=== PATIENT | female | born 1950 | race Caucasian/White ===

== ENCOUNTER → 2016-12-16 | Outpatient (REF) | payer MEDICARE ==
[~2016-12-16] MED LIST: /ESCI20TA PO; /PANT40TA PO; /ROPI1TA PO; AMIT50TA4 PO; AMLO5TAB2 PO; ASPI1TAB PO; ATRO1OPD PO; BACL10TA2 PO; CALC0.5C PO; CALC1CAP31 PO; CALCTAB43 PO; CIPR500T89 PO; CLON-412 PO; CLON0.2T PO; COLA50CA3 PO; DEMA20TA6 PO; DRIS50002 PO; DULO30CA PO; ENAL20TA PO; FERR325T PO; GABA300C3 PO; HUMA100I5 SQ; HYDR-4266 PO; HYDR25T PO; INSUDET SC; INSUHUMDS SC; INSULADS INJ; INSULADS SC; INSULANT SC; LASI40TA PO; LEVO88TA3 PO; LIDO5DIS36 TD; LOPR1TAB6 PO; METF-414 PO; METO-209 PO; METO50TA2 PO; MICR10CA PO; MORP1SOL PO; NITR2PA TD; NYST-6 TOP; NYST10CR TOP; PANT40TA2 PO; ROPI3TAB PO; SPIR25TA2 PO; SYNT88TA2 PO; TOPR25TA PO; TORS20TA2 PO; TRAM50TA2 PO; TYLE325T5 PO; VICO7.5T11 PO; VITA2000 PO; VYTO10TA PO; VYTO10TA41 PO
[2016-12-16 18:49] LABS: TOTAL PROTEIN 5.8 GM/DL (6.4-8.2)
[2016-12-16 18:55] LABS: VITAMIN B12 LEVEL 436 PG/ML (247-911)
[2016-12-16 18:56] LABS: FOLATE 14.9 NG/ML (>5.4)
[2016-12-20 12:57] LABS: ALBUMIN 3.14 GM/DL (3.29-5.55); ALBUMIN % 54.1 % (55.8-66.1); GAMMA GLOBULIN % 13.2 % (11.1-18.8)
[2016-12-21 00:06] LABS: VITAMIN E LEVEL 11.3 mg/L (6.5-21.5)
== END ==
LOC: M LABNEURO 17:06
PROVIDERS: ATTEND Psychiatry & Neurology Neurology
DX: G62.9 Polyneuropathy, unspecified (principal)

== ENCOUNTER → 2016-12-17 | Outpatient (REF) | payer MEDICARE | LOC: M LAB REF 16:58 | PROVIDERS: ATTEND Internal Medicine Nephrology | DX: R19.7 Diarrhea, unspecified (principal) ==

== ENCOUNTER 2017-02-07 19:43 | Emergency (ER) | payer MEDICARE ==
[~2017-02-07] VITALS: Ht 157.5 cm; Wt 84.4 kg
[2017-02-07] MEDS ORDERED: HYDR-3716 PO (20:50)
[2017-02-07] MEDS ORDERED: TOUJ1.2I SC (20:50)
[2017-02-07] MEDS ORDERED: plavix (20:50)
[2017-02-07] MEDS ORDERED: SYNT100T PO (20:50)
[2017-02-07] MEDS ORDERED: ZOFR8TAB PO (20:50)
[2017-02-07] MEDS ORDERED: PLAV75TA38 PO (20:50)
[2017-02-07] MEDS ORDERED: NITR0.4S14 SL (20:50)
--- NOTE | 2017-02-07 21:20 | REPUSA ---
CLINICAL HISTORY: Trauma. TECHNIQUE: Multiple axial CT images were obtained through the brain without IV contrast material. COMMENTS: There is normal configuration of sella turcica. There are no intra or extra-axial collections. There is no mass effect or midline shift. There is no evidence of hematoma formation. No hydrocephalus is p resent. The ventricles are symmetrical. No abnormal calcifications are present. There is diffuse age-appropriate cerebellar and cerebral atrophy with proportionally dilated ventricl es and cortical sulci. There are bilateral periventricular and subcortical white matter hypolucencies compatible with mild c hronic microvascular disease. Otherwise, no significant focal abnormalities are seen either in the posterior fossa or supratentoria l compartment. IMPRESSION: 1. Age-appropriate cerebellar and cerebral atrophy. 2. Mild chronic microvascular disease. 3. No evidence of acute intracranial pathology. Thank you for your kind referral of this patient.
[2017-02-07] MEDS ORDERED: PERCOCET 5MG/325MG TAB PO ONE (22:00)
--- NOTE | 2017-02-07 23:20 | REPUSA ---
CLINICAL HISTORY: Neck pain. Trauma. TECHNIQUE: Multiple axial images were obtained through the cervical spine. Images were also reconstru cted in coronal and sagittal planes. The study was performed without IV contrast. COMMENTS: There is no fracture or spondylolisthesis visualized. The paraspinal soft tissues are unremarkable. T here are no lytic or blastic lesions. Straightening of cervical lordosis is seen, suggesting muscular spasm. There is evidence of minimal m ultilevel disk disease, demonstrated by severe osteophytosis and endplate sclerosis. IMPRESSION: 1. No fracture or spondylolisthesis. 2. Straightening of cervical lordosis is seen, suggesting muscular spasm. 3. Multilevel spondylosis. Thank you for your kind referral of this patient.
--- NOTE | 2017-02-08 00:50 | REPUSA ---
CLINICAL HISTORY: Pain. TECHNIQUE: Multiple axial CT images were obtained without IV contrast material. MPR coronal and sagit benigno sequences are obtained. COMMENTS: There are mild changes of degenerative joint disease. There are changes of calcific tendinosis at the trochanteric insertion of the gluteal tendons. There is subcutaneous soft tissue edema overlying the greater trochanter with associated subcutaneous fat stranding. There is no evidence of fracture or dislocation. There are no lytic or blastic lesions. No soft tissu e masses are present. IMPRESSION: Degenerative joint disease. No fracture. Chronic trochanteric bursitis. Subcutaneous edema and fat stranding with free fluid overlying the greater trochanter. This can secon danis to contusion versus cellulitis. Please evaluate clinically. No drainable/loculated fluid collect ion or soft tissue hematoma. Mild large bowel fecal stasis. Uncomplicated diverticulosis. Distended bladder. Fat containing left inguinal hernia without incarceration. Thank you for your kind referral of this patient.
[2017-02-08] MEDS ORDERED: PERC5TAB6 PO (01:56)
[2017-02-08] MEDS ORDERED: OXYCODONE/APAP 5MG/325MG(BULK FOR ED) 1 TABLET PO ONE (02:00)
[2017-02-08 02:01] VITALS: BP 140/73
--- NOTE | 2017-02-08 08:37 | REP ---
Left shoulder series: Three views. History: Anterior shoulder pain after a fall. Findings: Three views of the left shoulder demonstrate normal alignment of the glenohumeral and acromioclavicular joints. There is mild narrowing of the AC joint. A subcortical cyst is seen in the humeral head. No fracture or subluxation is seen. Impression: No traumatic abnormality noted. Signed by Vel Martinez MD 02/08/2017 01:07 P
--- NOTE | 2017-02-08 08:37 | REP ---
Left elbow series: Four views. History: Elbow pain after a fall. No comparison radiographs. Findings: There is moderate osteoarthritic spurring of the coronoid process, proximal radial head, and trochlea. There is epicondylar spurring medially. There is fragmented spurring at the lateral epicondyle with well corticated ossicles seen. No evidence of joint effusion or acute fracture noted. Impression: Degenerative changes with spurring as above. No fracture seen. Signed by Vel Martinez MD 02/08/2017 01:07 P
--- NOTE | 2017-02-08 08:38 | REP ---
Left hip series: Two views. History: Left hip pain after a fall. Findings: AP and frog-leg views of the left hip show smooth rounded femoral head and intact hip joint space. Some vascular calcification is seen. No fracture is evident. Impression: No fracture noted. Signed by Vel Martinez MD 02/08/2017 01:07 P
== END 2017-02-08 02:18 | disposition home or self-care (01) ==
LOC: M ED 20:48
DX: S70.02XA Contusion of left hip, initial encounter (principal); S40.012A Contusion of left shoulder, initial encounter; W01.0XXA Fall on same level from slipping, tripping and stumbling without subsequent striking against object, initial encounter; Y92.098 Other place in other non-institutional residence as the place of occurrence of the external cause; Y93.89 Activity, other specified; Y99.8 Other external cause status; I12.0 Hypertensive chronic kidney disease with stage 5 chronic kidney disease or end stage renal disease; I25.2 Old myocardial infarction; E11.22 Type 2 diabetes mellitus with diabetic chronic kidney disease; N18.5 Chronic kidney disease, stage 5; G62.9 Polyneuropathy, unspecified; Z79.899 Other long term (current) drug therapy; Z95.5 Presence of coronary angioplasty implant and graft; Z88.8 Allergy status to other drugs, medicaments and biological substances

== ENCOUNTER 2017-03-16 20:33 | Inpatient (IN) | payer MEDICARE ==
[~2017-03-16] VITALS: Ht 157.5 cm; Wt 89.5 kg
[~2017-03-16 20:33] MED LIST changes: -CALC0.5C PO; +CALC0.5C6 PO; +GABA-282 PO; -GABA300C3 PO; +HYDR-3716 PO; +NITR0.4S14 SL; +PERC5TAB6 PO; +PLAV75TA38 PO; +SYNT100T PO; +TOUJ1.2I SC; +ZOFR8TAB PO; +plavix
[2017-03-16] MEDS: traZODone 50 MG TAB PO SCH (21:00)
[2017-03-16 22:22] LABS: DIFF SLIDE NUMBER 350; MEAN CORPUSCULAR HEMOGLOBIN 31.1 pg (27.0-33.0); MEAN CORPUSCULAR VOLUME 100.5 fl (80.0-96.0); PLATELET COUNT, AUTOMATED 146 k/mm3 (150-450); RED CELL DISTRIBUTION WIDTH 16.6 % (11.5-14.5); WHITE BLOOD COUNT 4.9 K/mm3 (4.0-10.0)
[2017-03-16 22:27] LABS: ALBUMIN 2.4 GM/DL (3.2-5.2); CALCIUM LEVEL 7.2 MG/DL (8.8-10.2); CREATININE FOR GFR 2.55 MG/DL (0.55-1.02); GLOMERULAR FILTRATION RATE 19.9 (>45); POTASSIUM SERUM 3.7 MEQ/L (3.5-5.1)
[2017-03-16 22:41] LABS: EOSINOPHILS 3 % (0-5); HYPOCHROMASIA 1+; NUCLEATED RED BLOOD CELL 3 % (0-0); POLYCHROMASIA 1+; SCHISTOCYTES 1+; TEAR DROP CELLS 1+
[2017-03-16 22:42] LABS: ANISOCYTOSIS 1+
[2017-03-17] MEDS ORDERED: ONDANSETRON 4MG/2ML VIAL (J2405) IV PRN (00:15)
[2017-03-17] MEDS ORDERED: VITA100066 PO (00:43)
[2017-03-17] MEDS ORDERED: CALC1TAB17 PO (00:43)
[2017-03-17] MEDS ORDERED: SIMV20TA2 PO (00:43)
[2017-03-17] MEDS ORDERED: ROCA0.5C PO (00:43)
[2017-03-17] MEDS ORDERED: TRAZ50TA4 PO (00:43)
[2017-03-17] MEDS ORDERED: ZETI10TA2 PO (00:43)
[2017-03-17] MEDS ORDERED: TORS100T PO (00:43)
[2017-03-17 01:13] LABS: REASON FOR REVIEW COMPREHENSIVE REVIEW
[2017-03-17] MEDS ORDERED: GLUCOSE 4 GM CHEW TABLET PO PRN (01:15)
[2017-03-17] MEDS ORDERED: NYSTATIN OINTMENT 15 GM TOP PRN ×2 (01:15→01:25)
[2017-03-17] MEDS ORDERED: NITROGLYCERIN 0.4 MG SUBL TABLET SL PRN (01:15)
[2017-03-17] MEDS ORDERED: DEXTROSE 50% 50 ML SYRINGE IV PRN (01:15)
[2017-03-17] MEDS ORDERED: GLUCAGON FOR INJ 1 MG VIAL (J1610) SC PRN (01:15)
[2017-03-17] MEDS ORDERED: ONDANSETRON 4 MG TAB (S0181) PO PRN (01:15)
--- NOTE | 2017-03-17 01:42 | HPEPDOC ---
General Date of Admission Mar 17, 2017 at 00:15 Other Providers lIana Nam Attending Physician: MEETA ROONEY MD Chief Complaint The patient is a 66-year-old female admitted with a reason for visit of Anemia In Esrd. History of Present Illness 66-year-old female with past medical history of end-stage renal disease on hemodialysis Wednesdays and Fridays, CAD, congestive heart failure, hypertension, diabetes mellitus, hypothyroidism, dyslipidemia, anemia of chronic disease, and GERD presented to the ER after she went to dialysis earlier today and was found to have a low hemoglobin level. The patient states that she was told to go to the ER for further evaluation of her anemia and blood transfusion. Upon arrival here in the ER, the patient's hemoglobin level was noted to be 6.7. At baseline, the patient's hemoglobin level appears to be around 10. The patient denies noting any zaira bleeding, however she does state that she has noticed darker color stools over the last few weeks. She states that she has never had an EGD before, but does note having a colonoscopy done 15 + years ago which she states was unremarkable. Also of note, the patient states that she has been feeling increasingly weak over the last 1 month and has had several falls during this time, which required evaluation here in the ED on February 07. The patient states that her generalized weakness, lethargy, and the aforementioned falls caused her to miss one week of dialysis last week. She notes that she has subsequently gained about 15 pounds because of the missed dialysis sessions. However, she does note that she did go to dialysis this week , but her sessions were limited due to cramping. At this time, the patient denies any acute complaints of fevers, chills, shortness of breath, chest pain, palpitations, abdominal pain, or any nausea/vomiting/diarrhea. Home Medications Scheduled ([facility]) 300 Unit/Ml Inj 85 UNIT SC BID (Reported) (Calcium/Vitamin D 500-200 mg-Unit) 1 Tab Tab 1 TAB PO DAILY (Reported) Calcitriol (Rocaltrol) 0.5 Mcg Cap 0.5 MCG PO 5XW (Reported) Cholecalciferol (Vitamin D) 1,000 Unit Tab 2,000 UNIT PO DAILY (Reported) Clopidogrel Bisulfate (Plavix) 75 Mg Tab 75 MG PO DAILY (Reported) Duloxetine Hcl (Cymbalta) 30 Mg Cap 30 MG PO DAILY (Reported) Ezetimibe (Zetia) 10 Mg Tab 10 MG PO QHS (Reported) Ferrous Sulfate (Ferrous Sulfate) 325 Mg Tab 325 MG PO 3XW (Reported) TUESDAY, TUESDAY, TUESDAY Gabapentin (Gabapentin) 300 Mg Cap 300 MG PO BID (Reported) Insulin Human Lispro (Humalog) 1 Units/0.01 Ml Inj 1 DOSE SC ACHS (Reported) PER SLIDING SCALE Levothyroxine Sodium (Synthroid) 100 Mcg Tab 100 MCG PO DAILY (Reported) Metoprolol Tartrate (Metoprolol Tartrate) 50 Mg Tab 50 MG PO BID (Reported) Pantoprazole Sodium (Pantoprazole Sodium) 40 Mg Tab 40 MG PO DAILY (Reported) Ropinirole Hydrochloride (Ropinirole HCl) 3 Mg Tab 6 MG PO TID (Reported) Simvastatin (Simvastatin) 20 Mg Tab 20 MG PO QHS (Reported) Torsemide (Torsemide) 100 Mg Tab 100 MG PO BID (Reported) Trazodone HCl (Trazodone HCl) 50 Mg Tab 50 MG PO QHS (Reported) Scheduled PRN Nitroglycerin (Nitroglycerin) 0.4 Mg Sub 0.4 MG SL NITRO PRN PRN CHEST PAIN ( Reported) Nystatin (Nystatin Oint) 1 Dose/15 Gm Oint 1 DOSE TOP DAILY PRN PRN RASH/ ITCHING (Reported) GROIN AREA Ondansetron HCl (Zofran) 8 Mg Tab 8 MG PO Q6HP PRN PRN NAUSEA (Reported) Tramadol HCl (Tramadol HCl) 50 Mg Tab 100 MG PO BID PRN PRN PAIN (Reported) Allergies Coded Allergies: Pregabalin (Verified Adverse Reaction, Intermediate, CONFUSION, 03/16/17) Past Medical History Medical History As noted in HPI. Surgical History Dialysis graft placement Family History Significant Family History: No pertinent family hx Social History * Smoker: Denies Alcohol: Denies Drugs: denies Review of Symptoms Other systems 10 point review of systems negative unless otherwise specified in HPI. Physical Examination General Exam: Positive: Alert, Cooperative, No Acute Distress ENT Exam: Positive: Atraumatic, Mucous membr. moist/pink Neck Exam: Negative: JVD Chest Exam: Positive: Diminished, Rales (faint bibasilar rales appreciated) Heart Exam: Positive: Normal S1, Normal S2, Rate Normal Abdomen Exam: Positive: Soft, Negative: Tenderness Extremity Exam: Positive: Swelling (2+ pitting edema noted in the lower extremities bilaterally.), Negative: Tenderness Psych Exam: Positive: Oriented x 3 Vital Signs Vital Signs Date Time Temp Pulse Resp B/P Pulse Ox O2 Delivery O2 Flow Rate FiO2 03/17/17 00:57 98.3 66 18 138/63 96 Nasal Cannula 4 Laboratory Data Labs 24H Laboratory Tests 2 03/16/17 21:58: Albumin 2.4L, Blood Urea Nitrogen 28H, Creatinine 2.55H, Sodium Level 142, Potassium Level 3.7, Chloride Level 99, Carbon Dioxide Level 36H, Anion Gap 7L, Anisocytosis 1+, Atypical Lymphocytes 4, Basophilic Stippling 2+, Calcium Level 7.2L, Eosinophils (Manual) 3, Glomerular Filtration Rate 19.9L, Hypochromasia 1+ , Lymphocytes (Manual) 21, Macrocytosis 1+, Monocytes (Manual) 5, Neutrophils 67 , Nucleated Red Blood Cells 3H, Phosphorus Level 3.0, Platelet Estimate DECREASED, Polychromasia 1+, Schistocytes 1+, Tear Drop Cells 1+ 03/17/17 01:02: Differential Pathologist's Review COMPREHENSIVE REVIEW, Differential Slide Review Report, Peripheral Blood Smear Path Consult PERIPHERAL SMEAR CBC/BMP Laboratory Tests 03/16/17 21:58 Anion Gap 7 L, Red Blood Count 2.14 L, Mean Corpuscular Volume 100.5 H, Mean Corpuscular Hemoglobin 31.1, Mean Corpuscular Hemoglobin Concent 31.0 L, Red Cell Distribution Width 16.6 H Plan / VTE VTE Prophylaxis Ordered?: Yes (TEDs) Plan Plan Symptomatic anemia possibly secondary to underlying chronic kidney disease versus possible GI Bleed Admit to med/surg unit Initial hemoglobin noted to be 6.7 Baseline hemoglobin around 10 from 5 months ago No zaira source of bleeding according to the patient, however the patient states that she has been having darker colored stools The patient's Plavix has been held PT, PTT levels ordered Iron studies, stool occult for blood ordered 2 units of packed red blood cells have been ordered to be transfused Consider surgical consultation for possible EGD/colonoscopy if the patient's hemoglobin continues to downward trend End-stage renal disease on hemodialysis Mondays, Wednesdays, and Fridays The patient does appear to have quite a bit of edema as she has missed one week of dialysis sessions last week, and her sessions this week have been limited secondary to cramping Nephrology consult in the a.m. for further evaluation History of falls Physical therapy consulted Hx of CAD, CHF Plavix on Hold / Above Cont Statin, Torsemide, metoprolol Hypertension Continue current regimen Insulin-dependent diabetes mellitus Patient takes 85 units SC of Toujeo BID Given the patient's decreased appetite and weakness, I will start her on Levemir 40 units twice a day for now, consider titration as tolerated Insulin sliding scale for additional coverage Restless leg syndrome Continue ropinirole Diabetic neuropathy Continue duloxetine Hypothyroidism Continue levothyroxine DVT prophylaxis-TEDs The patient will be admitted under the service of Dr. Rooney, who will begin to follow the patient on 03/17/17. JENISE JAIME MD Mar 17, 2017 01:42
[2017-03-17] MEDS ORDERED: BENZONATATE 100 MG CAP PO ONE (02:00)
[2017-03-17] MEDS ORDERED: diphenhydrAMINE 25 MG CAP PO PRN (02:30)
[2017-03-17 02:49] LABS: PERCENT SATURATION 21.1 % (13.2-37.4)
[2017-03-17 03:00] VITALS: BP 133/64
[2017-03-17] MEDS: SIMVASTATIN 20 MG TAB PO SCH ×2 (03:44→20:58)
[2017-03-17] MEDS: EZETIMIBE 10 MG TAB (ZETIA) PO SCH ×2 (03:44→20:58)
[2017-03-17 05:30] LABS: MEAN CORPUSCULAR HEMOGLOBIN 31.9 pg (27.0-33.0); WHITE BLOOD COUNT 6.5 K/mm3 (4.0-10.0)
[2017-03-17 05:37] LABS: INR 1.06
[2017-03-17 05:56] LABS: ALBUMIN 2.5 GM/DL (3.2-5.2); CALCIUM LEVEL 6.9 MG/DL (8.8-10.2); CREATININE FOR GFR 3.21 MG/DL (0.55-1.02); GLOMERULAR FILTRATION RATE 15.3 (>45); PHOSPHORUS LEVEL 3.6 MG/DL (2.5-4.9); POTASSIUM SERUM 4.3 MEQ/L (3.5-5.1)
[2017-03-17 06:00] VITALS: BP 166/74
[2017-03-17] MEDS: LEVOTHYROXINE 0.1 MG TAB (100 MCG) PO SCH (06:30)
[2017-03-17] MEDS: traMADol 50 MG TAB PO PRN (06:30)
[2017-03-17] MEDS: HumaLOG INSULIN (NovoLOG) PER UNIT SC SCH ×4 (08:15→20:56)
[2017-03-17] MEDS: VITAMIN D 1,000 INTERNATIONAL UNITS TABLET PO SCH (08:16)
[2017-03-17] MEDS: rOPINIRole 1MG TAB PO SCH ×3 (08:16→20:57)
[2017-03-17] MEDS: TORSEMIDE 100 MG TAB PO SCH ×2 (08:16→20:57)
[2017-03-17] MEDS: PANTOPRAZOLE 40MG TAB (PROTONIX) PO SCH (08:16)
[2017-03-17] MEDS: GABAPENTIN 300 MG CAP PO SCH ×2 (08:16→20:58)
[2017-03-17] MEDS: DULoxetine 30 MG CAP (CYMBALTA) PO SCH (08:16)
[2017-03-17] MEDS: METOPROLOL TART 50 MG TAB PO SCH ×2 (08:16→20:58)
[2017-03-17] MEDS: CALCITRIOL 0.25 MCG CAP (S0169) PO SCH (08:16)
[2017-03-17] MEDS: LEVEMIR (INSULIN DETEMIR) 1 UNITS/0.01ML SC SCH ×2 (08:17→20:57)
--- NOTE | 2017-03-17 08:20 | REP ---
PA and lateral chest: Comparison is 02/25/2016. There is chronic cardiomegaly. However, the current study there is interstitial coarsening, particularly in the upper lobes, as an interval change compatible with pulmonary vascular engorgement. There is no zaira pulmonary edema. No pleural effusions. There are no focal infiltrates. Impression: Chronic cardiomegaly. Acute pulmonary vascular engorgement. Signed by Aureliano Banks MD 03/17/2017 08:12 A
--- NOTE | 2017-03-17 08:44 | ECGEPIP ---
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
[2017-03-17] MEDS ORDERED: FERROUS SULFATE 325MG TAB PO SCH (09:00)
[2017-03-17] MEDS: ACETAMINOPHEN TAB 650MG DOSE (2X325MG) PO PRN (10:53)
[2017-03-17 11:30] LABS: FOLATE 12.1 NG/ML (>5.4)
[2017-03-17] MEDS ORDERED: DARBEPOETIN 300 MCG/0.6 ML *DIALYSIS* SYRINGE (J0882) IV SCH (11:45)
--- NOTE | 2017-03-17 12:29 | IPN ---
DATE OF VISIT: 03/17/2017 Mrs. Hernandez is seen during hemodialysis this morning. She is lying in the bed without any acute distress. However, she is somewhat restless. We are trying to ultrafiltrate her for 3 liters of fluid removal today due to decompensated volume status. She has generalized edema and dyspnea on exertion. On physical exam, temperature 98 degrees Fahrenheit, heart rate 68 per minute and respiratory rate 18 per minute. Blood pressure 166/74 mmHg and oxygen saturation 94%. Patient has generalized edema and probably mild ascites. She also has pulmonary rales and diminished breath sounds bilaterally. Her neck veins are distended and heart sounds are regular. PROBLEMS: 1. Decompensated volume status with congestive heart failure and end-stage renal disease. Patient is currently being dialyzed and we are ultrafiltrating her for 3 liters of fluid removal today. She is tolerating it well so far. 2. End-stage renal disease. Patient is regularly dialyzed on Tuesday, Tuesday and Tuesday schedule. She did miss dialysis last week. However, she was dialyzed this week on Tuesday and Tuesday. We will schedule her regular dialysis for tomorrow. 3. Anemia. She has symptomatic anemia and received 1 unit of packed red blood cells (RBCs) last evening. She is receiving second unit of packed RBCs today during dialysis. We will recheck her complete blood count (CBC) tomorrow. We will start her on Aranesp 300 mcg once a week and will give her first dose tomorrow. 4. Hypertension. Blood pressure is likely to improve with volume status correction and we will continue with current antihypertensives without any changes. All other issues are being addressed by hospitalist service.
--- NOTE | 2017-03-17 12:53 | CR ---
DATE OF CONSULTATION: 03/17/2017 REFERRING PHYSICIAN: Bonnie Rooney MD Reason for consult is severe anemia, volume overload and generalized weakness in this lady with multiple chronic medical problems. HISTORY OF PRESENT ILLNESS: Mrs. Hernandez is a 66-year-old female with multiple chronic medical problems including insulin-requiring diabetes, hypothyroidism, dyslipidemia, coronary artery disease, congestive heart failure, hypertension, gastroesophageal reflux disease, diabetic retinopathy, legally blind and end-stage renal disease. Patient has history of advanced renal failure and congestive heart failure which was decompensated and not controlled medically so hemodialysis was initiated a few months ago. Patient has been quite irregular with her dialysis treatments and at times she does not show up even for a whole week. She reports frequent falls at home and has developed generalized edema and decompensated volume status. Yesterday, she was found to have a calcium level of 6.0 and hemoglobin 6.7 due to which she was sent to emergency room. She has been admitted with a plan for frequent hemodialysis treatments to correct her volume status, transfuse her and also fix her electrolytes. PAST MEDICAL AND SURGICAL HISTORY: 1. Insulin-requiring diabetes. 2. Hypertension. 3. Dyslipidemia. 4. Hypothyroidism. 5. End-stage renal disease. 6. Coronary artery disease with prior myocardial infarction (CT), coronary artery bypass graft (CABG). 7. History of congestive heart failure. 8. History of anemia of chronic kidney disease. 9. History of severe peripheral neuropathy. 10. Diabetic retinopathy, legally blind. 11. History of depression. MEDICATIONS: Her outpatient medications include: - Toujeo 85 units twice a day - calcium 500 mg twice a day - calcitriol 0.5 mcg with each hemodialysis - vitamin D 1000 units daily - Plavix 75 mg daily - Cymbalta 30 mg daily - Zetia 10 mg daily - ferrous sulfate 325 mg daily - gabapentin 300 mg twice a day - Humalog insulin per sliding scale - levothyroxine 100 mcg daily - Protonix 40 mg daily - Requip 3 mg three times a day - simvastatin 20 mg daily - torsemide 100 mg twice a day - trazodone 50 mg at bedtime - She also uses nitroglycerin as needed and Zofran for nausea as needed. ALLERGIES: There is allergy to PREGABALIN. Past surgical history is significant for AV fistula creation and a Perma-Cath placement prior to that. Family history is negative for end-stage renal disease. PERSONAL AND SOCIAL HISTORY: Patient is and lives with her family. She does not smoke or drink. She denies any drug use. REVIEW OF SYSTEMS: Patient denies any fever or chills. She has been feeling quite weak and has fallen multiple times. She denies any headache. Ears, nose and throat are unremarkable. Cardiovascular system is significant for generalized edema and shortness of breath on exertion. Respiratory system negative for cough or hemoptysis. Gastrointestinal (GI) system is significant for poor appetite. She denies any nausea, vomiting or diarrhea. There is no history of rectal bleeding or black colored stools. Genitourinary () system is negative for dysuria or hematuria. There is no known history of kidney stones. Musculoskeletal system is significant for generalized edema and multiple falls. She reports severe pain in her left shoulder and back. She also has history of peripheral neuropathy. Neurological system is negative for seizures or stroke. Hematological system significant for severe anemia. Psychosocial system significant for depression and anxiety. Endocrine system is significant for diabetes, hypothyroidism and secondary hyperparathyroidism. PHYSICAL EXAMINATION: Patient is awake and alert at the time of my visit. Temperature 98 degrees Fahrenheit, heart rate 68 per minute and respiratory rate 18 per minute. Blood pressure 166/74 mmHg and oxygen saturation 94% on room air. Head is atraumatic. There is mild erythema on her cheeks. She is legally blind. Sclera is anicteric and pupils are reactive to light. Ears, nose and throat are unremarkable. Neck veins are quite prominent. Her neck is supple and mild to moderate thyroid enlargement is also noted. Heart sounds are regular and without pericardial friction rub. Lungs have diminished breath sounds bilaterally with basilar rales. Abdomen soft, distended and nontender. She most likely has ascites. Extremities have no cyanosis or clubbing. She has a left forearm AV fistula. She has generalized edema on lower extremities all the way up to waist. Neurologically, she is awake, alert and oriented times three. She is legally blind. LABORATORY DATA: Last evening her WBC count was 4.9, hemoglobin 6.7 and hematocrit 21.5. Platelets 146. She received 1 unit of packed RBCs and this morning, hemoglobin is 7.5 and hematocrit 24.1. INR was 1.06. Sodium 141 and potassium 4.3. CO2 37, BUN 36 and creatinine 3.21. Calcium level 6.9 and phosphorus 3.6. Albumin 2.5. Chest x-ray showed cardiomegaly and bilateral vascular congestion. PROBLEMS: 1. Decompensated volume status. She does have history of congestive heart failure and also noncompliance with dialysis treatment. She has developed massive volume overload. Our plan is to dialyze her daily for at least 3-4 liters of fluid removal as tolerated. She does get cramps with aggressive fluid removal and we are unable to remove more than 4 liters per day. Patient should remain on 2 grams sodium diet and fluid restriction of 1500 mL per day. 2. Anemia. Most likely this is related to end-stage renal disease, missed dialysis treatments and medications. Her iron level was appropriate last evening. Patient is going to be transfused one more unit of packed RBCs today during dialysis and we will start with Aranesp 300 mcg once a week with first dose to be given on 03/18/2017. 3. End-stage renal disease. Patient is dialysis dependent and has been noncompliant. She was dialyzed yesterday prior to admission. We will plan to dialyze her frequently to correct her volume status over next few days. 4. Hypertension. Blood pressure is likely to improve as her volume status improves. I suggest to not increase her medications until her volume status is corrected. She does get severe cramps and hypotension during dialysis. 5. Secondary hyperparathyroidism. Patient has been placed on calcitriol and vitamin D. We will check her intact PTH level. Thank you for involving me in the care of Mrs. Hernandez. I will follow her along with you.
[2017-03-17 14:00] VITALS: BP 172/72
[2017-03-17] MEDS ORDERED: CYCLOBENZAPRINE 5MG TABLET PO ONE (14:00)
[2017-03-17] MEDS ORDERED: FLEET ENEMA PR PRN (14:00)
[2017-03-17] MEDS ORDERED: CYCLOBENZAPRINE 5MG TABLET PO PRN (14:00)
[2017-03-17] MEDS ORDERED: ANALGESIC BALM CRM 120 GM TOP SCH (18:15)
[2017-03-17] MEDS ORDERED: ANALGESIC BALM CRM 120 GM TOP PRN (18:15)
[2017-03-17] MEDS ORDERED: NYSTATIN OINTMENT 15 GM TOP SCH (18:15)
[2017-03-17 20:10] VITALS: BP 159/70
[2017-03-17] MEDS: traZODone 50 MG TAB PO SCH (20:59)
[2017-03-18] MEDS: PANTOPRAZOLE 40MG TAB (PROTONIX) PO SCH (06:03)
[2017-03-18] MEDS: LEVOTHYROXINE 0.1 MG TAB (100 MCG) PO SCH (06:03)
[2017-03-18] MEDS: GABAPENTIN 300 MG CAP PO SCH ×2 (06:04→20:32)
[2017-03-18] MEDS: DULoxetine 30 MG CAP (CYMBALTA) PO SCH (06:04)
[2017-03-18] MEDS: VITAMIN D 1,000 INTERNATIONAL UNITS TABLET PO SCH (06:04)
[2017-03-18] MEDS: TORSEMIDE 100 MG TAB PO SCH ×2 (06:05→20:30)
[2017-03-18] MEDS: rOPINIRole 1MG TAB PO SCH ×3 (06:05→20:31)
[2017-03-18 06:10] VITALS: BP 140/76
[2017-03-18] MEDS: CALCITRIOL 0.25 MCG CAP (S0169) PO SCH (06:10)
[2017-03-18] MEDS: METOPROLOL TART 50 MG TAB PO SCH ×2 (06:13→20:32)
[2017-03-18] MEDS: FERROUS SULFATE 325MG TAB PO SCH (06:15)
[2017-03-18 06:28] LABS: MEAN CORPUSCULAR HEMOGLOBIN 31.6 pg (27.0-33.0); MEAN CORPUSCULAR HGB CONC 31.9 g/dl (32.0-36.5); RED CELL DISTRIBUTION WIDTH 18.9 % (11.5-14.5); WHITE BLOOD COUNT 6.4 K/mm3 (4.0-10.0)
[2017-03-18 06:55] LABS: ALBUMIN 2.4 GM/DL (3.2-5.2); CALCIUM LEVEL 7.2 MG/DL (8.8-10.2); CREATININE FOR GFR 4.19 MG/DL (0.55-1.02); GLOMERULAR FILTRATION RATE 11.2 (>45); PHOSPHORUS LEVEL 4.4 MG/DL (2.5-4.9); POTASSIUM SERUM 4.1 MEQ/L (3.5-5.1)
[2017-03-18] MEDS: HumaLOG INSULIN (NovoLOG) PER UNIT SC SCH ×4 (07:43→20:33)
[2017-03-18] MEDS: LEVEMIR (INSULIN DETEMIR) 1 UNITS/0.01ML SC SCH ×2 (07:44→20:38)
--- NOTE | 2017-03-18 10:40 | IPNPDOC ---
Subjective Date Seen The patient was seen on 03/18/17. Subjective Chief Complaint/HPI The patient is a 66-year-old female admitted with a reason for visit of Anemia In Esrd. Events since last encounter patient had UF yesterday going for HD today , received 3 units of prbc , no overt bleeding any where. complains of low back pain radiating down both legs through the back down to the foot. also complains of severe left shoulder pain and inability to elevate it at all. No fever or chills, no chest pain , has mild SOB , no cough or phlegm , no nausea or vomiting or diarrhea. Objective Physical Examination General Exam: Positive: Alert, Cooperative, No Acute Distress Eye Exam: Positive: Conjunctiva & lids normal, EOMI, PERRLA, Negative: Sclera icteric ENT Exam: Positive: Atraumatic, Mucous membr. moist/pink Neck Exam: Negative: JVD Chest Exam: Positive: Diminished, Rales (faint bibasilar rales appreciated) Heart Exam: Positive: Normal S1, Normal S2, Rate Normal Abdomen Exam: Positive: Normal bowel sounds, Soft, Negative: Tenderness Extremity Exam: Positive: Edema, Swelling (2+ pitting edema noted in the lower extremities bilaterally.), Negative: Tenderness Skin Exam: Positive: Nl turgor and temperature, Negative: Breakdown, Rash Psych Exam: Positive: Oriented x 3 Assessment /Plan Problems (1) Anemia in ESRD (end-stage renal disease) Status: Acute Problem Text: acute on chronic anemia due to compliance with HD no has not been getting epogen or iron at the HD unit. got 3 units of prbc will receive 1 more today during HD. (2) Fluid overload Status: Acute Problem Text: due to non compliance with HD , Has gained about 10 kgs mrom her estimated dry weight. getting alternating HD and UF . (3) Fall on same level Status: Acute Problem Text: 2-3 falls over the last one month , Has severe peripheral neuropathy , also legally blind , Has poor balance and with non compliance with HD has gained 10 kgs causing severe difficulty in ambulation. Las fall about 1 week ago. complaining of low back pain radiating down the legs. will get CT L-S spine and ct pelvis. (4) Diabetes Status: Chronic (5) Hypertension Status: Chronic (6) Diabetic neuropathy Status: Chronic (7) JUAN on CPAP Status: Chronic (8) Depression Status: Chronic (9) Hyperlipidemia Status: Chronic (10) Hypothyroidism Status: Chronic (11) GERD (gastroesophageal reflux disease) Status: Chronic (12) CAD (coronary artery disease) Status: Chronic (13) Hx of CABG Status: Chronic (14) Diabetic retinopathy Status: Chronic Problem Text: patient is legally blind. (15) Pulmonary hypertension Status: Chronic Problem Text: has chronic right sided heart failure now worse due to fluid overload. (16) Diastolic CHF Status: Acute Problem Text: acute on chronic diastolic chf and right heart failure due to non compliance with HD and fluid overload. COntinue HD and UF as per nephrology . Plan/VTE VTE Prophylaxis Ordered?: Yes (TEDs) VS, I&O, 24H, Fishbone Vital Signs/I&O Vital Signs Date Time Temp Pulse Resp B/P Pulse Ox O2 Delivery O2 Flow Rate FiO2 03/18/17 06:13 58 140/76 03/18/17 06:10 97.7 19 95 Room Air 03/17/17 02:49 4 I&O- Last 24 Hours up to 6 AM 03/18/17 06:00 Intake Total 960 ml Output Total 3800 ml Balance -2840 ml Laboratory Data 24H LABS Laboratory Tests 2 03/17/17 12:48: Bedside Glucose (Misc Panel) 203H 03/17/17 16:18: Bedside Glucose (Misc Panel) 265H 03/17/17 20:11: Bedside Glucose (Misc Panel) 273H 03/18/17 06:05: Albumin 2.4L, Blood Urea Nitrogen 55#H, Creatinine 4.19H, Sodium Level 141, Potassium Level 4.1, Chloride Level 101, Carbon Dioxide Level 34H, Anion Gap 6L , Calcium Level 7.2L, Glomerular Filtration Rate 11.2L, Phosphorus Level 4.4# CBC/BMP Laboratory Tests 03/18/17 06:05 Anion Gap 6 L, Red Blood Count 2.52 L, Mean Corpuscular Volume 99.0 H, Mean Corpuscular Hemoglobin 31.6, Mean Corpuscular Hemoglobin Concent 31.9 L, Red Cell Distribution Width 18.9 H MEETA BARGER MD Mar 18, 2017 10:40
--- NOTE | 2017-03-18 12:50 | IPN ---
DATE: 03/18/2017 Mrs Hernandez is seen this morning on her bedside in hemodialysis. She underwent ultrafiltration yesterday and 3 liters of fluid was removed. After the procedure, she had some muscle cramps and cyclobenzaprine 5 mg was given without much benefit. She is feeling better today and denies any muscle cramps now. She has no chest pain or dyspnea; however, she still has generalized edema. She denies any nausea, vomiting, diarrhea, rectal bleeding or black colored stools. On physical examination, temperature 97.7 degrees Fahrenheit, heart rate 58 per minute and respiratory rate 20 per minute. Blood pressure 140/76 mmHg and oxygen saturation 95% on room air. Face is edematous. Pupils are equal and reactive to light and sclera is anicteric. Neck veins are markedly distended. Neck is supple and without any thyroid enlargement. Heart sounds are regular and lungs with slightly diminished breath sounds bilaterally. Abdomen soft and nontender. Bowel sounds are normal. There is no palpable organomegaly. Extremities have no cyanosis or clubbing. She has at least 2+ peripheral edema. Today's labs show WBC count 6.4, hemoglobin 7.9 and hematocrit 24.9. Platelets 135. Sodium is 141 and potassium 4.1. BUN 55 and creatinine 4.19. Calcium level 7.2 and phosphorus 4.4. Albumin 2.4. PROBLEMS: 1. End-stage renal disease. The patient is being dialyzed today. This is her regular dialysis day and she will complete her 3-1/2 hours dialysis session. She is tolerating dialysis very well so far. 2. Generalized edema and volume overload. She does not tolerate fluid removal very well and gets severe muscle cramps. We will continue with cyclobenzaprine 5 mg as needed for muscle cramps. We are removing only 2 liters of fluid today again. She will have another session of ultrafiltration tomorrow and will try to remove about 2 liters again tomorrow. 3. Anemia. Her iron studies were appropriate, however, anemia is significant. She is receiving two more units of packed red blood cells (RBCs) today. We will check her stool for occult blood to make sure that she is not losing any blood. 4. Hypertension. Blood pressure is reasonably well-controlled and will continue to monitor closely while we are trying to remove fluid. 5. Diabetes. Her diabetes is also reasonably well-controlled while here in the hospital. At home, her diabetes has not been well controlled and her most recent A1c was about 10. 6. Disposition. I would like to keep her here for at least over the weekend and try to dialyze her or ultrafiltrate her every day until her volume status improves.
[2017-03-18 14:00] VITALS: BP 149/59
[2017-03-18] MEDS: traMADol 50 MG TAB PO PRN (14:22)
--- NOTE | 2017-03-18 14:51 | REP ---
CT LUMBAR SPINE WITHOUT CONTRAST: HISTORY: None. There is no disc bulge or herniation at the L1-2 level. The L1 nerves exit the neural foramina without compression. A diffuse disc bulge is present at the L2-3 level. There is calcification of the outer annular fibers. There is hypertrophy of the ligamenta flava and posterior articulating facets. These findings produce minimal central canal stenosis. The L2 nerves exit the neural foramina without compression. A diffuse disc bulge is present at the L3-4 level. There is calcification of the outer annular fibers. There is hypertrophy of the posterior articulating facets. These findings produce mild central canal stenosis. The L3 nerves exit the neural foramina without compression. A diffuse disc bulge is present at the L4-5 level. There is hypertrophy of the ligamenta flava and posterior articulating facets. These findings produce mild central canal stenosis. The L4 nerves exit the neural foramina without compression. A diffuse disc bulge is present at the L5-S1 level. There is minimal compression of the thecal sac. There is hypertrophy of the posterior articulating facets. There is compression of the right L5 nerve in the neural foramen. The left L5 nerve exits the neural foramen without compression. The L2-3 through L5-S1 intervertebral discs are decreased in height. Vacuum phenomenon is present at the L5-S1 level. These findings are consistent with disc degeneration. IMPRESSION: 1. Minimal central canal stenosis at the L2-3 level secondary to disc bulge, ligamentous and facet hypertrophy. 2. Mild central canal stenosis at the L3-4 and L4-5 levels secondary to disc bulge, ligamentous and facet hypertrophy. 3. Diffuse disc bulge at the L5-S1 level with minimal thecal sac compression. There is compression of the right L5 nerve in the neural foramen. Signed by Carmelo Dean MD 03/18/2017 02:56 P
--- NOTE | 2017-03-18 15:39 | REP ---
CT study of the pelvis without contrast: History: "Please include sacrum." Comparison CT study left hip which was done for trauma is from February 07, 2017. Technique: Helical scanning of the pelvis is acquired and 4 mm contiguous axial slices are reformatted. Coronal and sagittal multiplanar reformation images are generated. CT findings: There is no evidence of sacral or coccygeal fracture. No pelvic fracture or hip fracture is appreciated on either side. There is minimal irregularity at the symphysis pubis and there is mild bilateral hip joint osteoarthritis. Minimal spurring of the SI joints is seen. There is a fairly prominent vascular calcification. There is osteoarthritic facet disease in the lower lumbar spine. Impression: Degenerative and osteoarthritic changes. No fracture or other acute bony abnormality. Signed by Vel Martinez MD 03/18/2017 05:02 P
[2017-03-18 16:28] VITALS: BP 158/82
[2017-03-18 20:30] VITALS: BP 170/70
[2017-03-18] MEDS: SIMVASTATIN 20 MG TAB PO SCH (20:31)
[2017-03-18] MEDS: traZODone 50 MG TAB PO SCH (20:32)
[2017-03-18] MEDS: EZETIMIBE 10 MG TAB (ZETIA) PO SCH (20:32)
[2017-03-18] MEDS: ACETAMINOPHEN TAB 650MG DOSE (2X325MG) PO PRN (20:38)
[2017-03-18 23:00] VITALS: BP 155/74
[2017-03-19 05:30] VITALS: BP 180/68
[2017-03-19] MEDS: rOPINIRole 1MG TAB PO SCH ×3 (05:55→20:29)
[2017-03-19] MEDS: VITAMIN D 1,000 INTERNATIONAL UNITS TABLET PO SCH (05:55)
[2017-03-19] MEDS: LEVOTHYROXINE 0.1 MG TAB (100 MCG) PO SCH (05:55)
[2017-03-19] MEDS: PANTOPRAZOLE 40MG TAB (PROTONIX) PO SCH (05:55)
[2017-03-19] MEDS: TORSEMIDE 100 MG TAB PO SCH ×2 (05:56→20:30)
[2017-03-19] MEDS: METOPROLOL TART 50 MG TAB PO SCH ×2 (05:56→20:30)
[2017-03-19] MEDS: GABAPENTIN 300 MG CAP PO SCH ×2 (05:56→20:30)
[2017-03-19] MEDS: DULoxetine 30 MG CAP (CYMBALTA) PO SCH (05:57)
[2017-03-19 06:05] LABS: MEAN CORPUSCULAR HGB CONC 31.8 g/dl (32.0-36.5); MEAN CORPUSCULAR VOLUME 97.5 fl (80.0-96.0); RED CELL DISTRIBUTION WIDTH 17.6 % (11.5-14.5); WHITE BLOOD COUNT 6.7 K/mm3 (4.0-10.0)
[2017-03-19 06:30] LABS: ALBUMIN 2.5 GM/DL (3.2-5.2); CALCIUM LEVEL 7.6 MG/DL (8.8-10.2); CREATININE FOR GFR 3.11 MG/DL (0.55-1.02); GLOMERULAR FILTRATION RATE 15.8 (>45); PHOSPHORUS LEVEL 3.7 MG/DL (2.5-4.9)
[2017-03-19] MEDS: HumaLOG INSULIN (NovoLOG) PER UNIT SC SCH ×4 (08:22→20:31)
[2017-03-19] MEDS: LEVEMIR (INSULIN DETEMIR) 1 UNITS/0.01ML SC SCH ×2 (08:22→20:31)
[2017-03-19] MEDS ORDERED: HEPARIN 1,000 UNITS/ML 10ML VIAL (FOR RADIOLOGY& DIALYSIS ONLY) XX ONE (10:30)
[2017-03-19] MEDS ORDERED: LIDOCAINE 1% SDV 5 ML VIAL SQ ONE (10:30)
--- NOTE | 2017-03-19 10:39 | IPNPDOC ---
Subjective Date Seen The patient was seen on 03/19/17. Subjective Chief Complaint/HPI The patient is a 66-year-old female admitted with a reason for visit of Anemia In Esrd. Events since last encounter cramps better, back pain not too bad when lying in bed worse when bears weight and walks. Sob better, fluid status better. Objective Physical Examination General Exam: Positive: Alert, Cooperative, No Acute Distress Eye Exam: Positive: Conjunctiva & lids normal, EOMI, PERRLA, Negative: Sclera icteric ENT Exam: Positive: Atraumatic, Mucous membr. moist/pink Neck Exam: Negative: JVD Chest Exam: Positive: Diminished, Rales (faint bibasilar rales appreciated) Heart Exam: Positive: Normal S1, Normal S2, Rate Normal Abdomen Exam: Positive: Normal bowel sounds, Soft, Negative: Tenderness Extremity Exam: Positive: Edema, Swelling (2+ pitting edema noted in the lower extremities bilaterally.), Negative: Tenderness Skin Exam: Positive: Nl turgor and temperature, Negative: Breakdown, Rash Psych Exam: Positive: Oriented x 3 Assessment /Plan Problems (1) Anemia in ESRD (end-stage renal disease) Status: Acute Problem Text: acute on chronic anemia due to compliance with HD no has not been getting epogen or iron at the HD unit. got 3 units of prbc will receive 1 more today during HD. (2) Fluid overload Status: Acute Response to Treatment: Improving Problem Text: due to non compliance with HD , Has gained about 10 kgs mrom her estimated dry weight. getting alternating HD and UF . (3) Fall on same level Status: Acute Problem Text: 2-3 falls over the last one month , Has severe peripheral neuropathy , also legally blind , Has poor balance and with non compliance with HD has gained 10 kgs causing severe difficulty in ambulation. Las fall about 1 week ago. complaining of low back pain radiating down the legs. CT scans reviewed no acute fracture or dislocation. Has spinal canal stenosis and right L5 nerve compression in the foraminal canal. (4) Diabetes Status: Chronic (5) Hypertension Status: Chronic (6) Diabetic neuropathy Status: Chronic (7) JUAN on CPAP Status: Chronic (8) Depression Status: Chronic (9) Hyperlipidemia Status: Chronic (10) Hypothyroidism Status: Chronic (11) GERD (gastroesophageal reflux disease) Status: Chronic (12) CAD (coronary artery disease) Status: Chronic (13) Hx of CABG Status: Chronic (14) Diabetic retinopathy Status: Chronic Problem Text: patient is legally blind. (15) Pulmonary hypertension Status: Chronic Problem Text: has chronic right sided heart failure now worse due to fluid overload. (16) Diastolic CHF Status: Acute Problem Text: acute on chronic diastolic chf and right heart failure due to non compliance with HD and fluid overload. COntinue HD and UF as per nephrology . Plan/VTE VTE Prophylaxis Ordered?: Yes (TEDs) VS, I&O, 24H, Fishbone Vital Signs/I&O Vital Signs Date Time Temp Pulse Resp B/P Pulse Ox O2 Delivery O2 Flow Rate FiO2 03/19/17 08:20 Room Air 03/19/17 05:56 57 180/78 03/19/17 05:30 97.4 16 97 03/17/17 02:49 4 I&O- Last 24 Hours up to 6 AM 03/19/17 05:59 Intake Total 1500 ml Output Total 3975 ml Balance -2475 ml Laboratory Data 24H LABS Laboratory Tests 2 03/18/17 14:46: Bedside Glucose (Misc Panel) 109 03/18/17 16:41: Bedside Glucose (Misc Panel) 269H 03/18/17 20:32: Bedside Glucose (Misc Panel) 211H 03/19/17 05:28: Albumin 2.5L, Blood Urea Nitrogen 34H, Creatinine 3.11H, Sodium Level 141, Potassium Level 4.0, Chloride Level 102, Carbon Dioxide Level 32, Anion Gap 7L, Calcium Level 7.6L, Glomerular Filtration Rate 15.8L, Phosphorus Level 3.7 CBC/BMP Laboratory Tests 03/19/17 05:28 Anion Gap 7 L, Red Blood Count 3.45 L, Mean Corpuscular Volume 97.5 H, Mean Corpuscular Hemoglobin 31.0, Mean Corpuscular Hemoglobin Concent 31.8 L, Red Cell Distribution Width 17.6 H Microbiology Microbiology 03/18/17 Stool Occult Blood ([facility]AN[facility]) - Final, Complete MEETA BARGER MD Mar 19, 2017 10:39
--- NOTE | 2017-03-19 12:14 | IPN ---
DATE: 03/19/2017 Mrs. Hernandez is seen this morning on her bedside during hemodialysis. She is currently undergoing ultrafiltration for 3 hours to remove 2.5 liters of fluid. She underwent her regular hemodialysis treatment yesterday. She has received a total of 4 units of packed red blood cells (RBCs) so far due to her severe symptomatic anemia. She also had generalized edema and volume overload due to which she has required frequent hemodialysis or ultrafiltration. PHYSICAL EXAMINATION: She feels well today and denies any acute complaints. Temperature is 97.4 degrees Fahrenheit, heart rate 60 per minute and respiratory rate 16 per minute. Blood pressure 155/70 mmHg and oxygen saturation 97% on room air. Head is atraumatic. Neck veins are still at least moderately distended. She has no oral thrush or ulcers. Pupils are equal and reactive to light and sclera is anicteric. Heart sounds are regular and lungs sound clear to auscultation. Abdomen: Soft and nontender. Bowel sounds are normal. Extremities have 1+ chronic leg edema. She has no cyanosis or clubbing. Skin has no rash or ulcers. Neurologically, she is awake, alert and oriented times three. Today's labs show WBC count 6.7, hemoglobin 10.7 and hematocrit 33.6. Platelets 120. Sodium 141 and potassium 4.0. BUN 34 and creatinine 3.11. Calcium level 7.6 and phosphorus 3.7. Albumin is 2.5. PROBLEMS: 1. End-stage renal disease. The patient is regularly dialyzed on Tuesday, Tuesday and Tuesday schedule. She had her last regular dialysis treatment yesterday. Electrolytes are within normal range. 2. Congestive heart failure/hypervolemia. Volume status is improving with daily hemodialysis or ultrafiltration. Today we are removing 2.5 liters of fluid. She does get severe muscle cramps with aggressive fluid removal so only 2-3 liters can be removed in 1 day. The patient understands to follow fluid restriction of 1500 mL per day and low-sodium diet. 3. Hypertension. Her blood pressure is somewhat high today. We hope that it will improve once we remove more fluid. If her blood pressure remains elevated, then her antihypertensives will be adjusted. 4. Severe symptomatic anemia. Her anemia has improved following transfusion. We have ordered Aranesp and will continue to monitor her closely. No other intervention is indicated at this time. 5. Diabetes. Blood sugars are reasonably well controlled. She will continue with current management.
[2017-03-19 14:00] VITALS: BP 165/60
[2017-03-19 14:15] VITALS: BP 160/72
[2017-03-19] MEDS: ACETAMINOPHEN TAB 650MG DOSE (2X325MG) PO PRN (17:07)
[2017-03-19 20:15] VITALS: BP 190/80
[2017-03-19] MEDS: LOPERAMIDE 2 MG CAP PO PRN ×2 (20:30→21:56)
[2017-03-19] MEDS: EZETIMIBE 10 MG TAB (ZETIA) PO SCH (20:31)
[2017-03-19] MEDS: traZODone 50 MG TAB PO SCH (20:34)
[2017-03-19] MEDS: SIMVASTATIN 20 MG TAB PO SCH (20:34)
[2017-03-19 22:00] VITALS: BP 190/89
[2017-03-20] MEDS: ACETAMINOPHEN TAB 650MG DOSE (2X325MG) PO PRN (04:08)
[2017-03-20 04:15] VITALS: BP 192/68
[2017-03-20] MEDS: LEVOTHYROXINE 0.1 MG TAB (100 MCG) PO SCH (05:36)
[2017-03-20 05:40] VITALS: BP 182/60
[2017-03-20 06:18] LABS: MEAN CORPUSCULAR HEMOGLOBIN 31.6 pg (27.0-33.0); MEAN CORPUSCULAR HGB CONC 32.2 g/dl (32.0-36.5); MEAN CORPUSCULAR VOLUME 98.2 fl (80.0-96.0); RED CELL DISTRIBUTION WIDTH 17.6 % (11.5-14.5); WHITE BLOOD COUNT 8.2 K/mm3 (4.0-10.0)
[2017-03-20 06:38] LABS: ALBUMIN 2.6 GM/DL (3.2-5.2); CALCIUM LEVEL 7.8 MG/DL (8.8-10.2); CREATININE FOR GFR 3.95 MG/DL (0.55-1.02); POTASSIUM SERUM 3.9 MEQ/L (3.5-5.1)
[2017-03-20] MEDS: rOPINIRole 1MG TAB PO SCH ×3 (08:12→21:13)
[2017-03-20] MEDS: PANTOPRAZOLE 40MG TAB (PROTONIX) PO SCH (08:12)
[2017-03-20] MEDS: GABAPENTIN 300 MG CAP PO SCH ×2 (08:13→20:30)
[2017-03-20] MEDS: HumaLOG INSULIN (NovoLOG) PER UNIT SC SCH ×4 (08:13→21:13)
[2017-03-20] MEDS: LEVEMIR (INSULIN DETEMIR) 1 UNITS/0.01ML SC SCH ×2 (08:13→21:14)
[2017-03-20] MEDS: VITAMIN D 1,000 INTERNATIONAL UNITS TABLET PO SCH (08:13)
[2017-03-20] MEDS: DULoxetine 30 MG CAP (CYMBALTA) PO SCH (08:13)
[2017-03-20] MEDS: METOPROLOL TART 50 MG TAB PO SCH ×2 (08:14→20:30)
[2017-03-20] MEDS: TORSEMIDE 100 MG TAB PO SCH ×2 (08:20→20:31)
[2017-03-20] MEDS: amLODIPine 10 MG TAB PO SCH (08:58)
--- NOTE | 2017-03-20 11:17 | IPNPDOC ---
Subjective Date Seen The patient was seen on 03/20/17. Subjective Chief Complaint/HPI The patient is a 66-year-old female admitted with a reason for visit of Anemia In Esrd. Events since last encounter no new complaints. Objective Physical Examination General Exam: Positive: Alert, Cooperative, No Acute Distress Eye Exam: Positive: Conjunctiva & lids normal, EOMI, PERRLA, Negative: Sclera icteric ENT Exam: Positive: Atraumatic, Mucous membr. moist/pink Neck Exam: Negative: JVD Chest Exam: Positive: Diminished, Rales (faint bibasilar rales appreciated) Heart Exam: Positive: Normal S1, Normal S2, Rate Normal Abdomen Exam: Positive: Normal bowel sounds, Soft, Negative: Tenderness Extremity Exam: Positive: Edema, Swelling (2+ pitting edema noted in the lower extremities bilaterally.), Negative: Tenderness Skin Exam: Positive: Nl turgor and temperature, Negative: Breakdown, Rash Psych Exam: Positive: Oriented x 3 Assessment /Plan Problems (1) Anemia in ESRD (end-stage renal disease) Status: Acute Problem Text: acute on chronic anemia due to compliance with HD no has not been getting epogen or iron at the HD unit. got 3 units of prbc will receive 1 more today during HD. (2) Fluid overload Status: Acute Response to Treatment: Improving Problem Text: due to non compliance with HD , Has gained about 10 kgs mrom her estimated dry weight. getting alternating HD and UF . (3) Fall on same level Status: Acute Problem Text: 2-3 falls over the last one month , Has severe peripheral neuropathy , also legally blind , Has poor balance and with non compliance with HD has gained 10 kgs causing severe difficulty in ambulation. Las fall about 1 week ago. complaining of low back pain radiating down the legs. CT scans reviewed no acute fracture or dislocation. Has spinal canal stenosis and right L5 nerve compression in the foraminal canal. (4) Diabetes Status: Chronic (5) Hypertension Status: Chronic (6) Diabetic neuropathy Status: Chronic (7) JUAN on CPAP Status: Chronic (8) Depression Status: Chronic (9) Hyperlipidemia Status: Chronic (10) Hypothyroidism Status: Chronic (11) GERD (gastroesophageal reflux disease) Status: Chronic (12) CAD (coronary artery disease) Status: Chronic (13) Hx of CABG Status: Chronic (14) Diabetic retinopathy Status: Chronic Problem Text: patient is legally blind. (15) Pulmonary hypertension Status: Chronic Problem Text: has chronic right sided heart failure now worse due to fluid overload. (16) Diastolic CHF Status: Acute Problem Text: acute on chronic diastolic chf and right heart failure due to non compliance with HD and fluid overload. COntinue HD and UF as per nephrology . Plan/VTE VTE Prophylaxis Ordered?: Yes (TEDs) VS, I&O, 24H, Fishbone Vital Signs/I&O Vital Signs Date Time Temp Pulse Resp B/P Pulse Ox O2 Delivery O2 Flow Rate FiO2 03/20/17 08:15 Room Air 03/20/17 08:14 67 189/94 03/20/17 05:40 96.9 18 97 03/17/17 02:49 4 I&O- Last 24 Hours up to 6 AM 03/20/17 06:00 Intake Total 1500 ml Output Total 3850 ml Balance -2350 ml Laboratory Data 24H LABS Laboratory Tests 2 03/19/17 12:53: Bedside Glucose (Misc Panel) 223H 03/19/17 16:52: Bedside Glucose (Misc Panel) 330H 03/19/17 20:20: Bedside Glucose (Misc Panel) 352H 03/20/17 05:35: Albumin 2.6L, Blood Urea Nitrogen 49H, Creatinine 3.95H, Sodium Level 139, Potassium Level 3.9, Chloride Level 101, Carbon Dioxide Level 31, Anion Gap 7L, Calcium Level 7.8L, Glomerular Filtration Rate 12.0L, Phosphorus Level 4.0 CBC/BMP Laboratory Tests 03/20/17 05:35 Anion Gap 7 L, Red Blood Count 3.41 L, Mean Corpuscular Volume 98.2 H, Mean Corpuscular Hemoglobin 31.6, Mean Corpuscular Hemoglobin Concent 32.2, Red Cell Distribution Width 17.6 H Microbiology Microbiology 03/18/17 Stool Occult Blood ([facility]AN[facility]) - Final, Complete MEETA BARGER MD Mar 20, 2017 11:17
[2017-03-20] MEDS ORDERED: LOSARTAN 50 MG TAB PO ONE (13:00)
[2017-03-20 14:00] VITALS: BP 200/80
[2017-03-20] MEDS: LOPERAMIDE 2 MG CAP PO PRN ×2 (14:15→21:13)
[2017-03-20] MEDS: cloNIDine 0.1 MG TAB PO SCH ×2 (15:25→20:31)
[2017-03-20 17:36] VITALS: BP 162/78
[2017-03-20] MEDS: EZETIMIBE 10 MG TAB (ZETIA) PO SCH (20:30)
[2017-03-20] MEDS: LOSARTAN 50 MG TAB PO SCH (20:30)
[2017-03-20] MEDS: traZODone 50 MG TAB PO SCH (20:30)
[2017-03-20] MEDS: SIMVASTATIN 20 MG TAB PO SCH (20:31)
--- NOTE | 2017-03-20 21:35 | IPN ---
DATE: 03/20/2017 SUBJECTIVE: Ms. Hernandez is seen this afternoon on her bedside. She is sitting at the edge of her bed at the time of my visit. She reports feeling better and her muscle cramps have improved. She denies any nausea or vomiting. She still has some leg edema and mild dyspnea on exertion. There is no chest pain. She denies any fever or chills. PHYSICAL EXAMINATION VITAL SIGNS: Temperature 97.4 degrees Fahrenheit, heart rate 68 per minute and respiratory rate 20 per minute. Blood pressure 200/80 mmHg and oxygen saturation 98% on room air. HEENT: Head is atraumatic. Ears, nose and throat are unremarkable. Pupils are equal and reactive to light and sclerae are anicteric. NECK: Neck veins are still at least moderately distended. HEART: Sounds are regular. RESPIRATORY: Lungs with minimal basilar rales bilaterally. ABDOMEN: Soft and nontender. Bowel sounds are normal and there is no palpable organomegaly. EXTREMITIES: Have no cyanosis or clubbing. She has at least 2+ peripheral edema. NEUROLOGIC: She is awake, alert and oriented times three. LABORATORY DATA: Today's labs show WBC count 8.2, hemoglobin 10.8 and hematocrit 33.5. Platelets 104. Sodium 139 and potassium 3.9. BUN 49 and creatinine 3.95. Calcium level 7.8 and phosphorus 4.0. Albumin is 2.6. PROBLEMS: 1. Decompensated volume status/congestive heart failure (CHF). Volume status is improved; however, still suboptimal. She is still has significant neck vein distension and peripheral edema. Will try to remove slightly more fluid with next hemodialysis tomorrow compared with previous ones as she did not have any muscle cramps yesterday or Tuesday. 2. Uncontrolled hypertension. Her blood pressure has not improved despite fluid removal. We will add losartan 50 mg at bedtime and also give her one dose of 50 mg now. Blood pressure will be monitored closely. She will continue with other antihypertensive medications. We hope that with further fluid removal, her blood pressure will improve. 4. End-stage renal disease. The patient is scheduled for next regular hemodialysis tomorrow. 5. Anemia. Her anemia has improved following transfusion of four units of packed red blood cells (RBCs). Her stool for occult blood is positive and it remains to be seen whether she will need a repeat endoscopy during this admission or most likely later as an outpatient. 6. Diabetes. Her diabetes is reasonably well controlled. Current management is appropriate.
[2017-03-20 22:00] VITALS: BP 160/78
[2017-03-21 05:38] LABS: MEAN CORPUSCULAR HEMOGLOBIN 31.9 pg (27.0-33.0); MEAN CORPUSCULAR HGB CONC 32.2 g/dl (32.0-36.5); MEAN CORPUSCULAR VOLUME 99.1 fl (80.0-96.0); RED CELL DISTRIBUTION WIDTH 17.9 % (11.5-14.5); WHITE BLOOD COUNT 8.1 K/mm3 (4.0-10.0)
[2017-03-21] MEDS: PANTOPRAZOLE 40MG TAB (PROTONIX) PO SCH (05:41)
[2017-03-21] MEDS: rOPINIRole 1MG TAB PO SCH ×3 (05:41→22:16)
[2017-03-21] MEDS: CALCITRIOL 0.25 MCG CAP (S0169) PO SCH (05:41)
[2017-03-21] MEDS: VITAMIN D 1,000 INTERNATIONAL UNITS TABLET PO SCH (05:41)
[2017-03-21] MEDS: LEVOTHYROXINE 0.1 MG TAB (100 MCG) PO SCH (05:42)
[2017-03-21] MEDS: METOPROLOL TART 50 MG TAB PO SCH ×2 (05:42→22:16)
[2017-03-21] MEDS: amLODIPine 10 MG TAB PO SCH (05:42)
[2017-03-21] MEDS: DULoxetine 30 MG CAP (CYMBALTA) PO SCH (05:42)
[2017-03-21] MEDS: GABAPENTIN 300 MG CAP PO SCH ×2 (05:43→22:18)
[2017-03-21] MEDS: FERROUS SULFATE 325MG TAB PO SCH (05:43)
[2017-03-21] MEDS: cloNIDine 0.1 MG TAB PO SCH ×3 (05:44→21:00)
[2017-03-21 05:47] LABS: ALBUMIN 2.4 GM/DL (3.2-5.2); CALCIUM LEVEL 7.1 MG/DL (8.8-10.2); CREATININE FOR GFR 4.74 MG/DL (0.55-1.02); GLOMERULAR FILTRATION RATE 9.7 (>45); PHOSPHORUS LEVEL 4.7 MG/DL (2.5-4.9)
[2017-03-21] MEDS: TORSEMIDE 100 MG TAB PO SCH ×2 (05:47→22:17)
[2017-03-21 06:00] VITALS: BP 134/72
[2017-03-21] MEDS: HumaLOG INSULIN (NovoLOG) PER UNIT SC SCH ×4 (07:49→22:19)
[2017-03-21] MEDS: LEVEMIR (INSULIN DETEMIR) 1 UNITS/0.01ML SC SCH ×2 (07:49→22:18)
--- NOTE | 2017-03-21 07:49 | IPNPDOC ---
Subjective Date Seen The patient was seen on 03/21/17. Subjective Chief Complaint/HPI The patient is a 66-year-old female admitted with a reason for visit of Anemia In Esrd. Events since last encounter new complaints. Objective Physical Examination General Exam: Positive: Alert, Cooperative, No Acute Distress Eye Exam: Positive: Conjunctiva & lids normal, EOMI, PERRLA, Negative: Sclera icteric ENT Exam: Positive: Atraumatic, Mucous membr. moist/pink Neck Exam: Negative: JVD Chest Exam: Positive: Diminished, Rales (faint bibasilar rales appreciated) Heart Exam: Positive: Normal S1, Normal S2, Rate Normal Abdomen Exam: Positive: Normal bowel sounds, Soft, Negative: Tenderness Extremity Exam: Positive: Edema, Swelling (2+ pitting edema noted in the lower extremities bilaterally.), Negative: Tenderness Skin Exam: Positive: Nl turgor and temperature, Negative: Breakdown, Rash Psych Exam: Positive: Oriented x 3 Assessment /Plan Problems (1) Anemia in ESRD (end-stage renal disease) Status: Acute Problem Text: acute on chronic anemia due to compliance with HD no has not been getting epogen or iron at the HD unit. got 3 units of prbc will receive 1 more today during HD. (2) Fluid overload Status: Acute Response to Treatment: Improving Problem Text: due to non compliance with HD , Has gained about 10 kgs mrom her estimated dry weight. getting alternating HD and UF . (3) Fall on same level Status: Acute Problem Text: 2-3 falls over the last one month , Has severe peripheral neuropathy , also legally blind , Has poor balance and with non compliance with HD has gained 10 kgs causing severe difficulty in ambulation. Las fall about 1 week ago. complaining of low back pain radiating down the legs. CT scans reviewed no acute fracture or dislocation. Has spinal canal stenosis and right L5 nerve compression in the foraminal canal. (4) Diabetes Status: Chronic (5) Hypertension Status: Chronic (6) Diabetic neuropathy Status: Chronic (7) JUAN on CPAP Status: Chronic (8) Depression Status: Chronic (9) Hyperlipidemia Status: Chronic (10) Hypothyroidism Status: Chronic (11) GERD (gastroesophageal reflux disease) Status: Chronic (12) CAD (coronary artery disease) Status: Chronic (13) Hx of CABG Status: Chronic (14) Diabetic retinopathy Status: Chronic Problem Text: patient is legally blind. (15) Pulmonary hypertension Status: Chronic Problem Text: has chronic right sided heart failure now worse due to fluid overload. (16) Diastolic CHF Status: Acute Problem Text: acute on chronic diastolic chf and right heart failure due to non compliance with HD and fluid overload. COntinue HD and UF as per nephrology . Plan/VTE VTE Prophylaxis Ordered?: Yes (TEDs) VS, I&O, 24H, Fishbone Vital Signs/I&O Vital Signs Date Time Temp Pulse Resp B/P Pulse Ox O2 Delivery O2 Flow Rate FiO2 03/21/17 06:00 100.3 60 20 134/72 95 Room Air 03/17/17 02:49 4 I&O- Last 24 Hours up to 6 AM 03/21/17 05:59 Intake Total 600 ml Output Total 2250 ml Balance -1650 ml Laboratory Data 24H LABS Laboratory Tests 2 03/20/17 11:48: Bedside Glucose (Misc Panel) 284H 03/20/17 16:37: Bedside Glucose (Misc Panel) 351H 03/20/17 20:45: Bedside Glucose (Misc Panel) 370H 03/21/17 05:21: Albumin 2.4L, Blood Urea Nitrogen 56H, Creatinine 4.74H, Sodium Level 138, Potassium Level 4.0, Chloride Level 101, Carbon Dioxide Level 27, Anion Gap 10, Calcium Level 7.1L, Glomerular Filtration Rate 9.7L, Phosphorus Level 4.7 CBC/BMP Laboratory Tests 03/21/17 05:21 Anion Gap 10, Red Blood Count 3.34 L, Mean Corpuscular Volume 99.1 H, Mean Corpuscular Hemoglobin 31.9, Mean Corpuscular Hemoglobin Concent 32.2, Red Cell Distribution Width 17.9 H Microbiology Microbiology 03/18/17 Stool Occult Blood (TANMAY) - Final, Complete MEETA BARGER MD Mar 21, 2017 07:49
[2017-03-21] MEDS: LIDOCAINE 5% (LIDODERM) PATCH TD SCH (07:54)
[2017-03-21] MEDS ORDERED: HEPARIN 1,000 UNITS/ML 10ML VIAL (FOR RADIOLOGY& DIALYSIS ONLY) IV ONE (10:00)
[2017-03-21] MEDS ORDERED: LIDOCAINE 1% SDV 5 ML VIAL SQ ONE (10:00)
[2017-03-21] MEDS: ACETAMINOPHEN TAB 650MG DOSE (2X325MG) PO PRN ×2 (10:56→23:10)
--- NOTE | 2017-03-21 12:12 | IPN ---
DATE: 03/21/2017 Mrs. Hernandez is seen this morning on her bedside in hemodialysis. She is currently being dialyzed. She denies any nausea or vomiting. She reports that her dyspnea and leg edema has improved significantly. Her appetite is good. Last week she had four consecutive dialysis or ultrafiltration sessions and tolerated fluid removal reasonably well. This morning, she is complaining of feeling cold and shivering. Her temperature is 100.3 degrees Fahrenheit, heart rate 60 per minute and respiratory rate 20 per minute. Blood pressure 134/72 mmHg and oxygen saturation 95% on room air. She is nontoxic looking. Head is atraumatic. Ears, nose and throat are unremarkable. Neck veins are at least 6-7 cm above sternal angle. Pupils are equal and reactive to light, and sclera is anicteric. Heart sounds are regular and lungs clear to auscultation. Abdomen is soft and nontender. Bowel sounds are normal and there is no palpable organomegaly. Extremities have chronic 2+ leg edema. She has no cyanosis or clubbing. Skin has no rash or ulcers. Neurologically, she is awake, alert and oriented times three. Today's labs show WBC count 8.1, hemoglobin 10.7 and hematocrit 33.1. Platelets 95,000. Sodium 138 and potassium 4.0. BUN 56 and creatinine 4.74. Calcium level is 7.1 and phosphorus 4.7. Albumin 2.4. PROBLEMS: 1. End-stage renal disease. The patient is being dialyzed today. This her regular dialysis day. We will complete 3-1/2-hour dialysis session. 2. Congestive heart failure/hypervolemia. We are trying to remove about 3 liters of fluid today. I have discussed with the patient at length once again about need for compliance with dialysis treatment and fluid restriction. She has history of noncompliance both with fluid restriction and with dialysis treatments. She seems to be understanding and is likely to improve her compliance. 3. Anemia. Her anemia has been stable. She has not had a colonoscopy or upper endoscopy at least for the last 5 years. Her stool was positive for occult blood. We will try to schedule her for upper and lower endoscopy as an outpatient. 4. Hypertension. Her blood pressure was running high yesterday. Her medications were adjusted and today her blood pressure seems reasonably well-controlled. We will continue with current antihypertensives and monitor her in outpatient dialysis clinic. DISPOSITION: From renal standpoint, the patient is likely to be ready for discharge tomorrow. We are trying to remove 3 liters of fluid today. This will help with improvement of her peripheral edema and dyspnea.
[2017-03-21 14:00] VITALS: BP 158/50
[2017-03-21] MEDS ORDERED: **NOTE PATIENT COMMENT** MISC XX SCH (21:00)
[2017-03-21] MEDS: traZODone 50 MG TAB PO SCH (21:00)
[2017-03-21 22:00] VITALS: BP 144/66
[2017-03-21] MEDS: EZETIMIBE 10 MG TAB (ZETIA) PO SCH (22:16)
[2017-03-21] MEDS: SIMVASTATIN 20 MG TAB PO SCH (22:17)
[2017-03-21] MEDS: LOSARTAN 50 MG TAB PO SCH (22:18)
[2017-03-22] MEDS: traMADol 50 MG TAB PO PRN (00:10)
[2017-03-22] MEDS: LEVOTHYROXINE 0.1 MG TAB (100 MCG) PO SCH (05:41)
[2017-03-22 06:00] VITALS: BP 152/64
[2017-03-22 06:31] LABS: MEAN CORPUSCULAR HEMOGLOBIN 32.1 pg (27.0-33.0); MEAN CORPUSCULAR HGB CONC 32.9 g/dl (32.0-36.5); MEAN CORPUSCULAR VOLUME 97.6 fl (80.0-96.0); RED CELL DISTRIBUTION WIDTH 17.9 % (11.5-14.5)
[2017-03-22 06:48] LABS: ALBUMIN 2.5 GM/DL (3.2-5.2); CALCIUM LEVEL 7.9 MG/DL (8.8-10.2); CREATININE FOR GFR 3.91 MG/DL (0.55-1.02); GLOMERULAR FILTRATION RATE 12.2 (>45); PHOSPHORUS LEVEL 4.1 MG/DL (2.5-4.9); POTASSIUM SERUM 3.9 MEQ/L (3.5-5.1)
[2017-03-22] MEDS: HumaLOG INSULIN (NovoLOG) PER UNIT SC SCH ×2 (07:43→12:16)
[2017-03-22] MEDS: LEVEMIR (INSULIN DETEMIR) 1 UNITS/0.01ML SC SCH (07:44)
[2017-03-22] MEDS: PANTOPRAZOLE 40MG TAB (PROTONIX) PO SCH (07:45)
[2017-03-22] MEDS: CALCITRIOL 0.25 MCG CAP (S0169) PO SCH (07:45)
[2017-03-22] MEDS: rOPINIRole 1MG TAB PO SCH (07:45)
[2017-03-22] MEDS: cloNIDine 0.1 MG TAB PO SCH (07:45)
[2017-03-22 07:46] VITALS: BP 144/66
[2017-03-22] MEDS: GABAPENTIN 300 MG CAP PO SCH (07:46)
[2017-03-22] MEDS: DULoxetine 30 MG CAP (CYMBALTA) PO SCH (07:46)
[2017-03-22] MEDS: VITAMIN D 1,000 INTERNATIONAL UNITS TABLET PO SCH (07:46)
[2017-03-22] MEDS: METOPROLOL TART 50 MG TAB PO SCH (07:46)
[2017-03-22] MEDS: amLODIPine 10 MG TAB PO SCH (07:46)
[2017-03-22] MEDS: TORSEMIDE 100 MG TAB PO SCH (07:46)
[2017-03-22] MEDS: LIDOCAINE 5% (LIDODERM) PATCH TD SCH (07:47)
[2017-03-22] MEDS ORDERED: LOSA50TA20 PO (10:15)
--- NOTE | 2017-04-10 22:04 | DSES ---
DATE OF ADMISSION: 03/17/2017 DATE OF DISCHARGE: 03/22/2017 REASON FOR ADMISSION: Anemia and end-stage renal disease. FINAL DIAGNOSES: 1. Anemia status post 3 units of packed red blood cells (RBCs). 2. Fluid overload. 3. Fall. 4. Diabetes 5. Hypertension. 6. Diabetic neuropathy. 7. Obstructive sleep apnea on C-PAP. 8. Depression. 9. Hyperlipidemia. 10. Hypothyroidism. 11. Gastroesophageal reflux disease. 12. Coronary artery disease. 13. History of coronary artery bypass graft (CABG). 14. Pulmonary hypertension. 15. Diastolic congestive heart failure. HISTORY OF PRESENT ILLNESS: The patient is a 66-year-old female with multiple comorbidities who presented to the emergency room after she went to dialysis and was found to have low hemoglobin level. The patient was told to go to the emergency room for further evaluation of her anemia and a possible blood transfusion. In the emergency room the patient was found to have hemoglobin level of 6.7. She states her hemoglobin is usually around 10. She denies any zaira bleeding, any dark colored stool in the last week. She had never had an EGD but she had had a colonoscopy more than 15 years ago. Last month she stated she had been having several falls, feeling increasingly weak, presented to the emergency room on 02/07/2017, for increased generalized weakness, lethargy. She had missed dialysis last week also due to weakness. The patient subsequently had gained 15 pounds because of her missed dialysis session. She was admitted under hospitalist service. HOSPITAL COURSE: The patient was transfused a total of 4 units of packed RBCs during her hospital course mostly during dialysis. She also presented with acute heart failure due to fluid overload. Her occult blood was done here and it was found to be positive. Once the patient's acute symptoms had resolved she was discharged home. The patient was instructed to followup with Dr. Pineda, appointment was made for the patient. She will need a surgical referral outpatient for colonoscopy and an EGD. She is also to followup with Dr. Grullon at dialysis. DISCHARGE CONDITION: Stable. DISCHARGE MEDICATIONS: Include: - losartan 50 mg oral at bedtime - Rocaltrol 0.5 mcg five times a week - vitamin D 2000 units by mouth daily - Plavix 75 mg daily - Cymbalta 30 mg by mouth daily - Zetia 10 mg at bedtime - iron sulfate 325 mg by mouth three times a week - gabapentin 300 mg by mouth twice a day - insulin sliding scale before food and at bedtime - metoprolol 50 mg by mouth twice a day - Synthroid 100 mcg by mouth daily - nitroglycerin 0.4 mg as needed for chest pain - pantoprazole 40 mg daily - ropinirole 6 mg by mouth three times a day - simvastatin 20 mg at bedtime - torsemide 100 mg by mouth twice a day - Toujeo 85 units subcutaneously twice a day - tramadol 100 mg by mouth twice a day as needed for pain - trazodone 50 mg by mouth at bedtime
== END 2017-03-22 12:55 | disposition home or self-care (01) | DRG 682 ==
LOC: M ED 21:34 → M ED INP 03-17 00:15 → M MSPAV 03-17 03:01
PROVIDERS: ADMIT Internal Medicine; ATTEND Internal Medicine
PROC: 30233N1 Transfusion of Nonautologous Red Blood Cells into Peripheral Vein, Percutaneous Approach (ICD-10-PCS; principal; 2017-03-17)
DX: I12.0 Hypertensive chronic kidney disease with stage 5 chronic kidney disease or end stage renal disease (principal); I50.33 Acute on chronic diastolic (congestive) heart failure; N18.6 End stage renal disease; N25.81 Secondary hyperparathyroidism of renal origin; D63.1 Anemia in chronic kidney disease; E11.40 Type 2 diabetes mellitus with diabetic neuropathy, unspecified; G47.33 Obstructive sleep apnea (adult) (pediatric); I25.10 Atherosclerotic heart disease of native coronary artery without angina pectoris; K21.9 Gastro-esophageal reflux disease without esophagitis; E03.9 Hypothyroidism, unspecified; E78.5 Hyperlipidemia, unspecified; F32.9 Major depressive disorder, single episode, unspecified; Z79.899 Other long term (current) drug therapy; Z79.4 Long term (current) use of insulin; Z88.8 Allergy status to other drugs, medicaments and biological substances; Z91.81 History of falling; I25.2 Old myocardial infarction; E11.319 Type 2 diabetes mellitus with unspecified diabetic retinopathy without macular edema; H54.8 Legal blindness, as defined in USA; I27.2 Other secondary pulmonary hypertension

== ENCOUNTER 2017-06-05 21:49 | Inpatient (IN) | payer MEDICARE ==
[~2017-06-05] VITALS: Ht 157.5 cm; Wt 83.2 kg
[~2017-06-05 21:49] MED LIST changes: +CALC1TAB17 PO; -CALCTAB43 PO; +CALCTAB74 PO; +CIPR-249 PO; -CIPR500T89 PO; +FERR1TAB8 PO; -FERR325T PO; +HYDR-3363 PO; +HYDR-3910 PO; -HYDR-4266 PO; -HYDR25T PO; -LIDO5DIS36 TD; +LIDO5DIS41 TD; +LOSA50TA20 PO; -METO-209 PO; +METO1TAB33 PO; -METO50TA2 PO; +METO50TA7 PO; +PERC5TAB12 PO; -PERC5TAB6 PO; +PLAV1TAB2 PO; -PLAV75TA38 PO; +ROCA0.5C PO; +SIMV20TA2 PO; +TORS100T PO; +TRAZ50TA11 PO; +VITA100066 PO; -VYTO10TA PO; +VYTO10TA22 PO; +ZETI10TA30 PO
[2017-06-05] MEDS ORDERED: TORS100T PO (22:21)
[2017-06-05 22:42] LABS: BASO % 0.5 % (0.0-1.0); EOS # 0.2 K/mm3 (0.0-0.50); EOS % 2.7 % (0.0-3.0); LARGE UNSTAINED CELL # 0.1 K/mm3 (0.0-0.4); LARGE UNSTAINED CELL % 1.6 % (0.0-4.0); LYMPH % 13.7 % (24.0-44.0); MEAN CORPUSCULAR HEMOGLOBIN 32.2 pg (27.0-33.0); MEAN CORPUSCULAR HGB CONC 30.9 g/dl (32.0-36.5); MEAN CORPUSCULAR VOLUME 104.3 fl (80.0-96.0); MONO # 0.4 K/mm3 (0.0-0.8); MONO % 6.6 % (0.0-5.0); NEUTROPHILS % 74.8 % (36.0-66.0); PLATELET COUNT, AUTOMATED 135 k/mm3 (150-450); RED CELL DISTRIBUTION WIDTH 14.6 % (11.5-14.5); WHITE BLOOD COUNT 6.6 K/mm3 (4.0-10.0)
[2017-06-05 23:40] LABS: CREATININE FOR GFR 4.56 MG/DL (0.55-1.02); GLOMERULAR FILTRATION RATE 10.2 (>45)
[2017-06-05 23:41] LABS: CALCIUM LEVEL 6.9 MG/DL (8.8-10.2); POTASSIUM SERUM 5.7 MEQ/L (3.5-5.1)
[2017-06-05] MEDS ORDERED: HumuLIN R (REGULAR) INSULIN (NovoLIN R) **100U/ML** PER UNIT IV ONE (23:45)
[2017-06-06] MEDS ORDERED: ACETAMINOPHEN 325 MG TAB As Ordered ONE (00:22)
[2017-06-06] MEDS ORDERED: ACETAMINOPHEN TAB 650MG DOSE (2X325MG) PO ONE (00:30)
[2017-06-06] MEDS ORDERED: ASPIRIN 325 MG TAB PO ONE (01:15)
[2017-06-06] MEDS ORDERED: MORPHINE 4 MG/ML 1ML SYRINGE IV ONE (01:15)
[2017-06-06] MEDS ORDERED: NITROGLYCERIN 2% OINT 1 GM *U/D* PKT TOP ONE (01:15)
--- NOTE | 2017-06-06 01:22 | REP ---
Clinical: Chest pain. Comparison: 03/17/2017. Findings: Cardiac silhouette is upper limits of normal and lung multani demonstrate chronic interstitial changes with suspected superimposed pulmonary venous congestion and interstitial edema. No focal consolidation. No obvious effusion. No pneumothorax. Skeletal structures intact. Impression: Cardiomegaly and chronic changes with pulmonary vascular congestion/interstitial edema suggested. Signed by Israel Guevara MD 06/06/2017 01:13 A
[2017-06-06] MEDS ORDERED: FUROSEMIDE 100 MG/10 ML VIAL (J1940) IV ONE (02:30)
[2017-06-06] MEDS ORDERED: MORPHINE 2 MG/ML 1ML SYRINGE IV ONE (05:00)
[2017-06-06] MEDS ORDERED: ACETAMINOPHEN TAB 650MG DOSE (2X325MG) PO PRN (05:15)
--- NOTE | 2017-06-06 06:00 | ECGEPIP ---
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
[2017-06-06] MEDS ORDERED: TRAZ-136 PO (06:01)
[2017-06-06] MEDS ORDERED: ONDA4TAB5 PO (06:01)
[2017-06-06] MEDS ORDERED: TOPR50TA PO (06:01)
[2017-06-06] MEDS ORDERED: GABA-279 PO (06:01)
--- NOTE | 2017-06-06 06:01 | ECGEPIP ---
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
[2017-06-06] MEDS ORDERED: TOUJ1.2I SC (06:03)
[2017-06-06 06:43] LABS: BASO % 0.6 % (0.0-1.0); EOS # 0.3 K/mm3 (0.0-0.50); EOS % 3.7 % (0.0-3.0); LARGE UNSTAINED CELL # 0.1 K/mm3 (0.0-0.4); LARGE UNSTAINED CELL % 1.6 % (0.0-4.0); LYMPH # 1.2 K/mm3 (1.5-4.5); LYMPH % 15.5 % (24.0-44.0); MEAN CORPUSCULAR HEMOGLOBIN 32.4 pg (27.0-33.0); MEAN CORPUSCULAR HGB CONC 32.2 g/dl (32.0-36.5); MEAN CORPUSCULAR VOLUME 100.7 fl (80.0-96.0); MONO # 0.5 K/mm3 (0.0-0.8); MONO % 6.5 % (0.0-5.0); NEUTROPHILS # 5.2 K/mm3 (1.8-7.7); NEUTROPHILS % 72.1 % (36.0-66.0); PLATELET COUNT, AUTOMATED 155 k/mm3 (150-450); RED CELL DISTRIBUTION WIDTH 14.8 % (11.5-14.5); WHITE BLOOD COUNT 7.2 K/mm3 (4.0-10.0)
[2017-06-06 06:45] VITALS: BP 204/90
[2017-06-06 06:48] LABS: CALCIUM LEVEL 7.8 MG/DL (8.8-10.2); CREATININE FOR GFR 4.5 MG/DL (0.55-1.02); GLOMERULAR FILTRATION RATE 10.3 (>45); POTASSIUM SERUM 5.1 MEQ/L (3.5-5.1)
[2017-06-06 07:40] VITALS: BP 202/74
[2017-06-06] MEDS: HEPARIN SOD (PORCINE) 5000 UNITS/ML VIAL SC SCH ×3 (07:59→21:22)
[2017-06-06] MEDS ORDERED: traMADol 50 MG TAB PO PRN (08:00)
[2017-06-06] MEDS ORDERED: ONDANSETRON 4MG/2ML VIAL (J2405) IV PRN (08:00)
[2017-06-06] MEDS ORDERED: NITROGLYCERIN 0.4 MG SUBL TABLET SL PRN (08:00)
--- NOTE | 2017-06-06 08:42 | HPEPDOC ---
General Date of Admission Jun 06, 2017 at 05:15 Chief Complaint The patient is a 66-year-old female admitted with a reason for visit of Atypical Chest Pain. History of Present Illness This is a 66-year-old female with PMH of ESRD/HD (M/W/F), CAD, CHF, HTN, DM2, hypothyroidism, hyperlipidemia, anemia of chronic disease, chronic diastolic HFpEF (70%-11/10) and GERD admitted for atypical CP. Pt reported substernal non- radiating cp that began at rest about 7pm day prior to admit. Pain was non- exertional and was not associated with N/V, diaphoresis, dyspnea, dizziness, palpitations was not significantly relieved with NTG, although she did report improvement after receiving iv morphine. Pt did receive, nitropaste and 100mg iv lasix since she is oliguric but not anuric. Home Medications Scheduled ([facility]) 300 Unit/Ml Inj, Unknown Dose SC DAILY, (Reported) *AM MED HISTORIAN WILL CALL TO VERIFY DOSE WITH PHARMACY Clopidogrel Bisulfate (Plavix) 75 Mg Tab, 75 MG PO DAILY, (Reported) Duloxetine Hcl (Cymbalta) 30 Mg Cap, 30 MG PO DAILY, (Reported) Ezetimibe (Zetia) 10 Mg Tab, 10 MG PO QHS, (Reported) Gabapentin (Gabapentin) 100 Mg Cap, 300 MG PO QHS, (Reported) Insulin Human Lispro (Humalog) 1 Units/0.01 Ml Inj, 1 DOSE SC ASDIRECTED, ( Reported) PER SLIDING SCALE Levothyroxine Sodium (Synthroid) 100 Mcg Tab, 100 MCG PO DAILY, (Reported) Metoprolol Succinate (Toprol Xl) 50 Mg Tab, 50 MG PO BID, (Reported) Pantoprazole Sodium (Pantoprazole Sodium) 40 Mg Tab, 40 MG PO DAILY, (Reported) Ropinirole Hydrochloride (Ropinirole HCl) 3 Mg Tab, 6 MG PO BID, (Reported) Simvastatin (Simvastatin) 20 Mg Tab, 20 MG PO QHS, (Reported) Torsemide (Torsemide) 100 Mg Tab, 100 MG PO BID, (Reported) Trazodone HCl (Trazodone HCl) 100 Mg Tab, 100 MG PO QHS, (Reported) Scheduled PRN Nitroglycerin (Nitroglycerin) 0.4 Mg Sub, 0.4 MG SL NITRO PRN for CHEST PAIN, ( Reported) Ondansetron HCl (Ondansetron HCl) 4 Mg Tab, 4 MG PO Q6H PRN for NAUSEA, ( Reported) Tramadol HCl (Tramadol HCl) 50 Mg Tab, 100 MG PO BID PRN for PAIN, (Reported) Allergies Coded Allergies: Pregabalin (Verified Adverse Reaction, Intermediate, CONFUSION, 03/16/17) Past Medical History Medical History 1. DM2. 2. Hypertension. 3. Dyslipidemia. 4. Hypothyroidism. 5. ESRD/HD (M/W/F) 6. CAD s/p [place]. 7. Chronic diastolic HFpEF 8. Anemia chronic disease 9. DM neuropathy 10. Diabetic retinopathy, legally blind. 11. RLS 12. JUAN on CPAP 13. Depression. Surgical History 1. CABG. 2. PCI with stents x4. 3. AV fistula L arm. 4. Appendectomy. 5. Hysterectomy. 6. B/L cataract surgery. Review of Symptoms Constitutional: Reports: Malaise, Weakness, Denies: Chills, Fever, Night Sweats Eyes: Denies: Vision change ENT: Denies: Head Aches, Dysphagia Skin: Denies: Rash, Lesions Pulmonary: Denies: Dyspnea, Cough Cardiovascular: Reports: Chest Pain, Edema, Denies: Palpitations, Orthopnea, Paroxysmal Noc. Dyspnea Gastrointestinal: Denies: Nausea, Vomiting, Abdominal Pain Genitourinary: Denies: Dysuria, Frequency Hematologic: Denies: Bruising, Bleeding Excessively Endocrine: Denies: Polydipsia, Polyphagia, Polyuria Musculoskeletal: Reports: Neck Pain, Back Pain Neurological: Denies: Weakness, Numbness, Change in speech Psych: Reports: Mood Normal, Memory Issues, Denies: Anxiety, Depression Physical Examination General Exam: Positive: Alert, Cooperative, No Acute Distress Eye Exam: Positive: Conjunctiva & lids normal, Negative: Sclera icteric ENT Exam: Positive: Atraumatic, Mucous membr. moist/pink Neck Exam: Positive: Supple, Negative: JVD, Lymphadenopathy Chest Exam: Positive: Clear to auscultation, Normal air movement, Negative: Rales, Rhonchi, Wheezing Heart Exam: Positive: Rate Normal, Regular Rhythm, Normal S1, Normal S2, Gallops, Murmurs, Negative: Tachycardic, Bradycardic, Irregular Rhythm Telemetry: Positive: No significant arrhythmia Abdomen Exam: Positive: Normal bowel sounds, Soft, Negative: BS Hyperactive, BS Hypoactive, Tenderness, Hepatospenomegaly Extremity Exam: Negative: Clubbing, Cyanosis, Edema Skin Exam: Positive: Nl turgor and temperature, Negative: Rash, Breakdown Neuro Exam: Positive: Normal Speech, Strength at 5/5 X4 ext, Cranial Nerves 3- 12 NL Psych Exam: Positive: Mental status NL, Mood NL, Oriented x 3 Vital Signs Vital Signs Date Time Temp Pulse Resp B/P (MAP) Pulse Ox O2 Delivery O2 Flow Rate FiO2 06/06/17 07:40 96.7 63 18 202/74 (116) 100 Nasal Cannula 2.0 Laboratory Data Labs 24H Laboratory Tests 2 06/05/17 22:36: White Blood Count 6.6, Red Blood Count 2.23L, Hemoglobin 7.2L, Hematocrit 23.3L , Mean Corpuscular Volume 104.3H, Mean Corpuscular Hemoglobin 32.2, Mean Corpuscular Hemoglobin Concent 30.9L, Red Cell Distribution Width 14.6H, Platelet Count 135L, Neutrophils (%) (Auto) 74.8H, Lymphocytes (%) (Auto) 13.7L , Monocytes (%) (Auto) 6.6H, Eosinophils (%) (Auto) 2.7, Basophils (%) (Auto) 0.5, Neutrophils # (Auto) 5.0, Lymphocytes # (Auto) 1.0L, Monocytes # (Auto) 0.4 , Eosinophils # (Auto) 0.2, Basophils # (Auto) 0.0, Large Unclassified Cells % 1.6, Large Unclassified Cells # 0.1, Anion Gap 9, Glomerular Filtration Rate 10.2L, Blood Urea Nitrogen 49H, Creatinine 4.56H, Sodium Level 132L, Potassium Level 5.7H, Chloride Level 99, Carbon Dioxide Level 24, Calcium Level 6.9L, Total Creatine Kinase 103, Creatine Kinase MB 3.9H, Creatine Kinase MB Relative Index 3.78, Troponin I 0.03 06/06/17 01:36: Bedside Glucose (Misc Panel) 255H 06/06/17 03:58: Total Creatine Kinase 82, Creatine Kinase MB 3.4, Creatine Kinase MB Relative Index 4.14H, Troponin I 0.07# 06/06/17 06:25: White Blood Count 7.2, Red Blood Count 2.38L, Hemoglobin 7.7L, Hematocrit 24.0L , Mean Corpuscular Volume 100.7H, Mean Corpuscular Hemoglobin 32.4, Mean Corpuscular Hemoglobin Concent 32.2, Red Cell Distribution Width 14.8H, Platelet Count 155, Neutrophils (%) (Auto) 72.1H, Lymphocytes (%) (Auto) 15.5L, Monocytes (%) (Auto) 6.5H, Eosinophils (%) (Auto) 3.7H, Basophils (%) (Auto) 0.6 , Neutrophils # (Auto) 5.2, Lymphocytes # (Auto) 1.2L, Monocytes # (Auto) 0.5, Eosinophils # (Auto) 0.3, Basophils # (Auto) 0.0, Large Unclassified Cells % 1.6 , Large Unclassified Cells # 0.1, Anion Gap 5L, Glomerular Filtration Rate 10.3L , Blood Urea Nitrogen 52H, Creatinine 4.50H, Sodium Level 138, Potassium Level 5.1, Chloride Level 105, Carbon Dioxide Level 28, Calcium Level 7.8L CBC/BMP Laboratory Tests 06/05/17 22:36 Red Blood Count 2.23 L, Mean Corpuscular Volume 104.3 H, Mean Corpuscular Hemoglobin 32.2, Mean Corpuscular Hemoglobin Concent 30.9 L, Red Cell Distribution Width 14.6 H, Neutrophils (%) (Auto) 74.8 H, Lymphocytes (%) (Auto ) 13.7 L, Monocytes (%) (Auto) 6.6 H, Eosinophils (%) (Auto) 2.7, Basophils (%) (Auto) 0.5, Neutrophils # (Auto) 5.0, Lymphocytes # (Auto) 1.0 L, Monocytes # ( Auto) 0.4, Eosinophils # (Auto) 0.2, Basophils # (Auto) 0.0, Calcium Level 6.9 L , Total Creatine Kinase 103 06/06/17 06:25 Red Blood Count 2.38 L, Mean Corpuscular Volume 100.7 H, Mean Corpuscular Hemoglobin 32.4, Mean Corpuscular Hemoglobin Concent 32.2, Red Cell Distribution Width 14.8 H, Neutrophils (%) (Auto) 72.1 H, Lymphocytes (%) (Auto ) 15.5 L, Monocytes (%) (Auto) 6.5 H, Eosinophils (%) (Auto) 3.7 H, Basophils (% ) (Auto) 0.6, Neutrophils # (Auto) 5.2, Lymphocytes # (Auto) 1.2 L, Monocytes # (Auto) 0.5, Eosinophils # (Auto) 0.3, Basophils # (Auto) 0.0, Calcium Level 7.8 L Assessment/Plan This is a 66-year-old female with PMH of ESRD/HD (M/W/F), CAD, CHF, HTN, IDDM, hypothyroidism, hyperlipidemia, anemia of chronic disease, chronic diastolic HFpEF (70%-11/10) and GERD admitted for atypical CP 1. Atypical CP-Musculoskeletal v cardiac Pt has hx of cp and 2013 had LE dopplers, v/q scan that was neg. Also saw jaziel (zev although usually saw adeola) and nuclear stress was neg with EF 66%. Pt has had serial trops neg (pain began at 7pm) with trops of 0.02 and 0.07, but will order additional trops to be certain they remain neg Serial ecg Telemonitoring Continue plavix Continue statin Continue zetia Continue beta jeffrey Consider cards consult 2. HTN Continue beta jeffrey Continue torsemide 3. Dyslipidemia Continue statin 4. CAD s/p CABG and PCI with stents Continue plavix Continue statin Continue anti-hypertensives 5. Chronic diastolic HFpEF Continue torsemide 6. IDDM with cardiac, neuro, opthalmic, renal complications-uncontrolled Continue levemir bid FS with coverage Continue duloxetine for neuropathy [id number] (12/14) 7. Hypothyroidism Continue synthroid Recheck TSH-3.75 (12/14) 8. RLS Continue ropinirole 9. Anemia chronic dz Pt Hgb 7.7 which is essentially unhanged from prior admit in february Pt was started on aranesp at that time for anemia chronic dz in setting of ESRD/ HD by dr romero monitor h/h, but would not transfuse at this time 10. DVT prophylaxis Heparin sq Plan / VTE VTE Prophylaxis Ordered?: Yes Cleveland Hanley MD Jun 06, 2017 08:42
[2017-06-06] MEDS ORDERED: GLUCAGON FOR INJ 1 MG VIAL (J1610) SC PRN (08:45)
[2017-06-06] MEDS ORDERED: GLUCOSE 4 GM CHEW TABLET PO PRN (08:45)
[2017-06-06] MEDS ORDERED: DEXTROSE 50% 50 ML SYRINGE IV PRN (08:45)
[2017-06-06] MEDS: LEVOTHYROXINE 100MCG TABLET (0.1MG) PO SCH (09:01)
[2017-06-06] MEDS: DULoxetine 30 MG CAP (CYMBALTA) PO SCH (09:01)
[2017-06-06] MEDS: METOPROLOL SUCC (TopROL XL) 50MG **XL** TAB PO SCH ×2 (09:01→21:22)
[2017-06-06] MEDS: PANTOPRAZOLE 40MG TAB (PROTONIX) PO SCH (09:01)
[2017-06-06] MEDS: CLOPIDOGREL 75 MG TAB PO SCH (09:02)
[2017-06-06] MEDS: rOPINIRole 1MG TAB PO SCH ×2 (10:39→21:23)
[2017-06-06] MEDS: LEVEMIR (INSULIN DETEMIR) 1 UNITS/0.01ML SC SCH ×2 (10:39→21:00)
[2017-06-06] MEDS: TORSEMIDE 100 MG TAB PO SCH ×2 (10:40→19:04)
[2017-06-06 12:00] VITALS: BP 202/70
[2017-06-06] MEDS: HumaLOG INSULIN (NovoLOG) PER UNIT SC SCH ×3 (13:09→21:00)
--- NOTE | 2017-06-06 14:58 | ECGEPIP ---
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 No significant change compared with 06/06/2017 at 1:43 AM. Electronically Signed On 06-06-2017 14:58:03 EDT by Enrrique Saini
[2017-06-06] MEDS ORDERED: HEPARIN 1,000 UNITS/ML 10ML VIAL (FOR RADIOLOGY& DIALYSIS ONLY) IV ONE (16:45)
[2017-06-06 20:00] VITALS: BP 190/85
[2017-06-06] MEDS: traZODone 100 MG TAB PO SCH (21:22)
[2017-06-06] MEDS: SIMVASTATIN 20 MG TAB PO SCH (21:22)
[2017-06-06] MEDS: GABAPENTIN 300 MG CAP PO SCH (21:22)
[2017-06-06] MEDS: EZETIMIBE 10 MG TAB (ZETIA) PO SCH (21:22)
--- NOTE | 2017-06-06 21:52 | CR ---
DATE OF CONSULTATION: 06/06/2017 REQUESTING PHYSICIAN: Tatianna Mc MD CONSULTING PHYSICIAN: Navi Moore MD REASON FOR CONSULTATION: Help in the management of end-stage renal disease, hemodialysis, fluid overload and hypertension. HPI: Dalila Hernandez is a 66-year-old female with past medical history of end-stage renal disease on hemodialysis every Tuesday, Tuesday, Tuesday. Today is her day of dialysis. She has history of hypertension, congestive heart failure (CHF) and diabetes mellitus type 2 along with multiple other comorbidities mentioned below. She presented to the emergency room for chest pain that suddenly started at night when she woke up. The patient also had some shortness of breath. She denies any associated nausea, vomiting or diaphoresis. The patient was found to have systolic blood pressures in 200s on presentation to the emergency room. Chest x-ray done in the emergency room last night showed cardiomegaly and pulmonary vascular congestion along with interstitial edema. The patient was also found to be anemic with a hemoglobin of 7.2. Nephrology service was called for further help in the management of this patient with hypertensive urgency, fluid overload and end-stage renal disease. PAST MEDICAL HISTORY: End-stage renal disease, on hemodialysis every Tuesday, Tuesday, Tuesday. Diabetes mellitus type 2. Hypertension. Hyperlipidemia. Coronary artery disease. History of myocardial infarction ([place]) in the past. Chronic diastolic heart failure with a left ventricle ejection fraction of around 70%. Anemia and chronic kidney disease. Diabetic retinopathy. Legally blind. Obstructive sleep apnea. Depression. PAST SURGICAL HISTORY: History of coronary artery bypass grafting. History of coronary artery stents time four. Status post arteriovenous (AV) fistula placement in the left arm. Status post hysterectomy. Status appendectomy. History of bilateral cataract surgeries in the past. ALLERGIES: The patient is allergic to PREGABALIN. CURRENT INPATIENT MEDICATIONS: The patient's medications include: - Tylenol as needed - aspirin 325 mg by mouth times one dose - Plavix 75 mg daily - Cymbalta 30 mg daily - Zetia 10 mg at bedtime - Lasix 100 mg IV times one dose was given last night - gabapentin 300 mg at bedtime - Levemir 70 units subcutaneous twice a day - lispro sliding scale - levothyroxine 100 mcg by mouth daily - metoprolol 50 mg by mouth twice a day - morphine IV as needed - Zofran IV as needed - Protonix 40 mg by mouth daily - Eliquis 6 mg by mouth twice a day - Zocor 20 mg at bedtime - torsemide 100 mg by mouth twice a day - tramadol 100 mg by mouth twice a day as needed - trazodone 100 mg at bedtime FAMILY HISTORY: No significant family history of end-stage renal disease requiring hemodialysis. SOCIAL HISTORY: The patient denies any drug abuse, alcohol abuse or smoking. REVIEW OF SYSTEMS: CONSTITUTIONAL: The patient denies any fever, chills or weakness at this time. She denies any blurry vision or double vision. ENT: She denies any dysphagia, odynophagia, or ear discharge. CARDIOVASCULAR: The patient reports chest pain and history of coronary artery disease in the past. PULMONARY: The patient reports shortness of breath and orthopnea. GASTROINTESTINAL (GI): She denies any nausea, vomiting or constipation. GENITOURINARY (): She denies any dysuria or hematuria. HEMATOLOGICAL: The patient reports history of anemia secondary to end-stage renal disease. ENDOCRINE: The patient reports diabetes and secondary hyperparathyroidism. MUSCULOSKELETAL: The patient reports back pain and neck pain. CENTRAL NERVOUS SYSTEM: The patient denies any weakness, numbness or seizure disorder. PSYCHIATRIC: The patient reports history of depression. All other review of system is negative. PHYSICAL EXAMINATION: GENERAL: The patient is awake, alert, oriented times three. Sitting in the bed. In mild respiratory distress. VITAL SIGNS: Temperature is 96.7 degrees Fahrenheit. Blood pressure is 202/74, pulse is 63, respiratory rate of 18, saturating 100% on nasal cannula, 2 liters. Intake and output: Urine output recorded as 1 liter overnight. Weight on the bed scale is 84.2 kg. HEAD AND NECK: Extraocular muscles intact. Pupils equal, round and reactive to light. The patient is otherwise legally blind. Mucous membranes are moist. Neck is supple. There is slightly elevated jugular venous distention (JVD). CARDIOVASCULAR: S1, S2, regular rate. No murmur, rub or gallop. RESPIRATORY: Decreased breath sounds at the bases. Mild crepitations at the bases with deep inspiration. ABDOMEN: Soft, positive bowel sounds, nontender. No ascites. No organomegaly. MUSCULOSKELETAL: No clubbing of the extremities. Pulses are 2+. Trace edema of the bilateral lower extremities. PSYCHIATRIC: Normal mood and affect. CENTRAL NERVOUS SYSTEM: No focal neurological deficits, except legal blindness. SKIN: No rashes or ulcers. PSYCHIATRIC: Normal mood affect. LABORATORY REVIEW: CBC showed a WBC 7.2, hemoglobin 7.7, platelets of 155, BMP showed sodium 138, potassium 5.1, chloride 105, bicarbonate 28, BUN 52, creatinine is 4.5. Calcium 7.8. IMAGING: Chest x-ray done today showed cardiomegaly, pulmonary vascular congestion and pulmonary edema. ASSESSMENT: 66-year-old female with past medical history of end-stage renal disease on hemodialysis every Tuesday, Tuesday, Tuesday, congestive heart failure with preserved ejection fraction, hypertension, anemia of chronic kidney disease , admitted this time because of accelerated hypertension, shortness of breath fluid overload. PLAN: 1. Shortness of breath and fluid overload. The patient will be continually dialyzed today. She gets dialyzed according to Tuesday, Tuesday, Tuesday schedule. Today is her day of dialysis anyway. We shall try to remove at least 2.5 to 3 liters of fluid as tolerated by her blood pressure. 2. End-stage renal disease, on hemodialysis. Her regular day of dialysis are Tuesday, Tuesday, Tuesday. We shall dialyze her today for 3-1/2 hours against a 2K bath. 3. Hyperkalemia. Potassium level improved overnight to 5.1. Hemodialysis with 2K bath will help improve potassium further. 4. Hypertensive urgency. Continue home dose of beta jeffrey, metoprolol 50 mg by mouth twice a day. The patient will be dialyzed, hemodialysis and ultrafiltration will also help improve blood pressure. If the patient remains hypertensive despite hemodialysis and ultrafiltration, then she can get hydralazine 10 mg IV every 6 hour as needed. 5. Anemia and end-stage renal disease. The patient's hemoglobin is less than 8. She will get one unit of PRBC transfusion with hemodialysis today. 6. Insulin dependent diabetes mellitus with complications. Continue current dose of Levemir and insulin sliding scale. The rest of the management is as per primary team. Thank you for involving us in the care of this patient. We shall be happy to follow the patient along with you tomorrow morning. Plan of care was discussed with the hospitalist, Dr. Tatianna Mc. SHAAN
[2017-06-07] VITALS: BP 170/76
[2017-06-07 04:00] VITALS: BP 184/84
[2017-06-07] MEDS: LEVOTHYROXINE 100MCG TABLET (0.1MG) PO SCH (05:39)
[2017-06-07] MEDS: HEPARIN SOD (PORCINE) 5000 UNITS/ML VIAL SC SCH ×4 (05:39→21:58)
[2017-06-07] MEDS: HumaLOG INSULIN (NovoLOG) PER UNIT SC SCH ×4 (07:25→20:03)
[2017-06-07 08:00] VITALS: BP 175/70
[2017-06-07 08:23] LABS: MEAN CORPUSCULAR HGB CONC 32.6 g/dl (32.0-36.5); MEAN CORPUSCULAR VOLUME 98.4 fl (80.0-96.0); RED CELL DISTRIBUTION WIDTH 15.5 % (11.5-14.5); WHITE BLOOD COUNT 7.8 K/mm3 (4.0-10.0)
[2017-06-07] MEDS: rOPINIRole 1MG TAB PO SCH ×2 (08:27→21:44)
[2017-06-07] MEDS: TORSEMIDE 100 MG TAB PO SCH ×2 (08:27→17:17)
[2017-06-07] MEDS: LEVEMIR (INSULIN DETEMIR) 1 UNITS/0.01ML SC SCH ×2 (08:27→21:00)
[2017-06-07] MEDS: CLOPIDOGREL 75 MG TAB PO SCH (08:28)
[2017-06-07] MEDS: DULoxetine 30 MG CAP (CYMBALTA) PO SCH (08:28)
[2017-06-07] MEDS: METOPROLOL SUCC (TopROL XL) 50MG **XL** TAB PO SCH ×2 (08:28→21:45)
[2017-06-07] MEDS: PANTOPRAZOLE 40MG TAB (PROTONIX) PO SCH (08:28)
[2017-06-07 09:43] LABS: CALCIUM LEVEL 7.7 MG/DL (8.8-10.2); CREATININE FOR GFR 3.1 MG/DL (0.55-1.02); GLOMERULAR FILTRATION RATE 15.9 (>45); POTASSIUM SERUM 4.5 MEQ/L (3.5-5.1)
[2017-06-07] MEDS: amLODIPine 5 MG TAB PO SCH (10:38)
[2017-06-07] MEDS: ONDANSETRON 4MG/2ML VIAL (J2405) IV PRN (11:31)
[2017-06-07] MEDS ORDERED: DOCUSATE SODIUM 100 MG CAP PO PRN (11:45)
[2017-06-07 12:00] VITALS: BP 178/78
[2017-06-07] MEDS ORDERED: hydrALAZINE INJ 20 MG/ML VIAL IV SCH (14:00)
--- NOTE | 2017-06-07 14:03 | IPNPDOC ---
Subjective Date Seen The patient was seen on 06/07/17. Subjective Chief Complaint/HPI The patient is a 66-year-old female admitted with a reason for visit of Atypical Chest Pain. General: Denies: Chills, Night Sweats Constitutional: Denies: Chills, Fever Eyes: Denies: Pain, Vision change ENT: Denies: Head Aches, Ear Pain Skin: Denies: Rash, Lesions Pulmonary: Denies: Dyspnea, Cough Cardiovascular: Denies: Chest Pain, Palpitations Gastrointestinal: Denies: Nausea, Vomiting, Abdominal Pain Genitourinary: Denies: Dysuria, Frequency Hematologic: Denies: Bruising, Bleeding Excessively Objective Physical Examination General Exam: Positive: Alert, Cooperative, No Acute Distress Eye Exam: Negative: Sclera icteric ENT Exam: Positive: Atraumatic, Mucous membr. moist/pink Neck Exam: Positive: Supple, Negative: JVD, Lymphadenopathy Chest Exam: Positive: Clear to auscultation, Normal air movement, Negative: Rales, Rhonchi, Wheezing Heart Exam: Positive: Rate Normal, Regular Rhythm, Normal S1, Normal S2, Negative: Tachycardic, Bradycardic, Irregular Rhythm Telemetry: Positive: No significant arrhythmia Abdomen Exam: Positive: Normal bowel sounds, Soft, Negative: BS Hyperactive, BS Hypoactive, Tenderness, Hepatospenomegaly Extremity Exam: Negative: Clubbing, Cyanosis, Edema Skin Exam: Negative: Rash, Breakdown Neuro Exam: Positive: Normal Speech, Strength at 5/5 X4 ext Psych Exam: Positive: Mental status NL, Mood NL, Oriented x 3 Assessment /Plan Plan/VTE VTE Prophylaxis Ordered?: Yes Plan Symptomatic anemia The patient's hgb has been downtrending since her last admission in February 2017 for symptomatic anemia when she was found to be positive for stool occult blood and was transfused PRBC's during that admission. At that time, the patient was advised to follow-up as an outpatient for a colonoscopy. However, the patient did not get a chance to do so, and now she returns with a low hgb once again (7.2 on admission) requiring blood transfusion yet again I have reached out to GI, and we will plan an EGD and Colonoscopy for tomorrow with Dr. Beckman Nothing by mouth after midnight Atypical Chest Pain No acute ST Changes noted on EKG Troponins within normal limits here No acute events on Telemetry noted Patient denies any acute c/o chest pain since she had her session of dialysis ESRD on HD Appreciate Nephrology input HTN Continue beta jeffrey, torsemide, Hydralazine Norvasc added this morning Dyslipidemia Continue statin CAD s/p CABG and PCI with stents Continue plavix, BB, statin Chronic diastolic HFpEF Euvolemic at this time Continue torsemide IDDM Continue levemir bid ISS Hypothyroidism Continue synthroid RLS Continue ropinirole DVT prophylaxis Heparin sc VS, I&O, 24H, Fishbone Vital Signs/I&O Vital Signs Date Time Temp Pulse Resp B/P (MAP) Pulse Ox O2 Delivery O2 Flow Rate FiO2 06/07/17 12:00 98.4 64 18 178/78 (111) 97 Room Air 06/06/17 12:27 2.0 I&O- Last 24 Hours up to 6 AM 06/07/17 06:00 Intake Total 1295 ml Output Total 2990 ml Balance -1695 ml Laboratory Data 24H LABS Laboratory Tests 2 06/06/17 17:36: Total Creatine Kinase 80, Creatine Kinase MB 4.7H, Creatine Kinase MB Relative Index 5.87H, Troponin I 0.06# 06/06/17 18:59: Bedside Glucose (Misc Panel) 122H 06/06/17 21:12: Bedside Glucose (Misc Panel) 193H 06/07/17 00:50: Total Creatine Kinase 63, Creatine Kinase MB 3.4, Creatine Kinase MB Relative Index 5.39H, Troponin I 0.06 06/07/17 06:48: Bedside Glucose (Misc Panel) 101 06/07/17 08:06: Anion Gap 9, Glomerular Filtration Rate 15.9L, Blood Urea Nitrogen 28H, Creatinine 3.10H, Sodium Level 137, Potassium Level 4.5, Chloride Level 100, Carbon Dioxide Level 28, Calcium Level 7.7L 06/07/17 11:23: Bedside Glucose (Misc Panel) 289H CBC/BMP Laboratory Tests 06/07/17 08:06 Red Blood Count 2.85 L, Mean Corpuscular Volume 98.4 H, Mean Corpuscular Hemoglobin 32.0, Mean Corpuscular Hemoglobin Concent 32.6, Red Cell Distribution Width 15.5 H, Calcium Level 7.7 L JENISE JAIME MD Jun 07, 2017 14:03
[2017-06-07] MEDS: **hydrALAZINE HCL** 25 MG TAB PO SCH ×3 (14:11→23:58)
[2017-06-07 14:30] VITALS: BP 158/70
[2017-06-07] MEDS ORDERED: GOLYTELY SOLN 4000 ML BTL PO ONE (15:00)
--- NOTE | 2017-06-07 17:19 | IPN ---
DATE: 06/07/2017 SUBJECTIVE: Patient was seen and examined at the bedside today morning. Patient reports that she feels better. Her shortness of breath is improving. Patient was dialyzed yesterday, she tolerated the hemodialysis procedure well. Patient is hypertensive today. REVIEW OF SYSTEMS: Patient denies any fevers, chills, rigors, headache, nausea, vomiting, chest pain. She reports her shortness of breath is better. She denies any pain in abdomen, constipation, or diarrhea. Rest of review of systems is negative. OBJECTIVE: VITAL SIGNS: Temperature is 98.4 degrees Fahrenheit, blood pressure is 178/78, pulse is 64, respiratory rate of 18, saturating at 97% on room air. INTAKE and OUTPUT: Urine output recorded is 600 mL overnight. Hemodialysis was done yesterday, 2.3 liters of fluid was removed. Weight in the bed scale is 81.9 kg. PHYSICAL EXAMINATION: GENERAL: Patient is awake, alert, oriented times three, laying in bed, in no apparent distress. HEAD and NECK EXAM: Extraocular muscles intact. Pupils equally round and reactive to light. Mucous membranes are moist. Neck is supple, there is no jugular venous distention (JVD). CARDIOVASCULAR: S1, S2, irregular rate. No murmur, rub, or gallop. RESPIRATORY: Chest is clear to auscultation bilaterally. Bilateral equal air entry. No rales or rhonchi. ABDOMEN: Soft. Positive bowel sounds. Nontender. No ascites. No organomegaly. MUSCULOSKELETAL: No clubbing or cyanosis. No edema. Pulses are 2+. CENTRAL NERVOUS SYSTEM: No focal neurological deficit. Power is 5/5 in all extremities. LABORATORY REVIEW: CBC showed WBC 7.8, hemoglobin 9.1, platelets of 153. BMP showed sodium 137, potassium 4.5, chloride 100, bicarbonate 28, BUN 28, creatinine 3.1. CURRENT INPATIENT MEDICATIONS: Patient's medications were all reviewed by me. There is no change in the medications today as compared with yesterday. Patient has been started on amlodipine 10 mg by mouth daily and patient is getting GoLYTELY for bowel preparation. ASSESSMENT: 66-year-old female with past medical history of end-stage renal disease on hemodialysis every Tuesday, Tuesday, Tuesday, congestive heart failure with ejection fraction, hypertension, and anemia of chronic kidney disease, admitted at this time because of accelerated hypertension, shortness of breath and fluid overload, along with symptomatic anemia. PLAN: 1. Shortness of breath and fluid overload. Shortness of breath is better. Patient was dialyzed yesterday. Ultrafiltration was done. She reports that her shortness of breath is improved now. 2. End-stage renal disease on hemodialysis. Patient's regular days are Tuesday, Tuesday, Tuesday. No urgent need of hemodialysis today. Next hemodialysis session will be tomorrow. 3. Hypertension. Blood pressure is still uncontrolled at this time. Continue current dose of metoprolol 50 mg by mouth twice a day. I have added amlodipine 5 mg by mouth daily and patient can get hydralazine 10 mg IV every 6 hours as needed for blood pressure more than 160. 4. Anemia in end-stage renal disease and positive fecal occult blood test. Patient was given one unit of packed red blood cell (PRBC) transfusion yesterday with hemodialysis. Patient is getting bowel preparation for possible endoscopy per gastroenterology (GI). The plan of care was discussed with the hospitalist, Dr. Randell Rivera.
--- NOTE | 2017-06-07 18:16 | ECGEPIP ---
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
[2017-06-07] MEDS: traZODone 100 MG TAB PO SCH (21:44)
[2017-06-07] MEDS: GABAPENTIN 300 MG CAP PO SCH (21:44)
[2017-06-07] MEDS: SIMVASTATIN 20 MG TAB PO SCH (21:44)
[2017-06-07] MEDS: EZETIMIBE 10 MG TAB (ZETIA) PO SCH (21:45)
[2017-06-07 22:00] VITALS: BP 144/65
[2017-06-08 06:00] VITALS: BP 120/72
[2017-06-08] MEDS ORDERED: GOLYTELY SOLN 4000 ML BTL PO ONE (06:00)
[2017-06-08] MEDS: **hydrALAZINE HCL** 25 MG TAB PO SCH ×4 (06:11→23:46)
[2017-06-08] MEDS: LEVOTHYROXINE 100MCG TABLET (0.1MG) PO SCH (06:26)
[2017-06-08] MEDS: PANTOPRAZOLE 40MG TAB (PROTONIX) PO SCH (06:29)
[2017-06-08] MEDS: CLOPIDOGREL 75 MG TAB PO SCH (06:29)
[2017-06-08] MEDS: DULoxetine 30 MG CAP (CYMBALTA) PO SCH (06:29)
[2017-06-08] MEDS: METOPROLOL SUCC (TopROL XL) 50MG **XL** TAB PO SCH ×2 (06:30→21:23)
[2017-06-08] MEDS: rOPINIRole 1MG TAB PO SCH ×2 (06:30→21:22)
[2017-06-08] MEDS: amLODIPine 5 MG TAB PO SCH (06:30)
[2017-06-08] MEDS: TORSEMIDE 100 MG TAB PO SCH ×2 (06:31→17:00)
[2017-06-08] MEDS ORDERED: DEXTROSE 50% 50 ML SYRINGE IV STA (07:15)
[2017-06-08] MEDS: HumaLOG INSULIN (NovoLOG) PER UNIT SC SCH ×4 (07:30→21:20)
[2017-06-08 07:46] LABS: MEAN CORPUSCULAR HEMOGLOBIN 32.3 pg (27.0-33.0); MEAN CORPUSCULAR HGB CONC 32.9 g/dl (32.0-36.5); MEAN CORPUSCULAR VOLUME 98.3 fl (80.0-96.0); RED CELL DISTRIBUTION WIDTH 15.2 % (11.5-14.5); WHITE BLOOD COUNT 7.5 K/mm3 (4.0-10.0)
[2017-06-08 08:12] LABS: CALCIUM LEVEL 7.6 MG/DL (8.8-10.2); CREATININE FOR GFR 3.96 MG/DL (0.55-1.02); POTASSIUM SERUM 4.3 MEQ/L (3.5-5.1)
[2017-06-08] MEDS: LEVEMIR (INSULIN DETEMIR) 1 UNITS/0.01ML SC SCH ×2 (09:00→21:21)
[2017-06-08] MEDS: ONDANSETRON 4MG/2ML VIAL (J2405) IV PRN (09:42)
--- NOTE | 2017-06-08 09:53 | IPNPDOC ---
Subjective Date Seen The patient was seen on 06/08/17. Subjective Chief Complaint/HPI The patient is a 66-year-old female admitted with a reason for visit of Atypical Chest Pain. General: Denies: Chills, Night Sweats Constitutional: Denies: Chills, Fever Eyes: Denies: Pain, Vision change ENT: Denies: Head Aches, Ear Pain Skin: Denies: Rash, Lesions Pulmonary: Denies: Dyspnea, Cough Cardiovascular: Denies: Chest Pain, Palpitations Gastrointestinal: Denies: Nausea, Vomiting Objective Physical Examination General Exam: Positive: Alert, Cooperative, No Acute Distress Eye Exam: Negative: Sclera icteric ENT Exam: Positive: Atraumatic, Mucous membr. moist/pink Neck Exam: Positive: Supple, Negative: JVD, Lymphadenopathy Chest Exam: Positive: Clear to auscultation, Normal air movement, Negative: Rales, Rhonchi, Wheezing Heart Exam: Positive: Rate Normal, Regular Rhythm, Normal S1, Normal S2, Negative: Tachycardic, Bradycardic, Irregular Rhythm Telemetry: Positive: No significant arrhythmia Abdomen Exam: Positive: Normal bowel sounds, Soft, Negative: BS Hyperactive, BS Hypoactive, Tenderness, Hepatospenomegaly Extremity Exam: Negative: Clubbing, Cyanosis, Edema Skin Exam: Negative: Rash, Breakdown Neuro Exam: Positive: Normal Speech, Strength at 5/5 X4 ext Psych Exam: Positive: Mental status NL, Mood NL, Oriented x 3 Assessment /Plan Plan/VTE VTE Prophylaxis Ordered?: Yes Plan Symptomatic anemia Patient's hgb stable following transfusion of 1 Unit of PRBC on 06/06/17 Patient scheduled for an EGD and Colonoscopy today with Dr. Beckman We will follow up with the results Atypical Chest Pain No acute ST Changes noted on EKG Troponins within normal limits here No acute events on Telemetry noted Patient denies any acute c/o chest pain since she had her session of dialysis ESRD on HD Appreciate Nephrology input HTN Continue beta jeffrey, torsemide, Hydralazine Norvasc added this morning B/P better controlled this morning Dyslipidemia Continue statin CAD s/p CABG and PCI with stents Continue plavix, BB, statin Chronic diastolic HFpEF Euvolemic at this time Continue torsemide IDDM Continue levemir bid ISS Hypothyroidism Continue synthroid RLS Continue ropinirole DVT prophylaxis Heparin sc Dispo--Anticipate D/C in the next 24-48hrs pending clinical improvement VS, I&O, 24H, Fishbone Vital Signs/I&O Vital Signs Date Time Temp Pulse Resp B/P (MAP) Pulse Ox O2 Delivery O2 Flow Rate FiO2 06/08/17 06:30 67 120/72 06/08/17 06:00 97.1 17 97 Room Air 06/06/17 12:27 2.0 I&O- Last 24 Hours up to 6 AM 06/08/17 06:00 Intake Total 3080 ml Output Total 1000 ml Balance 2080 ml Laboratory Data 24H LABS Laboratory Tests 2 06/07/17 11:23: Bedside Glucose (Misc Panel) 289H 06/07/17 16:25: Bedside Glucose (Misc Panel) 313H 06/07/17 20:00: Bedside Glucose (Misc Panel) 115 06/08/17 07:02: Bedside Glucose (Misc Panel) 53L 06/08/17 07:37: Anion Gap 8, Glomerular Filtration Rate 12.0L, Blood Urea Nitrogen 37H, Creatinine 3.96H, Sodium Level 138, Potassium Level 4.3, Chloride Level 100, Carbon Dioxide Level 30, Calcium Level 7.6L 06/08/17 07:44: Bedside Glucose (Misc Panel) 101 CBC/BMP Laboratory Tests 06/08/17 07:37 Red Blood Count 3.18 L, Mean Corpuscular Volume 98.3 H, Mean Corpuscular Hemoglobin 32.3, Mean Corpuscular Hemoglobin Concent 32.9, Red Cell Distribution Width 15.2 H, Calcium Level 7.6 L JENISE JAIME MD Jun 08, 2017 09:53
[2017-06-08] MEDS ORDERED: HEPARIN 1,000 UNITS/ML 10ML VIAL (FOR RADIOLOGY& DIALYSIS ONLY) IV ONE (10:45)
[2017-06-08] MEDS ORDERED: LIDOCAINE 1% SDV 5 ML VIAL SQ ONE (10:45)
[2017-06-08] MEDS: HEPARIN SOD (PORCINE) 5000 UNITS/ML VIAL SC SCH ×2 (14:00→21:23)
[2017-06-08 14:25] VITALS: BP 150/78
--- NOTE | 2017-06-08 15:54 | CR ---
DATE OF CONSULTATION: 06/07/2017 HISTORY OF PRESENT ILLNESS: This is a 66-year-old white female who was admitted to [facility] ([facility]) on 06/06/2017. The patient is being seen by gastroenterology (GI) for evaluation of anemia. The patient presents with multiple medical problems including end-stage renal disease, coronary artery disease, congestive heart failure, hypertension, diabetes mellitus type 2, hypothyroidism, hyperlipidemia, and apparent anemia of chronic disease. The patient has a known history of reflux. She was admitted for substernal, nonradiating chest pain which began approximately a day prior to admission. No complaints of nausea, vomiting, fevers, night sweats, shaking chills, dyspnea on exertion, or palpitations. She was admitted for observation for the chest pain and the anemia. MEDICATIONS: - Plavix 75 mg a day - Cymbalta - Zetia - gabapentin - Humalog - Synthroid - Toprol - pantoprazole - allopurinol - simvastatin - furosemide - trazodone ALLERGIES: Known allergies include PREGABALIN which causes some confusion. PAST MEDICAL HISTORY: Positive for: 1. Diabetes mellitus. 2. Hypertension. 3. Dyslipidemia. 4. Hypothyroidism. 5. End-stage renal disease. 6. Coronary artery disease status post previous myocardial infarctions. 7. Chronic diastolic disease. 8. Anemia of chronic disease with a new onset of worsening of her anemia. 9. Diabetic neuropathy. 10. Depression. PAST SURGICAL HISTORY: Positive for: 1. Coronary artery bypass graft. 2. The patient has four stents. 3. Arteriovenous fistula in the left arm. 4. Appendectomy. 5. Hysterectomy. 6. Bilateral cataract surgery. REVIEW OF SYSTEMS: Noncontributory to the above problem. PHYSICAL EXAMINATION: GENERAL: Well-developed, well-nourished white female in no obvious acute distress. Appears stated age. CHEST: Clear to auscultation. CARDIOVASCULAR: Examination showed a regular rate and rhythm. No murmurs or gallops. Normal physiological split. S1, S2. ABDOMEN: Soft, nontender. No masses. No guarding or rebound. No hepatosplenomegaly. Bowel sounds positive. EXTREMITIES: No cyanosis, clubbing, or edema. Jessica's negative. ANALYSIS: Anemia of unclear etiology on top of a patient with known anemia of chronic disease. The patient's laboratory studies on admission showed a hemoglobin of 7.2, hematocrit 23.3, MCV 104.3, platelets were 135,000. The patient's white count on 06/07/2017 711 was 9 and 28. The patient was given one unit of packed cells. The patient has no history of hematemesis, melena, hematochezia, or bright red blood per rectum. The patient apparently has had a previous colonoscopy over 10 years ago. She denies any change in bowel habits, abdominal pain or involuntary weight loss. We are going to set the patient up for upper and lower endoscopy the same day for further evaluation of the anemia.
--- NOTE | 2017-06-08 16:20 | IPN ---
DATE: 06/06/2017 Mrs. Hernandez was seen this morning during hemodialysis. She was initially admitted with chest pain, shortness of breath and generalized weakness. She has multiple chronic medical problems including diabetes, hypertension, congestive heart failure, recurrent anemia, end-stage renal disease, severe peripheral neuropathy and coronary artery disease. She is being prepared for upper and lower endoscopy today due to recurrent anemia and heme-positive stools. She has received 1 unit of packed RBCs. She denies any fever or chills. She has no dyspnea or chest pain at present. She does have chronic lower extremity edema. She remains generally weak and reports dizziness and peripheral neuropathy. PHYSICAL EXAMINATION: Temperature 97.1 degrees Fahrenheit, heart rate 68 per minute and respiratory rate 18 per minute. Blood pressure 120/72 mmHg and oxygen saturation 97% on room air. Head: Is atraumatic. Neck is supple and without JVD or thyroid enlargement. Oral mucosa is moist and healthy. Pupils equal and reactive to light and sclera is anicteric. Heart: Sounds are regular and lungs with slightly diminished breath sounds at bases. Abdomen: Soft and nontender and without a palpable organomegaly. Bowel sounds are normal. Extremities have no cyanosis or clubbing. She has lower extremity edema which is at least 2+ bilaterally. Left arm AV fistula is functioning well. Neurologically she is awake, alert and oriented times three. Today's labs show WBC count 7.5, hemoglobin 10.3 and hematocrit 31.3. Sodium 138 and potassium 4.3. BUN 37 and creatinine 3.96. Calcium level is 7.6. PROBLEMS: 1. End-stage renal disease. The patient is currently being dialyzed. She is tolerating her dialysis treatment very well. We are trying to remove about 3 liters of fluid as tolerated. 2. Recurrent anemia with heme-positive stools. The patient did receive her bowel preparation and is scheduled for endoscopy later this afternoon. She is medically stable for the procedure. 3. Hypertension. Her blood pressure is variable and depends on her volume status in addition to her end-stage renal disease. She is volume overloaded at present and we are trying to remove about 3 liters of fluid which will help with her blood pressure control. 4. Diabetes with associated complications. The patient has history of poorly controlled diabetes for a number of years. She also has severe peripheral neuropathy, diabetic retinopathy and nephropathy leading to end-stage renal disease. Her diabetes control is much better in the hospital, however, it has been very poor out of hospital. Suggest to continue with current management. 5. Chest pain. The patient has been chest pain free now. Her troponin was negative times three. Her CPKs were also within normal range. She will continue with her chronic medications.
[2017-06-08] MEDS ORDERED: PROPOFOL 500 MG/50 ML VIAL As Ordered ONE (16:59)
[2017-06-08] MEDS ORDERED: PROPOFOL 200 MG/20 ML VIAL As Ordered ONE (16:59)
[2017-06-08] MEDS ORDERED: LIDOCAINE 2% INJ 100 MG/5 ML SDV (FOR ANES.) As Ordered ONE (16:59)
[2017-06-08] MEDS ORDERED: ePHEDrine SULFATE 25 MG/5 ML(5MG/ML) SYRINGE As Ordered ONE (17:07)
--- NOTE | 2017-06-08 17:47 | ROOR ---
Patient Name: Dalila Hernandez Procedure Date: 06/08/2017 3:21 PM Date of : 1950 Age: 66 Room: [facility] Gender: Female Note Status: Finalized Procedure: Upper GI endoscopy Indications: Iron deficiency anemia Providers: Marco Beckman MD Referring MD: Maia Grullon MD Requesting Provider: Medicines: Monitored Anesthesia Care Complications: No immediate complications. Procedure: Pre-Anesthesia Assessment: - The heart rate, respiratory rate, oxygen saturations, blood pressure, adequacy of pulmonary ventilation, and response to care were monitored throughout the procedure. The Endoscope was introduced through the mouth, and advanced to the second part of duodenum. The upper GI endoscopy was accomplished without difficulty. The patient tolerated the procedure well. Findings: The Z-line was regular and was found 35 cm from the incisors. The exam was otherwise without abnormality. Mild gastric antral vascular ectasia without bleeding was present in the gastric antrum. The exam of the duodenum was otherwise normal. Impression: - Z-line regular, 35 cm from the incisors. - The examination was otherwise normal. - Gastric antral vascular ectasia without bleeding. - No specimens collected. - The examination was otherwise normal. Recommendation: - [facility]. - Continue present medications. - The findings and recommendations were discussed with the patient's family. Marco Beckman MD Marco Beckman MD 06/08/2017 5:47:07 PM This report has been signed electronically. Number of Addenda: 0 Note Initiated On: 06/08/2017 3:21 PM Estimated Blood Loss: Estimated blood loss: none.
--- NOTE | 2017-06-08 17:52 | ROOR ---
Patient Name: Dalila Hernandez Procedure Date: 06/08/2017 3:21 PM Date of : 1950 Age: 66 Room: Main OR Gender: Female Note Status: Finalized Procedure: Total Colonoscopy to Cecum + Cold Snare Polypectomy + Hemoclips Indications: Iron deficiency anemia Providers: Marco Beckman MD Referring MD: Maia Grullon MD Requesting Provider: Medicines: Monitored Anesthesia Care Complications: No immediate complications. Procedure: Pre-Anesthesia Assessment: - The heart rate, respiratory rate, oxygen saturations, blood pressure, adequacy of pulmonary ventilation, and response to care were monitored throughout the procedure. The Colonoscope was introduced through the anus and advanced to the cecum, identified by appendiceal orifice and ileocecal valve. The colonoscopy was performed without difficulty. The patient tolerated the procedure well. The quality of the bowel preparation was good. Findings: The perianal and digital rectal examinations were normal. Non-bleeding internal hemorrhoids were found during retroflexion. The hemorrhoids were small and Grade I (internal hemorrhoids that do not prolapse). A medium polyp was found in the rectum. The polyp was carpet-like. The polyp was removed with a cold snare. Polyp resection was incomplete. The resected tissue was retrieved. To prevent bleeding after the polypectomy, one hemostatic clip was successfully placed (MR conditional). There was no bleeding at the end of the procedure. Multiple small and large-mouthed diverticula were found in the recto-sigmoid colon, sigmoid colon and descending colon. A medium polyp was found in the mid ascending colon. The polyp was sessile. The polyp was removed with a cold snare. Resection and retrieval were complete. To prevent bleeding after the polypectomy, two hemostatic clips were successfully placed (MR conditional). There was no bleeding at the end of the procedure. Multiple semi-pedunculated polyps were found in the entire colon. The polyps were medium in size. These polyps were removed with a cold snare. Resection and retrieval were complete. To prevent bleeding after the polypectomy, five hemostatic clips were successfully placed (MR conditional). There was no bleeding at the end of the procedure. The exam was otherwise without abnormality on direct and retroflexion views. Impression: - Non-bleeding internal hemorrhoids. - One medium polyp in the rectum, removed with a cold snare. Incomplete resection. Resected tissue retrieved. Clip (MR conditional) was placed. - Diverticulosis in the recto-sigmoid colon, in the sigmoid colon and in the descending colon. - One medium polyp in the mid ascending colon, removed with a cold snare. Resected and retrieved. Clips (MR conditional) were placed. - Multiple medium polyps in the entire colon, removed with a cold snare. Resected and retrieved. Clips (MR conditional) were placed. - The examination was otherwise normal on direct and retroflexion views. - The exam was otherwise normal to the cecum. Recommendation: - Patient has a contact number available for emergencies. The signs and symptoms of potential delayed complications were discussed with the patient. Return to normal activities tomorrow. Written discharge instructions were provided to the patient. - Resume previous diet. - [facility]. - Continue present medications. - Await pathology results. - Repeat colonoscopy for surveillance based on pathology results. - Return to referring physician. - The findings and recommendations were discussed with the patient's family. Marco Beckman MD Marco Beckman MD 06/08/2017 5:52:03 PM This report has been signed electronically. Number of Addenda: 0 Note Initiated On: 06/08/2017 3:21 PM Estimated Blood Loss: Estimated blood loss: none.
[2017-06-08] MEDS ORDERED: ONDANSETRON 4MG/2ML VIAL (J2405) IV PRN (18:00)
[2017-06-08] MEDS ORDERED: LR 1,000 ML IV SCH (18:00)
[2017-06-08] MEDS ORDERED: fentaNYL 100 MCG/2 ML INJECTION (J3010) IV PRN (18:00)
[2017-06-08 18:25] VITALS: BP 154/91
[2017-06-08 18:40] VITALS: BP 162/70
[2017-06-08 19:10] VITALS: BP 160/70
[2017-06-08 20:35] VITALS: BP 135/63
[2017-06-08] MEDS: traZODone 100 MG TAB PO SCH (21:21)
[2017-06-08] MEDS: EZETIMIBE 10 MG TAB (ZETIA) PO SCH (21:21)
[2017-06-08] MEDS: GABAPENTIN 300 MG CAP PO SCH (21:21)
[2017-06-08] MEDS: SIMVASTATIN 20 MG TAB PO SCH (21:22)
[2017-06-09 05:40] VITALS: BP 152/60
[2017-06-09] MEDS: HEPARIN SOD (PORCINE) 5000 UNITS/ML VIAL SC SCH (05:42)
[2017-06-09] MEDS: **hydrALAZINE HCL** 25 MG TAB PO SCH ×2 (05:42→12:55)
[2017-06-09] MEDS: LEVOTHYROXINE 100MCG TABLET (0.1MG) PO SCH (05:42)
[2017-06-09 07:22] LABS: MEAN CORPUSCULAR HEMOGLOBIN 31.6 pg (27.0-33.0); MEAN CORPUSCULAR HGB CONC 32.3 g/dl (32.0-36.5); MEAN CORPUSCULAR VOLUME 97.6 fl (80.0-96.0); RED CELL DISTRIBUTION WIDTH 14.9 % (11.5-14.5); WHITE BLOOD COUNT 5.9 K/mm3 (4.0-10.0)
[2017-06-09 07:28] LABS: CALCIUM LEVEL 8.2 MG/DL (8.8-10.2); CREATININE FOR GFR 3.43 MG/DL (0.55-1.02); GLOMERULAR FILTRATION RATE 14.2 (>45); POTASSIUM SERUM 4.5 MEQ/L (3.5-5.1)
[2017-06-09] MEDS: rOPINIRole 1MG TAB PO SCH (09:10)
[2017-06-09] MEDS: PANTOPRAZOLE 40MG TAB (PROTONIX) PO SCH (09:10)
[2017-06-09] MEDS: amLODIPine 5 MG TAB PO SCH (09:11)
[2017-06-09] MEDS: CLOPIDOGREL 75 MG TAB PO SCH (09:11)
[2017-06-09] MEDS: TORSEMIDE 100 MG TAB PO SCH (09:11)
[2017-06-09] MEDS: METOPROLOL SUCC (TopROL XL) 50MG **XL** TAB PO SCH (09:11)
[2017-06-09] MEDS: DULoxetine 30 MG CAP (CYMBALTA) PO SCH (09:11)
[2017-06-09] MEDS: HumaLOG INSULIN (NovoLOG) PER UNIT SC SCH ×2 (09:12→12:55)
[2017-06-09] MEDS: LEVEMIR (INSULIN DETEMIR) 1 UNITS/0.01ML SC SCH (09:12)
[2017-06-09 12:55] VITALS: BP 154/60
--- NOTE | 2017-06-09 15:31 | DS.PDOC ---
Discharge Summary General Date of Admission Jun 06, 2017 at 05:15 Date of Discharge 06/09/17 Specialist/Consultants Involve: Marco Beckman Discharge Summary PROCEDURES PERFORMED DURING STAY: EGD, Colonoscopy ADMITTING DIAGNOSES: 1. . Atypical chest pain 2. . Symptomatic anemia 3. . End-stage renal disease on hemodialysis DISCHARGE DIAGNOSES: 1. . Atypical chest pain 2. . Symptomatic anemia 3. . End-stage renal disease on hemodialysis COMPLICATIONS/CHIEF COMPLAINT: Atypical Chest Pain. HISTORY OF PRESENT ILLNESS: . 66-year-old female with PMH of ESRD/HD (M/W/F), CAD, CHF, HTN, DM2, hypothyroidism, hyperlipidemia, anemia of chronic disease, chronic diastolic HFpEF (70%-11/10) and GERD presented to the ER with a chief complaint of atypical chest pain. The patient stated that she had substernal nonradiating chest pain that began at rest. She stated the pain was nonexertional and not associated with any nausea/vomiting, diaphoresis, dyspnea, dizziness, or palpitations. She reported no significant relief with nitroglycerin. She denied any complaints of fevers, chills, lightheaded, dizziness, abdominal pain, or any other acute complaints. In the ER, an EKG revealed no acute ST changes. Troponin markers were noted to be within normal limits. The patient was admitted to the hospitalist service for further evaluation and management. During hospitalization, the patient's troponins were noted to be within normal limits on serial studies. The patient did not have any significant events on quality assurance monitor final. However, the patient was noted to have a low hemoglobin requiring a blood transfusion. Of note, the patient was recently admitted in February 2017 with symptomatic anemia with positive stool occult blood requiring blood transfusions. She was advised to follow-up as an outpatient with GI for a possible EGD and/or colonoscopy. However, the patient states that she did not get a chance to do so. GI was consulted here and she did undergo an EGD and colonoscopy on 06/08/17. There was no active bleeding noted on the studies, and the full report is listed below. The patient remained hemodynamically stable and had no episodes of overt bleeding. At this time, the patient states that she is feeling well and denies any complaints of chest pain or palpitations since admission. The patient will be discharged with instructions to follow-up with her primary care physician within one, and with GI in 2-3 weeks for follow- up of pathology. DISCHARGE MEDICATIONS: Please see below. ALLERGIES: Please see below. PHYSICAL EXAMINATION ON DISCHARGE: VITAL SIGNS: Please see below. General Exam: Positive: Alert, Cooperative, No Acute Distress Eye Exam: Negative: Sclera icteric ENT Exam: Positive: Atraumatic, Mucous membr. moist/pink Neck Exam: Positive: Supple, Negative: JVD, Lymphadenopathy Chest Exam: Positive: Clear to auscultation, Normal air movement, Negative: Rales, Rhonchi, Wheezing Heart Exam: Positive: Rate Normal, Regular Rhythm, Normal S1, Normal S2, Negative: Tachycardic, Bradycardic, Irregular Rhythm Telemetry: Positive: No significant arrhythmia Abdomen Exam: Positive: Normal bowel sounds, Soft, Negative: BS Hyperactive, BS Hypoactive, Tenderness, Hepatospenomegaly Extremity Exam: Negative: Clubbing, Cyanosis, Edema Skin Exam: Negative: Rash, Breakdown Neuro Exam: Positive: Normal Speech, Strength at 5/5 X4 ext Psych Exam: Positive: Mental status NL, Mood NL, Oriented x 3 LABORATORY DATA: Please see below. IMAGING: Procedure: Total Colonoscopy to Cecum + Cold Snare Polypectomy + Hemoclips Indications: Iron deficiency anemia Providers: Marco Beckman MD Referring MD: Maia Grullon MD Requesting Provider: Medicines: Monitored Anesthesia Care Complications: No immediate complications. Procedure: Pre-Anesthesia Assessment: - The heart rate, respiratory rate, oxygen saturations, blood pressure, adequacy of pulmonary ventilation, and response to care were monitored throughout the procedure. The Colonoscope was introduced through the anus and advanced to the cecum, identified by appendiceal orifice and ileocecal valve. The colonoscopy was performed without difficulty. The patient tolerated the procedure well. The quality of the bowel preparation was good. Findings: The perianal and digital rectal examinations were normal. Non-bleeding internal hemorrhoids were found during retroflexion. The hemorrhoids were small and Grade I (internal hemorrhoids that do not prolapse). A medium polyp was found in the rectum. The polyp was carpet-like. The polyp was removed with a cold snare. Polyp resection was incomplete. The resected tissue was retrieved. To prevent bleeding after the polypectomy, one hemostatic clip was successfully placed (MR conditional). There was no bleeding at the end of the procedure. Multiple small and large-mouthed diverticula were found in the recto-sigmoid colon, sigmoid colon and descending colon. A medium polyp was found in the mid ascending colon. The polyp was sessile. The polyp was removed with a cold snare. Resection and retrieval were complete. To prevent bleeding after the polypectomy, two hemostatic clips were successfully placed (MR conditional). There was no bleeding at the end of the procedure. Multiple semi-pedunculated polyps were found in the entire colon. The polyps were medium in size. These polyps were removed with a cold snare. Resection and retrieval were complete. To prevent bleeding after the polypectomy, five hemostatic clips were successfully placed (MR conditional). There was no bleeding at the end of the procedure. The exam was otherwise without abnormality on direct and retroflexion views. Impression: - Non-bleeding internal hemorrhoids. - One medium polyp in the rectum, removed with a cold snare. Incomplete resection. Resected tissue retrieved. Clip (MR conditional) was placed. - Diverticulosis in the recto-sigmoid colon, in the sigmoid colon and in the descending colon. - One medium polyp in the mid ascending colon, removed with a cold snare. Resected and retrieved. Clips (MR conditional) were placed. - Multiple medium polyps in the entire colon, removed with a cold snare. Resected and retrieved. Clips (MR conditional) were placed. - The examination was otherwise normal on direct and retroflexion views. - The exam was otherwise normal to the cecum. Recommendation: - Patient has a contact number available for emergencies. The signs and symptoms of potential delayed complications were discussed with the patient. Return to normal activities tomorrow. Written discharge instructions were provided to the patient. - Resume previous diet. - [facility]. - Continue present medications. - Await pathology results. - Repeat colonoscopy for surveillance based on pathology results. - Return to referring physician. - The findings and recommendations were discussed with the patient's family. Marco Beckman MD Procedure: Upper GI endoscopy Indications: Iron deficiency anemia Providers: Marco Beckman MD Referring MD: Maia Grullon MD Requesting Provider: Medicines: Monitored Anesthesia Care Complications: No immediate complications. Procedure: Pre-Anesthesia Assessment: - The heart rate, respiratory rate, oxygen saturations, blood pressure, adequacy of pulmonary ventilation, and response to care were monitored throughout the procedure. The Endoscope was introduced through the mouth, and advanced to the second part of duodenum. The upper GI endoscopy was accomplished without difficulty. The patient tolerated the procedure well. Findings: The Z-line was regular and was found 35 cm from the incisors. The exam was otherwise without abnormality. Mild gastric antral vascular ectasia without bleeding was present in the gastric antrum. The exam of the duodenum was otherwise normal. Impression: - Z-line regular, 35 cm from the incisors. - The examination was otherwise normal. - Gastric antral vascular ectasia without bleeding. - No specimens collected. - The examination was otherwise normal. Recommendation: - [facility]. - Continue present medications. - The findings and recommendations were discussed with the patient's family. Marco Beckman MD PROGNOSIS: Medically stable ACTIVITY: As tolerated. DIET: . carb consistent diet, renal diet DISCHARGE PLAN: Home DISPOSITION: 01 Home, Self-Care. DISCHARGE INSTRUCTIONS: 1. . Follow-up with primary care physician within one week 2. . Follow-up with GI in 2-3 weeks for pathology results from colonoscopy DISCHARGE CONDITION: Stable. TIME SPENT ON DISCHARGE: Greater than 30 minutes. Vital Signs/I&Os Vital Signs Date Time Temp Pulse Resp B/P (MAP) Pulse Ox O2 Delivery O2 Flow Rate FiO2 06/09/17 12:55 154/60 06/09/17 09:11 68 06/09/17 05:40 97.6 18 95 Room Air 06/08/17 17:45 3 I&O- Last 24 Hours up to 6 AM 06/09/17 05:59 Intake Total 940 ml Output Total 2500 ml Balance -1560 ml Laboratory Data Labs 24H Laboratory Tests 2 06/08/17 17:49: Bedside Glucose (Misc Panel) 123H 06/08/17 20:35: Bedside Glucose (Misc Panel) 356H 06/09/17 06:59: Anion Gap 7L, Glomerular Filtration Rate 14.2L, Blood Urea Nitrogen 29H, Creatinine 3.43H, Sodium Level 135L, Potassium Level 4.5, Chloride Level 99, Carbon Dioxide Level 29, Calcium Level 8.2L 06/09/17 12:18: Bedside Glucose (Misc Panel) 390H CBC/BMP Laboratory Tests 06/09/17 06:59 Red Blood Count 2.99 L, Mean Corpuscular Volume 97.6 H, Mean Corpuscular Hemoglobin 31.6, Mean Corpuscular Hemoglobin Concent 32.3, Red Cell Distribution Width 14.9 H, Calcium Level 8.2 L FSBS Laboratory Tests Test 06/08/17 17:49 06/08/17 20:35 06/09/17 12:18 Range/Units Bedside Glucose (Misc Panel) 123 356 390 80-115 MG/DL Discharge Medications Scheduled ([facility]) 300 Unit/Ml Inj, 85 UNITS SC BID, (Reported) Clopidogrel Bisulfate (Plavix) 75 Mg Tab, 75 MG PO DAILY, (Reported) Duloxetine Hcl (Cymbalta) 30 Mg Cap, 30 MG PO DAILY, (Reported) Ezetimibe (Zetia) 10 Mg Tab, 10 MG PO QHS, (Reported) Gabapentin (Gabapentin) 100 Mg Cap, 300 MG PO QHS, (Reported) Insulin Human Lispro (Humalog) 1 Units/0.01 Ml Inj, 1 DOSE SC ASDIRECTED, ( Reported) PER SLIDING SCALE Levothyroxine Sodium (Synthroid) 100 Mcg Tab, 100 MCG PO DAILY, (Reported) Metoprolol Succinate (Toprol Xl) 50 Mg Tab, 50 MG PO BID, (Reported) Pantoprazole Sodium (Pantoprazole Sodium) 40 Mg Tab, 40 MG PO DAILY, (Reported) Ropinirole Hydrochloride (Ropinirole HCl) 3 Mg Tab, 6 MG PO BID, (Reported) Simvastatin (Simvastatin) 20 Mg Tab, 20 MG PO QHS, (Reported) Torsemide (Torsemide) 100 Mg Tab, 100 MG PO BID, (Reported) Trazodone HCl (Trazodone HCl) 100 Mg Tab, 100 MG PO QHS, (Reported) Scheduled PRN Nitroglycerin (Nitroglycerin) 0.4 Mg Sub, 0.4 MG SL NITRO PRN for CHEST PAIN, ( Reported) Ondansetron HCl (Ondansetron HCl) 4 Mg Tab, 4 MG PO Q6H PRN for NAUSEA, ( Reported) Tramadol HCl (Tramadol HCl) 50 Mg Tab, 100 MG PO BID PRN for PAIN, (Reported) Allergies Coded Allergies: Pregabalin (Verified Adverse Reaction, Intermediate, CONFUSION, 03/16/17) JENISE JAIEM MD Jun 09, 2017 15:31
--- NOTE | 2017-06-09 20:17 | IPN ---
DATE: 06/09/2017 Ms. Hernandez is seen this morning on her bedside. She is sitting at the edge of bed, coloring her pictures. She underwent hemodialysis yesterday which she tolerated well. She also had upper and lower endoscopy done which did not show any evidence of acute bleeding. She had multiple polyps removed from her colon. She also noticed to have diverticulosis. Her upper endoscopy was mostly unremarkable. Today she is feeling well and denies any nausea, vomiting, abdominal pain, fever or chills. PHYSICAL EXAMINATION: Temperature 97.6 degrees Fahrenheit, heart rate 68 per minute and respiratory rate 18 per minute. Blood pressure 154/60 mmHg and oxygen saturation 95% on room air. Head is atraumatic. Neck veins are mildly distended sitting upright. She has no oral thrush or ulcers. Ears, nose and throat are unremarkable. Heart sounds are regular and lungs with slightly diminished breath sounds at bases. There is no wheezing or rales. Abdomen soft and nontender and bowel sounds are normal. Extremities have no cyanosis or clubbing. Skin has no rash or ulcers. Neurologically she is awake, alert and oriented times three. Today's labs show WBC count 5.9, hemoglobin 9.4 and hematocrit 29.1. Platelets 163. Sodium 135 and potassium 4.5. BUN 29 and creatinine 3.43. Her glucose is 308. PROBLEMS: 1. End-stage renal disease. The patient underwent hemodialysis yesterday. Her next dialysis will be scheduled for Tuesday which is a regular dialysis day for her. 2. Hypertension. Blood pressure is reasonably well-controlled. She is still somewhat hypervolemic and we will try to correct her volume with hemodialysis over the next week. Will continue with current antihypertensive medications and not be too aggressive as she does get frequent hypotension during dialysis. 3. Congestive heart failure / hypervolemia. She has known history of diastolic congestive heart failure with slightly decompensated volume status. We will try to remove 3-4 liters of fluid with each dialysis. I have discussed with the patient about need for fluid restriction as she has been mostly noncompliant with her dietary and fluid restrictions. 4. Uncontrolled diabetes. This has been a chronic issue. I have again explained to the patient about need for optimal control of her diabetes. When she gets hyperglycemic then she has excessive thirst and increased fluid intake which causes a vicious cycle of hypervolemia. 5. Anemia. Her anemia has been mostly stable since she was initially transfused. Upper and lower endoscopy did not show any evidence of acute bleed. We will continue to manage with hemodialysis and monitor her complete blood count (CBC) as an outpatient. She did have heme-positive stools, so there is possibility of arteriovenous (AV) malformation in small intestines. DISPOSITION: From a renal standpoint, the patient seems to be doing well and can be discharged to home today and followup as an outpatient. She is scheduled for her next hemodialysis on Tuesday.
== END 2017-06-09 14:00 | disposition home or self-care (01) | DRG 291 ==
LOC: M ED 21:49 → M ED INP 06-06 05:15 → M PCU 06-06 06:48 → M MSPAV 06-07 14:30
PROVIDERS: ATTEND Internal Medicine
PROC: 30233N1 Transfusion of Nonautologous Red Blood Cells into Peripheral Vein, Percutaneous Approach (ICD-10-PCS; 2017-06-06)
PROC: 5A1D60Z (ICD-10-PCS; 2017-06-06)
PROC: 0DBK8ZX Excision of Ascending Colon, Via Natural or Artificial Opening Endoscopic, Diagnostic (ICD-10-PCS; 2017-06-08)
PROC: 0DBP8ZX Excision of Rectum, Via Natural or Artificial Opening Endoscopic, Diagnostic (ICD-10-PCS; 2017-06-08)
PROC: 0DJ08ZZ Inspection of Upper Intestinal Tract, Via Natural or Artificial Opening Endoscopic (ICD-10-PCS; principal; 2017-06-08 15:15)
DX: I13.2 Hypertensive heart and chronic kidney disease with heart failure and with stage 5 chronic kidney disease, or end stage renal disease (principal); N18.6 End stage renal disease; I50.32 Chronic diastolic (congestive) heart failure; D63.1 Anemia in chronic kidney disease; R07.2 Precordial pain; I25.10 Atherosclerotic heart disease of native coronary artery without angina pectoris; E11.40 Type 2 diabetes mellitus with diabetic neuropathy, unspecified; E03.9 Hypothyroidism, unspecified; E78.5 Hyperlipidemia, unspecified; K57.30 Diverticulosis of large intestine without perforation or abscess without bleeding; K64.0 First degree hemorrhoids; K62.1 Rectal polyp; D12.2 Benign neoplasm of ascending colon; K31.819 Angiodysplasia of stomach and duodenum without bleeding; Z79.899 Other long term (current) drug therapy; Z79.4 Long term (current) use of insulin; Z88.8 Allergy status to other drugs, medicaments and biological substances; K21.9 Gastro-esophageal reflux disease without esophagitis; I25.2 Old myocardial infarction; E11.319 Type 2 diabetes mellitus with unspecified diabetic retinopathy without macular edema; H54.8 Legal blindness, as defined in USA; G47.33 Obstructive sleep apnea (adult) (pediatric); G25.81 Restless legs syndrome; E11.21 Type 2 diabetes mellitus with diabetic nephropathy; E87.5 Hyperkalemia; E87.70 Fluid overload, unspecified

== ENCOUNTER 2017-06-18 01:11 | Inpatient (IN) | payer MEDICARE ==
[~2017-06-18] VITALS: Ht 157.5 cm; Wt 86.3 kg
[~2017-06-18 01:11] MED LIST changes: +GABA-279 PO; +ONDA4TAB5 PO; +TOPR50TA PO; +TRAZ-136 PO
[2017-06-18] MEDS ORDERED: CLIN150C14 PO (01:34)
[2017-06-18 03:26] LABS: BASO % 0.5 % (0.0-1.0); EOS # 0.1 K/mm3 (0.0-0.50); EOS % 2.7 % (0.0-3.0); LARGE UNSTAINED CELL # 0.1 K/mm3 (0.0-0.4); LARGE UNSTAINED CELL % 1.8 % (0.0-4.0); LYMPH # 1.2 K/mm3 (1.5-4.5); LYMPH % 21.3 % (24.0-44.0); MEAN CORPUSCULAR HEMOGLOBIN 31.8 pg (27.0-33.0); MEAN CORPUSCULAR HGB CONC 32.4 g/dl (32.0-36.5); MEAN CORPUSCULAR VOLUME 98.1 fl (80.0-96.0); MONO # 0.3 K/mm3 (0.0-0.8); MONO % 6.2 % (0.0-5.0); NEUTROPHILS # 3.6 K/mm3 (1.8-7.7); NEUTROPHILS % 67.5 % (36.0-66.0); PLATELET COUNT, AUTOMATED 154 k/mm3 (150-450); RED CELL DISTRIBUTION WIDTH 16.1 % (11.5-14.5); WHITE BLOOD COUNT 5.3 K/mm3 (4.0-10.0)
[2017-06-18] MEDS ORDERED: GABAPENTIN 300 MG CAP PO ONE (03:30)
[2017-06-18 03:40] LABS: CALCIUM LEVEL 8.2 MG/DL (8.8-10.2); CREATININE FOR GFR 3.04 MG/DL (0.55-1.02); GLOMERULAR FILTRATION RATE 16.3 (>45); POTASSIUM SERUM 4.8 MEQ/L (3.5-5.1)
[2017-06-18] MEDS: MORPHINE 4 MG/ML 1ML SYRINGE IV PRN ×2 (03:43→04:21)
[2017-06-18] MEDS ORDERED: ONDANSETRON 4MG/2ML VIAL (J2405) IV ONE (04:00)
[2017-06-18] MEDS ORDERED: PIPERACILLIN/TAZOBACTAM SOD 2.25 GM in D5W MINI-BAG PLUS 50 ML IV ONE (05:15)
[2017-06-18] MEDS ORDERED: MORPHINE 2 MG/ML 1ML SYRINGE IV PRN (05:45)
[2017-06-18] MEDS ORDERED: ACETAMINOPHEN TAB 650MG DOSE (2X325MG) PO PRN (05:45)
[2017-06-18] MEDS ORDERED: ONDANSETRON 4MG/2ML VIAL (J2405) IV PRN (05:45)
[2017-06-18] MEDS ORDERED: GLUCOSE 4 GM CHEW TABLET PO PRN (06:00)
[2017-06-18] MEDS ORDERED: DEXTROSE 50% 50 ML SYRINGE IV PRN (06:00)
[2017-06-18] MEDS ORDERED: HumuLIN R (REGULAR) INSULIN (NovoLIN R) **100U/ML** PER UNIT SC ONE (06:00)
[2017-06-18] MEDS: **hydrALAZINE** 50 MG TAB PO SCH ×3 (06:00→17:52)
[2017-06-18] MEDS ORDERED: GLUCAGON FOR INJ 1 MG VIAL (J1610) SC PRN (06:00)
--- NOTE | 2017-06-18 06:40 | REPUSA ---
CLINICAL HISTORY: Edema. COMMENTS: Real time sonography with duplex doppler of the left lower extremity was performed with attention to the major deep venous structures. Evaluation reveals the left common femoral, superficial femoral and popliteal veins to be completely compressible without intraluminal thrombus. There is normal spontaneous phasic flow and augmentation. The greater saphenous/common femoral vein junction is patent. IMPRESSION: No evidence of DVT in left lower extremity.. Thank you for your kind referral of this patient.
[2017-06-18 06:54] LABS: ERYTHROCYTE SEDIMENTATION RATE 67 mm/hr (0-30)
--- NOTE | 2017-06-18 06:54 | HPE ---
DATE OF ADMISSION: 06/18/2017 PRIMARY CARE PROVIDER: Dr. Catracho Pineda STRIP PRESSER: Dr. Maia Grullon SEAMER PANTY HOSE: Dr. Gutierres ROLLER STAKER: Dr. Shane Jose CHIEF COMPLAINT: Left foot ulcer wound and cellulitis. HISTORY OF PRESENT ILLNESS: This is a 66-year-old female patient with underlying medical history of end stage renal disease on dialysis Tuesday, Tuesday, and Tuesday, coronary arterial disease with stents, congestive heart failure (CHF) with diastolic dysfunction, hypertension, obstructive sleep apnea (JUAN) not using CPAP, hypothyroidism, dyslipidemia, anemia of chronic disease, recently had colonoscopy, gastroesophageal reflux disease (GERD), patient also had a rotator cuff injury in the past, also diabetic retinopathy, and restless leg syndrome. Patient presented to the hospital had a left foot second toe ulcer that has been present since April 26, has been following with Dr. Gutierres. Earlier, patient was admitted on June 06 and was subsequently discharged and followed with Dr. Gutierres on Tuesday for some debridement and placed on clindamycin. Over the course of the last couple of days, the wound seems to be spreading involving her calf with reddening and worsening pain. Subsequently, the patient presented to the emergency room, reported poorly controlled glucose with fingersticks 300 to 400. Previously, the patient's right lower extremity had a similar wound that took an extremely long time to heal. The patient is quite concerned. Patient denies any chest pain, pressure or discomfort, fevers or chills, palpitations, diarrhea or constipation. ALLERGIES: 1. LYRICA. PAST MEDICAL HISTORY: Type 2 diabetes. Hypertension. Dyslipidemia. Hypothyroidism. End stage renal disease on dialysis Tuesday, Tuesday, and Tuesday. Coronary arterial disease with myocardial infarction (CA) and stent. Chronic diastolic CHF with preserved ejection fraction (EF). Anemia of chronic disease. Diabetic neuropathy. Diabetic retinopathy. Restless leg syndrome. Obstructive sleep apnea (JUAN) not compliant with CPAP. Depression. PAST SURGICAL HISTORY: Stents. AV fistulas. Appendectomy. Hysterectomy. Bilateral cataract surgery. SOCIAL HISTORY: Patient lives at home. Denies smoking or alcohol use or illicit drug use. FAMILY HISTORY: Denies family history of premature cardiac vascular disease. REVIEW OF SYSTEMS: Reported left lower leg pain and burning sensation with ulcers, draining of yellow exudate. All other review of systems were negative. HOME MEDICATIONS: - clindamycin 300 mg by mouth three times a day - Plavix 75 mg by mouth daily - Cymbalta 30 mg by mouth daily - Zetia 10 mg by mouth at bedtime - Neurontin 300 mg by mouth at bedtime - Humalog insulin premeal - levothyroxine 100 mcg by mouth daily - metoprolol 50 mg by mouth twice a day - sublingual nitroglycerin 0.4 mg as needed - Zofran 4 mg by mouth every 6 hours as needed - Protonix 40 mg by mouth daily - Requip 6 mg by mouth twice a day - Zocor 20 mg by mouth at bedtime - torsemide 100 mg by mouth twice a day - tramadol 100 mg by mouth twice a day - trazodone 100 mg by mouth at bedtime - Toujeo 85 units subcu twice a day PHYSICAL EXAMINATION: VITAL SIGNS: Temperature 98.8, pulse 87, respirations 20, blood pressure 170/90, pulse oximetry 96% on room air. GENERAL: Patient alert and oriented times three in no acute distress. HEENT: Normocephalic, atraumatic. PULMONARY: Bilaterally clear to auscultation. CARDIAC: Regular S1 and S2. ABDOMEN: Soft, nontender. Positive bowel sounds. Obese. LOWER EXTREMITIES: Right lower extremity skin is intact. Dorsalis pedis (DP) and posterior tibial (PT) pulses intact, 1+. Left lower extremity DP and PT pulses 1+. Left lower extremity mildly swollen with erythema up to the baig area. Also left source seems to be originating from the second digit of the left toe with erythema and ulcer that seems to be well debrided. EKG is pending. LABORATORIES: WBC 5.3, hemoglobin and hematocrit 9.1/27.9, platelets 154. Chemistries: Sodium 135, potassium 4.8, chloride 100, bicarb 28, anion gap 7, BUN 32, creatinine 3.04, glucose 411, C-reactive protein 1.55. ASSESSMENT/PLAN: This is a 66-year-old female patient with underlying medical history of type 2 diabetes, hypertension, dyslipidemia, hypothyroidism, end stage renal disease Tuesday, Tuesday, and Tuesday, dialysis, coronary arterial disease, congestive heart failure (CHF) with diastolic dysfunction, preserved EF, anemia of chronic disease, diabetic neuropathy, diabetic retinopathy, restless leg syndrome, obstructive sleep apnea (JUAN) not compliant with CPAP, depression, and poor compliance admitted for cellulitis of the left lower extremity with left lower extremity ulcers refractive to outpatient treatment. PROBLEMS: 1. Cellulitis of the left lower extremity with left second toe ulcer refractory to outpatient treatment. Will place the patient on vancomycin and cefepime. Will consult podiatry as well as nephrology. MRI, ultrasound Doppler to rule out deep vein thrombosis (DVT). Followup C-reactive protein, ESR, A1c glycemic control, Methicillin-resistant Staphylococcus aureus (MRSA), blood cultures and wound cultures. Continue current treatment. 2. Poorly controlled diabetes. Insulin as ordered. Followup A1c and adjust as needed. Follow fingersticks. 3. Hypertensive urgency, possibly associated with pain. Hydralazine has been added 50 mg by mouth every 6 hours with holding parameters. Will continue outpatient medication of metoprolol as well as torsemide. 4. Coronary arterial disease and dyslipidemia. Continue Plavix, metoprolol and statin. Monitor blood pressures. Followup EKGs. 5. Hypothyroidism. Continue Synthroid. 6. End stage renal disease. Followup electrolytes. Continue dialysis. Nephrology consulted. 7. History of congestive heart failure (CHF) with diastolic dysfunction, preserved ejection fraction (EF). Compensated. Continue home medications. 8. Chronic anemia. Baseline EGD and colonoscopy. Followup hemoglobin and hematocrit, transfuse as needed. 9. Diabetic neuropathy. Continue Neurontin. 10. Diabetic retinopathy. Glycemic control. Outpatient followup. 11. Restless leg syndrome. Continue current medication. 12. Depression. Continue current medication. 13. Obstructive sleep apnea (JUAN) not compliant with CPAP. JUAN protocol. 14. Deep vein thrombosis (DVT) prophylaxis. Heparin subcu. DISPOSITION/PLANNING: Pending podiatry consultation, wound care, clinical improvement, MRI, ultrasound Doppler to rule out DVT.
[2017-06-18] MEDS ORDERED: VANCOMYCIN INTERMITTENT/PULSE DOSING BY CLINICAL PHARMACIST PER DOSING PROTOCOL XX SCH (07:00)
--- NOTE | 2017-06-18 07:09 | PHACANCOPD ---
PHARMACY VANCOMYCIN DOSING Pt Demographics Demographics Patient Age:66 , Weight:82.730 , Gender: female Adjusted Body Weight Date: 06/18/17, Adjusted Body Weight: [63.15] Kg Events Past 24 Hours Events Past 24 Hours: NO: Dialysis, Diuretic Therapy, Change in CrCl, Fever, Elevation in WBC, Pending Diagnostics, Pending Procedures, Other Vancomycin Vancomycin indication: CELLULITIS Vancomycin Target Ranges: 15-20 mcg/ml Vancomycin Load Y/N: Yes Load Dose Date Time Vancomycin Load Dose: 1.75G Date: 06/18/17 Time: 07:00 Vancomycin Dose Date: 06/18/17. Current Vancomycin Dose: [INTERMITTENT] Intermittent Dosing?: Yes Labs Labs Item Value Date Time White Blood Count 5.3 K/mm3 06/18/17 0239 Creatinine 3.04 MG/DL H 06/18/17 0239 C-Reactive Protein, Quantitative 1.55 MG/DL H 06/18/17 0239 Micro Microbiology 06/18/17 Blood Culture, Received Pending Creatinine Clearance Date:06/18/17. Creatinine Clearance: [15.13ML/MIN.]. Pending Labs Blood culture Assessment and Plan Maintaining Current Dose?: Yes Reason for dose change: No Dose Change Pharmacist Note Pharmacist Note Date: 06/18/17. Pharmacist note: Pt is a 66 year old female being treated for cellulitis goal trough 15-20mcg/ml. Pt has had vancomycin therapy at [facility] in 2013 and renal function has declined since that visit. To achieve goal a 1.75g iv loading dose was started 06/18 @08:00. Intermittent dosing will be followed with vancomycin level scheduled for 06/19 am. We will continue to monitor and adjust dose as needed. MOHSEN PORTER PHARMACY Jun 18, 2017 07:09
[2017-06-18] MEDS: HumaLOG INSULIN (NovoLOG) PER UNIT SC SCH ×4 (07:30→21:00)
[2017-06-18 08:00] VITALS: BP 166/86
[2017-06-18] MEDS ORDERED: VANCOMYCIN HCL 1,000 MG, VIAL MATE ADAPTER 1 EACH in D5W 250 ML IV ONE (08:00)
[2017-06-18] MEDS ORDERED: VANCOMYCIN HCL 750 MG, VIAL MATE ADAPTER 1 EACH in D5W 250 ML IV ONE (09:00)
[2017-06-18] MEDS ORDERED: LEVEMIR (INSULIN DETEMIR) 1 UNITS/0.01ML SC SCH (09:00)
[2017-06-18] MEDS: DULoxetine 30 MG CAP (CYMBALTA) PO SCH (09:18)
[2017-06-18] MEDS: HEPARIN SOD (PORCINE) 5000 UNITS/ML VIAL SC SCH ×2 (09:18→22:25)
[2017-06-18] MEDS: TORSEMIDE 100 MG TAB PO SCH ×2 (09:18→22:26)
[2017-06-18] MEDS: METOPROLOL SUCC (TopROL XL) 50MG **XL** TAB PO SCH ×2 (09:19→21:00)
[2017-06-18] MEDS: PANTOPRAZOLE 40MG TAB (PROTONIX) PO SCH (09:19)
[2017-06-18] MEDS: LACTOBACILLUS ACIDOPHILUS CAP (BACID) PO SCH ×3 (09:19→17:52)
[2017-06-18] MEDS: SENOKOT S TAB PO SCH ×2 (09:20→22:27)
[2017-06-18] MEDS: CLOPIDOGREL 75 MG TAB PO SCH (09:20)
[2017-06-18] MEDS: rOPINIRole 1MG TAB PO SCH ×2 (09:20→22:27)
[2017-06-18] MEDS ORDERED: GABA-279 PO (09:20)
[2017-06-18] MEDS ORDERED: CEFEPIME HCL 1 GM in D5W MINI-BAG PLUS 50 ML IV SCH (10:00)
[2017-06-18] MEDS: LEVOTHYROXINE 100MCG TABLET (0.1MG) PO SCH (11:30)
[2017-06-18] MEDS: CEFEPIME HCL 1 GM in D5W MINI-BAG PLUS 50 ML IV SCH (11:31)
[2017-06-18] MEDS ORDERED: DARBEPOETIN 100 MCG/0.5 ML *DIALYSIS* SYRINGE (J0882) IV SCH (12:45)
[2017-06-18 12:52] VITALS: BP_SYST 114; BP_DIAS 7; BP_DIAS 70
--- NOTE | 2017-06-18 13:11 | IPNPDOC ---
Text Note Date of Service The patient was seen on 06/18/17. NOTE The patient was admitted early this morning by my colleague Dr. Muir. She was seen and examined by me today. 66-year-old female with end-stage renal disease on hemodialysis, CAD status post PCI, chronic diastolic CHF, hypertension, JUAN not on CPAP, hypothyroidism, hyperlipidemia, anemia of chronic disease, GERD, diabetic retinopathy, restless leg syndrome, depression, diabetes mellitus type 2 who presented to the emergency department with worsening erythema and pain of the left lower extremity associated with a left second toe ulcer. She is admitted with cellulitis and uncontrolled diabetes mellitus. 1. Cellulitis of the left lower extremity: The patient had previously been following with Dr. Gutierres and has failed outpatient therapy with clindamycin. We have consulted him for further management. He states that he will review the MRI which has been ordered and possibly consider amputation. Left lower extremity Doppler shows no evidence of DVT. We'll continue the patient on vancomycin and cefepime, and follow-up blood cultures. She is currently afebrile with a normal white count. 2. End-stage renal disease on hemodialysis: We have consulted nephrology and appreciate their help with managing dialysis. 3. CAD status post PCI, hyperlipidemia: The patient is currently without any chest pain. We will continue her on her home Zetia, beta jeffrey, statin, Plavix. 4. Chronic diastolic CHF: The patient currently appears euvolemic. She states that she still makes urine and takes torsemide at home, which we will continue. 5. Hypertension: Continue home beta jeffrey, hydralazine, torsemide. 6. Hypothyroidism: Continue home Synthroid. 7. GERD: Continue home PPI. 8. Restless leg syndrome: Continue home Requip, gabapentin. 9. Depression: Continue home trazodone, Cymbalta. 10. Diabetes mellitus type 2: Glucoses were uncontrolled (hyperglycemic) on admission. The patient received 10 units of regular insulin, and we will continue her home Levemir at 80 units twice a day, as well as use sliding scale insulin while in-house. DVT prophylaxis: Heparin Dispo: pending improvement in her cellulitis. VS,Fishbone, I+O VS, Fishbone, I+O Laboratory Tests 06/18/17 02:39 Red Blood Count 2.85 L, Mean Corpuscular Volume 98.1 H, Mean Corpuscular Hemoglobin 31.8, Mean Corpuscular Hemoglobin Concent 32.4, Red Cell Distribution Width 16.1 H, Neutrophils (%) (Auto) 67.5 H, Lymphocytes (%) (Auto ) 21.3 L, Monocytes (%) (Auto) 6.2 H, Eosinophils (%) (Auto) 2.7, Basophils (%) (Auto) 0.5, Neutrophils # (Auto) 3.6, Lymphocytes # (Auto) 1.2 L, Monocytes # ( Auto) 0.3, Eosinophils # (Auto) 0.1, Basophils # (Auto) 0.0, Calcium Level 8.2 L Vital Signs Date Time Temp Pulse Resp B/P (MAP) Pulse Ox O2 Delivery O2 Flow Rate FiO2 06/18/17 12:52 70 114/70 (85) 06/18/17 08:00 97.7 17 94 Room Air SANDRA GILBERT Jun 18, 2017 13:11
--- NOTE | 2017-06-18 13:31 | CR ---
DATE OF CONSULTATION: 06/18/2017 REQUESTING PHYSICIAN: Jessica Grover MD CONSULTING PHYSICIAN: Navi Moore MD REASON FOR CONSULTATION: Management of end stage renal disease and hemodialysis. CHIEF COMPLAINT: Patient presented to the emergency room last night with a left foot ulcer and cellulitis. HISTORY OF PRESENT ILLNESS: Dalila Hernandez is a 66-year-old female with past medical history of end stage renal disease on hemodialysis every Tuesday, Tuesday, and Tuesday, well known to nephrology service from outpatient hemodialysis center. History of diabetes, hypertension, and diabetic retinopathy as well, along with multiple other comorbidities as mentioned below. The patient reports that since the end of March 2017 she has been following up with Dr. Gutierres because of a foot wound, but the wound recently got worse and the swelling spread to the rest of the foot. She was found to have cellulitis of the left foot in the emergency room. The patient was admitted overnight. She was started on IV antibiotics and she also got an MRI of the left foot done as well. Official report is pending. Nephrology service was called for management of end stage renal disease and hemodialysis. When I saw the patient today morning, she was not in any apparent distress. She was actually sleepy because of the pain medications. She was hemodynamically stable. PAST MEDICAL HISTORY: The patient has a history of end stage renal disease, on hemodialysis every Tuesday, Tuesday, and Tuesday. Hypertension. Diabetes mellitus type 2. Hypothyroidism History of diastolic congestive heart failure (CHF). Anemia. End stage renal disease. Restless leg syndrome. Obstructive sleep apnea (JUAN). Depression. PAST SURGICAL HISTORY: Status post left forearm atrioventricular (AV) fistula placement. Status post appendectomy and hysterectomy in the past. History of cardiac stents. History of bilateral cataract surgery. coronary artery bypass grafting. ALLERGIES: The patient is allergic to LYRICA. FAMILY HISTORY: No significant family history of end stage renal disease requiring hemodialysis. SOCIAL HISTORY: Patient lives at home. She denies any illicit drug abuse, alcohol abuse. REVIEW OF SYSTEMS: CONSTITUTIONAL: Patient denies any fever, chills or rigors. ENT: Patient reports diabetic retinopathy, but she denies any recent change in vision or double vision. ENT: She denies any dysphagia, odynophagia, or ear discharge. CARDIOVASCULAR: She denies any chest pain or palpitations. RESPIRATORY: Denies any shortness of breath, cough or wheezing. GASTROINTESTINAL (GI): Denies nausea, vomiting, pain in abdomen or constipation. MUSCULOSKELETAL: Reports left foot pain and left foot wound. Otherwise, denies any muscle aches and pains. CENTRAL NERVOUS SYSTEM: Denies any strokes, seizures or weakness. PSYCHIATRIC: She reports a history of depression. HEMATOLOGICAL/ONCOLOGIC: Denies any easy bruising or bleeding. ENDOCRINE: Reports history of diabetes and hypothyroidism. All other review of systems is negative. PHYSICAL EXAMINATION: GENERAL: The patient is awake, alert, oriented times three. Slightly drowsy because of he pain medications. VITAL SIGNS: Temperature is 97.7 degrees Fahrenheit. Blood pressure is 166.86. Pulse is 62. Respiratory rate of 17. Saturating 94% on room air. HEAD AND NECK: Extraocular muscles intact. Pupils equally round and reactive to light. Patient has moist mucous membranes. Neck is supple. There is no jugular venous distention (JVD). CARDIOVASCULAR: S1, S2, regular rate. No murmur, rub or gallop. RESPIRATORY: Chest is clear to auscultation bilaterally. Bilateral equal air entry. No rales or rhonchi. MUSCULOSKELETAL: Normal range of movement. No clubbing or cyanosis. Patient has erythema of the dorsum of he left foot and she has an ulceration and infection of the left second toe. CENTRAL NERVOUS SYSTEM: No focal neurological deficit. Power is 5/5 in bilateral lower extremities. PSYCHIATRIC: Normal mood and affect. SKIN: No rashes or ulcers aside from cellulitis and erythema of the left foot. LYMPH NODES: No significant cervical, axillary or inguinal lymphadenopathy. LABORATORY REVIEW: CBC showed a WBC 5.3, hemoglobin 9.1, platelets of 154. BMP showed sodium 135, potassium 4.8, chloride 100, bicarbonate 28, BUN 32, creatinine is 3.04, glucose 411, calcium 8.2, C-reactive protein 1.5. Microbiology: Wound culture is pending. IMAGING: A Doppler of the left lower extremity was done which was negative for deep vein thrombosis (DVT). MRI of the foot was done, which the report is pending. CURRENT INPATIENT MEDICATIONS: Patient is on cefepime 1 gram IV every 24 hours. One dose was given. The patient was given vancomycin 1 gram IV one dose thus far. She is on Tylenol, Plavix, Colace, Cymbalta, Zetia, gabapentin, heparin, hydralazine 50 mg every 6 hours, insulin Levemir 80 units subcu twice a day, insulin sliding scale, Bacid, levothyroxine 100 mcg daily, metoprolol 50 mg twice a day, morphine as needed, Zofran as needed, Protonix 40 mg daily, ropinirole 6 mg by mouth twice a day, Zocor 20 mg at bedtime, torsemide 100 mg twice a day and trazodone 100 mg at bedtime. ASSESSMENT: 66-year-old female with past medical history of end stage renal disease on hemodialysis every Tuesday, Tuesday, and Tuesday, diabetes mellitus type 2, hypertension, hypothyroidism, congestive heart failure with diastolic dysfunction, admitted this time because of a left foot diabetic wound and cellulitis, rule out osteomyelitis. PLAN: 1. End stage renal disease on hemodialysis. The patient's regular days of dialysis are Tuesday, Tuesday, and Tuesday. We dialyzed yesterday according to her regular schedule. No urgent need of dialysis today. The patient will be dialyzed according to her regular schedule on Tuesday, June 20, 2017. 2. Left second toe infection and left foot cellulitis. The patient is already on IV vancomycin and cefepime. Dose vancomycin after dialysis days on Tuesday, Tuesday, and Tuesday and try to achieve a level of around 15. Vancomycin dosing is as per pharmacology and Dr. Gutierres is already on board for further management. 3. Insulin dependent diabetes. Patient is hyperglycemic. Continue insulin sliding scale. Continue insulin Levemir at this time. Rest of the management is as per primary team. 4. Hypertension. The patient's blood pressure was high on admission. She was in hypertensive urgency. Blood pressure is acceptable at this time with the current dose of hydralazine 50 mg every 6 hours, metoprolol 50 mg by mouth twice a day. 5. History of diastolic congestive heart failure (CHF). The patient's volume status is optimized. No urgent need of hemodialysis today. Continue current dose of torsemide at this time to keep the patient euvolemic in between hemodialysis sessions. 6. Anemia and end stage renal disease. The patient's hemoglobin is 9.1. She will get a dose of Aranesp 200 mcg IV with hemodialysis on Tuesday. There is no urgent need of blood transfusion today. Thank you for involving us in the care of this patient. We shall be happy to follow the patient along with you tomorrow morning.
[2017-06-18] MEDS: GABAPENTIN 100 MG CAP PO SCH ×2 (13:55→22:25)
--- NOTE | 2017-06-18 13:57 | REP ---
MRI LEFT FOOT WITHOUT CONTRAST: Multiple sequences obtained in the axial, coronal and sagittal planes. No contrast was administered limiting evaluation for osteomyelitis. There does appear to be abnormal signal in the second, middle and distal phalanges with diffuse increased signal on STIR images and somewhat hypointense signal on T1-weighted images. Findings are compatible with osteomyelitis of the second, middle and distal phalanges. Mild ill-defined marrow edema is seen in the anterolateral calcaneus, in the lateral navicular and in the middle and lateral cuneiform bones most likely secondary to arthritic changes. There is diffuse edema in the soft tissues. I do not see a definite focal abscess. IMPRESSION: Findings compatible with osteomyelitis involving the second middle and distal phalanges. Signed by Aureliano Rivas MD 06/18/2017 03:21 P
[2017-06-18 14:00] VITALS: BP 168/74
[2017-06-18 17:56] VITALS: BP 182/75
[2017-06-18 22:00] VITALS: BP 114/55
[2017-06-18] MEDS: traZODone 100 MG TAB PO SCH (22:25)
[2017-06-18] MEDS: SIMVASTATIN 20 MG TAB PO SCH (22:26)
[2017-06-18] MEDS: EZETIMIBE 10 MG TAB (ZETIA) PO SCH (22:27)
[2017-06-19] VITALS (9 sets, daily range): BP systolic 150–191; BP diastolic 70–83
[2017-06-19] MEDS: **hydrALAZINE** 50 MG TAB PO SCH ×5 (01:00→23:53)
[2017-06-19] MEDS: LEVOTHYROXINE 100MCG TABLET (0.1MG) PO SCH (05:44)
[2017-06-19] MEDS: GABAPENTIN 100 MG CAP PO SCH ×3 (06:00→22:08)
[2017-06-19 06:48] LABS: MEAN CORPUSCULAR HEMOGLOBIN 32.4 pg (27.0-33.0); MEAN CORPUSCULAR HGB CONC 32.4 g/dl (32.0-36.5); MEAN CORPUSCULAR VOLUME 99.9 fl (80.0-96.0); WHITE BLOOD COUNT 6.2 K/mm3 (4.0-10.0)
[2017-06-19 07:15] LABS: ALBUMIN 2.6 GM/DL (3.2-5.2); CALCIUM LEVEL 7.9 MG/DL (8.8-10.2); CREATININE FOR GFR 4.18 MG/DL (0.55-1.02); GLOMERULAR FILTRATION RATE 11.3 (>45); MAGNESIUM LEVEL 2.2 MG/DL (1.8-2.4); PHOSPHORUS LEVEL 5.2 MG/DL (2.5-4.9); POTASSIUM SERUM 4.5 MEQ/L (3.5-5.1); VANCOMYCIN RANDOM 18.1 UG/ML
[2017-06-19] MEDS: HumaLOG INSULIN (NovoLOG) PER UNIT SC SCH ×4 (07:30→22:10)
[2017-06-19] MEDS ORDERED: LIDOCAINE 1% SDV INJ 30 ML VIAL As Ordered ONE (07:43)
[2017-06-19] MEDS ORDERED: BUPIVACAINE HCL 0.5% 30 ML VIAL As Ordered ONE (07:43)
[2017-06-19] MEDS: LACTOBACILLUS ACIDOPHILUS CAP (BACID) PO SCH ×3 (08:00→17:41)
[2017-06-19] MEDS ORDERED: MIDAZOLAM INJ 2 MG/2 ML VIAL (J2250) As Ordered ONE (08:44)
[2017-06-19] MEDS ORDERED: fentaNYL 100 MCG/2 ML INJECTION (J3010) As Ordered ONE (08:44)
[2017-06-19] MEDS ORDERED: PROPOFOL 200 MG/20 ML VIAL As Ordered ONE (08:44)
--- NOTE | 2017-06-19 09:33 | CR ---
DATE OF CONSULTATION: 06/18/2017 REASON FOR CONSULTATION: Left foot ulcer and cellulitis. Dalila Hernandez is a patient known to me who had presented to the hospital yesterday with worsening cellulitis from a toe wound. She was seen by me earlier this week on Tuesday with an ulceration that had developed on her left 2nd toe. Prior to this, she states the wound had been there a couple weeks. She had been in the hospital previous to this with congestive heart failure (CHF) exacerbation. Did note that she had been picking at the wound while in the hospital. The wound was debrided and she was started on clindamycin by me in the office on Tuesday. She states over the last few days the wound has been getting worse and redness has been spreading with some increased pain in the wound and in the leg. She notes that she has had a low grade fever. Denies other changes. PAST MEDICAL HISTORY: Significant for diabetes with elevated glucose, hypertension, high cholesterol, hypothyroidism, end-stage renal disease on dialysis, which she receives Tuesday/Tuesday/Tuesday, coronary artery disease with history of myocardial infarction, stent, CHF, anemia, neuropathy and retinopathy, restless leg syndrome, and obstructive sleep apnea. PAST SURGICAL HISTORY: Includes stents, AV fistulas, appendectomy, hysterectomy, cataract surgery, and cardiac stenting. ALLERGIES: To LYRICA. SOCIAL HISTORY: Denies smoking and alcohol use. FAMILY HISTORY: Noncontributory. HOME MEDICINES: Include: - Plavix - Cymbalta - Zetia - Neurontin - Humulin - levothyroxine - metoprolol - Zofran - Protonix - Requip - Zocor - torsemide - tramadol - trazodone - Toujeo VITAL SIGNS ON ADMISSION: Maximum temperature (Tmax) 97.7, pulse 62, respiratory rate 17, and blood pressure is 166/86 (max was 210/88). Pulse oximetry was 94% on room air. LABORATORIES: White blood cell count is 5.3. ESR 67. Hemoglobin 9.1. CRP 1.55. VASCULAR ULTRASOUND: Revealed no deep venous thrombosis (DVT) to left leg. LOWER EXTREMITY EXAMINATION: Pulses are palpable. There is mild edema to the left foot and lower extremity. There is an ulcer to the left 2nd toe with erythema extending approximately 3 inches proximal to the toe. Wound at the distal aspect of the toe with some fibrotic and necrotic tissue. There is palpable bone using probe to the distal toe. ASSESSMENT: 66-year-old female with diabetes, neuropathy, end-stage renal disease, and left 2nd toe diabetic ulceration with cellulitis, possible osteomyelitis. PLAN: Patient is scheduled for MRI today. Will consider amputation of distal aspect of toe based on result of this MRI. Presently, she is on cefepime and did receive vancomycin. Continue current antibiotics until cultures are available to be taken. Presently, the toe wound would not yield of accurate culture from bedside. Will consider surgery possibly tomorrow if MRI shows definitive signs of osteomyelitis.
[2017-06-19] MEDS ORDERED: fentaNYL 100 MCG/2 ML INJECTION (J3010) IV PRN (10:30)
[2017-06-19] MEDS ORDERED: NS 1,000 ML IV SCH (10:30)
[2017-06-19] MEDS ORDERED: ONDANSETRON 4MG/2ML VIAL (J2405) IV PRN (10:30)
--- NOTE | 2017-06-19 10:52 | IPNPDOC ---
Date Seen The patient was seen on 06/19/17. Progress Note Hospitalist Progress Note Subjective: Patient is seen on her way down to the operating room. She has no complaints, and is feeling well. Objective: Physical Exam: Vitals: Vital Sign - Last 24 Hours 06/18/17 06/18/17 06/18/17 06/18/17 12:00 12:52 14:00 17:52 Temp 97.2 Pulse 70 65 Resp 18 B/P (MAP) 114/70 114/70 (85) 168/74 (105) 182/75 Pulse Ox 94 O2 Delivery Room Air 06/18/17 06/18/17 06/18/17 06/18/17 17:56 21:00 22:00 23:08 Temp 97.6 Pulse 66 66 Resp 20 B/P (MAP) 182/75 (110) 114/55 114/55 (74) Pulse Ox 97 O2 Delivery Room Air Nasal Cannula O2 Flow Rate 2.0 06/18/17 06/19/17 06/19/17 06/19/17 23:24 01:00 06:00 06:00 Temp 96.6 Pulse 62 Resp 18 B/P (MAP) 151/60 158/76 (103) 158/76 Pulse Ox 98 94 O2 Delivery Nasal Cannula Nasal Cannula O2 Flow Rate 2.0 2.0 06/19/17 06/19/17 06/19/17 06/19/17 07:30 09:09 09:22 09:36 Temp 97.5 97.6 Pulse 67 62 64 Resp 16 18 18 B/P (MAP) 192/87 (122) 163/75 (104) 151/71 (97) Pulse Ox 99 93 99 O2 Delivery Room Air Room Air Room Air Nasal Cannula O2 Flow Rate 2 06/19/17 09:52 Temp 97.6 Pulse 65 Resp 18 B/P (MAP) 147/73 (97) Pulse Ox 99 O2 Delivery Nasal Cannula O2 Flow Rate 2 General: Awake, alert, no acute distress HEENT: Normocephalic, atraumatic, moist mucous membranes CV: Regular rate and rhythm Lungs: Clear to auscultation bilaterally Abd: Soft, nontender, nondistended Extremities: Erythema of the left second toe extending into the foot, with ulcer on the tip of the toe. Pedal pulses intact bilaterally. Neuro: Alert and oriented 3, normal speech Psych: Normal mood and affect Labs and Imaging: Laboratory Tests 06/19/17 06:32 Red Blood Count 3.12 L, Mean Corpuscular Volume 99.9 H, Mean Corpuscular Hemoglobin 32.4, Mean Corpuscular Hemoglobin Concent 32.4, Red Cell Distribution Width 16.0 H, Anion Gap 7 L Assessment and Plan: 66-year-old female with end-stage renal disease on hemodialysis, CAD status post PCI, chronic diastolic CHF, hypertension, JUAN not on CPAP, hypothyroidism, hyperlipidemia, anemia of chronic disease, GERD, diabetic retinopathy, restless leg syndrome, depression, diabetes mellitus type 2 who presented to the emergency department with worsening erythema and pain of the left lower extremity associated with a left second toe ulcer. She is admitted with cellulitis and uncontrolled diabetes mellitus and has been found to have osteomyelitis. She is undergoing amputation of the affected digit today. 1. Cellulitis and osteomyelitis of the left lower extremity: The patient had previously been following with Dr. Gutierres and has failed outpatient therapy with clindamycin. We have consulted him for further management. MRI shows osteo, and he is taking her for amputation today. Left lower extremity Doppler shows no evidence of DVT. We'll continue the patient on vancomycin and cefepime, and follow-up blood cultures and path report. She is currently afebrile with a normal white count. 2. End-stage renal disease on hemodialysis: We have consulted nephrology and appreciate their help with managing dialysis. 3. CAD status post PCI, hyperlipidemia: The patient is currently without any chest pain. We will continue her on her home Zetia, beta jeffrey, statin, Plavix. 4. Chronic diastolic CHF: The patient currently appears euvolemic. She states that she still makes urine and takes torsemide at home, which we will continue. 5. Hypertension: Continue home beta jeffrey, hydralazine, torsemide. 6. Hypothyroidism: Continue home Synthroid. 7. GERD: Continue home PPI. 8. Restless leg syndrome: Continue home Requip, gabapentin. 9. Depression: Continue home trazodone, Cymbalta. 10. Diabetes mellitus type 2: Glucoses were uncontrolled (hyperglycemic) on admission. The patient received 10 units of regular insulin, and we will continue her home Levemir at 80 units twice a day, as well as use sliding scale insulin while in-house. Fingersticks now much improved. DVT prophylaxis: Heparin Dispo: pending culture results VS, I&O, 24H, Fishbone Vital Signs/I&O Vital Signs Date Time Temp Pulse Resp B/P (MAP) Pulse Ox O2 Delivery O2 Flow Rate FiO2 06/19/17 09:52 97.6 65 18 147/73 (97) 99 Nasal Cannula 2 I&O- Last 24 Hours up to 6 AM 06/19/17 06:00 Intake Total 1160 ml Output Total 1000 ml Balance 160 ml Laboratory Data 24H LABS Laboratory Tests 2 06/18/17 11:36: Bedside Glucose (Misc Panel) 358H 06/18/17 14:09: Estimated Mean Plasma Glucose 223H, Hemoglobin A1c 9.4H 06/18/17 17:08: Bedside Glucose (Misc Panel) 246H 06/18/17 20:16: Bedside Glucose (Misc Panel) 142H 06/19/17 06:32: Blood Urea Nitrogen 53#H, Creatinine 4.18H, Sodium Level 136, Potassium Level 4.5, Chloride Level 100, Carbon Dioxide Level 29, Anion Gap 7L, Glomerular Filtration Rate 11.3L, Calcium Level 7.9L, Phosphorus Level 5.2H, Magnesium Level 2.2, C-Reactive Protein, Quantitative 1.22H, Albumin 2.6L, Random Vancomycin Level 18.1 06/19/17 09:11: Bedside Glucose (Misc Panel) 139H CBC/BMP Laboratory Tests 06/19/17 06:32 Red Blood Count 3.12 L, Mean Corpuscular Volume 99.9 H, Mean Corpuscular Hemoglobin 32.4, Mean Corpuscular Hemoglobin Concent 32.4, Red Cell Distribution Width 16.0 H, Anion Gap 7 L Microbiology Microbiology 06/18/17 Blood Culture, Received Pending 06/18/17 Blood Culture - Preliminary, Resulted No growth after 24 hours . All specim... SANDRA GILBERT Jun 19, 2017 10:52
[2017-06-19] MEDS ORDERED: VANCOMYCIN HCL 1,000 MG, VIAL MATE ADAPTER 1 EACH in D5W 250 ML IV ONE (11:00)
[2017-06-19] MEDS: PANTOPRAZOLE 40MG TAB (PROTONIX) PO SCH (11:05)
[2017-06-19] MEDS: rOPINIRole 1MG TAB PO SCH ×2 (11:05→22:06)
[2017-06-19] MEDS: TORSEMIDE 100 MG TAB PO SCH ×2 (11:05→22:07)
[2017-06-19] MEDS: DULoxetine 30 MG CAP (CYMBALTA) PO SCH (11:06)
[2017-06-19] MEDS: METOPROLOL SUCC (TopROL XL) 50MG **XL** TAB PO SCH ×2 (11:06→22:07)
[2017-06-19] MEDS: SENOKOT S TAB PO SCH ×2 (11:06→22:08)
[2017-06-19] MEDS: CEFEPIME HCL 1 GM in D5W MINI-BAG PLUS 50 ML IV SCH (11:06)
[2017-06-19] MEDS: amLODIPine 5 MG TAB PO SCH (13:19)
[2017-06-19] MEDS: PERCOCET 5MG/325MG TAB PO PRN ×2 (13:20→20:39)
[2017-06-19] MEDS: LEVEMIR (INSULIN DETEMIR) 1 UNITS/0.01ML SC SCH (21:00)
[2017-06-19] MEDS: SIMVASTATIN 20 MG TAB PO SCH (22:08)
[2017-06-19] MEDS: EZETIMIBE 10 MG TAB (ZETIA) PO SCH (22:08)
[2017-06-19] MEDS: traZODone 100 MG TAB PO SCH (22:08)
[2017-06-20 06:00] VITALS: BP 184/82
[2017-06-20] MEDS: GABAPENTIN 100 MG CAP PO SCH ×3 (06:17→22:10)
[2017-06-20] MEDS: LACTOBACILLUS ACIDOPHILUS CAP (BACID) PO SCH ×3 (06:17→15:38)
[2017-06-20] MEDS: LEVOTHYROXINE 100MCG TABLET (0.1MG) PO SCH (06:18)
[2017-06-20] MEDS: SENOKOT S TAB PO SCH ×2 (06:18→22:11)
[2017-06-20] MEDS: TORSEMIDE 100 MG TAB PO SCH ×2 (06:18→22:10)
[2017-06-20] MEDS: PANTOPRAZOLE 40MG TAB (PROTONIX) PO SCH (06:18)
[2017-06-20] MEDS: DULoxetine 30 MG CAP (CYMBALTA) PO SCH (06:18)
[2017-06-20] MEDS: **hydrALAZINE** 50 MG TAB PO SCH ×3 (06:19→17:05)
[2017-06-20 06:41] LABS: MEAN CORPUSCULAR HEMOGLOBIN 32.2 pg (27.0-33.0); MEAN CORPUSCULAR HGB CONC 32.3 g/dl (32.0-36.5); MEAN CORPUSCULAR VOLUME 99.8 fl (80.0-96.0); WHITE BLOOD COUNT 6.8 K/mm3 (4.0-10.0)
[2017-06-20 06:58] LABS: ALBUMIN 2.5 GM/DL (3.2-5.2); CALCIUM LEVEL 7.7 MG/DL (8.8-10.2); CREATININE FOR GFR 5.25 MG/DL (0.55-1.02); GLOMERULAR FILTRATION RATE 8.7 (>45); MAGNESIUM LEVEL 2.2 MG/DL (1.8-2.4); PHOSPHORUS LEVEL 5.5 MG/DL (2.5-4.9); POTASSIUM SERUM 4.9 MEQ/L (3.5-5.1)
[2017-06-20] MEDS: HumaLOG INSULIN (NovoLOG) PER UNIT SC SCH ×4 (07:30→22:12)
[2017-06-20] MEDS: METOPROLOL SUCC (TopROL XL) 50MG **XL** TAB PO SCH ×2 (08:40→22:09)
[2017-06-20] MEDS: HEPARIN SOD (PORCINE) 5000 UNITS/ML VIAL SC SCH ×2 (08:43→22:09)
[2017-06-20] MEDS: PERCOCET 5MG/325MG TAB PO PRN ×3 (08:56→22:20)
[2017-06-20] MEDS: rOPINIRole 1MG TAB PO SCH ×2 (08:57→22:10)
[2017-06-20] MEDS: LEVEMIR (INSULIN DETEMIR) 1 UNITS/0.01ML SC SCH ×2 (08:59→22:11)
[2017-06-20] MEDS: amLODIPine 5 MG TAB PO SCH (09:00)
[2017-06-20] MEDS ORDERED: PREVNAR 13 VACCINE SYRINGE (CPT CODE:90670) IM ONE (09:00)
[2017-06-20 09:15] VITALS: BP 149/68
[2017-06-20] MEDS ORDERED: VANCOMYCIN HCL 1,000 MG, VIAL MATE ADAPTER 1 EACH in D5W 250 ML IV SCH (09:30)
--- NOTE | 2017-06-20 10:39 | IPN ---
DATE: 06/19/2017 SUBJECTIVE: Patient was seen and examined at the bedside today morning. Patient just came back from the operating room. She got the surgery for left second toe, which was amputated because of osteomyelitis. REVIEW OF SYSTEMS: Patient is awake and alert. She is hemodynamically stable at this time. The patient denies any fevers, chills, rigors, headache, nausea, vomiting, chest pain, pain in the abdomen, constipation or diarrhea. She reports moderate amount of pain in the left second toe amputation site. OBJECTIVE: VITAL SIGNS: Temperature is 97.6 degrees Fahrenheit, blood pressure is 147/73, pulse is 65, respiratory rate of 18, saturating at 99% on nasal cannula. INTAKE and OUTPUT: Urine output recorded as 400 mL yesterday and 600 mL so far today since overnight. Weight in the bed scale is 86.6 kg. PHYSICAL EXAMINATION: GENERAL: Patient is awake, alert, oriented times three, laying in bed, in no apparent distress. HEAD and NECK EXAM: Extraocular muscles intact. Pupils equally round and reactive to light. Mucous membranes are moist. Neck is supple, there is no jugular venous distention (JVD). CARDIOVASCULAR: S1, S2, regular rate. No murmur, rub, or gallop. RESPIRATORY: Chest is clear to auscultation bilaterally. Bilateral equal air entry. No rales or rhonchi. MUSCULOSKELETAL: Normal range of motion. No clubbing or cyanosis. The patient has a dressing on the left second toe amputation site. CENTRAL NERVOUS SYSTEM: No focal neurological deficit. Power is 5/5 in bilateral upper extremities. PSYCHIATRIC: Normal mood and affect. LABORATORY REVIEW: CBC showed WBC 6.2, hemoglobin 10.1, platelets of 151. BMP showed sodium 136, potassium 4.5, chloride 100, bicarbonate 29, BUN 53, creatinine is 4.1, albumin 2.6. CURRENT INPATIENT MEDICATIONS: Patient's medications were all reviewed by me. There is no change in the medications today as compared with yesterday; however, the patient was on IV fluids that I stopped because the patient is going to start her diet right now. ASSESSMENT: 66-year-old female with past medical history of end-stage renal disease on hemodialysis every Tuesday, Tuesday, Tuesday, diabetes mellitus type 2, hypertension, hypothyroidism, history of congestive heart failure (CHF) with diastolic dysfunction, admitted this time because of left second toe osteomyelitis. PLAN: 1. End-stage renal disease on hemodialysis. Patient's regular days of dialysis are Tuesday, Tuesday, Tuesday. No urgent need of hemodialysis today. Next hemodialysis session will be tomorrow as per her regular schedule. 2. Left second toe osteomyelitis, status post amputation. The patient just came back from the operating room and surgical notes are not available. The patient most likely got the amputation of the left second toe, middle and distal phalanx. Continue IV antibiotics. The rest of the management is as per podiatry, Dr. Gutierres. 3. Insulin dependent diabetes. The patient's diabetes is better controlled now. Continue Levemir and insulin sliding scale as per primary team. 4. Hypertension. Blood pressure was elevated. Continue home dose of metoprolol 50 mg by mouth twice a day. She has been started on hydralazine 50 mg every 6 hours. I am going to start the patient on amlodipine 10 mg by mouth daily. 5. Anemia and end stage renal disease. Hemoglobin is 10.1, which is acceptable. The patient will get a dose of Aranesp 200 mcg IV with hemodialysis tomorrow.
[2017-06-20] MEDS ORDERED: HEPARIN 1,000 UNITS/ML 10ML VIAL (FOR RADIOLOGY& DIALYSIS ONLY) IV ONE (11:00)
--- NOTE | 2017-06-20 13:36 | RO ---
DATE OF PROCEDURE: 06/19/2017 PREPROCEDURE DIAGNOSIS: Left second toe ulceration and osteomyelitis. POSTPROCEDURE DIAGNOSIS: Left second toe ulceration and osteomyelitis. PROCEDURE: Left second toe amputation. SURGEON: DR. Hubert Gutierres. SPEECH THERAPY ASSISTANT: None. ANESTHESIA: Monitored anesthesia care. Preoperative injection of 10 mL of 1:1 mixture of 1% lidocaine plain and 0.5% Marcaine plain. ESTIMATED BLOOD LOSS: Minimal. MATERIALS USED: #3-0 nylon. INJECTABLES: None. COMPLICATIONS: None. CONDITION: Stable. SPECIMENS: Left second toe. Dalila Hernandez is a 66-year-old female who presented to [facility] with worsening infection to her left second toe. She had been seen in my office on Tuesday with a wound that had apparently been there several weeks. Debridement was performed and she was discharged on oral clindamycin. She noted worsening redness and pain to the wound and presented to the hospital. At that time, she was seen by me and the ulceration had worsened with positive probe to bone. An MRI was obtained which also showed findings suggestive of osteomyelitis to the second toe bones. The decision was made to bring her to the operating room for amputation of the second toe. The patient's side and site were identified and marked preop holding area. Consent was reviewed and obtained. The risks, complications and alternatives to the procedure explained to the patient in detail. Questions were answered. DESCRIPTION OF PROCEDURE: The patient was brought to the operating room and placed on the operating room table in supine position. Monitored anesthesia care was given by the anesthesia team. Preoperative injection of 10 mL of 1:1 mixture of 1% lidocaine plain and 0.5% Marcaine plain were injected of the left foot. The left foot was prepped and draped in the normal sterile fashion. No tourniquet was used during the procedure. A bracket type incision was made surrounding the left distal aspect of the left second toe. This was carried full thickness with #15 blade. The toe was dissected down to the proximal interphalangeal joint. The toe was disarticulated at this joint. The head of the proximal phalanx was healthy in appearance without signs of obvious bone infection. A Bovie was used to obtain hemostasis. The site was irrigated with normal saline and skin closure was performed with #3-0 nylon. Culture swabs were taken of the amputated bone for aerobic and anaerobic cultures and the remaining portion of the bone was sent for pathology. Sterile dressing was applied. The patient was brought to the postanesthesia care unit (PACU) with vital signs stable, neurovascular status intact. She will be re-admitted onto the floor for continued antibiotics. Continue current one until operating room (OR) cultures are available.
[2017-06-20 14:00] VITALS: BP 152/74
[2017-06-20] MEDS ORDERED: CYCLOBENZAPRINE 5MG TABLET PO PRN (14:45)
--- NOTE | 2017-06-20 14:45 | IPNPDOC ---
Date Seen The patient was seen on 06/20/17. Progress Note Hospitalist Progress Note Subjective: Patient reports some pain in her left shoulder, where she has a known rotater cuff tear Objective: Physical Exam: Vitals: Vital Sign - Last 24 Hours 06/19/17 06/19/17 06/19/17 06/19/17 17:41 18:32 20:00 20:39 Resp 18 B/P (MAP) 174/76 Pulse Ox 97 O2 Delivery Room Air Room Air Room Air 06/19/17 06/19/17 06/19/17 06/19/17 21:00 21:09 22:07 23:53 Temp 101.5 Pulse 78 78 Resp 20 B/P (MAP) 155/70 (98) 155/70 136/62 Pulse Ox 97 96 O2 Delivery Room Air Room Air 06/19/17 06/20/17 06/20/17 06/20/17 23:55 06:00 06:19 08:40 Temp 98.1 96.9 Pulse 70 18 Resp 18 B/P (MAP) 184/82 (116) 182/84 149/68 Pulse Ox 95 O2 Delivery Room Air 06/20/17 06/20/17 06/20/17 06/20/17 08:56 09:00 09:15 09:26 Pulse 18 98 Resp 18 18 B/P (MAP) 149/68 149/68 (95) Pulse Ox 99 06/20/17 12:00 B/P (MAP) 149/68 General: Awake, alert, no acute distress HEENT: Normocephalic, atraumatic, moist mucous membranes CV: Regular rate and rhythm Lungs: Clear to auscultation bilaterally Abd: Soft, nontender, nondistended Extremities: left foot is wrapped in kerlex; mild swelling of lower left leg Neuro: Alert and oriented 3, normal speech Psych: Normal mood and affect Labs and Imaging: Laboratory Tests 06/20/17 06:24 Red Blood Count 3.00 L, Mean Corpuscular Volume 99.8 H, Mean Corpuscular Hemoglobin 32.2, Mean Corpuscular Hemoglobin Concent 32.3, Red Cell Distribution Width 16.0 H, Anion Gap 7 L Assessment and Plan: 66-year-old female with end-stage renal disease on hemodialysis, CAD status post PCI, chronic diastolic CHF, hypertension, JUAN not on CPAP, hypothyroidism, hyperlipidemia, anemia of chronic disease, GERD, diabetic retinopathy, restless leg syndrome, depression, diabetes mellitus type 2 who presented to the emergency department with worsening erythema and pain of the left lower extremity associated with a left second toe ulcer. She is admitted with cellulitis and uncontrolled diabetes mellitus and has been found to have osteomyelitis. She is s/p amputation of the distal portion of the affected digit. 1. Cellulitis and osteomyelitis of the left lower extremity: The patient had previously been following with Dr. Gutierres and has failed outpatient therapy with clindamycin. We have consulted him for further management. MRI shows osteo, and is now s/p amputation of the distal portion of her left 2nd toe. Left lower extremity Doppler shows no evidence of DVT. We'll continue the patient on vancomycin and cefepime, and follow-up blood cultures and path report. She currently has a normal white count, although she did have a fever last night. 2. End-stage renal disease on hemodialysis: We have consulted nephrology and appreciate their help with managing dialysis. 3. CAD status post PCI, hyperlipidemia: The patient is currently without any chest pain. We will continue her on her home Zetia, beta jeffrey, statin, Plavix. 4. Chronic diastolic CHF: The patient currently appears euvolemic. She states that she still makes urine and takes torsemide at home, which we will continue. 5. Hypertension: Continue home beta jeffrey, hydralazine, torsemide. 6. Hypothyroidism: Continue home Synthroid. 7. GERD: Continue home PPI. 8. Restless leg syndrome: Continue home Requip, gabapentin. 9. Depression: Continue home trazodone, Cymbalta. 10. Diabetes mellitus type 2: Glucoses were uncontrolled (hyperglycemic) on admission. The patient received 10 units of regular insulin, and we will continue her home Levemir at 80 units twice a day, as well as use sliding scale insulin while in-house. Fingersticks now much improved. DVT prophylaxis: Heparin Dispo: pending culture results VS, I&O, 24H, Fishbone Vital Signs/I&O Vital Signs Date Time Temp Pulse Resp B/P (MAP) Pulse Ox O2 Delivery O2 Flow Rate FiO2 06/20/17 12:00 149/68 06/20/17 09:26 18 06/20/17 09:15 98 06/20/17 08:56 99 06/20/17 06:00 96.9 Room Air 06/19/17 10:15 2.0 I&O- Last 24 Hours up to 6 AM 06/20/17 06:00 Intake Total 940 ml Output Total 1960 ml Balance -1020 ml Laboratory Data 24H LABS Laboratory Tests 2 06/19/17 17:21: Bedside Glucose (Misc Panel) 297H 06/19/17 21:21: Bedside Glucose (Misc Panel) 260H 06/20/17 06:24: Blood Urea Nitrogen 66H, Creatinine 5.25H, Sodium Level 137, Potassium Level 4.9 , Chloride Level 101, Carbon Dioxide Level 29, Anion Gap 7L, Glomerular Filtration Rate 8.7L, Calcium Level 7.7L, Phosphorus Level 5.5H, Magnesium Level 2.2, C-Reactive Protein, Quantitative 1.34H, Albumin 2.5L CBC/BMP Laboratory Tests 06/20/17 06:24 Red Blood Count 3.00 L, Mean Corpuscular Volume 99.8 H, Mean Corpuscular Hemoglobin 32.2, Mean Corpuscular Hemoglobin Concent 32.3, Red Cell Distribution Width 16.0 H, Anion Gap 7 L Microbiology Microbiology 06/18/17 Blood Culture - Preliminary, Resulted No Growth after 48 hours. All Specime... 06/18/17 Blood Culture - Preliminary, Resulted No Growth after 48 hours. All Specime... 06/19/17 Gram Stain - Final, Resulted 06/19/17 Wound Culture, Resulted Pending 06/19/17 Anaerobic Culture, Resulted Pending SANDRA GILBERT Jun 20, 2017 14:45
[2017-06-20] MEDS: CLOPIDOGREL 75 MG TAB PO SCH (15:38)
[2017-06-20] MEDS ORDERED: CHECK TO SEE IF PATIENT IS RECEIVING DIALYSIS TODAY AND REFER TO THE VANCOMYCIN ORDER XX SCH (16:00)
[2017-06-20] MEDS ORDERED: diphenhydrAMINE 25 MG CAP PO PRN (16:30)
--- NOTE | 2017-06-20 16:51 | IPN ---
DATE: 06/20/2017 SUBJECTIVE: The patient was seen and examined at the bedside today, morning, during hemodialysis procedure. She is tolerating the hemodialysis procedure well. She denies any active complaints at this time. REVIEW OF SYSTEMS: The patient denies any fever, chills, rigors, headache, nausea, vomiting, chest pain, shortness of breath, pain in abdomen, constipation or diarrhea. The patient reports that she does have left 2nd toe amputation site pain, which is optimized with pain medication at this time. The rest of the review of systems is negative. OBJECTIVE: VITAL SIGNS: Temperature is 98.1 degrees Fahrenheit, blood pressure is 149/68, pulse is 98, respiratory rate of 18, saturating 99% on room air. INTAKE/OUTPUT: Urine output recorded as 2.1 liters yesterday, 400 mL so far today. Weight on the bed scale is not available today. PHYSICAL EXAMINATION: GENERAL: The patient is awake, alert, oriented times three, laying in bed, getting hemodialysis done, no apparent distress. HEAD AND NECK EXAM: Extraocular muscles intact. Pupils equally round and reactive to light. Mucous membranes are moist. Neck is supple. There is no jugular venous distention (JVD). CARDIOVASCULAR: S1, S2, regular rate. No murmur, rub or gallop. RESPIRATORY: Chest is clear to auscultation bilaterally. Bilateral equal air entry. No rales or rhonchi. ABDOMEN: Abdomen is soft. Positive bowel sounds, nontender. No ascites. No organomegaly. MUSCULOSKELETAL: Normal range of movement. The patient has a dressing at the left 2nd toe amputation site. CENTRAL NERVOUS SYSTEM: No focal neurological deficit. Power is 5/5 in all extremities. PSYCHIATRIC: Normal mood and affect. LAB REVIEW: CBC showed a WBC of 6.8, hemoglobin 9.7, platelets are 151. BMP showed sodium 137, potassium 4.9, chloride 101, bicarbonate 29, BUN 66, creatinine is 5.2. CURRENT INPATIENT MEDICATIONS: The patient's medications were all reviewed by me. She continues to be on intravenous (IV) vancomycin with hemodialysis and IV cefepime. There is no other change in the medications today as compared with yesterday. ASSESSMENT: A 66-year-old female with past medical history of end-stage renal disease, on hemodialysis every Tuesday, Tuesday, Tuesday, diabetes mellitus - type 2, hypertension, hypothyroidism, history of congestive heart failure with diastolic dysfunction, admitted at this time because of left 2nd toe osteomyelitis. PLAN: 1. End-stage renal disease. The patient is being dialyzed at this time according to her Tuesday, Tuesday, Tuesday schedule. We shall try to do an ultrafiltration of about 2.5 to 3 kg as tolerated by her blood pressure. 2. Left 2nd toe osteomyelitis, status post amputation of the left 2nd toe. The patient is currently on IV vancomycin and cefepime. Dose and duration of the antibiotics as per podiatry and primary care team. 3. Hypertension. The patient's blood pressure has been elevated for the last 2 days. She was started on amlodipine 5 mg by mouth daily in addition to hydralazine 50 mg by mouth every 6 hours that was started during this hospitalization as well. Hemodialysis and ultrafiltration would also help lower the blood pressure. 4. Anemia in end-stage renal disease. Hemoglobin is 9.7, which is slightly suboptimal. The patient will be given a dose of Aranesp 200 mcg IV with hemodialysis today. 5. Insulin-dependent diabetes. The patient is currently on Levemir and insulin sliding scale. Glucose is not very well controlled at this time. If needed, Levemir dose can be increased.
--- NOTE | 2017-06-20 17:01 | IPN ---
DATE: 06/20/2017 The patient was seen and examined at dialysis. Denies overnight complaints. Denies nausea, vomiting, fever, states not much pain in her foot. VITAL SIGNS: Maximum temperature (T max) was 101.5 at 2100 hours last night, presently is 96.9. LABORATORY: White blood cell count 6.8, creatinine is 1.34. OR gram stain showed no organisms. Growth is pending. Pathology for toe is pending. LOWER EXTREMITY EXAMINATION: Dressing is clean, dry, intact. No signs of sanguineous drainage, thin dressing. ASSESSMENT: This patient is a 66-year-old female with diabetes, osteomyelitis, status post left 2nd toe amputation. PLAN: Continue antibiotics, await speciation from operation room. Will plan to change dressing tomorrow.
[2017-06-20] MEDS: CEFEPIME HCL 1 GM in D5W MINI-BAG PLUS 50 ML IV SCH (17:54)
[2017-06-20 22:00] VITALS: BP 142/67
[2017-06-20] MEDS: EZETIMIBE 10 MG TAB (ZETIA) PO SCH (22:09)
[2017-06-20] MEDS: SIMVASTATIN 20 MG TAB PO SCH (22:10)
[2017-06-20] MEDS: traZODone 100 MG TAB PO SCH (22:10)
[2017-06-21] MEDS: **hydrALAZINE** 50 MG TAB PO SCH ×4 (00:40→18:19)
[2017-06-21 06:00] VITALS: BP 150/68
[2017-06-21] MEDS: LEVOTHYROXINE 100MCG TABLET (0.1MG) PO SCH (06:08)
[2017-06-21] MEDS: GABAPENTIN 100 MG CAP PO SCH ×3 (06:08→21:49)
[2017-06-21 07:00] LABS: MEAN CORPUSCULAR HEMOGLOBIN 31.8 pg (27.0-33.0); MEAN CORPUSCULAR HGB CONC 32.1 g/dl (32.0-36.5); MEAN CORPUSCULAR VOLUME 99.3 fl (80.0-96.0); RED CELL DISTRIBUTION WIDTH 15.8 % (11.5-14.5); WHITE BLOOD COUNT 6.5 K/mm3 (4.0-10.0)
[2017-06-21 07:32] LABS: ALBUMIN 2.3 GM/DL (3.2-5.2); CALCIUM LEVEL 7.7 MG/DL (8.8-10.2); CREATININE FOR GFR 3.82 MG/DL (0.55-1.02); GLOMERULAR FILTRATION RATE 12.5 (>45); MAGNESIUM LEVEL 2.3 MG/DL (1.8-2.4); PHOSPHORUS LEVEL 4.9 MG/DL (2.5-4.9); POTASSIUM SERUM 3.8 MEQ/L (3.5-5.1)
[2017-06-21] MEDS: LACTOBACILLUS ACIDOPHILUS CAP (BACID) PO SCH ×3 (07:55→17:27)
[2017-06-21] MEDS: TORSEMIDE 100 MG TAB PO SCH ×2 (07:56→21:48)
[2017-06-21] MEDS: HumaLOG INSULIN (NovoLOG) PER UNIT SC SCH ×4 (07:57→21:00)
[2017-06-21] MEDS: CLOPIDOGREL 75 MG TAB PO SCH (07:58)
[2017-06-21] MEDS: rOPINIRole 1MG TAB PO SCH ×2 (07:58→21:49)
[2017-06-21] MEDS: HEPARIN SOD (PORCINE) 5000 UNITS/ML VIAL SC SCH ×2 (07:58→21:51)
[2017-06-21] MEDS: SENOKOT S TAB PO SCH ×2 (07:59→21:49)
[2017-06-21] MEDS: METOPROLOL SUCC (TopROL XL) 50MG **XL** TAB PO SCH ×2 (07:59→21:50)
[2017-06-21] MEDS: PANTOPRAZOLE 40MG TAB (PROTONIX) PO SCH (07:59)
[2017-06-21] MEDS: LEVEMIR (INSULIN DETEMIR) 1 UNITS/0.01ML SC SCH ×2 (08:01→21:51)
[2017-06-21] MEDS: amLODIPine 5 MG TAB PO SCH (08:01)
[2017-06-21] MEDS: DULoxetine 30 MG CAP (CYMBALTA) PO SCH (09:55)
[2017-06-21] MEDS: CEFEPIME HCL 1 GM in D5W MINI-BAG PLUS 50 ML IV SCH (09:55)
[2017-06-21] MEDS: PERCOCET 5MG/325MG TAB PO PRN (12:33)
--- NOTE | 2017-06-21 16:52 | IPN ---
DATE: 06/21/2017 SUBJECTIVE: The patient was seen and examined at the bedside today, morning. The patient is drowsy and sleepy. She reports that she is having diarrhea at this time, and she is nauseated. The patient tolerated the hemodialysis procedure well yesterday. REVIEW OF SYSTEMS: The patient denies any fever, chills, rigors, chest pain, shortness of breath. She reports nausea, and she reports diarrhea. She denies any pain in abdomen, constipation. The rest of the review of systems is negative. OBJECTIVE: VITAL SIGNS: Temperature is 98.7 degrees Fahrenheit. Blood pressure is 127/60, pulse is 72, respiratory rate of 16, saturating 96% on room air. INTAKE/OUTPUT: Urine output recorded as 1.5 liters yesterday, 200 mL so far today since overnight. Ultrafiltration with hemodialysis was 2 liters. Weight on the bed scale is stable at 86.3 kg. PHYSICAL EXAMINATION: GENERAL: The patient is awake, alert, oriented times three, laying in bed, in no apparent distress. HEAD AND NECK EXAM: Extraocular muscles intact. Pupils equally round and reactive to light. Mucous membranes are moist. Neck is supple. There is no jugular venous distention (JVD). CARDIOVASCULAR: S1, S2, regular rate. No murmur, rub or gallop. RESPIRATORY: Chest is clear to auscultation bilaterally. Bilateral equal air entry. No rales or rhonchi. ABDOMEN: Abdomen is soft. Positive bowel sounds, nontender. No ascites, no organomegaly. MUSCULOSKELETAL: Normal range of movement. The patient has a dressing on the left 2nd toe amputation site. CENTRAL NERVOUS SYSTEM: No focal neurological deficit. Power is 5/5 in all extremities. PSYCHIATRIC: Normal mood and affect. LAB REVIEW: CBC showed a WBC of 6.5, hemoglobin 9.2, platelets of 114. BMP showed sodium 134, potassium 3.8, chloride 97, bicarbonate 29, BUN 37, creatinine is 3.8, calcium 7.7, phosphorus 4.9, magnesium is 2.3, albumin 2.3. Microbiology: Clostridium difficile (C diff) PCR is negative. Wound culture is growing Staphylococcus caprae. CURRENT INPATIENT MEDICATIONS: The patient's medications were all reviewed by me. She continues to be on intravenous (IV) cefepime and IV vancomycin with hemodialysis. There is no other change in the medications today as compared with yesterday. ASSESSMENT: A 66-year-old female with a past medical history of end-stage renal disease, on hemodialysis every Tuesday, Tuesday, Tuesday, diabetes mellitus type 2, hypertension, hypothyroidism, history of congestive heart failure with diastolic dysfunction, admitted at this time because of left 2nd toe osteomyelitis. PLAN: 1. End-stage renal disease. The patient's regular dialysis days are Tuesday, Tuesday, Tuesday. She was dialyzed yesterday. Next hemodialysis session will be tomorrow. 2. Left 2nd toe osteomyelitis, status post amputation. The patient is currently on IV vancomycin and cefepime. Wound culture is growing Staphylococcus caprae. Antibiotic dose will be tapered down once these sensitivities are back. 3. Hypertension. Blood pressure is acceptable at this time. Continue current dose of amlodipine and hydralazine. 4. Anemia in end-stage renal disease. Hemoglobin is staying at 9.2, which is slightly suboptimal. However, there is no need of blood transfusion. The patient was started on Aranesp 200 mcg IV with hemodialysis. 5. Diarrhea. The patient's Clostridium difficile is negative. Consider tapering down the antibiotic once the sensitivity results are back.
--- NOTE | 2017-06-21 17:12 | IPN ---
DATE: 06/21/2017 The patient was seen and examined at the bedside, states a little nausea, a little diarrhea overnight. Denies pain in the foot. Vitals are examined. She has been afebrile over the last 24 hours. LABS: White cell count 6.5, CRP is 1.55. OR cultures have grown Staphylococcus (staph) caprae. She did hae a Clostridium difficile culture taken today. LOWER EXTREMITY EXAMINATION: Amputation site with sutures intact. No signs of dehiscence. Good capillary refill to incision margins Erythema is improved to the foot. ASSESSMENT: A 66-year-old diabetic female, left 2nd toe wound status post amputation. PLAN: Dressing reapplied. Will get ambulated as tolerated and postoperative shoe. She is okay from a podiatry standpoint for discharge once assured that she does not have Clostridium difficile. Recommend oral coverage for the staph for 2 weeks. She will followup with me 2 days after discharge.
[2017-06-21] MEDS ORDERED: LACTOBACILLUS ACIDOPHILUS CAP (BACID) PO SCH (18:00)
--- NOTE | 2017-06-21 18:07 | IPN ---
DATE: 06/21/2017 SUBJECTIVE: The patient complains of several episodes of diarrhea this morning. She tells me that she feels nauseous, but she does not have any pain in her belly or tenderness. She denies any chest pain, shortness of breath, fevers, chills. OBJECTIVE: VITAL SIGNS: Temperature 98.7 with a maximum temperature (t-max) on the of 101.5. No recent fevers. Pulse 72, respiratory rate 18, blood pressure 121/69, oxygen saturation 96% on room air. GENERAL: She is an elderly, morbidly obese, female lying flat in bed. She does not appear to be in any acute distress. She does appear tired and mildly uncomfortable, however. HEENT: Cranial nerves II through XII are grossly intact. She has moist mucous membranes. No elevation in central venous pressure. CARDIOVASCULAR EXAM: S1, S2. Regular. RESPIRATORY EXAM: Clear. Diminished breath sounds at the bases. ABDOMINAL EXAM: Grossly obese. Appears to be mildly distended. There is no tenderness to palpation. LABORATORY DATA: WBC 6.5, hemoglobin 9.2, hematocrit 28.8, platelet count 114. Chemistry panel: Sodium 134, potassium 3.8, chloride 97, bicarbonate 29, BUN 37, creatinine 3.8. Microbiology: Toe culture revealed Staphylococcus caprae. Blood cultures are negative after 72 hours. IMAGING: No new imaging. ASSESSMENT AND PLAN: This is a 66-year-old female with osteomyelitis of the left lower extremity. 1. Osteomyelitis. Dr. Gutierres's help has been greatly appreciated. She is status post amputation of her left second toe. There is no evidence of deep vein thrombosis (DVT) on ultrasound. She has currently been on vancomycin and cefepime. Given that we have cultures, I will narrow spectrum to doxycycline 100 mg by mouth twice a day. She is currently afebrile. She does not have any leukocytosis. She does appear to be improving well. We will have her work with physical therapy (PT) today and have her weight bearing status delineated by Dr. Gutierres. 2. End stage renal disease. On hemodialysis. Nephrology's help has been greatly appreciated. They are managing her dialysis schedule. 3. Diarrhea, likely related to antibiotics. We will check Clostridium (C) difficile. She is on Bacid. We are narrowing the spectrum of antibiotics. I suspect she may improve if her diarrhea is resolved. I suspect she could be discharged as early as tomorrow morning. 4. Diastolic congestive heart failure (CHF). The patient is euvolemic and well compensated. She takes torsemide. Her blood pressure is well controlled. 5. Coronary artery disease. The patient is on beta jeffrey, statin, Plavix. 6. Hypertension. She is on beta jeffrey, hydralazine, torsemide. 7. Hypothyroidism. She is on Synthroid. 8. Gastroesophageal reflux disease (GERD). She is on proton pump inhibitor. 9. Restless legs. She is on Requip and gabapentin. 10. Depression. The patient is on trazodone and Cymbalta. 11. Type 2 diabetes. She is on sliding scale, as well as her home coverage. 12. Deep vein thrombosis (DVT) prophylaxis. The patient is on heparin. DISPOSITION: I suspect that the patient may be able to be discharged within the next 24 hours provided her diarrhea resolves and her clinical status is improved.
[2017-06-21] MEDS: EZETIMIBE 10 MG TAB (ZETIA) PO SCH (21:49)
[2017-06-21] MEDS: DOXYCYCLINE HYCLATE 100 MG TAB PO SCH (21:49)
[2017-06-21] MEDS: traZODone 100 MG TAB PO SCH (21:49)
[2017-06-21] MEDS: SIMVASTATIN 20 MG TAB PO SCH (21:50)
[2017-06-21 22:00] VITALS: BP 126/67
[2017-06-22] MEDS: **hydrALAZINE** 50 MG TAB PO SCH ×2 (00:45→06:45)
[2017-06-22] MEDS: PERCOCET 5MG/325MG TAB PO PRN ×2 (00:45→10:38)
[2017-06-22 06:00] VITALS: BP 162/72
[2017-06-22] MEDS: DULoxetine 30 MG CAP (CYMBALTA) PO SCH (06:45)
[2017-06-22] MEDS: rOPINIRole 1MG TAB PO SCH (06:45)
[2017-06-22] MEDS: LACTOBACILLUS ACIDOPHILUS CAP (BACID) PO SCH (06:45)
[2017-06-22] MEDS: CLOPIDOGREL 75 MG TAB PO SCH (06:46)
[2017-06-22] MEDS: TORSEMIDE 100 MG TAB PO SCH (06:46)
[2017-06-22] MEDS: PANTOPRAZOLE 40MG TAB (PROTONIX) PO SCH (06:46)
[2017-06-22] MEDS: LEVOTHYROXINE 100MCG TABLET (0.1MG) PO SCH (06:46)
[2017-06-22] MEDS: DOXYCYCLINE HYCLATE 100 MG TAB PO SCH (06:46)
[2017-06-22] MEDS: SENOKOT S TAB PO SCH (06:46)
[2017-06-22] MEDS: GABAPENTIN 100 MG CAP PO SCH (06:46)
[2017-06-22 07:03] LABS: MEAN CORPUSCULAR HEMOGLOBIN 31.5 pg (27.0-33.0); MEAN CORPUSCULAR HGB CONC 31.6 g/dl (32.0-36.5); MEAN CORPUSCULAR VOLUME 99.6 fl (80.0-96.0); RED CELL DISTRIBUTION WIDTH 15.8 % (11.5-14.5); WHITE BLOOD COUNT 6.8 K/mm3 (4.0-10.0)
[2017-06-22 07:30] LABS: ALBUMIN 2.5 GM/DL (3.2-5.2); CALCIUM LEVEL 7.7 MG/DL (8.8-10.2); CREATININE FOR GFR 4.88 MG/DL (0.55-1.02); GLOMERULAR FILTRATION RATE 9.4 (>45); MAGNESIUM LEVEL 2.3 MG/DL (1.8-2.4); PHOSPHORUS LEVEL 5.8 MG/DL (2.5-4.9); POTASSIUM SERUM 3.9 MEQ/L (3.5-5.1)
[2017-06-22] MEDS: HumaLOG INSULIN (NovoLOG) PER UNIT SC SCH (07:30)
[2017-06-22] MEDS ORDERED: AMLO5TAB2 PO (08:04)
[2017-06-22] MEDS ORDERED: HYDR-3911 PO (08:04)
[2017-06-22] MEDS ORDERED: DOXY100T2 PO (08:04)
[2017-06-22] MEDS: amLODIPine 5 MG TAB PO SCH (08:57)
[2017-06-22 08:58] VITALS: BP 118/56
[2017-06-22] MEDS: METOPROLOL SUCC (TopROL XL) 50MG **XL** TAB PO SCH (08:58)
[2017-06-22] MEDS: HEPARIN SOD (PORCINE) 5000 UNITS/ML VIAL SC SCH (08:58)
[2017-06-22] MEDS: LEVEMIR (INSULIN DETEMIR) 1 UNITS/0.01ML SC SCH (08:59)
[2017-06-22] MEDS ORDERED: OXYC1TAB23 PO (11:24)
--- NOTE | 2017-06-23 17:26 | DSES ---
DATE OF ADMISSION: 06/18/2017 DATE OF DISCHARGE: 06/22/2017 CONSULTANTS: Dr. Gutierres, podiatry. Dr. Moore, nephrology. DISCHARGE DIAGNOSIS: Osteomyelitis. SECONDARY DIAGNOSES: 1. End stage renal disease on hemodialysis. 2. Diarrhea. 3. Diastolic congestive heart failure (CHF). 4. Coronary artery disease. 5. Hypertension. 6. Hypothyroidism. 7. Gastroesophageal reflux disease (GERD). 8. Restless leg syndrome. 9. Depression. 10. Type 2 diabetes. HOSPITALIZATION COURSE: The patient is a 66-year-old female who presented on the with a left foot ulcer wound with cellulitis that has been present since March. She normally follows with Dr. Gutierres in the outpatient setting. She then had debridement and been on clindamycin but it seemed to be spreading and worsening and as such she was admitted to the medical service. She did have a MRI completed, which revealed findings compatible with osteomyelitis involving the second, middle and distal phalanges. She was taken to the operating room on 01/20/2017 where she had amputation of the infected area. She tolerated the procedure well. She had empirically been on broad-spectrum antibiotics; however, her toe culture did return as Staphylococcus caprae. Postoperatively, she did have some diarrhea, likely antibiotic related. Clostridium (C) difficile was negative. She did improve with Bacid and narrowing of her antibiotic spectrum. This morning, the patient reports that she is feeling well and has no complaints and would like to go home. The pain is manageable. OBJECTIVE: VITAL SIGNS: Temperature 98, pulse 67, respiratory rate 19, blood pressure 118/56, oxygen saturation 99% on room air. GENERAL: She is a very pleasant, elderly, female sitting up on the edge of her bed. She does not appear to be in any acute distress. HEENT: Cranial nerves II through XII are grossly intact. She has moist mucous membranes. No elevation in central venous pressure. CARDIOVASCULAR EXAM: S1, S2 regular. RESPIRATORY EXAM: Clear. ABDOMINAL EXAM: Obese. EXTREMITIES: Left lower extremity has POLLO wrap. The dressing is clean, dry and intact. There is no clubbing, cyanosis, or edema. LABORATORY STUDIES: WBC 6.8, hemoglobin 9.7, platelet count 140. Chemistry panel: Sodium 131, potassium 3.9, chloride 94, bicarbonate 31, BUN 54, creatinine 4.8. Microbiology: As outlined above, her blood cultures were negative. IMAGING: The patient did have a vascular ultrasound that did not reveal any evidence of deep vein thrombosis (DVT) in the left lower extremity. ASSESSMENT AND PLAN: This is a 66-year-old female with osteomyelitis of the left lower extremity. 1. Osteomyelitis of the left lower extremity, status post amputation. The patient is doing well. Given her microbiology positive for Staphylococcus caprae, Dr. Gutierres has suggested treatment course of 14 days for Staphylococcus cellulitis infection at this point now that her osteomyelitis has been surgically removed. She will be discharged home with doxycycline 100 mg by mouth twice a day for a 2-week course. She is to followup with Dr. Gutierres for dressing changes. She is afebrile and no leukocytosis. She is doing well. Physical therapy (PT) has cleared her. 2. End stage renal disease on hemodialysis. Nephrology's help is greatly appreciated. She was managed inpatient on her regular dialysis schedule. She will have outpatient hemodialysis today. I have spoken with Dr. Moore and he is aware of this. 3. Diarrhea related to antibiotics. It did resolve with narrowing of her antibiotic spectrum. Her C difficile was negative. 4. Diastolic congestive heart failure (CHF). Euvolemic and well compensated. She takes torsemide at home and her blood pressure is well controlled. 5. Coronary artery disease. She is on Plavix, statin and a beta jeffrey. 6. Hypertension. She is on beta jeffrey, hydralazine and torsemide. 7. Hypothyroidism. She is on Synthroid. 8. Gastroesophageal reflux disease (GERD). She is on proton pump inhibitor. 9. Restless leg syndrome. She is on Requip and gabapentin. 10. Depression. She is on trazodone and Cymbalta. 11. Type 2 diabetes. She is on sliding scale insulin, as well as her regular home coverage. 12. Deep vein thrombosis (DVT) prophylaxis. She is on heparin. DISPOSITION: The patient is being discharged home to the care of her . She is at her functional baseline and has been cleared by physical therapy (PT). She will followup with her primary care provider in [address] Gutierres within 2 weeks. Followup with outpatient hemodialysis this afternoon. Her activity is as tolerated. Diet is as prior to admission. Wound care is per Dr. Gutierres. She is to return to the emergency room if her symptoms worsen. DISCHARGE MEDICATIONS: Medications at the time of discharge: - Norvasc 5 mg daily - doxycycline 100 mg by mouth twice a day for 14 days - hydralazine 50 mg twice a day - Percocet one tablet every 8 hours as needed for pain, #9 tablets with a maximum dose of three tablets per day - Plavix 75 mg daily - Cymbalta 30 mg daily - Zetia 10 mg at night - gabapentin 300 mg at bedtime - Lispro sliding scale - Synthroid 100 mcg daily - metoprolol XL 50 mg twice a day - nitroglycerin 0.4 mg sublingually every 5 minutes times three doses as needed for chest pain - Zofran 4 mg every 6 hours as needed for nausea - Protonix 40 mg daily - Ropinirole 6 mg twice a day - simvastatin 20 mg at night - torsemide 100 mg twice a day - Toujeo SoloStar 85 units twice a day - tramadol 100 mg by mouth twice a day as needed for pain - trazodone 100 mg at night Greater than 30 minutes was spent organizing disposition.
== END 2017-06-22 11:25 | disposition home or self-care (01) | DRG 503 ==
LOC: M ED 01:11 → M ED INP 05:43 → M MS5PR 07:42
PROVIDERS: ADMIT Hospitalist; ATTEND Internal Medicine
PROC: 0Y6S0Z2 Detachment at Left 2nd Toe, Mid, Open Approach (ICD-10-PCS; principal; 2017-06-19 08:00)
DX: M86.172 Other acute osteomyelitis, left ankle and foot (principal); N18.6 End stage renal disease; L03.116 Cellulitis of left lower limb; I50.32 Chronic diastolic (congestive) heart failure; K52.1 Toxic gastroenteritis and colitis; E11.69 Type 2 diabetes mellitus with other specified complication; E11.621 Type 2 diabetes mellitus with foot ulcer; E11.319 Type 2 diabetes mellitus with unspecified diabetic retinopathy without macular edema; E11.40 Type 2 diabetes mellitus with diabetic neuropathy, unspecified; E78.5 Hyperlipidemia, unspecified; I25.10 Atherosclerotic heart disease of native coronary artery without angina pectoris; I13.2 Hypertensive heart and chronic kidney disease with heart failure and with stage 5 chronic kidney disease, or end stage renal disease; E03.9 Hypothyroidism, unspecified; K21.9 Gastro-esophageal reflux disease without esophagitis; F32.9 Major depressive disorder, single episode, unspecified; G25.81 Restless legs syndrome; B95.7 Other staphylococcus as the cause of diseases classified elsewhere; Z79.02 Long term (current) use of antithrombotics/antiplatelets; Z95.9 Presence of cardiac and vascular implant and graft, unspecified; Z88.8 Allergy status to other drugs, medicaments and biological substances; Z99.2 Dependence on renal dialysis; G47.33 Obstructive sleep apnea (adult) (pediatric); Z91.19 Patient's noncompliance with other medical treatment and regimen; Z90.710 Acquired absence of both cervix and uterus; Z79.4 Long term (current) use of insulin; Z79.899 Other long term (current) drug therapy; I16.0 Hypertensive urgency; D63.1 Anemia in chronic kidney disease

== ENCOUNTER 2017-08-04 13:13 | Inpatient (IN) | payer MEDICARE ==
[~2017-08-04] VITALS: Ht 157.5 cm; Wt 90.3 kg
[~2017-08-04 13:13] MED LIST changes: +CLIN150C14 PO; +DOXY100T2 PO; +HYDR-3911 PO; +OXYC1TAB23 PO
[2017-08-04 14:27] LABS: CALCIUM LEVEL 6.7 MG/DL (8.8-10.2); CREATININE FOR GFR 5.05 MG/DL (0.55-1.02); GLOMERULAR FILTRATION RATE 9.1 (>45)
[2017-08-04 15:07] LABS: BASO % 0.4 % (0.0-1.0); EOS # 0.1 K/mm3 (0.0-0.50); LARGE UNSTAINED CELL # 0.1 K/mm3 (0.0-0.4); LARGE UNSTAINED CELL % 0.8 % (0.0-4.0); LYMPH # 0.9 K/mm3 (1.5-4.5); LYMPH % 12.3 % (24.0-44.0); MEAN CORPUSCULAR HEMOGLOBIN 30.3 pg (27.0-33.0); MEAN CORPUSCULAR VOLUME 101.2 fl (80.0-96.0); MONO # 0.3 K/mm3 (0.0-0.8); MONO % 4.5 % (0.0-5.0); NEUTROPHILS # 5.4 K/mm3 (1.8-7.7); RED CELL DISTRIBUTION WIDTH 16.9 % (11.5-14.5); WHITE BLOOD COUNT 6.8 K/mm3 (4.0-10.0)
--- NOTE | 2017-08-04 15:07 | REP ---
Clinical: Shortness of breath. Technique: PA and lateral. Comparison: 06/05/2017. Findings: Mediastinum and cardiac silhouette are normal. The lung multani demonstrate diffuse subtle patchy alveolar infiltrates and suspected hilar adenopathy as well as small right pleural effusion. Impression: Subtle bilateral alveolar infiltrates with adenopathy and small effusion suggesting multifocal pneumonia and bronchitis. Signed by Israel Guevara MD 08/04/2017 02:59 P
[2017-08-04 15:14] LABS: PLATELET COUNT, AUTOMATED 92 k/mm3 (150-450)
[2017-08-04] MEDS ORDERED: LevoFLOXacin IV 500 MG in APPROPRIATE DILUENT 1 EA IV ONE (16:00)
[2017-08-04] MEDS ORDERED: REQU2TAB3 PO (16:30)
[2017-08-04] MEDS ORDERED: ACETAMINOPHEN TAB 650MG DOSE (2X325MG) PO PRN (16:30)
[2017-08-04] MEDS ORDERED: VITA200015 PO (16:30)
[2017-08-04] MEDS ORDERED: TUMS500C PO (16:30)
[2017-08-04] MEDS ORDERED: HYDR-3911 PO (16:30)
[2017-08-04] MEDS ORDERED: ONDANSETRON 4MG/2ML VIAL (J2405) IV PRN (16:30)
[2017-08-04] MEDS ORDERED: traMADol 50 MG TAB PO PRN (17:00)
[2017-08-04] MEDS ORDERED: NITROGLYCERIN 0.4 MG SUBL TABLET SL PRN (17:00)
[2017-08-04] MEDS ORDERED: GLUCAGON FOR INJ 1 MG VIAL (J1610) SC PRN (17:00)
[2017-08-04] MEDS ORDERED: GLUCOSE 4 GM CHEW TABLET PO PRN (17:00)
[2017-08-04] MEDS ORDERED: DEXTROSE 50% 50 ML SYRINGE IV PRN (17:00)
[2017-08-04] MEDS ORDERED: ONDANSETRON 4 MG TAB (S0181) PO PRN (17:00)
[2017-08-04] MEDS: CALCIUM CARBONATE 500 MG CHEW U/D PO SCH (17:30)
[2017-08-04] MEDS: HumaLOG INSULIN (NovoLOG) PER UNIT SC SCH ×2 (17:30→21:00)
--- NOTE | 2017-08-04 18:32 | ECGEPIP ---
Stationary ECG Study [facility] - ED Test Date: 2017-08-04 Pat Name: GUI JEAN Department: Room: [place] [address] Gender: F [employer]: radha : [id number] Requested By: MARQUIS QURESHI Order Number: [id number] Reading MD: Teddy Fay Measurements Intervals [place] Rate: 71 P: 28 VA: 158 QRS: -28 QRSD: 85 T: 73 QT: 447 QTc: 489 Interpretive Statements SINUS RHYTHM MODERATE VOLTAGE CRITERIA FOR LVH, CONSIDER NORMAL VARIANT POSSIBLE SEPTAL MYOCARDIAL INFARCTION, OF INDETERMINATE AGE MODERATE T-WAVE ABNORMALITY, CONSIDER LATERAL ISCHEMIA SIMILAR TO 06/06/17 Electronically Signed On 08-04-2017 18:31:37 EDT by Teddy Fay
--- NOTE | 2017-08-04 18:41 | HPEPDOC ---
General Date of Admission Aug 04, 2017 at 16:19 Attending Physician: CHARLEY PAEZ MD Chief Complaint The patient is a 66-year-old female admitted with a reason for visit of Diastolic Chf. History of Present Illness 66-year-old female with PMH of ESRD/HD (M/W/F), CAD, CHF, HTN, DM2, hypothyroidism, hyperlipidemia, anemia of chronic disease, chronic diastolic HFpEF (70%-11/10) and GERD presented to the ER with a chief complaint of shortness of breath, and fluid overload. The patient gets regularly scheduled dialysis every Tuesday, Tuesday, and Tuesday. However, the patient was unable to get dialyzed on her scheduled day yesterday as her hemodialysis fistula was unable to be accessed. The patient states that she has been feeling increasingly short of breath due to the excessive amount of fluid in her lungs, abdomen, and lower extremity. In addition, the patient does state that she has been having a nonproductive cough. She denies any complaints of fevers, chills, chest pain, palpitations, abdominal pain, or any nausea/vomiting/diarrhea. In the ER, the patient was noted to be significantly fluid overloaded. The hospitalist service has been called for admission. Nephrology has also been consulted for dialysis today. Home Medications Scheduled ([facility]) 300 Unit/Ml Inj, 85 UNITS SC BID, (Reported) Calcium Carbonate (Tums) 500 Mg Chw, 500 MG PO AC, (Reported) Cholecalciferol (Vitamin D) 2,000 Unit Tab, 2,000 UNIT PO DAILY, (Reported) Clopidogrel Bisulfate (Plavix) 75 Mg Tab, 75 MG PO DAILY, (Reported) Duloxetine Hcl (Cymbalta) 30 Mg Cap, 30 MG PO DAILY, (Reported) Ezetimibe (Zetia) 10 Mg Tab, 10 MG PO QHS, (Reported) Gabapentin (Gabapentin) 100 Mg Cap, 200 MG PO TID, (Reported) Hydralazine HCl (Hydralazine HCl) 50 Mg Tab, 50 MG PO BID, (Reported) Insulin Human Lispro (Humalog) 1 Units/0.01 Ml Inj, 0 SC ACHS, (Reported) PER SLIDING SCALE Levothyroxine Sodium (Synthroid) 100 Mcg Tab, 100 MCG PO DAILY, (Reported) Metoprolol Succinate (Toprol Xl) 50 Mg Tab, 50 MG PO BID, (Reported) Pantoprazole Sodium (Pantoprazole Sodium) 40 Mg Tab, 40 MG PO DAILY, (Reported) Ropinirole Hydrochloride (Requip) 2 Mg Tab, 4 MG PO TID, (Reported) Simvastatin (Simvastatin) 20 Mg Tab, 20 MG PO QHS, (Reported) Torsemide (Torsemide) 100 Mg Tab, 100 MG PO BID, (Reported) Trazodone HCl (Trazodone HCl) 100 Mg Tab, 100 MG PO QHS, (Reported) Scheduled PRN Nitroglycerin (Nitroglycerin) 0.4 Mg Sub, 0.4 MG SL NITRO PRN for CHEST PAIN, ( Reported) Ondansetron HCl (Ondansetron HCl) 4 Mg Tab, 4 MG PO Q6H PRN for NAUSEA, ( Reported) Tramadol HCl (Tramadol HCl) 50 Mg Tab, 100 MG PO BID PRN for PAIN, (Reported) Allergies Coded Allergies: Pregabalin (Verified Adverse Reaction, Intermediate, CONFUSION, 03/16/17) Vancomycin (Verified Adverse Reaction, Mild, 06/20/17) pt iv ? infitrate, co of puritis and benadryl ordered for localized topical itching and redness, cool compress no other adverse reactions noted Past Medical History Medical History As noted above. Surgical History Cardiac Stents. AV fistulas. Appendectomy. Hysterectomy. Bilateral cataract surgery. Family History Significant Family History: No pertinent family hx Social History * Smoker: Denies Alcohol: Denies Drugs: denies Review of Symptoms Other systems 10 point review of systems negative unless otherwise specified in the HPI. Physical Examination General Exam: Positive: Alert, Cooperative, Mild Distress (2/2 fluid overload) ENT Exam: Positive: Atraumatic, Mucous membr. moist/pink Neck Exam: Positive: JVD Chest Exam: Positive: Rales (bibasilar crackles noted on examination), Diminished Heart Exam: Positive: Rate Normal, Normal S1, Normal S2 Abdomen Exam: Positive: Soft, Negative: Tenderness Extremity Exam: Positive: Swelling (3+ pitting edema noted in the lower extremity bilaterally) Psych Exam: Positive: Oriented x 3 Vital Signs Vital Signs Date Time Temp Pulse Resp B/P (MAP) Pulse Ox O2 Delivery O2 Flow Rate FiO2 08/04/17 16:57 97.8 69 19 187/80 (115) 96 Nasal Cannula Laboratory Data Labs 24H Laboratory Tests 2 08/04/17 13:40: White Blood Count 6.8, Red Blood Count 2.67L, Hemoglobin 8.1L, Hematocrit 27.1L , Mean Corpuscular Volume 101.2H, Mean Corpuscular Hemoglobin 30.3, Mean Corpuscular Hemoglobin Concent 30.0L, Red Cell Distribution Width 16.9H, Platelet Count 92L, Neutrophils (%) (Auto) 80.0H, Lymphocytes (%) (Auto) 12.3L, Monocytes (%) (Auto) 4.5, Eosinophils (%) (Auto) 2.0, Basophils (%) (Auto) 0.4, Neutrophils # (Auto) 5.4, Lymphocytes # (Auto) 0.9L, Monocytes # (Auto) 0.3, Eosinophils # (Auto) 0.1, Basophils # (Auto) 0.0, Large Unclassified Cells % 0.8 , Large Unclassified Cells # 0.1, Anion Gap 12, Glomerular Filtration Rate 9.1L , Blood Urea Nitrogen 63H, Creatinine 5.05H, Sodium Level 137, Potassium Level 5.0, Chloride Level 99, Carbon Dioxide Level 26, Calcium Level 6.7L, Total Creatine Kinase 278H, Creatine Kinase MB 7.3H, Creatine Kinase MB Relative Index 2.62, Troponin I 0.02, B-Type Natriuretic Peptide 540H CBC/BMP Laboratory Tests 08/04/17 13:40 Red Blood Count 2.67 L, Mean Corpuscular Volume 101.2 H, Mean Corpuscular Hemoglobin 30.3, Mean Corpuscular Hemoglobin Concent 30.0 L, Red Cell Distribution Width 16.9 H, Neutrophils (%) (Auto) 80.0 H, Lymphocytes (%) (Auto ) 12.3 L, Monocytes (%) (Auto) 4.5, Eosinophils (%) (Auto) 2.0, Basophils (%) ( Auto) 0.4, Neutrophils # (Auto) 5.4, Lymphocytes # (Auto) 0.9 L, Monocytes # ( Auto) 0.3, Eosinophils # (Auto) 0.1, Basophils # (Auto) 0.0, Calcium Level 6.7 L , Total Creatine Kinase 278 H Microbiology Microbiology 08/04/17 Blood Culture, Received Pending 08/04/17 Blood Culture, Received Pending Plan / VTE VTE Prophylaxis Ordered?: Yes Plan Plan SOB, Fluid Overload 2/2 Missed Dialysis Session Nephrology consulted in the ER--the patient will have a scheduled dialysis session this evening Pneumonia CXR suggestive of possible multifocal PNA Patient is afebrile with a normal WBC here, and I do suspect that her SOB is more attributable to her anasarca However, we will start the patient on Levaquin for now If the patient's respiratory status does not improve following dialysis, or she develops a fever, elevated WBC--can consider broadening abx coverage HTN Continue beta jeffrey, torsemide, Hydralazine Dyslipidemia Continue statin CAD s/p CABG and PCI with stents Continue plavix, BB, statin Chronic diastolic HFpEF Fluid balance managed by dialysis IDDM ISS Hypothyroidism Continue synthroid RLS Continue ropinirole DVT prophylaxis SCDs/TEDs (Platelet count <100K) The patient will be followed by Dr. Paez, who will begin to follow the patient on 08/05/17 at 7 AM. JENISE JAIME MD Aug 04, 2017 18:41
[2017-08-04 20:40] VITALS: BP 165/79
[2017-08-04] MEDS: SIMVASTATIN 20 MG TAB PO SCH (20:59)
[2017-08-04] MEDS: EZETIMIBE 10 MG TAB (ZETIA) PO SCH (21:00)
[2017-08-04] MEDS: METOPROLOL SUCC (TopROL XL) 50MG **XL** TAB PO SCH (21:00)
[2017-08-04] MEDS: rOPINIRole 1MG TAB PO SCH (21:00)
[2017-08-04] MEDS: traZODone 100 MG TAB PO SCH (21:00)
[2017-08-04] MEDS: GABAPENTIN 100 MG CAP PO SCH (21:00)
[2017-08-04] MEDS: TORSEMIDE 100 MG TAB PO SCH (22:03)
[2017-08-04] MEDS: **hydrALAZINE** 50 MG TAB PO SCH (22:03)
[2017-08-05 06:00] VITALS: BP 149/70
[2017-08-05] MEDS: METOPROLOL SUCC (TopROL XL) 50MG **XL** TAB PO SCH ×2 (06:38→20:42)
[2017-08-05] MEDS: LEVOTHYROXINE 100MCG TABLET (0.1MG) PO SCH (06:38)
[2017-08-05 06:39] LABS: BASO % 0.4 % (0.0-1.0); EOS # 0.2 K/mm3 (0.0-0.50); EOS % 3.9 % (0.0-3.0); LARGE UNSTAINED CELL # 0.1 K/mm3 (0.0-0.4); LARGE UNSTAINED CELL % 1.9 % (0.0-4.0); LYMPH # 0.6 K/mm3 (1.5-4.5); LYMPH % 16.5 % (24.0-44.0); MEAN CORPUSCULAR HEMOGLOBIN 30.9 pg (27.0-33.0); MEAN CORPUSCULAR HGB CONC 31.1 g/dl (32.0-36.5); MEAN CORPUSCULAR VOLUME 99.5 fl (80.0-96.0); MONO # 0.3 K/mm3 (0.0-0.8); MONO % 6.5 % (0.0-5.0); NEUTROPHILS # 2.7 K/mm3 (1.8-7.7); NEUTROPHILS % 70.9 % (36.0-66.0); RED CELL DISTRIBUTION WIDTH 16.6 % (11.5-14.5); WHITE BLOOD COUNT 3.8 K/mm3 (4.0-10.0)
[2017-08-05] MEDS: **hydrALAZINE** 50 MG TAB PO SCH ×2 (06:39→20:43)
[2017-08-05] MEDS: CALCIUM CARBONATE 500 MG CHEW U/D PO SCH ×3 (06:39→17:48)
[2017-08-05] MEDS: rOPINIRole 1MG TAB PO SCH ×3 (06:39→20:41)
[2017-08-05 06:40] LABS: PLATELET COUNT, AUTOMATED 89 k/mm3 (150-450)
[2017-08-05] MEDS: TORSEMIDE 100 MG TAB PO SCH ×2 (06:40→20:41)
[2017-08-05] MEDS: GABAPENTIN 100 MG CAP PO SCH ×3 (06:40→20:42)
[2017-08-05 07:00] LABS: ALBUMIN 2.5 GM/DL (3.2-5.2); ALBUMIN/GLOBULIN RATIO 0.69 (1.00-1.93); BILIRUBIN,TOTAL 0.4 MG/DL (0.2-1.0); CALCIUM LEVEL 7.1 MG/DL (8.8-10.2); CREATININE FOR GFR 3.78 MG/DL (0.55-1.02); GLOMERULAR FILTRATION RATE 12.7 (>45); MAGNESIUM LEVEL 2.2 MG/DL (1.8-2.4); POTASSIUM SERUM 4.5 MEQ/L (3.5-5.1); TOTAL PROTEIN 6.1 GM/DL (6.4-8.2)
[2017-08-05] MEDS: VITAMIN D 1,000 INTERNATIONAL UNITS TABLET PO SCH (08:04)
[2017-08-05] MEDS: HumaLOG INSULIN (NovoLOG) PER UNIT SC SCH ×4 (08:04→20:41)
[2017-08-05] MEDS: PANTOPRAZOLE 40MG TAB (PROTONIX) PO SCH (08:05)
[2017-08-05] MEDS: DULoxetine 30 MG CAP (CYMBALTA) PO SCH (08:05)
[2017-08-05] MEDS: CLOPIDOGREL 75 MG TAB PO SCH (08:05)
--- NOTE | 2017-08-05 11:11 | REP ---
Clinical: Shortness of breath . Comparison: 08/04/2017 . Findings: The mediastinum and cardiac silhouette are stable and within normal limits for portable technique. The lung multani are clear without acute consolidation, effusion, or pneumothorax. Skeletal structures are intact. Impression: No acute cardiopulmonary process appreciated. Signed by Israel Guevara MD 08/05/2017 07:22 A
[2017-08-05] MEDS ORDERED: HEPARIN 1,000 UNITS/ML 10ML VIAL (FOR RADIOLOGY& DIALYSIS ONLY) IV ONE (11:15)
[2017-08-05] MEDS ORDERED: LIDOCAINE 1% SDV 5 ML VIAL SQ ONE (11:15)
[2017-08-05] MEDS ORDERED: DARBEPOETIN 100 MCG/0.5 ML *DIALYSIS* SYRINGE (J0882) IV SCH (13:00)
--- NOTE | 2017-08-05 13:46 | CR ---
DATE OF CONSULTATION: 08/04/2017 REQUESTING PHYSICIAN: Dr. Randell Rivera. REASON FOR CONSULT: Management of end stage renal disease on hemodialysis, diastolic heart failure with volume overload. HISTORY OF PRESENT ILLNESS: Patient is a 66-year-old female with past medical history of end stage renal disease on hemodialysis via a left upper extremity fistula Tuesday, Tuesday, Tuesday maintenance schedule, history of coronary artery disease, chronic diastolic heart failure with preserved ejection fraction , hypertension, type 2 diabetes, hypothyroidism, dyslipidemia, anemia of renal disease. The patient was seen today by her block layer and primary care doctor. She was sent to the emergency room by her primary care doctor for concern of volume overload. The patient states that her last dialysis treatment was on Tuesday. She left dialysis significantly above her dry weight. She states that at least for the past month, she has been significantly above her dry weight. She is unable to tolerate more than three kg ultra filtration on hemodialysis due to hypotension. On Tuesday, she went to hemodialysis, however, she was not dialyzed as her fistula infiltrated. She states that she has had some issue with the fistula infiltrating on and off over the past year. She has not followed up with vascular surgery as of yet. The patient complains of chronic and progressive lower extremity edema and increasing abdominal distention and shortness of breath. She notes a dry cough. She denies any fevers or chills at home. She does have residual renal function and takes torsemide 100 mg twice daily on non-dialysis days. She does not fluid restrict unfortunately. The patient is seen today on hemodialysis. PAST MEDICAL HISTORY: End stage renal disease on hemodialysis via left upper extremity AV fistula Tuesday, Tuesday, Tuesday maintenance schedule. Coronary artery disease status post multiple stents. Diastolic heart failure. Hypertension. Type 2 diabetes. Hypothyroidism. Dyslipidemia, Anemia of renal disease. Volume overload. Noncompliance with fluid restriction. PAST SURGICAL HISTORY: Cardiac stents. Left AV fistula. Appendectomy. Hysterectomy. Cataract surgery. 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 ALLERGIES: PREGABALIN, VANCOMYCIN. SOCIAL HISTORY: Denies smoking, alcohol and drugs. FAMILY HISTORY: Noncontributory. REVIEW OF SYSTEMS: Ten point review of systems negative unless otherwise specified in history of present illness. VITALS: Afebrile. Pulse 74, blood pressure 175/74, saturation 92% on room air. Intake and output: Hemodialysis today removed 3 kg ultra filtration (UF). PHYSICAL EXAMINATION: General: Awake, alert, oriented times four seen on hemodialysis in no acute distress. Head and neck: Atraumatic, moist mucous membranes. Extraocular muscles intact. Neck: Prominent neck veins. Chest: Anterior auscultation reveals symmetric air entry at bases. Cardiovascular: S1, S2, regular rate. 2+ radial pulse. 3+ pitting edema present all the way up to the hip. Extremities: Left upper extremity fistula. Abdomen: Soft, obese, nontender. Neurologic: Appropriately interactive, oriented times three, no focal deficit. Psychiatric: Appropriate mood and affect. LABS: White count 7.8, hemoglobin 8.1, platelets 92. Sodium 137, potassium 5.0 , bicarbonate 26. BNP 540. Glucose 142. Microbiology: Blood cultures pending. IMAGING: Chest x-ray with subtle bilateral alveolar infiltrates and adenopathy and small effusions suggesting multifocal pneumonia and bronchitis. INPATIENT MEDICATIONS: - Levaquin IV 250 mg every 48 after one time dose of 500 mg IV times one - calcium carbonate 500 mg with meals - Plavix 75 mg by mouth daily - Cymbalta 30 mg by mouth daily - Zetia 10 mg by mouth daily at bedtime - gabapentin 200 mg by mouth three times daily - hydralazine 50 mg by mouth twice daily - insulin - levothyroxine 100 mcg by mouth daily - metoprolol 50 mg by mouth twice daily - Protonix 40 mg by mouth daily - Requip 4 mg by mouth three times daily - simvastatin 20 mg by mouth daily at bedtime - torsemide 100 mg by mouth twice daily - tramadol 100 mg by mouth twice daily - trazodone 100 mg by mouth daily at bedtime - vitamin D 2000 units by mouth daily ASSESSMENT AND PLAN: 1. End stage renal disease on hemodialysis. Patient is reportedly not compliant with fluid restriction. She has large interdialytic weight gain. She has consistently been above her dry weight for the past month. She has been leaving hemodialysis above her dry weight as well. She does not tolerate greater than 3 kg ultra filtration with hemodialysis due to subsequent hypotension. She is clinically quite volume overloaded at this time. She was dialyzed today and 3 kg of fluid was ultra filtrated. We will dialyze her again tomorrow for more volume removal. She continues on torsemide on nondialysis days. She was counseled regarding fluid restriction. She missed her hemodialysis on Tuesday because her fistula infiltrated. She reports other similar episodes of fistula infiltration and with dialysis over the past few months. Patient will need to followup with Dr. Estrella as an outpatient to address these issues with her fistula so that we can minimize the number of missed sessions in this already volume overloaded patient. 2. Chest x-ray suggestive of pneumonia. More likely this is volume overload, however, the patient has been started on renally dosed Levaquin per the primary team and blood cultures were drawn and pending. Will follow the results. 3. Chronic diastolic heart failure with exacerbation and volume overload. Fluid restriction advised as noted above. Continue her oral diuretics. She will require additional hemodialysis treatments for serial ultra filtration to address her hypervolemia. 4. Anemia of end stage renal disease. Patient's hemoglobin is below target. Will start her on Aranesp. She will receive a dose when her blood pressure is well controlled. 5. Hypertension. Blood pressure is uncontrolled at this time. It should improve with serial hemodialysis and aggressive ultra filtration. Would continue her oral diuretics, torsemide 100 mg by mouth twice daily. She is also on Toprol XL 50 mg by mouth twice daily, hydralazine 50 mg by mouth twice daily. 6. Secondary hyperparathyroidism of renal origin. Patient is on calcium carbonate. We will check a phosphorus level in the morning. She is also on vitamin D. [facility] [place] [facility]
[2017-08-05 14:00] VITALS: BP 160/72
--- NOTE | 2017-08-05 14:07 | IPN ---
DATE: 08/05/2017 SUBJECTIVE: The patient is seen this morning on hemodialysis. She is receiving an extra treatment for ultra filtration as she remains very volume overloaded and above her dry weight. She is comfortable on room air at this time and denies shortness of breath. She is drowsy on hemodialysis. REVIEW OF SYSTEMS: Negative for headache, chest pain, palpitations, nausea, vomiting, diarrhea, dysuria. Positive for volume overload, lower extremity edema, shortness of breath with exertion. Temperature 98.2, pulse 63, respiratory rate 18, blood pressure 149/70, saturating 96% on room air. Intake and output: Hemodialysis yesterday removed 30o0 mL. Hemodialysis today, we will try and remove another 2000 mL. PHYSICAL EXAMINATION: General: Drowsy but easily arousable, in no acute distress. Oriented times three. Seen on hemodialysis, receiving treatment without issue. Head and neck: Atraumatic. Moist mucous membranes. Extraocular muscles intact. Neck: Prominent neck veins. Chest: Bilateral symmetric air entry, comfortable on room air. Cardiovascular: S1, S2, regular rate. 3+ pitting edema in the lower extremity to the hip. Extremities: Left upper extremity with fistula. Lower extremities with pitting edema to the hip. Abdomen: Soft, obese, nontender. Neurologic: Drowsy but easily arousable. No focal deficits. Appropriately interactive and conversational. Psychiatric: Appropriate mood and affect. LABS: White count 3.8, hemoglobin 9.2, platelets 89. Sodium 141, potassium 4.5 , bicarbonate 28, corrected calcium 8.3, magnesium 2.2, glucose 192. Blood culture 08/04 pending. IMAGING: Chest x-ray done today with no acute cardiopulmonary process. Inpatient medications reviewed by myself. Patient remains on: - Levaquin every 48 hours 250 mg IV Remainder of her medications are unchanged from prior. PLAN: 1. End stage renal disease on hemodialysis. Patient is receiving an extra dialysis session today for further ultra filtration. She remains with marked volume overload but is respiring comfortably on room air without overt edema on chest x-ray. She continues on torsemide for further management of volume control. She is counseled regarding fluid restriction. Her fistula was cannulated easily on dialysis yesterday as well as today without any further episodes of infiltration. She will need to followup with Dr. Estrella as an outpatient for her fistula. 2. Chronic diastolic heart failure with exacerbation and volume overload. Continue with fluid restriction and oral diuretics as per home regimen. She is receiving an additional hemodialysis treatment today for serial ultra filtration. Correcting her volume status would take compliance with fluid restriction on the part of the patient and also aggressive ultra filtration as tolerated by blood pressure during hemodialysis with challenges to her dry weight. 3. Anemia of end stage renal disease. Continue with Aranesp. 4. Hypertension. Blood pressure has improved over night with 3 kg ultra filtration on hemodialysis. She will have another further 2 kg ultra filtration today as tolerated by blood pressure. She also remains on Toprol XL, hydralazine and torsemide 100 mg twice daily. MTDD
--- NOTE | 2017-08-05 14:17 | IPN ---
DATE: 08/05/2017 The patient is seen and examined at the bedside. Chart has been reviewed. This morning, the patient states that her shortness of breath is improved. No chest pain, pressure, tightness, lightheadedness, or dizziness. She is afebrile. Still complains of cough, which is dry. Apparently has been treated for possible pneumonia with Levaquin. The patient only complains of feeling fuzzy in the head this morning. Blood pressure was 149/70. No other complaints. She was dialyzed yesterday with output of 3 liters through dialysis and was net negative 2780. VITAL SIGNS: Currently, 98.2, pulse 63, respiratory rate 18, blood pressure 149/70, 96% on room air. GENERAL: Awake, alert, oriented. Answering questions appropriately. No significant respiratory distress or use of accessory muscles. Able to speak in full sentences. LUNGS: Diminished crackles at the bases. HEART: S1, S2. Sinus rhythm. ABDOMEN: Obese. Soft, nontender, nondistended. Positive bowel sounds. EXTREMITIES: 2+ pitting edema to the sacrum. LABORATORY DATA: White count 3.8, hemoglobin 9.2, hematocrit 29, platelet count of 89. Sodium 141, potassium 4.5, chloride 102, bicarbonate 28, BUN 48, creatinine 3.78, glucose of 192. Troponin 0.03, BNP of 351. Methicillin resistant Staphylococcus aureus (MRSA) screen pending. Blood cultures pending. Chest x-ray on 08/05/2017 shows no acute cardiopulmonary process appreciated. ASSESSMENT AND PLAN: This is a 66-year-old female with a history of end stage renal disease on maintenance hemodialysis on Tuesday, Tuesday and Tuesday, diastolic heart failure, ejection fraction of 70% on 11/10, reflux disease, anemia of chronic disease, hypertension, diabetes, coronary artery disease, hypothyroidism, hyperlipidemia, was unable to be dialyzed on her scheduled day yesterday as her dialysis fistula could not be accessed. The patient has been increasingly short of breath and presented to the emergency room with a nonproductive cough. Denies fever and chills. Chest x-ray showed multiple infiltrates. Nephrology was consulted. The patient received immediate hemodialysis. At this time, the patient was given two doses of Levaquin for presumed pneumonia. Repeat x-ray shows no acute infiltrate, status post dialysis. The patient was scheduled for additional dialysis today and currently has the following issues: 1. Fluid overload secondary to missed hemodialysis, unable to assess her AV fistula yesterday, status post two hemodialysis sessions yesterday and this morning. The patient is under the management of sole layer hand, Dr. Grullon. I will defer other changes to her strict input and output, daily, weights, monitor for worsening respiratory distress. She appears to have improved over the past 24 hours. 2. History of congestive heart failure (CHF), diastolic dysfunction, coronary artery disease, coronary artery bypass graft (CABG), PCI with stents. The patient's respiratory distress is felt to be secondary to fluid overload from missed hemodialysis. With hemodialysis the patient improved significantly. We will continue on Plavix, beta blockade and statin. 3. Hypertension. On beta jeffrey, torsemide, hydralazine. 4. Dyslipidemia. On statin. 5. Insulin-dependent diabetes mellitus. On sliding scale. 6. Hypothyroidism. On Synthroid. 7. Restless leg syndrome. Continue on ropinirole. MTDD
[2017-08-05] MEDS: traZODone 100 MG TAB PO SCH (20:42)
[2017-08-05] MEDS: SIMVASTATIN 20 MG TAB PO SCH (20:42)
[2017-08-05] MEDS: EZETIMIBE 10 MG TAB (ZETIA) PO SCH (20:42)
[2017-08-05 22:00] VITALS: BP 161/78
[2017-08-06] MEDS: LEVOTHYROXINE 100MCG TABLET (0.1MG) PO SCH (05:48)
[2017-08-06 06:00] VITALS: BP 160/79
[2017-08-06 07:01] LABS: ALBUMIN 2.6 GM/DL (3.2-5.2); ALBUMIN/GLOBULIN RATIO 0.76 (1.00-1.93); BILIRUBIN,TOTAL 0.3 MG/DL (0.2-1.0); CREATININE FOR GFR 3.34 MG/DL (0.55-1.02); GLOMERULAR FILTRATION RATE 14.6 (>45); POTASSIUM SERUM 4.5 MEQ/L (3.5-5.1)
[2017-08-06] MEDS: HumaLOG INSULIN (NovoLOG) PER UNIT SC SCH (08:11)
[2017-08-06 08:12] VITALS: BP 160/79
[2017-08-06] MEDS: TORSEMIDE 100 MG TAB PO SCH (08:12)
[2017-08-06] MEDS: **hydrALAZINE** 50 MG TAB PO SCH (08:12)
[2017-08-06] MEDS: CALCIUM CARBONATE 500 MG CHEW U/D PO SCH (08:12)
[2017-08-06] MEDS: METOPROLOL SUCC (TopROL XL) 50MG **XL** TAB PO SCH (08:12)
[2017-08-06] MEDS: VITAMIN D 1,000 INTERNATIONAL UNITS TABLET PO SCH (08:12)
[2017-08-06] MEDS: CLOPIDOGREL 75 MG TAB PO SCH (08:13)
[2017-08-06] MEDS: GABAPENTIN 100 MG CAP PO SCH (08:13)
[2017-08-06] MEDS: PANTOPRAZOLE 40MG TAB (PROTONIX) PO SCH (08:13)
[2017-08-06] MEDS: DULoxetine 30 MG CAP (CYMBALTA) PO SCH (08:13)
[2017-08-06] MEDS: rOPINIRole 1MG TAB PO SCH (08:13)
--- NOTE | 2017-08-06 16:21 | IPN ---
DATE: 08/06/2017 SUBJECTIVE: The patient is seen this morning at the bedside. She complains of feeling fatigued; otherwise, states that her shortness of breath is significantly improved. She has no other complaints this morning. She remains afebrile off antibiotics, and is saturating comfortably on room air. REVIEW OF SYSTEMS: Positive for fatigue. Negative for headache, dizziness, chest pain, palpitations, shortness of breath at rest, nausea, vomiting, diarrhea. Positive for significant lower extremity edema and abdominal fullness. OBJECTIVE: VITAL SIGNS: Temperature 97.2, pulse 62, respiratory rate 18, blood pressure 160/79, saturating 97% on room air. INTAKE AND OUTPUT: Hemodialysis on removed 3 kg, and hemodialysis on Tuesday removed another 2 kg. Weight in the bed scale 90.3 kg. PHYSICAL EXAMINATION: GENERAL: The patient is sitting up in bed doing a coloring book. She is oriented times four, comfortable on room air, in no acute distress. HEENT: Moist mucous membranes. NECK: Supple. CARDIAC: S1, S2. 3+ pitting edema to the hip and the lower extremities. CHEST: Lungs are clear to auscultation with symmetric air entry bilaterally. She is comfortable on room air. EXTREMITIES: Left upper extremity fistula with thrill and bruit. Bilateral lower extremities with significant pitting edema to the hip. NEUROLOGIC: No focal deficit. PSYCHIATRIC: Appropriate mood and affect. LABORATORY DATA: Sodium 139, potassium 4.5, bicarbonate 29. BNP decreased to 350 from 540. MICROBIOLOGY: Blood cultures with no growth for 48 hours. IMAGING: Chest x-ray done yesterday with no acute cardiopulmonary process and clear lung multani. INPATIENT MEDICATIONS: Reviewed by myself. The patient remains off antibiotics. Levaquin was discontinued. The remainder of her medications are unchanged from prior. PLAN: This is a 66-year-old female with past medical history of end-stage renal disease on maintenance hemodialysis Tuesday, Tuesday, Tuesday, who missed a session of hemodialysis due to infiltration of her fistula. Past medical history also significant for diastolic heart failure, coronary artery disease, hypertension, diabetes, hypothyroidism, dyslipidemia. She was sent to the emergency room (ED) by her primary medical doctor (PMD) one day after missing hemodialysis for shortness of breath and volume overload. She received two serial hemodialysis sessions with 5 kg ultrafiltration in total. 1. Volume overload with shortness of breath: The patient has received two serial hemodialysis sessions. From a respiratory point of view, she has improved. She is comfortable on room air, and chest x-ray yesterday showed clear lungs. The patient, however, does remain significantly above her dry weight with prominent peripheral edema. She is counseled regarding fluid restriction. Her estimated dry weight (EDW) needs to be challenged as an outpatient on her maintenance hemodialysis. She continues on oral torsemide for further management of volume control 2. Diastolic heart failure with volume overload: Plan as per above. Continue with fluid restriction and oral diuretics as per home regimen. She received two serial hemodialysis sessions as an inpatient for her shortness of breath. She remains above her dry weight with peripheral edema. Her dry weight will need to be challenged as an outpatient for further ultrafiltration on hemodialysis as tolerated by her blood pressure. 3. Hypertension: Continue with hydralazine 50 mg by mouth twice a day, metoprolol 50 mg by mouth twice a day, torsemide 100 mg by mouth twice a day, and further ultrafiltration as tolerated. Plan of care discussed with Dr. Paez. The patient is stable for discharge from a renal point of view to continue with her maintenance outpatient hemodialysis on a Tuesday, Tuesday, Tuesday basis.
--- NOTE | 2017-08-06 17:25 | DSES ---
DATE OF ADMISSION: 08/05/2017 DATE OF DISCHARGE: 08/06/2017 PRIMARY CARE PROVIDER: Dr. Catracho Pineda COMPRESSED GAS EQUIPMENT MECHANIC: During this admission, Dr. Mic Grullon PRIMARY DISCHARGE DIAGNOSES: 1. Fluid overload due to missed hemodialysis due to AV fistula issues. 2. Congestive heart failure (CHF), diastolic dysfunction exacerbation, ejection fraction of 75%. 3. Hypertension. 4. Dyslipidemia. 5. Insulin-dependent diabetes. 6. Hypothyroidism. 7. Restless leg syndrome. 8. Pancytopenia. DISCHARGE MEDICATIONS: No changes on her home medications were made. May resume: - calcium carbonate 500 mg before meals - vitamin D 2000 units daily - Plavix 75 mg daily - Cymbalta 30 mg daily - Zetia 10 mg at night - gabapentin 200 mg three times a day - hydralazine 50 mg twice a day - Lispro before food and nightly - levothyroxine 100 mcg daily - metoprolol 50 mg twice a day - nitroglycerin as needed 0.4 mg - Zofran 4 mg every 6 hours as needed - Protonix 40 mg daily - Requip 4 mg id - simvastatin 200 mg at night - torsemide 100 mg twice a day - Toujeo 85 mg subcutaneous twice a day - Tramadol 100 mg twice a day - trazodone 100 mg at night HOSPITAL COURSE: This is a 66-year-old female with a history of end stage renal disease on maintenance hemodialysis Tuesday, Tuesday, Tuesday, diastolic heart failure with ejection fraction of 75% on 11/10, reflux disease, anemia of chronic disease, hypertension, diabetes, coronary artery disease, hypothyroidism, hyperlipidemia, who was unable to be dialyzed on her scheduled day on Tuesday as her dialysis fistula could not be accessed. The patient has been increasingly short of breath since being sent back home. Presented to the emergency room with a nonproductive cough without fever or chills. X-ray showed multiple infiltrates and nephrology was consulted for emergent hemodialysis. The patient was initially given Levaquin, which has been discontinued since repeat chest x-ray showed no acute infiltrate after dialysis. The patient received hemodialysis times three sessions during the admission. She passed her home safety evaluation with resolution of her shortness of breath. Cardiac markers were negative with troponin at 0.02 and 0.03. Microbiology was unremarkable. Methicillin resistant Staphylococcus aureus (MRSA) screen was negative. Two sets of blood cultures negative. Repeat chest x-ray a day after admission showed no acute cardiopulmonary process after hemodialysis. The patient is stable for medical discharge to followup as an outpatient with her java core developer and primary care physician. LABORATORY DATA: On discharge: White count 3.8, hemoglobin 9.2, hematocrit 29.7, platelet count 89. Sodium 139, potassium 4.5, chloride 102, bicarbonate 29, BUN 40, creatinine 3.3, glucose 211, total bilirubin 0.3, AST 20, ALT 33, alkaline phosphatase 174, troponin 0.03, BNP is 351, total protein 6. Microbiology: Methicillin resistant Staphylococcus aureus (MRSA) screen negative. Two sets of blood cultures from 08/04/2017 negative. Chest x-ray on 08/04 on admission shows subtle bilateral alveolar infiltrates with adenopathy, small effusions suggesting multifocal pneumonia and bronchitis. Chest x-ray shows no acute cardiopulmonary process one day after hemodialysis on 08/05/2017. Time spent on discharge: 40 minutes.
[2017-08-06] MEDS ORDERED: LevoFLOXacin IV 250 MG in APPROPRIATE DILUENT 1 EA IV SCH (18:00)
== END 2017-08-06 12:10 | disposition home or self-care (01) | DRG 291 ==
LOC: M ED 13:13 → M ED INP 16:19 → EDBEDREQ 17:12 → M MS5PR 20:40 → OBSVTOIN 08-05 12:14
PROVIDERS: ADMIT Internal Medicine; ATTEND General Practice
DX: I13.2 Hypertensive heart and chronic kidney disease with heart failure and with stage 5 chronic kidney disease, or end stage renal disease (principal); I50.33 Acute on chronic diastolic (congestive) heart failure; N18.6 End stage renal disease; K21.9 Gastro-esophageal reflux disease without esophagitis; E78.5 Hyperlipidemia, unspecified; D63.1 Anemia in chronic kidney disease; E11.22 Type 2 diabetes mellitus with diabetic chronic kidney disease; E03.9 Hypothyroidism, unspecified; G25.81 Restless legs syndrome; Z99.2 Dependence on renal dialysis; Z95.828 Presence of other vascular implants and grafts; Z79.02 Long term (current) use of antithrombotics/antiplatelets; Z79.899 Other long term (current) drug therapy; Z79.4 Long term (current) use of insulin; Z88.8 Allergy status to other drugs, medicaments and biological substances; Z90.710 Acquired absence of both cervix and uterus; Z98.41 Cataract extraction status, right eye; Z98.42 Cataract extraction status, left eye; Z91.19 Patient's noncompliance with other medical treatment and regimen

== ENCOUNTER 2017-08-15 14:24 | Inpatient (IN) | payer MEDICARE ==
[~2017-08-15] VITALS: Ht 157.5 cm; Wt 86.5 kg
[~2017-08-15 14:24] MED LIST changes: +REQU2TAB3 PO; +TUMS500C PO; +VITA200015 PO
[2017-08-15 15:15] VITALS: BP 162/71
[2017-08-15 16:09] LABS: BASO % 0.7 % (0.0-1.0); EOS # 0.2 K/mm3 (0.0-0.50); EOS % 2.7 % (0.0-3.0); LARGE UNSTAINED CELL # 0.1 K/mm3 (0.0-0.4); LARGE UNSTAINED CELL % 1.2 % (0.0-4.0); LYMPH # 1.1 K/mm3 (1.5-4.5); LYMPH % 13.9 % (24.0-44.0); MEAN CORPUSCULAR HGB CONC 30.5 g/dl (32.0-36.5); MEAN CORPUSCULAR VOLUME 98.5 fl (80.0-96.0); MONO # 0.3 K/mm3 (0.0-0.8); MONO % 4.8 % (0.0-5.0); NEUTROPHILS # 5.3 K/mm3 (1.8-7.7); NEUTROPHILS % 76.6 % (36.0-66.0); PLATELET COUNT, AUTOMATED 151 k/mm3 (150-450); RED CELL DISTRIBUTION WIDTH 17.3 % (11.5-14.5)
[2017-08-15] MEDS ORDERED: CEPH500C PO (16:10)
--- NOTE | 2017-08-15 16:24 | HPE ---
DATE OF ADMISSION: 08/15/2017 MEDICAL LIAISON: [facility] -- Dr. Grullon PRIMARY CARE PROVIDER: Dr. Catracho Pineda LAMP SHADE ASSEMBLER: Dr. Hubert Gutierres CREDIT ADMINISTRATION OFFICER: Dr. Shane Jose ATTENDING PHYSICIAN: Dr. Enrrique King HISTORY: Dalila Hernandez was directly admitted from Dr. Gutierres's office with an infected left toe, for which he is planning amputation today. She has end stage renal disease and has Tuesday, Tuesday and Tuesday dialysis. She missed her dialysis today. She is short of breath when supine, coughing. Looks to be in heart failure by examination. She was recently admitted on 08/04 to 08/06/2017 for heart failure with a preserved ejection fraction of 70%, for which she was in heart failure from having missed a dialysis session. She was dialyzed. The infiltrates resolved and she was discharged. She has a past history of coronary artery disease. She has had some cardiac stenting done. Has a history of hypertension, type 2 diabetes, hypothyroidism, hyperlipidemia, anemia from chronic renal disease, noncompliance with fluid restriction. SURGERIES: 1. Coronary stents, locations not specified. 2. Left AV fistula. 3. Appendectomy. 4. Hysterectomy. 5. Cardiac surgery with partial amputation of the digit of the left foot. ALLERGIES: LYRICA and VANCOMYCIN. SOCIAL HISTORY: Nonsmoker. No alcohol. FAMILY HISTORY: Noncontributory. REVIEW OF SYSTEMS: No fever, chills, night sweats. She has pain in her left foot, it is chronically numb. She denies any palpitations, syncope. She has been short of breath while supine and coughing. She says "it feels like it does when I am full of fluid." PHYSICAL EXAMINATION: 171/73, pulse 71, respirations 16, 94% oxygen saturation, 99 degrees. GENERAL APPEARANCE: Chronically ill-appearing, pale, resting in bed. Pupils are equal, round and reactive to light. Tympanic membranes and oropharynx benign. Neck with no masses. LUNGS: Decreased breath sounds. Poor air movement at the bases. HEART: Regular rate and rhythm. 1/6 systolic ejection murmur. ABDOMEN: Soft, nontender, no masses. EXTREMITIES: She has 1+ peripheral edema to mid thighs. No palpable pulses in the feet from the edema. Her left third toe is dressed. There is erythema proximally. She moves arms and legs with equal strength. LABORATORY DATA: Pending. IMPRESSION: The patient has an infected toe and is supposed to be having an amputation today. I have ordered stat complete blood count (CBC), basic metabolic panel (BMP), EKG, chest x-ray and PT/PTT. She looks to be in congestive heart failure, probably from her missed dialysis session. I have discussed the case with Dr. Moore, who will see the patient preoperatively to decide whether she can proceed with surgery or whether she needs to be dialyzed first. Chest x-ray is pending. Discussed the case with Dr. Gutierres. He is aware of the pending nephrology evaluation. He feels that the amputation can wait if dialysis is required in order to reduce her risk. 2. Coronary artery disease. EKG ordered. She is on Plavix. The surgeon is aware of this and says we can continue the Plavix 75 mg daily. Continue metoprolol 50 mg twice a day. 3. History of heart failure with preserved ejection fraction of 70%. Her volume is regulated by dialysis. She looks to be in volume overload today. Nephrology consultation is pending prior to surgery. 4. Diabetes. She is on Toujeo and sliding scale at home. We will hold this. She will be on sliding scale of Humalog based upon fingerstick blood sugars postoperatively. 5. History of depression. Continue her Cymbalta 30 mg daily, trazodone 100 mg at night. 6. Hypothyroidism. Continue current dose of levothyroxine 100 mcg daily. 7. Hyperlipidemia. Continue simvastatin 20 mg at bedtime and Zetia 10 mg daily. 8. Hypertension. Continue metoprolol 50 mg twice a day, hydralazine 50 mg twice a day, 9. Restless leg syndrome. She takes Requip, which we will continue. EKG is unchanged from previous EKG from 08/04/2017, left ventricular hypertrophy, previous septal myocardial infarction. Dr. King will assume her medical care in the morning. Warm hand off was given to Dr. King. ADDENDUM: 08/15/[address] Hubert Gutierres. He again was informed by the operating room that surgery would need to be pushed back due to delay of other cases in the operating room. He is therefore planning to do the surgery tomorrow, which will allow Ms. Reff to have her dialysis prior to the procedure. I will discuss this with nephrology upon their arrival.
[2017-08-15] MEDS ORDERED: NITROGLYCERIN 0.4 MG SUBL TABLET SL PRN (16:30)
[2017-08-15] MEDS ORDERED: DEXTROSE 50% 50 ML SYRINGE IV PRN (16:30)
[2017-08-15] MEDS ORDERED: traMADol 50 MG TAB PO PRN (16:30)
[2017-08-15] MEDS ORDERED: GLUCAGON FOR INJ 1 MG VIAL (J1610) SC PRN (16:30)
[2017-08-15] MEDS ORDERED: GLUCOSE 4 GM CHEW TABLET PO PRN (16:30)
[2017-08-15] MEDS ORDERED: ONDANSETRON 4 MG TAB (S0181) PO PRN (16:30)
[2017-08-15] MEDS ORDERED: ACETAMINOPHEN 500 MG TAB PO PRN (16:30)
[2017-08-15 16:45] LABS: CALCIUM LEVEL 6.5 MG/DL (8.8-10.2); CREATININE FOR GFR 5.83 MG/DL (0.55-1.02); GLOMERULAR FILTRATION RATE 7.7 (>45); POTASSIUM SERUM 4.7 MEQ/L (3.5-5.1)
--- NOTE | 2017-08-15 16:48 | REP ---
Chest x-ray: Two views. History: Preop. Comparison chest x-ray August 05, 2017. Findings: Moderate to marked cardiomegaly is again observed, unchanged. The lungs are well inflated and clear. Pleural angles are sharp. Pulmonary vasculature is cephalized. No evidence of pleural effusion or pulmonary edema seen. No focal infiltrate. Impression: Moderate to marked cardiomegaly with pulmonary vascular cephalization. Otherwise, no acute disease. Signed by Vel Martinez MD 08/15/2017 06:54 P
[2017-08-15 16:49] LABS: INR 1.09
[2017-08-15] MEDS ORDERED: ceFAZolin SOD 1 GM in D5W MINI-BAG PLUS 50 ML IV SCH (17:00)
[2017-08-15] MEDS: CALCIUM CARBONATE 500 MG CHEW U/D PO SCH (17:12)
[2017-08-15] MEDS: HumaLOG INSULIN (NovoLOG) PER UNIT SC SCH ×2 (17:13→21:00)
[2017-08-15 17:27] LABS: MAGNESIUM LEVEL 2.1 MG/DL (1.8-2.4); PHOSPHORUS LEVEL 4.1 MG/DL (2.5-4.9)
[2017-08-15] MEDS ORDERED: DARBEPOETIN 100 MCG/0.5 ML *DIALYSIS* SYRINGE (J0882) IV SCH (17:30)
--- NOTE | 2017-08-15 17:45 | CR ---
DATE OF CONSULTATION: 08/15/2017 CONSULTATION REPORT FOR: Dr. Kody Nash CONSULTING PHYSICIAN: Dr. Moore REASON FOR CONSULTATION: Management of end-stage renal disease and hemodialysis. CHIEF COMPLAINT: The patient was sent from podiatry office because of infection in the left third toe and there is a possible plan for amputation. HISTORY OF PRESENT ILLNESS: Dalila Hernandez is a 66-year-old female with past medical history of end-stage renal disease on hemodialysis every Tuesday, Tuesday and Tuesday, known to nephrology service from outpatient hemodialysis center. The patient was following up with podiatry as outpatient as she told me that she recently got her left third toe nails clipped and later on, she got infection of the left third toe, and podiatry thought that there might be osteomyelitis in the toe and there is a tentative plan to do amputation tomorrow. Today is the patient's regular day of dialysis and she missed her dialysis today, so nephrology service was called for arrangement of hemodialysis. When I saw the patient today, she denies any fever, chills, rigors. She is otherwise hemodynamically stable, but the patient does report that she is having severe pain in the bilateral lower extremities because of edema. PAST MEDICAL HISTORY: The patient has a past medical history of: 1. End-stage renal disease on hemodialysis every Tuesday, Tuesday and Tuesday. 2. Coronary artery disease. 3. Diabetes mellitus, type 2. 4. Hypothyroidism. 5. Hyperlipidemia. 6. Anemia secondary to end-stage renal disease. PAST SURGICAL HISTORY: The patient has past surgical history of: 1. Hysterectomy. 2. Appendectomy. 3. Status post left forearm arteriovenous (AV) fistula placement. 4. History of coronary artery stents in the past. 5. Status post partial amputation of the left second toe. ALLERGIES: The patient is allergic to PREGABALIN and VANCOMYCIN. FAMILY HISTORY: No significant family history of end-stage renal disease requiring hemodialysis. SOCIAL HISTORY: The patient lives at home with her . She denies any illicit drug abuse, smoking, or alcohol abuse. REVIEW OF SYSTEMS: CONSTITUTIONAL: The patient denies any fever, chills, or rigors. EYES: She denies any blurry vision or double vision. EARS, NOSE AND THROAT (ENT): She denies any dysphagia, odynophagia, or ear discharge. CARDIOVASCULAR: She denies any palpitations. She does report lower extremity edema. RESPIRATORY: She denies any cough, wheezing, or shortness of breath. GASTROINTESTINAL (GI): She denies any pain abdomen, constipation, or diarrhea. GENITOURINARY: She denies any dysuria or hematuria. MUSCULOSKELETAL: She reports pain in bilateral lower extremities and edema. She reports infection of the left third toe. CENTRAL NERVOUS SYSTEM (MEDICAL OFFICE SPECIALIST): She denies any stroke, seizure, or weakness. PSYCHIATRIC: She denies any depression or anxiety. SKIN: She denies any rashes or ulcers. ENDOCRINE: She reports history of diabetes and hypothyroidism. All other review of systems is negative. PHYSICAL EXAMINATION: GENERAL: The patient is awake, alert, and oriented times three, sitting in bed, in no apparent distress. VITAL SIGNS: Temperature is 97.5 degrees Fahrenheit, blood pressure is 162/71, pulse is 61, respiratory rate of 16, saturating 96% on room air. INTAKE AND OUTPUT: There is no intake or output recorded. Weight on the bed scale is 98.6 kg. HEAD AND NECK EXAMINATION: Extraocular muscles intact. Pupils are equally round and reactive to light. Mucous membranes are moist. Neck is supple. There is no jugular venous distention (JVD). CARDIOVASCULAR: S1, S2, regular rate. No murmur, rub, or gallop. RESPIRATORY: Chest is clear to auscultation bilaterally. Bilateral equal air entry. No rales or rhonchi. ABDOMEN: Soft, obese. Positive bowel sounds. Nontender. No ascites. No organomegaly. MUSCULOSKELETAL: The patient has 2+ edema of the bilateral lower extremities with tenderness to deep palpation and the patient has a left third toe covered with a dressing at this time. CENTRAL NERVOUS SYSTEM (MEDICAL OFFICE SPECIALIST): No focal neurological deficit. Power is 5/5 in bilateral upper extremities. SKIN: No rashes or ulcers. PSYCHIATRIC: Normal mood and affect. LABORATORY REVIEW: CBC showed a WBC of 7, hemoglobin is 8.1, platelets are 151. INR is 1.09. BMP showed a sodium of 137, potassium 4.7, chloride 101, bicarbonate 29, BUN 68, creatinine is 5.8, calcium is 6.5. Chest x-ray shows moderate to marked cardiomegaly with pulmonary vascular congestion, otherwise no acute disease. CURRENT INPATIENT MEDICATIONS: The patient is currently on: - cephazolin 1 gram IV every 12 hours - TUMS 500 mg by mouth with meals - Plavix 75 mg by mouth daily - Cymbalta 30 mg by mouth daily - Zetia 10 mg by mouth at bedtime - Neurontin 200 mg by mouth three times a day - insulin sliding scale - levothyroxine 100 mcg by mouth daily - metoprolol XL 50 mg by mouth twice a day - Zofran 4 mg by mouth every six hours as needed for nausea - Protonix 40 mg daily - Requip 4 mg by mouth three times a day - simvastatin 20 mg at bedtime - tramadol 50 mg every six hours as needed for moderate pain - trazodone 100 mg at bedtime - vitamin D 2000 units by mouth daily ASSESSMENT: A 66-year-old female with a past medical history of end-stage renal disease on hemodialysis, coronary artery disease, history of diastolic congestive heart failure, admitted this time because of infection of left third toe. PLAN: 1. End-stage renal disease, on hemodialysis. The patient's regular dialysis days are Tuesday, Tuesday and Tuesday. The patient does have significant lower extremity edema and she does have congestion on the chest x-ray as well. I have arranged the urgent hemodialysis session to be done today. Her regular duration of dialysis is four hours. However, she will be dialyzed for three hours for removal of fluid and she will be evaluated again tomorrow for any need of further hemodialysis or ultrafiltration. 2. Left third toe infection. The patient has already been started on Ancef. Podiatry is on board. There is a plan for possible partial amputation of the left third toe tomorrow morning. 3. Heart failure with a preserved ejection fraction. The patient does have volume overload. She is noncompliant with fluid restriction. The patient was getting extra ultrafiltration sessions as outpatient as well. Volume status will be optimized with hemodialysis. If needed, the patient will get further ultrafiltration during this admission as well. 4. Coronary artery disease. Continue current dose of Plavix 75 mg by mouth daily. Continue simvastatin 20 mg by mouth at bedtime. Okay to continue Zetia 10 mg by mouth at bedtime. 5. Hypertension. Blood pressure is acceptable at this time. Continue current dose of metoprolol XL 50 mg by mouth twice a day. Blood pressure is also expected to improve with hemodialysis and ultrafiltration today. 6. Chronic kidney disease, mineral bone disease. Phosphorus level is not available at this time. Continue TUMS 500 mg by mouth three times a day with meals. Check the phosphorus level. 7. Pain in bilateral lower extremities. Pain is secondary to peripheral neuropathy and lower extremity edema. The patient is already on gabapentin and tramadol. I would give the lidocaine patch to the patient to help improve the pain in the lower extremities. 8. Diabetes mellitus, type 2. The patient is insulin dependent. She is on Toujeo and insulin sliding scale as outpatient. Management is as per primary team. She can be given half the dose of Toujeo while she is nothing by mouth and pending surgery. 9. Hypothyroidism. Continue current dose of levothyroxine 100 mcg by mouth daily. Thank you for involving us in the care of this patient. We shall be happy to follow the patient along with you tomorrow morning. Plan of care was discussed with Dr. Nash.
[2017-08-15] MEDS: traMADol 50 MG TAB PO PRN (17:50)
[2017-08-15] MEDS ORDERED: LIDOCAINE 1% SDV 5 ML VIAL SQ ONE (19:45)
[2017-08-15] MEDS ORDERED: HEPARIN 1,000 UNITS/ML 10ML VIAL (FOR RADIOLOGY& DIALYSIS ONLY) IV ONE (19:45)
[2017-08-15] MEDS: METOPROLOL SUCC (TopROL XL) 50MG **XL** TAB PO SCH (21:16)
[2017-08-15] MEDS: rOPINIRole 1MG TAB PO SCH (21:16)
[2017-08-15] MEDS: traZODone 100 MG TAB PO SCH (21:16)
[2017-08-15] MEDS: GABAPENTIN 100 MG CAP PO SCH (21:16)
[2017-08-15] MEDS: EZETIMIBE 10 MG TAB (ZETIA) PO SCH (21:16)
[2017-08-15] MEDS: SIMVASTATIN 20 MG TAB PO SCH (21:17)
--- NOTE | 2017-08-15 21:51 | ECGEPIP ---
Stationary ECG Study [facility] Test Date: 2017-08-15 Pat Name: GUI JEAN Department: Room: [place] [address] Gender: F Open Tenter Operator: REGINA : 1950 Requested By: Kody Nash Order Number: [id number] Reading MD: Jasiel Maldonado Measurements Intervals [place] Rate: 68 P: 27 [place]: 164 QRS: -28 QRSD: 88 T: 62 QT: 444 QTc: 473 Interpretive Statements Normal sinus rhythm Left axis deviation Probable left ventricular hypertrophy Anterior [place], age indeterminate Nonspecific ST-T wave abnormalities No significant change when compared to prior tracing of 08/04/2017 Electronically Signed On 08-15-2017 21:51:27 EDT by Jasiel Maldonado
[2017-08-15 22:00] VITALS: BP 182/77
[2017-08-15] MEDS ORDERED: LIDOCAINE TOP PRN (22:30)
[2017-08-15] MEDS ORDERED: ASPERCREME 4% TOP PRN (22:30)
[2017-08-16] VITALS (7 sets, daily range): BP systolic 145–164; BP diastolic 67–77
[2017-08-16] MEDS: traMADol 50 MG TAB PO PRN ×2 (01:32→23:21)
[2017-08-16] MEDS: LEVOTHYROXINE 100MCG TABLET (0.1MG) PO SCH (06:35)
[2017-08-16 06:47] LABS: MEAN CORPUSCULAR HGB CONC 31.3 g/dl (32.0-36.5); MEAN CORPUSCULAR VOLUME 99.2 fl (80.0-96.0); RED CELL DISTRIBUTION WIDTH 17.3 % (11.5-14.5); WHITE BLOOD COUNT 6.1 K/mm3 (4.0-10.0)
[2017-08-16 07:07] LABS: CALCIUM LEVEL 7.2 MG/DL (8.8-10.2); CREATININE FOR GFR 4.23 MG/DL (0.55-1.02); GLOMERULAR FILTRATION RATE 11.1 (>45); POTASSIUM SERUM 4.1 MEQ/L (3.5-5.1)
[2017-08-16] MEDS: CLOPIDOGREL 75 MG TAB PO SCH (07:34)
[2017-08-16] MEDS: HumaLOG INSULIN (NovoLOG) PER UNIT SC SCH ×4 (08:42→21:01)
[2017-08-16] MEDS: VITAMIN D 1,000 INTERNATIONAL UNITS TABLET PO SCH (08:42)
[2017-08-16] MEDS: PANTOPRAZOLE 40MG TAB (PROTONIX) PO SCH (08:42)
[2017-08-16] MEDS: rOPINIRole 1MG TAB PO SCH ×3 (08:42→21:16)
[2017-08-16] MEDS: CALCIUM CARBONATE 500 MG CHEW U/D PO SCH ×3 (08:42→17:30)
[2017-08-16] MEDS: GABAPENTIN 100 MG CAP PO SCH ×3 (08:42→21:15)
[2017-08-16] MEDS: DULoxetine 30 MG CAP (CYMBALTA) PO SCH (08:42)
[2017-08-16] MEDS: METOPROLOL SUCC (TopROL XL) 50MG **XL** TAB PO SCH ×2 (08:43→21:15)
[2017-08-16] MEDS: LIDOCAINE 5% (LIDODERM) PATCH TD SCH (10:22)
[2017-08-16] MEDS: ceFAZolin SOD 1 GM in D5W MINI-BAG PLUS 50 ML IV SCH ×2 (10:22→21:16)
[2017-08-16] MEDS: TORSEMIDE 100 MG TAB PO SCH ×2 (11:25→16:14)
--- NOTE | 2017-08-16 12:25 | IPN ---
DATE OF SERVICE: 08/16/2017 SUBJECTIVE: The patient was seen and examined at the bedside today morning. The patient was dialyzed yesterday. The patient is pending left third toe surgery. She ate her breakfast and she said she is going to be nothing by mouth (n.p.o.) from now on. She was dialyzed yesterday. She tolerated the hemodialysis procedure well. Her main complaint at this time is severe pain in the bilateral lower extremities. REVIEW OF SYSTEMS: The patient denies any fever, chills, rigors, headache, nausea, vomiting, chest pain, shortness of breath, pain in abdomen, constipation or diarrhea. She does report bilateral lower extremity edema and tenderness. The rest of the review of systems is negative. OBJECTIVE: VITAL SIGNS: Temperature 97.1 degrees Fahrenheit. Blood pressure 153/76. Pulse 60. Respiratory rate 20. Saturating 95% on room air. INTAKE AND OUTPUT: Urine output is not recorded. Ultrafiltration with hemodialysis was 3 liters yesterday. Weight on the bed scale is 87.5 kg. PHYSICAL EXAMINATION: GENERAL: The patient is awake, alert and oriented times three, sitting in the bed in no apparent distress. HEAD AND NECK EXAM: Extraocular muscles intact. Pupils equally round and reactive to light. Mucous membranes are moist. Neck is supple. There is no jugular venous distention (JVD). CARDIOVASCULAR: S1, S2. Regular rate. No murmur, rub or gallop. RESPIRATORY: Chest is clear to auscultation bilaterally. Bilateral equal air entry. No rales or rhonchi. ABDOMEN: Soft. Obese. Positive bowel sounds. Nontender. No ascites. No organomegaly. MUSCULOSKELETAL: The patient has 2+ pitting edema of the bilateral lower extremities up to the thighs. Bilateral lower extremities are tender to palpation and left third toe is covered with a dressing at this time. CENTRAL NERVOUS SYSTEM: No focal neurological deficit. Power is 5/5 in bilateral upper extremities. PSYCHIATRIC: Normal mood and affect. LAB REVIEW: CBC showed WBC of 6.1, hemoglobin 8.5 and platelets of 154. BMP showed sodium 137, potassium 4.1, chloride 98, bicarbonate 32, BUN 39, creatinine 4.2. CURRENT INPATIENT MEDICATIONS: The patient's medications are all reviewed by me. The patient was given a dose of Aranesp 200 mcg IV with hemodialysis. The patient has been started on lidocaine topical patches for pain in the lower extremities. There is no other change in the medications today as compared with yesterday. ASSESSMENT: 66-year-old female with past medical history of end stage renal disease on hemodialysis given Tuesday, Tuesday and Tuesday, history of coronary artery disease, diastolic congestive heart failure, admitted at this time because of infection of the left third toe. PLAN: 1. End stage renal disease on hemodialysis. The patient's regular dialysis days are Tuesday, Tuesday, Tuesday. She was dialyzed according to her regular regimen yesterday. No urgent need of hemodialysis today. Next hemodialysis session will be done tomorrow. 2. Left third toe infection. The patient is getting IV Ancef. Podiatry is on board. There is a tentative plan to do left third toe partial amputation today. 3. Heart failure with preserved ejection fraction. The patient was dialyzed yesterday, 3 liters of fluid was removed yesterday. I offered ultrafiltration to the patient today, but she does not want to get hemodialysis today on the day of her procedure. She takes torsemide at home. I am going to restart her home torsemide dose of 100 mg by mouth twice a day on non-dialysis days and 100 mg by mouth at bedtime on dialysis days. 4. Anemia secondary to end stage renal disease. Hemoglobin is suboptimal. The patient was given a dose of Aranesp with hemodialysis yesterday. Continue to monitor for improvement. No need of blood transfusion at this time. 5. Bilateral lower extremity pain and tenderness. It is secondary to edema and peripheral neuropathy. Continue current dose of gabapentin 200 mg by mouth twice a day. I have also started the patient on Lidoderm patches. 6. Hypertension. Blood pressure is acceptable at this time. Continue current dose of metoprolol XL 50 mg by mouth twice a day.
--- NOTE | 2017-08-16 13:23 | IPN ---
DATE OF SERVICE: 08/16/2017 Ms. Hernandez is feeling well today. She has no complaints of chest pain. No shortness of breath. She has had shortness of breath previously, but it is usually related to fluid status. She did have dialysis last night. She had breakfast and tolerated that. She has some anxiety about the procedure today. Temperature 97.1, pulse 60, respiratory rate 20, blood pressure 153/76, 95% on room air, body mass index was 35.3. She is awake, appropriately interactive, pleasantly conversant. Breathing is symmetrical, rested. I-to-E ratio is 1:3. No wheezes, rales, or rhonchi. Speaking in complete sentences. No accessory muscle use. Heart is distant sounding. Normal S1, S2. Radial pulse 2+. Capillary refill is less than 2 seconds. Abdomen: Soft, doughy, nontender. Foot is cleanly dressed. White cell count is 6.1, hemoglobin 8.5, platelets of 164. BUN 39, creatinine 4.23. My assessment is as follows: This is a 66-year-old end-stage renal disease on hemodialysis with diabetes, diabetic foot requiring amputation of toe on her left foot. The plan is as follows: 1. Podiatric. The patient is planned to go to surgery today with Dr. Gutierres. Was dialyzed yesterday in preparation for that surgery. 2. The patient has history of coronary artery disease. Is on Plavix, which is continued perioperatively. Continuing beta blockade in the perioperative period. 3. The patient has a history of congestive heart failure with preserved left ventricular ejection fraction. Fluid status seems to be euvolemic today after dialysis last night. Greatly appreciate Dr. Moore's assistance. 4. The patient has diabetes. Was on a sliding scale of insulin in the hospital. 5. The patient has hypothyroidism. 6. The patient has hyperlipidemia. 7. The patient has hypertension. 8. The patient has restless legs syndrome.
[2017-08-16] MEDS ORDERED: BUPIVACAINE HCL 0.5% 10 ML VIAL As Ordered ONE (17:04)
[2017-08-16] MEDS ORDERED: LIDOCAINE 1% MDV 20ML VIAL As Ordered ONE (17:04)
--- NOTE | 2017-08-16 17:28 | CR ---
DATE OF CONSULTATION: 08/16/2017 REASON FOR CONSULTATION: Left third toe infection. HISTORY OF PRESENT ILLNESS: Dalila Hernandez is a patient well known to me who was seen in my office yesterday with worsening ulceration and infection to her left third toe. She had been treating it with outpatient antibiotics without success. The wound was noted to be more painful and worse in appearance. She was sent to the hospital for admission. She was tentatively scheduled for the operating room last night, but due to operating room (OR) schedule and due to her volume status, it was decided that it would better to have her have a dialysis session last night and reschedule the OR procedure for today. PAST MEDICAL HISTORY: Significant for: 1. Coronary artery disease with cardiac stenting. 2. Hypertension. 3. Type 2 diabetes. 4. Hypothyroidism. 5. Hyperlipidemia. 6. Chronic kidney failure, on dialysis. PAST SURGICAL HISTORY: 1. Coronary artery stents. 2. Left arteriovenous (AV) fistula. 3. Appendectomy. 4. Hysterectomy. 5. Left second toe partial amputation. ALLERGIES: LYRICA and VANCOMYCIN. SOCIAL HISTORY: Nonsmoker. Denies alcohol use. FAMILY HISTORY: Noncontributory. REVIEW OF SYSTEMS: Denies nausea, vomiting, fever, or chills. LOWER EXTREMITY EXAMINATION: Pulses are palpable. There is ulceration to the left third toe distally with erythema surrounding. There is necrotic tissue at the distal aspect of the wound. ASSESSMENT: A 66-year-old diabetic female with left third toe ulceration, cellulitis, suspected osteomyelitis. PLAN: For operating room tonight for third toe amputation. We will continue antibiotics presently.
[2017-08-16] MEDS ORDERED: fentaNYL 100 MCG/2 ML INJECTION (J3010) As Ordered ONE (17:35)
[2017-08-16] MEDS ORDERED: ONDANSETRON 4MG/2ML VIAL (J2405) As Ordered ONE (17:47)
[2017-08-16] MEDS ORDERED: PROPOFOL 200 MG/20 ML VIAL As Ordered ONE (17:47)
--- NOTE | 2017-08-16 18:17 | RO ---
DATE OF PROCEDURE: 08/16/2017 PREPROCEDURE DIAGNOSIS: Left 3rd toe diabetic ulceration, cellulitis, suspected osteomyelitis. POSTPROCEDURE DIAGNOSIS: Left 3rd toe diabetic ulceration, cellulitis, suspected osteomyelitis. PROCEDURE: Left 3rd toe amputation. SURGEON: Hubert Gutierres DPM WOOD MECHANIST: None. ANESTHESIA: Monitored anesthesia care with perioperative injection of 14 mL of 1:1 mixture of 1% lidocaine plain and 0.5% Marcaine plain. ESTIMATED BLOOD LOSS: Minimal. MATERIALS: #3-0 nylon. INJECTABLES: None. COMPLICATIONS: None. SPECIMEN: Left 3rd toe. Dalila Hernandez is a 66-year-old female who was admitted to [facility] ([facility]) with worsening ulceration and infection of her left 3rd toe. The decision was made to bring her to the operating room for left 3rd toe amputation. The patient's side and site were identified and marked in the preoperative holding area. Consent was reviewed and obtained. All risks, complications, and alternatives to the procedure were explained to the patient in detail. All questions were answered. DESCRIPTION OF PROCEDURE: The patient was brought to the operating room, placed on the operating room table in supine position, monitored anesthesia care was delivered by the anesthesia team. Perioperative injection of 14 mL of a 1:1 mixture of 1% lidocaine plain and 0.5% Marcaine plain were injected into the left foot. The left foot was prepped and draped in the normal sterile fashion. No tourniquet was used during the procedure. A fishmouth incision was drawn around the left 3rd toe. There was noted to be skin sloughing distal to the proximal interphalangeal joint level. This was carried through with a #15 blade, full thickness. The toe was disarticulated at the proximal interphalangeal joint. The toe was sent for pathology. The head of the proximal phalanx was resected with bone cutter and smoothed with a rongeur. Cutter was used to maintain hemostasis. The toe was debrided of nonviable tissue. The incision was closed with #3-0 nylon. Sterile dressing were applied. The patient was brought to the post-anesthesia care unit (PACU), vital signs stable, neurovascular status intact. She will be readmitted for antibiotics and monitoring. She will be followed while in house.
[2017-08-16] MEDS ORDERED: HYDROmorphone HCL 1 MG/ML SYRINGE (J1170) IV PRN (18:30)
[2017-08-16] MEDS ORDERED: fentaNYL 100 MCG/2 ML INJECTION (J3010) IV PRN (18:30)
[2017-08-16] MEDS ORDERED: PERCOCET 5MG/325MG TAB PO PRN (18:30)
[2017-08-16] MEDS ORDERED: LR 1,000 ML IV SCH (18:30)
[2017-08-16] MEDS ORDERED: ONDANSETRON 4MG/2ML VIAL (J2405) IV PRN (18:30)
[2017-08-16] MEDS: SIMVASTATIN 20 MG TAB PO SCH (21:15)
[2017-08-16] MEDS: traZODone 100 MG TAB PO SCH (21:15)
[2017-08-16] MEDS: EZETIMIBE 10 MG TAB (ZETIA) PO SCH (21:16)
[2017-08-16] MEDS: **NOTE PATIENT COMMENT** MISC XX SCH (21:17)
[2017-08-17] MEDS: CLOPIDOGREL 75 MG TAB PO SCH (05:48)
[2017-08-17] MEDS: LEVOTHYROXINE 100MCG TABLET (0.1MG) PO SCH (05:48)
[2017-08-17] MEDS: CALCIUM CARBONATE 500 MG CHEW U/D PO SCH ×3 (05:48→18:11)
[2017-08-17] MEDS: DULoxetine 30 MG CAP (CYMBALTA) PO SCH (05:48)
[2017-08-17] MEDS: PANTOPRAZOLE 40MG TAB (PROTONIX) PO SCH (05:48)
[2017-08-17] MEDS: rOPINIRole 1MG TAB PO SCH ×3 (05:49→21:29)
[2017-08-17] MEDS: GABAPENTIN 100 MG CAP PO SCH ×3 (05:49→21:29)
[2017-08-17] MEDS: LIDOCAINE 5% (LIDODERM) PATCH TD SCH (05:49)
[2017-08-17] MEDS: VITAMIN D 1,000 INTERNATIONAL UNITS TABLET PO SCH (05:49)
[2017-08-17 06:00] VITALS: BP 148/80
[2017-08-17 06:29] LABS: MEAN CORPUSCULAR HEMOGLOBIN 31.1 pg (27.0-33.0); MEAN CORPUSCULAR HGB CONC 31.6 g/dl (32.0-36.5); MEAN CORPUSCULAR VOLUME 98.4 fl (80.0-96.0); RED CELL DISTRIBUTION WIDTH 17.2 % (11.5-14.5)
[2017-08-17 06:49] LABS: CALCIUM LEVEL 7.1 MG/DL (8.8-10.2); CREATININE FOR GFR 5.11 MG/DL (0.55-1.02); GLOMERULAR FILTRATION RATE 8.9 (>45)
[2017-08-17] MEDS: HumaLOG INSULIN (NovoLOG) PER UNIT SC SCH ×4 (08:24→20:20)
[2017-08-17] MEDS: METOPROLOL SUCC (TopROL XL) 50MG **XL** TAB PO SCH ×2 (08:26→21:29)
[2017-08-17] MEDS: ceFAZolin SOD 1 GM in D5W MINI-BAG PLUS 50 ML IV SCH ×2 (09:51→21:32)
[2017-08-17] MEDS ORDERED: HEPARIN 1,000 UNITS/ML 10ML VIAL (FOR RADIOLOGY& DIALYSIS ONLY) IV ONE (10:30)
[2017-08-17] MEDS ORDERED: LIDOCAINE 1% SDV 5 ML VIAL SQ ONE (10:30)
--- NOTE | 2017-08-17 12:20 | IPN ---
DATE OF SERVICE: 08/17/2017 SUBJECTIVE: Patient was seen and examined at the bedside today morning during work rounds and again at during hemodialysis procedure. Last 24 hour events noted, patient got the amputation of the left 3rd toe done by podiatry yesterday. REVIEW OF SYSTEMS: Patient denies any fever, chills, rigors, headache, nausea, vomiting, chest pain, shortness of breath, pain in abdomen, constipation or diarrhea. She reports that bilateral lower extremity pain is significantly better with the Lidoderm patches. Rest of review of system is negative. OBJECTIVE: VITAL SIGNS: Temperature is 97.4 degrees Fahrenheit. Blood pressure is 148/80. Pulse is 59. Respiratory rate of 20. Saturating 99% on room air. INTAKE AND OUTPUT: Urine output recorded as 450 mL overnight. Weight on the bed scale is 87.9 kg. PHYSICAL EXAMINATION: GENERAL: Patient is awake, alert, oriented times three, laying in bed, getting hemodialysis done. No apparent distress. HEAD AND NECK EXAM: Extraocular muscles intact. Pupils equally round and reactive to light. Mucous membranes are moist. Neck is supple. There is no jugular venous distention (JVD). CARDIOVASCULAR: S1, S2. Regular rate. No murmur, rub or gallop. RESPIRATORY: Chest is clear to auscultation bilaterally. Bilateral equal air entry. No rales or rhonchi. ABDOMEN: Soft. Obese. Positive bowel sounds. Nontender. No ascites. No organomegaly. MUSCULOSKELETAL: Patient has 2+ pitting edema of the bilateral lower extremities. He has a dressing on the left 3rd toe amputation site. Patient is wearing Lidoderm patches on the inner thighs bilaterally. CENTRAL NERVOUS SYSTEM: No focal neurological deficit. Power is 5/5 in bilateral upper extremities. PSYCHIATRIC: Normal mood and affect. LAB REVIEW: CBC showed WBC of 6, hemoglobin 9.1, platelets of 158. BMP showed sodium 139, potassium is 5, chloride 99, bicarbonate is 30, BUN 51, creatinine is 5.1. CURRENT INPATIENT MEDICATIONS: Patient's medications were all reviewed by me. She continues to be on intravenous (IV) cefazolin. Fentanyl was given yesterday for pain after the procedure. There is no other change in the medications today as compared with yesterday. ASSESSMENT: 66-year-old female with past medical history of end-stage renal disease on hemodialysis every Tuesday/Tuesday/Tuesday, diabetes mellitus type 2, history of coronary artery disease and diastolic congestive heart failure, admitted this time because of infection of the left 3rd toe. PLAN: 1. End-stage renal disease on hemodialysis. Patient's regular dialysis days are Tuesday/Tuesday/Tuesday. She is being dialyzed according to her regular schedule today. We shall try to do an ultrafiltration of around 3 kg as tolerated by her blood pressure. 2. Left 3rd toe infection. Patient is status post amputation of the left 3rd toe. It was done yesterday. Continues to be on IV Ancef at this time. Rest of the management is as per podiatry service. 3. Heart failure with preserved ejection fraction. Patient has been restarted on home dose of her diuretics. She is making around 400-500 mL of urine on non dialysis days. Continue the current diuretics. Hemodialysis, then ultrafiltration would further help improve lower extremity edema. 4. Anemia secondary to end-stage renal disease. Patient will get a dose of Aranesp 200 mcg IV with hemodialysis once a week while she is here. 5. Bilateral lower extremity pain and tenderness. It is secondary to peripheral neuropathy and lower extremity edema. She is already on gabapentin. Lidoderm patches help improve her pain significantly since yesterday. 6. Hypertension. Blood pressure is acceptable at this time. Continue current dose of diuretics. Continue metoprolol XL 50 mg by mouth twice a day. MTDD
--- NOTE | 2017-08-17 12:27 | IPN ---
DATE: 08/17/2017 Patient seen and examined at bedside. She is alert and comfortable. Denies pain in her foot. Denies overnight complaints significant for nausea, vomiting, fever, chills. Vital signs are reviewed. Patient has been afebrile. Labs are reviewed. White blood cell count 6, hemoglobin is 9.1. Lower extremity exam: Dressing is clean, dry and intact. ASSESSMENT: 66-year-old female with status post left 3rd toe amputation. PLAN: Patient will be okay for discharge tomorrow. Continue IVs until tomorrow. At which time, she can be transitioned to oral medication. Okay to discharge her on cefazolin times 10 days.
[2017-08-17] MEDS: traMADol 50 MG TAB PO PRN ×2 (12:48→21:30)
--- NOTE | 2017-08-17 15:15 | IPN ---
DATE: 08/17/2017 Ms. Hernandez is feeling well today. She has no complaints of pain, chest pain. No shortness of breath. Tolerating diet. She is a little bit upset because she was hoping the rest of her toe would be amputated. Temperature 97.4, pulse 69, respiratory rate 20, blood pressure 148/80, 99% on room air. Input and output notable for positive fluid balance of 1000. Weight is recorded as 87.9 kg, Body Mass Index (BMI) is 35.4. She is awake, appropriately interactive, sitting at bedside, pleasantly conversant. Mucous membranes. Neck is supple, thick. Breathing is symmetrical. I-to-E ratio is 1:3. Heart is distant sounding. Normal S1, S2. Abdomen: Soft, doughy, nontender. Foot is cleanly dressed. White cell count is 6.1, platelets of 158. BUN 51, creatinine 5.1. My assessment is as follows: This is a 66-year-old end-stage renal disease on hemodialysis with diabetes, diabetic foot requiring amputation of toe on her left foot, postoperative day number 1 from amputation. The plan is as follows: 1. Podiatric. Discussed this case in person with Dr. Gutierres. Plan will be to continue 10 days of Keflex tomorrow, assuming tonight goes well. 2. The patient has end stage renal disease, on hemodialysis. Planned for dialysis today. Being followed by Dr. Moore. 3. The patient has hypertension. Blood pressure is reasonably controlled for the current setting. Continue current care. 3. The patient has a history of congestive heart failure with preserved left ventricular ejection fraction. Seems to be reasonably compensated, but would benefit from dialysis. 4. The patient has diabetes. Fingersticks have been reasonably controlled except now higher this morning. We will monitor this clinically. 5. The patient has hypothyroidism. 6. The patient has hyperlipidemia. 7. The patient has restless legs syndrome. MTDD
[2017-08-17] MEDS ORDERED: TORSEMIDE 100 MG TAB PO SCH (21:00)
[2017-08-17] MEDS: **NOTE PATIENT COMMENT** MISC XX SCH (21:00)
[2017-08-17] MEDS: EZETIMIBE 10 MG TAB (ZETIA) PO SCH (21:29)
[2017-08-17] MEDS: SIMVASTATIN 20 MG TAB PO SCH (21:29)
[2017-08-17] MEDS: traZODone 100 MG TAB PO SCH (21:30)
[2017-08-17 22:00] VITALS: BP 152/75
[2017-08-18] MEDS: LEVOTHYROXINE 100MCG TABLET (0.1MG) PO SCH (05:48)
[2017-08-18] MEDS: traMADol 50 MG TAB PO PRN (05:54)
[2017-08-18 06:00] VITALS: BP 157/77
[2017-08-18 07:06] LABS: MEAN CORPUSCULAR HEMOGLOBIN 31.4 pg (27.0-33.0); MEAN CORPUSCULAR HGB CONC 31.8 g/dl (32.0-36.5); MEAN CORPUSCULAR VOLUME 98.7 fl (80.0-96.0); RED CELL DISTRIBUTION WIDTH 17.4 % (11.5-14.5); WHITE BLOOD COUNT 5.3 K/mm3 (4.0-10.0)
[2017-08-18 07:24] LABS: CALCIUM LEVEL 7.9 MG/DL (8.8-10.2); CREATININE FOR GFR 3.74 MG/DL (0.55-1.02); GLOMERULAR FILTRATION RATE 12.8 (>45)
[2017-08-18] MEDS: CLOPIDOGREL 75 MG TAB PO SCH (07:56)
[2017-08-18 07:58] VITALS: BP 157/77
[2017-08-18] MEDS: GABAPENTIN 100 MG CAP PO SCH (07:58)
[2017-08-18] MEDS: rOPINIRole 1MG TAB PO SCH (07:58)
[2017-08-18] MEDS: METOPROLOL SUCC (TopROL XL) 50MG **XL** TAB PO SCH (07:58)
[2017-08-18] MEDS: VITAMIN D 1,000 INTERNATIONAL UNITS TABLET PO SCH (07:58)
[2017-08-18] MEDS: CALCIUM CARBONATE 500 MG CHEW U/D PO SCH ×2 (07:58→11:59)
[2017-08-18] MEDS: DULoxetine 30 MG CAP (CYMBALTA) PO SCH (07:58)
[2017-08-18] MEDS: HumaLOG INSULIN (NovoLOG) PER UNIT SC SCH ×2 (07:59→12:00)
[2017-08-18] MEDS: LIDOCAINE 5% (LIDODERM) PATCH TD SCH (07:59)
[2017-08-18] MEDS: TORSEMIDE 100 MG TAB PO SCH (07:59)
[2017-08-18] MEDS: PANTOPRAZOLE 40MG TAB (PROTONIX) PO SCH (08:00)
[2017-08-18] MEDS ORDERED: DOCUSATE SODIUM 100 MG CAP PO PRN (08:00)
[2017-08-18] MEDS ORDERED: SENNA 8.6 MG TAB (SENOKOT) PO PRN (08:00)
[2017-08-18] MEDS: ceFAZolin SOD 1 GM in D5W MINI-BAG PLUS 50 ML IV SCH (09:07)
[2017-08-18] MEDS ORDERED: CEPH500C PO (10:27)
[2017-08-18] MEDS ORDERED: MOM 30ML SUSPENSION UDC PO ONE (10:30)
--- NOTE | 2017-08-18 10:41 | DS.PDOC ---
Discharge Summary General Date of Admission Aug 15, 2017 at 16:18 Date of Discharge 08/18/17 Specialist/Consultants Involve: RIAZ LE DPM Specialist/Consultants Involve Dr. Reed Discharge Summary PROCEDURES PERFORMED DURING STAY: Left 3rd toe debridement DISCHARGE DIAGNOSES: 1. Diabetic foot ulcer s/p debridement 2. ESRD/HD 3. acute/chronic diastolic CHF due to ESRD and non-compliance with fluid restriction 4. HTN 5. Diabetes 6. Hypothyroidism 7. Hyperlipidemia 8. RLS 9. CAD s/p stents COMPLICATIONS/CHIEF COMPLAINT: Pain Left 3RD Toe Cellulitis And Ulceration. HOSPITAL COURSE: 66 yo female direct admission from home care attendant office for for worsening left 3rd toe cellulitis and ulceration. Also found to be fluid overloaded. Evaluated by Podiatry for planned surgical intervention, procedure was delayed for dialysis for fluid overload. Patient underwent amputation and received IV antibiotics. Patient evaluated by PT and follow up by Podiatry. Discharged home with outpatient follow up. DISCHARGE MEDICATIONS: Please see below. ALLERGIES: Please see below. PHYSICAL EXAMINATION ON DISCHARGE: VITAL SIGNS: Please see below. GENERAL: NAD HEENT: NC/AT, EOMI, PERRL NECK: supple CARDIOVASCULAR EXAMINATION: +S1S2, RRR RESPIRATORY EXAMINATION: CTA B/L ABDOMINAL EXAMINATION: soft, NT, +BS EXTREMITIES: no edema PSYCHIATRIC EXAMINATION: AAOx3 LABORATORY DATA: Please see below. ACTIVITY: [As tolerated]. DIET: 2 gram sodium, carb consistent, renal, fluid restrictions as prescribed DISPOSITION: Discharge home. DISCHARGE INSTRUCTIONS: 1. Medications as directed. 2. Follow up PCP and Podiatry as scheduled 3. Fluid restriction as directed 4. Dialysis as scheduled 5. Activity as directed and as tolerated DISCHARGE CONDITION: [Stable]. TIME SPENT ON DISCHARGE: Greater than 30 minutes. Vital Signs/I&Os Vital Signs Date Time Temp Pulse Resp B/P (MAP) Pulse Ox O2 Delivery O2 Flow Rate FiO2 08/18/17 09:00 Room Air 08/18/17 07:58 55 157/77 08/18/17 06:24 18 08/18/17 06:00 98.1 96 08/16/17 21:45 I&O- Last 24 Hours up to 6 AM 08/19/17 05:59 Intake Total 800 ml Output Total 200 ml Balance 600 ml Laboratory Data Labs 24H Laboratory Tests 2 08/17/17 12:15: Bedside Glucose (Misc Panel) 357H 9/20/17 17:49: Bedside Glucose (Misc Panel) 126H 08/17/17 20:17: Bedside Glucose (Misc Panel) 205H 08/18/17 06:34: Anion Gap 9, Glomerular Filtration Rate 12.8L, Blood Urea Nitrogen 35H, Creatinine 3.74H, Sodium Level 140, Potassium Level 4.0, Chloride Level 101, Carbon Dioxide Level 30, Calcium Level 7.9L CBC/BMP Laboratory Tests 08/18/17 06:34 Red Blood Count 2.84 L, Mean Corpuscular Volume 98.7 H, Mean Corpuscular Hemoglobin 31.4, Mean Corpuscular Hemoglobin Concent 31.8 L, Red Cell Distribution Width 17.4 H, Calcium Level 7.9 L FSBS Laboratory Tests Test 08/17/17 12:15 08/17/17 17:49 08/17/17 20:17 Range/Units Bedside Glucose (Misc Panel) 357 126 205 80-115 MG/DL Discharge Medications Scheduled ([facility]) 300 Unit/Ml Inj, 85 UNITS SC BID, (Reported) Calcium Carbonate (Tums) 500 Mg Chw, 500 MG PO AC, (Reported) Cephalexin Monohydrate (Cephalexin) 500 Mg Cap, 500 MG PO TID FILLED 08/11/17 FOR 7 DAYS Cholecalciferol (Vitamin D) 2,000 Unit Tab, 2,000 UNIT PO DAILY, (Reported) Clopidogrel Bisulfate (Plavix) 75 Mg Tab, 75 MG PO DAILY, (Reported) Duloxetine Hcl (Cymbalta) 30 Mg Cap, 30 MG PO DAILY, (Reported) Ezetimibe (Zetia) 10 Mg Tab, 10 MG PO QHS, (Reported) Gabapentin (Gabapentin) 100 Mg Cap, 200 MG PO TID, (Reported) Insulin Human Lispro (Humalog) 1 Units/0.01 Ml Inj, 0 SC ACHS, (Reported) PER SLIDING SCALE Levothyroxine Sodium (Synthroid) 100 Mcg Tab, 100 MCG PO DAILY, (Reported) Metoprolol Succinate (Toprol Xl) 50 Mg Tab, 50 MG PO BID, (Reported) Pantoprazole Sodium (Pantoprazole Sodium) 40 Mg Tab, 40 MG PO DAILY, (Reported) Ropinirole Hydrochloride (Requip) 2 Mg Tab, 4 MG PO TID, (Reported) Simvastatin (Simvastatin) 20 Mg Tab, 20 MG PO QHS, (Reported) Torsemide (Torsemide) 100 Mg Tab, 100 MG PO BID, (Reported) TAKES DAILY ON DIALYSIS DAYS TUE, TUE, TUE Trazodone HCl (Trazodone HCl) 100 Mg Tab, 100 MG PO QHS, (Reported) Scheduled PRN Nitroglycerin (Nitroglycerin) 0.4 Mg Sub, 0.4 MG SL NITRO PRN for CHEST PAIN, ( Reported) Ondansetron HCl (Ondansetron HCl) 4 Mg Tab, 4 MG PO Q6H PRN for NAUSEA, ( Reported) Tramadol HCl (Tramadol HCl) 50 Mg Tab, 100 MG PO BID PRN for PAIN, (Reported) Allergies Coded Allergies: Pregabalin (Verified Adverse Reaction, Intermediate, CONFUSION, 03/16/17) Vancomycin (Verified Adverse Reaction, Mild, 06/20/17) pt iv ? infitrate, co of puritis and benadryl ordered for localized topical itching and redness, cool compress no other adverse reactions noted DERRICK ROBLES MD Aug 18, 2017 10:41
--- NOTE | 2017-08-18 11:19 | IPN ---
DATE OF SERVICE: 08/18/2017 SUBJECTIVE: The patient was seen and examined at the bedside today morning. The patient reports that she got dialyzed yesterday. There was no problem with hemodialysis yesterday. Her pain in the lower extremities is optimized at this time. The patient is complaining of constipation. REVIEW OF SYSTEMS: The patient denies any fever, chills, rigors, headache, nausea, vomiting, chest pain, shortness of breath. She does report constipation, and she reports lower extremity pain is well optimized at this time. Rest of review of system is negative. OBJECTIVE: VITAL SIGNS: Temperature is 98.1 degrees Fahrenheit. Blood pressure is 157/77. Pulse is 55. Respiratory rate of 16. Saturating 96% on room air. INTAKE AND OUTPUT: Urine output recorded overnight is 350 mL. Ultrafiltration with hemodialysis was 3 liters yesterday. Weight in the bed scale is 86.5 kg. PHYSICAL EXAMINATION: GENERAL: The patient is awake, alert, oriented times three, sitting in the bed. No apparent distress. HEAD AND NECK EXAMINATION: Extraocular muscles intact. Pupils equally round and reactive to light. Mucous membranes are moist. Neck is supple. There is no jugular venous distention (JVD). CARDIOVASCULAR: S1, S2. Regular rate. No murmur, rub, and gallop. RESPIRATORY: Chest is clear to auscultation bilaterally. Bilateral equal air entry. No rales or rhonchi. ABDOMEN: Soft. Obese. Positive bowel sounds. Nontender. No ascites. No organomegaly. MUSCULOSKELETAL: The patient has 1+ edema of the bilateral lower extremities. Otherwise, no clubbing or cyanosis. She has a dressing on the left 3rd toe. CENTRAL NERVOUS SYSTEM: No focal neurological deficit. Power is 5/5 in bilateral upper extremities. PSYCHIATRIC: Normal mood and affect. LABORATORY REVIEW: CBC showed a WBC of 5.3, hemoglobin 8.9, platelets of 149. BMP showed sodium 140, potassium is 4, chloride 101, bicarbonate 30, BUN 35, creatinine is 3.7. CURRENT INPATIENT MEDICATIONS: The patient's medications were all reviewed by me. She has been started on Senokot. The patient was also given a dose of milk of magnesia 30 mL by mouth one dose for constipation. ASSESSMENT: A 66-year-old female with past medical history of end-stage renal disease on hemodialysis every Tuesday, Tuesday, Tuesday, diabetes mellitus type 2, history of coronary artery disease and diastolic congestive heart failure, admitted this time because of infected left 3rd toe, status post left 3rd toe amputation. PLAN: 1. End-stage renal disease, on hemodialysis. The patient's regular dialysis days are Tuesday, Tuesday, Tuesday. She was dialyzed yesterday. She has tolerated her hemodialysis procedure well. Next hemodialysis session will be tomorrow. 2. Constipation. The patient was given a dose of milk of magnesia. That will hopefully improve her constipation. Continue the Senokot at this time. 3. Status post left 3rd toe amputation. The patient is currently on intravenous (IV) antibiotic. The rest of the management is as per podiatry. 4. Heart failure with preserved ejection fraction. Continue hemodialysis and ultrafiltration with hemodialysis sessions. However, she does make significant amount of urine, and she is on high dose of diuretics to keep her euvolemic between hemodialysis sessions. DISPOSITION: It is okay to discharge the patient from nephrology standpoint. If the patient is discharged today, she will be dialyzed as outpatient tomorrow morning.
--- NOTE | 2017-08-18 12:13 | IPN ---
DATE: 08/18/2017 Patient seen and examined at bedside. States she is feeling well. Denies any overnight complaints significant for nausea, vomiting, fever, or chills. Vital signs are reviewed. Patient has been afebrile. Labs are reviewed. White blood cell count is 5.3, hemoglobin is 8.9. Lower Extremity Examination: Dressings are removed. The amputation site is well coapted. Sutures intact. No signs of extending erythema. There is improvement to the edema. Good capillary refill to the incision margins. ASSESSMENT: 66-year-old female with cellulitis, diabetic ulceration to the left 3rd toe status post amputation. PLAN: Dressings are reapplied. She will leave these dressings intact until seen in my office. Will schedule for appointment next Tuesday or Tuesday. She is okay to weight bear as tolerated in the postoperative shoe. Discharge on oral antibiotics.
[2017-08-18] MEDS ORDERED: INFLUENZA VIRUS VACCINE HIGH DOSE 0.5 ML SYRINGE (90662) IM ONE (13:00)
== END 2017-08-18 14:45 | disposition home or self-care (01) | DRG 616 ==
LOC: EDSTATUS 14:36 → M MSPAV 14:55 → M SDC 14:55 → M MSPAV 15:18 → M SDC 16:17 → M MSPAV 16:18
PROVIDERS: ADMIT Family Medicine; ATTEND Internal Medicine
PROC: 5A1D00Z (ICD-10-PCS; 2017-08-16)
PROC: 0Y6U0Z2 Detachment at Left 3rd Toe, Mid, Open Approach (ICD-10-PCS; principal; 2017-08-16 16:30)
DX: E11.621 Type 2 diabetes mellitus with foot ulcer (principal); I50.33 Acute on chronic diastolic (congestive) heart failure; I13.2 Hypertensive heart and chronic kidney disease with heart failure and with stage 5 chronic kidney disease, or end stage renal disease; N18.6 End stage renal disease; E87.70 Fluid overload, unspecified; E03.9 Hypothyroidism, unspecified; E78.5 Hyperlipidemia, unspecified; G25.81 Restless legs syndrome; Z91.19 Patient's noncompliance with other medical treatment and regimen; Z79.4 Long term (current) use of insulin; Z79.899 Other long term (current) drug therapy; Z88.1 Allergy status to other antibiotic agents; Z88.8 Allergy status to other drugs, medicaments and biological substances; I25.10 Atherosclerotic heart disease of native coronary artery without angina pectoris; D63.1 Anemia in chronic kidney disease; Z95.2 Presence of prosthetic heart valve; F32.9 Major depressive disorder, single episode, unspecified; E11.21 Type 2 diabetes mellitus with diabetic nephropathy; K59.00 Constipation, unspecified; M90.872 Osteopathy in diseases classified elsewhere, left ankle and foot; L97.529 Non-pressure chronic ulcer of other part of left foot with unspecified severity

== ENCOUNTER 2017-09-08 17:12 | Emergency (ER) | payer MEDICARE ==
[~2017-09-08] VITALS: Ht 157.5 cm; Wt 91.1 kg
[~2017-09-08 17:12] MED LIST changes: +CEPH500C PO
[2017-09-08] MEDS ORDERED: OXYCOD/APAP (17:24)
[2017-09-08] MEDS ORDERED: HYDR-3713 (17:24)
[2017-09-08 17:39] LABS: BASO % 0.3 % (0.0-1.0); EOS # 0.2 10^3/uL (0.0-0.50); EOS % 3.2 % (0.0-3.0); IMMATURE GRANULOCYTE % 2.9 % (0-0); LYMPH # 0.8 10^3/uL (1.5-4.5); LYMPH % 12.4 % (24.0-44.0); MEAN CORPUSCULAR HEMOGLOBIN 29.3 pg (27.0-33.0); MEAN CORPUSCULAR HGB CONC 28.5 g/dl (32.0-36.5); MEAN CORPUSCULAR VOLUME 102.8 fl (80.0-96.0); MONO # 0.7 10^3/uL (0.0-0.8); MONO % 11.1 % (0.0-5.0); NEUTROPHILS # 4.6 10^3/uL (1.8-7.7); NEUTROPHILS % 70.1 % (36.0-66.0); PLATELET COUNT, AUTOMATED 134 10^3/uL (150-450); RED CELL DISTRIBUTION WIDTH 18.3 % (11.5-14.5); WHITE BLOOD COUNT 6.6 10^3/uL (4.0-10.0)
[2017-09-08] MEDS ORDERED: ONDANSETRON 4MG/2ML VIAL (J2405) IV ONE (17:45)
[2017-09-08] MEDS ORDERED: MORPHINE 4 MG/ML 1ML SYRINGE IV ONE (17:45)
[2017-09-08 17:53] LABS: INR 1.07
--- NOTE | 2017-09-08 18:01 | REP ---
REASON: Chest pain. COMPARISON: There is a comparison 08/15/2017 The technique utilized in obtaining the radiograph has magnified the cardiac silhouette and accentuated the interstitial markings. Once again, there is global cardiomegaly. Once again, there is a diffuse increase in the interstitial markings throughout the lung multani without evidence of a patchy parenchymal opacity or pleural effusion. The osseous structures stable and intact. IMPRESSION: Cardiomegaly and chronic lung field changes reflecting at least a subtle degree of fibrotic change. This needs to be correlated clinically to rule out the possibility of mild interstitial edema, superimposed on chronic change. Signed by Gómez Saleh DO 09/08/2017 07:53 P
[2017-09-08 18:13] LABS: ALBUMIN 2.8 GM/DL (3.2-5.2); ALBUMIN/GLOBULIN RATIO 0.72 (1.00-1.93); ALKALINE PHOSPHATASE 251 U/L (45-117); ALT/SGPT 33 U/L (12-78); ANION GAP 6 MEQ/L (8-16); AST/SGOT 32 U/L (15-37); BILIRUBIN,DIRECT 0.2 MG/DL (0.0-0.2); BILIRUBIN,TOTAL 0.4 MG/DL (0.2-1.0); BLOOD UREA NITROGEN 40 MG/DL (7-18); CALCIUM LEVEL 7.7 MG/DL (8.8-10.2); CARBON DIOXIDE LEVEL 31 MEQ/L (21-32); CHLORIDE LEVEL 101 MEQ/L (98-107); GLOMERULAR FILTRATION RATE 13.4 (>45); GLUCOSE, FASTING 236 MG/DL (80-110); POTASSIUM SERUM 4.3 MEQ/L (3.5-5.1); SODIUM LEVEL 138 MEQ/L (136-145); TOTAL PROTEIN 6.7 GM/DL (6.4-8.2)
[2017-09-09] VITALS: BP 152/66
--- NOTE | 2017-09-09 07:42 | ECGEPIP ---
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
--- NOTE | 2017-09-09 07:46 | ECGEPIP ---
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
== END 2017-09-09 00:13 | disposition home or self-care (01) ==
LOC: M ED 17:12 → EDBD 17:12 → M ED 09-09 00:13
DX: R07.9 Chest pain, unspecified (principal); N18.6 End stage renal disease; Z99.2 Dependence on renal dialysis; I50.9 Heart failure, unspecified; I25.2 Old myocardial infarction; E11.9 Type 2 diabetes mellitus without complications; I10 Essential (primary) hypertension; E78.5 Hyperlipidemia, unspecified; E07.9 Disorder of thyroid, unspecified; I77.0 Arteriovenous fistula, acquired; Z95.5 Presence of coronary angioplasty implant and graft; Z89.429 Acquired absence of other toe(s), unspecified side; I51.7 Cardiomegaly; J84.10 Pulmonary fibrosis, unspecified; Z79.4 Long term (current) use of insulin; Z79.899 Other long term (current) drug therapy; Z88.8 Allergy status to other drugs, medicaments and biological substances; Z88.1 Allergy status to other antibiotic agents
CPT/HCPCS: 36415; 71010; 80048; 80076; 82550; 82553; 83690; 84443; 84484; 85025; 85610; 93005; 93041; 94760; 96374; 96375; 99285; J2405

== ENCOUNTER 2017-10-14 21:31 | Inpatient (IN) | payer MEDICARE ==
[~2017-10-14] VITALS: Ht 157.5 cm; Wt 83.7 kg
[2017-10-14] MEDS: traZODone 100 MG TAB PO SCH (02:56)
[~2017-10-14 21:31] MED LIST changes: +HYDR-3713; +OXYCOD/APAP
[2017-10-14] MEDS ORDERED: NORT10CA2 PO (22:00)
[2017-10-14] MEDS ORDERED: DULO1CAP2 PO (22:00)
[2017-10-14] MEDS ORDERED: CYCL10TA PO (23:17)
[2017-10-14] MEDS ORDERED: GABA-282 PO (23:17)
[2017-10-14] MEDS ORDERED: LIDO5TD TD (23:17)
[2017-10-14 23:35] LABS: MEAN CORPUSCULAR HEMOGLOBIN 29.2 pg (27.0-33.0); MEAN CORPUSCULAR HGB CONC 30.1 g/dl (32.0-36.5); PLATELET COUNT, AUTOMATED 120 10^3/uL (150-450); WHITE BLOOD COUNT 4.7 10^3/uL (4.0-10.0)
[2017-10-14 23:51] LABS: CALCIUM LEVEL 7.4 MG/DL (8.8-10.2); CREATININE FOR GFR 3.13 MG/DL (0.55-1.02); GLOMERULAR FILTRATION RATE 15.7 (>45); POTASSIUM SERUM 3.9 MEQ/L (3.5-5.1)
[2017-10-15 00:22] LABS: ALBUMIN 2.8 GM/DL (3.2-5.2)
[2017-10-15] MEDS ORDERED: traMADol 50 MG TAB PO PRN (01:00)
[2017-10-15] MEDS ORDERED: NITROGLYCERIN 0.4 MG SUBL TABLET SL PRN (01:00)
[2017-10-15] MEDS ORDERED: METOPROLOL SUCC (TopROL XL) 50MG **XL** TAB PO ONE (01:45)
[2017-10-15] MEDS ORDERED: ACETAMINOPHEN TAB 650MG DOSE (2X325MG) PO PRN (01:45)
[2017-10-15 02:45] VITALS: BP 168/78
--- NOTE | 2017-10-15 03:47 | HPEPDOC ---
General Date of Admission Oct 15, 2017 at 01:32 Primary Care Physician: Catracho Pineda MD Other Providers Online User Experience Strategist--Dr. Jose Mat Worker--Dr. Baeza Neurologist--Dr. Ybarra Folder Hand--Dr. Grullon Agronomy Specialist--Dr. Reynoso Attending Physician: MEETA ROONEY MD Chief Complaint The patient is a 66-year-old female admitted with a reason for visit of Fluid Overload. PMH is noticeable for diastolic CHF with preserved EF 75%, IDDM2, HI in 2016 S/PE for stents and on Plavix, HTN, HLD, diabetic retinopathy and neuropathy. 66-year-old female presented to the ED per recommendation of her sales service supervisor Dr. Grullon after her outpatient dialysis appointment today for complaint of bilateral lower extremity edema, 25 pound unintentional weight gain in the past few months, shortness of breath on exertion. Patient normally gets dialysis Tuesday, Tuesday, Tuesday for her ESRD, but was recommended by Dr. Grullon to start daily hemodialysis in the hospital. Patient states this is the third time this year that she has experienced these symptoms, most recently a few months ago. Patient states she is swollen up to her belly, and has been trying to restrict home fluid and salt intake. Associated with multiple skin lesions/ ulcers on lower extremities/shins since the onset of LE swelling. Patient states she also at times forgets to take her medications. In the ED, vitals were WNL aside from elevated BP of 182/73. EKG revealed NSR, LVH, old anteroseptal HI. CXR is pending. Home Medications Scheduled ([facility]) 300 Unit/Ml Inj, 85 UNITS SC BID, (Reported) Calcium Carbonate (Tums) 500 Mg Chw, 500 MG PO AC, (Reported) Cholecalciferol (Vitamin D) 2,000 Unit Tab, 2,000 UNIT PO DAILY, (Reported) Clopidogrel Bisulfate (Plavix) 75 Mg Tab, 75 MG PO DAILY, (Reported) Cyclobenzaprine HCl (Cyclobenzaprine HCl) 10 Mg Tab, 10 MG PO BID, (Reported) Duloxetine Hcl (Cymbalta) 30 Mg Cap, 30 MG PO DAILY, (Reported) Ezetimibe (Zetia) 10 Mg Tab, 10 MG PO QHS, (Reported) Gabapentin (Gabapentin) 300 Mg Cap, 300 MG PO TID, (Reported) Insulin Human Lispro (Humalog) 1 Units/0.01 Ml Inj, 0 SC ACHS, (Reported) PER SLIDING SCALE Levothyroxine Sodium (Synthroid) 100 Mcg Tab, 100 MCG PO DAILY, (Reported) Metoprolol Succinate (Toprol Xl) 50 Mg Tab, 50 MG PO BID, (Reported) Nortriptyline HCl (Nortriptyline HCl) 10 Mg Cap, 10 MG PO DAILY, (Reported) Pantoprazole Sodium (Pantoprazole Sodium) 40 Mg Tab, 40 MG PO DAILY, (Reported) Ropinirole Hydrochloride (Requip) 2 Mg Tab, 6 MG PO TID, (Reported) Simvastatin (Simvastatin) 20 Mg Tab, 20 MG PO QHS, (Reported) Torsemide (Torsemide) 100 Mg Tab, 100 MG PO BID, (Reported) TAKES DAILY ON DIALYSIS DAYS TUE, TUE, TUE Trazodone HCl (Trazodone HCl) 100 Mg Tab, 100 MG PO QHS, (Reported) Scheduled PRN Lidocaine (Lidocaine) 5 % Pad, 1 PATCH TD Q12H PRN for BACK PAIN, (Reported) Nitroglycerin (Nitroglycerin) 0.4 Mg Sub, 0.4 MG SL NITRO PRN for CHEST PAIN, ( Reported) Ondansetron HCl (Ondansetron HCl) 4 Mg Tab, 4 MG PO Q6H PRN for NAUSEA, ( Reported) Tramadol HCl (Tramadol HCl) 50 Mg Tab, 100 MG PO BID PRN for PAIN, (Reported) Allergies Coded Allergies: Pregabalin (Verified Adverse Reaction, Intermediate, CONFUSION, 03/16/17) Vancomycin (Verified Adverse Reaction, Intermediate, itching, 09/08/17) pt iv ? infitrate, co of puritis and benadryl ordered for localized topical itching and redness, cool compress no other adverse reactions noted Past Medical History Medical History CAD HTN DM 2insulin-dependent Hypothyroidism HLD Anemia from chronic renal disease Diastolic CHF, EF 75% JUAN CPAP noncompliant Restless leg syndrome Diabetic retinopathy Diabetic neuropathy ESRD, on hemodialysis Tuesday GERD Depression HI 2016 S/P 4 stents Surgical History Coronary stents 4 Left arm AV fistula Appendectomy Hysterectomy Bilateral cataracts Left foot amputation due to osteomyelitis (second and fourth digits) Social History Lives at home with and dog and cat. Ambulates with rolling walker. Tobacco: Never Alcohol: None Illicit substances: Denies Review of Symptoms Constitutional: Denies: Chills, Fever, Malaise, Night Sweats, Weakness Eyes: Denies: Pain, Vision change ENT: Denies: Ear Pain, Dysphagia Pulmonary: Reports: Dyspnea (on exertion), Denies: Cough Cardiovascular: Reports: Edema (b/l LE & abdomen), Denies: Chest Pain, Palpitations, Lt Headedness Gastrointestinal: Denies: Nausea, Vomiting, Abdominal Pain, Diarrhea, Constipation, Melena, Hematochezia Genitourinary: Reports: Other Symptoms (hesitancy), Denies: Dysuria, Hematuria Musculoskeletal: Reports: Leg Pain (b/l LE pain and pressure) Neurological: Reports: Numbness (b/l LE/feet from diabetic neuropathy), Denies: Weakness Psych: Reports: Anxiety (on meds), Depression (on meds) Physical Examination General Exam: Positive: Alert, Cooperative, No Acute Distress Eye Exam: Positive: PERRLA, Conjunctiva & lids normal, EOMI, Negative: Sclera icteric, Ptosis ENT Exam: Positive: Atraumatic, Mucous membr. moist/pink, Tongue Midline, Nares Patent, Pinna Normal Neck Exam: Positive: Supple, +2 carotid pulse wo bruit, Negative: Lymphadenopathy Chest Exam: Positive: Clear to auscultation, Normal air movement, Negative: Rales, Rhonchi, Wheezing Heart Exam: Positive: Rate Normal, Regular Rhythm, Normal S1, Normal S2 Abdomen Exam: Positive: Normal bowel sounds, Soft, Other (prtuberant), Negative: Tenderness Extremity Exam: Positive: Edema (3+ pitting edema in b/l LE & abdomen), Normal pulses, Tenderness (b/l feet & LE from peripheral neuropathy & fluid status), Negative: Clubbing, Cyanosis Skin Exam: Positive: Nl turgor and temperature, Lesion (multiple small lesions on b/l shins, a few seemed crusted and possibly oozed fluid previously) Neuro Exam: Positive: Normal Speech, Sensation Intact, Negative: Strength at 5/5 X4 ext (5/5 in UE b/l, 2/5 in LE b/l-limited due to pain) Psych Exam: Positive: Mental status NL, Mood NL, Memory Intact, Oriented x 3 Vital Signs Vital Signs Date Time Temp Pulse Resp B/P (MAP) Pulse Ox O2 Delivery O2 Flow Rate FiO2 10/14/17 23:26 16 98 Room Air 10/14/17 21:32 97.3 73 Laboratory Data Labs 24H Laboratory Tests 2 10/14/17 23:11: Nucleated Red Blood Cells % (auto) 0.4H, Anion Gap 6L, Glomerular Filtration Rate 15.7L, Blood Urea Nitrogen 21H, Creatinine 3.13H, Sodium Level 138, Potassium Level 3.9, Chloride Level 99, Carbon Dioxide Level 33H, Calcium Level 7.4L, Albumin 2.8L CBC/BMP Laboratory Tests 10/14/17 23:11 Red Blood Count 3.05 L, Mean Corpuscular Volume 97.0 H, Mean Corpuscular Hemoglobin 29.2, Mean Corpuscular Hemoglobin Concent 30.1 L, Red Cell Distribution Width 17.0 H, Calcium Level 7.4 L Assessment/Plan Volume overload 2/2 ESRD Regularly a patient of Dr. Grullon, with dialysis on M, W, F. Presented to ED due to lower extremity and abdomen edema, dyspnea on exertion, and over 25 pounds unintentional weight gain in the last few months. During dialysis session today, patient was recommended by nephrology to get admitted to hospital for daily sessions of dialysis Will continue home po torsemide Nephrology has been consulted. Appreciate their assistance Low-salt diet, 1800mL fluid restriction, strict I's and O's, daily weights ESRD, on Hemodialysis Cr on admission is ~3, after receiving HD earlier today ABG pending for metabolic disturbances Patient is hemodialyzed normally M, W, F, but may require daily dialysis per Dr. Grullon. Nephrology consulted. Hx of heart failure with preserved ejection fraction of 70% Volume is normally regulated by dialysis. She seems to be in volume overload on admission per LE edema & dyspnea on exertion. Nephrology has been consulted. Appreciate their assistance. Continue home po torsemide CAD HI in 2016, s/p stents x4 EKG on admission revealed NSR, LVH, and old anteroseptal infarct Controlled on Plavix, beta jeffrey, statin Anemia 2/2 chronic renal disease Admission H&H are 8.9 and 29.6. Patient regularly gets iron shots. Patient is clinically stable. Monitor Hypertension Continue home metoprolol Patient's initial blood pressure was 182/73 on admission, likely 2/2 pain and patient having missed doses of various medications. Home metoprolol given once in ED, which lowered blood pressure effectively IDDM2 Hold home Humalog insulin sliding scale and Toujeo. Start inpatient insulin sliding scale, fingersticks, continue home Zetia, and start with Levemir 65U sc bid in place of her home Toujeo 85U sc bid per Pharmacy's recommendation. See how patient does on this regimen, and may increase Levemir to 85U if 65 does not suffice. Hypocalcemia Corrected Ca is 8.36. Pt is regularly on Calcium Carbonate at home. Will continue Diabetic neuropathy Continue home nortriptyline, gabapentin, tramadol Restless leg syndrome Continue home ropinirole GERD Continue home Protonix Depression Stable. Continue home Cymbalta HLD Continue home simvastatin Hypothyroidism Continue home Synthroid JUAN Patient noncompliant with CPAP at home. On JUAN protocol Insomnia Continue home trazodone DVT prophylaxis KEN/SCDs, continue home Plavix Disposition: Patient will be admitted to general medical floor to Dr. Rooney's service, who will resume care for patient in the morning. Plan / VTE VTE Prophylaxis Ordered?: Yes Plan Diagnostics: Nuclear Med Study GME ATTESTATION GME ATTESTATION My faculty preceptor for this patient encounter was physically present during the encounter and was fully available. All aspects of the patient interview, examination, medical decision making process, and medical care plan development were reviewed and approved by the faculty preceptor. The faculty preceptor is aware and concurs with the plan as stated in the body of this note and will attest to such by his/her cosignature. ATTENDING NOTE have seen and examined the patient as did the the resident I have reviewed the case and discussed the plan with her I concur with her findings on HX and PE and agree with A&P with the following additions exceptions Patient admitted for daiy HD over the next few days so a 2 MN stay is expected for the patients fluid overload. I first saw the patient 10/15/2017 SHAILA LICEA DO Oct 15, 2017 02:16 PIPPA TORRES MD Oct 15, 2017 19:31
[2017-10-15] MEDS ORDERED: DEXTROSE 50% 50 ML SYRINGE IV PRN (04:45)
[2017-10-15] MEDS ORDERED: GLUCOSE 4 GM CHEW TABLET PO PRN (04:45)
[2017-10-15] MEDS ORDERED: GLUCAGON FOR INJ 1 MG VIAL (J1610) SC PRN (04:45)
[2017-10-15] MEDS: GABAPENTIN 300 MG CAP PO SCH ×3 (04:51→22:41)
[2017-10-15 05:10] VITALS: BP 138/62
[2017-10-15] MEDS: LEVOTHYROXINE 100MCG TABLET (0.1MG) PO SCH (05:42)
[2017-10-15 05:53] LABS: MEAN CORPUSCULAR HEMOGLOBIN 28.1 pg (27.0-33.0); PLATELET COUNT, AUTOMATED 117 10^3/uL (150-450); WHITE BLOOD COUNT 5.4 10^3/uL (4.0-10.0)
[2017-10-15 06:05] LABS: ABG BASE EXCESS 4.1 (-2.0-2.0); ABG HCO3 27.9 MEQ/L (22.0-26.0); ABG PARTIAL PRESSURE O2 59.5 mmHg (75.0-100.0); ABG TOTAL CO2 29.1 MEQ/L (23.0-31.0); ABG pH (ARTERIAL) 7.473 UNITS (7.350-7.450)
[2017-10-15 06:07] LABS: CALCIUM LEVEL 7.4 MG/DL (8.8-10.2); CREATININE FOR GFR 3.42 MG/DL (0.55-1.02); GLOMERULAR FILTRATION RATE 14.2 (>45); PHOSPHORUS LEVEL 3.6 MG/DL (2.5-4.9); POTASSIUM SERUM 4.2 MEQ/L (3.5-5.1)
--- NOTE | 2017-10-15 08:48 | ECGEPIP ---
Stationary ECG Study [facility] - ED Test Date: 2017-10-14 Pat Name: GUI JEAN Department: Room: - Gender: F It Systems Administrator: bree : 1950 Requested By: Teddy Patton Order Number: [id number] Reading MD: Debbie Roberts Measurements Intervals [place] Rate: 63 P: 27 WA: 171 QRS: -31 QRSD: 85 T: 62 QT: 473 QTc: 488 Interpretive Statements SINUS RHYTHM WITH OCCASIONAL VENTRICULAR PREMATURE COMPLEXES MARKED LEFT AXIS DEVIATION VOLTAGE CRITERIA FOR LVH POSSIBLE ANTEROSEPTAL MYOCARDIAL INFARCTION, OF INDETERMINATE AGE SIMILAR 09/08/17 Electronically Signed On 10-15-2017 8:46:20 EST by Debbie Roberts
[2017-10-15] MEDS: SENOKOT S TAB PO SCH ×2 (08:55→21:00)
[2017-10-15] MEDS: CLOPIDOGREL 75 MG TAB PO SCH (08:56)
[2017-10-15] MEDS: CALCIUM CARBONATE 500 MG CHEW U/D PO SCH ×3 (08:58→18:20)
[2017-10-15] MEDS: PANTOPRAZOLE 40MG TAB (PROTONIX) PO SCH (08:58)
[2017-10-15] MEDS: rOPINIRole 1MG TAB PO SCH ×3 (08:59→22:41)
[2017-10-15] MEDS: VITAMIN D 1,000 INTERNATIONAL UNITS TABLET PO SCH (09:00)
[2017-10-15] MEDS: DULoxetine 30 MG CAP (CYMBALTA) PO SCH (09:00)
[2017-10-15] MEDS: LEVEMIR (INSULIN DETEMIR) 1 UNITS/0.01ML SC SCH ×2 (09:00→21:00)
[2017-10-15] MEDS ORDERED: GABAPENTIN 300 MG CAP PO SCH (09:00)
[2017-10-15] MEDS: METOPROLOL SUCC (TopROL XL) 50MG **XL** TAB PO SCH ×2 (09:03→22:41)
[2017-10-15] MEDS: HumaLOG INSULIN (NovoLOG) PER UNIT SC SCH ×4 (09:03→21:00)
--- NOTE | 2017-10-15 09:38 | IPNPDOC ---
Subjective Date Seen The patient was seen on 10/15/17. Subjective Chief Complaint/HPI The patient is a 66-year-old female admitted with a reason for visit of Fluid Overload. Events since last encounter complains of severe bilateral lower extremity pain . Also complains of tender lesions in the legs with discharge from some of them , no sob , no chest pain , no nausea or vomiting or diarrhea, Makes very little urine now. Says has dropped significantly over the summer. Objective Physical Examination General Exam: Positive: Alert, Cooperative, No Acute Distress Eye Exam: Positive: PERRLA, Conjunctiva & lids normal, EOMI, Negative: Sclera icteric, Ptosis ENT Exam: Positive: Atraumatic, Mucous membr. moist/pink, Tongue Midline, Nares Patent, Pinna Normal Neck Exam: Positive: Supple, +2 carotid pulse wo bruit, Negative: Lymphadenopathy Chest Exam: Positive: Clear to auscultation, Normal air movement, Negative: Rales, Rhonchi, Wheezing Heart Exam: Positive: Rate Normal, Regular Rhythm, Normal S1, Normal S2 Abdomen Exam: Positive: Normal bowel sounds, Soft, Other (prtuberant), Negative: Tenderness Extremity Exam: Positive: Edema (3+ pitting edema in b/l LE & abdomen), Normal pulses, Tenderness (b/l feet & LE from peripheral neuropathy & fluid status), Negative: Clubbing, Cyanosis Skin Exam: Positive: Nl turgor and temperature, Lesion (multiple small lesions on b/l shins, a few seemed crusted and possibly oozed fluid previously) Neuro Exam: Positive: Normal Speech, Sensation Intact, Negative: Strength at 5/5 X4 ext (5/5 in UE b/l, 2/5 in LE b/l-limited due to pain) Psych Exam: Positive: Mental status NL, Mood NL, Memory Intact, Oriented x 3 Assessment /Plan Problems (1) ESRD (end stage renal disease) on dialysis Status: Chronic Problem Text: due to diabetic nephropathy has been on HD for 1 year. On MWF schedule as outpatient Has severe cramps after about 2.8 l removal (2) Fluid overload Status: Chronic Problem Text: , patient not complaint with fluid restrictions. now with decreased urine output she has been having recurrent issues with fluid overload Also has distolic chf exacerbation patient will be scheduled for daily HD while in the hospital Also on torsemide however as pateint is not making much urine at this point will have reassess if this is helpful or not. (3) Diabetes Status: Chronic Problem Text: continue levemir and lispro (4) Hypertension Status: Chronic Problem Text: continue metoprolol (5) Diabetic retinopathy Status: Chronic (6) CAD (coronary artery disease) Status: Chronic Problem Text: continue plavix (7) Pulmonary hypertension Status: Chronic (8) Diastolic CHF Status: Chronic Problem Text: with acute exacerbation increase fluid removal with HD. continue fluid restriction. (9) JUAN on CPAP Status: Chronic (10) Diabetic neuropathy Status: Chronic Problem Text: continue gabapentin , cymbalta, amitryptiline. will start percocet. will stop tramadol. (11) Hyperlipidemia Status: Chronic (12) Hx of CABG Status: Chronic (13) Hypothyroidism Status: Chronic (14) GERD (gastroesophageal reflux disease) Status: Chronic (15) Restless leg syndrome Status: Chronic Problem Text: continue requip Plan/VTE VTE Prophylaxis Ordered?: Yes Plan Diagnostics: Nuclear Med Study VS, I&O, 24H, Fishbone Vital Signs/I&O Vital Signs Date Time Temp Pulse Resp B/P (MAP) Pulse Ox O2 Delivery O2 Flow Rate FiO2 10/15/17 09:03 74 146/70 10/15/17 05:10 97.3 20 98 Room Air Laboratory Data 24H LABS Laboratory Tests 2 10/14/17 23:11: Nucleated Red Blood Cells % (auto) 0.4H, Anion Gap 6L, Glomerular Filtration Rate 15.7L, Blood Urea Nitrogen 21H, Creatinine 3.13H, Sodium Level 138, Potassium Level 3.9, Chloride Level 99, Carbon Dioxide Level 33H, Calcium Level 7.4L, Albumin 2.8L 10/15/17 05:24: Nucleated Red Blood Cells % (auto) 0.0, Anion Gap 7L, Glomerular Filtration Rate 14.2L, Blood Urea Nitrogen 28H, Creatinine 3.42H, Sodium Level 137, Potassium Level 4.2, Chloride Level 100, Carbon Dioxide Level 30, Calcium Level 7.4L, Phosphorus Level 3.6, Magnesium Level 2.0 10/15/17 05:49: Blood Gas Bicarbonate Standard 28.0H, Arterial Blood pH 7.473H, Arterial Blood Partial Pressure CO2 39.0, Arterial Blood Partial Pressure O2 59.5L, Arterial Blood Total CO2 29.1, Arterial Blood HCO3 27.9H, Arterial Blood Base Excess 4.1H , Arterial Blood Oxygen Saturation 90.9L CBC/BMP Laboratory Tests 10/14/17 23:11 Red Blood Count 3.05 L, Mean Corpuscular Volume 97.0 H, Mean Corpuscular Hemoglobin 29.2, Mean Corpuscular Hemoglobin Concent 30.1 L, Red Cell Distribution Width 17.0 H, Calcium Level 7.4 L 10/15/17 05:24 Red Blood Count 3.02 L, Mean Corpuscular Volume 97.0 H, Mean Corpuscular Hemoglobin 28.1, Mean Corpuscular Hemoglobin Concent 29.0 L, Red Cell Distribution Width 17.0 H, Calcium Level 7.4 L MEETA BARGER MD Oct 15, 2017 09:38
[2017-10-15] MEDS ORDERED: HEPARIN 1,000 UNITS/ML 10ML VIAL (FOR RADIOLOGY& DIALYSIS ONLY) IV ONE (10:30)
[2017-10-15] MEDS ORDERED: LIDOCAINE 1% SDV 5 ML VIAL SQ ONE (10:30)
[2017-10-15] MEDS ORDERED: IRON SUCROSE 100MG 5ML VIAL (J1756 PER 1MG) IV SCH (11:15)
[2017-10-15] MEDS ORDERED: DARBEPOETIN 100 MCG/0.5 ML *DIALYSIS* SYRINGE (J0882) IV SCH (11:15)
[2017-10-15 11:33] LABS: PERCENT SATURATION 30.8 % (13.2-45.0)
[2017-10-15] MEDS: TORSEMIDE 100 MG TAB PO SCH ×2 (11:51→18:24)
[2017-10-15] MEDS: NORTRIPTYLINE 10 MG CAP PO SCH (11:51)
[2017-10-15] MEDS: PERCOCET 5MG/325MG TAB PO PRN ×2 (11:52→22:43)
--- NOTE | 2017-10-15 14:57 | CR ---
DATE OF CONSULTATION: 10/15/2017 REQUESTING PHYSICIAN: Dr. Bonnie Rooney CONSULTING PHYSICIAN: Dr. Moore REASON FOR CONSULTATION: Management of end stage renal disease, hemodialysis, and fluid overload. CHIEF COMPLAINT: The patient presented to the hospital yesterday with persistently worsening lower extremity edema, abdominal wall edema, and fluid overload. HISTORY OF PRESENT ILLNESS: Dalila Hernandez is a 66-year-old female with a past medical history of end renal disease on hemodialysis every Tuesday, Tuesday and Tuesday, history of diastolic congestive heart failure (CHF), insulin-dependent diabetic, well known to nephrology service from outpatient hemodialysis and from multiple previous hospitalizations. She was dialyzed according to her regular schedule yesterday, but despite hemodialysis and ultrafiltration, the patient reported worsening lower extremity edema with severe unbearable pain, along with thigh edema and abdominal bloating as well. The patient was admitted to the hospital yesterday with fluid overload and nephrology service was called for further help in the management of fluid overload and ultrafiltration and extra hemodialysis sessions. I saw the patient this morning. She was in moderate amount of pain. The patient is chronically noncompliant with fluid restriction. The patient reports that with all the medications that she takes that she always feels thirsty and she keeps on drinking fluid and she has a lot of intra-dialytic weight gain and it is difficult to optimize her volume status. PAST MEDICAL HISTORY: The patient has a past medical history of: 1. End stage renal disease on hemodialysis every Tuesday, Tuesday and Tuesday. 2. Coronary artery disease. 3. Diastolic congestive heart failure (CHF). 4. Hypertension. 5. Diabetes mellitus type 2. 6. Hypothyroidism. 7. Anemia and end stage renal disease. 8. Restless leg syndrome. 9. Depression. PAST SURGICAL HISTORY: 1. Status post left forearm AV fistula placement. 2. Coronary artery stenting. 3. Status post appendectomy. 4. Hysterectomy. 5. Bilateral cataracts. 6. Left second and fourth toe amputations in the past. ALLERGIES: The patient is allergic to: - PREGABALIN - VANCOMYCIN FAMILY HISTORY: No significant family history of end stage renal disease requiring hemodialysis. SOCIAL HISTORY: The patient lives at home with her . She denies any smoking, illicit drug abuse or alcohol abuse. She ambulates with the help of a walker. REVIEW OF SYSTEMS: CONSTITUTIONAL: The patient denies any fever, chills, rigors. EYES: She denies any change in vision, but she does have a history of diabetic retinopathy. ENT: She denies any dysphagia, odynophagia, or ear discharge. CARDIOVASCULAR: The patient reports lower extremity edema and history of congestive heart failure (CHF). Otherwise, she denies any shortness of breath or palpitations. RESPIRATORY: The patient reports dyspnea on exertion. She denies any cough or sputum production. GASTROINTESTINAL: She denies any nausea, vomiting, abdominal pain, or diarrhea. GENITOURINARY: She denies any dysuria, hematuria. She does report hesitancy. MUSCULOSKELETAL: The patient reports bilateral lower extremity pain and swelling. CENTRAL NERVOUS SYSTEM (TRIPOLER): The patient reports peripheral neuropathy. Otherwise, she denies any strokes or seizures. PSYCHIATRIC: The patient reports history of anxiety and depression. ENDOCRINE: She is a known diabetic. HEMATOLOGIC/ONCOLOGIC: The patient has a history of anemia secondary to end stage renal disease. All other review of systems negative. PHYSICAL EXAMINATION: GENERAL: The patient is awake, alert, oriented times three. In mild painful distress. VITAL SIGNS: Temperature is 97.3 degrees Fahrenheit. Blood pressure is 138/62. Pulse is 68. Respiratory rate of 18, saturating 98% on room air. HEAD/NECK EXAM: Extraocular muscles intact. Pupils are equal, round and reactive to light. Mucous membranes are moist. Neck is supple. There is no jugular venous distention (JVD). CARDIOVASCULAR: S1, S2. Regular rate. No murmur, rub or gallop. The patient has 2+ pitting edema of the bilateral lower extremities up to the thighs. RESPIRATORY: Chest is clear to auscultation bilaterally. Bilateral equal air entry. No rales. No rhonchi. ABDOMEN: Soft, obese, positive bowel sounds with positive abdominal wall edema. MUSCULOSKELETAL: Normal range of motion. The patient has blisters on the bilateral lower extremities and 2+ edema of the bilateral lower extremities. PSYCHIATRIC: Normal mood and affect. CENTRAL NERVOUS SYSTEM (TRIPOLER): No focal neurological deficits. Power is 5/5 in all extremities. LYMPHS: No significant cervical, axillary, or inguinal lymphadenopathy. SKIN: No rashes, but she does have blisters and some ulcerations of the lower extremities because of edema. LABORATORY REVIEW: CBC showed a WBC of 5.4, hemoglobin 8.5, platelets of 117. ABG showed a pH of 7.47, PCO2 of 39, PO2 of 59, oxygen saturation is 90%. BMP showed a sodium of 137, potassium 4.2, chloride 100, bicarbonate 30, BUN 28, creatinine 3.4, calcium is 7.4, iron is 104, transferring saturation is 30.8, ferritin is 245. IMAGING: Chest x-ray done last night, official report is pending, but as read by me the patient has cardiomegaly and some pulmonary vascular congestion. CURRENT INPATIENT MEDICATIONS: The patient's medications were all reviewed by me. She is on: - Tums one tablet with meals - Plavix 75 mg daily - Aranesp 200 mcg with hemodialysis was started today - Cymbalta 30 mg daily - Zetia 10 mg at night - gabapentin 300 mg three times daily - insulin Levemir 65 units twice a day - insulin sliding scale - I started her on Venofer 100 mg IV with hemodialysis. - levothyroxine 100 mcg by mouth daily - metoprolol 50 mg by mouth twice a day - oxycodone as needed - Protonix 40 mg daily - Requip 6 mg by mouth three times a day - Zocor 20 mg at night - torsemide 100 mg by mouth on Tuesday, , Tuesday, Tuesday twice a day and on Tuesday, Tuesday, Tuesday only in the evening - Tramadol was discontinued - trazodone 100 mg at night - vitamin D 2000 units by mouth daily ASSESSMENT: 66-year-old female with a past medical history of end stage renal disease on hemodialysis every Tuesday, Tuesday and Tuesday, type 2 diabetes, hypertension, chronic diastolic congestive heart failure (CHF), admitted this time with fluid overload. PLAN: 1. Fluid overload and anasarca. The patient is chronically noncompliant with fluid restriction. She reports that she feels thirsty all the time . I am going to dialyze her with sodium of 138. Ultrafiltration goal will be around 2.5 liters as tolerated by her blood pressure and fluid restriction will be 1800 mL by mouth daily. 2. End stage renal disease on hemodialysis. The patient's regular dialysis days are Tuesday, Tuesday, Tuesday. She got dialyzed according to her regular schedule yesterday. Today, ultrafiltration will be done. Because of the long weekend and holiday schedule next week Tuesday, Tuesday and Tuesday, the patient will be dialyzed on Tuesday so she will get her dialysis session tomorrow as well. 3. Decompensated diastolic congestive heart failure (CHF). The patient has anasarca. Fluid is all the way up to her thighs and abdomen. Continue fluid restriction. Continue torsemide 100 mg by mouth twice a day on non dialysis days and 100 mg by mouth daily on dialysis days. Continue fluid restriction and further fluid management will be done with extra ultrafiltration sessions. 4. Hypertension. Blood pressure is acceptable at this time. Continue home dose of metoprolol. 5. Anemia secondary to end stage renal disease. The patient has been started on Aranesp 200 mcg with hemodialysis, and I am also going to give her Venofer 100 mg IV times five doses. Hemoglobin level is suboptimal at this time. 6. Insulin-dependent diabetes mellitus. Continue insulin sliding scale and Toujeo. The rest of the management is as per primary team. 7. Depression. Continue home dose of Cymbalta. 8. Restless leg syndrome. Continue current dose of Requip. 9. Hypocalcemia. Continue current dose of Tums with meals. Part of hypocalcemia is secondary to hypoalbuminemia. 10. Peripheral neuropathy. Gabapentin dose has been decreased to 300 mg by mouth twice a day because of renal failure. Thank you for involving us in the care of this patient, we shall be happy to follow the patient along with you tomorrow morning. The patient was seen and examined during work rounds this morning and she was seen again during hemodialysis session.
--- NOTE | 2017-10-15 14:58 | REP ---
CHEST, SINGLE VIEW: Single portable view of the chest is performed and compared to a prior study of 09/08/2017. There is cardiomegaly. Increased interstitial markings are unchanged. No new infiltrates are seen. There is mild calcification of the thoracic aorta. The mediastinal silhouette is unchanged. IMPRESSION: Stable exam. Signed by Aureliano Rivas MD 10/15/2017 04:18 P
[2017-10-15 22:00] VITALS: BP 138/58
[2017-10-15] MEDS: traZODone 100 MG TAB PO SCH (22:40)
[2017-10-15] MEDS: SIMVASTATIN 20 MG TAB PO SCH (22:41)
[2017-10-15] MEDS: EZETIMIBE 10 MG TAB (ZETIA) PO SCH (22:43)
[2017-10-16 06:00] VITALS: BP 140/64
[2017-10-16] MEDS: CLOPIDOGREL 75 MG TAB PO SCH (06:37)
[2017-10-16] MEDS: NORTRIPTYLINE 10 MG CAP PO SCH (06:37)
[2017-10-16] MEDS: DULoxetine 30 MG CAP (CYMBALTA) PO SCH (06:37)
[2017-10-16] MEDS: VITAMIN D 1,000 INTERNATIONAL UNITS TABLET PO SCH (06:38)
[2017-10-16] MEDS: LEVOTHYROXINE 100MCG TABLET (0.1MG) PO SCH (06:38)
[2017-10-16] MEDS: GABAPENTIN 300 MG CAP PO SCH ×2 (06:38→20:33)
[2017-10-16] MEDS: CALCIUM CARBONATE 500 MG CHEW U/D PO SCH ×3 (06:38→17:15)
[2017-10-16] MEDS: METOPROLOL SUCC (TopROL XL) 50MG **XL** TAB PO SCH ×2 (06:38→20:33)
[2017-10-16] MEDS: SENOKOT S TAB PO SCH ×2 (06:39→20:33)
[2017-10-16] MEDS: TORSEMIDE 100 MG TAB PO SCH ×2 (06:39→17:16)
[2017-10-16] MEDS: PANTOPRAZOLE 40MG TAB (PROTONIX) PO SCH (06:39)
[2017-10-16] MEDS: rOPINIRole 1MG TAB PO SCH ×3 (06:41→20:31)
[2017-10-16 06:55] LABS: MEAN CORPUSCULAR HEMOGLOBIN 28.5 pg (27.0-33.0); MEAN CORPUSCULAR HGB CONC 28.6 g/dl (32.0-36.5); MEAN CORPUSCULAR VOLUME 99.7 fl (80.0-96.0); PLATELET COUNT, AUTOMATED 138 10^3/uL (150-450); RED CELL DISTRIBUTION WIDTH 17.2 % (11.5-14.5); WHITE BLOOD COUNT 5.8 10^3/uL (4.0-10.0)
[2017-10-16 07:15] LABS: CALCIUM LEVEL 7.7 MG/DL (8.8-10.2); CREATININE FOR GFR 5.02 MG/DL (0.55-1.02); GLOMERULAR FILTRATION RATE 9.1 (>45); MAGNESIUM LEVEL 2.2 MG/DL (1.8-2.4); POTASSIUM SERUM 4.3 MEQ/L (3.5-5.1)
[2017-10-16 07:35] LABS: PHOSPHORUS LEVEL 5.6 MG/DL (2.5-4.9)
[2017-10-16] MEDS: LEVEMIR (INSULIN DETEMIR) 1 UNITS/0.01ML SC SCH ×2 (08:45→20:33)
[2017-10-16] MEDS: HumaLOG INSULIN (NovoLOG) PER UNIT SC SCH ×4 (08:45→20:25)
--- NOTE | 2017-10-16 11:02 | IPNPDOC ---
Subjective Date Seen The patient was seen on 10/16/17. Subjective Chief Complaint/HPI The patient is a 66-year-old female admitted with a reason for visit of Fluid Overload. Events since last encounter Leg pain an little bettr, no leg cramps, no sob , no chest pain , no abdominal pain . will be going for HD again today. Objective Physical Examination General Exam: Positive: Alert, Cooperative, No Acute Distress Eye Exam: Positive: PERRLA, Conjunctiva & lids normal, EOMI, Negative: Sclera icteric, Ptosis ENT Exam: Positive: Atraumatic, Mucous membr. moist/pink, Tongue Midline, Nares Patent, Pinna Normal Neck Exam: Positive: Supple, +2 carotid pulse wo bruit, Negative: Lymphadenopathy Chest Exam: Positive: Clear to auscultation, Normal air movement, Negative: Rales, Rhonchi, Wheezing Heart Exam: Positive: Rate Normal, Regular Rhythm, Normal S1, Normal S2 Abdomen Exam: Positive: Normal bowel sounds, Soft, Other (prtuberant), Negative: Tenderness Extremity Exam: Positive: Edema (3+ pitting edema in b/l LE & abdomen), Normal pulses, Tenderness (b/l feet & LE from peripheral neuropathy & fluid status), Negative: Clubbing, Cyanosis Skin Exam: Positive: Nl turgor and temperature, Lesion (multiple small lesions on b/l shins, a few seemed crusted and possibly oozed fluid previously) Neuro Exam: Positive: Normal Speech, Sensation Intact, Negative: Strength at 5/5 X4 ext (5/5 in UE b/l, 2/5 in LE b/l-limited due to pain) Psych Exam: Positive: Mental status NL, Mood NL, Memory Intact, Oriented x 3 Assessment /Plan Problems (1) ESRD (end stage renal disease) on dialysis Status: Chronic Problem Text: due to diabetic nephropathy has been on HD for 1 year. On MWF schedule as outpatient Has severe cramps after about 2.8 l removal (2) Fluid overload Status: Chronic Problem Text: , patient not complaint with fluid restrictions. now with decreased urine output she has been having recurrent issues with fluid overload Also has distolic chf exacerbation patient will be scheduled for daily HD while in the hospital Also on torsemide however as pateint is not making much urine at this point will have reassess if this is helpful or not. (3) Diabetes Status: Chronic Problem Text: continue levemir and lispro (4) Hypertension Status: Chronic Problem Text: continue metoprolol (5) Diabetic retinopathy Status: Chronic (6) CAD (coronary artery disease) Status: Chronic Problem Text: continue plavix (7) Pulmonary hypertension Status: Chronic (8) Diastolic CHF Status: Chronic Problem Text: with acute exacerbation increase fluid removal with HD. continue fluid restriction. (9) JUAN on CPAP Status: Chronic (10) Diabetic neuropathy Status: Chronic Problem Text: continue gabapentin , cymbalta will start percocet. (11) Hyperlipidemia Status: Chronic (12) Hx of CABG Status: Chronic (13) Hypothyroidism Status: Chronic (14) GERD (gastroesophageal reflux disease) Status: Chronic (15) Restless leg syndrome Status: Chronic Problem Text: continue requip Plan/VTE VTE Prophylaxis Ordered?: Yes Plan Diagnostics: Nuclear Med Study VS, I&O, 24H, Fishbone Vital Signs/I&O Vital Signs Date Time Temp Pulse Resp B/P (MAP) Pulse Ox O2 Delivery O2 Flow Rate FiO2 10/16/17 06:38 69 138/56 10/16/17 06:00 97.6 21 98 Nasal Cannula 2.0 I&O- Last 24 Hours up to 6 AM 10/17/17 06:00 Intake Total 0 ml Balance 0 ml Laboratory Data 24H LABS Laboratory Tests 2 10/15/17 11:50: Bedside Glucose (Misc Panel) 203H 10/15/17 18:11: Bedside Glucose (Misc Panel) 218H 10/16/17 05:42: Nucleated Red Blood Cells % (auto) 0.0, Anion Gap 9, Glomerular Filtration Rate 9.1L, Blood Urea Nitrogen 47#H, Creatinine 5.02H, Sodium Level 139, Potassium Level 4.3, Chloride Level 100, Carbon Dioxide Level 30, Calcium Level 7.7L, Phosphorus Level 5.6#H, Magnesium Level 2.2 CBC/BMP Laboratory Tests 10/16/17 05:42 Red Blood Count 3.30 L, Mean Corpuscular Volume 99.7 H, Mean Corpuscular Hemoglobin 28.5, Mean Corpuscular Hemoglobin Concent 28.6 L, Red Cell Distribution Width 17.2 H, Calcium Level 7.7 L MEETA BARGER MD Oct 16, 2017 11:02
[2017-10-16] MEDS: PERCOCET 5MG/325MG TAB PO PRN ×2 (12:12→20:32)
[2017-10-16] MEDS: EZETIMIBE 10 MG TAB (ZETIA) PO SCH (20:33)
[2017-10-16] MEDS: SIMVASTATIN 20 MG TAB PO SCH (20:33)
[2017-10-16] MEDS: traZODone 100 MG TAB PO SCH (20:34)
--- NOTE | 2017-10-16 20:58 | IPN ---
DATE: 10/16/2017 SUBJECTIVE: Patient was seen and examined at the bedside today morning. Patient tolerated the ultrafiltration well yesterday. Patient still reports bilateral lower extremity edema. She is otherwise hemodynamically stable. REVIEW OF SYSTEMS: Patient denies any fever, chills, rigors, headache, nausea, vomiting, chest pain, shortness of breath. She does report lower extremity edema up to thighs. Rest of review of systems is negative. OBJECTIVE: VITAL SIGNS: Temperature is 97.6 degrees Fahrenheit, blood pressure is 140/64, pulse is 65, respiratory rate of 17, saturating 98% on nasal cannula at 2 liters. Intake and output: Urine output recorded is 400 mL overnight, ultrafiltration with hemodialysis was 2.5 liters yesterday. Weight in the bed scale is 91.2 kg. PHYSICAL EXAMINATION: GENERAL: Patient is awake, alert, oriented times three, sitting in bed, no apparent distress. HEAD and NECK EXAM: Extraocular muscles intact. Pupils equally round and reactive to light. Mucous membranes are moist. Neck is supple, there is no jugular venous distention (JVD). CARDIOVASCULAR: S1, S2, regular rate. No murmur, rub, or gallop. Patient has 2+ edema of the bilateral lower extremities up to thighs and she has some blisters in the lower extremities as well. RESPIRATORY: Chest is clear to auscultation bilaterally. Bilateral equal air entry. No rales or rhonchi. ABDOMEN: Soft, obese. Positive bowel sounds. Mild amount of abdominal wall edema. MUSCULOSKELETAL: Normal range of movement. Edema of the lower extremities. Otherwise no clubbing or cyanosis. CENTRAL NERVOUS SYSTEM: No focal neurological deficit. Power is 5/5 in all extremities. PSYCHIATRIC: Normal mood and affect. LABORATORY REVIEW: CBC showed WBC 5.8, hemoglobin 9.4, platelets of 138. BMP showed sodium 139, potassium 4.3, chloride 100, bicarbonate 30, BUN 47, creatinine 5, calcium 7.7, phosphorous 5.6. CURRENT INPATIENT MEDICATIONS: Patient's medications were all reviewed by me. There is no change in the medications today as compared with yesterday. ASSESSMENT: 66-year-old female with past medical history of end-stage renal disease on hemodialysis every Tuesday, Tuesday, Tuesday, diabetes mellitus type 2, hypertension, chronic diastolic congestive heart failure, admitted at this time with fluid overload. PLAN: 1. Fluid overload and anasarca. Patient got ultrafiltration done yesterday. I will do another session of ultrafiltration for 2 hours and remove 2 liters of fluid as tolerated by blood pressure. Continue fluid restriction 1.8 liters. 2. End-stage renal disease on hemodialysis. Patient's regular dialysis days are Tuesday, Tuesday, Tuesday. She will get ultrafiltration today and she will get another dialysis session tomorrow. 3. Decompensated diastolic congestive heart failure. Continue fluid restriction. Continue [id number] ultrafiltration and continue current dose of torsemide 100 mg twice a day on non-dialysis days and 100 mg in the evening on dialysis days. 4. Hypertension. Blood pressure is acceptable at this time. 5. Anemia secondary to end-stage renal disease. Hemoglobin is 9.4, which is optimal at this time and responding well to Venofer and Aranesp. 6. Hypocalcemia. Continue current dose of Tums with meals.
[2017-10-16 22:00] VITALS: BP 140/60
[2017-10-17] MEDS: rOPINIRole 1MG TAB PO SCH ×3 (05:56→20:50)
[2017-10-17] MEDS: VITAMIN D 1,000 INTERNATIONAL UNITS TABLET PO SCH (05:57)
[2017-10-17] MEDS: LEVOTHYROXINE 100MCG TABLET (0.1MG) PO SCH (05:57)
[2017-10-17] MEDS: PANTOPRAZOLE 40MG TAB (PROTONIX) PO SCH (05:57)
[2017-10-17] MEDS: SENOKOT S TAB PO SCH ×2 (05:57→20:51)
[2017-10-17] MEDS: GABAPENTIN 300 MG CAP PO SCH ×2 (05:57→20:51)
[2017-10-17] MEDS: METOPROLOL SUCC (TopROL XL) 50MG **XL** TAB PO SCH ×2 (05:57→20:51)
[2017-10-17] MEDS: DULoxetine 30 MG CAP (CYMBALTA) PO SCH (05:58)
[2017-10-17] MEDS: CLOPIDOGREL 75 MG TAB PO SCH (05:58)
[2017-10-17 06:00] VITALS: BP 159/74
--- NOTE | 2017-10-17 07:52 | ECHO ---
DATE OF PROCEDURE: 10/15/2017 REFERRING PHYSICIAN: Dr. Bonnie Rooney. INDICATION: End-stage renal disease, coronary artery disease, diastolic congestive heart failure. The patient measures 62 inches and weighs 200 pounds. DIMENSIONS: IVS - 1.4 LV - 4.3 LVPW - 1.5 LA - 4.6 Aorta - 3.4 RV - 3.2 IVC - 1.9 Mitral E velocity -139 cm/s, A velocity -153 cm/s E prime septal 4.9 cm/s A prime lateral 5.8 cm/s FINDINGS: The study is of acceptable technical quality. Left ventricle is of normal size and hyperdynamic contractility, estimated LVEF approximately 65-70%. Moderate left ventricular hypertrophy is noted. Right ventricle does not appear dilated. Left atrium is at least moderately enlarged. Right atrium was poorly visualized but grossly appears normal. Aortic valve is sclerotic but it has three cusps and relatively preserved mobility. There are prominent mitral annular calcifications at the bases of both mitral leaflets but mobility seems preserved. Tricuspid valve is normal. Pulmonic valve was not well seen. Small non-compressive pericardial effusion is noted. Inferior vena cava is normal size and appropriately collapses with respiration indicative of likely normal central venous pressure. Aortic root appears normal. Aortic arch also appears normal. Abdominal aorta was not well visualized. Doppler interrogation reveals no aortic stenosis or insufficiency. There is mild mitral insufficiency and mild tricuspid insufficiency. Calculated pulmonary artery pressure is in low 30s corresponding to mild pulmonary hypertension. Mitral inflow pattern and tissue Doppler imaging of mitral annulus reveal grade 1 diastolic dysfunction. CONCLUSION: 1. Study is of acceptable technical quality. 2. Normal LV size with moderate LVH and preserved LV systolic function. Grade 1 diastolic dysfunction. 3. No hemodynamically significant valvular disease. 4. Likely normal central venous pressure and mild pulmonary hypertension. 5. Small non-compressive pericardial effusion. COMMENT: SBE prophylaxis is not recommended. MTDD
[2017-10-17] MEDS: HumaLOG INSULIN (NovoLOG) PER UNIT SC SCH ×4 (07:54→20:49)
[2017-10-17] MEDS: CALCIUM CARBONATE 500 MG CHEW U/D PO SCH ×3 (07:55→16:52)
[2017-10-17] MEDS: LEVEMIR (INSULIN DETEMIR) 1 UNITS/0.01ML SC SCH ×2 (07:55→20:50)
[2017-10-17] MEDS ORDERED: HEPARIN 1,000 UNITS/ML 10ML VIAL (FOR RADIOLOGY& DIALYSIS ONLY) IV ONE (10:00)
[2017-10-17] MEDS ORDERED: LIDOCAINE 1% SDV 5 ML VIAL SQ ONE (10:00)
--- NOTE | 2017-10-17 11:01 | IPNPDOC ---
Subjective Date Seen The patient was seen on 10/17/17. Subjective Chief Complaint/HPI The patient is a 66-year-old female admitted with a reason for visit of Fluid Overload. Events since last encounter says feeling much better, leg pain well controlled with percocet. no fever or chills, no chest pain or sob , supposed to use CPAP at home not complaint with it. Her oxygen saturations drop when she is asleep so put on 2 liter oxygen during sleep and naps. Objective Physical Examination General Exam: Positive: Alert, Cooperative, No Acute Distress Eye Exam: Positive: PERRLA, Conjunctiva & lids normal, EOMI, Negative: Sclera icteric, Ptosis ENT Exam: Positive: Atraumatic, Mucous membr. moist/pink, Tongue Midline, Nares Patent, Pinna Normal Neck Exam: Positive: Supple, +2 carotid pulse wo bruit, Negative: Lymphadenopathy Chest Exam: Positive: Clear to auscultation, Normal air movement, Negative: Rales, Rhonchi, Wheezing Heart Exam: Positive: Rate Normal, Regular Rhythm, Normal S1, Normal S2 Abdomen Exam: Positive: Normal bowel sounds, Soft, Other (prtuberant), Negative: Tenderness Extremity Exam: Positive: Edema (3+ pitting edema in b/l LE & abdomen), Normal pulses, Tenderness (b/l feet & LE from peripheral neuropathy & fluid status), Negative: Clubbing, Cyanosis Skin Exam: Positive: Nl turgor and temperature, Lesion (multiple small lesions on b/l shins, a few seemed crusted and possibly oozed fluid previously) Neuro Exam: Positive: Normal Speech, Sensation Intact, Negative: Strength at 5/5 X4 ext (5/5 in UE b/l, 2/5 in LE b/l-limited due to pain) Psych Exam: Positive: Mental status NL, Mood NL, Memory Intact, Oriented x 3 Assessment /Plan Problems (1) ESRD (end stage renal disease) on dialysis Status: Chronic Problem Text: due to diabetic nephropathy has been on HD for 1 year. On MWF schedule as outpatient Has severe cramps after about 2.8 l removal (2) Fluid overload Status: Chronic Problem Text: , patient not complaint with fluid restrictions. now with decreased urine output she has been having recurrent issues with fluid overload Also has distolic chf exacerbation patient will be scheduled for daily HD while in the hospital Also on torsemide however as pateint is not making much urine at this point will have reassess if this is helpful or not. (3) Diabetes Status: Chronic Problem Text: continue levemir and lispro (4) Hypertension Status: Chronic Problem Text: continue metoprolol (5) Diabetic retinopathy Status: Chronic (6) CAD (coronary artery disease) Status: Chronic Problem Text: continue plavix (7) Pulmonary hypertension Status: Chronic (8) Diastolic CHF Status: Chronic Problem Text: with acute exacerbation increase fluid removal with HD. continue fluid restriction. (9) JUAN on CPAP Status: Chronic Problem Text: Not complaint with CPAP. did not bring machine here. so put on oxygen supplementation at night and during naps. will continue with JUAN monitoring. (10) Diabetic neuropathy Status: Chronic Problem Text: continue gabapentin , cymbalta and percocet. pain better controlled. (11) Hyperlipidemia Status: Chronic (12) Hx of CABG Status: Chronic (13) Hypothyroidism Status: Chronic (14) GERD (gastroesophageal reflux disease) Status: Chronic (15) Restless leg syndrome Status: Chronic Problem Text: continue requip Plan/VTE VTE Prophylaxis Ordered?: Yes Plan Diagnostics: Nuclear Med Study VS, I&O, 24H, Fishbone Vital Signs/I&O Vital Signs Date Time Temp Pulse Resp B/P (MAP) Pulse Ox O2 Delivery O2 Flow Rate FiO2 10/17/17 06:00 97.3 60 19 159/74 (102) 99 Nasal Cannula 2.0 Laboratory Data 24H LABS Laboratory Tests 2 10/16/17 11:32: Bedside Glucose (Misc Panel) 186H 10/16/17 16:28: Bedside Glucose (Misc Panel) 240H 10/16/17 20:21: Bedside Glucose (Misc Panel) 206H 10/17/17 07:37: Bedside Glucose (Misc Panel) 235H MEETA BARGER MD Oct 17, 2017 11:01
[2017-10-17] MEDS: PERCOCET 5MG/325MG TAB PO PRN ×2 (11:15→19:23)
--- NOTE | 2017-10-17 11:15 | IPN ---
DATE: 10/17/2017 SUBJECTIVE: The patient was seen and examined at the bedside this morning during hemodialysis. She is tolerating the hemodialysis procedure well. She got the ultrafiltration done yesterday as well and she tolerated the procedure. REVIEW OF SYSTEMS: The patient denies any fevers, chills, rigors, chest pain, shortness of breath, pain in the abdomen, constipation or diarrhea. She reports lower extremity edema is slowly improving now. The rest of the review of systems is negative. OBJECTIVE: VITAL SIGNS: Temperature 97.3 degrees Fahrenheit, blood pressure 159/74,m pulse 60 with a respiratory rate of 19, saturating 99% on nasal cannula at 2 liters. Intake and urine output recorded as 750 mL yesterday. No urine output recorded so far today. Ultrafiltration done yesterday was 2200 mL. Weight on the bed scale is 87.2 kg. GENERAL: The patient is awake, alert oriented times three laying in bed getting hemodialysis done. HEAD/NECK: Extraocular muscles intact. Pupils equal, round, and reactive to light. Mucous membranes are moist. Neck is supple. There is no jugular venous distention. CARDIOVASCULAR: S1, S2, regular rate. No murmur, rub or gallop. The patient has 2+ edema of the bilateral lower extremities and her thighs also have edema. RESPIRATORY: Chest is clear to auscultation bilaterally. Bilaterally clear entry. No rales or rhonchi. ABDOMEN: Soft, obese, positive bowel sounds. Nontender at this time. MUSCULOSKELETAL: Normal range of movement. Edema of the extremities. Otherwise, no clubbing or cyanosis. HAZMAT TECHNICIAN: No focal neurological deficit. Power is 5/5 in all extremities. PSYCH: Normal mood and affect. SKIN: The patient has blisters on the right leg and she has a dressing in the left leg because of an ulcer. LABORATORY DATA: CBC showed a WBC of 5.8, hemoglobin 9.4, and this is from yesterday. There is no BMP available today. CURRENT INPATIENT MEDICATIONS: The patient's medications are all reviewed by me. Nortriptyline has been stopped. There is no other change in medications today as compared with yesterday. ASSESSMENT: 66-year-old female with the past medical history of endstage renal disease and hemodialysis, , diabetes mellitus type 2, hypertension, chronic diastolic heart failure admitted this time with fluid overload. PLAN: 1. Fluid overload and anasarca: The patient got [id number] ultrafiltration over the last 2 days. She is getting hemodialysis done. We shall do a fluid removal for about 3 liters as tolerated by her blood pressure. 2. Endstage renal disease on hemodialysis: The patient is regularly Tuesday, Tuesday and Tuesday. The patient is being dialyzed according to her scheduled. Ultrafiltration goal is 3 liters a tolerated. 3. Decompensated diastolic congestive heart failure: Continue fluid restriction. The patient eats a lot of ice. She was asked to stop eating ice. Continue [id number] ultrafiltration and hemodialysis sessions with ultrafiltration. Continue current dose of torsemide. 4. Hypertension: Blood pressure is acceptable at this time with diuretics and ultrafiltration. Continue current dose of metoprolol 50 mg by mouth twice a day. 5. Anemia secondary to endstage renal disease: Continue current dose of iron injections with hemodialysis and continue Aranesp 200 mcg IV with hemodialysis.
[2017-10-17 13:51] LABS: MEAN CORPUSCULAR HEMOGLOBIN 29.1 pg (27.0-33.0); MEAN CORPUSCULAR VOLUME 97.1 fl (80.0-96.0); PLATELET COUNT, AUTOMATED 145 10^3/uL (150-450); RED CELL DISTRIBUTION WIDTH 17.5 % (11.5-14.5); WHITE BLOOD COUNT 7.5 10^3/uL (4.0-10.0)
[2017-10-17 14:00] VITALS: BP 124/56
[2017-10-17 14:03] LABS: CALCIUM LEVEL 8.6 MG/DL (8.8-10.2); CREATININE FOR GFR 3.1 MG/DL (0.55-1.02); GLOMERULAR FILTRATION RATE 15.9 (>45); MAGNESIUM LEVEL 2.2 MG/DL (1.8-2.4); PHOSPHORUS LEVEL 3.1 MG/DL (2.5-4.9); POTASSIUM SERUM 4.6 MEQ/L (3.5-5.1)
[2017-10-17] MEDS: traZODone 100 MG TAB PO SCH (20:50)
[2017-10-17] MEDS: SIMVASTATIN 20 MG TAB PO SCH (20:50)
[2017-10-17] MEDS: EZETIMIBE 10 MG TAB (ZETIA) PO SCH (20:51)
[2017-10-17] MEDS ORDERED: TORSEMIDE 100 MG TAB PO SCH (21:00)
[2017-10-17 22:00] VITALS: BP 155/70
[2017-10-18] MEDS: LEVOTHYROXINE 100MCG TABLET (0.1MG) PO SCH (05:47)
[2017-10-18 06:00] VITALS: BP 159/72
[2017-10-18 06:38] LABS: MEAN CORPUSCULAR HEMOGLOBIN 28.7 pg (27.0-33.0); MEAN CORPUSCULAR HGB CONC 28.5 g/dl (32.0-36.5); MEAN CORPUSCULAR VOLUME 100.6 fl (80.0-96.0); PLATELET COUNT, AUTOMATED 131 10^3/uL (150-450); WHITE BLOOD COUNT 6.3 10^3/uL (4.0-10.0)
[2017-10-18 06:48] LABS: CALCIUM LEVEL 7.8 MG/DL (8.8-10.2); CREATININE FOR GFR 4.64 MG/DL (0.55-1.02); MAGNESIUM LEVEL 2.1 MG/DL (1.8-2.4); PHOSPHORUS LEVEL 4.5 MG/DL (2.5-4.9); POTASSIUM SERUM 4.2 MEQ/L (3.5-5.1)
[2017-10-18] MEDS: CALCIUM CARBONATE 500 MG CHEW U/D PO SCH ×3 (08:07→17:26)
[2017-10-18] MEDS: HumaLOG INSULIN (NovoLOG) PER UNIT SC SCH ×4 (08:07→21:00)
[2017-10-18] MEDS: LEVEMIR (INSULIN DETEMIR) 1 UNITS/0.01ML SC SCH ×2 (08:08→21:00)
--- NOTE | 2017-10-18 08:23 | IPNPDOC ---
Subjective Date Seen The patient was seen on 10/18/17. Subjective Chief Complaint/HPI The patient is a 66-year-old female admitted with a reason for visit of Fluid Overload. Events since last encounter no complaints this morning, her leg pain and swelling are improving , also her abdominal wall edema is improving. Patient was prescribed CPAP for JUAN however she sleeps only 3 to 4 hours at night and then also she would remove the mask in her sleep without knowing. She was not meeting the required number of hours for CPAP so she lost it. Does not have any home oxygen. Objective Physical Examination General Exam: Positive: Alert, Cooperative, No Acute Distress Eye Exam: Positive: PERRLA, Conjunctiva & lids normal, EOMI, Negative: Sclera icteric, Ptosis ENT Exam: Positive: Atraumatic, Mucous membr. moist/pink, Tongue Midline, Nares Patent, Pinna Normal Neck Exam: Positive: Supple, +2 carotid pulse wo bruit, Negative: Lymphadenopathy Chest Exam: Positive: Clear to auscultation, Normal air movement, Negative: Rales, Rhonchi, Wheezing Heart Exam: Positive: Rate Normal, Regular Rhythm, Normal S1, Normal S2 Abdomen Exam: Positive: Normal bowel sounds, Soft, Other (prtuberant), Negative: Tenderness Extremity Exam: Positive: Edema (3+ pitting edema in b/l LE & abdomen), Normal pulses, Tenderness (b/l feet & LE from peripheral neuropathy & fluid status), Negative: Clubbing, Cyanosis Skin Exam: Positive: Nl turgor and temperature, Lesion (multiple small lesions on b/l shins, a few seemed crusted and possibly oozed fluid previously) Neuro Exam: Positive: Normal Speech, Sensation Intact, Negative: Strength at 5/5 X4 ext (5/5 in UE b/l, 2/5 in LE b/l-limited due to pain) Psych Exam: Positive: Mental status NL, Mood NL, Memory Intact, Oriented x 3 Assessment /Plan Problems (1) ESRD (end stage renal disease) on dialysis Status: Chronic Problem Text: due to diabetic nephropathy has been on HD for 1 year. On MWF schedule as outpatient Has severe cramps after about 2.8 l removal (2) Fluid overload Status: Chronic Problem Text: , patient not complaint with fluid restrictions. now with decreased urine output she has been having recurrent issues with fluid overload Also has distolic chf exacerbation patient will be scheduled for daily HD while in the hospital Also on torsemide however as pateint is not making much urine at this point will have reassess if this is helpful or not. (3) Diabetes Status: Chronic Problem Text: continue levemir and lispro (4) Hypertension Status: Chronic Problem Text: continue metoprolol (5) Diabetic retinopathy Status: Chronic (6) CAD (coronary artery disease) Status: Chronic Problem Text: continue plavix (7) Pulmonary hypertension Status: Chronic Problem Text: mild (8) Diastolic CHF Status: Chronic Problem Text: with acute exacerbation increase fluid removal with HD. continue fluid restriction. (9) JUAN on CPAP Status: Chronic Problem Text: was Not complaint with CPAP so was taken away from her. here desaturating during sleep so put on oxygen supplementation at night and during naps. will continue with JUAN monitoring. (10) Diabetic neuropathy Status: Chronic Problem Text: continue gabapentin , cymbalta and percocet. pain better controlled. (11) Hyperlipidemia Status: Chronic (12) Hx of CABG Status: Chronic (13) Hypothyroidism Status: Chronic (14) GERD (gastroesophageal reflux disease) Status: Chronic (15) Restless leg syndrome Status: Chronic Problem Text: continue requip Plan/VTE VTE Prophylaxis Ordered?: Yes Plan Diagnostics: Nuclear Med Study VS, I&O, [facility] Vital Signs/I&O Vital Signs Date Time Temp Pulse Resp B/P (MAP) Pulse Ox O2 Delivery O2 Flow Rate FiO2 10/18/17 06:00 97.4 60 18 159/72 (101) 99 Nasal Cannula 2.0 Laboratory Data 24H LABS Laboratory Tests 2 10/17/17 12:51: Bedside Glucose (Misc Panel) 111 10/17/17 13:19: Nucleated Red Blood Cells % (auto) 1.7H, Anion Gap 5L, Glomerular Filtration Rate 15.9L, Blood Urea Nitrogen 25H, Creatinine 3.10H, Sodium Level 139, Potassium Level 4.6, Chloride Level 101, Carbon Dioxide Level 33H, Calcium Level 8.6L, Phosphorus Level 3.1#, Magnesium Level 2.2 10/17/17 16:19: Bedside Glucose (Misc Panel) 251H 10/17/17 19:54: Bedside Glucose (Misc Panel) 276H 10/18/17 06:02: Nucleated Red Blood Cells % (auto) 1.6H, Anion Gap 7L, Glomerular Filtration Rate 10.0L, Blood Urea Nitrogen 41#H, Creatinine 4.64H, Sodium Level 138, Potassium Level 4.2, Chloride Level 101, Carbon Dioxide Level 30, Calcium Level 7.8L, Phosphorus Level 4.5#, Magnesium Level 2.1 CBC/BMP Laboratory Tests 10/17/17 13:19 Red Blood Count 3.50 L, Mean Corpuscular Volume 97.1 H, Mean Corpuscular Hemoglobin 29.1, Mean Corpuscular Hemoglobin Concent 30.0 L, Red Cell Distribution Width 17.5 H, Calcium Level 8.6 L 10/18/17 06:02 Red Blood Count 3.17 L, Mean Corpuscular Volume 100.6 H, Mean Corpuscular Hemoglobin 28.7, Mean Corpuscular Hemoglobin Concent 28.5 L, Red Cell Distribution Width 18.0 H, Calcium Level 7.8 L MEETA BARGER MD Oct 18, 2017 08:23
[2017-10-18 09:26] VITALS: BP 126/54
[2017-10-18 09:30] VITALS: BP 126/54
[2017-10-18] MEDS: DULoxetine 30 MG CAP (CYMBALTA) PO SCH (10:36)
[2017-10-18] MEDS: GABAPENTIN 300 MG CAP PO SCH ×2 (10:37→21:27)
[2017-10-18] MEDS: CLOPIDOGREL 75 MG TAB PO SCH (10:37)
[2017-10-18] MEDS: TORSEMIDE 100 MG TAB PO SCH ×2 (10:37→17:27)
[2017-10-18] MEDS: PANTOPRAZOLE 40MG TAB (PROTONIX) PO SCH (10:38)
[2017-10-18] MEDS: rOPINIRole 1MG TAB PO SCH ×3 (10:38→21:27)
[2017-10-18] MEDS: SENOKOT S TAB PO SCH ×2 (10:38→21:27)
[2017-10-18] MEDS: METOPROLOL SUCC (TopROL XL) 50MG **XL** TAB PO SCH ×2 (10:39→21:26)
[2017-10-18] MEDS: VITAMIN D 1,000 INTERNATIONAL UNITS TABLET PO SCH (10:40)
[2017-10-18] MEDS: PERCOCET 5MG/325MG TAB PO PRN ×2 (11:50→20:20)
[2017-10-18] MEDS ORDERED: HEPARIN 1,000 UNITS/ML 10ML VIAL (FOR RADIOLOGY& DIALYSIS ONLY) IV ONE (12:45)
[2017-10-18] MEDS ORDERED: LIDOCAINE 1% SDV 5 ML VIAL SQ ONE (12:45)
--- NOTE | 2017-10-18 13:31 | IPN ---
DATE: 10/18/2017 SUBJECTIVE: The patient was seen and examined at the bedside this morning. The patient reports that her leg edema is improving. She is currently getting back to back ultrafiltration sessions. The patient is otherwise hemodynamically stable. REVIEW OF SYSTEMS: The patient denies any fevers, chills, rigors, headache, nausea, vomiting, chest pain, shortness of breath. She does report lower extremity edema is gradually improving with back to back ultrafiltration sessions. He rest of the review of systems is negative. OBJECTIVE: VITAL SIGNS: Temperature 96.8 degrees Fahrenheit, blood pressure 126/54, pulse 65 with a respiratory rate of 18, saturating 95% on room air. Intake and output: Ultrafiltration session was done yesterday and 3 liters of fluid was removed. Weight on the bed scale is 90.5 kg. GENERAL: The patient is awake, alert, oriented times three, sitting in bed and no apparent distress. HEAD/NECK EXAM: Extraocular muscles intact. Pupils equal, round, and reactive to light. Mucous membranes are moist. Neck is supple. There is no jugular venous distention. CARDIOVASCULAR: S1, S2, regular rate. No murmur, rub or gallop. The patient has 1+ edema of the bilateral lower extremities, edema in the thighs getting better. RESPIRATORY: Chest is clear to auscultation bilaterally. Bilateral equal air entry. No rales or rhonchi. ABDOMEN: Soft, obese, positive bowel sounds. Nontender. Minimal abdominal wall edema. MUSCULOSKELETAL: Normal range of movement. Edema of the extremities as mentioned above. Otherwise, no clubbing or cyanosis. CENTRAL NERVOUS SYSTEM (VENEER JOINTER HELPER): No focal neurological deficit. Power is 5/5 in all extremities. PSYCHIATRIC: Normal mood and affect. SKIN: The patient has blisters on the right leg, which are improving, and she has a dressing on the left leg because of an ulcer. LABORATORY DATA: CBC showed a WBC of 6.3, hemoglobin 9.1, and platelets of 131. BMP showed a sodium of 138, potassium 4.2, chloride 101, bicarbonate 30, BUN is 41, creatinine is 4.6. CURRENT INPATIENT MEDICATIONS: The patient's medications are all reviewed by me. There is no other change in medications today as compared with yesterday. ASSESSMENT: 66-year-old female with a past medical history of endstage renal disease and hemodialysis, diabetes mellitus type 2, hypertension, chronic diastolic heart failure, chronic noncompliance with fluid restriction, admitted this time because of lower extremity edema and fluid overload. PLAN: 1. Fluid overload and anasarca. The patient is getting [id number]-[id number] hemodialysis and ultrafiltration. She will get another session of hemodialysis today in the afternoon and we will try to remove another 3 liters of fluid. Continue fluid restriction of 1800 mL. The patient should not get any ice cups, the patient keeps on eating ice all day. 2. Endstage renal disease on hemodialysis. The patient's regular dialysis days are Tuesday, Tuesday and Tuesday. Because of the holiday schedule, she will get dialysis done today. 3. Anemia secondary to endstage renal disease. Continue Aranesp 100 mcg IV with hemodialysis. Continue IV iron with hemodialysis. DISPOSITION: The patient will be dialyzed today in the afternoon and hopefully she will be discharged in the next 24 hours.
[2017-10-18 17:00] VITALS: BP 152/60
[2017-10-18] MEDS: EZETIMIBE 10 MG TAB (ZETIA) PO SCH (21:27)
[2017-10-18] MEDS: SIMVASTATIN 20 MG TAB PO SCH (21:27)
[2017-10-18] MEDS: traZODone 100 MG TAB PO SCH (21:28)
[2017-10-18 22:00] VITALS: BP 164/78
[2017-10-19] MEDS: LEVOTHYROXINE 100MCG TABLET (0.1MG) PO SCH (05:37)
[2017-10-19] MEDS: PERCOCET 5MG/325MG TAB PO PRN (05:38)
[2017-10-19 06:00] VITALS: BP 167/85
[2017-10-19 06:22] LABS: MEAN CORPUSCULAR HEMOGLOBIN 29.5 pg (27.0-33.0); MEAN CORPUSCULAR HGB CONC 29.7 g/dl (32.0-36.5); MEAN CORPUSCULAR VOLUME 99.1 fl (80.0-96.0); PLATELET COUNT, AUTOMATED 142 10^3/uL (150-450); RED CELL DISTRIBUTION WIDTH 18.4 % (11.5-14.5); WHITE BLOOD COUNT 7.1 10^3/uL (4.0-10.0)
[2017-10-19 06:34] LABS: CALCIUM LEVEL 8.4 MG/DL (8.8-10.2); CREATININE FOR GFR 4.05 MG/DL (0.55-1.02); GLOMERULAR FILTRATION RATE 11.7 (>45); MAGNESIUM LEVEL 2.1 MG/DL (1.8-2.4); PHOSPHORUS LEVEL 3.5 MG/DL (2.5-4.9); POTASSIUM SERUM 4.1 MEQ/L (3.5-5.1)
[2017-10-19] MEDS ORDERED: PERCOCET PO (07:30)
[2017-10-19] MEDS ORDERED: GABA-282 PO (07:30)
[2017-10-19] MEDS: HumaLOG INSULIN (NovoLOG) PER UNIT SC SCH (08:14)
[2017-10-19] MEDS: CALCIUM CARBONATE 500 MG CHEW U/D PO SCH (08:14)
[2017-10-19 08:15] VITALS: BP 167/85
[2017-10-19] MEDS: rOPINIRole 1MG TAB PO SCH (08:15)
[2017-10-19] MEDS: CLOPIDOGREL 75 MG TAB PO SCH (08:15)
[2017-10-19] MEDS: PANTOPRAZOLE 40MG TAB (PROTONIX) PO SCH (08:15)
[2017-10-19] MEDS: DULoxetine 30 MG CAP (CYMBALTA) PO SCH (08:15)
[2017-10-19] MEDS: VITAMIN D 1,000 INTERNATIONAL UNITS TABLET PO SCH (08:15)
[2017-10-19] MEDS: GABAPENTIN 300 MG CAP PO SCH (08:15)
[2017-10-19] MEDS: SENOKOT S TAB PO SCH (08:15)
[2017-10-19] MEDS: METOPROLOL SUCC (TopROL XL) 50MG **XL** TAB PO SCH (08:15)
[2017-10-19] MEDS: LEVEMIR (INSULIN DETEMIR) 1 UNITS/0.01ML SC SCH (08:16)
--- NOTE | 2017-10-20 07:03 | DSES ---
DATE OF ADMISSION: 10/15/2017 DATE OF DISCHARGE: 10/19/2017 PRIMARY CARE PROVIDER: Dr. Catracho Pineda. DOPE AND FABRIC WORKER: Dr. Grullon. FINANCIAL ADMINISTRATIVE ASSISTANT: Dr. Jose. DISCHARGE DIAGNOSES: 1. End-stage renal disease (ESRD) with fluid overload. 2. Acute on chronic diastolic congestive heart failure. 3. Diabetes. 4. Hypertension. 5. Diabetic retinopathy. 6. Coronary artery disease. 7. Pulmonary hypertension. 8. Obstructive sleep apnea (JUAN). 9. Diabetic neuropathy. 10. Hyperlipidemia. 11. Gastroesophageal reflux disease (GERD). 12. Hypothyroidism. 13. Restless leg syndrome. 14. Chronic bilateral venous stasis with lymphedema and stasis changes. 15. Chronic leg pains. 16. History of coronary artery bypass graft (CABG). 17. Anemia of chronic disease. DISCHARGE MEDICATIONS: - gabapentin 300 mg by mouth twice a day - oxycodone acetaminophen 1-2 tablets by mouth every two hours as needed for pain - calcium carbonate 500 mg by mouth before meals - cholecalciferol 2000 units by mouth daily - clopidogrel 75 mg by mouth daily - cyclobenzaprine 10 mg by mouth twice a day - Cymbalta 30 mg by mouth daily - Zetia 10 mg at bedtime - Synthroid 100 mcg by mouth daily - Lispro insulin before meals and at bedtime as per sliding scale - lidocaine patch one patch as needed back pain - metoprolol succinate 50 mg by mouth twice a day - nitroglycerin 0.4 mg sublingual as needed for chest pain - Zofran 4 mg by mouth every six hours as needed for nausea - pantoprazole 40 mg by mouth daily - ropinirole 6 mg by mouth three times a day - simvastatin 20 mg by mouth at bedtime - torsemide 100 mg by mouth twice a day - Toujeo insulin 85 units twice a day - trazodone 100 mg at bedtime HOSPITAL COURSE: This is a 66-year-old female with end-stage renal disease on hemodialysis, chronic diastolic congestive heart failure, noncompliant with her fluid restriction, who presented to the hospital with fluid overload. The patient was sent in by her business professor from the dialysis center because of massive bilateral lower extremity edema reaching up to the lower abdomen with lymphedematous changes. The patient had been trying to remove excess fluids during dialysis sessions; however, has been unable to remove as much as required because the patient would have severe leg cramps. The patient was having severe bilateral leg pains because of swelling and edema. She was admitted to the hospital for fluid overload and optimization of fluid status. The patient was started on hemodialysis in the hospital. The patient got daily hemodialysis for five sessions with cumulative negative balance over 10,000 mL. The patient did lose about 5 kg of body weight. The patient's abdominal parietal edema has improved. Also the edema on the thighs has improved. The leg edema is improving, though still has quite a bit a fluid at present. The patient's pain was controlled with Percocet. At present, the patient does not have any complaints. Vitals are stable. Functionally the patient is at baseline, so is going to be discharged home. PHYSICAL EXAMINATION: VITAL SIGNS: Temperature 97.1, pulse 74, respiratory rate 16, blood pressure 167/85, pulse oximetry 94% on room air. GENERAL: Patient awake, alert, and oriented times three, sitting up in bed in no acute distress. HEENT: Normocephalic, atraumatic. Moist mucous membranes. Anicteric eyes. CHEST: Clear to auscultation. CARDIOVASCULAR: S1, S2 regular. No rub, murmur or gallop. ABDOMEN: Obese, soft, nontender. Bowel sounds present. Parietal edema still present. EXTREMITIES: There is bipedal edema extending up to the knees with lymphedematous changes and chronic stasis dermatitis. LABORATORY DATA: WBC 7.1, hemoglobin 9.9, platelets 142. Sodium 138, potassium 4.1, chloride 103, bicarbonate 28, BUN 34, creatinine four. Calcium 8.4, phosphorus 3.5, magnesium 2.1. DISPOSITION: Patient is discharged home in stable condition. DISCHARGE INSTRUCTIONS: Patient to followup with primary care provider in two weeks. Patient to followup with her routine hemodialysis schedule. Two-gram sodium diet, fluid restriction 1500 to 1800 mL per day. Patient should not be eating ice chips. Activities as tolerated.
== END 2017-10-19 11:00 | disposition home or self-care (01) | DRG 291 ==
LOC: M ED 21:31 → M ED INP 10-15 01:32 → M MSPAV 10-15 02:41
PROVIDERS: ADMIT Internal Medicine; ATTEND Internal Medicine Nephrology
PROC: 5A1D70Z Performance of Urinary Filtration, Intermittent, Less than 6 Hours Per Day (ICD-10-PCS; principal; 2017-10-15)
DX: I13.2 Hypertensive heart and chronic kidney disease with heart failure and with stage 5 chronic kidney disease, or end stage renal disease (principal); I50.33 Acute on chronic diastolic (congestive) heart failure; N18.6 End stage renal disease; E78.5 Hyperlipidemia, unspecified; E03.9 Hypothyroidism, unspecified; E11.40 Type 2 diabetes mellitus with diabetic neuropathy, unspecified; E11.22 Type 2 diabetes mellitus with diabetic chronic kidney disease; F32.9 Major depressive disorder, single episode, unspecified; I25.10 Atherosclerotic heart disease of native coronary artery without angina pectoris; G47.33 Obstructive sleep apnea (adult) (pediatric); E83.51 Hypocalcemia; K21.9 Gastro-esophageal reflux disease without esophagitis; D63.1 Anemia in chronic kidney disease; E11.319 Type 2 diabetes mellitus with unspecified diabetic retinopathy without macular edema; Z99.2 Dependence on renal dialysis; I25.2 Old myocardial infarction; Z79.4 Long term (current) use of insulin; Z79.02 Long term (current) use of antithrombotics/antiplatelets; Z79.899 Other long term (current) drug therapy; Z88.8 Allergy status to other drugs, medicaments and biological substances; Z88.1 Allergy status to other antibiotic agents; Z99.89 Dependence on other enabling machines and devices; Z91.19 Patient's noncompliance with other medical treatment and regimen; Z95.5 Presence of coronary angioplasty implant and graft; Z90.710 Acquired absence of both cervix and uterus; Z98.41 Cataract extraction status, right eye; Z98.42 Cataract extraction status, left eye; Z95.828 Presence of other vascular implants and grafts; Z89.422 Acquired absence of other left toe(s)

== ENCOUNTER 2017-11-11 14:55 | Emergency (ER) | payer MEDICARE ==
[~2017-11-11] VITALS: Ht 157.5 cm; Wt 91.4 kg
[~2017-11-11 14:55] MED LIST changes: +CYCL10TA PO; +DULO1CAP2 PO; +LIDO5TD TD; +NORT10CA2 PO; +PERCOCET PO
[2017-11-11 16:21] VITALS: BP 153/75
--- NOTE | 2017-11-11 18:15 | ECGEPIP ---
Stationary ECG Study [facility] - ED Test Date: 2017-11-11 Pat Name: GUI JEAN Department: Room: - Gender: F Shop Helper: : [id number] Requested By: Teddy Patton Order Number: [id number] Reading MD: Debbie Roberts Measurements Intervals [place] Rate: 60 P: 25 TX: 188 QRS: -29 QRSD: 87 T: 41 QT: 497 QTc: 498 Interpretive Statements SINUS RHYTHM ANTEROSEPTAL MYOCARDIAL INFARCTION, OF INDETERMINATE AGE PRLONGED QTC NSTTW ABNORMALITY Electronically Signed On 11-11-2017 18:15:00 EST by Debbie Roberts
== END 2017-11-11 16:48 | disposition home or self-care (01) ==
LOC: M ED 14:55
DX: N18.6 End stage renal disease (principal); E87.79 Other fluid overload; Z91.19 Patient's noncompliance with other medical treatment and regimen; R94.31 Abnormal electrocardiogram [ECG] [EKG]; I50.9 Heart failure, unspecified; I25.10 Atherosclerotic heart disease of native coronary artery without angina pectoris; E11.9 Type 2 diabetes mellitus without complications; I10 Essential (primary) hypertension; Z99.2 Dependence on renal dialysis; Z79.4 Long term (current) use of insulin; Z79.899 Other long term (current) drug therapy; Z88.8 Allergy status to other drugs, medicaments and biological substances

== ENCOUNTER 2017-11-26 11:49 | Outpatient (CLI) | payer MEDICARE ==
[2017-11-26] MEDS: ACETAMINOPHEN 500 MG TAB PO (14:06)
[2017-11-26] MEDS: diphenhydrAMINE 25 MG CAP PO (14:06)
[2017-11-26] MEDS: PERCOCET 5MG/325MG TAB PO ×2 (14:41→20:52)
[2017-11-26 14:52] LABS: IMMEDIATE SPIN CROSSMATCH 1 2
== END 2017-11-26 23:03 | disposition home or self-care (01) ==
LOC: M INFU 11:49 → M MSPAV 11:51
DX: D64.9 Anemia, unspecified (principal); N18.6 End stage renal disease
CPT/HCPCS: 36430

== ENCOUNTER 2017-12-16 12:22 | Inpatient (IN) | payer MEDICARE ==
[2017-12-16] MEDS: traZODone 100 MG TAB PO (01:25)
[2017-12-16 13:16] LABS: BASO % 0.4 % (0.0-1.0); EOS # 0.2 10^3/uL (0.0-0.50); EOS % 3.8 % (0.0-3.0); HEMATOCRIT 34.1 % (36.0-47.0); HEMOGLOBIN 10.1 g/dl (12.0-16.0); IMMATURE GRANULOCYTE # 0.1 10^3/uL (0-0); IMMATURE GRANULOCYTE % 1.9 % (0-0); LYMPH # 0.7 10^3/uL (1.5-4.5); LYMPH % 13.7 % (24.0-44.0); MEAN CORPUSCULAR HEMOGLOBIN 27.9 pg (27.0-33.0); MEAN CORPUSCULAR HGB CONC 29.6 g/dl (32.0-36.5); MEAN CORPUSCULAR VOLUME 94.2 fl (80.0-96.0); MONO # 0.6 10^3/uL (0.0-0.8); MONO % 11.8 % (0.0-5.0); NEUTROPHILS # 3.6 10^3/uL (1.8-7.7); NEUTROPHILS % 68.4 % (36.0-66.0); PLATELET COUNT, AUTOMATED 131 10^3/uL (150-450); RED BLOOD COUNT 3.62 10^6/uL (4.00-5.40); RED CELL DISTRIBUTION WIDTH 18.9 % (11.5-14.5); WHITE BLOOD COUNT 5.3 10^3/uL (4.0-10.0)
[2017-12-16 13:27] LABS: INR 1.22; PROTHROMBIN TIME 15.6 SECONDS (12.4-14.5)
[2017-12-16 13:36] LABS: PHOSPHORUS LEVEL 6.8 MG/DL (2.5-4.9)
[2017-12-16 13:40] LABS: ALBUMIN 2.8 GM/DL (3.2-5.2); ALBUMIN/GLOBULIN RATIO 0.88 (1.00-1.93); ALKALINE PHOSPHATASE 265 U/L (45-117); ALT/SGPT 52 U/L (12-78); ANION GAP 12 MEQ/L (8-16); AST/SGOT 36 U/L (7-37); BILIRUBIN,DIRECT 0.2 MG/DL (0.0-0.2); BILIRUBIN,TOTAL 0.5 MG/DL (0.2-1.0); BLOOD UREA NITROGEN 132 MG/DL (7-18); CARBON DIOXIDE LEVEL 23 MEQ/L (21-32); CHLORIDE LEVEL 107 MEQ/L (98-107); CREATININE FOR GFR 7.16 MG/DL (0.55-1.02); GLUCOSE, FASTING 200 MG/DL (80-110); LIPASE 322 U/L (73-393); SODIUM LEVEL 142 MEQ/L (136-145)
[2017-12-16 13:42] LABS: POTASSIUM SERUM 5.3 MEQ/L (3.5-5.1)
[2017-12-16 15:07] LABS: IONIZED CALCIUM 3.5 MG/DL (4.5-5.3)
[2017-12-16] MEDS ORDERED: ONDANSETRON 4 MG TAB (S0181) PO (16:15)
[2017-12-16] MEDS ORDERED: GLUCOSE 4 GM CHEW TABLET PO (16:15)
[2017-12-16] MEDS ORDERED: ALPRAZolam 0.25 MG TAB PO (16:15)
[2017-12-16] MEDS ORDERED: GLUCAGON FOR INJ 1 MG VIAL (J1610) SC (16:15)
[2017-12-16] MEDS ORDERED: ONDANSETRON 4MG/2ML VIAL (J2405) IV (16:15)
[2017-12-16] MEDS ORDERED: DEXTROSE 50% 50 ML SYRINGE IV (16:15)
[2017-12-16 16:19] LABS: C REACTIVE PROTEIN QUANTITATIV 2.34 MG/DL (0.00-0.30)
[2017-12-16 16:47] LABS: ESTIMATED AVERAGE GLUCOSE 177 MG/DL (60-110); HEMOGLOBIN A1c 7.8 %
[2017-12-16 17:28] LABS: CPK CREATINE PHOSPHOKINASE 690 U/L (26-192); THYROXINE (T4) 5.8 UG/DL (4.5-12.0); TROPONIN I 0.02 NG/ML (< 0.10)
[2017-12-16] MEDS: HumaLOG INSULIN (NovoLOG) PER UNIT SC ×2 (17:30→20:27)
[2017-12-16 17:33] LABS: CK-MB VALUE MASS 21.4 NG/ML (0.0-3.6)
[2017-12-16] MEDS: PERCOCET 5MG/325MG TAB PO (18:20)
[2017-12-16 18:32] LABS: T UPTAKE 34 % (30-39)
[2017-12-16 18:51] LABS: BEDSIDE GLUCOSE 79 MG/DL (80-115)
[2017-12-16 18:51] LABS: BEDSIDE GLUCOSE 87 MG/DL (80-115)
[2017-12-16 20:32] LABS: BEDSIDE GLUCOSE 98 MG/DL (80-115)
[2017-12-16] MEDS: CALCIUM CARBONATE 500 MG CHEW U/D PO (20:32)
[2017-12-16] MEDS: SENOKOT S TAB PO ×2 (21:00→21:19)
[2017-12-16] MEDS: SIMVASTATIN 20 MG TAB PO (21:19)
[2017-12-16] MEDS: LEVEMIR (INSULIN DETEMIR) 1 UNITS/0.01ML SC (21:19)
[2017-12-16] MEDS: METOPROLOL SUCC (TopROL XL) 50MG **XL** TAB PO (21:19)
[2017-12-16 21:20] LABS: CK-MB VALUE MASS 17.3 NG/ML (0.0-3.6); CPK CREATINE PHOSPHOKINASE 455 U/L (26-192); TROPONIN I 0.03 NG/ML (< 0.10)
[2017-12-16] MEDS: CYCLOBENZAPRINE 10 MG TAB PO (21:20)
[2017-12-16] MEDS: EZETIMIBE 10 MG TAB (ZETIA) PO (21:20)
[2017-12-16] MEDS: GABAPENTIN 100 MG CAP PO (21:20)
[2017-12-16] MEDS: LACTOBACILLUS ACIDOPHILUS CAP (BACID) PO (21:20)
[2017-12-16] MEDS: HEPARIN SOD (PORCINE) 5000 UNITS/ML VIAL SC (21:21)
[2017-12-16] MEDS: rOPINIRole 1MG TAB PO (21:21)
[2017-12-17] MEDS: LEVOTHYROXINE 100MCG TABLET (0.1MG) PO (05:44)
[2017-12-17] MEDS: HEPARIN SOD (PORCINE) 5000 UNITS/ML VIAL SC ×3 (05:45→21:51)
[2017-12-17 06:03] LABS: HEMOGLOBIN 10.6 g/dl (12.0-16.0); MEAN CORPUSCULAR HEMOGLOBIN 27.4 pg (27.0-33.0); MEAN CORPUSCULAR HGB CONC 29.4 g/dl (32.0-36.5); PLATELET COUNT, AUTOMATED 136 10^3/uL (150-450); RED BLOOD COUNT 3.87 10^6/uL (4.00-5.40); RED CELL DISTRIBUTION WIDTH 18.6 % (11.5-14.5); WHITE BLOOD COUNT 6.5 10^3/uL (4.0-10.0)
[2017-12-17 06:28] LABS: ALBUMIN 2.5 GM/DL (3.2-5.2); ANION GAP 10 MEQ/L (8-16); BLOOD UREA NITROGEN 79 MG/DL (7-18); C REACTIVE PROTEIN QUANTITATIV 2.72 MG/DL (0.00-0.30); CALCIUM LEVEL 6.5 MG/DL (8.8-10.2); CARBON DIOXIDE LEVEL 25 MEQ/L (21-32); CHLORIDE LEVEL 107 MEQ/L (98-107); CPK CREATINE PHOSPHOKINASE 323 U/L (26-192); CREATININE FOR GFR 5.06 MG/DL (0.55-1.02); GLUCOSE, FASTING 51 MG/DL (80-110); MAGNESIUM LEVEL 1.8 MG/DL (1.8-2.4); PHOSPHORUS LEVEL 5.3 MG/DL (2.5-4.9); POTASSIUM SERUM 4.4 MEQ/L (3.5-5.1); SODIUM LEVEL 142 MEQ/L (136-145); TROPONIN I 0.03 NG/ML (< 0.10)
[2017-12-17 06:34] LABS: CK-MB VALUE MASS 13.3 NG/ML (0.0-3.6); MB/CK RELATIVE INDEX 4.11 (< OR =4)
[2017-12-17] MEDS: HumaLOG INSULIN (NovoLOG) PER UNIT SC ×4 (07:30→21:00)
[2017-12-17 08:12] LABS: BEDSIDE GLUCOSE 85 MG/DL (80-115)
[2017-12-17] MEDS: LEVEMIR (INSULIN DETEMIR) 1 UNITS/0.01ML SC ×2 (08:34→21:00)
[2017-12-17] MEDS: MIRALAX *UNIT DOSE* 17GM PACKET PO (09:00)
[2017-12-17] MEDS: rOPINIRole 1MG TAB PO ×2 (09:56→21:52)
[2017-12-17] MEDS: DULoxetine 30 MG CAP (CYMBALTA) PO (09:56)
[2017-12-17] MEDS: CYCLOBENZAPRINE 10 MG TAB PO ×2 (09:56→21:54)
[2017-12-17] MEDS: PANTOPRAZOLE 40MG TAB (PROTONIX) PO (09:56)
[2017-12-17] MEDS: GABAPENTIN 100 MG CAP PO ×2 (09:56→21:52)
[2017-12-17] MEDS: LACTOBACILLUS ACIDOPHILUS CAP (BACID) PO ×2 (09:56→21:52)
[2017-12-17] MEDS: SENOKOT S TAB PO ×2 (09:56→21:00)
[2017-12-17] MEDS: CALCIUM CARBONATE 500 MG CHEW U/D PO ×3 (09:56→18:32)
[2017-12-17] MEDS: CLOPIDOGREL 75 MG TAB PO (09:56)
[2017-12-17] MEDS: VITAMIN D 1,000 INTERNATIONAL UNITS TABLET PO (09:56)
[2017-12-17] MEDS: METOPROLOL SUCC (TopROL XL) 50MG **XL** TAB PO ×2 (09:58→21:54)
[2017-12-17 12:28] LABS: BEDSIDE GLUCOSE 160 MG/DL (80-115)
[2017-12-17] MEDS: HEPARIN 1,000 UNITS/ML 10ML VIAL (FOR RADIOLOGY& DIALYSIS ONLY) IV (15:45)
[2017-12-17] MEDS: LIDOCAINE 1% SDV 5 ML VIAL SQ (15:45)
[2017-12-17 20:32] LABS: BEDSIDE GLUCOSE 124 MG/DL (80-115)
[2017-12-17] MEDS: **NOTE PATIENT COMMENT** MISC XX (21:00)
[2017-12-17] MEDS: EZETIMIBE 10 MG TAB (ZETIA) PO (21:52)
[2017-12-17] MEDS: traZODone 100 MG TAB PO (21:54)
[2017-12-17] MEDS: SIMVASTATIN 20 MG TAB PO (21:54)
[2017-12-18] MEDS: LEVOTHYROXINE 100MCG TABLET (0.1MG) PO (05:52)
[2017-12-18] MEDS: HEPARIN SOD (PORCINE) 5000 UNITS/ML VIAL SC ×3 (05:52→21:22)
[2017-12-18 06:10] LABS: HEMATOCRIT 35.2 % (36.0-47.0); HEMOGLOBIN 10.3 g/dl (12.0-16.0); MEAN CORPUSCULAR HEMOGLOBIN 27.5 pg (27.0-33.0); MEAN CORPUSCULAR HGB CONC 29.3 g/dl (32.0-36.5); MEAN CORPUSCULAR VOLUME 93.9 fl (80.0-96.0); PLATELET COUNT, AUTOMATED 102 10^3/uL (150-450); RED BLOOD COUNT 3.75 10^6/uL (4.00-5.40); RED CELL DISTRIBUTION WIDTH 18.1 % (11.5-14.5)
[2017-12-18 06:23] LABS: ALBUMIN 2.6 GM/DL (3.2-5.2); ANION GAP 9 MEQ/L (8-16); BLOOD UREA NITROGEN 53 MG/DL (7-18); CALCIUM LEVEL 6.9 MG/DL (8.8-10.2); CARBON DIOXIDE LEVEL 25 MEQ/L (21-32); CHLORIDE LEVEL 106 MEQ/L (98-107); GLOMERULAR FILTRATION RATE 11.8 (>45); GLUCOSE, FASTING 183 MG/DL (80-110); MAGNESIUM LEVEL 2.1 MG/DL (1.8-2.4); PHOSPHORUS LEVEL 4.6 MG/DL (2.5-4.9); POTASSIUM SERUM 4.5 MEQ/L (3.5-5.1); SODIUM LEVEL 140 MEQ/L (136-145)
[2017-12-18] MEDS: SENOKOT S TAB PO ×3 (08:44→21:33)
[2017-12-18] MEDS: MIRALAX *UNIT DOSE* 17GM PACKET PO (08:44)
[2017-12-18] MEDS: CLOPIDOGREL 75 MG TAB PO (08:54)
[2017-12-18] MEDS: VITAMIN D 1,000 INTERNATIONAL UNITS TABLET PO (08:54)
[2017-12-18] MEDS: CYCLOBENZAPRINE 10 MG TAB PO ×2 (08:54→21:20)
[2017-12-18] MEDS: PANTOPRAZOLE 40MG TAB (PROTONIX) PO (08:55)
[2017-12-18] MEDS: rOPINIRole 1MG TAB PO ×2 (08:55→21:21)
[2017-12-18] MEDS: GABAPENTIN 100 MG CAP PO ×2 (08:55→21:20)
[2017-12-18] MEDS: METOPROLOL SUCC (TopROL XL) 50MG **XL** TAB PO ×2 (08:55→21:20)
[2017-12-18] MEDS: DULoxetine 30 MG CAP (CYMBALTA) PO (08:55)
[2017-12-18] MEDS: LACTOBACILLUS ACIDOPHILUS CAP (BACID) PO ×2 (08:55→21:20)
[2017-12-18] MEDS: CALCIUM CARBONATE 500 MG CHEW U/D PO ×3 (08:55→17:36)
[2017-12-18] MEDS: HumaLOG INSULIN (NovoLOG) PER UNIT SC ×4 (08:56→21:08)
[2017-12-18] MEDS: LEVEMIR (INSULIN DETEMIR) 1 UNITS/0.01ML SC ×2 (08:56→21:22)
[2017-12-18 12:14] LABS: BEDSIDE GLUCOSE 126 MG/DL (80-115)
[2017-12-18] MEDS ORDERED: DARBEPOETIN 100 MCG/0.5 ML *DIALYSIS* SYRINGE (J0882) IV (12:30)
[2017-12-18 17:02] LABS: BEDSIDE GLUCOSE 205 MG/DL (80-115)
[2017-12-18 21:04] LABS: BEDSIDE GLUCOSE 182 MG/DL (80-115)
[2017-12-18] MEDS: EZETIMIBE 10 MG TAB (ZETIA) PO (21:20)
[2017-12-18] MEDS: traZODone 100 MG TAB PO (21:20)
[2017-12-18] MEDS: **NOTE PATIENT COMMENT** MISC XX (21:21)
[2017-12-18] MEDS: SIMVASTATIN 20 MG TAB PO (21:21)
[2017-12-19] MEDS: PERCOCET 5MG/325MG TAB PO ×2 (00:11→22:38)
[2017-12-19 06:08] LABS: HEMATOCRIT 32.7 % (36.0-47.0); HEMOGLOBIN 9.4 g/dl (12.0-16.0); MEAN CORPUSCULAR HEMOGLOBIN 27.2 pg (27.0-33.0); MEAN CORPUSCULAR HGB CONC 28.7 g/dl (32.0-36.5); MEAN CORPUSCULAR VOLUME 94.8 fl (80.0-96.0); RED BLOOD COUNT 3.45 10^6/uL (4.00-5.40); RED CELL DISTRIBUTION WIDTH 18.1 % (11.5-14.5); WHITE BLOOD COUNT 3.5 10^3/uL (4.0-10.0)
[2017-12-19 06:23] LABS: PLATELET COUNT, AUTOMATED 88 10^3/uL (150-450)
[2017-12-19] MEDS: MIRALAX *UNIT DOSE* 17GM PACKET PO (06:23)
[2017-12-19 06:24] LABS: ALBUMIN 2.5 GM/DL (3.2-5.2); ANION GAP 9 MEQ/L (8-16); BLOOD UREA NITROGEN 73 MG/DL (7-18); CALCIUM LEVEL 6.6 MG/DL (8.8-10.2); CARBON DIOXIDE LEVEL 24 MEQ/L (21-32); CHLORIDE LEVEL 109 MEQ/L (98-107); CREATININE FOR GFR 5.06 MG/DL (0.55-1.02); GLUCOSE, FASTING 275 MG/DL (80-110); MAGNESIUM LEVEL 2.3 MG/DL (1.8-2.4); PHOSPHORUS LEVEL 6.1 MG/DL (2.5-4.9); POTASSIUM SERUM 4.7 MEQ/L (3.5-5.1); SODIUM LEVEL 142 MEQ/L (136-145)
[2017-12-19 06:25] LABS: IMMATURE PLATELET FRACTION % 3.3 % (0.0-9.6)
[2017-12-19] MEDS: PANTOPRAZOLE 40MG TAB (PROTONIX) PO (06:33)
[2017-12-19] MEDS: LEVOTHYROXINE 100MCG TABLET (0.1MG) PO (06:33)
[2017-12-19] MEDS: LACTOBACILLUS ACIDOPHILUS CAP (BACID) PO ×2 (06:34→21:55)
[2017-12-19] MEDS: CLOPIDOGREL 75 MG TAB PO (06:34)
[2017-12-19] MEDS: VITAMIN D 1,000 INTERNATIONAL UNITS TABLET PO (06:34)
[2017-12-19] MEDS: CYCLOBENZAPRINE 10 MG TAB PO ×2 (06:35→21:54)
[2017-12-19] MEDS: CALCIUM CARBONATE 500 MG CHEW U/D PO ×3 (06:35→18:18)
[2017-12-19] MEDS: DULoxetine 30 MG CAP (CYMBALTA) PO (06:35)
[2017-12-19] MEDS: GABAPENTIN 100 MG CAP PO ×2 (06:35→21:55)
[2017-12-19] MEDS: rOPINIRole 1MG TAB PO ×2 (06:36→21:55)
[2017-12-19] MEDS: METOPROLOL SUCC (TopROL XL) 50MG **XL** TAB PO ×2 (06:36→21:54)
[2017-12-19] MEDS: SENOKOT S TAB PO ×2 (06:37→21:55)
[2017-12-19] MEDS: EUCERIN 120GM CREAM TOP (06:37)
[2017-12-19] MEDS: LIDOCAINE 5% (LIDODERM) PATCH TD (06:38)
[2017-12-19] MEDS: HEPARIN SOD (PORCINE) 5000 UNITS/ML VIAL SC ×2 (06:50→12:26)
[2017-12-19] MEDS: LEVEMIR (INSULIN DETEMIR) 1 UNITS/0.01ML SC ×2 (06:51→21:55)
[2017-12-19] MEDS: HumaLOG INSULIN (NovoLOG) PER UNIT SC ×4 (06:51→21:38)
[2017-12-19 11:51] LABS: BEDSIDE GLUCOSE 299 MG/DL (80-115)
[2017-12-19] MEDS: LIDOCAINE 1% SDV 5 ML VIAL SQ (12:00)
[2017-12-19] MEDS: ALPRAZolam 0.25 MG TAB PO (13:16)
[2017-12-19 17:52] LABS: BEDSIDE GLUCOSE 99 MG/DL (80-115)
[2017-12-19] MEDS: traZODone 100 MG TAB PO (21:54)
[2017-12-19] MEDS: SIMVASTATIN 20 MG TAB PO (21:55)
[2017-12-19] MEDS: EZETIMIBE 10 MG TAB (ZETIA) PO (21:55)
[2017-12-19] MEDS: diphenhydrAMINE CREAM 30GM TOP (21:56)
[2017-12-19] MEDS: **NOTE PATIENT COMMENT** MISC XX (21:56)
[2017-12-19 22:09] LABS: BEDSIDE GLUCOSE 216 MG/DL (80-115)
[2017-12-20] MEDS: LEVOTHYROXINE 100MCG TABLET (0.1MG) PO (05:45)
[2017-12-20 06:36] LABS: HEMATOCRIT 31.6 % (36.0-47.0); HEMOGLOBIN 9.2 g/dl (12.0-16.0); MEAN CORPUSCULAR HEMOGLOBIN 27.3 pg (27.0-33.0); MEAN CORPUSCULAR HGB CONC 29.1 g/dl (32.0-36.5); MEAN CORPUSCULAR VOLUME 93.8 fl (80.0-96.0); RED BLOOD COUNT 3.37 10^6/uL (4.00-5.40); RED CELL DISTRIBUTION WIDTH 17.7 % (11.5-14.5)
[2017-12-20 06:37] LABS: PLATELET COUNT, AUTOMATED 93 10^3/uL (150-450)
[2017-12-20 07:03] LABS: ALBUMIN 2.3 GM/DL (3.2-5.2); ANION GAP 10 MEQ/L (8-16); BLOOD UREA NITROGEN 44 MG/DL (7-18); CARBON DIOXIDE LEVEL 27 MEQ/L (21-32); CHLORIDE LEVEL 102 MEQ/L (98-107); CREATININE FOR GFR 3.46 MG/DL (0.55-1.02); GLUCOSE, FASTING 253 MG/DL (70-100); MAGNESIUM LEVEL 2.3 MG/DL (1.8-2.4); PHOSPHORUS LEVEL 4.5 MG/DL (2.5-4.9); POTASSIUM SERUM 4.2 MEQ/L (3.5-5.1); SODIUM LEVEL 139 MEQ/L (136-145)
[2017-12-20] MEDS: CALCIUM CARBONATE 500 MG CHEW U/D PO ×3 (07:53→18:27)
[2017-12-20] MEDS: PANTOPRAZOLE 40MG TAB (PROTONIX) PO (07:54)
[2017-12-20] MEDS: GABAPENTIN 100 MG CAP PO ×2 (07:54→21:54)
[2017-12-20] MEDS: LACTOBACILLUS ACIDOPHILUS CAP (BACID) PO ×2 (07:54→21:54)
[2017-12-20] MEDS: HumaLOG INSULIN (NovoLOG) PER UNIT SC ×4 (07:54→21:57)
[2017-12-20] MEDS: VITAMIN D 1,000 INTERNATIONAL UNITS TABLET PO (07:54)
[2017-12-20] MEDS: CYCLOBENZAPRINE 10 MG TAB PO ×2 (07:55→21:55)
[2017-12-20] MEDS: SENOKOT S TAB PO ×2 (07:55→21:54)
[2017-12-20] MEDS: DULoxetine 30 MG CAP (CYMBALTA) PO (07:55)
[2017-12-20] MEDS: METOPROLOL SUCC (TopROL XL) 50MG **XL** TAB PO ×2 (07:55→21:56)
[2017-12-20] MEDS: MIRALAX *UNIT DOSE* 17GM PACKET PO (07:55)
[2017-12-20] MEDS: CLOPIDOGREL 75 MG TAB PO (07:55)
[2017-12-20] MEDS: LEVEMIR (INSULIN DETEMIR) 1 UNITS/0.01ML SC ×2 (07:56→21:58)
[2017-12-20] MEDS: rOPINIRole 1MG TAB PO ×2 (08:04→21:54)
[2017-12-20] MEDS: diphenhydrAMINE CREAM 30GM TOP (10:22)
[2017-12-20] MEDS: predniSONE 10 MG TAB PO (12:44)
[2017-12-20] MEDS: diphenhydrAMINE 25 MG CAP PO ×2 (13:01→21:54)
[2017-12-20] MEDS: ALPRAZolam 0.25 MG TAB PO (13:52)
[2017-12-20] MEDS: HEPARIN 1,000 UNITS/ML 10ML VIAL (FOR RADIOLOGY& DIALYSIS ONLY) IV (14:30)
[2017-12-20 14:52] LABS: BEDSIDE GLUCOSE 299 MG/DL (80-115)
[2017-12-20 14:58] LABS: BEDSIDE GLUCOSE 192 MG/DL (80-115)
[2017-12-20] MEDS: GABAPENTIN 300 MG CAP PO (16:06)
[2017-12-20 18:19] LABS: BEDSIDE GLUCOSE 240 MG/DL (80-115)
[2017-12-20] MEDS: **NOTE PATIENT COMMENT** MISC XX (21:00)
[2017-12-20] MEDS: SIMVASTATIN 20 MG TAB PO (21:54)
[2017-12-20] MEDS: EZETIMIBE 10 MG TAB (ZETIA) PO (21:54)
[2017-12-20] MEDS: traZODone 100 MG TAB PO (21:55)
[2017-12-20 22:03] LABS: BEDSIDE GLUCOSE 352 MG/DL (80-115)
[2017-12-21] MEDS: CYCLOBENZAPRINE 10 MG TAB PO ×2 (05:58→22:01)
[2017-12-21] MEDS: VITAMIN D 1,000 INTERNATIONAL UNITS TABLET PO (05:58)
[2017-12-21] MEDS: CLOPIDOGREL 75 MG TAB PO (05:58)
[2017-12-21] MEDS: diphenhydrAMINE 25 MG CAP PO ×3 (05:58→22:01)
[2017-12-21] MEDS: PANTOPRAZOLE 40MG TAB (PROTONIX) PO (05:59)
[2017-12-21] MEDS: GABAPENTIN 100 MG CAP PO ×2 (05:59→22:03)
[2017-12-21] MEDS: DULoxetine 30 MG CAP (CYMBALTA) PO (05:59)
[2017-12-21] MEDS: LACTOBACILLUS ACIDOPHILUS CAP (BACID) PO ×2 (05:59→22:04)
[2017-12-21] MEDS: LEVOTHYROXINE 100MCG TABLET (0.1MG) PO (05:59)
[2017-12-21] MEDS: CALCIUM CARBONATE 500 MG CHEW U/D PO ×3 (06:00→18:11)
[2017-12-21] MEDS: rOPINIRole 1MG TAB PO ×2 (06:00→22:02)
[2017-12-21] MEDS: METOPROLOL SUCC (TopROL XL) 50MG **XL** TAB PO ×2 (06:02→22:02)
[2017-12-21 06:27] LABS: HEMATOCRIT 33.2 % (36.0-47.0); HEMOGLOBIN 9.8 g/dl (12.0-16.0); MEAN CORPUSCULAR HEMOGLOBIN 27.4 pg (27.0-33.0); MEAN CORPUSCULAR HGB CONC 29.5 g/dl (32.0-36.5); MEAN CORPUSCULAR VOLUME 92.7 fl (80.0-96.0); PLATELET COUNT, AUTOMATED 81 10^3/uL (150-450); RED BLOOD COUNT 3.58 10^6/uL (4.00-5.40); RED CELL DISTRIBUTION WIDTH 17.3 % (11.5-14.5); WHITE BLOOD COUNT 6.5 10^3/uL (4.0-10.0)
[2017-12-21 06:28] LABS: IMMATURE PLATELET FRACTION % 6.6 % (0.0-9.6)
[2017-12-21 06:41] LABS: ALBUMIN 2.7 GM/DL (3.2-5.2); ANION GAP 9 MEQ/L (8-16); BLOOD UREA NITROGEN 66 MG/DL (7-18); CALCIUM LEVEL 6.7 MG/DL (8.8-10.2); CARBON DIOXIDE LEVEL 26 MEQ/L (21-32); CHLORIDE LEVEL 102 MEQ/L (98-107); CREATININE FOR GFR 4.35 MG/DL (0.55-1.02); GLOMERULAR FILTRATION RATE 10.7 (>45); GLUCOSE, FASTING 345 MG/DL (70-100); MAGNESIUM LEVEL 2.2 MG/DL (1.8-2.4); PHOSPHORUS LEVEL 4.3 MG/DL (2.5-4.9); POTASSIUM SERUM 4.5 MEQ/L (3.5-5.1); SODIUM LEVEL 137 MEQ/L (136-145)
[2017-12-21] MEDS: predniSONE 10 MG TAB PO (08:12)
[2017-12-21] MEDS: HumaLOG INSULIN (NovoLOG) PER UNIT SC ×4 (08:13→22:03)
[2017-12-21] MEDS: LEVEMIR (INSULIN DETEMIR) 1 UNITS/0.01ML SC ×2 (08:14→22:07)
[2017-12-21] MEDS: MAGNESIUM CITRATE 300 ML BTL PO (11:21)
[2017-12-21 12:02] LABS: BEDSIDE GLUCOSE 318 MG/DL (80-115)
[2017-12-21] MEDS: ALPRAZolam 0.25 MG TAB PO (12:45)
[2017-12-21] MEDS: NYSTATIN OINTMENT 15 GM TOP (12:46)
[2017-12-21 14:13] LABS: HEPARIN INDUCED PLATELET ABY 0.312 OD (0.000-0.400)
[2017-12-21 15:24] LABS: REASON FOR REVIEW PLATELET MORPHOLOGY; SLIDE REVIEW Report; SOURCE PERIPHERAL SMEAR
[2017-12-21] MEDS: KETOCONAZOLE 2% CREAM TOP ×2 (16:03→22:05)
[2017-12-21] MEDS: PERCOCET 5MG/325MG TAB PO (16:10)
[2017-12-21] MEDS: MIRALAX *UNIT DOSE* 17GM PACKET PO (16:11)
[2017-12-21] MEDS: SENOKOT S TAB PO ×2 (16:11→21:00)
[2017-12-21] MEDS: **NOTE PATIENT COMMENT** MISC XX (21:00)
[2017-12-21] MEDS: SIMVASTATIN 20 MG TAB PO (22:01)
[2017-12-21] MEDS: EZETIMIBE 10 MG TAB (ZETIA) PO (22:02)
[2017-12-21] MEDS: traZODone 100 MG TAB PO (22:04)
[2017-12-22] MEDS: diphenhydrAMINE CREAM 30GM TOP (05:45)
[2017-12-22] MEDS: LEVOTHYROXINE 100MCG TABLET (0.1MG) PO (05:45)
[2017-12-22] MEDS: diphenhydrAMINE 25 MG CAP PO (05:45)
[2017-12-22 06:21] LABS: HEMATOCRIT 33.7 % (36.0-47.0); HEMOGLOBIN 9.8 g/dl (12.0-16.0); MEAN CORPUSCULAR HEMOGLOBIN 27.1 pg (27.0-33.0); MEAN CORPUSCULAR HGB CONC 29.1 g/dl (32.0-36.5); MEAN CORPUSCULAR VOLUME 93.4 fl (80.0-96.0); RED BLOOD COUNT 3.61 10^6/uL (4.00-5.40); RED CELL DISTRIBUTION WIDTH 17.3 % (11.5-14.5)
[2017-12-22 06:25] LABS: PLATELET COUNT, AUTOMATED 87 10^3/uL (150-450)
[2017-12-22 06:46] LABS: ALBUMIN 2.7 GM/DL (3.2-5.2); ANION GAP 8 MEQ/L (8-16); BLOOD UREA NITROGEN 50 MG/DL (7-18); CALCIUM LEVEL 7.4 MG/DL (8.8-10.2); CARBON DIOXIDE LEVEL 27 MEQ/L (21-32); CHLORIDE LEVEL 102 MEQ/L (98-107); GLOMERULAR FILTRATION RATE 12.9 (>45); MAGNESIUM LEVEL 2.2 MG/DL (1.8-2.4); PHOSPHORUS LEVEL 3.9 MG/DL (2.5-4.9); POTASSIUM SERUM 4.3 MEQ/L (3.5-5.1); SODIUM LEVEL 137 MEQ/L (136-145)
[2017-12-22 06:49] LABS: GLUCOSE, FASTING 436 MG/DL (70-100)
[2017-12-22] MEDS: VITAMIN D 1,000 INTERNATIONAL UNITS TABLET PO (06:56)
[2017-12-22] MEDS: METOPROLOL SUCC (TopROL XL) 50MG **XL** TAB PO (06:56)
[2017-12-22] MEDS: DULoxetine 30 MG CAP (CYMBALTA) PO (06:57)
[2017-12-22] MEDS: LACTOBACILLUS ACIDOPHILUS CAP (BACID) PO (06:57)
[2017-12-22] MEDS: rOPINIRole 1MG TAB PO (06:57)
[2017-12-22] MEDS: GABAPENTIN 100 MG CAP PO (06:57)
[2017-12-22] MEDS: predniSONE 10 MG TAB PO (06:57)
[2017-12-22] MEDS: CLOPIDOGREL 75 MG TAB PO (06:57)
[2017-12-22] MEDS: PANTOPRAZOLE 40MG TAB (PROTONIX) PO (06:57)
[2017-12-22] MEDS: CYCLOBENZAPRINE 10 MG TAB PO (06:57)
[2017-12-22] MEDS: KETOCONAZOLE 2% CREAM TOP (06:58)
[2017-12-22] MEDS: CALCIUM CARBONATE 500 MG CHEW U/D PO (07:04)
[2017-12-22] MEDS: HumaLOG INSULIN (NovoLOG) PER UNIT SC (07:06)
[2017-12-22] MEDS: LEVEMIR (INSULIN DETEMIR) 1 UNITS/0.01ML SC (07:44)
[2017-12-22] MEDS: SENOKOT S TAB PO (08:01)
[2017-12-22] MEDS: MIRALAX *UNIT DOSE* 17GM PACKET PO (08:01)
[2017-12-22 10:57] LABS: BEDSIDE GLUCOSE 324 MG/DL (80-115)
[2017-12-22 11:22] LABS: BEDSIDE GLUCOSE 194 MG/DL (80-115)
[2017-12-22 12:15] LABS: BEDSIDE GLUCOSE 387 MG/DL (80-115)
[2017-12-22] MEDS ORDERED: LEVEMIR (INSULIN DETEMIR) 1 UNITS/0.01ML SC (21:00)
[2017-12-26 08:06] LABS: UNFRACTIONATED HEPARIN HI DOSE 4 % (0-20); UNFRACTIONATED HEPARIN LOW DOS 5 % (0-20)
== END 2017-12-22 12:32 | disposition home health service (06) | DRG 291 ==
LOC: M ED 12:22 → M ED INP 16:09 → M MSPAV 22:17
PROC: 5A1D70Z Performance of Urinary Filtration, Intermittent, Less than 6 Hours Per Day (ICD-10-PCS; principal; 2017-12-16)
DX: I13.2 Hypertensive heart and chronic kidney disease with heart failure and with stage 5 chronic kidney disease, or end stage renal disease (principal); I50.33 Acute on chronic diastolic (congestive) heart failure; N18.6 End stage renal disease; L97.929 Non-pressure chronic ulcer of unspecified part of left lower leg with unspecified severity; L97.919 Non-pressure chronic ulcer of unspecified part of right lower leg with unspecified severity; E83.51 Hypocalcemia; E11.43 Type 2 diabetes mellitus with diabetic autonomic (poly)neuropathy; E03.9 Hypothyroidism, unspecified; E11.21 Type 2 diabetes mellitus with diabetic nephropathy; G25.81 Restless legs syndrome; B95.62 Methicillin resistant Staphylococcus aureus infection as the cause of diseases classified elsewhere; E11.319 Type 2 diabetes mellitus with unspecified diabetic retinopathy without macular edema; R26.81 Unsteadiness on feet; D63.1 Anemia in chronic kidney disease; E87.70 Fluid overload, unspecified; E78.5 Hyperlipidemia, unspecified; Z88.8 Allergy status to other drugs, medicaments and biological substances; Z88.1 Allergy status to other antibiotic agents; Z90.710 Acquired absence of both cervix and uterus; Z98.41 Cataract extraction status, right eye; Z98.42 Cataract extraction status, left eye; Z91.15 Patient's noncompliance with renal dialysis; Z95.828 Presence of other vascular implants and grafts; Z89.432 Acquired absence of left foot; Z79.02 Long term (current) use of antithrombotics/antiplatelets; Z79.4 Long term (current) use of insulin; Z79.899 Other long term (current) drug therapy; I25.2 Old myocardial infarction

== ENCOUNTER → 2018-01-13 | Outpatient (REF) | payer MEDICARE | LOC: M LAB REF 17:29 | DX: L97.822 Non-pressure chronic ulcer of other part of left lower leg with fat layer exposed (principal); E11.621 Type 2 diabetes mellitus with foot ulcer | CPT/HCPCS: 87186 ==

== ENCOUNTER → 2018-01-18 | Outpatient (CLI) | payer MEDICARE | LOC: M RAD 09:31 | DX: I87.313 Chronic venous hypertension (idiopathic) with ulcer of bilateral lower extremity (principal); I25.10 Atherosclerotic heart disease of native coronary artery without angina pectoris; E11.59 Type 2 diabetes mellitus with other circulatory complications; L97.822 Non-pressure chronic ulcer of other part of left lower leg with fat layer exposed; L97.512 Non-pressure chronic ulcer of other part of right foot with fat layer exposed; L97.812 Non-pressure chronic ulcer of other part of right lower leg with fat layer exposed; Z95.828 Presence of other vascular implants and grafts | CPT/HCPCS: 93923 ==

== ENCOUNTER 2018-01-27 13:45 | Inpatient (IN) | payer MEDICARE ==
[2018-01-27] MEDS ORDERED: NS 1,000 ML IV (15:42)
[2018-01-27 17:24] LABS: BASO % 0.6 % (0.0-1.0); EOS # 0.4 10^3/uL (0.0-0.50); EOS % 6.8 % (0.0-3.0); HEMATOCRIT 32.7 % (36.0-47.0); HEMOGLOBIN 9.4 g/dl (12.0-16.0); IMMATURE GRANULOCYTE % 0.6 % (0-3.0); LYMPH # 0.8 10^3/uL (1.5-4.5); LYMPH % 16.2 % (24.0-44.0); MEAN CORPUSCULAR HEMOGLOBIN 26.3 pg (27.0-33.0); MEAN CORPUSCULAR HGB CONC 28.7 g/dl (32.0-36.5); MEAN CORPUSCULAR VOLUME 91.3 fl (80.0-96.0); MONO # 0.7 10^3/uL (0.0-0.8); MONO % 13.1 % (0.0-5.0); NEUTROPHILS # 3.2 10^3/uL (1.8-7.7); NEUTROPHILS % 62.7 % (36.0-66.0); PLATELET COUNT, AUTOMATED 140 10^3/uL (150-450); RED BLOOD COUNT 3.58 10^6/uL (4.00-5.40); RED CELL DISTRIBUTION WIDTH 17.6 % (11.5-14.5); WHITE BLOOD COUNT 5.1 10^3/uL (4.0-10.0)
[2018-01-27 17:25] LABS: VENOUS BASE EXCESS -1.7 (-2.0-2.0); VENOUS HCO3 24.4 MEQ/L (23.0-27.0); VENOUS O2 SATURATION 98.7 % (60.0-80.0); VENOUS PARTIAL PRESSURE CO2 47.6 mmHg (38.0-50.0); VENOUS PARTIAL PRESSURE O2 124.6 mmHg (30.0-50.0); VENOUS PH 7.328 UNITS (7.330-7.430); VENOUS TOTAL CO2 25.9 MEQ/L (24.0-28.0)
[2018-01-27 17:41] LABS: PROTHROMBIN TIME 15.4 SECONDS (12.4-14.5)
[2018-01-27 17:52] LABS: LACTIC ACID SEPSIS PROTOCOL 1.3 MMOL/L (0.4-2.0)
[2018-01-27 17:56] LABS: ALBUMIN 2.5 GM/DL (3.2-5.2); ALBUMIN/GLOBULIN RATIO 0.83 (1.00-1.93); ALKALINE PHOSPHATASE 402 U/L (45-117); ALT/SGPT 41 U/L (12-78); AMYLASE 21 U/L (25-115); ANION GAP 13 MEQ/L (8-16); AST/SGOT 30 U/L (7-37); BILIRUBIN,DIRECT 0.2 MG/DL (0.0-0.2); BILIRUBIN,TOTAL 0.4 MG/DL (0.2-1.0); BLOOD UREA NITROGEN 67 MG/DL (7-18); C REACTIVE PROTEIN QUANTITATIV 3.53 MG/DL (0.00-0.30); CALCIUM LEVEL 6.5 MG/DL (8.8-10.2); CARBON DIOXIDE LEVEL 23 MEQ/L (21-32); CHLORIDE LEVEL 102 MEQ/L (98-107); CPK CREATINE PHOSPHOKINASE 221 U/L (26-192); CREATININE FOR GFR 5.07 MG/DL (0.55-1.30); GLUCOSE, FASTING 169 MG/DL (70-100); SODIUM LEVEL 138 MEQ/L (136-145); TOTAL PROTEIN 5.5 GM/DL (6.4-8.2); TROPONIN I 0.02 NG/ML (< 0.10)
[2018-01-27 18:00] LABS: CK-MB VALUE MASS 9.8 NG/ML (0.0-3.6); MB/CK RELATIVE INDEX 4.43 (< OR =4)
[2018-01-27 18:01] LABS: AMMONIA 47 uMOL/L (<32)
[2018-01-27 18:08] LABS: ERYTHROCYTE SEDIMENTATION RATE 22 mm/hr (0-30)
[2018-01-27 18:15] LABS: APPEARANCE, URINE CLOUDY (CLEAR); BACTERIA, URINE AUTO 3+ (NEGATIVE); BILIRUBIN, URINE AUTO NEGATIVE (NEGATIVE); BLOOD, URINE BLOOD 1+ (NEGATIVE); COLOR, URINE YELLOW (YELLOW); GLUCOSE, URINE (UA) AUTO NEGATIVE (NEGATIVE); KETONE, URINE AUTO NEGATIVE (NEGATIVE); LEUKOCYTE ESTERASE, URINE AUTO 3+ (NEGATIVE); MUCUS, URINE SMALL (NEGATIVE); NITRITE, URINE AUTO NEGATIVE (NEGATIVE); PROTEIN, URINE AUTO 2+ mg/dL (NEGATIVE); RBC, URINE AUTO 11 /HPF (0-3); SPECIFIC GRAVITY URINE AUTO 1.011 (1.002-1.035); SQUAMOUS EPITHELIAL CELL UR AU 1 /HPF (0-6); UROBILINOGEN, URINE AUTO 0.2 mg/dL (0.0-2.0); WBC, URINE AUTO TNTC /HPF (0-3)
[2018-01-27 18:18] LABS: POTASSIUM SERUM 5.3 MEQ/L (3.5-5.1)
[2018-01-27] MEDS ORDERED: GLUCAGON FOR INJ 1 MG VIAL (J1610) SC (18:45)
[2018-01-27] MEDS ORDERED: DEXTROSE 50% 50 ML SYRINGE IV (18:45)
[2018-01-27] MEDS ORDERED: ACETAMINOPHEN TAB 650MG DOSE (2X325MG) PO (18:45)
[2018-01-27] MEDS ORDERED: ONDANSETRON 4MG/2ML VIAL (J2405) IV (18:45)
[2018-01-27] MEDS ORDERED: GLUCOSE 4 GM CHEW TABLET PO (18:45)
[2018-01-27 18:49] LABS: NT-PRO BNP 4664 PG/ML (<125)
[2018-01-27] MEDS: SOD POLYSTYRENE SULFONATE SUSP 15 GM/60 ML UD PO (19:26)
[2018-01-27] MEDS ORDERED: NITROGLYCERIN 0.4 MG SUBL TABLET SL (19:30)
[2018-01-27 19:46] LABS: BEDSIDE GLUCOSE 84 MG/DL (80-115)
[2018-01-27] MEDS: SIMVASTATIN 20 MG TAB PO (22:25)
[2018-01-27] MEDS: traZODone 100 MG TAB PO (22:25)
[2018-01-27] MEDS: METOPROLOL SUCC (TopROL XL) 50MG **XL** TAB PO (22:25)
[2018-01-27] MEDS: rOPINIRole 1MG TAB PO (22:26)
[2018-01-27] MEDS: CALCIUM/VITAMIN D 500 MG TAB PO (22:26)
[2018-01-27] MEDS: GABAPENTIN 300 MG CAP PO (22:26)
[2018-01-27] MEDS: HEPARIN SOD (PORCINE) 5000 UNITS/ML VIAL SC (22:27)
[2018-01-27] MEDS: PERCOCET 5MG/325MG TAB PO (22:29)
[2018-01-27] MEDS: NORTRIPTYLINE 10 MG CAP PO (22:30)
[2018-01-27] MEDS: HumaLOG INSULIN (NovoLOG) PER UNIT SC (22:30)
[2018-01-27] MEDS: DOCUSATE SODIUM 100 MG CAP PO (22:31)
[2018-01-28 02:40] LABS: BEDSIDE GLUCOSE 173 MG/DL (80-115)
[2018-01-28] MEDS: HEPARIN SOD (PORCINE) 5000 UNITS/ML VIAL SC ×3 (05:51→21:13)
[2018-01-28] MEDS: rOPINIRole 1MG TAB PO ×2 (05:51→21:14)
[2018-01-28] MEDS: METOPROLOL SUCC (TopROL XL) 50MG **XL** TAB PO ×2 (05:53→21:16)
[2018-01-28] MEDS: CALCIUM CARBONATE 500 MG CHEW U/D PO ×3 (05:53→17:58)
[2018-01-28] MEDS: CALCIUM/VITAMIN D 500 MG TAB PO (05:54)
[2018-01-28] MEDS: DOCUSATE SODIUM 100 MG CAP PO ×2 (05:54→21:14)
[2018-01-28] MEDS: GABAPENTIN 300 MG CAP PO ×2 (05:54→21:14)
[2018-01-28] MEDS: LEVOTHYROXINE 100MCG TABLET (0.1MG) PO (05:54)
[2018-01-28] MEDS: PANTOPRAZOLE 40MG TAB (PROTONIX) PO (06:16)
[2018-01-28] MEDS: EZETIMIBE 10 MG TAB (ZETIA) PO (06:16)
[2018-01-28] MEDS: TORSEMIDE 100 MG TAB PO ×2 (06:16→16:29)
[2018-01-28] MEDS: CLOPIDOGREL 75 MG TAB PO (06:16)
[2018-01-28] MEDS: DULoxetine 30 MG CAP (CYMBALTA) PO (06:16)
[2018-01-28 07:05] LABS: HEMATOCRIT 35.7 % (36.0-47.0); HEMOGLOBIN 10.2 g/dl (12.0-16.0); MEAN CORPUSCULAR HEMOGLOBIN 26.4 pg (27.0-33.0); MEAN CORPUSCULAR HGB CONC 28.6 g/dl (32.0-36.5); MEAN CORPUSCULAR VOLUME 92.5 fl (80.0-96.0); PLATELET COUNT, AUTOMATED 161 10^3/uL (150-450); RED BLOOD COUNT 3.86 10^6/uL (4.00-5.40); RED CELL DISTRIBUTION WIDTH 17.9 % (11.5-14.5); WHITE BLOOD COUNT 5.8 10^3/uL (4.0-10.0)
[2018-01-28 07:28] LABS: ALBUMIN 2.7 GM/DL (3.2-5.2); ANION GAP 10 MEQ/L (8-16); BLOOD UREA NITROGEN 74 MG/DL (7-18); C REACTIVE PROTEIN QUANTITATIV 3.81 MG/DL (0.00-0.30); CALCIUM LEVEL 6.8 MG/DL (8.8-10.2); CARBON DIOXIDE LEVEL 26 MEQ/L (21-32); CHLORIDE LEVEL 101 MEQ/L (98-107); CREATININE FOR GFR 5.34 MG/DL (0.55-1.30); GLOMERULAR FILTRATION RATE 8.5 (>45); GLUCOSE, FASTING 108 MG/DL (70-100); PHOSPHORUS LEVEL 6.3 MG/DL (2.5-4.9); SODIUM LEVEL 137 MEQ/L (136-145)
[2018-01-28] MEDS: HumaLOG INSULIN (NovoLOG) PER UNIT SC ×4 (07:30→21:15)
[2018-01-28 07:40] LABS: POTASSIUM SERUM 5.2 MEQ/L (3.5-5.1)
[2018-01-28] MEDS: NORTRIPTYLINE 10 MG CAP PO ×2 (08:35→21:21)
[2018-01-28] MEDS: CHOLESTYRAMINE 4 GM PWD PKT PO ×2 (14:14→17:57)
[2018-01-28] MEDS: HEPARIN 1,000 UNITS/ML 10ML VIAL (FOR RADIOLOGY& DIALYSIS ONLY) IV (14:45)
[2018-01-28] MEDS: LIDOCAINE 1% SDV 5 ML VIAL SQ (14:45)
[2018-01-28] MEDS: PERCOCET 5MG/325MG TAB PO (16:29)
[2018-01-28] MEDS: **NOTE PATIENT COMMENT** MISC XX (21:00)
[2018-01-28] MEDS: SIMVASTATIN 20 MG TAB PO (21:14)
[2018-01-28] MEDS: traZODone 100 MG TAB PO (21:14)
[2018-01-28 21:28] LABS: BEDSIDE GLUCOSE 252 MG/DL (80-115)
[2018-01-28] MEDS: DARBEPOETIN 100 MCG/0.5 ML *NON-DIALYSIS* SYRINGE (J0881) SQ (23:07)
[2018-01-29] MEDS: ALPRAZolam 0.25 MG TAB PO ×2 (01:19→22:34)
[2018-01-29] MEDS: diphenhydrAMINE CREAM 30GM TOP ×2 (01:30→22:35)
[2018-01-29] MEDS: HEPARIN SOD (PORCINE) 5000 UNITS/ML VIAL SC ×3 (05:40→22:34)
[2018-01-29] MEDS: LEVOTHYROXINE 100MCG TABLET (0.1MG) PO (05:40)
[2018-01-29 06:56] LABS: BEDSIDE GLUCOSE 298 MG/DL (80-115)
[2018-01-29 07:48] LABS: HEMOGLOBIN 9.9 g/dl (12.0-16.0); MEAN CORPUSCULAR HGB CONC 28.3 g/dl (32.0-36.5); MEAN CORPUSCULAR VOLUME 91.9 fl (80.0-96.0); PLATELET COUNT, AUTOMATED 131 10^3/uL (150-450); RED BLOOD COUNT 3.81 10^6/uL (4.00-5.40); RED CELL DISTRIBUTION WIDTH 17.4 % (11.5-14.5); WHITE BLOOD COUNT 4.9 10^3/uL (4.0-10.0)
[2018-01-29 08:10] LABS: ALBUMIN 2.6 GM/DL (3.2-5.2); ANION GAP 8 MEQ/L (8-16); BLOOD UREA NITROGEN 51 MG/DL (7-18); C REACTIVE PROTEIN QUANTITATIV 2.65 MG/DL (0.00-0.30); CALCIUM LEVEL 6.8 MG/DL (8.8-10.2); CARBON DIOXIDE LEVEL 26 MEQ/L (21-32); CHLORIDE LEVEL 102 MEQ/L (98-107); CREATININE FOR GFR 4.13 MG/DL (0.55-1.30); GLOMERULAR FILTRATION RATE 11.4 (>45); GLUCOSE, FASTING 315 MG/DL (70-100); PHOSPHORUS LEVEL 4.8 MG/DL (2.5-4.9); SODIUM LEVEL 136 MEQ/L (136-145)
[2018-01-29] MEDS: rOPINIRole 1MG TAB PO ×2 (08:50→20:00)
[2018-01-29] MEDS: CALCIUM CARBONATE 500 MG CHEW U/D PO ×3 (08:51→17:51)
[2018-01-29] MEDS: PANTOPRAZOLE 40MG TAB (PROTONIX) PO (08:51)
[2018-01-29] MEDS: DOCUSATE SODIUM 100 MG CAP PO ×2 (08:51→20:01)
[2018-01-29] MEDS: DULoxetine 30 MG CAP (CYMBALTA) PO (08:51)
[2018-01-29] MEDS: NORTRIPTYLINE 10 MG CAP PO ×2 (08:51→20:00)
[2018-01-29] MEDS: CLOPIDOGREL 75 MG TAB PO (08:51)
[2018-01-29] MEDS: GABAPENTIN 300 MG CAP PO ×2 (08:51→20:01)
[2018-01-29] MEDS: EZETIMIBE 10 MG TAB (ZETIA) PO (08:51)
[2018-01-29] MEDS: METOPROLOL SUCC (TopROL XL) 50MG **XL** TAB PO ×2 (08:51→20:01)
[2018-01-29] MEDS: TORSEMIDE 100 MG TAB PO ×2 (08:51→17:51)
[2018-01-29] MEDS: HumaLOG INSULIN (NovoLOG) PER UNIT SC ×4 (08:52→20:16)
[2018-01-29] MEDS ORDERED: BISACODYL 10 MG SUPP PR (11:15)
[2018-01-29 12:03] LABS: BEDSIDE GLUCOSE 76 MG/DL (80-115)
[2018-01-29 12:03] LABS: BEDSIDE GLUCOSE 198 MG/DL (80-115)
[2018-01-29 12:04] LABS: BEDSIDE GLUCOSE 274 MG/DL (80-115)
[2018-01-29] MEDS: CHOLESTYRAMINE 4 GM PWD PKT PO ×2 (12:58→17:51)
[2018-01-29] MEDS: CEFTRIAXONE SOD 1 GM in APPROPRIATE DILUENT 1 EA IV (12:58)
[2018-01-29] MEDS: LEVEMIR (INSULIN DETEMIR) 1 UNITS/0.01ML SC ×2 (12:59→20:16)
[2018-01-29] MEDS: traZODone 100 MG TAB PO (20:01)
[2018-01-29] MEDS: SIMVASTATIN 20 MG TAB PO (20:01)
[2018-01-29] MEDS: PERCOCET 5MG/325MG TAB PO (20:03)
[2018-01-29 20:11] LABS: BEDSIDE GLUCOSE 258 MG/DL (80-115)
[2018-01-29] MEDS: **NOTE PATIENT COMMENT** MISC XX (20:17)
[2018-01-30 05:52] LABS: HEMATOCRIT 33.6 % (36.0-47.0); HEMOGLOBIN 9.6 g/dl (12.0-16.0); MEAN CORPUSCULAR HEMOGLOBIN 26.2 pg (27.0-33.0); MEAN CORPUSCULAR HGB CONC 28.6 g/dl (32.0-36.5); MEAN CORPUSCULAR VOLUME 91.8 fl (80.0-96.0); PLATELET COUNT, AUTOMATED 119 10^3/uL (150-450); RED BLOOD COUNT 3.66 10^6/uL (4.00-5.40); RED CELL DISTRIBUTION WIDTH 17.1 % (11.5-14.5); WHITE BLOOD COUNT 4.4 10^3/uL (4.0-10.0)
[2018-01-30] MEDS: rOPINIRole 1MG TAB PO ×2 (05:57→21:58)
[2018-01-30] MEDS: GABAPENTIN 300 MG CAP PO ×2 (05:58→21:59)
[2018-01-30] MEDS: DULoxetine 30 MG CAP (CYMBALTA) PO (05:58)
[2018-01-30] MEDS: CALCIUM CARBONATE 500 MG CHEW U/D PO ×3 (05:58→19:03)
[2018-01-30] MEDS: HEPARIN SOD (PORCINE) 5000 UNITS/ML VIAL SC ×3 (05:58→21:59)
[2018-01-30] MEDS: EZETIMIBE 10 MG TAB (ZETIA) PO (05:59)
[2018-01-30] MEDS: PANTOPRAZOLE 40MG TAB (PROTONIX) PO (05:59)
[2018-01-30] MEDS: LEVOTHYROXINE 100MCG TABLET (0.1MG) PO (05:59)
[2018-01-30] MEDS: CLOPIDOGREL 75 MG TAB PO (05:59)
[2018-01-30] MEDS: DOCUSATE SODIUM 100 MG CAP PO ×2 (06:00→21:59)
[2018-01-30] MEDS: METOPROLOL SUCC (TopROL XL) 50MG **XL** TAB PO ×2 (06:00→21:58)
[2018-01-30 06:09] LABS: ALBUMIN 2.5 GM/DL (3.2-5.2); ANION GAP 10 MEQ/L (8-16); BLOOD UREA NITROGEN 65 MG/DL (7-18); CALCIUM LEVEL 6.8 MG/DL (8.8-10.2); CARBON DIOXIDE LEVEL 26 MEQ/L (21-32); CHLORIDE LEVEL 102 MEQ/L (98-107); CREATININE FOR GFR 4.98 MG/DL (0.55-1.30); GLOMERULAR FILTRATION RATE 9.2 (>45); GLUCOSE, FASTING 184 MG/DL (70-100); PHOSPHORUS LEVEL 5.4 MG/DL (2.5-4.9); POTASSIUM SERUM 4.8 MEQ/L (3.5-5.1); SODIUM LEVEL 138 MEQ/L (136-145)
[2018-01-30] MEDS: TORSEMIDE 100 MG TAB PO ×2 (06:13→19:03)
[2018-01-30] MEDS: PERCOCET 5MG/325MG TAB PO (06:14)
[2018-01-30] MEDS: NORTRIPTYLINE 10 MG CAP PO ×2 (08:17→21:58)
[2018-01-30] MEDS: HumaLOG INSULIN (NovoLOG) PER UNIT SC ×4 (08:20→21:00)
[2018-01-30] MEDS: LEVEMIR (INSULIN DETEMIR) 1 UNITS/0.01ML SC ×2 (08:20→22:00)
[2018-01-30] MEDS: MUPIROCIN 2% OINT 22 GM TUBE TOP ×3 (09:00→22:01)
[2018-01-30] MEDS: HEPARIN 1,000 UNITS/ML 10ML VIAL (FOR RADIOLOGY& DIALYSIS ONLY) IV (10:30)
[2018-01-30] MEDS: LIDOCAINE 1% SDV 5 ML VIAL SQ (10:30)
[2018-01-30] MEDS: CHOLESTYRAMINE 4 GM PWD PKT PO ×2 (12:00→19:03)
[2018-01-30 12:10] LABS: BEDSIDE GLUCOSE 216 MG/DL (80-115)
[2018-01-30] MEDS: CEFTRIAXONE SOD 1 GM in APPROPRIATE DILUENT 1 EA IV (13:14)
[2018-01-30] MEDS: ALPRAZolam 0.25 MG TAB PO (13:22)
[2018-01-30 17:34] LABS: BEDSIDE GLUCOSE 313 MG/DL (80-115)
[2018-01-30] MEDS: **NOTE PATIENT COMMENT** MISC XX (21:00)
[2018-01-30] MEDS: traZODone 100 MG TAB PO (21:59)
[2018-01-30] MEDS: SIMVASTATIN 20 MG TAB PO (21:59)
[2018-01-31] MEDS: PERCOCET 5MG/325MG TAB PO ×2 (03:22→21:06)
[2018-01-31 06:26] LABS: HEMATOCRIT 33.8 % (36.0-47.0); HEMOGLOBIN 9.7 g/dl (12.0-16.0); MEAN CORPUSCULAR HEMOGLOBIN 25.8 pg (27.0-33.0); MEAN CORPUSCULAR HGB CONC 28.7 g/dl (32.0-36.5); MEAN CORPUSCULAR VOLUME 89.9 fl (80.0-96.0); PLATELET COUNT, AUTOMATED 116 10^3/uL (150-450); RED BLOOD COUNT 3.76 10^6/uL (4.00-5.40); RED CELL DISTRIBUTION WIDTH 16.9 % (11.5-14.5); WHITE BLOOD COUNT 5.4 10^3/uL (4.0-10.0)
[2018-01-31 06:39] LABS: ALBUMIN 2.5 GM/DL (3.2-5.2); ANION GAP 6 MEQ/L (8-16); BLOOD UREA NITROGEN 46 MG/DL (7-18); CARBON DIOXIDE LEVEL 30 MEQ/L (21-32); CHLORIDE LEVEL 101 MEQ/L (98-107); CREATININE FOR GFR 3.75 MG/DL (0.55-1.30); GLOMERULAR FILTRATION RATE 12.7 (>45); GLUCOSE, FASTING 192 MG/DL (70-100); PHOSPHORUS LEVEL 3.9 MG/DL (2.5-4.9); POTASSIUM SERUM 4.6 MEQ/L (3.5-5.1); SODIUM LEVEL 137 MEQ/L (136-145)
[2018-01-31] MEDS: DULoxetine 30 MG CAP (CYMBALTA) PO (06:45)
[2018-01-31] MEDS: LEVOTHYROXINE 100MCG TABLET (0.1MG) PO (06:45)
[2018-01-31] MEDS: CALCIUM CARBONATE 500 MG CHEW U/D PO ×3 (06:45→18:10)
[2018-01-31] MEDS: rOPINIRole 1MG TAB PO ×2 (06:45→21:04)
[2018-01-31] MEDS: EZETIMIBE 10 MG TAB (ZETIA) PO (06:46)
[2018-01-31] MEDS: GABAPENTIN 300 MG CAP PO ×2 (06:46→21:04)
[2018-01-31] MEDS: METOPROLOL SUCC (TopROL XL) 50MG **XL** TAB PO ×2 (06:46→21:04)
[2018-01-31] MEDS: CLOPIDOGREL 75 MG TAB PO (06:46)
[2018-01-31] MEDS: PANTOPRAZOLE 40MG TAB (PROTONIX) PO (06:46)
[2018-01-31] MEDS: DOCUSATE SODIUM 100 MG CAP PO ×2 (06:46→21:03)
[2018-01-31] MEDS: LIDOCAINE 5% (LIDODERM) PATCH TD (06:47)
[2018-01-31] MEDS: diphenhydrAMINE CREAM 30GM TOP (06:47)
[2018-01-31] MEDS: LEVEMIR (INSULIN DETEMIR) 1 UNITS/0.01ML SC ×2 (06:47→21:07)
[2018-01-31] MEDS: MUPIROCIN 2% OINT 22 GM TUBE TOP ×3 (06:48→21:07)
[2018-01-31] MEDS: HEPARIN SOD (PORCINE) 5000 UNITS/ML VIAL SC ×3 (06:49→21:05)
[2018-01-31] MEDS: HumaLOG INSULIN (NovoLOG) PER UNIT SC ×4 (06:51→21:00)
[2018-01-31] MEDS: ALPRAZolam 0.25 MG TAB PO ×2 (09:26→21:03)
[2018-01-31] MEDS: HEPARIN 1,000 UNITS/ML 10ML VIAL (FOR RADIOLOGY& DIALYSIS ONLY) IV (10:30)
[2018-01-31] MEDS: LIDOCAINE 1% SDV 5 ML VIAL SQ (10:30)
[2018-01-31] MEDS: TORSEMIDE 100 MG TAB PO ×2 (11:40→18:10)
[2018-01-31] MEDS: NORTRIPTYLINE 10 MG CAP PO ×2 (11:40→21:11)
[2018-01-31] MEDS: CHOLESTYRAMINE 4 GM PWD PKT PO ×2 (14:45→18:10)
[2018-01-31] MEDS: CEFTRIAXONE SOD 1 GM in APPROPRIATE DILUENT 1 EA IV (14:45)
[2018-01-31 16:49] LABS: BEDSIDE GLUCOSE 202 MG/DL (80-115)
[2018-01-31 16:49] LABS: BEDSIDE GLUCOSE 77 MG/DL (80-115)
[2018-01-31 16:49] LABS: BEDSIDE GLUCOSE 133 MG/DL (80-115)
[2018-01-31 16:49] LABS: BEDSIDE GLUCOSE 226 MG/DL (80-115)
[2018-01-31 17:16] LABS: BEDSIDE GLUCOSE 140 MG/DL (80-115)
[2018-01-31 20:57] LABS: BEDSIDE GLUCOSE 209 MG/DL (80-115)
[2018-01-31] MEDS: **NOTE PATIENT COMMENT** MISC XX (21:00)
[2018-01-31] MEDS: SIMVASTATIN 20 MG TAB PO (21:05)
[2018-01-31] MEDS: traZODone 100 MG TAB PO (21:06)
[2018-01-31] MEDS: guaiFENesin 200 MG TAB PO (21:28)
[2018-02-01] MEDS: guaiFENesin 200 MG TAB PO (02:00)
[2018-02-01] MEDS: DULoxetine 30 MG CAP (CYMBALTA) PO (05:53)
[2018-02-01] MEDS: CALCIUM CARBONATE 500 MG CHEW U/D PO ×3 (05:53→21:05)
[2018-02-01] MEDS: SIMVASTATIN 20 MG TAB PO (05:54)
[2018-02-01] MEDS: NORTRIPTYLINE 10 MG CAP PO ×2 (05:54→21:06)
[2018-02-01] MEDS: CLOPIDOGREL 75 MG TAB PO (05:54)
[2018-02-01] MEDS: GABAPENTIN 300 MG CAP PO ×2 (05:54→21:04)
[2018-02-01] MEDS: rOPINIRole 1MG TAB PO ×2 (05:54→21:04)
[2018-02-01] MEDS: DOCUSATE SODIUM 100 MG CAP PO ×2 (05:54→21:06)
[2018-02-01 05:55] LABS: HEMATOCRIT 37.7 % (36.0-47.0); HEMOGLOBIN 10.9 g/dl (12.0-16.0); MEAN CORPUSCULAR HEMOGLOBIN 26.1 pg (27.0-33.0); MEAN CORPUSCULAR HGB CONC 28.9 g/dl (32.0-36.5); MEAN CORPUSCULAR VOLUME 90.4 fl (80.0-96.0); PLATELET COUNT, AUTOMATED 121 10^3/uL (150-450); RED BLOOD COUNT 4.17 10^6/uL (4.00-5.40); RED CELL DISTRIBUTION WIDTH 16.8 % (11.5-14.5); WHITE BLOOD COUNT 5.8 10^3/uL (4.0-10.0)
[2018-02-01] MEDS: METOPROLOL SUCC (TopROL XL) 50MG **XL** TAB PO ×2 (05:55→21:08)
[2018-02-01] MEDS: LEVOTHYROXINE 100MCG TABLET (0.1MG) PO (05:56)
[2018-02-01] MEDS: PANTOPRAZOLE 40MG TAB (PROTONIX) PO (05:56)
[2018-02-01] MEDS: TORSEMIDE 100 MG TAB PO ×2 (05:57→21:04)
[2018-02-01] MEDS: MUPIROCIN 2% OINT 22 GM TUBE TOP ×3 (05:57→21:07)
[2018-02-01] MEDS: EZETIMIBE 10 MG TAB (ZETIA) PO (05:57)
[2018-02-01] MEDS: HEPARIN SOD (PORCINE) 5000 UNITS/ML VIAL SC ×3 (05:57→21:07)
[2018-02-01 06:14] LABS: ALBUMIN 2.8 GM/DL (3.2-5.2); ANION GAP 9 MEQ/L (8-16); BLOOD UREA NITROGEN 69 MG/DL (7-18); CALCIUM LEVEL 7.3 MG/DL (8.8-10.2); CARBON DIOXIDE LEVEL 28 MEQ/L (21-32); CHLORIDE LEVEL 100 MEQ/L (98-107); CREATININE FOR GFR 5.19 MG/DL (0.55-1.30); GLOMERULAR FILTRATION RATE 8.8 (>45); GLUCOSE, FASTING 193 MG/DL (70-100); PHOSPHORUS LEVEL 5.5 MG/DL (2.5-4.9); POTASSIUM SERUM 4.8 MEQ/L (3.5-5.1); SODIUM LEVEL 137 MEQ/L (136-145)
[2018-02-01] MEDS: guaiFENesin SYRUP 200 MG/10 ML UDC PO ×2 (06:26→21:04)
[2018-02-01] MEDS: LEVEMIR (INSULIN DETEMIR) 1 UNITS/0.01ML SC ×2 (06:26→21:00)
[2018-02-01] MEDS: HumaLOG INSULIN (NovoLOG) PER UNIT SC ×4 (06:51→21:00)
[2018-02-01] MEDS ORDERED: CEPACOL LOZENGE PO (09:15)
[2018-02-01] MEDS: BENZONATATE 100 MG CAP PO ×3 (10:29→21:05)
[2018-02-01] MEDS: CHOLESTYRAMINE 4 GM PWD PKT PO ×2 (12:00→18:00)
[2018-02-01] MEDS: IPRATROPIUM 0.5MG/ALBUTEROL 2.5MG INH SOL UD 3ML (DUONEB)(J7620) NEB ×3 (12:00→20:00)
[2018-02-01] MEDS: OSELTAMIVIR PHOSPHATE 30MG CAPSULE PO (13:18)
[2018-02-01] MEDS: ALPRAZolam 0.25 MG TAB PO (15:28)
[2018-02-01 19:59] LABS: BEDSIDE GLUCOSE 233 MG/DL (80-115)
[2018-02-01] MEDS: **NOTE PATIENT COMMENT** MISC XX (21:00)
[2018-02-01] MEDS: traZODone 100 MG TAB PO (21:06)
[2018-02-01 21:44] LABS: BEDSIDE GLUCOSE 114 MG/DL (80-115)
[2018-02-02] MEDS: ALPRAZolam 0.25 MG TAB PO (00:34)
[2018-02-02] MEDS: PERCOCET 5MG/325MG TAB PO (00:39)
[2018-02-02] MEDS: BENZONATATE 100 MG CAP PO (01:00)
[2018-02-02] MEDS: ALBUTEROL SULFATE 2.5 MG/0.5 ML INH NEB SOLN NEB (01:15)
[2018-02-02] MEDS: DEXTROMETHORPHAN 5 ML SYRUP (ROBITUSSIN PEDIATRIC COUGH) PO (02:36)
[2018-02-02] MEDS: guaiFENesin SYRUP 200 MG/10 ML UDC PO (05:48)
[2018-02-02] MEDS: LEVOTHYROXINE 100MCG TABLET (0.1MG) PO (05:48)
[2018-02-02] MEDS: HEPARIN SOD (PORCINE) 5000 UNITS/ML VIAL SC (05:48)
[2018-02-02 05:59] LABS: HEMATOCRIT 32.8 % (36.0-47.0); HEMOGLOBIN 9.3 g/dl (12.0-16.0); MEAN CORPUSCULAR HEMOGLOBIN 25.8 pg (27.0-33.0); MEAN CORPUSCULAR HGB CONC 28.4 g/dl (32.0-36.5); MEAN CORPUSCULAR VOLUME 90.9 fl (80.0-96.0); PLATELET COUNT, AUTOMATED 106 10^3/uL (150-450); RED BLOOD COUNT 3.61 10^6/uL (4.00-5.40); RED CELL DISTRIBUTION WIDTH 16.8 % (11.5-14.5); WHITE BLOOD COUNT 4.5 10^3/uL (4.0-10.0)
[2018-02-02 06:17] LABS: ALBUMIN 2.3 GM/DL (3.2-5.2); ANION GAP 8 MEQ/L (8-16); BLOOD UREA NITROGEN 47 MG/DL (7-18); CALCIUM LEVEL 7.3 MG/DL (8.8-10.2); CARBON DIOXIDE LEVEL 28 MEQ/L (21-32); CHLORIDE LEVEL 101 MEQ/L (98-107); GLOMERULAR FILTRATION RATE 11.8 (>45); GLUCOSE, FASTING 313 MG/DL (70-100); PHOSPHORUS LEVEL 5.2 MG/DL (2.5-4.9); SODIUM LEVEL 137 MEQ/L (136-145)
[2018-02-02] MEDS: IPRATROPIUM 0.5MG/ALBUTEROL 2.5MG INH SOL UD 3ML (DUONEB)(J7620) NEB ×2 (07:54→11:31)
[2018-02-02] MEDS: HumaLOG INSULIN (NovoLOG) PER UNIT SC ×4 (08:49→21:05)
[2018-02-02] MEDS: rOPINIRole 1MG TAB PO ×2 (08:50→21:03)
[2018-02-02] MEDS: LEVEMIR (INSULIN DETEMIR) 1 UNITS/0.01ML SC ×2 (08:50→21:04)
[2018-02-02] MEDS: MUPIROCIN 2% OINT 22 GM TUBE TOP ×3 (08:50→21:06)
[2018-02-02] MEDS: CALCIUM CARBONATE 500 MG CHEW U/D PO ×3 (08:51→17:39)
[2018-02-02] MEDS: TORSEMIDE 100 MG TAB PO ×2 (08:51→17:38)
[2018-02-02] MEDS: NORTRIPTYLINE 10 MG CAP PO ×2 (08:51→21:06)
[2018-02-02] MEDS: PANTOPRAZOLE 40MG TAB (PROTONIX) PO (08:52)
[2018-02-02] MEDS: EZETIMIBE 10 MG TAB (ZETIA) PO (08:52)
[2018-02-02] MEDS: DULoxetine 30 MG CAP (CYMBALTA) PO (08:52)
[2018-02-02] MEDS: METOPROLOL SUCC (TopROL XL) 50MG **XL** TAB PO ×2 (08:52→21:02)
[2018-02-02] MEDS: CLOPIDOGREL 75 MG TAB PO (08:52)
[2018-02-02] MEDS: GABAPENTIN 300 MG CAP PO ×2 (08:52→21:03)
[2018-02-02] MEDS: SENOKOT S TAB PO ×2 (09:00→21:00)
[2018-02-02] MEDS: MIRALAX *UNIT DOSE* 17GM PACKET PO (09:00)
[2018-02-02 09:07] LABS: ABG BASE EXCESS -0.9 (-2.0-2.0); ABG DEVICE NASAL CANN; ABG HCO3 25.9 MEQ/L (22.0-26.0); ABG O2 SATURATION 96.3 % (95.0-99.0); ABG PARTIAL PRESSURE CO2 53.4 mmHg (35.0-45.0); ABG PARTIAL PRESSURE O2 91.2 mmHg (75.0-100.0); ABG STANDARD HCO3 23.7 MEQ/L (22.0-26.0); ABG TOTAL CO2 27.5 MEQ/L (23.0-31.0); ABG pH (ARTERIAL) 7.303 UNITS (7.350-7.450)
[2018-02-02 12:04] LABS: BEDSIDE GLUCOSE 290 MG/DL (80-115)
[2018-02-02] MEDS: CHOLESTYRAMINE 4 GM PWD PKT PO ×2 (12:34→17:34)
[2018-02-02 17:08] LABS: BEDSIDE GLUCOSE 107 MG/DL (80-115)
[2018-02-02] MEDS: methylPREDNISolone INJ 125 MG/2 ML VIAL (J2930) IV (17:38)
[2018-02-02 20:18] LABS: BEDSIDE GLUCOSE 294 MG/DL (80-115)
[2018-02-02] MEDS: **NOTE PATIENT COMMENT** MISC XX (21:00)
[2018-02-02] MEDS: SIMVASTATIN 20 MG TAB PO (21:03)
[2018-02-02] MEDS: traZODone 100 MG TAB PO (21:03)
[2018-02-03] MEDS: methylPREDNISolone INJ 125 MG/2 ML VIAL (J2930) IV (00:18)
[2018-02-03] MEDS: CALCIUM CARBONATE 500 MG CHEW U/D PO ×3 (05:54→19:01)
[2018-02-03] MEDS: LEVOTHYROXINE 100MCG TABLET (0.1MG) PO (05:54)
[2018-02-03] MEDS: PERCOCET 5MG/325MG TAB PO (05:55)
[2018-02-03 06:24] LABS: HEMATOCRIT 35.6 % (36.0-47.0); HEMOGLOBIN 10.2 g/dl (12.0-16.0); MEAN CORPUSCULAR HGB CONC 28.7 g/dl (32.0-36.5); MEAN CORPUSCULAR VOLUME 90.6 fl (80.0-96.0); PLATELET COUNT, AUTOMATED 113 10^3/uL (150-450); RED BLOOD COUNT 3.93 10^6/uL (4.00-5.40); RED CELL DISTRIBUTION WIDTH 16.4 % (11.5-14.5); WHITE BLOOD COUNT 3.5 10^3/uL (4.0-10.0)
[2018-02-03 06:47] LABS: ALBUMIN 2.5 GM/DL (3.2-5.2); ANION GAP 11 MEQ/L (8-16); BLOOD UREA NITROGEN 47 MG/DL (7-18); CALCIUM LEVEL 8.1 MG/DL (8.8-10.2); CARBON DIOXIDE LEVEL 25 MEQ/L (21-32); CHLORIDE LEVEL 97 MEQ/L (98-107); CREATININE FOR GFR 3.98 MG/DL (0.55-1.30); GLOMERULAR FILTRATION RATE 11.9 (>45); PHOSPHORUS LEVEL 4.1 MG/DL (2.5-4.9); POTASSIUM SERUM 5.1 MEQ/L (3.5-5.1); SODIUM LEVEL 133 MEQ/L (136-145)
[2018-02-03] MEDS: rOPINIRole 1MG TAB PO ×2 (06:48→21:26)
[2018-02-03] MEDS: TORSEMIDE 100 MG TAB PO ×2 (06:48→19:02)
[2018-02-03] MEDS: GABAPENTIN 300 MG CAP PO ×2 (06:48→21:27)
[2018-02-03] MEDS: DULoxetine 30 MG CAP (CYMBALTA) PO (06:48)
[2018-02-03] MEDS: CLOPIDOGREL 75 MG TAB PO (06:48)
[2018-02-03] MEDS: NORTRIPTYLINE 10 MG CAP PO ×2 (06:48→21:27)
[2018-02-03] MEDS: SENOKOT S TAB PO ×2 (06:49→21:27)
[2018-02-03] MEDS: PANTOPRAZOLE 40MG TAB (PROTONIX) PO (06:49)
[2018-02-03] MEDS: MIRALAX *UNIT DOSE* 17GM PACKET PO (06:49)
[2018-02-03] MEDS: EZETIMIBE 10 MG TAB (ZETIA) PO (06:53)
[2018-02-03] MEDS: METOPROLOL SUCC (TopROL XL) 50MG **XL** TAB PO ×2 (06:53→21:28)
[2018-02-03 06:55] LABS: GLUCOSE, FASTING 605 MG/DL (70-100)
[2018-02-03] MEDS: HumaLOG INSULIN (NovoLOG) PER UNIT SC ×5 (07:12→21:26)
[2018-02-03] MEDS: LEVEMIR (INSULIN DETEMIR) 1 UNITS/0.01ML SC ×2 (07:24→21:25)
[2018-02-03] MEDS: MUPIROCIN 2% OINT 22 GM TUBE TOP ×3 (09:00→21:27)
[2018-02-03 09:25] LABS: BEDSIDE GLUCOSE 442 MG/DL (80-115)
[2018-02-03] MEDS: CHOLESTYRAMINE 4 GM PWD PKT PO ×2 (12:00→17:16)
[2018-02-03 12:43] LABS: BEDSIDE GLUCOSE 421 MG/DL (80-115)
[2018-02-03] MEDS ORDERED: OSELTAMIVIR PHOSPHATE 30MG CAPSULE PO (16:00)
[2018-02-03 18:58] LABS: BEDSIDE GLUCOSE 368 MG/DL (80-115)
[2018-02-03] MEDS: **NOTE PATIENT COMMENT** MISC XX (21:00)
[2018-02-03 21:01] LABS: BEDSIDE GLUCOSE 462 MG/DL (80-115)
[2018-02-03] MEDS: SIMVASTATIN 20 MG TAB PO (21:27)
[2018-02-03] MEDS: traZODone 100 MG TAB PO (21:27)
[2018-02-03] MEDS: ALBUTEROL SULFATE 2.5 MG/0.5 ML INH NEB SOLN NEB (23:16)
[2018-02-04] MEDS: ALPRAZolam 0.25 MG TAB PO ×2 (00:21→13:16)
[2018-02-04] MEDS: LEVOTHYROXINE 100MCG TABLET (0.1MG) PO (06:04)
[2018-02-04 06:16] LABS: BEDSIDE GLUCOSE 400 MG/DL (80-115)
[2018-02-04 08:29] LABS: HEMOGLOBIN 10.4 g/dl (12.0-16.0); MEAN CORPUSCULAR HEMOGLOBIN 26.1 pg (27.0-33.0); MEAN CORPUSCULAR HGB CONC 28.9 g/dl (32.0-36.5); MEAN CORPUSCULAR VOLUME 90.5 fl (80.0-96.0); PLATELET COUNT, AUTOMATED 141 10^3/uL (150-450); RED BLOOD COUNT 3.98 10^6/uL (4.00-5.40); RED CELL DISTRIBUTION WIDTH 16.3 % (11.5-14.5); WHITE BLOOD COUNT 6.3 10^3/uL (4.0-10.0)
[2018-02-04 08:31] LABS: ANION GAP 9 MEQ/L (8-16); BLOOD UREA NITROGEN 78 MG/DL (7-18); CALCIUM LEVEL 7.8 MG/DL (8.8-10.2); CARBON DIOXIDE LEVEL 26 MEQ/L (21-32); CHLORIDE LEVEL 100 MEQ/L (98-107); CREATININE FOR GFR 4.79 MG/DL (0.55-1.30); GLOMERULAR FILTRATION RATE 9.6 (>45); GLUCOSE, FASTING 397 MG/DL (70-100); POTASSIUM SERUM 4.6 MEQ/L (3.5-5.1); SODIUM LEVEL 135 MEQ/L (136-145)
[2018-02-04] MEDS: rOPINIRole 1MG TAB PO (08:38)
[2018-02-04] MEDS: HumaLOG INSULIN (NovoLOG) PER UNIT SC ×2 (08:40→12:53)
[2018-02-04] MEDS: LEVEMIR (INSULIN DETEMIR) 1 UNITS/0.01ML SC (08:40)
[2018-02-04] MEDS: DULoxetine 30 MG CAP (CYMBALTA) PO (08:41)
[2018-02-04] MEDS: TORSEMIDE 100 MG TAB PO (08:41)
[2018-02-04] MEDS: NORTRIPTYLINE 10 MG CAP PO (08:41)
[2018-02-04] MEDS: CALCIUM CARBONATE 500 MG CHEW U/D PO ×2 (08:41→11:13)
[2018-02-04] MEDS: GABAPENTIN 300 MG CAP PO (08:42)
[2018-02-04] MEDS: METOPROLOL SUCC (TopROL XL) 50MG **XL** TAB PO (08:42)
[2018-02-04] MEDS: PANTOPRAZOLE 40MG TAB (PROTONIX) PO (08:42)
[2018-02-04] MEDS: CLOPIDOGREL 75 MG TAB PO (08:43)
[2018-02-04] MEDS: EZETIMIBE 10 MG TAB (ZETIA) PO (08:43)
[2018-02-04] MEDS: SENOKOT S TAB PO (08:44)
[2018-02-04] MEDS: MUPIROCIN 2% OINT 22 GM TUBE TOP (08:45)
[2018-02-04] MEDS: MIRALAX *UNIT DOSE* 17GM PACKET PO (08:45)
[2018-02-04] MEDS ORDERED: predniSONE 20 MG TAB PO (09:00)
[2018-02-04] MEDS: DARBEPOETIN 100 MCG/0.5 ML *NON-DIALYSIS* SYRINGE (J0881) SQ (11:06)
[2018-02-04] MEDS: CHOLESTYRAMINE 4 GM PWD PKT PO (12:53)
[2018-02-04 15:12] LABS: BEDSIDE GLUCOSE 451 MG/DL (80-115)
[2018-02-06] MEDS ORDERED: OSELTAMIVIR PHOSPHATE 30MG CAPSULE PO (13:00)
== END 2018-02-04 13:27 | disposition home health service (06) | DRG 291 ==
LOC: M ED 13:45 → M ED INP 18:42 → M MSPAV 20:55
PROC: 5A1D70Z Performance of Urinary Filtration, Intermittent, Less than 6 Hours Per Day (ICD-10-PCS; principal; 2018-01-28)
DX: I13.2 Hypertensive heart and chronic kidney disease with heart failure and with stage 5 chronic kidney disease, or end stage renal disease (principal); N18.6 End stage renal disease; I50.31 Acute diastolic (congestive) heart failure; N39.0 Urinary tract infection, site not specified; Z68.43 Body mass index [BMI] 50.0-59.9, adult; E87.2 Acidosis; E66.01 Morbid (severe) obesity due to excess calories; J10.1 Influenza due to other identified influenza virus with other respiratory manifestations; Z91.19 Patient's noncompliance with other medical treatment and regimen; D63.8 Anemia in other chronic diseases classified elsewhere; E87.5 Hyperkalemia; E83.51 Hypocalcemia; N25.0 Renal osteodystrophy; G47.33 Obstructive sleep apnea (adult) (pediatric); E11.40 Type 2 diabetes mellitus with diabetic neuropathy, unspecified; G25.81 Restless legs syndrome; I25.10 Atherosclerotic heart disease of native coronary artery without angina pectoris; E03.9 Hypothyroidism, unspecified; F32.9 Major depressive disorder, single episode, unspecified; E78.5 Hyperlipidemia, unspecified; B96.29 Other Escherichia coli [E. coli] as the cause of diseases classified elsewhere; Z79.899 Other long term (current) drug therapy; Z79.4 Long term (current) use of insulin; Z88.1 Allergy status to other antibiotic agents; Z88.8 Allergy status to other drugs, medicaments and biological substances; E11.319 Type 2 diabetes mellitus with unspecified diabetic retinopathy without macular edema; I87.2 Venous insufficiency (chronic) (peripheral); K21.9 Gastro-esophageal reflux disease without esophagitis; I25.2 Old myocardial infarction; Z95.2 Presence of prosthetic heart valve; R29.6 Repeated falls; F41.9 Anxiety disorder, unspecified; B95.62 Methicillin resistant Staphylococcus aureus infection as the cause of diseases classified elsewhere; E83.39 Other disorders of phosphorus metabolism

== ENCOUNTER 2018-02-13 21:14 | Inpatient (IN) | payer MEDICARE ==
[2018-02-13] MEDS: HumaLOG INSULIN (NovoLOG) PER UNIT SC (21:00)
[2018-02-13] MEDS: **NOTE PATIENT COMMENT** MISC XX (21:00)
[2018-02-13 22:28] LABS: BASO % 0.5 % (0.0-1.0); EOS # 0.4 10^3/uL (0.0-0.50); EOS % 4.2 % (0.0-3.0); HEMATOCRIT 35.4 % (36.0-47.0); HEMOGLOBIN 10.4 g/dl (12.0-16.0); LYMPH # 1.1 10^3/uL (1.5-4.5); LYMPH % 13.2 % (24.0-44.0); MEAN CORPUSCULAR HEMOGLOBIN 27.2 pg (27.0-33.0); MEAN CORPUSCULAR HGB CONC 29.4 g/dl (32.0-36.5); MEAN CORPUSCULAR VOLUME 92.7 fl (80.0-96.0); MONO # 0.9 10^3/uL (0.0-0.8); MONO % 10.2 % (0.0-5.0); NEUTROPHILS # 5.8 10^3/uL (1.8-7.7); NEUTROPHILS % 69.9 % (36.0-66.0); PLATELET COUNT, AUTOMATED 129 10^3/uL (150-450); RED BLOOD COUNT 3.82 10^6/uL (4.00-5.40); WHITE BLOOD COUNT 8.3 10^3/uL (4.0-10.0)
[2018-02-13 22:46] LABS: ANION GAP 6 MEQ/L (8-16); BLOOD UREA NITROGEN 27 MG/DL (7-18); CARBON DIOXIDE LEVEL 32 MEQ/L (21-32); CHLORIDE LEVEL 98 MEQ/L (98-107); GLOMERULAR FILTRATION RATE 12.9 (>45); GLUCOSE, FASTING 152 MG/DL (70-100); POTASSIUM SERUM 4.2 MEQ/L (3.5-5.1); SODIUM LEVEL 136 MEQ/L (136-145)
[2018-02-13] MEDS: CEFTAROLINE FOSAMIL 200 MG in D5W 50 ML IV (23:00)
[2018-02-13] MEDS ORDERED: ONDANSETRON 4MG/2ML VIAL (J2405) IV (23:30)
[2018-02-13] MEDS ORDERED: GLUCOSE 4 GM CHEW TABLET PO (23:30)
[2018-02-13] MEDS ORDERED: BISACODYL 5 MG TAB PO (23:30)
[2018-02-13] MEDS ORDERED: GLUCAGON FOR INJ 1 MG VIAL (J1610) SC (23:30)
[2018-02-13] MEDS ORDERED: DEXTROSE 50% 50 ML SYRINGE IV (23:30)
[2018-02-13 23:48] LABS: C REACTIVE PROTEIN QUANTITATIV 5.32 MG/DL (0.00-0.30)
[2018-02-14] MEDS ORDERED: LIDOCAINE 5% (LIDODERM) PATCH TD (00:30)
[2018-02-14] MEDS ORDERED: EUCERIN 120GM CREAM TOP (00:30)
[2018-02-14] MEDS ORDERED: ALPRAZolam 0.25 MG TAB PO (00:30)
[2018-02-14] MEDS ORDERED: NITROGLYCERIN 0.4 MG SUBL TABLET SL (00:30)
[2018-02-14] MEDS: traZODone 100 MG TAB PO ×2 (02:34→21:14)
[2018-02-14] MEDS: SIMVASTATIN 20 MG TAB PO ×2 (02:34→21:15)
[2018-02-14] MEDS: HEPARIN SOD (PORCINE) 5000 UNITS/ML VIAL SC ×3 (05:39→21:16)
[2018-02-14] MEDS: LEVOTHYROXINE 100MCG TABLET (0.1MG) PO (05:39)
[2018-02-14 06:21] LABS: HEMOGLOBIN 9.6 g/dl (12.0-16.0); MEAN CORPUSCULAR HEMOGLOBIN 26.3 pg (27.0-33.0); MEAN CORPUSCULAR HGB CONC 28.2 g/dl (32.0-36.5); MEAN CORPUSCULAR VOLUME 93.2 fl (80.0-96.0); PLATELET COUNT, AUTOMATED 123 10^3/uL (150-450); RED BLOOD COUNT 3.65 10^6/uL (4.00-5.40); RED CELL DISTRIBUTION WIDTH 19.9 % (11.5-14.5); WHITE BLOOD COUNT 7.6 10^3/uL (4.0-10.0)
[2018-02-14 06:37] LABS: ANION GAP 7 MEQ/L (8-16); BLOOD UREA NITROGEN 32 MG/DL (7-18); CALCIUM LEVEL 7.5 MG/DL (8.8-10.2); CARBON DIOXIDE LEVEL 29 MEQ/L (21-32); CHLORIDE LEVEL 101 MEQ/L (98-107); CREATININE FOR GFR 4.21 MG/DL (0.55-1.30); GLOMERULAR FILTRATION RATE 11.1 (>45); GLUCOSE, FASTING 125 MG/DL (70-100); POTASSIUM SERUM 4.3 MEQ/L (3.5-5.1); SODIUM LEVEL 137 MEQ/L (136-145)
[2018-02-14] MEDS: GABAPENTIN 300 MG CAP PO ×2 (08:13→21:16)
[2018-02-14] MEDS: CALCIUM CARBONATE 500 MG CHEW U/D PO ×3 (08:13→18:37)
[2018-02-14] MEDS: TORSEMIDE 100 MG TAB PO ×2 (08:14→21:16)
[2018-02-14] MEDS: HumaLOG INSULIN (NovoLOG) PER UNIT SC ×4 (08:15→20:53)
[2018-02-14] MEDS: DULoxetine 30 MG CAP (CYMBALTA) PO (08:15)
[2018-02-14] MEDS: METOPROLOL SUCC (TopROL XL) 50MG **XL** TAB PO ×2 (08:16→21:15)
[2018-02-14] MEDS: rOPINIRole 1MG TAB PO ×2 (08:16→21:16)
[2018-02-14] MEDS: LEVEMIR (INSULIN DETEMIR) 1 UNITS/0.01ML SC ×2 (08:17→21:17)
[2018-02-14] MEDS: PANTOPRAZOLE 40MG TAB (PROTONIX) PO (08:17)
[2018-02-14] MEDS: CLOPIDOGREL 75 MG TAB PO (08:17)
[2018-02-14] MEDS: ACETAMINOPHEN TAB 650MG DOSE (2X325MG) PO (09:17)
[2018-02-14 11:41] LABS: BEDSIDE GLUCOSE 198 MG/DL (80-115)
[2018-02-14] MEDS: CEFTAROLINE FOSAMIL 200 MG in D5W 50 ML IV ×2 (11:51→23:17)
[2018-02-14] MEDS: NORCO, ANEXSIA 5/325MG TABLET (HYDROcodone/ACETAMINOPHEN) PO ×2 (12:10→19:19)
[2018-02-14 16:59] LABS: BEDSIDE GLUCOSE 190 MG/DL (80-115)
[2018-02-14] MEDS: **NOTE PATIENT COMMENT** MISC XX (21:00)
[2018-02-14] MEDS: EZETIMIBE 10 MG TAB (ZETIA) PO (21:16)
[2018-02-15] MEDS: NORCO, ANEXSIA 5/325MG TABLET (HYDROcodone/ACETAMINOPHEN) PO ×2 (00:28→12:30)
[2018-02-15 03:01] LABS: BEDSIDE GLUCOSE 249 MG/DL (80-115)
[2018-02-15] MEDS: rOPINIRole 1MG TAB PO (05:47)
[2018-02-15] MEDS: HEPARIN SOD (PORCINE) 5000 UNITS/ML VIAL SC ×2 (05:48→14:01)
[2018-02-15] MEDS: PANTOPRAZOLE 40MG TAB (PROTONIX) PO (05:48)
[2018-02-15] MEDS: DULoxetine 30 MG CAP (CYMBALTA) PO (05:48)
[2018-02-15] MEDS: TORSEMIDE 100 MG TAB PO (05:48)
[2018-02-15] MEDS: METOPROLOL SUCC (TopROL XL) 50MG **XL** TAB PO (05:49)
[2018-02-15] MEDS: GABAPENTIN 300 MG CAP PO (05:49)
[2018-02-15] MEDS: CLOPIDOGREL 75 MG TAB PO (05:49)
[2018-02-15] MEDS: LEVOTHYROXINE 100MCG TABLET (0.1MG) PO (05:50)
[2018-02-15] MEDS: CALCIUM CARBONATE 500 MG CHEW U/D PO ×3 (05:51→16:56)
[2018-02-15 06:40] LABS: HEMATOCRIT 34.3 % (36.0-47.0); HEMOGLOBIN 9.9 g/dl (12.0-16.0); MEAN CORPUSCULAR HGB CONC 28.9 g/dl (32.0-36.5); MEAN CORPUSCULAR VOLUME 93.5 fl (80.0-96.0); PLATELET COUNT, AUTOMATED 118 10^3/uL (150-450); RED BLOOD COUNT 3.67 10^6/uL (4.00-5.40); RED CELL DISTRIBUTION WIDTH 20.3 % (11.5-14.5); WHITE BLOOD COUNT 7.2 10^3/uL (4.0-10.0)
[2018-02-15 06:55] LABS: ANION GAP 7 MEQ/L (8-16); BLOOD UREA NITROGEN 54 MG/DL (7-18); CALCIUM LEVEL 7.4 MG/DL (8.8-10.2); CARBON DIOXIDE LEVEL 28 MEQ/L (21-32); CHLORIDE LEVEL 101 MEQ/L (98-107); CREATININE FOR GFR 5.62 MG/DL (0.55-1.30); GLUCOSE, FASTING 101 MG/DL (70-100); POTASSIUM SERUM 4.8 MEQ/L (3.5-5.1); SODIUM LEVEL 136 MEQ/L (136-145)
[2018-02-15] MEDS: HumaLOG INSULIN (NovoLOG) PER UNIT SC ×3 (07:36→16:57)
[2018-02-15] MEDS: LEVEMIR (INSULIN DETEMIR) 1 UNITS/0.01ML SC (07:43)
[2018-02-15] MEDS: HEPARIN 1,000 UNITS/ML 10ML VIAL (FOR RADIOLOGY& DIALYSIS ONLY) IV (11:15)
[2018-02-15] MEDS: LIDOCAINE 1% SDV 5 ML VIAL SQ (11:15)
[2018-02-15 12:30] LABS: BEDSIDE GLUCOSE 111 MG/DL (80-115)
[2018-02-15] MEDS: CEFTAROLINE FOSAMIL 200 MG in D5W 50 ML IV (12:43)
[2018-02-15 17:06] LABS: BEDSIDE GLUCOSE 210 MG/DL (80-115)
== END 2018-02-15 17:11 | DRG 602 ==
LOC: M ED INP 21:15 → M MSPAV 02-14 02:02 → M ED 21:14
PROC: 5A1D70Z Performance of Urinary Filtration, Intermittent, Less than 6 Hours Per Day (ICD-10-PCS; principal; 2018-02-15)
DX: L03.116 Cellulitis of left lower limb (principal); N18.6 End stage renal disease; I50.32 Chronic diastolic (congestive) heart failure; I13.11 Hypertensive heart and chronic kidney disease without heart failure, with stage 5 chronic kidney disease, or end stage renal disease; I25.10 Atherosclerotic heart disease of native coronary artery without angina pectoris; E11.319 Type 2 diabetes mellitus with unspecified diabetic retinopathy without macular edema; Z79.4 Long term (current) use of insulin; E03.9 Hypothyroidism, unspecified; E78.5 Hyperlipidemia, unspecified; G47.33 Obstructive sleep apnea (adult) (pediatric); Z79.899 Other long term (current) drug therapy; Z88.1 Allergy status to other antibiotic agents; Z88.8 Allergy status to other drugs, medicaments and biological substances; E11.40 Type 2 diabetes mellitus with diabetic neuropathy, unspecified; Z91.19 Patient's noncompliance with other medical treatment and regimen; G25.81 Restless legs syndrome; D63.1 Anemia in chronic kidney disease; F32.9 Major depressive disorder, single episode, unspecified; Z89.432 Acquired absence of left foot; E66.01 Morbid (severe) obesity due to excess calories; B95.62 Methicillin resistant Staphylococcus aureus infection as the cause of diseases classified elsewhere; Z68.36 Body mass index [BMI] 36.0-36.9, adult

== ENCOUNTER 2018-02-15 17:17 | Inpatient (IN) | payer MEDICARE ==
[2018-02-15] MEDS: ACETAMINOPHEN 500 MG TAB PO ×2 (16:00→21:42)
[2018-02-15] MEDS: TORSEMIDE 100 MG TAB PO (17:00)
[~2018-02-15 17:17] MED LIST changes: -/ESCI20TA PO; -/PANT40TA PO; -/ROPI1TA PO; -AMIT50TA4 PO; -AMLO5TAB2 PO; -ASPI1TAB PO; -ATRO1OPD PO; -BACL10TA2 PO; +BISACODYL 10 MG SUPP PR; -CALC0.5C6 PO; -CALC1CAP31 PO; -CALC1TAB17 PO; -CALCTAB74 PO; -CEPH500C PO; -CIPR-249 PO; -CLIN150C14 PO; -CLON-412 PO; -CLON0.2T PO; -COLA50CA3 PO; -CYCL10TA PO; -DEMA20TA6 PO; +DEXTROSE 50% 50 ML SYRINGE IV; -DOXY100T2 PO; -DRIS50002 PO; -DULO1CAP2 PO; -DULO30CA PO; -ENAL20TA PO; +EUCERIN 120GM CREAM TOP; -FERR1TAB8 PO; +FLEET ENEMA PR; -GABA-279 PO; -GABA-282 PO; +GLUCAGON FOR INJ 1 MG VIAL (J1610) SC; +GLUCOSE 4 GM CHEW TABLET PO; -HUMA100I5 SQ; -HYDR-3363 PO; -HYDR-3713; -HYDR-3716 PO; -HYDR-3910 PO; -HYDR-3911 PO; -INSUDET SC; -INSUHUMDS SC; -INSULADS INJ; -INSULADS SC; -INSULANT SC; -LASI40TA PO; -LEVO88TA3 PO; -LIDO5DIS41 TD; -LIDO5TD TD; +LIDOCAINE 5% (LIDODERM) PATCH TD; -LOPR1TAB6 PO; -LOSA50TA20 PO; -METF-414 PO; -METO1TAB33 PO; -METO50TA7 PO; -MICR10CA PO; +MIRALAX *UNIT DOSE* 17GM PACKET PO; +MOM 30ML SUSPENSION UDC PO; -MORP1SOL PO; -NITR0.4S14 SL; -NITR2PA TD; +NITROGLYCERIN 0.4 MG SUBL TABLET SL; -NORT10CA2 PO; -NYST-6 TOP; -NYST10CR TOP; -ONDA4TAB5 PO; +ONDANSETRON 4MG/2ML VIAL (J2405) IM; -OXYC1TAB23 PO; -OXYCOD/APAP; -PANT40TA2 PO; -PERC5TAB12 PO; -PERCOCET PO; -PLAV1TAB2 PO; -REQU2TAB3 PO; -ROCA0.5C PO; -ROPI3TAB PO; -SIMV20TA2 PO; -SPIR25TA2 PO; -SYNT100T PO; -SYNT88TA2 PO; -TOPR25TA PO; -TOPR50TA PO; -TORS100T PO; -TORS20TA2 PO; -TOUJ1.2I SC; -TRAM50TA2 PO; -TRAZ-136 PO; -TRAZ50TA11 PO; -TUMS500C PO; -TYLE325T5 PO; -VICO7.5T11 PO; -VITA100066 PO; -VITA2000 PO; -VITA200015 PO; -VYTO10TA22 PO; -VYTO10TA41 PO; -ZETI10TA30 PO; -ZOFR8TAB PO; -plavix
[2018-02-15] MEDS: CALCIUM CARBONATE 500 MG CHEW U/D PO (17:30)
[2018-02-15] MEDS: HumaLOG INSULIN (NovoLOG) PER UNIT SC ×2 (17:30→21:00)
[2018-02-15] MEDS: **NOTE PATIENT COMMENT** MISC XX (21:00)
[2018-02-15] MEDS: LEVEMIR (INSULIN DETEMIR) 1 UNITS/0.01ML SC (21:41)
[2018-02-15] MEDS: HEPARIN SOD (PORCINE) 5000 UNITS/ML VIAL SC (21:41)
[2018-02-15] MEDS: traZODone 100 MG TAB PO (21:42)
[2018-02-15] MEDS: EZETIMIBE 10 MG TAB (ZETIA) PO (21:42)
[2018-02-15] MEDS: SIMVASTATIN 20 MG TAB PO (21:42)
[2018-02-15] MEDS: CALCIUM/VITAMIN D 500 MG TAB PO (21:42)
[2018-02-15] MEDS: rOPINIRole 1MG TAB PO (21:42)
[2018-02-15] MEDS: GABAPENTIN 100 MG CAP PO (21:43)
[2018-02-15] MEDS: METOPROLOL SUCC (TopROL XL) 50MG **XL** TAB PO (21:45)
[2018-02-15] MEDS: CEFTAROLINE FOSAMIL 200 MG in D5W 50 ML IV (21:46)
[2018-02-15 22:54] LABS: BEDSIDE GLUCOSE 225 MG/DL (80-115)
[2018-02-16] MEDS: HEPARIN SOD (PORCINE) 5000 UNITS/ML VIAL SC ×3 (05:46→20:59)
[2018-02-16] MEDS: LEVOTHYROXINE 100MCG TABLET (0.1MG) PO (05:46)
[2018-02-16 06:04] LABS: BEDSIDE GLUCOSE 106 MG/DL (80-115)
[2018-02-16 07:09] LABS: BASO % 0.4 % (0.0-1.0); EOS # 0.5 10^3/uL (0.0-0.50); EOS % 6.8 % (0.0-3.0); HEMATOCRIT 34.3 % (36.0-47.0); HEMOGLOBIN 9.8 g/dl (12.0-16.0); IMMATURE GRANULOCYTE % 1.6 % (0-3.0); LYMPH # 1.1 10^3/uL (1.5-4.5); LYMPH % 16.6 % (24.0-44.0); MEAN CORPUSCULAR HEMOGLOBIN 26.6 pg (27.0-33.0); MEAN CORPUSCULAR HGB CONC 28.6 g/dl (32.0-36.5); MONO # 0.8 10^3/uL (0.0-0.8); MONO % 11.6 % (0.0-5.0); NEUTROPHILS # 4.2 10^3/uL (1.8-7.7); PLATELET COUNT, AUTOMATED 110 10^3/uL (150-450); RED BLOOD COUNT 3.69 10^6/uL (4.00-5.40); RED CELL DISTRIBUTION WIDTH 20.3 % (11.5-14.5); WHITE BLOOD COUNT 6.7 10^3/uL (4.0-10.0)
[2018-02-16 07:27] LABS: ALBUMIN 2.5 GM/DL (3.2-5.2); ALBUMIN/GLOBULIN RATIO 0.89 (1.00-1.93); ALKALINE PHOSPHATASE 370 U/L (45-117); ALT/SGPT 72 U/L (12-78); ANION GAP 8 MEQ/L (8-16); AST/SGOT 76 U/L (7-37); BILIRUBIN,TOTAL 0.4 MG/DL (0.2-1.0); BLOOD UREA NITROGEN 52 MG/DL (7-18); CALCIUM LEVEL 7.3 MG/DL (8.8-10.2); CARBON DIOXIDE LEVEL 28 MEQ/L (21-32); CHLORIDE LEVEL 104 MEQ/L (98-107); GLOMERULAR FILTRATION RATE 8.9 (>45); GLUCOSE, FASTING 92 MG/DL (70-100); POTASSIUM SERUM 4.5 MEQ/L (3.5-5.1); SODIUM LEVEL 140 MEQ/L (136-145); TOTAL PROTEIN 5.3 GM/DL (6.4-8.2)
[2018-02-16] MEDS: HumaLOG INSULIN (NovoLOG) PER UNIT SC ×4 (07:30→21:00)
[2018-02-16] MEDS: CALCIUM CARBONATE 500 MG CHEW U/D PO ×3 (08:00→17:28)
[2018-02-16] MEDS: CEFTAROLINE FOSAMIL 200 MG in D5W 50 ML IV ×2 (09:00→20:57)
[2018-02-16] MEDS: LEVEMIR (INSULIN DETEMIR) 1 UNITS/0.01ML SC ×2 (09:11→20:57)
[2018-02-16] MEDS: DULoxetine 30 MG CAP (CYMBALTA) PO (09:12)
[2018-02-16] MEDS: GABAPENTIN 100 MG CAP PO ×2 (09:12→20:57)
[2018-02-16] MEDS: PANTOPRAZOLE 40MG TAB (PROTONIX) PO (09:12)
[2018-02-16] MEDS: rOPINIRole 1MG TAB PO ×2 (09:12→20:59)
[2018-02-16] MEDS: METOPROLOL SUCC (TopROL XL) 50MG **XL** TAB PO ×2 (09:12→20:58)
[2018-02-16] MEDS: TORSEMIDE 100 MG TAB PO ×2 (09:13→16:58)
[2018-02-16] MEDS: ACETAMINOPHEN 500 MG TAB PO ×3 (09:14→20:58)
[2018-02-16] MEDS: CALCIUM/VITAMIN D 500 MG TAB PO ×2 (09:14→20:59)
[2018-02-16] MEDS: CLOPIDOGREL 75 MG TAB PO (09:15)
[2018-02-16 12:14] LABS: BEDSIDE GLUCOSE 174 MG/DL (80-115)
[2018-02-16] MEDS: EUCERIN 120GM CREAM TOP ×2 (12:42→21:00)
[2018-02-16] MEDS: ONDANSETRON 4 MG TAB (S0181) PO (12:44)
[2018-02-16 16:49] LABS: BEDSIDE GLUCOSE 180 MG/DL (80-115)
[2018-02-16 20:40] LABS: BEDSIDE GLUCOSE 221 MG/DL (80-115)
[2018-02-16] MEDS: traZODone 100 MG TAB PO (20:59)
[2018-02-16] MEDS: EZETIMIBE 10 MG TAB (ZETIA) PO (20:59)
[2018-02-16] MEDS: **NOTE PATIENT COMMENT** MISC XX (20:59)
[2018-02-16] MEDS: SIMVASTATIN 20 MG TAB PO (20:59)
[2018-02-16] MEDS: NORCO, ANEXSIA 5/325MG TABLET (HYDROcodone/ACETAMINOPHEN) PO (23:36)
[2018-02-17] MEDS: HEPARIN SOD (PORCINE) 5000 UNITS/ML VIAL SC ×3 (06:14→21:36)
[2018-02-17] MEDS: LEVOTHYROXINE 100MCG TABLET (0.1MG) PO (06:14)
[2018-02-17 06:26] LABS: BEDSIDE GLUCOSE 115 MG/DL (80-115)
[2018-02-17] MEDS: LEVEMIR (INSULIN DETEMIR) 1 UNITS/0.01ML SC ×2 (09:00→21:35)
[2018-02-17] MEDS: HumaLOG INSULIN (NovoLOG) PER UNIT SC ×4 (09:21→20:50)
[2018-02-17] MEDS: CLOPIDOGREL 75 MG TAB PO (09:22)
[2018-02-17] MEDS: TORSEMIDE 100 MG TAB PO ×2 (09:22→17:00)
[2018-02-17] MEDS: CALCIUM CARBONATE 500 MG CHEW U/D PO ×3 (09:22→17:30)
[2018-02-17] MEDS: CALCIUM/VITAMIN D 500 MG TAB PO ×2 (09:22→21:30)
[2018-02-17] MEDS: DULoxetine 30 MG CAP (CYMBALTA) PO (09:22)
[2018-02-17] MEDS: PANTOPRAZOLE 40MG TAB (PROTONIX) PO (09:22)
[2018-02-17] MEDS: GABAPENTIN 100 MG CAP PO ×2 (09:23→21:31)
[2018-02-17] MEDS: rOPINIRole 1MG TAB PO ×2 (09:23→21:30)
[2018-02-17] MEDS: METOPROLOL SUCC (TopROL XL) 50MG **XL** TAB PO ×2 (09:24→21:30)
[2018-02-17] MEDS: EUCERIN 120GM CREAM TOP ×2 (09:25→21:36)
[2018-02-17] MEDS: ACETAMINOPHEN 500 MG TAB PO ×3 (09:25→21:33)
[2018-02-17] MEDS: CEFTAROLINE FOSAMIL 200 MG in D5W 50 ML IV ×2 (09:54→21:29)
[2018-02-17 12:02] LABS: BEDSIDE GLUCOSE 181 MG/DL (80-115)
[2018-02-17] MEDS: LIDOCAINE 1% SDV 5 ML VIAL SQ (14:00)
[2018-02-17] MEDS: HEPARIN 1,000 UNITS/ML 10ML VIAL (FOR RADIOLOGY& DIALYSIS ONLY) IV (14:00)
[2018-02-17] MEDS: ALPRAZolam 0.25 MG TAB PO (15:42)
[2018-02-17 19:39] LABS: BEDSIDE GLUCOSE 108 MG/DL (80-115)
[2018-02-17] MEDS: **NOTE PATIENT COMMENT** MISC XX (21:00)
[2018-02-17] MEDS: EZETIMIBE 10 MG TAB (ZETIA) PO (21:30)
[2018-02-17] MEDS: traZODone 100 MG TAB PO (21:32)
[2018-02-17] MEDS: SIMVASTATIN 20 MG TAB PO (21:32)
[2018-02-17] MEDS: NORCO, ANEXSIA 5/325MG TABLET (HYDROcodone/ACETAMINOPHEN) PO (23:08)
[2018-02-18] MEDS: CYCLOBENZAPRINE 10 MG TAB PO (00:12)
[2018-02-18] MEDS: MORPHINE 4 MG/ML 1ML VIAL (J2270) IV (01:59)
[2018-02-18] MEDS: LEVOTHYROXINE 100MCG TABLET (0.1MG) PO (06:35)
[2018-02-18] MEDS: HEPARIN SOD (PORCINE) 5000 UNITS/ML VIAL SC ×3 (06:35→21:14)
[2018-02-18 06:52] LABS: ALBUMIN 2.4 GM/DL (3.2-5.2); ALBUMIN/GLOBULIN RATIO 0.83 (1.00-1.93); ALKALINE PHOSPHATASE 335 U/L (45-117); ALT/SGPT 57 U/L (12-78); ANION GAP 7 MEQ/L (8-16); AST/SGOT 39 U/L (7-37); BILIRUBIN,TOTAL 0.3 MG/DL (0.2-1.0); BLOOD UREA NITROGEN 50 MG/DL (7-18); CALCIUM LEVEL 7.8 MG/DL (8.8-10.2); CARBON DIOXIDE LEVEL 30 MEQ/L (21-32); CHLORIDE LEVEL 102 MEQ/L (98-107); CREATININE FOR GFR 4.33 MG/DL (0.55-1.30); GLOMERULAR FILTRATION RATE 10.8 (>45); GLUCOSE, FASTING 149 MG/DL (70-100); MAGNESIUM LEVEL 2.1 MG/DL (1.8-2.4); PHOSPHORUS LEVEL 4.1 MG/DL (2.5-4.9); POTASSIUM SERUM 4.1 MEQ/L (3.5-5.1); SODIUM LEVEL 139 MEQ/L (136-145); TOTAL PROTEIN 5.3 GM/DL (6.4-8.2)
[2018-02-18] MEDS: TORSEMIDE 100 MG TAB PO ×2 (08:18→17:14)
[2018-02-18] MEDS: CEFTAROLINE FOSAMIL 200 MG in D5W 50 ML IV ×2 (08:18→21:15)
[2018-02-18] MEDS: METOPROLOL SUCC (TopROL XL) 50MG **XL** TAB PO ×2 (08:18→21:14)
[2018-02-18] MEDS: CALCIUM/VITAMIN D 500 MG TAB PO ×2 (08:18→21:13)
[2018-02-18] MEDS: PANTOPRAZOLE 40MG TAB (PROTONIX) PO (08:19)
[2018-02-18] MEDS: GABAPENTIN 100 MG CAP PO ×2 (08:19→21:13)
[2018-02-18] MEDS: rOPINIRole 1MG TAB PO ×2 (08:19→21:13)
[2018-02-18] MEDS: DULoxetine 30 MG CAP (CYMBALTA) PO (08:19)
[2018-02-18] MEDS: CALCIUM CARBONATE 500 MG CHEW U/D PO ×3 (08:19→17:14)
[2018-02-18] MEDS: CLOPIDOGREL 75 MG TAB PO (08:19)
[2018-02-18] MEDS: HumaLOG INSULIN (NovoLOG) PER UNIT SC ×4 (08:20→21:16)
[2018-02-18] MEDS: NORCO, ANEXSIA 5/325MG TABLET (HYDROcodone/ACETAMINOPHEN) PO ×2 (08:20→12:43)
[2018-02-18] MEDS: LEVEMIR (INSULIN DETEMIR) 1 UNITS/0.01ML SC ×2 (08:21→21:16)
[2018-02-18] MEDS: EUCERIN 120GM CREAM TOP ×2 (08:21→21:17)
[2018-02-18] MEDS: ACETAMINOPHEN 500 MG TAB PO ×4 (09:00→21:14)
[2018-02-18 11:24] LABS: BEDSIDE GLUCOSE 239 MG/DL (80-115)
[2018-02-18 17:07] LABS: BEDSIDE GLUCOSE 242 MG/DL (80-115)
[2018-02-18 20:28] LABS: BEDSIDE GLUCOSE 348 MG/DL (80-115)
[2018-02-18] MEDS: **NOTE PATIENT COMMENT** MISC XX (21:00)
[2018-02-18] MEDS: traZODone 100 MG TAB PO (21:13)
[2018-02-18] MEDS: EZETIMIBE 10 MG TAB (ZETIA) PO (21:13)
[2018-02-18] MEDS: SIMVASTATIN 20 MG TAB PO (21:13)
[2018-02-19] MEDS: NORCO, ANEXSIA 5/325MG TABLET (HYDROcodone/ACETAMINOPHEN) PO ×2 (00:03→14:17)
[2018-02-19] MEDS: TORSEMIDE 100 MG TAB PO ×2 (05:28→15:56)
[2018-02-19] MEDS: HEPARIN SOD (PORCINE) 5000 UNITS/ML VIAL SC ×3 (05:28→21:53)
[2018-02-19] MEDS: LEVOTHYROXINE 100MCG TABLET (0.1MG) PO (05:29)
[2018-02-19 08:09] LABS: BEDSIDE GLUCOSE 180 MG/DL (80-115)
[2018-02-19] MEDS: GABAPENTIN 100 MG CAP PO ×2 (08:12→21:53)
[2018-02-19] MEDS: CEFTAROLINE FOSAMIL 200 MG in D5W 50 ML IV ×2 (08:12→21:54)
[2018-02-19] MEDS: rOPINIRole 1MG TAB PO ×2 (08:12→21:53)
[2018-02-19] MEDS: CALCIUM CARBONATE 500 MG CHEW U/D PO ×3 (08:12→15:56)
[2018-02-19] MEDS: METOPROLOL SUCC (TopROL XL) 50MG **XL** TAB PO ×2 (08:13→21:54)
[2018-02-19] MEDS: CLOPIDOGREL 75 MG TAB PO (08:13)
[2018-02-19] MEDS: CALCIUM/VITAMIN D 500 MG TAB PO ×2 (08:14→21:52)
[2018-02-19] MEDS: PANTOPRAZOLE 40MG TAB (PROTONIX) PO (08:14)
[2018-02-19] MEDS: DULoxetine 30 MG CAP (CYMBALTA) PO (08:14)
[2018-02-19] MEDS: HumaLOG INSULIN (NovoLOG) PER UNIT SC ×4 (08:14→21:56)
[2018-02-19] MEDS: ACETAMINOPHEN 500 MG TAB PO ×3 (08:14→21:52)
[2018-02-19] MEDS: EUCERIN 120GM CREAM TOP ×2 (08:15→21:54)
[2018-02-19] MEDS: LEVEMIR (INSULIN DETEMIR) 1 UNITS/0.01ML SC ×2 (08:15→21:56)
[2018-02-19] MEDS: ONDANSETRON 4 MG TAB (S0181) PO (08:59)
[2018-02-19 12:26] LABS: BEDSIDE GLUCOSE 166 MG/DL (80-115)
[2018-02-19] MEDS: ALPRAZolam 0.25 MG TAB PO (15:56)
[2018-02-19] MEDS: CYCLOBENZAPRINE 10 MG TAB PO (15:56)
[2018-02-19 17:06] LABS: BEDSIDE GLUCOSE 233 MG/DL (80-115)
[2018-02-19] MEDS: **NOTE PATIENT COMMENT** MISC XX (21:00)
[2018-02-19 21:34] LABS: BEDSIDE GLUCOSE 273 MG/DL (80-115)
[2018-02-19] MEDS: EZETIMIBE 10 MG TAB (ZETIA) PO (21:52)
[2018-02-19] MEDS: traZODone 100 MG TAB PO (21:53)
[2018-02-19] MEDS: SIMVASTATIN 20 MG TAB PO (21:53)
[2018-02-20] MEDS: CALCIUM CARBONATE 500 MG CHEW U/D PO ×3 (06:30→21:41)
[2018-02-20] MEDS: LEVOTHYROXINE 100MCG TABLET (0.1MG) PO (06:31)
[2018-02-20] MEDS: HEPARIN SOD (PORCINE) 5000 UNITS/ML VIAL SC ×3 (06:31→21:31)
[2018-02-20 06:44] LABS: BEDSIDE GLUCOSE 216 MG/DL (80-115)
[2018-02-20] MEDS: HumaLOG INSULIN (NovoLOG) PER UNIT SC ×4 (06:54→21:00)
[2018-02-20] MEDS: CEFTAROLINE FOSAMIL 200 MG in D5W 50 ML IV (08:26)
[2018-02-20] MEDS: rOPINIRole 1MG TAB PO ×2 (08:26→21:30)
[2018-02-20] MEDS: GABAPENTIN 100 MG CAP PO ×2 (08:26→21:31)
[2018-02-20] MEDS: CLOPIDOGREL 75 MG TAB PO (08:26)
[2018-02-20] MEDS: CALCIUM/VITAMIN D 500 MG TAB PO ×2 (08:26→21:31)
[2018-02-20] MEDS: TORSEMIDE 100 MG TAB PO ×2 (08:27→21:40)
[2018-02-20] MEDS: DULoxetine 30 MG CAP (CYMBALTA) PO (08:27)
[2018-02-20] MEDS: ACETAMINOPHEN 500 MG TAB PO ×3 (08:27→21:31)
[2018-02-20] MEDS: PANTOPRAZOLE 40MG TAB (PROTONIX) PO (08:27)
[2018-02-20] MEDS: METOPROLOL SUCC (TopROL XL) 50MG **XL** TAB PO ×2 (08:27→21:33)
[2018-02-20] MEDS: EUCERIN 120GM CREAM TOP ×2 (08:28→21:00)
[2018-02-20] MEDS: LEVEMIR (INSULIN DETEMIR) 1 UNITS/0.01ML SC ×2 (08:29→21:33)
[2018-02-20] MEDS: HEPARIN 1,000 UNITS/ML 10ML VIAL (FOR RADIOLOGY& DIALYSIS ONLY) IV (11:00)
[2018-02-20] MEDS: LIDOCAINE 1% SDV 5 ML VIAL SQ (11:00)
[2018-02-20 11:24] LABS: BEDSIDE GLUCOSE 242 MG/DL (80-115)
[2018-02-20 11:26] LABS: PTH INTACT 192.6 PG/ML (18.5-88.0)
[2018-02-20] MEDS: LACTOBACILLUS ACIDOPHILUS CAP (BACID) PO ×2 (13:37→21:31)
[2018-02-20] MEDS: NORCO, ANEXSIA 5/325MG TABLET (HYDROcodone/ACETAMINOPHEN) PO ×2 (13:38→23:29)
[2018-02-20] MEDS: LINEZOLID 600MG TABLET (ZYVOX) PO ×2 (13:46→21:32)
[2018-02-20] MEDS: ALPRAZolam 0.25 MG TAB PO (15:39)
[2018-02-20 16:25] LABS: BASO % 0.5 % (0.0-1.0); EOS # 0.3 10^3/uL (0.0-0.50); EOS % 4.1 % (0.0-3.0); HEMATOCRIT 30.7 % (36.0-47.0); HEMOGLOBIN 9.1 g/dl (12.0-16.0); IMMATURE GRANULOCYTE % 0.9 % (0-3.0); LYMPH # 0.9 10^3/uL (1.5-4.5); LYMPH % 14.5 % (24.0-44.0); MEAN CORPUSCULAR HEMOGLOBIN 26.8 pg (27.0-33.0); MEAN CORPUSCULAR HGB CONC 29.6 g/dl (32.0-36.5); MEAN CORPUSCULAR VOLUME 90.3 fl (80.0-96.0); MONO # 0.6 10^3/uL (0.0-0.8); MONO % 9.4 % (0.0-5.0); NEUTROPHILS # 4.5 10^3/uL (1.8-7.7); NEUTROPHILS % 70.6 % (36.0-66.0); PLATELET COUNT, AUTOMATED 113 10^3/uL (150-450); RED CELL DISTRIBUTION WIDTH 19.5 % (11.5-14.5); WHITE BLOOD COUNT 6.4 10^3/uL (4.0-10.0)
[2018-02-20 16:45] LABS: ALBUMIN 2.7 GM/DL (3.2-5.2); ANION GAP 10 MEQ/L (8-16); BLOOD UREA NITROGEN 101 MG/DL (7-18); CALCIUM LEVEL 8.1 MG/DL (8.8-10.2); CARBON DIOXIDE LEVEL 24 MEQ/L (21-32); CHLORIDE LEVEL 102 MEQ/L (98-107); CREATININE FOR GFR 6.35 MG/DL (0.55-1.30); GLOMERULAR FILTRATION RATE 6.9 (>45); GLUCOSE, FASTING 212 MG/DL (70-100); PHOSPHORUS LEVEL 5.5 MG/DL (2.5-4.9); SODIUM LEVEL 136 MEQ/L (136-145)
[2018-02-20 17:08] LABS: POTASSIUM SERUM 5.2 MEQ/L (3.5-5.1)
[2018-02-20] MEDS: **NOTE PATIENT COMMENT** MISC XX (21:00)
[2018-02-20 21:06] LABS: BEDSIDE GLUCOSE 75 MG/DL (80-115)
[2018-02-20] MEDS: traZODone 100 MG TAB PO (21:30)
[2018-02-20] MEDS: SIMVASTATIN 20 MG TAB PO (21:31)
[2018-02-20] MEDS: EZETIMIBE 10 MG TAB (ZETIA) PO (21:31)
[2018-02-21] MEDS: CYCLOBENZAPRINE 10 MG TAB PO (00:58)
[2018-02-21] MEDS: HEPARIN SOD (PORCINE) 5000 UNITS/ML VIAL SC (06:20)
[2018-02-21] MEDS: LEVOTHYROXINE 100MCG TABLET (0.1MG) PO (06:20)
[2018-02-21 06:38] LABS: BEDSIDE GLUCOSE 230 MG/DL (80-115)
[2018-02-21] MEDS: HumaLOG INSULIN (NovoLOG) PER UNIT SC (08:56)
[2018-02-21] MEDS: LEVEMIR (INSULIN DETEMIR) 1 UNITS/0.01ML SC (08:57)
[2018-02-21] MEDS: LACTOBACILLUS ACIDOPHILUS CAP (BACID) PO (08:57)
[2018-02-21] MEDS: rOPINIRole 1MG TAB PO (08:57)
[2018-02-21] MEDS: ACETAMINOPHEN 500 MG TAB PO (08:58)
[2018-02-21] MEDS: CALCIUM/VITAMIN D 500 MG TAB PO (08:58)
[2018-02-21] MEDS: CALCIUM CARBONATE 500 MG CHEW U/D PO (08:58)
[2018-02-21] MEDS: LINEZOLID 600MG TABLET (ZYVOX) PO (08:58)
[2018-02-21] MEDS: METOPROLOL SUCC (TopROL XL) 50MG **XL** TAB PO (08:58)
[2018-02-21] MEDS: GABAPENTIN 100 MG CAP PO (08:58)
[2018-02-21] MEDS: CLOPIDOGREL 75 MG TAB PO (08:59)
[2018-02-21] MEDS: EUCERIN 120GM CREAM TOP (08:59)
[2018-02-21] MEDS: TORSEMIDE 100 MG TAB PO (08:59)
[2018-02-21] MEDS: DULoxetine 30 MG CAP (CYMBALTA) PO (08:59)
[2018-02-21] MEDS: PANTOPRAZOLE 40MG TAB (PROTONIX) PO (08:59)
[2018-02-21] MEDS: NORCO, ANEXSIA 5/325MG TABLET (HYDROcodone/ACETAMINOPHEN) PO (10:38)
[2018-02-22] MEDS ORDERED: ACETAMINOPHEN TAB 650MG DOSE (2X325MG) PO (12:00)
== END 2018-02-21 11:56 | disposition home health service (06) | DRG 602 ==
LOC: M PM&R 17:17
PROVIDERS: Physical Medicine & Rehabilitation
DX: L03.116 Cellulitis of left lower limb (principal); N18.6 End stage renal disease; I50.32 Chronic diastolic (congestive) heart failure; I13.2 Hypertensive heart and chronic kidney disease with heart failure and with stage 5 chronic kidney disease, or end stage renal disease; I25.10 Atherosclerotic heart disease of native coronary artery without angina pectoris; E03.9 Hypothyroidism, unspecified; G47.33 Obstructive sleep apnea (adult) (pediatric); K21.9 Gastro-esophageal reflux disease without esophagitis; F32.9 Major depressive disorder, single episode, unspecified; I25.2 Old myocardial infarction; E11.319 Type 2 diabetes mellitus with unspecified diabetic retinopathy without macular edema; E11.40 Type 2 diabetes mellitus with diabetic neuropathy, unspecified; Z79.899 Other long term (current) drug therapy; Z79.4 Long term (current) use of insulin; E78.5 Hyperlipidemia, unspecified; D63.1 Anemia in chronic kidney disease; Z91.19 Patient's noncompliance with other medical treatment and regimen; E66.9 Obesity, unspecified; Z88.8 Allergy status to other drugs, medicaments and biological substances; Z88.1 Allergy status to other antibiotic agents; G25.81 Restless legs syndrome; Z68.36 Body mass index [BMI] 36.0-36.9, adult

== ENCOUNTER 2018-02-23 15:02 | Inpatient (IN) | payer MEDICARE ==
[2018-02-23 18:31] LABS: BEDSIDE GLUCOSE 132 MG/DL (80-115)
[2018-02-23] MEDS: ONDANSETRON 4MG/2ML VIAL (J2405) IV (18:45)
[2018-02-23] MEDS: MORPHINE 4 MG/ML 1ML VIAL/SYRINGE (J2270) IV (18:46)
[2018-02-23 18:48] LABS: BASO % 0.3 % (0.0-1.0); EOS # 0.4 10^3/uL (0.0-0.50); EOS % 5.5 % (0.0-3.0); HEMATOCRIT 32.1 % (36.0-47.0); HEMOGLOBIN 9.2 g/dl (12.0-15.5); IMMATURE GRANULOCYTE % 0.6 % (0-3.0); LYMPH % 14.9 % (24.0-44.0); MEAN CORPUSCULAR HEMOGLOBIN 26.4 pg (27.0-33.0); MEAN CORPUSCULAR HGB CONC 28.7 g/dl (32.0-36.5); MEAN CORPUSCULAR VOLUME 92.2 fl (80.0-96.0); MONO # 0.7 10^3/uL (0.0-0.8); NEUTROPHILS # 4.6 10^3/uL (1.8-7.7); NEUTROPHILS % 68.7 % (36.0-66.0); PLATELET COUNT, AUTOMATED 153 10^3/uL (150-450); RED BLOOD COUNT 3.48 10^6/uL (4.00-5.40); RED CELL DISTRIBUTION WIDTH 19.4 % (11.5-14.5); WHITE BLOOD COUNT 6.7 10^3/uL (4.0-10.0)
[2018-02-23 19:18] LABS: LACTIC ACID SEPSIS PROTOCOL 1.3 MMOL/L (0.4-2.0)
[2018-02-23 19:19] LABS: ALBUMIN 3.2 GM/DL (3.2-5.2); ALBUMIN/GLOBULIN RATIO 0.97 (1.00-1.93); ALKALINE PHOSPHATASE 363 U/L (45-117); ALT/SGPT 53 U/L (12-78); ANION GAP 8 MEQ/L (8-16); AST/SGOT 28 U/L (7-37); BILIRUBIN,TOTAL 0.4 MG/DL (0.2-1.0); BLOOD UREA NITROGEN 92 MG/DL (7-18); C REACTIVE PROTEIN QUANTITATIV 4.22 MG/DL (0.00-0.30); CALCIUM LEVEL 7.9 MG/DL (8.8-10.2); CARBON DIOXIDE LEVEL 25 MEQ/L (21-32); CHLORIDE LEVEL 105 MEQ/L (98-107); CREATININE FOR GFR 6.47 MG/DL (0.55-1.30); GLOMERULAR FILTRATION RATE 6.8 (>45); GLUCOSE, FASTING 117 MG/DL (70-100); SODIUM LEVEL 138 MEQ/L (136-145); TOTAL PROTEIN 6.5 GM/DL (6.4-8.2)
[2018-02-23 19:39] LABS: POTASSIUM SERUM 5.6 MEQ/L (3.5-5.1)
[2018-02-23 19:42] LABS: ERYTHROCYTE SEDIMENTATION RATE 59 mm/hr (0-30)
[2018-02-23] MEDS ORDERED: GLUCAGON FOR INJ 1 MG VIAL (J1610) SC (22:15)
[2018-02-23] MEDS ORDERED: GLUCOSE 4 GM CHEW TABLET PO (22:15)
[2018-02-23] MEDS: DEXTROSE 50% 50 ML SYRINGE IV (23:00)
[2018-02-23] MEDS: HumaLOG INSULIN (NovoLOG) PER UNIT SC (23:37)
[2018-02-23] MEDS: hydrALAZINE INJ 20 MG/ML VIAL IV (23:57)
[2018-02-23] MEDS: SOD POLYSTYRENE SULFONATE SUSP 15 GM/60 ML UD PO (23:57)
[2018-02-23] MEDS: LACTOBACILLUS ACIDOPHILUS CAP (BACID) PO (23:58)
[2018-02-23] MEDS: CEFTAROLINE FOSAMIL 200 MG in D5W 50 ML IV (23:58)
[2018-02-24] MEDS ORDERED: EUCERIN 120GM CREAM TOP
[2018-02-24] MEDS: traZODone 100 MG TAB PO ×2 (01:01→21:27)
[2018-02-24] MEDS: GABAPENTIN 100 MG CAP PO ×4 (01:02→21:27)
[2018-02-24] MEDS: LEVEMIR (INSULIN DETEMIR) 1 UNITS/0.01ML SC ×3 (01:02→21:28)
[2018-02-24] MEDS: METOPROLOL SUCC (TopROL XL) 50MG **XL** TAB PO ×3 (01:06→21:27)
[2018-02-24] MEDS: PERCOCET 5MG/325MG TAB PO ×3 (01:11→19:49)
[2018-02-24] MEDS: rOPINIRole 1MG TAB PO ×4 (01:18→21:26)
[2018-02-24] MEDS: TORSEMIDE 100 MG TAB PO ×3 (01:18→21:26)
[2018-02-24] MEDS: SIMVASTATIN 20 MG TAB PO ×2 (01:19→21:28)
[2018-02-24] MEDS: NORTRIPTYLINE 10 MG CAP PO ×3 (01:19→21:26)
[2018-02-24] MEDS: HEPARIN SOD (PORCINE) 5000 UNITS/ML VIAL SC ×3 (05:56→21:28)
[2018-02-24 07:36] LABS: HEMATOCRIT 28.3 % (36.0-47.0); MEAN CORPUSCULAR HEMOGLOBIN 25.7 pg (27.0-33.0); MEAN CORPUSCULAR HGB CONC 28.3 g/dl (32.0-36.5); PLATELET COUNT, AUTOMATED 145 10^3/uL (150-450); RED BLOOD COUNT 3.11 10^6/uL (4.00-5.40); RED CELL DISTRIBUTION WIDTH 19.8 % (11.5-14.5); WHITE BLOOD COUNT 5.6 10^3/uL (4.0-10.0)
[2018-02-24 07:39] LABS: BEDSIDE GLUCOSE 148 MG/DL (80-115)
[2018-02-24 07:39] LABS: BEDSIDE GLUCOSE 47 MG/DL (80-115)
[2018-02-24 08:00] LABS: AMMONIA 40 uMOL/L (<32)
[2018-02-24 08:00] LABS: ALBUMIN 2.7 GM/DL (3.2-5.2); ANION GAP 8 MEQ/L (8-16); BLOOD UREA NITROGEN 98 MG/DL (7-18); C REACTIVE PROTEIN QUANTITATIV 4.51 MG/DL (0.00-0.30); CALCIUM LEVEL 7.4 MG/DL (8.8-10.2); CARBON DIOXIDE LEVEL 25 MEQ/L (21-32); CHLORIDE LEVEL 106 MEQ/L (98-107); CREATININE FOR GFR 6.81 MG/DL (0.55-1.30); GLOMERULAR FILTRATION RATE 6.4 (>45); GLUCOSE, FASTING 170 MG/DL (70-100); MAGNESIUM LEVEL 2.5 MG/DL (1.8-2.4); PHOSPHORUS LEVEL 8.3 MG/DL (2.5-4.9); SODIUM LEVEL 139 MEQ/L (136-145)
[2018-02-24 08:01] LABS: POTASSIUM SERUM 5.6 MEQ/L (3.5-5.1)
[2018-02-24] MEDS ORDERED: DARBEPOETIN 100 MCG/0.5 ML *DIALYSIS* SYRINGE (J0882) IV (09:00)
[2018-02-24] MEDS: LIDOCAINE 5% (LIDODERM) PATCH TD (09:00)
[2018-02-24] MEDS ORDERED: IRON SUCROSE 100MG 5ML VIAL (J1756 PER 1MG) IV (09:00)
[2018-02-24 09:06] LABS: TOTAL IRON BINDING CAPACITY 352 UG/DL (250-450)
[2018-02-24 09:26] LABS: FERRITIN 150 NG/ML (8-252)
[2018-02-24] MEDS: HumaLOG INSULIN (NovoLOG) PER UNIT SC ×4 (09:35→21:00)
[2018-02-24] MEDS: DULoxetine 30 MG CAP (CYMBALTA) PO (09:37)
[2018-02-24] MEDS: LEVOTHYROXINE 100MCG TABLET (0.1MG) PO (09:37)
[2018-02-24] MEDS: CLOPIDOGREL 75 MG TAB PO (09:37)
[2018-02-24] MEDS: CALCIUM CARBONATE 500 MG CHEW U/D PO ×3 (09:37→17:52)
[2018-02-24] MEDS: CEFTAROLINE FOSAMIL 200 MG in D5W 50 ML IV ×2 (09:37→21:29)
[2018-02-24] MEDS: LACTOBACILLUS ACIDOPHILUS CAP (BACID) PO ×3 (09:37→21:26)
[2018-02-24] MEDS: PANTOPRAZOLE 40MG TAB (PROTONIX) PO (09:38)
[2018-02-24] MEDS: SOD POLYSTYRENE SULFONATE SUSP 15 GM/60 ML UD PO (09:48)
[2018-02-24] MEDS: ALPRAZolam 0.25 MG TAB PO (10:40)
[2018-02-24 10:44] LABS: IRON (FE) 24 UG/DL (50-170); PERCENT SATURATION 6.8 % (13.2-45.0)
[2018-02-24] MEDS: LIDOCAINE 1% SDV 5 ML VIAL SQ (11:30)
[2018-02-24] MEDS: HEPARIN 1,000 UNITS/ML 10ML VIAL (FOR RADIOLOGY& DIALYSIS ONLY) IV (11:30)
[2018-02-24 14:43] LABS: URIC ACID 9.4 MG/DL (2.6-6.0)
[2018-02-24] MEDS: **NOTE PATIENT COMMENT** MISC XX (21:00)
[2018-02-25] MEDS: PERCOCET 5MG/325MG TAB PO ×4 (02:15→18:04)
[2018-02-25 06:15] LABS: HEMATOCRIT 30.9 % (36.0-47.0); HEMOGLOBIN 8.8 g/dl (12.0-15.5); MEAN CORPUSCULAR HEMOGLOBIN 25.8 pg (27.0-33.0); MEAN CORPUSCULAR HGB CONC 28.5 g/dl (32.0-36.5); MEAN CORPUSCULAR VOLUME 90.6 fl (80.0-96.0); PLATELET COUNT, AUTOMATED 164 10^3/uL (150-450); RED BLOOD COUNT 3.41 10^6/uL (4.00-5.40); RED CELL DISTRIBUTION WIDTH 19.9 % (11.5-14.5); WHITE BLOOD COUNT 5.1 10^3/uL (4.0-10.0)
[2018-02-25 06:28] LABS: ALBUMIN 2.9 GM/DL (3.2-5.2); ANION GAP 8 MEQ/L (8-16); BLOOD UREA NITROGEN 80 MG/DL (7-18); C REACTIVE PROTEIN QUANTITATIV 4.84 MG/DL (0.00-0.30); CALCIUM LEVEL 7.6 MG/DL (8.8-10.2); CARBON DIOXIDE LEVEL 26 MEQ/L (21-32); CHLORIDE LEVEL 106 MEQ/L (98-107); CREATININE FOR GFR 5.91 MG/DL (0.55-1.30); GLOMERULAR FILTRATION RATE 7.5 (>45); GLUCOSE, FASTING 83 MG/DL (70-100); MAGNESIUM LEVEL 2.4 MG/DL (1.8-2.4); PHOSPHORUS LEVEL 7.1 MG/DL (2.5-4.9); POTASSIUM SERUM 4.8 MEQ/L (3.5-5.1); SODIUM LEVEL 140 MEQ/L (136-145)
[2018-02-25] MEDS: CALCIUM CARBONATE 500 MG CHEW U/D PO ×3 (06:42→16:42)
[2018-02-25] MEDS: HEPARIN SOD (PORCINE) 5000 UNITS/ML VIAL SC ×3 (06:42→21:30)
[2018-02-25] MEDS: rOPINIRole 1MG TAB PO ×3 (06:43→21:31)
[2018-02-25] MEDS: LEVOTHYROXINE 100MCG TABLET (0.1MG) PO (06:43)
[2018-02-25] MEDS: CLOPIDOGREL 75 MG TAB PO (06:44)
[2018-02-25] MEDS: PANTOPRAZOLE 40MG TAB (PROTONIX) PO (06:44)
[2018-02-25] MEDS: METOPROLOL SUCC (TopROL XL) 50MG **XL** TAB PO ×2 (06:44→21:32)
[2018-02-25] MEDS: TORSEMIDE 100 MG TAB PO ×2 (06:45→21:31)
[2018-02-25] MEDS: GABAPENTIN 100 MG CAP PO ×3 (06:45→21:31)
[2018-02-25] MEDS: LACTOBACILLUS ACIDOPHILUS CAP (BACID) PO ×3 (06:45→21:31)
[2018-02-25] MEDS: NORTRIPTYLINE 10 MG CAP PO ×2 (06:45→21:31)
[2018-02-25] MEDS: CEFTAROLINE FOSAMIL 200 MG in D5W 50 ML IV (06:46)
[2018-02-25] MEDS: DULoxetine 30 MG CAP (CYMBALTA) PO (06:46)
[2018-02-25] MEDS: HumaLOG INSULIN (NovoLOG) PER UNIT SC ×4 (08:33→21:30)
[2018-02-25 08:45] LABS: BEDSIDE GLUCOSE 216 MG/DL (80-115)
[2018-02-25 08:45] LABS: BEDSIDE GLUCOSE 144 MG/DL (80-115)
[2018-02-25 08:46] LABS: BEDSIDE GLUCOSE 117 MG/DL (80-115)
[2018-02-25] MEDS: LIDOCAINE 5% (LIDODERM) PATCH TD (09:00)
[2018-02-25] MEDS: LEVEMIR (INSULIN DETEMIR) 1 UNITS/0.01ML SC ×2 (10:15→21:30)
[2018-02-25 11:36] LABS: BEDSIDE GLUCOSE 178 MG/DL (80-115)
[2018-02-25] MEDS: methylPREDNISolone INJ 125 MG/2 ML VIAL (J2930) IV (13:02)
[2018-02-25] MEDS: LINEZOLID 600 MG in APPROPRIATE DILUENT 1 EA IV (16:48)
[2018-02-25] MEDS: **NOTE PATIENT COMMENT** MISC XX (21:00)
[2018-02-25] MEDS: SIMVASTATIN 20 MG TAB PO (21:31)
[2018-02-25] MEDS: traZODone 100 MG TAB PO (21:31)
[2018-02-26] MEDS: PERCOCET 5MG/325MG TAB PO ×3 (01:28→17:59)
[2018-02-26] MEDS: LINEZOLID 600 MG in APPROPRIATE DILUENT 1 EA IV ×2 (03:54→17:50)
[2018-02-26] MEDS: HEPARIN SOD (PORCINE) 5000 UNITS/ML VIAL SC ×3 (05:10→21:07)
[2018-02-26 06:20] LABS: HEMATOCRIT 28.6 % (36.0-47.0); HEMOGLOBIN 8.5 g/dl (12.0-15.5); MEAN CORPUSCULAR HEMOGLOBIN 26.6 pg (27.0-33.0); MEAN CORPUSCULAR HGB CONC 29.7 g/dl (32.0-36.5); MEAN CORPUSCULAR VOLUME 89.7 fl (80.0-96.0); PLATELET COUNT, AUTOMATED 148 10^3/uL (150-450); RED BLOOD COUNT 3.19 10^6/uL (4.00-5.40)
[2018-02-26 06:41] LABS: ALBUMIN 2.9 GM/DL (3.2-5.2); ANION GAP 10 MEQ/L (8-16); BLOOD UREA NITROGEN 96 MG/DL (7-18); C REACTIVE PROTEIN QUANTITATIV 4.08 MG/DL (0.00-0.30); CALCIUM LEVEL 7.5 MG/DL (8.8-10.2); CARBON DIOXIDE LEVEL 23 MEQ/L (21-32); CHLORIDE LEVEL 102 MEQ/L (98-107); CREATININE FOR GFR 6.58 MG/DL (0.55-1.30); GLOMERULAR FILTRATION RATE 6.7 (>45); GLUCOSE, FASTING 291 MG/DL (70-100); MAGNESIUM LEVEL 2.1 MG/DL (1.8-2.4); SODIUM LEVEL 135 MEQ/L (136-145)
[2018-02-26 06:43] LABS: POTASSIUM SERUM 5.2 MEQ/L (3.5-5.1)
[2018-02-26] MEDS: NORTRIPTYLINE 10 MG CAP PO ×2 (08:08→21:08)
[2018-02-26] MEDS: PANTOPRAZOLE 40MG TAB (PROTONIX) PO (08:08)
[2018-02-26] MEDS: rOPINIRole 1MG TAB PO ×3 (08:08→21:09)
[2018-02-26] MEDS: LEVOTHYROXINE 100MCG TABLET (0.1MG) PO (08:08)
[2018-02-26] MEDS: GABAPENTIN 100 MG CAP PO ×3 (08:08→21:09)
[2018-02-26] MEDS: DULoxetine 30 MG CAP (CYMBALTA) PO (08:08)
[2018-02-26] MEDS: TORSEMIDE 100 MG TAB PO ×2 (08:08→21:08)
[2018-02-26] MEDS: CALCIUM CARBONATE 500 MG CHEW U/D PO ×3 (08:09→17:49)
[2018-02-26] MEDS: LACTOBACILLUS ACIDOPHILUS CAP (BACID) PO ×3 (08:09→21:09)
[2018-02-26] MEDS: CLOPIDOGREL 75 MG TAB PO (08:09)
[2018-02-26] MEDS: METOPROLOL SUCC (TopROL XL) 50MG **XL** TAB PO ×2 (08:10→21:09)
[2018-02-26] MEDS: LEVEMIR (INSULIN DETEMIR) 1 UNITS/0.01ML SC ×2 (08:10→21:08)
[2018-02-26] MEDS: LIDOCAINE 5% (LIDODERM) PATCH TD (08:11)
[2018-02-26] MEDS: HumaLOG INSULIN (NovoLOG) PER UNIT SC ×4 (08:11→21:08)
[2018-02-26 11:50] LABS: BEDSIDE GLUCOSE 425 MG/DL (80-115)
[2018-02-26 11:50] LABS: BEDSIDE GLUCOSE 264 MG/DL (80-115)
[2018-02-26 12:35] LABS: BEDSIDE GLUCOSE 252 MG/DL (80-115)
[2018-02-26 17:24] LABS: BEDSIDE GLUCOSE 254 MG/DL (80-115)
[2018-02-26] MEDS: **NOTE PATIENT COMMENT** MISC XX (21:00)
[2018-02-26] MEDS: traZODone 100 MG TAB PO (21:10)
[2018-02-26] MEDS: SIMVASTATIN 20 MG TAB PO (21:10)
[2018-02-27] MEDS: LINEZOLID 600 MG in APPROPRIATE DILUENT 1 EA IV (03:46)
[2018-02-27 06:03] LABS: HEMATOCRIT 28.4 % (36.0-47.0); HEMOGLOBIN 8.3 g/dl (12.0-15.5); MEAN CORPUSCULAR HEMOGLOBIN 26.8 pg (27.0-33.0); MEAN CORPUSCULAR HGB CONC 29.2 g/dl (32.0-36.5); MEAN CORPUSCULAR VOLUME 91.6 fl (80.0-96.0); PLATELET COUNT, AUTOMATED 152 10^3/uL (150-450); RED CELL DISTRIBUTION WIDTH 19.4 % (11.5-14.5); WHITE BLOOD COUNT 6.8 10^3/uL (4.0-10.0)
[2018-02-27] MEDS: HEPARIN SOD (PORCINE) 5000 UNITS/ML VIAL SC ×3 (06:05→21:29)
[2018-02-27] MEDS: LACTOBACILLUS ACIDOPHILUS CAP (BACID) PO ×3 (06:05→21:32)
[2018-02-27] MEDS: GABAPENTIN 100 MG CAP PO ×3 (06:05→21:31)
[2018-02-27] MEDS: CALCIUM CARBONATE 500 MG CHEW U/D PO ×3 (06:05→17:51)
[2018-02-27] MEDS: TORSEMIDE 100 MG TAB PO ×2 (06:06→21:32)
[2018-02-27] MEDS: PANTOPRAZOLE 40MG TAB (PROTONIX) PO (06:06)
[2018-02-27] MEDS: LEVOTHYROXINE 100MCG TABLET (0.1MG) PO (06:06)
[2018-02-27] MEDS: NORTRIPTYLINE 10 MG CAP PO ×2 (06:06→21:32)
[2018-02-27] MEDS: CLOPIDOGREL 75 MG TAB PO (06:06)
[2018-02-27] MEDS: rOPINIRole 1MG TAB PO ×3 (06:08→21:32)
[2018-02-27] MEDS: METOPROLOL SUCC (TopROL XL) 50MG **XL** TAB PO ×2 (06:08→21:31)
[2018-02-27] MEDS: DULoxetine 30 MG CAP (CYMBALTA) PO (06:09)
[2018-02-27 06:22] LABS: ALBUMIN 2.9 GM/DL (3.2-5.2); ANION GAP 11 MEQ/L (8-16); BLOOD UREA NITROGEN 113 MG/DL (7-18); C REACTIVE PROTEIN QUANTITATIV 2.64 MG/DL (0.00-0.30); CALCIUM LEVEL 7.4 MG/DL (8.8-10.2); CARBON DIOXIDE LEVEL 22 MEQ/L (21-32); CHLORIDE LEVEL 100 MEQ/L (98-107); CREATININE FOR GFR 7.09 MG/DL (0.55-1.30); GLOMERULAR FILTRATION RATE 6.1 (>45); GLUCOSE, FASTING 161 MG/DL (70-100); MAGNESIUM LEVEL 2.3 MG/DL (1.8-2.4); PHOSPHORUS LEVEL 8.1 MG/DL (2.5-4.9); POTASSIUM SERUM 4.8 MEQ/L (3.5-5.1); SODIUM LEVEL 133 MEQ/L (136-145)
[2018-02-27] MEDS: PERCOCET 5MG/325MG TAB PO ×3 (06:23→22:28)
[2018-02-27] MEDS: ALPRAZolam 0.25 MG TAB PO (07:44)
[2018-02-27] MEDS: HumaLOG INSULIN (NovoLOG) PER UNIT SC ×4 (07:44→21:00)
[2018-02-27] MEDS: LEVEMIR (INSULIN DETEMIR) 1 UNITS/0.01ML SC ×2 (07:47→21:00)
[2018-02-27] MEDS: LIDOCAINE 5% (LIDODERM) PATCH TD (07:48)
[2018-02-27 13:10] LABS: BEDSIDE GLUCOSE 279 MG/DL (80-115)
[2018-02-27] MEDS: LIDOCAINE 1% SDV 5 ML VIAL SQ (13:24)
[2018-02-27] MEDS: HEPARIN 1,000 UNITS/ML 10ML VIAL (FOR RADIOLOGY& DIALYSIS ONLY) IV (13:25)
[2018-02-27 19:52] LABS: BEDSIDE GLUCOSE 171 MG/DL (80-115)
[2018-02-27 19:52] LABS: BEDSIDE GLUCOSE 81 MG/DL (80-115)
[2018-02-27] MEDS: **NOTE PATIENT COMMENT** MISC XX (21:00)
[2018-02-27] MEDS: traZODone 100 MG TAB PO (21:31)
[2018-02-27] MEDS: SIMVASTATIN 20 MG TAB PO (21:32)
[2018-02-27] MEDS: CYCLOBENZAPRINE 10 MG TAB PO (22:30)
[2018-02-28] MEDS: HEPARIN SOD (PORCINE) 5000 UNITS/ML VIAL SC ×3 (05:21→21:57)
[2018-02-28 07:08] LABS: BEDSIDE GLUCOSE 154 MG/DL (80-115)
[2018-02-28 07:16] LABS: HEMATOCRIT 28.5 % (36.0-47.0); HEMOGLOBIN 7.9 g/dl (12.0-15.5); MEAN CORPUSCULAR HEMOGLOBIN 26.2 pg (27.0-33.0); MEAN CORPUSCULAR HGB CONC 27.7 g/dl (32.0-36.5); MEAN CORPUSCULAR VOLUME 94.4 fl (80.0-96.0); PLATELET COUNT, AUTOMATED 130 10^3/uL (150-450); RED BLOOD COUNT 3.02 10^6/uL (4.00-5.40); RED CELL DISTRIBUTION WIDTH 19.5 % (11.5-14.5)
[2018-02-28 07:26] LABS: ALBUMIN 2.4 GM/DL (3.2-5.2); ANION GAP 7 MEQ/L (8-16); BLOOD UREA NITROGEN 69 MG/DL (7-18); C REACTIVE PROTEIN QUANTITATIV 2.01 MG/DL (0.00-0.30); CALCIUM LEVEL 7.1 MG/DL (8.8-10.2); CARBON DIOXIDE LEVEL 26 MEQ/L (21-32); CHLORIDE LEVEL 104 MEQ/L (98-107); CREATININE FOR GFR 5.13 MG/DL (0.55-1.30); GLOMERULAR FILTRATION RATE 8.9 (>45); GLUCOSE, FASTING 180 MG/DL (70-100); PHOSPHORUS LEVEL 6.6 MG/DL (2.5-4.9); POTASSIUM SERUM 4.3 MEQ/L (3.5-5.1); SODIUM LEVEL 137 MEQ/L (136-145)
[2018-02-28] MEDS: HumaLOG INSULIN (NovoLOG) PER UNIT SC ×4 (08:04→21:00)
[2018-02-28] MEDS: TORSEMIDE 100 MG TAB PO ×2 (08:05→21:53)
[2018-02-28] MEDS: CALCIUM CARBONATE 500 MG CHEW U/D PO ×3 (08:05→17:09)
[2018-02-28] MEDS: LEVOTHYROXINE 100MCG TABLET (0.1MG) PO (08:06)
[2018-02-28] MEDS: DULoxetine 30 MG CAP (CYMBALTA) PO (08:06)
[2018-02-28] MEDS: rOPINIRole 1MG TAB PO ×3 (08:06→21:52)
[2018-02-28] MEDS: LACTOBACILLUS ACIDOPHILUS CAP (BACID) PO ×3 (08:06→21:52)
[2018-02-28] MEDS: NORTRIPTYLINE 10 MG CAP PO ×2 (08:07→21:53)
[2018-02-28] MEDS: PANTOPRAZOLE 40MG TAB (PROTONIX) PO (08:07)
[2018-02-28] MEDS: METOPROLOL SUCC (TopROL XL) 50MG **XL** TAB PO ×2 (08:07→21:54)
[2018-02-28] MEDS: CLOPIDOGREL 75 MG TAB PO (08:07)
[2018-02-28] MEDS: GABAPENTIN 100 MG CAP PO ×3 (08:07→21:53)
[2018-02-28] MEDS: LIDOCAINE 5% (LIDODERM) PATCH TD (08:08)
[2018-02-28] MEDS: LEVEMIR (INSULIN DETEMIR) 1 UNITS/0.01ML SC ×2 (08:08→21:56)
[2018-02-28] MEDS: PERCOCET 5MG/325MG TAB PO ×3 (10:36→22:38)
[2018-02-28 11:58] LABS: BEDSIDE GLUCOSE 197 MG/DL (80-115)
[2018-02-28 18:26] LABS: ERYTHROCYTE SEDIMENTATION RATE 52 mm/hr (0-30)
[2018-02-28 20:42] LABS: BEDSIDE GLUCOSE 250 MG/DL (80-115)
[2018-02-28] MEDS: **NOTE PATIENT COMMENT** MISC XX (21:00)
[2018-02-28] MEDS: SIMVASTATIN 20 MG TAB PO (21:53)
[2018-02-28] MEDS: traZODone 100 MG TAB PO (21:53)
[2018-02-28] MEDS: LINEZOLID 600MG TABLET (ZYVOX) PO (21:54)
[2018-03-01] MEDS: TORSEMIDE 100 MG TAB PO ×2 (06:02→21:21)
[2018-03-01] MEDS: HEPARIN SOD (PORCINE) 5000 UNITS/ML VIAL SC ×3 (06:02→21:21)
[2018-03-01] MEDS: GABAPENTIN 100 MG CAP PO ×3 (06:02→21:19)
[2018-03-01] MEDS: LEVOTHYROXINE 100MCG TABLET (0.1MG) PO (06:02)
[2018-03-01] MEDS: NORTRIPTYLINE 10 MG CAP PO ×2 (06:03→21:21)
[2018-03-01] MEDS: rOPINIRole 1MG TAB PO ×3 (06:03→21:19)
[2018-03-01] MEDS: LACTOBACILLUS ACIDOPHILUS CAP (BACID) PO ×3 (06:03→21:18)
[2018-03-01] MEDS: METOPROLOL SUCC (TopROL XL) 50MG **XL** TAB PO ×2 (06:03→21:20)
[2018-03-01] MEDS: CLOPIDOGREL 75 MG TAB PO (06:04)
[2018-03-01] MEDS: CALCIUM CARBONATE 500 MG CHEW U/D PO ×3 (06:04→18:22)
[2018-03-01] MEDS: ALPRAZolam 0.25 MG TAB PO (06:04)
[2018-03-01] MEDS: LINEZOLID 600MG TABLET (ZYVOX) PO ×2 (06:04→21:19)
[2018-03-01] MEDS: PANTOPRAZOLE 40MG TAB (PROTONIX) PO (06:04)
[2018-03-01] MEDS: PERCOCET 5MG/325MG TAB PO ×2 (06:05→18:23)
[2018-03-01] MEDS: DULoxetine 30 MG CAP (CYMBALTA) PO (06:07)
[2018-03-01] MEDS: CALCIUM ACETATE 667 MG GELCAP PO ×3 (06:07→18:22)
[2018-03-01] MEDS: LIDOCAINE 5% (LIDODERM) PATCH TD (06:08)
[2018-03-01 07:24] LABS: HEMATOCRIT 29.7 % (36.0-47.0); HEMOGLOBIN 8.6 g/dl (12.0-15.5); MEAN CORPUSCULAR HEMOGLOBIN 26.4 pg (27.0-33.0); MEAN CORPUSCULAR VOLUME 91.1 fl (80.0-96.0); PLATELET COUNT, AUTOMATED 138 10^3/uL (150-450); RED BLOOD COUNT 3.26 10^6/uL (4.00-5.40); RED CELL DISTRIBUTION WIDTH 19.4 % (11.5-14.5); WHITE BLOOD COUNT 5.6 10^3/uL (4.0-10.0)
[2018-03-01 07:40] LABS: ALBUMIN 2.9 GM/DL (3.2-5.2); ANION GAP 12 MEQ/L (8-16); BLOOD UREA NITROGEN 88 MG/DL (7-18); C REACTIVE PROTEIN QUANTITATIV 2.16 MG/DL (0.00-0.30); CALCIUM LEVEL 7.1 MG/DL (8.8-10.2); CARBON DIOXIDE LEVEL 23 MEQ/L (21-32); CHLORIDE LEVEL 104 MEQ/L (98-107); CREATININE FOR GFR 6.04 MG/DL (0.55-1.30); GLOMERULAR FILTRATION RATE 7.3 (>45); GLUCOSE, FASTING 193 MG/DL (70-100); MAGNESIUM LEVEL 1.9 MG/DL (1.8-2.4); PHOSPHORUS LEVEL 6.8 MG/DL (2.5-4.9); POTASSIUM SERUM 4.6 MEQ/L (3.5-5.1); SODIUM LEVEL 139 MEQ/L (136-145)
[2018-03-01] MEDS: LEVEMIR (INSULIN DETEMIR) 1 UNITS/0.01ML SC ×2 (09:34→21:22)
[2018-03-01] MEDS: HumaLOG INSULIN (NovoLOG) PER UNIT SC ×4 (09:34→23:08)
[2018-03-01] MEDS: HEPARIN 1,000 UNITS/ML 10ML VIAL (FOR RADIOLOGY& DIALYSIS ONLY) IV (10:45)
[2018-03-01] MEDS: LIDOCAINE 1% SDV 5 ML VIAL SQ (10:45)
[2018-03-01] MEDS: CYCLOBENZAPRINE 10 MG TAB PO (13:30)
[2018-03-01] MEDS: **NOTE PATIENT COMMENT** MISC XX (21:00)
[2018-03-01] MEDS: traZODone 100 MG TAB PO (21:19)
[2018-03-01] MEDS: SIMVASTATIN 20 MG TAB PO (21:22)
[2018-03-02] MEDS: PERCOCET 5MG/325MG TAB PO (00:11)
[2018-03-02] MEDS: HEPARIN SOD (PORCINE) 5000 UNITS/ML VIAL SC ×3 (06:19→21:37)
[2018-03-02 06:24] LABS: HEMATOCRIT 26.2 % (36.0-47.0); HEMOGLOBIN 7.5 g/dl (12.0-15.5); MEAN CORPUSCULAR HGB CONC 28.6 g/dl (32.0-36.5); PLATELET COUNT, AUTOMATED 124 10^3/uL (150-450); RED BLOOD COUNT 2.88 10^6/uL (4.00-5.40); RED CELL DISTRIBUTION WIDTH 18.9 % (11.5-14.5); WHITE BLOOD COUNT 5.5 10^3/uL (4.0-10.0)
[2018-03-02 06:44] LABS: ALBUMIN 2.4 GM/DL (3.2-5.2); ANION GAP 7 MEQ/L (8-16); BLOOD UREA NITROGEN 52 MG/DL (7-18); CALCIUM LEVEL 7.5 MG/DL (8.8-10.2); CARBON DIOXIDE LEVEL 29 MEQ/L (21-32); CHLORIDE LEVEL 104 MEQ/L (98-107); GLOMERULAR FILTRATION RATE 11.2 (>45); GLUCOSE, FASTING 149 MG/DL (70-100); MAGNESIUM LEVEL 1.9 MG/DL (1.8-2.4); PHOSPHORUS LEVEL 4.4 MG/DL (2.5-4.9); SODIUM LEVEL 140 MEQ/L (136-145)
[2018-03-02] MEDS: LEVEMIR (INSULIN DETEMIR) 1 UNITS/0.01ML SC ×2 (07:31→21:40)
[2018-03-02] MEDS: HumaLOG INSULIN (NovoLOG) PER UNIT SC ×4 (07:31→21:40)
[2018-03-02] MEDS: CALCIUM CARBONATE 500 MG CHEW U/D PO ×3 (07:32→16:53)
[2018-03-02] MEDS: LACTOBACILLUS ACIDOPHILUS CAP (BACID) PO ×3 (07:32→21:38)
[2018-03-02] MEDS: TORSEMIDE 100 MG TAB PO ×2 (07:32→21:39)
[2018-03-02] MEDS: CALCIUM ACETATE 667 MG GELCAP PO ×3 (07:32→16:52)
[2018-03-02] MEDS: rOPINIRole 1MG TAB PO ×3 (07:33→21:39)
[2018-03-02] MEDS: GABAPENTIN 100 MG CAP PO ×3 (07:33→21:38)
[2018-03-02] MEDS: DULoxetine 30 MG CAP (CYMBALTA) PO (07:33)
[2018-03-02] MEDS: PANTOPRAZOLE 40MG TAB (PROTONIX) PO (07:33)
[2018-03-02] MEDS: NORTRIPTYLINE 10 MG CAP PO ×2 (07:33→21:38)
[2018-03-02] MEDS: LINEZOLID 600MG TABLET (ZYVOX) PO ×2 (07:34→21:38)
[2018-03-02] MEDS: CLOPIDOGREL 75 MG TAB PO (07:34)
[2018-03-02] MEDS: LIDOCAINE 5% (LIDODERM) PATCH TD (07:34)
[2018-03-02] MEDS: LEVOTHYROXINE 100MCG TABLET (0.1MG) PO (07:34)
[2018-03-02] MEDS: METOPROLOL SUCC (TopROL XL) 50MG **XL** TAB PO ×2 (07:34→21:49)
[2018-03-02] MEDS: ACETAMINOPHEN TAB 650MG DOSE (2X325MG) PO (11:02)
[2018-03-02 13:16] LABS: BEDSIDE GLUCOSE 236 MG/DL (80-115)
[2018-03-02 13:16] LABS: BEDSIDE GLUCOSE 226 MG/DL (80-115)
[2018-03-02 13:17] LABS: BEDSIDE GLUCOSE 148 MG/DL (80-115)
[2018-03-02 13:17] LABS: BEDSIDE GLUCOSE 296 MG/DL (80-115)
[2018-03-02 13:17] LABS: BEDSIDE GLUCOSE 277 MG/DL (80-115)
[2018-03-02] MEDS: oxyCODONE 5MG TAB PO (16:53)
[2018-03-02 17:22] LABS: BEDSIDE GLUCOSE 280 MG/DL (80-115)
[2018-03-02] MEDS: **NOTE PATIENT COMMENT** MISC XX (21:00)
[2018-03-02] MEDS: SIMVASTATIN 20 MG TAB PO (21:38)
[2018-03-02] MEDS: traZODone 100 MG TAB PO (21:39)
[2018-03-02 21:47] LABS: BEDSIDE GLUCOSE 364 MG/DL (80-115)
[2018-03-03] MEDS: CALCIUM CARBONATE 500 MG CHEW U/D PO ×3 (06:13→17:48)
[2018-03-03] MEDS: PERCOCET 5MG/325MG TAB PO ×2 (06:14→15:44)
[2018-03-03] MEDS: LIDOCAINE 5% (LIDODERM) PATCH TD (06:15)
[2018-03-03] MEDS: rOPINIRole 1MG TAB PO ×3 (06:16→20:30)
[2018-03-03] MEDS: LACTOBACILLUS ACIDOPHILUS CAP (BACID) PO ×3 (06:16→20:32)
[2018-03-03] MEDS: LEVOTHYROXINE 100MCG TABLET (0.1MG) PO (06:17)
[2018-03-03] MEDS: METOPROLOL SUCC (TopROL XL) 50MG **XL** TAB PO ×2 (06:17→20:32)
[2018-03-03] MEDS: CLOPIDOGREL 75 MG TAB PO (06:18)
[2018-03-03] MEDS: CALCIUM ACETATE 667 MG GELCAP PO ×3 (06:18→17:48)
[2018-03-03] MEDS: NORTRIPTYLINE 10 MG CAP PO ×2 (06:18→20:30)
[2018-03-03] MEDS: GABAPENTIN 100 MG CAP PO ×3 (06:18→20:30)
[2018-03-03] MEDS: LINEZOLID 600MG TABLET (ZYVOX) PO ×2 (06:19→20:30)
[2018-03-03] MEDS: CYCLOBENZAPRINE 10 MG TAB PO (06:19)
[2018-03-03] MEDS: PANTOPRAZOLE 40MG TAB (PROTONIX) PO (06:19)
[2018-03-03] MEDS: DULoxetine 30 MG CAP (CYMBALTA) PO (06:19)
[2018-03-03] MEDS: TORSEMIDE 100 MG TAB PO ×2 (06:20→20:45)
[2018-03-03] MEDS: HEPARIN SOD (PORCINE) 5000 UNITS/ML VIAL SC ×3 (06:25→20:35)
[2018-03-03 07:44] LABS: BEDSIDE GLUCOSE 288 MG/DL (80-115)
[2018-03-03] MEDS: LEVEMIR (INSULIN DETEMIR) 1 UNITS/0.01ML SC ×2 (07:53→20:35)
[2018-03-03] MEDS: HumaLOG INSULIN (NovoLOG) PER UNIT SC ×4 (07:53→20:35)
[2018-03-03] MEDS: ALPRAZolam 0.25 MG TAB PO (09:38)
[2018-03-03 10:07] LABS: IMMEDIATE SPIN CROSSMATCH 1 1
[2018-03-03] MEDS: HEPARIN 1,000 UNITS/ML 10ML VIAL (FOR RADIOLOGY& DIALYSIS ONLY) IV (11:45)
[2018-03-03] MEDS: LIDOCAINE 1% SDV 5 ML VIAL SQ (11:45)
[2018-03-03 14:21] LABS: BEDSIDE GLUCOSE 111 MG/DL (80-115)
[2018-03-03] MEDS: SIMVASTATIN 20 MG TAB PO (20:30)
[2018-03-03] MEDS: traZODone 100 MG TAB PO (20:32)
[2018-03-03] MEDS: oxyCODONE 5MG TAB PO (20:33)
[2018-03-03] MEDS: **NOTE PATIENT COMMENT** MISC XX (20:35)
[2018-03-03 21:06] LABS: BEDSIDE GLUCOSE 279 MG/DL (80-115)
[2018-03-04] MEDS: HEPARIN SOD (PORCINE) 5000 UNITS/ML VIAL SC ×3 (06:07→22:02)
[2018-03-04 06:55] LABS: ANION GAP 9 MEQ/L (8-16); BLOOD UREA NITROGEN 54 MG/DL (7-18); CALCIUM LEVEL 8.1 MG/DL (8.8-10.2); CARBON DIOXIDE LEVEL 26 MEQ/L (21-32); CHLORIDE LEVEL 104 MEQ/L (98-107); CREATININE FOR GFR 4.37 MG/DL (0.55-1.30); GLOMERULAR FILTRATION RATE 10.7 (>45); GLUCOSE, FASTING 280 MG/DL (70-100); POTASSIUM SERUM 4.2 MEQ/L (3.5-5.1); SODIUM LEVEL 139 MEQ/L (136-145)
[2018-03-04 07:02] LABS: HEMATOCRIT 29.9 % (36.0-47.0); HEMOGLOBIN 8.9 g/dl (12.0-15.5); MEAN CORPUSCULAR HEMOGLOBIN 27.4 pg (27.0-33.0); MEAN CORPUSCULAR HGB CONC 29.8 g/dl (32.0-36.5); PLATELET COUNT, AUTOMATED 121 10^3/uL (150-450); RED BLOOD COUNT 3.25 10^6/uL (4.00-5.40); RED CELL DISTRIBUTION WIDTH 18.8 % (11.5-14.5); WHITE BLOOD COUNT 6.1 10^3/uL (4.0-10.0)
[2018-03-04] MEDS: HumaLOG INSULIN (NovoLOG) PER UNIT SC ×4 (08:40→22:02)
[2018-03-04] MEDS: CALCIUM CARBONATE 500 MG CHEW U/D PO ×3 (08:40→18:08)
[2018-03-04] MEDS: LEVEMIR (INSULIN DETEMIR) 1 UNITS/0.01ML SC ×2 (08:41→22:01)
[2018-03-04] MEDS: CALCIUM ACETATE 667 MG GELCAP PO ×3 (08:41→18:09)
[2018-03-04] MEDS: LIDOCAINE 5% (LIDODERM) PATCH TD (08:41)
[2018-03-04] MEDS: rOPINIRole 1MG TAB PO ×3 (08:42→22:00)
[2018-03-04] MEDS: DULoxetine 30 MG CAP (CYMBALTA) PO (08:42)
[2018-03-04] MEDS: GABAPENTIN 100 MG CAP PO ×3 (08:42→21:57)
[2018-03-04] MEDS: NORTRIPTYLINE 10 MG CAP PO ×2 (08:42→21:59)
[2018-03-04] MEDS: LACTOBACILLUS ACIDOPHILUS CAP (BACID) PO ×3 (08:42→21:58)
[2018-03-04] MEDS: TORSEMIDE 100 MG TAB PO ×2 (08:43→21:58)
[2018-03-04] MEDS: CLOPIDOGREL 75 MG TAB PO (08:43)
[2018-03-04] MEDS: LEVOTHYROXINE 100MCG TABLET (0.1MG) PO (08:43)
[2018-03-04] MEDS: LINEZOLID 600MG TABLET (ZYVOX) PO ×2 (08:43→22:00)
[2018-03-04] MEDS: PANTOPRAZOLE 40MG TAB (PROTONIX) PO (08:43)
[2018-03-04] MEDS: METOPROLOL SUCC (TopROL XL) 50MG **XL** TAB PO ×2 (08:44→21:58)
[2018-03-04] MEDS: PERCOCET 5MG/325MG TAB PO ×2 (12:11→18:10)
[2018-03-04 12:22] LABS: BEDSIDE GLUCOSE 312 MG/DL (80-115)
[2018-03-04] MEDS: **NOTE PATIENT COMMENT** MISC XX (21:00)
[2018-03-04] MEDS: SIMVASTATIN 20 MG TAB PO (21:59)
[2018-03-04] MEDS: traZODone 100 MG TAB PO (21:59)
[2018-03-05] MEDS: HEPARIN SOD (PORCINE) 5000 UNITS/ML VIAL SC ×3 (05:26→21:44)
[2018-03-05 05:55] LABS: HEMATOCRIT 31.6 % (36.0-47.0); HEMOGLOBIN 9.5 g/dl (12.0-15.5); MEAN CORPUSCULAR HEMOGLOBIN 27.9 pg (27.0-33.0); MEAN CORPUSCULAR HGB CONC 30.1 g/dl (32.0-36.5); MEAN CORPUSCULAR VOLUME 92.7 fl (80.0-96.0); PLATELET COUNT, AUTOMATED 113 10^3/uL (150-450); RED BLOOD COUNT 3.41 10^6/uL (4.00-5.40); RED CELL DISTRIBUTION WIDTH 19.5 % (11.5-14.5); WHITE BLOOD COUNT 5.9 10^3/uL (4.0-10.0)
[2018-03-05 06:12] LABS: ANION GAP 8 MEQ/L (8-16); BLOOD UREA NITROGEN 70 MG/DL (7-18); CALCIUM LEVEL 8.5 MG/DL (8.8-10.2); CARBON DIOXIDE LEVEL 27 MEQ/L (21-32); CHLORIDE LEVEL 102 MEQ/L (98-107); CREATININE FOR GFR 5.41 MG/DL (0.55-1.30); GLOMERULAR FILTRATION RATE 8.3 (>45); GLUCOSE, FASTING 278 MG/DL (70-100); POTASSIUM SERUM 4.4 MEQ/L (3.5-5.1); SODIUM LEVEL 137 MEQ/L (136-145)
[2018-03-05] MEDS: CALCIUM CARBONATE 500 MG CHEW U/D PO ×3 (08:33→17:02)
[2018-03-05] MEDS: HumaLOG INSULIN (NovoLOG) PER UNIT SC ×4 (08:33→21:00)
[2018-03-05] MEDS: LACTOBACILLUS ACIDOPHILUS CAP (BACID) PO ×3 (08:34→21:42)
[2018-03-05] MEDS: LEVEMIR (INSULIN DETEMIR) 1 UNITS/0.01ML SC ×2 (08:34→21:43)
[2018-03-05] MEDS: rOPINIRole 1MG TAB PO ×3 (08:34→21:41)
[2018-03-05] MEDS: LIDOCAINE 5% (LIDODERM) PATCH TD (08:34)
[2018-03-05] MEDS: METOPROLOL SUCC (TopROL XL) 50MG **XL** TAB PO ×2 (08:35→21:43)
[2018-03-05] MEDS: CLOPIDOGREL 75 MG TAB PO (08:35)
[2018-03-05] MEDS: LEVOTHYROXINE 100MCG TABLET (0.1MG) PO (08:35)
[2018-03-05] MEDS: GABAPENTIN 100 MG CAP PO ×3 (08:35→21:42)
[2018-03-05] MEDS: CALCIUM ACETATE 667 MG GELCAP PO ×3 (08:35→17:02)
[2018-03-05] MEDS: TORSEMIDE 100 MG TAB PO ×2 (08:35→21:42)
[2018-03-05] MEDS: NORTRIPTYLINE 10 MG CAP PO ×2 (08:35→21:41)
[2018-03-05] MEDS: PANTOPRAZOLE 40MG TAB (PROTONIX) PO (08:36)
[2018-03-05] MEDS: DULoxetine 30 MG CAP (CYMBALTA) PO (08:36)
[2018-03-05] MEDS: LINEZOLID 600MG TABLET (ZYVOX) PO ×2 (08:36→21:42)
[2018-03-05] MEDS: PERCOCET 5MG/325MG TAB PO (12:18)
[2018-03-05] MEDS: **NOTE PATIENT COMMENT** MISC XX (21:00)
[2018-03-05] MEDS: SIMVASTATIN 20 MG TAB PO (21:42)
[2018-03-05] MEDS: traZODone 100 MG TAB PO (21:42)
[2018-03-06] MEDS: HEPARIN SOD (PORCINE) 5000 UNITS/ML VIAL SC ×3 (06:33→22:01)
[2018-03-06] MEDS: CALCIUM CARBONATE 500 MG CHEW U/D PO ×3 (06:33→18:13)
[2018-03-06] MEDS: GABAPENTIN 100 MG CAP PO ×3 (06:34→22:01)
[2018-03-06] MEDS: CLOPIDOGREL 75 MG TAB PO (06:34)
[2018-03-06] MEDS: TORSEMIDE 100 MG TAB PO ×2 (06:34→22:01)
[2018-03-06] MEDS: CALCIUM ACETATE 667 MG GELCAP PO ×3 (06:34→18:13)
[2018-03-06] MEDS: LACTOBACILLUS ACIDOPHILUS CAP (BACID) PO ×3 (06:34→22:01)
[2018-03-06] MEDS: NORTRIPTYLINE 10 MG CAP PO ×2 (06:34→22:01)
[2018-03-06] MEDS: PANTOPRAZOLE 40MG TAB (PROTONIX) PO (06:35)
[2018-03-06] MEDS: rOPINIRole 1MG TAB PO ×3 (06:35→22:00)
[2018-03-06] MEDS: DULoxetine 30 MG CAP (CYMBALTA) PO (06:35)
[2018-03-06] MEDS: LINEZOLID 600MG TABLET (ZYVOX) PO ×2 (06:35→22:02)
[2018-03-06] MEDS: METOPROLOL SUCC (TopROL XL) 50MG **XL** TAB PO ×2 (06:38→22:02)
[2018-03-06] MEDS: LEVOTHYROXINE 100MCG TABLET (0.1MG) PO (08:12)
[2018-03-06] MEDS: ALPRAZolam 0.25 MG TAB PO (08:12)
[2018-03-06] MEDS: LEVEMIR (INSULIN DETEMIR) 1 UNITS/0.01ML SC ×2 (08:13→22:03)
[2018-03-06] MEDS: LIDOCAINE 5% (LIDODERM) PATCH TD (08:14)
[2018-03-06] MEDS: HumaLOG INSULIN (NovoLOG) PER UNIT SC ×4 (08:14→22:03)
[2018-03-06 08:26] LABS: HEMATOCRIT 31.8 % (36.0-47.0); HEMOGLOBIN 9.5 g/dl (12.0-15.5); MEAN CORPUSCULAR HEMOGLOBIN 27.8 pg (27.0-33.0); MEAN CORPUSCULAR HGB CONC 29.9 g/dl (32.0-36.5); PLATELET COUNT, AUTOMATED 109 10^3/uL (150-450); RED BLOOD COUNT 3.42 10^6/uL (4.00-5.40); RED CELL DISTRIBUTION WIDTH 19.8 % (11.5-14.5); WHITE BLOOD COUNT 6.3 10^3/uL (4.0-10.0)
[2018-03-06 08:47] LABS: ANION GAP 9 MEQ/L (8-16); BLOOD UREA NITROGEN 98 MG/DL (7-18); CALCIUM LEVEL 8.1 MG/DL (8.8-10.2); CARBON DIOXIDE LEVEL 26 MEQ/L (21-32); CHLORIDE LEVEL 102 MEQ/L (98-107); CREATININE FOR GFR 6.25 MG/DL (0.55-1.30); GLOMERULAR FILTRATION RATE 7.1 (>45); GLUCOSE, FASTING 220 MG/DL (70-100); POTASSIUM SERUM 4.6 MEQ/L (3.5-5.1); SODIUM LEVEL 137 MEQ/L (136-145)
[2018-03-06 11:51] LABS: BEDSIDE GLUCOSE 273 MG/DL (80-115)
[2018-03-06 11:52] LABS: BEDSIDE GLUCOSE 234 MG/DL (80-115)
[2018-03-06 11:52] LABS: BEDSIDE GLUCOSE 269 MG/DL (80-115)
[2018-03-06 11:52] LABS: BEDSIDE GLUCOSE 300 MG/DL (80-115)
[2018-03-06 11:52] LABS: BEDSIDE GLUCOSE 299 MG/DL (80-115)
[2018-03-06] MEDS: LIDOCAINE 1% SDV 5 ML VIAL SQ (12:15)
[2018-03-06] MEDS: HEPARIN 1,000 UNITS/ML 10ML VIAL (FOR RADIOLOGY& DIALYSIS ONLY) IV (12:15)
[2018-03-06] MEDS: PERCOCET 5MG/325MG TAB PO ×3 (15:42→22:35)
[2018-03-06] MEDS: **NOTE PATIENT COMMENT** MISC XX (21:00)
[2018-03-06] MEDS: SIMVASTATIN 20 MG TAB PO (22:02)
[2018-03-06] MEDS: traZODone 100 MG TAB PO (22:02)
[2018-03-07 00:04] LABS: BEDSIDE GLUCOSE 135 MG/DL (80-115)
[2018-03-07 00:05] LABS: BEDSIDE GLUCOSE 228 MG/DL (80-115)
[2018-03-07 00:05] LABS: BEDSIDE GLUCOSE 345 MG/DL (80-115)
[2018-03-07] MEDS: HEPARIN SOD (PORCINE) 5000 UNITS/ML VIAL SC ×3 (05:44→21:01)
[2018-03-07 06:09] LABS: ANION GAP 7 MEQ/L (8-16); BLOOD UREA NITROGEN 57 MG/DL (7-18); C REACTIVE PROTEIN QUANTITATIV 1.54 MG/DL (0.00-0.30); CALCIUM LEVEL 8.2 MG/DL (8.8-10.2); CARBON DIOXIDE LEVEL 27 MEQ/L (21-32); CHLORIDE LEVEL 102 MEQ/L (98-107); CREATININE FOR GFR 4.54 MG/DL (0.55-1.30); GLOMERULAR FILTRATION RATE 10.2 (>45); GLUCOSE, FASTING 218 MG/DL (70-100); POTASSIUM SERUM 4.2 MEQ/L (3.5-5.1); SODIUM LEVEL 136 MEQ/L (136-145)
[2018-03-07 06:12] LABS: HEMATOCRIT 32.7 % (36.0-47.0); HEMOGLOBIN 9.7 g/dl (12.0-15.5); MEAN CORPUSCULAR HEMOGLOBIN 27.2 pg (27.0-33.0); MEAN CORPUSCULAR HGB CONC 29.7 g/dl (32.0-36.5); MEAN CORPUSCULAR VOLUME 91.9 fl (80.0-96.0); PLATELET COUNT, AUTOMATED 110 10^3/uL (150-450); RED BLOOD COUNT 3.56 10^6/uL (4.00-5.40); RED CELL DISTRIBUTION WIDTH 19.9 % (11.5-14.5); WHITE BLOOD COUNT 5.2 10^3/uL (4.0-10.0)
[2018-03-07 06:45] LABS: ERYTHROCYTE SEDIMENTATION RATE 35 mm/hr (0-30)
[2018-03-07] MEDS: HumaLOG INSULIN (NovoLOG) PER UNIT SC ×4 (08:13→21:02)
[2018-03-07] MEDS: rOPINIRole 1MG TAB PO ×3 (08:14→20:59)
[2018-03-07] MEDS: DULoxetine 30 MG CAP (CYMBALTA) PO (08:14)
[2018-03-07] MEDS: CALCIUM CARBONATE 500 MG CHEW U/D PO ×3 (08:14→18:07)
[2018-03-07] MEDS: LIDOCAINE 5% (LIDODERM) PATCH TD (08:14)
[2018-03-07] MEDS: LEVEMIR (INSULIN DETEMIR) 1 UNITS/0.01ML SC ×2 (08:14→21:01)
[2018-03-07] MEDS: LACTOBACILLUS ACIDOPHILUS CAP (BACID) PO ×3 (08:14→20:59)
[2018-03-07] MEDS: GABAPENTIN 100 MG CAP PO ×3 (08:14→20:59)
[2018-03-07] MEDS: CLOPIDOGREL 75 MG TAB PO (08:16)
[2018-03-07] MEDS: LEVOTHYROXINE 100MCG TABLET (0.1MG) PO (08:16)
[2018-03-07] MEDS: LINEZOLID 600MG TABLET (ZYVOX) PO (08:16)
[2018-03-07] MEDS: CALCIUM ACETATE 667 MG GELCAP PO ×3 (08:16→18:07)
[2018-03-07] MEDS: TORSEMIDE 100 MG TAB PO ×2 (08:16→20:58)
[2018-03-07] MEDS: NORTRIPTYLINE 10 MG CAP PO ×2 (08:16→20:58)
[2018-03-07] MEDS: PANTOPRAZOLE 40MG TAB (PROTONIX) PO (08:17)
[2018-03-07] MEDS: METOPROLOL SUCC (TopROL XL) 50MG **XL** TAB PO ×2 (08:20→21:03)
[2018-03-07] MEDS: NYSTATIN 100,000 UNITS/GM TOPICAL PWD 15 GM TOP ×2 (09:00→21:00)
[2018-03-07] MEDS: PERCOCET 5MG/325MG TAB PO ×3 (10:18→23:43)
[2018-03-07] MEDS ORDERED: HEPARIN 1,000 UNITS/ML 10ML VIAL (FOR RADIOLOGY& DIALYSIS ONLY) As Ordered (12:51)
[2018-03-07] MEDS ORDERED: fentaNYL 100 MCG/2 ML INJECTION (J3010) As Ordered (12:51)
[2018-03-07] MEDS ORDERED: MIDAZOLAM INJ 2 MG/2 ML VIAL (J2250) As Ordered (12:51)
[2018-03-07] MEDS ORDERED: ISOVUE-300 61% 50ML VIAL (Q9967) As Ordered (12:52)
[2018-03-07 13:21] LABS: BEDSIDE GLUCOSE 252 MG/DL (80-115)
[2018-03-07] MEDS: traZODone 100 MG TAB PO (20:58)
[2018-03-07] MEDS: SIMVASTATIN 20 MG TAB PO (20:59)
[2018-03-07] MEDS: **NOTE PATIENT COMMENT** MISC XX (21:00)
[2018-03-08] MEDS: CYCLOBENZAPRINE 10 MG TAB PO (01:24)
[2018-03-08] MEDS: HEPARIN SOD (PORCINE) 5000 UNITS/ML VIAL SC ×3 (06:00→23:32)
[2018-03-08 06:04] LABS: HEMATOCRIT 30.1 % (36.0-47.0); HEMOGLOBIN 8.8 g/dl (12.0-15.5); MEAN CORPUSCULAR HEMOGLOBIN 27.7 pg (27.0-33.0); MEAN CORPUSCULAR HGB CONC 29.2 g/dl (32.0-36.5); MEAN CORPUSCULAR VOLUME 94.7 fl (80.0-96.0); RED BLOOD COUNT 3.18 10^6/uL (4.00-5.40); RED CELL DISTRIBUTION WIDTH 20.2 % (11.5-14.5)
[2018-03-08 06:18] LABS: ANION GAP 7 MEQ/L (8-16); BLOOD UREA NITROGEN 73 MG/DL (7-18); C REACTIVE PROTEIN QUANTITATIV 1.94 MG/DL (0.00-0.30); CALCIUM LEVEL 8.3 MG/DL (8.8-10.2); CARBON DIOXIDE LEVEL 25 MEQ/L (21-32); CHLORIDE LEVEL 103 MEQ/L (98-107); CREATININE FOR GFR 5.61 MG/DL (0.55-1.30); GLUCOSE, FASTING 216 MG/DL (70-100); POTASSIUM SERUM 4.6 MEQ/L (3.5-5.1); SODIUM LEVEL 135 MEQ/L (136-145)
[2018-03-08 06:35] LABS: PLATELET COUNT, AUTOMATED 84 10^3/uL (150-450)
[2018-03-08] MEDS: NORTRIPTYLINE 10 MG CAP PO ×2 (06:41→21:17)
[2018-03-08] MEDS: GABAPENTIN 100 MG CAP PO ×3 (06:42→21:17)
[2018-03-08] MEDS: CALCIUM CARBONATE 500 MG CHEW U/D PO ×3 (06:42→17:30)
[2018-03-08] MEDS: METOPROLOL SUCC (TopROL XL) 50MG **XL** TAB PO ×2 (06:42→21:17)
[2018-03-08] MEDS: LEVEMIR (INSULIN DETEMIR) 1 UNITS/0.01ML SC ×2 (06:43→21:16)
[2018-03-08] MEDS: LACTOBACILLUS ACIDOPHILUS CAP (BACID) PO ×3 (06:44→21:17)
[2018-03-08] MEDS: DULoxetine 30 MG CAP (CYMBALTA) PO (06:44)
[2018-03-08] MEDS: TORSEMIDE 100 MG TAB PO ×2 (06:44→21:17)
[2018-03-08] MEDS: PANTOPRAZOLE 40MG TAB (PROTONIX) PO (06:44)
[2018-03-08] MEDS: CLOPIDOGREL 75 MG TAB PO (06:44)
[2018-03-08] MEDS: rOPINIRole 1MG TAB PO ×3 (06:44→21:17)
[2018-03-08] MEDS: LIDOCAINE 5% (LIDODERM) PATCH TD (06:45)
[2018-03-08] MEDS: LEVOTHYROXINE 100MCG TABLET (0.1MG) PO (06:55)
[2018-03-08] MEDS: HumaLOG INSULIN (NovoLOG) PER UNIT SC ×4 (07:46→20:22)
[2018-03-08] MEDS: ALPRAZolam 0.25 MG TAB PO (07:47)
[2018-03-08] MEDS: CALCIUM ACETATE 667 MG GELCAP PO ×3 (07:47→17:30)
[2018-03-08] MEDS: NYSTATIN 100,000 UNITS/GM TOPICAL PWD 15 GM TOP ×2 (07:48→21:18)
[2018-03-08 08:25] LABS: BEDSIDE GLUCOSE 127 MG/DL (80-115)
[2018-03-08 08:25] LABS: BEDSIDE GLUCOSE 407 MG/DL (80-115)
[2018-03-08] MEDS: PERCOCET 5MG/325MG TAB PO ×2 (11:06→19:01)
[2018-03-08] MEDS: LIDOCAINE 1% SDV 5 ML VIAL SQ (12:49)
[2018-03-08] MEDS: HEPARIN 1,000 UNITS/ML 10ML VIAL (FOR RADIOLOGY& DIALYSIS ONLY) IV (12:49)
[2018-03-08 17:20] LABS: BEDSIDE GLUCOSE 266 MG/DL (80-115)
[2018-03-08] MEDS: **NOTE PATIENT COMMENT** MISC XX (20:22)
[2018-03-08 20:46] LABS: BEDSIDE GLUCOSE 169 MG/DL (80-115)
[2018-03-08 20:47] LABS: BEDSIDE GLUCOSE 219 MG/DL (80-115)
[2018-03-08] MEDS: traZODone 100 MG TAB PO (21:17)
[2018-03-08] MEDS: SIMVASTATIN 20 MG TAB PO (21:17)
[2018-03-09] MEDS: HEPARIN SOD (PORCINE) 5000 UNITS/ML VIAL SC (05:26)
[2018-03-09] MEDS: PERCOCET 5MG/325MG TAB PO ×3 (05:27→17:08)
[2018-03-09 06:56] LABS: HEMATOCRIT 26.8 % (36.0-47.0); MEAN CORPUSCULAR HEMOGLOBIN 28.1 pg (27.0-33.0); MEAN CORPUSCULAR HGB CONC 29.9 g/dl (32.0-36.5); RED BLOOD COUNT 2.85 10^6/uL (4.00-5.40); RED CELL DISTRIBUTION WIDTH 20.8 % (11.5-14.5); WHITE BLOOD COUNT 5.6 10^3/uL (4.0-10.0)
[2018-03-09 07:02] LABS: IMMATURE PLATELET FRACTION % 5.3 % (0.0-9.6); PLATELET COUNT, AUTOMATED 76 10^3/uL (150-450); PLATELET F 3.9
[2018-03-09 07:21] LABS: ANION GAP 6 MEQ/L (8-16); BLOOD UREA NITROGEN 56 MG/DL (7-18); C REACTIVE PROTEIN QUANTITATIV 2.72 MG/DL (0.00-0.30); CALCIUM LEVEL 7.9 MG/DL (8.8-10.2); CARBON DIOXIDE LEVEL 28 MEQ/L (21-32); CHLORIDE LEVEL 103 MEQ/L (98-107); CREATININE FOR GFR 4.44 MG/DL (0.55-1.30); GLOMERULAR FILTRATION RATE 10.5 (>45); GLUCOSE, FASTING 261 MG/DL (70-100); POTASSIUM SERUM 4.2 MEQ/L (3.5-5.1); SODIUM LEVEL 137 MEQ/L (136-145)
[2018-03-09 08:23] LABS: RETICULOCYTE # 105.8 10^9/L (17-77); RETICULOCYTE % 3.7 % (0.5-1.5)
[2018-03-09] MEDS: GABAPENTIN 100 MG CAP PO ×3 (08:28→22:28)
[2018-03-09] MEDS: LACTOBACILLUS ACIDOPHILUS CAP (BACID) PO ×3 (08:28→22:28)
[2018-03-09] MEDS: CLOPIDOGREL 75 MG TAB PO (08:29)
[2018-03-09] MEDS: rOPINIRole 1MG TAB PO ×3 (08:29→22:27)
[2018-03-09] MEDS: LEVOTHYROXINE 100MCG TABLET (0.1MG) PO (08:29)
[2018-03-09] MEDS: DULoxetine 30 MG CAP (CYMBALTA) PO (08:29)
[2018-03-09] MEDS: PANTOPRAZOLE 40MG TAB (PROTONIX) PO (08:29)
[2018-03-09] MEDS: TORSEMIDE 100 MG TAB PO ×2 (08:29→22:28)
[2018-03-09] MEDS: CALCIUM CARBONATE 500 MG CHEW U/D PO ×3 (08:29→17:06)
[2018-03-09] MEDS: METOPROLOL SUCC (TopROL XL) 50MG **XL** TAB PO ×2 (08:29→22:29)
[2018-03-09] MEDS: NORTRIPTYLINE 10 MG CAP PO ×2 (08:29→22:27)
[2018-03-09] MEDS: CALCIUM ACETATE 667 MG GELCAP PO ×3 (08:30→17:07)
[2018-03-09] MEDS: LEVEMIR (INSULIN DETEMIR) 1 UNITS/0.01ML SC ×2 (08:30→22:26)
[2018-03-09] MEDS: NYSTATIN 100,000 UNITS/GM TOPICAL PWD 15 GM TOP ×2 (08:30→22:29)
[2018-03-09] MEDS: LIDOCAINE 5% (LIDODERM) PATCH TD (08:30)
[2018-03-09] MEDS: HumaLOG INSULIN (NovoLOG) PER UNIT SC ×4 (08:31→22:27)
[2018-03-09 08:32] LABS: SLIDE REVIEW Report; SOURCE PERIPHERAL SMEAR
[2018-03-09 08:33] LABS: REASON FOR REVIEW PLATELET MORPHOLOGY
[2018-03-09 11:01] LABS: BEDSIDE GLUCOSE 263 MG/DL (80-115)
[2018-03-09 12:13] LABS: VITAMIN B12 LEVEL 448 PG/ML (247-911)
[2018-03-09 12:13] LABS: FOLATE 6.9 NG/ML (>5.4)
[2018-03-09 12:29] LABS: BEDSIDE GLUCOSE 303 MG/DL (80-115)
[2018-03-09 16:55] LABS: BEDSIDE GLUCOSE 253 MG/DL (80-115)
[2018-03-09 20:53] LABS: BEDSIDE GLUCOSE 256 MG/DL (80-115)
[2018-03-09] MEDS: **NOTE PATIENT COMMENT** MISC XX (21:00)
[2018-03-09] MEDS: PANTOPRAZOLE 40MG INJ (PROTONIX) (C9113) IV (22:27)
[2018-03-09] MEDS: SIMVASTATIN 20 MG TAB PO (22:28)
[2018-03-09] MEDS: traZODone 100 MG TAB PO (22:28)
[2018-03-10] MEDS: PERCOCET 5MG/325MG TAB PO ×3 (00:37→20:39)
[2018-03-10] MEDS: rOPINIRole 1MG TAB PO ×3 (06:10→22:21)
[2018-03-10] MEDS: GABAPENTIN 100 MG CAP PO ×3 (06:10→22:20)
[2018-03-10] MEDS: CALCIUM ACETATE 667 MG GELCAP PO ×3 (06:11→17:14)
[2018-03-10] MEDS: DULoxetine 30 MG CAP (CYMBALTA) PO (06:11)
[2018-03-10] MEDS: LEVOTHYROXINE 100MCG TABLET (0.1MG) PO (06:11)
[2018-03-10] MEDS: LACTOBACILLUS ACIDOPHILUS CAP (BACID) PO ×3 (06:11→22:23)
[2018-03-10] MEDS: TORSEMIDE 100 MG TAB PO ×2 (06:11→22:22)
[2018-03-10] MEDS: NORTRIPTYLINE 10 MG CAP PO ×2 (06:12→22:21)
[2018-03-10] MEDS: NYSTATIN 100,000 UNITS/GM TOPICAL PWD 15 GM TOP ×2 (06:13→22:23)
[2018-03-10] MEDS: METOPROLOL SUCC (TopROL XL) 50MG **XL** TAB PO ×2 (06:15→22:22)
[2018-03-10] MEDS: PANTOPRAZOLE 40MG INJ (PROTONIX) (C9113) IV ×2 (06:15→22:20)
[2018-03-10] MEDS: HumaLOG INSULIN (NovoLOG) PER UNIT SC ×4 (06:58→22:23)
[2018-03-10] MEDS: ALPRAZolam 0.25 MG TAB PO (06:58)
[2018-03-10 07:00] LABS: HEMATOCRIT 25.6 % (36.0-47.0); HEMOGLOBIN 7.8 g/dl (12.0-15.5); MEAN CORPUSCULAR HEMOGLOBIN 28.5 pg (27.0-33.0); MEAN CORPUSCULAR HGB CONC 30.5 g/dl (32.0-36.5); MEAN CORPUSCULAR VOLUME 93.4 fl (80.0-96.0); RED BLOOD COUNT 2.74 10^6/uL (4.00-5.40); RED CELL DISTRIBUTION WIDTH 20.8 % (11.5-14.5)
[2018-03-10 07:08] LABS: IMMATURE PLATELET FRACTION % 5.8 % (0.0-9.6); PLATELET COUNT, AUTOMATED 82 10^3/uL (150-450); PLATELET F 4.5
[2018-03-10 07:16] LABS: BEDSIDE GLUCOSE 120 MG/DL (80-115)
[2018-03-10] MEDS: CALCIUM CARBONATE 500 MG CHEW U/D PO ×3 (07:30→17:14)
[2018-03-10 07:34] LABS: ANION GAP 9 MEQ/L (8-16); BLOOD UREA NITROGEN 73 MG/DL (7-18); C REACTIVE PROTEIN QUANTITATIV 3.48 MG/DL (0.00-0.30); CALCIUM LEVEL 8.3 MG/DL (8.8-10.2); CARBON DIOXIDE LEVEL 27 MEQ/L (21-32); CHLORIDE LEVEL 103 MEQ/L (98-107); CREATININE FOR GFR 5.27 MG/DL (0.55-1.30); GLOMERULAR FILTRATION RATE 8.6 (>45); GLUCOSE, FASTING 114 MG/DL (70-100); POTASSIUM SERUM 4.4 MEQ/L (3.5-5.1); SODIUM LEVEL 139 MEQ/L (136-145)
[2018-03-10] MEDS: LIDOCAINE 5% (LIDODERM) PATCH TD (07:41)
[2018-03-10 07:48] LABS: IMMEDIATE SPIN CROSSMATCH 1 1
[2018-03-10 09:18] LABS: IMMEDIATE SPIN CROSSMATCH 1 1
[2018-03-10] MEDS: LIDOCAINE 1% SDV 5 ML VIAL SQ (09:45)
[2018-03-10] MEDS: HEPARIN 1,000 UNITS/ML 10ML VIAL (FOR RADIOLOGY& DIALYSIS ONLY) IV (09:45)
[2018-03-10] MEDS: GOLYTELY SOLN 4000 ML BTL PO (12:04)
[2018-03-10] MEDS: LEVEMIR (INSULIN DETEMIR) 1 UNITS/0.01ML SC ×2 (12:04→22:21)
[2018-03-10 12:09] LABS: BEDSIDE GLUCOSE 107 MG/DL (80-115)
[2018-03-10 17:17] LABS: BEDSIDE GLUCOSE 61 MG/DL (80-115)
[2018-03-10 18:42] LABS: BEDSIDE GLUCOSE 139 MG/DL (80-115)
[2018-03-10 20:57] LABS: BEDSIDE GLUCOSE 112 MG/DL (80-115)
[2018-03-10] MEDS ORDERED: LEVEMIR (INSULIN DETEMIR) 1 UNITS/0.01ML SC (21:00)
[2018-03-10] MEDS: traZODone 100 MG TAB PO (22:22)
[2018-03-10] MEDS: SIMVASTATIN 20 MG TAB PO (22:22)
[2018-03-10] MEDS: **NOTE PATIENT COMMENT** MISC XX (22:23)
[2018-03-11] MEDS: ONDANSETRON 4MG/2ML VIAL (J2405) IV (00:19)
[2018-03-11 05:52] LABS: HEMATOCRIT 34.6 % (36.0-47.0); MEAN CORPUSCULAR HEMOGLOBIN 28.2 pg (27.0-33.0); MEAN CORPUSCULAR HGB CONC 31.2 g/dl (32.0-36.5); MEAN CORPUSCULAR VOLUME 90.3 fl (80.0-96.0); RED BLOOD COUNT 3.83 10^6/uL (4.00-5.40); WHITE BLOOD COUNT 7.1 10^3/uL (4.0-10.0)
[2018-03-11 05:53] LABS: PLATELET COUNT, AUTOMATED 84 10^3/uL (150-450)
[2018-03-11 05:54] LABS: HEMOGLOBIN 10.8 g/dl (12.0-15.5)
[2018-03-11 06:08] LABS: ANION GAP 6 MEQ/L (8-16); BLOOD UREA NITROGEN 36 MG/DL (7-18); C REACTIVE PROTEIN QUANTITATIV 3.74 MG/DL (0.00-0.30); CALCIUM LEVEL 8.9 MG/DL (8.8-10.2); CARBON DIOXIDE LEVEL 30 MEQ/L (21-32); CHLORIDE LEVEL 100 MEQ/L (98-107); CREATININE FOR GFR 3.96 MG/DL (0.55-1.30); GLUCOSE, FASTING 103 MG/DL (70-100); POTASSIUM SERUM 4.5 MEQ/L (3.5-5.1); SODIUM LEVEL 136 MEQ/L (136-145)
[2018-03-11] MEDS: HumaLOG INSULIN (NovoLOG) PER UNIT SC ×4 (07:27→21:38)
[2018-03-11] MEDS ORDERED: LIDOCAINE 2% INJ 100 MG/5 ML SDV (FOR ANES.) As Ordered (08:10)
[2018-03-11] MEDS ORDERED: PROPOFOL 200 MG/20 ML VIAL As Ordered (08:10)
[2018-03-11 08:53] LABS: PHOSPHORUS LEVEL 2.8 MG/DL (2.5-4.9)
[2018-03-11 09:18] LABS: BEDSIDE GLUCOSE 96 MG/DL (80-115)
[2018-03-11] MEDS: NORTRIPTYLINE 10 MG CAP PO ×2 (10:38→21:38)
[2018-03-11] MEDS: CALCIUM ACETATE 667 MG GELCAP PO ×3 (10:38→17:31)
[2018-03-11] MEDS: rOPINIRole 1MG TAB PO ×3 (10:38→21:38)
[2018-03-11] MEDS: TORSEMIDE 100 MG TAB PO ×2 (10:39→21:37)
[2018-03-11] MEDS: CALCIUM CARBONATE 500 MG CHEW U/D PO ×3 (10:39→17:30)
[2018-03-11] MEDS: LEVOTHYROXINE 100MCG TABLET (0.1MG) PO (10:39)
[2018-03-11] MEDS: DULoxetine 30 MG CAP (CYMBALTA) PO (10:39)
[2018-03-11] MEDS: LACTOBACILLUS ACIDOPHILUS CAP (BACID) PO ×3 (10:39→21:37)
[2018-03-11] MEDS: GABAPENTIN 100 MG CAP PO ×3 (10:40→21:37)
[2018-03-11] MEDS: METOPROLOL SUCC (TopROL XL) 50MG **XL** TAB PO ×2 (10:40→21:38)
[2018-03-11] MEDS: PERCOCET 5MG/325MG TAB PO ×2 (10:41→21:36)
[2018-03-11] MEDS: LIDOCAINE 5% (LIDODERM) PATCH TD (10:41)
[2018-03-11] MEDS: PANTOPRAZOLE 40MG INJ (PROTONIX) (C9113) IV (10:41)
[2018-03-11] MEDS: LEVEMIR (INSULIN DETEMIR) 1 UNITS/0.01ML SC ×2 (10:41→21:37)
[2018-03-11] MEDS: NYSTATIN 100,000 UNITS/GM TOPICAL PWD 15 GM TOP ×2 (10:41→21:39)
[2018-03-11 12:17] LABS: BEDSIDE GLUCOSE 164 MG/DL (80-115)
[2018-03-11 16:57] LABS: BEDSIDE GLUCOSE 248 MG/DL (80-115)
[2018-03-11] MEDS: **hydrALAZINE HCL** 25 MG TAB PO ×2 (17:31→23:38)
[2018-03-11 20:56] LABS: BEDSIDE GLUCOSE 247 MG/DL (80-115)
[2018-03-11] MEDS: traZODone 100 MG TAB PO (21:37)
[2018-03-11] MEDS: SIMVASTATIN 20 MG TAB PO (21:37)
[2018-03-11] MEDS: **NOTE PATIENT COMMENT** MISC XX (21:39)
[2018-03-12] MEDS: **hydrALAZINE HCL** 25 MG TAB PO ×4 (05:42→23:55)
[2018-03-12 06:19] LABS: HEMATOCRIT 33.9 % (36.0-47.0); HEMOGLOBIN 10.3 g/dl (12.0-15.5); MEAN CORPUSCULAR HEMOGLOBIN 27.6 pg (27.0-33.0); MEAN CORPUSCULAR HGB CONC 30.4 g/dl (32.0-36.5); MEAN CORPUSCULAR VOLUME 90.9 fl (80.0-96.0); RED BLOOD COUNT 3.73 10^6/uL (4.00-5.40); RED CELL DISTRIBUTION WIDTH 19.8 % (11.5-14.5); WHITE BLOOD COUNT 6.9 10^3/uL (4.0-10.0)
[2018-03-12 06:20] LABS: PLATELET COUNT, AUTOMATED 92 10^3/uL (150-450)
[2018-03-12 06:22] LABS: IMMATURE PLATELET FRACTION % 6.5 % (0.0-9.6)
[2018-03-12 06:39] LABS: ANION GAP 6 MEQ/L (8-16); BLOOD UREA NITROGEN 48 MG/DL (7-18); C REACTIVE PROTEIN QUANTITATIV 3.47 MG/DL (0.00-0.30); CALCIUM LEVEL 8.6 MG/DL (8.8-10.2); CARBON DIOXIDE LEVEL 29 MEQ/L (21-32); CHLORIDE LEVEL 101 MEQ/L (98-107); CREATININE FOR GFR 5.12 MG/DL (0.55-1.30); GLOMERULAR FILTRATION RATE 8.9 (>45); GLUCOSE, FASTING 228 MG/DL (70-100); POTASSIUM SERUM 4.7 MEQ/L (3.5-5.1); SODIUM LEVEL 136 MEQ/L (136-145)
[2018-03-12] MEDS: LACTOBACILLUS ACIDOPHILUS CAP (BACID) PO ×3 (08:24→20:35)
[2018-03-12] MEDS: NORTRIPTYLINE 10 MG CAP PO ×2 (08:24→20:35)
[2018-03-12] MEDS: TORSEMIDE 100 MG TAB PO ×2 (08:24→20:36)
[2018-03-12] MEDS: rOPINIRole 1MG TAB PO ×3 (08:24→20:36)
[2018-03-12] MEDS: GABAPENTIN 100 MG CAP PO ×3 (08:25→20:36)
[2018-03-12] MEDS: CALCIUM CARBONATE 500 MG CHEW U/D PO ×3 (08:25→18:05)
[2018-03-12] MEDS: DULoxetine 30 MG CAP (CYMBALTA) PO (08:25)
[2018-03-12] MEDS: CALCIUM ACETATE 667 MG GELCAP PO ×3 (08:25→18:04)
[2018-03-12] MEDS: LEVOTHYROXINE 100MCG TABLET (0.1MG) PO (08:25)
[2018-03-12] MEDS: PANTOPRAZOLE 40MG TAB (PROTONIX) PO (08:26)
[2018-03-12] MEDS: PERCOCET 5MG/325MG TAB PO (08:27)
[2018-03-12] MEDS: METOPROLOL SUCC (TopROL XL) 50MG **XL** TAB PO ×2 (08:28→20:37)
[2018-03-12] MEDS: HumaLOG INSULIN (NovoLOG) PER UNIT SC ×4 (08:29→20:37)
[2018-03-12] MEDS: LEVEMIR (INSULIN DETEMIR) 1 UNITS/0.01ML SC ×2 (08:30→20:38)
[2018-03-12] MEDS: NYSTATIN 100,000 UNITS/GM TOPICAL PWD 15 GM TOP ×2 (09:00→20:38)
[2018-03-12] MEDS: LIDOCAINE 5% (LIDODERM) PATCH TD (09:00)
[2018-03-12 12:05] LABS: BEDSIDE GLUCOSE 253 MG/DL (80-115)
[2018-03-12 17:13] LABS: BEDSIDE GLUCOSE 253 MG/DL (80-115)
[2018-03-12 20:32] LABS: BEDSIDE GLUCOSE 186 MG/DL (80-115)
[2018-03-12] MEDS: traZODone 100 MG TAB PO (20:36)
[2018-03-12] MEDS: SIMVASTATIN 20 MG TAB PO (20:36)
[2018-03-12] MEDS: **NOTE PATIENT COMMENT** MISC XX ×2 (20:51→21:00)
[2018-03-13] MEDS: PERCOCET 5MG/325MG TAB PO ×2 (02:29→12:33)
[2018-03-13] MEDS: oxyCODONE 5MG TAB PO ×2 (03:33→13:57)
[2018-03-13] MEDS: **hydrALAZINE HCL** 25 MG TAB PO ×4 (05:31→23:44)
[2018-03-13 06:36] LABS: HEMATOCRIT 32.2 % (36.0-47.0); HEMOGLOBIN 9.7 g/dl (12.0-15.5); MEAN CORPUSCULAR HEMOGLOBIN 27.4 pg (27.0-33.0); MEAN CORPUSCULAR HGB CONC 30.1 g/dl (32.0-36.5); PLATELET COUNT, AUTOMATED 107 10^3/uL (150-450); RED BLOOD COUNT 3.54 10^6/uL (4.00-5.40); RED CELL DISTRIBUTION WIDTH 20.1 % (11.5-14.5); WHITE BLOOD COUNT 9.7 10^3/uL (4.0-10.0)
[2018-03-13] MEDS: rOPINIRole 1MG TAB PO ×3 (06:46→21:31)
[2018-03-13] MEDS: LEVOTHYROXINE 100MCG TABLET (0.1MG) PO (06:47)
[2018-03-13] MEDS: CALCIUM ACETATE 667 MG GELCAP PO ×3 (06:47→17:21)
[2018-03-13] MEDS: METOPROLOL SUCC (TopROL XL) 50MG **XL** TAB PO ×2 (06:47→21:32)
[2018-03-13] MEDS: LACTOBACILLUS ACIDOPHILUS CAP (BACID) PO ×3 (06:47→21:31)
[2018-03-13] MEDS: DULoxetine 30 MG CAP (CYMBALTA) PO (06:48)
[2018-03-13] MEDS: TORSEMIDE 100 MG TAB PO ×2 (06:48→21:32)
[2018-03-13] MEDS: NORTRIPTYLINE 10 MG CAP PO ×2 (06:48→21:32)
[2018-03-13] MEDS: GABAPENTIN 100 MG CAP PO ×3 (06:48→21:31)
[2018-03-13] MEDS: CALCIUM CARBONATE 500 MG CHEW U/D PO ×3 (06:48→17:21)
[2018-03-13] MEDS: PANTOPRAZOLE 40MG TAB (PROTONIX) PO (06:48)
[2018-03-13] MEDS: NYSTATIN 100,000 UNITS/GM TOPICAL PWD 15 GM TOP ×2 (06:49→21:33)
[2018-03-13] MEDS: ALPRAZolam 0.25 MG TAB PO (06:49)
[2018-03-13] MEDS: LIDOCAINE 5% (LIDODERM) PATCH TD ×2 (06:49→21:19)
[2018-03-13] MEDS: HumaLOG INSULIN (NovoLOG) PER UNIT SC ×4 (06:58→21:30)
[2018-03-13] MEDS: LEVEMIR (INSULIN DETEMIR) 1 UNITS/0.01ML SC ×2 (06:59→21:30)
[2018-03-13 07:01] LABS: BEDSIDE GLUCOSE 213 MG/DL (80-115)
[2018-03-13 07:04] LABS: ANION GAP 9 MEQ/L (8-16); BLOOD UREA NITROGEN 59 MG/DL (7-18); C REACTIVE PROTEIN QUANTITATIV 2.73 MG/DL (0.00-0.30); CALCIUM LEVEL 8.4 MG/DL (8.8-10.2); CARBON DIOXIDE LEVEL 25 MEQ/L (21-32); CHLORIDE LEVEL 101 MEQ/L (98-107); GLOMERULAR FILTRATION RATE 7.5 (>45); GLUCOSE, FASTING 216 MG/DL (70-100); POTASSIUM SERUM 4.8 MEQ/L (3.5-5.1); SODIUM LEVEL 135 MEQ/L (136-145)
[2018-03-13] MEDS: HEPARIN 1,000 UNITS/ML 10ML VIAL (FOR RADIOLOGY& DIALYSIS ONLY) IV (11:37)
[2018-03-13] MEDS: LIDOCAINE 1% SDV 5 ML VIAL SQ (11:37)
[2018-03-13 13:16] LABS: BEDSIDE GLUCOSE 218 MG/DL (80-115)
[2018-03-13] MEDS: **NOTE PATIENT COMMENT** MISC XX (21:21)
[2018-03-13 21:30] LABS: BEDSIDE GLUCOSE 261 MG/DL (80-115)
[2018-03-13] MEDS: SIMVASTATIN 20 MG TAB PO (21:31)
[2018-03-13] MEDS: traZODone 100 MG TAB PO (21:32)
[2018-03-14] MEDS: **hydrALAZINE HCL** 25 MG TAB PO ×2 (05:11→12:50)
[2018-03-14 06:44] LABS: BEDSIDE GLUCOSE 216 MG/DL (80-115)
[2018-03-14 06:44] LABS: BEDSIDE GLUCOSE 256 MG/DL (80-115)
[2018-03-14] MEDS: CALCIUM CARBONATE 500 MG CHEW U/D PO ×2 (07:57→12:50)
[2018-03-14] MEDS: HumaLOG INSULIN (NovoLOG) PER UNIT SC ×2 (07:57→12:51)
[2018-03-14] MEDS: NORTRIPTYLINE 10 MG CAP PO (07:59)
[2018-03-14] MEDS: TORSEMIDE 100 MG TAB PO (08:00)
[2018-03-14] MEDS: DULoxetine 30 MG CAP (CYMBALTA) PO (08:01)
[2018-03-14] MEDS: rOPINIRole 1MG TAB PO (08:01)
[2018-03-14] MEDS: GABAPENTIN 100 MG CAP PO (08:01)
[2018-03-14] MEDS: METOPROLOL SUCC (TopROL XL) 50MG **XL** TAB PO (08:01)
[2018-03-14] MEDS: LACTOBACILLUS ACIDOPHILUS CAP (BACID) PO (08:01)
[2018-03-14] MEDS: PANTOPRAZOLE 40MG TAB (PROTONIX) PO (08:02)
[2018-03-14] MEDS: LEVOTHYROXINE 100MCG TABLET (0.1MG) PO (08:02)
[2018-03-14] MEDS: CALCIUM ACETATE 667 MG GELCAP PO ×2 (08:02→12:50)
[2018-03-14] MEDS: LEVEMIR (INSULIN DETEMIR) 1 UNITS/0.01ML SC (08:03)
[2018-03-14] MEDS: PERCOCET 5MG/325MG TAB PO (08:03)
[2018-03-14] MEDS: NYSTATIN 100,000 UNITS/GM TOPICAL PWD 15 GM TOP (09:09)
[2018-03-14 11:49] LABS: BEDSIDE GLUCOSE 255 MG/DL (80-115)
== END 2018-03-14 15:35 | DRG 981 ==
LOC: M ED 15:02 → M MSPAV 02-24 15:33 → M ED INP 22:11
PROVIDERS: Hospitalist
PROC: 0DB68ZX Excision of Stomach, Via Natural or Artificial Opening Endoscopic, Diagnostic (ICD-10-PCS; principal; 2018-03-11 08:24)
PROC: 0DBP8ZX Excision of Rectum, Via Natural or Artificial Opening Endoscopic, Diagnostic (ICD-10-PCS; 2018-03-11 08:24)
PROC: 0W3P8ZZ Control Bleeding in Gastrointestinal Tract, Via Natural or Artificial Opening Endoscopic (ICD-10-PCS; 2018-03-11 08:24)
PROC: 04CL3ZZ Extirpation of Matter from Left Femoral Artery, Percutaneous Approach (ICD-10-PCS; 2018-03-11 08:24)
PROC: 30233N1 Transfusion of Nonautologous Red Blood Cells into Peripheral Vein, Percutaneous Approach (ICD-10-PCS; 2018-03-11 08:24)
PROC: B41DYZZ Fluoroscopy of Aorta and Bilateral Lower Extremity Arteries using Other Contrast (ICD-10-PCS; 2018-03-11 08:24)
PROC: B41GYZZ Fluoroscopy of Left Lower Extremity Arteries using Other Contrast (ICD-10-PCS; 2018-03-11 08:24)
DX: E11.610 Type 2 diabetes mellitus with diabetic neuropathic arthropathy (principal); N18.6 End stage renal disease; I50.32 Chronic diastolic (congestive) heart failure; I13.2 Hypertensive heart and chronic kidney disease with heart failure and with stage 5 chronic kidney disease, or end stage renal disease; L03.116 Cellulitis of left lower limb; I87.312 Chronic venous hypertension (idiopathic) with ulcer of left lower extremity; E11.51 Type 2 diabetes mellitus with diabetic peripheral angiopathy without gangrene; K29.70 Gastritis, unspecified, without bleeding; E78.5 Hyperlipidemia, unspecified; I25.10 Atherosclerotic heart disease of native coronary artery without angina pectoris; E03.9 Hypothyroidism, unspecified; K21.9 Gastro-esophageal reflux disease without esophagitis; E87.5 Hyperkalemia; G47.33 Obstructive sleep apnea (adult) (pediatric); G25.81 Restless legs syndrome; M54.5 Low back pain; E11.40 Type 2 diabetes mellitus with diabetic neuropathy, unspecified; E11.319 Type 2 diabetes mellitus with unspecified diabetic retinopathy without macular edema; F32.9 Major depressive disorder, single episode, unspecified; F41.9 Anxiety disorder, unspecified; Z79.899 Other long term (current) drug therapy; Z88.8 Allergy status to other drugs, medicaments and biological substances; Z88.1 Allergy status to other antibiotic agents; Z79.4 Long term (current) use of insulin; D63.1 Anemia in chronic kidney disease; Z95.2 Presence of prosthetic heart valve; D69.6 Thrombocytopenia, unspecified; K44.9 Diaphragmatic hernia without obstruction or gangrene; K62.1 Rectal polyp; K64.8 Other hemorrhoids; K57.30 Diverticulosis of large intestine without perforation or abscess without bleeding

== ENCOUNTER 2018-03-14 15:20 | Inpatient (IN) | payer MEDICARE ==
[~2018-03-14 15:20] MED LIST changes: -BISACODYL 10 MG SUPP PR; +CYCLOBENZAPRINE 10 MG TAB PO; -FLEET ENEMA PR; -LIDOCAINE 5% (LIDODERM) PATCH TD; -MIRALAX *UNIT DOSE* 17GM PACKET PO; -ONDANSETRON 4MG/2ML VIAL (J2405) IM; +PERCOCET 5MG/325MG TAB PO; +oxyCODONE 5MG TAB PO
[2018-03-14] MEDS: rOPINIRole 1MG TAB PO ×2 (16:35→20:43)
[2018-03-14] MEDS: GABAPENTIN 100 MG CAP PO ×2 (16:35→20:43)
[2018-03-14 16:46] LABS: BEDSIDE GLUCOSE 270 MG/DL (80-115)
[2018-03-14] MEDS: TORSEMIDE 100 MG TAB PO (18:20)
[2018-03-14] MEDS: CALCIUM CARBONATE 500 MG CHEW U/D PO (18:20)
[2018-03-14] MEDS: CALCIUM ACETATE 667 MG GELCAP PO (18:20)
[2018-03-14] MEDS: HumaLOG INSULIN (NovoLOG) PER UNIT SC ×2 (18:21→20:12)
[2018-03-14] MEDS: **hydrALAZINE HCL** 25 MG TAB PO (18:21)
[2018-03-14 20:18] LABS: BEDSIDE GLUCOSE 240 MG/DL (80-115)
[2018-03-14] MEDS: NYSTATIN 100,000 UNITS/GM TOPICAL PWD 15 GM TOP (20:39)
[2018-03-14] MEDS: LEVEMIR (INSULIN DETEMIR) 1 UNITS/0.01ML SC (20:40)
[2018-03-14] MEDS: ONDANSETRON 4 MG TAB (S0181) PO (20:40)
[2018-03-14] MEDS: METOPROLOL SUCC (TopROL XL) 50MG **XL** TAB PO (20:42)
[2018-03-14] MEDS: SENNA 8.6 MG TAB (SENOKOT) PO (20:43)
[2018-03-14] MEDS: LACTOBACILLUS ACIDOPHILUS CAP (BACID) PO (20:43)
[2018-03-14] MEDS: SIMVASTATIN 20 MG TAB PO (20:43)
[2018-03-14] MEDS: traZODone 100 MG TAB PO (20:43)
[2018-03-14] MEDS: NORTRIPTYLINE 10 MG CAP PO (20:44)
[2018-03-14] MEDS: MORPHINE 15 MG SA TAB PO (20:44)
[2018-03-14] MEDS: **NOTE PATIENT COMMENT** MISC XX (20:46)
[2018-03-15] MEDS: **hydrALAZINE HCL** 25 MG TAB PO ×5 (00:55→23:18)
[2018-03-15 06:08] LABS: BEDSIDE GLUCOSE 143 MG/DL (80-115)
[2018-03-15] MEDS: LEVOTHYROXINE 100MCG TABLET (0.1MG) PO (06:19)
[2018-03-15] MEDS: NYSTATIN 100,000 UNITS/GM TOPICAL PWD 15 GM TOP ×2 (08:10→21:43)
[2018-03-15 08:11] LABS: BASO # 0.1 10^3/uL (0.0-0.2); BASO % 0.7 % (0.0-1.0); EOS # 0.3 10^3/uL (0.0-0.50); EOS % 3.7 % (0.0-3.0); HEMATOCRIT 36.5 % (36.0-47.0); HEMOGLOBIN 11.2 g/dl (12.0-15.5); IMMATURE GRANULOCYTE % 3.8 % (0-3.0); LYMPH # 1.3 10^3/uL (1.5-4.5); LYMPH % 14.2 % (24.0-44.0); MEAN CORPUSCULAR HEMOGLOBIN 28.3 pg (27.0-33.0); MEAN CORPUSCULAR HGB CONC 30.7 g/dl (32.0-36.5); MEAN CORPUSCULAR VOLUME 92.2 fl (80.0-96.0); MONO # 1.1 10^3/uL (0.0-0.8); MONO % 12.3 % (0.0-5.0); NEUTROPHILS % 65.3 % (36.0-66.0); PLATELET COUNT, AUTOMATED 141 10^3/uL (150-450); RED BLOOD COUNT 3.96 10^6/uL (4.00-5.40); RED CELL DISTRIBUTION WIDTH 21.3 % (11.5-14.5); WHITE BLOOD COUNT 9.2 10^3/uL (4.0-10.0)
[2018-03-15] MEDS: CALCIUM ACETATE 667 MG GELCAP PO ×3 (08:11→18:51)
[2018-03-15] MEDS: LEVEMIR (INSULIN DETEMIR) 1 UNITS/0.01ML SC ×2 (08:11→21:43)
[2018-03-15] MEDS: PANTOPRAZOLE 40MG TAB (PROTONIX) PO (08:11)
[2018-03-15] MEDS: METOPROLOL SUCC (TopROL XL) 50MG **XL** TAB PO ×2 (08:11→21:42)
[2018-03-15] MEDS: CALCIUM CARBONATE 500 MG CHEW U/D PO ×3 (08:11→18:51)
[2018-03-15] MEDS: DULoxetine 30 MG CAP (CYMBALTA) PO (08:11)
[2018-03-15] MEDS: HumaLOG INSULIN (NovoLOG) PER UNIT SC ×4 (08:11→21:00)
[2018-03-15] MEDS: MORPHINE 15 MG SA TAB PO ×2 (08:12→10:15)
[2018-03-15] MEDS: ACETAMINOPHEN TAB 650MG DOSE (2X325MG) PO ×2 (08:12→08:42)
[2018-03-15] MEDS: TORSEMIDE 100 MG TAB PO ×2 (08:12→18:51)
[2018-03-15] MEDS: GABAPENTIN 100 MG CAP PO ×3 (08:12→21:42)
[2018-03-15] MEDS: ALPRAZolam 0.25 MG TAB PO ×2 (08:12→13:58)
[2018-03-15] MEDS: LACTOBACILLUS ACIDOPHILUS CAP (BACID) PO ×2 (08:12→21:42)
[2018-03-15] MEDS: NORTRIPTYLINE 10 MG CAP PO ×2 (08:12→21:42)
[2018-03-15] MEDS: LIDOCAINE 5% (LIDODERM) PATCH TD (08:12)
[2018-03-15 08:35] LABS: ALBUMIN 3.2 GM/DL (3.2-5.2); ALKALINE PHOSPHATASE 404 U/L (45-117); ALT/SGPT 42 U/L (12-78); ANION GAP 10 MEQ/L (8-16); AST/SGOT 26 U/L (7-37); BILIRUBIN,TOTAL 0.6 MG/DL (0.2-1.0); BLOOD UREA NITROGEN 63 MG/DL (7-18); CALCIUM LEVEL 8.1 MG/DL (8.8-10.2); CARBON DIOXIDE LEVEL 25 MEQ/L (21-32); CHLORIDE LEVEL 101 MEQ/L (98-107); CREATININE FOR GFR 5.91 MG/DL (0.55-1.30); GLOMERULAR FILTRATION RATE 7.5 (>45); GLUCOSE, FASTING 132 MG/DL (70-100); POTASSIUM SERUM 4.4 MEQ/L (3.5-5.1); SODIUM LEVEL 136 MEQ/L (136-145); TOTAL PROTEIN 6.4 GM/DL (6.4-8.2)
[2018-03-15] MEDS ORDERED: IRON SUCROSE 100MG 5ML VIAL (J1756 PER 1MG) IV (09:00)
[2018-03-15] MEDS ORDERED: DARBEPOETIN 100 MCG/0.5 ML *DIALYSIS* SYRINGE (J0882) IV (09:00)
[2018-03-15] MEDS ORDERED: ALPRAZolam 0.25 MG TAB PO (10:00)
[2018-03-15] MEDS: HEPARIN 1,000 UNITS/ML 10ML VIAL (FOR RADIOLOGY& DIALYSIS ONLY) IV (10:15)
[2018-03-15] MEDS: LIDOCAINE 1% SDV 5 ML VIAL SQ (10:15)
[2018-03-15] MEDS: rOPINIRole 1MG TAB PO ×3 (10:15→21:42)
[2018-03-15 11:36] LABS: BEDSIDE GLUCOSE 189 MG/DL (80-115)
[2018-03-15 19:04] LABS: BEDSIDE GLUCOSE 167 MG/DL (80-115)
[2018-03-15] MEDS: **NOTE PATIENT COMMENT** MISC XX (21:00)
[2018-03-15 21:39] LABS: BEDSIDE GLUCOSE 224 MG/DL (80-115)
[2018-03-15] MEDS: SENNA 8.6 MG TAB (SENOKOT) PO (21:42)
[2018-03-15] MEDS: traZODone 100 MG TAB PO (21:42)
[2018-03-15] MEDS: SIMVASTATIN 20 MG TAB PO (21:42)
[2018-03-16 06:46] LABS: BEDSIDE GLUCOSE 177 MG/DL (80-115)
[2018-03-16] MEDS: LEVOTHYROXINE 100MCG TABLET (0.1MG) PO (06:46)
[2018-03-16] MEDS: **hydrALAZINE HCL** 25 MG TAB PO ×3 (06:46→17:26)
[2018-03-16] MEDS: MORPHINE 15 MG SA TAB PO (06:47)
[2018-03-16] MEDS: CALCIUM CARBONATE 500 MG CHEW U/D PO ×3 (08:11→17:27)
[2018-03-16] MEDS: DULoxetine 30 MG CAP (CYMBALTA) PO (08:12)
[2018-03-16] MEDS: LEVEMIR (INSULIN DETEMIR) 1 UNITS/0.01ML SC ×2 (08:12→21:45)
[2018-03-16] MEDS: LACTOBACILLUS ACIDOPHILUS CAP (BACID) PO ×2 (08:12→21:44)
[2018-03-16] MEDS: GABAPENTIN 100 MG CAP PO ×3 (08:12→21:44)
[2018-03-16] MEDS: HumaLOG INSULIN (NovoLOG) PER UNIT SC ×4 (08:12→21:00)
[2018-03-16] MEDS: PANTOPRAZOLE 40MG TAB (PROTONIX) PO (08:12)
[2018-03-16] MEDS: METOPROLOL SUCC (TopROL XL) 50MG **XL** TAB PO ×2 (08:13→21:45)
[2018-03-16] MEDS: TORSEMIDE 100 MG TAB PO ×2 (08:13→17:26)
[2018-03-16] MEDS: rOPINIRole 1MG TAB PO ×3 (08:13→21:44)
[2018-03-16] MEDS: NORTRIPTYLINE 10 MG CAP PO ×2 (08:13→21:44)
[2018-03-16] MEDS: CALCIUM ACETATE 667 MG GELCAP PO ×3 (08:13→17:26)
[2018-03-16] MEDS: LIDOCAINE 5% (LIDODERM) PATCH TD (08:14)
[2018-03-16] MEDS: NYSTATIN 100,000 UNITS/GM TOPICAL PWD 15 GM TOP ×2 (08:15→21:45)
[2018-03-16 11:50] LABS: BEDSIDE GLUCOSE 205 MG/DL (80-115)
[2018-03-16 16:34] LABS: BEDSIDE GLUCOSE 203 MG/DL (80-115)
[2018-03-16 20:54] LABS: BEDSIDE GLUCOSE 210 MG/DL (80-115)
[2018-03-16] MEDS: **NOTE PATIENT COMMENT** MISC XX (21:00)
[2018-03-16] MEDS: SIMVASTATIN 20 MG TAB PO (21:44)
[2018-03-16] MEDS: traZODone 100 MG TAB PO (21:44)
[2018-03-16] MEDS: SENNA 8.6 MG TAB (SENOKOT) PO (21:44)
[2018-03-16] MEDS: ONDANSETRON 4 MG TAB (S0181) PO (22:34)
[2018-03-17] MEDS: **hydrALAZINE HCL** 25 MG TAB PO ×4 (00:28→18:17)
[2018-03-17 06:48] LABS: BEDSIDE GLUCOSE 194 MG/DL (80-115)
[2018-03-17] MEDS: LEVOTHYROXINE 100MCG TABLET (0.1MG) PO (07:09)
[2018-03-17] MEDS: MORPHINE 15 MG SA TAB PO (07:10)
[2018-03-17 08:39] LABS: BASO % 0.5 % (0.0-1.0); EOS # 0.3 10^3/uL (0.0-0.50); EOS % 4.2 % (0.0-3.0); HEMATOCRIT 36.2 % (36.0-47.0); HEMOGLOBIN 10.6 g/dl (12.0-15.5); IMMATURE GRANULOCYTE % 1.9 % (0-3.0); LYMPH # 1.1 10^3/uL (1.5-4.5); LYMPH % 18.1 % (24.0-44.0); MEAN CORPUSCULAR HEMOGLOBIN 27.8 pg (27.0-33.0); MEAN CORPUSCULAR HGB CONC 29.3 g/dl (32.0-36.5); MONO # 0.9 10^3/uL (0.0-0.8); MONO % 15.4 % (0.0-5.0); NEUTROPHILS # 3.5 10^3/uL (1.8-7.7); NEUTROPHILS % 59.9 % (36.0-66.0); PLATELET COUNT, AUTOMATED 130 10^3/uL (150-450); RED BLOOD COUNT 3.81 10^6/uL (4.00-5.40); RED CELL DISTRIBUTION WIDTH 21.7 % (11.5-14.5); WHITE BLOOD COUNT 5.9 10^3/uL (4.0-10.0)
[2018-03-17] MEDS: rOPINIRole 1MG TAB PO ×3 (08:41→21:43)
[2018-03-17] MEDS: CALCIUM CARBONATE 500 MG CHEW U/D PO ×3 (08:41→17:30)
[2018-03-17] MEDS: NORTRIPTYLINE 10 MG CAP PO ×2 (08:41→21:43)
[2018-03-17] MEDS: LIDOCAINE 5% (LIDODERM) PATCH TD (08:41)
[2018-03-17] MEDS: DULoxetine 30 MG CAP (CYMBALTA) PO (08:41)
[2018-03-17] MEDS: LEVEMIR (INSULIN DETEMIR) 1 UNITS/0.01ML SC ×2 (08:42→21:44)
[2018-03-17] MEDS: NYSTATIN 100,000 UNITS/GM TOPICAL PWD 15 GM TOP ×2 (08:42→21:45)
[2018-03-17] MEDS: HumaLOG INSULIN (NovoLOG) PER UNIT SC ×4 (08:42→21:00)
[2018-03-17] MEDS: CALCIUM ACETATE 667 MG GELCAP PO ×3 (08:42→18:17)
[2018-03-17] MEDS: PANTOPRAZOLE 40MG TAB (PROTONIX) PO (08:43)
[2018-03-17] MEDS: LACTOBACILLUS ACIDOPHILUS CAP (BACID) PO ×2 (08:43→21:43)
[2018-03-17] MEDS: GABAPENTIN 100 MG CAP PO ×3 (08:43→21:41)
[2018-03-17] MEDS: METOPROLOL SUCC (TopROL XL) 50MG **XL** TAB PO ×2 (08:43→21:42)
[2018-03-17] MEDS: TORSEMIDE 100 MG TAB PO ×2 (08:44→18:16)
[2018-03-17 09:19] LABS: ANION GAP 9 MEQ/L (8-16); BLOOD UREA NITROGEN 57 MG/DL (7-18); CALCIUM LEVEL 8.1 MG/DL (8.8-10.2); CARBON DIOXIDE LEVEL 27 MEQ/L (21-32); CHLORIDE LEVEL 102 MEQ/L (98-107); CREATININE FOR GFR 5.87 MG/DL (0.55-1.30); GLOMERULAR FILTRATION RATE 7.6 (>45); GLUCOSE, FASTING 162 MG/DL (70-100); POTASSIUM SERUM 4.8 MEQ/L (3.5-5.1); SODIUM LEVEL 138 MEQ/L (136-145)
[2018-03-17] MEDS: LIDOCAINE 1% SDV 5 ML VIAL SQ (10:45)
[2018-03-17] MEDS: HEPARIN 1,000 UNITS/ML 10ML VIAL (FOR RADIOLOGY& DIALYSIS ONLY) IV (10:45)
[2018-03-17 11:40] LABS: BEDSIDE GLUCOSE 173 MG/DL (80-115)
[2018-03-17] MEDS: ALPRAZolam 0.25 MG TAB PO (11:47)
[2018-03-17 16:45] LABS: BEDSIDE GLUCOSE 178 MG/DL (80-115)
[2018-03-17 21:11] LABS: BEDSIDE GLUCOSE 171 MG/DL (80-115)
[2018-03-17] MEDS: SENNA 8.6 MG TAB (SENOKOT) PO (21:41)
[2018-03-17] MEDS: traZODone 100 MG TAB PO (21:41)
[2018-03-17] MEDS: SIMVASTATIN 20 MG TAB PO (21:41)
[2018-03-18] MEDS: **hydrALAZINE HCL** 25 MG TAB PO ×4 (01:08→17:41)
[2018-03-18] MEDS: LEVOTHYROXINE 100MCG TABLET (0.1MG) PO (06:17)
[2018-03-18] MEDS: MORPHINE 15 MG SA TAB PO (06:18)
[2018-03-18 06:50] LABS: BEDSIDE GLUCOSE 117 MG/DL (80-115)
[2018-03-18] MEDS: HumaLOG INSULIN (NovoLOG) PER UNIT SC ×4 (08:13→20:17)
[2018-03-18] MEDS: LEVEMIR (INSULIN DETEMIR) 1 UNITS/0.01ML SC ×2 (08:13→20:17)
[2018-03-18] MEDS: CALCIUM CARBONATE 500 MG CHEW U/D PO ×3 (08:13→17:40)
[2018-03-18] MEDS: DULoxetine 30 MG CAP (CYMBALTA) PO (08:14)
[2018-03-18] MEDS: PANTOPRAZOLE 40MG TAB (PROTONIX) PO (08:14)
[2018-03-18] MEDS: LACTOBACILLUS ACIDOPHILUS CAP (BACID) PO ×2 (08:14→20:19)
[2018-03-18] MEDS: TORSEMIDE 100 MG TAB PO ×2 (08:14→17:41)
[2018-03-18] MEDS: METOPROLOL SUCC (TopROL XL) 50MG **XL** TAB PO ×2 (08:14→20:18)
[2018-03-18] MEDS: CALCIUM ACETATE 667 MG GELCAP PO ×3 (08:14→17:41)
[2018-03-18] MEDS: GABAPENTIN 100 MG CAP PO ×3 (08:14→20:19)
[2018-03-18] MEDS: rOPINIRole 1MG TAB PO ×3 (08:14→20:19)
[2018-03-18] MEDS: NORTRIPTYLINE 10 MG CAP PO ×2 (08:14→20:18)
[2018-03-18] MEDS: NYSTATIN 100,000 UNITS/GM TOPICAL PWD 15 GM TOP ×2 (08:15→20:19)
[2018-03-18 11:53] LABS: BEDSIDE GLUCOSE 133 MG/DL (80-115)
[2018-03-18 16:56] LABS: BEDSIDE GLUCOSE 187 MG/DL (80-115)
[2018-03-18 20:02] LABS: BEDSIDE GLUCOSE 242 MG/DL (80-115)
[2018-03-18] MEDS: SENNA 8.6 MG TAB (SENOKOT) PO (20:18)
[2018-03-18] MEDS: SIMVASTATIN 20 MG TAB PO (20:18)
[2018-03-18] MEDS: traZODone 100 MG TAB PO (20:19)
[2018-03-19] MEDS: **hydrALAZINE HCL** 25 MG TAB PO ×4 (00:28→18:39)
[2018-03-19] MEDS: LEVOTHYROXINE 100MCG TABLET (0.1MG) PO (05:49)
[2018-03-19 06:58] LABS: BEDSIDE GLUCOSE 186 MG/DL (80-115)
[2018-03-19] MEDS: MORPHINE 15 MG SA TAB PO (07:00)
[2018-03-19] MEDS: METOPROLOL SUCC (TopROL XL) 50MG **XL** TAB PO ×2 (08:40→21:57)
[2018-03-19] MEDS: GABAPENTIN 100 MG CAP PO ×3 (08:40→21:56)
[2018-03-19] MEDS: rOPINIRole 1MG TAB PO ×3 (08:41→21:56)
[2018-03-19] MEDS: NORTRIPTYLINE 10 MG CAP PO ×2 (08:41→21:55)
[2018-03-19] MEDS: LACTOBACILLUS ACIDOPHILUS CAP (BACID) PO ×2 (08:41→21:55)
[2018-03-19] MEDS: CALCIUM CARBONATE 500 MG CHEW U/D PO ×3 (08:41→18:22)
[2018-03-19] MEDS: LEVEMIR (INSULIN DETEMIR) 1 UNITS/0.01ML SC ×2 (08:41→21:00)
[2018-03-19] MEDS: PANTOPRAZOLE 40MG TAB (PROTONIX) PO (08:41)
[2018-03-19] MEDS: DULoxetine 30 MG CAP (CYMBALTA) PO (08:41)
[2018-03-19] MEDS: TORSEMIDE 100 MG TAB PO ×2 (08:41→18:23)
[2018-03-19] MEDS: HumaLOG INSULIN (NovoLOG) PER UNIT SC ×4 (08:41→21:00)
[2018-03-19] MEDS: CALCIUM ACETATE 667 MG GELCAP PO ×3 (08:42→18:23)
[2018-03-19] MEDS: NYSTATIN 100,000 UNITS/GM TOPICAL PWD 15 GM TOP (08:42)
[2018-03-19 12:00] LABS: BEDSIDE GLUCOSE 173 MG/DL (80-115)
[2018-03-19 17:30] LABS: BEDSIDE GLUCOSE 132 MG/DL (80-115)
[2018-03-19] MEDS: SENNA 8.6 MG TAB (SENOKOT) PO (21:56)
[2018-03-19] MEDS: traZODone 100 MG TAB PO (21:56)
[2018-03-19] MEDS: SIMVASTATIN 20 MG TAB PO (21:57)
[2018-03-19 22:11] LABS: BEDSIDE GLUCOSE 176 MG/DL (80-115)
[2018-03-20] MEDS: **hydrALAZINE HCL** 25 MG TAB PO ×4 (01:04→18:00)
[2018-03-20] MEDS: LEVOTHYROXINE 100MCG TABLET (0.1MG) PO (05:01)
[2018-03-20] MEDS: MORPHINE 15 MG SA TAB PO (05:01)
[2018-03-20 07:02] LABS: HEMATOCRIT 36.7 % (36.0-47.0); HEMOGLOBIN 10.8 g/dl (12.0-15.5); MEAN CORPUSCULAR HEMOGLOBIN 28.3 pg (27.0-33.0); MEAN CORPUSCULAR HGB CONC 29.4 g/dl (32.0-36.5); MEAN CORPUSCULAR VOLUME 96.1 fl (80.0-96.0); PLATELET COUNT, AUTOMATED 135 10^3/uL (150-450); RED BLOOD COUNT 3.82 10^6/uL (4.00-5.40); RED CELL DISTRIBUTION WIDTH 21.3 % (11.5-14.5); WHITE BLOOD COUNT 7.4 10^3/uL (4.0-10.0)
[2018-03-20] MEDS: HumaLOG INSULIN (NovoLOG) PER UNIT SC ×4 (07:30→20:46)
[2018-03-20 07:35] LABS: ALBUMIN 3.4 GM/DL (3.2-5.2); ALBUMIN/GLOBULIN RATIO 1.13 (1.00-1.93); ALKALINE PHOSPHATASE 389 U/L (45-117); ALT/SGPT 34 U/L (12-78); ANION GAP 11 MEQ/L (8-16); AST/SGOT 23 U/L (7-37); BILIRUBIN,TOTAL 0.6 MG/DL (0.2-1.0); BLOOD UREA NITROGEN 74 MG/DL (7-18); CALCIUM LEVEL 7.8 MG/DL (8.8-10.2); CARBON DIOXIDE LEVEL 28 MEQ/L (21-32); CHLORIDE LEVEL 98 MEQ/L (98-107); CREATININE FOR GFR 7.16 MG/DL (0.55-1.30); GLUCOSE, FASTING 93 MG/DL (70-100); SODIUM LEVEL 137 MEQ/L (136-145); TOTAL PROTEIN 6.4 GM/DL (6.4-8.2)
[2018-03-20] MEDS: CALCIUM ACETATE 667 MG GELCAP PO ×3 (09:38→18:00)
[2018-03-20] MEDS: METOPROLOL SUCC (TopROL XL) 50MG **XL** TAB PO ×2 (09:38→21:01)
[2018-03-20] MEDS: PANTOPRAZOLE 40MG TAB (PROTONIX) PO (09:38)
[2018-03-20] MEDS: DULoxetine 30 MG CAP (CYMBALTA) PO (09:38)
[2018-03-20] MEDS: TORSEMIDE 100 MG TAB PO ×2 (09:38→16:12)
[2018-03-20] MEDS: NORTRIPTYLINE 10 MG CAP PO ×2 (09:39→20:55)
[2018-03-20] MEDS: rOPINIRole 1MG TAB PO ×3 (09:39→20:55)
[2018-03-20] MEDS: GABAPENTIN 100 MG CAP PO ×3 (09:39→20:55)
[2018-03-20] MEDS: LACTOBACILLUS ACIDOPHILUS CAP (BACID) PO ×2 (09:39→21:03)
[2018-03-20] MEDS: CALCIUM CARBONATE 500 MG CHEW U/D PO ×3 (09:39→16:12)
[2018-03-20] MEDS: LEVEMIR (INSULIN DETEMIR) 1 UNITS/0.01ML SC ×2 (09:40→21:00)
[2018-03-20] MEDS: CLOPIDOGREL 75 MG TAB PO (11:09)
[2018-03-20 11:36] LABS: BEDSIDE GLUCOSE 126 MG/DL (80-115)
[2018-03-20] MEDS: MIRALAX *UNIT DOSE* 17GM PACKET PO (12:48)
[2018-03-20] MEDS: SENOKOT S TAB PO ×2 (12:48→20:55)
[2018-03-20] MEDS: ALPRAZolam 0.25 MG TAB PO (16:12)
[2018-03-20] MEDS: HEPARIN 1,000 UNITS/ML 10ML VIAL (FOR RADIOLOGY& DIALYSIS ONLY) IV (16:28)
[2018-03-20] MEDS: LIDOCAINE 1% SDV 5 ML VIAL SQ (16:28)
[2018-03-20 17:53] LABS: BEDSIDE GLUCOSE 112 MG/DL (80-115)
[2018-03-20 20:50] LABS: BEDSIDE GLUCOSE 117 MG/DL (80-115)
[2018-03-20] MEDS: SIMVASTATIN 20 MG TAB PO (20:55)
[2018-03-20] MEDS: traZODone 100 MG TAB PO (21:01)
[2018-03-21] MEDS: **hydrALAZINE HCL** 25 MG TAB PO ×4 (00:18→17:26)
[2018-03-21] MEDS: LEVOTHYROXINE 100MCG TABLET (0.1MG) PO (05:48)
[2018-03-21 05:56] LABS: BEDSIDE GLUCOSE 84 MG/DL (80-115)
[2018-03-21] MEDS: HumaLOG INSULIN (NovoLOG) PER UNIT SC ×4 (07:25→21:00)
[2018-03-21] MEDS: CALCIUM CARBONATE 500 MG CHEW U/D PO ×3 (07:28→17:26)
[2018-03-21] MEDS: CALCIUM ACETATE 667 MG GELCAP PO ×3 (07:28→17:26)
[2018-03-21] MEDS: DULoxetine 30 MG CAP (CYMBALTA) PO (08:23)
[2018-03-21] MEDS: rOPINIRole 1MG TAB PO ×3 (08:24→21:36)
[2018-03-21] MEDS: CLOPIDOGREL 75 MG TAB PO (08:25)
[2018-03-21] MEDS: LACTOBACILLUS ACIDOPHILUS CAP (BACID) PO ×2 (08:25→21:38)
[2018-03-21] MEDS: NORTRIPTYLINE 10 MG CAP PO ×2 (08:25→21:40)
[2018-03-21] MEDS: SENOKOT S TAB PO ×2 (08:25→21:38)
[2018-03-21] MEDS: PANTOPRAZOLE 40MG TAB (PROTONIX) PO (08:25)
[2018-03-21] MEDS: TORSEMIDE 100 MG TAB PO ×2 (08:25→16:08)
[2018-03-21] MEDS: METOPROLOL SUCC (TopROL XL) 50MG **XL** TAB PO ×2 (08:25→21:38)
[2018-03-21] MEDS: LEVEMIR (INSULIN DETEMIR) 1 UNITS/0.01ML SC ×2 (08:26→21:35)
[2018-03-21] MEDS: MIRALAX *UNIT DOSE* 17GM PACKET PO (08:26)
[2018-03-21] MEDS: GABAPENTIN 100 MG CAP PO ×3 (08:26→21:38)
[2018-03-21 11:40] LABS: BEDSIDE GLUCOSE 133 MG/DL (80-115)
[2018-03-21] MEDS ORDERED: DARBEPOETIN 100 MCG/0.5 ML *DIALYSIS* SYRINGE (J0882) IV (11:45)
[2018-03-21 14:14] LABS: BASO % 0.5 % (0.0-1.0); EOS # 0.2 10^3/uL (0.0-0.50); EOS % 3.2 % (0.0-3.0); HEMATOCRIT 37.8 % (36.0-47.0); HEMOGLOBIN 11.3 g/dl (12.0-15.5); IMMATURE GRANULOCYTE % 0.5 % (0-3.0); LYMPH # 0.8 10^3/uL (1.5-4.5); LYMPH % 14.3 % (24.0-44.0); MEAN CORPUSCULAR HEMOGLOBIN 28.5 pg (27.0-33.0); MEAN CORPUSCULAR HGB CONC 29.9 g/dl (32.0-36.5); MEAN CORPUSCULAR VOLUME 95.5 fl (80.0-96.0); MONO # 0.8 10^3/uL (0.0-0.8); MONO % 13.8 % (0.0-5.0); NEUTROPHILS # 3.8 10^3/uL (1.8-7.7); NEUTROPHILS % 67.7 % (36.0-66.0); PLATELET COUNT, AUTOMATED 130 10^3/uL (150-450); RED BLOOD COUNT 3.96 10^6/uL (4.00-5.40); RED CELL DISTRIBUTION WIDTH 21.3 % (11.5-14.5); WHITE BLOOD COUNT 5.6 10^3/uL (4.0-10.0)
[2018-03-21 15:16] LABS: ANION GAP 6 MEQ/L (8-16); BLOOD UREA NITROGEN 43 MG/DL (7-18); CARBON DIOXIDE LEVEL 30 MEQ/L (21-32); CHLORIDE LEVEL 100 MEQ/L (98-107); CREATININE FOR GFR 5.28 MG/DL (0.55-1.30); GLOMERULAR FILTRATION RATE 8.6 (>45); GLUCOSE, FASTING 102 MG/DL (70-100); POTASSIUM SERUM 5.1 MEQ/L (3.5-5.1); SODIUM LEVEL 136 MEQ/L (136-145)
[2018-03-21] MEDS: BISACODYL 5 MG TAB PO (16:07)
[2018-03-21 16:58] LABS: BEDSIDE GLUCOSE 140 MG/DL (80-115)
[2018-03-21 20:41] LABS: BEDSIDE GLUCOSE 208 MG/DL (80-115)
[2018-03-21] MEDS: traZODone 100 MG TAB PO (21:38)
[2018-03-21] MEDS: SIMVASTATIN 20 MG TAB PO (21:38)
[2018-03-22] MEDS: **hydrALAZINE HCL** 25 MG TAB PO ×4 (00:47→17:07)
[2018-03-22] MEDS: LEVOTHYROXINE 100MCG TABLET (0.1MG) PO (05:22)
[2018-03-22 05:32] LABS: BEDSIDE GLUCOSE 109 MG/DL (80-115)
[2018-03-22] MEDS: HumaLOG INSULIN (NovoLOG) PER UNIT SC ×4 (06:56→20:58)
[2018-03-22] MEDS: PANTOPRAZOLE 40MG TAB (PROTONIX) PO (08:41)
[2018-03-22] MEDS: CALCIUM CARBONATE 500 MG CHEW U/D PO ×3 (08:41→17:07)
[2018-03-22] MEDS: CLOPIDOGREL 75 MG TAB PO (08:41)
[2018-03-22] MEDS: METOPROLOL SUCC (TopROL XL) 50MG **XL** TAB PO ×2 (08:41→20:57)
[2018-03-22] MEDS: GABAPENTIN 100 MG CAP PO ×3 (08:41→20:57)
[2018-03-22] MEDS: SENOKOT S TAB PO ×2 (08:41→20:57)
[2018-03-22] MEDS: NORTRIPTYLINE 10 MG CAP PO ×2 (08:42→20:57)
[2018-03-22] MEDS: LEVEMIR (INSULIN DETEMIR) 1 UNITS/0.01ML SC ×2 (08:42→20:58)
[2018-03-22] MEDS: DULoxetine 30 MG CAP (CYMBALTA) PO (08:42)
[2018-03-22] MEDS: MIRALAX *UNIT DOSE* 17GM PACKET PO (08:42)
[2018-03-22] MEDS: LACTOBACILLUS ACIDOPHILUS CAP (BACID) PO ×2 (08:42→20:57)
[2018-03-22] MEDS: rOPINIRole 1MG TAB PO ×3 (08:42→20:56)
[2018-03-22] MEDS: TORSEMIDE 100 MG TAB PO ×2 (08:42→17:07)
[2018-03-22] MEDS: CALCIUM ACETATE 667 MG GELCAP PO ×3 (08:42→17:06)
[2018-03-22 11:49] LABS: BEDSIDE GLUCOSE 179 MG/DL (80-115)
[2018-03-22] MEDS: ALPRAZolam 0.25 MG TAB PO (12:20)
[2018-03-22] MEDS: HEPARIN 1,000 UNITS/ML 10ML VIAL (FOR RADIOLOGY& DIALYSIS ONLY) IV (13:30)
[2018-03-22] MEDS: LIDOCAINE 1% SDV 5 ML VIAL SQ (13:30)
[2018-03-22 17:17] LABS: BEDSIDE GLUCOSE 83 MG/DL (80-115)
[2018-03-22] MEDS: SIMVASTATIN 20 MG TAB PO (20:56)
[2018-03-22] MEDS: traZODone 100 MG TAB PO (20:57)
[2018-03-22 20:59] LABS: BEDSIDE GLUCOSE 177 MG/DL (80-115)
[2018-03-23] MEDS: **hydrALAZINE HCL** 25 MG TAB PO ×2 (00:02→06:01)
[2018-03-23] MEDS: LEVOTHYROXINE 100MCG TABLET (0.1MG) PO (06:01)
[2018-03-23] MEDS: ACETAMINOPHEN TAB 650MG DOSE (2X325MG) PO (06:29)
[2018-03-23] MEDS: HumaLOG INSULIN (NovoLOG) PER UNIT SC (07:30)
[2018-03-23 08:02] LABS: BEDSIDE GLUCOSE 93 MG/DL (80-115)
[2018-03-23] MEDS: CALCIUM CARBONATE 500 MG CHEW U/D PO (08:30)
[2018-03-23] MEDS: NORTRIPTYLINE 10 MG CAP PO (08:30)
[2018-03-23] MEDS: METOPROLOL SUCC (TopROL XL) 50MG **XL** TAB PO (08:30)
[2018-03-23] MEDS: CLOPIDOGREL 75 MG TAB PO (08:31)
[2018-03-23] MEDS: rOPINIRole 1MG TAB PO (08:31)
[2018-03-23] MEDS: PANTOPRAZOLE 40MG TAB (PROTONIX) PO (08:31)
[2018-03-23] MEDS: TORSEMIDE 100 MG TAB PO (08:31)
[2018-03-23] MEDS: CALCIUM ACETATE 667 MG GELCAP PO (08:31)
[2018-03-23] MEDS: LACTOBACILLUS ACIDOPHILUS CAP (BACID) PO (08:31)
[2018-03-23] MEDS: MIRALAX *UNIT DOSE* 17GM PACKET PO (08:31)
[2018-03-23] MEDS: GABAPENTIN 100 MG CAP PO (08:31)
[2018-03-23] MEDS: SENOKOT S TAB PO (08:31)
[2018-03-23] MEDS: DULoxetine 30 MG CAP (CYMBALTA) PO (08:31)
[2018-03-23] MEDS: LEVEMIR (INSULIN DETEMIR) 1 UNITS/0.01ML SC (08:32)
== END 2018-03-23 12:30 | disposition home health service (06) | DRG 638 ==
LOC: M PM&R 15:20
PROVIDERS: Physical Medicine & Rehabilitation
PROC: 5A1D70Z Performance of Urinary Filtration, Intermittent, Less than 6 Hours Per Day (ICD-10-PCS; principal; 2018-03-15)
DX: E11.618 Type 2 diabetes mellitus with other diabetic arthropathy (principal); I50.32 Chronic diastolic (congestive) heart failure; D62 Acute posthemorrhagic anemia; L03.116 Cellulitis of left lower limb; N18.6 End stage renal disease; E03.9 Hypothyroidism, unspecified; K21.9 Gastro-esophageal reflux disease without esophagitis; F32.9 Major depressive disorder, single episode, unspecified; I25.2 Old myocardial infarction; E11.319 Type 2 diabetes mellitus with unspecified diabetic retinopathy without macular edema; E11.40 Type 2 diabetes mellitus with diabetic neuropathy, unspecified; E78.5 Hyperlipidemia, unspecified; D63.1 Anemia in chronic kidney disease; E66.9 Obesity, unspecified; Z68.36 Body mass index [BMI] 36.0-36.9, adult; G47.33 Obstructive sleep apnea (adult) (pediatric); Z99.2 Dependence on renal dialysis; Z79.899 Other long term (current) drug therapy; Z91.19 Patient's noncompliance with other medical treatment and regimen; M24.4 Recurrent dislocation of joint; I87.8 Other specified disorders of veins; Z79.4 Long term (current) use of insulin

== ENCOUNTER → 2018-04-27 | Outpatient (REF) | payer MEDICARE | LOC: M LAB REF 18:58 | DX: L97.512 Non-pressure chronic ulcer of other part of right foot with fat layer exposed (principal) | CPT/HCPCS: 87186 ==

== ENCOUNTER 2018-05-05 14:55 | Emergency (ER) | payer MEDICARE ==
[2018-05-05] MEDS: NS 1,000 ML IV (15:30)
[2018-05-05 15:43] LABS: BASO % 0.4 % (0.0-1.0); EOS # 0.2 10^3/uL (0.0-0.50); EOS % 2.1 % (0.0-3.0); HEMATOCRIT 30.7 % (36.0-47.0); HEMOGLOBIN 9.7 g/dl (12.0-15.5); IMMATURE GRANULOCYTE % 1.1 % (0-3.0); LYMPH # 0.7 10^3/uL (1.5-4.5); LYMPH % 9.9 % (24.0-44.0); MEAN CORPUSCULAR HEMOGLOBIN 30.2 pg (27.0-33.0); MEAN CORPUSCULAR HGB CONC 31.6 g/dl (32.0-36.5); MEAN CORPUSCULAR VOLUME 95.6 fl (80.0-96.0); MONO # 0.8 10^3/uL (0.0-0.8); MONO % 10.7 % (0.0-5.0); NEUTROPHILS # 5.5 10^3/uL (1.8-7.7); NEUTROPHILS % 75.8 % (36.0-66.0); RED BLOOD COUNT 3.21 10^6/uL (4.00-5.40); RED CELL DISTRIBUTION WIDTH 17.9 % (11.5-14.5); WHITE BLOOD COUNT 7.2 10^3/uL (4.0-10.0)
[2018-05-05 15:48] LABS: PLATELET COUNT, AUTOMATED 98 10^3/uL (150-450)
[2018-05-05 15:49] LABS: PLATELET F 99
[2018-05-05 15:53] LABS: INR 1.05; PROTHROMBIN TIME 13.8 SECONDS (12.4-14.5)
[2018-05-05 16:05] LABS: LACTIC ACID SEPSIS PROTOCOL 0.7 MMOL/L (0.4-2.0)
[2018-05-05 16:16] LABS: ALBUMIN 2.9 GM/DL (3.2-5.2); ALBUMIN/GLOBULIN RATIO 0.97 (1.00-1.93); ALKALINE PHOSPHATASE 526 U/L (45-117); ALT/SGPT 67 U/L (12-78); ANION GAP 10 MEQ/L (8-16); AST/SGOT 47 U/L (7-37); BILIRUBIN,DIRECT 0.3 MG/DL (0.0-0.2); BILIRUBIN,TOTAL 0.6 MG/DL (0.2-1.0); BLOOD UREA NITROGEN 65 MG/DL (7-18); CALCIUM LEVEL 6.8 MG/DL (8.8-10.2); CARBON DIOXIDE LEVEL 26 MEQ/L (21-32); CHLORIDE LEVEL 102 MEQ/L (98-107); CPK CREATINE PHOSPHOKINASE 141 U/L (26-192); CREATININE FOR GFR 4.93 MG/DL (0.55-1.30); GLOMERULAR FILTRATION RATE 9.3 (>45); GLUCOSE, FASTING 86 MG/DL (70-100); LIPASE 293 U/L (73-393); POTASSIUM SERUM 4.7 MEQ/L (3.5-5.1); SODIUM LEVEL 138 MEQ/L (136-145); TOTAL PROTEIN 5.9 GM/DL (6.4-8.2); TROPONIN I < 0.02 NG/ML (< 0.10)
[2018-05-05 16:22] LABS: CK-MB VALUE MASS 7.2 NG/ML (<3.6); NT-PRO BNP 10567 PG/ML (<125)
== END 2018-05-05 17:39 | disposition home or self-care (01) ==
LOC: M ED 14:55
DX: N18.6 End stage renal disease (principal); L03.115 Cellulitis of right lower limb; I50.9 Heart failure, unspecified; E11.9 Type 2 diabetes mellitus without complications; I10 Essential (primary) hypertension; Z79.4 Long term (current) use of insulin; Z79.899 Other long term (current) drug therapy; Z88.1 Allergy status to other antibiotic agents; Z88.8 Allergy status to other drugs, medicaments and biological substances
CPT/HCPCS: 71045

== ENCOUNTER → 2018-05-11 | Outpatient (CLI) | payer MEDICARE ==
[~2018-05-11] MED LIST changes: -CYCLOBENZAPRINE 10 MG TAB PO; -DEXTROSE 50% 50 ML SYRINGE IV; -EUCERIN 120GM CREAM TOP; -GLUCAGON FOR INJ 1 MG VIAL (J1610) SC; -GLUCOSE 4 GM CHEW TABLET PO; +ISOVUE-300 61% 50ML VIAL (Q9967) As Ordered; +LIDOCAINE 2% MDV 20 ML VIAL As Ordered; +MIDAZOLAM INJ 2 MG/2 ML VIAL (J2250) As Ordered; -MOM 30ML SUSPENSION UDC PO; -NITROGLYCERIN 0.4 MG SUBL TABLET SL; -PERCOCET 5MG/325MG TAB PO; +fentaNYL 100 MCG/2 ML INJECTION (J3010) As Ordered; -oxyCODONE 5MG TAB PO
== END | disposition home or self-care (01) ==
LOC: M IRPRO 07:37
DX: T82.858A Stenosis of other vascular prosthetic devices, implants and grafts, initial encounter (principal); N18.6 End stage renal disease
CPT/HCPCS: 36902

== ENCOUNTER → 2018-06-22 | Outpatient (REF) | payer MEDICARE | LOC: M LAB REF 10:17 | DX: L03.031 Cellulitis of right toe (principal) | CPT/HCPCS: 87186 ==

== ENCOUNTER → 2018-07-06 | Outpatient (REF) | payer MEDICARE | LOC: M LAB REF 16:14 | DX: M86.171 Other acute osteomyelitis, right ankle and foot (principal); E11.621 Type 2 diabetes mellitus with foot ulcer; L97.514 Non-pressure chronic ulcer of other part of right foot with necrosis of bone | CPT/HCPCS: 88304 ==

== ENCOUNTER → 2018-07-06 | Outpatient (CLI) | payer MEDICARE | LOC: M PAIN 11:15 | DX: G57.92 Unspecified mononeuropathy of left lower limb (principal); G57.91 Unspecified mononeuropathy of right lower limb; E11.9 Type 2 diabetes mellitus without complications; G47.30 Sleep apnea, unspecified; E78.5 Hyperlipidemia, unspecified; G25.81 Restless legs syndrome; I10 Essential (primary) hypertension; E03.9 Hypothyroidism, unspecified; I25.2 Old myocardial infarction; Z79.4 Long term (current) use of insulin; Z79.891 Long term (current) use of opiate analgesic; Z79.899 Other long term (current) drug therapy; Z88.8 Allergy status to other drugs, medicaments and biological substances; Z99.2 Dependence on renal dialysis; Z90.710 Acquired absence of both cervix and uterus; Z95.5 Presence of coronary angioplasty implant and graft | CPT/HCPCS: 88304; G0463 ==

== ENCOUNTER → 2018-07-11 | Outpatient (CLI) | payer MEDICARE | LOC: M RAD 07:09 | DX: E87.70 Fluid overload, unspecified (principal); R18.8 Other ascites | CPT/HCPCS: 76705 ==

== ENCOUNTER → 2018-07-14 | Outpatient (REF) | payer MEDICARE | LOC: M LAB REF 12:24 | DX: E11.621 Type 2 diabetes mellitus with foot ulcer (principal) | CPT/HCPCS: 88305 ==

== ENCOUNTER 2018-07-22 17:28 | Emergency (ER) | payer MEDICARE ==
[2018-07-22] MEDS: MORPHINE 4 MG/ML 1ML VIAL/SYRINGE (J2270) IV (18:44)
[2018-07-22 18:50] LABS: BASO % 0.6 % (0.0-1.0); EOS # 0.1 10^3/uL (0.0-0.50); HEMATOCRIT 32.3 % (36.0-47.0); HEMOGLOBIN 9.9 g/dl (12.0-15.5); IMMATURE GRANULOCYTE % 1.5 % (0-3.0); LYMPH # 0.7 10^3/uL (1.5-4.5); LYMPH % 9.9 % (24.0-44.0); MEAN CORPUSCULAR HEMOGLOBIN 31.9 pg (27.0-33.0); MEAN CORPUSCULAR HGB CONC 30.7 g/dl (32.0-36.5); MEAN CORPUSCULAR VOLUME 104.2 fl (80.0-96.0); MONO # 0.8 10^3/uL (0.0-0.8); MONO % 11.9 % (0.0-5.0); NEUTROPHILS # 5.1 10^3/uL (1.8-7.7); NEUTROPHILS % 74.1 % (36.0-66.0); PLATELET COUNT, AUTOMATED 141 10^3/uL (150-450); RED CELL DISTRIBUTION WIDTH 17.3 % (11.5-14.5); WHITE BLOOD COUNT 6.9 10^3/uL (4.0-10.0)
[2018-07-22 19:09] LABS: ERYTHROCYTE SEDIMENTATION RATE 49 mm/hr (0-30)
[2018-07-22 19:12] LABS: LACTIC ACID SEPSIS PROTOCOL 1.6 MMOL/L (0.4-2.0)
[2018-07-22 19:14] LABS: ANION GAP 8 MEQ/L (8-16); BLOOD UREA NITROGEN 42 MG/DL (7-18); CALCIUM LEVEL 7.5 MG/DL (8.8-10.2); CARBON DIOXIDE LEVEL 28 MEQ/L (21-32); CHLORIDE LEVEL 99 MEQ/L (98-107); CREATININE FOR GFR 4.16 MG/DL (0.55-1.30); GLOMERULAR FILTRATION RATE 11.3 (>45); POTASSIUM SERUM 4.3 MEQ/L (3.5-5.1); SODIUM LEVEL 135 MEQ/L (136-145)
[2018-07-22 19:19] LABS: GLUCOSE, FASTING 413 MG/DL (70-100)
[2018-07-22] MEDS ORDERED: NAFCILLIN SOD IV (20:00)
[2018-07-22] MEDS ORDERED: FLUID PLACE HOLDER IV (20:00)
[2018-07-22] MEDS: HumuLIN R (REGULAR) INSULIN (NovoLIN R) **100U/ML** PER UNIT IV (20:05)
[2018-07-22] MEDS: PIPERACILLIN/TAZOBACTAM SOD 2.25 GM in D5W MINI-BAG PLUS 50 ML IV (20:05)
[2018-07-22] MEDS: NAFCILLIN SOD 2 GM in D5W MINI-BAG PLUS 50 ML IV (20:57)
[2018-07-22] MEDS: NORCO 5/325MG TABLET (BULK FOR ED) PO (21:33)
== END 2018-07-22 21:34 | disposition home or self-care (01) ==
LOC: M ED 17:28
DX: S32.15XA Type 2 fracture of sacrum, initial encounter for closed fracture (principal); W01.198A Fall on same level from slipping, tripping and stumbling with subsequent striking against other object, initial encounter; Y92.091 Bathroom in other non-institutional residence as the place of occurrence of the external cause; T81.4XXA Infection following a procedure, initial encounter; Y83.5 Amputation of limb(s) as the cause of abnormal reaction of the patient, or of later complication, without mention of misadventure at the time of the procedure; Z89.421 Acquired absence of other right toe(s); E11.65 Type 2 diabetes mellitus with hyperglycemia; E11.40 Type 2 diabetes mellitus with diabetic neuropathy, unspecified; I50.9 Heart failure, unspecified; I11.0 Hypertensive heart disease with heart failure; E78.5 Hyperlipidemia, unspecified; M54.9 Dorsalgia, unspecified; I25.2 Old myocardial infarction; Z95.5 Presence of coronary angioplasty implant and graft; Z88.1 Allergy status to other antibiotic agents; Z79.899 Other long term (current) drug therapy; Z79.02 Long term (current) use of antithrombotics/antiplatelets; Z79.4 Long term (current) use of insulin
CPT/HCPCS: J2270

== ENCOUNTER → 2018-07-27 | Outpatient (CLI) | payer MEDICARE | LOC: M PAIN 08:45 | DX: M79.662 Pain in left lower leg (principal); S32.10XS Unspecified fracture of sacrum, sequela; G57.92 Unspecified mononeuropathy of left lower limb; E11.40 Type 2 diabetes mellitus with diabetic neuropathy, unspecified; G47.33 Obstructive sleep apnea (adult) (pediatric); E78.5 Hyperlipidemia, unspecified; G25.81 Restless legs syndrome; K21.9 Gastro-esophageal reflux disease without esophagitis; F32.9 Major depressive disorder, single episode, unspecified; E03.9 Hypothyroidism, unspecified; I12.0 Hypertensive chronic kidney disease with stage 5 chronic kidney disease or end stage renal disease; N18.6 End stage renal disease; Z79.2 Long term (current) use of antibiotics; Z79.891 Long term (current) use of opiate analgesic; Z79.899 Other long term (current) drug therapy; Z99.2 Dependence on renal dialysis; Z88.8 Allergy status to other drugs, medicaments and biological substances | CPT/HCPCS: G0463 ==

== ENCOUNTER 2018-07-28 16:25 | Emergency (ER) | payer MEDICARE ==
[2018-07-28] MEDS ORDERED: MORPHINE 4 MG/ML 1ML VIAL/SYRINGE (J2270) As Ordered (17:32)
[2018-07-28] MEDS: MORPHINE 10 MG/ML 1ML VIAL (J2270) IM (17:35)
[2018-07-28] MEDS: diphenhydrAMINE 50 MG CAP PO (18:16)
== END 2018-07-28 18:40 | disposition home or self-care (01) ==
LOC: M ED 16:25
DX: S32.2XXD Fracture of coccyx, subsequent encounter for fracture with routine healing (principal); W19.XXXD Unspecified fall, subsequent encounter; G89.29 Other chronic pain; I25.10 Atherosclerotic heart disease of native coronary artery without angina pectoris; I50.9 Heart failure, unspecified; N18.6 End stage renal disease; I13.2 Hypertensive heart and chronic kidney disease with heart failure and with stage 5 chronic kidney disease, or end stage renal disease; I25.2 Old myocardial infarction; Z95.5 Presence of coronary angioplasty implant and graft; Z99.2 Dependence on renal dialysis; Z88.8 Allergy status to other drugs, medicaments and biological substances; Z88.1 Allergy status to other antibiotic agents; Z79.890 Hormone replacement therapy; Z79.899 Other long term (current) drug therapy; Z79.01 Long term (current) use of anticoagulants; Z79.4 Long term (current) use of insulin
CPT/HCPCS: J2270

== ENCOUNTER → 2018-08-01 | Outpatient (CLI) | payer MEDICARE | LOC: M PAIN 08:30 | DX: M79.662 Pain in left lower leg (principal); S32.10XS Unspecified fracture of sacrum, sequela; G57.92 Unspecified mononeuropathy of left lower limb; L97.514 Non-pressure chronic ulcer of other part of right foot with necrosis of bone; T40.2X5A Adverse effect of other opioids, initial encounter; X58.XXXA Exposure to other specified factors, initial encounter; Y92.9 Unspecified place or not applicable; K59.03 Drug induced constipation; I12.9 Hypertensive chronic kidney disease with stage 1 through stage 4 chronic kidney disease, or unspecified chronic kidney disease; E11.40 Type 2 diabetes mellitus with diabetic neuropathy, unspecified; E11.22 Type 2 diabetes mellitus with diabetic chronic kidney disease; E11.621 Type 2 diabetes mellitus with foot ulcer; N18.3 Chronic kidney disease, stage 3 (moderate); G47.33 Obstructive sleep apnea (adult) (pediatric); E78.5 Hyperlipidemia, unspecified; G25.81 Restless legs syndrome; K21.9 Gastro-esophageal reflux disease without esophagitis; F32.9 Major depressive disorder, single episode, unspecified; E03.9 Hypothyroidism, unspecified; Z79.01 Long term (current) use of anticoagulants; Z79.4 Long term (current) use of insulin; Z79.891 Long term (current) use of opiate analgesic; Z79.899 Other long term (current) drug therapy; Z88.8 Allergy status to other drugs, medicaments and biological substances; Z99.2 Dependence on renal dialysis | CPT/HCPCS: G0463 ==

== ENCOUNTER → 2018-08-17 | Outpatient (REF) | payer MEDICARE | LOC: M LAB REF 19:10 | DX: S98.131D Complete traumatic amputation of one right lesser toe, subsequent encounter (principal); E11.621 Type 2 diabetes mellitus with foot ulcer (principal); L97.514 Non-pressure chronic ulcer of other part of right foot with necrosis of bone | CPT/HCPCS: 88304 ==

== ENCOUNTER → 2018-08-22 | Outpatient (CLI) | payer MEDICARE | LOC: M RAD 10:37 | DX: N18.6 End stage renal disease (principal); R39.11 Hesitancy of micturition ==

== ENCOUNTER 2018-08-24 09:48 | Inpatient (IN) | payer MEDICARE ==
[2018-08-24 10:45] LABS: BASO % 0.1 % (0.0-1.0); EOS % 0.1 % (0.0-3.0); HEMATOCRIT 33.2 % (36.0-47.0); HEMOGLOBIN 9.9 g/dl (12.0-15.5); IMMATURE GRANULOCYTE % 0.8 % (0-3.0); LYMPH # 0.6 10^3/uL (1.5-4.5); LYMPH % 3.1 % (24.0-44.0); MEAN CORPUSCULAR HEMOGLOBIN 29.6 pg (27.0-33.0); MEAN CORPUSCULAR HGB CONC 29.8 g/dl (32.0-36.5); MEAN CORPUSCULAR VOLUME 99.4 fl (80.0-96.0); MONO # 1.6 10^3/uL (0.0-0.8); MONO % 8.5 % (0.0-5.0); NEUTROPHILS % 87.4 % (36.0-66.0); PLATELET COUNT, AUTOMATED 144 10^3/uL (150-450); RED BLOOD COUNT 3.34 10^6/uL (4.00-5.40); WHITE BLOOD COUNT 18.3 10^3/uL (4.0-10.0)
[2018-08-24 11:07] LABS: AMMONIA 25 uMOL/L (<32)
[2018-08-24 11:21] LABS: ACETAMINOPHEN LEVEL 2.8 UG/ML (10.0-30.0); ALBUMIN 2.4 GM/DL (3.2-5.2); ALBUMIN/GLOBULIN RATIO 0.65 (1.00-1.93); ALKALINE PHOSPHATASE 551 U/L (45-117); ALT/SGPT 78 U/L (12-78); ANION GAP 9 MEQ/L (8-16); AST/SGOT 105 U/L (7-37); BILIRUBIN,DIRECT 0.5 MG/DL (0.0-0.2); BILIRUBIN,TOTAL 0.9 MG/DL (0.2-1.0); BLOOD UREA NITROGEN 26 MG/DL (7-18); CALCIUM LEVEL 7.3 MG/DL (8.8-10.2); CARBON DIOXIDE LEVEL 30 MEQ/L (21-32); CHLORIDE LEVEL 99 MEQ/L (98-107); CPK CREATINE PHOSPHOKINASE 47 U/L (26-192); CREATININE FOR GFR 3.63 MG/DL (0.55-1.30); ETHYL ALCOHOL (ETHANOL) 0.003 % (0.000-0.010); GLOMERULAR FILTRATION RATE 13.2 (>45); GLUCOSE, FASTING 276 MG/DL (70-100); MB/CK RELATIVE INDEX 4.04 (< OR =4); POTASSIUM SERUM 4.3 MEQ/L (3.5-5.1); SALICYLATE LEVEL < 1.7 MG/DL (5.0-30.0); SODIUM LEVEL 138 MEQ/L (136-145); TOTAL PROTEIN 6.1 GM/DL (6.4-8.2); TROPONIN I < 0.02 NG/ML (< 0.10)
[2018-08-24] MEDS ORDERED: PIPERACILLIN/TAZOBACTAM SOD 3.375 GM in D5W MINI-BAG PLUS 50 ML IV (13:15)
[2018-08-24] MEDS: PIPERACILLIN/TAZOBACTAM SOD 2.25 GM in D5W MINI-BAG PLUS 50 ML IV (13:30)
[2018-08-24 13:41] LABS: ABG BASE EXCESS 4.1 (-2.0-2.0); ABG O2 SATURATION 85.3 % (95.0-99.0); ABG PARTIAL PRESSURE CO2 52.3 mmHg (35.0-45.0); ABG PARTIAL PRESSURE O2 51.4 mmHg (75.0-100.0); ABG STANDARD HCO3 27.9 MEQ/L (22.0-26.0); ABG TOTAL CO2 31.6 MEQ/L (23.0-31.0); ABG pH (ARTERIAL) 7.377 UNITS (7.350-7.450)
[2018-08-24 14:03] LABS: LACTIC ACID SEPSIS PROTOCOL 1.6 MMOL/L (0.4-2.0)
[2018-08-24] MEDS ORDERED: GLUCAGON FOR INJ 1 MG VIAL (J1610) SC (15:30)
[2018-08-24] MEDS ORDERED: GLUCOSE 4 GM CHEW TABLET PO (15:30)
[2018-08-24] MEDS ORDERED: DEXTROSE 50% 50 ML SYRINGE IV (15:30)
[2018-08-24 16:15] LABS: ERYTHROCYTE SEDIMENTATION RATE 57 mm/hr (0-30)
[2018-08-24 16:28] LABS: CPK CREATINE PHOSPHOKINASE 36 U/L (26-192); MB/CK RELATIVE INDEX 3.61 (< OR =4); TROPONIN I 0.02 NG/ML (< 0.10)
[2018-08-24] MEDS ORDERED: SENNA 8.6 MG TAB (SENOKOT) PO (17:15)
[2018-08-24] MEDS: LACTOBACILLUS ACIDOPHILUS CAP (BACID) PO ×2 (17:18→21:39)
[2018-08-24] MEDS: LIDOCAINE 5% (LIDODERM) PATCH TD (17:18)
[2018-08-24] MEDS: **hydrALAZINE** 50 MG TAB PO ×2 (17:19→21:50)
[2018-08-24] MEDS: HumaLOG INSULIN (NovoLOG) PER UNIT SC ×2 (17:30→21:51)
[2018-08-24] MEDS: CALCIUM ACETATE 667 MG GELCAP PO (18:00)
[2018-08-24] MEDS: **NOTE PATIENT COMMENT** MISC XX (21:00)
[2018-08-24] MEDS ORDERED: **NOTE PATIENT COMMENT** MISC XX (21:00)
[2018-08-24] MEDS: HEPARIN SOD (PORCINE) 5000 UNITS/ML VIAL SC (21:37)
[2018-08-24] MEDS: SIMVASTATIN 20 MG TAB PO (21:38)
[2018-08-24] MEDS: PERCOCET 5MG/325MG TAB PO (21:38)
[2018-08-24] MEDS: METOPROLOL SUCC (TopROL XL) 50MG **XL** TAB PO (21:39)
[2018-08-24] MEDS: GABAPENTIN 300 MG CAP PO (21:39)
[2018-08-24] MEDS: SENOKOT S TAB PO (21:40)
[2018-08-24] MEDS: LEVEMIR (INSULIN DETEMIR) 1 UNITS/0.01ML SC (21:42)
[2018-08-24 21:49] LABS: BEDSIDE GLUCOSE 369 MG/DL (80-115)
[2018-08-24] MEDS: CALCIUM CARBONATE 500 MG CHEW U/D PO (21:50)
[2018-08-24] MEDS: TORSEMIDE 100 MG TAB PO (23:01)
[2018-08-24] MEDS: rOPINIRole 2MG TAB PO (23:01)
[2018-08-24 23:27] LABS: CPK CREATINE PHOSPHOKINASE 40 U/L (26-192); MB/CK RELATIVE INDEX 4.75 (< OR =4); TROPONIN I < 0.02 NG/ML (< 0.10)
[2018-08-25] MEDS: CEFTAROLINE FOSAMIL 200 MG in D5W 50 ML IV ×2 (00:21→12:00)
[2018-08-25 02:33] LABS: ABG HCO3 30.2 MEQ/L (22.0-26.0); ABG O2 SATURATION 99.5 % (95.0-99.0); ABG PARTIAL PRESSURE CO2 47.8 mmHg (35.0-45.0); ABG TOTAL CO2 31.7 MEQ/L (23.0-31.0); ABG pH (ARTERIAL) 7.419 UNITS (7.350-7.450)
[2018-08-25] MEDS: LEVOTHYROXINE 100MCG TABLET (0.1MG) PO (05:17)
[2018-08-25 05:47] LABS: BASO % 0.2 % (0.0-1.0); EOS # 0.1 10^3/uL (0.0-0.50); EOS % 0.8 % (0.0-3.0); HEMATOCRIT 31.4 % (36.0-47.0); HEMOGLOBIN 9.2 g/dl (12.0-15.5); IMMATURE GRANULOCYTE % 0.8 % (0-3.0); LYMPH % 6.9 % (24.0-44.0); MEAN CORPUSCULAR HEMOGLOBIN 29.4 pg (27.0-33.0); MEAN CORPUSCULAR HGB CONC 29.3 g/dl (32.0-36.5); MEAN CORPUSCULAR VOLUME 100.3 fl (80.0-96.0); MONO # 1.1 10^3/uL (0.0-0.8); MONO % 7.7 % (0.0-5.0); NEUTROPHILS # 11.8 10^3/uL (1.8-7.7); NEUTROPHILS % 83.6 % (36.0-66.0); PLATELET COUNT, AUTOMATED 140 10^3/uL (150-450); RED BLOOD COUNT 3.13 10^6/uL (4.00-5.40); RED CELL DISTRIBUTION WIDTH 17.2 % (11.5-14.5); WHITE BLOOD COUNT 14.1 10^3/uL (4.0-10.0)
[2018-08-25 06:37] LABS: ALBUMIN 2.1 GM/DL (3.2-5.2); ANION GAP 8 MEQ/L (8-16); BLOOD UREA NITROGEN 36 MG/DL (7-18); CALCIUM LEVEL 7.6 MG/DL (8.8-10.2); CARBON DIOXIDE LEVEL 27 MEQ/L (21-32); CHLORIDE LEVEL 101 MEQ/L (98-107); CPK CREATINE PHOSPHOKINASE 48 U/L (26-192); CREATININE FOR GFR 4.34 MG/DL (0.55-1.30); GLOMERULAR FILTRATION RATE 10.8 (>45); GLUCOSE, FASTING 195 MG/DL (70-100); MAGNESIUM LEVEL 2.2 MG/DL (1.8-2.4); MB/CK RELATIVE INDEX 3.96 (< OR =4); POTASSIUM SERUM 4.5 MEQ/L (3.5-5.1); SODIUM LEVEL 136 MEQ/L (136-145); TROPONIN I < 0.02 NG/ML (< 0.10)
[2018-08-25] MEDS: CALCIUM CARBONATE 500 MG CHEW U/D PO ×3 (08:00→17:08)
[2018-08-25] MEDS: CALCIUM ACETATE 667 MG GELCAP PO ×3 (08:00→17:07)
[2018-08-25] MEDS: METOPROLOL SUCC (TopROL XL) 50MG **XL** TAB PO ×2 (08:49→20:51)
[2018-08-25] MEDS: LIDOCAINE 5% (LIDODERM) PATCH TD (08:49)
[2018-08-25] MEDS: HumaLOG INSULIN (NovoLOG) PER UNIT SC ×4 (08:49→20:51)
[2018-08-25] MEDS: PANTOPRAZOLE 40MG TAB (PROTONIX) PO (08:50)
[2018-08-25] MEDS: **hydrALAZINE** 50 MG TAB PO ×3 (08:50→20:50)
[2018-08-25] MEDS: HEPARIN SOD (PORCINE) 5000 UNITS/ML VIAL SC ×2 (09:00→20:50)
[2018-08-25] MEDS: rOPINIRole 2MG TAB PO ×2 (09:00→20:50)
[2018-08-25] MEDS: LEVEMIR (INSULIN DETEMIR) 1 UNITS/0.01ML SC ×2 (09:00→21:04)
[2018-08-25] MEDS: LACTOBACILLUS ACIDOPHILUS CAP (BACID) PO ×3 (09:00→20:50)
[2018-08-25] MEDS: TORSEMIDE 100 MG TAB PO ×2 (09:00→17:07)
[2018-08-25] MEDS: SENOKOT S TAB PO ×2 (09:00→20:50)
[2018-08-25] MEDS: LIDOCAINE 1% SDV 5 ML VIAL SQ (10:00)
[2018-08-25] MEDS: HEPARIN 1,000 UNITS/ML 10ML VIAL (FOR RADIOLOGY& DIALYSIS ONLY) IV (10:00)
[2018-08-25] MEDS: ONDANSETRON 4MG/2ML VIAL (J2405) IV (10:42)
[2018-08-25] MEDS ORDERED: PROPOFOL 200 MG/20 ML VIAL As Ordered ×2 (13:20→14:37)
[2018-08-25 13:38] LABS: BEDSIDE GLUCOSE 114 MG/DL (80-115)
[2018-08-25] MEDS: VANCOMYCIN 1000 MG/20 ML VIAL (J3370) As Ordered (13:45)
[2018-08-25] MEDS ORDERED: MIDAZOLAM INJ 2 MG/2 ML VIAL (J2250) As Ordered (13:55)
[2018-08-25] MEDS ORDERED: fentaNYL 100 MCG/2 ML INJECTION (J3010) As Ordered (13:55)
[2018-08-25] MEDS: ROPIvacaine 0.5% 30 ML INJECTION (J2795 PER 1MG) As Ordered (14:00)
[2018-08-25] MEDS: TOBRAMYCIN SULF 1.2 GM VIAL As Ordered (14:33)
[2018-08-25 16:57] LABS: BEDSIDE GLUCOSE 100 MG/DL (80-115)
[2018-08-25] MEDS: DULoxetine 30 MG CAP (CYMBALTA) PO (17:12)
[2018-08-25] MEDS: CLOPIDOGREL 75 MG TAB PO (17:12)
[2018-08-25 20:31] LABS: BEDSIDE GLUCOSE 224 MG/DL (80-115)
[2018-08-25] MEDS: SIMVASTATIN 20 MG TAB PO (20:50)
[2018-08-25] MEDS: GABAPENTIN 300 MG CAP PO (20:50)
[2018-08-25] MEDS: **NOTE PATIENT COMMENT** MISC XX (20:51)
[2018-08-25] MEDS ORDERED: DARBEPOETIN 100 MCG/0.5 ML *DIALYSIS* SYRINGE (J0882) IV (22:30)
[2018-08-26] MEDS ORDERED: SLF 3 ML SYR IV (00:15)
[2018-08-26] MEDS: CEFTAROLINE FOSAMIL 200 MG in D5W 50 ML IV ×3 (00:18→23:47)
[2018-08-26] MEDS: PERCOCET 5MG/325MG TAB PO ×3 (00:18→17:07)
[2018-08-26 05:06] LABS: BASO % 0.2 % (0.0-1.0); EOS # 0.1 10^3/uL (0.0-0.50); HEMATOCRIT 32.3 % (36.0-47.0); HEMOGLOBIN 9.4 g/dl (12.0-15.5); IMMATURE GRANULOCYTE % 1.2 % (0-3.0); LYMPH # 0.9 10^3/uL (1.5-4.5); LYMPH % 6.9 % (24.0-44.0); MEAN CORPUSCULAR HEMOGLOBIN 28.9 pg (27.0-33.0); MEAN CORPUSCULAR HGB CONC 29.1 g/dl (32.0-36.5); MEAN CORPUSCULAR VOLUME 99.4 fl (80.0-96.0); MONO % 7.4 % (0.0-5.0); NEUTROPHILS # 11.1 10^3/uL (1.8-7.7); NEUTROPHILS % 83.3 % (36.0-66.0); PLATELET COUNT, AUTOMATED 167 10^3/uL (150-450); RED BLOOD COUNT 3.25 10^6/uL (4.00-5.40); RED CELL DISTRIBUTION WIDTH 17.4 % (11.5-14.5); WHITE BLOOD COUNT 13.3 10^3/uL (4.0-10.0)
[2018-08-26 05:41] LABS: ALBUMIN 2.1 GM/DL (3.2-5.2); ANION GAP 7 MEQ/L (8-16); BLOOD UREA NITROGEN 42 MG/DL (7-18); CALCIUM LEVEL 7.5 MG/DL (8.8-10.2); CARBON DIOXIDE LEVEL 28 MEQ/L (21-32); CHLORIDE LEVEL 98 MEQ/L (98-107); CREATININE FOR GFR 4.63 MG/DL (0.55-1.30); GLUCOSE, FASTING 258 MG/DL (70-100); MAGNESIUM LEVEL 2.2 MG/DL (1.8-2.4); PHOSPHORUS LEVEL 3.8 MG/DL (2.5-4.9); POTASSIUM SERUM 4.8 MEQ/L (3.5-5.1); SODIUM LEVEL 133 MEQ/L (136-145)
[2018-08-26] MEDS: SLF 3 ML SYR IV ×3 (05:41→23:48)
[2018-08-26] MEDS: LEVOTHYROXINE 100MCG TABLET (0.1MG) PO (06:05)
[2018-08-26] MEDS: HumaLOG INSULIN (NovoLOG) PER UNIT SC ×4 (07:30→21:38)
[2018-08-26] MEDS: CALCIUM CARBONATE 500 MG CHEW U/D PO ×3 (08:00→18:03)
[2018-08-26] MEDS: CALCIUM ACETATE 667 MG GELCAP PO ×3 (08:00→18:03)
[2018-08-26] MEDS: **hydrALAZINE** 50 MG TAB PO ×3 (09:00→21:27)
[2018-08-26] MEDS: HEPARIN SOD (PORCINE) 5000 UNITS/ML VIAL SC ×2 (09:00→21:25)
[2018-08-26] MEDS: SENOKOT S TAB PO ×3 (09:00→21:24)
[2018-08-26] MEDS: LACTOBACILLUS ACIDOPHILUS CAP (BACID) PO ×3 (09:00→21:00)
[2018-08-26] MEDS: rOPINIRole 2MG TAB PO ×2 (09:00→21:24)
[2018-08-26] MEDS: METOPROLOL SUCC (TopROL XL) 50MG **XL** TAB PO ×2 (09:00→21:27)
[2018-08-26] MEDS: TORSEMIDE 100 MG TAB PO ×2 (09:00→18:03)
[2018-08-26] MEDS: LIDOCAINE 5% (LIDODERM) PATCH TD (10:24)
[2018-08-26] MEDS: LEVEMIR (INSULIN DETEMIR) 1 UNITS/0.01ML SC ×2 (10:32→21:38)
[2018-08-26 10:34] LABS: BEDSIDE GLUCOSE 146 MG/DL (80-115)
[2018-08-26] MEDS: LIDOCAINE 1% SDV 5 ML VIAL SQ (10:45)
[2018-08-26] MEDS: HEPARIN 1,000 UNITS/ML 10ML VIAL (FOR RADIOLOGY& DIALYSIS ONLY) IV (10:45)
[2018-08-26] MEDS: LOSARTAN 50 MG TAB PO (11:30)
[2018-08-26 15:08] LABS: BEDSIDE GLUCOSE 230 MG/DL (80-115)
[2018-08-26] MEDS: CLOPIDOGREL 75 MG TAB PO (15:46)
[2018-08-26] MEDS: PANTOPRAZOLE 40MG TAB (PROTONIX) PO (15:46)
[2018-08-26] MEDS: DULoxetine 30 MG CAP (CYMBALTA) PO (15:46)
[2018-08-26 18:12] LABS: BEDSIDE GLUCOSE 324 MG/DL (80-115)
[2018-08-26] MEDS: **NOTE PATIENT COMMENT** MISC XX (21:00)
[2018-08-26] MEDS: SIMVASTATIN 20 MG TAB PO (21:25)
[2018-08-26] MEDS: GABAPENTIN 300 MG CAP PO (21:25)
[2018-08-26 21:34] LABS: BEDSIDE GLUCOSE 277 MG/DL (80-115)
[2018-08-27] MEDS: LEVOTHYROXINE 100MCG TABLET (0.1MG) PO (05:15)
[2018-08-27] MEDS: SLF 3 ML SYR IV ×3 (05:15→22:00)
[2018-08-27 05:27] LABS: BASO # 0.1 10^3/uL (0.0-0.2); BASO % 0.4 % (0.0-1.0); EOS # 0.2 10^3/uL (0.0-0.50); EOS % 1.3 % (0.0-3.0); HEMATOCRIT 36.1 % (36.0-47.0); HEMOGLOBIN 10.5 g/dl (12.0-15.5); IMMATURE GRANULOCYTE % 1.8 % (0-3.0); LYMPH # 0.9 10^3/uL (1.5-4.5); LYMPH % 7.2 % (24.0-44.0); MEAN CORPUSCULAR HEMOGLOBIN 28.8 pg (27.0-33.0); MEAN CORPUSCULAR HGB CONC 29.1 g/dl (32.0-36.5); MEAN CORPUSCULAR VOLUME 98.9 fl (80.0-96.0); MONO % 7.9 % (0.0-5.0); NEUTROPHILS # 10.5 10^3/uL (1.8-7.7); NEUTROPHILS % 81.4 % (36.0-66.0); PLATELET COUNT, AUTOMATED 178 10^3/uL (150-450); RED BLOOD COUNT 3.65 10^6/uL (4.00-5.40); RED CELL DISTRIBUTION WIDTH 17.3 % (11.5-14.5); WHITE BLOOD COUNT 12.9 10^3/uL (4.0-10.0)
[2018-08-27 05:55] LABS: ALBUMIN 2.3 GM/DL (3.2-5.2); ANION GAP 8 MEQ/L (8-16); BLOOD UREA NITROGEN 28 MG/DL (7-18); CALCIUM LEVEL 8.1 MG/DL (8.8-10.2); CARBON DIOXIDE LEVEL 29 MEQ/L (21-32); CHLORIDE LEVEL 100 MEQ/L (98-107); CREATININE FOR GFR 3.68 MG/DL (0.55-1.30); GLUCOSE, FASTING 103 MG/DL (70-100); MAGNESIUM LEVEL 2.2 MG/DL (1.8-2.4); PHOSPHORUS LEVEL 2.9 MG/DL (2.5-4.9); POTASSIUM SERUM 4.1 MEQ/L (3.5-5.1); SODIUM LEVEL 137 MEQ/L (136-145)
[2018-08-27] MEDS: HumaLOG INSULIN (NovoLOG) PER UNIT SC ×4 (07:30→21:00)
[2018-08-27 07:56] LABS: BEDSIDE GLUCOSE 97 MG/DL (80-115)
[2018-08-27] MEDS: HEPARIN SOD (PORCINE) 5000 UNITS/ML VIAL SC ×2 (08:58→21:13)
[2018-08-27] MEDS: LOSARTAN 50 MG TAB PO (09:00)
[2018-08-27] MEDS: METOPROLOL SUCC (TopROL XL) 50MG **XL** TAB PO ×2 (09:00→21:00)
[2018-08-27] MEDS: LEVEMIR (INSULIN DETEMIR) 1 UNITS/0.01ML SC ×2 (09:00→21:12)
[2018-08-27] MEDS: rOPINIRole 2MG TAB PO ×2 (09:05→21:13)
[2018-08-27] MEDS: PANTOPRAZOLE 40MG TAB (PROTONIX) PO (09:05)
[2018-08-27] MEDS: SENOKOT S TAB PO ×2 (09:06→21:14)
[2018-08-27] MEDS: CLOPIDOGREL 75 MG TAB PO (09:06)
[2018-08-27] MEDS: TORSEMIDE 100 MG TAB PO ×2 (09:06→16:15)
[2018-08-27] MEDS: CALCIUM CARBONATE 500 MG CHEW U/D PO ×3 (09:06→18:19)
[2018-08-27] MEDS: LACTOBACILLUS ACIDOPHILUS CAP (BACID) PO ×3 (09:06→21:13)
[2018-08-27] MEDS: DULoxetine 30 MG CAP (CYMBALTA) PO (09:06)
[2018-08-27] MEDS: CALCIUM ACETATE 667 MG GELCAP PO ×3 (09:07→18:19)
[2018-08-27] MEDS: **hydrALAZINE** 50 MG TAB PO ×3 (09:08→21:14)
[2018-08-27] MEDS: LIDOCAINE 5% (LIDODERM) PATCH TD (09:10)
[2018-08-27 11:57] LABS: BEDSIDE GLUCOSE 216 MG/DL (80-115)
[2018-08-27] MEDS: CEFTAROLINE FOSAMIL 200 MG in D5W 50 ML IV ×2 (12:26→23:59)
[2018-08-27] MEDS: ONDANSETRON 4MG/2ML VIAL (J2405) IV (12:27)
[2018-08-27 17:58] LABS: BEDSIDE GLUCOSE 160 MG/DL (80-115)
[2018-08-27] MEDS: PERCOCET 5MG/325MG TAB PO (19:21)
[2018-08-27] MEDS: **NOTE PATIENT COMMENT** MISC XX (21:00)
[2018-08-27] MEDS: GABAPENTIN 300 MG CAP PO (21:13)
[2018-08-27] MEDS: SIMVASTATIN 20 MG TAB PO (21:13)
[2018-08-27 21:25] LABS: BEDSIDE GLUCOSE 233 MG/DL (80-115)
[2018-08-28] MEDS: PERCOCET 5MG/325MG TAB PO ×3 (01:32→21:00)
[2018-08-28 05:35] LABS: BASO # 0.1 10^3/uL (0.0-0.2); BASO % 0.5 % (0.0-1.0); EOS # 0.2 10^3/uL (0.0-0.50); EOS % 1.7 % (0.0-3.0); HEMATOCRIT 32.7 % (36.0-47.0); HEMOGLOBIN 9.7 g/dl (12.0-15.5); LYMPH # 0.9 10^3/uL (1.5-4.5); LYMPH % 8.8 % (24.0-44.0); MEAN CORPUSCULAR HEMOGLOBIN 28.7 pg (27.0-33.0); MEAN CORPUSCULAR HGB CONC 29.7 g/dl (32.0-36.5); MEAN CORPUSCULAR VOLUME 96.7 fl (80.0-96.0); MONO # 0.9 10^3/uL (0.0-0.8); MONO % 9.3 % (0.0-5.0); NEUTROPHILS # 7.9 10^3/uL (1.8-7.7); NEUTROPHILS % 77.7 % (36.0-66.0); PLATELET COUNT, AUTOMATED 155 10^3/uL (150-450); RED BLOOD COUNT 3.38 10^6/uL (4.00-5.40); RED CELL DISTRIBUTION WIDTH 17.4 % (11.5-14.5); WHITE BLOOD COUNT 10.1 10^3/uL (4.0-10.0)
[2018-08-28] MEDS: SLF 3 ML SYR IV ×3 (06:00→21:52)
[2018-08-28 06:05] LABS: ALBUMIN 2.2 GM/DL (3.2-5.2); ANION GAP 8 MEQ/L (8-16); BLOOD UREA NITROGEN 39 MG/DL (7-18); CALCIUM LEVEL 8.2 MG/DL (8.8-10.2); CARBON DIOXIDE LEVEL 28 MEQ/L (21-32); CHLORIDE LEVEL 100 MEQ/L (98-107); CREATININE FOR GFR 4.53 MG/DL (0.55-1.30); GLOMERULAR FILTRATION RATE 10.2 (>45); GLUCOSE, FASTING 122 MG/DL (70-100); MAGNESIUM LEVEL 2.3 MG/DL (1.8-2.4); PHOSPHORUS LEVEL 3.5 MG/DL (2.5-4.9); POTASSIUM SERUM 4.4 MEQ/L (3.5-5.1); SODIUM LEVEL 136 MEQ/L (136-145)
[2018-08-28] MEDS: DULoxetine 30 MG CAP (CYMBALTA) PO (06:22)
[2018-08-28] MEDS: CLOPIDOGREL 75 MG TAB PO (06:22)
[2018-08-28] MEDS: LEVOTHYROXINE 100MCG TABLET (0.1MG) PO (06:22)
[2018-08-28] MEDS: CALCIUM ACETATE 667 MG GELCAP PO ×3 (06:22→18:00)
[2018-08-28] MEDS: CALCIUM CARBONATE 500 MG CHEW U/D PO ×3 (06:22→18:00)
[2018-08-28] MEDS: rOPINIRole 2MG TAB PO ×2 (06:22→21:51)
[2018-08-28] MEDS: PANTOPRAZOLE 40MG TAB (PROTONIX) PO (06:23)
[2018-08-28] MEDS: **hydrALAZINE** 50 MG TAB PO (06:23)
[2018-08-28] MEDS: LACTOBACILLUS ACIDOPHILUS CAP (BACID) PO ×3 (06:24→21:50)
[2018-08-28] MEDS: METOPROLOL SUCC (TopROL XL) 50MG **XL** TAB PO ×2 (06:25→21:51)
[2018-08-28] MEDS: SENOKOT S TAB PO ×2 (06:25→20:45)
[2018-08-28] MEDS: TORSEMIDE 100 MG TAB PO ×2 (06:31→17:00)
[2018-08-28] MEDS: HumaLOG INSULIN (NovoLOG) PER UNIT SC ×4 (07:30→21:00)
[2018-08-28] MEDS: ONDANSETRON 4MG/2ML VIAL (J2405) IV (07:33)
[2018-08-28] MEDS: LOSARTAN 50 MG TAB PO (09:00)
[2018-08-28] MEDS: LEVEMIR (INSULIN DETEMIR) 1 UNITS/0.01ML SC ×2 (09:10→21:52)
[2018-08-28] MEDS: LIDOCAINE 5% (LIDODERM) PATCH TD (09:11)
[2018-08-28 11:50] LABS: BEDSIDE GLUCOSE 121 MG/DL (80-115)
[2018-08-28 12:11] LABS: HEMATOCRIT 34.2 % (36.0-47.0)
[2018-08-28] MEDS: CEFTAROLINE FOSAMIL 200 MG in D5W 50 ML IV (12:50)
[2018-08-28] MEDS: **hydrALAZINE HCL** 25 MG TAB PO ×2 (14:00→21:51)
[2018-08-28] MEDS: HEPARIN 1,000 UNITS/ML 10ML VIAL (FOR RADIOLOGY& DIALYSIS ONLY) IV (16:00)
[2018-08-28 18:06] LABS: HEMATOCRIT 33.1 % (36.0-47.0); HEMOGLOBIN 9.8 g/dl (12.0-15.5)
[2018-08-28] MEDS: DAPTOmycin 500 MG in NS 50 ML IV (20:25)
[2018-08-28 20:53] LABS: BEDSIDE GLUCOSE 124 MG/DL (80-115)
[2018-08-28] MEDS: **NOTE PATIENT COMMENT** MISC XX (21:00)
[2018-08-28] MEDS: GABAPENTIN 300 MG CAP PO (21:50)
[2018-08-28] MEDS: SIMVASTATIN 20 MG TAB PO (21:51)
[2018-08-28 23:07] LABS: HEMATOCRIT 32.2 % (36.0-47.0); HEMOGLOBIN 9.5 g/dl (12.0-15.5)
[2018-08-29] MEDS: LEVOTHYROXINE 100MCG TABLET (0.1MG) PO (05:04)
[2018-08-29] MEDS: **hydrALAZINE HCL** 25 MG TAB PO ×3 (05:04→21:53)
[2018-08-29] MEDS: SLF 3 ML SYR IV ×3 (05:05→21:54)
[2018-08-29] MEDS: PERCOCET 5MG/325MG TAB PO ×2 (05:05→18:09)
[2018-08-29 05:36] LABS: BASO % 0.4 % (0.0-1.0); EOS # 0.1 10^3/uL (0.0-0.50); EOS % 1.5 % (0.0-3.0); HEMATOCRIT 32.8 % (36.0-47.0); HEMOGLOBIN 9.6 g/dl (12.0-15.5); IMMATURE GRANULOCYTE % 3.9 % (0-3.0); LYMPH # 0.8 10^3/uL (1.5-4.5); LYMPH % 8.4 % (24.0-44.0); MEAN CORPUSCULAR HEMOGLOBIN 28.5 pg (27.0-33.0); MEAN CORPUSCULAR HGB CONC 29.3 g/dl (32.0-36.5); MEAN CORPUSCULAR VOLUME 97.3 fl (80.0-96.0); MONO # 0.8 10^3/uL (0.0-0.8); MONO % 8.5 % (0.0-5.0); NEUTROPHILS % 77.3 % (36.0-66.0); PLATELET COUNT, AUTOMATED 147 10^3/uL (150-450); RED BLOOD COUNT 3.37 10^6/uL (4.00-5.40); RED CELL DISTRIBUTION WIDTH 17.4 % (11.5-14.5); WHITE BLOOD COUNT 9.1 10^3/uL (4.0-10.0)
[2018-08-29 06:03] LABS: ALBUMIN 2.1 GM/DL (3.2-5.2); ANION GAP 8 MEQ/L (8-16); BLOOD UREA NITROGEN 25 MG/DL (7-18); CALCIUM LEVEL 7.9 MG/DL (8.8-10.2); CARBON DIOXIDE LEVEL 28 MEQ/L (21-32); CHLORIDE LEVEL 102 MEQ/L (98-107); CREATININE FOR GFR 3.44 MG/DL (0.55-1.30); GLOMERULAR FILTRATION RATE 14.1 (>45); GLUCOSE, FASTING 163 MG/DL (70-100); MAGNESIUM LEVEL 2.1 MG/DL (1.8-2.4); PHOSPHORUS LEVEL 2.5 MG/DL (2.5-4.9); POTASSIUM SERUM 4.5 MEQ/L (3.5-5.1); SODIUM LEVEL 138 MEQ/L (136-145)
[2018-08-29] MEDS: CALCIUM ACETATE 667 MG GELCAP PO ×3 (08:41→18:09)
[2018-08-29] MEDS: CALCIUM CARBONATE 500 MG CHEW U/D PO ×3 (08:42→18:08)
[2018-08-29] MEDS: rOPINIRole 2MG TAB PO ×2 (08:42→21:53)
[2018-08-29] MEDS: DULoxetine 30 MG CAP (CYMBALTA) PO (08:42)
[2018-08-29] MEDS: TORSEMIDE 100 MG TAB PO (08:42)
[2018-08-29] MEDS: SENOKOT S TAB PO ×2 (08:43→21:00)
[2018-08-29] MEDS: PANTOPRAZOLE 40MG TAB (PROTONIX) PO (08:43)
[2018-08-29] MEDS: CLOPIDOGREL 75 MG TAB PO (08:43)
[2018-08-29] MEDS: METOPROLOL SUCC (TopROL XL) 50MG **XL** TAB PO ×3 (08:45→20:04)
[2018-08-29] MEDS: LIDOCAINE 5% (LIDODERM) PATCH TD (08:46)
[2018-08-29] MEDS: HumaLOG INSULIN (NovoLOG) PER UNIT SC ×4 (08:46→20:29)
[2018-08-29] MEDS: LEVEMIR (INSULIN DETEMIR) 1 UNITS/0.01ML SC ×2 (08:46→21:53)
[2018-08-29] MEDS: LACTOBACILLUS ACIDOPHILUS CAP (BACID) PO ×3 (08:51→21:53)
[2018-08-29] MEDS: LOSARTAN 50 MG TAB PO (08:52)
[2018-08-29] MEDS: MORPHINE 4 MG/ML 1ML VIAL/SYRINGE (J2270) IV (09:21)
[2018-08-29 11:43] LABS: BEDSIDE GLUCOSE 152 MG/DL (80-115)
[2018-08-29 11:55] LABS: HEMATOCRIT 32.3 % (36.0-47.0); HEMOGLOBIN 9.3 g/dl (12.0-15.5)
[2018-08-29] MEDS: HEPARIN 1,000 UNITS/ML 10ML VIAL (FOR RADIOLOGY& DIALYSIS ONLY) IV (13:00)
[2018-08-29 18:12] LABS: HEMATOCRIT 33.1 % (36.0-47.0); HEMOGLOBIN 9.6 g/dl (12.0-15.5)
[2018-08-29 18:16] LABS: BEDSIDE GLUCOSE 97 MG/DL (80-115)
[2018-08-29 20:30] LABS: BEDSIDE GLUCOSE 167 MG/DL (80-115)
[2018-08-29] MEDS: **NOTE PATIENT COMMENT** MISC XX (21:00)
[2018-08-29] MEDS: SIMVASTATIN 20 MG TAB PO (21:52)
[2018-08-29] MEDS: GABAPENTIN 300 MG CAP PO (21:53)
[2018-08-30] MEDS: PERCOCET 5MG/325MG TAB PO ×3 (01:43→18:21)
[2018-08-30] MEDS: CLOPIDOGREL 75 MG TAB PO ×2 (05:47→09:24)
[2018-08-30] MEDS: PANTOPRAZOLE 40MG TAB (PROTONIX) PO ×2 (05:47→09:24)
[2018-08-30] MEDS: DULoxetine 30 MG CAP (CYMBALTA) PO ×2 (05:47→09:24)
[2018-08-30] MEDS: LEVOTHYROXINE 100MCG TABLET (0.1MG) PO (05:48)
[2018-08-30] MEDS: **hydrALAZINE HCL** 25 MG TAB PO ×3 (05:48→22:47)
[2018-08-30] MEDS: LACTOBACILLUS ACIDOPHILUS CAP (BACID) PO ×3 (05:48→20:36)
[2018-08-30] MEDS: rOPINIRole 2MG TAB PO ×2 (05:48→20:34)
[2018-08-30] MEDS: SENOKOT S TAB PO ×2 (05:49→20:34)
[2018-08-30] MEDS: SLF 3 ML SYR IV ×3 (05:49→22:47)
[2018-08-30 06:01] LABS: BASO # 0.1 10^3/uL (0.0-0.2); BASO % 0.6 % (0.0-1.0); EOS # 0.2 10^3/uL (0.0-0.50); HEMATOCRIT 32.1 % (36.0-47.0); HEMOGLOBIN 9.3 g/dl (12.0-15.5); IMMATURE GRANULOCYTE % 2.7 % (0-3.0); LYMPH % 11.2 % (24.0-44.0); MEAN CORPUSCULAR HEMOGLOBIN 28.1 pg (27.0-33.0); MONO # 0.9 10^3/uL (0.0-0.8); MONO % 10.2 % (0.0-5.0); NEUTROPHILS # 6.6 10^3/uL (1.8-7.7); NEUTROPHILS % 73.3 % (36.0-66.0); PLATELET COUNT, AUTOMATED 139 10^3/uL (150-450); RED BLOOD COUNT 3.31 10^6/uL (4.00-5.40); RED CELL DISTRIBUTION WIDTH 17.4 % (11.5-14.5)
[2018-08-30 06:35] LABS: ALBUMIN 2.2 GM/DL (3.2-5.2); ANION GAP 5 MEQ/L (8-16); BLOOD UREA NITROGEN 35 MG/DL (7-18); CALCIUM LEVEL 7.9 MG/DL (8.8-10.2); CARBON DIOXIDE LEVEL 29 MEQ/L (21-32); CHLORIDE LEVEL 103 MEQ/L (98-107); CREATININE FOR GFR 4.61 MG/DL (0.55-1.30); GLUCOSE, FASTING 136 MG/DL (70-100); MAGNESIUM LEVEL 2.2 MG/DL (1.8-2.4); PHOSPHORUS LEVEL 3.1 MG/DL (2.5-4.9); POTASSIUM SERUM 4.5 MEQ/L (3.5-5.1); SODIUM LEVEL 137 MEQ/L (136-145)
[2018-08-30] MEDS: LIDOCAINE 5% (LIDODERM) PATCH TD (09:22)
[2018-08-30] MEDS: CALCIUM CARBONATE 500 MG CHEW U/D PO ×3 (09:22→16:50)
[2018-08-30] MEDS: HumaLOG INSULIN (NovoLOG) PER UNIT SC ×4 (09:22→20:41)
[2018-08-30] MEDS: LEVEMIR (INSULIN DETEMIR) 1 UNITS/0.01ML SC ×2 (09:22→20:41)
[2018-08-30] MEDS: CALCIUM ACETATE 667 MG GELCAP PO ×3 (09:23→16:51)
[2018-08-30] MEDS: METOPROLOL SUCC (TopROL XL) 50MG **XL** TAB PO ×2 (09:24→20:36)
[2018-08-30] MEDS: LOSARTAN 50 MG TAB PO (09:25)
[2018-08-30 11:21] LABS: BEDSIDE GLUCOSE 182 MG/DL (80-115)
[2018-08-30] MEDS: GABAPENTIN 100 MG CAP PO (11:24)
[2018-08-30] MEDS: HEPARIN 1,000 UNITS/ML 10ML VIAL (FOR RADIOLOGY& DIALYSIS ONLY) IV (16:07)
[2018-08-30 16:25] LABS: BEDSIDE GLUCOSE 134 MG/DL (80-115)
[2018-08-30] MEDS: DAPTOmycin 500 MG in NS 50 ML IV (16:51)
[2018-08-30] MEDS: SIMVASTATIN 20 MG TAB PO (20:34)
[2018-08-30] MEDS: GABAPENTIN 300 MG CAP PO (20:34)
[2018-08-30 20:40] LABS: BEDSIDE GLUCOSE 270 MG/DL (80-115)
[2018-08-30] MEDS: **NOTE PATIENT COMMENT** MISC XX (20:42)
[2018-08-30] MEDS: RAMELTEON 8 MG TAB (ROZEREM) PO (23:37)
[2018-08-31] MEDS: PERCOCET 5MG/325MG TAB PO ×3 (04:20→17:15)
[2018-08-31] MEDS: SLF 3 ML SYR IV ×3 (05:17→21:19)
[2018-08-31] MEDS: **hydrALAZINE HCL** 25 MG TAB PO ×2 (05:50→14:43)
[2018-08-31] MEDS: LEVOTHYROXINE 100MCG TABLET (0.1MG) PO (05:50)
[2018-08-31 06:01] LABS: BASO # 0.1 10^3/uL (0.0-0.2); EOS # 0.1 10^3/uL (0.0-0.50); EOS % 1.9 % (0.0-3.0); HEMATOCRIT 35.5 % (36.0-47.0); HEMOGLOBIN 9.8 g/dl (12.0-15.5); IMMATURE GRANULOCYTE % 3.8 % (0-3.0); LYMPH # 0.8 10^3/uL (1.5-4.5); LYMPH % 10.5 % (24.0-44.0); MEAN CORPUSCULAR HEMOGLOBIN 28.3 pg (27.0-33.0); MEAN CORPUSCULAR HGB CONC 27.6 g/dl (32.0-36.5); MEAN CORPUSCULAR VOLUME 102.6 fl (80.0-96.0); MONO # 0.7 10^3/uL (0.0-0.8); MONO % 9.4 % (0.0-5.0); NEUTROPHILS # 5.4 10^3/uL (1.8-7.7); NEUTROPHILS % 73.4 % (36.0-66.0); PLATELET COUNT, AUTOMATED 133 10^3/uL (150-450); RED BLOOD COUNT 3.46 10^6/uL (4.00-5.40); RED CELL DISTRIBUTION WIDTH 17.6 % (11.5-14.5); WHITE BLOOD COUNT 7.3 10^3/uL (4.0-10.0)
[2018-08-31 06:20] LABS: ALBUMIN 2.1 GM/DL (3.2-5.2); ANION GAP 9 MEQ/L (8-16); BLOOD UREA NITROGEN 27 MG/DL (7-18); CARBON DIOXIDE LEVEL 28 MEQ/L (21-32); CHLORIDE LEVEL 102 MEQ/L (98-107); CREATININE FOR GFR 3.81 MG/DL (0.55-1.30); GLOMERULAR FILTRATION RATE 12.5 (>45); GLUCOSE, FASTING 101 MG/DL (70-100); MAGNESIUM LEVEL 2.1 MG/DL (1.8-2.4); PHOSPHORUS LEVEL 2.5 MG/DL (2.5-4.9); POTASSIUM SERUM 4.1 MEQ/L (3.5-5.1); SODIUM LEVEL 139 MEQ/L (136-145)
[2018-08-31] MEDS: METOPROLOL SUCC (TopROL XL) 50MG **XL** TAB PO ×2 (08:24→21:18)
[2018-08-31] MEDS: LOSARTAN 50 MG TAB PO (08:24)
[2018-08-31] MEDS: HumaLOG INSULIN (NovoLOG) PER UNIT SC ×4 (08:38→21:00)
[2018-08-31] MEDS: LEVEMIR (INSULIN DETEMIR) 1 UNITS/0.01ML SC ×2 (08:39→21:19)
[2018-08-31] MEDS: rOPINIRole 2MG TAB PO ×2 (08:39→21:14)
[2018-08-31] MEDS: LACTOBACILLUS ACIDOPHILUS CAP (BACID) PO ×3 (08:39→21:14)
[2018-08-31] MEDS: CALCIUM CARBONATE 500 MG CHEW U/D PO ×3 (08:39→17:14)
[2018-08-31] MEDS: GABAPENTIN 100 MG CAP PO ×2 (08:40→13:42)
[2018-08-31] MEDS: CALCIUM ACETATE 667 MG GELCAP PO ×3 (08:40→17:15)
[2018-08-31] MEDS: LIDOCAINE 5% (LIDODERM) PATCH TD (08:41)
[2018-08-31] MEDS: SENOKOT S TAB PO ×2 (08:41→21:00)
[2018-08-31 12:23] LABS: BEDSIDE GLUCOSE 221 MG/DL (80-115)
[2018-08-31 17:00] LABS: BEDSIDE GLUCOSE 311 MG/DL (80-115)
[2018-08-31] MEDS: VANCOMYCIN HCL 1,000 MG, VIAL MATE ADAPTER 1 EACH in D5W 250 ML IV (17:15)
[2018-08-31] MEDS: ONDANSETRON 4MG/2ML VIAL (J2405) IV (17:55)
[2018-08-31] MEDS: MORPHINE 4 MG/ML 1ML VIAL/SYRINGE (J2270) IV (18:35)
[2018-08-31] MEDS: **hydrALAZINE** 10 MG TAB PO (21:00)
[2018-08-31] MEDS: **NOTE PATIENT COMMENT** MISC XX (21:00)
[2018-08-31 21:03] LABS: BEDSIDE GLUCOSE 209 MG/DL (80-115)
[2018-08-31] MEDS: VANCOMYCIN HCL 750 MG, VIAL MATE ADAPTER 1 EACH in D5W 250 ML IV (21:11)
[2018-08-31] MEDS: GABAPENTIN 300 MG CAP PO (21:14)
[2018-08-31] MEDS: RAMELTEON 8 MG TAB (ROZEREM) PO (21:15)
[2018-08-31] MEDS: SIMVASTATIN 20 MG TAB PO (21:18)
[2018-09-01] MEDS: rOPINIRole 2MG TAB PO ×2 (07:05→20:37)
[2018-09-01] MEDS: LACTOBACILLUS ACIDOPHILUS CAP (BACID) PO ×3 (07:05→20:38)
[2018-09-01] MEDS: CALCIUM CARBONATE 500 MG CHEW U/D PO ×3 (07:05→17:26)
[2018-09-01] MEDS: METOPROLOL SUCC (TopROL XL) 50MG **XL** TAB PO ×2 (07:07→20:40)
[2018-09-01] MEDS: LIDOCAINE 5% (LIDODERM) PATCH TD (07:08)
[2018-09-01] MEDS: DULoxetine 30 MG CAP (CYMBALTA) PO (07:09)
[2018-09-01] MEDS: **hydrALAZINE** 10 MG TAB PO (07:09)
[2018-09-01] MEDS: PANTOPRAZOLE 40MG TAB (PROTONIX) PO (07:09)
[2018-09-01] MEDS: GABAPENTIN 100 MG CAP PO ×2 (07:11→12:00)
[2018-09-01] MEDS: LOSARTAN 50 MG TAB PO (07:12)
[2018-09-01] MEDS: SENOKOT S TAB PO ×2 (07:14→20:42)
[2018-09-01] MEDS: CALCIUM ACETATE 667 MG GELCAP PO ×3 (07:14→17:26)
[2018-09-01] MEDS: SLF 3 ML SYR IV ×3 (07:15→20:42)
[2018-09-01 07:49] LABS: VANCOMYCIN RANDOM 21.6 UG/ML
[2018-09-01] MEDS: LEVOTHYROXINE 100MCG TABLET (0.1MG) PO (07:52)
[2018-09-01] MEDS: CLOPIDOGREL 75 MG TAB PO (07:52)
[2018-09-01 08:49] LABS: BEDSIDE GLUCOSE 224 MG/DL (80-115)
[2018-09-01] MEDS: LEVEMIR (INSULIN DETEMIR) 1 UNITS/0.01ML SC ×2 (09:00→20:41)
[2018-09-01] MEDS: HumaLOG INSULIN (NovoLOG) PER UNIT SC ×4 (09:00→20:41)
[2018-09-01 10:04] LABS: HEMATOCRIT 31.5 % (36.0-47.0); HEMOGLOBIN 9.1 g/dl (12.0-15.5); MEAN CORPUSCULAR HEMOGLOBIN 28.6 pg (27.0-33.0); MEAN CORPUSCULAR HGB CONC 28.9 g/dl (32.0-36.5); MEAN CORPUSCULAR VOLUME 99.1 fl (80.0-96.0); PLATELET COUNT, AUTOMATED 142 10^3/uL (150-450); RED BLOOD COUNT 3.18 10^6/uL (4.00-5.40); WHITE BLOOD COUNT 18.2 10^3/uL (4.0-10.0)
[2018-09-01 10:26] LABS: ALBUMIN 1.9 GM/DL (3.2-5.2); ALBUMIN/GLOBULIN RATIO 0.49 (1.00-1.93); ALKALINE PHOSPHATASE 465 U/L (45-117); ALT/SGPT 43 U/L (12-78); ANION GAP 10 MEQ/L (8-16); AST/SGOT 46 U/L (7-37); BILIRUBIN,TOTAL 0.4 MG/DL (0.2-1.0); BLOOD UREA NITROGEN 41 MG/DL (7-18); C REACTIVE PROTEIN QUANTITATIV 8.54 MG/DL (0.00-0.30); CALCIUM LEVEL 7.4 MG/DL (8.8-10.2); CARBON DIOXIDE LEVEL 28 MEQ/L (21-32); CHLORIDE LEVEL 101 MEQ/L (98-107); CREATININE FOR GFR 5.12 MG/DL (0.55-1.30); GLOMERULAR FILTRATION RATE 8.9 (>45); GLUCOSE, FASTING 201 MG/DL (70-100); POTASSIUM SERUM 4.4 MEQ/L (3.5-5.1); SODIUM LEVEL 139 MEQ/L (136-145); TOTAL PROTEIN 5.8 GM/DL (6.4-8.2)
[2018-09-01] MEDS: HEPARIN 1,000 UNITS/ML 10ML VIAL (FOR RADIOLOGY& DIALYSIS ONLY) IV (11:30)
[2018-09-01] MEDS: LIDOCAINE 1% SDV 5 ML VIAL SQ (11:30)
[2018-09-01 16:34] LABS: BEDSIDE GLUCOSE 243 MG/DL (80-115)
[2018-09-01] MEDS: PERCOCET 5MG/325MG TAB PO (17:27)
[2018-09-01] MEDS: VANCOMYCIN HCL 1,000 MG, VIAL MATE ADAPTER 1 EACH in D5W 250 ML IV (17:29)
[2018-09-01] MEDS ORDERED: VANCOMYCIN HCL 1,000 MG, VIAL MATE ADAPTER 1 EACH in D5W 250 ML IV (17:45)
[2018-09-01 17:54] LABS: URIC ACID 4.9 MG/DL (2.6-6.0)
[2018-09-01] MEDS: **VANCO AFTER HD** MISC XX (18:19)
[2018-09-01 20:11] LABS: BEDSIDE GLUCOSE 349 MG/DL (80-115)
[2018-09-01] MEDS: RAMELTEON 8 MG TAB (ROZEREM) PO (20:38)
[2018-09-01] MEDS: SIMVASTATIN 20 MG TAB PO (20:39)
[2018-09-01] MEDS: GABAPENTIN 300 MG CAP PO (20:40)
[2018-09-01] MEDS: **NOTE PATIENT COMMENT** MISC XX (20:41)
[2018-09-02] MEDS: SLF 3 ML SYR IV ×3 (05:29→21:57)
[2018-09-02] MEDS: LEVOTHYROXINE 100MCG TABLET (0.1MG) PO (05:30)
[2018-09-02 07:09] LABS: HEMATOCRIT 32.3 % (36.0-47.0); HEMOGLOBIN 9.3 g/dl (12.0-15.5); MEAN CORPUSCULAR HEMOGLOBIN 28.1 pg (27.0-33.0); MEAN CORPUSCULAR HGB CONC 28.8 g/dl (32.0-36.5); MEAN CORPUSCULAR VOLUME 97.6 fl (80.0-96.0); PLATELET COUNT, AUTOMATED 128 10^3/uL (150-450); RED BLOOD COUNT 3.31 10^6/uL (4.00-5.40); RED CELL DISTRIBUTION WIDTH 17.4 % (11.5-14.5); WHITE BLOOD COUNT 6.8 10^3/uL (4.0-10.0)
[2018-09-02 07:46] LABS: ALBUMIN 2.1 GM/DL (3.2-5.2); ALKALINE PHOSPHATASE 592 U/L (45-117); ALT/SGPT 64 U/L (12-78); ANION GAP 8 MEQ/L (8-16); AST/SGOT 86 U/L (7-37); BILIRUBIN,TOTAL 0.4 MG/DL (0.2-1.0); BLOOD UREA NITROGEN 27 MG/DL (7-18); C REACTIVE PROTEIN QUANTITATIV 7.85 MG/DL (0.00-0.30); CALCIUM LEVEL 7.5 MG/DL (8.8-10.2); CARBON DIOXIDE LEVEL 29 MEQ/L (21-32); CHLORIDE LEVEL 102 MEQ/L (98-107); GLOMERULAR FILTRATION RATE 12.9 (>45); GLUCOSE, FASTING 199 MG/DL (70-100); POTASSIUM SERUM 3.9 MEQ/L (3.5-5.1); SODIUM LEVEL 139 MEQ/L (136-145); TOTAL PROTEIN 6.3 GM/DL (6.4-8.2)
[2018-09-02 07:54] LABS: ERYTHROCYTE SEDIMENTATION RATE 54 mm/hr (0-30)
[2018-09-02] MEDS: HumaLOG INSULIN (NovoLOG) PER UNIT SC ×4 (08:06→20:17)
[2018-09-02] MEDS: rOPINIRole 2MG TAB PO ×2 (08:06→20:16)
[2018-09-02] MEDS: CALCIUM CARBONATE 500 MG CHEW U/D PO ×3 (08:07→17:26)
[2018-09-02] MEDS: LACTOBACILLUS ACIDOPHILUS CAP (BACID) PO ×3 (08:07→20:16)
[2018-09-02] MEDS: CLOPIDOGREL 75 MG TAB PO (08:08)
[2018-09-02] MEDS: SENOKOT S TAB PO ×2 (08:08→20:16)
[2018-09-02] MEDS: PANTOPRAZOLE 40MG TAB (PROTONIX) PO (08:08)
[2018-09-02] MEDS: GABAPENTIN 100 MG CAP PO ×2 (08:08→11:59)
[2018-09-02] MEDS: DULoxetine 30 MG CAP (CYMBALTA) PO (08:08)
[2018-09-02] MEDS: CALCIUM ACETATE 667 MG GELCAP PO ×3 (08:08→18:00)
[2018-09-02] MEDS: METOPROLOL SUCC (TopROL XL) 50MG **XL** TAB PO ×2 (08:11→20:17)
[2018-09-02] MEDS: LEVEMIR (INSULIN DETEMIR) 1 UNITS/0.01ML SC ×2 (08:12→20:17)
[2018-09-02] MEDS: LIDOCAINE 5% (LIDODERM) PATCH TD (08:12)
[2018-09-02] MEDS: LOSARTAN 50 MG TAB PO (08:12)
[2018-09-02] MEDS: HEPARIN 1,000 UNITS/ML 10ML VIAL (FOR RADIOLOGY& DIALYSIS ONLY) IV (10:00)
[2018-09-02] MEDS: LIDOCAINE 1% SDV 5 ML VIAL SQ (10:00)
[2018-09-02 11:43] LABS: BEDSIDE GLUCOSE 208 MG/DL (80-115)
[2018-09-02] MEDS: ONDANSETRON 4MG/2ML VIAL (J2405) IV (11:59)
[2018-09-02] MEDS ORDERED: VANCOMYCIN HCL 1,000 MG, VIAL MATE ADAPTER 1 EACH in D5W 250 ML IV (16:00)
[2018-09-02 17:17] LABS: BEDSIDE GLUCOSE 124 MG/DL (80-115)
[2018-09-02] MEDS: **VANCO AFTER HD** MISC XX (17:26)
[2018-09-02 20:04] LABS: BEDSIDE GLUCOSE 210 MG/DL (80-115)
[2018-09-02] MEDS: SIMVASTATIN 20 MG TAB PO (20:16)
[2018-09-02] MEDS: RAMELTEON 8 MG TAB (ROZEREM) PO (20:16)
[2018-09-02] MEDS: GABAPENTIN 300 MG CAP PO (20:16)
[2018-09-02] MEDS: **NOTE PATIENT COMMENT** MISC XX (21:00)
[2018-09-03] MEDS: SLF 3 ML SYR IV ×3 (05:20→20:47)
[2018-09-03] MEDS: LEVOTHYROXINE 100MCG TABLET (0.1MG) PO (05:20)
[2018-09-03 06:31] LABS: HEMATOCRIT 33.2 % (36.0-47.0); HEMOGLOBIN 9.7 g/dl (12.0-15.5); MEAN CORPUSCULAR HEMOGLOBIN 28.1 pg (27.0-33.0); MEAN CORPUSCULAR HGB CONC 29.2 g/dl (32.0-36.5); MEAN CORPUSCULAR VOLUME 96.2 fl (80.0-96.0); PLATELET COUNT, AUTOMATED 133 10^3/uL (150-450); RED BLOOD COUNT 3.45 10^6/uL (4.00-5.40); RED CELL DISTRIBUTION WIDTH 17.6 % (11.5-14.5); WHITE BLOOD COUNT 6.6 10^3/uL (4.0-10.0)
[2018-09-03 07:06] LABS: ALBUMIN 2.3 GM/DL (3.2-5.2); ALBUMIN/GLOBULIN RATIO 0.55 (1.00-1.93); ALKALINE PHOSPHATASE 568 U/L (45-117); ALT/SGPT 55 U/L (12-78); ANION GAP 9 MEQ/L (8-16); AST/SGOT 56 U/L (7-37); BILIRUBIN,TOTAL 0.4 MG/DL (0.2-1.0); BLOOD UREA NITROGEN 43 MG/DL (7-18); C REACTIVE PROTEIN QUANTITATIV 5.68 MG/DL (0.00-0.30); CARBON DIOXIDE LEVEL 28 MEQ/L (21-32); CHLORIDE LEVEL 102 MEQ/L (98-107); GLOMERULAR FILTRATION RATE 9.6 (>45); GLUCOSE, FASTING 192 MG/DL (70-100); POTASSIUM SERUM 4.1 MEQ/L (3.5-5.1); SODIUM LEVEL 139 MEQ/L (136-145); TOTAL PROTEIN 6.5 GM/DL (6.4-8.2)
[2018-09-03 07:22] LABS: ERYTHROCYTE SEDIMENTATION RATE 58 mm/hr (0-30)
[2018-09-03] MEDS: CALCIUM ACETATE 667 MG GELCAP PO ×3 (08:22→16:57)
[2018-09-03] MEDS: rOPINIRole 2MG TAB PO ×2 (08:22→20:45)
[2018-09-03] MEDS: LACTOBACILLUS ACIDOPHILUS CAP (BACID) PO ×3 (08:22→20:45)
[2018-09-03] MEDS: CALCIUM CARBONATE 500 MG CHEW U/D PO ×3 (08:22→16:57)
[2018-09-03] MEDS: GABAPENTIN 100 MG CAP PO ×2 (08:22→12:34)
[2018-09-03] MEDS: DULoxetine 30 MG CAP (CYMBALTA) PO (08:22)
[2018-09-03] MEDS: PANTOPRAZOLE 40MG TAB (PROTONIX) PO (08:22)
[2018-09-03] MEDS: SENOKOT S TAB PO ×2 (08:23→20:45)
[2018-09-03] MEDS: CLOPIDOGREL 75 MG TAB PO (08:23)
[2018-09-03] MEDS: LIDOCAINE 5% (LIDODERM) PATCH TD (08:23)
[2018-09-03] MEDS: LEVEMIR (INSULIN DETEMIR) 1 UNITS/0.01ML SC ×2 (08:26→20:44)
[2018-09-03] MEDS: HumaLOG INSULIN (NovoLOG) PER UNIT SC ×4 (08:26→20:46)
[2018-09-03] MEDS: LOSARTAN 50 MG TAB PO (08:27)
[2018-09-03] MEDS: METOPROLOL SUCC (TopROL XL) 50MG **XL** TAB PO ×2 (08:28→20:45)
[2018-09-03 12:07] LABS: BEDSIDE GLUCOSE 246 MG/DL (80-115)
[2018-09-03] MEDS: **VANCO AFTER HD** MISC XX (15:12)
[2018-09-03 16:39] LABS: BEDSIDE GLUCOSE 315 MG/DL (80-115)
[2018-09-03 20:07] LABS: BEDSIDE GLUCOSE 191 MG/DL (80-115)
[2018-09-03] MEDS: RAMELTEON 8 MG TAB (ROZEREM) PO (20:45)
[2018-09-03] MEDS: SIMVASTATIN 20 MG TAB PO (20:45)
[2018-09-03] MEDS: GABAPENTIN 300 MG CAP PO (20:46)
[2018-09-03] MEDS: **NOTE PATIENT COMMENT** MISC XX (20:47)
[2018-09-04] MEDS: SLF 3 ML SYR IV ×3 (05:04→21:46)
[2018-09-04] MEDS: LIDOCAINE 5% (LIDODERM) PATCH TD (05:04)
[2018-09-04] MEDS: LACTOBACILLUS ACIDOPHILUS CAP (BACID) PO ×3 (05:05→21:42)
[2018-09-04] MEDS: CALCIUM CARBONATE 500 MG CHEW U/D PO ×3 (05:05→18:11)
[2018-09-04] MEDS: LEVOTHYROXINE 100MCG TABLET (0.1MG) PO (05:05)
[2018-09-04] MEDS: DULoxetine 30 MG CAP (CYMBALTA) PO (05:05)
[2018-09-04] MEDS: rOPINIRole 2MG TAB PO ×2 (05:05→21:41)
[2018-09-04] MEDS: GABAPENTIN 100 MG CAP PO ×2 (05:05→12:00)
[2018-09-04] MEDS: CLOPIDOGREL 75 MG TAB PO (05:06)
[2018-09-04] MEDS: SENOKOT S TAB PO ×2 (05:06→21:41)
[2018-09-04] MEDS: CALCIUM ACETATE 667 MG GELCAP PO ×3 (05:06→18:11)
[2018-09-04] MEDS: PANTOPRAZOLE 40MG TAB (PROTONIX) PO (05:06)
[2018-09-04] MEDS: METOPROLOL SUCC (TopROL XL) 50MG **XL** TAB PO ×2 (05:14→21:42)
[2018-09-04] MEDS: LOSARTAN 50 MG TAB PO (05:15)
[2018-09-04] MEDS: ONDANSETRON 4MG/2ML VIAL (J2405) IV (06:56)
[2018-09-04 07:08] LABS: HEMATOCRIT 33.9 % (36.0-47.0); HEMOGLOBIN 9.9 g/dl (12.0-15.5); MEAN CORPUSCULAR HEMOGLOBIN 28.4 pg (27.0-33.0); MEAN CORPUSCULAR HGB CONC 29.2 g/dl (32.0-36.5); MEAN CORPUSCULAR VOLUME 97.1 fl (80.0-96.0); PLATELET COUNT, AUTOMATED 130 10^3/uL (150-450); RED BLOOD COUNT 3.49 10^6/uL (4.00-5.40); RED CELL DISTRIBUTION WIDTH 17.9 % (11.5-14.5); WHITE BLOOD COUNT 6.7 10^3/uL (4.0-10.0)
[2018-09-04 07:37] LABS: ALBUMIN 2.1 GM/DL (3.2-5.2); ALBUMIN/GLOBULIN RATIO 0.51 (1.00-1.93); ALKALINE PHOSPHATASE 523 U/L (45-117); ALT/SGPT 53 U/L (12-78); ANION GAP 9 MEQ/L (8-16); AST/SGOT 56 U/L (7-37); BILIRUBIN,TOTAL 0.4 MG/DL (0.2-1.0); BLOOD UREA NITROGEN 50 MG/DL (7-18); C REACTIVE PROTEIN QUANTITATIV 3.63 MG/DL (0.00-0.30); CALCIUM LEVEL 7.8 MG/DL (8.8-10.2); CARBON DIOXIDE LEVEL 27 MEQ/L (21-32); CHLORIDE LEVEL 101 MEQ/L (98-107); CREATININE FOR GFR 5.97 MG/DL (0.55-1.30); GLOMERULAR FILTRATION RATE 7.4 (>45); GLUCOSE, FASTING 157 MG/DL (70-100); POTASSIUM SERUM 4.5 MEQ/L (3.5-5.1); SODIUM LEVEL 137 MEQ/L (136-145); TOTAL PROTEIN 6.2 GM/DL (6.4-8.2); VANCOMYCIN RANDOM 27.8 UG/ML
[2018-09-04 07:58] LABS: ERYTHROCYTE SEDIMENTATION RATE 44 mm/hr (0-30)
[2018-09-04] MEDS: HumaLOG INSULIN (NovoLOG) PER UNIT SC ×4 (08:36→21:43)
[2018-09-04] MEDS: LEVEMIR (INSULIN DETEMIR) 1 UNITS/0.01ML SC ×2 (08:37→21:42)
[2018-09-04] MEDS: HEPARIN 1,000 UNITS/ML 10ML VIAL (FOR RADIOLOGY& DIALYSIS ONLY) IV (11:00)
[2018-09-04] MEDS: LIDOCAINE 1% SDV 5 ML VIAL SQ (11:00)
[2018-09-04 16:54] LABS: BEDSIDE GLUCOSE 207 MG/DL (80-115)
[2018-09-04 20:02] LABS: BEDSIDE GLUCOSE 264 MG/DL (80-115)
[2018-09-04] MEDS: **NOTE PATIENT COMMENT** MISC XX (21:00)
[2018-09-04] MEDS: GABAPENTIN 300 MG CAP PO (21:41)
[2018-09-04] MEDS: SIMVASTATIN 20 MG TAB PO (21:41)
[2018-09-04] MEDS: RAMELTEON 8 MG TAB (ROZEREM) PO (21:42)
[2018-09-04] MEDS: PERCOCET 5MG/325MG TAB PO (21:44)
[2018-09-05 05:49] LABS: HEMATOCRIT 32.5 % (36.0-47.0); HEMOGLOBIN 9.6 g/dl (12.0-15.5); MEAN CORPUSCULAR HEMOGLOBIN 28.6 pg (27.0-33.0); MEAN CORPUSCULAR HGB CONC 29.5 g/dl (32.0-36.5); MEAN CORPUSCULAR VOLUME 96.7 fl (80.0-96.0); PLATELET COUNT, AUTOMATED 137 10^3/uL (150-450); RED BLOOD COUNT 3.36 10^6/uL (4.00-5.40); RED CELL DISTRIBUTION WIDTH 18.1 % (11.5-14.5); WHITE BLOOD COUNT 6.1 10^3/uL (4.0-10.0)
[2018-09-05] MEDS: SLF 3 ML SYR IV ×3 (05:58→21:36)
[2018-09-05] MEDS: LEVOTHYROXINE 100MCG TABLET (0.1MG) PO (05:58)
[2018-09-05 06:19] LABS: ALBUMIN 2.2 GM/DL (3.2-5.2); ALBUMIN/GLOBULIN RATIO 0.56 (1.00-1.93); ALKALINE PHOSPHATASE 659 U/L (45-117); ALT/SGPT 80 U/L (12-78); ANION GAP 7 MEQ/L (8-16); AST/SGOT 101 U/L (7-37); BILIRUBIN,TOTAL 0.4 MG/DL (0.2-1.0); BLOOD UREA NITROGEN 35 MG/DL (7-18); C REACTIVE PROTEIN QUANTITATIV 3.59 MG/DL (0.00-0.30); CALCIUM LEVEL 7.8 MG/DL (8.8-10.2); CARBON DIOXIDE LEVEL 30 MEQ/L (21-32); CHLORIDE LEVEL 102 MEQ/L (98-107); GLOMERULAR FILTRATION RATE 10.6 (>45); GLUCOSE, FASTING 230 MG/DL (70-100); POTASSIUM SERUM 4.1 MEQ/L (3.5-5.1); SODIUM LEVEL 139 MEQ/L (136-145); TOTAL PROTEIN 6.1 GM/DL (6.4-8.2)
[2018-09-05] MEDS: PERCOCET 5MG/325MG TAB PO ×2 (06:20→21:45)
[2018-09-05 06:23] LABS: ERYTHROCYTE SEDIMENTATION RATE 48 mm/hr (0-30)
[2018-09-05] MEDS: HumaLOG INSULIN (NovoLOG) PER UNIT SC ×4 (07:30→21:00)
[2018-09-05] MEDS: CLOPIDOGREL 75 MG TAB PO (08:34)
[2018-09-05] MEDS: CALCIUM CARBONATE 500 MG CHEW U/D PO ×3 (08:34→17:05)
[2018-09-05] MEDS: LACTOBACILLUS ACIDOPHILUS CAP (BACID) PO ×3 (08:34→21:36)
[2018-09-05] MEDS: rOPINIRole 2MG TAB PO ×2 (08:34→21:36)
[2018-09-05] MEDS: GABAPENTIN 100 MG CAP PO ×2 (08:34→12:27)
[2018-09-05] MEDS: DULoxetine 30 MG CAP (CYMBALTA) PO (08:35)
[2018-09-05] MEDS: PANTOPRAZOLE 40MG TAB (PROTONIX) PO (08:35)
[2018-09-05] MEDS: LOSARTAN 50 MG TAB PO (08:35)
[2018-09-05] MEDS: SENOKOT S TAB PO ×2 (08:35→21:36)
[2018-09-05] MEDS: CALCIUM ACETATE 667 MG GELCAP PO ×3 (08:35→17:05)
[2018-09-05] MEDS: METOPROLOL SUCC (TopROL XL) 50MG **XL** TAB PO ×2 (08:35→21:37)
[2018-09-05] MEDS: LEVEMIR (INSULIN DETEMIR) 1 UNITS/0.01ML SC ×2 (08:35→21:36)
[2018-09-05] MEDS: LIDOCAINE 5% (LIDODERM) PATCH TD (08:35)
[2018-09-05 12:12] LABS: BEDSIDE GLUCOSE 296 MG/DL (80-115)
[2018-09-05 13:45] LABS: APPEARANCE, URINE CLOUDY (CLEAR); BACTERIA, URINE AUTO 1+ (NEGATIVE); BILIRUBIN, URINE AUTO 1+ (NEGATIVE); BLOOD, URINE BLOOD 1+ (NEGATIVE); COLOR, URINE AMBER (YELLOW); GLUCOSE, URINE (UA) AUTO 2+ mg/dL (NEGATIVE); KETONE, URINE AUTO NEGATIVE (NEGATIVE); LEUKOCYTE ESTERASE, URINE AUTO 1+ (NEGATIVE); NITRITE, URINE AUTO NEGATIVE (NEGATIVE); PROTEIN, URINE AUTO 3+ mg/dL (NEGATIVE); RBC, URINE AUTO 24 /HPF (0-3); SPECIFIC GRAVITY URINE AUTO 1.022 (1.002-1.035); SQUAMOUS EPITHELIAL CELL UR AU 56 /HPF (0-6); UROBILINOGEN, URINE AUTO 0.2 mg/dL (0.0-2.0); WBC, URINE AUTO 14 /HPF (0-3); YEAST LIKE CELL URINE AUTO SMALL
[2018-09-05] MEDS: **VANCO AFTER HD** MISC XX (15:04)
[2018-09-05 16:53] LABS: BEDSIDE GLUCOSE 309 MG/DL (80-115)
[2018-09-05 20:32] LABS: BEDSIDE GLUCOSE 223 MG/DL (80-115)
[2018-09-05] MEDS: **NOTE PATIENT COMMENT** MISC XX (21:00)
[2018-09-05] MEDS: SIMVASTATIN 20 MG TAB PO (21:36)
[2018-09-05] MEDS: RAMELTEON 8 MG TAB (ROZEREM) PO (21:36)
[2018-09-05] MEDS: GABAPENTIN 300 MG CAP PO (21:37)
[2018-09-06] MEDS: CALCIUM ACETATE 667 MG GELCAP PO ×3 (06:04→17:12)
[2018-09-06] MEDS: CALCIUM CARBONATE 500 MG CHEW U/D PO ×3 (06:04→17:12)
[2018-09-06] MEDS: PANTOPRAZOLE 40MG TAB (PROTONIX) PO (06:04)
[2018-09-06] MEDS: CLOPIDOGREL 75 MG TAB PO (06:04)
[2018-09-06] MEDS: LOSARTAN 50 MG TAB PO (06:05)
[2018-09-06] MEDS: METOPROLOL SUCC (TopROL XL) 50MG **XL** TAB PO ×2 (06:05→20:07)
[2018-09-06] MEDS: rOPINIRole 2MG TAB PO ×2 (06:05→20:07)
[2018-09-06] MEDS: LIDOCAINE 5% (LIDODERM) PATCH TD (06:06)
[2018-09-06] MEDS: SLF 3 ML SYR IV ×3 (06:06→21:43)
[2018-09-06] MEDS: LACTOBACILLUS ACIDOPHILUS CAP (BACID) PO ×3 (06:10→20:08)
[2018-09-06] MEDS: GABAPENTIN 100 MG CAP PO ×2 (06:10→11:31)
[2018-09-06] MEDS: SENOKOT S TAB PO ×2 (06:10→20:08)
[2018-09-06] MEDS: LEVOTHYROXINE 100MCG TABLET (0.1MG) PO (06:10)
[2018-09-06] MEDS: DULoxetine 30 MG CAP (CYMBALTA) PO (06:14)
[2018-09-06 07:09] LABS: HEMATOCRIT 35.6 % (36.0-47.0); HEMOGLOBIN 10.6 g/dl (12.0-15.5); MEAN CORPUSCULAR HEMOGLOBIN 28.3 pg (27.0-33.0); MEAN CORPUSCULAR HGB CONC 29.8 g/dl (32.0-36.5); MEAN CORPUSCULAR VOLUME 95.2 fl (80.0-96.0); PLATELET COUNT, AUTOMATED 151 10^3/uL (150-450); RED BLOOD COUNT 3.74 10^6/uL (4.00-5.40); RED CELL DISTRIBUTION WIDTH 18.3 % (11.5-14.5); WHITE BLOOD COUNT 7.1 10^3/uL (4.0-10.0)
[2018-09-06 07:13] LABS: ALBUMIN 2.3 GM/DL (3.2-5.2); ALBUMIN/GLOBULIN RATIO 0.53 (1.00-1.93); ALKALINE PHOSPHATASE 627 U/L (45-117); ALT/SGPT 83 U/L (12-78); ANION GAP 9 MEQ/L (8-16); AST/SGOT 81 U/L (7-37); BILIRUBIN,TOTAL 0.5 MG/DL (0.2-1.0); BLOOD UREA NITROGEN 49 MG/DL (7-18); CALCIUM LEVEL 8.6 MG/DL (8.8-10.2); CARBON DIOXIDE LEVEL 29 MEQ/L (21-32); CHLORIDE LEVEL 102 MEQ/L (98-107); CREATININE FOR GFR 5.54 MG/DL (0.55-1.30); GLOMERULAR FILTRATION RATE 8.1 (>45); GLUCOSE, FASTING 123 MG/DL (70-100); POTASSIUM SERUM 4.4 MEQ/L (3.5-5.1); SODIUM LEVEL 140 MEQ/L (136-145); TOTAL PROTEIN 6.6 GM/DL (6.4-8.2); VANCOMYCIN RANDOM 21.6 UG/ML
[2018-09-06 08:05] LABS: ERYTHROCYTE SEDIMENTATION RATE 45 mm/hr (0-30)
[2018-09-06] MEDS: ONDANSETRON 4 MG TAB (S0181) PO (08:26)
[2018-09-06] MEDS: LEVEMIR (INSULIN DETEMIR) 1 UNITS/0.01ML SC ×2 (08:27→20:08)
[2018-09-06] MEDS: HumaLOG INSULIN (NovoLOG) PER UNIT SC ×4 (08:28→20:09)
[2018-09-06 11:03] LABS: BEDSIDE GLUCOSE 247 MG/DL (80-115)
[2018-09-06] MEDS: HEPARIN 1,000 UNITS/ML 10ML VIAL (FOR RADIOLOGY& DIALYSIS ONLY) IV (11:15)
[2018-09-06] MEDS: **VANCO AFTER HD** MISC XX (16:00)
[2018-09-06 17:02] LABS: BEDSIDE GLUCOSE 199 MG/DL (80-115)
[2018-09-06] MEDS: VANCOMYCIN HCL 500 MG in D5W MINI-BAG PLUS 100 ML IV (17:13)
[2018-09-06 19:55] LABS: BEDSIDE GLUCOSE 274 MG/DL (80-115)
[2018-09-06] MEDS: GABAPENTIN 300 MG CAP PO (20:07)
[2018-09-06] MEDS: SIMVASTATIN 20 MG TAB PO (20:08)
[2018-09-06] MEDS: **NOTE PATIENT COMMENT** MISC XX (20:09)
[2018-09-06] MEDS: PERCOCET 5MG/325MG TAB PO (20:10)
[2018-09-07] MEDS: LEVOTHYROXINE 100MCG TABLET (0.1MG) PO (05:14)
[2018-09-07] MEDS: SLF 3 ML SYR IV ×3 (06:00→21:06)
[2018-09-07 06:27] LABS: HEMATOCRIT 33.1 % (36.0-47.0); HEMOGLOBIN 9.9 g/dl (12.0-15.5); MEAN CORPUSCULAR HEMOGLOBIN 28.8 pg (27.0-33.0); MEAN CORPUSCULAR HGB CONC 29.9 g/dl (32.0-36.5); MEAN CORPUSCULAR VOLUME 96.2 fl (80.0-96.0); PLATELET COUNT, AUTOMATED 156 10^3/uL (150-450); RED BLOOD COUNT 3.44 10^6/uL (4.00-5.40); RED CELL DISTRIBUTION WIDTH 18.4 % (11.5-14.5); WHITE BLOOD COUNT 6.5 10^3/uL (4.0-10.0)
[2018-09-07 06:33] LABS: ALBUMIN 2.2 GM/DL (3.2-5.2); ALBUMIN/GLOBULIN RATIO 0.52 (1.00-1.93); ALKALINE PHOSPHATASE 643 U/L (45-117); ALT/SGPT 71 U/L (12-78); ANION GAP 9 MEQ/L (8-16); AST/SGOT 67 U/L (7-37); BILIRUBIN,TOTAL 0.4 MG/DL (0.2-1.0); BLOOD UREA NITROGEN 28 MG/DL (7-18); C REACTIVE PROTEIN QUANTITATIV 2.72 MG/DL (0.00-0.30); CALCIUM LEVEL 7.8 MG/DL (8.8-10.2); CARBON DIOXIDE LEVEL 29 MEQ/L (21-32); CHLORIDE LEVEL 101 MEQ/L (98-107); CREATININE FOR GFR 4.13 MG/DL (0.55-1.30); GLOMERULAR FILTRATION RATE 11.4 (>45); GLUCOSE, FASTING 233 MG/DL (70-100); POTASSIUM SERUM 3.9 MEQ/L (3.5-5.1); SODIUM LEVEL 139 MEQ/L (136-145); TOTAL PROTEIN 6.4 GM/DL (6.4-8.2)
[2018-09-07 07:05] LABS: ERYTHROCYTE SEDIMENTATION RATE 54 mm/hr (0-30)
[2018-09-07] MEDS: rOPINIRole 2MG TAB PO ×2 (08:13→21:03)
[2018-09-07] MEDS: LACTOBACILLUS ACIDOPHILUS CAP (BACID) PO ×3 (08:14→21:03)
[2018-09-07] MEDS: CALCIUM CARBONATE 500 MG CHEW U/D PO ×3 (08:14→17:48)
[2018-09-07] MEDS: CALCIUM ACETATE 667 MG GELCAP PO ×3 (08:14→16:38)
[2018-09-07] MEDS: GABAPENTIN 100 MG CAP PO ×2 (08:14→12:37)
[2018-09-07] MEDS: SENOKOT S TAB PO ×2 (08:15→21:04)
[2018-09-07] MEDS: PANTOPRAZOLE 40MG TAB (PROTONIX) PO (08:15)
[2018-09-07] MEDS: LOSARTAN 50 MG TAB PO (08:16)
[2018-09-07] MEDS: METOPROLOL SUCC (TopROL XL) 50MG **XL** TAB PO ×3 (08:18→21:04)
[2018-09-07] MEDS: CLOPIDOGREL 75 MG TAB PO (08:21)
[2018-09-07] MEDS: DULoxetine 30 MG CAP (CYMBALTA) PO (08:22)
[2018-09-07] MEDS: HumaLOG INSULIN (NovoLOG) PER UNIT SC ×4 (08:24→21:05)
[2018-09-07] MEDS: LIDOCAINE 5% (LIDODERM) PATCH TD (08:25)
[2018-09-07] MEDS: LEVEMIR (INSULIN DETEMIR) 1 UNITS/0.01ML SC ×2 (08:25→21:05)
[2018-09-07 11:34] LABS: BEDSIDE GLUCOSE 248 MG/DL (80-115)
[2018-09-07] MEDS: **VANCO AFTER HD** MISC XX (16:00)
[2018-09-07 16:40] LABS: BEDSIDE GLUCOSE 364 MG/DL (80-115)
[2018-09-07] MEDS: PERCOCET 5MG/325MG TAB PO (19:08)
[2018-09-07 20:35] LABS: BEDSIDE GLUCOSE 368 MG/DL (80-115)
[2018-09-07] MEDS: **NOTE PATIENT COMMENT** MISC XX (21:00)
[2018-09-07] MEDS: GABAPENTIN 300 MG CAP PO (21:04)
[2018-09-07] MEDS: SIMVASTATIN 20 MG TAB PO (21:04)
[2018-09-08 05:56] LABS: HEMATOCRIT 33.5 % (36.0-47.0); HEMOGLOBIN 9.7 g/dl (12.0-15.5); MEAN CORPUSCULAR HEMOGLOBIN 28.2 pg (27.0-33.0); MEAN CORPUSCULAR VOLUME 97.4 fl (80.0-96.0); PLATELET COUNT, AUTOMATED 127 10^3/uL (150-450); RED BLOOD COUNT 3.44 10^6/uL (4.00-5.40); RED CELL DISTRIBUTION WIDTH 18.3 % (11.5-14.5); WHITE BLOOD COUNT 6.4 10^3/uL (4.0-10.0)
[2018-09-08] MEDS: SLF 3 ML SYR IV (06:00)
[2018-09-08] MEDS: LIDOCAINE 5% (LIDODERM) PATCH TD (06:05)
[2018-09-08] MEDS: CALCIUM ACETATE 667 MG GELCAP PO (06:06)
[2018-09-08] MEDS: DULoxetine 30 MG CAP (CYMBALTA) PO (06:06)
[2018-09-08] MEDS: LACTOBACILLUS ACIDOPHILUS CAP (BACID) PO (06:06)
[2018-09-08] MEDS: LEVOTHYROXINE 100MCG TABLET (0.1MG) PO (06:06)
[2018-09-08] MEDS: CALCIUM CARBONATE 500 MG CHEW U/D PO (06:06)
[2018-09-08] MEDS: PANTOPRAZOLE 40MG TAB (PROTONIX) PO (06:06)
[2018-09-08] MEDS: SENOKOT S TAB PO (06:06)
[2018-09-08] MEDS: GABAPENTIN 100 MG CAP PO (06:07)
[2018-09-08] MEDS: CLOPIDOGREL 75 MG TAB PO (06:07)
[2018-09-08] MEDS: METOPROLOL SUCC (TopROL XL) 50MG **XL** TAB PO (06:08)
[2018-09-08] MEDS: LOSARTAN 50 MG TAB PO (06:08)
[2018-09-08] MEDS: LEVEMIR (INSULIN DETEMIR) 1 UNITS/0.01ML SC (06:09)
[2018-09-08] MEDS: rOPINIRole 2MG TAB PO (06:13)
[2018-09-08 06:15] LABS: ALBUMIN 2.3 GM/DL (3.2-5.2); ALBUMIN/GLOBULIN RATIO 0.58 (1.00-1.93); ALKALINE PHOSPHATASE 578 U/L (45-117); ALT/SGPT 69 U/L (12-78); ANION GAP 9 MEQ/L (8-16); AST/SGOT 64 U/L (7-37); BILIRUBIN,TOTAL 0.5 MG/DL (0.2-1.0); BLOOD UREA NITROGEN 46 MG/DL (7-18); C REACTIVE PROTEIN QUANTITATIV 2.44 MG/DL (0.00-0.30); CALCIUM LEVEL 8.1 MG/DL (8.8-10.2); CARBON DIOXIDE LEVEL 29 MEQ/L (21-32); CHLORIDE LEVEL 101 MEQ/L (98-107); CREATININE FOR GFR 5.61 MG/DL (0.55-1.30); GLUCOSE, FASTING 169 MG/DL (70-100); POTASSIUM SERUM 4.2 MEQ/L (3.5-5.1); SODIUM LEVEL 139 MEQ/L (136-145); TOTAL PROTEIN 6.3 GM/DL (6.4-8.2)
[2018-09-08 06:24] LABS: ERYTHROCYTE SEDIMENTATION RATE 43 mm/hr (0-30)
[2018-09-08] MEDS: HumaLOG INSULIN (NovoLOG) PER UNIT SC (08:07)
[2018-09-08] MEDS: ONDANSETRON 4MG/2ML VIAL (J2405) IV (08:08)
[2018-09-08] MEDS ORDERED: HEPARIN 1,000 UNITS/ML 10ML VIAL (FOR RADIOLOGY& DIALYSIS ONLY) IV (10:45)
[2018-09-08] MEDS ORDERED: DARBEPOETIN 100 MCG/0.5 ML *DIALYSIS* SYRINGE (J0882) IV (11:00)
[2018-09-08 13:59] LABS: HEPATITIS C VIRUS ABY INDEX < 0.0 INDEX (<0.8)
[2018-09-08 13:59] LABS: HEPATITIS A ANTIBODY IGM NEGATIVE (NEGATIVE); HEPATITIS B CORE ANTIBODY IGM NEGATIVE (NEGATIVE); HEPATITIS B SURFACE ANTIGEN NEGATIVE (NEGATIVE)
== END 2018-09-08 11:12 | DRG 853 ==
LOC: M MS5PR 09-01 01:15 → M ED 09:48 → M ED INP 14:53 → M PCU 20:30
PROC: 0QBN0ZZ Excision of Right Metatarsal, Open Approach (ICD-10-PCS; principal; 2018-08-25 12:00)
PROC: 0Y9M0ZZ Drainage of Right Foot, Open Approach (ICD-10-PCS; 2018-08-25 12:00)
PROC: 5A1D70Z Performance of Urinary Filtration, Intermittent, Less than 6 Hours Per Day (ICD-10-PCS; 2018-08-25 13:50)
DX: A41.2 Sepsis due to unspecified staphylococcus (principal); N18.6 End stage renal disease; G93.41 Metabolic encephalopathy; I50.32 Chronic diastolic (congestive) heart failure; I13.2 Hypertensive heart and chronic kidney disease with heart failure and with stage 5 chronic kidney disease, or end stage renal disease; E46 Unspecified protein-calorie malnutrition; M86.171 Other acute osteomyelitis, right ankle and foot; E11.618 Type 2 diabetes mellitus with other diabetic arthropathy; K74.69 Other cirrhosis of liver; I25.10 Atherosclerotic heart disease of native coronary artery without angina pectoris; E03.9 Hypothyroidism, unspecified; E78.5 Hyperlipidemia, unspecified; G25.81 Restless legs syndrome; K21.9 Gastro-esophageal reflux disease without esophagitis; G47.33 Obstructive sleep apnea (adult) (pediatric); Z91.19 Patient's noncompliance with other medical treatment and regimen; F32.9 Major depressive disorder, single episode, unspecified; Z79.899 Other long term (current) drug therapy; Z95.2 Presence of prosthetic heart valve; D63.1 Anemia in chronic kidney disease; E11.319 Type 2 diabetes mellitus with unspecified diabetic retinopathy without macular edema; E11.40 Type 2 diabetes mellitus with diabetic neuropathy, unspecified; I25.2 Old myocardial infarction; Z88.8 Allergy status to other drugs, medicaments and biological substances; Z11.9 Encounter for screening for infectious and parasitic diseases, unspecified

== ENCOUNTER 2018-09-08 11:15 | Inpatient (IN) | payer MEDICARE ==
[2018-09-08] MEDS: **VANCO AFTER HD** MISC XX (16:00)
[2018-09-08] MEDS ORDERED: GLUCAGON FOR INJ 1 MG VIAL (J1610) SC (16:45)
[2018-09-08] MEDS ORDERED: DEXTROSE 50% 50 ML SYRINGE IV (16:45)
[2018-09-08] MEDS ORDERED: BISACODYL 5 MG TAB PO (16:45)
[2018-09-08] MEDS ORDERED: GLUCOSE 4 GM CHEW TABLET PO (16:45)
[2018-09-08] MEDS: EUCERIN 120GM CREAM EXT (17:32)
[2018-09-08 18:06] LABS: BEDSIDE GLUCOSE 199 MG/DL (80-115)
[2018-09-08] MEDS: GABAPENTIN 300 MG CAP PO ×2 (18:19→21:01)
[2018-09-08] MEDS: VANCOMYCIN HCL 500 MG in D5W MINI-BAG PLUS 100 ML IV (18:20)
[2018-09-08] MEDS: CALCIUM CARBONATE 500 MG CHEW U/D PO (18:20)
[2018-09-08] MEDS: HumaLOG INSULIN (NovoLOG) PER UNIT SC (18:20)
[2018-09-08] MEDS: ONDANSETRON 4 MG TAB (S0181) PO (18:33)
[2018-09-08 20:27] LABS: BEDSIDE GLUCOSE 297 MG/DL (80-115)
[2018-09-08] MEDS: METOPROLOL SUCC (TopROL XL) 50MG **XL** TAB PO (20:39)
[2018-09-08] MEDS: **NOTE PATIENT COMMENT** MISC XX (21:00)
[2018-09-08] MEDS: SENNA 8.6 MG TAB (SENOKOT) PO (21:00)
[2018-09-08] MEDS: CALCIUM ACETATE 667 MG GELCAP PO (21:00)
[2018-09-08] MEDS: SIMVASTATIN 20 MG TAB PO (21:01)
[2018-09-08] MEDS: rOPINIRole 2MG TAB PO (21:01)
[2018-09-08] MEDS: LEVEMIR (INSULIN DETEMIR) 1 UNITS/0.01ML SC (21:02)
[2018-09-08] MEDS: DOCUSATE SODIUM 100 MG CAP PO (21:02)
[2018-09-08] MEDS: HEPARIN SOD (PORCINE) 5000 UNITS/ML VIAL SC (21:03)
[2018-09-08] MEDS: oxyCODONE 5MG TAB PO (23:30)
[2018-09-09 05:38] LABS: BEDSIDE GLUCOSE 251 MG/DL (80-115)
[2018-09-09] MEDS: LEVOTHYROXINE 100MCG TABLET (0.1MG) PO (06:06)
[2018-09-09 07:27] LABS: BASO # 0.1 10^3/uL (0.0-0.2); BASO % 0.6 % (0.0-1.0); EOS # 0.2 10^3/uL (0.0-0.50); EOS % 1.9 % (0.0-3.0); HEMATOCRIT 35.3 % (36.0-47.0); HEMOGLOBIN 10.6 g/dl (12.0-15.5); IMMATURE GRANULOCYTE % 3.4 % (0-3.0); MEAN CORPUSCULAR VOLUME 96.7 fl (80.0-96.0); MONO # 0.7 10^3/uL (0.0-0.8); MONO % 8.1 % (0.0-5.0); NEUTROPHILS # 5.8 10^3/uL (1.8-7.7); PLATELET COUNT, AUTOMATED 144 10^3/uL (150-450); RED BLOOD COUNT 3.65 10^6/uL (4.00-5.40); RED CELL DISTRIBUTION WIDTH 18.4 % (11.5-14.5)
[2018-09-09 07:56] LABS: ALBUMIN 2.5 GM/DL (3.2-5.2); ALBUMIN/GLOBULIN RATIO 0.54 (1.00-1.93); ALKALINE PHOSPHATASE 647 U/L (45-117); ALT/SGPT 72 U/L (12-78); ANION GAP 8 MEQ/L (8-16); AST/SGOT 59 U/L (7-37); BILIRUBIN,TOTAL 0.5 MG/DL (0.2-1.0); BLOOD UREA NITROGEN 32 MG/DL (7-18); CALCIUM LEVEL 8.7 MG/DL (8.8-10.2); CARBON DIOXIDE LEVEL 27 MEQ/L (21-32); CHLORIDE LEVEL 102 MEQ/L (98-107); CREATININE FOR GFR 4.62 MG/DL (0.55-1.30); GLUCOSE, FASTING 214 MG/DL (70-100); POTASSIUM SERUM 4.5 MEQ/L (3.5-5.1); SODIUM LEVEL 137 MEQ/L (136-145); TOTAL PROTEIN 7.1 GM/DL (6.4-8.2)
[2018-09-09] MEDS: oxyCODONE 5MG TAB PO ×3 (08:00→16:25)
[2018-09-09] MEDS: LACTOBACILLUS ACIDOPHILUS CAP (BACID) PO (08:24)
[2018-09-09] MEDS: LIDOCAINE 5% (LIDODERM) PATCH TD (08:25)
[2018-09-09] MEDS: LOSARTAN 50 MG TAB PO (08:26)
[2018-09-09] MEDS: DOCUSATE SODIUM 100 MG CAP PO ×2 (08:26→21:24)
[2018-09-09] MEDS: GABAPENTIN 300 MG CAP PO (08:26)
[2018-09-09] MEDS: rOPINIRole 2MG TAB PO ×2 (08:26→21:26)
[2018-09-09] MEDS: CLOPIDOGREL 75 MG TAB PO (08:27)
[2018-09-09] MEDS: HEPARIN SOD (PORCINE) 5000 UNITS/ML VIAL SC ×2 (08:27→21:26)
[2018-09-09] MEDS: PANTOPRAZOLE 40MG TAB (PROTONIX) PO (08:27)
[2018-09-09] MEDS: METOPROLOL SUCC (TopROL XL) 50MG **XL** TAB PO ×2 (08:27→21:00)
[2018-09-09] MEDS: CALCIUM CARBONATE 500 MG CHEW U/D PO ×3 (08:27→17:23)
[2018-09-09] MEDS: CALCIUM ACETATE 667 MG GELCAP PO ×3 (08:27→17:23)
[2018-09-09] MEDS: DULoxetine 30 MG CAP (CYMBALTA) PO (08:27)
[2018-09-09] MEDS: LEVEMIR (INSULIN DETEMIR) 1 UNITS/0.01ML SC ×2 (08:28→21:26)
[2018-09-09] MEDS: HumaLOG INSULIN (NovoLOG) PER UNIT SC ×3 (08:28→17:23)
[2018-09-09] MEDS: EUCERIN 120GM CREAM EXT (08:28)
[2018-09-09 12:04] LABS: BEDSIDE GLUCOSE 239 MG/DL (80-115)
[2018-09-09] MEDS ORDERED: DARBEPOETIN 100 MCG/0.5 ML *DIALYSIS* SYRINGE (J0882) IV (15:45)
[2018-09-09] MEDS: **VANCO AFTER HD** MISC XX (16:00)
[2018-09-09] MEDS: GABAPENTIN 400 MG CAP PO ×2 (16:24→21:24)
[2018-09-09 16:50] LABS: BEDSIDE GLUCOSE 262 MG/DL (80-115)
[2018-09-09 19:47] LABS: BEDSIDE GLUCOSE 252 MG/DL (80-115)
[2018-09-09] MEDS: SIMVASTATIN 20 MG TAB PO (21:24)
[2018-09-09] MEDS: SENNA 8.6 MG TAB (SENOKOT) PO (21:24)
[2018-09-09] MEDS: **NOTE PATIENT COMMENT** MISC XX (21:29)
[2018-09-10 05:27] LABS: BEDSIDE GLUCOSE 326 MG/DL (80-115)
[2018-09-10] MEDS: LEVOTHYROXINE 100MCG TABLET (0.1MG) PO (05:38)
[2018-09-10] MEDS: oxyCODONE 5MG TAB PO ×2 (05:39→21:58)
[2018-09-10 05:57] LABS: AMORPHOUS SEDIMENT SMALL (NEGATIVE); APPEARANCE, URINE CLOUDY (CLEAR); BACTERIA, URINE AUTO 1+ (NEGATIVE); BILIRUBIN, URINE AUTO NEGATIVE (NEGATIVE); BLOOD, URINE BLOOD 2+ (NEGATIVE); COLOR, URINE AMBER (YELLOW); GLUCOSE, URINE (UA) AUTO 1+ mg/dL (NEGATIVE); KETONE, URINE AUTO NEGATIVE (NEGATIVE); LEUKOCYTE ESTERASE, URINE AUTO 3+ (NEGATIVE); NITRITE, URINE AUTO NEGATIVE (NEGATIVE); PROTEIN, URINE AUTO 3+ mg/dL (NEGATIVE); RBC, URINE AUTO 21 /HPF (0-3); SPECIFIC GRAVITY URINE AUTO 1.019 (1.002-1.035); SQUAMOUS EPITHELIAL CELL UR AU 41 /HPF (0-6); UROBILINOGEN, URINE AUTO 0.2 mg/dL (0.0-2.0); WBC, URINE AUTO 81 /HPF (0-3)
[2018-09-10] MEDS: HEPARIN SOD (PORCINE) 5000 UNITS/ML VIAL SC ×2 (08:19→21:54)
[2018-09-10] MEDS: LEVEMIR (INSULIN DETEMIR) 1 UNITS/0.01ML SC ×2 (08:19→21:55)
[2018-09-10] MEDS: HumaLOG INSULIN (NovoLOG) PER UNIT SC ×3 (08:19→17:13)
[2018-09-10] MEDS: EUCERIN 120GM CREAM EXT (08:19)
[2018-09-10] MEDS: CALCIUM ACETATE 667 MG GELCAP PO ×3 (08:20→17:13)
[2018-09-10] MEDS: DOCUSATE SODIUM 100 MG CAP PO ×2 (08:20→21:55)
[2018-09-10] MEDS: LIDOCAINE 5% (LIDODERM) PATCH TD (08:20)
[2018-09-10] MEDS: METOPROLOL SUCC (TopROL XL) 50MG **XL** TAB PO ×2 (08:20→21:54)
[2018-09-10] MEDS: CALCIUM CARBONATE 500 MG CHEW U/D PO ×3 (08:20→17:13)
[2018-09-10] MEDS: rOPINIRole 2MG TAB PO ×2 (08:20→21:53)
[2018-09-10] MEDS: LACTOBACILLUS ACIDOPHILUS CAP (BACID) PO (08:20)
[2018-09-10] MEDS: GABAPENTIN 400 MG CAP PO ×3 (08:20→21:53)
[2018-09-10] MEDS: LOSARTAN 50 MG TAB PO (08:21)
[2018-09-10] MEDS: PANTOPRAZOLE 40MG TAB (PROTONIX) PO (08:21)
[2018-09-10] MEDS: DULoxetine 30 MG CAP (CYMBALTA) PO (08:21)
[2018-09-10] MEDS: CLOPIDOGREL 75 MG TAB PO (08:21)
[2018-09-10 11:28] LABS: BEDSIDE GLUCOSE 197 MG/DL (80-115)
[2018-09-10] MEDS: TORSEMIDE 20 MG TAB PO (12:01)
[2018-09-10] MEDS: **VANCO AFTER HD** MISC XX (16:00)
[2018-09-10 16:38] LABS: BEDSIDE GLUCOSE 341 MG/DL (80-115)
[2018-09-10 20:12] LABS: BEDSIDE GLUCOSE 312 MG/DL (80-115)
[2018-09-10] MEDS: SIMVASTATIN 20 MG TAB PO (21:54)
[2018-09-10] MEDS: SENNA 8.6 MG TAB (SENOKOT) PO (21:55)
[2018-09-10] MEDS: **NOTE PATIENT COMMENT** MISC XX (21:55)
[2018-09-11 05:16] LABS: BEDSIDE GLUCOSE 200 MG/DL (80-115)
[2018-09-11] MEDS: LEVOTHYROXINE 100MCG TABLET (0.1MG) PO (06:16)
[2018-09-11 07:15] LABS: VANCOMYCIN RANDOM 14.6 UG/ML
[2018-09-11] MEDS: HumaLOG INSULIN (NovoLOG) PER UNIT SC ×3 (08:28→17:41)
[2018-09-11] MEDS: HEPARIN SOD (PORCINE) 5000 UNITS/ML VIAL SC ×2 (08:29→20:18)
[2018-09-11] MEDS: LEVEMIR (INSULIN DETEMIR) 1 UNITS/0.01ML SC ×2 (08:29→20:17)
[2018-09-11] MEDS: CLOPIDOGREL 75 MG TAB PO (08:30)
[2018-09-11] MEDS: CALCIUM ACETATE 667 MG GELCAP PO ×3 (08:30→17:42)
[2018-09-11] MEDS: DOCUSATE SODIUM 100 MG CAP PO ×2 (08:30→20:18)
[2018-09-11] MEDS: PANTOPRAZOLE 40MG TAB (PROTONIX) PO (08:31)
[2018-09-11] MEDS: DULoxetine 30 MG CAP (CYMBALTA) PO (08:31)
[2018-09-11] MEDS: LOSARTAN 50 MG TAB PO (08:31)
[2018-09-11] MEDS: CALCIUM CARBONATE 500 MG CHEW U/D PO ×3 (08:31→17:41)
[2018-09-11] MEDS: oxyCODONE 5MG TAB PO ×3 (08:31→20:19)
[2018-09-11] MEDS: LACTOBACILLUS ACIDOPHILUS CAP (BACID) PO (08:31)
[2018-09-11] MEDS: LIDOCAINE 5% (LIDODERM) PATCH TD (08:32)
[2018-09-11] MEDS: rOPINIRole 2MG TAB PO ×2 (08:32→20:18)
[2018-09-11] MEDS: GABAPENTIN 400 MG CAP PO ×3 (08:32→20:18)
[2018-09-11] MEDS: TORSEMIDE 20 MG TAB PO (08:32)
[2018-09-11] MEDS: EUCERIN 120GM CREAM EXT (08:33)
[2018-09-11] MEDS: METOPROLOL SUCC (TopROL XL) 50MG **XL** TAB PO ×2 (09:00→20:18)
[2018-09-11] MEDS: HEPARIN 1,000 UNITS/ML 10ML VIAL (FOR RADIOLOGY& DIALYSIS ONLY) IV (10:00)
[2018-09-11 11:46] LABS: BEDSIDE GLUCOSE 248 MG/DL (80-115)
[2018-09-11] MEDS: **VANCO AFTER HD** MISC XX (16:00)
[2018-09-11] MEDS: ANALGESIC BALM CRM 120 GM TOP ×2 (16:00→20:20)
[2018-09-11] MEDS: VANCOMYCIN HCL 750 MG, VIAL MATE ADAPTER 1 EACH in D5W 250 ML IV (17:43)
[2018-09-11 20:09] LABS: BEDSIDE GLUCOSE 275 MG/DL (80-115)
[2018-09-11] MEDS: SENNA 8.6 MG TAB (SENOKOT) PO (20:18)
[2018-09-11] MEDS: SIMVASTATIN 20 MG TAB PO (20:19)
[2018-09-11] MEDS: **NOTE PATIENT COMMENT** MISC XX (20:19)
[2018-09-12] MEDS: LEVOTHYROXINE 100MCG TABLET (0.1MG) PO (06:25)
[2018-09-12] MEDS: oxyCODONE 5MG TAB PO ×2 (06:25→13:30)
[2018-09-12 07:09] LABS: BEDSIDE GLUCOSE 218 MG/DL (80-115)
[2018-09-12] MEDS: HumaLOG INSULIN (NovoLOG) PER UNIT SC ×3 (08:44→17:41)
[2018-09-12] MEDS: LEVEMIR (INSULIN DETEMIR) 1 UNITS/0.01ML SC ×3 (08:45→21:12)
[2018-09-12] MEDS: DOCUSATE SODIUM 100 MG CAP PO ×2 (08:46→21:11)
[2018-09-12] MEDS: GABAPENTIN 400 MG CAP PO ×3 (08:46→21:11)
[2018-09-12] MEDS: rOPINIRole 2MG TAB PO ×2 (08:46→21:11)
[2018-09-12] MEDS: LACTOBACILLUS ACIDOPHILUS CAP (BACID) PO (08:46)
[2018-09-12] MEDS: CLOPIDOGREL 75 MG TAB PO (08:46)
[2018-09-12] MEDS: PANTOPRAZOLE 40MG TAB (PROTONIX) PO (08:46)
[2018-09-12] MEDS: DULoxetine 30 MG CAP (CYMBALTA) PO (08:46)
[2018-09-12] MEDS: CALCIUM ACETATE 667 MG GELCAP PO ×3 (08:47→17:40)
[2018-09-12] MEDS: CALCIUM CARBONATE 500 MG CHEW U/D PO ×3 (08:47→17:40)
[2018-09-12] MEDS: METOPROLOL SUCC (TopROL XL) 50MG **XL** TAB PO ×2 (08:47→21:00)
[2018-09-12] MEDS: LIDOCAINE 5% (LIDODERM) PATCH TD (08:49)
[2018-09-12] MEDS: ANALGESIC BALM CRM 120 GM TOP ×3 (08:50→21:13)
[2018-09-12] MEDS: **VANCO AFTER HD** MISC XX (08:50)
[2018-09-12] MEDS: LOSARTAN 50 MG TAB PO (08:51)
[2018-09-12] MEDS: HEPARIN SOD (PORCINE) 5000 UNITS/ML VIAL SC ×2 (08:53→21:12)
[2018-09-12] MEDS: EUCERIN 120GM CREAM EXT (09:00)
[2018-09-12] MEDS: diazePAM 5 MG TAB PO (10:27)
[2018-09-12 11:53] LABS: BEDSIDE GLUCOSE 255 MG/DL (80-115)
[2018-09-12 16:58] LABS: BEDSIDE GLUCOSE 260 MG/DL (80-115)
[2018-09-12] MEDS: BACLOFEN 5MG PER 1/2 TABLET GT ×2 (17:39→21:11)
[2018-09-12 20:20] LABS: BEDSIDE GLUCOSE 288 MG/DL (80-115)
[2018-09-12] MEDS: **NOTE PATIENT COMMENT** MISC XX (21:00)
[2018-09-12] MEDS: SIMVASTATIN 20 MG TAB PO (21:11)
[2018-09-12] MEDS: SENNA 8.6 MG TAB (SENOKOT) PO (21:11)
[2018-09-13] MEDS: LEVOTHYROXINE 100MCG TABLET (0.1MG) PO (06:26)
[2018-09-13 06:59] LABS: HEMATOCRIT 32.6 % (36.0-47.0); HEMOGLOBIN 9.6 g/dl (12.0-15.5); MEAN CORPUSCULAR HEMOGLOBIN 28.7 pg (27.0-33.0); MEAN CORPUSCULAR HGB CONC 29.4 g/dl (32.0-36.5); MEAN CORPUSCULAR VOLUME 97.3 fl (80.0-96.0); PLATELET COUNT, AUTOMATED 139 10^3/uL (150-450); RED BLOOD COUNT 3.35 10^6/uL (4.00-5.40); RED CELL DISTRIBUTION WIDTH 18.9 % (11.5-14.5); WHITE BLOOD COUNT 11.8 10^3/uL (4.0-10.0)
[2018-09-13 07:16] LABS: ERYTHROCYTE SEDIMENTATION RATE 71 mm/hr (0-30)
[2018-09-13 07:29] LABS: ALBUMIN/GLOBULIN RATIO 0.44 (1.00-1.93); ALKALINE PHOSPHATASE 480 U/L (45-117); ALT/SGPT 51 U/L (12-78); ANION GAP 11 MEQ/L (8-16); AST/SGOT 28 U/L (7-37); BILIRUBIN,TOTAL 0.7 MG/DL (0.2-1.0); BLOOD UREA NITROGEN 57 MG/DL (7-18); CALCIUM LEVEL 8.2 MG/DL (8.8-10.2); CARBON DIOXIDE LEVEL 25 MEQ/L (21-32); CHLORIDE LEVEL 98 MEQ/L (98-107); CREATININE FOR GFR 6.21 MG/DL (0.55-1.30); GLOMERULAR FILTRATION RATE 7.1 (>45); GLUCOSE, FASTING 225 MG/DL (70-100); PHOSPHORUS LEVEL 2.9 MG/DL (2.5-4.9); POTASSIUM SERUM 4.5 MEQ/L (3.5-5.1); SODIUM LEVEL 134 MEQ/L (136-145); TOTAL PROTEIN 6.5 GM/DL (6.4-8.2)
[2018-09-13 07:36] LABS: BEDSIDE GLUCOSE 226 MG/DL (80-115)
[2018-09-13] MEDS ORDERED: NALOXONE INJ 0.4 MG/1 ML VIAL (J2310) As Ordered (08:01)
[2018-09-13] MEDS ORDERED: FLUMAZENIL 0.5 MG/5 ML VIAL IV (08:05)
[2018-09-13 08:20] LABS: ABG BASE EXCESS 0.1 (-2.0-2.0); ABG HCO3 24.9 MEQ/L (22.0-26.0); ABG O2 SATURATION 98.1 % (95.0-99.0); ABG PARTIAL PRESSURE CO2 41.1 mmHg (35.0-45.0); ABG PARTIAL PRESSURE O2 104.5 mmHg (75.0-100.0); ABG STANDARD HCO3 24.6 MEQ/L (22.0-26.0); ABG TOTAL CO2 26.2 MEQ/L (23.0-31.0); ABG pH (ARTERIAL) 7.401 UNITS (7.350-7.450)
[2018-09-13] MEDS ORDERED: rOPINIRole 1MG TAB PO (09:00)
[2018-09-13] MEDS ORDERED: GABAPENTIN 400 MG CAP PO (09:00)
== END 2018-09-13 10:00 | disposition short-term general hospital (02) | DRG 559 ==
LOC: M PM&R 11:15
PROVIDERS: Physical Medicine & Rehabilitation
PROC: 5A1D70Z Performance of Urinary Filtration, Intermittent, Less than 6 Hours Per Day (ICD-10-PCS; principal; 2018-09-11)
DX: Z47.81 Encounter for orthopedic aftercare following surgical amputation (principal); N18.6 End stage renal disease; M86.271 Subacute osteomyelitis, right ankle and foot; I13.2 Hypertensive heart and chronic kidney disease with heart failure and with stage 5 chronic kidney disease, or end stage renal disease; I50.30 Unspecified diastolic (congestive) heart failure; R18.8 Other ascites; N25.81 Secondary hyperparathyroidism of renal origin; F11.20 Opioid dependence, uncomplicated; E11.40 Type 2 diabetes mellitus with diabetic neuropathy, unspecified; I25.10 Atherosclerotic heart disease of native coronary artery without angina pectoris; E03.9 Hypothyroidism, unspecified; D63.1 Anemia in chronic kidney disease; E11.618 Type 2 diabetes mellitus with other diabetic arthropathy; Z95.2 Presence of prosthetic heart valve; K74.60 Unspecified cirrhosis of liver; Z79.899 Other long term (current) drug therapy; Z79.4 Long term (current) use of insulin; Z88.8 Allergy status to other drugs, medicaments and biological substances; G47.33 Obstructive sleep apnea (adult) (pediatric); F32.9 Major depressive disorder, single episode, unspecified; G25.81 Restless legs syndrome; E87.70 Fluid overload, unspecified; E78.5 Hyperlipidemia, unspecified; K21.9 Gastro-esophageal reflux disease without esophagitis; Z99.2 Dependence on renal dialysis

== ENCOUNTER 2018-09-13 09:50 | Inpatient (IN) | payer MEDICARE ==
[2018-09-13 11:10] LABS: CK-MB VALUE MASS < 1.0 NG/ML (<3.6); CPK CREATINE PHOSPHOKINASE 17 U/L (26-192); MB/CK RELATIVE INDEX 5.88 (< OR =4); TROPONIN I < 0.02 NG/ML (< 0.10)
[2018-09-13] MEDS: HEPARIN SOD (PORCINE) 5000 UNITS/ML VIAL SC ×2 (14:46→20:35)
[2018-09-13] MEDS ORDERED: GLUCAGON FOR INJ 1 MG VIAL (J1610) SC (16:00)
[2018-09-13] MEDS ORDERED: GLUCOSE 4 GM CHEW TABLET PO (16:00)
[2018-09-13] MEDS ORDERED: DEXTROSE 50% 50 ML SYRINGE IV (16:00)
[2018-09-13] MEDS: LOSARTAN 50 MG TAB PO (16:39)
[2018-09-13] MEDS: CLOPIDOGREL 75 MG TAB PO (16:40)
[2018-09-13 17:21] LABS: BEDSIDE GLUCOSE 121 MG/DL (80-115)
[2018-09-13 17:31] LABS: CPK CREATINE PHOSPHOKINASE 13 U/L (26-192); MB/CK RELATIVE INDEX 7.69 (< OR =4); TROPONIN I < 0.02 NG/ML (< 0.10)
[2018-09-13] MEDS: HEPARIN 1,000 UNITS/ML 10ML VIAL (FOR RADIOLOGY& DIALYSIS ONLY) IV (17:41)
[2018-09-13] MEDS: HumaLOG INSULIN (NovoLOG) PER UNIT SC (17:42)
[2018-09-13] MEDS: NITROGLYCERIN 2% OINT 1 GM *U/D* PKT TOP (18:00)
[2018-09-13] MEDS: ACETAMINOPHEN TAB 650MG DOSE (2X325MG) PO (19:44)
[2018-09-13] MEDS: GABAPENTIN 300 MG CAP PO (20:36)
[2018-09-13] MEDS: **VANCO AFTER HD** MISC XX (21:17)
[2018-09-13 23:56] LABS: BEDSIDE GLUCOSE 210 MG/DL (80-115)
[2018-09-14 00:28] LABS: CK-MB VALUE MASS < 1.0 NG/ML (<3.6); CPK CREATINE PHOSPHOKINASE 18 U/L (26-192); MB/CK RELATIVE INDEX 5.56 (< OR =4); TROPONIN I < 0.02 NG/ML (< 0.10)
[2018-09-14] MEDS: HumaLOG INSULIN (NovoLOG) PER UNIT SC ×5 (00:33→21:00)
[2018-09-14] MEDS: NITROGLYCERIN 2% OINT 1 GM *U/D* PKT TOP ×4 (00:35→17:39)
[2018-09-14 04:40] LABS: BASO # 0.1 10^3/uL (0.0-0.2); BASO % 0.5 % (0.0-1.0); EOS # 0.3 10^3/uL (0.0-0.50); EOS % 3.3 % (0.0-3.0); HEMATOCRIT 33.8 % (36.0-47.0); HEMOGLOBIN 9.9 g/dl (12.0-15.5); IMMATURE GRANULOCYTE % 0.6 % (0-3.0); LYMPH # 1.1 10^3/uL (1.5-4.5); LYMPH % 10.9 % (24.0-44.0); MEAN CORPUSCULAR HEMOGLOBIN 28.5 pg (27.0-33.0); MEAN CORPUSCULAR HGB CONC 29.3 g/dl (32.0-36.5); MEAN CORPUSCULAR VOLUME 97.4 fl (80.0-96.0); MONO % 10.2 % (0.0-5.0); NEUTROPHILS # 7.6 10^3/uL (1.8-7.7); NEUTROPHILS % 74.5 % (36.0-66.0); PLATELET COUNT, AUTOMATED 147 10^3/uL (150-450); RED BLOOD COUNT 3.47 10^6/uL (4.00-5.40); WHITE BLOOD COUNT 10.2 10^3/uL (4.0-10.0)
[2018-09-14 05:01] LABS: ERYTHROCYTE SEDIMENTATION RATE 65 mm/hr (0-30)
[2018-09-14 05:19] LABS: ALBUMIN 1.9 GM/DL (3.2-5.2); ALBUMIN/GLOBULIN RATIO 0.42 (1.00-1.93); ALKALINE PHOSPHATASE 402 U/L (45-117); ALT/SGPT 36 U/L (12-78); ANION GAP 6 MEQ/L (8-16); AST/SGOT 17 U/L (7-37); BILIRUBIN,TOTAL 0.6 MG/DL (0.2-1.0); BLOOD UREA NITROGEN 31 MG/DL (7-18); CARBON DIOXIDE LEVEL 31 MEQ/L (21-32); CHLORIDE LEVEL 100 MEQ/L (98-107); CK-MB VALUE MASS < 1.0 NG/ML (<3.6); CPK CREATINE PHOSPHOKINASE 8 U/L (26-192); GLOMERULAR FILTRATION RATE 11.5 (>45); GLUCOSE, FASTING 134 MG/DL (70-100); MAGNESIUM LEVEL 1.9 MG/DL (1.8-2.4); POTASSIUM SERUM 4.7 MEQ/L (3.5-5.1); SODIUM LEVEL 137 MEQ/L (136-145); TOTAL PROTEIN 6.4 GM/DL (6.4-8.2); TROPONIN I < 0.02 NG/ML (< 0.10)
[2018-09-14 06:06] LABS: BEDSIDE GLUCOSE 130 MG/DL (80-115)
[2018-09-14] MEDS: ACETAMINOPHEN TAB 650MG DOSE (2X325MG) PO ×2 (06:13→12:25)
[2018-09-14] MEDS: LEVOTHYROXINE 100MCG TABLET (0.1MG) PO (06:13)
[2018-09-14] MEDS: HEPARIN SOD (PORCINE) 5000 UNITS/ML VIAL SC ×3 (06:13→20:59)
[2018-09-14 07:55] LABS: AMMONIA 24 uMOL/L (<32)
[2018-09-14 08:35] LABS: ABG BASE EXCESS 4.4 (-2.0-2.0); ABG HCO3 29.7 MEQ/L (22.0-26.0); ABG O2 SATURATION 95.3 % (95.0-99.0); ABG PARTIAL PRESSURE CO2 47.9 mmHg (35.0-45.0); ABG PARTIAL PRESSURE O2 75.2 mmHg (75.0-100.0); ABG STANDARD HCO3 28.4 MEQ/L (22.0-26.0); ABG TOTAL CO2 31.2 MEQ/L (23.0-31.0); ABG pH (ARTERIAL) 7.411 UNITS (7.350-7.450)
[2018-09-14] MEDS: LOSARTAN 50 MG TAB PO (08:44)
[2018-09-14] MEDS: CALCIUM ACETATE 667 MG GELCAP PO ×3 (08:44→17:36)
[2018-09-14] MEDS: CLOPIDOGREL 75 MG TAB PO (08:44)
[2018-09-14] MEDS: CALCIUM CARBONATE 500 MG CHEW U/D PO ×3 (08:44→17:36)
[2018-09-14 12:05] LABS: BEDSIDE GLUCOSE 306 MG/DL (80-115)
[2018-09-14 12:50] LABS: CK-MB VALUE MASS < 1.0 NG/ML (<3.6); CPK CREATINE PHOSPHOKINASE 19 U/L (26-192); MB/CK RELATIVE INDEX 5.26 (< OR =4); TROPONIN I < 0.02 NG/ML (< 0.10)
[2018-09-14] MEDS: **VANCO AFTER HD** MISC XX (16:00)
[2018-09-14 17:29] LABS: BEDSIDE GLUCOSE 389 MG/DL (80-115)
[2018-09-14 20:10] LABS: BEDSIDE GLUCOSE 325 MG/DL (80-115)
[2018-09-14] MEDS: GABAPENTIN 100 MG CAP PO (20:59)
[2018-09-14 21:07] LABS: URIC ACID 4.7 MG/DL (2.6-6.0)
[2018-09-15] MEDS: LEVOTHYROXINE 100MCG TABLET (0.1MG) PO (06:04)
[2018-09-15] MEDS: LOSARTAN 50 MG TAB PO (06:04)
[2018-09-15] MEDS: GABAPENTIN 100 MG CAP PO ×2 (06:04→20:53)
[2018-09-15] MEDS: CLOPIDOGREL 75 MG TAB PO (06:04)
[2018-09-15] MEDS: HEPARIN SOD (PORCINE) 5000 UNITS/ML VIAL SC ×3 (06:05→20:53)
[2018-09-15] MEDS: NITROGLYCERIN 2% OINT 1 GM *U/D* PKT TOP ×4 (06:05→17:27)
[2018-09-15 06:40] LABS: BASO % 0.4 % (0.0-1.0); EOS # 0.3 10^3/uL (0.0-0.50); EOS % 4.5 % (0.0-3.0); HEMATOCRIT 34.3 % (36.0-47.0); HEMOGLOBIN 10.1 g/dl (12.0-15.5); IMMATURE GRANULOCYTE % 0.8 % (0-3.0); LYMPH # 1.1 10^3/uL (1.5-4.5); LYMPH % 14.4 % (24.0-44.0); MEAN CORPUSCULAR HEMOGLOBIN 28.1 pg (27.0-33.0); MEAN CORPUSCULAR HGB CONC 29.4 g/dl (32.0-36.5); MEAN CORPUSCULAR VOLUME 95.3 fl (80.0-96.0); MONO # 0.8 10^3/uL (0.0-0.8); MONO % 10.4 % (0.0-5.0); NEUTROPHILS # 5.2 10^3/uL (1.8-7.7); NEUTROPHILS % 69.5 % (36.0-66.0); PLATELET COUNT, AUTOMATED 164 10^3/uL (150-450); RED CELL DISTRIBUTION WIDTH 18.4 % (11.5-14.5); WHITE BLOOD COUNT 7.4 10^3/uL (4.0-10.0)
[2018-09-15 07:07] LABS: ALBUMIN 1.9 GM/DL (3.2-5.2); ALKALINE PHOSPHATASE 460 U/L (45-117); ALT/SGPT 31 U/L (12-78); ANION GAP 8 MEQ/L (8-16); AST/SGOT 19 U/L (7-37); BILIRUBIN,TOTAL 0.6 MG/DL (0.2-1.0); BLOOD UREA NITROGEN 60 MG/DL (7-18); CALCIUM LEVEL 7.6 MG/DL (8.8-10.2); CARBON DIOXIDE LEVEL 28 MEQ/L (21-32); CHLORIDE LEVEL 99 MEQ/L (98-107); CREATININE FOR GFR 6.19 MG/DL (0.55-1.30); ERYTHROCYTE SEDIMENTATION RATE 91 mm/hr (0-30); GLOMERULAR FILTRATION RATE 7.1 (>45); GLUCOSE, FASTING 221 MG/DL (70-100); MAGNESIUM LEVEL 2.2 MG/DL (1.8-2.4); POTASSIUM SERUM 4.9 MEQ/L (3.5-5.1); SODIUM LEVEL 135 MEQ/L (136-145); TOTAL PROTEIN 6.6 GM/DL (6.4-8.2)
[2018-09-15] MEDS: CALCIUM CARBONATE 500 MG CHEW U/D PO ×3 (07:41→17:26)
[2018-09-15] MEDS: HumaLOG INSULIN (NovoLOG) PER UNIT SC ×4 (07:41→20:54)
[2018-09-15] MEDS: CALCIUM ACETATE 667 MG GELCAP PO ×3 (07:41→17:27)
[2018-09-15] MEDS: ACETAMINOPHEN TAB 650MG DOSE (2X325MG) PO ×2 (11:01→15:59)
[2018-09-15] MEDS: HEPARIN 1,000 UNITS/ML 10ML VIAL (FOR RADIOLOGY& DIALYSIS ONLY) IV (11:15)
[2018-09-15 11:16] LABS: VANCOMYCIN RANDOM 21.5 UG/ML
[2018-09-15] MEDS ORDERED: DARBEPOETIN 100 MCG/0.5 ML *DIALYSIS* SYRINGE (J0882) IV (12:00)
[2018-09-15 14:35] LABS: BEDSIDE GLUCOSE 194 MG/DL (80-115)
[2018-09-15] MEDS: predniSONE 20 MG TAB PO (14:38)
[2018-09-15] MEDS: **VANCO AFTER HD** MISC XX (14:38)
[2018-09-15 16:40] LABS: BEDSIDE GLUCOSE 336 MG/DL (80-115)
[2018-09-15] MEDS: VANCOMYCIN HCL 750 MG, VIAL MATE ADAPTER 1 EACH in D5W 250 ML IV (18:25)
[2018-09-15 20:44] LABS: BEDSIDE GLUCOSE 440 MG/DL (80-115)
[2018-09-16] MEDS: NITROGLYCERIN 2% OINT 1 GM *U/D* PKT TOP ×5 (00:45→23:21)
[2018-09-16] MEDS: HEPARIN SOD (PORCINE) 5000 UNITS/ML VIAL SC ×3 (05:57→21:31)
[2018-09-16] MEDS: LEVOTHYROXINE 100MCG TABLET (0.1MG) PO (05:57)
[2018-09-16 06:31] LABS: BASO % 0.2 % (0.0-1.0); EOS % 0.5 % (0.0-3.0); HEMOGLOBIN 10.5 g/dl (12.0-15.5); IMMATURE GRANULOCYTE % 0.8 % (0-3.0); LYMPH # 0.8 10^3/uL (1.5-4.5); LYMPH % 9.3 % (24.0-44.0); MEAN CORPUSCULAR HEMOGLOBIN 28.2 pg (27.0-33.0); MEAN CORPUSCULAR VOLUME 94.1 fl (80.0-96.0); MONO # 0.9 10^3/uL (0.0-0.8); MONO % 10.3 % (0.0-5.0); NEUTROPHILS # 6.7 10^3/uL (1.8-7.7); NEUTROPHILS % 78.9 % (36.0-66.0); PLATELET COUNT, AUTOMATED 167 10^3/uL (150-450); RED BLOOD COUNT 3.72 10^6/uL (4.00-5.40); RED CELL DISTRIBUTION WIDTH 18.1 % (11.5-14.5); WHITE BLOOD COUNT 8.5 10^3/uL (4.0-10.0)
[2018-09-16 07:10] LABS: ERYTHROCYTE SEDIMENTATION RATE 66 mm/hr (0-30)
[2018-09-16 07:11] LABS: ALBUMIN 2.2 GM/DL (3.2-5.2); ALBUMIN/GLOBULIN RATIO 0.45 (1.00-1.93); ALKALINE PHOSPHATASE 561 U/L (45-117); ALT/SGPT 33 U/L (12-78); ANION GAP 9 MEQ/L (8-16); AST/SGOT 27 U/L (7-37); BILIRUBIN,TOTAL 0.6 MG/DL (0.2-1.0); BLOOD UREA NITROGEN 45 MG/DL (7-18); CALCIUM LEVEL 8.1 MG/DL (8.8-10.2); CARBON DIOXIDE LEVEL 28 MEQ/L (21-32); CHLORIDE LEVEL 95 MEQ/L (98-107); GLOMERULAR FILTRATION RATE 10.9 (>45); GLUCOSE, FASTING 490 MG/DL (70-100); MAGNESIUM LEVEL 2.2 MG/DL (1.8-2.4); POTASSIUM SERUM 4.4 MEQ/L (3.5-5.1); SODIUM LEVEL 132 MEQ/L (136-145); TOTAL PROTEIN 7.1 GM/DL (6.4-8.2)
[2018-09-16] MEDS: HumaLOG INSULIN (NovoLOG) PER UNIT SC ×4 (08:01→21:31)
[2018-09-16] MEDS: CALCIUM CARBONATE 500 MG CHEW U/D PO ×3 (08:02→18:04)
[2018-09-16] MEDS: CLOPIDOGREL 75 MG TAB PO (08:07)
[2018-09-16] MEDS: GABAPENTIN 100 MG CAP PO ×2 (08:07→21:30)
[2018-09-16] MEDS: LOSARTAN 50 MG TAB PO (08:07)
[2018-09-16] MEDS: CALCIUM ACETATE 667 MG GELCAP PO ×3 (08:07→18:04)
[2018-09-16] MEDS: predniSONE 20 MG TAB PO ×2 (08:07→11:07)
[2018-09-16 10:40] LABS: BEDSIDE GLUCOSE 370 MG/DL (80-115)
[2018-09-16 11:40] LABS: BEDSIDE GLUCOSE 345 MG/DL (80-115)
[2018-09-16] MEDS: LEVEMIR (INSULIN DETEMIR) 1 UNITS/0.01ML SC ×2 (12:41→21:31)
[2018-09-16] MEDS: ACETAMINOPHEN TAB 650MG DOSE (2X325MG) PO (15:19)
[2018-09-16] MEDS: **VANCO AFTER HD** MISC XX (16:00)
[2018-09-16 16:46] LABS: BEDSIDE GLUCOSE 418 MG/DL (80-115)
[2018-09-16 20:21] LABS: BEDSIDE GLUCOSE 471 MG/DL (80-115)
[2018-09-17] MEDS: LOSARTAN 50 MG TAB PO (05:31)
[2018-09-17] MEDS: LEVOTHYROXINE 100MCG TABLET (0.1MG) PO (05:31)
[2018-09-17] MEDS: HEPARIN SOD (PORCINE) 5000 UNITS/ML VIAL SC ×3 (05:32→21:10)
[2018-09-17] MEDS: NITROGLYCERIN 2% OINT 1 GM *U/D* PKT TOP ×3 (05:32→17:40)
[2018-09-17 06:22] LABS: BASO % 0.2 % (0.0-1.0); EOS % 0.5 % (0.0-3.0); HEMATOCRIT 33.2 % (36.0-47.0); IMMATURE GRANULOCYTE % 1.5 % (0-3.0); LYMPH # 1.1 10^3/uL (1.5-4.5); LYMPH % 12.4 % (24.0-44.0); MEAN CORPUSCULAR HEMOGLOBIN 27.6 pg (27.0-33.0); MEAN CORPUSCULAR HGB CONC 30.1 g/dl (32.0-36.5); MEAN CORPUSCULAR VOLUME 91.7 fl (80.0-96.0); MONO # 0.8 10^3/uL (0.0-0.8); MONO % 9.2 % (0.0-5.0); NEUTROPHILS # 6.8 10^3/uL (1.8-7.7); NEUTROPHILS % 76.2 % (36.0-66.0); PLATELET COUNT, AUTOMATED 178 10^3/uL (150-450); RED BLOOD COUNT 3.62 10^6/uL (4.00-5.40); RED CELL DISTRIBUTION WIDTH 17.6 % (11.5-14.5); WHITE BLOOD COUNT 8.9 10^3/uL (4.0-10.0)
[2018-09-17 06:53] LABS: ALBUMIN 2.2 GM/DL (3.2-5.2); ALBUMIN/GLOBULIN RATIO 0.48 (1.00-1.93); ALKALINE PHOSPHATASE 492 U/L (45-117); ALT/SGPT 28 U/L (12-78); ANION GAP 10 MEQ/L (8-16); AST/SGOT 17 U/L (7-37); BILIRUBIN,TOTAL 0.5 MG/DL (0.2-1.0); BLOOD UREA NITROGEN 80 MG/DL (7-18); C REACTIVE PROTEIN QUANTITATIV 7.25 MG/DL (0.00-0.30); CALCIUM LEVEL 8.2 MG/DL (8.8-10.2); CARBON DIOXIDE LEVEL 26 MEQ/L (21-32); CHLORIDE LEVEL 95 MEQ/L (98-107); ERYTHROCYTE SEDIMENTATION RATE 65 mm/hr (0-30); GLUCOSE, FASTING 410 MG/DL (70-100); MAGNESIUM LEVEL 2.1 MG/DL (1.8-2.4); POTASSIUM SERUM 4.5 MEQ/L (3.5-5.1); SODIUM LEVEL 131 MEQ/L (136-145); TOTAL PROTEIN 6.8 GM/DL (6.4-8.2)
[2018-09-17] MEDS: CLOPIDOGREL 75 MG TAB PO (07:54)
[2018-09-17] MEDS: HumaLOG INSULIN (NovoLOG) PER UNIT SC ×4 (07:54→21:09)
[2018-09-17] MEDS: GABAPENTIN 100 MG CAP PO ×2 (07:54→21:06)
[2018-09-17] MEDS: CALCIUM CARBONATE 500 MG CHEW U/D PO ×3 (07:54→17:36)
[2018-09-17] MEDS: CALCIUM ACETATE 667 MG GELCAP PO ×3 (07:55→17:36)
[2018-09-17] MEDS: LEVEMIR (INSULIN DETEMIR) 1 UNITS/0.01ML SC ×2 (08:22→21:08)
[2018-09-17] MEDS: cloNIDine 0.1 MG TAB PO (08:22)
[2018-09-17] MEDS: METOPROLOL TART 50 MG TAB PO ×2 (10:46→21:06)
[2018-09-17] MEDS: predniSONE 20 MG TAB PO ×2 (10:46)
[2018-09-17 11:44] LABS: BEDSIDE GLUCOSE 299 MG/DL (80-115)
[2018-09-17] MEDS: **VANCO AFTER HD** MISC XX (15:41)
[2018-09-17 16:47] LABS: BEDSIDE GLUCOSE 314 MG/DL (80-115)
[2018-09-17 20:22] LABS: BEDSIDE GLUCOSE 372 MG/DL (80-115)
[2018-09-18] MEDS: NITROGLYCERIN 2% OINT 1 GM *U/D* PKT TOP ×5 (00:21→23:40)
[2018-09-18] MEDS: cloNIDine 0.1 MG TAB PO (00:21)
[2018-09-18] MEDS: HEPARIN SOD (PORCINE) 5000 UNITS/ML VIAL SC ×3 (06:07→21:23)
[2018-09-18] MEDS: LEVOTHYROXINE 100MCG TABLET (0.1MG) PO (06:07)
[2018-09-18] MEDS: CALCIUM ACETATE 667 MG GELCAP PO ×3 (06:08→18:10)
[2018-09-18] MEDS: CALCIUM CARBONATE 500 MG CHEW U/D PO ×3 (06:08→18:10)
[2018-09-18] MEDS: METOPROLOL TART 50 MG TAB PO ×2 (06:09→21:24)
[2018-09-18] MEDS: LOSARTAN 50 MG TAB PO (06:09)
[2018-09-18] MEDS: predniSONE 20 MG TAB PO (06:09)
[2018-09-18] MEDS: ACETAMINOPHEN TAB 650MG DOSE (2X325MG) PO (06:10)
[2018-09-18] MEDS: GABAPENTIN 100 MG CAP PO ×2 (06:10→21:22)
[2018-09-18] MEDS: CLOPIDOGREL 75 MG TAB PO (06:10)
[2018-09-18 06:27] LABS: BASO % 0.3 % (0.0-1.0); EOS % 0.5 % (0.0-3.0); HEMATOCRIT 33.9 % (36.0-47.0); IMMATURE GRANULOCYTE % 2.8 % (0-3.0); LYMPH # 1.2 10^3/uL (1.5-4.5); LYMPH % 14.4 % (24.0-44.0); MEAN CORPUSCULAR HEMOGLOBIN 27.7 pg (27.0-33.0); MEAN CORPUSCULAR HGB CONC 29.5 g/dl (32.0-36.5); MEAN CORPUSCULAR VOLUME 93.9 fl (80.0-96.0); MONO # 0.8 10^3/uL (0.0-0.8); MONO % 10.1 % (0.0-5.0); NEUTROPHILS # 5.8 10^3/uL (1.8-7.7); NEUTROPHILS % 71.9 % (36.0-66.0); PLATELET COUNT, AUTOMATED 190 10^3/uL (150-450); RED BLOOD COUNT 3.61 10^6/uL (4.00-5.40); RED CELL DISTRIBUTION WIDTH 18.1 % (11.5-14.5)
[2018-09-18 06:59] LABS: ALBUMIN 2.3 GM/DL (3.2-5.2); ALBUMIN/GLOBULIN RATIO 0.52 (1.00-1.93); ALKALINE PHOSPHATASE 468 U/L (45-117); ALT/SGPT 32 U/L (12-78); ANION GAP 13 MEQ/L (8-16); AST/SGOT 22 U/L (7-37); BILIRUBIN,TOTAL 0.5 MG/DL (0.2-1.0); BLOOD UREA NITROGEN 113 MG/DL (7-18); CALCIUM LEVEL 8.9 MG/DL (8.8-10.2); CARBON DIOXIDE LEVEL 24 MEQ/L (21-32); CHLORIDE LEVEL 96 MEQ/L (98-107); CREATININE FOR GFR 7.03 MG/DL (0.55-1.30); GLOMERULAR FILTRATION RATE 6.2 (>45); GLUCOSE, FASTING 430 MG/DL (70-100); MAGNESIUM LEVEL 2.6 MG/DL (1.8-2.4); POTASSIUM SERUM 4.9 MEQ/L (3.5-5.1); SODIUM LEVEL 133 MEQ/L (136-145); TOTAL PROTEIN 6.7 GM/DL (6.4-8.2); VANCOMYCIN RANDOM 19.3 UG/ML
[2018-09-18] MEDS: HumaLOG INSULIN (NovoLOG) PER UNIT SC ×4 (08:24→21:24)
[2018-09-18] MEDS: HEPARIN 1,000 UNITS/ML 10ML VIAL (FOR RADIOLOGY& DIALYSIS ONLY) IV (13:00)
[2018-09-18 14:11] LABS: ANTINUCLEAR ANTIBODIES DIRECT Negative (Negative)
[2018-09-18 14:31] LABS: BEDSIDE GLUCOSE 204 MG/DL (80-115)
[2018-09-18] MEDS: **VANCO AFTER HD** MISC XX (16:00)
[2018-09-18 16:21] LABS: C REACTIVE PROTEIN QUANTITATIV 4.72 MG/DL (0.00-0.30)
[2018-09-18 16:50] LABS: BEDSIDE GLUCOSE 353 MG/DL (80-115)
[2018-09-18] MEDS: VANCOMYCIN HCL 750 MG, VIAL MATE ADAPTER 1 EACH in D5W 250 ML IV (18:08)
[2018-09-18 20:39] LABS: BEDSIDE GLUCOSE 259 MG/DL (80-115)
[2018-09-18] MEDS: LEVEMIR (INSULIN DETEMIR) 1 UNITS/0.01ML SC (21:23)
[2018-09-18] MEDS: RAMELTEON 8 MG TAB (ROZEREM) PO (23:40)
[2018-09-19] MEDS: LEVOTHYROXINE 100MCG TABLET (0.1MG) PO (05:59)
[2018-09-19] MEDS: HEPARIN SOD (PORCINE) 5000 UNITS/ML VIAL SC ×3 (05:59→21:05)
[2018-09-19] MEDS: NITROGLYCERIN 2% OINT 1 GM *U/D* PKT TOP ×3 (06:00→18:10)
[2018-09-19 06:15] LABS: BASO # 0.1 10^3/uL (0.0-0.2); BASO % 0.7 % (0.0-1.0); EOS # 0.2 10^3/uL (0.0-0.50); HEMATOCRIT 35.6 % (36.0-47.0); HEMOGLOBIN 10.4 g/dl (12.0-15.5); IMMATURE GRANULOCYTE % 4.1 % (0-3.0); LYMPH # 1.4 10^3/uL (1.5-4.5); LYMPH % 18.8 % (24.0-44.0); MEAN CORPUSCULAR HEMOGLOBIN 27.7 pg (27.0-33.0); MEAN CORPUSCULAR HGB CONC 29.2 g/dl (32.0-36.5); MEAN CORPUSCULAR VOLUME 94.9 fl (80.0-96.0); MONO # 0.8 10^3/uL (0.0-0.8); MONO % 10.9 % (0.0-5.0); NEUTROPHILS # 4.7 10^3/uL (1.8-7.7); NEUTROPHILS % 62.5 % (36.0-66.0); PLATELET COUNT, AUTOMATED 189 10^3/uL (150-450); RED BLOOD COUNT 3.75 10^6/uL (4.00-5.40); RED CELL DISTRIBUTION WIDTH 18.6 % (11.5-14.5); WHITE BLOOD COUNT 7.6 10^3/uL (4.0-10.0)
[2018-09-19 06:37] LABS: ALBUMIN 2.3 GM/DL (3.2-5.2); ALBUMIN/GLOBULIN RATIO 0.56 (1.00-1.93); ALKALINE PHOSPHATASE 453 U/L (45-117); ALT/SGPT 37 U/L (12-78); ANION GAP 8 MEQ/L (8-16); AST/SGOT 34 U/L (7-37); BILIRUBIN,TOTAL 0.5 MG/DL (0.2-1.0); BLOOD UREA NITROGEN 66 MG/DL (7-18); CALCIUM LEVEL 8.3 MG/DL (8.8-10.2); CARBON DIOXIDE LEVEL 33 MEQ/L (21-32); CHLORIDE LEVEL 99 MEQ/L (98-107); GLOMERULAR FILTRATION RATE 10.1 (>45); GLUCOSE, FASTING 213 MG/DL (70-100); MAGNESIUM LEVEL 2.2 MG/DL (1.8-2.4); SODIUM LEVEL 140 MEQ/L (136-145); TOTAL PROTEIN 6.4 GM/DL (6.4-8.2)
[2018-09-19] MEDS: METOPROLOL TART 50 MG TAB PO ×2 (08:09→21:06)
[2018-09-19] MEDS: predniSONE 20 MG TAB PO (08:15)
[2018-09-19] MEDS: GABAPENTIN 100 MG CAP PO ×2 (08:15→21:06)
[2018-09-19] MEDS: CALCIUM ACETATE 667 MG GELCAP PO ×3 (08:15→18:06)
[2018-09-19] MEDS: CLOPIDOGREL 75 MG TAB PO (08:15)
[2018-09-19] MEDS: CALCIUM CARBONATE 500 MG CHEW U/D PO ×3 (08:15→18:06)
[2018-09-19] MEDS: HumaLOG INSULIN (NovoLOG) PER UNIT SC ×4 (08:16→21:08)
[2018-09-19] MEDS: LOSARTAN 50 MG TAB PO (08:17)
[2018-09-19 12:04] LABS: BEDSIDE GLUCOSE 203 MG/DL (80-115)
[2018-09-19] MEDS: ACETAMINOPHEN TAB 650MG DOSE (2X325MG) PO (14:20)
[2018-09-19] MEDS: **VANCO AFTER HD** MISC XX (16:00)
[2018-09-19 16:47] LABS: BEDSIDE GLUCOSE 379 MG/DL (80-115)
[2018-09-19 18:31] LABS: C REACTIVE PROTEIN QUANTITATIV 2.86 MG/DL (0.00-0.30)
[2018-09-19 20:26] LABS: BEDSIDE GLUCOSE 387 MG/DL (80-115)
[2018-09-19] MEDS: RAMELTEON 8 MG TAB (ROZEREM) PO (21:05)
[2018-09-19] MEDS: LEVEMIR (INSULIN DETEMIR) 1 UNITS/0.01ML SC (21:06)
[2018-09-20] MEDS: NITROGLYCERIN 2% OINT 1 GM *U/D* PKT TOP ×5 (00:21→23:47)
[2018-09-20] MEDS: LEVOTHYROXINE 100MCG TABLET (0.1MG) PO (05:34)
[2018-09-20] MEDS: HEPARIN SOD (PORCINE) 5000 UNITS/ML VIAL SC ×3 (05:34→23:47)
[2018-09-20 06:09] LABS: HEMATOCRIT 36.2 % (36.0-47.0); HEMOGLOBIN 10.7 g/dl (12.0-15.5); MEAN CORPUSCULAR HEMOGLOBIN 27.9 pg (27.0-33.0); MEAN CORPUSCULAR HGB CONC 29.6 g/dl (32.0-36.5); MEAN CORPUSCULAR VOLUME 94.5 fl (80.0-96.0); PLATELET COUNT, AUTOMATED 192 10^3/uL (150-450); RED BLOOD COUNT 3.83 10^6/uL (4.00-5.40); RED CELL DISTRIBUTION WIDTH 18.7 % (11.5-14.5); WHITE BLOOD COUNT 7.3 10^3/uL (4.0-10.0)
[2018-09-20 06:14] LABS: ADD MANUAL DIFFER YES; DIFF SLIDE NUMBER 3; POS COUNT POS FLAG; POSITIVE MORPH POS FLAG
[2018-09-20 06:29] LABS: ANISOCYTOSIS 2+; BANDS 1 % (< 11); EOSINOPHILS 5 % (0-5); HYPOCHROMASIA 1+; LYMPHOCYTES 15 % (16-52); MONOCYTES 7 % (0-8); NEUTROPHILS 72 % (35-75); PLATELET ESTIMATE NORMAL (NORMAL)
[2018-09-20] MEDS: CALCIUM CARBONATE 500 MG CHEW U/D PO ×3 (06:36→17:50)
[2018-09-20] MEDS: GABAPENTIN 100 MG CAP PO ×2 (06:36→20:46)
[2018-09-20] MEDS: CLOPIDOGREL 75 MG TAB PO (06:36)
[2018-09-20] MEDS: CALCIUM ACETATE 667 MG GELCAP PO ×3 (06:37→17:51)
[2018-09-20] MEDS: METOPROLOL TART 50 MG TAB PO ×2 (06:37→20:46)
[2018-09-20] MEDS: LOSARTAN 50 MG TAB PO (06:37)
[2018-09-20 06:41] LABS: ALBUMIN 2.2 GM/DL (3.2-5.2); ALBUMIN/GLOBULIN RATIO 0.54 (1.00-1.93); ALKALINE PHOSPHATASE 435 U/L (45-117); ALT/SGPT 38 U/L (12-78); ANION GAP 9 MEQ/L (8-16); AST/SGOT 27 U/L (7-37); BILIRUBIN,TOTAL 0.5 MG/DL (0.2-1.0); BLOOD UREA NITROGEN 87 MG/DL (7-18); CALCIUM LEVEL 8.2 MG/DL (8.8-10.2); CARBON DIOXIDE LEVEL 29 MEQ/L (21-32); CHLORIDE LEVEL 99 MEQ/L (98-107); GLOMERULAR FILTRATION RATE 7.7 (>45); GLUCOSE, FASTING 209 MG/DL (70-100); MAGNESIUM LEVEL 2.4 MG/DL (1.8-2.4); POTASSIUM SERUM 4.1 MEQ/L (3.5-5.1); SODIUM LEVEL 137 MEQ/L (136-145); TOTAL PROTEIN 6.3 GM/DL (6.4-8.2); VANCOMYCIN RANDOM 21.8 UG/ML
[2018-09-20] MEDS: HumaLOG INSULIN (NovoLOG) PER UNIT SC ×4 (08:06→20:48)
[2018-09-20] MEDS: HEPARIN 1,000 UNITS/ML 10ML VIAL (FOR RADIOLOGY& DIALYSIS ONLY) IV (11:15)
[2018-09-20] MEDS: ACETAMINOPHEN TAB 650MG DOSE (2X325MG) PO ×2 (14:41→18:45)
[2018-09-20] MEDS: **VANCO AFTER HD** MISC XX (16:00)
[2018-09-20] MEDS: VANCOMYCIN HCL 750 MG, VIAL MATE ADAPTER 1 EACH in D5W 250 ML IV (16:35)
[2018-09-20 16:39] LABS: BEDSIDE GLUCOSE 277 MG/DL (80-115)
[2018-09-20 20:43] LABS: BEDSIDE GLUCOSE 304 MG/DL (80-115)
[2018-09-20] MEDS: LEVEMIR (INSULIN DETEMIR) 1 UNITS/0.01ML SC (20:47)
[2018-09-21] MEDS: HEPARIN SOD (PORCINE) 5000 UNITS/ML VIAL SC (05:55)
[2018-09-21] MEDS: LEVOTHYROXINE 100MCG TABLET (0.1MG) PO (05:56)
[2018-09-21] MEDS: NITROGLYCERIN 2% OINT 1 GM *U/D* PKT TOP (05:56)
[2018-09-21 07:34] LABS: BEDSIDE GLUCOSE 170 MG/DL (80-115)
[2018-09-21] MEDS: CLOPIDOGREL 75 MG TAB PO (08:14)
[2018-09-21] MEDS: GABAPENTIN 100 MG CAP PO (08:14)
[2018-09-21] MEDS: ACETAMINOPHEN TAB 650MG DOSE (2X325MG) PO (08:14)
[2018-09-21] MEDS: CALCIUM ACETATE 667 MG GELCAP PO (08:14)
[2018-09-21] MEDS: CALCIUM CARBONATE 500 MG CHEW U/D PO (08:14)
[2018-09-21] MEDS: LOSARTAN 50 MG TAB PO (08:17)
[2018-09-21] MEDS: METOPROLOL TART 50 MG TAB PO (08:17)
[2018-09-21] MEDS: HumaLOG INSULIN (NovoLOG) PER UNIT SC (08:17)
[2018-09-21] MEDS ORDERED: VANCOMYCIN HCL 750 MG, VIAL MATE ADAPTER 1 EACH in D5W 250 ML IV (16:00)
== END 2018-09-21 11:41 | disposition home health service (06) | DRG 70 ==
LOC: M PCU 09:50 → M MSPAV 09-14 18:21 → M ICU 11:04 → M MSPAV 09-14 21:10
PROC: 5A1D70Z Performance of Urinary Filtration, Intermittent, Less than 6 Hours Per Day (ICD-10-PCS; principal; 2018-09-18)
DX: G93.41 Metabolic encephalopathy (principal); N18.6 End stage renal disease; I50.32 Chronic diastolic (congestive) heart failure; N25.81 Secondary hyperparathyroidism of renal origin; I13.2 Hypertensive heart and chronic kidney disease with heart failure and with stage 5 chronic kidney disease, or end stage renal disease; L03.115 Cellulitis of right lower limb; M10.9 Gout, unspecified; E11.40 Type 2 diabetes mellitus with diabetic neuropathy, unspecified; I25.10 Atherosclerotic heart disease of native coronary artery without angina pectoris; F32.9 Major depressive disorder, single episode, unspecified; K21.9 Gastro-esophageal reflux disease without esophagitis; G47.33 Obstructive sleep apnea (adult) (pediatric); G25.81 Restless legs syndrome; E03.9 Hypothyroidism, unspecified; D63.1 Anemia in chronic kidney disease; E11.618 Type 2 diabetes mellitus with other diabetic arthropathy; K74.60 Unspecified cirrhosis of liver; E78.5 Hyperlipidemia, unspecified; Z79.899 Other long term (current) drug therapy; Z79.4 Long term (current) use of insulin; Z88.8 Allergy status to other drugs, medicaments and biological substances; Z95.2 Presence of prosthetic heart valve; M13.0 Polyarthritis, unspecified; B95.62 Methicillin resistant Staphylococcus aureus infection as the cause of diseases classified elsewhere; I00 Rheumatic fever without heart involvement

== ENCOUNTER 2018-11-06 05:31 | Emergency (ER) | payer MEDICARE ==
[2018-11-06] MEDS: ADACEL/BOOSTRIX VACCINE (DIPHTH/PERTUSS/ACELL/TETANUS)0.5ML SYR (90715) IM (06:06)
== END 2018-11-06 06:41 | disposition home or self-care (01) ==
LOC: M ED 05:31
DX: S81.011A Laceration without foreign body, right knee, initial encounter (principal); S80.01XA Contusion of right knee, initial encounter; W22.09XA Striking against other stationary object, initial encounter; Y92.009 Unspecified place in unspecified non-institutional (private) residence as the place of occurrence of the external cause; I50.9 Heart failure, unspecified; I13.2 Hypertensive heart and chronic kidney disease with heart failure and with stage 5 chronic kidney disease, or end stage renal disease; E11.9 Type 2 diabetes mellitus without complications; N18.6 End stage renal disease; M14.672 Charcot's joint, left ankle and foot; G47.33 Obstructive sleep apnea (adult) (pediatric); Z88.8 Allergy status to other drugs, medicaments and biological substances; Z88.1 Allergy status to other antibiotic agents; Z79.01 Long term (current) use of anticoagulants
CPT/HCPCS: 90715

== ENCOUNTER 2019-01-05 20:02 | Emergency (ER) | payer MEDICARE ==
[~2019-01-05] VITALS: Ht 157.5 cm; Wt 90.9 kg
[~2019-01-05 20:02] MED LIST changes: +/ESCI20TA PO; +/PANT40TA PO; +/ROPI1TA PO; +ACET500T15 PO; +ALPR0.25 PO; +AMIT50TA4 PO; +AMLO5TAB6 PO; +ASPI1TAB PO; +ATRO1OPD PO; +Acetaminophen Tab PO; +BACL10TA2 PO; +CALC0.5C6 PO; +CALC1CAP PO; +CALC1CAP31 PO; +CALC1TAB97 PO; +CALC667T PO; +CALCTAB68 PO; +CALCTAB74 PO; +CEPH500C PO; +CHOL4PW PO; +CIPR-249 PO; +CLEO300C2 PO; +CLIN150C14 PO; +CLON-412 PO; +CLON0.2T PO; +CLOP75TA2 PO; +COLA50CA3 PO; +CYCL10TA PO; +CYMB1CAP5 PO; +DARB100SYR IV; +DEMA20TA6 PO; +DOXY100T2 PO; +DRIS50003 PO; +DULO1CAP2 PO; +DULO30CA PO; +ENAL20TA PO; +EUCE12CR TOP; +EUCECRE3 TOP; +FERR1TAB8 PO; +GABA-1171 PO; +GABA-843; +GABA-843 PO; +HUMA100I3 SC; +HUMA100I5 SQ; +HYDR-3363 PO; +HYDR-3713; +HYDR-3716 PO; +HYDR-3910 PO; +HYDR-3911 PO; +HYDR100T PO; +HYDR25TA PO; +INSUDET SC; +INSUHUMDS SC; +INSULADS INJ; +INSULADS SC; +INSULANT SC; -ISOVUE-300 61% 50ML VIAL (Q9967) As Ordered; +KETO2CR TOP; +LASI40TA9 PO; +LEVO100T5 PO; +LEVO100T54 PO; +LEVO88TA3 PO; +LIDO1PAD; +LIDO1PAD TD; +LIDO1PAD TOP; +LIDO5DIS41 TD; +LIDO5TD TD; -LIDOCAINE 2% MDV 20 ML VIAL As Ordered; +LINE60TAB PO; +LOPR1TAB6 PO; +LOSA50TA88 PO; +MAPA500T2 PO; +METF-414 PO; +METO1TAB33 PO; +METO1TAB7 PO; +METO50TA7 PO; +MICR10CA PO; -MIDAZOLAM INJ 2 MG/2 ML VIAL (J2250) As Ordered; +MORP1SOL PO; +NITR0.4D6 TD; +NITR0.4S14 SL; +NITR2PA TD; +NORC1TAB4 PO; +NORCOTAB PO; +NORT10CA2 PO; +NYST-6 TOP; +NYST10CR TOP; +ONDA4TAB5; +ONDA4TAB5 PO; +OXYC1TAB23 PO; +OXYCOD/APAP; +PANT40TA3 PO; +PEG1POW PO; +PERC5TAB12 PO; +PERCOCET PO; +PLAV1TAB2 PO; +REQU2TAB3 PO; +RISATAB3 PO; +ROCA0.5C PO; +ROPI2TAB PO; +ROPI3TAB3 PO; +SENN1TAB2 PO; +SENN8.6T7 PO; +SIMV20TA2 PO; +SPIR-10 PO; +SYNT100T PO; +SYNT88TA2 PO; +TAMI30CA PO; +TOPR25TA PO; +TOPR50TA23 PO; +TORS100T PO; +TORS20TA2 PO; +TOUJ1.2I SC; +TRAM50TA2 PO; +TRAZ-160 PO; +TRAZ-163 PO; +TRAZ10TA PO; +TUMS500C PO; +TYLE325T5 PO; +VICO7.5T11 PO; +VITA100066 PO; +VITA2000 PO; +VITA200015 PO; +VYTO10TA22 PO; +VYTO10TA41 PO; +XANA0.25 PO; +ZETI10TA30 PO; +ZOFR8TAB24 PO; -fentaNYL 100 MCG/2 ML INJECTION (J3010) As Ordered; +plavix
[2019-01-05] MEDS ORDERED: TRAZ-189 (20:22)
[2019-01-05] MEDS ORDERED: OXYCOD/APAP (20:22)
[2019-01-05] MEDS ORDERED: DULO30CA47 (20:22)
[2019-01-05] MEDS ORDERED: HYDR-3910 PO (20:22)
--- NOTE | 2019-01-05 22:04 | REPVR ---
EXAM: CT Head Without Contrast EXAM DATE/TIME: 01/05/2019 9:13 PM CLINICAL HISTORY: 68 years old, female; Injury or trauma; Fall; Initial encounter; Blunt trauma (contusions or hematomas); Consciousness not specified; Additional info: Tr TECHNIQUE: Axial computed tomography images of the head/brain without contrast. All CT scans at this facility use at least one of these dose optimization techniques: automated exposure control; mA and/or kV adjustment per patient size (includes targeted exams where dose is matched to clinical indication); or iterative reconstruction. COMPARISON: CT Head without contrast 09/14/2018 7:53 AM FINDINGS: Brain: There is mild parenchymal volume loss. Minimal white matter changes are demonstrated in the subcortical, centrum semiovale and periventricular white matter consistent with small vessel white matter angiopathic gliosis. Ventricles: Normal. No ventriculomegaly. Bones/joints: Unremarkable. No acute fracture. Sinuses: Visualized sinuses are unremarkable. No acute sinusitis. Mastoid air cells: Visualized mastoid air cells are unremarkable. No mastoid effusion. Soft tissues: Unremarkable. IMPRESSION: There is mild parenchymal volume loss. Minimal white matter changes are demonstrated in the subcortical, centrum semiovale and periventricular white matter consistent with small vessel white matter angiopathic gliosis. No acute intracranial findings. Electronically signed by: Miki Hines On 01/05/2019 22:04:47 PM
--- NOTE | 2019-01-05 22:10 | REPVR ---
EXAM: CT Chest Without Contrast EXAM DATE/TIME: 01/05/2019 9:13 PM CLINICAL HISTORY: 68 years old, female; Injury or trauma; Fall; Initial encounter; Blunt trauma (contusions or hematomas); Additional info: Eval for l rib FX TECHNIQUE: Axial computed tomography images of the chest without intravenous contrast. All CT scans at this facility use at least one of these dose optimization techniques: automated exposure control; mA and/or kV adjustment per patient size (includes targeted exams where dose is matched to clinical indication); or iterative reconstruction. Coronal and sagittal reformatted images were created and reviewed. MIP reconstructed images were created and reviewed. COMPARISON: CT Chest without contrast 11/19/2014 12:15 AM FINDINGS: Lungs: Normal. No consolidation. No masses. Pleural space: Normal. No pneumothorax. No pleural effusion. Heart: There is moderate atherosclerotic calcification of the coronary arteries. Status post coronary arterial stenting. Aorta: Normal. No aortic aneurysm. Lymph nodes: Unremarkable. No enlarged lymph nodes. Bones/joints: Acute rib fracture left seventh rib. Focal pleural thickening overlies the fracture. The spine demonstrates mild degenerative changes. Soft tissues: There is soft tissue edema demonstrated in the abdominal wall, flanks and buttock regions consistent with anasarca. Liver: Examination of the liver demonstrates a lobular surface contour, and enlargement of the left and caudate lobes, findings consistent with cirrhosis. Spleen: There is mild nonspecific splenomegaly. Intraperitoneal space: There is a moderate amount of free intraperitoneal fluid present.The aorta demonstrates mild atherosclerotic calcification. IMPRESSION: Anasarca. Acute fracture left seventh rib. Coronary artery disease. Cirrhosis/splenomegaly. Electronically signed by: Miki Hines On 01/05/2019 22:09:55 PM
[2019-01-05] MEDS ORDERED: BUPIVACAINE LIPOSOME/PF 1.3% 20ML VIAL (13.3MG/ML)(EXPAREL)(C9290 PER1MG) INFIL ONE (22:30)
[2019-01-05] MEDS ORDERED: MORPHINE 4 MG/ML 1ML VIAL/SYRINGE (J2270) IM ONE (23:15)
[2019-01-05] MEDS ORDERED: MORPHINE 4 MG/ML 1ML VIAL/SYRINGE (J2270) IV ONE (23:15)
[2019-01-06] MEDS ORDERED: MORPHINE 4 MG/ML 1ML VIAL/SYRINGE (J2270) IM ONE
[2019-01-06 00:47] VITALS: BP 213/88
--- NOTE | 2019-01-06 20:00 | ED PDOC ---
Post-Departure Follow-Up DR Vianca MORTON FAXED FORMAL REPORT OF CT CHEST FOR FU Debra Wakefield MD Jan 06, 2019 19:59
== END 2019-01-06 01:10 | disposition home or self-care (01) ==
LOC: M ED 20:02
DX: S22.32XA Fracture of one rib, left side, initial encounter for closed fracture (principal); X58.XXXA Exposure to other specified factors, initial encounter; Y92.9 Unspecified place or not applicable; Y93.9 Activity, unspecified; Y99.9 Unspecified external cause status; I25.10 Atherosclerotic heart disease of native coronary artery without angina pectoris; K74.60 Unspecified cirrhosis of liver; R16.1 Splenomegaly, not elsewhere classified; L97.909 Non-pressure chronic ulcer of unspecified part of unspecified lower leg with unspecified severity; E11.9 Type 2 diabetes mellitus without complications; I10 Essential (primary) hypertension; N18.6 End stage renal disease; Z99.2 Dependence on renal dialysis; E03.9 Hypothyroidism, unspecified; E78.5 Hyperlipidemia, unspecified; Z95.5 Presence of coronary angioplasty implant and graft; Z79.4 Long term (current) use of insulin; Z79.899 Other long term (current) drug therapy; Z88.5 Allergy status to narcotic agent; Z88.8 Allergy status to other drugs, medicaments and biological substances
CPT/HCPCS: 64420; 70450; 71250; 96372; 99283; C9290; J2270

== ENCOUNTER 2019-01-09 11:33 | Inpatient (IN) | payer MEDICARE ==
[~2019-01-09] VITALS: Ht 157.5 cm; Wt 77.9 kg
[~2019-01-09 11:33] MED LIST changes: +DULO30CA47; +TRAZ-189
[2019-01-09 12:58] LABS: BASO # 0.1 10^3/uL (0.0-0.2); BASO % 0.7 % (0.0-1.0); EOS # 0.3 10^3/uL (0.0-0.50); EOS % 3.6 % (0.0-3.0); HEMATOCRIT 37.6 % (36.0-47.0); HEMOGLOBIN 11.3 g/dl (12.0-15.5); LYMPH # 0.7 10^3/uL (1.5-4.5); LYMPH % 7.9 % (24.0-44.0); MEAN CORPUSCULAR HEMOGLOBIN 29.2 pg (27.0-33.0); MEAN CORPUSCULAR HGB CONC 30.1 g/dl (32.0-36.5); MEAN CORPUSCULAR VOLUME 97.2 fl (80.0-96.0); MONO # 0.9 10^3/uL (0.0-0.8); MONO % 10.2 % (0.0-5.0); NEUTROPHILS # 6.6 10^3/uL (1.8-7.7); NEUTROPHILS % 76.9 % (36.0-66.0); PLATELET COUNT, AUTOMATED 132 10^3/uL (150-450); RED BLOOD COUNT 3.87 10^6/uL (4.00-5.40); WHITE BLOOD COUNT 8.6 10^3/uL (4.0-10.0)
[2019-01-09 13:07] LABS: INR 1.09; PROTHROMBIN TIME 14.2 SECONDS (12.1-14.4)
[2019-01-09 13:08] LABS: PARTIAL THROMBOPLASTIN TIME 34.1 SECONDS (25.4-37.6)
[2019-01-09] MEDS: MORPHINE 2 MG/ML 1ML SYRINGE (J2270) IV PRN ×4 (13:08→17:58)
[2019-01-09 13:12] LABS: VENOUS BASE EXCESS 0.2 (-2.0-2.0); VENOUS HCO3 26.1 MEQ/L (23.0-27.0); VENOUS O2 SATURATION 67.3 % (60.0-80.0); VENOUS PARTIAL PRESSURE CO2 47.2 mmHg (38.0-50.0); VENOUS PARTIAL PRESSURE O2 36.9 mmHg (30.0-50.0); VENOUS STANDARD HCO3 24.1 MEQ/L; VENOUS TOTAL CO2 27.5 MEQ/L (24.0-28.0)
[2019-01-09 13:13] LABS: ALBUMIN 2.3 GM/DL (3.2-5.2); ALT/SGPT 29 U/L (12-78); BILIRUBIN,DIRECT 0.3 MG/DL (0.0-0.2); BILIRUBIN,TOTAL 0.6 MG/DL (0.2-1.0); BLOOD UREA NITROGEN 30 MG/DL (7-18); CALCIUM LEVEL 7.6 MG/DL (8.8-10.2); CARBON DIOXIDE LEVEL 28 MEQ/L (21-32); CHLORIDE LEVEL 99 MEQ/L (98-107); CPK CREATINE PHOSPHOKINASE 87 U/L (26-192); GLOMERULAR FILTRATION RATE 12.1 (>39); GLUCOSE, FASTING 206 MG/DL (70-100); LIPASE 71 U/L (73-393); MB/CK RELATIVE INDEX 6.78 (< OR =4); NT-PRO BNP 13406 PG/ML (<125); POTASSIUM SERUM 3.9 MEQ/L (3.5-5.1); SODIUM LEVEL 135 MEQ/L (136-145); TOTAL PROTEIN 6.9 GM/DL (6.4-8.2); TROPONIN I < 0.02 NG/ML (< 0.10)
[2019-01-09 13:43] LABS: ERYTHROCYTE SEDIMENTATION RATE 49 mm/hr (0-30)
--- NOTE | 2019-01-09 13:49 | REP ---
CT Head without contrast HISTORY: Fall COMPARISON: 01/05/2019 An area of decreased attenuation is present in the left basal ganglia. This represents an old lacunar infarction. Areas of decreased attenuation are present in periventricular and subcortical white matter. This represents small-vessel ischemic disease. There is no intraparenchymal hemorrhage, acute infarct, mass or midline shift. The ventricular system and cortical sulci are dilated consistent with minimal volume loss. There is no extra cerebral collection. There is no fracture. The visualized sinuses are clear. IMPRESSION: 1. Old left basal ganglia lacunar infarction. 2. Small vessel ischemic disease. 3. Minimal volume loss. Electronically Signed by Carmelo Dean MD 01/09/2019 01:41 P
--- NOTE | 2019-01-09 13:55 | REP ---
CHEST, PORTABLE: AP portable view of the chest was performed. Comparison 09/13/2018. Patient recently sustained a left 7th rib fracture as seen on CT 01/05/2019. The rib fracture is not visualized. There is somewhat poor ventilation with mild bibasilar fibro atelectatic change. Cardiac silhouette is mildly prominent and unchanged. There is a calcification of the thoracic aorta. The mediastinal silhouette is unchanged. IMPRESSION: Mild bibasilar fibro atelectatic change. No pneumothorax. Recent left 7th rib fracture is not visualized. Electronically Signed by Aureliano Rivas MD 01/09/2019 05:28 P
--- NOTE | 2019-01-09 13:55 | REP ---
CT of the abdomen and pelvis without IV and oral contrast for trauma: There is a large volume of free fluid throughout the abdomen and pelvis surrounding the liver and spleen, bowel loops and extending into the pelvis. There is extensive edema in the subcutaneous fat of the abdomen circumferentially compatible with anasarca. There are no lumbar spine vertebral compression deformities or listhesis. There is degenerative disc disease and L5 S1 and at T12-L1. No pelvic fractures are identified. The unenhanced hepatic parenchyma is unremarkable. The gallbladder is poorly identified, however, there are multiple gallbladder calculi along the dependent wall of the gallbladder as previously. The pancreas and spleen are unremarkable. The adrenals are unremarkable. The kidneys are unremarkable. No perinephric hematomas are identified. The abdominal aorta is unremarkable. There is no periaortic hematoma. There is occasional calcified atheroma. Pelvis: The bladder is unremarkable. There is a hysterectomy. Vaginal cuff and adnexa are unremarkable. There is no bowel distension or obstruction. There is no pneumoperitoneum. Impression: Large volume of free fluid throughout the abdomen and pelvis. Extensive circumferential edema in the subcutaneous fat compatible with anasarca. The solid organs are grossly unremarkable, however, this study is insensitive in the absence of IV contrast. No fractures are identified. No pneumoperitoneum. Cholelithiasis. Electronically Signed by Aureliano Banks MD 01/09/2019 01:48 P
--- NOTE | 2019-01-09 13:57 | REP ---
CT cervical spine without contrast HISTORY: Fall COMPARISON: 02/07/2017 There is no acute fracture or subluxation. Disc bulges are present at the C2-3 and C3-4 levels. Disc bulges with associated osteophyte formation are present at the C4-5 through C6-7 levels. There is minimal narrowing of the spinal canal. Uncinate process hypertrophy is present at the C4-5 through C6-7 levels. This produces minimal to moderate narrowing of the neural foramina. The C4-5 through C6-7 intervertebral discs are decreased in height consistent with disc degeneration. IMPRESSION: 1. There is no acute fracture or subluxation. 2. There is cervical spondylosis at the C2-3 through C6-7 levels. Electronically Signed by Carmelo Dean MD 01/09/2019 01:48 P
[2019-01-09] MEDS ORDERED: METO1TAB33 PO (14:31)
[2019-01-09] MEDS ORDERED: SILV50CR TOP (14:31)
[2019-01-09] MEDS ORDERED: TRAZ-163 PO (14:31)
[2019-01-09] MEDS ORDERED: NYSTOI TOP (14:31)
[2019-01-09] MEDS ORDERED: GABA-1171 PO (14:31)
[2019-01-09] MEDS ORDERED: MORPHINE 4 MG/ML 1ML VIAL/SYRINGE (J2270) IV PRN (16:15)
[2019-01-09] MEDS ORDERED: NYSTATIN OINTMENT 15 GM TOP PRN (16:15)
[2019-01-09] MEDS ORDERED: SENOKOT S TAB PO PRN (16:15)
[2019-01-09 18:03] LABS: TOTAL 25(OH) VITAMIN D 17.7 NG/ML (30.0-100.0)
--- NOTE | 2019-01-09 19:05 | HPE ---
DATE OF ADMISSION: 01/09/2019 This is a 68-year old female with a past medical history of end-stage renal disease on hemodialysis Tuesday, Tuesday and Tuesday. The last dialysis was yesterday. History of diabetes with neuropathy. History of Charcot foot on her left lower extremity, hypertension, hypothyroidism who presents to the emergency room after having multiple falls this past week. She says that this brace on her left foot due to her Charcot foot she still has problems ambulating and has been falling quite often during this past week so she came to the ER for evaluation. In the ER she was given Morphine 2 mg IV push for her pain and it did help quite a bit however she is deemed unsafe for discharge until she is evaluated by out brake adjuster and physical therapy team. She denies any chest pain, palpitations or any syncopal events during these falls. PAST MEDICAL HISTORY: End stage renal disease on hemodialysis. Tuesday, Tuesday, Tuesday. History of hypertension, diabetes, hypothyroidism, coronary artery disease, diabetic neuropathy, chronic diastolic heart failure, Charcot joint left lower extremity. Secondary hyperparathyroidism. Obstructive sleep apnea. Restless leg syndrome, depression, chronic renal failure. PAST SURGICAL HISTORY: Four coronary stents, left arm AV fistula, appendectomy, hysterectomy, bilateral cataracts, left toe amputation due to osteomyelitis both 2nd and 4th digits. Right 2nd toe amputation. ALLERGIES: She has drug allergies to vancomycin, pregabalin. FAMILY HISTORY: Noncontributory. SOCIAL HISTORY: Patient denies tobacco, alcohol or illicit drugs. MEDICATIONS AT HOME: Calcium acetate 667 mg by mouth Tuesday, Tuesday, calcium carbonate 500 mg orally Tuesday, Tuesday, Plavix 75 mg orally daily, Colace as needed, gabapentin 100 mg orally twice daily, hydralazine 25 mg orally three times a day, insulin detemir 45 units subcu twice a day, insulin lispro sliding scale, Synthroid 100 mcg orally daily, lidocaine patch to her back daily as needed, metoprolol 100 mg orally twice a day, pantoprazole 40 mg orally daily, ropinirole 6 mg orally twice daily, simvastatin 20 mg orally at bedtime, trazodone 100 mg orally at bedtime. REVIEW OF SYSTEMS: Negative for all 10 major systems except what was mentioned in the HPI. VITALS: Blood pressure 162/78, heart rate 73 and regular, respiratory rate 18, temperature 98.5, Oxygen saturation 94% on 2 liters nasal cannula. Head is atraumatic, normocephalic. Neck is supple with no JVD. Lungs were clear to auscultation. S1, S2, audible. No murmurs appreciated. Abdomen soft with positive bowel sounds with no pedal edema. Skin intact. Neurologic examination, patient awake and alert times three. LABS: WBC 8.6, hemoglobin 11.3, hematocrit 37.6, platelets 132,000, sodium 135, potassium 3., chloride 99, CO2 28, BUN 30, creatinine 3.9. Troponin is less than 0.02, TSH is 22.4. IMPRESSION: 1. Debility. 2. Falls. PLAN: The patient is to be admitted to med-surg floor. We will have PT and OT evaluate this patient and she may need a subacute rehabilitation placement. Our brake adjuster Dr. Baeza has been consulted and will see the patient and we will be looking forward to his recommendations. As far as her falls are concerned her head CT is negative and her cervical spine CT showed no fractures. Due to the highly elevated TSH, I am going to increase her Synthroid from 100 mcg daily to 125.
--- NOTE | 2019-01-09 19:08 | ECGEPIP ---
Stationary ECG Study 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
--- NOTE | 2019-01-09 19:11 | REP ---
CT of the chest without IV contrast for trauma: There is a nondisplaced fracture laterally in the left seventh rib. There is a small left pleural fluid collection. There is atelectasis at the inferior tip of the lingula. There is a small left pneumothorax anteriorly. The right lung is clear. There is no mediastinal or periaortic hematoma. The cardiac size is normal. Thoracic aorta is unremarkable. There is free fluid surrounding the liver and spleen. The visualized upper abdomen. No vertebral body compression deformities. No sternal fracture. No clavicle or scapular fracture. Electronically Signed by Aureliano Banks MD 01/09/2019 07:01 P
[2019-01-09] MEDS: PERCOCET 5MG/325MG TAB PO PRN (19:58)
[2019-01-09] MEDS: SIMVASTATIN 20 MG TAB PO SCH (20:38)
[2019-01-09] MEDS: GABAPENTIN 100 MG CAP PO SCH (20:38)
[2019-01-09] MEDS: traZODone 100 MG TAB PO SCH (20:38)
[2019-01-09] MEDS: **hydrALAZINE HCL** 25 MG TAB PO SCH (20:38)
[2019-01-09] MEDS: METOPROLOL SUCC (TopROL XL) 100MG *XL* TAB PO SCH (20:39)
[2019-01-09 20:55] VITALS: BP 158/72
[2019-01-09] MEDS ORDERED: rOPINIRole 2MG TAB PO SCH (21:00)
[2019-01-09] MEDS: HumaLOG INSULIN (NovoLOG) PER UNIT SC SCH (21:00)
[2019-01-09] MEDS: LEVEMIR (INSULIN DETEMIR) 1 UNITS/0.01ML SC SCH (22:19)
[2019-01-09] MEDS ORDERED: GLUCOSE 4 GM CHEW TABLET PO PRN (23:15)
[2019-01-09] MEDS ORDERED: GLUCAGON FOR INJ 1 MG VIAL (J1610) SC PRN (23:15)
[2019-01-09] MEDS ORDERED: DEXTROSE 50% 50 ML SYRINGE IV PRN (23:15)
[2019-01-10 06:00] VITALS: BP 161/77
[2019-01-10] MEDS ORDERED: LEVOTHYROXINE 100MCG TABLET (0.1MG) PO SCH (06:00)
[2019-01-10] MEDS: LEVOTHYROXINE 125MCG TABLET (0.125MG) PO SCH (06:00)
[2019-01-10 07:17] LABS: CALCIUM LEVEL 7.2 MG/DL (8.8-10.2); CREATININE FOR GFR 4.71 MG/DL (0.55-1.30); GLOMERULAR FILTRATION RATE 9.8 (>39); POTASSIUM SERUM 3.9 MEQ/L (3.5-5.1)
[2019-01-10] MEDS: HumaLOG INSULIN (NovoLOG) PER UNIT SC SCH ×4 (07:30→22:33)
[2019-01-10] MEDS: GABAPENTIN 100 MG CAP PO SCH ×2 (09:53→22:26)
[2019-01-10] MEDS: rOPINIRole 2MG TAB PO SCH ×2 (09:53→22:26)
[2019-01-10] MEDS: PANTOPRAZOLE 40MG TAB (PROTONIX) PO SCH (09:54)
[2019-01-10] MEDS: CLOPIDOGREL 75 MG TAB PO SCH (09:54)
[2019-01-10] MEDS: CALCIUM ACETATE 667 MG GELCAP PO SCH ×3 (09:54→21:08)
[2019-01-10] MEDS: CALCIUM CARBONATE 500 MG CHEW U/D PO SCH ×3 (09:54→18:46)
[2019-01-10] MEDS: METOPROLOL SUCC (TopROL XL) 100MG *XL* TAB PO SCH ×2 (09:56→22:28)
[2019-01-10] MEDS: **hydrALAZINE HCL** 25 MG TAB PO SCH ×3 (09:56→22:30)
[2019-01-10] MEDS: PERCOCET 5MG/325MG TAB PO PRN ×2 (11:13→19:11)
[2019-01-10] MEDS ORDERED: LIDOCAINE 1% SDV 5 ML VIAL SQ ONE (11:30)
[2019-01-10] MEDS ORDERED: HEPARIN 1,000 UNITS/ML 10ML VIAL (FOR RADIOLOGY& DIALYSIS ONLY) IV ONE (11:30)
[2019-01-10 14:00] VITALS: BP 137/55
[2019-01-10] MEDS: LEVEMIR (INSULIN DETEMIR) 1 UNITS/0.01ML SC SCH (21:00)
[2019-01-10 22:00] VITALS: BP 140/64
[2019-01-10] MEDS: SIMVASTATIN 20 MG TAB PO SCH (22:26)
[2019-01-10] MEDS: traZODone 100 MG TAB PO SCH (22:32)
--- NOTE | 2019-01-10 23:17 | IPNPDOC ---
Text Note Date of Service The patient was seen on 01/10/19. NOTE Subjective: complains of chest pain where she had broken her ribs, also compl ains of some difficulty in breathing. says her legs are very weak and difficult to lift and move. Has poor strength in the legs and often give way which has been very frequent in the past 2 weeks, She has gained a lot of weight in the past 1 month. Does admit to missing sevel HD treatments in the last 1 to 2 months. PHYSICAL EXAM: VITALS: As below HEENT: Head is atraumatic, normocephalic.moist mucus membranes, anicteric eyes. Facy in puffy , generalized anasarca. Neck is supple with no JVD. Lungs were clear to auscultation. S1, S2, audible. Systolic murmur present, no rub or gallop Abdomen soft with positive bowel sounds, massively distended, with ascitis. Extremities 1+ pedal edema. Skin : Chronic ulcer on the left heel , on the right heel dried and scabbed over old heeled ulcer. Neurologic examination, patient awake and alert times three. Labs and Radiology: reviewed ASSESSMENT and PLAN: Patient is a 68 year-old female with a past medical history of end-stage renal disease, on hemodialysis on a Tuesday, Tuesday, Tuesday maintenance scheduled via left upper extremity fistula, secondary hyperparathyroidism, diabetes, neuropathy, coronary artery disease, hypertension, hypothyroidism, diastolic congestive heart failure, Cirrhosis of liver possibly due to Amador, JUAN, obesity, anemia of chronic renal failure, charcot joint of left ankle, gout or pseudogout, multiple episodes of diabetic ulcers and osteomyelitis with toe amputations, left heel chronic ulcer, Left 7th Rib fracture on 01/05 after a fall with small pneumothorax, gall stones, cervical spondylosis presented to the emergency room after having multiple falls this past 1 to 2 week. She says that she has a brace on her left foot due to her Charcot joint but she still has problems ambulating and has been falling quite often during this past 1- 2 weeks so she came to the ER for evaluation. Pateint noted to have anasarca, large amount of ascitis and SOB. Pateint did say she has been been some HD treatments of the past 6 weeks. She is known to be non complaint with dietary salt and fluid restrictions. Gait immbalance and falls. due to left charcot joint with gait instability, has chronic left heel ulcer al so causing difficulty in walking. PT evaluation Anasarca with large ascitis causing some SOB . due to missing HD treatments and also underlying cirrhosis of liver with dietary indisretion For HD today . May have to do paracentesis for the ascitis Chronic left heel ulcer continue dressing change. Acute left 7th rib fracture with associated small pneumothorax continue pain meds and will monitor. Back pain, diabetic neuropathy continue gabapentin. End-stage renal disease with hyperphosphatemia and secondary hyperparathyroidism on hemodialysis as per nephrology. continue tums and phoslo. Hypertension. On hydralazine and metoprolol. Cirrhosis of liver with ascitis Hepatitis panel neg. no history of heavy alcohol abuse. ceruloplasmin level normal etiology undetermined May be due to AMADOR. Anemia. Secondary to the chronic kidney disease. Continue to monitor. History of coronary artery disease, on statin, Plavix, metoprolol. Type 2 diabetes, on sliding scale and consistent carbohydrate diet. Hypothyroidism, on Synthroid. Dyslipidemia, on statin. Restless leg syndrome, on Requip. History of esophageal reflux disease, on Protonix. Obstructive sleep apnea (JUAN). No issues at present. Gout or pseudogout has h/o high uric acid. No issues at present. Depression. Continue current medications. VS,Fishbone, I+O VS, Fishbone, I+O Laboratory Tests 01/10/19 06:24 Calcium Level 7.2 L Vital Signs Date Time Temp Pulse Resp B/P (MAP) Pulse Ox O2 Delivery O2 Flow Rate FiO2 01/10/19 22:28 66 135/54 01/10/19 22:00 97.4 20 92 2.0 01/09/19 20:35 Nasal Cannula I&O- Last 24 Hours up to 6 AM 01/10/19 06:00 Intake Total 0 ml Output Total 50 ml Balance -50 ml MEETA BARGER MD Jan 10, 2019 23:17
[2019-01-11] MEDS: PERCOCET 5MG/325MG TAB PO PRN ×2 (01:18→13:24)
--- NOTE | 2019-01-11 03:09 | CR ---
DATE OF CONSULTATION: 01/10/2019 REQUESTING PHYSICIAN: Dr. Bonnie Rooney REASON FOR CONSULTATION: Management of end-stage renal disease on hemodialysis. HISTORY OF PRESENT ILLNESS: Dalila Hernandez is a 68-year-old female with a past medical history of end-stage renal disease on hemodialysis on a Tuesday, Tuesday and Tuesday maintenance schedule via a left upper extremity fistula chronically noncompliant with dialysis and fluid restriction also a history of diabetes, neuropathy, coronary artery disease, hypertension, hypothyroidism, diastolic congestive heart failure, anemia of chronic renal failure and other comorbid conditions mentioned below. She presents to the emergency room this time around with complaint of recurrent falls at home related to her left Charcot foot and she also complains of abdominal distention and CT chest showed a small left pneumothorax anteriorly. She reports a few missed dialysis treatments over the past few weeks. PAST MEDICAL HISTORY: As mentioned above and also includin. Secondary hyperparathyroidism. 2. Obstructive sleep apnea. 3. Restless leg syndrome. 4. Use of multiple pain medications. 5. Depression. PAST SURGICAL HISTORY: 1. Coronary stents. 2. Left arm arteriovenous (AV) fistula. 3. Appendectomy. 4. Hysterectomy. 5. Bilateral cataracts. 6. Left toe amputation. 7. Right second toe amputation. ALLERGIES: Drug allergies to VANCOMYCIN and PREGABALIN. FAMILY HISTORY: No significant family history of end-stage renal disease requiring dialysis. SOCIAL HISTORY: She lives at home with her . There is no reported drug use, tobacco use or alcohol use. The patient is opioid dependent. REVIEW OF SYSTEMS: CONSTITUTIONAL: She reports feeling very fatigued and weak and recurrent falls. HEENT: Eyes: She denies visual changes or tearing. ENT: Denies dysphagia or odynophagia. CARDIOVASCULAR: She reports lower extremity edema. She reports history of diastolic congestive heart failure (CHF). She denies chest pain. RESPIRATORY: She has a small pneumothorax. She reports shortness of breath. GASTROINTESTINAL (GI): She denies nausea or vomiting. GENITOURINARY (): She denies dysuria or hematuria. MUSCULOSKELETAL: She reports severe pain in the lower extremities which has been chronic and she reports Charcot foot on the left. Recurrent falls. HEMATOLOGIC: She denies easy bleeding or bruising. ENDOCRINE: She reports history of diabetes and secondary hyperparathyroidism. NEUROLOGIC: She denies seizure or syncope. PHYSICAL EXAMINATION: VITAL SIGNS: Temperature 98.0, pulse 69, respiratory rate 19, blood pressure 137/55, saturating 91% on 2 liters nasal cannula. Intake and output is not recorded. PHYSICAL EXAMINATION: GENERAL: The patient is seen lying in bed, awake, alert, lying relatively flat in no respiratory distress. HEENT: Extraocular muscles are intact. Tongue is moist. Neck is supple. Jugular veins are elevated. CARDIAC: S1, S2. Regular rate and rhythm. LUNGS: Lungs showed diminished breath sounds at the bases. No crackles or rhonchus. ABDOMEN: The abdomen is very protuberant and there appears to be ascitic fluid present. There are bowel sounds. The lower extremities show dressings on the foot and 1 to 2+ pitting edema. The left upper extremity shows a fistula with thrill and bruits. NEUROLOGIC: She is awake, alert and oriented. LABORATORIES: White count 8.6, hemoglobin 11.3. Sodium 137, potassium 3.9, brain natriuretic peptide (BNP) 13,000. Blood culture: No growth for 24 hours times two sets. CT chest 01/09/2019 without contrast shows small left pneumothorax and nondisplaced fracture of the left seventh rib and CT abdomen and pelvis 01/09/2019 shows large volume of free fluid throughout the abdomen and pelvis and circumferential edema in the subcutaneous tissues compatible with anasarca. INPATIENT MEDICATIONS: - PhosLo 1 tablet by mouth with meals - Tums 500 mg by mouth with meal - Plavix 75 mg by mouth daily - gabapentin 100 mg by mouth twice a day - hydralazine 25 mg by mouth three times a day - insulin - Synthroid 125 mcg by mouth daily - metoprolol 100 mg by mouth twice a day - Requip 4 mg by mouth twice a day - Protonix 40 mg by mouth daily - Zocor 20 mg by mouth at bedtime - trazodone 100 mg by mouth at bedtime PROBLEMS: 1. End-stage renal disease on hemodialysis on a Tuesday, Tuesday and Tuesday schedule. The patient has a history of chronic noncompliance with dialysis and also noncompliance with fluid restriction. She is usually significantly volume overloaded. This time around as well she is in decompensated heart failure. She is going to be dialyzed today with the goal fluid removal of 3 to 4 liters as tolerated by hemodynamics. Her electrolytes are acceptable. 2. Diastolic congestive heart failure (CHF) decompensated with elevated brain natriuretic peptide (BNP), peripheral edema on examination and ascites present as well. Continue fluid restriction. The patient is presently requiring supplemental oxygen. She is going to be dialyzed today with the goal fluid removal of 3 to 4 liters as tolerated. I have also discussed with the hospitalist regarding setting her up for a large volume paracentesis and we will plan for additional dialysis treatments while she is in house for further control of her volume status. 3. Ascites likely related to diastolic congestive heart failure (CHF) and noncompliance with fluid restriction in this hemodialysis patient. The patient is usually volume overloaded. CAT scan showed significant free fluid throughout the abdomen and pelvis. I suggest setting her up for interventional radiology (IR) guided paracentesis tomorrow which will be a nondialysis day and she should also be given albumin with large volume paracentesis as well. In view of her pneumothorax and supplemental oxygen requirements, I think therapeutic paracentesis will give her some symptomatic relief. 4. Hypertension. Blood pressures are acceptable and no changes are being made to her current regimen. 5. Anemia related to chronic renal failure and inflammation. Hemoglobin is at goal and no intervention needed at present. Thank you for involving me in the care of Ms. Hernandez. I will be happy to follow her along with you.
[2019-01-11 06:00] VITALS: BP 148/66
[2019-01-11] MEDS: LEVOTHYROXINE 125MCG TABLET (0.125MG) PO SCH (06:31)
[2019-01-11] MEDS: CALCIUM ACETATE 667 MG GELCAP PO SCH ×4 (08:00→17:55)
[2019-01-11] MEDS: CALCIUM CARBONATE 500 MG CHEW U/D PO SCH ×4 (08:00→17:56)
[2019-01-11] MEDS: LEVEMIR (INSULIN DETEMIR) 1 UNITS/0.01ML SC SCH ×2 (08:18→21:23)
[2019-01-11] MEDS: rOPINIRole 2MG TAB PO SCH ×3 (08:18→21:21)
[2019-01-11] MEDS: HumaLOG INSULIN (NovoLOG) PER UNIT SC SCH ×4 (08:18→21:20)
[2019-01-11] MEDS: GABAPENTIN 100 MG CAP PO SCH ×3 (08:18→21:22)
[2019-01-11] MEDS: PANTOPRAZOLE 40MG TAB (PROTONIX) PO SCH ×2 (08:19→09:00)
[2019-01-11] MEDS: METOPROLOL SUCC (TopROL XL) 100MG *XL* TAB PO SCH ×3 (08:25→21:22)
[2019-01-11] MEDS: **hydrALAZINE HCL** 25 MG TAB PO SCH ×4 (08:25→21:22)
[2019-01-11 08:32] LABS: BASO % 0.5 % (0.0-1.0); EOS # 0.4 10^3/uL (0.0-0.50); EOS % 6.4 % (0.0-3.0); HEMATOCRIT 36.9 % (36.0-47.0); HEMOGLOBIN 10.7 g/dl (12.0-15.5); LYMPH # 0.7 10^3/uL (1.5-4.5); LYMPH % 12.3 % (24.0-44.0); MEAN CORPUSCULAR HEMOGLOBIN 29.2 pg (27.0-33.0); MEAN CORPUSCULAR VOLUME 100.5 fl (80.0-96.0); MONO # 0.7 10^3/uL (0.0-0.8); MONO % 13.2 % (0.0-5.0); NEUTROPHILS # 3.8 10^3/uL (1.8-7.7); NEUTROPHILS % 67.1 % (36.0-66.0); PLATELET COUNT, AUTOMATED 123 10^3/uL (150-450); RED BLOOD COUNT 3.67 10^6/uL (4.00-5.40); WHITE BLOOD COUNT 5.6 10^3/uL (4.0-10.0)
[2019-01-11 08:53] LABS: CALCIUM LEVEL 7.6 MG/DL (8.8-10.2); GLOMERULAR FILTRATION RATE 11.8 (>39); POTASSIUM SERUM 3.6 MEQ/L (3.5-5.1)
[2019-01-11 09:37] VITALS: BP 144/66
[2019-01-11] MEDS ORDERED: ONDANSETRON 4MG/2ML VIAL (J2405) IV PRN (11:45)
--- NOTE | 2019-01-11 13:19 | IPNPDOC ---
Text Note Date of Service The patient was seen on 01/11/19. NOTE Subjective: complains of chest pain where she had broken her ribs, also compl ains of some difficulty in breathing. says her legs are very weak and difficult to lift and move. Has poor strength in the legs and often give way which has been very frequent in the past 2 weeks, She has gained a lot of weight in the past 1 month. Does admit to missing sevel HD treatments in the last 1 to 2 months. PHYSICAL EXAM: VITALS: As below HEENT: Head is atraumatic, normocephalic.moist mucus membranes, anicteric eyes. Facy in puffy , generalized anasarca. Neck is supple with no JVD. Lungs were clear to auscultation. S1, S2, audible. Systolic murmur present, no rub or gallop Abdomen soft with positive bowel sounds, massively distended, with ascitis. Extremities 1+ pedal edema. Skin : Chronic ulcer on the left heel , on the right heel dried and scabbed over old heeled ulcer. Neurologic examination, patient awake and alert times three. Labs and Radiology: reviewed ASSESSMENT and PLAN: Patient is a 68 year-old female with a past medical history of end-stage renal disease, on hemodialysis on a Tuesday, Tuesday, Tuesday maintenance scheduled via left upper extremity fistula, secondary hyperparathyroidism, diabetes, neuropathy, coronary artery disease, hypertension, hypothyroidism, diastolic congestive heart failure, Cirrhosis of liver possibly due to [place], JUAN, obesity, anemia of chronic renal failure, charcot joint of left ankle, gout or pseudogout, multiple episodes of diabetic ulcers and osteomyelitis with toe amputations, left heel chronic ulcer, Left 7th Rib fracture on 01/05 after a fall with small pneumothorax, gall stones, cervical spondylosis presented to the emergency room after having multiple falls this past 1 to 2 week. She says that she has a brace on her left foot due to her Charcot joint but she still has problems ambulating and has been falling quite often during this past 1- 2 weeks so she came to the ER for evaluation. Pateint noted to have anasarca, large amount of ascitis and SOB. Pateint did say she has been been some HD treatments of the past 6 weeks. She is known to be non complaint with dietary salt and fluid restrictions. Gait imbalance and falls. due to left Charcot joint with gait instability, has chronic left heel ulcer als o causing difficulty in walking. PT evaluation Anasarca with large ascites causing some SOB . due to missing HD treatments and also underlying cirrhosis of liver with dietary indiscretion will schedule for paracentesis for the ascitis Chronic left heel ulcer continue dressing change. debridement done at bedside by slab inspector Dr Baeza right heel dry ulcer also debrided Acute left 7th rib fracture with associated small pneumothorax continue pain meds and will monitor. Back pain, diabetic neuropathy continue gabapentin. End-stage renal disease with hyperphosphatemia and secondary hyperparathyroidism on hemodialysis as per nephrology. continue tums and phoslo. Hypertension. On hydralazine and metoprolol. Cirrhosis of liver with ascitis Hepatitis panel neg. no history of heavy alcohol abuse. ceruloplasmin level normal etiology undetermined May be due to AMADOR. Anemia. Secondary to the chronic kidney disease. Continue to monitor. History of coronary artery disease, on statin, Plavix, metoprolol. Type 2 diabetes, on sliding scale and consistent carbohydrate diet. Hypothyroidism, on Synthroid. Dyslipidemia, on statin. Restless leg syndrome, on Requip. History of esophageal reflux disease, on Protonix. Obstructive sleep apnea (JUAN). No issues at present. Gout or pseudogout has h/o high uric acid. No issues at present. Depression. Continue current medications. VS,Fishbone, I+O VS, Fishbone, I+O Laboratory Tests 01/11/19 08:17 Red Blood Count 3.67 L, Mean Corpuscular Volume 100.5 H, Mean Corpuscular Hemo globin 29.2, Mean Corpuscular Hemoglobin Concent 29.0 L, Red Cell Distribution Width 18.6 H, Neutrophils (%) (Auto) 67.1 H, Lymphocytes (%) (Auto) 12.3 L, Monocytes (%) (Auto) 13.2 H, Eosinophils (%) (Auto) 6.4 H, Basophils (%) (Auto) 0.5, Neutrophils # (Auto) 3.8, Lymphocytes # (Auto) 0.7 L, Monocytes # (Auto) 0.7, Eosinophils # (Auto) 0.4, Basophils # (Auto) 0.0, Calcium Level 7.6 L Vital Signs Date Time Temp Pulse Resp B/P (MAP) Pulse Ox O2 Delivery O2 Flow Rate FiO2 2/14/19 09:37 97.4 58 16 144/66 (92) 98 2.0 01/09/19 20:35 Nasal Cannula I&O- Last 24 Hours up to 6 AM 01/11/19 06:00 Intake Total 500 ml Output Total 3000 ml Balance -2500 ml MEETA BARGER MD Jan 11, 2019 13:19
[2019-01-11 14:00] VITALS: BP 140/70
[2019-01-11] MEDS: ONDANSETRON 4 MG ORAL DISINTEGRATING TAB (Q0162 PER 1MG) PO PRN (16:50)
[2019-01-11] MEDS: SIMVASTATIN 20 MG TAB PO SCH (21:21)
[2019-01-11] MEDS: traZODone 100 MG TAB PO SCH (21:21)
[2019-01-11 22:00] VITALS: BP 133/68
[2019-01-12] MEDS: PERCOCET 5MG/325MG TAB PO PRN ×3 (04:22→22:04)
[2019-01-12] MEDS: LEVOTHYROXINE 125MCG TABLET (0.125MG) PO SCH (05:57)
[2019-01-12 06:00] VITALS: BP 148/85
[2019-01-12 06:05] LABS: BASO % 0.5 % (0.0-1.0); EOS # 0.3 10^3/uL (0.0-0.50); EOS % 5.4 % (0.0-3.0); HEMATOCRIT 33.9 % (36.0-47.0); LYMPH # 0.9 10^3/uL (1.5-4.5); LYMPH % 16.5 % (24.0-44.0); MEAN CORPUSCULAR HEMOGLOBIN 29.1 pg (27.0-33.0); MEAN CORPUSCULAR HGB CONC 29.5 g/dl (32.0-36.5); MEAN CORPUSCULAR VOLUME 98.5 fl (80.0-96.0); MONO # 0.8 10^3/uL (0.0-0.8); MONO % 13.6 % (0.0-5.0); NEUTROPHILS # 3.6 10^3/uL (1.8-7.7); NEUTROPHILS % 63.8 % (36.0-66.0); PLATELET COUNT, AUTOMATED 124 10^3/uL (150-450); RED BLOOD COUNT 3.44 10^6/uL (4.00-5.40); WHITE BLOOD COUNT 5.6 10^3/uL (4.0-10.0)
[2019-01-12 06:37] LABS: CALCIUM LEVEL 7.5 MG/DL (8.8-10.2); CREATININE FOR GFR 4.99 MG/DL (0.55-1.30); GLOMERULAR FILTRATION RATE 9.1 (>39)
[2019-01-12] MEDS: GABAPENTIN 100 MG CAP PO SCH ×2 (07:14→22:02)
[2019-01-12] MEDS: PANTOPRAZOLE 40MG TAB (PROTONIX) PO SCH (07:14)
[2019-01-12] MEDS: CALCIUM CARBONATE 500 MG CHEW U/D PO SCH ×3 (07:14→16:34)
[2019-01-12] MEDS: rOPINIRole 2MG TAB PO SCH ×2 (07:14→22:02)
[2019-01-12] MEDS: CALCIUM ACETATE 667 MG GELCAP PO SCH ×3 (07:14→16:33)
[2019-01-12] MEDS: LEVEMIR (INSULIN DETEMIR) 1 UNITS/0.01ML SC SCH ×2 (07:56→22:02)
[2019-01-12] MEDS: HumaLOG INSULIN (NovoLOG) PER UNIT SC SCH ×4 (07:56→21:00)
[2019-01-12] MEDS: METOPROLOL SUCC (TopROL XL) 100MG *XL* TAB PO SCH ×2 (08:53→22:03)
[2019-01-12] MEDS: **hydrALAZINE HCL** 25 MG TAB PO SCH ×3 (08:53→22:03)
[2019-01-12] MEDS ORDERED: LIDOCAINE 1% SDV 5 ML VIAL SQ ONE (10:15)
[2019-01-12] MEDS ORDERED: HEPARIN 1,000 UNITS/ML 10ML VIAL (FOR RADIOLOGY& DIALYSIS ONLY) IV ONE (10:15)
[2019-01-12 16:00] VITALS: BP 160/78
--- NOTE | 2019-01-12 16:32 | IPN ---
DATE: 01/11/2019 SUBJECTIVE: Dalila is seen and examined this morning at the bedside. She is very anxious. Her has been admitted to the intensive care unit in the past 24 hours. She inquires at length regarding his clinical condition. Otherwise in regard to herself, Dalila denies any acute new complaints. She tolerated dialysis yesterday with 3 liters of fluid removed. She complains of ongoing chest pain related to her rib fracture and she complains of fatigue and weakness. Vital signs: Temperature 97.4, pulse 58, respiratory rate 16, blood pressure 144/66, saturating 98% on 2 liters nasal cannula. Intake yesterday was 500, dialysis yesterday removed 3000, net negative 2500. Weight in the bed scale today is not recorded. General: Patient is seen lying fairly flat in bed, elderly female, no acute respiratory distress. Extraocular muscles are intact. Tongue is moist. Neck is supple. Jugular veins are elevated. Cardiac: S1, S2, regular rate and rhythm. Lungs show diminished breath sounds at the bases. Abdomen is protuberant. There appears to be ascitic fluid present. There are bowel sounds. The lower extremities have dressings on the feet and there is 1+ pitting edema bilaterally extending up to the dependent areas. The left upper extremity has a fistula with thrill and bruit. Neurologic: She is awake, alert, oriented times three and at baseline mentation. LABORATORY DATA: White count 5.6, hemoglobin 10.7, platelets 123, sodium 138, potassium 3.6, bicarbonate 32. INPATIENT MEDICATIONS: Reviewed by myself and no change from prior. PROBLEMS: 1. End-stage renal disease on hemodialysis on a Tuesday, Tuesday, Tuesday schedule. Patient has a history of chronic noncompliance with dialysis and also noncompliance with fluid restriction. She is volume overloaded on exam which is a chronic finding for her most of the time. She will be dialyzed again tomorrow with goal fluid removal of 3-4 liters as tolerated by hemodynamics. Her electrolytes are acceptable. Her fistula is in good use. 2. Decompensated diastolic congestive heart failure with elevated BNP, peripheral edema on exam, and anasarca and ascites present. Please continue fluid restriction. I have discussed with the hospitalist regarding setting her up for large volume paracentesis with 25% albumin, 6-8 grams per liter of ascitic fluid removed. We will also continue with fluid removal with hemodialysis and I will plan for an extra treatment on Tuesday if Dalila is willing. 3. Ascites likely related to diastolic congestive heart failure and noncompliance with fluid restriction in this hemodialysis patient. CT scan showed significant free fluid throughout the abdomen and pelvis. She is pending interventional radiology (IR) guided paracentesis after Plavix has been held for 5 days. She should be given albumin with the large volume paracentesis as well. In view of her pneumothorax and supplemental oxygen requirements, I think therapeutic paracentesis will give her some symptomatic relief. Liver cirrhosis workup as per the primary team. 4. Hypertension. Blood pressures are acceptable and no changes are being made to her regimen today. 5. Anemia related to chronic renal failure. Hemoglobin is at goal and we will resume Aranesp as indicated. 6. Recurrent falls and left foot Charcot joint and chronic heel ulcer. As per primary team and physical therapy.
--- NOTE | 2019-01-12 21:12 | IPNPDOC ---
Text Note Date of Service The patient was seen on 01/12/19. NOTE Subjective: Complains of chest pain where she had broken her ribs, also compl ains of some difficulty in breathing. says her legs are very weak and difficult to lift and move. Has poor strength in the legs and often give way which has been very frequent in the past 2 weeks, She has gained a lot of weight in the past 1 month. Does admit to missing severel HD treatments in the last 1 to 2 months. PHYSICAL EXAM: VITALS: As below HEENT: Head is atraumatic, normocephalic.moist mucus membranes, anicteric eyes. Facy in puffy , generalized anasarca. Neck is supple with no JVD. Lungs were clear to auscultation. S1, S2, audible. Systolic murmur present, no rub or gallop Abdomen soft with positive bowel sounds, massively distended, with ascitis. Extremities 1+ pedal edema. Skin : Chronic ulcer on the left heel , on the right heel dried and scabbed over old heeled ulcer. Neurologic examination, patient awake and alert times three. Labs and Radiology: reviewed ASSESSMENT and PLAN: Patient is a 68 year-old female with a past medical history of end-stage renal disease, on hemodialysis on a Tuesday, Tuesday, Tuesday maintenance scheduled via left upper extremity fistula, secondary hyperparathyroidism, diabetes, neuropathy, coronary artery disease, hypertension, hypothyroidism, diastolic congestive heart failure, Cirrhosis of liver possibly due to Amador, JUAN, obesity, anemia of chronic renal failure, charcot joint of left ankle, gout or pseudogout, multiple episodes of diabetic ulcers and osteomyelitis with toe amputations, left heel chronic ulcer, Left 7th Rib fracture on 01/05 after a fall with small pneumothorax, gall stones, cervical spondylosis presented to the emergency room after having multiple falls this past 1 to 2 week. She says that she has a brace on her left foot due to her Charcot joint but she still has problems ambulating and has been falling quite often during this past 1- 2 weeks so she came to the ER for evaluation. Pateint noted to have anasarca, large amount of ascitis and SOB. Pateint did say she has been been some HD treatments of the past 6 weeks. She is known to be non complaint with dietary salt and fluid restrictions. Gait imbalance and falls. due to left Charcot joint with gait instability, has chronic left heel ulcer a lso causing difficulty in walking. PT evaluation Anasarca with large ascites causing some SOB . due to missing HD treatments and also underlying cirrhosis of liver with dietary indiscretion will schedule for paracentesis for the ascitis Chronic left heel ulcer continue dressing change. debridement done at bedside by manager pet Dr Baeza right heel dry ulcer also debrided Acute left 7th rib fracture with associated small pneumothorax continue pain meds and will monitor. Back pain, diabetic neuropathy continue gabapentin. End-stage renal disease with hyperphosphatemia and secondary hyperparathyroidism on hemodialysis as per nephrology. continue tums and phoslo. Hypertension. On hydralazine and metoprolol. Cirrhosis of liver with ascitis Hepatitis panel neg. no history of heavy alcohol abuse. ceruloplasmin level normal etiology undetermined May be due to AMADOR. Anemia. Secondary to the chronic kidney disease. Continue to monitor. History of coronary artery disease, on statin, Plavix, metoprolol. Type 2 diabetes, on sliding scale and consistent carbohydrate diet. Hypothyroidism, on Synthroid. Dyslipidemia, on statin. Restless leg syndrome, on Requip. History of esophageal reflux disease, on Protonix. Obstructive sleep apnea (JUAN). No issues at present. Gout or pseudogout has h/o high uric acid. No issues at present. Depression. Continue current medications. VS,Fishbone, I+O VS, Fishbone, I+O Laboratory Tests 01/12/19 05:49 Red Blood Count 3.44 L, Mean Corpuscular Volume 98.5 H, Mean Corpuscular Hem oglobin 29.1, Mean Corpuscular Hemoglobin Concent 29.5 L, Red Cell Distribution Width 18.5 H, Neutrophils (%) (Auto) 63.8, Lymphocytes (%) (Auto) 16.5 L, Monocytes (%) (Auto) 13.6 H, Eosinophils (%) (Auto) 5.4 H, Basophils (%) (Auto) 0.5, Neutrophils # (Auto) 3.6, Lymphocytes # (Auto) 0.9 L, Monocytes # (Auto) 0.8, Eosinophils # (Auto) 0.3, Basophils # (Auto) 0.0, Calcium Level 7.5 L Vital Signs Date Time Temp Pulse Resp B/P (MAP) Pulse Ox O2 Delivery O2 Flow Rate FiO2 01/12/19 17:13 160/78 01/12/19 16:00 97.2 60 18 96 01/12/19 07:56 2.0 01/09/19 20:35 Nasal Cannula I&O- Last 24 Hours up to 6 AM 01/12/19 06:00 Intake Total 870 ml Output Total 50 ml Balance 820 ml MEETA BARGER MD Jan 12, 2019 21:11
[2019-01-12 22:00] VITALS: BP 156/78
[2019-01-12] MEDS: traZODone 100 MG TAB PO SCH (22:03)
[2019-01-12] MEDS: SIMVASTATIN 20 MG TAB PO SCH (22:03)
[2019-01-13] VITALS (10 sets, daily range): BP systolic 119–164; BP diastolic 57–76
[2019-01-13] MEDS: LEVOTHYROXINE 125MCG TABLET (0.125MG) PO SCH (06:03)
[2019-01-13] MEDS: PERCOCET 5MG/325MG TAB PO PRN ×2 (06:04→12:25)
[2019-01-13 06:07] LABS: BASO % 0.4 % (0.0-1.0); EOS # 0.3 10^3/uL (0.0-0.50); EOS % 4.5 % (0.0-3.0); HEMATOCRIT 34.7 % (36.0-47.0); HEMOGLOBIN 10.1 g/dl (12.0-15.5); MEAN CORPUSCULAR HEMOGLOBIN 29.3 pg (27.0-33.0); MEAN CORPUSCULAR HGB CONC 29.1 g/dl (32.0-36.5); MEAN CORPUSCULAR VOLUME 100.6 fl (80.0-96.0); MONO # 0.7 10^3/uL (0.0-0.8); MONO % 10.9 % (0.0-5.0); NEUTROPHILS # 4.6 10^3/uL (1.8-7.7); NEUTROPHILS % 68.6 % (36.0-66.0); PLATELET COUNT, AUTOMATED 132 10^3/uL (150-450); RED BLOOD COUNT 3.45 10^6/uL (4.00-5.40); WHITE BLOOD COUNT 6.7 10^3/uL (4.0-10.0)
[2019-01-13 06:36] LABS: CALCIUM LEVEL 7.3 MG/DL (8.8-10.2); CREATININE FOR GFR 5.11 MG/DL (0.55-1.30); GLOMERULAR FILTRATION RATE 8.9 (>39); POTASSIUM SERUM 3.9 MEQ/L (3.5-5.1)
[2019-01-13] MEDS: LEVEMIR (INSULIN DETEMIR) 1 UNITS/0.01ML SC SCH ×2 (08:12→21:20)
[2019-01-13] MEDS: CALCIUM CARBONATE 500 MG CHEW U/D PO SCH ×3 (08:13→17:43)
[2019-01-13] MEDS: HumaLOG INSULIN (NovoLOG) PER UNIT SC SCH ×4 (08:13→21:00)
[2019-01-13] MEDS: METOPROLOL SUCC (TopROL XL) 100MG *XL* TAB PO SCH ×2 (08:14→21:14)
[2019-01-13] MEDS: **hydrALAZINE HCL** 25 MG TAB PO SCH ×3 (08:14→21:15)
[2019-01-13] MEDS: PANTOPRAZOLE 40MG TAB (PROTONIX) PO SCH (08:14)
[2019-01-13] MEDS: GABAPENTIN 100 MG CAP PO SCH ×2 (08:14→21:15)
[2019-01-13] MEDS: CALCIUM ACETATE 667 MG GELCAP PO SCH ×3 (08:14→17:43)
--- NOTE | 2019-01-13 08:14 | IPN ---
DATE: 01/12/2019 This is a patient well known to me. History of falls and history of Charcot foot deformity of the left foot and osteomyelitis of the right foot. She is seen today for evaluation. Physical exam reveals a bandage on the left lower extremity. The bandage was removed revealing an ulceration on the plantar surface of the left foot. There is hyperkeratotic tissue surrounding the ulcer as well as some necrotic tissue along the periphery, but no active signs of bleeding. The patient's pedal pulses are not palpable. Incisional debridement was performed to the subcutaneous tissues. The wound measures 4.6 cm from medial to lateral, 4.4 cm from distal to proximal with a 0.3 cm depth with a medial hyperkeratotic rim measuring 1.4 cm and a lateral hyperkeratotic rim measuring 0.5 cm. After debridement the ulcer is slightly enlarged to 4.7 cm from medial to lateral, 4.5 cm from distal to proximal and 0.3 cm in length. A dry sterile dressing was applied. Recommending to float the patient's feet on a pillow. Patient to wear foam type dressing which can be changed every three days or when saturated. Weightbearing can be applied to the left lower extremity for pivot and transfer, however due to her ulceration, ambulating will decrease healing rate. PAST MEDICAL HISTORY: End stage renal disease on hemodialysis. Diabetic neuropathy. Charcot joint deformity of the left extremity with stage III ulceration. History of osteomyelitis right foot. Secondary hyperparathyroidism. Obstructive sleep apnea (JUAN). Restless leg syndrome. Depression. ALLERGIES: 1. VANCOMYCIN. 2. PREGABALIN. HOME MEDICATIONS: - calcium acetate 667 mg Tuesday and Tuesday - Plavix 75 mg daily - Colace as needed - gabapentin 100 mg twice a day - hydralazine 25 mg three times a day - insulin - Synthroid 100 mcg orally daily - pantoprazole 40 mg daily - ropinirole 6 mg twice a day - simvastatin 20 mg at bedtime - trazodone 100 mg at bedtime ASSESSMENT: Stage III ulceration with Charcot joint deformity of left extremity. PLAN: After appropriate time out and utilizing a Oliva dermal curette, incisional debridement was performed through the subcutaneous tissues. After hemostasis was obtained with pressure and gauze dressing, foam dressing was applied to the patient's left and right extremity. Continue to float feet with pillows under the lower leg.
[2019-01-13] MEDS: rOPINIRole 2MG TAB PO SCH ×2 (08:19→21:15)
[2019-01-13] MEDS ORDERED: HEPARIN 1,000 UNITS/ML 10ML VIAL (FOR RADIOLOGY& DIALYSIS ONLY) IV ONE (11:15)
[2019-01-13] MEDS ORDERED: LIDOCAINE 1% SDV 5 ML VIAL SQ ONE (11:15)
[2019-01-13 12:33] LABS: APPEARANCE, BODY FLUID HAZY (CLEAR); ASCITES FL COLOR PALE YELLOW (COLORLESS); SOURCE, BODY FLUID ASCITES
[2019-01-13 12:34] LABS: SPEC. GRAVITY BODY FLUIDS 1.013 (NOT ESTABLISHED)
[2019-01-13 12:42] LABS: SOURCE, BODY FLUID ALBUMIN ASCITES; SOURCE, BODY FLUID GLUCOSE ASCITES; SOURCE, BODY FLUID TOT PROTEIN ASCITES; TOTAL PROTEIN, BODY FLUID 1.3 G/DL (NOT ESTABLISHED)
--- NOTE | 2019-01-13 13:29 | IPN ---
DATE OF VISIT: 01/13/2019 Mrs. Hernandez is seen this morning on her bedside. She has complaint of pain in her left foot and abdominal distention. She was dialyzed yesterday only for 1 hour as the patient developed severe pain in her left chest where she had a rib fracture and insisted to come off dialysis only after 1 hour of treatment. We have planned another dialysis this afternoon. She denies any dyspnea, chest pain, nausea or vomiting. At this point, she is not using any supplemental oxygen. She has known history of cirrhosis of the liver with large ascites and there is a plan for paracentesis sometime. PHYSICAL EXAMINATION: Temperature 98.4 degrees Fahrenheit, heart rate 72 per minute and respiratory rate 18 per minute. Blood pressure 164/76 mmHg and oxygen saturation 97%. Head is atraumatic. Neck veins are markedly distended. She has no oral thrush or ulcers. Heart sounds are regular and lungs with only few basilar rales. Abdomen is markedly distended with ascites and it is nontender with normal bowel sounds. Extremities have no cyanosis or clubbing. Lower extremity edema is 2+ and left foot is wrapped in dressing. Neurologically she is awake, alert and at her baseline mentation. Today's labs show WBC count 6.7, hemoglobin 10.1 and hematocrit 34.7. Platelets are 132. Sodium 140, potassium 3.9, CO2 29, BUN 42 and creatinine 5.1. Calcium level is 7.3. PROBLEMS: 1. End-stage renal disease. We are planning to dialyze her this afternoon again as she received only 1 hour of dialysis treatment yesterday. The patient understands and she is agreeable to go for dialysis. 2. Congestive heart failure and hypervolemia. Her volume status remains decompensated, but she also has a large amount of ascites. We will try to remove fluid only as tolerated. If she gets her paracentesis done today, then we will try to remove only minimal amount of fluid due to risk of hypotension. 3. Cirrhosis of liver with ascites. The patient has a large amount of ascites and a paracentesis is planned for today. Recommend to give her IV albumin prior to paracentesis in order to prevent hypotension. 4. Anemia. Her anemia is stable at this point and will continue to manage it with once a week Aranesp during dialysis. 5. Left foot pain with Charcot joint. This is a chronic issue and the patient is receiving her pain medications. She is currently not on any antibiotics. 6. Hypertension. Blood pressure is well-controlled and is likely to improve further even after dialysis today.
[2019-01-13 14:07] LABS: ALBUMIN 1.8 GM/DL (3.2-5.2); BILIRUBIN,DIRECT 0.1 MG/DL (0.0-0.2); BILIRUBIN,TOTAL 0.3 MG/DL (0.2-1.0); TOTAL PROTEIN 5.5 GM/DL (6.4-8.2)
--- NOTE | 2019-01-13 18:33 | RO ---
DATE OF PROCEDURE: 01/13/2019 PREPROCEDURE DIAGNOSIS: ascites POSTPROCEDURE DIAGNOSIS: ascites PROCEDURE: Diagnostic and therapeutic paracentesis. SURGEON: Dr. Makayla Muir NOTEREADER: Dr. Deyvi De León SEDATION: None. ANESTHESIA: 1% local lidocaine. VENTILATION: None. ESTIMATED BLOOD LOSS: Minimum. DESCRIPTION OF PROCEDURE: Consent was obtained. Risks and benefits explained. Time-out was done. The patient was placed in supine position. Ultrasound was used to locate fluid around the left lower quadrant of the patient's abdomen. Site was marked. Subsequently site was cleaned with Chloraprep and the patient was covered in the usual manner. 1% lidocaine was first injected subcutaneously, then deep. Subsequently skin was nicked and introducer needle was inserted with negative pressure. Fluid returned. It was expressed. Subsequently plastic catheter was advanced over the introducer needle, introducer needle was removed. Subsequently fluid was drained. Vital signs were taken after every liter of fluid that was removed. The patient's blood pressure did not decrease in any way. The patient tolerated the procedure. Procedure was terminated when the flow of fluid stopped. A total of 6.6 liters of fluid was removed. Subsequently catheter was removed, dressing was placed. The patient tolerated the procedure with no complication. 6.6 liters of yellow clear fluid was removed. URBAND
[2019-01-13] MEDS: ONDANSETRON 4 MG ORAL DISINTEGRATING TAB (Q0162 PER 1MG) PO PRN (19:06)
[2019-01-13] MEDS: traZODone 100 MG TAB PO SCH (21:14)
[2019-01-13] MEDS: SIMVASTATIN 20 MG TAB PO SCH (21:15)
--- NOTE | 2019-01-13 22:17 | IPNPDOC ---
Text Note Date of Service The patient was seen on 01/13/19. NOTE Subjective: Says her left chest pain is not as bad as yesterday. She is breat agnieszka better but her abdominal distension is really bothering her so that she cant eat . Had also thrown up once yesterday. She feels a lot of pressure from her rhiannon. Has poor strength in the legs and often give way which has been very frequent in the past 2 weeks, She has gained a lot of weight in the past 1 month along with abdominal distension. Does admit to missing several HD treatments in the last 1 to 2 months. Patient had bedside paracentesis done rima with removal of 6.6 L of fluid. She feels a lot more comfortable after the procedure. Also had HD today no fluid removal PHYSICAL EXAM: VITALS: As below HEENT: Head is atraumatic, normocephalic.moist mucus membranes, anicteric eyes. Facy in puffy , generalized anasarca. Neck is supple with no JVD. Lungs were clear to auscultation. S1, S2, audible. Systolic murmur present, no rub or gallop Abdomen soft with positive bowel sounds, massively distended, with ascitis. Extremities 1+ pedal edema. Chronic stasis changes. Skin : Chronic ulcer on the left heel , on the right heel dried and scabbed over old heeled ulcer. skin is thick and tight in both the legs. Neurologic examination, patient awake and alert times three. Labs and Radiology: reviewed ASSESSMENT and PLAN: Patient is a 68 year-old female with a past medical history of end-stage renal disease, on hemodialysis on a Tuesday, Tuesday, Tuesday maintenance scheduled via left upper extremity fistula, secondary hyperparathyroidism, diabetes, neuropathy, coronary artery disease, hypertension, hypothyroidism, diastolic congestive heart failure, Cirrhosis of liver possibly due to Amador, JUAN, obesity, anemia of chronic renal failure, charcot joint of left ankle, gout or pseudogout, multiple episodes of diabetic ulcers and osteomyelitis with toe amputations, left heel chronic ulcer, Left 7th Rib fracture on 01/05 after a fall with small pneumothorax, gall stones, cervical spondylosis presented to the emergency room after having multiple falls this past 1 to 2 week. She says that she has a brace on her left foot due to her Charcot joint but she still has problems ambulating and has been falling quite often during this past 1- 2 weeks so she came to the ER for evaluation. Pateint noted to have anasarca, large amount of ascitis and SOB. Pateint did say she has been been some HD treatments of the past 6 weeks. She is known to be non complaint with dietary salt and fluid restrictions. Gait imbalance and falls. due to left Charcot joint with gait instability, has chronic left heel ulcer also causing difficulty in walking. PT evaluation Anasarca with large ascites causing some SOB . due to missing HD treatments and also underlying cirrhosis of liver with dietary indiscretion Had paracentesis on 01/13 with removal of 6.6L . Fluid is transudative with SAAG> 1.1 , no infection. suggestive of cirrhosis of liver. Chronic left heel ulcer continue dressing change. debridement done at bedside by blocking machine operator Dr Baeza right heel dry ulcer also debrided Acute left 7th rib fracture with associated small pneumothorax continue pain meds and will monitor. Back pain, diabetic neuropathy continue gabapentin. End-stage renal disease with hyperphosphatemia and secondary hyperparathyroidism on hemodialysis as per nephrology. continue tums and phoslo. Hypertension. On hydralazine and metoprolol. Cirrhosis of liver with ascites Hepatitis panel neg. no history of heavy alcohol abuse. ceruloplasmin level normal etiology undetermined May be due to AMADOR Anemia. Secondary to the chronic kidney disease. Continue to monitor. History of coronary artery disease, on statin, Plavix, metoprolol. Type 2 diabetes, on sliding scale and consistent carbohydrate diet. Hypothyroidism, on Synthroid. Dyslipidemia, on statin. Restless leg syndrome, on Requip. History of esophageal reflux disease, on Protonix. Obstructive sleep apnea (JUAN). No issues at present. Gout or pseudogout has h/o high uric acid. No issues at present. Depression. Continue current medications. VS,Fishbone, I+O VS, Fishbone, I+O Laboratory Tests 01/13/19 05:28 Red Blood Count 3.45 L, Mean Corpuscular Volume 100.6 H, Mean Corpuscular Hemoglobin 29.3, Mean Corpuscular Hemoglobin Concent 29.1 L, Red Cell Distribution Width 18.2 H, Neutrophils (%) (Auto) 68.6 H, Lymphocytes (%) (Auto) 15.0 L, Monocytes (%) (Auto) 10.9 H, Eosinophils (%) (Auto) 4.5 H, Basophils (%) (Auto) 0.4, Neutrophils # (Auto) 4.6, Lymphocytes # (Auto) 1.0 L, Monocytes # (Auto) 0.7, Eosinophils # (Auto) 0.3, Basophils # (Auto) 0.0 Vital Signs Date Time Temp Pulse Resp B/P (MAP) Pulse Ox O2 Delivery O2 Flow Rate FiO2 01/13/19 21:14 72 144/74 01/13/19 12:55 18 01/13/19 11:42 96 01/13/19 09:41 2.0 01/13/19 06:00 98.4 01/09/19 20:35 Nasal Cannula I&O- Last 24 Hours up to 6 AM 01/13/19 06:00 Intake Total 580 ml Output Total 1000 ml Balance -420 ml MEETA BARGER MD Jan 13, 2019 22:17
[2019-01-13] MEDS ORDERED: LOMOTIL 2.5MG/0.025MG TABLET PO ONE (23:15)
[2019-01-14 02:00] VITALS: BP 155/64
[2019-01-14] MEDS: LEVOTHYROXINE 125MCG TABLET (0.125MG) PO SCH (05:47)
[2019-01-14 06:00] VITALS: BP 150/66
[2019-01-14 06:01] LABS: BASO # 0.1 10^3/uL (0.0-0.2); BASO % 0.7 % (0.0-1.0); EOS # 0.3 10^3/uL (0.0-0.50); EOS % 4.7 % (0.0-3.0); HEMATOCRIT 34.6 % (36.0-47.0); HEMOGLOBIN 10.4 g/dl (12.0-15.5); LYMPH % 13.8 % (24.0-44.0); MEAN CORPUSCULAR HEMOGLOBIN 29.2 pg (27.0-33.0); MEAN CORPUSCULAR HGB CONC 30.1 g/dl (32.0-36.5); MEAN CORPUSCULAR VOLUME 97.2 fl (80.0-96.0); MONO % 13.4 % (0.0-5.0); NEUTROPHILS # 4.7 10^3/uL (1.8-7.7); NEUTROPHILS % 66.7 % (36.0-66.0); PLATELET COUNT, AUTOMATED 131 10^3/uL (150-450); RED BLOOD COUNT 3.56 10^6/uL (4.00-5.40); WHITE BLOOD COUNT 7.1 10^3/uL (4.0-10.0)
[2019-01-14 06:24] LABS: CALCIUM LEVEL 7.5 MG/DL (8.8-10.2); CREATININE FOR GFR 4.13 MG/DL (0.55-1.30); GLOMERULAR FILTRATION RATE 11.4 (>39)
[2019-01-14] MEDS: HumaLOG INSULIN (NovoLOG) PER UNIT SC SCH ×4 (07:30→21:00)
[2019-01-14] MEDS: GABAPENTIN 100 MG CAP PO SCH ×2 (09:03→21:33)
[2019-01-14] MEDS: rOPINIRole 2MG TAB PO SCH ×2 (09:03→21:32)
[2019-01-14] MEDS: CALCIUM ACETATE 667 MG GELCAP PO SCH ×3 (09:03→17:14)
[2019-01-14] MEDS: LEVEMIR (INSULIN DETEMIR) 1 UNITS/0.01ML SC SCH ×2 (09:03→21:31)
[2019-01-14] MEDS: **hydrALAZINE HCL** 25 MG TAB PO SCH ×3 (09:03→21:32)
[2019-01-14] MEDS: CALCIUM CARBONATE 500 MG CHEW U/D PO SCH ×3 (09:03→17:14)
[2019-01-14] MEDS: PANTOPRAZOLE 40MG TAB (PROTONIX) PO SCH (09:04)
[2019-01-14] MEDS: METOPROLOL SUCC (TopROL XL) 100MG *XL* TAB PO SCH ×2 (09:04→21:33)
[2019-01-14] MEDS: LOPERAMIDE 2 MG CAP PO PRN ×2 (13:05→21:32)
[2019-01-14] MEDS: PERCOCET 5MG/325MG TAB PO PRN ×2 (13:07→21:33)
--- NOTE | 2019-01-14 13:43 | IPN ---
DATE OF SERVICE: 01/12/2019 SUBJECTIVE: Dalila is see and examined this morning in the hemodialysis unit receiving her maintenance treatment. Her treatment was cut short after only about 90 minutes due to her complaint of left sided chest pain associated with her pneumothorax and the patient refused to complete the remainder of her hemodialysis treatment today. Reports she slept poorly overnight, has been very worried about her who was admitted in the ICU. VITAL SIGNS: Temperature 97.9, pulse 65, respiratory rate 18, blood pressure 148/86, saturating 96% on 2 liters nasal cannula. INTAKE AND OUTPUT: Intake yesterday was 840, hemodialysis today only removed 1 liter because her treatment was cut short. PHYSICAL EXAMINATION: GENERAL: Patient seen on dialysis awake, alert in mild distress from left sided chest pain. HEENT: Extraocular muscles intact. Tongue is moist. Jugular veins are elevated. CARDIAC: S1, S2 regular rate and rhythm. LUNGS: Clear to auscultation with diminished breath sounds at the bases. ABDOMEN: Very distended with significant ascites. Extremities show 1+ leg edema, chronic stasis changes. Both feet are wrapped in dressings. Her left upper extremity fistula is in use. NEUROLOGIC: She is awake, alert and oriented times three. LABORATORIES: White count 5.6, hemoglobin 10.0, platelets 124. Sodium 141, potassium 4.0, bicarbonate 29. Blood cultures with no growth for 48 hours times two sets. INPATIENT MEDICATIONS: Reviewed by myself and she is now receiving Zofran as needed. There are no other medication changes from previous. PROBLEMS: 1. End stage renal disease (ESRD) on hemodialysis on Tuesday, Tuesday, and Tuesday schedule. Patient had her treatment cut short today and was on 90 minutes with 1 liter of fluid removed. She refused to complete her hemodialysis treatment due to a complaint of left sided chest pain associated with her pneumothorax and also due to poor sleep overnight. She will be reassessed for dialysis again tomorrow on Tuesday due to today's incomplete treatment She remains grossly volume overloaded on exam, which is a chronic issue for her. Her usual goal fluid removal is about 3 liters as tolerated by hemodynamics. Her electrolytes are acceptable. Fistula is in good use. 2. Decompensated diastolic congestive heart failure with peripheral edema, anasarca, massive ascites. Please continue fluid restriction. She will be assessed for dialysis again tomorrow if she agrees for further volume control and I also have discussed with hospitalist regarding setting her up for a first time large volume paracentesis with albumin infusion. 3. Ascites likely related to diastolic congestive heart failure and noncompliance with fluid restriction and this hemodialysis patient and also probable cirrhosis. She pending IR guided paracentesis after Plavix been held for five days. She should be given albumin with large volume paracentesis as well. In view of her pneumothorax and supplemental oxygen requirements, I think a therapeutic paracentesis will give her symptomatic relief. Liver cirrhosis workup as per primary team. 4. Hypertension. Blood pressures are acceptable and no changes are being made to her regimen today. 5. Anemia related to chronic renal failure. Hemoglobin is 10.0 which is at target and no changes are being made to her regimen. 6. Recurrent falls on left Charcot joint and chronic heel ulcer. As per primary team.
[2019-01-14 14:00] VITALS: BP 126/60
--- NOTE | 2019-01-14 15:07 | IPNPDOC ---
Text Note Date of Service The patient was seen on 01/14/19. NOTE Subjective: Has been having diarrhea since last night. She does have chronic diarrhea at home. Has been tested multiple time in prior admissions for c diff always negative. No abdominal pain , no nausea or vomiting, no fever or chills. Most probably has diabetic neuropathy vs IBS. will give imodium. Over all feels better this am. Not as wiped out as yesterday. PHYSICAL EXAM: VITALS: As below HEENT: Head is atraumatic, normocephalic.moist mucus membranes, anicteric eyes. Facy in puffy , generalized anasarca. Neck is supple with no JVD. Lungs were clear to auscultation. S1, S2, audible. Systolic murmur present, no rub or gallop Abdomen soft with positive bowel sounds, massively distended, with ascitis. Extremities 1+ pedal edema. Chronic stasis changes. Skin : Chronic ulcer on the left heel , on the right heel dried and scabbed over old heeled ulcer. skin is thick and tight in both the legs. Neurologic examination, patient awake and alert times three. Labs and Radiology: reviewed ASSESSMENT and PLAN: Patient is a 68 year-old female with a past medical history of end-stage renal disease, on hemodialysis on a Tuesday, Tuesday, Tuesday maintenance scheduled via left upper extremity fistula, secondary hyperparathyroidism, diabetes, neuropathy, coronary artery disease, hypertension, hypothyroidism, diastolic congestive heart failure, Cirrhosis of liver possibly due to [place], JUAN, obesity, anemia of chronic renal failure, charcot joint of left ankle, gout or pseudogout, multiple episodes of diabetic ulcers and osteomyelitis with toe amputations, left heel chronic ulcer, Left 7th Rib fracture on 01/05 after a fall with small pneumothorax, gall stones, cervical spondylosis presented to the emergency room after having multiple falls this past 1 to 2 week. She says that she has a brace on her left foot due to her Charcot joint but she still has problems ambulating and has been falling quite often during this past 1- 2 weeks so she came to the ER for evaluation. Pateint noted to have anasarca, large amount of ascitis and SOB. Pateint did say she has been been some HD treatments of the past 6 weeks. She is known to be non complaint with dietary salt and fluid restrictions. Gait imbalance and falls. due to left Charcot joint with gait instability, has chronic left heel ulcer also causing difficulty in walking. PT evaluation Anasarca with large ascites causing some SOB . due to missing HD treatments and also underlying cirrhosis of liver with dietary indiscretion Had paracentesis on 01/13 with removal of 6.6L . Fluid is transudative with SAAG> 1.1 , no infection. suggestive of cirrhosis of liver. Chronic left heel ulcer continue dressing change. debridement done at bedside by youtuber Dr Baeza right heel dry ulcer also debrided Diarrhea Chronic most probably due to neuropathy or IBS. will give imordium prn stopped stool softeners. Acute left 7th rib fracture with associated small pneumothorax continue pain meds and will monitor. Back pain, diabetic neuropathy continue gabapentin. End-stage renal disease with hyperphosphatemia and secondary hyperparathyroidism on hemodialysis as per nephrology. continue tums and phoslo. Hypertension. On hydralazine and metoprolol. Cirrhosis of liver with ascites Hepatitis panel neg. no history of heavy alcohol abuse. ceruloplasmin level normal etiology undetermined May be due to AMADOR Anemia. Secondary to the chronic kidney disease. Continue to monitor. History of coronary artery disease, on statin, Plavix, metoprolol. will continue to hold plavix as bee need another tap next week. Type 2 diabetes, on sliding scale and consistent carbohydrate diet. Hypothyroidism, on Synthroid. Dyslipidemia, on statin. Restless leg syndrome, on Requip. History of esophageal reflux disease, on Protonix. Obstructive sleep apnea (JUAN). No issues at present. Gout or pseudogout has h/o high uric acid. No issues at present. Depression. Continue current medications. VS,Fishbone, I+O VS, Fishbone, I+O Laboratory Tests 01/14/19 05:26 Red Blood Count 3.56 L, Mean Corpuscular Volume 97.2 H, Mean Corpuscular Hemoglobin 29.2, Mean Corpuscular Hemoglobin Concent 30.1 L, Red Cell Distribution Width 18.1 H, Neutrophils (%) (Auto) 66.7 H, Lymphocytes (%) (Auto) 13.8 L, Monocytes (%) (Auto) 13.4 H, Eosinophils (%) (Auto) 4.7 H, Basophils (%) (Auto) 0.7, Neutrophils # (Auto) 4.7, Lymphocytes # (Auto) 1.0 L, Monocytes # (A uto) 1.0 H, Eosinophils # (Auto) 0.3, Basophils # (Auto) 0.1, Calcium Level 7.5 L Vital Signs Date Time Temp Pulse Resp B/P (MAP) Pulse Ox O2 Delivery O2 Flow Rate FiO2 01/14/19 13:07 18 01/14/19 09:04 61 150/66 01/14/19 06:00 97.9 94 01/14/19 02:00 2.0 01/09/19 20:35 Nasal Cannula I&O- Last 24 Hours up to 6 AM 01/14/19 06:00 Intake Total 600 ml Output Total 7100 ml Balance -6500 ml MEETA BARGER MD Jan 14, 2019 15:07
[2019-01-14 16:43] VITALS: BP 129/60
[2019-01-14] MEDS: traZODone 100 MG TAB PO SCH (21:32)
[2019-01-14] MEDS: SIMVASTATIN 20 MG TAB PO SCH (21:32)
[2019-01-14 22:00] VITALS: BP 151/69
[2019-01-15 06:00] VITALS: BP 128/64
[2019-01-15 06:45] LABS: BASO % 0.6 % (0.0-1.0); EOS # 0.4 10^3/uL (0.0-0.50); EOS % 5.8 % (0.0-3.0); HEMATOCRIT 34.3 % (36.0-47.0); LYMPH # 1.1 10^3/uL (1.5-4.5); LYMPH % 16.8 % (24.0-44.0); MEAN CORPUSCULAR HEMOGLOBIN 29.1 pg (27.0-33.0); MEAN CORPUSCULAR HGB CONC 29.2 g/dl (32.0-36.5); MEAN CORPUSCULAR VOLUME 99.7 fl (80.0-96.0); MONO # 0.8 10^3/uL (0.0-0.8); MONO % 12.3 % (0.0-5.0); NEUTROPHILS # 4.3 10^3/uL (1.8-7.7); NEUTROPHILS % 63.8 % (36.0-66.0); PLATELET COUNT, AUTOMATED 123 10^3/uL (150-450); RED BLOOD COUNT 3.44 10^6/uL (4.00-5.40); WHITE BLOOD COUNT 6.7 10^3/uL (4.0-10.0)
[2019-01-15] MEDS: rOPINIRole 2MG TAB PO SCH ×2 (06:53→20:30)
[2019-01-15] MEDS: LEVOTHYROXINE 125MCG TABLET (0.125MG) PO SCH (06:54)
[2019-01-15] MEDS: **hydrALAZINE HCL** 25 MG TAB PO SCH ×3 (06:54→20:33)
[2019-01-15] MEDS: METOPROLOL SUCC (TopROL XL) 100MG *XL* TAB PO SCH ×2 (06:54→20:32)
[2019-01-15] MEDS: GABAPENTIN 100 MG CAP PO SCH ×2 (06:54→20:33)
[2019-01-15] MEDS: PANTOPRAZOLE 40MG TAB (PROTONIX) PO SCH (06:55)
[2019-01-15 07:06] LABS: CALCIUM LEVEL 7.3 MG/DL (8.8-10.2); CREATININE FOR GFR 5.44 MG/DL (0.55-1.30); GLOMERULAR FILTRATION RATE 8.3 (>39); POTASSIUM SERUM 4.4 MEQ/L (3.5-5.1)
[2019-01-15] MEDS: HumaLOG INSULIN (NovoLOG) PER UNIT SC SCH ×4 (07:30→20:33)
[2019-01-15] MEDS: CALCIUM CARBONATE 500 MG CHEW U/D PO SCH ×3 (08:30→18:10)
[2019-01-15] MEDS: CALCIUM ACETATE 667 MG GELCAP PO SCH ×3 (08:31→18:09)
[2019-01-15] MEDS: LEVEMIR (INSULIN DETEMIR) 1 UNITS/0.01ML SC SCH (09:00)
[2019-01-15] MEDS ORDERED: LIDOCAINE 1% SDV 5 ML VIAL SQ ONE (10:45)
[2019-01-15] MEDS ORDERED: HEPARIN 1,000 UNITS/ML 10ML VIAL (FOR RADIOLOGY& DIALYSIS ONLY) IV ONE (10:45)
[2019-01-15] MEDS: PERCOCET 5MG/325MG TAB PO PRN ×2 (13:18→20:31)
--- NOTE | 2019-01-15 18:31 | IPNPDOC ---
Text Note Date of Service The patient was seen on 01/15/19. NOTE Subjective: Still having diarrhea. Going for HD today. She does have chronic diarrhea at home. Has been tested multiple time in prior admissions for c diff always negative. No abdominal pain , no nausea or vomiting, no fever or chills. Most probably has diabetic neuropathy vs IBS. PHYSICAL EXAM: VITALS: As below HEENT: Head is atraumatic, normocephalic.moist mucus membranes, anicteric eyes. Facy in puffy , generalized anasarca. Neck is supple with no JVD. Lungs were clear to auscultation. S1, S2, audible. Systolic murmur present, no rub or gallop Abdomen soft with positive bowel sounds, massively distended, with ascitis. Extremities 1+ pedal edema. Chronic stasis changes. Skin : Chronic ulcer on the left heel , on the right heel dried and scabbed over old heeled ulcer. skin is thick and tight in both the legs. Neurologic examination, patient awake and alert times three. Labs and Radiology: reviewed ASSESSMENT and PLAN: Patient is a 68 year-old female with a past medical history of end-stage renal disease, on hemodialysis on a Tuesday, Tuesday, Tuesday jori ntenance scheduled via left upper extremity fistula, secondary hyperparathyroidism, diabetes, neuropathy, coronary artery disease, hypertension, hypothyroidism, diastolic congestive heart failure, Cirrhosis of liver possibly due to [place], JUAN, obesity, anemia of chronic renal failure, charcot joint of left ankle, gout or pseudogout, multiple episodes of diabetic ulcers and osteomyelitis with toe amputations, left heel chronic ulcer, Left 7th Rib fracture on 01/05 after a fall with small pneumothorax, gall stones, cervical spondylosis presented to the emergency room after having multiple falls this past 1 to 2 week. She says that she has a brace on her left foot due to her Charcot joint but she still has problems ambulating and has been falling quite often during this past 1- 2 weeks so she came to the ER for evaluation. Pateint noted to have anasarca, large amount of ascitis and SOB. Pateint did say she has been been some HD treatments of the past 6 weeks. She is known to be non complai nt with dietary salt and fluid restrictions. Gait imbalance and falls. due to left Charcot joint with gait instability, has chronic left heel ulcer also causing difficulty in walking. PT evaluation Anasarca with large ascites causing some SOB . due to missing HD treatments and also underlying cirrhosis of liver with dietary indiscretion Had paracentesis on 01/13 with removal of 6.6L . Fluid is transudative with SAAG> 1.1 , no infection. suggestive of cirrhosis of liver. will get another paracentesis this week. Chronic left heel ulcer continue dressing change. debridement done at bedside by outbound telemarketing representative Dr Baeza right heel dry ulcer also debrided Diarrhea Chronic most probably due to neuropathy or IBS. will give imordium prn stopped stool softeners. Acute left 7th rib fracture with associated small pneumothorax continue pain meds and will monitor. Back pain, diabetic neuropathy continue gabapentin. End-stage renal disease with hyperphosphatemia and secondary hyperparathyroidism on hemodialysis as per nephrology. continue tums and phoslo. Hypertension. On hydralazine and metoprolol. Cirrhosis of liver with ascites Hepatitis panel neg. no history of heavy alcohol abuse. ceruloplasmin level normal etiology undetermined May be due to AMADOR Anemia. Secondary to the chronic kidney disease. Continue to monitor. History of coronary artery disease, on statin, Plavix, metoprolol. will continue to hold plavix as bee need another tap next week. Type 2 diabetes, on sliding scale and consistent carbohydrate diet. Hypothyroidism, on Synthroid. Dyslipidemia, on statin. Restless leg syndrome, on Requip. History of esophageal reflux disease, on Protonix. Obstructive sleep apnea (JUAN). No issues at present. Gout or pseudogout has h/o high uric acid. No issues at present. Depression. Continue current medications. VS,Fishbone, I+O VS, Fishbone, I+O Laboratory Tests 01/15/19 06:25 Red Blood Count 3.44 L, Mean Corpuscular Volume 99.7 H, Mean Corpuscular Hemoglobin 29.1, Mean Corpuscular Hemoglobin Concent 29.2 L, Red Cell Distribution Width 17.9 H, Neutrophils (%) (Auto) 63.8, Lymphocytes (%) (Auto) 16.8 L, Monocytes (%) (Auto) 12.3 H, Eosinophils (%) (Auto) 5.8 H, Basophils (%) (Auto) 0.6, Neutrophils # (Auto) 4.3, Lymphocytes # (Auto) 1.1 L, Monocytes # (Auto) 0.8, Eosinophils # (Auto) 0.4, Basophils # (Auto) 0.0, Calcium Level 7.3 L Vital Signs Date Time Temp Pulse Resp B/P (MAP) Pulse Ox O2 Delivery O2 Flow Rate FiO2 01/15/19 18:09 113/77 01/15/19 14:00 16 01/15/19 06:54 60 01/15/19 06:00 96.7 96 01/14/19 02:00 2.0 01/09/19 20:35 Nasal Cannula I&O- Last 24 Hours up to 6 AM 01/15/19 06:00 Intake Total 780 ml Output Total 0 ml Balance 780 ml MEETA BARGER MD Jan 15, 2019 18:31
[2019-01-15] MEDS: traZODone 100 MG TAB PO SCH (20:32)
[2019-01-15] MEDS: SIMVASTATIN 20 MG TAB PO SCH (20:33)
[2019-01-15 22:00] VITALS: BP 107/52
[2019-01-16] MEDS: LEVOTHYROXINE 125MCG TABLET (0.125MG) PO SCH (05:58)
[2019-01-16 06:00] VITALS: BP 138/65
[2019-01-16 06:53] LABS: BASO # 0.1 10^3/uL (0.0-0.2); BASO % 0.8 % (0.0-1.0); EOS # 0.4 10^3/uL (0.0-0.50); EOS % 5.9 % (0.0-3.0); HEMATOCRIT 36.7 % (36.0-47.0); HEMOGLOBIN 10.8 g/dl (12.0-15.5); LYMPH # 1.1 10^3/uL (1.5-4.5); MEAN CORPUSCULAR HEMOGLOBIN 29.3 pg (27.0-33.0); MEAN CORPUSCULAR HGB CONC 29.4 g/dl (32.0-36.5); MEAN CORPUSCULAR VOLUME 99.5 fl (80.0-96.0); MONO # 0.8 10^3/uL (0.0-0.8); MONO % 12.5 % (0.0-5.0); NEUTROPHILS # 4.1 10^3/uL (1.8-7.7); NEUTROPHILS % 62.9 % (36.0-66.0); PLATELET COUNT, AUTOMATED 120 10^3/uL (150-450); RED BLOOD COUNT 3.69 10^6/uL (4.00-5.40); WHITE BLOOD COUNT 6.5 10^3/uL (4.0-10.0)
[2019-01-16 07:14] LABS: CALCIUM LEVEL 7.4 MG/DL (8.8-10.2); CREATININE FOR GFR 4.07 MG/DL (0.55-1.30); GLOMERULAR FILTRATION RATE 11.6 (>39); POTASSIUM SERUM 4.4 MEQ/L (3.5-5.1)
--- NOTE | 2019-01-16 08:13 | IPNPDOC ---
Date Seen The patient was seen on 01/16/19. Progress Note Subjective: hypothermic 96 normal white count. no pain in left foot. re-consulted dr. pacheco to re-eval the foot. c/o abd distention and mild sob, unable to lie down falt due to ascitic fluid. Still having diarrhea 3x yesterday. She does have chronic diarrhea at home. Has been tested multiple time in prior admissions for c diff always negative. No abdominal pain , no nausea or vomiting, no fever or chills. Most probably has diabetic neuropathy vs IBS. PHYSICAL EXAM: VITALS: As below HEENT: Head is atraumatic, normocephalic.moist mucus membranes, anicteric eyes. Facy in puffy , generalized anasarca. Neck is supple with no JVD. Lungs were clear to auscultation. S1, S2, audible. Systolic murmur present, no rub or gallop Abdomen soft with positive bowel sounds, massively distended, with ascitis. Extremities 1+ pedal edema. Chronic stasis changes. Skin : Chronic ulcer on the left heel , on the right heel dried and scabbed over old heeled ulcer. skin is thick and tight in both the legs. Neurologic examination, patient awake and alert times three. Labs and Radiology: reviewed ASSESSMENT and PLAN: Patient is a 68 year-old female with a past medical history of end-stage renal disease, on hemodialysis on a Tuesday, Tuesday, Tuesday maintenance scheduled via left upper extremity fistula, secondary hyperparathyroidism, diabetes, neuropathy, coronary artery disease, hypertensi on, hypothyroidism, diastolic congestive heart failure, Cirrhosis of liver possibly due to [place], JUAN, obesity, anemia of chronic renal failure, charcot joint of left ankle, gout or pseudogout, multiple episodes of diabetic ulcers and osteomyelitis with toe amputations, left heel chronic ulcer, Left 7th Rib fracture on 01/05 after a fall with small pneumothorax, gall stones, cervical spondylosis presented to the emergency room after having multiple falls this past 1 to 2 week. She says that she has a brace on her left foot due to her Charcot joint but she still has problems ambulating and has been falling quite often during this past 1- 2 weeks so she came to the ER for evaluation. Pateint noted to have anasarca, large amount of ascitis and SOB. Pateint did say she has been been some HD treatments of the past 6 weeks. She is known to be non complaint with dietary salt and fluid restrictions. Gait imbalance and falls. due to left Charcot joint with gait instability, has chronic left heel ulcer also causing difficulty in walking. PT evaluation Anasarca with large ascites causing some SOB . due to missing HD treatments and also underlying cirrhosis of liver with dietary indiscretion Had paracentesis on 01/13 with removal of 6.6L . Fluid is transudative with SAAG> 1.1 , no infection. suggestive of cirrhosis of liver. re-ordered paracentesis. Chronic left heel ulcer continue dressing change. debridement done at bedside by chief nursing officer Dr Pacheco right heel dry ulcer also debrided re-consulted tara 01/16/19 Diarrhea Chronic most probably due to neuropathy or IBS. will give imordium prn stopped stool softeners. Acute left 7th rib fracture with associated small pneumothorax continue pain meds and will monitor. Back pain, diabetic neuropathy continue gabapentin. End-stage renal disease with hyperphosphatemia and secondary hyperparathyroidism on hemodialysis as per nephrology. continue tums and phoslo. Hypertension. On hydralazine and metoprolol. Cirrhosis of liver with ascites Hepatitis panel neg. no history of heavy alcohol abuse. ceruloplasmin level normal etiology undetermined May be due to MARINO Anemia. Secondary to the chronic kidney disease. Continue to monitor. History of coronary artery disease, on statin, Plavix, metoprolol. will continue to hold plavix as bee need another tap next week. Type 2 diabetes, on sliding scale and consistent carbohydrate diet. Hypothyroidism, on Synthroid. Dyslipidemia, on statin. Restless leg syndrome, on Requip. History of esophageal reflux disease, on Protonix. Obstructive sleep apnea (JUAN). No issues at present. Gout or pseudogout has h/o high uric acid. No issues at present. Depression. Continue current medications. VS, I&O, 24H, Fishbone Vital Signs/I&O Vital Signs Date Time Temp Pulse Resp B/P (MAP) Pulse Ox O2 Delivery O2 Flow Rate FiO2 01/16/19 06:00 96.3 57 20 138/65 (89) 96 01/14/19 02:00 2.0 I&O- Last 24 Hours up to 6 AM 01/16/19 06:00 Intake Total 900 ml Output Total 2000 ml Balance -1100 ml Laboratory Data 24H LABS Laboratory Tests 2 01/15/19 08:07: Bedside Glucose (Misc Panel) 63L 01/15/19 10:23: Bedside Glucose (Misc Panel) 108 01/15/19 11:35: Bedside Glucose (Misc Panel) 119H 01/15/19 17:57: Bedside Glucose (Misc Panel) 80L 01/15/19 19:57: Bedside Glucose (Misc Panel) 113H 01/16/19 06:17: Immature Granulocyte % (Auto) 0.9, White Blood Count 6.5, Red Blood Count 3.69L, Hemoglobin 10.8L, Hematocrit 36.7, Mean Corpuscular Volume 99.5H, Mean Corpuscular Hemoglobin 29.3, Mean Corpuscular Hemoglobin Concent 29.4L, Red Cell Distribution Width 17.9H, Platelet Count 120L, Neutrophils (%) (Auto) 62.9, Lymphocytes (%) (Auto) 17.0L, Monocytes (%) (Auto) 12.5H, Eosinophils (%) (Auto) 5.9H, Basophils (%) (Auto) 0.8, Neutrophils # (Auto) 4.1, Lymphocytes # (Auto) 1.1L, Monocytes # (Auto) 0.8, Eosinophils # (Auto) 0.4, Basophils # (Auto) 0.1, Nucleated Red Blood Cells % (auto) 0.0, Anion Gap 7L, Glomerular Filtration Rate 11.6L, Blood Urea Nitrogen 35H, Creatinine 4.07H, Sodium Level 137, Potassium Level 4.4, Chloride Level 100, Carbon Dioxide Level 30, Calcium Level 7.4L CBC/BMP Laboratory Tests 01/16/19 06:17 Red Blood Count 3.69 L, Mean Corpuscular Volume 99.5 H, Mean Corpuscular Hemoglobin 29.3, Mean Corpuscular Hemoglobin Concent 29.4 L, Red Cell Distribution Width 17.9 H, Neutrophils (%) (Auto) 62.9, Lymphocytes (%) (Auto) 17.0 L, Monocytes (%) (Auto) 12.5 H, Eosinophils (%) (Auto) 5.9 H, Basophils (%) (Auto) 0.8, Neutrophils # (Auto) 4.1, Lymphocytes # (Auto) 1.1 L, Monocytes # (Auto) 0.8, Eosinophils # (Auto) 0.4, Basophils # (Auto) 0.1, Calcium Level 7.4 L Microbiology Microbiology 01/09/19 Blood Culture - Final, Complete NO GROWTH AFTER 5 DAYS 01/09/19 Blood Culture - Final, Complete NO GROWTH AFTER 5 DAYS 01/13/19 Gram Stain - Final, Complete 01/13/19 Body Fluid Culture - Final, Complete 01/13/19 Acid Fast Stain, Received Pending 01/13/19 Mycobacterial Culture, Received Pending 01/13/19 Fungal Smear, Received Pending 01/13/19 Fungal Culture, Received Pending CHARLEY DENNISON MD Jan 16, 2019 08:00
[2019-01-16 08:28] VITALS: BP 107/47
[2019-01-16] MEDS: rOPINIRole 2MG TAB PO SCH ×2 (08:50→21:14)
[2019-01-16] MEDS: PANTOPRAZOLE 40MG TAB (PROTONIX) PO SCH (08:50)
[2019-01-16] MEDS: GABAPENTIN 100 MG CAP PO SCH ×2 (08:51→21:15)
[2019-01-16] MEDS: CALCIUM CARBONATE 500 MG CHEW U/D PO SCH ×3 (08:51→17:34)
[2019-01-16] MEDS: CALCIUM ACETATE 667 MG GELCAP PO SCH ×3 (08:51→17:34)
[2019-01-16] MEDS: **hydrALAZINE HCL** 25 MG TAB PO SCH ×3 (08:53→21:15)
[2019-01-16] MEDS: METOPROLOL SUCC (TopROL XL) 100MG *XL* TAB PO SCH ×2 (08:56→21:15)
[2019-01-16 09:18] LABS: ALBUMIN 1.9 GM/DL (3.2-5.2); TOTAL PROTEIN 5.6 GM/DL (6.4-8.2)
[2019-01-16] MEDS: HumaLOG INSULIN (NovoLOG) PER UNIT SC SCH ×4 (09:59→21:00)
[2019-01-16] MEDS: LEVEMIR (INSULIN DETEMIR) 1 UNITS/0.01ML SC SCH (10:01)
--- NOTE | 2019-01-16 10:27 | IPN ---
DATE OF VISIT: 01/14/2019 Mrs. Hernandez is seen this morning on her bedside. She is sitting in the wheelchair at the time of my visit and getting ready to visit her in intensive care unit. She underwent paracentesis yesterday and 6.5 liters fluid was removed. She also had hemodialysis after that, during which no further fluid was removed due to risk of hypotension. She was given 2 units of IV albumin during dialysis as she has no IV access while paracentesis was performed just before dialysis. The patient tolerated both procedures well yesterday and she is feeling much better today. She denies any dyspnea or chest pain. Her abdominal distension has improved significantly. She does have pain in her right foot. On physical exam, temperature 98.2 degrees Fahrenheit, heart rate 60 per minute and respiratory rate 18 per minute. Blood pressure 126/60 mmHg and oxygen saturation 93% on room air. Head is atraumatic. Neck is supple and jugular venous distention (JVD) is mildly elevated. There is no oral thrush or ulcers. Heart sounds are regular and lungs sound clear to auscultation. Abdomen is much less distended today but ascites is still present. Bowel sounds are present and abdomen is nontender. Extremities have no cyanosis or clubbing. Arteriovenous (AV) fistula is patent and her lower extremity edema is unchanged. Her right foot is wrapped in dressing. Neurologically, she is awake, alert and at her baseline mentation. Today's labs show WBC count 7.1, hemoglobin 10.4 and hematocrit 34.6. Sodium 141, potassium 4.0, CO2 of 30, BUN 29 and creatinine 4.13. PROBLEMS: 1. End-stage renal disease. Patient was dialyzed yesterday for 3 hours. Her next dialysis will be scheduled for Tuesday as her regular dialysis days are Tuesday, Tuesday and Tuesday. She had missed most of the treatment on Tuesday due to which she was dialyzed yesterday for 3 hours. Her volume status is still decompensated with peripheral edema and ascites. We will try to remove some fluid with her next dialysis. 2. Cirrhosis of liver with ascites. Patient underwent paracentesis yesterday. She is going to have another paracentesis again next week. Her ascites has improved significantly. 3. Anemia. Her anemia is stable at this time and will continue to manage it in dialysis with Aranesp once week. 4. Hypertension. Blood pressure is very well controlled on current antihypertensive meds and no changes are being made today.
[2019-01-16 10:50] LABS: PREALBUMIN 12.3 MG/DL (20.0-40.0)
[2019-01-16] MEDS: LOPERAMIDE 2 MG CAP PO PRN ×2 (11:02→21:15)
[2019-01-16] MEDS: PERCOCET 5MG/325MG TAB PO PRN ×2 (11:02→21:14)
[2019-01-16 12:19] LABS: SOURCE, BODY FLUID PERITONEAL; SPEC. GRAVITY BODY FLUIDS 1.012 (NOT ESTABLISHED)
[2019-01-16 12:37] LABS: APPEARANCE, BODY FLUID HAZY (CLEAR); PERITONEAL FL COLOR PALE YELLOW (COLORLESS)
[2019-01-16 12:43] LABS: SOURCE, BODY FLUID ALBUMIN PERITONEAL; SOURCE, BODY FLUID GLUCOSE PERITONEAL; SOURCE, BODY FLUID TOT PROTEIN PERITONEAL; TOTAL PROTEIN, BODY FLUID 1.2 G/DL (NOT ESTABLISHED)
[2019-01-16 14:00] VITALS: BP 111/48
--- NOTE | 2019-01-16 14:57 | IPN ---
DATE: 01/15/2019 Mrs. Hernandez is seen this morning on her bedside. She is feeling about the same compared to yesterday. Her abdominal distension seems to have increased. She had a paracentesis done last week and 6-1/2 liters of fluid was removed. However, she has reaccumulated ascites since then. She denies any dyspnea, chest pain, nausea or vomiting. She has no fever or chills. PHYSICAL EXAMINATION: Temperature 96.7 degrees Fahrenheit, heart rate 60 per minute and respiratory rate 20 per minute. Blood pressure 128/64 mmHg and oxygen saturation 96% on room air. Head is atraumatic. Neck is supple and without any thyroid enlargement. Neck veins are mildly distended. Heart sounds are regular. Lungs are clear to auscultation. Abdomen is distended with large amount of ascites and bowel sounds are present. Extremities have no cyanosis or clubbing. Her right foot is wrapped in a dressing. Neurologically, she is awake, alert and oriented times three. LABORATORY DATA: Today's laboratories show WBC count 6.7, hemoglobin 10.0 and hematocrit 34.3. Platelets are 123. Sodium 142, potassium 4.4, chloride 106, CO2 30, BUN 52 and creatinine 5.44. Calcium level is 7.3. PROBLEMS: 1. End-stage renal disease. The patient is due for dialysis today and we are going to dialyze her this afternoon. We will try to remove about three liters of fluid today as we did not remove any fluid last time. 2. Anemia. At this point, her anemia is stable and she receives Aranesp once a week during dialysis which will be continued. 3. Cirrhosis of liver with recurrent ascites. The patient has significant ascites once again since her paracentesis last week. She is scheduled for another paracentesis tomorrow. 4. Hypertension. Blood pressure is reasonably well-controlled on current antihypertensive medications and no changes are being made today. All other issues are being addressed by the hospitalist service.
--- NOTE | 2019-01-16 17:50 | REP ---
Ultrasound-guided paracentesis The procedure was performed under the direct supervision of Dr. Ferris. The risks and benefits of the procedure were explained to the patient and informed consent was obtained. The largest pocket of fluid was localized in the right flank in using ultrasound guidance. The skin was prepped and draped in a sterile fashion. 1% lidocaine was used as a local anesthetic. Using ultrasound guidance an 8-Greek multi side-hole catheter was inserted using trocar technique. 3400 ml of yellow fluid was withdrawn with a sample sent to the lab for analysis. The patient tolerated the procedure well and there were no immediate complications. After the appropriate amount of monitored convalescence the patient was discharged from the department. Reviewed by ANTONIO Curiel 01/16/2019 05:37 P Electronically Signed by Matt Ferris MD 01/16/2019 05:40 P
--- NOTE | 2019-01-16 17:55 | IPN ---
DATE: 01/16/2019 Mrs. Hernandez is seen this morning on her bedside. She is feeling about the same and denies any new complaints. She has abdominal distension with large amount of ascites. She was dialyzed yesterday, and 2 liters of fluid was removed. The patient has no nausea, vomiting, fever, or chills. PHYSICAL EXAMINATION: Temperature 96.3 degrees Fahrenheit, heart rate 60 per minute, respiratory rate 16 per minute, blood pressure 107/47 mm of mercury, and oxygen saturation is 93% on room air. Head is atraumatic. Neck is supple, and jugular venous distention (JVD) is about 7 cm above sternal angle. She has no oral thrush or ulcers. Heart sounds are regular, and lungs sound clear to auscultation. Abdomen is distended with large amount of ascites, and bowel sounds are present. Extremities have no cyanosis or clubbing. There are chronic stasis changes and lower extremity edema, which is at least 3+. Her foot is wrapped in dressing due to Charcot ankle. Today's labs show WBC count 6.5, hemoglobin 10.8, and hematocrit 36.7. Sodium 137, potassium 4.4, CO2 of 30, BUN 35 and creatinine 4.07. PROBLEMS: 1. End-stage renal disease. The patient is dialysis dependent, and she was dialyzed yesterday. Her next dialysis will be scheduled for tomorrow. 2. Cirrhosis of liver with recurrent ascites. The patient has large amount of ascites and is going to have a paracentesis done later today. She is likely to require paracentesis once a week. 3. Hypervolemia and chronic leg edema. This is related to chronic congestive heart failure and noncompliance with fluid restriction in the setting of end-stage renal disease. We will continue our efforts to remove as much fluid as she can tolerate. 4. Anemia. Anemia is stable at this point, and no further intervention is indicated. She receives Aranesp once a week during dialysis.
[2019-01-16] MEDS: SIMVASTATIN 20 MG TAB PO SCH (21:14)
[2019-01-16] MEDS: traZODone 100 MG TAB PO SCH (21:15)
[2019-01-16 22:00] VITALS: BP 153/67
[2019-01-17 06:00] VITALS: BP 121/57
[2019-01-17 06:33] LABS: BASO # 0.1 10^3/uL (0.0-0.2); BASO % 0.7 % (0.0-1.0); EOS # 0.5 10^3/uL (0.0-0.50); EOS % 5.4 % (0.0-3.0); HEMATOCRIT 40.3 % (36.0-47.0); LYMPH # 1.2 10^3/uL (1.5-4.5); LYMPH % 12.6 % (24.0-44.0); MEAN CORPUSCULAR HEMOGLOBIN 28.9 pg (27.0-33.0); MEAN CORPUSCULAR HGB CONC 29.8 g/dl (32.0-36.5); MEAN CORPUSCULAR VOLUME 97.1 fl (80.0-96.0); MONO # 0.9 10^3/uL (0.0-0.8); MONO % 9.5 % (0.0-5.0); NEUTROPHILS # 6.5 10^3/uL (1.8-7.7); PLATELET COUNT, AUTOMATED 158 10^3/uL (150-450); RED BLOOD COUNT 4.15 10^6/uL (4.00-5.40); WHITE BLOOD COUNT 9.1 10^3/uL (4.0-10.0)
[2019-01-17] MEDS: LOPERAMIDE 2 MG CAP PO PRN (06:34)
[2019-01-17] MEDS: LEVOTHYROXINE 125MCG TABLET (0.125MG) PO SCH (06:35)
[2019-01-17] MEDS: **hydrALAZINE HCL** 25 MG TAB PO SCH ×3 (06:35→21:04)
[2019-01-17] MEDS: PANTOPRAZOLE 40MG TAB (PROTONIX) PO SCH (06:35)
[2019-01-17] MEDS: GABAPENTIN 100 MG CAP PO SCH ×2 (06:35→21:06)
[2019-01-17] MEDS: rOPINIRole 2MG TAB PO SCH ×2 (06:35→21:03)
[2019-01-17] MEDS: METOPROLOL SUCC (TopROL XL) 100MG *XL* TAB PO SCH ×2 (06:36→21:05)
[2019-01-17 06:55] LABS: CALCIUM LEVEL 7.8 MG/DL (8.8-10.2); CREATININE FOR GFR 5.21 MG/DL (0.55-1.30); GLOMERULAR FILTRATION RATE 8.7 (>39); POTASSIUM SERUM 4.1 MEQ/L (3.5-5.1)
--- NOTE | 2019-01-17 08:42 | IPNPDOC ---
Date Seen The patient was seen on 01/17/19. Progress Note Subjective: s/p paracentesis 3.4 liters removed 01/16/19 with improved abdominal distension, with no c/o dizziness, or lightheadedness. Pt c/o watery stools >5x after paracentesis yesterday. nonbloody non mucusy no fever or chills. no abd pain. some discomfort. PHYSICAL EXAM: VITALS: As below HEENT: Head is atraumatic, normocephalic.moist mucus membranes, anicteric eyes. Facy in puffy , generalized anasarca. Neck is supple with no JVD. Lungs were clear to auscultation. S1, S2, audible. Systolic murmur present, no rub or gallop Abdomen soft with positive bowel sounds,s/p paracentesis with less abdominal distension Extremities 1+ pedal edema. Chronic stasis changes. Skin : Chronic ulcer on the left heel , on the right heel dried and scabbed over old heeled ulcer. skin is thick and tight in both the legs. Neurologic examination, patient awake and alert times three. Labs and Radiology: reviewed ASSESSMENT and PLAN: Patient is a 68 year-old female with a past medical history of end-stage renal disease, on hemodialysis on a Tuesday, Tuesday, Tuesday maintenance scheduled via left upper extremity fistula, secondary hyperparathyroidism, diabetes, neuropathy, coronary artery disease, hypertension, hypothyroidism, diastolic congestive heart failure, Cirrhosis of liver possibly due to Amador, JUAN, obesity, anemia of chronic renal failure, charcot joint of left ankle, gout or pseudogout, multiple episodes of diabetic ulcers and osteomyelitis with toe amputations, left heel chronic ulcer, Left 7th Rib fracture on 01/05 after a fall with small pneumothorax, gall stones, cervical spondylosis presented to the emergency room after having multiple falls this past 1 to 2 week. She says that she has a brace on her left foot due to her Charcot joint but she still has problems ambulating and has been falling quite often during this past 1- 2 weeks so she came to the ER for evaluation. Pateint noted to have anasarca, large amount of ascitis and SOB. Pateint did say she has been been some HD treatments of the past 6 weeks. She is known to be non complaint with dietary salt and fluid restrictions. Gait imbalance and falls. due to left Charcot joint with gait instability, has chronic left heel ulcer also causing difficulty in walking. PT evaluation Anasarca with large ascites causing some SOB . due to missing HD treatments and also underlying cirrhosis of liver with dietary indiscretion Had paracentesis on 01/13 with removal of 6.6L . Fluid is transudative with SAAG> 1.1 , no infection. suggestive of cirrhosis of liver. repeated paracentesis 01/16/19 with removal of 3.4liters. Diarrhea no bowel regimen monitor for electrolyte abnormalities. Chronic left heel ulcer continue dressing change. debridement done at bedside by applied behavior specialist Dr Baeza right heel dry ulcer also debrided re-consulted tara 01/16/19 Diarrhea Chronic most probably due to neuropathy or IBS. will give imordium prn stopped stool softeners. Acute left 7th rib fracture with associated small pneumothorax continue pain meds and will monitor. Back pain, diabetic neuropathy continue gabapentin. End-stage renal disease with hyperphosphatemia and secondary hyperparathyroidism on hemodialysis as per nephrology. continue tums and phoslo. Hypertension. On hydralazine and metoprolol. Cirrhosis of liver with ascites Hepatitis panel neg. no history of heavy alcohol abuse. ceruloplasmin level normal etiology undetermined May be due to AMADOR Anemia. Secondary to the chronic kidney disease. Continue to monitor. History of coronary artery disease, on statin, Plavix, metoprolol. will continue to hold plavix as bee need another tap next week. Type 2 diabetes, on sliding scale and consistent carbohydrate diet. Hypothyroidism, on Synthroid. Dyslipidemia, on statin. Restless leg syndrome, on Requip. History of esophageal reflux disease, on Protonix. Obstructive sleep apnea (JUAN). No issues at present. Gout or pseudogout has h/o high uric acid. No issues at present. Depression. Continue current medications. Disposition: pt's primary caregiver, her , is currently admitted at [facility]. PFS consulted for outpt services. VS, I&O, 24H, Fishbone Vital Signs/I&O Vital Signs Date Time Temp Pulse Resp B/P (MAP) Pulse Ox O2 Delivery O2 Flow Rate FiO2 01/17/19 06:36 57 01/17/19 06:35 121/57 01/17/19 06:00 97.5 18 98 01/14/19 02:00 2.0 I&O- Last 24 Hours up to 6 AM 01/17/19 06:00 Intake Total 0 ml Output Total 0 ml Balance 0 ml Laboratory Data 24H LABS Laboratory Tests 2 01/16/19 11:40: Body Fluid Specific [place] 1.012, Body Fluid WBC (Auto) 203H, Body Fluid RBC (Auto) < 2, Body Fluid Mononuclear Cells % Auto 84.2H, Fluid Polymorphonuclear Cell % Auto 15.8H, Body Fluid Glucose Source PERITONEAL, Body Fluid Glucose 216, Body Fluid Protein Source PERITONEAL, Body Fluid Total Protein 1.2, Body Fluid Albumin Source PERITONEAL, Body Fluid Albumin 0.5, Peritoneal Fluid Source PERITONEAL, Peritoneal Fluid Color PALE YELLOW, Peritoneal Fluid Appearance HAZY 01/16/19 12:40: Bedside Glucose (Misc Panel) 149H 01/16/19 16:52: Bedside Glucose (Misc Panel) 258H 01/16/19 21:01: Bedside Glucose (Misc Panel) 220H 01/17/19 05:15: Bedside Glucose (Misc Panel) 182H 01/17/19 05:31: Immature Granulocyte % (Auto) 0.8, White Blood Count 9.1, Red Blood Count 4.15, Hemoglobin 12.0, Hematocrit 40.3, Mean Corpuscular Volume 97.1H, Mean Corpuscular Hemoglobin 28.9, Mean Corpuscular Hemoglobin Concent 29.8L, Red Cell Distribution Width 17.3H, Platelet Count 158, Neutrophils (%) (Auto) 71.0H, Lymphocytes (%) (Auto) 12.6L, Monocytes (%) (Auto) 9.5H, Eosinophils (%) (Auto) 5.4H, Basophils (%) (Auto) 0.7, Neutrophils # (Auto) 6.5, Lymphocytes # (Auto) 1.2L, Monocytes # (Auto) 0.9H, Eosinophils # (Auto) 0.5, Basophils # (Auto) 0.1, Nucleated Red Blood Cells % (auto) 0.0, Anion Gap 9, Glomerular Filtration Rate 8.7L, Blood Urea Nitrogen 56#H, Creatinine 5.21H, Sodium Level 137, Potassium Level 4.1, Chloride Level 98, Carbon Dioxide Level 30, Calcium Level 7.8L CBC/BMP Laboratory Tests 01/17/19 05:31 Red Blood Count 4.15, Mean Corpuscular Volume 97.1 H, Mean Corpuscular Hemoglobin 28.9, Mean Corpuscular Hemoglobin Concent 29.8 L, Red Cell Distribution Width 17.3 H, Neutrophils (%) (Auto) 71.0 H, Lymphocytes (%) (Auto) 12.6 L, Monocytes (%) (Auto) 9.5 H, Eosinophils (%) (Auto) 5.4 H, Basophils (%) (Auto) 0.7, Neutrophils # (Auto) 6.5, Lymphocytes # (Auto) 1.2 L, Monocytes # (Auto) 0.9 H, Eosinophils # (Auto) 0.5, Basophils # (Auto) 0.1, Calcium Level 7.8 L Microbiology Microbiology 01/09/19 Blood Culture - Final, Complete NO GROWTH AFTER 5 DAYS 01/09/19 Blood Culture - Final, Complete NO GROWTH AFTER 5 DAYS 01/16/19 Acid Fast Stain, Received Pending 01/16/19 Mycobacterial Culture, Received Pending 01/16/19 Fungal Smear, Received Pending 01/16/19 Fungal Culture, Received Pending 01/16/19 Gram Stain - Final, Resulted 01/16/19 Body Fluid Culture, Resulted Pending 01/16/19 Anaerobic Culture, Resulted Pending 01/13/19 Gram Stain - Final, Complete 01/13/19 Body Fluid Culture - Final, Complete 01/13/19 Acid Fast Stain, Received Pending 01/13/19 Mycobacterial Culture, Received Pending 01/13/19 Fungal Smear, Received Pending 01/13/19 Fungal Culture, Received Pending CHARLEY DENNISON MD Jan 17, 2019 08:32
[2019-01-17] MEDS: CALCIUM ACETATE 667 MG GELCAP PO SCH ×3 (09:07→17:41)
[2019-01-17] MEDS: CALCIUM CARBONATE 500 MG CHEW U/D PO SCH ×3 (09:07→17:40)
[2019-01-17] MEDS: PERCOCET 5MG/325MG TAB PO PRN ×2 (09:08→21:04)
[2019-01-17] MEDS: LEVEMIR (INSULIN DETEMIR) 1 UNITS/0.01ML SC SCH (09:09)
[2019-01-17] MEDS: HumaLOG INSULIN (NovoLOG) PER UNIT SC SCH ×4 (09:10→21:00)
[2019-01-17] MEDS ORDERED: HEPARIN 1,000 UNITS/ML 10ML VIAL (FOR RADIOLOGY& DIALYSIS ONLY) IV ONE (11:30)
[2019-01-17] MEDS ORDERED: LIDOCAINE 1% SDV 5 ML VIAL SQ ONE (11:30)
[2019-01-17 14:00] VITALS: BP 117/56
[2019-01-17] MEDS: CLOPIDOGREL 75 MG TAB PO SCH (14:14)
[2019-01-17 17:31] VITALS: BP 137/58
--- NOTE | 2019-01-17 20:52 | IPN ---
DATE: 01/17/2019 Mrs. Hernandez is seen this morning during hemodialysis on her bedside. She has complained of abdominal cramps and diarrhea since she had paracentesis done yesterday and 3400 mL of fluid was removed with paracentesis yesterday. Her abdominal distension has slightly improved. She denies any dyspnea or chest pain and has no fever or chills. PHYSICAL EXAMINATION: She is awake and without any acute distress. She is currently being dialyzed. We were trying to remove about two liters of fluid. However, now we have cut down her goal to 1.5 liters. Her blood pressure is down to 94/50 mmHg. Heart rate is per minute and respiratory rate is 18 per minute. Oxygen saturation is 98% on room air. Head is atraumatic. Neck veins are not abnormally distended. Heart sounds are regular and lungs clear to auscultation. Abdomen is distended with ascites and soft and nontender. Bowel sounds are present. Extremities have no cyanosis or clubbing. Right foot is wrapped in dressing and there is chronic stasis changes on lower extremities. LABORATORY DATA: Today's laboratories show WBC count 9.1, hemoglobin 12.0 and hematocrit 40.3. Sodium 137, potassium 4.1, CO2 of 30, BUN 56 and creatinine 5.21. Glucose 186 and calcium 7.8. PROBLEMS: 1. End-stage renal disease. The patient is being dialyzed today and she is tolerating her dialysis treatment very well. We are only going to be able to remove about 1.5 liters of fluid due to low blood pressure. 2. Anemia. Anemia has not been an issue and it is very stable. No intervention is indicated. 3. Cirrhosis of liver with recurrent ascites. The patient had a paracentesis done just yesterday when 3400 mL of fluid was removed. She is likely to require frequent paracentesis. 4. Diabetes. Her diabetes is much better controlled while here in the hospital. Out of hospital, she has been in poor control for a long time. She will continue with current insulin regimen.
[2019-01-17] MEDS: SIMVASTATIN 20 MG TAB PO SCH (21:03)
[2019-01-17] MEDS: traZODone 100 MG TAB PO SCH (21:04)
[2019-01-17 22:00] VITALS: BP 119/58
[2019-01-18] MEDS: LOPERAMIDE 2 MG CAP PO PRN (00:20)
[2019-01-18] MEDS: LEVOTHYROXINE 125MCG TABLET (0.125MG) PO SCH (05:33)
[2019-01-18] MEDS: PERCOCET 5MG/325MG TAB PO PRN ×2 (05:33→12:30)
[2019-01-18 06:00] VITALS: BP 149/63
[2019-01-18 06:30] LABS: BASO # 0.1 10^3/uL (0.0-0.2); EOS # 0.5 10^3/uL (0.0-0.50); EOS % 6.8 % (0.0-3.0); HEMATOCRIT 39.3 % (36.0-47.0); HEMOGLOBIN 11.9 g/dl (12.0-15.5); LYMPH # 1.2 10^3/uL (1.5-4.5); LYMPH % 16.3 % (24.0-44.0); MEAN CORPUSCULAR HEMOGLOBIN 29.7 pg (27.0-33.0); MEAN CORPUSCULAR HGB CONC 30.3 g/dl (32.0-36.5); MONO # 0.7 10^3/uL (0.0-0.8); MONO % 9.2 % (0.0-5.0); NEUTROPHILS # 4.7 10^3/uL (1.8-7.7); NEUTROPHILS % 65.9 % (36.0-66.0); PLATELET COUNT, AUTOMATED 123 10^3/uL (150-450); RED BLOOD COUNT 4.01 10^6/uL (4.00-5.40); WHITE BLOOD COUNT 7.1 10^3/uL (4.0-10.0)
[2019-01-18 06:46] LABS: CALCIUM LEVEL 7.7 MG/DL (8.8-10.2); CREATININE FOR GFR 3.9 MG/DL (0.55-1.30); GLOMERULAR FILTRATION RATE 12.1 (>39)
[2019-01-18] MEDS: HumaLOG INSULIN (NovoLOG) PER UNIT SC SCH ×4 (07:34→21:00)
[2019-01-18] MEDS: CALCIUM ACETATE 667 MG GELCAP PO SCH ×3 (08:00→18:26)
[2019-01-18] MEDS: CALCIUM CARBONATE 500 MG CHEW U/D PO SCH ×3 (08:00→18:26)
[2019-01-18] MEDS: METOPROLOL SUCC (TopROL XL) 100MG *XL* TAB PO SCH ×2 (09:00→21:41)
[2019-01-18 09:49] VITALS: BP 144/80
[2019-01-18] MEDS: **hydrALAZINE HCL** 25 MG TAB PO SCH ×3 (10:14→21:40)
[2019-01-18] MEDS: CLOPIDOGREL 75 MG TAB PO SCH (10:14)
[2019-01-18] MEDS: PANTOPRAZOLE 40MG TAB (PROTONIX) PO SCH (10:14)
[2019-01-18] MEDS: rOPINIRole 2MG TAB PO SCH ×2 (10:14→21:39)
[2019-01-18] MEDS: LEVEMIR (INSULIN DETEMIR) 1 UNITS/0.01ML SC SCH (10:15)
[2019-01-18] MEDS: GABAPENTIN 100 MG CAP PO SCH ×2 (10:15→21:39)
--- NOTE | 2019-01-18 11:34 | IPNPDOC ---
Date Seen The patient was seen on 01/18/19. Progress Note Subjective: pt continues to have increased malodorous drainage at left heel. dressing changed today. Dr. Baeza re-consulted. unable to discharge due to no caregiver at home. no other acute issues. on maintenance dialysis. foot ulcer evaluated by podiatry s/p paracentesis 3.4 liters removed 01/16/19 with improved abdominal distension, with no c/o dizziness, or lightheadedness. Pt c/o watery stools >5x after paracentesis yesterday. nonbloody non mucusy no fever or chills. no abd pain. some discomfort. PHYSICAL EXAM: VITALS: As below HEENT: Head is atraumatic, normocephalic.moist mucus membranes, anicteric eyes. Facy in puffy , generalized anasarca. Neck is supple with no JVD. Lungs were clear to auscultation. S1, S2, audible. Systolic murmur present, no rub or gallop Abdomen soft with positive bowel sounds,s/p paracentesis with less abdominal distension Extremities 1+ pedal edema. Chronic stasis changes. Skin : Chronic ulcer on the left heel , on the right heel dried and scabbed over old heeled ulcer. skin is thick and tight in both the legs. Neurologic examination, patient awake and alert times three. Labs and Radiology: reviewed ASSESSMENT and PLAN: Patient is a 68 year-old female with a past medical history of end-stage renal disease, on hemodialysis on a Tuesday, Tuesday, Tuesday maintenance scheduled via left upper extremity fistula, secondary hyperparathyroidism, diabetes, neuropathy, coronary artery disease, hypertension, hypothyroidism, diastolic congestive heart failure, Cirrhosis of liver possibly due to [place], JUAN, obesity, anemia of chronic renal failure, charcot joint of left ankle, gout or pseudogout, multiple episodes of diabetic ulcers and osteomyelitis with toe amputations, left heel chronic ulcer, Left 7th Rib fracture on 01/05 after a fall with small pneumothorax, gall stones, cervical spondylosis presented to the emergency room after having multiple falls this past 1 to 2 week. She says that she has a brace on her left foot due to her C harcot joint but she still has problems ambulating and has been falling quite often during this past 1- 2 weeks so she came to the ER for evaluation. Pateint noted to have anasarca, large amount of ascitis and SOB. Pateint did say she has been been some HD treatments of the past 6 weeks. She is known to be non complaint with dietary salt and fluid restrictions. Gait imbalance and falls. due to left Charcot joint with gait instability, has chronic left heel ulcer also causing difficulty in walking. PT evaluation Anasarca with large ascites causing some SOB . due to missing HD treatments and also underlying cirrhosis of liver with dietary indiscretion Had paracentesis on 01/13 with removal of 6.6L . Fluid is transudative with SAAG> 1.1 , no infection. suggestive of cirrhosis of liver. repeated paracentesis 01/16/19 with removal of 3.4liters. Diarrhea no bowel regimen monitor for electrolyte abnormalities. Chronic left heel ulcer continue dressing change. debridement done at bedside by lumber tailer Dr Baeza right heel dry ulcer also debrided re-consulted tara 01/16/19 and 01/18/19 check xray r/o osteomyelitis eucerin ointment on intact skin Diarrhea Chronic most probably due to neuropathy or IBS. will give imordium prn stopped stool softeners. Acute left 7th rib fracture with associated small pneumothorax continue pain meds and will monitor. Back pain, diabetic neuropathy continue gabapentin. End-stage renal disease with hyperphosphatemia and secondary hyperparathyroidism on hemodialysis as per nephrology. continue tums and phoslo. Hypertension. On hydralazine and metoprolol. Cirrhosis of liver with ascites Hepatitis panel neg. no history of heavy alcohol abuse. ceruloplasmin level normal etiology undetermined May be due to AMADOR Anemia. Secondary to the chronic kidney disease. Continue to monitor. History of coronary artery disease, on statin, Plavix, metoprolol. will continue to hold plavix as bee need another tap next week. Type 2 diabetes, on sliding scale and consistent carbohydrate diet. Hypothyroidism, on Synthroid. Dyslipidemia, on statin. Restless leg syndrome, on Requip. History of esophageal reflux disease, on Protonix. Obstructive sleep apnea (JUAN). No issues at present. Gout or pseudogout has h/o high uric acid. No issues at present. Depression. Continue current medications. Disposition: pt's primary caregiver, her , is currently admitted at [facility]. PFS consulted for outpt services. VS, I&O, 24H, Fishbone Vital Signs/I&O Vital Signs Date Time Temp Pulse Resp B/P (MAP) Pulse Ox O2 Delivery O2 Flow Rate FiO2 01/18/19 10:14 144/80 01/18/19 09:49 97.4 59 14 94 01/14/19 02:00 2.0 I&O- Last 24 Hours up to 6 AM 01/18/19 06:00 Intake Total 670 ml Output Total 1300 ml Balance -630 ml Laboratory Data 24H LABS Laboratory Tests 2 01/17/19 14:03: Bedside Glucose (Misc Panel) 83 01/17/19 17:18: Bedside Glucose (Misc Panel) 173H 01/17/19 19:54: Bedside Glucose (Misc Panel) 149H 01/18/19 06:08: Immature Granulocyte % (Auto) 0.8, White Blood Count 7.1, Red Blood Count 4.01, Hemoglobin 11.9L, Hematocrit 39.3, Mean Corpuscular Volume 98.0H, Mean Corpuscular Hemoglobin 29.7, Mean Corpuscular Hemoglobin Concent 30.3L, Red Cell Distribution Width 17.2H, Platelet Count 123L, Neutrophils (%) (Auto) 65.9, Lymphocytes (%) (Auto) 16.3L, Monocytes (%) (Auto) 9.2H, Eosinophils (%) (Auto) 6.8H, Basophils (%) (Auto) 1.0, Neutrophils # (Auto) 4.7, Lymphocytes # (Auto) 1.2L, Monocytes # (Auto) 0.7, Eosinophils # (Auto) 0.5, Basophils # (Auto) 0.1, Nucleated Red Blood Cells % (auto) 0.0, Anion Gap 6L, Glomerular Filtration Rate 12.1L, Blood Urea Nitrogen 39H, Creatinine 3.90H, Sodium Level 138, Potassium Level 4.0, Chloride Level 103, Carbon Dioxide Level 29, Calcium Level 7.7L CBC/BMP Laboratory Tests 01/18/19 06:08 Red Blood Count 4.01, Mean Corpuscular Volume 98.0 H, Mean Corpuscular Hemoglobin 29.7, Mean Corpuscular Hemoglobin Concent 30.3 L, Red Cell Distribution Width 17.2 H, Neutrophils (%) (Auto) 65.9, Lymphocytes (%) (Auto) 16.3 L, Monocytes (%) (Auto) 9.2 H, Eosinophils (%) (Auto) 6.8 H, Basophils (%) (Auto) 1.0, Neutrophils # (Auto) 4.7, Lymphocytes # (Auto) 1.2 L, Monocytes # (Auto) 0.7, Eosinophils # (Auto) 0.5, Basophils # (Auto) 0.1, Calcium Level 7.7 L Microbiology Microbiology 01/09/19 Blood Culture - Final, Complete NO GROWTH AFTER 5 DAYS 01/09/19 Blood Culture - Final, Complete NO GROWTH AFTER 5 DAYS 01/16/19 Acid Fast Stain, Received Pending 01/16/19 Mycobacterial Culture, Received Pending 01/16/19 Fungal Smear, Received Pending 01/16/19 Fungal Culture, Received Pending 01/16/19 Gram Stain - Final, Complete 01/16/19 Body Fluid Culture - Final, Complete 01/16/19 Anaerobic Culture - Final, Complete 01/13/19 Gram Stain - Final, Complete 01/13/19 Body Fluid Culture - Final, Complete 01/13/19 Acid Fast Stain, Received Pending 01/13/19 Mycobacterial Culture, Received Pending 01/13/19 Fungal Smear, Received Pending 01/13/19 Fungal Culture, Received Pending CHARLEY DENNISON MD Jan 18, 2019 10:46
[2019-01-18 14:00] VITALS: BP 102/53
[2019-01-18] MEDS: EUCERIN 120GM CREAM EXT SCH ×2 (14:35→21:41)
[2019-01-18 14:36] VITALS: BP 106/68
--- NOTE | 2019-01-18 16:04 | IPN ---
DATE: 01/18/2019 Mrs. Hernandez is seen this morning on her bedside. She is feeling well and denies any new complaints. Her abdominal distension persists and ascites is reaccumulating. She denies any nausea, vomiting, dyspnea or chest pain. She has no fever or chills. She was dialyzed yesterday and she tolerated dialysis well. Only 1300 mL fluid was removed this time. PHYSICAL EXAMINATION: Temperature 97.4 degrees Fahrenheit, heart rate 60 per minute and respiratory rate 14 per minute. Blood pressure 144/80 mmHg and oxygen saturation 94% on room air. Head is atraumatic. Neck is supple and jugular venous distention (JVD) is not abnormally elevated. She has no oral thrush or ulcers. Heart sounds are regular and lungs sound clear to auscultation. Abdomen is soft, distended with ascites and nontender. Bowel sounds are normal. Extremities have no cyanosis or clubbing. Lower extremity edema is chronic with stasis changes. Her left foot has a dressing on it. Neurologically she is awake, alert and at her baseline mentation. Today's labs show WBC count 7.1, hemoglobin 11.9 and hematocrit 39.3. Platelets 123. Sodium 138, potassium 4.0, CO2 29, BUN 39 and creatinine 3.90. Glucose 138 and calcium 7.7. PROBLEMS: 1. End-stage renal disease. The patient was dialyzed yesterday and her next dialysis will be scheduled for tomorrow. 2. Cirrhosis of liver with recurrent ascites. The patient had a paracentesis done a few days ago and she is likely to require weekly paracentesis. At present her ascites is not too tense and will wait until next week. 3. Anemia. Anemia is stable at this point and no intervention is indicated. 4. Hypertension. Blood pressure has been well-controlled on current medications and no changes are being made today. All other issues are being addressed by hospitalist service.
[2019-01-18] MEDS: SIMVASTATIN 20 MG TAB PO SCH (21:39)
[2019-01-18] MEDS: traZODone 100 MG TAB PO SCH (21:40)
[2019-01-18 22:00] VITALS: BP 131/58
[2019-01-19] MEDS: PERCOCET 5MG/325MG TAB PO PRN ×3 (00:14→19:02)
[2019-01-19 06:00] VITALS: BP 132/66
[2019-01-19] MEDS: CALCIUM ACETATE 667 MG GELCAP PO SCH ×3 (06:39→19:02)
[2019-01-19] MEDS: CALCIUM CARBONATE 500 MG CHEW U/D PO SCH ×3 (06:39→19:02)
[2019-01-19] MEDS: GABAPENTIN 100 MG CAP PO SCH ×2 (06:39→20:58)
[2019-01-19] MEDS: PANTOPRAZOLE 40MG TAB (PROTONIX) PO SCH (06:39)
[2019-01-19] MEDS: METOPROLOL SUCC (TopROL XL) 100MG *XL* TAB PO SCH ×2 (06:41→20:59)
[2019-01-19] MEDS: CLOPIDOGREL 75 MG TAB PO SCH (06:42)
[2019-01-19] MEDS: rOPINIRole 2MG TAB PO SCH ×2 (06:42→20:58)
[2019-01-19] MEDS: **hydrALAZINE HCL** 25 MG TAB PO SCH ×3 (06:42→20:57)
[2019-01-19] MEDS: LEVOTHYROXINE 125MCG TABLET (0.125MG) PO SCH (06:42)
[2019-01-19] MEDS: EUCERIN 120GM CREAM EXT SCH ×2 (06:43→20:59)
[2019-01-19] MEDS: HumaLOG INSULIN (NovoLOG) PER UNIT SC SCH ×4 (07:30→20:45)
[2019-01-19 09:00] VITALS: BP 108/50
[2019-01-19] MEDS: LEVEMIR (INSULIN DETEMIR) 1 UNITS/0.01ML SC SCH (09:27)
--- NOTE | 2019-01-19 10:53 | IPNPDOC ---
Date Seen The patient was seen on 01/19/19. Progress Note Subjective: Pt c/o neck pain today due to prolonged coloring yesterday. she denies any upper arm/hand weakness or paresthesias, able to raise her hand above her head without difficulty and normal ROM at the shoulder. PRN bengay with some relief. Transfer to rehab on tuesday if no other issues over the weekend. pt had malodorous drainage at left heel 01/18/19, and dressing changed. Dr. Baeza re-consulted. unable to discharge due to no caregiver at home. no other acute issues. on maintenance dialysis. foot ulcer evaluated by podiatry s/p paracentesis 3.4 liters removed 01/16/19 with improved abdominal distension, with no c/o dizziness, or lightheadedness. Pt c/o watery stools >5x after paracentesis yesterday. nonbloody non mucusy no fever or chills. no abd pain. some discomfort. PHYSICAL EXAM: VITALS: As below HEENT: Head is atraumatic, normocephalic.moist mucus membranes, anicteric eyes. Facy in puffy , generalized anasarca. Neck is supple with no JVD. Lungs were clear to auscultation. S1, S2, audible. Systolic murmur present, no rub or gallop Abdomen soft with positive bowel sounds,s/p paracentesis with less abdominal distension Extremities 1+ pedal edema. Chronic stasis changes. Skin : Chronic ulcer on the left heel , on the right heel dried and scabbed over old heeled ulcer. skin is thick and tight in both the legs. Neurologic examination, patient awake and alert times three. Labs and Radiology: reviewed ASSESSMENT and PLAN: Patient is a 68 year-old female with a past medical history of end-stage renal disease, on hemodialysis on a Tuesday, Tuesday, Tuesday maintenance scheduled via left upper extremity fistula, secondary hyperparathyroidism, diabetes, neuropathy, coronary artery disease, hypertension, hypothyroidism, diastolic congestive heart failure, Cirrhosis of liver possibly due to Amador, JUAN, obesity, anemia of chronic renal failure, charcot joint of left ankle, gout or pseudogout, multiple episodes of diabetic ulcers and osteomyelitis with toe amputations, left heel chronic ulcer, Left 7th Rib fracture on 01/05 after a fall with small pneumothorax, gall stones, cervical spondylosis presented to the emergency room after having multiple falls this past 1 to 2 week. She says that she has a brace on her left foot due to her Charcot joint but she still has problems ambulating and has been falling quite often during this past 1- 2 weeks so she came to the ER for evaluation. Pateint noted to have anasarca, large amount of ascitis and SOB. Pateint did say she has been been some HD treatments of the past 6 weeks. She is known to be non complaint with dietary salt and fluid restrictions. Gait imbalance and falls. due to left Charcot joint with gait instability, has chronic left heel ulcer also causing difficulty in walking. PT evaluation Anasarca with large ascites causing some SOB . due to missing HD treatments and also underlying cirrhosis of liver with dietary indiscretion Had paracentesis on 01/13 with removal of 6.6L . Fluid is transudative with SAAG> 1.1 , no infection. suggestive of cirrhosis of liver. repeated paracentesis 01/16/19 with removal of 3.4liters. Diarrhea no bowel regimen monitor for electrolyte abnormalities. Chronic left heel ulcer continue dressing change. debridement done at bedside by soil fertility specialist Dr Baeza right heel dry ulcer also debrided re-consulted tara 01/16/19 and 01/18/19 check xray r/o osteomyelitis eucerin ointment on intact skin Diarrhea Chronic most probably due to neuropathy or IBS. will give imordium prn stopped stool softeners. Acute left 7th rib fracture with associated small pneumothorax continue pain meds and will monitor. Back pain, diabetic neuropathy continue gabapentin. End-stage renal disease with hyperphosphatemia and secondary hyperparathyroidism on hemodialysis as per nephrology. continue tums and phoslo. Hypertension. On hydralazine and metoprolol. Cirrhosis of liver with ascites Hepatitis panel neg. no history of heavy alcohol abuse. ceruloplasmin level normal etiology undetermined May be due to AMADOR Anemia. Secondary to the chronic kidney disease. Continue to monitor. History of coronary artery disease, on statin, Plavix, metoprolol. will continue to hold plavix as bee need another tap next week. Type 2 diabetes, on sliding scale and consistent carbohydrate diet. Hypothyroidism, on Synthroid. Dyslipidemia, on statin. 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 prn bengay with some relief. Pt c/o neck pain today due to prolonged coloring yesterday. she denies any upper arm/hand weakness or paresthesias, able to raise her hand above her head without difficulty and normal ROM at the shoulder. PRN bengay with some relief. Restless leg syndrome, on Requip. History of esophageal reflux disease, on Protonix. Obstructive sleep apnea (JUAN). No issues at present. Gout or pseudogout has h/o high uric acid. No issues at present. Depression. Continue current medications. Disposition: pt's primary caregiver, her , is currently admitted at [facility]. PFS consulted for dc plans. rehab transfer on tuesday. VS, I&O, 24H, Fishbone Vital Signs/I&O Vital Signs Date Time Temp Pulse Resp B/P (MAP) Pulse Ox O2 Delivery O2 Flow Rate FiO2 01/19/19 09:00 96.8 57 12 108/50 (69) 93 01/14/19 02:00 2.0 I&O- Last 24 Hours up to 6 AM 01/19/19 06:00 Intake Total 960 ml Output Total 100 ml Balance 860 ml Laboratory Data 24H LABS Laboratory Tests 2 01/18/19 11:23: Bedside Glucose (Misc Panel) 263H 01/18/19 16:23: Bedside Glucose (Misc Panel) 237H 01/18/19 20:52: Bedside Glucose (Misc Panel) 184H Microbiology Microbiology 01/09/19 Blood Culture - Final, Complete NO GROWTH AFTER 5 DAYS 01/09/19 Blood Culture - Final, Complete NO GROWTH AFTER 5 DAYS 01/16/19 Acid Fast Stain, Received Pending 01/16/19 Mycobacterial Culture, Received Pending 01/16/19 Fungal Smear, Received Pending 01/16/19 Fungal Culture, Received Pending 01/16/19 Gram Stain - Final, Complete 01/16/19 Body Fluid Culture - Final, Complete 01/16/19 Anaerobic Culture - Final, Complete 01/13/19 Gram Stain - Final, Complete 01/13/19 Body Fluid Culture - Final, Complete 01/13/19 Acid Fast Stain, Received Pending 01/13/19 Mycobacterial Culture, Received Pending 01/13/19 Fungal Smear, Received Pending 01/13/19 Fungal Culture, Received Pending CHARLEY DENNISON MD Jan 19, 2019 10:53
[2019-01-19] MEDS: ANALGESIC BALM CRM 120 GM TOP SCH ×3 (12:05→20:59)
[2019-01-19] MEDS ORDERED: LIDOCAINE 1% SDV 5 ML VIAL SQ ONE (12:15)
[2019-01-19] MEDS ORDERED: HEPARIN 1,000 UNITS/ML 10ML VIAL (FOR RADIOLOGY& DIALYSIS ONLY) IV ONE (12:15)
[2019-01-19 14:00] VITALS: BP 120/58
--- NOTE | 2019-01-19 14:56 | IPN ---
DATE: 01/19/2019 Mrs. Hernandez is seen this morning on her bedside. She is laying in the bed and complains of abdominal distension and discomfort. She had a paracentesis done earlier in the week and has ascites reaccumulating. She denies any nausea, vomiting, dyspnea, fever, chest pain. PHYSICAL EXAMINATION: Temperature 96.8 degrees Fahrenheit, heart rate 57 per minute and respiratory rate 18 per minute. Blood pressure 108/50 mmHg and oxygen saturation 93% on room air. Head is atraumatic. Neck is supple and jugular venous distention (JVD) is not abnormally elevated. Heart sounds are regular. Lungs are clear to auscultation. Abdomen is markedly distended with ascites and bowel sounds are present. Extremities have chronic stasis changes but no cyanosis or clubbing. Lower extremity edema is at least 2+. Neurologically, she is able to answer questions and has no focal neurological deficit. The patient did not have any new laboratories done today and yesterday's laboratories were appropriate. PROBLEMS: 1. End-stage renal disease. The patient is going to be dialyzed this afternoon. We will try to remove about two liters of fluid if she can tolerate. Last time, she could tolerate only 1300 mL. 2. Cirrhosis of liver with recurrent ascites. Her ascites has accumulated once again since her paracentesis three days ago. We will try to schedule her for another paracentesis next week. 3. Anemia. Her anemia has been stable and does not need any urgent intervention. 4. Generalized weakness and lower extremity edema and Charcot joint. These are chronic issues and we will continue to keep her in optimum condition. Unfortunately, her who was her caregiver at home is in the hospital and she is not likely to do well at home.
[2019-01-19] MEDS: traZODone 100 MG TAB PO SCH (20:57)
[2019-01-19] MEDS: SIMVASTATIN 20 MG TAB PO SCH (20:57)
[2019-01-19 22:00] VITALS: BP 101/55
[2019-01-20 06:00] VITALS: BP 115/58
[2019-01-20] MEDS: LEVOTHYROXINE 125MCG TABLET (0.125MG) PO SCH (06:18)
[2019-01-20] MEDS: PERCOCET 5MG/325MG TAB PO PRN ×3 (06:21→22:10)
[2019-01-20 07:49] LABS: HEMATOCRIT 36.3 % (36.0-47.0); HEMOGLOBIN 10.8 g/dl (12.0-15.5); MEAN CORPUSCULAR HEMOGLOBIN 29.1 pg (27.0-33.0); MEAN CORPUSCULAR HGB CONC 29.8 g/dl (32.0-36.5); MEAN CORPUSCULAR VOLUME 97.8 fl (80.0-96.0); PLATELET COUNT, AUTOMATED 119 10^3/uL (150-450); RED BLOOD COUNT 3.71 10^6/uL (4.00-5.40); WHITE BLOOD COUNT 7.7 10^3/uL (4.0-10.0)
[2019-01-20 08:31] LABS: CALCIUM LEVEL 7.5 MG/DL (8.8-10.2); CREATININE FOR GFR 3.95 MG/DL (0.55-1.30); POTASSIUM SERUM 4.2 MEQ/L (3.5-5.1)
[2019-01-20] MEDS: LEVEMIR (INSULIN DETEMIR) 1 UNITS/0.01ML SC SCH (08:54)
[2019-01-20] MEDS: HumaLOG INSULIN (NovoLOG) PER UNIT SC SCH ×4 (08:54→20:01)
[2019-01-20] MEDS: CALCIUM CARBONATE 500 MG CHEW U/D PO SCH ×3 (08:55→18:23)
[2019-01-20] MEDS: GABAPENTIN 100 MG CAP PO SCH ×2 (08:56→20:00)
[2019-01-20] MEDS: rOPINIRole 2MG TAB PO SCH ×2 (08:56→20:00)
[2019-01-20] MEDS: CLOPIDOGREL 75 MG TAB PO SCH (08:56)
[2019-01-20] MEDS: PANTOPRAZOLE 40MG TAB (PROTONIX) PO SCH (08:57)
[2019-01-20] MEDS: CALCIUM ACETATE 667 MG GELCAP PO SCH ×3 (08:57→18:24)
[2019-01-20] MEDS: **hydrALAZINE HCL** 25 MG TAB PO SCH ×3 (08:57→20:00)
[2019-01-20] MEDS: METOPROLOL SUCC (TopROL XL) 100MG *XL* TAB PO SCH ×2 (08:58→20:00)
[2019-01-20] MEDS: ANALGESIC BALM CRM 120 GM TOP SCH ×4 (08:59→21:00)
[2019-01-20] MEDS: EUCERIN 120GM CREAM EXT SCH ×2 (08:59→21:00)
[2019-01-20] MEDS ORDERED: hydrOXYzine 25 MG TAB PO ONE (09:45)
[2019-01-20] MEDS: diphenhydrAMINE CREAM 30GM TOP SCH ×3 (10:21→21:00)
--- NOTE | 2019-01-20 11:14 | IPNPDOC ---
Date Seen The patient was seen on 01/20/19. Progress Note Subjective: PT c/o pruritus b/l upper extremities, chest, back, abdomen without a rash, after she washed up this morning, mos tlikely due to liver disease, on PRN atarax and benadyrl cream. Pt c/o neck pain 01/19/19 due to prolonged coloring yesterday. she denies any upper arm/hand weakness or paresthesias, able to raise her hand above her head without difficulty and normal ROM at the shoulder. PRN bengay with some relief. Transfer to rehab on tuesday if no other issues over the weekend. pt had malodorous drainage at left heel 01/18/19, and dressing changed. Dr. Baeza re-consulted. unable to discharge due to no caregiver at home. no other acute issues. on maintenance dialysis. foot ulcer evaluated by podiatry s/p paracentesis 3.4 liters removed 01/16/19 with improved abdominal distension, with no c/o dizziness, or lightheadedness. Pt c/o watery stools >5x after paracentesis yesterday. nonbloody non mucusy no fever or chills. no abd pain. some discomfort. PHYSICAL EXAM: VITALS: As below HEENT: Head is atraumatic, normocephalic.moist mucus membranes, anicteric eyes. Facy in puffy , generalized anasarca. Neck is supple with no JVD. Lungs were clear to auscultation. S1, S2, audible. Systolic murmur present, no rub or gallop Abdomen soft with positive bowel sounds,s/p paracentesis with less abdominal distension Extremities 1+ pedal edema. Chronic stasis changes. Skin : Chronic ulcer on the left heel , on the right heel dried and scabbed over old heeled ulcer. skin is thick and tight in both the legs. Neurologic examination, patient awake and alert times three. Labs and Radiology: reviewed ASSESSMENT and PLAN: Patient is a 68 year-old female with a past medical history of end-stage renal disease, on hemodialysis on a Tuesday, Tuesday, Tuesday maintenance scheduled via left upper extremity fistula, secondary hyperparathyroidism, diabetes, neuropathy, coronary artery disease, hypertension, hypothyroidism, diastolic congestive heart failure, Cirrhosis of liver possibly due to Amador, JUAN, obesity, anemia of chronic renal failure, charcot joint of left ankle, gout or pseudogout, multiple episodes of diabetic ulcers and osteomyelitis with toe amputations, left heel chronic ulcer, Left 7th Rib fracture on 01/05 after a fall with small pneumothorax, gall stones, cervical spondylosis presented to the emergency room after having multiple falls this past 1 to 2 week. She says that she has a brace on her left foot due to her Charcot joint but she still has problems ambulating and has been falling quite often during this past 1- 2 weeks so she came to the ER for evaluation. Pateint noted to have anasarca, large amount of ascitis and SOB. Pateint did say she has been been some HD treatments of the past 6 weeks. She is known to be non complaint with dietary salt and fluid restrictions. Gait imbalance and falls. due to left Charcot joint with gait instability, has chronic left heel ulcer also causing difficulty in walking. PT evaluation Anasarca with large ascites causing some SOB . due to missing HD treatments and also underlying cirrhosis of liver with dietary indiscretion Had paracentesis on 01/13 with removal of 6.6L . Fluid is transudative with SAAG> 1.1 , no infection. suggestive of cirrhosis of liver. repeated paracentesis 01/16/19 with removal of 3.4liters. pruritus b/l upper extremities, chest, back, abdomen without a rash, after she washed up this morning, mos tlikely due to liver disease, on PRN atarax and benadyrl cream. Chronic left heel ulcer continue dressing change. debridement done at bedside by process mechanic Dr Baeza right heel dry ulcer also debrided re-consulted tara 01/16/19 and 01/18/19 check xray r/o osteomyelitis eucerin ointment on intact skin Diarrhea Chronic most probably due to neuropathy or IBS. will give imordium prn stopped stool softeners. no bowel regimen monitor for electrolyte abnormalities. Acute left 7th rib fracture with associated small pneumothorax continue pain meds and will monitor. Back pain, diabetic neuropathy continue gabapentin. End-stage renal disease with hyperphosphatemia and secondary hyperparathyroidism on hemodialysis as per nephrology. continue tums and phoslo. Hypertension. On hydralazine and metoprolol. Cirrhosis of liver with ascites Hepatitis panel neg. no history of heavy alcohol abuse. ceruloplasmin level normal etiology undetermined May be due to AMADOR Anemia. Secondary to the chronic kidney disease. Continue to monitor. History of coronary artery disease, on statin, Plavix, metoprolol. will continue to hold plavix as bee need another tap next week. Type 2 diabetes, on sliding scale and consistent carbohydrate diet. Hypothyroidism, on Synthroid. Dyslipidemia, on statin. 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 prn bengay with some relief. Pt c/o neck pain today due to prolonged coloring yesterday. she denies any upper arm/hand weakness or paresthesias, able to raise her hand above her head without difficulty and normal ROM at the shoulder. PRN bengay with some relief. Restless leg syndrome, on Requip. History of esophageal reflux disease, on Protonix. Obstructive sleep apnea (JUAN). No issues at present. Gout or pseudogout has h/o high uric acid. No issues at present. Depression. Continue current medications. Disposition: pt's primary caregiver, her , is currently admitted at [facility]. PFS consulted for dc plans. rehab transfer on tuesday. VS, I&O, 24H, Fishbone VS, I&O, 24H, Fishbone Vital Signs/I&O Vital Signs Date Time Temp Pulse Resp B/P (MAP) Pulse Ox O2 Delivery O2 Flow Rate FiO2 01/20/19 08:58 60 115/58 01/20/19 07:20 16 01/20/19 06:00 97.1 97 01/14/19 02:00 2.0 I&O- Last 24 Hours up to 6 AM 01/20/19 06:00 Intake Total 960 ml Output Total 2550 ml Balance -1590 ml Laboratory Data 24H LABS Laboratory Tests 2 01/19/19 11:41: Bedside Glucose (Misc Panel) 221H 01/19/19 18:55: Bedside Glucose (Misc Panel) 132H 01/19/19 21:09: Bedside Glucose (Misc Panel) 145H 01/20/19 06:25: Bedside Glucose (Misc Panel) 328H 01/20/19 07:34: Nucleated Red Blood Cells % (auto) 0.0, Anion Gap 10, Glomerular Filtration Rate 12.0L, Blood Urea Nitrogen 44H, Creatinine 3.95H, Sodium Level 135L, Potassium Level 4.2, Chloride Level 99, Carbon Dioxide Level 26, Calcium Level 7.5L CBC/BMP Laboratory Tests 01/20/19 07:34 Red Blood Count 3.71 L, Mean Corpuscular Volume 97.8 H, Mean Corpuscular Hemoglobin 29.1, Mean Corpuscular Hemoglobin Concent 29.8 L, Red Cell Distribution Width 17.0 H, Calcium Level 7.5 L Microbiology Microbiology 01/16/19 Acid Fast Stain, Received Pending 01/16/19 Mycobacterial Culture, Received Pending 01/16/19 Fungal Smear, Received Pending 01/16/19 Fungal Culture, Received Pending 01/16/19 Gram Stain - Final, Complete 01/16/19 Body Fluid Culture - Final, Complete 01/16/19 Anaerobic Culture - Final, Complete 01/13/19 Gram Stain - Final, Complete 01/13/19 Body Fluid Culture - Final, Complete 01/13/19 Acid Fast Stain, Received Pending 01/13/19 Mycobacterial Culture, Received Pending 01/13/19 Fungal Smear, Received Pending 01/13/19 Fungal Culture, Received Pending CHARLEY DENNISON MD Jan 20, 2019 11:14
[2019-01-20 14:00] VITALS: BP 163/71
[2019-01-20 17:00] VITALS: BP 169/79
[2019-01-20] MEDS: hydrOXYzine 25 MG TAB PO PRN (18:24)
--- NOTE | 2019-01-20 18:48 | IPN ---
DATE: 01/20/2019 Mrs. Hernandez is seen this morning on her bedside. She is somewhat depressed due to her being acutely ill in intensive care unit. Her own medical conditions are essentially unchanged. She underwent hemodialysis yesterday and denies any nausea, vomiting, dyspnea, or chest pain. Her lower extremity edema and abdominal distension remain unchanged. She has known history of ascites and underwent paracentesis just about 4 days ago. She has an ulcer on her right foot and has difficulty ambulating. PHYSICAL EXAMINATION: Temperature 97.1 degrees Fahrenheit, heart rate 60 per minute, respiratory rate 16 per minute, blood pressure 115/58 mm of mercury, and oxygen saturation 97% on room air. Head is atraumatic. Neck is supple and without jugular venous distention (JVD) or thyroid enlargement. She has no oral thrush or ulcers. Heart sounds are regular, and lungs sound clear to auscultation. Abdomen is distended with a large amount of ascites, which is nontender, and bowel sounds are normal. Extremities have no cyanosis or clubbing. Her left arm arteriovenous (AV) fistula is patent. Lower extremity edema is at least 2+ bilaterally. Right foot is wrapped in dressing. Neurologically, she is at her baseline mentation without a focal deficit. Today's labs show WBC count 7.7, hemoglobin 10.8, hematocrit 36.3, platelets 119. Sodium 135, potassium 4.2, CO2 26, BUN 44, creatinine 3.95, glucose 350, calcium 7.5. PROBLEMS: 1. End-stage renal disease. The patient was dialyzed yesterday, and next dialysis will be scheduled for Tuesday. We are trying to set her up for an ultrafiltration later today if she agrees. 2. Congestive heart failure/chronic hypervolemia. Her volume status has been chronically decompensated. She does not tolerate large amount of fluid removal in one dialysis session, and yesterday we removed about 2.5 liters. I have offered an ultrafiltration session later this afternoon for another 2 liters of fluid removal. She was initially quite hesitant, as she wants to meet with her family about her 's condition. She did agree for ultrafiltration later in the day. We will try to remove another 2 liters of fluid today. 3. Anemia. Anemia has been stable and does not need any urgent intervention. 4. Hypertension. Blood pressure has been very well controlled here in the hospital without any problems on current medications.
[2019-01-20] MEDS: traZODone 100 MG TAB PO SCH (19:59)
[2019-01-20] MEDS: SIMVASTATIN 20 MG TAB PO SCH (20:00)
[2019-01-20 22:00] VITALS: BP 110/57
[2019-01-21] MEDS: PERCOCET 5MG/325MG TAB PO PRN (05:20)
[2019-01-21] MEDS: hydrOXYzine 25 MG TAB PO PRN ×2 (05:20→20:41)
[2019-01-21] MEDS: LEVOTHYROXINE 125MCG TABLET (0.125MG) PO SCH (05:20)
[2019-01-21 06:00] VITALS: BP 151/64
[2019-01-21] MEDS: HumaLOG INSULIN (NovoLOG) PER UNIT SC SCH ×4 (07:59→21:22)
[2019-01-21] MEDS: CALCIUM ACETATE 667 MG GELCAP PO SCH ×3 (08:00→18:12)
[2019-01-21] MEDS: CALCIUM CARBONATE 500 MG CHEW U/D PO SCH ×3 (08:00→18:12)
[2019-01-21 08:57] LABS: ALBUMIN 2.1 GM/DL (3.2-5.2); ALT/SGPT 78 U/L (12-78); BILIRUBIN,DIRECT 0.2 MG/DL (0.0-0.2); BILIRUBIN,TOTAL 0.4 MG/DL (0.2-1.0); CHOLESTEROL LEVEL 107 MG/DL (<200); CHOLESTEROL RISK RATIO 2.743 (<5); FERRITIN 492 NG/ML (8-252); HDL CHOLESTEROL 39 MG/DL (>40); LDL CHOLESTEROL 51 MG/DL (<100); NON-HDL-C 68 MG/DL; TOTAL PROTEIN 5.8 GM/DL (6.4-8.2); TRIGLYCERIDES LEVEL 87 MG/DL (<150)
[2019-01-21] MEDS: EUCERIN 120GM CREAM EXT SCH ×2 (09:00→20:42)
[2019-01-21] MEDS: diphenhydrAMINE CREAM 30GM TOP SCH ×3 (09:00→20:43)
[2019-01-21] MEDS: METOPROLOL SUCC (TopROL XL) 100MG *XL* TAB PO SCH ×2 (09:00→20:41)
[2019-01-21] MEDS: PANTOPRAZOLE 40MG TAB (PROTONIX) PO SCH (09:00)
[2019-01-21] MEDS: **hydrALAZINE HCL** 25 MG TAB PO SCH ×3 (09:00→20:41)
[2019-01-21] MEDS: rOPINIRole 2MG TAB PO SCH ×2 (09:00→20:40)
[2019-01-21] MEDS: GABAPENTIN 100 MG CAP PO SCH ×2 (09:00→20:41)
[2019-01-21] MEDS: CLOPIDOGREL 75 MG TAB PO SCH (09:00)
[2019-01-21] MEDS: ANALGESIC BALM CRM 120 GM TOP SCH ×4 (09:00→20:44)
--- NOTE | 2019-01-21 10:21 | IPNPDOC ---
Date Seen The patient was seen on 01/21/19. Progress Note Subjective: PT c/o pruritus b/l upper extremities, chest, back, abdomen without a rash, after she washed up 01/20/19. mos tlikely due to liver disease. Since being on PRN atarax and benadyrl cream, some improvement. despite normal bili, trial of cholestyramine. Pt c/o neck pain 01/19/19 due to prolonged coloring yesterday. she denies any upper arm/hand weakness or paresthesias, able to raise her hand above her head without difficulty and normal ROM at the shoulder. PRN bengay with some relief. Transfer to rehab on tuesday if no other issues over the weekend. pt had malodorous drainage at left heel 01/18/19, and dressing changed. Dr. Baeza re-consulted. unable to discharge due to no caregiver at home. no other acute issues. on maintenance dialysis. foot ulcer evaluated by podiatry s/p paracentesis 3.4 liters removed 01/16/19 with improved abdominal distension, with no c/o dizziness, or lightheadedness. Pt c/o watery stools >5x after paracentesis yesterday. nonbloody non mucusy no fever or chills. no abd pain. some discomfort. PHYSICAL EXAM: VITALS: As below HEENT: Head is atraumatic, normocephalic.moist mucus membranes, anicteric eyes. Facy in puffy , generalized anasarca. Neck is supple with no JVD. Lungs were clear to auscultation. S1, S2, audible. Systolic murmur present, no rub or gallop Abdomen soft with positive bowel sounds,worsening abdominal distention with fluid wave Extremities 1+ pedal edema. Chronic stasis changes. Skin : Chronic ulcer on the left heel , on the right heel dried and scabbed over old heeled ulcer. skin is thick and tight in both the legs. Neurologic examination, patient awake and alert times three. Labs and Radiology: reviewed ASSESSMENT and PLAN: Patient is a 68 year-old female with a past medical history of end-stage renal disease, on hemodialysis on a Tuesday, Tuesday, Tuesday maintenance scheduled via left upper extremity fistula, secondary hyperparathyroidism, diabetes, neuropathy, coronary artery disease, hypertension, hypothyroidism, diastolic congestive heart failure, Cirrhosis of liver possibly due to Marino, JUAN, obesity, anemia of chronic renal failure, charcot joint of left ankle, gout or pseudogout, multiple episodes of diabetic ulcers and osteomyelitis with toe amputations, left heel chronic ulcer, Left 7th Rib fracture on 01/05 after a fall with small pneumothorax, gall stones, cervical spondylosis presented to the emergency room after having multiple falls this p ast 1 to 2 week. She says that she has a brace on her left foot due to her Charcot joint but she still has problems ambulating and has been falling quite often during this past 1- 2 weeks so she came to the ER for evaluation. Pateint noted to have anasarca, large amount of ascitis and SOB. Pateint did say she has been been some HD treatments of the past 6 weeks. She is known to be non complaint with dietary salt and fluid restrictions. Gait imbalance and falls. due to left Charcot joint with gait instability, has chronic left heel ulcer also causing difficulty in walking. PT evaluation Anasarca with large ascites causing some SOB . GI .Dr. Weinberg consulted. anti-mitochondrial antibody, ceruloplasmin, ferritin, shayla ordered. flp wnl. hepatitis serology wnl. due to missing HD treatments and also underlying cirrhosis of liver with dietary indiscretion Had paracentesis on 01/13 with removal of 6.6L . Fluid is transudative with SAAG> 1.1 , no infection. suggestive of cirrhosis of liver. repeated paracentesis 01/16/19 with removal of 3.4liters. pruritus b/l upper extremities, chest, back, abdomen without a rash, after she washed up this morning, mos tlikely due to liver disease, on PRN atarax and benadyrl cream. Chronic left heel ulcer continue dressing change. debridement done at bedside by patient observation assistant Dr Baeza right heel dry ulcer also debrided re-consulted tara 01/16/19 and 01/18/19 check xray r/o osteomyelitis eucerin ointment on intact skin Diarrhea Chronic most probably due to neuropathy or IBS. will give imordium prn stopped stool softeners. no bowel regimen monitor for electrolyte abnormalities. Acute left 7th rib fracture with associated small pneumothorax continue pain meds and will monitor. Back pain, diabetic neuropathy continue gabapentin. End-stage renal disease with hyperphosphatemia and secondary hyperparathyroidism on hemodialysis as per nephrology. continue tums and phoslo. Hypertension. On hydralazine and metoprolol. Cirrhosis of liver with ascites Hepatitis panel neg. no history of heavy alcohol abuse. ceruloplasmin level normal etiology undeterminedferritin, lipid profile negative.check antimi tochondrial ab, shayla, alpha 1 antitrypsin, gi consulted 01/21/18. s/p 2 paracentesis (6liters initially, 2nd time 3liters) eval for TIPS, may need biopsy for definitive dx. Anemia. Secondary to the chronic kidney disease. Continue to monitor. History of coronary artery disease, on statin, Plavix, metoprolol. will continue to hold plavix as bee need another tap next week. Type 2 diabetes, on sliding scale and consistent carbohydrate diet. Hypothyroidism, on Synthroid. Dyslipidemia, on statin. 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 prn bengay with some relief. Pt c/o neck pain today due to prolonged coloring yesterday. she denies any upper arm/hand weakness or paresthesias, able to raise her hand above her head without difficulty and normal ROM at the shoulder. PRN bengay with some relief. Restless leg syndrome, on Requip. History of esophageal reflux disease, on Protonix. Obstructive sleep apnea (JUAN). No issues at present. Gout or pseudogout has h/o high uric acid. No issues at present. Depression. Continue current medications. Disposition: pt's primary caregiver, her , is currently admitted at [facility]. PFS consulted for dc plans. rehab transfer on tuesday. VS, I&O, 24H, Fishbone Vital Signs/I&O Vital Signs Date Time Temp Pulse Resp B/P (MAP) Pulse Ox O2 Delivery O2 Flow Rate FiO2 01/21/19 06:10 18 01/21/19 06:00 98.1 72 151/64 (93) 95 I&O- Last 24 Hours up to 6 AM 01/21/19 06:00 Intake Total 660 ml Output Total 2100 ml Balance -1440 ml Laboratory Data 24H LABS Laboratory Tests 2 01/20/19 11:49: Bedside Glucose (Misc Panel) 243H 01/20/19 18:04: Bedside Glucose (Misc Panel) 258H 01/20/19 19:49: Bedside Glucose (Misc Panel) 201H 01/21/19 06:21: Bedside Glucose (Misc Panel) 229H 01/21/19 08:00: Ferritin 492H, Aspartate Amino Transf (AST/SGOT) 78H, Alanine Aminotransferase (ALT/SGPT) 78, Alkaline Phosphatase 506H, Total Bilirubin 0.4, Direct Bilirubin 0.2, Total Protein 5.8L, Albumin 2.1L, Albumin/Globulin Ratio 0.57L, Triglycerides Level 87, Total Cholesterol 107, LDL Cholesterol 51, Non-HDL Cholesterol (LDL + VLDL) 68, Total HDL Cholesterol 39L, Cholesterol/HDL Ratio 2.743 Microbiology Microbiology 01/16/19 Acid Fast Stain, Received Pending 01/16/19 Mycobacterial Culture, Received Pending 01/16/19 Fungal Smear, Received Pending 01/16/19 Fungal Culture, Received Pending 01/16/19 Gram Stain - Final, Complete 01/16/19 Body Fluid Culture - Final, Complete 01/16/19 Anaerobic Culture - Final, Complete 01/13/19 Gram Stain - Final, Complete 01/13/19 Body Fluid Culture - Final, Complete 01/13/19 Acid Fast Stain, Received Pending 01/13/19 Mycobacterial Culture, Received Pending 01/13/19 Fungal Smear, Received Pending 01/13/19 Fungal Culture, Received Pending CHARLEY DENNISON MD Jan 21, 2019 10:15
[2019-01-21] MEDS ORDERED: CHOLESTYRAMINE 4 GM PWD PKT PO ONE (11:00)
[2019-01-21] MEDS: LEVEMIR (INSULIN DETEMIR) 1 UNITS/0.01ML SC SCH (13:19)
[2019-01-21 18:00] VITALS: BP 175/80
[2019-01-21] MEDS: CHOLESTYRAMINE 4 GM PWD PKT PO SCH (20:40)
[2019-01-21] MEDS: SIMVASTATIN 20 MG TAB PO SCH (20:41)
[2019-01-21] MEDS: traZODone 100 MG TAB PO SCH (20:41)
[2019-01-22] MEDS ORDERED: PANTOPRAZOLE 40MG TAB (PROTONIX) As Ordered ONE (05:39)
[2019-01-22] MEDS ORDERED: **hydrALAZINE HCL** 25 MG TAB As Ordered ONE (05:39)
[2019-01-22] MEDS ORDERED: METOPROLOL SUCC (TopROL XL) 100MG *XL* TAB As Ordered ONE (05:40)
[2019-01-22] MEDS ORDERED: CALCIUM CARBONATE 500 MG CHEW U/D As Ordered ONE (05:40)
[2019-01-22] MEDS ORDERED: CLOPIDOGREL 75 MG TAB As Ordered ONE (05:40)
[2019-01-22] MEDS ORDERED: LEVOTHYROXINE 125MCG TABLET (0.125MG) As Ordered ONE (05:40)
[2019-01-22] MEDS ORDERED: GABAPENTIN 100 MG CAP As Ordered ONE (05:41)
[2019-01-22] MEDS: **hydrALAZINE HCL** 25 MG TAB PO SCH ×3 (05:43→21:11)
[2019-01-22] MEDS: PANTOPRAZOLE 40MG TAB (PROTONIX) PO SCH (05:44)
[2019-01-22] MEDS: METOPROLOL SUCC (TopROL XL) 100MG *XL* TAB PO SCH ×2 (05:44→21:12)
[2019-01-22] MEDS: LEVOTHYROXINE 125MCG TABLET (0.125MG) PO SCH (05:44)
[2019-01-22] MEDS: CALCIUM CARBONATE 500 MG CHEW U/D PO SCH ×3 (05:44→21:10)
[2019-01-22] MEDS: CALCIUM ACETATE 667 MG GELCAP PO SCH ×3 (05:44→21:11)
[2019-01-22] MEDS: GABAPENTIN 100 MG CAP PO SCH ×2 (05:44→21:11)
[2019-01-22] MEDS: CLOPIDOGREL 75 MG TAB PO SCH (05:44)
[2019-01-22] MEDS: rOPINIRole 2MG TAB PO SCH ×2 (05:45→21:11)
[2019-01-22 05:56] LABS: BASO # 0.1 10^3/uL (0.0-0.2); BASO % 0.7 % (0.0-1.0); EOS # 0.5 10^3/uL (0.0-0.50); EOS % 7.4 % (0.0-3.0); HEMOGLOBIN 9.8 g/dl (12.0-15.5); LYMPH # 1.1 10^3/uL (1.5-4.5); LYMPH % 15.2 % (24.0-44.0); MEAN CORPUSCULAR HEMOGLOBIN 28.8 pg (27.0-33.0); MEAN CORPUSCULAR HGB CONC 30.6 g/dl (32.0-36.5); MEAN CORPUSCULAR VOLUME 94.1 fl (80.0-96.0); MONO # 0.8 10^3/uL (0.0-0.8); MONO % 10.9 % (0.0-5.0); NEUTROPHILS # 4.7 10^3/uL (1.8-7.7); NEUTROPHILS % 64.6 % (36.0-66.0); PLATELET COUNT, AUTOMATED 137 10^3/uL (150-450); WHITE BLOOD COUNT 7.3 10^3/uL (4.0-10.0)
[2019-01-22 06:00] VITALS: BP 128/61
[2019-01-22 06:11] LABS: ALBUMIN 1.8 GM/DL (3.2-5.2); BILIRUBIN,TOTAL 0.3 MG/DL (0.2-1.0); C REACTIVE PROTEIN QUANTITATIV 4.89 MG/DL (0.00-0.30); CALCIUM LEVEL 7.5 MG/DL (8.8-10.2); CREATININE FOR GFR 6.28 MG/DL (0.55-1.30); POTASSIUM SERUM 4.8 MEQ/L (3.5-5.1); TOTAL PROTEIN 5.5 GM/DL (6.4-8.2)
[2019-01-22 06:16] LABS: ERYTHROCYTE SEDIMENTATION RATE 35 mm/hr (0-30)
--- NOTE | 2019-01-22 06:32 | IPN ---
DATE OF VISIT: 01/21/2019 Mrs. Hernandez is seen this morning on her bedside. She is regularly dialyzed on Tuesday, Tuesday and Tuesday schedule. She had an extra ultrafiltration session yesterday and 2 liters of fluid was removed. She has a known history of recurrent ascites and had a paracentesis done earlier in the week. She denies any nausea, vomiting, dyspnea or chest pain. PHYSICAL EXAMINATION: Vital signs: Temperature 98 degrees Fahrenheit, heart rate 72 per minute and respiratory rate 18 per minute. Blood pressure 150/64 mmHg and oxygen saturation 95% on room air. Head: Atraumatic. Neck: Supple and without jugular venous distention (JVD) or thyroid enlargement. Lungs: Lungs have been clear to auscultation. Abdomen: Distended with large amount of ascites and bowel sounds present. Extremities: Have no cyanosis or clubbing. Lower extremity edema is at least 2+ with chronic stasis changes. Right foot wrapped in dressing. Neurologically: She is at her baseline mentation. LABORATORY DATA: Her only labs today were ferritin 492, total bilirubin 0.4, AST 78, ALT 78 and alkaline phosphatase 506. PROBLEMS: 1. End-stage renal disease. The patient is regularly dialyzed on Tuesday, Tuesday and Tuesday schedule. We will plan to dialyze her tomorrow. 2. Chronic hypervolemia and lower extremity edema. This is related to mostly noncompliance with dialysis and fluid restriction. The patient also has hypotension and cramps during dialysis which limits fluid removal. She was dialyzed on Tuesday and had an extra ultrafiltration done yesterday with good negative fluid balance. 3. Cirrhosis of liver with recurrent ascites. The patient did have a paracentesis done and is likely to require another paracentesis next week. At this point there is no emergent indication for paracentesis today. Other issues are being addressed by hospitalist service.
[2019-01-22] MEDS: ANALGESIC BALM CRM 120 GM TOP SCH ×4 (09:00→21:13)
[2019-01-22] MEDS ORDERED: DARBEPOETIN 100 MCG/0.5 ML *DIALYSIS* SYRINGE (J0882) IV SCH (09:15)
[2019-01-22] MEDS: HumaLOG INSULIN (NovoLOG) PER UNIT SC SCH ×4 (09:15→21:17)
[2019-01-22 09:35] VITALS: BP 113/57
[2019-01-22] MEDS: LEVEMIR (INSULIN DETEMIR) 1 UNITS/0.01ML SC SCH (09:48)
[2019-01-22] MEDS: EUCERIN 120GM CREAM EXT SCH ×2 (09:49→21:12)
[2019-01-22] MEDS: diphenhydrAMINE CREAM 30GM TOP SCH ×3 (09:50→21:13)
[2019-01-22 10:23] LABS: CRYOGLOBULINS NEGATIVE (NEGATIVE)
[2019-01-22] MEDS ORDERED: HEPARIN 1,000 UNITS/ML 10ML VIAL (FOR RADIOLOGY& DIALYSIS ONLY) IV ONE (11:00)
[2019-01-22] MEDS ORDERED: LIDOCAINE 1% SDV 5 ML VIAL SQ ONE (11:00)
[2019-01-22] MEDS: CHOLESTYRAMINE 4 GM PWD PKT PO SCH ×2 (11:47→21:10)
[2019-01-22 14:00] VITALS: BP 133/63
[2019-01-22] MEDS: PERCOCET 5MG/325MG TAB PO PRN (14:42)
[2019-01-22] MEDS: hydrOXYzine 25 MG TAB PO PRN ×2 (14:44→21:12)
[2019-01-22 14:54] VITALS: BP 112/58
--- NOTE | 2019-01-22 20:33 | IPNPDOC ---
Date Seen The patient was seen on 01/22/19. Progress Note Subjective: Pt's yesterday after being made [employer], and patient has had a very difficult night with family at the bedside. She is anxious to go home to help with services, but does not have a good support system as her was her primary care specialist. She c/o exhaustion and was crying on and off all night. She was just getting to sleep this morning. She noticed increased abdominal distension but no nausea, vomiting. PHYSICAL EXAM: VITALS: As below HEENT: Head is atraumatic, normocephalic.moist mucus membranes, anicteric eyes. Facy in puffy , generalized anasarca. Neck is supple with no JVD. Lungs diminishedS1, S2, audible. Systolic murmur present, no rub or gallop Abdomen soft with positive bowel sounds,worsening abdominal distention with fluid wave Extremities 1+ pedal edema. Chronic stasis changes. Skin : Chronic ulcer on the left heel , on the right heel dried and scabbed over old heeled ulcer. skin is thick and tight in both the legs. Neurologic examination, patient awake and alert times three. Labs and Radiology: reviewed ASSESSMENT and PLAN: Patient is a 68 year-old female with a past medical history of end-stage renal disease, on hemodialysis on a Tuesday, Tuesday, Tuesday maintenance scheduled via left upper extremity fistula, secondary hyperparathyroidism, diabetes, neuropathy, coronary artery disease, hypertension, hypothyroidism, diastolic congestive heart failure, Cirrhosis of liver possibly due to Marino, JUAN, obesity, anemia of chronic renal failure, charcot joint of left ankle, gout or pseudogout, multiple episodes of diabetic ulcers and osteomyelitis with toe amputations, left heel chronic ulcer, Left 7th Rib fracture on 01/05 after a fall with small pneumothorax, gall stones, cervical spondylosis presented to the emergency room after having multiple falls this past 1 to 2 week. She says that she has a brace on her left foot due to her Charcot joint but she still has problems ambulating and has been falling quite often during this past 1- 2 weeks so she came to the ER for evaluation. Pateint noted to have anasarca, large amount of ascitis and SOB. Pateint did say she has been been some HD treatments of the past 6 weeks. She is known to be non complaint with dietary salt and fluid restrictions. Gait imbalance and falls. due to left Charcot joint with gait instability, has chronic left heel ulcer also causing difficulty in walking. needs rehab. no caregiver at home due to 's recent passing. Anasarca with large ascites causing some SOB . GI .Dr. Weinberg consulted. anti-mitochondrial antibody, ceruloplasmin, ferritin, shayla ordered. flp wnl. hepatitis serology wnl. due to missing HD treatments and also underlying cirrhosis of liver with dietary indiscretion Had paracentesis on 01/13 with removal of 6.6L . Fluid is transudative with SAAG> 1.1 , no infection. suggestive of cirrhosis of liver. repeated paracentesis 01/16/19 with removal of 3.4liters. pruritus b/l upper extremities, chest, back, abdomen without a rash, after she washed up this morning, mos tlikely due to liver disease, on PRN atarax and benadyrl cream. Chronic left heel ulcer continue dressing change. debridement done at bedside by occupational safety specialist Dr Baeza right heel dry ulcer also debrided re-consulted tara 01/16/19 and 01/18/19 check xray r/o osteomyelitis eucerin ointment on intact skin Diarrhea Chronic most probably due to neuropathy or IBS. will give imordium prn stopped stool softeners. no bowel regimen monitor for electrolyte abnormalities. Acute left 7th rib fracture with associated small pneumothorax continue pain meds and will monitor. Back pain, diabetic neuropathy continue gabapentin. End-stage renal disease with hyperphosphatemia and secondary hyperparathyroidism on hemodialysis as per nephrology. continue tums and phoslo. Hypertension. On hydralazine and metoprolol. Cirrhosis of liver with ascites Hepatitis panel neg. no history of heavy alcohol abuse. ceruloplasmin level normal etiology undeterminedferritin, lipid profile negative.check antimitochondrial ab, shayla, alpha 1 antitrypsin, gi consulted 01/21/18. s/p 2 paracentesis (6liters initially, 2nd time 3liters) eval for TIPS, may need biopsy for definitive dx. Anemia. Secondary to the chronic kidney disease. Continue to monitor. History of coronary artery disease, on statin, Plavix, metoprolol. will continue to hold plavix as bee need another tap next week. Type 2 diabetes, on sliding scale and consistent carbohydrate diet. Hypothyroidism, on Synthroid. Dyslipidemia, on statin. 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 prn bengay with some relief. Pt c/o neck pain today due to prolonged coloring yesterday. she denies any upper arm/hand weakness or paresthesias, able to raise her hand above her head without difficulty and normal ROM at the shoulder. PRN bengay with some relief. Restless leg syndrome, on Requip. History of esophageal reflux disease, on Protonix. Obstructive sleep apnea (JUAN). No issues at present. Gout or pseudogout has h/o high uric acid. No issues at present. Depression. Continue current medications. disposition: placement as no caregiver at home. Her husbnad passed yesterday. VS, I&O, 24H, Fishbone Vital Signs/I&O Vital Signs Date Time Temp Pulse Resp B/P (MAP) Pulse Ox O2 Delivery O2 Flow Rate FiO2 01/22/19 15:02 112/58 01/22/19 14:54 57 01/22/19 14:42 17 01/22/19 14:00 97.9 99 I&O- Last 24 Hours up to 6 AM 01/22/19 06:00 Intake Total 240 ml Output Total 50 ml Balance 190 ml Laboratory Data 24H LABS Laboratory Tests 2 01/21/19 20:54: Bedside Glucose (Misc Panel) 275H 01/22/19 05:28: Immature Granulocyte % (Auto) 1.2, White Blood Count 7.3, Red Blood Count 3.40L, Hemoglobin 9.8L, Hematocrit 32.0L, Mean Corpuscular Volume 94.1, Mean Corpuscular Hemoglobin 28.8, Mean Corpuscular Hemoglobin Concent 30.6L, Red Cell Distribution Width 16.8H, Platelet Count 137L, Neutrophils (%) (Auto) 64.6, Lymphocytes (%) (Auto) 15.2L, Monocytes (%) (Auto) 10.9H, Eosinophils (%) (Auto) 7.4H, Basophils (%) (Auto) 0.7, Neutrophils # (Auto) 4.7, Lymphocytes # (Auto) 1.1L, Monocytes # (Auto) 0.8, Eosinophils # (Auto) 0.5, Basophils # (Auto) 0.1, Nucleated Red Blood Cells % (auto) 0.0, Erythrocyte Sedimentation Rate 35H, Anion Gap 9, Glomerular Filtration Rate 7.0L, Blood Urea Nitrogen 79#H, Creatinine 6.28#H, Sodium Level 136, Potassium Level 4.8, Chloride Level 102, Carbon Dioxide Level 25, Calcium Level 7.5L, Aspartate Amino Transf (AST/SGOT) 44H, Alanine Aminotransferase (ALT/SGPT) 56, Alkaline Phosphatase 390H, Total Bilirubin 0.3, Total Protein 5.5L, Albumin 1.8L, C-Reactive Protein, Quantitative 4.89H, Albumin/Globulin Ratio 0.49L 01/22/19 06:17: 01/22/19 11:58: Bedside Glucose (Misc Panel) 180H CBC/BMP Laboratory Tests 01/22/19 05:28 Red Blood Count 3.40 L, Mean Corpuscular Volume 94.1, Mean Corpuscular Hemoglobin 28.8, Mean Corpuscular Hemoglobin Concent 30.6 L, Red Cell Distribution Width 16.8 H, Neutrophils (%) (Auto) 64.6, Lymphocytes (%) (Auto) 15.2 L, Monocytes (%) (Auto) 10.9 H, Eosinophils (%) (Auto) 7.4 H, Basophils (%) (Auto) 0.7, Neutrophils # (Auto) 4.7, Lymphocytes # (Auto) 1.1 L, Monocytes # (Auto) 0.8, Eosinophils # (Auto) 0.5, Basophils # (Auto) 0.1, Calcium Level 7.5 L, Aspartate Amino Transf (AST/SGOT) 44 H, Alanine Aminotransferase (ALT/SGPT) 56, Alkaline Phosphatase 390 H, Total Bilirubin 0.3, Total Protein 5.5 L, Albumin 1.8 L Microbiology Microbiology 01/16/19 Acid Fast Stain, Received Pending 01/16/19 Mycobacterial Culture, Received Pending 01/16/19 Fungal Smear, Received Pending 01/16/19 Fungal Culture, Received Pending 01/16/19 Gram Stain - Final, Complete 01/16/19 Body Fluid Culture - Final, Complete 01/16/19 Anaerobic Culture - Final, Complete 01/13/19 Gram Stain - Final, Complete 01/13/19 Body Fluid Culture - Final, Complete 01/13/19 Acid Fast Stain, Received Pending 01/13/19 Mycobacterial Culture, Received Pending 01/13/19 Fungal Smear, Received Pending 01/13/19 Fungal Culture, Received Pending CHARLEY DENNISON MD Jan 22, 2019 20:33
[2019-01-22] MEDS: traZODone 100 MG TAB PO SCH (21:11)
[2019-01-22] MEDS: SIMVASTATIN 20 MG TAB PO SCH (21:11)
[2019-01-22] MEDS: SILVER SULFADIAZINE 1% CR 50 GM JAR TOP SCH (21:12)
[2019-01-22 22:00] VITALS: BP 115/62
[2019-01-23 06:00] VITALS: BP 163/71
[2019-01-23] MEDS: LEVOTHYROXINE 125MCG TABLET (0.125MG) PO SCH (06:03)
[2019-01-23] MEDS: hydrOXYzine 25 MG TAB PO PRN ×3 (06:03→21:22)
--- NOTE | 2019-01-23 06:47 | IPN ---
DATE OF SERVICE: 01/22/2019 SUBJECTIVE: Patient was seen and examined at the bedside today morning. Patient is very sad and tearful today. Her in the hospital yesterday because of septic shock. Today is patient's regular day of dialysis. She still reports persistent left foot pain but patient wants to go home at this point and she is requesting to be discharged after dialysis. OBJECTIVE: Vital signs: Temperature is 96.8 degrees Fahrenheit, blood pressure 113/57, pulse 57, respiratory rate 16, saturating 93% on room air. Intake and output: There is no urine output recorded. Weight on the bed scale is 80 kg. PHYSICAL EXAMINATION: General: Patient is awake, alert, oriented times three, lying in bed, no apparent distress. Head and neck exam: Extraocular muscles intact. Pupils equally round and reactive to light. Mucous membranes are moist. Neck is supple, there is no jugular venous distention (JVD). Cardiovascular: S1, S2. 2+ edema of the bilateral lower extremities. Abdominal wall edema was also noted. Respiratory: Mildly decreased breath sounds at the bases with mild inspiratory crackles. Abdomen is soft, positive abdominal wall edema. Positive mild amount of ascites is also noted. Musculoskeletal: Left foot is covered in a dressing because of an ulcer. 2+ edema of the bilateral lower extremities as mentioned above. Central nervous system: No focal neurological deficit. Power is 5/5 in bilateral upper extremities. Psych: Patient has a depressed mood and she is tearful today. LAB REVIEW: CBC showed WBC 7.3, hemoglobin 9.8, platelets are 137. BMP showed sodium 136, potassium 4.8, chloride 102, bicarbonate 25, BUN 79, creatinine is 6.2. C-reactive protein is 4.8. CURRENT INPATIENT MEDICATIONS: Patient's medications were all reviewed by me. There is no change in the medications today as compared with yesterday. ASSESSMENT AND PLAN: 1. Endstage renal disease. Patient is hemodialysis dependent. She is on dialysis Tuesday, Tuesday, Tuesday. Today is regular day of dialysis. I will try to remove at least 3 kg of fluid as tolerated by her blood pressure. 2. Chronic decompensated diastolic congestive heart failure. Patient is chronically noncompliant with fluid restriction and with dialysis, she misses multiple sessions of hemodialysis as outpatient and she gains a lot of weight in-between hemodialysis sessions. She has been admitted multiple times with fluid overload. At this point, she still has a lot of fluid overload as well. I will do hemodialysis today and if needed, she will get another session of ultrafiltration. Continue fluid restriction 1.5 liter daily. 3. Cirrhosis of the liver with ascites. Patient got ascitic tap done during this hospitalization. The rest of the volume management is with hemodialysis and ultrafiltration. 4. Anemia and endstage renal disease. Hemoglobin is suboptimal. Patient has been started on Aranesp with hemodialysis.
[2019-01-23] MEDS: HumaLOG INSULIN (NovoLOG) PER UNIT SC SCH ×4 (07:52→21:00)
[2019-01-23] MEDS: CLOPIDOGREL 75 MG TAB PO SCH (07:53)
[2019-01-23] MEDS: CALCIUM CARBONATE 500 MG CHEW U/D PO SCH ×3 (07:53→17:38)
[2019-01-23] MEDS: rOPINIRole 2MG TAB PO SCH ×2 (07:53→21:22)
[2019-01-23] MEDS: LEVEMIR (INSULIN DETEMIR) 1 UNITS/0.01ML SC SCH (07:53)
[2019-01-23] MEDS: PANTOPRAZOLE 40MG TAB (PROTONIX) PO SCH (07:53)
[2019-01-23] MEDS: EUCERIN 120GM CREAM EXT SCH ×2 (07:54→21:23)
[2019-01-23] MEDS: CALCIUM ACETATE 667 MG GELCAP PO SCH ×3 (07:54→17:38)
[2019-01-23] MEDS: METOPROLOL SUCC (TopROL XL) 100MG *XL* TAB PO SCH ×2 (07:54→21:22)
[2019-01-23] MEDS: **hydrALAZINE HCL** 25 MG TAB PO SCH ×2 (07:54→16:46)
[2019-01-23] MEDS: GABAPENTIN 100 MG CAP PO SCH ×2 (07:54→21:22)
[2019-01-23] MEDS: diphenhydrAMINE CREAM 30GM TOP SCH ×3 (07:55→21:23)
[2019-01-23] MEDS: SILVER SULFADIAZINE 1% CR 50 GM JAR TOP SCH (07:55)
[2019-01-23] MEDS: ANALGESIC BALM CRM 120 GM TOP SCH ×4 (07:57→21:00)
[2019-01-23 08:19] LABS: BASO % 0.5 % (0.0-1.0); EOS # 0.4 10^3/uL (0.0-0.50); EOS % 4.9 % (0.0-3.0); HEMATOCRIT 34.7 % (36.0-47.0); HEMOGLOBIN 10.6 g/dl (12.0-15.5); LYMPH # 0.8 10^3/uL (1.5-4.5); LYMPH % 11.3 % (24.0-44.0); MEAN CORPUSCULAR HEMOGLOBIN 29.2 pg (27.0-33.0); MEAN CORPUSCULAR HGB CONC 30.5 g/dl (32.0-36.5); MEAN CORPUSCULAR VOLUME 95.6 fl (80.0-96.0); MONO # 0.6 10^3/uL (0.0-0.8); MONO % 8.5 % (0.0-5.0); NEUTROPHILS # 5.5 10^3/uL (1.8-7.7); NEUTROPHILS % 73.6 % (36.0-66.0); PLATELET COUNT, AUTOMATED 122 10^3/uL (150-450); RED BLOOD COUNT 3.63 10^6/uL (4.00-5.40); WHITE BLOOD COUNT 7.4 10^3/uL (4.0-10.0)
[2019-01-23 08:46] LABS: ALBUMIN 1.9 GM/DL (3.2-5.2); BILIRUBIN,TOTAL 0.3 MG/DL (0.2-1.0); CALCIUM LEVEL 7.3 MG/DL (8.8-10.2); CREATININE FOR GFR 4.15 MG/DL (0.55-1.30); GLOMERULAR FILTRATION RATE 11.3 (>39); MAGNESIUM LEVEL 1.9 MG/DL (1.8-2.4); POTASSIUM SERUM 4.2 MEQ/L (3.5-5.1); TOTAL PROTEIN 5.8 GM/DL (6.4-8.2)
[2019-01-23] MEDS: CHOLESTYRAMINE 4 GM PWD PKT PO SCH ×2 (11:08→21:22)
[2019-01-23] MEDS: PERCOCET 5MG/325MG TAB PO PRN ×2 (12:55→18:56)
--- NOTE | 2019-01-23 13:41 | IPNPDOC ---
Text Note Date of Service The patient was seen on 01/23/19. NOTE Subjective: Patient is a 68 year old female with a PMHx of ESRD on HD (MWF), JUAN, Liver cirrhosis, CAD, Diastolic CHF, HTN, DM2 with Neuropathy, Hypothyroidism, Anemia, Obesity, Gout / Pseudogout presented to the ER after having multiple falls in the past week. Patient was found to have a left lower extremity ulcer that required intervention with podiatry. Patient was admitted to the hospital service for further evaluation and treatment. Patient was seen and examined at the bedside. Clinically patient is noting that she feels all right. She denies any nausea, vomiting, chest pain, shortness breath, palpitations. Denies any abdominal pain, constipation, diarrhea. Objective: Vitals (See below) General: Lying in bed, no acute distress, comfortable, AAOx3 HEENT: NC, AT CVS: RRR, +S1S2 Lungs: Fair air entry b/l, -w/r/r Abdomen: Soft, + Distention, NT Extremities: - Edema, - Calf tenderness Assessment and plan: Frequent falls / gait imbalance - likely 2/2 chronic left foot ulcer - Will need rehab or 24/ care Anasarca with large ascites - likely 2/2 liver cirrhosis - suspected to be 2/2 AMADOR - Clinically she notes that she's not have any abdominal pain or shortnes of breath - Physical with abdominal distention without any tension (remains soft) - Hepatitis panel - Autoimmune workup pending - s/p paracentesis x2 - Dr. Weinberg consulted; awaiting input Non-compliance - Has been noted to be non-complaint with deitary restrictions - Has missed HD in the past - Advised importance of compliance and follow up Chronic left foot ulcer - s/p Debridement with Dr. Baeza - Dr. Baeza on consult Diarrhea, Chronic - no bowel regimen - no electrolyte abnormalities - c/w Imodium PRN Acute left 7th rib fracture with associated small pneumothorax - c/w pain control Back pain / Diabetic neuropathy - c/w gabapentin. ESRD on HD (MWF) with hyperphosphatemia and secondary hyperparathyroidism - c/w HD (MWF) HTN - BP well controlled - c/w Hydralazine and Metoprolol Anemia - likely 2/2 AOCD - Hg remains stable CAD - c/w Statin and Metoprolol - Plavix on hold (re: possible paracentesis) DM2 - c/w ISS and Levemir Hypothyroidism - c/w Levothyroxine DLP - c/w Simvastatin RLS - c/w Ropinirole Neck muscle strain - c/w topical ointment JUAN on CPAP - no acute issues now Gout / Pseudogout - Hx of elevated uric acid Depression / Anxiety - c/w Trazodone / Anxiety GERD - c/w Protonix DVT prophylaxis - c/w TEDs/Sequentials Disposition: - Looking into 20/06 care at home VS,Hannah, I+O VS, Hannah, I+O Laboratory Tests 01/23/19 07:52 Red Blood Count 3.63 L, Mean Corpuscular Volume 95.6, Mean Corpuscular Hemoglobin 29.2, Mean Corpuscular Hemoglobin Concent 30.5 L, Red Cell Distribution Width 17.0 H, Neutrophils (%) (Auto) 73.6 H, Lymphocytes (%) (Auto) 11.3 L, Monocytes (%) (Auto) 8.5 H, Eosinophils (%) (Auto) 4.9 H, Basophils (%) (Auto) 0.5, Neutrophils # (Auto) 5.5, Lymphocytes # (Auto) 0.8 L, Monocytes # (Auto) 0.6, Eosinophils # (Auto) 0.4, Basophils # (Auto) 0.0, Calcium Level 7.3 L, Aspartate Amino Transf (AST/SGOT) 44 H, Alanine Aminotransferase (ALT/SGPT) 54, Alkaline Phosphatase 405 H, Total Bilirubin 0.3, Total Protein 5.8 L, Albumin 1.9 L Vital Signs Date Time Temp Pulse Resp B/P (MAP) Pulse Ox O2 Delivery O2 Flow Rate FiO2 01/23/19 07:54 163/71 01/23/19 07:54 62 01/23/19 06:00 98.6 20 94 I&O- Last 24 Hours up to 6 AM 01/23/19 06:00 Intake Total 1300 ml Output Total 1500 ml Balance -200 ml JENELLE CARRIZALES MD Jan 23, 2019 13:41
[2019-01-23 14:00] VITALS: BP 116/58
[2019-01-23] MEDS: LOPERAMIDE 2 MG CAP PO PRN (17:42)
[2019-01-23] MEDS: traZODone 100 MG TAB PO SCH (21:22)
[2019-01-23] MEDS: SIMVASTATIN 20 MG TAB PO SCH (21:22)
[2019-01-23 22:00] VITALS: BP 109/51
[2019-01-23 22:45] VITALS: BP 130/84
--- NOTE | 2019-01-23 23:28 | IPN ---
DATE: 01/23/2019 SUBJECTIVE: The patient was seen and examined at the bedside today, morning. She is afebrile, hemodynamically stable. She was sitting up in the bed. She was dialyzed yesterday, only 1.5 liters of fluid was removed because her blood pressure was dropping. The patient is still requesting that she wants to go home. Her this week in the hospital, and the patient does not want to stay in the hospital anymore. However, she still has difficulty walking because of a large left-sided foot ulcer because of Charcot foot. OBJECTIVE: VITAL SIGNS: Temperature is 97.7 degrees Fahrenheit, blood pressure 116/58, pulse is 61, respiratory rate of 18, saturating 94% on room air. INTAKE/OUTPUT: There is no urine output recorded. Ultrafiltration with hemodialysis was 1.5 liters. Weight on the bed scale is 77.9 kg. PHYSICAL EXAMINATION: GENERAL: The patient is awake, alert, oriented times three, sitting up in the bed, in no apparent distress. HEAD AND NECK EXAM: Extraocular muscles intact. Pupils equally round and reactive to light. Mucous membranes are moist. Neck is supple. There is no jugular venous distention (JVD). CARDIOVASCULAR: S1, S2. 1+ edema of the bilateral lower extremities. RESPIRATORY: Mildly decreased breath sounds at the bases, otherwise no active rales or rhonchi. ABDOMEN: Abdomen is soft. Positive bowel sounds. Abdominal wall edema was noted. MUSCULOSKELETAL: Left foot is covered with a dressing. 1+ edema of the bilateral lower extremities. CENTRAL NERVOUS SYSTEM: No focal deficit. Power is 5/5 in bilateral upper extremities. PSYCHIATRIC: The patient has a depressed mood. LAB REVIEW: CBC showed a WBC of 7.4, hemoglobin 10.6, platelets are 122. BMP showed sodium 137, potassium 4.2, chloride 101, bicarbonate 26, BUN 42, creatinine is 4.1, albumin 1.9. CURRENT INPATIENT MEDICATIONS: The patient's medications were all reviewed by me. No change in the medications today as compared with yesterday. ASSESSMENT AND PLAN: 1. End-stage renal disease, on hemodialysis. Patient is being dialyzed according to Tuesday, Tuesday, Tuesday schedule. She was dialyzed yesterday, 1.5 liters of fluid was removed. Next hemodialysis session will be tomorrow. 2. Chronic decompensated diastolic congestive heart failure. Patient is chronically noncompliant with fluid restriction. She misses multiple hemodialysis sessions as an outpatient as well. Volume status is slowly improving. She could not tolerate much ultrafiltration yesterday because of drop in blood pressure. 3. Anemia in end-stage renal disease. Hemoglobin is 10.6, which is optimal. Continue current dose of Aranesp 100 mcg IV with hemodialysis. 4. Left foot ulcer. The patient has Charcot feet because of diabetes. Dr. Baeza consult has been requested for further evaluation of her foot ulcer. 5. Hypertension with end-stage renal disease. Continue current dose of hydralazine 25 mg by mouth three times a day. Continue metoprolol 100 mg by mouth twice a day.
[2019-01-24 00:06] LABS: ANTI DOUBLE STRAND-DNA AB 27 IU/mL (0-9); ANTI-MITOCHONDRIAL ANTIBODY <20.0 Units (0.0-20.0); ANTINUCLEAR ANTIBODIES DIRECT Positive (Negative); RNP ANTIBODIES 0.2 AI (0.0-0.9); SJOGREN'S ANTI SS-A <0.2 AI (0.0-0.9); SJOGREN'S ANTI SS-B <0.2 AI (0.0-0.9); SMITH ANTIBODIES <0.2 AI (0.0-0.9)
[2019-01-24] MEDS ORDERED: PANTOPRAZOLE 40MG TAB (PROTONIX) As Ordered ONE (05:56)
[2019-01-24] MEDS ORDERED: **hydrALAZINE HCL** 25 MG TAB As Ordered ONE (05:57)
[2019-01-24] MEDS ORDERED: LOSARTAN 50 MG TAB As Ordered ONE (05:57)
[2019-01-24] MEDS ORDERED: CALCIUM CARBONATE 500 MG CHEW U/D As Ordered ONE (05:58)
[2019-01-24] MEDS ORDERED: METOPROLOL SUCC (TopROL XL) 100MG *XL* TAB As Ordered ONE (05:58)
[2019-01-24] MEDS ORDERED: LEVOTHYROXINE 125MCG TABLET (0.125MG) As Ordered ONE (05:58)
[2019-01-24] MEDS ORDERED: CLOPIDOGREL 75 MG TAB As Ordered ONE (05:58)
[2019-01-24] MEDS ORDERED: GABAPENTIN 100 MG CAP As Ordered ONE (05:59)
[2019-01-24 06:00] VITALS: BP 128/63
[2019-01-24] MEDS: CLOPIDOGREL 75 MG TAB PO SCH (06:49)
[2019-01-24] MEDS: CALCIUM CARBONATE 500 MG CHEW U/D PO SCH ×2 (06:49→11:33)
[2019-01-24] MEDS: LEVOTHYROXINE 125MCG TABLET (0.125MG) PO SCH (06:49)
[2019-01-24] MEDS: CALCIUM ACETATE 667 MG GELCAP PO SCH ×2 (06:49→11:33)
[2019-01-24] MEDS: rOPINIRole 2MG TAB PO SCH (06:49)
[2019-01-24] MEDS: PANTOPRAZOLE 40MG TAB (PROTONIX) PO SCH (06:49)
[2019-01-24 06:50] VITALS: BP 128/63
[2019-01-24] MEDS: GABAPENTIN 100 MG CAP PO SCH (06:50)
[2019-01-24] MEDS: METOPROLOL SUCC (TopROL XL) 100MG *XL* TAB PO SCH (06:50)
[2019-01-24 08:13] LABS: HEMOGLOBIN 12.1 g/dl (12.0-15.5); MEAN CORPUSCULAR HEMOGLOBIN 29.5 pg (27.0-33.0); MEAN CORPUSCULAR HGB CONC 30.3 g/dl (32.0-36.5); MEAN CORPUSCULAR VOLUME 97.6 fl (80.0-96.0); PLATELET COUNT, AUTOMATED 131 10^3/uL (150-450); WHITE BLOOD COUNT 8.1 10^3/uL (4.0-10.0)
[2019-01-24 08:37] LABS: ALBUMIN 2.2 GM/DL (3.2-5.2); BILIRUBIN,TOTAL 0.4 MG/DL (0.2-1.0); CALCIUM LEVEL 7.7 MG/DL (8.8-10.2); CREATININE FOR GFR 5.32 MG/DL (0.55-1.30); GLOMERULAR FILTRATION RATE 8.5 (>39); MAGNESIUM LEVEL 2.2 MG/DL (1.8-2.4); POTASSIUM SERUM 4.7 MEQ/L (3.5-5.1); TOTAL PROTEIN 6.6 GM/DL (6.4-8.2)
[2019-01-24] MEDS ORDERED: INSUDET SC (08:39)
[2019-01-24] MEDS ORDERED: LEVO125T4 PO (08:39)
[2019-01-24] MEDS ORDERED: ROPI2TAB PO (08:39)
[2019-01-24] MEDS ORDERED: COZA50TA PO (08:39)
[2019-01-24] MEDS: HumaLOG INSULIN (NovoLOG) PER UNIT SC SCH ×2 (08:59→11:34)
[2019-01-24] MEDS: EUCERIN 120GM CREAM EXT SCH (09:00)
[2019-01-24] MEDS: diphenhydrAMINE CREAM 30GM TOP SCH (09:00)
[2019-01-24] MEDS ORDERED: LOSARTAN 50 MG TAB PO SCH (09:00)
[2019-01-24] MEDS: SILVER SULFADIAZINE 1% CR 50 GM JAR TOP SCH (09:00)
[2019-01-24] MEDS: ANALGESIC BALM CRM 120 GM TOP SCH (09:00)
[2019-01-24] MEDS: LEVEMIR (INSULIN DETEMIR) 1 UNITS/0.01ML SC SCH (09:00)
[2019-01-24] MEDS: CHOLESTYRAMINE 4 GM PWD PKT PO SCH (11:00)
--- NOTE | 2019-01-24 13:03 | DS.PDOC ---
Discharge Summary General Date of Admission Jan 10, 2019 at 14:27 Date of Discharge 01/24/2019 Discharge Summary PROCEDURES PERFORMED DURING STAY: Dr. Baeza: 01/12/2019: Debridement of left heel ADMITTING DIAGNOSES / DISCHARGE DIAGNOSES: Frequent falls / gait imbalance - likely 2/2 chronic left foot ulcer Anasarca with large ascites - likely 2/2 liver cirrhosis - suspected to be 2/2 AMADOR Non-compliance Chronic left foot ulcer Diarrhea, Chronic Acute left 7th rib fracture with associated small pneumothorax Back pain / Diabetic neuropathy ESRD on HD (MWF) with hyperphosphatemia and secondary hyperparathyroidism HTN Anemia - likely 2/2 AOCD CAD DM2 Hypothyroidism DLP RLS Neck muscle strain JUAN on CPAP Gout / Pseudogout Depression / Anxiety GERD DVT prophylaxis COMPLICATIONS/CHIEF COMPLAINT: Left foot ulcer and falls HISTORY OF PRESENT ILLNESS: Patient is a 68 year old female with a PMHx of ESRD on HD (MWF), JUAN, Liver cirrhosis, CAD, Diastolic CHF, HTN, DM2 with Neuropathy, Hypothyroidism, Anemia, Obesity, Gout / Pseudogout presented to the ER after having multiple falls in the past week. Patient was found to have a left lower extremity ulcer that required intervention with podiatry. Patient was admitted to the hospital service for further evaluation and treatment. HOSPITAL COURSE: Frequent falls / gait imbalance - likely 2/2 chronic left foot ulcer - Will need rehab or 20/06 care - PFS has worked on establishing 20/06 coverage with family members as an outpatient; will need to follow up with several providers Anasarca with large ascites - likely 2/2 liver cirrhosis - suspected to be 2/2 AMADOR - Clinically she notes that she's not have any abdominal pain or shortness of breath - Physical with abdominal distention without any tension (remains soft) - Hepatitis panel - Autoimmune workup pending - s/p paracentesis x2 - Patient does not want to have another paracentesis performed and wants to be discharged today for arrangements for her - Dr. Weinberg consulted; Will have outpatient follow up Non-compliance - Has been noted to be non-complaint with dietary restrictions - Has missed HD in the past - Advised importance of compliance and follow up and staying on a low salt diet to prevent fluid accumulation Chronic left foot ulcer - s/p Debridement with Dr. Baeza - Dr. Baeza on consult Diarrhea, Chronic - no bowel regimen - no electrolyte abnormalities - c/w Imodium PRN Acute left 7th rib fracture with associated small pneumothorax - c/w pain control Back pain / Diabetic neuropathy - c/w gabapentin. ESRD on HD ([facility]) with hyperphosphatemia and secondary hyperparathyroidism - c/w HD ([facility]) HTN - BP well controlled - c/w Hydralazine and Metoprolol Anemia - likely 2/2 AOCD - Hg remains stable CAD - c/w Statin and Metoprolol - Plavix on hold (re: possible paracentesis) - will be resumed on discharge DM2 - c/w ISS and Levemir Hypothyroidism - c/w Levothyroxine DLP - c/w Simvastatin RLS - c/w Ropinirole Neck muscle strain - c/w topical ointment JUAN on CPAP - no acute issues now Gout / Pseudogout - Hx of elevated uric acid Depression / Anxiety - c/w Trazodone / Anxiety GERD - c/w Protonix DVT prophylaxis - c/w TEDs/Sequentials DISCHARGE MEDICATIONS: Please see below. ALLERGIES: Please see below. PHYSICAL EXAMINATION ON DISCHARGE: Vitals (See below) General: Lying in bed, no acute distress, comfortable, AAOx3 HEENT: NC, AT CVS: RRR, +S1S2 Lungs: Fair air entry b/l, no evidence of wheezing / rhonchi / rales Abdomen: Soft, mild distension, not tense, non-tender Extremities: - Edema, - Calf tenderness LABORATORY DATA: Please see below. ACTIVITY: [As tolerated]. DISCHARGE PLAN: Follow up with Dr. Susan Pineda, Dr. Grullon, Dr. Weinberg, and Dr. Baeza within 7 days Remain compliant with treatment plan and medications Return to the ER if you experience any problems DISPOSITION: Home with services DISCHARGE CONDITION: [Stable]. TIME SPENT ON DISCHARGE: Greater than [35] minutes. Vital Signs/I&Os Vital Signs Date Time Temp Pulse Resp B/P (MAP) Pulse Ox O2 Delivery O2 Flow Rate FiO2 01/24/19 06:50 63 128/63 01/24/19 06:00 97.4 20 96 I&O- Last 24 Hours up to 6 AM 01/24/19 06:00 Intake Total 1360 ml Output Total 0 ml Balance 1360 ml Laboratory Data Labs 24H Laboratory Tests 2 01/23/19 16:33: Bedside Glucose (Misc Panel) 194H 01/23/19 21:23: Bedside Glucose (Misc Panel) 186H 01/24/19 07:24: Nucleated Red Blood Cells % (auto) 0.0, Anion Gap 9, Glomerular Filtration Rate 8.5L, Blood Urea Nitrogen 60H, Creatinine 5.32H, Sodium Level 134L, Potassium Le tonya 4.7, Chloride Level 102, Carbon Dioxide Level 23, Calcium Level 7.7L, Aspartate Amino Transf (AST/SGOT) 48H, Alanine Aminotransferase (ALT/SGPT) 53, Alkaline Phosphatase 384H, Total Bilirubin 0.4, Total Protein 6.6, Albumin 2.2L, Magnesium Level 2.2, Albumin/Globulin Ratio 0.50L 01/24/19 11:27: Bedside Glucose (Misc Panel) 200H CBC/BMP Laboratory Tests 01/24/19 07:24 Red Blood Count 4.10, Mean Corpuscular Volume 97.6 H, Mean Corpuscular Hemoglobin 29.5, Mean Corpuscular Hemoglobin Concent 30.3 L, Red Cell Distribution Width 17.4 H, Calcium Level 7.7 L, Aspartate Amino Transf (AST/SGOT) 48 H, Alanine Aminotransferase (ALT/SGPT) 53, Alkaline Phosphatase 384 H, Total Bilirubin 0.4, Total Protein 6.6, Albumin 2.2 L FSBS Laboratory Tests Test 01/23/19 16:33 01/23/19 21:23 01/24/19 11:27 Range/Units Bedside Glucose (Misc Panel) 194 186 200 83-110 MG/DL Microbiology Microbiology 01/16/19 Acid Fast Stain, Received Pending 01/16/19 Mycobacterial Culture, Received Pending 01/16/19 Fungal Smear, Received Pending 01/16/19 Fungal Culture, Received Pending 01/16/19 Gram Stain - Final, Complete 01/16/19 Body Fluid Culture - Final, Complete 01/16/19 Anaerobic Culture - Final, Complete Discharge Medications Scheduled (Concepcion-Bid Probiotic) 1 Tab Tab, 1 TAB PO BID, (Reported) Calcium Acetate (Calcium Acetate) 667 Mg Tab, 667 MG PO WM, (Reported) Calcium Carbonate (Tums) 500 Mg Chw, 500 MG PO WM, (Reported) Clopidogrel Bisulfate (Plavix) 75 Mg Tab, 75 MG PO DAILY, (Reported) Gabapentin (Gabapentin) 100 Mg Cap, 100 MG PO BID, (Reported) Hydralazine HCl (Hydralazine HCl) 25 Mg Tab, 25 MG PO TID, (Reported) Insulin Detemir (Levemir) 1 Units/0.01 Ml Susp, 20 UNITS SC DAILY Insulin Human Lispro (Humalog) 100 Unit/Ml Inj, 1 DOSE SC AC, (Reported) PER SLIDING SCALE Levothyroxine Sodium (Synthroid) 125 Mcg Tab, 125 MCG PO DAILY@06 Losartan Potassium (Cozaar) 50 Mg Tab, 50 MG PO DAILY Metoprolol Succinate (Metoprolol Succinate ER) 100 Mg Tab, 100 MG PO BID, (Reported) Pantoprazole Sodium (Pantoprazole Sodium) 40 Mg Tab, 40 MG PO DAILY, (Reported) Ropinirole Hydrochloride (Ropinirole HCl) 2 Mg Tab, 4 MG PO BID Silver Sulfadiazine (Ssd) 1 % Cre, 1 DOSE TOP DAILY, (Reported) WITH DRESSING CHANGES ON FOOT Simvastatin (Simvastatin) 20 Mg Tab, 20 MG PO QHS, (Reported) Trazodone HCl (Trazodone HCl) 100 Mg Tab, 100 MG PO QHS, (Reported) Scheduled PRN (Lidocaine) 5 % Pad, 1 PATCH TOP DAILY PRN for PAIN, (Reported) APPLY TO BACK Docusate Sod/Senna (Senna S 8.6-50 mg) 1 Tab Tab, 1 TAB PO BID PRN for CONSTIPATION, (Reported) Nystatin (Nystatin Oint) 30 Gm Oint, 1 DOSE TOP BID PRN for REDNESS/IRRITATION, (Reported) APPLY TO ABDOMINAL FOLDS Allergies Coded Allergies: Pregabalin (Verified Adverse Reaction, Intermediate, CONFUSION, 03/16/17) Vancomycin (Verified Adverse Reaction, Intermediate, itching, 09/08/17) pt iv ? infitrate, co of puritis and benadryl ordered for localized topical itching and redness, cool compress no other adverse reactions noted JENELLE CARRIZALES MD Jan 24, 2019 13:02
[2019-01-24 14:00] VITALS: BP 125/62
--- NOTE | 2019-01-24 14:21 | IPN ---
DATE OF SERVICE: 01/24/2019 SUBJECTIVE: The patient was seen and examined at the bedside today, morning. Today is patient's regular day of dialysis, however, patient is requesting to go home and she is agreeing to have the dialysis done as an outpatient. She needs to go home and make preparations for her 's upcoming this Tuesday. OBJECTIVE: VITAL SIGNS: Temperature is 97.4 degrees Fahrenheit, blood pressure 128/63, pulse is 63, respiratory rate of 20, saturating 96% on room air. INTAKE/OUTPUT: Urine output is not recorded. Weight on the bed scale was 77.9 yesterday. PHYSICAL EXAMINATION: GENERAL: The patient is awake, alert, oriented times three, sitting up in the bed, in no apparent distress. HEAD AND NECK EXAM: Extraocular muscles intact. Pupils equally round and reactive to light. Mucous membranes are moist. Neck is supple. There is no jugular venous distention (JVD). CARDIOVASCULAR: S1, S2. 1+ edema of the bilateral lower extremities. RESPIRATORY: Chest is clear to auscultation bilaterally. Bilateral equal air entry. No rales or rhonchi. ABDOMEN: Abdomen. Obese. Positive bowel sounds. Positive abdominal wall edema was noted. MUSCULOSKELETAL: Left foot has an ulcer which is covered with a dressing. CENTRAL NERVOUS SYSTEM: No focal deficit. Power is 5/5 in bilateral upper extremities. PSYCHIATRIC: She has a depressed mood and she is tearful. LAB REVIEW: CBC showed a WBC of 8.1, hemoglobin 12.1, platelets of 131. BMP showed sodium 134, potassium 4.7, chloride 102, bicarbonate 23, BUN 60, creatinine is 5.2, magnesium 2.2, albumin 2.2. CURRENT INPATIENT MEDICATIONS: The patient's medications were all reviewed by me. Her hydralazine was stopped yesterday because of persistent lower extremity edema. She has been started on losartan 50 mg by mouth daily. No other change in the medications today as compared with yesterday. ASSESSMENT AND PLAN: 1. End-stage renal disease on hemodialysis. Patient's regular dialysis days are Tuesday, Tuesday, Tuesday. The patient is requesting to be discharged today. She will be dialyzed today as outpatient in the afternoon. 2. Chronic decompensated diastolic congestive heart failure. Patient's volume status is getting better. The patient is chronically noncompliant with fluid restriction. I advised her to continue to follow the fluid restriction 1.5 liters daily and not to miss her hemodialysis as outpatient. I will try to remove at least 2.5 kg of fluid during dialysis as outpatient. 3. Hypertension. Continue current dose of metoprolol 100 mg by mouth twice a day. Hydralazine has been stopped because of persistent lower extremity edema. She has been started on losartan 50 mg daily. 4. Anemia and end stage renal disease. Hemoglobin is optimal at this point. The rest of the anemia management will be done as outpatient. 5. Left foot ulcer. The patient has Charcot ulcer on the left foot. She will follow up with podiatry as an outpatient.
--- NOTE | 2019-01-25 00:33 | CR.PDOC ---
General Date of Consultation: Jan 23, 2019 Referring Provider: JENELLE OWEN MD Attending Physician: HELEN BAKER MD Consultation Primary physician/ hospitalist: Dr. Owen Reason for consult: Cirrhosis of liver and ascites. HPI: 68-year-old female patient with insulin-dependent diabetes mellitus, charcot foot, HTN, Hypothyroidism, ESRD on hemodialysis through left arm AVF, CAD s/p PCI around 2 years ago as per patient, on Plavix, was admitted to hospital for multiple falls. Patient also noted with worsening abdominal distention, which was tapped twice - noted to be portal hypertensive ascites, but no SBP. GI was consulted for further management of ascites. Patient's who was also admitted to hospital has recently been removed off life support and few days ago in ICU, so the consult was postponed as patient was greiving. Today patient is examined bedside and detailed history obtained. Patient reports no prior diagnosis of cirrhosis. Patient noted worsening abdominal distention, with slight discomfort, loss of appetitie, but no pain, associated with pressure on chest with difficulty with breathing initially but after paracentesis it got better. Patient denies alcohol use, no prior IVDA or blood transfusions. Patient also reprots leg swelling. Patient ibarra produce small amount of urine only and has been on dialysis but not very compliant with sessions as per home office claim specialist. Pertinent negative GI symptoms: Patient denies nausea, vomiting, diarrhea, early satiety or unintentional weight loss. No history of hematemesis, melena or hematochezia. Patient deneis prior heavy alcohol anytime. Review of Systems: GI: as stated above CVS: No chest pain, No palpitations, has bilateral leg swelling. RS: No Shortness of breath, No Wheezing, no cough WATER QUALITY ANALYST: No dizziness, No motor weakness, No sensory problems Hematology: No bruising, No gum bleeding, Musculoskeletal: No joint pain, ambulating well. Skin: No rash : No hematuria, proceduces small amount of urine. ENT: No ear discharge/ pain, No dysphagia. Eyes: No photophobia. Home medications: reviewed. Antithrombotic agents - Asa and plavix for CAD with stents ( placed around 2 years ago as per pateint). Medical h/o: As above. Surgical h/o: None on abdomen. Social h/o: Alcohol- Denies , tobacco- Denies , IVDA/ drugs- Denies . Family h/o of GI cancers - none. Prior Endoscopies: --- EGD and Colonoscopy - in [address] Beckman . reports in Prov[place]. Prior GI evaluation: Follows with Dr. Beckman. Exam: Vitals: reviewed General: Alert and oriented x 3, Miild distress from abdominal distention. HEENT: NO pallor, no icterus. Normal oropharynx, NO cervical lymph nodes. Chest: symmetric with bilateral clear air entry, CVS: S1, S2 heard, normal, no murmurs . Abdomen: mild to moderately distended, shifting dullness, no surgical scars, soft, non-tender, no palpable masses, normal bowel sounds heard. Rectal exam: Patient refused / Deferred at this time in view of scheduled co lonoscopy. Extremities: no pedal edema, pulses palpable. WATER QUALITY ANALYST: no focal motor or sensory deficits. Moves all extremities Skin: no rash. Labs: reviewed. Acute viral hepatitis work up negative in 2018. AMA - negative Ascitic fluid analysis -- SAAG > 1.1. no SBP. Impression: -- Liver cirrhosis with unclear etiology - likely AMADOR vs r/o autoimmune hepatitis, with refractory ascites. ( patient is ESRD on dialysis and produce very little urine).-- Needs further evaluation. Recommendations: - Patient educated about the test results, possible differential diagnoses and All questions answered. - All options of diagnostic work up and treatment options educated to patient. - Extensively discussed a low sodium diet, adequate protein diet. Avoid NSAIDs, hepatotoxic medications. - Discussed with nephrology for additional fluid removal during dialysis. - Unfortunately if patient cannot control the ascites with dietary change or dialysis related fluid removal then might need IR drainge of fluid Plan of care discussed with patient and primary team. Patient verbalized understanding and agreed with the plan. Laboratory Data Labs 24H Laboratory Tests 2 01/24/19 07:24: Nucleated Red Blood Cells % (auto) 0.0, Anion Gap 9, Glomerular Filtration Rate 8.5L, Blood Urea Nitrogen 60H, Creatinine 5.32H, Sodium Level 134L, Potassium Level 4.7, Chloride Level 102, Carbon Dioxide Level 23, Calcium Level 7.7L, Aspartate Amino Transf (AST/SGOT) 48H, Alanine Aminotransferase (ALT/SGPT) 53, Alkaline Phosphatase 384H, Total Bilirubin 0.4, Total Protein 6.6, Albumin 2.2L, Magnesium Level 2.2, Albumin/Globulin Ratio 0.50L 01/24/19 11:27: Bedside Glucose (Misc Panel) 200H CBC/BMP Laboratory Tests 01/24/19 07:24 Red Blood Count 4.10, Mean Corpuscular Volume 97.6 H, Mean Corpuscular Hemoglobin 29.5, Mean Corpuscular Hemoglobin Concent 30.3 L, Red Cell Distribution Width 17.4 H, Calcium Level 7.7 L, Aspartate Amino Transf (AST/SGOT) 48 H, Alanine Aminotransferase (ALT/SGPT) 53, Alkaline Phosphatase 384 H, Total Bilirubin 0.4, Total Protein 6.6, Albumin 2.2 L Microbiology Microbiology 01/16/19 Acid Fast Stain, Received Pending 01/16/19 Mycobacterial Culture, Received Pending 01/16/19 Fungal Smear, Received Pending 01/16/19 Fungal Culture, Received Pending 01/16/19 Gram Stain - Final, Complete 01/16/19 Body Fluid Culture - Final, Complete 01/16/19 Anaerobic Culture - Final, Complete Allergies Coded Allergies: Pregabalin (Verified Adverse Reaction, Intermediate, CONFUSION, 03/16/17) Vancomycin (Verified Adverse Reaction, Intermediate, itching, 09/08/17) pt iv ? infitrate, co of puritis and benadryl ordered for localized topical itching and redness, cool compress no other adverse reactions noted Home Medications Scheduled (Concepcion-Bid Probiotic) 1 Tab Tab, 1 TAB PO BID, (Reported) Calcium Acetate (Calcium Acetate) 667 Mg Tab, 667 MG PO WM, (Reported) Calcium Carbonate (Tums) 500 Mg Chw, 500 MG PO WM, (Reported) Clopidogrel Bisulfate (Plavix) 75 Mg Tab, 75 MG PO DAILY, (Reported) Gabapentin (Gabapentin) 100 Mg Cap, 100 MG PO BID, (Reported) Hydralazine HCl (Hydralazine HCl) 25 Mg Tab, 25 MG PO TID, (Reported) Insulin Detemir (Levemir) 1 Units/0.01 Ml Susp, 20 UNITS SC DAILY, #1 Insulin Human Lispro (Humalog) 100 Unit/Ml Inj, 1 DOSE SC AC, (Reported) PER SLIDING SCALE Levothyroxine Sodium (Synthroid) 125 Mcg Tab, 125 MCG PO DAILY@06, #30 Losartan Potassium (Cozaar) 50 Mg Tab, 50 MG PO DAILY, #30 Metoprolol Succinate (Metoprolol Succinate ER) 100 Mg Tab, 100 MG PO BID, (Reported) Pantoprazole Sodium (Pantoprazole Sodium) 40 Mg Tab, 40 MG PO DAILY, (Reported) Ropinirole Hydrochloride (Ropinirole HCl) 2 Mg Tab, 4 MG PO BID, #120 Silver Sulfadiazine (Ssd) 1 % Cre, 1 DOSE TOP DAILY, (Reported) WITH DRESSING CHANGES ON FOOT Simvastatin (Simvastatin) 20 Mg Tab, 20 MG PO QHS, (Reported) Trazodone HCl (Trazodone HCl) 100 Mg Tab, 100 MG PO QHS, (Reported) Scheduled PRN (Lidocaine) 5 % Pad, 1 PATCH TOP DAILY PRN for PAIN, (Reported) APPLY TO BACK Docusate Sod/Senna (Senna S 8.6-50 mg) 1 Tab Tab, 1 TAB PO BID PRN for CONSTIPATION, (Reported) Nystatin (Nystatin Oint) 30 Gm Oint, 1 DOSE TOP BID PRN for REDNESS/IRRITATION, (Reported) APPLY TO ABDOMINAL FOLDS HELEN BAKER MD Jan 25, 2019 00:32
[2019-01-26 00:08] LABS: ALPHA 1 ANTITRYPSIN 169 mg/dL (90-200); ANCA-ATYPICAL <1:20 titer (Neg:<1:20); CYTOPLASMIC NEUTROP AB ANCA-C <1:20 titer (Neg:<1:20); PERINUCLEAR AB ANCA-P <1:20 titer (Neg:<1:20)
== END 2019-01-24 14:15 | disposition home health service (06) | DRG 40 ==
LOC: M ED 11:33 → EDBD 11:33 → M ED INP 16:05 → M MS5PR 20:55 → OBSVTOIN 01-10 14:27
PROVIDERS: ADMIT Internal Medicine; ATTEND Internal Medicine Nephrology
PROC: 0JDR0ZZ Extraction of Left Foot Subcutaneous Tissue and Fascia, Open Approach (ICD-10-PCS; principal; 2019-01-12)
PROC: 0W9G3ZZ Drainage of Peritoneal Cavity, Percutaneous Approach (ICD-10-PCS; 2019-01-13)
PROC: 30233N1 Transfusion of Nonautologous Red Blood Cells into Peripheral Vein, Percutaneous Approach (ICD-10-PCS; 2019-01-13)
DX: E11.610 Type 2 diabetes mellitus with diabetic neuropathic arthropathy (principal); I50.33 Acute on chronic diastolic (congestive) heart failure; N18.6 End stage renal disease; R18.8 Other ascites; I13.11 Hypertensive heart and chronic kidney disease without heart failure, with stage 5 chronic kidney disease, or end stage renal disease; N25.81 Secondary hyperparathyroidism of renal origin; E11.621 Type 2 diabetes mellitus with foot ulcer; R29.6 Repeated falls; E11.40 Type 2 diabetes mellitus with diabetic neuropathy, unspecified; K74.60 Unspecified cirrhosis of liver; S22.32XD Fracture of one rib, left side, subsequent encounter for fracture with routine healing; S27.0XXD Traumatic pneumothorax, subsequent encounter; K75.81 Nonalcoholic steatohepatitis (NASH); G47.33 Obstructive sleep apnea (adult) (pediatric); E03.9 Hypothyroidism, unspecified; I25.10 Atherosclerotic heart disease of native coronary artery without angina pectoris; M10.9 Gout, unspecified; G25.81 Restless legs syndrome; D63.1 Anemia in chronic kidney disease; F32.9 Major depressive disorder, single episode, unspecified; F41.9 Anxiety disorder, unspecified; K21.9 Gastro-esophageal reflux disease without esophagitis; E83.39 Other disorders of phosphorus metabolism; E66.9 Obesity, unspecified; R26.89 Other abnormalities of gait and mobility; Z91.19 Patient's noncompliance with other medical treatment and regimen; Z79.899 Other long term (current) drug therapy; Z79.4 Long term (current) use of insulin; Z88.8 Allergy status to other drugs, medicaments and biological substances; E78.5 Hyperlipidemia, unspecified; R19.7 Diarrhea, unspecified; L29.9 Pruritus, unspecified; W18.30XD Fall on same level, unspecified, subsequent encounter; Y92.009 Unspecified place in unspecified non-institutional (private) residence as the place of occurrence of the external cause

== ENCOUNTER 2019-02-02 03:18 | Inpatient (IN) | payer MEDICARE ==
[~2019-02-02] VITALS: Ht 157.5 cm; Wt 65.2 kg
[~2019-02-02 03:18] MED LIST changes: +COZA50TA PO; +LEVO125T4 PO; +NYSTOI TOP; +SILV50CR TOP
[2019-02-02] MEDS ORDERED: NS 500 ML IV ONE (04:00)
[2019-02-02] MEDS ORDERED: ACETAMINOPHEN 325 MG TAB PO ONE (04:00)
[2019-02-02] MEDS ORDERED: PIPERACILLIN/TAZOBACTAM SOD 3.375 GM in D5W MINI-BAG PLUS 50 ML IV ONE (04:15)
[2019-02-02] MEDS ORDERED: ROPI2TAB PO (04:21)
[2019-02-02] MEDS ORDERED: BACITAB PO (04:21)
[2019-02-02] MEDS ORDERED: INSUDET SC (04:21)
[2019-02-02] MEDS ORDERED: VELT1POW PO (04:21)
[2019-02-02] MEDS ORDERED: METO1TAB7 PO (04:21)
[2019-02-02] MEDS ORDERED: LOSA50TA88 PO (04:21)
[2019-02-02] MEDS ORDERED: SYNT125T PO (04:21)
[2019-02-02] MEDS ORDERED: ALPR0.25 PO (04:24)
[2019-02-02] MEDS ORDERED: DULO1CAP2 PO (04:24)
[2019-02-02] MEDS ORDERED: PERC5TAB12 PO (04:24)
[2019-02-02 04:59] LABS: BILIRUBIN,DIRECT 0.2 MG/DL (0.0-0.2); BILIRUBIN,TOTAL 0.5 MG/DL (0.2-1.0); CALCIUM LEVEL 6.4 MG/DL (8.8-10.2); CREATININE FOR GFR 6.26 MG/DL (0.55-1.30); POTASSIUM SERUM 4.7 MEQ/L (3.5-5.1); TOTAL PROTEIN 5.4 GM/DL (6.4-8.2)
[2019-02-02 05:16] LABS: INFLUENZA A AMPLIFICATION NEGATIVE (NEGATIVE); INFLUENZA B AMPLIFICATION NEGATIVE (NEGATIVE)
[2019-02-02 05:17] LABS: BASO % 0.1 % (0.0-1.0); HEMATOCRIT 30.8 % (36.0-47.0); HEMOGLOBIN 9.5 g/dl (12.0-15.5); LYMPH # 0.5 10^3/uL (1.5-4.5); LYMPH % 2.3 % (24.0-44.0); MEAN CORPUSCULAR HEMOGLOBIN 29.4 pg (27.0-33.0); MEAN CORPUSCULAR HGB CONC 30.8 g/dl (32.0-36.5); MEAN CORPUSCULAR VOLUME 95.4 fl (80.0-96.0); MONO # 0.8 10^3/uL (0.0-0.8); NEUTROPHILS # 19.4 10^3/uL (1.8-7.7); NEUTROPHILS % 92.4 % (36.0-66.0); PLATELET COUNT, AUTOMATED 124 10^3/uL (150-450); RED BLOOD COUNT 3.23 10^6/uL (4.00-5.40)
[2019-02-02] MEDS ORDERED: NYSTATIN OINTMENT 15 GM TOP PRN (06:00)
[2019-02-02] MEDS ORDERED: LIDOCAINE 5% (LIDODERM) PATCH TD ONE (06:00)
[2019-02-02] MEDS ORDERED: PATIROMER SORBITEX CALCIUM 8.4 GM POWDER PACKET (VELTASSA) PO PRN (06:00)
[2019-02-02] MEDS ORDERED: NS 1,000 ML IV SCH (06:15)
--- NOTE | 2019-02-02 06:54 | HPEPDOC ---
[facility] Medical History & Physical Date of Admission Feb 02, 2019 Primary Care Physician: Catracho Pineda MD Attending Physician: ROBIN MONTANEZ MD History and Physical CHIEF COMPLAINT: Confusion HISTORY OF PRESENT ILLNESS: Patient is a 68 year old female with a past medical history significant for CHF, ESRD on hemodialysis, DMII with peripheral neuropathy and charcot foot on the left, cirrhosis with ascites, hx of metabolic encephalopathy, and hx of Staph bacteremia who presented to the [facility] ER with confusion. Patient was in altered mental status during exam and majority of HPI was obtained from the patients daughter. The patients daughter states that on Tuesday this week the patient had an episode of nausea, vomiting, and diarrhea. She regularly receives dialysis MWF however, had to skip her dialysis on Tue due to not feeling well. Patients daughter states that the patient developed left arm and hand pain which has persisted today. The patients daughter states that around 0 she went to check on her mother and felt her to be confused and not acting herself. EMS was subsequently called and the patient was brought to the emergency department. The patients daughter states that she checked her mothers pill box and had noticed that her mother has not taken any of her medications for the past week. The daughter had noted that the patient see Dr. Gutierres for her charcot foot which recently developed an ulcer. She also notes that her father, the patients , had recently this week. In the ER the patient received a chest x-ray and a arm and hand x-ray which were all negative for any acute findings. The patient was found to be febrile with a white count of 21. She received a dose of Zosyn and IV fluids. Hospitalist service was consulted and the patient was admitted PAST MEDICAL HISTORY: 1. CHF 2. ESRD on Hemodialysis MWF 3. DMII 4. Charcot Foot 5. Chirrosis 6. Hx of metabolic encepholapthy 7. Ascites 8. Secondary hyperparathyroidism 9. JUAN 10. Restless leg syndrome 11. Depression PAST SURGICAL HISTORY: 1. PCI with 4 coronary stents placed 2. Left arm AV fistula 3. Appendectomy 4. Hysterectomy 5 Bilateral cataract removal 6. Left toe amputation secondary to osteomyelitis 7. Right 2nd toe amputation SOCIAL HISTORY: Patient is a nonsmoker. She does not drink alcohol or use illicit drugs FAMILY HISTORY: Noncontributory ALLERGIES: Please see below. REVIEW OF SYSTEMS: Patient presents with altered mental status. A review of systems is unobtainable HOME MEDICATIONS: Please see below. PHYSICAL EXAMINATION: VITAL SIGNS: Temperature 102.1, pulse 78, respiratory rate 22, blood pressure 124/59, pulse oximetry 90% on room air. GENERAL APPEARANCE: Patient is awake. She is responsive to painful stimuli. She is non-conversive. She appears confused. HEENT: Atraumatic normocephalic. Eyes are non-icteric. Trachea is midline CARDIOVASCULAR: Soft 1-2/6 systolic murmur. Regular rate and rhythm. LUNGS: Clear to auscultation bilaterally. No wheezes, rhonci, or rales ABDOMEN: Soft, Distended. Positive fluid wave present. Nontender to palpation. No rebound tenderness or guarding. MUSCULOSKELETAL: Pain on palpation of right arm and hand. Unable to assess range of motion as patient is noncooperative EXTREMITIES: Dusky brown discoloration. Slight erythema in lower extremities bilaterally. Left sided charcot foot with area of ulceration concerning for osteomyelitis. Multiple toe amputations on left. Toe amputation on right NEUROLOGICAL: Patient appears confused. Pupils are reactive to light. Patient is responsive to painful stimuli LABORATORY DATA: See below. MICROBIOLOGY: Please see below. ASSESSMENT and PLAN 1. Altered Mental Status 2/2 Sepsis 2/2 Left foot ulcer -Patient presented with a fever, elevated, white blood cell count and confusion. She has a history of Staph bacteremia and osteomyelitis. Patients source of infection is likely from her left foot ulcer -Patient to receive IV zosyn and Zyvoxx -Podiatry consult for Dr. Gutierres in AM 2. Cirrhosis with Ascites -Patient has a history of cirrhosis. She has ascites and has previously received paracentesis. Patients altered mental status could be secondary to metabolic encephalopathy -Ammonia level pending -Patient on IV zosyn and Zyvoxx. -U/S guided paracentesis to R/O SBP 3. ESRD on Hemodialysis -Patient has ESRD. She receives HD on MWF. She is due for dialysis today. She skipped her dialysis on Tuesday due to feeling ill -Dr. Grullon Nephrology consult in AM for dialysis management -Valtessa as needed for hyperkalemia 4. Hypothyroidism -Continue home levothyroxine 5. DMII -Continue home levemir -Sliding scale AC coverage 6. Hypertension -Continue home medications Vital Signs Vital Signs Date Time Temp Pulse Resp B/P (MAP) Pulse Ox O2 Delivery O2 Flow Rate FiO2 02/02/19 05:03 71 22 97 Nasal Cannula 2.0 02/02/19 05:00 99/51 (67) 02/02/19 03:24 102.1 Laboratory Data Labs 24H Laboratory Tests 2 02/02/19 04:24: Immature Granulocyte % (Auto) 1.2, White Blood Count 21.0H, Red Blood Count 3.23L, Hemoglobin 9.5L, Hematocrit 30.8L, Mean Corpuscular Volume 95.4, Mean Corpuscular Hemoglobin 29.4, Mean Corpuscular Hemoglobin Concent 30.8L, Red Cell Distribution Width 18.1H, Platelet Count 124L, Neutrophils (%) (Auto) 92.4H, Lymphocytes (%) (Auto) 2.3L, Monocytes (%) (Auto) 4.0, Eosinophils (%) (Auto) 0.0, Basophils (%) (Auto) 0.1, Neutrophils # (Auto) 19.4H, Lymphocytes # (Auto) 0.5L, Monocytes # (Auto) 0.8, Eosinophils # (Auto) 0.0, Basophils # (Auto) 0.0, Nucleated Red Blood Cells % (auto) 0.2H, Lactic Acid Level 1.5, Influenza Type A (RT-PCR) NEGATIVE, Influenza Type B (RT-PCR) NEGATIVE 02/02/19 04:25: Anion Gap 11, Glomerular Filtration Rate 7.0L, Calcium Level 6.4L, Aspartate Amino Transf (AST/SGOT) 24, Alanine Aminotransferase (ALT/SGPT) 23, Alkaline Phosphatase 265H, Total Bilirubin 0.5, Direct Bilirubin 0.2, Total Protein 5.4L, Albumin 2.0L, Albumin/Globulin Ratio 0.59L 02/02/19 04:27: CBC/BMP Laboratory Tests 02/02/19 04:24 Red Blood Count 3.23 L, Mean Corpuscular Volume 95.4, Mean Corpuscular Hemoglobin 29.4, Mean Corpuscular Hemoglobin Concent 30.8 L, Red Cell Distribution Width 18.1 H, Neutrophils (%) (Auto) 92.4 H, Lymphocytes (%) (Auto) 2.3 L, Monocytes (%) (Auto) 4.0, Eosinophils (%) (Auto) 0.0, Basophils (%) (Auto) 0.1, Neutrophils # (Auto) 19.4 H, Lymphocytes # (Auto) 0.5 L, Monocytes # (Auto) 0.8, Eosinophils # (Auto) 0.0, Basophils # (Auto) 0.0 02/02/19 04:25 Microbiology Microbiology 02/02/19 Blood Culture, Received Pending Home Medications Scheduled Calcium Acetate (Calcium Acetate) 667 Mg Tab, 667 MG PO WM Calcium Carbonate (Tums) 500 Mg Chw, 500 MG PO WM Clopidogrel Bisulfate (Plavix) 75 Mg Tab, 75 MG PO DAILY Duloxetine Hcl (Duloxetine HCl) 30 Mg Cap, 30 MG PO DAILY Gabapentin (Gabapentin) 100 Mg Cap, 300 MG PO BID Hydralazine HCl (Hydralazine HCl) 25 Mg Tab, 25 MG PO TID Insulin Detemir (Levemir) 1 Units/0.01 Ml Susp, 20 UNITS SC DAILY Insulin Human Lispro (Humalog) 100 Unit/Ml Inj, 1 DOSE SC AC PER SLIDING SCALE Lactobacillus Acidophilus (Bacid) 1 Tab Tab, 1 TAB PO BID Levothyroxine Sodium (Synthroid) 125 Mcg Tab, 125 MCG PO DAILY Losartan Potassium (Losartan Potassium) 50 Mg Tab, 50 MG PO DAILY Metoprolol Succinate (Metoprolol Succinate ER) 50 Mg Tab, 50 MG PO BID Pantoprazole Sodium (Pantoprazole Sodium) 40 Mg Tab, 40 MG PO DAILY Ropinirole Hydrochloride (Ropinirole HCl) 2 Mg Tab, 4 MG PO BID Silver Sulfadiazine (Ssd) 1 % Cre, 1 DOSE TOP DAILY WITH DRESSING CHANGES ON FOOT Simvastatin (Simvastatin) 20 Mg Tab, 20 MG PO QHS Trazodone HCl (Trazodone HCl) 100 Mg Tab, 100 MG PO QHS Scheduled PRN (Lidocaine) 5 % Pad, 1 PATCH TOP DAILY PRN for PAIN APPLY TO BACK Alprazolam (Alprazolam) 0.25 Mg Tab, 0.25 MG PO BID PRN for ANXIETY Nystatin (Nystatin Oint) 30 Gm Oint, 1 DOSE TOP BID PRN for REDNESS/IRRITATION APPLY TO ABDOMINAL FOLDS Oxycodone/Acetaminophen (Percocet 5-325 mg) 1 Tab Tab, 1 TAB PO DAILY PRN for PAIN Patiromer Sorbitex Calcium (Veltassa) 8.4 Gm Pow, 8.4 GM PO ASDIRECTED PRN for MISSING DIALYSIS Allergies Coded Allergies: Pregabalin (Verified Adverse Reaction, Intermediate, CONFUSION, 03/16/17) Vancomycin (Verified Adverse Reaction, Intermediate, itching, 09/08/17) pt iv ? infitrate, co of puritis and benadryl ordered for localized topical itching and redness, cool compress no other adverse reactions noted GME ATTESTATION GME ATTESTATION My faculty preceptor for this patient encounter was physically present during the encounter and was fully available. All aspects of the patient interview, examination, medical decision making process, and medical care plan development were reviewed and approved by the faculty preceptor. The faculty preceptor is aw are and concurs with the plan as stated in the body of this note and will attest to such by his/her cosignature. SANDY ELAM DO Feb 02, 2019 06:54
[2019-02-02] MEDS: LINEZOLID 600 MG in APPROPRIATE DILUENT 1 EA IV SCH ×2 (07:37→19:08)
--- NOTE | 2019-02-02 08:23 | REP ---
Portable chest x-ray: Single view. History: Fever. Comparison study: January 09, 2019. Findings: EKG monitoring electrodes overlie the chest. Heart is mildly enlarged. Pulmonary vasculature is slightly cephalized. Pleural angles are sharp. No focal infiltrate is seen. There is plate-like atelectasis in the left base unchanged. Impression: Plate-like atelectasis left base. Electronically Signed by Vel Martinez MD 02/02/2019 08:14 A
--- NOTE | 2019-02-02 08:33 | REP ---
RIGHT FOREARM, TWO VIEWS: AP and lateral views of right forearm are performed. Radius and ulna are intact with no fracture or dislocation. No intrinsic osseous pathology is seen. IMPRESSION: No acute fracture or dislocation. Electronically Signed by Aureliano Rivas MD 02/05/2019 10:52 A
--- NOTE | 2019-02-02 08:51 | REP ---
RIGHT HAND, TWO VIEWS: AP and lateral views of the right hand are performed. There is no acute fracture. There is chronic subluxation of the 1st metacarpal laterally due to adjacent advanced arthritis change with joint space narrowing, subchondral sclerosis and cystic change. Moderate joint space narrowing with subchondral sclerosis seen at the 2nd metacarpophalangeal joint. There is mild diffuse narrowing of the distal interphalangeal joints. IMPRESSION: Arthritic changes without acute fracture or dislocation. Electronically Signed by Aureliano Rivas MD 02/05/2019 10:52 A
[2019-02-02] MEDS ORDERED: LOSARTAN 50 MG TAB PO SCH (09:00)
[2019-02-02] MEDS ORDERED: rOPINIRole 2MG TAB PO SCH (09:00)
[2019-02-02] MEDS ORDERED: CLOPIDOGREL 75 MG TAB PO SCH (09:00)
[2019-02-02] MEDS: METOPROLOL SUCC (TopROL XL) 50MG **XL** TAB PO SCH ×2 (09:15→21:30)
[2019-02-02] MEDS: LEVEMIR (INSULIN DETEMIR) 1 UNITS/0.01ML SC SCH (09:26)
[2019-02-02] MEDS: PANTOPRAZOLE 40MG TAB (PROTONIX) PO SCH (09:26)
[2019-02-02] MEDS: **hydrALAZINE HCL** 25 MG TAB PO SCH ×3 (09:27→21:00)
[2019-02-02] MEDS: CALCIUM CARBONATE 500 MG CHEW U/D PO SCH ×3 (09:27→19:06)
--- NOTE | 2019-02-02 10:15 | REP ---
Left foot series: Four views. History: Evaluate for osteomyelitis. Infection. Ulcer. Comparison left foot radiographs are from August 30, 2018. Findings: There is advanced midfoot neuropathic arthropathy with partial collapse of the tarsal arch, fragmentation and sclerosis with medial navicular dislocation. The arthropathy in the midfoot is unchanged radiographically. There is plantar soft tissue swelling and irregularity. This may reflect the ulcer. There is some soft tissue swelling about the forefoot. No soft tissue gas is seen. The second toe has been amputated at the PIP joint level. The third toe has been amputated at the level of the distal portion of the proximal phalanx. No acute bony erosive changes are seen. There is diffuse osteopenia. Impression: Severe midfoot neuropathic arthropathy. Some plantar soft tissue swelling and irregularity seen. No soft tissue gas. No acute bony erosive change seen to suggest osteomyelitis. Electronically Signed by Vel Martinez MD 02/02/2019 10:38 A
[2019-02-02] MEDS: PERCOCET 5MG/325MG TAB PO PRN (11:19)
[2019-02-02] MEDS: PIPERACILLIN/TAZOBACTAM SOD 2.25 GM in D5W MINI-BAG PLUS 50 ML IV SCH ×2 (12:15→21:31)
--- NOTE | 2019-02-02 12:49 | REP ---
CT LEFT FOOT WITHOUT CONTRAST: HISTORY: Charcot's foot. Ulcer. Comparison is made with today's radiographs.. There is a comparison left foot CT study September 01, 2018. TECHNIQUE: Helical scanning is acquired. 2 mm axial images are generated. Coronal and sagittal MPR images are generated. CT FINDINGS: There is advanced neuropathic arthropathy involving the midfoot articulations. There is collapse of the tarsal arch. The distal talus is deviated volar. There is medial and superior dislocation of the tarsal navicula. There are multiple fracture fragments involving the midfoot articulations. This is essentially unchanged on CT imaging from the comparison CT study of September 01, 2018. No new area of bone destruction is seen. Plantar calcaneal spurring is noted. There is some posterior abutment at the tibiotalar articulation with sclerosis. This is a little more pronounced than on the prior study and there are some associated subcortical cyst forming here. There is plantar soft tissue swelling and a fairly large ulcer site is visible in the plantar skin with overlying dressing at the midfoot level. No soft tissue gas is seen deep to this. No abscess is appreciated. IMPRESSION: Advanced neuropathic foot arthropathy. A superficial ulcer at the volar skin at the midfoot. Electronically Signed by Vel Martinez MD 02/02/2019 12:57 P
[2019-02-02] MEDS ORDERED: MORPHINE 2 MG/ML 1ML SYRINGE (J2270) As Ordered ONE (12:52)
[2019-02-02] MEDS: MORPHINE 4 MG/ML 1ML VIAL/SYRINGE (J2270) IV PRN ×2 (12:56→21:31)
[2019-02-02 13:15] VITALS: BP 130/61
[2019-02-02 13:19] VITALS: BP 130/61
--- NOTE | 2019-02-02 14:01 | IPNPDOC ---
Text Note Date of Service The patient was seen on 02/02/19. NOTE Subjective: Patient is a 68-year-old female who presented to the emergency room last night with complaints of increased confusion. Patient has diabetes as well as end-stage renal disease. Patient is believed to have a Charcot foot with an ulcer on the bottom of it. Patient was recently seen by Dr. Baeza of podiatry who did not believe the foot to be infected at that time. Patient continued to get worse throughout the last week. Patient's daughter said that the patient was unable to get her scheduled dialysis on 01/29/2019, because the patient was having diarrhea and vomiting. She was able to get her scheduled dialysis on 01/31/2019. Patient apparently has been having episodes of hypotension after dialysis. Patient has been lethargic and confused. Patient had a fever upon arriving to the emergency room. Patient also has a history of cirrhosis and did have a paracentesis and removed 3 L of ascitic fluid a few weeks ago. She is scheduled for another paracentesis next week. Patient complains of some mild abdominal pain with palpation. Review of systems General: Patient denies fevers HEENT: Patient denies headaches Cardiovascular: Patient denies chest pain Respiratory: Patient denies shortness of breath, cough GI: Mild abdominal pain. Had nausea vomiting and diarrhea however, since resolved : Patient denies pain or difficulty with urination Neurological: Patient denies numbness or tingling in extremities Extremities: Moderate to severe pain around the ulcer on the left foot. Objective: Vitals: (see below) General: Alert and oriented 3. Patient is lethargic and laying on her side. Patient would wake up and respond to questions however, she was quite sleepy. HEENT: Normocephalic, atraumatic, moist mucous membranes. Neck: No JVD or lymphadenopathy Cardiac: RRR, No murmurs Pulm: Clear to auscultation b/l. No wheezing, rhonchi Abd: Distended abdomen that was dull to percussion. Fluid wave positive. Mild tenderness to palpation. No rebound/guarded/rigidity. Ext: Superficial ulcer on the plantar surface of the left foot with erythema spreading up the soft tissues of the leg to the level of the mid baig. This erythema is non-circumferential. The leg and foot are warm to the touch and tender to the touch. There is small areas of erythema on the right leg. Distal pulses intact. Labs (see below) Images: A CT of the left foot without contrast performed on 02/02/2018 showed advanced neuropathic foot atrophy and a superficial ulcer at the volar skin of the mid foot. A foot x-ray of the left foot performed on 02/02/2019 showed severe midfoot neuropathic atrophy. Some plantar soft tissue swelling and irregularity seen. No soft tissue gas. No acute bony erosive changes seen to suggest osteomyelitis. A hand x-ray of the right hand performed on 02/02/2018 showed arthritic changes without acute fracture or dislocation. A single view chest x-ray performed on February 02 showed platelike atelectasis at the left base. A x-ray of the radius and ulna of the right arm performed on 02/02/2019 showed no acute fracture or dislocation. Assessment/Plan 1. Altered mental status secondary to sepsis secondary to left foot ulcer. Patient had a fever of 102.1 upon admission in the emergency room. Patient was also confused and had a leukocytosis of 21.0. A podiatry consult for Dr. Baeza has been placed. Patient is on IV Zosyn and Zyvox. Patient's IV Zosyn has been dosed for dialysis. As the patient has received more fluid hydration, the patient has become more alert. 2. Cirrhosis with ascites. Patient will be scheduled for a paracentesis next week. Patient has been on Plavix which is being held. Patient did have coronary artery stents placed in January 2017 and has been on Plavix ever since. 3. End-stage renal disease on dialysis. Dr. Grullon of nephrology has been consulted for management of dialysis. 4. Hypothyroidism. We will continue the patient's home medication. 5. Type 2 diabetes. We will continue the patient's home Levemir and add sliding scale coverage. 6. Hypertension. We will continue home medications. DVT prophy: Heparin 5000 units every 8 hours Dispo: Pending clinical improvement Overall prognosis guarded. VS,Fishbone, I+O VS, Fishbone, I+O Laboratory Tests 02/02/19 04:24 Red Blood Count 3.23 L, Mean Corpuscular Volume 95.4, Mean Corpuscular H emoglobin 29.4, Mean Corpuscular Hemoglobin Concent 30.8 L, Red Cell Distribution Width 18.1 H, Neutrophils (%) (Auto) 92.4 H, Lymphocytes (%) (Auto) 2.3 L, Monocytes (%) (Auto) 4.0, Eosinophils (%) (Auto) 0.0, Basophils (%) (Auto) 0.1, Neutrophils # (Auto) 19.4 H, Lymphocytes # (Auto) 0.5 L, Monocytes # (Auto) 0.8, Eosinophils # (Auto) 0.0, Basophils # (Auto) 0.0 02/02/19 04:25 Vital Signs Date Time Temp Pulse Resp B/P (MAP) Pulse Ox O2 Delivery O2 Flow Rate FiO2 02/02/19 13:19 97.8 58 24 130/61 (84) 98 2.0 02/02/19 12:48 Nasal Cannula GME ATTESTATION GME ATTESTATION My faculty preceptor for this patient encounter was physically present during the encounter and was fully available. All aspects of the patient interview, examination, medical decision making process, and medical care plan development were reviewed and approved by the faculty preceptor. The faculty preceptor is aware and concurs with the plan as stated in the body of this note and will attest to such by his/her cosignature. TOY MANN DO Feb 02, 2019 14:01 ROBIN MONTANEZ MD Feb 11, 2019 13:33
[2019-02-02] MEDS ORDERED: HEPARIN 1,000 UNITS/ML 10ML VIAL (FOR RADIOLOGY& DIALYSIS ONLY) IV ONE (17:00)
[2019-02-02] MEDS ORDERED: LIDOCAINE 1% SDV 5 ML VIAL SQ ONE (17:00)
[2019-02-02] MEDS: HEPARIN SOD (PORCINE) 5000 UNITS/ML VIAL SQ SCH ×2 (19:08→22:00)
[2019-02-02] MEDS: **NOTE PATIENT COMMENT** MISC XX SCH (19:09)
[2019-02-02 20:00] VITALS: BP 128/60
[2019-02-02] MEDS: SIMVASTATIN 20 MG TAB PO SCH (21:30)
[2019-02-02] MEDS: rOPINIRole 2MG TAB PO SCH (21:34)
--- NOTE | 2019-02-02 22:07 | IPN ---
DATE: 02/02/2019 CHIEF COMPLAINT: 68-year-old female seen with her daughter for evaluation of her left foot. The patient's daughter states that her mom was confused and she sent her to the hospital and she states she that since she has been with her she has maintained an attitude of confusion and the patient complains when talked to about not sleeping. PAST MEDICAL HISTORY: 1. Congestive heart failure. 2. End-stage renal disease. 3. Type 2 diabetes. 4. Charcot joint disease 5. Cirrhosis of the liver 6. Secondary hyperparathyroidism. 7. Restless leg syndrome. 8. Depression. PAST SURGICAL HISTORY: Coronary artery disease with stent, left arm arteriovenous (AV) fistula, appendectomy, hysterectomy, toe amputation secondary to osteomyelitis, bilateral cataract surgery, right second toe amputation. PHYSICAL EXAMINATION: The patient has a bandage on her left foot. The bandage was removed revealing an ulceration with good granulation tissue in the plantar surface of the foot. This also measures 5 cm from distal and proximal, 4 cm medial lateral with good granulation tissue and no discharge. X-rays were reviewed. They were negative for osteomyelitis. The patient does have a Charcot joint disease for her left extremity. The patient does have a red warm lower leg, probable cellulitis. Her pedal pulses are not palpable. ASSESSMENT: Stage III ulceration of the left foot with Charcot joint disease. Cellulitis, left lower leg, diabetes with neuropathy. PLAN: Dry sterile dressing was applied to the base of the left foot. Her infection is not coming from her left foot ulcer. Continue with local wound care on her left foot. Change her dressing once a day. Apply Vashe to the wound, left stand for 15 minutes, followed by Silvadene and a dressing. The patient can ambulate with weight on her heel. Her questions were answered.
[2019-02-02 23:59] VITALS: BP 121/60
[2019-02-03] MEDS: MORPHINE 4 MG/ML 1ML VIAL/SYRINGE (J2270) IV PRN ×6 (00:30→15:58)
[2019-02-03] MEDS: PIPERACILLIN/TAZOBACTAM SOD 2.25 GM in D5W MINI-BAG PLUS 50 ML IV SCH ×2 (03:57→11:41)
[2019-02-03] MEDS: PERCOCET 5MG/325MG TAB PO PRN (03:58)
[2019-02-03 04:00] VITALS: BP 128/59
[2019-02-03 05:10] LABS: BASO % 0.2 % (0.0-1.0); EOS # 0.2 10^3/uL (0.0-0.50); HEMATOCRIT 32.4 % (36.0-47.0); HEMOGLOBIN 9.7 g/dl (12.0-15.5); LYMPH # 0.8 10^3/uL (1.5-4.5); MEAN CORPUSCULAR HEMOGLOBIN 29.4 pg (27.0-33.0); MEAN CORPUSCULAR HGB CONC 29.9 g/dl (32.0-36.5); MEAN CORPUSCULAR VOLUME 98.2 fl (80.0-96.0); MONO # 0.8 10^3/uL (0.0-0.8); MONO % 9.7 % (0.0-5.0); NEUTROPHILS # 6.6 10^3/uL (1.8-7.7); NEUTROPHILS % 78.5 % (36.0-66.0); WHITE BLOOD COUNT 8.4 10^3/uL (4.0-10.0)
[2019-02-03 05:22] LABS: PLATELET COUNT, AUTOMATED 98 10^3/uL (150-450)
[2019-02-03 05:42] LABS: CALCIUM LEVEL 6.8 MG/DL (8.8-10.2); CREATININE FOR GFR 4.33 MG/DL (0.55-1.30); GLOMERULAR FILTRATION RATE 10.8 (>39); POTASSIUM SERUM 3.8 MEQ/L (3.5-5.1)
[2019-02-03] MEDS: LINEZOLID 600 MG in APPROPRIATE DILUENT 1 EA IV SCH (06:26)
[2019-02-03] MEDS: LEVOTHYROXINE 125MCG TABLET (0.125MG) PO SCH (06:27)
[2019-02-03] MEDS: HEPARIN SOD (PORCINE) 5000 UNITS/ML VIAL SQ SCH ×4 (06:27→21:50)
[2019-02-03 08:00] VITALS: BP 132/61
[2019-02-03] MEDS: CALCIUM CARBONATE 500 MG CHEW U/D PO SCH ×3 (08:59→17:31)
[2019-02-03] MEDS: METOPROLOL SUCC (TopROL XL) 50MG **XL** TAB PO SCH ×2 (09:01→21:00)
[2019-02-03] MEDS: **hydrALAZINE HCL** 25 MG TAB PO SCH ×3 (09:01→21:00)
[2019-02-03] MEDS: PANTOPRAZOLE 40MG TAB (PROTONIX) PO SCH (09:01)
[2019-02-03] MEDS: LEVEMIR (INSULIN DETEMIR) 1 UNITS/0.01ML SC SCH (09:02)
--- NOTE | 2019-02-03 10:21 | CR ---
DATE OF CONSULTATION: 02/02/2019 REQUESTING PHYSICIAN: Dr. Saulo Hunter. REASON FOR CONSULTATION: Management of endstage renal disease on hemodialysis. HISTORY OF PRESENT ILLNESS: Dalila Hernandez is a 68-year-old female well known to me with past medical history of endstage renal disease on hemodialysis on a Tuesday, Tuesday, Tuesday schedule, history of hypertension, diastolic congestive heart failure, Charcot foot, hypothyroidism, chronic noncompliance with dialysis and fluid restriction, diabetic neuropathy, coronary artery disease and other comorbid conditions mentioned below. She presented to the emergency room after family noted her to be confused and altered at home. Apparently she missed her last hemodialysis session on Tuesday. Her recently in the intensive care unit (ICU) about 10 days ago. Patient complains of significant pain in her left Charcot foot and she also complains of abdominal distention and ascites. PAST MEDICAL HISTORY: As mentioned above and includes: Endstage renal disease on dialysis. Chronic noncompliance with dialysis and fluid restriction. Diabetes. Diabetic neuropathy. Coronary artery disease. Hypertension. Hypothyroidism. Diastolic congestive heart failure. Anemia of chronic renal failure. Secondary hyperparathyroidism. Obstructive sleep apnea. Restless leg syndrome. Use of multiple pain medications. Depression. PAST SURGICAL HISTORY: Coronary stents. Left arm AV fistula. Appendectomy. Hysterectomy. Bilateral cataracts. Paracentesis. Left toe amputation. Right second toe amputation. ALLERGIES: VANCOMYCIN, PREGABALIN. FAMILY HISTORY: No significant family history of endstage renal disease requiring dialysis. SOCIAL HISTORY: She is a . There is no reported drug use, tobacco use or alcohol use. She is opioid dependent. REVIEW OF SYSTEMS: Somewhat limited but: Constitutional: She reports fatigued and fevers and weakness. Eyes: She denies visual changes or tearing. ENT: Denies dysphagia or odynophagia. Cardiovascular: She reports leg edema and congestive heart failure. She denies chest pain. Respiratory: She denies shortness of breath at rest. Denies cough. Gastrointestinal: Denies nausea, vomiting. Has history of ascites. Genitourinary: Denies dysuria or hematuria. Musculoskeletal: She reports severe pain in the left foot. She reports Charcot foot. She reports history of falls. Hematologic: Denies easy bleeding or bruising. Endocrine: Reports history of diabetic and secondary hyperparathyroidism. Neurologic: Denies seizure or syncope. Family reports episodes of confusion over the past day. HOME MEDICATIONS: Reviewed and include: - Xanax - PhosLo - Tums - Plavix - gabapentin - hydralazine - insulin - Bacid - levothyroxine - Losartan - metoprolol - Nystatin - oxycodone - Protonix - Veltassa - Requip - simvastatin - trazodone VITAL SIGNS: Temperature: T-max 102.1, T-current 98.1, pulse 78, respiratory rate 24, blood pressure 130/61, saturating 98% on 2 liters nasal cannula. Intake was not fully recorded. Dialysis today removed 2000 mL. General: Patient is seen in the hemodialysis unit receiving her maintenance treatment. At the time of my visit, she is awake, alert and oriented to person, place and situation. Extraocular muscles are intact. Tongue is moist. Jugular veins are elevated. Cardiac: Regular rate and rhythm. Pitting edema present in the peripheries. Lungs: Clear to auscultation bilaterally. No crackle, rale or wheeze. Abdomen is distended. There is a fluid wave. There is ascites. The right upper extremity fistula is presently in use. The lower extremities show edema and there is dressing on the left foot. The peripheral pulses are diminished. LABS: White count 21. Hemoglobin 9.5, platelets 124. Sodium 139, potassium 4.7, bicarbonate 25. Ammonia 46. Blood culture times one set growing gram positive cocci in chains. IMAGING: CT of the foot without contrast: Advanced neuropathic foot arthropathy with superficial ulcer at midfoot. INPATIENT MEDICATIONS: - Zyvox 600 mg IV every 12 hours - Zosyn 2.25 grams IV every 8 hours - Tylenol - Tums 500 mg by mouth with meals - Plavix 75 mg by mouth daily which is held - heparin 5000 units subcutaneous every 8 hours - hydralazine 25 mg by mouth three times daily - insulin - levothyroxine 125 mcg by mouth daily - metoprolol 50 mg by mouth twice daily - Protonix 40 mg by mouth daily - oxycodone one tablet by mouth as needed - ropinirole 2 mg by mouth daily at bedtime - simvastatin 20 mg by mouth daily at bedtime PROBLEMS: 1. Endstage renal disease on hemodialysis on a Tuesday, Tuesday, Tuesday maintenance schedule. Patient is chronically noncompliant with dialysis and fluid restriction. She is chronically volume overloaded. I am discontinuing the IV fluids that she was receiving. In view of her sepsis, we decreased her goal ultrafiltration on dialysis today with 2 liters of fluid removed which she tolerated well. Her electrolytes are acceptable and her fistula is in good use. 2. Sepsis with positive blood culture possibly related to her chronic left foot ulcer. Leukocytosis and fever noted. In view of sepsis, I have put generous holding parameters with her hydralazine and metoprolol. I have also discontinued her Losartan for now. She is receiving empiric antimicrobials, Zosyn and Zyvox per the primary team. She will be evaluated by podiatry service. 3. Diastolic congestive heart failure chronically volume overloaded with ascites as well. Hold off on further IV fluids at present. Normal saline is being discontinued. Holding parameters with blood pressure medications and decrease ultrafiltration goal with dialysis. 4. Cirrhosis with ascites. Patient is pending paracentesis next week. 5. Altered mental status. Patient was somewhat slow to respond but was overall mentating fairly appropriately at the time of my visit. While she was on dialysis, she was oriented to person, place and situation. Her intermittent and prior confusion is likely related to the sepsis and infection but I also do note that she has an elevated ammonia level. Thank you for involving me in the care of Ms. Hernandez. I will be happy to follow her along with you.
[2019-02-03] MEDS: oxyCODONE 5MG TAB PO PRN (11:40)
[2019-02-03 12:00] VITALS: BP 119/57
[2019-02-03] MEDS ORDERED: VANCOMYCIN HCL 1,000 MG, VIAL MATE ADAPTER 1 EACH in D5W 250 ML IV ONE (13:00)
--- NOTE | 2019-02-03 13:12 | REP ---
Left ribs for views: There is no rib fracture or other rib abnormality. PA chest: Comparison is 02/02/2019. There is cardiomegaly, unchanged. The There is diffuse bilateral mild interstitial coarsening that appears increased from the prior study, compatible with vascular congestion and interstitial infiltrates. There are no pleural effusions. Impression: Findings are compatible with interval development of mild diffuse interstitial infiltrates. No pleural effusions or focal infiltrates. There is cardiomegaly, unchanged Electronically Signed by Aureliano Banks MD 02/03/2019 01:03 P
[2019-02-03] MEDS ORDERED: VANCOMYCIN HCL 500 MG in D5W MINI-BAG PLUS 100 ML IV ONE (14:00)
--- NOTE | 2019-02-03 14:59 | PHACANCOPD ---
PHARMACY VANCOMYCIN DOSING Pt Demographics Demographics Patient Age:68 , Weight:75.800 , Gender: female Adjusted Body Weight Date: 02/03/19, Adjusted Body Weight: Kg Events Past 24 Hours Events Past 24 Hours: YES: Fever, Elevation in WBC, Pending Diagnostics Vancomycin Vancomycin indication: SEPSIS H/O MRSA Vancomycin Target Ranges: 15-20 mcg/ml Vancomycin Load Y/N: Yes Load Dose Date Time Vancomycin Load Dose: 1500MG Date: 02/03/19 Time:1300 Vancomycin Dose Date: 02/03/19. Current Vancomycin Dose: [750MG IV HD] Intermittent Dosing?: Yes Labs Labs Item Value Date Time White Blood Count 21.0 10^3/uL H 02/02/19 042 White Blood Count 8.4 10^3/uL 02/03/19 0451 Creatinine 6.26 MG/DL H 02/02/19 042 Creatinine 4.33 MG/DL H 02/03/19 0451 Blood Urea Nitrogen 39 MG/DL H 02/02/19 0425 Blood Urea Nitrogen 26 MG/DL H 02/03/19 0451 Lactic Acid Level 1.5 MMOL/L 02/02/19 0424 Micro Microbiology 02/03/19 Blood Culture, Received Pending 02/02/19 Blood Culture - Preliminary, Resulted Creatinine Clearance Date:02/03/19. Est Creatinine Clearance: [~10ml/min]. Pending Labs Random vancomycin level scheduled 02/05/19 with morning labs, prior to HD session Assessment and Plan Maintaining Current Dose?: Yes Reason for dose change: No Dose Change Pharmacist Note Pharmacist Note Date: 02/03/19. Pharmacist note: Day #1 empiric vancomycin therapy initiated with a 1500mg loading dose given today at 1300, followed by 750mg given post-HD starting after the patient's dialysis session on 02/05/19 (based on previous vanco regimen) - aiming for a goal level of 15-20 mcg/ml. Preliminary blood cultures this admission are growing gram positive cocci in chains. WBC was elevated on admit and the patient was febrile. The patient does have a PMH of MRSA and vanco use here at [facility] in August 2018. Normal dialysis schedule is Tuesday, Tuesday, Tuesday. A random level has been scheduled to be drawn with morning labs on Tuesday02/05/19, prior to HD. We will continue to monitor and make dose adjustments if needed. NAHEED GUARDADO [facility] Feb 03, 2019 14:59
[2019-02-03 16:00] VITALS: BP 110/60
--- NOTE | 2019-02-03 16:00 | IPNPDOC ---
Text Note Date of Service The patient was seen on 02/03/19. NOTE Subjective: Patient is a 68-year-old female who presented with altered mental status. Patient was found to have a chronic foot wound on the bottom of her left foot as well as bacteremia on blood culture. Patient has a history of MRSA bacteremia in July 2018 which was treated successfully with vancomycin. Patient says she was feeling slightly better however, she was having a severe pain in her shoulder blade on the left side. She said that the pain was slightly exacerbated by movement of the left arm. She said that the pain was in her back and she cannot differentiate between if it was on her rib or if it was on the scapula. Patient says that the pain would become worse with a deep breath. Other than the pain patient says she is doing slightly better. Patient was more awake and more interactive during examination. Review of systems General: Patient denies fevers HEENT: Patient denies headaches Cardiovascular: Patient denies chest pain Respiratory: Patient denies shortness of breath, cough GI: Patient denies abdominal pain, nausea, vomiting, diarrhea : Patient denies pain or difficulty with urination Neurological: Patient denies numbness or tingling in extremities Extremities: Chronic wound on lower left foot. Pain in the left shoulder blade or ribs near the spine. Objective: Vitals: (see below) General: No acute distress, laying comfortably in bed. HEENT: Normocephalic, atraumatic, moist mucous membranes. Neck: No JVD or lymphadenopathy Cardiac: RRR, No murmurs Pulm: Clear to auscultation b/l. No wheezing, rhonchi Abd: NT/ND + BS Ext: Pain to palpation over the spine of the scapula. Moderate to severe pain while moving the shoulder. Labs (see below) Images: A unilateral rib series with a PA chest performed on 02/03/2018 showed no fractures or other rib abnormalities. The PA chest film showed diffuse bilateral mild interstitial coarsening that appears increased from the prior study, compatible with vascular congestion and interstitial infiltrates. A MRI without contrast of the thoracic spine performed on 02/03/2018 has been done and report is pending. Assessment/Plan 1. Altered mental status secondary to sepsis. Podiatry saw the patient and does not believe the infection is coming from her foot wound. An MRI of the thoracic spine has been done to rule out discitis due to the new onset back and shoulder pain at the patient is having. We will continue to monitor. Due to the patient's history of MRSA bacteremia, we have started the patient on vancomycin. Patient had a listed allergy from vancomycin however, upon further investigation, it appears that this was placed due to an infiltration of an IV line with vancomycin that caused itching and erythema back in August 2017. Patient was able to tolerate a full course of vancomycin to treat the bacteremia the patient experienced in July 2018. I spoke with the pharmacy and the vancomycin allergy has been removed and the patient chart. 2. Cirrhosis with ascites. Patient will be scheduled for paracentesis next week. Patient's IV Zosyn and Zyvox have been changed to IV cefepime in order to cover for possible SBP. Does not appear the patient has spontaneous bacterial akash tonitis however, this cannot be ruled out and less we have cultures. Since patient has been on antibiotics, cultures are extremely unlikely to grow any bacteria when a paracentesis is done. 3. End-stage renal disease on hemodialysis. Dr. Grullon of nephrology has been consulted for management dialysis 4. Hypothyroidism. We'll continue patient's home medication. 5. Type 2 diabetes. We will continue the patient's home Levemir and add sliding scale coverage. 6. Hypertension. We'll continue the patient's home medications. DVT prophy: Heparin 5000 units every 8 hours. Dispo: Pending clinical improvement Hannah PFEIFFER, I+O VSHannah, I+O Laboratory Tests 02/03/19 04:51 Red Blood Count 3.30 L, Mean Corpuscular Volume 98.2 H, Mean Corpuscular Hemoglobin 29.4, Mean Corpuscular Hemoglobin Concent 29.9 L, Red Cell Distribution Width 18.0 H, Neutrophils (%) (Auto) 78.5 H, Lymphocytes (%) (Auto) 9.0 L, Monocytes (%) (Auto) 9.7 H, Eosinophils (%) (Auto) 2.0, Basophils (%) (Auto) 0.2, Neutrophils # (Auto) 6.6, Lymphocytes # (Auto) 0.8 L, Monocytes # (A uto) 0.8, Eosinophils # (Auto) 0.2, Basophils # (Auto) 0.0, Calcium Level 6.8 L Vital Signs Date Time Temp Pulse Resp B/P (MAP) Pulse Ox O2 Delivery O2 Flow Rate FiO2 02/03/19 13:02 17 2.0 02/03/19 12:00 97.7 62 119/57 (77) 93 02/02/19 13:15 Nasal Cannula I&O- Last 24 Hours up to 6 AM 02/03/19 06:00 Intake Total 1260 ml Output Total 2000 ml Balance -740 ml GME ATTESTATION GME ATTESTATION My faculty preceptor for this patient encounter was physically present during the encounter and was fully available. All aspects of the patient interview, examination, medical decision making process, and medical care plan development were reviewed and approved by the faculty preceptor. The faculty preceptor is aware and concurs with the plan as stated in the body of this note and will attest to such by his/her cosignature. ATTENDING NOTE I have both independently examined this patient as well as reviewed the note I have discussed in detail the findings and plan of treatment as documented in the note. I will continue to follow the patient and offer further guidance to the patients care as necessary during this hospital stay. TOY Floyd MD, DO Feb 03, 2019 16:00 MARIE ARBOLEDA MD Feb 04, 2019 07:13
[2019-02-03] MEDS: ACETAMINOPHEN 500 MG TAB PO PRN ×2 (17:32→22:38)
[2019-02-03] MEDS: **NOTE PATIENT COMMENT** MISC XX SCH (17:49)
[2019-02-03 20:00] VITALS: BP 116/60
[2019-02-03] MEDS: SIMVASTATIN 20 MG TAB PO SCH (21:09)
[2019-02-03] MEDS: rOPINIRole 2MG TAB PO SCH (21:09)
[2019-02-03] MEDS: CEFEPIME HCL 1 GM in D5W MINI-BAG PLUS 50 ML IV SCH (21:10)
[2019-02-03] MEDS ORDERED: oxyCODONE 5MG TAB PO ONE (22:00)
[2019-02-04] VITALS (15 sets, daily range): BP systolic 128–180; BP diastolic 58–81
[2019-02-04] MEDS: LEVOTHYROXINE 125MCG TABLET (0.125MG) PO SCH (05:21)
[2019-02-04 05:30] LABS: BASO % 0.5 % (0.0-1.0); EOS # 0.7 10^3/uL (0.0-0.50); EOS % 10.5 % (0.0-3.0); HEMATOCRIT 33.3 % (36.0-47.0); LYMPH % 15.7 % (24.0-44.0); MEAN CORPUSCULAR HEMOGLOBIN 29.3 pg (27.0-33.0); MEAN CORPUSCULAR VOLUME 97.7 fl (80.0-96.0); MONO # 0.7 10^3/uL (0.0-0.8); MONO % 11.7 % (0.0-5.0); NEUTROPHILS # 3.9 10^3/uL (1.8-7.7); RED BLOOD COUNT 3.41 10^6/uL (4.00-5.40); WHITE BLOOD COUNT 6.3 10^3/uL (4.0-10.0)
[2019-02-04 05:41] LABS: PLATELET COUNT, AUTOMATED 96 10^3/uL (150-450)
[2019-02-04 06:00] LABS: CALCIUM LEVEL 6.7 MG/DL (8.8-10.2); CREATININE FOR GFR 5.33 MG/DL (0.55-1.30); GLOMERULAR FILTRATION RATE 8.5 (>39); POTASSIUM SERUM 3.8 MEQ/L (3.5-5.1)
[2019-02-04] MEDS: HEPARIN SOD (PORCINE) 5000 UNITS/ML VIAL SQ SCH ×3 (06:00→21:45)
--- NOTE | 2019-02-04 07:34 | REP ---
THORACIC SPINE WITHOUT CONTRAST: HISTORY: Back pain. The examination is very limited secondary to motion. A small central disc protrusion is present at the T1-2 level. There is minimal effacement of the thecal sac without spinal cord compression. The T1 neural foramina are patent. A disc bulge is present at the T11-12 level. There is minimal effacement of the thecal sac without spinal cord compression. The T11 neural foramina are patent. There is no other disc bulge or herniation. The remaining neural foramina are patent. The spinal cord is normal in signal intensity. Increased signal intensity on T2-weighted images is present in the endplates of the T2, T3, T9 and in 11 vertebral bodies. This represents degenerative change. Normal signal intensity is present in the remaining thoracic vertebral bodies. IMPRESSION: 1. Very limited examination demonstrating a small disc protrusion at the T1-2 level without spinal cord compression. 2. Disc bulge at the T11-12 level without spinal cord compression. Electronically Signed by Carmelo Dean MD 02/05/2019 08:54 A
[2019-02-04] MEDS: PANTOPRAZOLE 40MG TAB (PROTONIX) PO SCH (08:27)
[2019-02-04] MEDS: CALCIUM CARBONATE 500 MG CHEW U/D PO SCH ×3 (08:27→17:35)
[2019-02-04] MEDS: **hydrALAZINE HCL** 25 MG TAB PO SCH ×3 (08:28→20:18)
[2019-02-04] MEDS: METOPROLOL SUCC (TopROL XL) 50MG **XL** TAB PO SCH ×2 (08:28→21:42)
[2019-02-04] MEDS: LEVEMIR (INSULIN DETEMIR) 1 UNITS/0.01ML SC SCH (08:29)
[2019-02-04 09:04] LABS: ERYTHROCYTE SEDIMENTATION RATE 41 mm/hr (0-30)
[2019-02-04] MEDS: ACETAMINOPHEN 500 MG TAB PO PRN (09:39)
[2019-02-04 10:06] LABS: C REACTIVE PROTEIN QUANTITATIV 13.4 MG/DL (0.00-0.30)
[2019-02-04] MEDS: MORPHINE 4 MG/ML 1ML VIAL/SYRINGE (J2270) IV PRN (13:34)
[2019-02-04] MEDS ORDERED: diphenhydrAMINE INJ 50MG/ML VIAL (J1200) IV ONE (14:00)
[2019-02-04 14:23] LABS: SPEC. GRAVITY BODY FLUIDS 1.013 (NOT ESTABLISHED)
[2019-02-04 14:26] LABS: APPEARANCE, BODY FLUID CLEAR (CLEAR); ASCITES FL COLOR PALE YELLOW (COLORLESS); SOURCE, BODY FLUID ASCITES
[2019-02-04 14:49] LABS: SOURCE, BODY FLUID ALBUMIN ASCITES; SOURCE, BODY FLUID GLUCOSE ASCITES; SOURCE, BODY FLUID TOT PROTEIN ASCITES; TOTAL PROTEIN, BODY FLUID 1.4 G/DL (NOT ESTABLISHED)
[2019-02-04] MEDS: LACTOBACILLUS ACIDOPHILUS CAP (BACID) PO SCH ×2 (16:25→21:41)
[2019-02-04] MEDS ORDERED: DARBEPOETIN 100 MCG/0.5 ML *DIALYSIS* SYRINGE (J0882) IV SCH (17:15)
--- NOTE | 2019-02-04 17:23 | IPN ---
DATE: 02/04/2019 Patient seen and examined. Reported worsening abdominal distention. Continues to report left-sided scapular pain that is tender with movement and palpation. Denies any chest pain, pressure or discomfort. Denies any fevers or chills. VITAL SIGNS: Temperature 97.7, pulse 68, respirations 20, blood pressure 133/63, pulse oximetry 100% on 2 liters nasal cannula. LABORATORY DATA: WBC 6.3, hemoglobin and hematocrit 10/33.3, platelets 96. Chemistry: Sodium 136, potassium 3.8, chloride 99, bicarbonate 28, BUN 39, creatinine 5.33, C-reactive protein 13.4. PHYSICAL EXAMINATION: GENERAL: Patient alert, comfortable, in no acute distress. HEENT: Normocephalic, atraumatic. PULMONARY: Bilateral clear. ABDOMEN: Soft with worsening distention, positive bowel sounds. CARDIAC: Regular S1, S2. EXTREMITIES: Painful to palpation medial to the left scapula. No swelling, no erythema, no warmth. Trace edema bilateral lower extremities. ASSESSMENT AND PLAN: This is a 68-year-old female patient with underlying medical history of end-stage renal disease, history of congestive heart failure (CHF), type 2 diabetes, peripheral neuropathy, Charcot foot on left with chronic left foot ulcer, cirrhosis with ascites, history of metabolic encephalopathy, history of Staphylococcus bacteremia, presented to [facility] with confusion, altered mental status. 1. Altered mental status secondary to sepsis. Possible source include patient's left foot wound versus bacteremia with discitis. Podiatry has been consulted for patient's left foot wound status post debridement. Patient currently is on vancomycin and cefepime. Blood cultures positive for Streptococcus. Will consult infectious disease for further recommendation. MRI of thoracic spine does not show any evidence of discitis. 2. Cirrhosis with ascites status post paracentesis. 6075 mL of fluid was removed. Fluid study has been sent. Need outpatient followup for cirrhosis. Possible non-alcoholic steatohepatitis (AMADOR). 3. End-stage renal disease on dialysis. Further recommendation as per nephrology. 4. Hypothyroidism. Continue current medication. 5. Type 2 diabetes. Continue basal bolus insulin, adjust as needed. 6. Hypertension. Continue home medication. 7. Coronary artery disease. Continue Plavix, metoprolol, hydralazine, Zocor, and statin. 8. Restless legs. Continue current medication. 9. Deep venous thrombosis (DVT) prophylaxis. Heparin subcutaneous. 10. Diarrhea. Clostridium (C) difficile has been ordered. Probiotics. DISPOSITION: Pending clinical improvement, physical therapy. Likely will consult infectious disease on Tuesday.
[2019-02-04] MEDS: **NOTE PATIENT COMMENT** MISC XX SCH (17:24)
[2019-02-04] MEDS: CEFEPIME HCL 1 GM in D5W MINI-BAG PLUS 50 ML IV SCH (21:37)
[2019-02-04] MEDS: rOPINIRole 2MG TAB PO SCH (21:38)
[2019-02-04] MEDS: SIMVASTATIN 20 MG TAB PO SCH (21:41)
[2019-02-05] MEDS: oxyCODONE 5MG TAB PO PRN ×3 (03:49→16:45)
[2019-02-05 04:59] LABS: BASO % 0.5 % (0.0-1.0); EOS # 0.5 10^3/uL (0.0-0.50); EOS % 8.2 % (0.0-3.0); HEMATOCRIT 34.2 % (36.0-47.0); HEMOGLOBIN 10.5 g/dl (12.0-15.5); LYMPH % 17.2 % (24.0-44.0); MEAN CORPUSCULAR HEMOGLOBIN 29.3 pg (27.0-33.0); MEAN CORPUSCULAR HGB CONC 30.7 g/dl (32.0-36.5); MEAN CORPUSCULAR VOLUME 95.5 fl (80.0-96.0); MONO # 0.7 10^3/uL (0.0-0.8); MONO % 12.2 % (0.0-5.0); NEUTROPHILS # 3.5 10^3/uL (1.8-7.7); NEUTROPHILS % 60.7 % (36.0-66.0); RED BLOOD COUNT 3.58 10^6/uL (4.00-5.40); WHITE BLOOD COUNT 5.8 10^3/uL (4.0-10.0)
[2019-02-05 05:00] LABS: PLATELET COUNT, AUTOMATED 90 10^3/uL (150-450)
[2019-02-05 05:18] LABS: CALCIUM LEVEL 6.7 MG/DL (8.8-10.2); CREATININE FOR GFR 6.62 MG/DL (0.55-1.30); GLOMERULAR FILTRATION RATE 6.6 (>39); POTASSIUM SERUM 3.9 MEQ/L (3.5-5.1); VANCOMYCIN RANDOM 19.1 UG/ML
[2019-02-05] MEDS: LEVOTHYROXINE 125MCG TABLET (0.125MG) PO SCH (05:33)
[2019-02-05] MEDS: HEPARIN SOD (PORCINE) 5000 UNITS/ML VIAL SQ SCH ×3 (06:00→21:38)
--- NOTE | 2019-02-05 06:17 | PHACANCOPD ---
PHARMACY VANCOMYCIN DOSING Pt Demographics Demographics Patient Age:68 , Weight:79.000 , Gender: female Adjusted Body Weight Date: 02/03/19, Adjusted Body Weight: Kg Events Past 24 Hours Events Past 24 Hours: NO: Dialysis, Diuretic Therapy, Change in CrCl, Fever, Elevation in WBC, Pending Diagnostics, Pending Procedures, Other Vancomycin Vancomycin indication: SEPSIS H/O MRSA Vancomycin Target Ranges: 15-20 mcg/ml Vancomycin Load Y/N: Yes Load Dose Date Time Vancomycin Load Dose: 1500MG Date: 02/03/19 Time:1300 Vancomycin Dose Date: 02/03/19. Current Vancomycin Dose: [750MG IV HD] Intermittent Dosing?: Yes Labs Micro Microbiology 02/03/19 Blood Culture - Preliminary, Resulted No growth after 24 hours . All specim... 02/02/19 Blood Culture - Final, Complete Strep Dysgalactiae Sp Equisim 02/04/19 Acid Fast Stain, Received Pending 02/04/19 Mycobacterial Culture, Received Pending 02/04/19 Fungal Smear, Received Pending 02/04/19 Fungal Culture, Received Pending 02/04/19 Gram Stain - Final, Resulted 02/04/19 Body Fluid Culture, Resulted Pending Creatinine Clearance Date:02/03/19. Est Creatinine Clearance: [~10ml/min]. Pending Labs Random vancomycin level scheduled 02/05/19 with morning labs, prior to HD session Assessment and Plan Maintaining Current Dose?: Yes Reason for dose change: No Dose Change Pharmacist Note Pharmacist Note Date: 02/05/19. Pharmacist note: PT vancomycin level came back this am at 19.1mcg/ml. We will continue 750mg after HD. Another level is scheduled for 02/07/19 am. We will continue to monitor and adjust dose as needed. Date: 02/03/19. Pharmacist note: Day #1 empiric vancomycin therapy initiated with a 1500mg loading dose given today at 1300, followed by 750mg given post-HD starting after the patient's dialysis session on 02/05/19 (based on previous vanco regimen) - aiming for a goal level of 15-20 mcg/ml. Preliminary blood cultures this admission are growing gram positive cocci in chains. WBC was elevated on admit and the patient was febrile. The patient does have a PMH of MRSA and vanco use here at [facility] in August 2018. Normal dialysis schedule is Tuesday, Tuesday, Tuesday. A random level has been scheduled to be drawn with morning labs on Tuesday02/05/19, prior to HD. We will continue to monitor and make dose adjustments if needed. MOHSEN PORTER [facility]ARM[facility] Feb 05, 2019 06:17
[2019-02-05] MEDS: LACTOBACILLUS ACIDOPHILUS CAP (BACID) PO SCH ×3 (06:37→21:36)
[2019-02-05] MEDS: PANTOPRAZOLE 40MG TAB (PROTONIX) PO SCH (06:38)
[2019-02-05] MEDS: CALCIUM CARBONATE 500 MG CHEW U/D PO SCH ×3 (06:38→16:44)
--- NOTE | 2019-02-05 06:55 | RO ---
DATE OF PROCEDURE: 02/04/2019 PROCEDURE PERFORMED: Diagnostic and therapeutic paracentesis. PREPROCEDURE DIAGNOSIS: Ascites. POSTPROCEDURE DIAGNOSIS: Ascites. PHYSICIAN PERFORMING PROCEDURE: Makayla Muir MD PHYSICIAN PIANO PROFESSOR: None. ESTIMATED BLOOD LOSS: Minimum. SEDATION: None. ANESTHETIC: 1% local lidocaine. VENTILATION: 2 liters nasal cannula. Consent was obtained. Risks and benefits explained to the patient. The patient was placed in supine position and the patient's right side is slightly elevated. Ultrasound was used. Ascitic fluid at the left lower quadrant of the patient's abdomen was located. Site is marked. Subsequently, site was cleaned with ChloraPrep and covered in the usual manner. 1% lidocaine was first injected subcutaneously then deep skin was nicked. Subsequently, introducer needle with lending consultant with negative pressure. Clear fluid was expressed. Subsequently, catheter was slid over the introducer needle into the patient's abdominal cavity and introducer needle was removed at the same time and tubes were connected to the plastic catheter to suction. Vital signs were taken after every liter of fluid removal. The patient did not experience any decrease in blood pressure. A total of 6075 mL of clear yellow ascitic fluid was removed. The procedure was terminated when blood flow stopped and catheter was removed. Dressing was placed. Patient tolerated the procedure with no complications. Fluid was sent off for testing. 2 units of 25 grams of albumin was ordered following the procedure.
[2019-02-05 08:00] VITALS: BP 142/62; PULSE 65
[2019-02-05] MEDS: **hydrALAZINE HCL** 25 MG TAB PO SCH ×3 (09:00→21:36)
[2019-02-05 09:57] LABS: MB/CK RELATIVE INDEX 3.58 (< OR =4); TROPONIN I 0.02 NG/ML (< 0.10)
--- NOTE | 2019-02-05 11:14 | IPN ---
DATE: 02/03/2019 Mrs. Hernandez is seen this morning on her bedside. She is laying in the bed in the morning. She has complained of severe pain in her left shoulder blade area. Nursing staff report that 2 mg of morphine was given just a few minutes ago which has not helped much. The patient does have history of fall a few weeks ago and left-sided rib fracture. However, she reports this pain is new and different. She denies any cough or hemoptysis at present. She does have a positive blood culture and is being treated for sepsis. The patient also has history of end-stage renal disease, history of cirrhosis with recurrent ascites requiring paracentesis and history of peripheral vascular disease. She has an ulcer on her foot. On physical examination, temperature 97.7 degrees Fahrenheit, heart rate 62 per minute and respiratory rate 18 per minute. Blood pressure 119/57 mmHg and oxygen saturation 93%. Head is atraumatic. Neck veins are not abnormally distended. Heart sounds are regular and lungs sound clear to auscultation. She has marked tenderness in her left scapular and paravertebral area. Abdomen is markedly distended with ascites and is nontender. Extremities have chronic stasis changes. Left foot is wrapped in a dressing. Neurologically, she is awake and at her baseline mentation. Today's labs show WBC count 8.4, hemoglobin 9.7 and hematocrit 32.4. Sodium 135, potassium 3.8, CO2 30, BUN 26 and creatinine 4.33. Calcium 6.8. PROBLEMS: 1. End-stage renal disease. The patient was dialyzed yesterday and her next dialysis will be scheduled for Tuesday. At present. there is no emergent indication for dialysis today. 2. Pain in her shoulder and scapular area. I am concerned about possibility of diskitis as she does have positive blood cultures. She remains on antibiotics. I have discussed with Dr. Muir for possibility of getting an MRI of her thoracic spine. 3. Gram positive bacteremia, most likely related to her left foot infection. She is on Zyvox and Zosyn at present. I am not sure if she has real allergy to vancomycin. She can probably be switched to vancomycin and see how she does. 4. Cirrhosis of liver with recurrent ascites. The patient does have recurrent ascites and has required paracentesis. She will probably need another paracentesis early next week. 5. Anemia. At present, her anemia is stable and we will continue to monitor closely.
[2019-02-05] MEDS ORDERED: HEPARIN 1,000 UNITS/ML 10ML VIAL (FOR RADIOLOGY& DIALYSIS ONLY) IV ONE (11:30)
--- NOTE | 2019-02-05 11:56 | IPNPDOC ---
Text Note Date of Service The patient was seen on 02/05/19. NOTE Subjective: Patient is a 68-year-old female who initially presented to the hospital with altered mental status and confusion as well as a fever. Patient is been afebrile since being in the hospital. Patient had a paracentesis yesterday which she tolerated well. She states she is feeling better however, she is complaining of some pain in her left shoulder, left back, and left chest. She describes his pain as a heaviness that she when trying to take a deep breath. Patient says the foot is feeling better and is not as much pain. Patient has been eating and drinking well. Patient to have dialysis today. Review of systems General: Patient denies fevers HEENT: Patient denies headaches Cardiovascular: Patient says she has some pain in her left chest which is worse when she pushes on it. Respiratory: Patient denies shortness of breath, cough GI: Patient denies abdominal pain, nausea, vomiting, diarrhea : Patient denies pain or difficulty with urination Neurological: Patient denies numbness or tingling in extremities Extremities: Minimal pain in left foot. Patient is complaining of pain in her left shoulder and left back. Objective: Vitals: (see below) General: No acute distress, laying comfortably in bed. HEENT: Normocephalic, atraumatic, moist mucous membranes. Neck: No JVD or lymphadenopathy Cardiac: RRR, No murmurs Pulm: Clear to auscultation b/l. No wheezing, rhonchi Abd: NT/ND + BS Ext: Wound on the plantar surface of left foot has granulation tissue around the outside. There is no surrounding erythema. There is some erythema extending up the left ankle and left baig. One plus pitting edema bilaterally. Dorsalis pedis and posterior tibial pulses diminished bilaterally. Radial pulses 2 out of 4 bilaterally. Labs (see below) Images: No imaging has been performed since 02/03/2019 Assessment/Plan 1. Altered mental status secondary to sepsis. Patient's blood cultures did come back with a streptococcal species. Infectious disease has been consulted and will see the patient. Patient is currently on vancomycin and cefepime. Patient does have a history of MRSA bacteremia. We await further cultures and advice from infectious disease. We appreciate Dr. Fontanez's help treating the patient. 2. Cirrhosis with ascites status post paracentesis. 6075 milliliters of fluid was removed. Fluid study has been sent. Patient will need outpatient follow-up for cirrhosis. 3. End-stage renal disease on dialysis. Patient to receive dialysis today. 4. Both thyroidism. We'll continue her home medication. 5. Type 2 diabetes. Continue sliding scale and basal insulin coverage. 6. Hypertension. Continue home medication. 7. Coronary artery disease. Plavix can be restarted since paracentesis been completed. Continue metoprolol hydralazine Zocor and statin. 8. Restless leg. Continue current medication. 9. Diarrhea. C. difficile has been ordered but has not been sent. DVT prophy: Upper and 5000 units 3 times a day Dispo: Pending clinical improvement. VS,Fishbone, I+O VS, Fishbone, I+O Laboratory Tests 02/05/19 04:37 Red Blood Count 3.58 L, Mean Corpuscular Volume 95.5, Mean Corpuscular Hemoglobin 29.3, Mean Corpuscular Hemoglobin Concent 30.7 L, Red Cell Distribution Width 17.2 H, Neutrophils (%) (Auto) 60.7, Lymphocytes (%) (Auto) 17.2 L, Monocytes (%) (Auto) 12.2 H, Eosinophils (%) (Auto) 8.2 H, Basophils (%) (Auto) 0.5, Neutrophils # (Auto) 3.5, Lymphocytes # (Auto) 1.0 L, Monocytes # (Auto) 0.7, Eosinophils # (Auto) 0.5, Basophils # (Auto) 0.0, Calcium Level 6.7 L Vital Signs Date Time Temp Pulse Resp B/P (MAP) Pulse Ox O2 Delivery O2 Flow Rate FiO2 02/05/19 09:58 18 02/05/19 08:00 98.0 65 142/62 (88) 92 02/04/19 16:15 2.0 02/02/19 13:15 Nasal Cannula I&O- Last 24 Hours up to 6 AM 02/05/19 05:59 Intake Total 770 ml Output Total 6075 ml Balance -5305 ml GME ATTESTATION GME ATTESTATION My faculty preceptor for this patient encounter was physically present during the encounter and was fully available. All aspects of the patient interview, examination, medical decision making process, and medical care plan development were reviewed and approved by the faculty preceptor. The faculty preceptor is aware and concurs with the plan as stated in the body of this note and will attest to such by his/her cosignature. ATTENDING NOTE I have both independently examined this patient as well as reviewed the note I have discussed in detail the findings and plan of treatment as documented in the note. I will continue to follow the patient and offer further guidance to the patients care as necessary during this hospital stay. TOY Floyd MD, DO Feb 05, 2019 11:56 MARIE ARBOLEDA MD Feb 06, 2019 07:37
--- NOTE | 2019-02-05 15:14 | IPN ---
DATE OF VISIT: 02/04/2019 Mrs. Hernandez is seen this morning on her bedside. She is feeling better today and her left shoulder and scapular area pain is much better. She had an MRI done yesterday, which did not show any evidence for discitis. She does have abdominal distension due to ascites, but denies any nausea, vomiting, chest pain, fever or chills. On physical exam, temperature 97.7 degrees Fahrenheit, heart rate 58 per minute and respiratory rate 18 per minute. Blood pressure 133/63 mmHg and oxygen saturation 92%. Head is atraumatic. Neck is supple and without jugular venous distention (JVD) or thyroid enlargement. Heart sounds are regular and lung sounds clear to auscultation. Abdomen is distended with large amount of ascites and bowel sounds are normal. Extremities have no cyanosis or clubbing. She has chronic stasis changes in her lower extremities. Her left foot is wrapped in dressing. Neurologically, she is at her baseline mentation without a focal deficit. Today's labs show WBC count 6.3, hemoglobin 10.0 and hematocrit 33.3. Platelets are 96,000. Sodium 136, potassium 3.8, BUN 39 and creatinine 5.33. A C-reactive protein is 13.40. PROBLEMS: 1. End-stage renal disease. Patient remains dialysis dependent and will be dialyzed again tomorrow. There is no emergent indication for dialysis today. 2. Hypertension. Blood pressure is very well controlled on current antihypertensive meds and no changes are being made today. 3. Anemia. Her anemia has been stable and we will continue to manage with dialysis. We will give her Aranesp 100 mcg once a week. 4. Gram positive bacteremia. She did have positive blood cultures with strep. Most likely source is her foot infection. She remains afebrile on antibiotics. 5. Cirrhosis of liver with recurrent ascites. Patient is going to require paracentesis and Dr. Muir is planning to do a bedside paracentesis today.
[2019-02-05 16:00] VITALS: BP 148/82
[2019-02-05] MEDS: CLOPIDOGREL 75 MG TAB PO SCH (16:44)
[2019-02-05] MEDS: METOPROLOL SUCC (TopROL XL) 50MG **XL** TAB PO SCH ×2 (16:46→21:37)
[2019-02-05] MEDS: LEVEMIR (INSULIN DETEMIR) 1 UNITS/0.01ML SC SCH (16:48)
[2019-02-05] MEDS: **NOTE PATIENT COMMENT** MISC XX SCH (16:49)
[2019-02-05] MEDS: **VANCO AFTER HD** MISC XX SCH (16:50)
[2019-02-05] MEDS: VANCOMYCIN HCL 750 MG, VIAL MATE ADAPTER 1 EACH in D5W 250 ML IV SCH (16:50)
[2019-02-05 20:00] VITALS: BP 156/72
--- NOTE | 2019-02-05 20:10 | ECGEPIP ---
Stationary ECG Study [facility] Test Date: 2019-02-05 Pat Name: GUI JEAN Department: Room: [place] [address] Gender: F Deputy General Counsel: REGINA : 1950 Requested By: TOY MANN Order Number: [id number] Reading MD: Jasiel Maldonado Measurements Intervals [place] Rate: 65 P: 19 NM: 164 QRS: -34 QRSD: 92 T: 47 QT: 454 QTc: 474 Interpretive Statements Normal sinus rhythm Left axis deviation Prior in chair wall myocardial infarction Nonspecific repolarization abnormality No significant change since prior tracing of 01/09/2019 Electronically Signed On 02-05-2019 20:10:44 EDT by Jasiel Maldonado
[2019-02-05] MEDS: rOPINIRole 2MG TAB PO SCH (21:36)
[2019-02-05] MEDS: SIMVASTATIN 20 MG TAB PO SCH (21:37)
[2019-02-05] MEDS: EUCERIN 120GM CREAM TOP SCH (21:37)
[2019-02-06] VITALS: BP 138/69
[2019-02-06 04:00] VITALS: BP 164/72
[2019-02-06 04:27] LABS: CLOSTRIDIUM DIFFICILE PCR NEGATIVE (NEGATIVE)
[2019-02-06] MEDS: HEPARIN SOD (PORCINE) 5000 UNITS/ML VIAL SQ SCH ×4 (06:00→22:00)
[2019-02-06 06:13] LABS: BASO # 0.1 10^3/uL (0.0-0.2); BASO % 0.8 % (0.0-1.0); EOS # 0.5 10^3/uL (0.0-0.50); EOS % 7.6 % (0.0-3.0); HEMATOCRIT 34.6 % (36.0-47.0); HEMOGLOBIN 10.6 g/dl (12.0-15.5); LYMPH # 1.1 10^3/uL (1.5-4.5); MEAN CORPUSCULAR HEMOGLOBIN 29.1 pg (27.0-33.0); MEAN CORPUSCULAR HGB CONC 30.6 g/dl (32.0-36.5); MEAN CORPUSCULAR VOLUME 95.1 fl (80.0-96.0); MONO # 0.9 10^3/uL (0.0-0.8); MONO % 14.8 % (0.0-5.0); NEUTROPHILS # 3.4 10^3/uL (1.8-7.7); NEUTROPHILS % 55.7 % (36.0-66.0); RED BLOOD COUNT 3.64 10^6/uL (4.00-5.40); WHITE BLOOD COUNT 6.2 10^3/uL (4.0-10.0)
[2019-02-06 06:15] LABS: PLATELET COUNT, AUTOMATED 82 10^3/uL (150-450)
[2019-02-06] MEDS: LEVOTHYROXINE 125MCG TABLET (0.125MG) PO SCH (06:32)
[2019-02-06 06:38] LABS: C REACTIVE PROTEIN QUANTITATIV 6.19 MG/DL (0.00-0.30); CALCIUM LEVEL 7.3 MG/DL (8.8-10.2); CREATININE FOR GFR 4.39 MG/DL (0.55-1.30); GLOMERULAR FILTRATION RATE 10.6 (>39); MAGNESIUM LEVEL 1.9 MG/DL (1.8-2.4); POTASSIUM SERUM 3.9 MEQ/L (3.5-5.1)
[2019-02-06 08:00] VITALS: BP 153/69
--- NOTE | 2019-02-06 08:10 | IPN ---
DATE: 02/05/2019 Mrs. Hernandez is seen this morning on her bedside. She had paracentesis done yesterday and more than 6 liters fluid was removed by Dr. Muir. She denies any dyspnea, chest pain, abdominal pain, nausea or vomiting. However, her abdomen remains quite distended and bloated. On physical exam, temperature 98 degrees Fahrenheit, heart rate 65 per minute and respiratory rate 18 per minute. Blood pressure 142/62 mmHg and oxygen saturation 92% on room air. Her head is atraumatic. Neck is supple and without jugular venous distention (JVD) or thyroid enlargement. She has no oral thrush or ulcers. Heart sounds are regular and abdomen is distended with large amount of ascites. Lungs sound clear to auscultation. Extremities have no cyanosis or clubbing. Lower extremity edema and chronic stasis changes are unchanged. Her left foot is wrapped in dressing. Neurologically, she is at her baseline mentation without a focal deficit. Today's labs show sodium 137, potassium 3.5, CO2 28, BUN 52 and creatinine 6.62. WBC count is 5.8, hemoglobin 10.5 and hematocrit 34.2. PROBLEMS: 1. End-stage renal disease. Patient is regularly dialyzed on Tuesday, Tuesday and Tuesday schedule. She is due for dialysis today and will be scheduled for dialysis this afternoon. 2. Congestive heart failure and chronic hypervolemia. Her volume status remains chronically decompensated, however, now she gets large amount of ascites so it becomes more challenging to remove fluid during dialysis. We will keep trying to maintain her volume status with dialysis. 3. Anemia, stable and no intervention is indicated. In fact, since admission, her anemia has improved. She will continue to receive Aranesp during dialysis once a week. 4. Cirrhosis of liver with recurrent ascites. Patient had a paracentesis done yesterday. She will probably require paracentesis again later in the week. At this point, she seems comfortable even though her abdomen is distended. We will try to remove about 1.5 liters fluid with dialysis today.
[2019-02-06] MEDS: PANTOPRAZOLE 40MG TAB (PROTONIX) PO SCH (08:31)
[2019-02-06] MEDS: CALCIUM CARBONATE 500 MG CHEW U/D PO SCH ×3 (08:31→17:31)
[2019-02-06] MEDS: METOPROLOL SUCC (TopROL XL) 50MG **XL** TAB PO SCH ×2 (08:31→21:22)
[2019-02-06] MEDS: LACTOBACILLUS ACIDOPHILUS CAP (BACID) PO SCH ×3 (08:31→21:22)
[2019-02-06] MEDS: **hydrALAZINE HCL** 25 MG TAB PO SCH ×3 (08:32→21:22)
[2019-02-06] MEDS: LEVEMIR (INSULIN DETEMIR) 1 UNITS/0.01ML SC SCH (08:33)
[2019-02-06] MEDS: EUCERIN 120GM CREAM TOP SCH ×2 (08:33→21:23)
[2019-02-06] MEDS: CLOPIDOGREL 75 MG TAB PO SCH (10:27)
[2019-02-06] MEDS: ONDANSETRON 4MG/2ML VIAL (J2405) IV PRN (10:27)
--- NOTE | 2019-02-06 11:18 | CR ---
DATE OF CONSULTATION: 02/05/2019 ATTENDING PHYSICIAN: Dr. Makayla Muir. REASON FOR CONSULTATION: Streptococcus dysgalactiae species equisimilis, bacteremia times one and a history of Methicillin-resistant staphylococcus aureus (MRSA) bacteremia in the past. HISTORY OF PRESENT ILLNESS: This is a 68-year-old female who has multiple comorbidities but pertinent for Charcot foot, cirrhosis, history of metabolic encephalopathy, endstage renal disease, diabetes, who presented to the emergency department on 02/02/2019 for altered mental status and confusion. She was brought in by her daughter who noticed the patient was having episodes of altered mental status and confusion. For the past 1 week, she was having episodes of nausea, vomiting and diarrhea. Daughter had noticed that she had not taken her medications on the day of admission and that she had missed one day of dialysis that week. When she was in the emergency room, she had a T-max of 102.1 and WBC of 21.0. She was given one dose of Zosyn and IV fluids and she was admitted to the hospital service. While she was admitted to the hospital service, she had completed multiple antibiotics on a five day span which included Zosyn, linezolid, vancomycin and cefepime. When talking to the daughter during examination today, she states the patient's lower extremities are a little bit more erythematous bilaterally which is a change from baseline. Ms. Hernandez does admit during exam she had noticed more frequent stools recently. They are not watery in nature. This has been going on for a while. She has colonoscopies in the past which were negative and multiple Clostridium difficile PCRs in the past which were negative as well. She has been taking Lomotil. She is also complaining of left back pain that has become more pronounced since she has been admitted. Thoracic spine MRI was negative for any acute findings. PAST MEDICAL HISTORY: 1. Endstage renal disease on dialysis Tuesday, Tuesday, Tuesday. 2. Chronic noncompliance. 3. Diabetes. 4. Diabetic neuropathy. 5. Coronary artery disease. 6. Hypertension. 7. Hypothyroidism. 8. Diastolic congestive heart failure. 9. Anemia of chronic renal disease. 10. Secondary hyperparathyroidism. 11. Obstructive sleep apnea. 12. Restless leg syndrome. 13. Depression. 14. History of Methicillin-resistant staphylococcus aureus (MRSA) bacteremia. 15. Charcot foot. 16. History of metabolic encephalopathy. 17. Cirrhosis. PAST SURGICAL HISTORY: 1. Four coronary stents. 2. Left arm AV fistula. 3. Appendectomy. 4. Hysterectomy. 5. Bilateral cataract removal. 6. Left toe amputation secondary to osteomyelitis. 7. Right second toe amputation. SOCIAL HISTORY: Nonsmoker who denies elicit drug use or alcohol use. ALLERGIES: PREGABALIN, confusion. REVIEW OF SYSTEMS: Constitutional: Generalized fatigue. No weight loss or weight gain. HEENT: Denies visual changes, dysphagia, trouble swallowing. Cardiovascular: Does have a history of congestive heart failure but denies any chest pain. Respiratory: Denies any shortness of breath or any cough. Gastrointestinal: Admits to loose stools. Has a history of cirrhosis and ascites. Denies any nausea or vomiting at this time. Genitourinary: Denies any dysuria or hematuria. She has endstage renal disease as well on dialysis Tuesday, Tuesday, Tuesday. Musculoskeletal: Has a history of Charcot foot. Severe pain in her left foot status post the ulcer of the heel and left back pain. Hematology: Denies easy bruising or bleeding. Endocrine: History of diabetes and secondary hyperparathyroidism. Neurologic: Had a history of confusion initially at admission, currently improved. HOME MEDICATIONS: - Xanax - Phos-Lo - Tums - Plavix - gabapentin - hydralazine - insulin - Bacid - levothyroxine - Losartan - metoprolol - Nystatin - oxycodone - Protonix - Veltassa - Requip - simvastatin - trazodone PHYSICAL EXAMINATION: Vital signs: Temperature 97.2, pulse 84, respirations 30, blood pressure 148/82 (104 pulse oximeter 99%). General: This is a very pleasant 68-year-old female who does not appear in acute distress who was seen and examined this morning in the hemodialysis unit receiving her maintenance treatment. At the time of exam, she was awake, alert and oriented and able to answer questions appropriately. HEENT: Extraocular movements are intact. Tongue is moist. Cheeks are slightly flushed. No lymphadenopathy noted. Cardiac: Regular rate and rhythm. 1+ pitting edema in the lower extremities. Lungs: Clear to auscultation bilaterally. No crackles, rales or wheezing appreciated. Abdomen: Distended. Positive fluid wave. Ascites noted. Slight tenderness in the right quadrant status post paracentesis. No irritation or discharge noted. Extremities: Right upper extremity fistula patent currently being used for dialysis. Lower extremities: 1+ edema. Left foot has about 5 x 4 superficial ulcer at the heel of the foot, looks slightly red but no visual discharge can be noted. No pus. No foul smell appreciated. Good granulation tissue can be noted around the edges. Bilateral erythema can be appreciated to mid calves. LABS: Hematology: WBC 5.8, hemoglobin 10.5, hematocrit 34.2, platelets 90. Chemistries: Sodium 137, potassium 3.9, chloride 102, carbon dioxide 28, anion gap 8, BUN 52, creatinine 6.62, fasting glucose 207, calcium 6.7. CRP 13.4. Microbiology: Blood cultures times one positive for streptococcus dysgalactiae equisimilis. Repeat blood cultures no growth after 48 hours. Ascites fluid pending. IMAGING: Refer to chart. ASSESSMENT AND PLAN: This is a 68-year-old female with multiple comorbidities who presented to the hospital for altered mental status as well as fever who has one episodes of streptococcus dysgalactiae equisimilis bacteremia. The patient will be managed with the following problems: 1. Transient bacteremia. History is positive for an open soft tissue infection on the left heel. She had altered mental status and fever as well as leukocytosis on admission. Her initial blood culture showing that it was positive for the streptococcal species and because of her history of Methicillin-resistant staphylococcus aureus (MRSA) bacteremia. She has been on multiple antibiotics. The possible transient bacteremia can be from a superficial cellulitis. On physical exam today, she does have some erythema bilaterally in the lower extremities and there is an open wound on her heel. We do recommend continuing antibiotics for 7-10 days. Blood culture shows that it is sensitive to multiple antibiotics but we do advise to continue with the vancomycin for the other antibiotics are more likely to exacerbate her current diarrhea problem. I do recommend to repeat the CRP in the morning and if continues to downtrend, possible one to two more vancomycin treatments to get a total of 7-10 days of antibiotics is sufficient. 2. Chronic diarrhea. She is complaining of multiple loose stools during exam. She states it is chronic in nature. She has had multiple Clostridium difficile CCRs in the past which were negative. We will obtain a Clostridium difficile PCR today as well. If this comes back negative, do recommend using Lomotil to help with the diarrhea. She has used Imodium in the past with no relief. Because of the diarrhea, we do recommend continue IV vancomycin versus any of the other antibiotics that her streptococcus species is sensitive to. Continue to monitor. 3. History of diastolic congestive heart failure, chronically volume overloaded with ascites. She is currently getting dialysis on Tuesday, Tuesday, Tuesday. Follow the recommendations of hospitalist and nephrology team. 4. Cirrhosis with ascites. Paracentesis showed WBCs of 112 with PMNs of 50.9. This is not SBP. Cultures are currently pending. Not a possible infectious source. Follow the recommendation of hospitalist team for ascites management. My faculty preceptor for this patient encounter was physically present during the encounter and was fully available. All aspects of the patient interview, examination, medical decision making process, and medical care plan development were reviewed and approved by the faculty preceptor. The faculty preceptor is aware and concurs with the plan as stated in the body of this note and will attest to such by his/her cosignature. SHAAN
[2019-02-06] MEDS ORDERED: DEXTROSE 50% 50 ML SYRINGE IV PRN (12:30)
[2019-02-06] MEDS ORDERED: GLUCOSE 4 GM CHEW TABLET PO PRN (12:30)
[2019-02-06] MEDS ORDERED: GLUCAGON FOR INJ 1 MG VIAL (J1610) SC PRN (12:30)
[2019-02-06] MEDS: HumaLOG INSULIN (NovoLOG) PER UNIT SC SCH ×3 (12:51→21:00)
--- NOTE | 2019-02-06 13:38 | IPNPDOC ---
Text Note Date of Service The patient was seen on 02/06/19. NOTE Subjective: Patient is a 68-year-old female who initially presented to the hospital with fever and altered mental status. Patient has been fluid resuscitated and has been started on antibiotics. Patient is doing much better today. She appears nervous while walking around. Both nursing staff and physical therapy say that she is able to move around however, she chooses not to because she is more nervous about falling. Patient reports simply lost her and appears to be more depressed. She is saying the pain in her foot is well- controlled in the back and she left shoulder pain she was complaining of the last few days has also been more controlled. Review of systems General: Patient denies fevers HEENT: Patient denies headaches Cardiovascular: Patient denies chest pain Respiratory: Patient denies shortness of breath, cough GI: Patient denies abdominal pain, nausea, vomiting, diarrhea : Patient denies pain or difficulty with urination Neurological: Patient denies numbness or tingling in extremities Extremities: Patient's pain in the left foot is better controlled Objective: Vitals: (see below) General: No acute distress, laying comfortably in bed. HEENT: Normocephalic, atraumatic, moist mucous membranes. Neck: No JVD or lymphadenopathy Cardiac: RRR, No murmurs Pulm: Clear to auscultation b/l. No wheezing, rhonchi Abd: NT/ND + BS Ext: Trace pitting edema bilaterally.Dressing covering left foot not soiled and intact. Labs (see below) Images: No new imaging is been performed. Assessment/Plan 1. Altered mental status secondary to sepsis. Patient's blood cultures came back with a streptococcal species. Infectious disease consultation has been placed. They have seen the patient. They wanted to continue patient with another few doses of vancomycin because of her history of MRSA bacteremia. We appreciate Dr. Fontanez's help in treating the patient. 2. Cirrhosis with ascites status post paracentesis. 6.075 L of fluid was removed. Fluid studies been sent. Patient will need follow-up outpatient for cirrhosis. 3. End-stage renal disease on dialysis. Dialysis per nephrology. 4. Hypothyroidism we'll continue her home medication. 5. Type 2 diabetes. We'll continue sliding scale coverage as well as basal insulin. 6. Hypertension. Continue home medication. 7. Coronary artery disease. Plavix can be restarted since paracentesis been completed. Continue metoprolol, hydralazine, Zocor, and statin. 8. Restless leg. Continue current medication. 9. Diarrhea. C. difficile was negative. Continue to monitor. DVT prophy: Heparin 5000 units 3 times a day. Patient has been refusing the shots. Dispo: Pending clinical improvement VS,Fishbone, I+O VS, Fishbone, I+O Laboratory Tests 02/06/19 05:25 Red Blood Count 3.64 L, Mean Corpuscular Volume 95.1, Mean Corpuscular Hemoglobin 29.1, Mean Corpuscular Hemoglobin Concent 30.6 L, Red Cell Distribution Width 17.2 H, Neutrophils (%) (Auto) 55.7, Lymphocytes (%) (Auto) 18.0 L, Monocytes (%) (Auto) 14.8 H, Eosinophils (%) (Auto) 7.6 H, Basophils (%) (Auto) 0.8, Neutrophils # (Auto) 3.4, Lymphocytes # (Auto) 1.1 L, Monocytes # (Auto) 0.9 H, Eosinophils # (Auto) 0.5, Basophils # (Auto) 0.1, Calcium Level 7.3 L Vital Signs Date Time Temp Pulse Resp B/P (MAP) Pulse Ox O2 Delivery O2 Flow Rate FiO2 02/06/19 08:32 153/64 02/06/19 08:31 64 02/06/19 08:00 98.8 18 97 02/04/19 16:15 2.0 02/02/19 13:15 Nasal Cannula I&O- Last 24 Hours up to 6 AM 02/06/19 06:00 Intake Total 940 ml Output Total 1500 ml Balance -560 ml GME ATTESTATION GME ATTESTATION My faculty preceptor for this patient encounter was physically present during the encounter and was fully available. All aspects of the patient interview, examination, medical decision making process, and medical care plan development were reviewed and approved by the faculty preceptor. The faculty preceptor is aware and concurs with the plan as stated in the body of this note and will attest to such by his/her cosignature. ATTENDING NOTE I have both independently examined this patient as well as reviewed the note I have discussed in detail the findings and plan of treatment as documented in the note. I will continue to follow the patient and offer further guidance to the patients care as necessary during this hospital stay. TOY Floyd MD, DO Feb 06, 2019 13:38 MARIE ARBOLEDA MD Feb 07, 2019 19:13
--- NOTE | 2019-02-06 15:06 | IPN ---
DATE: 02/06/2019 Mrs. Hernandez is seen this morning on her bedside. She is sitting in the chair at the time of my visit. She reports loose stools today but no nausea or vomiting. She has no dyspnea or chest pain. Her abdominal distension related to ascites is unchanged. She was dialyzed yesterday which she tolerated very well. PHYSICAL EXAMINATION: Temperature 98.8 degrees Fahrenheit, heart rate 68 per minute and respiratory rate 18 per minute. Blood pressure 153/69 mmHg and oxygen saturation 97% on room air. Head is atraumatic. Neck is supple and without JVD or thyroid enlargement. Heart sounds are regular and lungs clear to auscultation. Abdomen soft and nontender. There is a large amount of ascites which is unchanged. Extremities have no cyanosis or clubbing. Lower extremities have 1+ edema with chronic stasis changes. Left foot is wrapped in dressing. Neurologically she is awake, alert and oriented times three. Today's labs show WBC count 6.2, hemoglobin 10.6 and hematocrit 34.6. Sodium 139, potassium 3.9, CO2 29, BUN 29 and creatinine 4.39. PROBLEMS: 1. End-stage renal disease. The patient was dialyzed yesterday and next dialysis will be scheduled for tomorrow which is her regular day. There is no emergent need for dialysis today. 2. Hypertension. Blood pressure has been reasonably well-controlled on current antihypertensive medications and no changes are being made today. 3. Recurrent ascites with cirrhosis of liver. The patient did have a paracentesis done on Tuesday and more than 6 liters fluid was removed. She is likely to require another paracentesis either later this week or early next week. At present there is no emergent need for paracentesis right now. 4. Anemia. So far her anemia has been stable and we will continue to monitor and manage with Aranesp during dialysis on weekly basis. 5. Sepsis. The patient had positive blood cultures and remains on antibiotics. She is afebrile and repeat blood cultures have been negative so far. She is being followed by Dr. Fontanez.
[2019-02-06] MEDS: oxyCODONE 5MG TAB PO PRN (15:48)
[2019-02-06 16:00] VITALS: BP 141/65
[2019-02-06] MEDS: **VANCO AFTER HD** MISC XX SCH (16:00)
[2019-02-06] MEDS: **NOTE PATIENT COMMENT** MISC XX SCH (18:00)
[2019-02-06 20:00] VITALS: BP 158/58
[2019-02-06] MEDS: LOMOTIL 2.5MG/0.025MG TABLET PO SCH (21:21)
[2019-02-06] MEDS: SIMVASTATIN 20 MG TAB PO SCH (21:21)
[2019-02-06] MEDS: rOPINIRole 2MG TAB PO SCH (21:21)
[2019-02-07] MEDS: ONDANSETRON 4MG/2ML VIAL (J2405) IV PRN (03:57)
[2019-02-07 04:45] VITALS: BP 145/70
[2019-02-07] MEDS: HEPARIN SOD (PORCINE) 5000 UNITS/ML VIAL SQ SCH ×4 (05:23→22:00)
[2019-02-07] MEDS: LEVOTHYROXINE 125MCG TABLET (0.125MG) PO SCH (05:23)
[2019-02-07 05:45] LABS: BASO # 0.1 10^3/uL (0.0-0.2); BASO % 1.3 % (0.0-1.0); EOS # 0.6 10^3/uL (0.0-0.50); EOS % 6.1 % (0.0-3.0); HEMATOCRIT 42.2 % (36.0-47.0); HEMOGLOBIN 12.6 g/dl (12.0-15.5); LYMPH # 1.5 10^3/uL (1.5-4.5); LYMPH % 15.7 % (24.0-44.0); MEAN CORPUSCULAR HGB CONC 29.9 g/dl (32.0-36.5); MEAN CORPUSCULAR VOLUME 97.2 fl (80.0-96.0); MONO # 1.2 10^3/uL (0.0-0.8); MONO % 13.2 % (0.0-5.0); NEUTROPHILS # 5.6 10^3/uL (1.8-7.7); NEUTROPHILS % 59.5 % (36.0-66.0); RED BLOOD COUNT 4.34 10^6/uL (4.00-5.40); WHITE BLOOD COUNT 9.3 10^3/uL (4.0-10.0)
[2019-02-07 05:47] LABS: PLATELET COUNT, AUTOMATED 97 10^3/uL (150-450)
[2019-02-07 06:13] LABS: C REACTIVE PROTEIN QUANTITATIV 6.65 MG/DL (0.00-0.30); CALCIUM LEVEL 7.8 MG/DL (8.8-10.2); CREATININE FOR GFR 5.73 MG/DL (0.55-1.30); GLOMERULAR FILTRATION RATE 7.8 (>39); MAGNESIUM LEVEL 2.1 MG/DL (1.8-2.4); VANCOMYCIN RANDOM 23.5 UG/ML
[2019-02-07] MEDS: oxyCODONE 5MG TAB PO PRN ×2 (06:46→15:48)
--- NOTE | 2019-02-07 07:27 | PHACANCOPD ---
PHARMACY VANCOMYCIN DOSING Pt Demographics Demographics Patient Age:68 , Weight:74.300 , Gender: female Adjusted Body Weight Date: 02/03/19, Adjusted Body Weight: Kg Events Past 24 Hours Events Past 24 Hours: NO: Dialysis, Diuretic Therapy, Change in CrCl, Fever, Elevation in WBC, Pending Diagnostics, Pending Procedures, Other Vancomycin Vancomycin indication: SEPSIS H/O MRSA Vancomycin Target Ranges: 15-20 mcg/ml Vancomycin Load Y/N: Yes Load Dose Date Time Vancomycin Load Dose: 1500MG Date: 02/03/19 Time:1300 Vancomycin Dose Date: 02/03/19. Current Vancomycin Dose: [750MG IV HD] Intermittent Dosing?: Yes Labs Micro Microbiology 02/03/19 Blood Culture - Preliminary, Resulted No Growth after 72 hours. All specime... 02/02/19 Blood Culture - Final, Complete Strep Dysgalactiae Sp Equisim 02/04/19 Acid Fast Stain, Received Pending 02/04/19 Mycobacterial Culture, Received Pending 02/04/19 Fungal Smear, Received Pending 02/04/19 Fungal Culture, Received Pending 02/04/19 Gram Stain - Final, Complete 02/04/19 Body Fluid Culture - Final, Complete Creatinine Clearance Date:02/03/19. Est Creatinine Clearance: [~10ml/min]. Pending Labs Random vancomycin level scheduled 02/05/19 with morning labs, prior to HD session Assessment and Plan Maintaining Current Dose?: Yes Reason for dose change: No Dose Change Pharmacist Note Pharmacist Note Date: 02/07/19. Pharmacist note:PT vancomycin level came back this am at 23.5mcg/ml. We will continue 750mg iv after HD. Another level is scheduled for 02/09/19 am. We will continue to monitor and adjust the dose as needed. Date: 02/05/19. Pharmacist note: PT vancomycin level came back this am at 19.1mcg/ml. We will continue 750mg after HD. Another level is scheduled for 02/07/19 am. We will continue to monitor and adjust dose as needed. Date: 02/03/19. Pharmacist note: Day #1 empiric vancomycin therapy initiated with a 1500mg loading dose given today at 1300, followed by 750mg given post-HD starting after the patient's dialysis session on 02/05/19 (based on previous vanco regimen) - aiming for a goal level of 15-20 mcg/ml. Preliminary blood cultures this admission are growing gram positive cocci in chains. WBC was elevated on admit and the patient was febrile. The patient does have a PMH of MRSA and vanco use here at [facility] in August 2018. Normal dialysis schedule is Tuesday, Tuesday, Tuesday. A random level has been scheduled to be drawn with morning labs on Tuesday02/05/19, prior to HD. We will continue to monitor and make dose adjustments if needed. MOHSEN PORTER [facility] Feb 07, 2019 07:27
[2019-02-07 08:00] VITALS: BP 155/71
[2019-02-07] MEDS: HumaLOG INSULIN (NovoLOG) PER UNIT SC SCH ×4 (08:31→21:00)
[2019-02-07] MEDS: LEVEMIR (INSULIN DETEMIR) 1 UNITS/0.01ML SC SCH (08:31)
[2019-02-07] MEDS: LACTOBACILLUS ACIDOPHILUS CAP (BACID) PO SCH ×3 (08:32→23:05)
[2019-02-07] MEDS: CALCIUM CARBONATE 500 MG CHEW U/D PO SCH ×3 (08:32→18:36)
[2019-02-07] MEDS: LOMOTIL 2.5MG/0.025MG TABLET PO SCH ×2 (08:32→23:06)
[2019-02-07] MEDS: **hydrALAZINE HCL** 25 MG TAB PO SCH ×3 (08:32→23:08)
[2019-02-07] MEDS: METOPROLOL SUCC (TopROL XL) 50MG **XL** TAB PO SCH ×2 (08:32→23:08)
[2019-02-07] MEDS: CLOPIDOGREL 75 MG TAB PO SCH (08:33)
[2019-02-07] MEDS: PANTOPRAZOLE 40MG TAB (PROTONIX) PO SCH (08:33)
[2019-02-07] MEDS: EUCERIN 120GM CREAM TOP SCH ×2 (08:56→23:09)
--- NOTE | 2019-02-07 09:59 | IPN ---
DATE: 02/06/2019 Dalila is feeling great. She is sitting at the bedside. She is anxious to go home tomorrow. She complains of loose stools but no nausea or vomiting. She states she has had chronic loose stools for months and takes Imodium liquid as well as tablets with no improvement. She has had a colonoscopy with no answers. She has had stool for C diff that have been negative in the past as well as this admission. She is scheduled for dialysis tomorrow but would like to go home before dialysis if possible. Temperature is 98.4, pulse 65, respirations 18, blood pressure 158/58, O2 sat 97% on room air. Heart: Normal S1-S2 with a systolic ejection murmur 2/6. Lungs are clear. No wheezes or rhonchi. Abdomen: Obese, soft, nontender with a ascites positive fluid wave. Extremities: +1 edema. There is an ulcer on the left foot 5 x 4 cm clean with granulation tissue. No surrounding erythema. Both feet are slightly erythematous mid calf. Thoracic spine was nontender and no muscle tenderness along paraspinal muscles. LABORATORY DATA: White count 6.2, hemoglobin 10.6, hematocrit 34.6, platelets 82, 55% neutrophils, 18% lymphocytes, 15% monocytes, 7% eosinophils. ESR 41. Sodium 139, potassium 3.9, chloride 103, bicarb 29, BUN 29, creatinine 4.39, glucose 155, calcium 7.3, magnesium 1.9, CRP 6.19 down from 13.4, blood cultures from 02/03 is negative blood culture from 02/02 had strep dysgalactiae. Ascites fluid was negative. IMPRESSION: 1. Sepsis with positive blood culture with strep dysgalactiae most likely from skin and soft tissue infection, probably the left leg with transient bacteremia doing much better. She has no complaints today. She is on IV vancomycin. The patient will need 10 days of antibiotic. She would require one more dose of vancomycin tomorrow after dialysis and a last dose on Tuesday. 2. Diarrhea. Negative C diff previous negative colonoscopy we will start her on Imodium twice a day and increase as needed to four times a day. 3. Liver cirrhosis with ascites without evidence of infection. PLAN: From an infectious disease standpoint the patient could be discharged home with two more doses of IV vancomycin to be given after hemodialysis on and Tuesday.
--- NOTE | 2019-02-07 15:13 | IPN ---
DATE OF VISIT: 02/07/2019 Mrs. Hernandez is seen this morning. She is feeling about the same. She has no fever, chills, nausea or vomiting. Her abdominal distension due to recurrent ascites is essentially unchanged. PHYSICAL EXAMINATION: Temperature 97.6 degrees Fahrenheit, heart rate 70 per minute and respiratory rate 20 per minute. Blood pressure 155/70 mmHg and oxygen saturation 98% on room air. Head is atraumatic. Neck is supple and without jugular venous distention (JVD) or thyroid enlargement. She has no oral thrush or ulcers. Heart sounds are regular and lungs clear to auscultation. Abdomen distended with large amount of ascites and bowel sounds are normal. Extremities without any cyanosis or clubbing. Lower extremity edema is at least 1+ with chronic stasis changes and left foot is wrapped in dressing. Neurologically she is at her baseline mentation. Today's labs show a WBC count 9.3, hemoglobin 12.6 and hematocrit 42.2. Sodium 138, potassium 4.0, CO2 28, BUN 43 and creatinine 5.73. PROBLEMS: 1. End-stage renal disease. The patient is going to be dialyzed late this morning or early afternoon. She has been very well dialyzed with normal electrolytes. 2. Congestive heart failure/hypervolemia. Overall her volume status has been stable and we will try to remove about 2 liters of fluid as tolerated. 3. Cirrhosis of liver with recurrent ascites. The patient did have a paracentesis done on Tuesday and is likely to require a paracentesis again probably next week. No urgent intervention is needed. 4. Anemia. Her anemia seems to be stable and no intervention is needed at this point. 5. Bacteremia, most likely related to her foot infection. She has been afebrile and remains on antibiotics per infectious disease consultation.
[2019-02-07 15:25] VITALS: BP 148/67
[2019-02-07] MEDS: **VANCO AFTER HD** MISC XX SCH (16:00)
[2019-02-07] MEDS: VANCOMYCIN HCL 750 MG, VIAL MATE ADAPTER 1 EACH in D5W 250 ML IV SCH (16:53)
--- NOTE | 2019-02-07 17:21 | IPNPDOC ---
Text Note Date of Service The patient was seen on 02/07/19. NOTE Subjective: Patient is a 68-year-old female who presents to the hospital with altered mental status and fever. Patient was found to have bacteremia with a streptococcal species. Due to the patient's history of MRSA bacteremia in July 2018, infectious disease was consulted. Today, patient is feeling better and is asking about when she revealed to be discharged. She has been ea ting and drinking without difficulty. The back and shoulder pain she had been experiencing earlier in the week has improved. Patient is going to the bathroom without difficulty. Patient says her foot is still sore from the wound however, it is better than it has been. Review of systems General: Patient denies fevers HEENT: Patient denies headaches Cardiovascular: Patient denies chest pain Respiratory: Patient denies shortness of breath, cough GI: Patient denies abdominal pain, nausea, vomiting, diarrhea : Patient denies pain or difficulty with urination Neurological: Patient denies numbness or tingling in extremities Extremities: Pain in left foot as described above. Objective: Vitals: (see below) General: No acute distress, laying comfortably in bed. HEENT: Normocephalic, atraumatic, moist mucous membranes. Neck: No JVD or lymphadenopathy Cardiac: RRR, No murmurs Pulm: Clear to auscultation b/l. No wheezing, rhonchi Abd: NT/ND + BS Ext: The wound on the plantar surface of the left foot shows granulation tissue around the outside of the wound. The surrounding area is nonerythematous. Labs (see below) Images: No new imaging is been performed. Assessment/Plan 1. Altered mental status secondary to sepsis. Patient's blood culture came back with a positive streptococcal species. Infectious disease recommends 2 more doses of vancomycin, one on and one on Tuesday after dialysis. This is due to the MRSA history. We appreciate 's help in caring for this patien t. 2. Cirrhosis with ascites status post paracentesis. 6.075 L of fluid was removed. Does not appear that patient has spontaneous bacterial peritonitis. We will continue to monitor. 3. End-stage renal disease on dialysis. Dialysis per nephrology. We appreciate nephrology's help in caring for this patient. 4. Hypothyroidism. We will continue her home medication. 5. Type 2 diabetes. We will continue sliding scale coverage as well as basal insulin coverage. 6. Hypertension. Continue home medication. 7. Coronary artery disease. Plavix can be restarted since paracentesis is complete. Continue metoprolol, hydralazine, Zocor, and statin. 8. Restless leg syndrome. Continue current medication. 9. Diarrhea. C. difficile was negative. Patient did not complain of this today. We will continue to monitor. DVT prophy: Heparin 5000 units 3 times a day has been ordered. Patient has been refusing injections. Dispo: Pending IV vancomycin being set up for her last 2 doses on , 02/08/2019 and 02/10/2019. VS,Fishbone, I+O VS, Fishbone, I+O Laboratory Tests 02/07/19 05:27 Red Blood Count 4.34, Mean Corpuscular Volume 97.2 H, Mean Corpuscular Hemoglobin 29.0, Mean Corpuscular Hemoglobin Concent 29.9 L, Red Cell Distribution Width 17.6 H, Neutrophils (%) (Auto) 59.5, Lymphocytes (%) (Auto) 15.7 L, Monocytes (%) (Auto) 13.2 H, Eosinophils (%) (Auto) 6.1 H, Basophils (%) (Auto) 1.3 H, Neutrophils # (Auto) 5.6, Lymphocytes # (Auto) 1.5, Monocytes # (Auto) 1.2 H, Eosinophils # (Auto) 0.6 H, Basophils # (Auto) 0.1, Calcium Level 7.8 L Vital Signs Date Time Temp Pulse Resp B/P (MAP) Pulse Ox O2 Delivery O2 Flow Rate FiO2 02/07/19 16:48 18 02/07/19 15:47 148/67 02/07/19 08:32 69 02/07/19 08:00 97.6 98 02/04/19 16:15 2.0 02/02/19 13:15 Nasal Cannula I&O- Last 24 Hours up to 6 AM 02/07/19 06:00 Intake Total 720 ml Output Total 25 ml Balance 695 ml GME ATTESTATION GME ATTESTATION My faculty preceptor for this patient encounter was physically present during the encounter and was fully available. All aspects of the patient interview, examination, medical decision making process, and medical care plan development were reviewed and approved by the faculty preceptor. The faculty preceptor is aware and concurs with the plan as stated in the body of this note and will attest to such by his/her cosignature. ATTENDING NOTE I have both independently examined this patient as well as reviewed the note I have discussed in detail the findings and plan of treatment as documented in the note. I will continue to follow the patient and offer further guidance to the pa tients care as necessary during this hospital stay. TOY Floyd MD, DO Feb 07, 2019 17:21 MARIE ARBOLEDA MD Feb 07, 2019 19:18
[2019-02-07 17:45] VITALS: BP 152/65
[2019-02-07] MEDS: **NOTE PATIENT COMMENT** MISC XX SCH (18:00)
[2019-02-07] MEDS: ACETAMINOPHEN 500 MG TAB PO PRN (18:36)
[2019-02-07 22:00] VITALS: BP 133/67
[2019-02-07] MEDS: rOPINIRole 2MG TAB PO SCH (23:05)
[2019-02-07] MEDS: SIMVASTATIN 20 MG TAB PO SCH (23:05)
[2019-02-08 05:42] LABS: BASO # 0.1 10^3/uL (0.0-0.2); BASO % 0.8 % (0.0-1.0); EOS # 0.5 10^3/uL (0.0-0.50); EOS % 6.1 % (0.0-3.0); HEMATOCRIT 36.5 % (36.0-47.0); HEMOGLOBIN 11.1 g/dl (12.0-15.5); LYMPH # 1.3 10^3/uL (1.5-4.5); LYMPH % 17.3 % (24.0-44.0); MEAN CORPUSCULAR HEMOGLOBIN 29.2 pg (27.0-33.0); MEAN CORPUSCULAR HGB CONC 30.4 g/dl (32.0-36.5); MEAN CORPUSCULAR VOLUME 96.1 fl (80.0-96.0); MONO % 13.5 % (0.0-5.0); NEUTROPHILS # 4.3 10^3/uL (1.8-7.7); PLATELET COUNT, AUTOMATED 104 10^3/uL (150-450); WHITE BLOOD COUNT 7.3 10^3/uL (4.0-10.0)
[2019-02-08] MEDS: LEVOTHYROXINE 125MCG TABLET (0.125MG) PO SCH (05:48)
[2019-02-08] MEDS: ACETAMINOPHEN 500 MG TAB PO PRN (05:49)
[2019-02-08 06:00] VITALS: BP 148/60
[2019-02-08 06:11] LABS: C REACTIVE PROTEIN QUANTITATIV 5.62 MG/DL (0.00-0.30); CALCIUM LEVEL 8.3 MG/DL (8.8-10.2); CREATININE FOR GFR 4.1 MG/DL (0.55-1.30); GLOMERULAR FILTRATION RATE 11.5 (>39); MAGNESIUM LEVEL 2.1 MG/DL (1.8-2.4); POTASSIUM SERUM 3.9 MEQ/L (3.5-5.1)
[2019-02-08 08:15] VITALS: BP 137/62
[2019-02-08] MEDS: METOPROLOL SUCC (TopROL XL) 50MG **XL** TAB PO SCH (08:15)
[2019-02-08] MEDS: LACTOBACILLUS ACIDOPHILUS CAP (BACID) PO SCH (08:15)
[2019-02-08] MEDS: CLOPIDOGREL 75 MG TAB PO SCH (08:15)
[2019-02-08] MEDS: LOMOTIL 2.5MG/0.025MG TABLET PO SCH (08:15)
[2019-02-08] MEDS: PANTOPRAZOLE 40MG TAB (PROTONIX) PO SCH (08:15)
[2019-02-08] MEDS: **hydrALAZINE HCL** 25 MG TAB PO SCH (08:15)
[2019-02-08] MEDS: CALCIUM CARBONATE 500 MG CHEW U/D PO SCH (08:15)
[2019-02-08] MEDS: LEVEMIR (INSULIN DETEMIR) 1 UNITS/0.01ML SC SCH (08:16)
[2019-02-08] MEDS: HumaLOG INSULIN (NovoLOG) PER UNIT SC SCH ×2 (08:16→13:29)
[2019-02-08] MEDS: EUCERIN 120GM CREAM TOP SCH (08:16)
[2019-02-08] MEDS: oxyCODONE 5MG TAB PO PRN (11:50)
--- NOTE | 2019-02-08 12:11 | IPN ---
DATE OF VISIT: 02/08/2019 Mrs. Hernandez is seen this morning on her bedside. She is sitting at the edge of bed and feels well. She wants to go home today. She denies any nausea, vomiting, dyspnea or chest pain. Her abdominal distension related to recurrent ascites is essentially unchanged. On physical exam, temperature 97 degrees Fahrenheit, heart rate 70 per minute and respiratory rate 18 per minute. Blood pressure 137/62 mmHg and oxygen saturation 96% on room air. Head is atraumatic. Neck is supple and without jugular venous distention (JVD) or thyroid enlargement. Heart sounds are regular and lungs clear to auscultation. Abdomen soft and distended with ascites. Bowel sounds are present. Extremities have chronic stasis changes in both lower extremities and no cyanosis or clubbing. Left foot is wrapped in dressing. Neurologically, she is at her baseline mentation. Today's labs show WBC count 7.3, hemoglobin 11.1 and hematocrit 36.5. Sodium 138, potassium 3.9, CO2 29, BUN 26 and creatinine 4.10. PROBLEMS: 1. End-stage renal disease. Patient was dialyzed yesterday and next dialysis is due for tomorrow, which is her regular day. There is no emergent indication for dialysis today. 2. Sepsis with gram-positive bacteremia. Patient has been doing well and remains on intravenous vancomycin after each dialysis. She can receive her last vancomycin after dialysis tomorrow. 3. Congestive heart failure. Her volume status is reasonably well-compensated and we will continue our efforts to keep it under control as long as she can follow her fluid restriction. 4. Cirrhosis of liver with recurrent ascites. Patient had paracentesis done on Tuesday and is likely to require another paracentesis again next week. This can be done as an outpatient. DISPOSITION: From renal standpoint, patient can be discharged to home today and return to outpatient dialysis clinic tomorrow. She can also receive her vancomycin in outpatient dialysis tomorrow.
--- NOTE | 2019-02-08 15:17 | DS.PDOC ---
Discharge Summary General Date of Admission Feb 02, 2019 at 06:09 Date of Discharge 02/08/19 Primary Care Physician: Catracho Pineda MD Attending Physician: MARIE ARBOLEDA MD Specialist/Consultants Involve: Lana Fontanez MD Specialist/Consultants Involve Dr. Chris Baeza, Dr. Mic Grullon, Dr. Gustavo Grullon Discharge Summary PROCEDURES PERFORMED DURING STAY: None. ADMITTING/DISCHARGE DIAGNOSES: 1. Altered mental status secondary to sepsis 2. Cirrhosis with ascites status post paracentesis 3. End-stage renal disease on dialysis 4. Hypothyroidism 5. Type 2 diabetes 6. Hypertension 7. Coronary artery disease. 8. Restless leg syndrome. 9. Diarrhea COMPLICATIONS/CHIEF COMPLAINT: Altered mental status and fever HISTORY OF PRESENT ILLNESS/HOSPITAL COURSE: Patient is a 68-year-old female who presented to the emergency room on 02/02/2019 with her family with a chief complaint of confusion and a fever. Patient was reported to have nausea vomiting and diarrhea at home. Patient has a chronic wound on the plantar surface of her left foot. Patient had been seeing Dr. Baeza in the outpatient office for this injury. Patient began to act more confused 1-2 days prior to coming into the hospital. Overnight on 02/01/2019, patient became more confused and lethargic and was brought into the emergency room. In the emergency room, patient had a fever and was started on broad-spectrum antibiotics. Patient has a history of MRSA bacteremia and infection in the foot wound back in July 2018. At that time, patient had a listed allergy in medical record to vancomycin. Patient was started on Zyvox and Zosyn. Upon further investigation, patient's allergy to vancomycin was found to be incorrect and was removed from the medical record. Patient was started on vancomycin. Dr. Baeza came and saw the patient and did not believe that the wound was source of infection. Blood cultures grew a streptococcal species. Patient received hemodialysis 3 times during her hospital stay on her usual schedule. Infectious disease was consulted for management of antibiotics. As time went by and treatment was continued, patient improved. Patient was working with physical therapy throughout the week and was cleared by physical therapy for discharge. Discharge planning was set up for the patient to receive outpatient hemodialysis on 02/09/2019 and to receive her last dose of vancomycin after hemodialysis. Dr. Fontanez and Dr. Grullon when agreement with this plan and patient was discharged home on 02/08/2019. DISCHARGE MEDICATIONS: Please see below. ALLERGIES: Please see below. PHYSICAL EXAMINATION ON DISCHARGE: Vitals: (see below) General: No acute distress, laying comfortably in bed. HEENT: Moist mucous membranes. Neck: No JVD or lymphadenopathy Cardiac: RRR, No murmurs Pulm: Clear to auscultation b/l. No wheezing, rhonchi Abd: NT/ND + BS Ext: 1+ pitting edema in left lower extremity. Trace pitting edema in right lower extremity. Patient's wound was covered and non-soiled dressing. Last wound check on 02/07/2019 showed granulation tissue in the wound and non-erythematous borders of the wound. LABORATORY DATA: Please see below. IMAGING: A x-ray of the forearm on the right chao 02/02/2019 showed no acute fracture or dislocation. A chest x-ray performed on 02/02/2019 showed platelike atelectasis in the left base. A right hand x-ray performed on 02/02/2019 showed arthritic changes without acute fracture or dislocation. A left foot x-ray performed on 02/02/2019 showed severe midfoot neuropathic atrophy. Some plantar soft tissue swelling and irregularity seen. No soft tissue gas. No acute bony erosive changes seen to suggest osteomyelitis. A CT of the left foot without contrast performed on 02/02/2019 showed advanced neuropathic foot atrophy. A superficial ulcer at the volar skin at the midfoot. A rib series and AP chest x-ray performed on 02/03/2019 showed no fracture or other rib abnormality and diffuse bilateral mild interstitial coarsening that appears increased from the prior study, compatible with vascular congestion and interstitial infiltrates. A thoracic spine MRI without contrast performed on 02/03/2019 showed a very limited examination demonstrating small disc protrusion at the T1-2 levels without spinal cord compression and a disc bulge at the T11-12 level without spinal cord compression. PROGNOSIS: Fair ACTIVITY: As tolerated. DIET: Consistent carbohydrate DISCHARGE PLAN/DISPOSITION: Discharge home DISCHARGE INSTRUCTIONS: 1. Follow-up with Dr. Grullon for dialysis and final dose of vancomycin tomorrow, 02/09/2019. 2. Follow-up with primary care provider within 7-10 days of hospital discharge. 3. Follow-up with Dr. Baeza for continued wound care of left foot wound. DISCHARGE CONDITION: Stable. TIME SPENT ON DISCHARGE: Greater than 30 minutes. Vital Signs/I&Os Vital Signs Date Time Temp Pulse Resp B/P (MAP) Pulse Ox O2 Delivery O2 Flow Rate FiO2 02/08/19 12:20 18 02/08/19 08:15 67 137/62 02/08/19 06:00 97.0 96 02/04/19 16:15 2.0 02/02/19 13:15 Nasal Cannula I&O- Last 24 Hours up to 6 AM 02/08/19 06:00 Intake Total 930 ml Output Total 2000 ml Balance -1070 ml Laboratory Data Labs 24H Laboratory Tests 2 02/07/19 15:28: Bedside Glucose (Misc Panel) 87 02/07/19 17:52: Bedside Glucose (Misc Panel) 216H 02/07/19 20:38: Bedside Glucose (Misc Panel) 210H 02/08/19 05:20: Immature Granulocyte % (Auto) 3.3H, White Blood Count 7.3, Red Blood Count 3.80L, Hemoglobin 11.1L, Hematocrit 36.5, Mean Corpuscular Volume 96.1H, Mean Corpuscular Hemoglobin 29.2, Mean Corpuscular Hemoglobin Concent 30.4L, Red Cell Distribution Width 18.1H, Platelet Count 104L, Neutrophils (%) (Auto) 59.0, Lymphocytes (%) (Auto) 17.3L, Monocytes (%) (Auto) 13.5H, Eosinophils (%) (Auto) 6.1H, Basophils (%) (Auto) 0.8, Neutrophils # (Auto) 4.3, Lymphocytes # (Auto) 1.3L, Monocytes # (Auto) 1.0H, Eosinophils # (Auto) 0.5, Basophils # (Auto) 0.1, Nucleated Red Blood Cells % (auto) 0.8H, Anion Gap 7L, Glomerular Filtration Rate 11.5L, Blood Urea Nitrogen 26H, Creatinine 4.10H, Sodium Level 138, Potassium Level 3.9, Chloride Level 102, Carbon Dioxide Level 29, Calcium Level 8.3L, Magnesium Level 2.1, C-Reactive Protein, Quantitative 5.62H 02/08/19 11:35: Bedside Glucose (Misc Panel) 205H CBC/BMP Laboratory Tests 02/08/19 05:20 Red Blood Count 3.80 L, Mean Corpuscular Volume 96.1 H, Mean Corpuscular Hemoglobin 29.2, Mean Corpuscular Hemoglobin Concent 30.4 L, Red Cell Distribution Width 18.1 H, Neutrophils (%) (Auto) 59.0, Lymphocytes (%) (Auto) 17.3 L, Monocytes (%) (Auto) 13.5 H, Eosinophils (%) (Auto) 6.1 H, Basophils (%) (Auto) 0.8, Neutrophils # (Auto) 4.3, Lymphocytes # (Auto) 1.3 L, Monocytes # (Auto) 1.0 H, Eosinophils # (Auto) 0.5, Basophils # (Auto) 0.1, Calcium Level 8.3 L FSBS Laboratory Tests Test 02/07/19 15:28 02/07/19 17:52 02/07/19 20:38 02/08/19 11:35 Range/Units Bedside Glucose (Misc Panel) 87 216 210 205 83-110 MG/DL Microbiology Microbiology 02/03/19 Blood Culture - Final, Complete NO GROWTH AFTER 5 DAYS 02/02/19 Blood Culture - Final, Complete Strep Dysgalactiae Sp Equisim 02/04/19 Acid Fast Stain, Received Pending 02/04/19 Mycobacterial Culture, Received Pending 02/04/19 Fungal Smear, Received Pending 02/04/19 Fungal Culture, Received Pending 02/04/19 Gram Stain - Final, Complete 02/04/19 Body Fluid Culture - Final, Complete Discharge Medications Scheduled Calcium Acetate (Calcium Acetate) 667 Mg Tab, 667 MG PO WM, (Reported) Calcium Carbonate (Tums) 500 Mg Chw, 500 MG PO WM, (Reported) Clopidogrel Bisulfate (Plavix) 75 Mg Tab, 75 MG PO DAILY, (Reported) Duloxetine Hcl (Duloxetine HCl) 30 Mg Cap, 30 MG PO DAILY, (Reported) Gabapentin (Gabapentin) 100 Mg Cap, 300 MG PO BID, (Reported) Hydralazine HCl (Hydralazine HCl) 25 Mg Tab, 25 MG PO TID, (Reported) Insulin Detemir (Levemir) 1 Units/0.01 Ml Susp, 20 UNITS SC DAILY, (Reported) Insulin Human Lispro (Humalog) 100 Unit/Ml Inj, 1 DOSE SC AC, (Reported) PER SLIDING SCALE Lactobacillus Acidophilus (Bacid) 1 Tab Tab, 1 TAB PO BID, (Reported) Levothyroxine Sodium (Synthroid) 125 Mcg Tab, 125 MCG PO DAILY, (Reported) Losartan Potassium (Losartan Potassium) 50 Mg Tab, 50 MG PO DAILY, (Reported) Metoprolol Succinate (Metoprolol Succinate ER) 50 Mg Tab, 50 MG PO BID, (Reported) Pantoprazole Sodium (Pantoprazole Sodium) 40 Mg Tab, 40 MG PO DAILY, (Reported) Ropinirole Hydrochloride (Ropinirole HCl) 2 Mg Tab, 4 MG PO BID, (Reported) Silver Sulfadiazine (Ssd) 1 % Cre, 1 DOSE TOP DAILY, (Reported) WITH DRESSING CHANGES ON FOOT Simvastatin (Simvastatin) 20 Mg Tab, 20 MG PO QHS, (Reported) Trazodone HCl (Trazodone HCl) 100 Mg Tab, 100 MG PO QHS, (Reported) Scheduled PRN (Lidocaine) 5 % Pad, 1 PATCH TOP DAILY PRN for PAIN, (Reported) APPLY TO BACK Alprazolam (Alprazolam) 0.25 Mg Tab, 0.25 MG PO BID PRN for ANXIETY, (Reported) Nystatin (Nystatin Oint) 30 Gm Oint, 1 DOSE TOP BID PRN for REDNESS/IRRITATION, (Reported) APPLY TO ABDOMINAL FOLDS Oxycodone/Acetaminophen (Percocet 5-325 mg) 1 Tab Tab, 1 TAB PO DAILY PRN for PAIN, (Reported) Patiromer Sorbitex Calcium (Veltassa) 8.4 Gm Pow, 8.4 GM PO ASDIRECTED PRN for MISSING DIALYSIS, (Reported) Allergies Coded Allergies: Pregabalin (Verified Adverse Reaction, Intermediate, CONFUSION, 03/16/17) GME ATTESTATION GME ATTESTATION My faculty preceptor for this patient encounter was physically present during the encounter and was fully available. All aspects of the patient interview, examination, medical decision making process, and medical care plan development were reviewed and approved by the faculty preceptor. The faculty preceptor is aware and concurs with the plan as stated in the body of this note and will attest to such by his/her cosignature. ATTENDING NOTE I have both independently examined this patient as well as reviewed the note I have discussed in detail the findings and plan of treatment as documented in the note. I will continue to follow the patient and offer further guidance to the patients care as necessary during this hospital stay. TOY Floyd MD, DO Feb 08, 2019 15:17 MARIE ARBOLEDA MD Feb 09, 2019 07:25
== END 2019-02-08 14:12 | disposition home health service (06) | DRG 871 ==
LOC: M ED 03:18 → M ED INP 06:09 → M PCU 13:07 → M MSPAV 02-07 17:43
PROVIDERS: ADMIT Hospitalist; ATTEND Hospitalist
PROC: 5A1D70Z Performance of Urinary Filtration, Intermittent, Less than 6 Hours Per Day (ICD-10-PCS; 2019-02-02)
PROC: 0W9G3ZZ Drainage of Peritoneal Cavity, Percutaneous Approach (ICD-10-PCS; principal; 2019-02-04)
DX: A40.8 Other streptococcal sepsis (principal); G93.41 Metabolic encephalopathy; N18.6 End stage renal disease; N25.81 Secondary hyperparathyroidism of renal origin; R18.8 Other ascites; I13.11 Hypertensive heart and chronic kidney disease without heart failure, with stage 5 chronic kidney disease, or end stage renal disease; I50.32 Chronic diastolic (congestive) heart failure; E11.610 Type 2 diabetes mellitus with diabetic neuropathic arthropathy; E11.621 Type 2 diabetes mellitus with foot ulcer; E11.40 Type 2 diabetes mellitus with diabetic neuropathy, unspecified; K74.60 Unspecified cirrhosis of liver; E03.9 Hypothyroidism, unspecified; I25.10 Atherosclerotic heart disease of native coronary artery without angina pectoris; G25.81 Restless legs syndrome; R19.7 Diarrhea, unspecified; Z79.899 Other long term (current) drug therapy; G47.33 Obstructive sleep apnea (adult) (pediatric); F32.9 Major depressive disorder, single episode, unspecified; Z88.1 Allergy status to other antibiotic agents; Z88.8 Allergy status to other drugs, medicaments and biological substances; Z79.4 Long term (current) use of insulin; Z91.19 Patient's noncompliance with other medical treatment and regimen; D63.1 Anemia in chronic kidney disease; Z95.2 Presence of prosthetic heart valve; E87.70 Fluid overload, unspecified

== ENCOUNTER → 2019-02-22 | Outpatient (CLI) | payer MEDICARE ==
[~2019-02-22] MED LIST changes: -/ESCI20TA PO; -/PANT40TA PO; -/ROPI1TA PO; -ASPI1TAB PO; +ASPI81TA26 PO; +BACITAB PO; -CALC1TAB97 PO; -DULO30CA PO; +DULO30CA9 PO; -EUCE12CR TOP; +HYDR-3715 PO; +HYDR1CRE95 TOP; +IBUP-1022 PO; +LEXA1TAB2 PO; +LINE1TAB PO; -LINE60TAB PO; +METO-1 PO; -MORP1SOL PO; +MORP20SO16 PO; -NORC1TAB4 PO; +NORC1TAB7 PO; -NORCOTAB PO; +NYST100029 TOP; -NYST10CR TOP; +OYST500T78 PO; +PROT1TAB2 PO; +REQU1TAB16 PO; -SENN1TAB2 PO; +SENN1TAB40 PO; +SENN1TAB41 PO; -SENN8.6T7 PO; +SYNT125T PO; -TOPR25TA PO; +TOPR50TA PO; -TOPR50TA23 PO; +VELT1POW PO
--- NOTE | 2019-02-22 15:57 | REP ---
Ultrasound-guided paracentesis The procedure was performed under the direct supervision of Dr. Martinez. The risks and benefits of the procedure were explained to the patient and informed consent was obtained. The largest pocket of fluid was localized in the left lower quadrant using ultrasound guidance. The skin was prepped and draped in a sterile fashion. 1% lidocaine was used as a local anesthetic. An 8-Kyr[place]z multi side-hole catheter was inserted using trocar technique. 6100 ml of yellow fluid was withdrawn and discarded. The patient tolerated the procedure well and there were no immediate complications. After the appropriate amount of monitored convalescence the patient was discharged from the department. Reviewed by ANTONIO Curiel 02/22/2019 03:46 P Electronically Signed by Vel Martinez MD 02/22/2019 03:48 P
== END ==
LOC: M RADPRO 08:20
PROVIDERS: ATTEND Internal Medicine Nephrology
DX: E87.70 Fluid overload, unspecified (principal); R18.8 Other ascites
CPT/HCPCS: 49083; 96365; P9047

== ENCOUNTER 2019-03-06 12:02 | Emergency (ER) | payer MEDICARE ==
[~2019-03-06] VITALS: Ht 157.5 cm; Wt 81.4 kg
[~2019-03-06 12:02] MED LIST changes: -IBUP-1022 PO
[2019-03-06] MEDS ORDERED: IBUP-1022 PO (13:25)
[2019-03-06 14:01] LABS: BASO % 0.4 % (0.0-1.0); EOS # 0.5 10^3/uL (0.0-0.50); EOS % 5.3 % (0.0-3.0); HEMATOCRIT 34.9 % (36.0-47.0); HEMOGLOBIN 10.6 g/dl (12.0-15.5); LYMPH # 1.1 10^3/uL (1.5-4.5); LYMPH % 11.6 % (24.0-44.0); MEAN CORPUSCULAR HGB CONC 30.4 g/dl (32.0-36.5); MEAN CORPUSCULAR VOLUME 95.4 fl (80.0-96.0); MONO # 1.1 10^3/uL (0.0-0.8); MONO % 11.8 % (0.0-5.0); NEUTROPHILS # 6.4 10^3/uL (1.8-7.7); NEUTROPHILS % 70.1 % (36.0-66.0); PLATELET COUNT, AUTOMATED 167 10^3/uL (150-450); RED BLOOD COUNT 3.66 10^6/uL (4.00-5.40); WHITE BLOOD COUNT 9.2 10^3/uL (4.0-10.0)
[2019-03-06 14:12] LABS: INR 1.11; PROTHROMBIN TIME 14.5 SECONDS (12.1-14.4)
[2019-03-06 14:13] LABS: PARTIAL THROMBOPLASTIN TIME 32.5 SECONDS (25.4-37.6)
[2019-03-06 14:25] LABS: ALBUMIN 2.2 GM/DL (3.2-5.2); BILIRUBIN,DIRECT 0.2 MG/DL (0.0-0.2); BILIRUBIN,TOTAL 0.5 MG/DL (0.2-1.0); CALCIUM LEVEL 7.2 MG/DL (8.8-10.2); CREATININE FOR GFR 5.99 MG/DL (0.55-1.30); GLOMERULAR FILTRATION RATE 7.4 (>39); POTASSIUM SERUM 5.5 MEQ/L (3.5-5.1); TOTAL PROTEIN 6.9 GM/DL (6.4-8.2)
--- NOTE | 2019-03-06 14:35 | REP ---
CT study of the cervical spine without contrast: History: Injury in a fall. Technique: Helical scanning is acquired and overlapping 2 mm high resolution axial images were generated and reviewed at bone and soft tissue window settings. Coronal and sagittal multiplanar re-formations images are generated. CT findings: There is no evidence of cervical spine element fracture. No skull base fracture is seen. Cervical vertebral body heights are preserved. Alignment is normal. There is some straightening of the normal cervical lordosis. Degenerative spondylosis changes are seen with degenerative disc disease most pronounced at C5-6 and C6-7 but also present at C4-5. There is uncovertebral spurring bilaterally at C5-6 and C6-7 producing some neural foraminal encroachment. Osteoarthritis is seen at the articulation between the dens and the anterior arch of C1. Facet joints are normally aligned bilaterally at each cervical level on multiplanar re-formations images. There is no evidence of intraspinal or paraspinal hematoma. No extra vertebral abnormality is seen. There is prominent vascular calcification. Impression: Straightening . Degenerative spondylosis changes. Otherwise negative CT study of the cervical spine without contrast. No fracture seen. Electronically Signed by Vel Martinez MD 03/06/2019 02:26 P
--- NOTE | 2019-03-06 14:38 | REP ---
LEFT ELBOW SERIES: Four views. HISTORY: Injury in a fall. FINDINGS: Four views of the left elbow show accessory ossicles and spurring at the medial and lateral epicondyles. There is diffuse osteopenia. There is osteoarthritic spurring at the ulnar trochlear articulation. There is some soft tissue swelling adjacent to the olecranon process. No joint effusion is seen. IMPRESSION: Degenerative changes. No traumatic abnormality noted. Electronically Signed by Vel Martinez MD 03/06/2019 08:33 P
--- NOTE | 2019-03-06 14:38 | REP ---
Left wrist series: Four views. History: Injury in a fall. Findings: Four views of the left wrist demonstrate diffuse osteopenia. There is a surgical clip in the soft tissues adjacent to the distal radius. There is a dystrophic soft-tissue calcification at the radial aspect of the carpus at the level of the greater multangular. There is moderate first carpometacarpal joint osteoarthritis. There is no evidence of fracture or subluxation. Impression: No fracture noted. Diffuse osteopenia. Osteoarthritis. Electronically Signed by Vel Martinez MD 03/06/2019 08:33 P
[2019-03-06 14:39] LABS: CPK CREATINE PHOSPHOKINASE 125 U/L (26-192); MAGNESIUM LEVEL 2.5 MG/DL (1.8-2.4); MB/CK RELATIVE INDEX 6.48 (< OR =4); NT-PRO BNP 6645 PG/ML (<125); PHOSPHORUS LEVEL 5.9 MG/DL (2.5-4.9); TROPONIN I < 0.02 NG/ML (< 0.10)
--- NOTE | 2019-03-06 14:39 | REP ---
Left humerus: Three views. History: Injury in a fall. Findings: Three views left humerus are compared with left humerus radiographs from December 16, 2017. There is soft tissue swelling about the olecranon process as seen on the elbow radiographs. No fracture or subluxation is seen. Glenohumeral and elbow articulations are normally aligned. Impression: No fracture noted. Electronically Signed by Vel Martinez MD 03/06/2019 02:30 P
--- NOTE | 2019-03-06 15:49 | REP ---
CT of the brain without IV contrast: There is no intracranial hemorrhage. There is no edema, mass effect or midline shift. The cortical stripe is unremarkable. The ventricles are normal size and midline. The visualized paranasal sinuses and mastoid air cells are clear. The cortical stripe is unremarkable. Impression: There is no acute hemorrhage, edema, mass effect or shift. Essentially negative CT study of the brain. Electronically Signed by Aureliano Banks MD 03/06/2019 03:40 P
[2019-03-06 16:51] VITALS: BP 165/71
--- NOTE | 2019-03-06 16:55 | REP ---
CHEST, TWO VIEWS: Two views of the chest are performed and compared to prior study 09/13/2018 as well as other prior exams. There is cardiomegaly. There is chronic accentuation of interstitial markings which is stable. No new infiltrate is seen. There is mild calcification of the thoracic aorta. The mediastinal silhouette is unchanged. There are mild degenerative changes of the spine. IMPRESSION: Cardiomegaly and chronic changes without evidence of acute infiltrate. Electronically Signed by Aureliano Rivas MD 03/07/2019 03:17 P
--- NOTE | 2019-03-07 08:19 | ECGEPIP ---
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
== END 2019-03-06 17:01 | disposition home or self-care (01) ==
LOC: M ED 12:02
DX: E11.40 Type 2 diabetes mellitus with diabetic neuropathy, unspecified (principal); E11.621 Type 2 diabetes mellitus with foot ulcer; D63.1 Anemia in chronic kidney disease; E11.649 Type 2 diabetes mellitus with hypoglycemia without coma; E87.5 Hyperkalemia; R18.8 Other ascites; Z99.2 Dependence on renal dialysis; M79.602 Pain in left arm; W19.XXXA Unspecified fall, initial encounter; Y92.9 Unspecified place or not applicable; Y93.E4 Activity, ironing; Y99.9 Unspecified external cause status; I25.2 Old myocardial infarction; I50.9 Heart failure, unspecified; I25.10 Atherosclerotic heart disease of native coronary artery without angina pectoris; I10 Essential (primary) hypertension; E78.5 Hyperlipidemia, unspecified; G47.30 Sleep apnea, unspecified; K21.9 Gastro-esophageal reflux disease without esophagitis; E03.9 Hypothyroidism, unspecified; K52.9 Noninfective gastroenteritis and colitis, unspecified; K74.60 Unspecified cirrhosis of liver; G25.81 Restless legs syndrome; Z95.5 Presence of coronary angioplasty implant and graft; Z95.1 Presence of aortocoronary bypass graft; Z86.19 Personal history of other infectious and parasitic diseases; I51.7 Cardiomegaly; M47.812 Spondylosis without myelopathy or radiculopathy, cervical region; M25.722 Osteophyte, left elbow; M85.88 Other specified disorders of bone density and structure, other site; Z79.4 Long term (current) use of insulin; Z79.899 Other long term (current) drug therapy; Z88.8 Allergy status to other drugs, medicaments and biological substances
CPT/HCPCS: 36415; 70450; 71046; 72125; 73060; 73080; 73110; 80048; 80076; 82550; 82553; 83605; 83690; 83735; 83880; 84100; 84484; 85025; 85610; 85730; 87040; 93005; 93041; 99284; G0463

== ENCOUNTER → 2019-03-06 | Outpatient (CLI) | payer MEDICARE ==
--- NOTE | 2019-03-08 01:46 | ECWPNPC ---
PATIENT NAME: GUI JEAN : 1950 GENDER: FEMALE VISIT DATE: 03/06/2019 DISCHARGE DATE: 03/06/19 1204 VISIT LOCKED DATE TIME: PHYSICIAN: RICO MARIE RESOURCE: RICO MARIE REASON FOR APPOINTMENT 1. COCCYX/FOOT PAIN PT OF SW HISTORY OF PRESENT ILLNESS HISTORY OF PRESENT ILLNESS: PAIN THE PATIENT DESCRIBES THE PAIN... 68 YR OLD PATIENT HERE FOR F/U. SHE TOLD RN THAT SHE FELT HER BLOOD GLUCOSE WAS LOW AND THAT SHE FELL AT HOME THIS MORNING ONTO HER LEFT SIDE. FALL RISK SCREENING: SCREENING :NO FALLS REPORTED IN THE LAST YEAR CURRENT MEDICATIONS TAKING ONDANSETRON 4 MG TAB PRN FOR NAUSEA DAILY TAKING PROBIOTIC 1 1 CAPSULE ORALLY TWICE A DAY TAKING HUMALOG 100 UNIT/ML SOLUTION SUBCUTANEOUS SLIDING SCALE TID TAKING LEVEMIR 22 UNITS SUBCUTANEOUSLY BID TAKING NITROGLYCERIN SUBLINGUAL 1 TAB NEEDED FOR CHEST PAIN TAKING IMODIUM A-D 2 MG TABLET 1 TABLET NEEDED ORALLY FOUR TIMES A DAY TAKING ROPINIROLE HCL 1 MG TABLET 3 TABLET ORALLY BID TAKING VYTORIN 10-20 MG TABLET 1 TABLET ORALLY ONCE A DAY TAKING VITAMIN D 2000 UNIT TABLET 1 TABLET ORALLY ONCE A DAY TAKING TORSEMIDE 100 MG TABLET 1 TABLET ORALLY BID TAKING NORTRIPTYLINE HCL 10 MG CAPSULE 1 CAPSULE ORALLY ONCE A DAY TAKING SYNTHROID 88 88 MCG TABLET 1 TAB(S) ORAL DAILY, NOTES: 100MCG TAKING PROTONIX 40 MG TABLET DELAYED RELEASE 1 TABLET ORALLY ONCE A DAY TAKING GABAPENTIN 100 MG CAPSULE 3 CAPSULE ORALLY BEFORE BEDTIME, 3 TABS IN A.M. NEEDED TAKING CLOPIDOGREL BISULFATE 75 MG TABLET 1 TABLET ORALLY ONCE A DAY TAKING TRAZODONE HCL 100 MG TABLET 1 TABLET AT BEDTIME ORALLY ONCE A DAY TAKING HYDRALAZINE HCL 25 MG TABLET 1 TABLET WITH FOOD ORALLY DAILY, NOTES: TWICE DAILY TAKING TRAMADOL HCL 50 MG TABLET ORALLY BID TAKING SIMVASTATIN 20 MG TABLET ORALLY DAILY TAKING TUMS 1 TABLET TID TAKING CALCIUM ACETATE 1 ORALLY ONCE A DAY TAKING METOPROLOL SUCCINATE ER 50 MG TABLET EXTENDED RELEASE 24 HOUR 1 TABLET ORALLY BID TAKING CYMBALTA 30 MG CAPSULE DELAYED RELEASE PARTICLES 1 CAPSULE ORALLY TWICE A DAY TAKING OXYCODONE-ACETAMINOPHEN 5-325 MG TABLET 1 TABLET NEEDED ORALLY EVERY 6 HRS PRN PAIN #30 TAB SHOULD LAST 30 DAYS MDD4 TAKING TYLENOL 500 MG 1 TAB ORAL BID PRN FOR PAIN TAKING MUPIROCIN 2 % OINTMENT 1 APPLICATION TO AFFECTED AREA EXTERNALLY BID TAKING POTASSIUM CHLORIDE 10 10 MEQ TABLET 1 TAB(S) ORALLY DAILY TAKING XANAX 0.25 MG TABLET 1 TABLET ORALLY Wednesdays AND FRIDAYS BEFORE DIALYSIS TAKING LEVOTHYROXINE SODIUM 100 MCG TABLET ORALLY DAILY TAKING BACID - TABLET ORALLY DAILY NEEDED NOT-TAKING LIDOCAINE & ADHESIVE SHEET 5 % KIT EXTERNALLY , NOTES: ONE PATCH ONCE DAILY NOT-TAKING REQUIP 2 MG TABLET ORALLY BID NOT-TAKING HYDROCODONE-ACETAMINOPHEN 5-325 MG TABLET 1 TAB ORALLY EVERY 6 HRS PRN PAIN MDD=4 NOT-TAKING ONDANSETRON 1 TAB ORAL PRN Q4H NOT-TAKING EZETIMIBE 10 MG TABLET 1 TABLET ORALLY ONCE A DAY NOT-TAKING MOVANTIK 25 MG TABLET 1 TABLET IN THE MORNING ORALLY ONCE A DAY NOT-TAKING LASIX 40 MG TABLET 1 TABLET ORALLY ONCE A DAY NOT-TAKING MELATONIN ER 3 MG TABLET EXTENDED RELEASE 1 TAB(S) ORALLY ONCE A DAY NOT-TAKING BACLOFEN 10 MG TABLET 1 TABLET WITH FOOD OR MILK ORALLY TWO TIMES A DAY NOT-TAKING FUROSEMIDE 100 MG 1 TAB ORAL BID NOT-TAKING BACTRIM DS 800-160 MG TABLET 1 TABLET ORALLY TID NOT-TAKING LIDOCAINE 0.5 % GEL EXTERNALLY NOT-TAKING TOUJEO SOLOSTAR 300 UNIT/ML SOLUTION PEN-INJECTOR 85UNITS SUBCUTANEOUS MORNING AND EVENING NOT-TAKING DOXYCYCLINE HYCLATE 100 MG CAPSULE 1 CAPSULE ORALLY EVERY 12 HRS NOT-TAKING TAMIFLU 75 MG CAPSULE 1 CAPSULE ORALLY TWICE A DAY NOT-TAKING LANTUS SOLOSTAR 100 UNIT/ML SOLUTION DIRECTED SUBCUTANEOUS NOT-TAKING ASPERCREME LIDOCAINE 4 % PATCH EXTERNALLY NOT-TAKING CLINDAMYCIN HCL 150 MG CAPSULE 1 CAPSULE ORALLY EVERY 8 HRS NOT-TAKING DOXYCYCLINE 40 MG CAPSULE DELAYED RELEASE 1 CAPSULE ON AN EMPTY STOMACH IN THE MORNING ORALLY ONCE A DAY, NOTES: 100MG TAB TWICE DAILY FOR TEN DAYS NOT-TAKING PREDNISONE TAPER 10 MG TAB TAKE 6 TABS QDX 3 DAYS, THEN TAKE 4 TAB QD X 3 DAYS, THEN TAKE 2 TABS QD X 3 DAYS, THEN TAKE 1 TAB QD X 4 DAYS, THEN STOP ORALLY DAILY NOT-TAKING HYDROXYZINE HCL 25 MG TABLET 1 TABLET NEEDED ORALLY BID NOT-TAKING HUMALOG KWIKPEN 100 UNIT/ML SOLUTION DIRECTED SUBCUTANEOUS NOT-TAKING XANAX XR 0.5 MG TABLET EXTENDED RELEASE 24 HOUR 1 TABLET IN THE MORNING ORALLY ONCE A DAY NOT-TAKING SENNA LAX 8.6 MG TABLET 2 TABLETS AT BEDTIME NEEDED ORALLY ONCE A DAY DISCONTINUED DULOXETINE HCL 30 MG CAPSULE DELAYED RELEASE PARTICLES 1 CAPSULE ORALLY ONCE A DAY, NOTES: DUPLICATE DISCONTINUED TOPROL XL 50 MG TABLET EXTENDED RELEASE 24 HOUR 1 TABLET ORALLY BID, NOTES: DUPLICATE DISCONTINUED LEVEMIR 100 UNIT/ML SOLUTION SUBCUTANEOUS , NOTES: DUPLICATE DISCONTINUED MICHELLE-BID PROBIOTIC - TABLET ORALLY , NOTES: DUPLICATE MEDICATION LIST REVIEWED AND RECONCILED WITH THE PATIENT PAST MEDICAL HISTORY DM II, WITH NEUROPATHY/PAIN JUAN - USES CPAP HYPERLIPIDEMIA RLS GERD DEPRESSION HYPOTHYROIDISM CKD HTN DIALYSIS COCCYX FX 07/18/18 BACK PAIN ULCER BOTTOM OF LEFT FOOT CIRRHOSIS ALLERGIES LYRICA: CONFUSION, DEPRESSION - SIDE EFFECTS SURGICAL HISTORY HYSTERECTOMY 1970S CATARACT REMOVAL COLONOSCOPY DENTAL SURGERY, TOOTH EXTRACTION 05/2014 LEFT THIRD TOE AMPUTATION 07/2017 LEFT SECOND TOE AMPUTATION 06/2017 4 STENTS PLACED AFTER MD 01/2016 FISTULA IN LEFT WRIST 01/2016 FAMILY HISTORY FATHER: SCHIZOPHRENIA MOTHER: , ASTHMA, CERVICAL CANCER, DIABETES MELLITUS, HEART DISEASE, HYPERTENSION, HYPERTENSION, HYPOTHYROIDISM, TUBERCULOSIS, DIAGNOSED WITH HEART DISEASE, CANCER, DIABETES, HYPERTENSION SIBLINGS: BROTHER - AIDS MATERNAL GRAND MOTHER: CVA, BREAST CANCER 1 BROTHER(S) . 3DAUGHTER(S) - HEALTHY. NO KNOWN FAMILY HISTORY OF ANY UROLOGICALLY RELATED DISEASES\\/CANCERS. \\NBROTHER IS . SOCIAL HISTORY GENERAL: TOBACCO USE ARE YOU A:: NEVER SMOKER . LATEX QUESTIONNAIRE LATEX ALLERGY : HAVE YOU EVER DEVELOPED ANY TYPE OF REACTION AFTER HANDLING LATEX PRODUCTS SUCH RUBBER GLOVES, CONDOMS, DIAPHRAGMS, BALLOONS, SOCKS, OR UNDERWEAR?NO LATEX ALLERGY : HAVE YOU EVER DEVELOPED ANY TYPE OF REACTION DURING OR AFTER DENTAL APPOINTMENT, VAGINAL/RECTAL EXAMINATION, SURGICAL PROCEDURE, OR ANY OTHER EXPOSURE?NO LATEX RISK : HAVE YOU EVER HAD ANY DIFFICULTY BREATHING OR HIVES AFTER EATING OR HANDLING ANY FRUITS, OR VEGETABLES; SUCH KIWI, BANANAS, STONE FRUITS, OR CHESTNUTSNO LATEX RISK : DO YOU HAVE A PREVIOUS PERSONAL HISTORY OF MORE THAN NINE SURGERIES, SPINA BIFIDA, OR REPEATED CATHERTIZATIONS? NO LATEX RISK : ARE YOU FREQUENTLY EXPOSED TO LATEX PRODUCTS IN YOUR OCCUPATION?NO DATE ASKED : 03/06/2019 ALCOHOL SCREENING POINTS: 0, INTERPRETATION: NEGATIVE. RECREATIONAL DRUG USE DENIES. CAFFEINE 1-2/DAY. SEXUAL HX HAD SEX IN THE LAST 12 MONTHS (VAGINAL, ORAL, OR ANAL)?: NO, HAVE YOU EVER HAD AN STD?: YES, HERPES?: YES. BAPTISM NO MORMON BELIEFS THAT WOULD IMPACT HEALTH CARE. LANGUAGE LAO. LEARNING BARRIERS / SPECIAL NEEDS BARRIERS TO LEARNING?NO HEARING IMPAIRED?NO VISION IMPAIRED?YES : DIABETIC RETINOPATHY COGNITIVELY IMPAIRED?NO READINESS TO LEARN?YES LEARNING PREFERENCES?NO LEARNING CAPABILITIES PRESENT?YES EMOTIONAL BARRIERS?NO SPECIAL DEVICES?YES :WALKER, WHEELCHAIR PERIANESTHESIA MANAGER NEEDED?NO DOMESTIC VIOLENCE DO YOU FEEL SAFE IN YOUR ENVIRONMENT?YES WAS MOLESTED A CHILD DIET: REGULAR. EXERCISE: NO REGULAR EXERCISE. MARITAL STATUS: . OTHERS AT HOME: SPOUSE. PAIN CLINIC PFS, CLERGY, PUBLIC HEALTH REFERRALS HAS THE PATIENT BEEN EDUCATED REGARDING HIS/HER PLAN OF CARE?YES HAS THE PATIENT BEEN EDUCATED REGARDING PAIN, THE RISK FOR PAIN, THE IMPORTANCE OF EFFECTIVE PAIN MANAGEMENT, AND THE PAIN ASSESSMENT PROCESS?YES ADVANCE DIRECTIVE ADVANCE DIRECTIVE DISCUSSED WITH PATIENT:YES 03/06/19 HAS HCP-DAUGHTER, MARQUIS LEIJA [phone] HOSPITALIZATION/MAJOR DIAGNOSTIC PROCEDURE CHEST PAIN 2013 ABOVE SURGERIES R/O STROKE 10/2017 MD 01/2016 CELLULITIS NOVEMBER 2017 LEFT FOOT CELLULITIS January - 2017 LEFT FOOT FEBRUARY [id number] LEFT FOOT FEBRUARY 23-MARCH 23, 2018 MRSA 01/16 SEPSIS 02/13 REVIEW OF SYSTEMS REVIEWED BY: PROVIDER: DICK . CONSTITUTIONAL: ANY CHANGE IN YOUR MEDICAL CONDITION? NO . CHILLS NO . FEVER NO . INFECTION: DO YOU HAVE NEW INFECTIONS? YES 01/2019 SEPSIS . DO YOU HAVE HISTORY OF MRSA? YES LEGS . MUSCULOSKELETAL: ANY NEW PATTERNS OF PAIN OR NUMBNESS? NO . GASTROENTEROLOGY: ANY NEW CHANGE IN BOWEL CONTROL? YES, SOMETIMES DOESN'T MAKE IT TO THE BATHROOM IN TIME. THIS HAS BEEN GOING ON FOR THE PAST 6 MONTHS . GENITOURINARY: ANY NEW CHANGE IN BLADDER CONTROL? NO . IS THERE A CHANCE YOU COULD BE ? NO . HEMATOLOGY/LYMPH: DO YOU TAKE ANY BLOOD THINNERS? (FOR EXAMPLE- COUMADIN, PLAVIX, AGGRENOX, PLATEL, PRADAXA, OR XARELTO) YES, PLAVIX . WHEN WAS YOUR LAST DOSE? DATE: TIME:03/03/19 A.M . NEUROLOGY: HAVE YOU FALLEN IN THE PAST 12 MONTHS? YES, SEVERAL, LAST TIME THIS A.M. JUST LOST HER BALANCE. LANDED ON LEFT SIDE, LEFT SHOULDER, ARM, ELBOW AND HAND NOW HURT . ANY NEW EXTREMITY NUMBNESS OR WEAKNESS? YES, WEAKNESS LEFT ARM SINCE FALLING THIS MORNING . CARDIOLOGY: DO YOU HAVE A PACEMAKER OR DEFIBRILLATOR? NO . RESPIRATORY: HAVE YOU BEEN SICK IN THE PAST WEEK? NO . FEVER NO . FLU LIKE SYMPTOMS? NO . COUGH NO . INTEGUMENTARY: DO YOU HAVE ANY RASHES OR OPEN SORES? YES, ULCER BOTTOM LEFT FOOT . ALLERGIC/IMMUNO: ARE YOU ALLERGIC TO IV DYE? NO . ANY NEW ALLERGIES? NO . PSYCHIATRIC: DO YOU HAVE THOUGHTS OF HURTING YOURSELF OR SOMEONE ELSE? NO . ARE YOU ABUSED, NEGLECTED, OR IN AN UNSAFE ENVIRONMENT? NO . ENDOCRINOLOGY: ARE YOU DIABETIC? YES,, FSBS THIS A.M. 127 PT STATED SHE THOUGHT HER BS WAS LOW 2 GLASSES OF OJ GIVEN. FSBS AFTER THE OJ . OTHER: DO YOU NEED ANY PRESCRIPTIONS? YES . IF YES, PLEASE LIST: OXYCODONE . ANY NEW PROBLEMS WITH YOUR MEDICATIONS? NO . WHEN DID YOU LAST EAT? ____ . WHEN DID YOU LAST DRINK? ____ . WHAT DID YOU LAST DRINK? ____ . NAME OF PERSON DRIVING YOU HOME? ____ . DO YOU HAVE ANY OTHER QUESTIONS OR CONCERNS NO HAVING PARACENTISIS THURS 1135 TRANSFERRED TO ED TRIAGE VIA W/C AFTER SPEAKING TO NICOLETTE IN THE ED. . VITAL SIGNS WT 159.4 LBS, HT 5'1", BMI 30.12 INDEX, BP 148/68 MM HG, HR 68 /MIN, RR 16 /MIN, TEMP 98.2 F, OXYGEN SAT % 93%, BLOOD GLUCOSE LEVEL 127 THIS AM, SAFE IN ENV? (Y/N) Y, NA INITIALS WA 10:39, REVIEWED BY: KENNA. EXAMINATION GENERAL EXAMINATION: GENERAL APPEARANCE: SEATED ON WHEELCHAIR- ORIENTATEDX3 APPEARS LETHARGIC. HEART:NO MURMURS, REGULAR RATE AND RHYTHM. ASSESSMENTS USE OF OPIATES FOR THERAPEUTIC PURPOSES - Z79.891 (PRIMARY) PAIN IN LEFT LOWER LEG - M79.662 TREATMENT USE OF OPIATES FOR THERAPEUTIC PURPOSES CONTINUE OXYCODONE-ACETAMINOPHEN TABLET, 5-325 MG, 1 TABLET NEEDED, ORALLY, EVERY 6 HRS PRN PAIN #30 TAB SHOULD LAST 30 DAYS MDD4, 30 DAYS, 30, REFILLS 0 CLINICAL NOTES: PATIENT TRANFERRED TO ED SHE FELL THIS MORNING ONTO LEFT SIDE. SHE SAYS HER BLOOD GLUCOSE MAY BE LOW.BLOOD GLUCOSE CHECKED RN 67 MMOL IN OFFICE. PROCEDURE CODES FA211 ESTABILISHED PATIENT [facility] CHARGE DISPOSITION & COMMUNICATION ELECTRONICALLY SIGNED BY KIERA MARIN ON 03/07/2019 AT 04:47 PM EDT DISCLAIMER : THIS IS A VISIT SUMMARY EXTRACTED FROM THE [employer] CHART. IT IS NOT A COPY OF THE [employer] PROGRESS NOTE. SHAAN
== END ==
LOC: M PAIN 10:00
PROVIDERS: ATTEND Nurse Practitioner Family
DX: M79.662 Pain in left lower leg (principal); E11.22 Type 2 diabetes mellitus with diabetic chronic kidney disease; G47.33 Obstructive sleep apnea (adult) (pediatric); E78.5 Hyperlipidemia, unspecified; G25.81 Restless legs syndrome; K21.9 Gastro-esophageal reflux disease without esophagitis; F32.9 Major depressive disorder, single episode, unspecified; E03.9 Hypothyroidism, unspecified; N18.9 Chronic kidney disease, unspecified; I12.9 Hypertensive chronic kidney disease with stage 1 through stage 4 chronic kidney disease, or unspecified chronic kidney disease; K74.60 Unspecified cirrhosis of liver; E11.40 Type 2 diabetes mellitus with diabetic neuropathy, unspecified; E11.621 Type 2 diabetes mellitus with foot ulcer; L97.529 Non-pressure chronic ulcer of other part of left foot with unspecified severity; Z79.891 Long term (current) use of opiate analgesic; Z79.4 Long term (current) use of insulin; Z79.899 Other long term (current) drug therapy; Z98.49 Cataract extraction status, unspecified eye; Z95.5 Presence of coronary angioplasty implant and graft; Z89.422 Acquired absence of other left toe(s); Z86.14 Personal history of Methicillin resistant Staphylococcus aureus infection; Z88.8 Allergy status to other drugs, medicaments and biological substances

== ENCOUNTER → 2019-03-08 | Outpatient (CLI) | payer MEDICARE ==
[~2019-03-08] MED LIST changes: +IBUP-1022 PO; +VELP5CHW PO
--- NOTE | 2019-03-08 18:38 | REP ---
Ultrasound-guided paracentesis The procedure was performed under the direct supervision of Dr. Martinez. The risks and benefits of the procedure were explained to the patient and informed consent was obtained. The largest pocket of fluid was localized in the left flank using ultrasound guidance. The skin was prepped and draped in a sterile fashion. 1% lidocaine was used as a local anesthetic. An 8-Maori multi side-hole catheter was inserted using trocar technique. 5900 ml of yellow fluid was withdrawn and discarded. The patient tolerated the procedure well and there were no immediate complications. After the appropriate amount of monitored convalescence the patient was discharged from the department. Reviewed by ANTONIO Curiel 03/08/2019 04:05 P Electronically Signed by Vel Martinez MD 03/08/2019 06:29 P
== END ==
LOC: M RADPRO 08:47
PROVIDERS: ATTEND Internal Medicine Nephrology
DX: E87.70 Fluid overload, unspecified (principal); R18.8 Other ascites
CPT/HCPCS: 96365; P9047

== ENCOUNTER 2019-03-21 15:05 | Inpatient (IN) | payer MEDICARE ==
[~2019-03-21] VITALS: Ht 157.5 cm; Wt 81.2 kg
[~2019-03-21 15:05] MED LIST changes: -TRAZ-160 PO; +TRAZ-252 PO; -VELP5CHW PO
[2019-03-21] MEDS ORDERED: VANCOMYCIN HCL 1,000 MG, VIAL MATE ADAPTER 1 EACH in D5W 250 ML IV ONE ×2 (16:30→18:00)
[2019-03-21] MEDS ORDERED: PIPERACILLIN/TAZOBACTAM SOD 2.25 GM in D5W MINI-BAG PLUS 50 ML IV ONE (16:30)
[2019-03-21 16:36] LABS: BASO % 0.2 % (0.0-1.0); EOS # 0.5 10^3/uL (0.0-0.50); EOS % 1.9 % (0.0-3.0); HEMATOCRIT 31.9 % (36.0-47.0); HEMOGLOBIN 9.7 g/dl (12.0-15.5); LYMPH # 0.8 10^3/uL (1.5-4.5); LYMPH % 3.4 % (24.0-44.0); MEAN CORPUSCULAR HEMOGLOBIN 28.5 pg (27.0-33.0); MEAN CORPUSCULAR HGB CONC 30.4 g/dl (32.0-36.5); MEAN CORPUSCULAR VOLUME 93.8 fl (80.0-96.0); MONO % 8.5 % (0.0-5.0); NEUTROPHILS # 20.6 10^3/uL (1.8-7.7); NEUTROPHILS % 84.7 % (36.0-66.0); PLATELET COUNT, AUTOMATED 189 10^3/uL (150-450); WHITE BLOOD COUNT 24.3 10^3/uL (4.0-10.0)
[2019-03-21 16:47] LABS: INR 1.22; PROTHROMBIN TIME 15.6 SECONDS (12.1-14.4)
[2019-03-21 16:48] LABS: PARTIAL THROMBOPLASTIN TIME 31.2 SECONDS (25.4-37.6)
--- NOTE | 2019-03-21 16:48 | REP ---
Portable chest x-ray: Single view. History: Shortness of breath. Comparison study: March 06, 2019. Findings: Metallic jewelry is seen about the neck. EKG electrodes are noted. Moderate cardiac enlargement is again observed unchanged. Pulmonary vasculature is somewhat congested. No focal infiltrate is seen. No evidence of free pleural effusion. Impression: Cardiomegaly. Pulmonary vascular congestion. No focal infiltrate. Electronically Signed by Vel Martinez MD 03/21/2019 04:39 P
[2019-03-21 17:00] LABS: MONO # 2.1 10^3/uL (0.0-0.8)
[2019-03-21 17:02] LABS: ERYTHROCYTE SEDIMENTATION RATE 68 mm/hr (0-30)
[2019-03-21 17:08] LABS: ALT/SGPT 44 U/L (12-78); BILIRUBIN,DIRECT 0.3 MG/DL (0.0-0.2); BILIRUBIN,TOTAL 0.5 MG/DL (0.2-1.0); BLOOD UREA NITROGEN 91 MG/DL (7-18); CARBON DIOXIDE LEVEL 24 MEQ/L (21-32); CHLORIDE LEVEL 101 MEQ/L (98-107); CPK CREATINE PHOSPHOKINASE 191 U/L (26-192); GLOMERULAR FILTRATION RATE 5.5 (>39); GLUCOSE, FASTING 92 MG/DL (70-100); MB/CK RELATIVE INDEX 6.02 (< OR =4); NT-PRO BNP 15071 PG/ML (<125); POTASSIUM SERUM 4.4 MEQ/L (3.5-5.1); SODIUM LEVEL 136 MEQ/L (136-145); TOTAL PROTEIN 6.2 GM/DL (6.4-8.2); TROPONIN I < 0.02 NG/ML (< 0.10)
--- NOTE | 2019-03-21 17:58 | REP ---
Left foot series: Four views: History: Foot swelling. Rule out osteomyelitis. Comparison study: February 02, 2019. Findings: There is diffuse soft tissue swelling. There is a large soft tissue defect representing a deep ulcer in the volar and medial soft tissues at the midfoot level. This is significantly larger than it was on February 02, 2019. There is advanced neuropathic arthropathy of the midfoot with collapse of the tarsal arch and fragmentation and spur formation in the midfoot articulations as before. Plantar heel spurring is seen. There is diffuse osteopenia. The left second toe is amputated. The left 2nd toe is amputated through the PIP joint. The left 3rd toe is amputated at the level of the distal aspect of the proximal phalanx. No acute bony erosive changes seen. Impression: Diffuse soft tissue swelling. Advanced midfoot neuropathic arthropathy. Large deep volar and medial soft tissue ulcer. This has enlarged compared to the February 02, 2019 study. No focal bony destructive lesion. Electronically Signed by Vel Martinez MD 03/22/2019 08:57 A
[2019-03-21] MEDS ORDERED: VELP5CHW PO (18:07)
--- NOTE | 2019-03-21 18:51 | REP ---
LEFT LOWER EXTREMITY DUPLEX VEINS: HISTORY: Leg swelling. COMPARISON: 08/31/2018. There are no filling defects in the deep venous system. The deep venous system is patent. There is marked soft-tissue edema. IMPRESSION:There is no deep venous thrombosis. Electronically Signed by Carmelo Dean MD 03/21/2019 06:59 P
[2019-03-21] MEDS ORDERED: GABAPENTIN 100 MG CAP PO SCH (21:00)
[2019-03-21] MEDS ORDERED: rOPINIRole 1MG TAB PO SCH (21:00)
[2019-03-21] MEDS ORDERED: NYSTATIN OINTMENT 15 GM TOP PRN (22:15)
[2019-03-21] MEDS ORDERED: GLUCOSE 4 GM CHEW TABLET PO PRN (22:15)
[2019-03-21] MEDS ORDERED: PATIROMER SORBITEX CALCIUM 8.4 GM POWDER PACKET (VELTASSA) PO PRN (22:15)
[2019-03-21] MEDS ORDERED: GLUCAGON FOR INJ 1 MG VIAL (J1610) SC PRN (22:15)
[2019-03-21] MEDS ORDERED: MOM 30ML SUSPENSION UDC PO PRN (22:15)
[2019-03-21] MEDS ORDERED: VANCOMYCIN HCL 1,000 MG, VIAL MATE ADAPTER 1 EACH in D5W 250 ML IV SCH (22:15)
[2019-03-21] MEDS ORDERED: DEXTROSE 50% 50 ML SYRINGE IV PRN (22:15)
--- NOTE | 2019-03-21 22:22 | ECGEPIP ---
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
[2019-03-21] MEDS: GABAPENTIN 300 MG CAP PO SCH (23:00)
[2019-03-21] MEDS: LEVEMIR (INSULIN DETEMIR) 1 UNITS/0.01ML SC SCH (23:00)
[2019-03-21] MEDS: SIMVASTATIN 20 MG TAB PO SCH (23:00)
[2019-03-21] MEDS: HumaLOG INSULIN (NovoLOG) PER UNIT SC SCH (23:00)
[2019-03-21] MEDS: METOPROLOL SUCC (TopROL XL) 50MG **XL** TAB PO SCH (23:00)
[2019-03-21] MEDS: ALPRAZolam 0.25 MG TAB PO PRN (23:17)
[2019-03-21] MEDS: traZODone 100 MG TAB PO PRN (23:18)
[2019-03-22] MEDS: rOPINIRole 2MG TAB PO SCH ×3 (01:04→21:41)
--- NOTE | 2019-03-22 04:36 | HPEPDOC ---
General Date of Admission Mar 21, 2019 at 20:06 Primary Care Physician: Catracho Pineda MD Other Providers Nephro: Dr. Timothy Grullon Cardio: Dr. Jose Neuro: Dr. Des Ybarra Podiatry/Wound: Dr. Baeza Chief Complaint The patient is a 68-year-old female admitted with a reason for visit of Foot Ulcer, Left. History of Present Illness 68-year-old female with significant PMH as mentioned below presents to the ER with daughter for concerns of increased redness and bloody weeping from her left foot ulcer at the heel, which she has had since August [address] Baeza. They're also concerned of a new ulcer on the medial malleolus that is growing proximal to the old ulcer. Per the patient, new ulcer has evolved over the past 1-2 weeks, and was also assessed by Dr. Baeza about one week ago when both wounds were debrided. She does have a public health nurse that comes in daily for dressing changes, and per the patient, podiatry had recommended to change how the wrapping is done and to shift bandages frequently. Of note, patient does have ESRD, on HD MWF, but missed Tuesday session due to an episode of diarrhea, and Tuesday session she ended up presenting to the ER instead. Also, due to her cirrhosis, she undergoes paracentesis every 2 weeks, which is scheduled for tomorrow 03/22/2019 at 9 AM. Given the concern for infected wounds of the left foot, fluid overload from cirrhosis and ESRD, will admit for further management. Home Medications Scheduled Calcium Carbonate (Tums) 500 Mg Chw, 500 MG PO WM, (Reported) Clopidogrel Bisulfate (Plavix) 75 Mg Tab, 75 MG PO DAILY, (Reported) HAS NOT TAKEN SINCE 03/16/19 - SCHEDULED FOR PARACENTESIS ON 03/22/19 Duloxetine Hcl (Duloxetine HCl) 30 Mg Cap, 30 MG PO DAILY, (Reported) Gabapentin (Gabapentin) 100 Mg Cap, 300 MG PO BID, (Reported) Hydralazine HCl (Hydralazine HCl) 25 Mg Tab, 25 MG PO TID, (Reported) Insulin Detemir (Levemir) 1 Units/0.01 Ml Susp, 20 UNITS SC QHS, (Reported) Insulin Lispro (Humalog) 100 Unit/Ml Inj, 1 DOSE SC AC, (Reported) PER SLIDING SCALE Levothyroxine Sodium (Synthroid) 125 Mcg Tab, 125 MCG PO DAILY, (Reported) Losartan Potassium (Losartan Potassium) 50 Mg Tab, 50 MG PO DAILY, (Reported) Metoprolol Succinate (Metoprolol Succinate) 50 Mg Tab, 50 MG PO BID, (Reported) Pantoprazole Sodium (Pantoprazole Sodium) 40 Mg Tab, 40 MG PO DAILY, (Reported) Ropinirole HCl (Ropinirole HCl) 2 Mg Tab, 4 MG PO BID, (Reported) Silver Sulfadiazine (Ssd) 1 % Cre, 1 DOSE TOP DAILY, (Reported) WITH DRESSING CHANGES ON FOOT Simvastatin (Simvastatin) 20 Mg Tab, 20 MG PO QHS, (Reported) Sucroferric Oxyhydroxide (Velphoro) 500 Mg Tab.chew, 500 MG PO WM, (Reported) NEW OF 03/14/19 - CALCIUM ACETATE MAKE HER VOMIT DUE TO CAPSULES BEING TOO LARGE, TOOK VELPHORO FOR THE FIRST TIME 03/20/19 AND STATES IT MADE HER VERY LATHARGIC ALL DAY Trazodone HCl (Trazodone HCl) 100 Mg Tab, 200 MG PO QHS, (Reported) Scheduled PRN Alprazolam (Alprazolam) 0.25 Mg Tab, 0.25 MG PO BID PRN for ANXIETY, (Reported) Nystatin (Nystatin Oint) 30 Gm Oint, 1 DOSE TOP BID PRN for REDNESS/IRRITATION, (Reported) APPLY TO ABDOMINAL FOLDS Oxycodone HCl/Acetaminophen (Percocet 5-325 mg Tablet) 1 Tab Tab, 1 TAB PO DAILY PRN for PAIN, (Reported) Patiromer Calcium Sorbitex (Veltassa) 8.4 Gm Pow, 8.4 GM PO ASDIRECTED PRN for MISSING DIALYSIS, (Reported) WAS SUPPOSE TO TAKE 03/19/19 BUT DID NOT TAKE Allergies Coded Allergies: pregabalin (Verified Adverse Reaction, Intermediate, "feeling weird", SI thoughts., 03/06/19) Past Medical History Medical History HFpEF, grade II diastolic dysfxn, moderate LVH, mild pulm art HTN 09/14 echo Cirrhosis with hx metabolic encephalopathy ESRD on HD MWF-noncompliant Hyperparathyroidism 2/2 renal ds Chronic Anemia 2/2 ESRD HTN IDDM2 with neuropathy and diabetic ulcers/osteomyelitis/cellulitis s/p ampu tations Charcot foot Hypothyroidism Anxiety/Insomnia GERD Restless Leg Syndrome CAD s/p stents Charcot foot Hx of Osteomyelitis with abscess Surgical History Abscess from Osteomyelitis I/D Paracentesis q2 weeks Toe amputations of left foot 2nd & 3rd digits Right second toe amputation Four coronary stents. Left arm AV fistula. Appendectomy. Hysterectomy. Bilateral cataracts. Family History noncontributory Social History Recently , lost to sepsis in 12/2018 opioid-dependent for chronic pain Denies tobacco/alcohol A-FIB/CHADSVASC A-FIB History Current/History of A-Fib/PAF?: No Review of Systems Other systems Constitutional: Denies fever, chills Skin: Admits to chronic wounds of b/l feet, left foot wounds worsening. Denies any new rashes Pulmonary: Denies dyspnea, cough, wheezing Cardiac: Denies chest pain, palpitations. Admits orthopnea & edema GI: Denies nausea, vomiting. Admits to abd discomfort from ascites, and recent c hronic diarrhea. Denies blood loss MSK: Denies new aches/pains Neurologic: Denies weakness or new numbness/tingling Physical Examination Other physical findings General exam: Alert and cooperative, A&O 3, NAD Eye exam: PERRLA, EOMI ENT: Atraumatic, normocephalic, mucous membranes moist Neck: Supple Cardiac: RRR, normal S1 & S2 Lungs: CTAB, decreased at bases b/l Abdomen: Protuberant, tense from ascites, normoactive bowel sounds, nontender Extremity: able to move all extremities independently. Lipodermatosclerosis b/l LE, with multiple toes amputated b/l. 1+ pitting edema b/l Skin: [place], warm. orange-sized stage 2-3 ulcer on left heel, with quarter sized stage 2 ulcer on left medial malleolus. Dressings have yellow-red fluid Psych: Normal mood and affect Vital Signs Vital Signs Date Time Temp Pulse Resp B/P (MAP) Pulse Ox O2 Delivery O2 Flow Rate FiO2 03/22/19 03:00 55 20 93/55 (68) 96 Nasal Cannula 2.0 03/21/19 22:46 96.8 Laboratory Data Labs 24H Laboratory Tests 2 03/21/19 16:24: Immature Granulocyte % (Auto) 1.3, White Blood Count 24.3H, Red Blood Count 3.40L, Hemoglobin 9.7L, Hematocrit 31.9L, Mean Corpuscular Volume 93.8, Mean Corpuscular Hemoglobin 28.5, Mean Corpuscular Hemoglobin Concent 30.4L, Red Cell Distribution Width 17.7H, Platelet Count 189, Neutrophils (%) (Auto) 84.7H, Lymphocytes (%) (Auto) 3.4L, Monocytes (%) (Auto) 8.5H, Eosinophils (%) (Auto) 1.9, Basophils (%) (Auto) 0.2, Neutrophils # (Auto) 20.6H, Lymphocytes # (Auto) 0.8L, Monocytes # (Auto) 2.1H, Eosinophils # (Auto) 0.5, Basophils # (Auto) 0.0, Nucleated Red Blood Cells % (auto) 0.0, Erythrocyte Sedimentation Rate 68H, Prothrombin Time 15.6H, Prothromb Time International Ratio 1.22, Activated Partial Thromboplast Time 31.2, Anion Gap 11, Glomerular Filtration Rate 5.5L, Calcium Level 7.0L, Aspartate Amino Transf (AST/SGOT) 67H, Alanine Ami notransferase (ALT/SGPT) 44, Alkaline Phosphatase 451H, Total Bilirubin 0.5, Direct Bilirubin 0.3H, Total Creatine Kinase 191, Creatine Kinase MB 12.0H, Creatine Kinase MB Relative Index 6.02H, Troponin I < 0.02, C-Reactive Protein, Quantitative 22.80H, OZ-Ghu-A-Type Natriuretic Peptide 75747F, Total Protein 6.2L, Albumin 2.0L, Albumin/Globulin Ratio 0.48L, Thyroid Stimulating Hormone (TSH) 3.860H, Free Thyroxine 0.90 03/21/19 22:44: Bedside Glucose (Misc Panel) 195H CBC/BMP Laboratory Tests 03/21/19 16:24 Red Blood Count 3.40 L, Mean Corpuscular Volume 93.8, Mean Corpuscular Hemoglobin 28.5, Mean Corpuscular Hemoglobin Concent 30.4 L, Red Cell Distr ibution Width 17.7 H, Neutrophils (%) (Auto) 84.7 H, Lymphocytes (%) (Auto) 3.4 L, Monocytes (%) (Auto) 8.5 H, Eosinophils (%) (Auto) 1.9, Basophils (%) (Auto) 0.2, Neutrophils # (Auto) 20.6 H, Lymphocytes # (Auto) 0.8 L, Monocytes # (Auto) 2.1 H, Eosinophils # (Auto) 0.5, Basophils # (Auto) 0.0 Microbiology Microbiology 03/21/19 Blood Culture, Received Pending 03/21/19 Blood Culture, Received Pending 03/21/19 Gram Stain, Received Pending 03/21/19 Wound Culture, Received Pending Assessment/Plan Cellulitis of LLE 2/2 infected chronic wound Patient endorses increased pain, redness, bloody drainage from her chronic wounds of the left foot [left heel and inferior medial malleolus]. Imaging is negative for thrombus and osteomyelitis, which she does have a hx of and is s/p amputations. She normally follows with Dr. Baeza, and underwent wound debridement last week. Elevated white count and CRP impressive at 22, but otherwise stable, afebrile. Continue renally-dosed IV Vanco and Zosyn and trend CRP. Blood and wound cultures pending. Wound care consulted for continued wound management, appreciate input. HFpEF, grade II diastolic dysfxn moderate LVH, mild pulm art HTN per 09/14 echo. Has trace pitting edema bilaterally. She does show signs of volume overload clinically and on CXR, however has missed previous 2 dialysis sessions and is also due for her regularly-scheduled paracentesis tomorrow 03/22. Will monitor her fluid status once she undergoes these procedures. Lungs are currently clear. Cirrhosis Etiology unclear, presumed 2/2 AMADOR? Pt does not follow with GI, but does regularly undergo paracentesis [id number], and was normally scheduled for tomorrow at 9 AM as an outpatient procedure. Given her abdomen is significantly distended, paracentesis has been ordered for tomorrow. Per previous records, she normally removes about 6-7L. ESRD on HD MWF History of noncompliance with dialysis. She admits to missing the previous 2 sessions, and last HD per the patient was last Tuesday. Nephrology has been consulted for continuation of dialysis. No emergent need for HD at time of admission. Acute hypoxia She is currently requiring supplemental O2, none at baseline. Likely multifactorial 2/2 cardiac, renal, hepatic decompensation. This is anticipated to improve as she undergoes dialysis and paracentesis, as she is otherwise stable and asymptomatic. Wean off O2 as tolerated. Hyperparathyroidism 2/2 renal ds continue home calcium, Velphoro CAD s/p 4 stents. Continue ASA, plavix, statin, BBlocker IDDM2, Charcot foot Has hx of poor compliance. Hx of osteomyelitis with abscess, s/p amputations Associated neuropathy, diabetic ulcers, multiple episodes of cellulitis Continue home Gabapentin, Levemir, ISS Chronic Anemia 2/2 ESRD Currently at baseline H&H. No acute blood loss. Monitor HTN continue home Hydralazine, Losartan, Metoprolol Hypothyroidism continue home Synthroid Anxiety/Insomnia continue home prn Xanax, Duloxetine, Trazodone GERD continue home Protonix Restless Leg Syndrome continue home Ropinerole DVT ppx: heparin sc DISPO: will admit to Hospitalist service. Call nephro & wound care for consults in am. Plan / VTE VTE Prophylaxis Ordered?: Yes GME ATTESTATION GME ATTESTATION My faculty preceptor for this patient encounter was physically present during the encounter and was fully available. All aspects of the patient interview, ex amination, medical decision making process, and medical care plan development were reviewed and approved by the faculty preceptor. The faculty preceptor is aware and concurs with the plan as stated in the body of this note and will attest to such by his/her cosignature. ATTENDING NOTE I have personally examined this patient and reviewed the H&P. I have discussed in detail with the resident the findings and treatment plan as documented in the resident's note; I agree with the treatment plan. 68 y/o F with chronic left foot diabetic ulcer was brought to ER for c/o worse vianey redness, bloody discharge for past few days. Pt was found with elevated WBC count. On physical examination chronic ulcer over left foot sole/heel- red, serosanguineous discharge and quarter sized on left medial malleolus. Plan infected diabetic foot ulcer will f/u with wound care team will continue iv vancomycin and zosyn for now SHAILA LICEA DO Mar 22, 2019 04:36 PETERSON CUETO MD Mar 22, 2019 05:09
[2019-03-22] MEDS: PIPERACILLIN/TAZOBACTAM SOD 2.25 GM in D5W MINI-BAG PLUS 50 ML IV SCH ×2 (05:32→20:08)
[2019-03-22] MEDS: LEVOTHYROXINE 125MCG TABLET (0.125MG) PO SCH (06:05)
[2019-03-22] MEDS: HumaLOG INSULIN (NovoLOG) PER UNIT SC SCH ×4 (07:30→21:00)
[2019-03-22 07:55] LABS: HEMATOCRIT 29.2 % (36.0-47.0); HEMOGLOBIN 8.7 g/dl (12.0-15.5); MEAN CORPUSCULAR HEMOGLOBIN 27.9 pg (27.0-33.0); MEAN CORPUSCULAR HGB CONC 29.8 g/dl (32.0-36.5); MEAN CORPUSCULAR VOLUME 93.6 fl (80.0-96.0); PLATELET COUNT, AUTOMATED 171 10^3/uL (150-450); RED BLOOD COUNT 3.12 10^6/uL (4.00-5.40)
[2019-03-22] MEDS: SUCROFERRIC OXYHYDROXIDE 500MG CHEW TAB (VELPHORO) PO SCH ×4 (08:00→18:00)
[2019-03-22 08:14] LABS: C REACTIVE PROTEIN QUANTITATIV 16.7 MG/DL (0.00-0.30); CALCIUM LEVEL 6.7 MG/DL (8.8-10.2); CREATININE FOR GFR 7.99 MG/DL (0.55-1.30); GLOMERULAR FILTRATION RATE 5.3 (>39); POTASSIUM SERUM 4.5 MEQ/L (3.5-5.1)
[2019-03-22] MEDS: CLOPIDOGREL 75 MG TAB PO SCH (08:23)
[2019-03-22] MEDS: CALCIUM CARBONATE 500 MG CHEW U/D PO SCH ×3 (08:23→20:08)
[2019-03-22] MEDS: GABAPENTIN 300 MG CAP PO SCH ×2 (08:24→21:40)
[2019-03-22] MEDS: PANTOPRAZOLE 40MG TAB (PROTONIX) PO SCH (08:25)
[2019-03-22] MEDS: HEPARIN SOD (PORCINE) 5000 UNITS/ML VIAL SC SCH ×3 (08:25→21:42)
[2019-03-22] MEDS: DULoxetine 30 MG CAP (CYMBALTA) PO SCH (08:25)
[2019-03-22] MEDS: METOPROLOL SUCC (TopROL XL) 50MG **XL** TAB PO SCH (09:00)
[2019-03-22] MEDS ORDERED: SILVER SULFADIAZINE 1% CR 50 GM JAR TOP SCH (09:00)
[2019-03-22] MEDS ORDERED: LOSARTAN 50 MG TAB PO SCH (09:00)
[2019-03-22 09:43] VITALS: BP 96/68
[2019-03-22] MEDS ORDERED: LIDOCAINE 1% SDV 5 ML VIAL SQ ONE (12:00)
[2019-03-22] MEDS ORDERED: HEPARIN 1,000 UNITS/ML 10ML VIAL (FOR RADIOLOGY& DIALYSIS ONLY) IV ONE (12:00)
[2019-03-22 12:49] VITALS: BP 102/57
[2019-03-22 13:50] VITALS: BP 101/56
[2019-03-22] MEDS: PERCOCET 5MG/325MG TAB PO PRN (14:57)
[2019-03-22] MEDS: **VANCO AFTER HD** MISC XX SCH (16:00)
[2019-03-22] MEDS: SANTYL OINT 30GM TOP SCH (16:37)
[2019-03-22] MEDS: ACETAMINOPHEN TAB 650MG DOSE (2X325MG) PO PRN ×3 (19:36→23:44)
[2019-03-22] MEDS: METOPROLOL SUCC *XL* 25MG TAB (TopROL *XL*) PO SCH (21:00)
[2019-03-22] MEDS: SIMVASTATIN 20 MG TAB PO SCH (21:40)
[2019-03-22] MEDS: EUCERIN 120GM CREAM TOP SCH (21:43)
[2019-03-22] MEDS: LEVEMIR (INSULIN DETEMIR) 1 UNITS/0.01ML SC SCH (21:43)
[2019-03-22] MEDS: VANCOMYCIN HCL 1,000 MG, VIAL MATE ADAPTER 1 EACH in D5W 250 ML IV SCH (21:43)
[2019-03-22 22:00] VITALS: BP 93/50
--- NOTE | 2019-03-22 23:27 | IPNPDOC ---
Text Note Date of Service The patient was seen on 03/22/19. NOTE Subjective: Patient seen and examined at bedside. Unable to undergo paracentesis due to plavix. No new medical complaints. Objective: General exam: Alert and cooperative, NAD HEENT: NC/AT, EOMI Neck: Supple Cardiac: RRR, +S1S2 Lungs: CTAB, decreased at bases b/l Abdomen: Protuberant, tense from ascites, normoactive bowel sounds, nontender Extremity: multiple toes amputated b/l. 1+ pitting edema b/l Skin: [place], warm. orange-sized stage 2-3 ulcer on left heel, with quarter sized stage 2 ulcer on left medial malleolus. Dressings have yellow-red fluid Psych: Normal mood and affect A/P: 68-year-old female with significant PMH as mentioned below presents to the ER with daughter for concerns of increased redness and bloody weeping from her left foot ulcer at the heel, and new ulcer on the medial malleolus #Cellulitis of LLE 2/2 infected chronic wound - Imaging is negative for thrombus and osteomyelitis, which she does have a hx of and is s/p amputations - normally follows with Dr. Baeza, and underwent wound debridement last week - +leukocytosis, elevated CRP - continue renally-dosed IV Vanco and Zosyn and trend CRP - BCx, WCx pending - wound care consulted for continued wound management, appreciate input. #HFpEF, grade II diastolic dysfxn - moderate LVH, mild pulm art HTN per 09/14 echo - trace pitting edema bilaterally - volume overload clinically and on CXR - missed previous 2 dialysis sessions and is also due for her regularly- scheduled paracentesis #Cirrhosis - Etiology unclear, presumed 2/2 AMADOR? - does not follow with GI - regular paracentesis [id number] - plan for paracentesis tomorrow 03/23 #ESRD on HD MWF - History of noncompliance with dialysis - admits to missing the previous 2 sessions - follow as per nephrology #Acute hypoxia - requiring supplemental O2, none at baseline. - secondary to volume overload #Hyperparathyroidism 2/2 renal ds continue home calcium, Velphoro #CAD s/p 4 stents. Continue ASA, plavix, statin, BBlocker #IDDM2, Charcot foot #non-compliance - further complicating factor to her medical care #Chronic Anemia 2/2 ESRD Currently at baseline H&H. No acute blood loss. Monitor #HTN continue home Hydralazine, Losartan, Metoprolol #Hypothyroidism continue home Synthroid #Anxiety/Insomnia continue home prn Xanax, Duloxetine, Trazodone #GERD continue home Protonix #Restless Leg Syndrome - continue home Ropinerole DVT ppx: heparin sc A-FIB/CHADSVASC A-FIB History Current/History of A-Fib/PAF?: No VS,Fishbone, I+O VS, Fishbone, I+O Laboratory Tests 03/22/19 07:14 Red Blood Count 3.12 L, Mean Corpuscular Volume 93.6, Mean Corpuscular Hemoglobin 27.9, Mean Corpuscular Hemoglobin Concent 29.8 L, Red Cell Distribution Width 18.0 H, Calcium Level 6.7 L Vital Signs Date Time Temp Pulse Resp B/P (MAP) Pulse Ox O2 Delivery O2 Flow Rate FiO2 03/22/19 22:00 98.2 69 18 93/50 (64) 90 03/22/19 13:50 2.0 03/22/19 06:14 Nasal Cannula DERRICK ROBLES MD Mar 22, 2019 23:27
[2019-03-23] VITALS (7 sets, daily range): BP systolic 86–127; BP diastolic 40–62
[2019-03-23] MEDS ORDERED: DARBEPOETIN 100 MCG/0.5 ML *DIALYSIS* SYRINGE (J0882) IV SCH (02:15)
[2019-03-23 05:46] LABS: HEMATOCRIT 33.4 % (36.0-47.0); MEAN CORPUSCULAR HEMOGLOBIN 28.2 pg (27.0-33.0); MEAN CORPUSCULAR HGB CONC 29.9 g/dl (32.0-36.5); MEAN CORPUSCULAR VOLUME 94.1 fl (80.0-96.0); PLATELET COUNT, AUTOMATED 222 10^3/uL (150-450); RED BLOOD COUNT 3.55 10^6/uL (4.00-5.40); WHITE BLOOD COUNT 16.9 10^3/uL (4.0-10.0)
[2019-03-23] MEDS: PERCOCET 5MG/325MG TAB PO PRN ×2 (05:56→22:53)
[2019-03-23] MEDS: LEVOTHYROXINE 125MCG TABLET (0.125MG) PO SCH (05:56)
[2019-03-23] MEDS: PIPERACILLIN/TAZOBACTAM SOD 2.25 GM in D5W MINI-BAG PLUS 50 ML IV SCH ×2 (05:57→18:31)
[2019-03-23 06:15] LABS: C REACTIVE PROTEIN QUANTITATIV 17.1 MG/DL (0.00-0.30); CALCIUM LEVEL 6.7 MG/DL (8.8-10.2); CREATININE FOR GFR 5.92 MG/DL (0.55-1.30); GLOMERULAR FILTRATION RATE 7.5 (>39); POTASSIUM SERUM 4.5 MEQ/L (3.5-5.1)
[2019-03-23] MEDS: SUCROFERRIC OXYHYDROXIDE 500MG CHEW TAB (VELPHORO) PO SCH ×4 (08:00→18:00)
[2019-03-23] MEDS: GABAPENTIN 300 MG CAP PO SCH ×2 (08:39→22:21)
[2019-03-23] MEDS: CALCIUM CARBONATE 500 MG CHEW U/D PO SCH ×3 (08:39→18:31)
[2019-03-23] MEDS: PANTOPRAZOLE 40MG TAB (PROTONIX) PO SCH (08:39)
[2019-03-23] MEDS: DULoxetine 30 MG CAP (CYMBALTA) PO SCH (08:39)
[2019-03-23] MEDS: HEPARIN SOD (PORCINE) 5000 UNITS/ML VIAL SC SCH ×2 (09:00→22:21)
[2019-03-23] MEDS: HumaLOG INSULIN (NovoLOG) PER UNIT SC SCH ×4 (09:00→22:23)
[2019-03-23] MEDS: METOPROLOL SUCC *XL* 25MG TAB (TopROL *XL*) PO SCH ×3 (09:00→21:00)
[2019-03-23] MEDS: ACETAMINOPHEN TAB 650MG DOSE (2X325MG) PO PRN (09:27)
[2019-03-23] MEDS: DIAPER RELIEF PASTE (DESITIN) 60GM TOP SCH (10:40)
[2019-03-23] MEDS: SANTYL OINT 30GM TOP SCH (10:41)
[2019-03-23] MEDS: EUCERIN 120GM CREAM TOP SCH ×2 (10:41→22:23)
--- NOTE | 2019-03-23 11:38 | IPNPDOC ---
Subjective Date Seen The patient was seen on 03/23/19. Subjective Chief Complaint/HPI Patient seen and examined at the bedside. Reports that her abdominal distention has her feeling uncomfortable. She is scheduled for paracentesis this morning. Denies any acute complaints of shortness of breath, chest pain, palpitations. Objective Physical Examination General Exam: Positive: Alert, Cooperative, Mild Distress (2/2 abdominal distention) ENT Exam: Positive: Atraumatic, Mucous membr. moist/pink Chest Exam: Positive: Diminished Heart Exam: Positive: Rate Normal, Normal S1, Normal S2 Abdomen Exam: Positive: Soft, Other (Distended, +fluid wave, no rebound tenderness, guarding or rigidity noted) Extremity Exam: Negative: Tenderness A-FIB/CHADSVASC A-FIB History Current/History of A-Fib/PAF?: No Assessment /Plan Plan/VTE VTE Prophylaxis Ordered?: Yes Plan Cellulitis of LLE 2/2 infected chronic wound Imaging is negative for osteomyelitis, which she does have a hx of and is s/p amputations Follows with Dr. Baeza, and underwent wound debridement last week--He has been consulted here Cultures unrevealing thus far Continue renally-dosed IV Vanco and Zosyn and trend CRP WBC trending downward Will f/u with Podiatry recommendations ESRD on HD MWF History of noncompliance with dialysis Nephrology on board HFpEF, grade II diastolic dysfxn volume optimization via Dialysis as per Nephrology Hx of Liver Cirrhosis Scheduled for paracentesis today CAD s/p 4 stents Continue ASA, statin, BBlocker Plavix on hold 2/2 paracentesis IDDM2, Charcot foot Cont insulin regimen as ordered Hx of Non-compliance Complicating medical care HTN Continue meds as ordered Hypothyroidism Continue Synthroid Anxiety/Insomnia Continue home meds GERD Continue Protonix Restless Leg Syndrome Cont ropinirole DVT ppx: heparin sc VS, I&O, 24H, Fishbone Vital Signs/I&O Vital Signs Date Time Temp Pulse Resp B/P (MAP) Pulse Ox O2 Delivery O2 Flow Rate FiO2 03/23/19 10:49 70 127/62 03/23/19 08:00 97.8 16 90 03/22/19 13:50 2.0 03/22/19 06:14 Nasal Cannula I&O- Last 24 Hours up to 6 AM 03/23/19 06:00 Intake Total 1210 ml Output Total 1500 ml Balance -290 ml Laboratory Data 24H LABS Laboratory Tests 2 03/22/19 12:19: Bedside Glucose (Misc Panel) 201H 03/22/19 20:39: Bedside Glucose (Misc Panel) 217H 03/23/19 05:31: Nucleated Red Blood Cells % (auto) 0.0, Anion Gap 7L, Glomerular Filtration Rate 7.5L, Blood Urea Nitrogen 64H, Creatinine 5.92H, Sodium Level 136, Potassium Level 4.5, Chloride Level 102, Carbon Dioxide Level 27, Calcium Level 6.7L, C- Reactive Protein, Quantitative 17.10H, Random Vancomycin Level 18.2 CBC/BMP Laboratory Tests 03/23/19 05:31 Red Blood Count 3.55 L, Mean Corpuscular Volume 94.1, Mean Corpuscular Hemoglobin 28.2, Mean Corpuscular Hemoglobin Concent 29.9 L, Red Cell Distribution Width 17.9 H, Calcium Level 6.7 L Microbiology Microbiology 03/21/19 Blood Culture - Preliminary, Resulted No growth after 24 hours . All specim... 03/21/19 Blood Culture - Preliminary, Resulted No growth after 24 hours . All specim... 03/21/19 Gram Stain - Final, Resulted 03/21/19 Wound Culture, Resulted Pending JENISE JAIME MD Mar 23, 2019 11:38
--- NOTE | 2019-03-23 14:53 | REP ---
LEFT HUMERUS, THREE VIEWS: HISTORY: Arm pain. There is no acute fracture or dislocation. There is minimal narrowing of the acromioclavicular joint space. The glenohumeral and elbow joint spaces are normal in appearance. An osteophyte is present on the distal lateral humerus. IMPRESSION: There is no acute fracture or dislocation. Electronically Signed by Carmelo Dean MD 03/23/2019 02:56 P
[2019-03-23] MEDS: **VANCO AFTER HD** MISC XX SCH (16:00)
--- NOTE | 2019-03-23 17:10 | REP ---
Ultrasound-guided paracentesis The procedure was performed by Carmelo Sierra, under the direct supervision of Dr. Rivas. The risks and benefits of the procedure were explained to the patient and informed consent was obtained both verbally and written. Directly prior to the start of the procedure, a formal time out was completed in the procedure room. Under ultrasound guidance, the largest pocket of fluid in the left flank was localized and skin was marked. The skin was then prepped and draped in a sterile fashion. 10 ml of 1% lidocaine was used as a local anesthetic. Using ultrasound guidance, an 8-Greek multiphase side-hole catheter was inserted using trocar technique. 8,200 mL of clear yellow colored fluid was withdrawn and discarded. The patient tolerated the procedure well and there were no immediate complications. After the appropriate monitored convalescence the patient was discharged from the department. Reviewed by ANTONIO Song 03/23/2019 04:33 P Electronically Signed by Aureliano Rivas MD 03/23/2019 05:02 P
--- NOTE | 2019-03-23 18:49 | CR ---
DATE OF CONSULTATION: 03/22/2019 REQUESTING PHYSICIAN: Dr. Olmos. REASON FOR CONSULTATION: Management of end-stage renal disease on hemodialysis. HISTORY OF PRESENT ILLNESS: Dalila Hernandez is well known to me. She is a 68-year-old female with a past medical history of end-stage renal disease on hemodialysis on Tuesday, Tuesday, Tuesday schedule (noncompliant), diastolic congestive heart failure, recurrent ascites, hypertension, insulin-dependent diabetes, chronic anemia, history of coronary artery disease, and other comorbid conditions mentioned below. Patient has recurrent hospital admissions. This time she comes for concern of worsening left foot ulcer with bloody weeping and erythema. She tells me she missed her dialysis session on Tuesday and Tuesday of this week. Her last hemodialysis was on 03/16/2019. She was admitted for cellulitis of the left lower extremity, fluid overload and nephrology evaluation was subsequently requested. PAST MEDICAL HISTORY: 1. End-stage renal disease on hemodialysis Tuesday, Tuesday, Tuesday (noncompliant). 2. Heart failure with preserved ejection fraction, grade 2 diastolic dysfunction. 3. Recurrent ascites. 4. Secondary hyperparathyroidism. 5. Anemia of chronic renal failure. 6. Hypertension. 7. Insulin-dependent diabetes with neuropathy. 8. History of diabetic ulcers. 9. Charcot foot. 10. Hypothyroidism. 11. Anxiety/insomnia. 12. Gastroesophageal reflux disease (GERD). 13. Restless leg syndrome. 14. Coronary artery disease status post four stents. 15. History of osteomyelitis. PAST SURGICAL HISTORY: 1. Left arm atrioventricular (AV) fistula. 2. Four coronary stents. 3. Paracentesis. 4. Toe amputations. 5. Appendectomy. 6. Hysterectomy. 7. Bilateral cataracts. FAMILY HISTORY: No significant family history of end-stage renal disease requiring dialysis. SOCIAL HISTORY: She is a . There are no reported drugs, tobacco or alcohol use. She is opioid-dependent. There is a polypharmacy and pain medication dependence. REVIEW OF SYSTEMS: CONSTITUTIONAL: She denies fevers or chills. She reports generalized weakness. EYES: She denies visual changes or tearing. EARS, NOSE AND THROAT (ENT): She denies odynophagia or sore throat or tinnitus. CARDIAC: She has a history of coronary artery disease. She denies chest pain. She reports edema. RESPIRATORY: She denies cough or hemoptysis. GASTROINTESTINAL (GI): She reports ascites. She denies vomiting or diarrhea. ENDOCRINE: She reports diabetes and secondary hyperparathyroidism. SKIN: She admits to chronic wounds of bilateral feet, with left foot wounds worsening. MUSCULOSKELETAL: She denies any new myalgias or arthralgias. She reports restless leg syndrome. HEMATOLOGIC: She reports anemia. She denies easy bleeding or bruising. NEUROLOGIC: She denies seizures or syncope. PSYCHIATRIC: She reports depression and insomnia. PHYSICAL EXAMINATION: VITAL SIGNS: Temperature 98.2, pulse 69, respiratory rate 18, blood pressure 93/50, saturating 90-98%. INTAKE: Is not fully recorded. Dialysis today removed 1.5 liters. GENERAL: Patient is seen lying in bed in the emergency room, awake, alert and oriented. No acute distress. HEENT: Extraocular muscles are intact. Tongue is moist. NECK: Supple. Jugular veins are elevated. CARDIAC: S1, S2. Regular rate and rhythm. LUNGS: Diminished breath sounds at both bases. ABDOMEN: Has ascites present. There are bowel sounds. Belly is nontender to palpation. EXTREMITIES: The left upper extremity fistula has thrill and bruit. The lower extremities show 2+ pitting edema that extends up to the hips and thighs and dependent areas. The left foot has dressings that have fluid staining from the discharge from her wounds. PSYCHIATRIC: She is depressed. LABORATORY DATA: White count 18, hemoglobin 8.7, platelets 171. Sodium 137, potassium 4.5. C-reactive protein (CRP) 16. Blood cultures: No growth for 24 hours times two sets. Chest x-ray: Pulmonary vascular congestion. Left lower extremity Doppler: No deep venous thrombosis (DVT). INPATIENT MEDICATIONS: Patient is receiving: - Zosyn 2.25 grams intravenous (IV) every 12 hours - vancomycin with dialysis - Tylenol as needed - Xanax as needed - Tums 500 mg by mouth with meals - Plavix 75 mg by mouth daily, which is now on hold - Cymbalta 30 mg by mouth daily - gabapentin 300 mg by mouth twice a day - heparin 5000 units subcutaneous every 12 hours - insulin - levothyroxine 125 mcg by mouth daily - I discontinued her losartan - metoprolol 25 mg by mouth twice a day - Percocet as needed - Protonix 40 mg by mouth daily - Requip 4 mg by mouth twice a day - simvastatin 20 mg by mouth nightly - Velphoro 500 mg by mouth with meals - trazodone 200 mg by mouth as needed for insomnia PROBLEMS: 1. End-stage renal disease on hemodialysis on Tuesday, Tuesday, Tuesday schedule. Patient is chronically noncompliant with dialysis. She missed her last two treatments. She is fluid overloaded. This is a usual thing for her, unfortunately. Patient's blood pressures are noted to be borderline soft and we were only able to remove 1.5 liters of fluid with her dialysis treatment today. She will be dialyzed again on Tuesday to bring her back to her usual schedule. Her electrolytes are otherwise acceptable. Chronic noncompliance complicates her care. 2. Anemia related to chronic renal failure, fluid overload and inflammatory state. I am resuming her on Aranesp and we will also check iron studies. 3. Decompensated diastolic congestive heart failure. Significant peripheral edema. Missed two dialysis sessions. She also missed her scheduled paracentesis (she received a dose of Plavix, which has now again been held). She is dialyzed today with 1.5 liters of fluid removed. We were unable to take off more due to her borderline blood pressures. She will be dialyzed again tomorrow. Continue oral fluid restriction. 4. Hypertension. Presently, the patient is borderline hypotension. Hence, I have discontinued her losartan and I have reduced the dose of Toprol XL and I have added very generous holding parameters with the same, in view of her cellulitis and leukocytosis. 5. Recurrent ascites. She receives paracentesis on a monthly basis. Plavix has again been held by the primary team. Her noncompliance with dialysis worsens her ascites, as well. 6. Cellulitis of the left lower extremity with an infected chronic wound. Leukocytosis, elevated markers of inflammation. Patient is on renally dosed empiric antibiotics as per the primary team. Blood cultures are negative thus far. Wound care consult is pending and she follows with podiatry as well. 7. Restless leg syndrome. I have decreased the dose of the ropinirole in view of her chronic renal failure. 8. History of polypharmacy. Complicates her care and the patient does have a history of encephalopathy related to polypharmacy in the past. Thank you for involving me in the care of Ms. Hernandez. I will be happy to follow her along with you.
[2019-03-23] MEDS: rOPINIRole 1MG TAB PO SCH (22:21)
[2019-03-23] MEDS: SIMVASTATIN 20 MG TAB PO SCH (22:21)
[2019-03-23] MEDS: LEVEMIR (INSULIN DETEMIR) 1 UNITS/0.01ML SC SCH (22:22)
[2019-03-24 01:20] VITALS: BP 118/56
[2019-03-24 02:55] VITALS: BP 123/56
[2019-03-24 04:40] VITALS: BP 118/56
[2019-03-24] MEDS: PIPERACILLIN/TAZOBACTAM SOD 2.25 GM in D5W MINI-BAG PLUS 50 ML IV SCH ×2 (04:43→17:00)
[2019-03-24] MEDS: METOPROLOL SUCC *XL* 25MG TAB (TopROL *XL*) PO SCH ×2 (04:59→22:26)
[2019-03-24] MEDS: HEPARIN SOD (PORCINE) 5000 UNITS/ML VIAL SC SCH ×2 (05:55→22:27)
[2019-03-24] MEDS: PANTOPRAZOLE 40MG TAB (PROTONIX) PO SCH (05:56)
[2019-03-24] MEDS: CALCIUM CARBONATE 500 MG CHEW U/D PO SCH ×3 (05:56→18:13)
[2019-03-24] MEDS: LEVOTHYROXINE 125MCG TABLET (0.125MG) PO SCH (05:56)
[2019-03-24] MEDS: GABAPENTIN 300 MG CAP PO SCH ×2 (05:56→22:27)
[2019-03-24] MEDS: SUCROFERRIC OXYHYDROXIDE 500MG CHEW TAB (VELPHORO) PO SCH ×3 (05:56→18:00)
[2019-03-24] MEDS: DULoxetine 30 MG CAP (CYMBALTA) PO SCH (05:56)
[2019-03-24 06:00] VITALS: BP 126/66
[2019-03-24 06:39] LABS: HEMATOCRIT 29.2 % (36.0-47.0); HEMOGLOBIN 8.8 g/dl (12.0-15.5); MEAN CORPUSCULAR HEMOGLOBIN 27.4 pg (27.0-33.0); MEAN CORPUSCULAR HGB CONC 30.1 g/dl (32.0-36.5); PLATELET COUNT, AUTOMATED 198 10^3/uL (150-450); RED BLOOD COUNT 3.21 10^6/uL (4.00-5.40); WHITE BLOOD COUNT 16.1 10^3/uL (4.0-10.0)
[2019-03-24 07:04] LABS: C REACTIVE PROTEIN QUANTITATIV 14.6 MG/DL (0.00-0.30); CALCIUM LEVEL 6.2 MG/DL (8.8-10.2); CREATININE FOR GFR 6.66 MG/DL (0.55-1.30); GLOMERULAR FILTRATION RATE 6.5 (>39); PERCENT SATURATION 15.1 % (13.2-45.0); POTASSIUM SERUM 4.8 MEQ/L (3.5-5.1)
[2019-03-24] MEDS: HumaLOG INSULIN (NovoLOG) PER UNIT SC SCH ×4 (07:30→22:28)
--- NOTE | 2019-03-24 08:56 | CR ---
DATE OF CONSULTATION: 03/23/2019 CHIEF COMPLAINT: Patient see at bedside for evaluation of a worsening ulcer of her left foot. Patient complains of a large blister and increasing pain in the plantar surface of her left foot. HOME MEDICATIONS: - calcium carbonate - clopidogrel 75 mg by mouth daily - duloxetine 30 mg capsule daily - gabapentin 100 mg capsules 300 mg by mouth twice a day - hydralazine 25 mg as needed three times a day - Levemir - Humalog - levothyroxine 125 mcg daily - losartan 50 mg tablets daily - metoprolol 50 mg tablets by mouth twice a day - pantoprazole 40 mg by mouth daily - ropinirole 4 mg by mouth twice a day - Silvadene topical to the left wound ulcer - simvastatin 20 mg nightly - Velphoro two tablets - trazodone 100 mg tablets, two by mouth nightly - oxycodone as needed for pain - alprazolam 0.25 mg by mouth twice a day daily for anxiety ALLERGIES: PREGABALIN. PAST MEDICAL HISTORY: Grade 2 diastolic dysfunction. Moderate left ventricular hypertrophy. Pulmonary arterial hypertension. Cirrhosis. Metabolic encephalopathy history. Hyperparathyroidism. Chronic anemia. Hypertension. 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 Charcot foot deformity bilateral. Hypothyroidism. Anxiety. Gastroesophageal reflux disease. Restless leg syndrome. Coronary artery disease. Surgical amputations of toes. PAST SURGICAL HISTORY: Arteriovenous fistula left side. DICTATION ENDS AT THIS POINT. [facility]
--- NOTE | 2019-03-24 09:23 | CR ---
DATE OF CONSULTATION: 03/23/2019 CHIEF COMPLAINT: 68-year-old female seen for evaluation of a worsening ulcer of her left foot. The patient states her foot is becoming more painful. She has noticed a blister extending into t the front of her foot as well as enlargement of the blister on the plantar surface of her foot. She is seen today for evaluation. HOME MEDICATIONS: - calcium carbonate 500 mg by mouth - clopidogrel 75 mg by mouth daily - duloxetine 30 mg capsule daily - gabapentin 100 mg capsules 300 mg by mouth twice a day - hydralazine 25 mg as needed three times a day - Levemir - Humalog - levothyroxine 125 mcg daily - losartan potassium 50 mg tablets daily - metoprolol succinate 50 mg tablets by mouth twice a day - pantoprazole sodium 40 mg by mouth daily - ropinirole 2 mg tablets, two by mouth twice a day - Silvadene topical to the left wound ulcer twice a day - simvastatin 20 mg nightly - sucroferric oxyhydroxide 500 mg tablets - trazodone 100 mg tablets, two by mouth nightly - oxycodone 5/325 one by mouth daily as needed for pain - alprazolam 0.25 mg by mouth twice a day daily for anxiety ALLERGIES: PREGABALIN. PAST MEDICAL HISTORY: Grade 2 diastolic dysfunction. Moderate left ventricular hypertrophy. Pulmonary arterial hypertension. Cirrhosis. Metabolic encephalopathy history. Hyperparathyroidism. Chronic anemia. Hypertension. 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 Charcot foot deformity bilateral. Hypothyroidism. Anxiety. Gastroesophageal reflux disease. Restless leg syndrome. Coronary artery disease with stents. PAST SURGICAL HISTORY: Incision and drainage and amputations of digits bilateral. Coronary stents. Arteriovenous fistula left arm. Appendectomy. Hysterectomy. Bilateral cataracts. Evaluation of the patient's foot reveals an ulceration present on the plantar surface measuring medial to lateral 10 cm, measuring distal to proximal 4 cm. It is approximately 6 mm in depth with a small area measuring 1 cm on the medial margin. The plantar fascia is visible in the wound with some necrotic tissue and a discharge. After informed consent was obtained, and an appropriate time-out, utilizing a sterile curet and dissection scissors, the plantar fascia was debrided it its necrotic tissue as well as the incisional debridement of the skin and subcutaneous tissues with a curet. The plantar fascial and necrotic tissue was sent to aerobic and anaerobic cultures. The wound was cleansed with wound hat cleaner followed by application of a sterile dressing. Orders were written for an MRI of the left extremity without contrast. Patient's film x-rays of her left foot are negative for osteomyelitis. Patient's questions were answered.
[2019-03-24] MEDS ORDERED: IRON SUCROSE 100MG 5ML VIAL (J1756 PER 1MG) IV SCH (10:30)
[2019-03-24] MEDS ORDERED: HEPARIN 1,000 UNITS/ML 10ML VIAL (FOR RADIOLOGY& DIALYSIS ONLY) IV ONE (11:30)
[2019-03-24] MEDS ORDERED: LIDOCAINE 1% SDV 5 ML VIAL SQ ONE (11:30)
[2019-03-24 14:00] VITALS: BP 115/52
--- NOTE | 2019-03-24 14:06 | IPNPDOC ---
Subjective Date Seen The patient was seen on 03/24/19. Subjective Chief Complaint/HPI Patient seen and examined at bedside. She was seen and evaluated by podiatry yesterday, also had paracentesis done. Denies any acute complaints at this time. Objective Physical Examination General Exam: Positive: Alert, Cooperative, No Acute Distress ENT Exam: Positive: Atraumatic, Mucous membr. moist/pink Chest Exam: Positive: Diminished Heart Exam: Positive: Rate Normal, Normal S1, Normal S2 Abdomen Exam: Positive: Soft; Negative: Tenderness Extremity Exam: Negative: Tenderness Assessment /Plan Plan/VTE VTE Prophylaxis Ordered?: Yes Plan Cellulitis of LLE 2/2 infected chronic wound Imaging is negative for osteomyelitis, which she does have a hx of and is s/p amputations Follows with Dr. Baeza,who has been consulted here. s/p I&D. MRI of the Foot ordered for further evaluation Cultures unrevealing thus far Continue renally-dosed IV Vanco and Zosyn and trend CRP WBC trending downward Will f/u with Podiatry recommendations ESRD on HD MWF History of noncompliance with dialysis Nephrology on board HFpEF, grade II diastolic dysfxn volume optimization via Dialysis as per Nephrology Hx of Liver Cirrhosis s/p paracentesis on 03/23 with removal of 8.2L of fluid CAD s/p 4 stents Continue ASA, Plavix, Statin, BBlocker IDDM2, Charcot foot Cont insulin regimen as ordered Hx of Non-compliance Complicating medical care HTN Continue meds as ordered Hypothyroidism Continue Synthroid Anxiety/Insomnia Continue home meds GERD Continue Protonix Restless Leg Syndrome Cont ropinirole DVT ppx: heparin sc VS, I&O, 24H, Fishbone Vital Signs/I&O Vital Signs Date Time Temp Pulse Resp B/P (MAP) Pulse Ox O2 Delivery O2 Flow Rate FiO2 03/24/19 06:00 99.5 86 18 126/66 (86) 92 03/22/19 13:50 2.0 03/22/19 06:14 Nasal Cannula I&O- Last 24 Hours up to 6 AM 03/24/19 06:00 Intake Total 1180 ml Balance 1180 ml Laboratory Data 24H LABS Laboratory Tests 2 03/23/19 17:00: Bedside Glucose (Misc Panel) 321H 03/23/19 20:26: Bedside Glucose (Misc Panel) 329H 03/24/19 06:21: Nucleated Red Blood Cells % (auto) 0.0, Anion Gap 11, Glomerular Filtration Rate 6.5L, Blood Urea Nitrogen 72H, Creatinine 6.66H, Sodium Level 137, Potassium Level 4.8, Chloride Level 102, Carbon Dioxide Level 24, Calcium Level 6.2L, Iron Level 16L, Total Iron Binding Capacity 106L, Transferrin % Saturation 15.1, Ferritin 458H, C-Reactive Protein, Quantitative 14.60H 03/24/19 12:47: Bedside Glucose (Misc Panel) 121H CBC/BMP Laboratory Tests 03/24/19 06:21 Red Blood Count 3.21 L, Mean Corpuscular Volume 91.0, Mean Corpuscular Hemoglobin 27.4, Mean Corpuscular Hemoglobin Concent 30.1 L, Red Cell Distribution Width 17.9 H, Calcium Level 6.2 L Microbiology Microbiology 03/21/19 Blood Culture - Preliminary, Resulted No Growth after 48 hours. All Specime... 03/21/19 Blood Culture - Preliminary, Resulted No Growth after 48 hours. All Specime... 03/23/19 Anaerobic Culture, Received Pending 03/21/19 Gram Stain - Final, Complete 03/21/19 Wound Culture - Final, Complete Enterobacter Cloacae Complex Staphylococcus Aureus Staph.aureus Methicillin Resis JENISE JAIME MD Mar 24, 2019 14:06
[2019-03-24] MEDS: SANTYL OINT 30GM TOP SCH (14:55)
[2019-03-24] MEDS: EUCERIN 120GM CREAM TOP SCH ×2 (14:56→22:28)
[2019-03-24] MEDS: DIAPER RELIEF PASTE (DESITIN) 60GM TOP SCH (14:56)
[2019-03-24] MEDS: CLOPIDOGREL 75 MG TAB PO SCH (14:59)
[2019-03-24] MEDS: PERCOCET 5MG/325MG TAB PO PRN (15:05)
[2019-03-24] MEDS: VANCOMYCIN HCL 1,000 MG, VIAL MATE ADAPTER 1 EACH in D5W 250 ML IV SCH ×2 (15:42→18:07)
[2019-03-24] MEDS: **VANCO AFTER HD** MISC XX SCH ×2 (15:42→16:00)
[2019-03-24 22:00] VITALS: BP 126/58
[2019-03-24] MEDS: rOPINIRole 1MG TAB PO SCH (22:26)
[2019-03-24] MEDS: SIMVASTATIN 20 MG TAB PO SCH (22:27)
[2019-03-24] MEDS: LEVEMIR (INSULIN DETEMIR) 1 UNITS/0.01ML SC SCH (22:28)
[2019-03-24] MEDS: ACETAMINOPHEN TAB 650MG DOSE (2X325MG) PO PRN (23:38)
[2019-03-25] MEDS: PERCOCET 5MG/325MG TAB PO PRN ×2 (02:59→16:44)
[2019-03-25] MEDS: PIPERACILLIN/TAZOBACTAM SOD 2.25 GM in D5W MINI-BAG PLUS 50 ML IV SCH (04:17)
[2019-03-25] MEDS: LEVOTHYROXINE 125MCG TABLET (0.125MG) PO SCH (05:58)
[2019-03-25 06:00] VITALS: BP 119/55
[2019-03-25 07:02] LABS: HEMATOCRIT 30.3 % (36.0-47.0); MEAN CORPUSCULAR HEMOGLOBIN 27.1 pg (27.0-33.0); MEAN CORPUSCULAR HGB CONC 29.7 g/dl (32.0-36.5); MEAN CORPUSCULAR VOLUME 91.3 fl (80.0-96.0); PLATELET COUNT, AUTOMATED 202 10^3/uL (150-450); RED BLOOD COUNT 3.32 10^6/uL (4.00-5.40); WHITE BLOOD COUNT 17.1 10^3/uL (4.0-10.0)
[2019-03-25 07:22] LABS: CALCIUM LEVEL 6.5 MG/DL (8.8-10.2); CREATININE FOR GFR 5.01 MG/DL (0.55-1.30); GLOMERULAR FILTRATION RATE 9.1 (>39)
[2019-03-25] MEDS: SUCROFERRIC OXYHYDROXIDE 500MG CHEW TAB (VELPHORO) PO SCH (08:00)
[2019-03-25] MEDS: HumaLOG INSULIN (NovoLOG) PER UNIT SC SCH ×4 (08:10→20:54)
[2019-03-25] MEDS: DULoxetine 30 MG CAP (CYMBALTA) PO SCH (08:10)
[2019-03-25] MEDS: METOPROLOL SUCC *XL* 25MG TAB (TopROL *XL*) PO SCH ×2 (08:10→20:53)
[2019-03-25] MEDS: PANTOPRAZOLE 40MG TAB (PROTONIX) PO SCH (08:11)
[2019-03-25] MEDS: CALCIUM CARBONATE 500 MG CHEW U/D PO SCH ×3 (08:11→17:57)
[2019-03-25] MEDS: GABAPENTIN 300 MG CAP PO SCH ×2 (08:11→20:52)
[2019-03-25] MEDS: CLOPIDOGREL 75 MG TAB PO SCH (08:11)
[2019-03-25] MEDS: HEPARIN SOD (PORCINE) 5000 UNITS/ML VIAL SC SCH ×2 (08:11→20:54)
[2019-03-25] MEDS: DIAPER RELIEF PASTE (DESITIN) 60GM TOP SCH (08:12)
[2019-03-25] MEDS: EUCERIN 120GM CREAM TOP SCH ×2 (08:12→20:51)
[2019-03-25] MEDS: SANTYL OINT 30GM TOP SCH (08:12)
--- NOTE | 2019-03-25 11:18 | IPN ---
DATE OF SERVICE: 03/23/2019 SUBJECTIVE: Dalila is seen and examined this morning at the bedside eating lunch. She denies any acute overnight events or issues. Complains of a significant pain in her foot. She is pending paracentesis, and she is off of her maintenance dialysis schedule. She complains of abdominal distention and fluid retention. VITAL SIGNS: Temperature 98.0, pulse 70, respiratory rate 20, blood pressure 112/62, saturating 95% on room air. Intake yesterday was 1360. Dialysis yesterday removed 1500. Weight in the bed scale today is 86.7 kg. GENERAL: The patient is seen sitting at the edge of the bed, legs dangling, eating lunch. Awake, alert, oriented times three. In no distress. Extraocular muscles are intact. Tongue is moist. Jugular veins are elevated. Heart sounds are regular. S1, S2. LUNGS: Show diminished breath sounds at the bases. Otherwise, clear. ABDOMEN: Is soft. There is ascitic fluid in place, and the belly is distended with the same. The lower extremities show 2+ pitting edema that extends up to the hip, thigh, and dependent areas. The left foot wound is dressed, and there is a fistula in the left upper extremity that is patent with thrill and bruit. NEUROLOGIC: She is oriented times three at baseline mentation. LABORATORIES: White count 16, hemoglobin 10.0. Sodium 136, potassium 4.5. C-reactive protein (CRP) 17. Paracentesis today removed 8.2 liters. INPATIENT MEDICATIONS: Reviewed by me. She received albumin with her paracentesis. The remainder of medications are unchanged from prior. PROBLEMS: 1. End-stage renal disease on hemodialysis on a Tuesday, Tuesday, Tuesday maintenance schedule. She is off of her maintenance schedule. She was dialyzed yesterday. Only 1.5 liters of fluid could be removed because of her borderline blood pressures. I have cut back on her antihypertensive medication. I did not dialyze her today, as she had a paracentesis scheduled (8.2 liters were removed. We will dialyze her next on Tuesday. She is fluid overloaded. Compliance with dialysis as an outpatient has been poor. 2. Diastolic congestive heart failure with exacerbation. The patient is volume overloaded. She missed two dialysis sessions. She is for paracentesis today. She will be dialyzed tomorrow. Continue with oral fluid restriction. Unfortunately, she is chronically volume overloaded due to her poor compliance with dialysis. 3. Hypertension. Blood pressures are lower than her usual baseline. I have discontinued her losartan, and I have also reduced the dose of her beta jeffrey and added generous holding parameters. 4. Anemia related to inflammation, iron deficiency, and chronic renal failure, as well as the component of hemodilution from fluid overload. Hemoglobin has improved, and there is no further intervention needed at present. Continue with the Berny and Bernard with dialysis. 5. Cellulitis of the left lower extremity. The patient is on renally-dosed vancomycin and Zosyn. C-reactive protein (CRP) is slowly downtrending. She is due to be evaluated further by podiatry.
[2019-03-25 13:41] LABS: PHOSPHORUS LEVEL 3.7 MG/DL (2.5-4.9)
--- NOTE | 2019-03-25 13:44 | IPN ---
DATE OF SERVICE: 03/24/2019 SUBJECTIVE: The patient was seen and examined at the bedside today morning during hemodialysis. She is drowsy and sleepy. She was hypotensive during dialysis. So, her ultrafiltration goal was reduced. She also got paracentesis done yesterday. 8.2 liters of fluid was removed. She still has significant edema, but because of the low blood pressures, the ultrafiltration goal is only 1 liter today. OBJECTIVE: Vital signs: Temperature 99.5 degrees Fahrenheit, blood pressure before dialysis was 126/66, pulse 86, respiratory rate of 18, saturating 92% on room air. Intake and output: Urine output is not recorded. Weight in the bed scale is 82.1 kg. PHYSICAL EXAMINATION: General: The patient is drowsy and sleepy, laying in bed, getting hemodialysis done. Head and neck examination: Extraocular muscles intact. Pupils equally round and reactive to light. Mucous membranes are moist. Neck is supple. There is no jugular venous distention (JVD). Cardiovascular: S1, S2. 2+ edema of the bilateral lower extremities. Respiratory: Mildly decreased breath sounds at the bases. Otherwise ,no active rales or rhonchi. Abdomen is soft, distended, with abdominal wall edema. Mild amount of dullness to percussion in the flanks. Musculoskeletal: She has a dressing on the left foot. Edema of the bilateral lower extremities, as mentioned above. Central nervous system (ACTIVITY MANAGER): The patient is drowsy and sleepy. Otherwise, she was extremities and follows commands. LABORATORY REVIEW: Complete blood count (CBC) showed a WBC of 16.1, hemoglobin 8.8, platelets are 198. Basic metabolic profile (BMP) showed a sodium 137, potassium 4.8, chloride 102, bicarbonate 24, BUN 72, creatinine is 6.6, iron is 16, TIBC is 106, transferrin saturation is 15%, ferritin is 458, C-reactive protein is 14.6. MICROBIOLOGY: Blood cultures are negative so far. IMAGING: An MRI of the foot was done today. Official report is pending. CURRENT INPATIENT MEDICATIONS: The patient's medications were all reviewed by me. She continues to been intravenous (IV) vancomycin and Zosyn. I have started her on IV Venofer 100 mg with each dialysis because of low iron levels. No other change in the medications today as compared with yesterday. ASSESSMENT AND PLAN: 1. End-stage renal disease, on hemodialysis. The patient's regular dialysis days are Tuesday, Tuesday, Tuesday. However, because she missed dialysis during inpatient, her schedule is Tuesday, , Tuesday at this point. She will be switched back to Tuesday, Tuesday, Tuesday schedule next week. Ultrafiltration goal is 1 liter today because she is hypotensive. She got paracentesis done yesterday. 2. Anemia secondary to end-stage renal disease. The patient is on Aranesp. However, her iron levels are low. She has been started on Venofer 100 mg IV with hemodialysis. 3. Decompensated diastolic congestive heart failure. The patient has significant lower extremity edema, and she has ascites, as well. Because of low blood pressure, her ultrafiltration (UF) goal has been reduced to 1 liter only today. Continue the fluid restriction. 4. Recurrent ascites. The patient got ascitic tap done yesterday. 8.2 liters of fluid was removed. 5. History of hypertension. The patient is hypotensive now with dialysis and paracentesis. Her antihypertensive medications are being reduced.
[2019-03-25 14:00] VITALS: BP 122/58
[2019-03-25] MEDS: **VANCO AFTER HD** MISC XX SCH (14:24)
--- NOTE | 2019-03-25 14:33 | IPNPDOC ---
Subjective Date Seen The patient was seen on 03/25/19. Subjective Chief Complaint/HPI Patient seen and examined the bedside. No acute overnight events noted. She did lose her IV access, and nursing staff has been unable to get another one. Objective Physical Examination General Exam: Positive: Alert, Cooperative, No Acute Distress ENT Exam: Positive: Atraumatic, Mucous membr. moist/pink Chest Exam: Positive: Diminished Heart Exam: Positive: Rate Normal, Normal S1, Normal S2 Abdomen Exam: Positive: Soft; Negative: Tenderness Extremity Exam: Positive: Swelling (2+ pitting edema in the lower extremities bilaterally); Negative: Tenderness Psych Exam: Positive: Oriented x 3 Assessment /Plan Plan/VTE VTE Prophylaxis Ordered?: Yes Plan Cellulitis of LLE 2/2 infected chronic wound XR Imaging was negative for osteomyelitis, which she does have a hx of and is s/p amputations Follows with Dr. Baeza,who has been consulted here. s/p Drainage of the foot. MRI of the Foot report pending Wound culture noted IV Vanco and Zosyn transitioned to PO Clindamycin and Levaquin based on culture susceptibilities, we may need to get a PICC Line and start back on IV Abx if MRI reveals underlying osteo WBC remains elevated Will f/u with Podiatry recommendations ESRD on HD MWF History of noncompliance with dialysis Nephrology on board HFpEF, grade II diastolic dysfxn volume optimization via Dialysis as per Nephrology Hx of Liver Cirrhosis s/p paracentesis on 03/23 with removal of 8.2L of fluid CAD s/p 4 stents Continue ASA, Plavix, Statin, BBlocker IDDM2, Charcot foot Cont insulin regimen as ordered Hx of Non-compliance Complicating medical care HTN Continue meds as ordered Hypothyroidism Continue Synthroid Anxiety/Insomnia Continue home meds GERD Continue Protonix Restless Leg Syndrome Cont ropinirole DVT ppx: heparin sc VS, I&O, 24H, Fishbone Vital Signs/I&O Vital Signs Date Time Temp Pulse Resp B/P (MAP) Pulse Ox O2 Delivery O2 Flow Rate FiO2 03/25/19 08:10 66 119/55 03/25/19 06:00 98.8 18 93 03/22/19 13:50 2.0 03/22/19 06:14 Nasal Cannula I&O- Last 24 Hours up to 6 AM 03/25/19 06:00 Intake Total 1200 ml Output Total 1000 ml Balance 200 ml Laboratory Data 24H LABS Laboratory Tests 2 03/24/19 16:46: Bedside Glucose (Misc Panel) 217H 03/24/19 19:49: Bedside Glucose (Misc Panel) 305H 03/25/19 06:18: Nucleated Red Blood Cells % (auto) 0.3H, Anion Gap 6L, Glomerular Filtration Rate 9.1L, Blood Urea Nitrogen 48H, Creatinine 5.01H, Sodium Level 136, Potassium Level 4.0, Chloride Level 102, Carbon Dioxide Level 28, Calcium Level 6.5L, Phosphorus Level 3.7 03/25/19 11:59: Bedside Glucose (Misc Panel) 287H CBC/BMP Laboratory Tests 03/25/19 06:18 Red Blood Count 3.32 L, Mean Corpuscular Volume 91.3, Mean Corpuscular Hemoglobin 27.1, Mean Corpuscular Hemoglobin Concent 29.7 L, Red Cell Di stribution Width 18.1 H, Calcium Level 6.5 L Microbiology Microbiology 03/21/19 Blood Culture - Preliminary, Resulted No Growth after 72 hours. All specime... 03/21/19 Blood Culture - Preliminary, Resulted No Growth after 72 hours. All specime... 03/23/19 Anaerobic Culture, Received Pending 03/21/19 Gram Stain - Final, Complete 03/21/19 Wound Culture - Final, Complete Enterobacter Cloacae Complex Staphylococcus Aureus Staph.aureus Methicillin Resis JENISE JAIME MD Mar 25, 2019 14:33
[2019-03-25] MEDS ORDERED: LevoFLOXacin 500 MG TABLET PO ONE (16:00)
[2019-03-25] MEDS: CLINDAMYCIN 150 MG CAP PO SCH ×2 (17:56→20:52)
[2019-03-25] MEDS: SIMVASTATIN 20 MG TAB PO SCH (20:52)
[2019-03-25] MEDS: rOPINIRole 1MG TAB PO SCH (20:52)
[2019-03-25] MEDS: LEVEMIR (INSULIN DETEMIR) 1 UNITS/0.01ML SC SCH (20:54)
[2019-03-25 22:00] VITALS: BP 136/63
[2019-03-26] MEDS: PERCOCET 5MG/325MG TAB PO PRN ×3 (00:59→17:21)
[2019-03-26] MEDS: PANTOPRAZOLE 40MG TAB (PROTONIX) PO SCH (05:41)
[2019-03-26] MEDS: CLINDAMYCIN 150 MG CAP PO SCH ×4 (05:42→22:47)
[2019-03-26] MEDS: CALCIUM CARBONATE 500 MG CHEW U/D PO SCH ×3 (05:42→17:20)
[2019-03-26] MEDS: GABAPENTIN 300 MG CAP PO SCH ×2 (05:42→22:51)
[2019-03-26] MEDS: LEVOTHYROXINE 125MCG TABLET (0.125MG) PO SCH (05:42)
[2019-03-26] MEDS: CLOPIDOGREL 75 MG TAB PO SCH (05:42)
[2019-03-26] MEDS: DULoxetine 30 MG CAP (CYMBALTA) PO SCH (05:42)
[2019-03-26] MEDS: HEPARIN SOD (PORCINE) 5000 UNITS/ML VIAL SC SCH ×2 (05:43→22:49)
[2019-03-26 05:48] LABS: HEMATOCRIT 30.6 % (36.0-47.0); HEMOGLOBIN 9.3 g/dl (12.0-15.5); MEAN CORPUSCULAR HEMOGLOBIN 27.3 pg (27.0-33.0); MEAN CORPUSCULAR HGB CONC 30.4 g/dl (32.0-36.5); MEAN CORPUSCULAR VOLUME 89.7 fl (80.0-96.0); PLATELET COUNT, AUTOMATED 210 10^3/uL (150-450); RED BLOOD COUNT 3.41 10^6/uL (4.00-5.40); WHITE BLOOD COUNT 15.5 10^3/uL (4.0-10.0)
[2019-03-26 06:00] VITALS: BP 101/52
[2019-03-26] MEDS: METOPROLOL SUCC *XL* 25MG TAB (TopROL *XL*) PO SCH ×2 (06:04→22:48)
[2019-03-26 06:14] LABS: CALCIUM LEVEL 6.6 MG/DL (8.8-10.2); CREATININE FOR GFR 5.82 MG/DL (0.55-1.30); GLOMERULAR FILTRATION RATE 7.6 (>39); POTASSIUM SERUM 4.1 MEQ/L (3.5-5.1)
[2019-03-26] MEDS: EUCERIN 120GM CREAM TOP SCH ×2 (07:54→22:50)
[2019-03-26] MEDS: DIAPER RELIEF PASTE (DESITIN) 60GM TOP SCH (07:54)
[2019-03-26] MEDS: HumaLOG INSULIN (NovoLOG) PER UNIT SC SCH ×4 (07:54→22:50)
[2019-03-26] MEDS: SANTYL OINT 30GM TOP SCH (07:54)
--- NOTE | 2019-03-26 10:17 | REP ---
MRI LEFT FOOT WITHOUT CONTRAST: Multiple sequences were obtained in the axial, coronal and sagittal planes. Comparison is made with prior study of 09/04/2018. There are again findings of Charcot foot. Diffuse subchondral marrow is seen involving the distal tibia and fibula as well as the tarsal bones. I do not see definite evidence of acute osteomyelitis. There is again angulation of the distal talus to the plantar aspect of the foot. 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 Mild chronic erosive changes are seen of the tarsal bones. There has been prior amputation at the second and third proximal interphalangeal joints. Large joint effusion is seen at the tibiotalar joint. In addition there is a large loculated fluid collection centered between the second and third metatarsals, surrounding the shafts of the metatarsals and extending into the adjacent dorsal and plantar soft tissues. Fluid extends around the flexor tendons of the foot at the level of the metatarsals. There may be foci of air in the collection and therefore this may represent a large abscess. This measures about 7.0 x 3.7 x 3.3 cm. There is diffuse soft tissue edema throughout the foot and I suspect diffuse cellulitis. There is mild ill-defined fluid surrounding the flexor tendons at the level of the first metatarsal. IMPRESSION: Once again there are findings are Charcot foot which appear unchanged compared to the prior study of 09/04/2018. Diffuse subchondral marrow edema is seen in the distal tibia and fibula as well as the tarsal bones, unchanged. No definite acute osteomyelitis. Diffuse edema and probable cellulitis. Large joint effusion at the tibiotalar joint. Complex fluid collection centered between the second and third metatarsals extends into the plantar soft-tissues along the flexor tendons and also extends into the dorsal soft-tissues. There may be internal foci or air and therefore this may represent an abscess. Electronically Signed by Aureliano Rivas MD 03/26/2019 04:22 P
--- NOTE | 2019-03-26 14:22 | IPNPDOC ---
Subjective Date Seen The patient was seen on 03/26/19. Subjective Chief Complaint/HPI Patient seen and examined at bedside. Reports that she has had chronic left foot pain. Otherwise, notes that she feels better following dialysis and abdominal paracentesis. Objective Physical Examination General Exam: Positive: Alert, Cooperative, No Acute Distress ENT Exam: Positive: Atraumatic, Mucous membr. moist/pink Chest Exam: Positive: Diminished Heart Exam: Positive: Rate Normal, Normal S1, Normal S2 Abdomen Exam: Positive: Soft; Negative: Tenderness Extremity Exam: Positive: Swelling (2+ pitting edema in the lower extremities bilaterally,); Negative: Tenderness Skin Exam: Positive: Other skin issue (left foot noted to be wrapped in surgical dressing.) Psych Exam: Positive: Oriented x 3 A-FIB/CHADSVASC A-FIB History Current/History of A-Fib/PAF?: No Assessment /Plan Plan/VTE VTE Prophylaxis Ordered?: Yes Plan Cellulitis of LLE 2/2 infected chronic wound XR Imaging was negative for osteomyelitis, which she does have a hx of and is s/p amputations Follows with Dr. Baeza,who has been consulted here. s/p Drainage of the foot. MRI of the Foot done on 03/24/19 revealed no definitive findings of acute osteomy elitis. Diffuse edema and probable cellulitis with possible abscess noted between the second and third metatarsals.--I did discuss these results with Dr. Baeza via telephone and he did debride that area with fluid collection mentioned between the second and third metatarsals. We will continue the patient on Abx therapy as mentioned below PO Clindamycin and Levaquin based on culture susceptibilities WBC downward trending Will f/u with Podiatry recommendations ESRD on HD MWF History of noncompliance with dialysis Nephrology on board HFpEF, grade II diastolic dysfxn volume optimization via Dialysis as per Nephrology Hx of Liver Cirrhosis s/p paracentesis on 03/23 with removal of 8.2L of fluid CAD s/p 4 stents Continue ASA, Plavix, Statin, BBlocker IDDM2, Charcot foot Cont insulin regimen as ordered Hx of Non-compliance Complicating medical care HTN Continue meds as ordered Hypothyroidism Continue Synthroid Anxiety/Insomnia Continue home meds GERD Continue Protonix Restless Leg Syndrome Cont ropinirole DVT ppx: heparin sc VS, I&O, 24H, Fishbone Vital Signs/I&O Vital Signs Date Time Temp Pulse Resp B/P (MAP) Pulse Ox O2 Delivery O2 Flow Rate FiO2 03/26/19 08:25 18 03/26/19 06:04 75 101/52 03/26/19 06:00 98.7 94 03/22/19 13:50 2.0 03/22/19 06:14 Nasal Cannula I&O- Last 24 Hours up to 6 AM 03/26/19 06:00 Intake Total 1310 ml Balance 1310 ml Laboratory Data 24H LABS Laboratory Tests 2 03/25/19 16:59: Bedside Glucose (Misc Panel) 371H 03/25/19 20:40: Bedside Glucose (Misc Panel) 337H 03/26/19 05:37: Nucleated Red Blood Cells % (auto) 0.3H, Anion Gap 8, Glomerular Filtration Rate 7.6L, Blood Urea Nitrogen 62H, Creatinine 5.82H, Sodium Level 135L, Potassium Level 4.1, Chloride Level 101, Carbon Dioxide Level 26, Calcium Level 6.6L 03/26/19 11:21: Bedside Glucose (Misc Panel) 172H CBC/BMP Laboratory Tests 03/26/19 05:37 Red Blood Count 3.41 L, Mean Corpuscular Volume 89.7, Mean Corpuscular Hemoglobin 27.3, Mean Corpuscular Hemoglobin Concent 30.4 L, Red Cell Distribution Width 17.9 H, Calcium Level 6.6 L Microbiology Microbiology 03/21/19 Blood Culture - Preliminary, Resulted No Growth after 72 hours. All specime... 03/21/19 Blood Culture - Preliminary, Resulted No Growth after 72 hours. All specime... 03/23/19 Anaerobic Culture - Final, Complete 03/21/19 Gram Stain - Final, Complete 03/21/19 Wound Culture - Final, Complete Enterobacter Cloacae Complex Staphylococcus Aureus Staph.aureus Methicillin Resis JENISE JAIME MD Mar 26, 2019 14:22
[2019-03-26 22:00] VITALS: BP 132/63
[2019-03-26] MEDS: traZODone 100 MG TAB PO PRN (22:47)
[2019-03-26] MEDS: rOPINIRole 1MG TAB PO SCH (22:48)
[2019-03-26] MEDS: SIMVASTATIN 20 MG TAB PO SCH (22:48)
[2019-03-26] MEDS: LEVEMIR (INSULIN DETEMIR) 1 UNITS/0.01ML SC SCH (22:50)
[2019-03-27] VITALS (7 sets, daily range): BP systolic 115–153; BP diastolic 61–72
[2019-03-27] MEDS: PERCOCET 5MG/325MG TAB PO PRN ×4 (01:54→23:58)
[2019-03-27] MEDS: LEVOTHYROXINE 125MCG TABLET (0.125MG) PO SCH (05:31)
[2019-03-27 06:53] LABS: HEMATOCRIT 30.8 % (36.0-47.0); HEMOGLOBIN 9.2 g/dl (12.0-15.5); MEAN CORPUSCULAR HEMOGLOBIN 27.3 pg (27.0-33.0); MEAN CORPUSCULAR HGB CONC 29.9 g/dl (32.0-36.5); MEAN CORPUSCULAR VOLUME 91.4 fl (80.0-96.0); PLATELET COUNT, AUTOMATED 164 10^3/uL (150-450); RED BLOOD COUNT 3.37 10^6/uL (4.00-5.40); WHITE BLOOD COUNT 9.3 10^3/uL (4.0-10.0)
--- NOTE | 2019-03-27 07:10 | IPN ---
DATE OF VISIT: 03/25/2019 SUBJECTIVE: The patient was seen and examined on the bedside today morning. She is awake and alert. She was dialyzed yesterday. She tolerated the hemodialysis procedure. However, her blood pressures were low, so only one liter of fluid was removed. The patient reports that she does not like the Velphoro phosphorus binders and she refused to take it. OBJECTIVE: VITAL SIGNS: Temperature is 97.8 degrees Fahrenheit, blood pressure 122/58, pulse is 83, respiratory rate of 18, saturating 92% on room air. Intake and output: Ultrafiltration with hemodialysis was 1 liter yesterday. Weight in the bed scale is 98.9 kg which is not reliable because there is a 16 kg difference from yesterday. PHYSICAL EXAMINATION: GENERAL: The patient is awake, alert, oriented times three. She is laying in bed in no apparent distress. HEENT/NECK: Extraocular muscles intact. Pupils equally round and reactive to light. Mucous membranes are moist. Neck is supple. There is no jugular venous distention (JVD). CARDIOVASCULAR: S1, S2, 2+ edema of the bilateral lower extremities. RESPIRATORY: Mildly decreased breath sounds at the bases, otherwise no active rales or rhonchi. ABDOMEN: Soft, distended with abdominal wall edema and a moderate amount of dullness to percussion in the flanks. MUSCULOSKELETAL: She has a large dressing on the left foot. Edema of the bilateral lower extremities as noted above. CENTRAL NERVOUS SYSTEM ([employer]): No focal deficit, power is 5/5 in bilateral upper extremities. Arteriovenous access: She has a fistula in the left forearm with positive thrill and bruit. LABORATORY DATA: CBC showed WBC of 217.1, hemoglobin is 9, platelets of 202. Basic metabolic profile (BMP) shows sodium 136, potassium 4, chloride 102, bicarb 28, BUN 48, creatinine is 5. IMAGING STUDIES: MRI of the foot was done, official report is pending. CURRENT INPATIENT MEDICATIONS: The patient's medications were all reviewed by me: Her Velphoro has been stopped. She continues to be on intravenous (IV) vancomycin and Zosyn. I have increased her TUMS dose to 1 gram by mouth three times a day with meals. She has also been started on oral clindamycin starting tonight and Levaquin 250 mg by mouth every 48 hourly. ASSESSMENT/PLAN: 1. End-stage renal disease on hemodialysis. The patient's regular dialysis days are Tuesday, Tuesday, Tuesday. She was off schedule and she was dialyzed yesterday. Next hemodialysis with be done tomorrow to put her back onto a regular schedule. 2. Anemia secondary to end-stage renal disease. The patient continues to be on Aranesp and IV Venofer. Hemoglobin is nicely improved to 9. Continue to monitor for now. 3. Decompensated diastolic congestive heart failure. The patient still has lower extremity edema and recurrent ascites as well. Because of low blood pressures only one liter of fluid was removed. Further fluid removal be done tomorrow with dialysis. 4. Recurrent ascites. The patient got the ascites tap done two days ago. If needed. I would change her ascites tap to once a week instead of once every two weeks. 5. Left foot infection. The patient is currently on IV vancomycin and Zosyn. I see that the primary team is putting her back on to an oral regimen including clindamycin and Levaquin. The rest of the medications is as per podiatry and her primary team.
[2019-03-27 07:19] LABS: CALCIUM LEVEL 7.3 MG/DL (8.8-10.2); CREATININE FOR GFR 4.45 MG/DL (0.55-1.30); GLOMERULAR FILTRATION RATE 10.4 (>39); POTASSIUM SERUM 4.5 MEQ/L (3.5-5.1)
[2019-03-27] MEDS: CALCIUM CARBONATE 500 MG CHEW U/D PO SCH ×3 (08:00→17:34)
[2019-03-27] MEDS: METOPROLOL SUCC *XL* 25MG TAB (TopROL *XL*) PO SCH ×2 (08:27→21:45)
[2019-03-27] MEDS: HEPARIN SOD (PORCINE) 5000 UNITS/ML VIAL SC SCH ×2 (08:27→21:00)
[2019-03-27] MEDS: HumaLOG INSULIN (NovoLOG) PER UNIT SC SCH ×4 (08:27→21:47)
[2019-03-27] MEDS: GABAPENTIN 300 MG CAP PO SCH ×2 (08:28→21:45)
[2019-03-27] MEDS: CLINDAMYCIN 150 MG CAP PO SCH ×4 (08:28→21:46)
[2019-03-27] MEDS: CLOPIDOGREL 75 MG TAB PO SCH ×2 (08:29→09:00)
[2019-03-27] MEDS: PANTOPRAZOLE 40MG TAB (PROTONIX) PO SCH (08:30)
[2019-03-27] MEDS: DULoxetine 30 MG CAP (CYMBALTA) PO SCH (08:30)
[2019-03-27] MEDS: EUCERIN 120GM CREAM TOP SCH ×2 (09:00→21:46)
[2019-03-27] MEDS: DIAPER RELIEF PASTE (DESITIN) 60GM TOP SCH (09:00)
[2019-03-27] MEDS ORDERED: LevoFLOXacin 250 MG TABLET PO SCH (09:00)
[2019-03-27] MEDS: SANTYL OINT 30GM TOP SCH (09:00)
--- NOTE | 2019-03-27 10:55 | IPN ---
DATE: 03/26/2019 SUBJECTIVE: The patient was seen and examined at the bedside today morning. She is afebrile, hemodynamically stable. She reports persistent abdominal distension and abdominal wall edema. She also reports left foot pain. She got the MRI of the left foot done, which showed no osteomyelitis, but possible swelling and abscess in the left foot. OBJECTIVE: VITAL SIGNS: Temperature is 98.7 degrees Fahrenheit, blood pressure 101/52, pulse is 75, respiratory rate of 18, saturating 94% on room air. INTAKE AND OUTPUT: Urine output is not recorded. Weight in the bed scale is 84.6 kg. PHYSICAL EXAMINATION: GENERAL: Patient is awake, alert, oriented times three, laying in bed, no apparent distress. HEAD AND NECK EXAM: Extraocular muscles intact. Pupils equally reactive to light. Mucous membranes are moist. Neck is supple. There is no jugular venous distention (JVD). CARDIOVASCULAR: S1, S2. 2+ edema of the bilateral lower extremities. RESPIRATORY: Chest is clear to auscultation bilaterally. Bilateral equal air entry. No rales or rhonchi. ABDOMEN: Distended with abdominal wall edema, which is worse on the right side. She had dullness to percussion in the flanks with moderate amount of ascites. MUSCULOSKELETAL: She has a dressing on the left foot, which is tender. Otherwise normal range of movement. CENTRAL NERVOUS SYSTEM (PA[employer] EDGE): No focal deficit. Power is 5/5 in bilateral upper extremities. LABORATORY REVIEW: Complete blood count (CBC) showed a WBC 15.5, hemoglobin 9.3, platelets of 210. Basic metabolic panel (BMP) showed sodium 135, potassium 4.1, chloride 101, bicarbonate 26, BUN 62, creatinine is 5.8, calcium is 6.6. IMAGING STUDIES: MRI of the foot was done on 03/24/2019, which showed Charcot foot, diffuse subchondral marrow edema and complex fluid collections between second and third metatarsals. CURRENT INPATIENT MEDICATIONS: Patient's medications were all reviewed by me. Intravenous (IV) vancomycin and Zosyn have been stopped. Patient's TUMS tablet was increased to 1 gram by mouth with meals. She was started on Levaquin and clindamycin. ASSESSMENT AND PLAN: 1. End-stage renal disease on hemodialysis. Patient's regular dialysis days are Tuesday, Tuesday, Tuesday. She will be put back on her schedule today and I will try to remove at least 1.5 liters of fluid as tolerated by her blood pressure. 2. Anemia secondary to end-stage renal disease and iron deficiency. Hemoglobin is improving. It is 9.3 today. Continue current dose of Aranesp. She is also getting IV Venofer with dialysis. 3. Decompensated diastolic congestive heart failure. The patient has significant edema; however, it is difficult to remove fluid because her blood pressure drops. She also got the ascitic tap done this admission. 4. Recurrent ascites. The patient got ascitic tap done last week. She will get another tap done this week to remove of further fluid in the abdomen. 5. Left foot infection. The patient has Charcot's foot and abscesses on the MRI. She is currently getting oral clindamycin and Levaquin. The rest of the management is as per primary team. 6. Hypocalcemia. I have increased the patient's TUMS dose to 1 gram by mouth three times a day with meals.
--- NOTE | 2019-03-27 11:21 | CR.PDOC ---
General Date of Consultation: Mar 27, 2019 Consultation CONSULTATION REPORT FOR: Dr Rivera REASON FOR CONSULTATION: Left foot cellulitis VASCULAR SURGERY Dr Estrella HPI: 68-year-old female admitted to [facility] 03/21/19 related to increased redness and bloody weeping from her left foot ulcer at the heel, which she has had since August [address] Baeza. There was also a new ulcer on the medial malleolus that is growing proximal to the old ulcer. Per the patient, new ulcer has evolved over the past 1-2 weeks, and was also assessed by Dr. Baeza when both wounds were debrided. Vascular surgery consulted 03/27/19 for further evaluation of left foot wound. Of note, patient does have ESRD, on HD MWF as per Nephrology. Also, due to her cirrhosis, she undergoes paracentesis every 2 weeks, last 03/23/2019. Denies any fevers, chills, weakness, fatigue, Headache, Chest Pain, Shortness of breath, cough, palpitations, abdominal pain, N/V/D or changes in bowel or bladder habits. 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 Left arm AV fistula. Appendectomy. Hysterectomy. Bilateral cataracts. SOCHX: Recently Tobacco use: Denies ETOH: Denies FAMHX: Noncontributory ROS: As noted in HPI, otherwise 11pt ROS of systems reviewed and unremarkable. PE: GEN: 68 yo F, appears stated age. No acute distress. Alert and oriented x 3. HEENT: Normocephalic, atraumatic. No facial asymmetry. Moist mucous membranes. CHEST: Regular rate and rhythm, +S1, +S2 LUNGS: Clear to auscultation bilaterally. No wheezes, rales, or rhonchi. Breathing appears symmetric and easy. ABD: Round, distended, nontender. +Bowel sounds throughout. No rebound or guarding. EXT: Edema noted in the pretibial areas bilaterally. Left and right foot bandaged bilaterally. NEURO: Alert and oriented x 3. Cranial nerves III-XII are intact. No focal deficits appreciated. 03/21 blood culture x2. Negative 03/21 left foot WOUND CULTURE Final Organism 1 ENTEROBACTER CLOACAE COMPLEX QUANTITY OF GROWTH HEAVY Organism 2 STAPHYLOCOCCUS AUREUS QUANTITY OF GROWTH HEAVY Organism 3 STAPH.AUREUS METHICILLIN RESIS QUANTITY OF GROWTH HEAVY FULL REPORT IN LAB NOTES (eCW and Medent). 03/23 left foot wound culture Negative MRI left foot Once again there are findings are Charcot foot which appear unchanged compared to the prior study of 09/04/2018. Diffuse subchondral marrow edema is seen in the distal tibia and fibula as well as the tarsal bones, unchanged. No definite acute osteomyelitis. Diffuse edema and probable cellulitis. Large joint effusion at the tibiotalar joint. Complex fluid collection centered between the second and third metatarsals extends into the plantar soft-tissues along the flexor tendons and also extends into the dorsal soft-tissues. There may be internal foci or air and therefore this may represent an abscess. Electronically Signed by Aureliano Rivas MD 03/26/2019 04:22 P A&P: 68-year-old female admitted to [facility] 03/21/19 related to increased redness and bloody weeping from her left foot ulcer at the heel, which she has had since August [address] Baeza. There was also a new ulcer on the medial malleolus that is growing proximal to the old ulcer. Per the patient, new ulcer has evolved over the past 1-2 weeks, and was also assessed by Dr. Baeza when both wounds were debrided. Vascular surgery consulted 03/27/19 for further evaluation of left foot wound. Cellulitis of LLE 2/2 infected chronic wound Patient is afebrile. WBC 9.3, has been downtrending. XR Imaging was negative for osteomyelitis. Follows with Dr. Baeza,who has been following pt. s/p debridement 03/24/19 MRI of the Foot done on 03/24/19, no definitive osteomyelitis. Patient remains on Levaquin/clindamycin by mouth as per primary team. Plan as per Dr. Estrella for left foot debridement later today. ESRD Hemodialysis as per nephrology. CHF. Fluid management as per nephrology. Hx of Liver Cirrhosis s/p paracentesis on 03/23 with removal of 8.2L of fluid. CAD s/p 4 stents ASA, Plavix, Statin, BBlocker IDDM2, Charcot foot Cont insulin regimen as ordered Hx of Non-compliance Complicating medical care HTN Continue meds as ordered Hypothyroidism Continue Synthroid Anxiety/Insomnia Continue home meds GERD Continue Protonix Restless Leg Syndrome Cont ropinirole DVT ppx: heparin sc Thank you for your consultation. We will continue to follow along with you. Vital Signs/I&O Vital Signs Date Time Temp Pulse Resp B/P (MAP) Pulse Ox O2 Delivery O2 Flow Rate FiO2 03/27/19 10:08 18 03/27/19 08:27 75 153/70 03/27/19 06:00 97.9 92 03/22/19 13:50 2.0 03/22/19 06:14 Nasal Cannula I&O- Last 24 Hours up to 6 AM 03/27/19 06:00 Intake Total 1440 ml Output Total 1500 ml Balance -60 ml Laboratory Data Labs 24H Laboratory Tests 2 03/26/19 11:21: Bedside Glucose (Misc Panel) 172H 03/26/19 17:26: Bedside Glucose (Misc Panel) 178H 03/26/19 20:37: Bedside Glucose (Misc Panel) 350H 03/27/19 06:35: Nucleated Red Blood Cells % (auto) 1.2H, Anion Gap 6L, Glomerular Filtration Rate 10.4L, Blood Urea Nitrogen 44H, Creatinine 4.45H, Sodium Level 133L, Potassium Level 4.5, Chloride Level 100, Carbon Dioxide Level 27, Calcium Level 7.3L CBC/BMP Laboratory Tests 03/27/19 06:35 Red Blood Count 3.37 L, Mean Corpuscular Volume 91.4, Mean Corpuscular Hemoglobin 27.3, Mean Corpuscular Hemoglobin Concent 29.9 L, Red Cell Distribution Width 18.5 H, Calcium Level 7.3 L Microbiology Microbiology 03/21/19 Blood Culture - Final, Complete NO GROWTH AFTER 5 DAYS 03/21/19 Blood Culture - Final, Complete NO GROWTH AFTER 5 DAYS 03/23/19 Anaerobic Culture - Final, Complete 03/21/19 Gram Stain - Final, Complete 03/21/19 Wound Culture - Final, Complete Enterobacter Cloacae Complex Staphylococcus Aureus Staph.aureus Methicillin Resis Allergies Coded Allergies: pregabalin (Verified Adverse Reaction, Intermediate, "feeling weird", SI thoughts., 03/06/19) Home Medications Scheduled Calcium Carbonate (Tums) 500 Mg Chw, 500 MG PO WM, (Reported) Clopidogrel Bisulfate (Plavix) 75 Mg Tab, 75 MG PO DAILY, (Reported) HAS NOT TAKEN SINCE 03/16/19 - SCHEDULED FOR PARACENTESIS ON 03/22/19 Duloxetine Hcl (Duloxetine HCl) 30 Mg Cap, 30 MG PO DAILY, (Reported) Gabapentin (Gabapentin) 100 Mg Cap, 300 MG PO BID, (Reported) Hydralazine HCl (Hydralazine HCl) 25 Mg Tab, 25 MG PO TID, (Reported) Insulin Detemir (Levemir) 1 Units/0.01 Ml Susp, 20 UNITS SC QHS, (Reported) Insulin Lispro (Humalog) 100 Unit/Ml Inj, 1 DOSE SC AC, (Reported) PER SLIDING SCALE Levothyroxine Sodium (Synthroid) 125 Mcg Tab, 125 MCG PO DAILY, (Reported) Losartan Potassium (Losartan Potassium) 50 Mg Tab, 50 MG PO DAILY, (Reported) Metoprolol Succinate (Metoprolol Succinate) 50 Mg Tab, 50 MG PO BID, (Reported) Pantoprazole Sodium (Pantoprazole Sodium) 40 Mg Tab, 40 MG PO DAILY, (Reported) Ropinirole HCl (Ropinirole HCl) 2 Mg Tab, 4 MG PO BID, (Reported) Silver Sulfadiazine (Ssd) 1 % Cre, 1 DOSE TOP DAILY, (Reported) WITH DRESSING CHANGES ON FOOT Simvastatin (Simvastatin) 20 Mg Tab, 20 MG PO QHS, (Reported) Sucroferric Oxyhydroxide (Velphoro) 500 Mg Tab.chew, 500 MG PO WM, (Reported) NEW OF 03/14/19 - CALCIUM ACETATE MAKE HER VOMIT DUE TO CAPSULES BEING TOO LARGE, TOOK VELPHORO FOR THE FIRST TIME 03/20/19 AND STATES IT MADE HER VERY LA THARGIC ALL DAY Trazodone HCl (Trazodone HCl) 100 Mg Tab, 200 MG PO QHS, (Reported) Scheduled PRN Alprazolam (Alprazolam) 0.25 Mg Tab, 0.25 MG PO BID PRN for ANXIETY, (Reported) Nystatin (Nystatin Oint) 30 Gm Oint, 1 DOSE TOP BID PRN for REDNESS/IRRITATION, (Reported) APPLY TO ABDOMINAL FOLDS Oxycodone HCl/Acetaminophen (Percocet 5-325 mg Tablet) 1 Tab Tab, 1 TAB PO DAILY PRN for PAIN, (Reported) Patiromer Calcium Sorbitex (Veltassa) 8.4 Gm Pow, 8.4 GM PO ASDIRECTED PRN for MISSING DIALYSIS, (Reported) WAS SUPPOSE TO TAKE 03/19/19 BUT DID NOT TAKE Trini Vieira Mar 27, 2019 11:21
[2019-03-27] MEDS ORDERED: HumaLOG INSULIN (NovoLOG) PER UNIT SC ONE (11:45)
[2019-03-27] MEDS ORDERED: HumuLIN R (REGULAR) INSULIN (NovoLIN R) **100U/ML** PER UNIT As Ordered ONE (12:03)
[2019-03-27] MEDS ORDERED: ONDANSETRON 4MG/2ML VIAL (J2405) IV PRN (12:45)
[2019-03-27] MEDS ORDERED: fentaNYL 100 MCG/2 ML INJECTION (J3010) IV PRN (12:45)
--- NOTE | 2019-03-27 14:07 | IPNPDOC ---
Subjective Date Seen The patient was seen on 03/27/19. Subjective Chief Complaint/HPI Patient seen and examined at the bedside. Continues to complain of left lower extremity pain. Vascular surgery consult placed this morning. Objective Physical Examination General Exam: Positive: Alert, Cooperative, No Acute Distress ENT Exam: Positive: Atraumatic, Mucous membr. moist/pink Chest Exam: Positive: Diminished Heart Exam: Positive: Rate Normal, Normal S1, Normal S2 Abdomen Exam: Positive: Soft; Negative: Tenderness Extremity Exam: Positive: Swelling (2+ pitting edema in the lower extremities bilaterally,); Negative: Tenderness Skin Exam: Positive: Other skin issue (left foot noted to be wrapped in surgical dressing.) Psych Exam: Positive: Oriented x 3 Assessment /Plan Plan/VTE VTE Prophylaxis Ordered?: Yes Plan Cellulitis of LLE 2/2 infected chronic wound XR Imaging was negative for osteomyelitis, which she does have a hx of and is s/p amputations Follows with Dr. Baeza,who has been consulted here. s/p Drainage of the foot. MRI of the Foot done on 03/24/19 revealed no definitive findings of acute osteomyelitis PO Clindamycin and Levaquin based on culture susceptibilities WBC downward trending Vascular surgery consulted today due to persistent left lower extremity pain and poor wound healing following recent debridement by Podiatry ESRD on HD MWF History of noncompliance with dialysis Nephrology on board HFpEF, grade II diastolic dysfxn volume optimization via Dialysis as per Nephrology Hx of Liver Cirrhosis s/p paracentesis on 03/23 with removal of 8.2L of fluid CAD s/p 4 stents Continue ASA, Plavix, Statin, BBlocker IDDM2, Charcot foot Cont insulin regimen as ordered Hx of Non-compliance Complicating medical care HTN Continue meds as ordered Hypothyroidism Continue Synthroid Anxiety/Insomnia Continue home meds GERD Continue Protonix Restless Leg Syndrome Cont ropinirole DVT ppx: heparin sc VS, I&O, 24H, Fishbone Vital Signs/I&O Vital Signs Date Time Temp Pulse Resp B/P (MAP) Pulse Ox O2 Delivery O2 Flow Rate FiO2 03/27/19 10:08 18 03/27/19 08:27 75 153/70 03/27/19 06:00 97.9 92 03/22/19 13:50 2.0 03/22/19 06:14 Nasal Cannula I&O- Last 24 Hours up to 6 AM 03/27/19 06:00 Intake Total 1440 ml Output Total 1500 ml Balance -60 ml Laboratory Data 24H LABS Laboratory Tests 2 03/26/19 17:26: Bedside Glucose (Misc Panel) 178H 03/26/19 20:37: Bedside Glucose (Misc Panel) 350H 03/27/19 06:35: Nucleated Red Blood Cells % (auto) 1.2H, Anion Gap 6L, Glomerular Filtration Rate 10.4L, Blood Urea Nitrogen 44H, Creatinine 4.45H, Sodium Level 133L, Potassium Level 4.5, Chloride Level 100, Carbon Dioxide Level 27, Calcium Level 7.3L 03/27/19 11:19: Bedside Glucose (Misc Panel) 281H 03/27/19 12:52: Bedside Glucose (Misc Panel) 258H CBC/BMP Laboratory Tests 03/27/19 06:35 Red Blood Count 3.37 L, Mean Corpuscular Volume 91.4, Mean Corpuscular Hemoglobin 27.3, Mean Corpuscular Hemoglobin Concent 29.9 L, Red Cell Distribution Width 18.5 H, Calcium Level 7.3 L Microbiology Microbiology 03/21/19 Blood Culture - Final, Complete NO GROWTH AFTER 5 DAYS 03/21/19 Blood Culture - Final, Complete NO GROWTH AFTER 5 DAYS 03/27/19 Gram Stain, Received Pending 03/27/19 Wound Culture, Received Pending 03/23/19 Anaerobic Culture - Final, Complete 03/21/19 Gram Stain - Final, Complete 03/21/19 Wound Culture - Final, Complete Enterobacter Cloacae Complex Staphylococcus Aureus Staph.aureus Methicillin Resis JENISE JAIME MD Mar 27, 2019 14:07
--- NOTE | 2019-03-27 16:48 | IPN ---
DATE: 03/27/2019 SUBJECTIVE: The patient was seen and examined at the bedside today morning. The patient is afebrile and hemodynamically stable. She was dialyzed yesterday. She tolerated the hemodialysis procedure well. There was 1.5 liters of fluid removed. She just came back from interventional radiology. She was supposed to get a fistulogram done over there, but vascular surgery looked at her foot, and her foot is really infected, so the plan was changed to take her to operating room (OR) and do the debridement of the foot first before fistulogram is done. OBJECTIVE: Vital signs: Temperature is 97.9, blood pressure 153/70, pulse is 75, respiratory rate of18, saturating 92% on room air. Intake and output: There is no urine output recorded. Ultrafiltration with hemodialysis was 1.5 liters. Weight in the bed scale was 84.6 kg yesterday. PHYSICAL EXAMINATION: GENERAL: The patient is awake, alert, oriented times three, lying in bed in no apparent distress. HEAD AND NECK: Extraocular muscles intact. Pupils equally round and reactive to light. Mucous membranes are moist. NECK: Supple. There is no jugular venous distention (JVD). CARDIOVASCULAR: S1, S2,. Edema 2+ of the bilateral lower extremities. RESPIRATORY: Chest is clear to auscultation bilaterally. Bilateral equal air entry. No rales or rhonchi. ABDOMEN: Distended. Abdominal wall edema, which is worse on the right side, and she also has ascites with dullness to percussion in the flank. MUSCULOSKELETAL: She has a dressing on the left foot, which is tender. CENTRAL NERVOUS SYSTEM: No focal deficit. Power is 5/5 in bilateral upper extremities. LABORATORY REVIEW: CBC showed a WBC of 9.3, hemoglobin 9.2, platelets are 164. BMP showed sodium 133, potassium 4.5, chloride 100, bicarbonate 27, BUN 44, creatinine is 4.4. CURRENT INPATIENT MEDICATIONS: The patient's medications were all reviewed by me. The patient is currently on oral antibiotics, including clindamycin and Levaquin. No other change in the medications today as compared with yesterday. ASSESSMENT AND PLAN: 1. End-stage renal disease, on hemodialysis. The patient's dialysis days are Tuesday, Tuesday, Tuesday. She was dialyzed yesterday according to her regular schedule. Next hemodialysis will be tomorrow. 2. Anemia secondary to end-stage renal disease and iron deficiency. The patient continues to be on Aranesp and IV Venofer. Hemoglobin is improving. It is 9.2, which is acceptable. 3. Decompensated diastolic congestive heart failure. The patient got 1.5 liters of fluid removed. She still has significant edema. Continue the fluid restriction. Once her infection and left foot debridement is done, the patient would probably need [id number] ultrafiltration and hemodialysis sessions. 4. Recurrent ascites. The patient got the ascitic tap done last week. Another tap will be done by the end of this week. 5. Left foot Charcot's foot and abscesses. The patient is going to the OR today for displacement of the left foot. She continues to be on clindamycin and Levaquin.
[2019-03-27] MEDS: rOPINIRole 1MG TAB PO SCH (21:45)
[2019-03-27] MEDS: SIMVASTATIN 20 MG TAB PO SCH (21:46)
[2019-03-27] MEDS: LEVEMIR (INSULIN DETEMIR) 1 UNITS/0.01ML SC SCH (21:47)
[2019-03-28] VITALS: BP 132/76
[2019-03-28 06:00] VITALS: BP 128/79
[2019-03-28] MEDS: LEVOTHYROXINE 125MCG TABLET (0.125MG) PO SCH (06:27)
[2019-03-28] MEDS: CLINDAMYCIN 150 MG CAP PO SCH ×4 (06:27→22:20)
[2019-03-28] MEDS: GABAPENTIN 300 MG CAP PO SCH ×2 (06:27→22:19)
[2019-03-28] MEDS: DULoxetine 30 MG CAP (CYMBALTA) PO SCH (06:27)
[2019-03-28] MEDS: PANTOPRAZOLE 40MG TAB (PROTONIX) PO SCH (06:27)
[2019-03-28] MEDS: CALCIUM CARBONATE 500 MG CHEW U/D PO SCH ×3 (06:28→18:21)
[2019-03-28] MEDS: HEPARIN SOD (PORCINE) 5000 UNITS/ML VIAL SC SCH ×2 (06:28→21:00)
[2019-03-28] MEDS: PERCOCET 5MG/325MG TAB PO PRN ×3 (06:29→22:22)
[2019-03-28] MEDS: METOPROLOL SUCC *XL* 25MG TAB (TopROL *XL*) PO SCH ×2 (06:29→21:00)
[2019-03-28] MEDS: HumaLOG INSULIN (NovoLOG) PER UNIT SC SCH ×4 (07:30→22:21)
[2019-03-28] MEDS: EUCERIN 120GM CREAM TOP SCH ×2 (09:00→21:00)
[2019-03-28] MEDS: CLOPIDOGREL 75 MG TAB PO SCH (09:00)
[2019-03-28] MEDS: SANTYL OINT 30GM TOP SCH (09:00)
[2019-03-28] MEDS: DIAPER RELIEF PASTE (DESITIN) 60GM TOP SCH (09:00)
[2019-03-28 09:06] LABS: HEMATOCRIT 30.6 % (36.0-47.0); HEMOGLOBIN 9.3 g/dl (12.0-15.5); MEAN CORPUSCULAR HEMOGLOBIN 28.1 pg (27.0-33.0); MEAN CORPUSCULAR HGB CONC 30.4 g/dl (32.0-36.5); MEAN CORPUSCULAR VOLUME 92.4 fl (80.0-96.0); PLATELET COUNT, AUTOMATED 172 10^3/uL (150-450); RED BLOOD COUNT 3.31 10^6/uL (4.00-5.40); WHITE BLOOD COUNT 10.8 10^3/uL (4.0-10.0)
[2019-03-28 09:36] LABS: CREATININE FOR GFR 5.28 MG/DL (0.55-1.30); GLOMERULAR FILTRATION RATE 8.6 (>39); POTASSIUM SERUM 4.7 MEQ/L (3.5-5.1)
[2019-03-28] MEDS ORDERED: HEPARIN 1,000 UNITS/ML 10ML VIAL (FOR RADIOLOGY& DIALYSIS ONLY) IV ONE (11:15)
[2019-03-28] MEDS ORDERED: LIDOCAINE 1% SDV 5 ML VIAL SQ ONE (11:15)
--- NOTE | 2019-03-28 11:56 | IPNPDOC ---
Subjective Date Seen The patient was seen on 03/28/19. Subjective Chief Complaint/HPI Patient seen and examined at bedside. Reports that her left lower extremity feels better after vascular surgical intervention yesterday. Otherwise, denies any acute overnight events. Objective Physical Examination General Exam: Positive: Alert, Cooperative, No Acute Distress ENT Exam: Positive: Atraumatic, Mucous membr. moist/pink Chest Exam: Positive: Diminished Heart Exam: Positive: Rate Normal, Normal S1, Normal S2 Abdomen Exam: Positive: Soft; Negative: Tenderness Extremity Exam: Positive: Swelling (2+ pitting edema in the lower extremities bilaterally,); Negative: Tenderness Skin Exam: Positive: Other skin issue (left foot noted to be wrapped in surgi caleb dressing.) Psych Exam: Positive: Oriented x 3 A-FIB/CHADSVASC A-FIB History Current/History of A-Fib/PAF?: No Assessment /Plan Plan/VTE VTE Prophylaxis Ordered?: Yes Plan Cellulitis of LLE 2/2 infected chronic wound XR Imaging was negative for osteomyelitis, which she does have a hx of and is s/p amputations MRI of the Foot done on 03/24/19 revealed no definitive findings of acute osteomyelitis Follows with Dr. Baeza,who has been consulted here. s/p Drainage of the foot on 03/24. s/p Vascular surgery intervention of the left lower extremity with further d ebridement of foot on 03/27 PO Clindamycin and Levaquin based on culture susceptibilities ESRD on HD MWF History of noncompliance with dialysis Nephrology on board HFpEF, grade II diastolic dysfxn volume optimization via Dialysis as per Nephrology Hx of Liver Cirrhosis s/p paracentesis on 03/23 with removal of 8.2L of fluid Scheduled for paracentesis again tomorrow She will need this done on a weekly basis CAD s/p 4 stents Continue ASA, Plavix, Statin, BBlocker IDDM2, Charcot foot Cont insulin regimen as ordered Hx of Non-compliance Complicating medical care HTN Continue meds as ordered Hypothyroidism Continue Synthroid Anxiety/Insomnia Continue home meds GERD Continue Protonix Restless Leg Syndrome Cont ropinirole DVT ppx: heparin sc VS, I&O, 24H, Fishbone Vital Signs/I&O Vital Signs Date Time Temp Pulse Resp B/P (MAP) Pulse Ox O2 Delivery O2 Flow Rate FiO2 03/28/19 07:00 18 03/28/19 06:29 70 128/79 03/28/19 06:00 97.9 98 2.0 03/22/19 06:14 Nasal Cannula I&O- Last 24 Hours up to 6 AM 03/28/19 06:00 Intake Total 1090 ml Output Total 0 ml Balance 1090 ml Laboratory Data 24H LABS Laboratory Tests 2 03/27/19 12:52: Bedside Glucose (Misc Panel) 258H 03/27/19 16:05: Bedside Glucose (Misc Panel) 208H 03/27/19 20:34: Bedside Glucose (Misc Panel) 279H 03/28/19 08:33: Nucleated Red Blood Cells % (auto) 0.2H, Anion Gap 7L, Glomerular Filtration Rate 8.6L, Blood Urea Nitrogen 56H, Creatinine 5.28H, Sodium Level 135L, Potassium Level 4.7, Chloride Level 101, Carbon Dioxide Level 27, Calcium Level 7.0L CBC/BMP Laboratory Tests 03/28/19 08:33 Red Blood Count 3.31 L, Mean Corpuscular Volume 92.4, Mean Corpuscular H emoglobin 28.1, Mean Corpuscular Hemoglobin Concent 30.4 L, Red Cell Distribution Width 18.6 H, Calcium Level 7.0 L Microbiology Microbiology 03/21/19 Blood Culture - Final, Complete NO GROWTH AFTER 5 DAYS 03/21/19 Blood Culture - Final, Complete NO GROWTH AFTER 5 DAYS 03/27/19 Gram Stain - Final, Resulted 03/27/19 Wound Culture, Resulted Pending 03/23/19 Anaerobic Culture - Final, Complete 03/21/19 Gram Stain - Final, Complete 03/21/19 Wound Culture - Final, Complete Enterobacter Cloacae Complex Staphylococcus Aureus Staph.aureus Methicillin Resis JENISE JAIME MD March 28, 2019 11:56
--- NOTE | 2019-03-28 12:54 | IPNPDOC ---
Date Seen The patient was seen on 03/28/19. Progress Note VASCULAR SURGERY Dr Estrella HPI: 68-year-old female admitted to [facility] 03/21/19 related to increased redness and bloody weeping from her left foot ulcer at the heel, which she has had since August [address] Baeza. There was also a new ulcer on the medial malleolus that is growing proximal to the old ulcer. Per the patient, new ulcer has evolved over the past 1-2 weeks, and was also assessed by Dr. Baeza when both wounds were debrided. Vascular surgery consulted 03/27/19 for further evaluation of left foot wound. Of note, patient does have ESRD, on HD MWF as per Nephrology. Also, due to her cirrhosis, she undergoes paracentesis every 2 weeks, last 03/23/2019. The patient is status post left foot debridement and amputation second and third toes as per Dr. Estrella 03/27/19. The patient is sitting up in bed and has eaten breakfast. She states her pain is controlled. Left foot is bandaged. Denies any fevers, chills, weakness, fatigue, Headache, Chest Pain, Shortness of breath, cough, palpitations, abdominal pain, N/V/D or changes in bowel or bladder habits. 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 Left arm AV fistula. Appendectomy. Hysterectomy. Bilateral cataracts. PE: GEN: 68 yo F, appears stated age. No acute distress. Alert and oriented x 3. HEENT: Normocephalic, atraumatic. No facial asymmetry. Moist mucous membranes. CHEST: Regular rate and rhythm, +S1, +S2 LUNGS: Clear to auscultation bilaterally. No wheezes, rales, or rhonchi. Breathing appears symmetric and easy. ABD: Round, distended, nontender. +Bowel sounds throughout. No rebound or guarding. EXT: Edema noted in the pretibial areas bilaterally. Left and right foot bandaged bilaterally. NEURO: Alert and oriented x 3. Cranial nerves III-XII are intact. No focal de ficits appreciated. 03/21 blood culture x2. Negative 03/21 left foot WOUND CULTURE Final Organism 1 ENTEROBACTER CLOACAE COMPLEX QUANTITY OF GROWTH HEAVY Organism 2 STAPHYLOCOCCUS AUREUS QUANTITY OF GROWTH HEAVY Organism 3 STAPH.AUREUS METHICILLIN RESIS QUANTITY OF GROWTH HEAVY FULL REPORT IN LAB NOTES (eCW and Medent). 03/23 left foot wound culture Negative MRI left foot Once again there are findings are Charcot foot which appear unchanged compared to the prior study of 09/04/2018. Diffuse subchondral marrow edema is seen in the distal tibia and fibula as well as the tarsal bones, unchanged. No definite acute osteomyelitis. Diffuse edema and probable cellulitis. Large joint effusion at the tibiotalar joint. Complex fluid collection centered between the second and third metatarsals extends into the plantar soft-tissues along the flexor tendons and also extends into the dorsal soft-tissues. There may be internal foci or air and therefore this may represent an abscess. Electronically Signed by Aureliano Rivas MD 03/26/2019 04:22 P A&P: 68-year-old female admitted to [facility] 03/21/19 related to increased redness and bloody weeping from her left foot ulcer at the heel, which she has had since August [address] Baeza. There was also a new ulcer on the medial malleolus that is growing proximal to the old ulcer. Per the patient, new ulcer has evolved over the past 1-2 weeks, and was also assessed by Dr. Baeza when both wounds were debrided. Vascular surgery consulted 03/27/19 for further evaluation of left foot wound. Cellulitis of LLE 2/2 infected chronic wound/status post debridement and amputation second and third toes 03/27/[address] Estrella. POD1. Patient is afebrile. WBC 10.8. XR Imaging was negative for osteomyelitis. MRI of the Foot done on 03/24/19, no definitive osteomyelitis. Patient remains on Levaquin/clindamycin by mouth as per primary team. ESRD Hemodialysis as per nephrology. CHF. Fluid management as per nephrology. Chronic anemia. venofer as per nephrology. Aranesp as per nephrology. Monitor. Hx of Liver Cirrhosis s/p paracentesis on 03/23 with removal of 8.2L of fluid. Patient is scheduled for paracentesis 03/29/19. CAD s/p 4 stents ASA, Plavix, Statin, BBlocker IDDM2, Charcot foot Cont insulin regimen as ordered Hx of Non-compliance Complicating medical care HTN Continue meds as ordered Hypothyroidism Continue Synthroid Anxiety/Insomnia Continue home meds GERD Continue Protonix Restless Leg Syndrome Cont ropinirole DVT ppx: heparin sc A-FIB/CHADSVASC A-FIB History Current/History of A-Fib/PAF?: No VS, I&O, 24H, Fishbone Vital Signs/I&O Vital Signs Date Time Temp Pulse Resp B/P (MAP) Pulse Ox O2 Delivery O2 Flow Rate FiO2 03/28/19 07:00 18 03/28/19 06:29 70 128/79 03/28/19 06:00 97.9 98 2.0 03/22/19 06:14 Nasal Cannula I&O- Last 24 Hours up to 6 AM 03/28/19 06:00 Intake Total 1090 ml Output Total 0 ml Balance 1090 ml Laboratory Data 24H LABS Laboratory Tests 2 03/27/19 12:52: Bedside Glucose (Misc Panel) 258H 03/27/19 16:05: Bedside Glucose (Misc Panel) 208H 03/27/19 20:34: Bedside Glucose (Misc Panel) 279H 03/28/19 08:33: Nucleated Red Blood Cells % (auto) 0.2H, Anion Gap 7L, Glomerular Filtration Rate 8.6L, Blood Urea Nitrogen 56H, Creatinine 5.28H, Sodium Level 135L, Potassium Level 4.7, Chloride Level 101, Carbon Dioxide Level 27, Calcium Level 7.0L CBC/BMP Laboratory Tests 03/28/19 08:33 Red Blood Count 3.31 L, Mean Corpuscular Volume 92.4, Mean Corpuscular Hemoglobin 28.1, Mean Corpuscular Hemoglobin Concent 30.4 L, Red Cell Distribution Width 18.6 H, Calcium Level 7.0 L Microbiology Microbiology 03/21/19 Blood Culture - Final, Complete NO GROWTH AFTER 5 DAYS 03/21/19 Blood Culture - Final, Complete NO GROWTH AFTER 5 DAYS 03/27/19 Gram Stain - Final, Resulted 03/27/19 Wound Culture, Resulted Pending 03/23/19 Anaerobic Culture - Final, Complete 03/21/19 Gram Stain - Final, Complete 03/21/19 Wound Culture - Final, Complete Enterobacter Cloacae Complex Staphylococcus Aureus Staph.aureus Methicillin Resis Trini Vieira March 28, 2019 12:54
[2019-03-28 14:00] VITALS: BP 117/59
--- NOTE | 2019-03-28 15:02 | IPN ---
DATE: 03/28/2019 SUBJECTIVE: The patient was seen and examined at the bedside today morning during hemodialysis procedure. The patient is tolerating the hemodialysis procedure. However, blood pressures are low so ultrafiltration goal was lowered. She reports that she got left foot debridement of the wound done. She currently has a dressing on the left foot. OBJECTIVE: VITAL SIGNS: Temperature is 97.9 degrees Fahrenheit, blood pressure 128/79, pulse is 70, respiratory of 16, saturating 98% on two liters. INTAKE AND OUTPUT: There is no urine output recorded. Weight in the bed scale is 90.4 kg. PHYSICAL EXAMINATION: GENERAL: The patient is awake, alert, oriented times three, laying in bed, getting hemodialysis done. HEAD AND NECK: Extraocular muscles intact. Pupils equally round and reactive to light. Mucous membranes are moist. Neck is supple. There is no jugular venous distention (JVD). CARDIOVASCULAR: S1, S2, 2+ edema of the bilateral lower extremities. RESPIRATORY: Chest is clear to auscultation bilaterally. Bilateral equal air entry. No rales or rhonchi. ABDOMEN: Soft, distended with abdominal wall edema and moderate amount of ascites. MUSCULOSKELETAL: She has a dressing on the left foot which is tender to palpation. CENTRAL NEUROLOGIC SYSTEM (LEAF STAMPER): No focal deficit. Power is 5.5 in bilateral upper extremities. LABORATORY REVIEW: CBC showed a WBC of 10.8, hemoglobin 9.3, platelets are 172. BMP showed sodium 135, potassium 4.7, chloride 101, bicarbonate 27, BUN 56, creatinine is 5.2. MICROBIOLOGY: Wound culture was sent yesterday which is still pending. CURRENT INPATIENT MEDICATIONS: The patient's medications were all reviewed by me. She continues to be on oral antibiotics and there is no change in the medications today as compared with yesterday. ASSESSMENT AND PLAN: 1. End-stage renal disease, on hemodialysis. The patient is being dialyzed today according to her Tuesday, Tuesday, Tuesday schedule. Ultrafiltration goal has been decreased to one liter because of low blood pressure. 2. Anemia secondary to end-stage renal disease. Continue current dose of Aranesp and Venofer. Hemoglobin level is stable and improving. 3. Decompensated diastolic congestive heart failure. The patient has low blood pressures. Ultrafiltration goal is one liter only. 4. Recurrent ascites. The patient got the ascitic tap done yesterday. She will get another tap done end of this week. 5. Left foot abscesses and Charcot foot. The patient got the debridement of the left foot done by vascular surgery yesterday. She continues to be on clindamycin and Levaquin. Cultures are still pending.
[2019-03-28 22:00] VITALS: BP 111/63
[2019-03-28] MEDS: rOPINIRole 1MG TAB PO SCH (22:19)
[2019-03-28] MEDS: SIMVASTATIN 20 MG TAB PO SCH (22:19)
[2019-03-28] MEDS: traZODone 100 MG TAB PO PRN (22:19)
[2019-03-28] MEDS: LEVEMIR (INSULIN DETEMIR) 1 UNITS/0.01ML SC SCH (22:21)
[2019-03-29] MEDS: ALPRAZolam 0.25 MG TAB PO PRN (05:51)
[2019-03-29] MEDS: LEVOTHYROXINE 125MCG TABLET (0.125MG) PO SCH (05:52)
[2019-03-29 06:00] VITALS: BP 121/68
[2019-03-29] MEDS: PERCOCET 5MG/325MG TAB PO PRN ×3 (06:16→20:18)
[2019-03-29 06:18] LABS: HEMATOCRIT 33.1 % (36.0-47.0); HEMOGLOBIN 9.7 g/dl (12.0-15.5); MEAN CORPUSCULAR HEMOGLOBIN 27.5 pg (27.0-33.0); MEAN CORPUSCULAR HGB CONC 29.3 g/dl (32.0-36.5); MEAN CORPUSCULAR VOLUME 93.8 fl (80.0-96.0); PLATELET COUNT, AUTOMATED 159 10^3/uL (150-450); RED BLOOD COUNT 3.53 10^6/uL (4.00-5.40); WHITE BLOOD COUNT 10.7 10^3/uL (4.0-10.0)
[2019-03-29] MEDS ORDERED: fentaNYL 100 MCG/2 ML INJECTION (J3010) As Ordered ONE (06:31)
[2019-03-29] MEDS ORDERED: MIDAZOLAM INJ 2 MG/2 ML VIAL (J2250) As Ordered ONE (06:32)
[2019-03-29] MEDS ORDERED: ISOVUE-300 61% 100ML VIAL (Q9967) As Ordered ONE (06:32)
[2019-03-29] MEDS ORDERED: BUPIVACAINE HCL 0.5% 10 ML VIAL As Ordered ONE (06:32)
[2019-03-29] MEDS ORDERED: LIDOCAINE 2% MDV 20 ML VIAL As Ordered ONE (06:32)
[2019-03-29 06:44] LABS: CALCIUM LEVEL 7.6 MG/DL (8.8-10.2); CREATININE FOR GFR 4.24 MG/DL (0.55-1.30); POTASSIUM SERUM 4.2 MEQ/L (3.5-5.1)
[2019-03-29] MEDS ORDERED: diphenhydrAMINE INJ 50MG/ML VIAL (J1200) As Ordered ONE (06:51)
[2019-03-29] MEDS ORDERED: HEPARIN 1,000 UNITS/ML 10ML VIAL (FOR RADIOLOGY& DIALYSIS ONLY) As Ordered ONE (06:51)
[2019-03-29] MEDS: HumaLOG INSULIN (NovoLOG) PER UNIT SC SCH ×4 (07:30→20:17)
[2019-03-29] MEDS: CALCIUM CARBONATE 500 MG CHEW U/D PO SCH ×3 (08:00→17:41)
[2019-03-29] MEDS: METOPROLOL SUCC *XL* 25MG TAB (TopROL *XL*) PO SCH ×2 (09:00→20:18)
[2019-03-29] MEDS: HEPARIN SOD (PORCINE) 5000 UNITS/ML VIAL SC SCH ×2 (09:00→21:25)
[2019-03-29] MEDS: CLOPIDOGREL 75 MG TAB PO SCH (09:00)
[2019-03-29] MEDS: LEVEMIR (INSULIN DETEMIR) 1 UNITS/0.01ML SC SCH ×2 (09:00→20:16)
--- NOTE | 2019-03-29 10:32 | IPNPDOC ---
Date Seen The patient was seen on 03/29/19. Progress Note VASCULAR SURGERY Dr Estrella HPI: 68-year-old female admitted to [facility] 03/21/19 related to increased redness and bloody weeping from her left foot ulcer at the heel, which she has had since August [address] Baeza. There was also a new ulcer on the medial malleolus that is growing proximal to the old ulcer. Per the patient, new ulcer has evolved over the past 1-2 weeks, and was also assessed by Dr. Baeza when both wounds were debrided. Vascular surgery consulted 03/27/19 for further evaluation of left foot wound. Of note, patient does have ESRD, on HD MWF as per Nephrology. Also, due to her cirrhosis, she undergoes paracentesis every 2 weeks, scheduled for today. The patient is status post left foot debridement and amputation second and third toes as per Dr. Estrella 03/27/19. The patient is currently S/P LLE angiogram as per Dr Estrella. Left foot is bandaged. Denies any fevers, chills, weakness, fatigue, Headache, Chest Pain, Shortness of breath, cough, palpitations, abdominal pain, N/V/D or changes in bowel or bladder habits. 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 Left arm AV fistula. Appendectomy. Hysterectomy. Bilateral cataracts. PE: GEN: 68 yo F, appears stated age. No acute distress. Alert to voice,s/p procedure and remains drowsy. HEENT: Normocephalic, atraumatic. No facial asymmetry. Moist mucous membranes. CHEST: Regular rate and rhythm, +S1, +S2 LUNGS: Clear to auscultation bilaterally. No wheezes, rales, or rhonchi. Breathing appears symmetric and easy. ABD: Round, distended, nontender. +Bowel sounds throughout. No rebound or guarding. EXT: Edema noted in the pretibial areas bilaterally. Left and right foot b andaged bilaterally. NEURO: Alert and oriented x 3. Cranial nerves III-XII are intact. No focal defi cits appreciated. 03/21 blood culture x2. Negative 03/21 left foot WOUND CULTURE Final Organism 1 ENTEROBACTER CLOACAE COMPLEX QUANTITY OF GROWTH HEAVY Organism 2 STAPHYLOCOCCUS AUREUS QUANTITY OF GROWTH HEAVY Organism 3 STAPH.AUREUS METHICILLIN RESIS QUANTITY OF GROWTH HEAVY FULL REPORT IN LAB NOTES (eCW and Medent). 03/23 left foot wound culture Negative MRI left foot Once again there are findings are Charcot foot which appear unchanged compared to the prior study of 09/04/2018. Diffuse subchondral marrow edema is seen in the distal tibia and fibula as well as the tarsal bones, unchanged. No definite acute osteomyelitis. Diffuse edema and probable cellulitis. Large joint effusion at the tibiotalar joint. Complex fluid collection centered between the second and third metatarsals extends into the plantar soft-tissues along the flexor tendons and also extends into the dorsal soft-tissues. There may be internal foci or air and therefore this may represent an abscess. Electronically Signed by Aureliano Rivas MD 03/26/2019 04:22 P A&P: 68-year-old female admitted to [facility] 03/21/19 related to increased redness and bloody weeping from her left foot ulcer at the heel, which she has had since August [address] Baeza. There was also a new ulcer on the medial malleolus that is growing proximal to the old ulcer. Per the patient, new ulcer has evolved over the past 1-2 weeks, and was also assessed by Dr. Baeza when both wounds were debrided. Vascular surgery consulted 03/27/19 for further evaluation of left foot wound. Cellulitis of LLE 2/2 infected chronic wound/status post debridement and amputation second and third toes 03/27/[address] Estrella. POD2. Patient is afebrile. WBC 10.7. XR Imaging was negative for osteomyelitis. MRI of the Foot done on 03/24/19, no definitive osteomyelitis. Patient remains on Levaquin/clindamycin by mouth as per primary team. LLE angiogram completed 03/29/[address] Estrella indicating good blood flow to Left ankle then small vessel disease, not amenable to any intervention. Left foot healing likely going to be very difficult, Pt may need to consider Left BKA but Dr Estrella will plan to discuss with Pt and family further options and risk vs benefits. ESRD Hemodialysis as per nephrology. CHF. Fluid management as per nephrology. Chronic anemia. venofer as per nephrology. Aranesp as per nephrology. Monitor. Hx of Liver Cirrhosis s/p paracentesis on 03/23 with removal of 8.2L of fluid. Patient is scheduled for paracentesis 03/29/19. CAD s/p 4 stents ASA, Plavix, Statin, BBlocker IDDM2, Charcot foot Cont insulin regimen as ordered Hx of Non-compliance Complicating medical care HTN Continue meds as ordered Hypothyroidism Continue Synthroid Anxiety/Insomnia Continue home meds GERD Continue Protonix Restless Leg Syndrome Cont ropinirole DVT ppx: heparin sc A-FIB/CHADSVASC A-FIB History Current/History of A-Fib/PAF?: No VS, I&O, 24H, [facility] Vital Signs/I&O Vital Signs Date Time Temp Pulse Resp B/P (MAP) Pulse Ox O2 Delivery O2 Flow Rate FiO2 03/29/19 06:53 16 03/29/19 06:00 97.7 72 121/68 (85) 99 1.0 I&O- Last 24 Hours up to 6 AM 03/29/19 06:00 Intake Total 1680 ml Output Total 1000 ml Balance 680 ml Laboratory Data 24H LABS Laboratory Tests 2 03/28/19 12:46: Bedside Glucose (Misc Panel) 254H 03/28/19 17:15: Bedside Glucose (Misc Panel) 353H 03/28/19 21:36: Bedside Glucose (Misc Panel) 381H 03/29/19 06:01: Nucleated Red Blood Cells % (auto) 0.2H, Anion Gap 5L, Glomerular Filtration Rate 11.0L, Blood Urea Nitrogen 43H, Creatinine 4.24H, Sodium Level 137, Potassium Level 4.2, Chloride Level 102, Carbon Dioxide Level 30, Calcium Level 7.6L CBC/BMP Laboratory Tests 03/29/19 06:01 Red Blood Count 3.53 L, Mean Corpuscular Volume 93.8, Mean Corpuscular Hemoglobin 27.5, Mean Corpuscular Hemoglobin Concent 29.3 L, Red Cell Distribution Width 18.7 H, Calcium Level 7.6 L Microbiology Microbiology 03/21/19 Blood Culture - Final, Complete NO GROWTH AFTER 5 DAYS 03/21/19 Blood Culture - Final, Complete NO GROWTH AFTER 5 DAYS 03/27/19 Gram Stain - Final, Resulted 03/27/19 Wound Culture - Preliminary, Resulted Enterobacter Cloacae Complex 03/23/19 Anaerobic Culture - Final, Complete 03/21/19 Gram Stain - Final, Complete 03/21/19 Wound Culture - Final, Complete Enterobacter Cloacae Complex Staphylococcus Aureus Staph.aureus Methicillin Resis Trini Vieira March 29, 2019 10:32
[2019-03-29] MEDS: DULoxetine 30 MG CAP (CYMBALTA) PO SCH (11:27)
[2019-03-29] MEDS: GABAPENTIN 300 MG CAP PO SCH ×2 (11:27→20:17)
[2019-03-29] MEDS: PANTOPRAZOLE 40MG TAB (PROTONIX) PO SCH (11:28)
[2019-03-29] MEDS: CLINDAMYCIN 150 MG CAP PO SCH ×4 (11:28→20:18)
[2019-03-29] MEDS: EUCERIN 120GM CREAM TOP SCH ×2 (11:29→20:19)
[2019-03-29 12:00] VITALS: BP 142/68
--- NOTE | 2019-03-29 12:04 | IPN ---
DATE: 03/29/2019 SUBJECTIVE: Patient was seen and examined at the bedside today morning in radiology. She was getting her ascitic tap done. She also got the angiogram of the left lower extremity done today morning. Patient is drowsy and sleepy at this time. She is otherwise hemodynamically stable. She was dialyzed yesterday and 1 liters of fluid was removed. OBJECTIVE: VITAL SIGNS: Temperature is 97.7 degrees Fahrenheit, blood pressure 111/63, pulse is 72, respiratory rate of 16, saturating 99% on nasal cannula at 1 liter. INTAKE AND OUTPUT: Ultrafiltration with hemodialysis was 1 liters yesterday. Weight in the bed scale is 92 kg. PHYSICAL EXAMINATION: GENERAL: The patient is drowsy and sleepy, laying in bed getting the paracentesis done. HEAD AND NECK EXAM: Pupils are equally round and reactive to light. Mucous membranes are moist. Neck is supple. There is no jugular venous distention (JVD). CARDIOVASCULAR: S1, S2. 2+ edema of the bilateral lower extremities. RESPIRATORY: Chest is clear to auscultation bilaterally. Bilateral equal air entry. ABDOMEN: Distended with ascites and currently she has a catheter in the right side of the abdomen and getting the ascitic tap done. MUSCULOSKELETAL: She has a dressing on the left foot and the toes of the right foot as well. CENTRAL NERVOUS SYSTEM (MANAGEMENT AND BUDGET ANALYST): Patient is drowsy and sleepy. She is getting the procedures done this morning. LABORATORY REVIEW: Complete blood count (CBC) showed a WBC of 10.7, hemoglobin 9.7, platelets are 159. Basic metabolic panel (BMP) showed sodium 137, potassium 4.2, chloride 102, bicarbonate is 30, BUN 43, creatinine is 4.2. MICROBIOLOGY: Wound cultures from the left foot are growing Enterobacter cloacae complex and Staphylococcus aureus. Enterobacter cloacae is sensitive to Levaquin. CURRENT INPATIENT MEDICATIONS: Patient's medications were all reviewed by me. She continues to be on oral clindamycin. She is on Levaquin 250 mg by mouth every 48 hours. I am going to change the dose of 250 mg by mouth daily. ASSESSMENT AND PLAN 1. End-stage renal disease on hemodialysis. The patient's regular dialysis days are Tuesday, Tuesday, Tuesday. She was dialyzed yesterday. Next hemodialysis session will be tomorrow. 2. Anemia secondary to end-stage renal disease. Continue current dose of Aranesp and Venofer 3. Decompensated diastolic congestive heart failure. Patient has very low blood pressures. Difficult to remove fluid. Only 1 liter of fluid was removed. 4. Recurrent ascites. The patient is getting the ascitic tap done. So far 5 liters of fluid has been removed and more is coming out. I anticipate at least she will get about 8 liters of fluid removed with paracentesis today. 5. Left foot abscess and Charcot foot. The patient is growing Enterobacter cloacae and Staphylococcus aureus. She is already on clindamycin and Levaquin. I have increased the Levaquin dose to 250 mg every 24 hours. She got the angiogram of the left lower extremity. There is no circulation in the left foot and vascular surgery is recommending left below-knee amputation. Further discussion with patient and family is pending at this point.
--- NOTE | 2019-03-29 12:20 | IPNPDOC ---
Subjective Date Seen The patient was seen on 03/29/19. Subjective Chief Complaint/HPI Patient seen and examined at bedside. She is scheduled for left lower extremity angiogram and paracentesis this morning. No acute overnight events noted. Objective Physical Examination General Exam: Positive: Alert, Cooperative, No Acute Distress ENT Exam: Positive: Atraumatic, Mucous membr. moist/pink Chest Exam: Positive: Diminished Heart Exam: Positive: Rate Normal, Normal S1, Normal S2 Abdomen Exam: Positive: Soft, Other (distended, positive fluid wave); Negative: Tenderness Extremity Exam: Positive: Swelling (2+ pitting edema in the lower extremities bilaterally,); Negative: Tenderness Skin Exam: Positive: Other skin issue (left foot noted to be wrapped in surgical dressing.) Psych Exam: Positive: Oriented x 3 Assessment /Plan Plan/VTE VTE Prophylaxis Ordered?: Yes Plan Cellulitis of LLE 2/2 infected chronic wound XR Imaging was negative for osteomyelitis, which she does have a hx of and is s/p amputations MRI of the Foot done on 03/24/19 revealed no definitive findings of acute osteomyelitis Follows with Dr. Baeza,who has been consulted here. s/p Drainage of the foot on 03/24. s/p Vascular surgery intervention of the left lower extremity with further debridement and amputation of 2nd and 3rd toe on 03/27 s/p angiogram of the LLE with Vascular surgery this morning--patient to need Left BKA, will be addressed with patient/family Continue PO Clindamycin and Levaquin based on culture susceptibilities ESRD on HD MWF History of noncompliance with dialysis Nephrology on board HFpEF, grade II diastolic dysfxn volume optimization via Dialysis as per Nephrology Hx of Liver Cirrhosis s/p paracentesis on 03/23 with removal of 8.2L of fluid Scheduled for paracentesis again today She will need this done on a weekly basis CAD s/p 4 stents Continue ASA, Plavix, Statin, BBlocker IDDM2, Charcot foot Cont insulin regimen as ordered Hx of Non-compliance Complicating medical care HTN Continue meds as ordered Hypothyroidism Continue Synthroid Anxiety/Insomnia Continue home meds GERD Continue Protonix Restless Leg Syndrome Cont ropinirole DVT ppx: heparin sc VS, I&O, 24H, Fishbone Vital Signs/I&O Vital Signs Date Time Temp Pulse Resp B/P (MAP) Pulse Ox O2 Delivery O2 Flow Rate FiO2 03/29/19 12:00 97.3 69 16 142/68 (92) 95 1.0 I&O- Last 24 Hours up to 6 AM 03/29/19 06:00 Intake Total 1680 ml Output Total 1000 ml Balance 680 ml Laboratory Data 24H LABS Laboratory Tests 2 03/28/19 12:46: Bedside Glucose (Misc Panel) 254H 03/28/19 17:15: Bedside Glucose (Misc Panel) 353H 03/28/19 21:36: Bedside Glucose (Misc Panel) 381H 03/29/19 06:01: Nucleated Red Blood Cells % (auto) 0.2H, Anion Gap 5L, Glomerular Filtration Rate 11.0L, Blood Urea Nitrogen 43H, Creatinine 4.24H, Sodium Level 137, Potassium Level 4.2, Chloride Level 102, Carbon Dioxide Level 30, Calcium Level 7.6L 03/29/19 11:21: Bedside Glucose (Misc Panel) 251H 03/29/19 11:49: CBC/BMP Laboratory Tests 03/29/19 06:01 Red Blood Count 3.53 L, Mean Corpuscular Volume 93.8, Mean Corpuscular Hemoglobin 27.5, Mean Corpuscular Hemoglobin Concent 29.3 L, Red Cell Distribution Width 18.7 H, Calcium Level 7.6 L Microbiology Microbiology 03/21/19 Blood Culture - Final, Complete NO GROWTH AFTER 5 DAYS 03/21/19 Blood Culture - Final, Complete NO GROWTH AFTER 5 DAYS 03/27/19 Gram Stain - Final, Resulted 03/27/19 Wound Culture - Preliminary, Resulted Enterobacter Cloacae Complex Staphylococcus Aureus 03/23/19 Anaerobic Culture - Final, Complete 03/21/19 Gram Stain - Final, Complete 03/21/19 Wound Culture - Final, Complete Enterobacter Cloacae Complex Staphylococcus Aureus Staph.aureus Methicillin Resis JENISE JAIME MD March 29, 2019 12:20
[2019-03-29 12:34] LABS: CPK CREATINE PHOSPHOKINASE 143 U/L (26-192); MB/CK RELATIVE INDEX 3.08 (< OR =4); TROPONIN I < 0.02 NG/ML (< 0.10)
[2019-03-29 13:30] VITALS: BP 118/56
[2019-03-29 14:00] VITALS: BP 122/48
[2019-03-29] MEDS: LevoFLOXacin 250 MG TABLET PO SCH (16:05)
--- NOTE | 2019-03-29 16:59 | ECGEPIP ---
Stationary ECG Study [facility] Test Date: 2019-03-29 Pat Name: GUI JEAN Department: Room: [place] [address] Gender: F Health Promoter: ALBER : [id number] Requested By: PETERSON CUETO Order Number: [id number] Reading MD: Jasiel Maldonado Measurements Intervals [place] Rate: 67 P: 20 UT: 174 QRS: -29 QRSD: 93 T: 38 QT: 457 QTc: 485 Interpretive Statements Normal sinus rhythm Anterior MD, age indeterminate No significant change when compared to prior tracing of 03/21/2019 Electronically Signed On 03-29-2019 16:58:58 EDT by Jasiel Maldonado
[2019-03-29] MEDS: SIMVASTATIN 20 MG TAB PO SCH (20:18)
[2019-03-29] MEDS: rOPINIRole 1MG TAB PO SCH (20:19)
[2019-03-29 22:00] VITALS: BP 119/56
[2019-03-30 02:00] VITALS: BP 150/67
[2019-03-30] MEDS: PERCOCET 5MG/325MG TAB PO PRN ×3 (03:37→17:48)
[2019-03-30] MEDS: DULoxetine 30 MG CAP (CYMBALTA) PO SCH (05:19)
[2019-03-30] MEDS: HEPARIN SOD (PORCINE) 5000 UNITS/ML VIAL SC SCH ×2 (05:19→21:46)
[2019-03-30] MEDS: GABAPENTIN 300 MG CAP PO SCH ×2 (05:20→21:44)
[2019-03-30] MEDS: PANTOPRAZOLE 40MG TAB (PROTONIX) PO SCH (05:20)
[2019-03-30] MEDS: METOPROLOL SUCC *XL* 25MG TAB (TopROL *XL*) PO SCH ×2 (05:20→21:44)
[2019-03-30] MEDS: CLINDAMYCIN 150 MG CAP PO SCH ×4 (05:20→21:44)
[2019-03-30] MEDS: EUCERIN 120GM CREAM TOP SCH ×2 (05:21→21:46)
[2019-03-30] MEDS: LevoFLOXacin 250 MG TABLET PO SCH (05:21)
[2019-03-30] MEDS: LEVOTHYROXINE 125MCG TABLET (0.125MG) PO SCH (05:21)
[2019-03-30] MEDS: CALCIUM CARBONATE 500 MG CHEW U/D PO SCH ×3 (05:21→17:47)
[2019-03-30 05:48] LABS: HEMATOCRIT 30.9 % (36.0-47.0); HEMOGLOBIN 9.2 g/dl (12.0-15.5); MEAN CORPUSCULAR HEMOGLOBIN 27.3 pg (27.0-33.0); MEAN CORPUSCULAR HGB CONC 29.8 g/dl (32.0-36.5); MEAN CORPUSCULAR VOLUME 91.7 fl (80.0-96.0); PLATELET COUNT, AUTOMATED 159 10^3/uL (150-450); RED BLOOD COUNT 3.37 10^6/uL (4.00-5.40); WHITE BLOOD COUNT 12.6 10^3/uL (4.0-10.0)
[2019-03-30 06:00] VITALS: BP 148/67
[2019-03-30 06:09] LABS: CALCIUM LEVEL 6.9 MG/DL (8.8-10.2); CREATININE FOR GFR 5.16 MG/DL (0.55-1.30); GLOMERULAR FILTRATION RATE 8.8 (>39); POTASSIUM SERUM 4.5 MEQ/L (3.5-5.1)
[2019-03-30] MEDS: HumaLOG INSULIN (NovoLOG) PER UNIT SC SCH ×4 (07:30→21:45)
[2019-03-30] MEDS: CLOPIDOGREL 75 MG TAB PO SCH (09:00)
[2019-03-30] MEDS: LEVEMIR (INSULIN DETEMIR) 1 UNITS/0.01ML SC SCH ×2 (09:00→21:46)
--- NOTE | 2019-03-30 10:02 | IPNPDOC ---
Date Seen The patient was seen on 03/30/19. Progress Note VASCULAR SURGERY Dr Estrella HPI: 68-year-old female admitted to [facility] 03/21/19 related to increased redness and bloody weeping from her left foot ulcer at the heel, which she has had since August [address] Baeza. There was also a new ulcer on the medial malleolus that is growing proximal to the old ulcer. Per the patient, new ulcer has evolved over the past 1-2 weeks, and was also assessed by Dr. Baeza when both wounds were debrided. Vascular surgery consulted 03/27/19 for further evaluation of left foot wound. Of note, patient does have ESRD, on HD MWF as per Nephrology. Pt is currently in HD. Also, due to her cirrhosis, she undergoes paracentesis every 2 weeks, S/P paracentesis 03/29/19. The patient is status post left foot debridement and amputation second and third toes as per Dr. Estrella 03/27/19. The patient is S/P LLE angiogram as per Dr Estrella, no intervention. Denies any fevers, chills, weakness, fatigue, Headache, Chest Pain, Shortness of breath, cough, palpitations, abdominal pain, N/V/D or changes in bowel or bladder habits. 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 Left arm AV fistula. Appendectomy. Hysterectomy. Bilateral cataracts. PE: GEN: 68 yo F, appears stated age. No acute distress. Alert and oriented. HEENT: Normocephalic, atraumatic. No facial asymmetry. Moist mucous membranes. CHEST: Regular rate and rhythm, +S1, +S2 LUNGS: Clear to auscultation bilaterally. No wheezes, rales, or rhonchi. Breathing appears symmetric and easy. ABD: Round, distended, nontender. +Bowel sounds throughout. No rebound or gua rding. EXT: Edema noted in the pretibial areas bilaterally. Left and right foot bandaged bilaterally. NEURO: Alert and oriented x 3. Cranial nerves III-XII are intact. No focal deficits appreciated. 03/21 blood culture x2. Negative 03/21 left foot WOUND CULTURE Final Organism 1 ENTEROBACTER CLOACAE COMPLEX QUANTITY OF GROWTH HEAVY Organism 2 STAPHYLOCOCCUS AUREUS QUANTITY OF GROWTH HEAVY Organism 3 STAPH.AUREUS METHICILLIN RESIS QUANTITY OF GROWTH HEAVY FULL REPORT IN LAB NOTES (eCW and Medent). 03/23 left foot wound culture Negative MRI left foot Once again there are findings are Charcot foot which appear unchanged compared to the prior study of 09/04/2018. Diffuse subchondral marrow edema is seen in the distal tibia and fibula as well as the tarsal bones, unchanged. No definite acute osteomyelitis. Diffuse edema and probable cellulitis. Large joint effusion at the tibiotalar joint. Complex fluid collection centered between the second and third metatarsals extends into the plantar soft-tissues along the flexor tendons and also extends into the dorsal soft-tissues. There may be internal foci or air and therefore this may represent an abscess. Electronically Signed by Aureliano Rivas MD 03/26/2019 04:22 P A&P: 68-year-old female admitted to [facility] 03/21/19 related to increased redness and bloody weeping from her left foot ulcer at the heel, which she has had since August [address] Baeza. There was also a new ulcer on the medial malleolus that is growing proximal to the old ulcer. Per the patient, new ulcer has evolved over the past 1-2 weeks, and was also assessed by Dr. Baeza when both wounds were debrided. Vascular surgery consulted 03/27/19 for further evaluation of left foot wound. Cellulitis of LLE 2/2 infected chronic wound/status post debridement and amputation second and third toes 03/27/[address] Estrella. POD3. Patient is afebrile. WBC 12.6. XR Imaging was negative for osteomyelitis. MRI of the Foot done on 03/24/19, no definitive osteomyelitis. Patient remains on Levaquin/clindamycin by mouth as per primary team. LLE angiogram completed 03/29/[address] Estrella indicating good blood flow to Left ankle then small vessel disease, not amenable to any intervention. Left foot healing likely going to be very difficult, Pt may need to consider Left BKA but Dr Estrella will plan to discuss further with Pt and family re further options and risk vs benefits. ESRD Hemodialysis as per nephrology. CHF. Fluid management as per nephrology. Chronic anemia. venofer as per nephrology. Aranesp as per nephrology. Monitor. Hx of Liver Cirrhosis s/p paracentesis on 03/29 CAD s/p 4 stents ASA, Plavix, Statin, BBlocker IDDM2, Charcot foot Cont insulin regimen as ordered Hx of Non-compliance Complicating medical care HTN Continue meds as ordered Hypothyroidism Continue Synthroid Anxiety/Insomnia Continue home meds GERD Continue Protonix Restless Leg Syndrome Cont ropinirole DVT ppx: heparin sc A-FIB/CHADSVASC A-FIB History Current/History of A-Fib/PAF?: No VS, I&O, 24H, Fishbone Vital Signs/I&O Vital Signs Date Time Temp Pulse Resp B/P (MAP) Pulse Ox O2 Delivery O2 Flow Rate FiO2 03/30/19 06:00 97.2 77 18 148/67 (94) 93 03/29/19 12:00 I&O- Last 24 Hours up to 6 AM 03/30/19 05:59 Intake Total 1440 ml Output Total 50 ml Balance 1390 ml Laboratory Data 24H LABS Laboratory Tests 2 03/29/19 11:21: Bedside Glucose (Misc Panel) 251H 03/29/19 11:49: Total Creatine Kinase 143, Creatine Kinase MB 4.0H, Creatine Kinase MB Relative Index 3.08, Troponin I < 0.02 03/29/19 16:48: Bedside Glucose (Misc Panel) 319H 03/29/19 20:07: Bedside Glucose (Misc Panel) 313H 03/30/19 05:16: Nucleated Red Blood Cells % (auto) 0.0, Anion Gap 8, Glomerular Filtration Rate 8.8L, Blood Urea Nitrogen 61H, Creatinine 5.16H, Sodium Level 132L, Potassium Level 4.5, Chloride Level 98, Carbon Dioxide Level 26, Calcium Level 6.9L CBC/BMP Laboratory Tests 03/30/19 05:16 Red Blood Count 3.37 L, Mean Corpuscular Volume 91.7, Mean Corpuscular Hemoglobin 27.3, Mean Corpuscular Hemoglobin Concent 29.8 L, Red Cell Distribution Width 19.1 H, Calcium Level 6.9 L Microbiology Microbiology 03/21/19 Blood Culture - Final, Complete NO GROWTH AFTER 5 DAYS 03/21/19 Blood Culture - Final, Complete NO GROWTH AFTER 5 DAYS 03/27/19 Gram Stain - Final, Complete 03/27/19 Wound Culture - Final, Complete Enterobacter Cloacae Complex Staph.aureus Methicillin Resis Strep Dysgalactiae Ssp Equisim 03/23/19 Anaerobic Culture - Final, Complete 03/21/19 Gram Stain - Final, Complete 03/21/19 Wound Culture - Final, Complete Enterobacter Cloacae Complex Staphylococcus Aureus Staph.aureus Methicillin Resis Trini Vieira March 30, 2019 10:02
--- NOTE | 2019-03-30 11:07 | REP ---
Ultrasound-guided paracentesis The procedure was performed under the direct supervision of Dr. Rivas. The risks and benefits of the procedure were explained to the patient and informed consent was obtained. The largest pocket of fluid was localized in the right flank using ultrasound guidance. The skin was prepped and draped in a sterile fashion. 1% lidocaine was used as a local anesthetic. An 8-Latvian multi side-hole catheter was inserted using trocar technique. 8300 ml of yellow fluid was withdrawn and discarded. The patient tolerated the procedure well and there were no immediate complications. After the appropriate amount of monitored convalescence the patient was discharged from the department. Reviewed by ANTONIO Curiel 03/29/2019 04:36 P Electronically Signed by Aureliano Rivas MD 03/30/2019 10:59 A
--- NOTE | 2019-03-30 12:22 | IPNPDOC ---
Subjective Date Seen The patient was seen on 03/30/19. Subjective Chief Complaint/HPI Patient seen and examined at bedside. No acute overnight events noted. Objective Physical Examination General Exam: Positive: Alert, Cooperative, No Acute Distress ENT Exam: Positive: Atraumatic, Mucous membr. moist/pink Chest Exam: Positive: Diminished Heart Exam: Positive: Rate Normal, Normal S1, Normal S2 Abdomen Exam: Positive: Soft, Other (distended, positive fluid wave); Negative: Tenderness Extremity Exam: Positive: Swelling (2+ pitting edema in the lower extremities bilaterally,); Negative: Tenderness Skin Exam: Positive: Other skin issue (left foot noted to be wrapped in surgical dressing.) Psych Exam: Positive: Oriented x 3 Assessment /Plan Plan/VTE VTE Prophylaxis Ordered?: Yes Plan Cellulitis of LLE 12/30 infected chronic wound XR Imaging was negative for osteomyelitis, which she does have a hx of and is s/p amputations MRI of the Foot done on 03/24/19 revealed no definitive findings of acute osteomyelitis Follows with Dr. Baeza,who has been consulted here. s/p Drainage of the foot on 03/24. s/p Vascular surgery intervention of the left lower extremity with further debridement and amputation of 2nd and 3rd toe on 03/27 s/p angiogram of the LLE with Vascular surgery on 03/29/19--patient to need Left BKA, will be addressed with patient/family by Vascular Surgery Continue PO Clindamycin and Levaquin based on culture susceptibilities We will follow up with the patient's decision regarding amputation ESRD on HD MWF History of noncompliance with dialysis Nephrology on board HFpEF, grade II diastolic dysfxn volume optimization via Dialysis as per Nephrology Hx of Liver Cirrhosis s/p paracentesis on 03/23 with removal of 8.2L of fluid s/p paracentesis on 03/29 with removal of 8.4L of fluid She will need this done on a weekly basis CAD s/p 4 stents Continue ASA, Plavix, Statin, BBlocker IDDM2, Charcot foot Cont insulin regimen as ordered Hx of Non-compliance Complicating medical care HTN Continue meds as ordered Hypothyroidism Continue Synthroid Anxiety/Insomnia Continue home meds GERD Continue Protonix Restless Leg Syndrome Cont ropinirole DVT ppx: heparin sc VS, I&O, 24H, Fishbone Vital Signs/I&O Vital Signs Date Time Temp Pulse Resp B/P (MAP) Pulse Ox O2 Delivery O2 Flow Rate FiO2 03/30/19 06:00 97.2 77 18 148/67 (94) 93 03/29/19 12:00 I&O- Last 24 Hours up to 6 AM 03/30/19 06:00 Intake Total 1500 ml Output Total 50 ml Balance 1450 ml Laboratory Data 24H LABS Laboratory Tests 2 03/29/19 16:48: Bedside Glucose (Misc Panel) 319H 03/29/19 20:07: Bedside Glucose (Misc Panel) 313H 03/30/19 05:16: Nucleated Red Blood Cells % (auto) 0.0, Anion Gap 8, Glomerular Filtration Rate 8.8L, Blood Urea Nitrogen 61H, Creatinine 5.16H, Sodium Level 132L, Potassium Level 4.5, Chloride Level 98, Carbon Dioxide Level 26, Calcium Level 6.9L 03/30/19 11:55: Bedside Glucose (Misc Panel) 274H CBC/BMP Laboratory Tests 03/30/19 05:16 Red Blood Count 3.37 L, Mean Corpuscular Volume 91.7, Mean Corpuscular Hemoglobin 27.3, Mean Corpuscular Hemoglobin Concent 29.8 L, Red Cell Distribution Width 19.1 H, Calcium Level 6.9 L Microbiology Microbiology 03/21/19 Blood Culture - Final, Complete NO GROWTH AFTER 5 DAYS 03/21/19 Blood Culture - Final, Complete NO GROWTH AFTER 5 DAYS 03/27/19 Gram Stain - Final, Complete 03/27/19 Wound Culture - Final, Complete Enterobacter Cloacae Complex Staph.aureus Methicillin Resis Strep Dysgalactiae Ssp Equisim 03/23/19 Anaerobic Culture - Final, Complete 03/21/19 Gram Stain - Final, Complete 03/21/19 Wound Culture - Final, Complete Enterobacter Cloacae Complex Staphylococcus Aureus Staph.aureus Methicillin Resis JENISE JAIME MD March 30, 2019 12:22
[2019-03-30 14:00] VITALS: BP 144/65
--- NOTE | 2019-03-30 14:59 | IPN ---
DATE OF SERVICE: 03/30/2019 SUBJECTIVE: Patient was seen and examined at the bedside today, morning during hemodialysis procedure. She is tolerating the dialysis but blood pressures are low. Ultrafiltration goal was reduced. She also got the ascitic tap done yesterday and almost 6.3 liters of fluid was removed. Patient was also informed that she has a very poor blood supply in the Charcot infected foot and she would need left below-knee amputation. Patient is still considering her options. OBJECTIVE: Vital signs: Temperature is 97.2 degrees Fahrenheit, blood pressure 148/67, pulse is 77, respiratory rate of 18, saturating 93% on room air. Intake and output: Urine output recorded is 50 mL. Paracentesis is not recorded here. Patient reports that she got 6.3 liters removed. Weight in the bed scale is 81 kg. PHYSICAL EXAM: General: Patient is awake, alert, oriented times three, laying in bed, getting hemodialysis done. Head and neck exam: Extraocular muscles intact. Pupils equally round and reactive to light. Mucous membranes are moist. Neck is supple. There is no jugular venous distention (JVD). Cardiovascular: S1, S2. 2+ edema of the bilateral lower extremities. Respiratory: Chest is clear to auscultation bilaterally. Bilateral equal air entry. Abdomen is distended. Ascites is significantly better with the ascitic tap done yesterday. She still has abdominal wall edema. Musculoskeletal: She has a dressing on the left foot and a dressing on toes of the right foot as well. 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 LAB REVIEW: Complete blood count (CBC) showed a WBC of 12.6, hemoglobin 9.2, platelets of 159. Basic metabolic panel (BMP) showed sodium 132, potassium 4.5, chloride 98, bicarbonate 26, BUN 61, creatinine is 5.1. IMAGING: The paracentesis report just came back and she got 8.3 liters of fluid removed yesterday. CURRENT INPATIENT MEDICATIONS: Patient's medications were all reviewed by me. She continues to be on Levaquin and clindamycin. Levaquin dose was changed to 250 mg by mouth daily yesterday. Trazodone dose has been decreased to 50 mg by mouth daily. ASSESSMENT AND PLAN: 1. End-stage renal disease, on hemodialysis. Today is patient's regular dialysis day as per Tuesday, Tuesday, Tuesday schedule. Blood pressures are soft. We will try to remove at least 1 liter of fluid as tolerated by her blood pressure. 2. Anemia secondary to end-stage renal disease. Hemoglobin is 9.2, which is acceptable. Continue current dose of Venofer and Aranesp with dialysis. 3. Recurrent ascites. Patient got the ascitic tap done yesterday; 8.3 liters of fluid was removed. 4. Decompensated diastolic congestive heart failure. Patient has low blood pressures. It is difficult to remove the fluid. Ultrafiltration target is 1 liter. 5. Left foot abscess and Charcot foot. Patient is getting clindamycin and Levaquin. She has Enterobacter cloacae and Staphylococcus aureus positive in the cultures. Vascular surgery is recommending left below-knee amputation.
[2019-03-30] MEDS: rOPINIRole 1MG TAB PO SCH (21:43)
[2019-03-30] MEDS: SIMVASTATIN 20 MG TAB PO SCH (21:43)
[2019-03-30 22:00] VITALS: BP 140/62
[2019-03-31] MEDS: PERCOCET 5MG/325MG TAB PO PRN ×4 (02:53→23:22)
[2019-03-31] MEDS: LEVOTHYROXINE 125MCG TABLET (0.125MG) PO SCH (05:23)
[2019-03-31 06:00] VITALS: BP 130/65
[2019-03-31 06:37] LABS: HEMATOCRIT 32.7 % (36.0-47.0); HEMOGLOBIN 9.9 g/dl (12.0-15.5); MEAN CORPUSCULAR HEMOGLOBIN 27.7 pg (27.0-33.0); MEAN CORPUSCULAR HGB CONC 30.3 g/dl (32.0-36.5); MEAN CORPUSCULAR VOLUME 91.6 fl (80.0-96.0); PLATELET COUNT, AUTOMATED 174 10^3/uL (150-450); RED BLOOD COUNT 3.57 10^6/uL (4.00-5.40); WHITE BLOOD COUNT 14.6 10^3/uL (4.0-10.0)
[2019-03-31 06:56] LABS: CALCIUM LEVEL 7.4 MG/DL (8.8-10.2); CREATININE FOR GFR 4.09 MG/DL (0.55-1.30); GLOMERULAR FILTRATION RATE 11.5 (>39); POTASSIUM SERUM 3.9 MEQ/L (3.5-5.1)
[2019-03-31] MEDS: HumaLOG INSULIN (NovoLOG) PER UNIT SC SCH ×4 (08:04→22:26)
[2019-03-31] MEDS: HEPARIN SOD (PORCINE) 5000 UNITS/ML VIAL SC SCH ×2 (08:04→22:26)
[2019-03-31] MEDS: LEVEMIR (INSULIN DETEMIR) 1 UNITS/0.01ML SC SCH ×2 (08:05→22:26)
[2019-03-31] MEDS: CALCIUM CARBONATE 500 MG CHEW U/D PO SCH ×3 (08:05→17:13)
[2019-03-31] MEDS: LevoFLOXacin 250 MG TABLET PO SCH (08:06)
[2019-03-31] MEDS: DULoxetine 30 MG CAP (CYMBALTA) PO SCH (08:06)
[2019-03-31] MEDS: EUCERIN 120GM CREAM TOP SCH ×2 (08:06→22:25)
[2019-03-31] MEDS: GABAPENTIN 300 MG CAP PO SCH ×2 (08:06→22:27)
[2019-03-31] MEDS: METOPROLOL SUCC *XL* 25MG TAB (TopROL *XL*) PO SCH ×2 (08:06→22:28)
[2019-03-31] MEDS: PANTOPRAZOLE 40MG TAB (PROTONIX) PO SCH (08:06)
[2019-03-31] MEDS: CLINDAMYCIN 150 MG CAP PO SCH (08:06)
[2019-03-31] MEDS: CLOPIDOGREL 75 MG TAB PO SCH ×2 (08:06→08:08)
[2019-03-31] MEDS ORDERED: NYSTATIN 100,000 UNITS/GM TOPICAL PWD 15 GM TOP PRN (10:30)
[2019-03-31] MEDS ORDERED: diphenhydrAMINE 12.5MG/5ML ELIXIR UDC PO ONE (11:00)
[2019-03-31] MEDS ORDERED: VANCOMYCIN HCL 1,000 MG, VIAL MATE ADAPTER 1 EACH in D5W 250 ML IV SCH (11:15)
[2019-03-31] MEDS: PIPERACILLIN/TAZOBACTAM SOD 2.25 GM in D5W MINI-BAG PLUS 50 ML IV SCH ×2 (11:46→22:28)
--- NOTE | 2019-03-31 11:57 | IPNPDOC ---
Subjective Date Seen The patient was seen on 03/31/19. Subjective Chief Complaint/HPI Patient seen and examined at the bedside. She tells me that she is upset this morning after learning about the prospect of having her left foot amputated. She tells me that she understands that this needs to be done and is on board for this. Objective Physical Examination General Exam: Positive: Alert, Cooperative, Mild Distress (tearful about medical condition) ENT Exam: Positive: Atraumatic, Mucous membr. moist/pink Chest Exam: Positive: Diminished Heart Exam: Positive: Rate Normal, Normal S1, Normal S2 Abdomen Exam: Positive: Soft, Other (distended, positive fluid wave); Negative: Tenderness Extremity Exam: Positive: Swelling (2+ pitting edema in the lower extremities bilaterally,); Negative: Tenderness Skin Exam: Positive: Other skin issue (left foot noted to be wrapped in surgical dressing.) Psych Exam: Positive: Oriented x 3 Assessment /Plan Plan/VTE VTE Prophylaxis Ordered?: Yes Plan Cellulitis of LLE 2/ infected chronic wound XR Imaging was negative for osteomyelitis, which she does have a hx of and is s/p amputations MRI of the Foot done on 03/24/19 revealed no definitive findings of acute osteomyelitis Follows with Dr. Baeza,who has been consulted here. s/p Drainage of the foot on 03/24. s/p Vascular surgery intervention of the left lower extremity with further debridement and amputation of 2nd and 3rd toe on 03/27 s/p angiogram of the LLE with Vascular surgery on 03/29/19--patient to need Left BKA as per Dr. Estrella The patient's white blood cell count has continued to trend upward over the last 3 days. I did discuss this with Dr. Estrella of vascular surgery this morning, and my concern is that the patient is at a high risk of developing sepsis from this infection if we do not surgically intervene soon. Dr. Estrella will plan to take the patient to the OR for amputation. In the meantime, we will broaden the patient's antibiotic coverage with vancomycin and Zosyn ESRD on HD MWF History of noncompliance with dialysis Nephrology on board HFpEF, grade II diastolic dysfxn volume optimization via Dialysis as per Nephrology Hx of Liver Cirrhosis s/p paracentesis on 03/23 with removal of 8.2L of fluid s/p paracentesis on 03/29 with removal of 8.4L of fluid She will need this done on a weekly basis CAD s/p 4 stents Continue ASA, Plavix, Statin, BBlocker IDDM2, Charcot foot Cont insulin regimen as ordered Hx of Non-compliance Complicating medical care HTN Continue meds as ordered Hypothyroidism Continue Synthroid Anxiety/Insomnia Continue home meds GERD Continue Protonix Restless Leg Syndrome Cont ropinirole DVT ppx: heparin sc VS, I&O, 24H, Fishbone Vital Signs/I&O Vital Signs Date Time Temp Pulse Resp B/P (MAP) Pulse Ox O2 Delivery O2 Flow Rate FiO2 03/31/19 11:46 17 03/31/19 08:06 76 125/57 03/31/19 06:00 97.8 94 03/29/19 12:00 l I&O- Last 24 Hours up to 6 AM 03/31/19 05:59 Intake Total 1620 ml Output Total 1500 ml Balance 120 ml Laboratory Data 24H LABS Laboratory Tests 2 03/30/19 11:55: Bedside Glucose (Misc Panel) 274H 03/30/19 16:51: Bedside Glucose (Misc Panel) 383H 03/30/19 20:50: Bedside Glucose (Misc Panel) 343H 03/31/19 05:53: Nucleated Red Blood Cells % (auto) 0.0, Anion Gap 6L, Glomerular Filtration Rate 11.5L, Blood Urea Nitrogen 48H, Creatinine 4.09H, Sodium Level 136, Potassium Level 3.9, Chloride Level 101, Carbon Dioxide Level 29, Calcium Level 7.4L 03/31/19 11:28: Bedside Glucose (Misc Panel) 261H CBC/BMP Laboratory Tests 03/31/19 05:53 Red Blood Count 3.57 L, Mean Corpuscular Volume 91.6, Mean Corpuscular Hemogl obin 27.7, Mean Corpuscular Hemoglobin Concent 30.3 L, Red Cell Distribution Width 19.1 H, Calcium Level 7.4 L Microbiology Microbiology 03/21/19 Blood Culture - Final, Complete NO GROWTH AFTER 5 DAYS 03/21/19 Blood Culture - Final, Complete NO GROWTH AFTER 5 DAYS 03/27/19 Gram Stain - Final, Complete 03/27/19 Wound Culture - Final, Complete Enterobacter Cloacae Complex Staph.aureus Methicillin Resis Strep Dysgalactiae Ssp Equisim 03/23/19 Anaerobic Culture - Final, Complete 03/21/19 Gram Stain - Final, Complete 03/21/19 Wound Culture - Final, Complete Enterobacter Cloacae Complex Staphylococcus Aureus Staph.aureus Methicillin Resis JENISE JAIME MD March 31, 2019 11:57
[2019-03-31] MEDS: VANCOMYCIN HCL 1,000 MG, VIAL MATE ADAPTER 1 EACH in D5W 250 ML IV SCH ×2 (12:36→14:11)
[2019-03-31 14:00] VITALS: BP 129/60
[2019-03-31] MEDS: **VANCO AFTER HD** MISC XX SCH (14:20)
[2019-03-31 22:00] VITALS: BP 132/70
[2019-03-31] MEDS: SIMVASTATIN 20 MG TAB PO SCH (22:27)
[2019-03-31] MEDS: rOPINIRole 1MG TAB PO SCH (22:27)
[2019-04-01] MEDS ORDERED: diphenhydrAMINE 25 MG CAP PO ONE (03:15)
[2019-04-01 06:00] VITALS: BP 145/68
[2019-04-01] MEDS: LEVOTHYROXINE 125MCG TABLET (0.125MG) PO SCH (06:05)
[2019-04-01] MEDS: PERCOCET 5MG/325MG TAB PO PRN ×2 (06:10→12:33)
[2019-04-01] MEDS: CALCIUM CARBONATE 500 MG CHEW U/D PO SCH ×3 (07:26→17:30)
[2019-04-01] MEDS: CLOPIDOGREL 75 MG TAB PO SCH (07:27)
[2019-04-01] MEDS: HumaLOG INSULIN (NovoLOG) PER UNIT SC SCH ×4 (07:30→22:02)
[2019-04-01 07:32] LABS: HEMATOCRIT 32.2 % (36.0-47.0); HEMOGLOBIN 9.7 g/dl (12.0-15.5); MEAN CORPUSCULAR HGB CONC 30.1 g/dl (32.0-36.5); MEAN CORPUSCULAR VOLUME 92.8 fl (80.0-96.0); PLATELET COUNT, AUTOMATED 176 10^3/uL (150-450); RED BLOOD COUNT 3.47 10^6/uL (4.00-5.40); WHITE BLOOD COUNT 13.6 10^3/uL (4.0-10.0)
[2019-04-01 07:56] LABS: CALCIUM LEVEL 6.9 MG/DL (8.8-10.2); CREATININE FOR GFR 5.35 MG/DL (0.55-1.30); GLOMERULAR FILTRATION RATE 8.4 (>39); POTASSIUM SERUM 5.1 MEQ/L (3.5-5.1)
[2019-04-01] MEDS: EUCERIN 120GM CREAM TOP SCH ×2 (09:00→22:03)
[2019-04-01] MEDS: LEVEMIR (INSULIN DETEMIR) 1 UNITS/0.01ML SC SCH ×2 (09:00→22:03)
[2019-04-01] MEDS ORDERED: LEVEMIR (INSULIN DETEMIR) 1 UNITS/0.01ML SC ONE (09:30)
[2019-04-01] MEDS: GABAPENTIN 300 MG CAP PO SCH ×2 (09:31→22:01)
[2019-04-01] MEDS: DULoxetine 30 MG CAP (CYMBALTA) PO SCH (09:31)
[2019-04-01] MEDS: METOPROLOL SUCC *XL* 25MG TAB (TopROL *XL*) PO SCH ×2 (09:32→21:00)
[2019-04-01] MEDS: HEPARIN SOD (PORCINE) 5000 UNITS/ML VIAL SC SCH ×2 (09:32→22:01)
[2019-04-01] MEDS: PANTOPRAZOLE 40MG TAB (PROTONIX) PO SCH (09:34)
--- NOTE | 2019-04-01 11:02 | IPNPDOC ---
Subjective Date Seen The patient was seen on 04/01/19. Subjective Chief Complaint/HPI Patient seen and examined at the bedside. Denies any acute overnight complaints. She is scheduled for vascular surgical intervention this morning. Objective Physical Examination General Exam: Positive: Alert, Cooperative, No Acute Distress ENT Exam: Positive: Atraumatic, Mucous membr. moist/pink Chest Exam: Positive: Diminished Heart Exam: Positive: Rate Normal, Normal S1, Normal S2 Abdomen Exam: Positive: Soft, Other (distended, positive fluid wave); Negative: Tenderness Extremity Exam: Positive: Swelling (2+ pitting edema in the lower extremities bilaterally,); Negative: Tenderness Skin Exam: Positive: Other skin issue (left foot noted to be wrapped in s urgical dressing.) Psych Exam: Positive: Oriented x 3 Assessment /Plan Plan/VTE VTE Prophylaxis Ordered?: Yes Plan Cellulitis of LLE 2/2 infected chronic wound XR Imaging was negative for osteomyelitis, which she does have a hx of and is s/p amputations MRI of the Foot done on 03/24/19 revealed no definitive findings of acute osteomyelitis Follows with Dr. Baeza,who has been consulted here. s/p Drainage of the foot on 03/24. s/p Vascular surgery intervention of the left lower extremity with further debridement and amputation of 2nd and 3rd toe on 03/27 s/p angiogram of the LLE with Vascular surgery on 03/29/19--patient to need Left BKA as per Dr. Estrella I did discuss this with Dr. Estrella of vascular surgery on 03/31/19, and my concern is that the patient is at a high risk of developing sepsis from this infection if we do not surgically intervene soon. Dr. Estrella will plan to take the patient to the OR for amputation today Cont antibiotic coverage with vancomycin and Zosyn ESRD on HD MWF History of noncompliance with dialysis Nephrology on board HFpEF, grade II diastolic dysfxn volume optimization via Dialysis as per Nephrology Hx of Liver Cirrhosis s/p paracentesis on 03/23 with removal of 8.2L of fluid s/p paracentesis on 03/29 with removal of 8.4L of fluid She will need this done on a weekly basis CAD s/p 4 stents Continue ASA, Plavix, Statin, BBlocker IDDM2, Charcot foot Cont insulin regimen as ordered Hx of Non-compliance Complicating medical care HTN Continue meds as ordered Hypothyroidism Continue Synthroid Anxiety/Insomnia Continue home meds GERD Continue Protonix Restless Leg Syndrome Cont ropinirole DVT ppx: heparin sc VS, I&O, 24H, Fishbone Vital Signs/I&O Vital Signs Date Time Temp Pulse Resp B/P (MAP) Pulse Ox O2 Delivery O2 Flow Rate FiO2 04/01/19 09:32 76 123/57 04/01/19 07:00 19 04/01/19 06:00 97.2 95 03/29/19 12:00 I&O- Last 24 Hours up to 6 AM 04/01/19 05:59 Intake Total 2050 ml Output Total 0 ml Balance 2050 ml Laboratory Data 24H LABS Laboratory Tests 2 03/31/19 11:28: Bedside Glucose (Misc Panel) 261H 03/31/19 16:25: Bedside Glucose (Misc Panel) 312H 03/31/19 21:06: Bedside Glucose (Misc Panel) 278H 04/01/19 07:15: Nucleated Red Blood Cells % (auto) 0.1H, Anion Gap 10, Glomerular Filtration Rate 8.4L, Blood Urea Nitrogen 68H, Creatinine 5.35H, Sodium Level 134L, Potassium Level 5.1#, Chloride Level 102, Carbon Dioxide Level 22, Calcium Level 6.9L CBC/BMP Laboratory Tests 04/01/19 07:15 Red Blood Count 3.47 L, Mean Corpuscular Volume 92.8, Mean Corpuscular Hemoglobin 28.0, Mean Corpuscular Hemoglobin Concent 30.1 L, Red Cell Distribution Width 19.6 H, Calcium Level 6.9 L Microbiology Microbiology 03/27/19 Gram Stain - Final, Complete 03/27/19 Wound Culture - Final, Complete Enterobacter Cloacae Complex Staph.aureus Methicillin Resis Strep Dysgalactiae Ssp Equisim 03/23/19 Anaerobic Culture - Final, Complete JENISE JAIME MD April 01, 2019 11:02
[2019-04-01] MEDS: PIPERACILLIN/TAZOBACTAM SOD 2.25 GM in D5W MINI-BAG PLUS 50 ML IV SCH ×2 (11:25→23:13)
[2019-04-01] MEDS: **VANCO AFTER HD** MISC XX SCH (12:07)
[2019-04-01 14:00] VITALS: BP 149/68
--- NOTE | 2019-04-01 14:40 | IPN ---
DATE OF SERVICE: 03/31/2019 SUBJECTIVE: The patient was seen and examined at the bedside today morning. She was dialyzed yesterday, 1.5 liters of fluid was removed. She is afebrile and hemodynamically stable. She has finally agreed for left below-knee amputation. She does not know the time of surgery so far. OBJECTIVE: Vital signs: Temperature is 96.3 degrees Fahrenheit, blood pressure 129/60, pulse is 69, respiratory rate of 18, saturating 97% on room air. Intake and output: There is no urine output recorded. Ultrafiltration with hemodialysis was 1.5 liters. Weight in the bed scale is 81.2 kg. PHYSICAL EXAMINATION: General: The patient is awake, alert, oriented times three, laying in bed, in no apparent distress. Head and neck exam: Extraocular muscles intact. Pupils equally round and reactive to light. Mucous membranes are moist. Neck is supple. There is no jugular venous distention (JVD). Cardiovascular: S1-S2, 2+ edema of the bilateral lower extremities. Respiratory: Chest is clear to auscultation bilaterally. Bilateral equal air entry. Abdomen: Soft, distended, mild amount of ascites and abdominal wall edema was noted. Musculoskeletal: She has a dressing on the left foot and a dressing on the toes of the of the right foot. [employer]: The patient is awake and alert. She follows commands and moves upper extremities. LAB REVIEW: CBC showed WBC of 14.6, hemoglobin 9.9, platelets of 174. BMP showed sodium 136, potassium 3.9, chloride 101, bicarb 29, BUN 48, creatinine is 4. IMAGING: No new imaging is done. CURRENT INPATIENT MEDICATIONS: The patient's medications were all reviewed by me. She continues to be on IV vancomycin and IV Zosyn which was stopped today morning, oral clindamycin and oral Levaquin has been stopped. No other change in the medications today as compared with yesterday. ASSESSMENT AND PLAN: 1. End-stage renal disease on hemodialysis. The patient was dialyzed yesterday according to her regular Tuesday, Tuesday, Tuesday schedule 1.5 liters of fluid was removed. Next hemodialysis will be on next coming Tuesday after the weekend. 2. Anemia secondary to end-stage renal disease. The patient continues to be on IV iron and Aranesp, hemoglobin is 9.9 which is optimal. 3. Recurrent ascites. Latest ascites tap was done before the weekend, 8.3 liters of fluid was removed. 4. Decompensated diastolic congestive heart failure. Volume status is optimized with dialysis, however, because of sepsis and soft blood pressures we are unable to remove much fluid. 5. Left foot abscess and Charcot's foot. The patient has been switched back to IV antibiotics now. Vascular surgery plans to do left below-knee amputation. She has persistent leukocytosis. 6. Chronic kidney disease, mineral bone disease. Continue current dose of Tums 1 gram by mouth three times a day. The patient was also on Venofer but she stopped taking it. 7. Diabetes mellitus type 2 insulin dependent. The patient is currently on Levemir and insulin sliding scale, glucose levels are still high. Insulin dose adjustment is as per primary team.
[2019-04-01 22:00] VITALS: BP 98/68
[2019-04-01] MEDS: rOPINIRole 1MG TAB PO SCH (22:01)
[2019-04-01] MEDS: SIMVASTATIN 20 MG TAB PO SCH (22:01)
[2019-04-02] VITALS (7 sets, daily range): BP systolic 96–133; BP diastolic 58–64
[2019-04-02] MEDS: PERCOCET 5MG/325MG TAB PO PRN ×2 (03:55→13:10)
--- NOTE | 2019-04-02 04:16 | IPN ---
DATE OF SERVICE: 04/01/2019 SUBJECTIVE: The patient is seen and examined this morning at the bedside. She denies any acute overnight events. She is scheduled for surgical intervention this afternoon for left caygy-hoj-huhe amputation. She is in fair spirits. VITAL SIGNS: Temperature 97.2, pulse 70, respiratory rate 18, blood pressure 145/68 saturating 95% on room air. Intake yesterday was 1770. Weight on the bed scale today is 84.1 kg. PHYSICAL EXAMINATION: GENERAL: The patient is seen lying in bed. An elderly female awake, alert, and oriented times 2 in no acute distress. Extraocular muscles are intact. Tongue is moist. Jugular veins are mildly elevated. CARDIAC: S1, S2. There is bilateral edema in the lower extremities 1 to 2+. RESPIRATORY: Lungs are clear to auscultation but diminished at the bases. ABDOMEN: The abdomen is distended. There is ascitic fluid in place. There is some pitting edema in the flanks. MUSCULOSKELETAL: There is a dressing on the left foot and there is a chronic venous stasis changes. The left upper extremity fistula is patent with thrill and bruit. NEUROLOGIC: She is oriented times 3 and at baseline mentation, interactive, conversational and appropriate. LABORATORY DATA: White count 13.6, hemoglobin 9.7, platelets 176. Sodium 134, potassium 5.1, bicarbonate 22, glucose 276. INPATIENT MEDICATIONS: Reviewed by myself. She continues on vancomycin and Zosyn. The remainder of medications are unchanged from prior. PROBLEMS: 1. End-stage renal disease on hemodialysis on a Tuesday, Tuesday and Tuesday schedule. Next dialysis will be on Tuesday. There is hypervolemia on exam which is a chronic finding for her due to general noncompliance. I will try to increase the amount of fluid removed with dialysis as tolerated by her blood pressures. Her electrolytes are acceptable. Her fistula is in good use. 2. Recurrent ascites status post paracentesis times 2 on this admission. On the outpatient setting this will only be done one to two times per month as her Plavix does need to be held for 5 to 6 days with each tap and she does have a history of coronary artery disease. 3. Diastolic congestive heart failure with exacerbation. Patient is chronically volume overloaded due to her noncompliance with dialysis as an outpatient and noncompliance with fluid restriction. There is also recurrent ascites. We will continue to remove fluid as tolerated by her hemodynamics on dialysis. Her blood pressures have been soft over this admission and her blood pressure medications have been reduced. 4. Hypertension. Blood pressures are acceptable and she continues on low dose beta jeffrey only. 5. Anemia secondary to end-stage renal disease, iron deficiency and chronic inflammation. Hemoglobin 9.7 today and she continues on Aranesp and iron. There is no need for a transfusion at present. 6. Left foot abscess and Charcot foot pending left ievqk-zqh-gnic amputation today with vascular surgery continues on renally dosed antibiotics management per the primary team.
[2019-04-02 05:54] LABS: HEMATOCRIT 32.6 % (36.0-47.0); HEMOGLOBIN 9.8 g/dl (12.0-15.5); MEAN CORPUSCULAR HEMOGLOBIN 27.8 pg (27.0-33.0); MEAN CORPUSCULAR HGB CONC 30.1 g/dl (32.0-36.5); MEAN CORPUSCULAR VOLUME 92.6 fl (80.0-96.0); PLATELET COUNT, AUTOMATED 195 10^3/uL (150-450); RED BLOOD COUNT 3.52 10^6/uL (4.00-5.40); WHITE BLOOD COUNT 14.1 10^3/uL (4.0-10.0)
[2019-04-02] MEDS: DULoxetine 30 MG CAP (CYMBALTA) PO SCH (06:00)
[2019-04-02] MEDS: GABAPENTIN 300 MG CAP PO SCH ×2 (06:00→20:35)
[2019-04-02] MEDS: PANTOPRAZOLE 40MG TAB (PROTONIX) PO SCH (06:01)
[2019-04-02] MEDS: CALCIUM CARBONATE 500 MG CHEW U/D PO SCH ×3 (06:01→18:51)
[2019-04-02] MEDS: CLOPIDOGREL 75 MG TAB PO SCH (06:01)
[2019-04-02] MEDS: LEVOTHYROXINE 125MCG TABLET (0.125MG) PO SCH (06:01)
[2019-04-02] MEDS: METOPROLOL SUCC *XL* 25MG TAB (TopROL *XL*) PO SCH ×2 (06:01→20:35)
[2019-04-02 06:08] LABS: CALCIUM LEVEL 7.2 MG/DL (8.8-10.2); CREATININE FOR GFR 6.22 MG/DL (0.55-1.30); GLOMERULAR FILTRATION RATE 7.1 (>39); POTASSIUM SERUM 4.8 MEQ/L (3.5-5.1); VANCOMYCIN RANDOM 23.8 UG/ML
[2019-04-02] MEDS: HumaLOG INSULIN (NovoLOG) PER UNIT SC SCH ×6 (07:55→20:36)
[2019-04-02] MEDS: EUCERIN 120GM CREAM TOP SCH ×2 (07:56→20:36)
[2019-04-02] MEDS: HEPARIN SOD (PORCINE) 5000 UNITS/ML VIAL SC SCH ×2 (07:56→20:35)
--- NOTE | 2019-04-02 10:18 | IPNPDOC ---
Subjective Date Seen The patient was seen on 04/02/19. Subjective Chief Complaint/HPI Patient seen and examined while being dialyzed this morning. She is scheduled for vascular surgical intervention this afternoon with Dr. Estrella. She denies any acute complaints at this time. Objective Physical Examination General Exam: Positive: Alert, Cooperative, No Acute Distress ENT Exam: Positive: Atraumatic, Mucous membr. moist/pink Chest Exam: Positive: Diminished Heart Exam: Positive: Rate Normal, Normal S1, Normal S2 Abdomen Exam: Positive: Soft, Other (distended, positive fluid wave); Negative: Tenderness Extremity Exam: Positive: Swelling (2+ pitting edema in the lower extremities bilaterally,); Negative: Tenderness Skin Exam: Positive: Other skin issue (left foot noted to be wrapped in surgical dressing.) Psych Exam: Positive: Oriented x 3 Assessment /Plan Plan/VTE VTE Prophylaxis Ordered?: Yes Plan Cellulitis of LLE 2/2 infected chronic wound XR Imaging was negative for osteomyelitis on admission MRI of the Foot done on 03/24/19 revealed no definitive findings of acute osteomyelitis Follows with Dr. Baeza,who has been consulted here. s/p Drainage of the foot on 03/24. s/p Vascular surgery intervention of the left lower extremity with further geovanna ridement and amputation of 2nd and 3rd toe on 03/27 s/p angiogram of the LLE with Vascular surgery on 03/29/19-->patient to need Left BKA as per Dr. Estrella I did discuss this with Dr. Estrella of vascular surgery on 03/31/19, and my concern is that the patient is at a high risk of developing sepsis from this infection if we do not surgically intervene soon. Dr. Estrella will plan to take the patient to the OR for amputation today Cont antibiotic coverage with vancomycin and Zosyn ESRD on HD MWF History of noncompliance with dialysis Nephrology on board HFpEF, grade II diastolic dysfxn volume optimization via Dialysis as per Nephrology Hx of Liver Cirrhosis s/p paracentesis on 03/23 with removal of 8.2L of fluid s/p paracentesis on 03/29 with removal of 8.4L of fluid She will need this done on a weekly basis CAD s/p 4 stents Continue ASA, Plavix, Statin, BBlocker IDDM2, Charcot foot Cont insulin regimen as ordered Hx of Non-compliance Complicating medical care HTN Continue meds as ordered Hypothyroidism Continue Synthroid Anxiety/Insomnia Continue home meds GERD Continue Protonix Restless Leg Syndrome Cont ropinirole DVT ppx: heparin sc VS, I&O, 24H, Fishbone Vital Signs/I&O Vital Signs Date Time Temp Pulse Resp B/P (MAP) Pulse Ox O2 Delivery O2 Flow Rate FiO2 04/02/19 06:01 72 96/61 04/02/19 06:00 97.2 18 98 03/29/19 12:00 I&O- Last 24 Hours up to 6 AM 04/02/19 06:00 Intake Total 1130 ml Output Total 460 ml Balance 670 ml Laboratory Data 24H LABS Laboratory Tests 2 04/01/19 12:00: Bedside Glucose (Misc Panel) 246H 04/01/19 21:40: Bedside Glucose (Misc Panel) 269H 04/02/19 05:20: Nucleated Red Blood Cells % (auto) 0.1H, Anion Gap 9, Glomerular Filtration Rate 7.1L, Blood Urea Nitrogen 77H, Creatinine 6.22H, Sodium Level 133L, Potassium Level 4.8, Chloride Level 100, Carbon Dioxide Level 24, Calcium Level 7.2L, Random Vancomycin Level 23.8 CBC/BMP Laboratory Tests 04/02/19 05:20 Red Blood Count 3.52 L, Mean Corpuscular Volume 92.6, Mean Corpuscular Hemoglobin 27.8, Mean Corpuscular Hemoglobin Concent 30.1 L, Red Cell Distribution Width 20.1 H, Calcium Level 7.2 L Microbiology Microbiology 03/27/19 Gram Stain - Final, Complete 03/27/19 Wound Culture - Final, Complete Enterobacter Cloacae Complex Staph.aureus Methicillin Resis Strep Dysgalactiae Ssp Equisim 03/23/19 Anaerobic Culture - Final, Complete JENISE JAIME MD April 02, 2019 10:17
[2019-04-02] MEDS ORDERED: LIDOCAINE 1% SDV 5 ML VIAL SQ ONE (10:30)
--- NOTE | 2019-04-02 11:23 | PHACANCOPD ---
PHARMACY VANCOMYCIN DOSING Pt Demographics Demographics Patient Age:68 , Weight:88.700 , Gender: female Adjusted Body Weight Date: 04/02/19, Adjusted Body Weight: Kg Events Past 24 Hours Events Past 24 Hours: YES: Other Vancomycin Vancomycin Target Ranges: 10-20 mcg/ml Vancomycin Load Y/N: No Load Dose Date Time Vancomycin Load Dose: Date: Time: Vancomycin Dose Date: 04/02/19. Current Vancomycin Dose: Intermittent Dosing?: Yes Labs Labs Laboratory Tests 04/02/19 05:20 Red Blood Count 3.52 L, Mean Corpuscular Volume 92.6, Mean Corpuscular Hemoglobin 27.8, Mean Corpuscular Hemoglobin Concent 30.1 L, Red Cell Distribution Width 20.1 H, Calcium Level 7.2 L Micro Microbiology 03/27/19 Gram Stain - Final, Complete 03/27/19 Wound Culture - Final, Complete Enterobacter Cloacae Complex Staph.aureus Methicillin Resis Strep Dysgalactiae Ssp Equisim 03/23/19 Anaerobic Culture - Final, Complete Creatinine Clearance Date:04/02/19. Creatinine Clearance: [8.5]. Assessment and Plan Maintaining Current Dose?: No Reason for dose change: Trough too high, Other Pharmacist Note Pharmacist Note Date: 04/02/19. Pharmacist note: Random level came back this morning at 23.9. Patient is receiving dialysis today. Changed dose to 750mg IV vancomycin after HD. Scheduled random level for morning. Will continue to monitor patint and adjust dose as needed. CHAD CASAREZ PHARMACY April 02, 2019 11:23
[2019-04-02] MEDS ORDERED: ALPRAZolam 0.25 MG TAB PO PRN (11:30)
--- NOTE | 2019-04-02 12:09 | IPN ---
DATE: 04/02/2019 SUBJECTIVE: Patient is seen and examined this morning in the hemodialysis unit receiving her maintenance treatment. Her blood pressures are soft and we have decreased the goal fluid removal to just 1 liter as tolerated. She is receiving heparin-free dialysis as she is scheduled for the operating room (OR) later this afternoon. She denies any complaints. No chest pain. No shortness of breath. VITAL SIGNS: Temperature 97.2, pulse 77, respiratory rate 18, blood pressure 96/61, saturating 98% on room air. Intake yesterday was 720. Dialysis today goal fluid removal will be a liter as tolerated by hemodynamics. General: Patient is seen in the hemodialysis unit receiving her treatment lying in bed fairly flat, elderly female, drowsy but easily arousable, oriented and in no acute distress. Extraocular muscles intact. Tongue is moist. Jugular veins are mildly elevated. Cardiac: S1, S2. There is bilateral edema in the lower extremities 1-2+. Lungs shows symmetric air entry bilaterally. No rhonchus or rale. The abdomen is distended. There is ascitic fluid in place. Musculoskeletal: There is a dressing on the left foot. The wounds are not examined. There is chronic venostasis changes bilaterally. The left upper extremity fistula is presented in use. Neurologic: She is drowsy but easily arousable. Answers questions appropriately and is oriented. LABS: Sodium 133, potassium 4.8, bicarbonate 24, glucose 262. White count 14.1, hemoglobin 9.8. INPATIENT MEDICATIONS: She continues on renally dosed vancomycin and Zofran. The remainder of her medications are unchanged from prior. PROBLEMS: 1. End-stage renal disease on hemodialysis on Tuesday, Tuesday, Tuesday schedule. Patient's blood pressures are soft. Systolic is in the 90s on dialysis this morning. She is asymptomatic, but I am decreasing the goal fluid removal to a maximum of 1 liter as tolerated by blood pressure, especially in view of her being scheduled for the OR later this afternoon. She is also receiving heparin-free dialysis today. Her electrolytes are acceptable and her fistula is in good use. 2. Hypertension: Presently, patient was borderline hypotension. Systolic has been in the 90s. She is not receiving any antihypertensives. Her last two doses of metoprolol were appropriately held by the nursing staff as per the hold parameters. Her goal fluid removal with dialysis today is decreased in view of her borderline blood pressures and I am also going to get an echocardiogram just to make sure that there is no significant pericardial effusion. More likely, the soft blood pressures are related to the on-going foot issues. 3. Recurrent ascites status post paracentesis times two on this admission. This is only performed one to two times per month in the outpatient setting as her Plavix does need to be held for several days with each tap and she does have a history of coronary artery disease. 4. Diastolic congestive heart failure with exacerbation. The patient is chronically volume over-loaded due to noncompliance with the office as an outpatient and also noncompliant with fluid restrictions. There is also recurrent ascites. Unfortunately, not going to remove much fluid with dialysis today due to the soft blood pressures. All of her antihypertensives are presently held (metoprolol has not been recently administered). Followup echocardiogram which is being ordered. 5. Anemia secondary to end-stage renal disease, iron deficiency and chronic inflammation. Hemoglobin is 9.8 and she continues on Aranesp and iron. No need for transfusion at present. 6. Left foot abscess and Charcot foot pending left below the knee amputation today with vascular surgery. Continues on renally dosed antibiotics managed as per the primary team.
[2019-04-02] MEDS: PIPERACILLIN/TAZOBACTAM SOD 2.25 GM in D5W MINI-BAG PLUS 50 ML IV SCH ×2 (12:49→22:32)
[2019-04-02] MEDS: LEVEMIR (INSULIN DETEMIR) 1 UNITS/0.01ML SC SCH ×3 (12:49→20:36)
[2019-04-02] MEDS: **VANCO AFTER HD** MISC XX SCH (15:40)
[2019-04-02] MEDS ORDERED: ROCURONIUM BROMIDE 50 MG/5 ML VIAL As Ordered ONE (16:15)
[2019-04-02] MEDS ORDERED: PROPOFOL 200 MG/20 ML VIAL As Ordered ONE (16:15)
[2019-04-02] MEDS ORDERED: LIDOCAINE 2% INJ 100 MG/5 ML SDV (FOR ANES.) As Ordered ONE (16:15)
[2019-04-02] MEDS ORDERED: fentaNYL 100 MCG/2 ML INJECTION (J3010) As Ordered ONE (16:21)
[2019-04-02] MEDS ORDERED: MIDAZOLAM INJ 5 MG/ML VIAL (J2250) As Ordered ONE (16:48)
[2019-04-02] MEDS ORDERED: LIDOCAINE 1% SDV INJ 30 ML VIAL As Ordered ONE (16:53)
[2019-04-02] MEDS ORDERED: BUPIVACAINE HCL 0.5% 30 ML VIAL As Ordered ONE (16:53)
[2019-04-02] MEDS ORDERED: PHENYLephrine HCL 500 MCG/5 ML (100MCG/ML) SYRINGE (J2370) As Ordered ONE (17:05)
[2019-04-02] MEDS ORDERED: ONDANSETRON 4MG/2ML VIAL (J2405) IV PRN (17:45)
[2019-04-02] MEDS ORDERED: PERCOCET 5MG/325MG TAB PO PRN (17:45)
[2019-04-02] MEDS ORDERED: NS 1,000 ML IV SCH (17:45)
[2019-04-02] MEDS ORDERED: METOCLOPRAMIDE INJ 10MG/2ML VIAL (J2765) IV PRN (17:45)
[2019-04-02] MEDS: rOPINIRole 1MG TAB PO SCH (20:35)
[2019-04-02] MEDS: SIMVASTATIN 20 MG TAB PO SCH (20:35)
[2019-04-03] MEDS: PERCOCET 5MG/325MG TAB PO PRN ×5 (00:21→23:50)
[2019-04-03 02:00] VITALS: BP 126/62
[2019-04-03] MEDS: LEVOTHYROXINE 125MCG TABLET (0.125MG) PO SCH (05:33)
[2019-04-03 05:43] LABS: HEMATOCRIT 29.7 % (36.0-47.0); HEMOGLOBIN 8.8 g/dl (12.0-15.5); MEAN CORPUSCULAR HEMOGLOBIN 27.3 pg (27.0-33.0); MEAN CORPUSCULAR HGB CONC 29.6 g/dl (32.0-36.5); MEAN CORPUSCULAR VOLUME 92.2 fl (80.0-96.0); PLATELET COUNT, AUTOMATED 184 10^3/uL (150-450); RED BLOOD COUNT 3.22 10^6/uL (4.00-5.40); WHITE BLOOD COUNT 8.2 10^3/uL (4.0-10.0)
[2019-04-03 06:01] LABS: CREATININE FOR GFR 4.65 MG/DL (0.55-1.30); GLOMERULAR FILTRATION RATE 9.9 (>39); POTASSIUM SERUM 4.5 MEQ/L (3.5-5.1); VANCOMYCIN RANDOM 18.8 UG/ML
--- NOTE | 2019-04-03 08:23 | ECHO ---
DATE OF PROCEDURE: 04/02/2019 INDICATION: Hypotension. REFERRING PHYSICIAN: Dr. Randell Trinidad Height 162 cm Weight 88 kg. DIMENSIONS: IVS 1.2 LV 3.7 LVPW 1.2 LA 4.0 Aorta 3.3 IVC 1.0 Mitral E wave velocity 86, A-wave 108. E prime septal 4.9 E prime lateral 4.9 FINDINGS: The study is of good technical quality. The patient is in sinus rhythm. Left ventricle is of normal size and normal systolic function, estimated left ventricular ejection fraction is about 70-75%. Mild left ventricular hypertrophy is noted. There is mild sigmoid appearance to the septum but no systolic anterior motion of mitral leaflets. Right ventricle is also normal size and systolic function. Left atrium is at least mildly enlarged. Right atrium appears normal. Aortic valve is mildly sclerotic but mobility of leaflets is preserved. There are degenerative abnormalities of mitral valve with mitral annular calcifications but again leaflet mobility is intact. Tricuspid and pulmonic valves appear normal. Small noncompressive pericardial effusion mostly adjacent to the lateral size of AV groove is noted. Inferior vena cava is of small caliber and completely collapses with respiration, indicative of low central venous pressure. There appears to be fluid around the liver, most likely representing ascites. Doppler interrogation of aortic valve reveals trace insufficiency and trivial stenosis with mean gradient 9 mmHg. There is trace mitral insufficiency and mild tricuspid insufficiency. Calculated pulmonary artery pressure is within normal limits, but it is based on poor quality of TR jet and consequently should not be considered completely reliable. Pulmonic valve is functionally competent. Mitral inflow pattern and tissue Doppler imaging of mitral annulus reveal grade 1 diastolic dysfunction. CONCLUSION: 1. Study is of good technical quality. 2. Normal LV size with mild LVH and hyperdynamic LV systolic function. Grade 1 diastolic dysfunction. 3. Aortic sclerosis with trivial stenosis and insufficiency. 4. Degenerative abnormalities of mitral valve with trace mitral insufficiency. 5. Normal central venous pressure and likely normal pulmonary artery pressure. 6. Small non compressive pericardial effusion. 7. Likely ascites in the abdomen. Comment: SBE prophylaxis is not recommended. MTDD
[2019-04-03] MEDS: HumaLOG INSULIN (NovoLOG) PER UNIT SC SCH ×4 (08:49→21:00)
[2019-04-03] MEDS: CALCIUM CARBONATE 500 MG CHEW U/D PO SCH ×3 (08:49→17:45)
[2019-04-03] MEDS: GABAPENTIN 300 MG CAP PO SCH ×2 (08:49→22:26)
[2019-04-03] MEDS: PANTOPRAZOLE 40MG TAB (PROTONIX) PO SCH (08:49)
[2019-04-03] MEDS: METOPROLOL SUCC *XL* 25MG TAB (TopROL *XL*) PO SCH ×2 (08:49→22:27)
[2019-04-03] MEDS: DULoxetine 30 MG CAP (CYMBALTA) PO SCH (08:50)
[2019-04-03] MEDS: HEPARIN SOD (PORCINE) 5000 UNITS/ML VIAL SC SCH ×2 (08:50→22:25)
[2019-04-03] MEDS: EUCERIN 120GM CREAM TOP SCH ×2 (08:51→22:28)
[2019-04-03] MEDS: LEVEMIR (INSULIN DETEMIR) 1 UNITS/0.01ML SC SCH ×2 (08:51→22:27)
[2019-04-03] MEDS: CLOPIDOGREL 75 MG TAB PO SCH (09:00)
--- NOTE | 2019-04-03 09:09 | IPNPDOC ---
Date Seen The patient was seen on 04/03/19. Progress Note VASCULAR SURGERY Dr Estrella HPI: 68-year-old female admitted to [facility] 03/21/19 related to increased redness and bloody weeping from her left foot ulcer at the heel, which she has had since August [address] Baeza. There was also a new ulcer on the medial malleolus that is growing proximal to the old ulcer. Per the patient, new ulcer has evolved over the past 1-2 weeks, and was also assessed by Dr. Baeza when both wounds were debrided. Vascular surgery consulted 03/27/19 for further evaluation of left foot wound. Of note, patient does have ESRD, on HD MWF as per Nephrology. Also, due to her cirrhosis, she undergoes paracentesis every 2 weeks, S/P paracentesis 03/29/19. The patient is status post left foot debridement and amputation second and third toes as per Dr. Estrella 03/27/19. The patient is S/P LLE angiogram 03/29/[address] Estrella, no intervention. S/P guilotine amputation Left foot as per Dr Estrella 04/02/19. POD1. Plan is for BKA Tue/ this week pending improvement of LLE cellulitis. The pt is sitting up in bed eating breakfast, states pain is controlled. Denies any fevers, chills, weakness, fatigue, Headache, Chest Pain, Shortness of breath, cough, palpitations, abdominal pain, N/V/D or changes in bowel or bladder habits. 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 Left arm AV fistula. Appendectomy. Hysterectomy. Bilateral cataracts. PE: GEN: 68 yo F, appears stated age. No acute distress. Alert and oriented. HEENT: Normocephalic, atraumatic. No facial asymmetry. Moist mucous membranes. CHEST: Regular rate and rhythm, +S1, +S2 LUNGS: Clear to auscultation bilaterally. No wheezes, rales, or rhonchi. Breathing appears symmetric and easy. ABD: Round, distended, nontender. +Bowel sounds throughout. No rebound or gu arding. EXT: Right foot bandaged. S/P amputation LLE, surgical dressing intact. NEURO: Alert and oriented x 3. Cranial nerves III-XII are intact. No focal deficits appreciated. 03/21 blood culture x2. Negative 03/21 left foot WOUND CULTURE Final Organism 1 ENTEROBACTER CLOACAE COMPLEX QUANTITY OF GROWTH HEAVY Organism 2 STAPHYLOCOCCUS AUREUS QUANTITY OF GROWTH HEAVY Organism 3 STAPH.AUREUS METHICILLIN RESIS QUANTITY OF GROWTH HEAVY FULL REPORT IN LAB NOTES (eCW and Medent). 03/23 left foot wound culture Negative MRI left foot Once again there are findings are Charcot foot which appear unchanged compared to the prior study of 09/04/2018. Diffuse subchondral marrow edema is seen in the distal tibia and fibula as well as the tarsal bones, unchanged. No definite acute osteomyelitis. Diffuse edema and probable cellulitis. Large joint effusion at the tibiotalar joint. Complex fluid collection centered between the second and third metatarsals extends into the plantar soft-tissues along the flexor tendons and also extends into the dorsal soft-tissues. There may be internal foci or air and therefore this may represent an abscess. Electronically Signed by Aureliano Rivas MD 03/26/2019 04:22 P TTE 1. Study is of good technical quality. 2. Normal LV size with mild LVH and hyperdynamic LV systolic function. Grade 1 diastolic dysfunction. 3. Aortic sclerosis with trivial stenosis and insufficiency. 4. Degenerative abnormalities of mitral valve with trace mitral insufficiency. 5. Normal central venous pressure and likely normal pulmonary artery pressure. 6. Small non compressive pericardial effusion. 7. Likely ascites in the abdomen. DD: Apolonia White MD 04/03/19 0811 A&P: 68-year-old female admitted to [facility] 03/21/19 related to increased redness and bloody weeping from her left foot ulcer at the heel, which she has had since August [address] Baeza. There was also a new ulcer on the medial malleolus that is growing proximal to the old ulcer. Per the patient, new ulcer has evolved over the past 1-2 weeks, and was also assessed by Dr. Baeza when both wounds were debrided. Vascular surgery consulted 03/27/19 for further evaluation of left foot wound. Cellulitis of LLE 2/2 infected chronic wound/status post debridement and amputation second and third toes 03/27/19, S/P guilotine amputation Left foot as per Dr Estrella 04/02/19. POD1. Wet to dry dressing daily. Plan is for BKA Tue/ this week pending improvement of LLE cellulitis. Patient is afebrile. WBC 8.2 Patient remains on IV Vanco/Zosyn ESRD Hemodialysis as per nephrology. CHF. Fluid management as per nephrology. Chronic anemia. venofer as per nephrology. Aranesp as per nephrology. hgb 8.8. Monitor. Hx of Liver Cirrhosis s/p paracentesis on 03/29 CAD s/p 4 stents ASA, Plavix, Statin, BBlocker IDDM2, Charcot foot Cont insulin regimen as ordered Hx of Non-compliance Complicating medical care HTN Continue meds as ordered Hypothyroidism Continue Synthroid Anxiety/Insomnia Continue home meds GERD Continue Protonix Restless Leg Syndrome Cont ropinirole DVT ppx: heparin sc A-FIB/CHADSVASC A-FIB History Current/History of A-Fib/PAF?: No VS, I&O, 24H, Fishbone Vital Signs/I&O Vital Signs Date Time Temp Pulse Resp B/P (MAP) Pulse Ox O2 Delivery O2 Flow Rate FiO2 04/03/19 08:49 72 126/62 04/03/19 07:56 18 04/03/19 02:00 97.0 98 2.0 I&O- Last 24 Hours up to 6 AM 04/03/19 06:00 Intake Total 1275 ml Output Total 1050 ml Balance 225 ml Laboratory Data 24H LABS Laboratory Tests 2 04/02/19 12:41: Bedside Glucose (Misc Panel) 163H 04/02/19 17:27: Bedside Glucose (Misc Panel) 149H 04/02/19 20:19: Bedside Glucose (Misc Panel) 182H 04/03/19 04:55: Nucleated Red Blood Cells % (auto) 0.0, Anion Gap 6L, Glomerular Filtration Rate 9.9L, Blood Urea Nitrogen 53H, Creatinine 4.65H, Sodium Level 137, Potassium Level 4.5, Chloride Level 102, Carbon Dioxide Level 29, Calcium Level 7.0L, Random Vancomycin Level 18.8 04/03/19 08:01: Bedside Glucose (Misc Panel) 209H CBC/BMP Laboratory Tests 04/03/19 04:55 Red Blood Count 3.22 L, Mean Corpuscular Volume 92.2, Mean Corpuscular H emoglobin 27.3, Mean Corpuscular Hemoglobin Concent 29.6 L, Red Cell Distribution Width 20.7 H, Calcium Level 7.0 L Microbiology Microbiology 03/27/19 Gram Stain - Final, Complete 03/27/19 Wound Culture - Final, Complete Enterobacter Cloacae Complex Staph.aureus Methicillin Resis Strep Dysgalactiae Ssp Equisim Trini Vieira April 03, 2019 09:09
[2019-04-03 10:00] VITALS: BP 131/69
--- NOTE | 2019-04-03 11:53 | IPNPDOC ---
Subjective Date Seen The patient was seen on 04/03/19. Subjective Chief Complaint/HPI Patient offers no new complaint at the present time sitting in bed, apparently controlled General: Denies: ROS Unobtainable, Chills, Night Sweats, Fatigue, Malaise, Normal Appetite, Other Symptoms Constitutional: Denies: Chills, Fever, Malaise, Night Sweats, Weakness, Fatigue, Weight Loss, Lethargy, Other Eyes: Denies: Pain, Vision change, Conjunctivae inflammation, Eyelid infl ammation, Redness, Other ENT: Denies: Head Aches, Ear Pain, Dysphagia, Sinus Congestion, Post Nasal Drip, Sore Throat, Epistaxis, Other Symptoms Skin: Denies: Rash, Lesions, Jaundice, Bruising, Itching, Dry, Breakdown, Nail Changes, Other Pulmonary: Denies: Dyspnea, Cough, Pleuritic Chest Pain, Other Symptoms Cardiovascular: Denies: Chest Pain, Palpitations, Orthopnea, Paroxysmal Noc. Dyspnea, Edema, Lt Headedness, Other Symptoms Gastrointestinal: Denies: Nausea, Vomiting, Abdominal Pain, Diarrhea, Constipation, Melena, Hematochezia, Other Symptoms Genitourinary: Denies: Dysuria, Frequency, Incontinence, Hematuria, Retention, Other Symptoms Hematologic: Denies: Bruising, Bleeding Excessively, Petecchia, Purpura, Enlarged Lymph Nodes, Other Hematologic Endocrine: Denies: Polydipsia, Polyphagia, Polyuria, Heat Intolerance, Cold Intolerance, Other Endocrine Sx Musculoskeletal: Denies: Neck Pain, Back Pain, Shoulder Pain, Arm Pain, Hand Pain, Leg Pain, Foot Pain, Joint Pain, Muscle Pain, Spasms, Other Symptoms Neurological: Denies: Weakness, Numbness, Incoordination, Change in speech, Confusion, Seizures, Other Symptoms Psych: Denies: Mood Normal, Anxiety, Depression, Memory Issues, Thoughts of Self Harm, Anger, Thoughts of Harming Other, Other Psych Objective Physical Examination General Exam: Positive: Alert, Cooperative, No Acute Distress ENT Exam: Positive: Atraumatic, Mucous membr. moist/pink Chest Exam: Positive: Diminished Heart Exam: Positive: Rate Normal, Normal S1, Normal S2 Abdomen Exam: Positive: Soft, Other (distended, positive fluid wave); Negative: Tenderness Extremity Exam: Positive: Other (status post left lower extremity BKA dressing in place); Negative: Tenderness Skin Exam: Positive: Other skin issue (left foot noted to be wrapped in surgical dressing.) Psych Exam: Positive: Oriented x 3 A-FIB/CHADSVASC A-FIB History Current/History of A-Fib/PAF?: No Assessment /Plan Problems (1) Cellulitis of foot Status: Acute Problem Text: 68-year-old female admitted to [facility] 03/21/19 related to increased redness and bloody weeping from her left foot ulcer at the heel, which she has had since August [address] Baeza. There was also a new ulcer on the medial malleolus that is growing proximal to the old ulcer. Per the patient, new ulcer has evolved over the past 1-2 weeks, and was also assessed by Dr. Beaza when both wounds were debrided. Vascular surgery consulted 03/27/19 for further evaluation of left foot wound. The patient is status post left foot debridement and amputation second and third toes as per Dr. Estrella 03/27/19. The patient is S/P LLE angiogram 03/29/[address] Estrella, no intervention. S/P guilotine amputation Left foot as per Dr Estrella 04/02/19. POD1. Plan is for BKA Tue/ this week pending LLE cellulitis. The pt is sitting up in bed eating breakfast, states pain is controlled. Plan/VTE VTE Prophylaxis Ordered?: Yes VS, I&O, 24H, Fishbone Vital Signs/I&O Vital Signs Date Time Temp Pulse Resp B/P (MAP) Pulse Ox O2 Delivery O2 Flow Rate FiO2 04/03/19 08:49 72 126/62 04/03/19 07:56 18 04/03/19 02:00 97.0 98 2.0 I&O- Last 24 Hours up to 6 AM 04/03/19 06:00 Intake Total 1275 ml Output Total 1050 ml Balance 225 ml Laboratory Data 24H LABS Laboratory Tests 2 04/02/19 12:41: Bedside Glucose (Misc Panel) 163H 04/02/19 17:27: Bedside Glucose (Misc Panel) 149H 04/02/19 20:19: Bedside Glucose (Misc Panel) 182H 04/03/19 04:55: Nucleated Red Blood Cells % (auto) 0.0, Anion Gap 6L, Glomerular Filtration Rate 9.9L, Blood Urea Nitrogen 53H, Creatinine 4.65H, Sodium Level 137, Potassium Level 4.5, Chloride Level 102, Carbon Dioxide Level 29, Calcium Level 7.0L, Random Vancomycin Level 18.8 04/03/19 08:01: Bedside Glucose (Misc Panel) 209H CBC/BMP Laboratory Tests 04/03/19 04:55 Red Blood Count 3.22 L, Mean Corpuscular Volume 92.2, Mean Corpuscular Hemoglobin 27.3, Mean Corpuscular Hemoglobin Concent 29.6 L, Red Cell Distribution Width 20.7 H, Calcium Level 7.0 L Microbiology Microbiology 03/27/19 Gram Stain - Final, Complete 03/27/19 Wound Culture - Final, Complete Enterobacter Cloacae Complex Staph.aureus Methicillin Resis Strep Dysgalactiae Ssp Equisim SHAGGY MASON MD April 03, 2019 11:53
[2019-04-03] MEDS: PIPERACILLIN/TAZOBACTAM SOD 2.25 GM in D5W MINI-BAG PLUS 50 ML IV SCH ×2 (12:13→22:38)
[2019-04-03 14:00] VITALS: BP 137/65
[2019-04-03] MEDS: **VANCO AFTER HD** MISC XX SCH (16:00)
[2019-04-03] MEDS ORDERED: MORPHINE 4 MG/ML 1ML VIAL/SYRINGE (J2270) IV ONE ×2 (18:30→19:00)
[2019-04-03 22:00] VITALS: BP 135/61
[2019-04-03] MEDS: rOPINIRole 1MG TAB PO SCH (22:26)
[2019-04-03] MEDS: SIMVASTATIN 20 MG TAB PO SCH (22:26)
[2019-04-03] MEDS: traZODone 50 MG TAB PO PRN (23:50)
[2019-04-04] VITALS (8 sets, daily range): BP systolic 90–133; BP diastolic 40–66
[2019-04-04] MEDS: GABAPENTIN 300 MG CAP PO SCH ×2 (06:28→21:45)
[2019-04-04] MEDS: CALCIUM CARBONATE 500 MG CHEW U/D PO SCH ×3 (06:28→17:52)
[2019-04-04] MEDS: LEVOTHYROXINE 125MCG TABLET (0.125MG) PO SCH (06:28)
[2019-04-04] MEDS: DULoxetine 30 MG CAP (CYMBALTA) PO SCH (06:29)
[2019-04-04] MEDS: METOPROLOL SUCC *XL* 25MG TAB (TopROL *XL*) PO SCH ×2 (06:29→21:00)
[2019-04-04] MEDS: CLOPIDOGREL 75 MG TAB PO SCH (06:29)
[2019-04-04] MEDS: PANTOPRAZOLE 40MG TAB (PROTONIX) PO SCH (06:29)
[2019-04-04] MEDS: HEPARIN SOD (PORCINE) 5000 UNITS/ML VIAL SC SCH ×2 (06:30→21:45)
[2019-04-04] MEDS: EUCERIN 120GM CREAM TOP SCH ×2 (06:30→21:00)
[2019-04-04 06:43] LABS: HEMATOCRIT 27.5 % (36.0-47.0); HEMOGLOBIN 8.1 g/dl (12.0-15.5); MEAN CORPUSCULAR HEMOGLOBIN 27.9 pg (27.0-33.0); MEAN CORPUSCULAR HGB CONC 29.5 g/dl (32.0-36.5); MEAN CORPUSCULAR VOLUME 94.8 fl (80.0-96.0); PLATELET COUNT, AUTOMATED 184 10^3/uL (150-450); WHITE BLOOD COUNT 8.5 10^3/uL (4.0-10.0)
[2019-04-04 07:04] LABS: CREATININE FOR GFR 5.73 MG/DL (0.55-1.30); GLOMERULAR FILTRATION RATE 7.8 (>39); POTASSIUM SERUM 4.2 MEQ/L (3.5-5.1)
[2019-04-04] MEDS: HumaLOG INSULIN (NovoLOG) PER UNIT SC SCH ×4 (08:13→21:46)
[2019-04-04] MEDS: LEVEMIR (INSULIN DETEMIR) 1 UNITS/0.01ML SC SCH ×2 (08:13→21:47)
[2019-04-04] MEDS: ACETAMINOPHEN TAB 650MG DOSE (2X325MG) PO PRN (08:17)
--- NOTE | 2019-04-04 08:37 | IPNPDOC ---
Text Note Date of Service The patient was seen on 04/03/19. NOTE Nephrology Service: Subjective: Patient seen and examined at bedside. Is status-post guilotine amputation of L foot post-operative day #[address] Estrella on 04/02/19. Is afebrile and hemodynamically stable today with improved blood pressures. Echocardiogram done yesterday for concern for persistent hypotension and concern for pericardial effusion showed Grade 1 Diastolic Dysfunction and small noncompressive pericardial effusion, otherwise unremarkable. Admits to uncontrolled pain. Denies fevers, chills, chest pain, SOB, nausea, vomiting, abdominal pain. Was last dialyzed yesterday with 1000 mL out. Objective: Vitals: T: 97.0 BP: 126/62 RR: 20 P: 72 O2 Saturation: 98% on 2L NC Weight: 88.7 kg yesterday and 87.6 kg today. Intake: 915 ml Output: 1450 mL Balance: (-) 535 ml UO: 0.19 mL/kg/hr Urine Total: 400 mL BMs: 2 General: AAO x 3. Lying in bed. Seems a bit uncomfortable and in some moderate amount of pain post-surgically. Obese female, appears fatigued, drowsy, and speaks softly. However, easily arousable. NAD. Pleasant and cooperative. HEENT: Head: normocephalic, atraumatic. Neck: Supple. Mild JVD. Respiratory: Clear to auscultation bilaterally with no wheezes, rales, or rhonchi. Cardiovascular: (+)S1S2, regular rate and rhythm, with no murmurs, rubs or gallops. Abdomen: Soft, distended, ascites present, nontender. Extremities: Dressing on L leg which appears clean, dry, intact without any stains of drainage. L foot not present due to amputation by vascular surgery yesterday. (+)1 pitting edema of bilateral lower extremities. Vascular: LUE fistula is present. Musculoskeletal: Chronic venous stasis changes bilaterally. Neurological: Easily arousable though drowsy initially. Answering questions appropriately. Laboratory data: CBC: WBC 8.2, Hgb 8.8 (L), Platelets 184. BMP: Na 137, K 4.5, BUN 53 (H), Cr 4.65 (H), CO2 29, GFR 9.9 (L), glucose 203 (H). Random Vancomycin Level: 18.8 POC Glucose: 209 (H) Current Inpatient Medications: Vancomycin 750 mg IV HD Zosyn 2.25 mg/dextrose IV HD Detemir 10 units SC Daily Detemir 10 units QHS Humalog at AC and QHS Venofer (Iron) 100 mg IV HD Ropinirole 1 mg PO QHS Aranesp (Darbepoetin Yordan) 100 mcg HD IV Metoprolol succinate 25 mg PO BID Veltassa (Patiromer) 8.4 gm as directed PRN PO missing dialysis No other change in the medications today as compared with yesterday. Assessment/Plan: 1. End-stage renal disease on hemodialysis on Tuesday, Tuesday, Tuesday schedule: BPs improved this AM. Systolic in the 120s-130s. Last dialysis was 04/02/19 and 1000 mL fluid was removed. Her electrolytes are acceptable and her fistula is in good use. On veltassa for hyperkalemia PRN. Continue to monitor Intake and Output as well as BMP/electrolytes. 2. Hypertension: Patient no longer hypotensive. BPs have improved status-post L foot amputation. Echocardiogram showed mild pericardial effusion, but was otherwise unremarkable. Metoprolol given twice on 04/03/19. Will continue to mo nitor and see how BPs are tomorrow. 3. Recurrent ascites status post paracentesis x2 on this admission: Paracentesis only performed 1-2 times per month in outpatient setting. Plavix does need to be held for several days prior to each tap and she does have a history of coronary artery disease. 4. Diastolic congestive heart failure with exacerbation: According to most recent echocardiogram, patient has grade 1 diastolic dysfunction. Has hx of chronic fluid overload secondary to noncompliance in the outpatient office. Patient also noncompliant with her fluid restrictions. Patient also has hx of recurrent ascites. Have to be cautious with removal of fluid during dialysis secondary to patient's hx of recent soft blood pressures. 5. Anemia secondary to end-stage renal disease, iron deficiency and chronic inflammation: Hemoglobin is 8.8 (L). Continue Aranesp and Venofer 100 mg HD IV. No need for transfusion at present. Continue to monitor CBC. 6. Left foot abscess and Charcot foot status-post guilotine amputation of L foot post-operative day #[address] Estrella on 04/02/19 vascular surgery. Continues on renally dosed antibiotics managed as per the primary team. My preceptor for this patient encounter was Dr. Mic Grullon, and was physically present in the building during the encounter and was fully available. As needed, all aspects of the patient interview, examination, medical decision making process, and medical care plan development were reviewed and approved by the preceptor. Preceptor is aware and concurs with the plan as stated in the body of this note and will attest to such by his/her cosignature. A-FIB/CHADSVASC A-FIB History Current/History of A-Fib/PAF?: No Current Oral Anticoagulant The: No VS,Fishbone, I+O VS, Fishbone, I+O Laboratory Tests 04/03/19 04:55 Red Blood Count 3.22 L, Mean Corpuscular Volume 92.2, Mean Corpuscular Hemo globin 27.3, Mean Corpuscular Hemoglobin Concent 29.6 L, Red Cell Distribution Width 20.7 H, Calcium Level 7.0 L Vital Signs Date Time Temp Pulse Resp B/P (MAP) Pulse Ox O2 Delivery O2 Flow Rate FiO2 04/03/19 08:49 72 126/62 04/03/19 07:56 18 04/03/19 02:00 97.0 98 2.0 I&O- Last 24 Hours up to 6 AM 04/03/19 06:00 Intake Total 1275 ml Output Total 1050 ml Balance 225 ml JENISE LUCERO DO April 03, 2019 12:41
--- NOTE | 2019-04-04 08:39 | IPNPDOC ---
Date Seen The patient was seen on 04/04/19. Progress Note VASCULAR SURGERY Dr Estrella HPI: 68-year-old female admitted to [facility] 03/21/19 related to increased redness and bloody weeping from her left foot ulcer at the heel, which she has had since August [address] Baeza. There was also a new ulcer on the medial malleolus that is growing proximal to the old ulcer. Per the patient, new ulcer has evolved over the past 1-2 weeks, and was also assessed by Dr. Baeza when both wounds were debrided. Vascular surgery consulted 03/27/19 for further evaluation of left foot wound. Of note, patient does have ESRD, on HD MWF as per Nephrology. Also, due to her cirrhosis, she undergoes paracentesis every 2 weeks, S/P paracentesis 03/29/19. Scheduled 04/05/19. The patient is status post left foot debridement and amputation second and third toes as per Dr. Estrella 03/27/19. The patient is S/P LLE angiogram 03/29/[address] Estrella, no intervention. S/P guilotine amputation Left foot as per Dr Estrella 04/02/19. POD2. The pt is sitting up in bed eating breakfast, states pain was worse with dressing change yesterday afternoon. Denies any fevers, chills, weakness, fatigue, Headache, Chest Pain, Shortness of breath, cough, palpitations, abdominal pain, N/V/D or changes in bowel or bladder habits. 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 Left arm AV fistula. Appendectomy. Hysterectomy. Bilateral cataracts. PE: GEN: 68 yo F, appears stated age. No acute distress. Alert and oriented. HEENT: Normocephalic, atraumatic. No facial asymmetry. Moist mucous membranes. CHEST: Regular rate and rhythm, +S1, +S2 LUNGS: Clear to auscultation bilaterally. No wheezes, rales, or rhonchi. Breathing appears symmetric and easy. ABD: Round, distended, nontender. +Bowel sounds throughout. No rebound or guarding. EXT: Tr edema RLE. Right foot bandaged. S/P amputation LLE, dressing intact. NEURO: Alert and oriented x 3. Cranial nerves III-XII are intact. No focal deficits appreciated. 03/21 blood culture x2. Negative 03/21 left foot WOUND CULTURE Final Organism 1 ENTEROBACTER CLOACAE COMPLEX QUANTITY OF GROWTH HEAVY Organism 2 STAPHYLOCOCCUS AUREUS QUANTITY OF GROWTH HEAVY Organism 3 STAPH.AUREUS METHICILLIN RESIS QUANTITY OF GROWTH HEAVY FULL REPORT IN LAB NOTES (eCW and Medent). 03/23 left foot wound culture Negative MRI left foot Once again there are findings are Charcot foot which appear unchanged compared to the prior study of 09/04/2018. Diffuse subchondral marrow edema is seen in the distal tibia and fibula as well as the tarsal bones, unchanged. No definite acute osteomyelitis. Diffuse edema and probable cellulitis. Large joint effusion at the tibiotalar joint. Complex fluid collection centered between the second and third metatarsals extends into the plantar soft-tissues along the flexor tendons and also extends into the dorsal soft-tissues. There may be internal foci or air and therefore this may represent an abscess. Electronically Signed by Aureliano Rivas MD 03/26/2019 04:22 P TTE 1. Study is of good technical quality. 2. Normal LV size with mild LVH and hyperdynamic LV systolic function. Grade 1 diastolic dysfunction. 3. Aortic sclerosis with trivial stenosis and insufficiency. 4. Degenerative abnormalities of mitral valve with trace mitral insufficiency. 5. Normal central venous pressure and likely normal pulmonary artery pressure. 6. Small non compressive pericardial effusion. 7. Likely ascites in the abdomen. DD: Apolonia White MD 04/03/19 0811 A&P: 68-year-old female admitted to [facility] 03/21/19 related to increased redness and bloody weeping from her left foot ulcer at the heel, which she has had since August [address] Baeza. There was also a new ulcer on the medial malleolus that is growing proximal to the old ulcer. Per the patient, new ulcer has evolved over the past 1-2 weeks, and was also assessed by Dr. Baeza when both wounds were debrided. Vascular surgery consulted 03/27/19 for further evaluation of left foot wound. Cellulitis of LLE 2/2 infected chronic wound/status post debridement and amputation second and third toes 03/27/19, S/P guilotine amputation Left foot as per Dr Estrella 04/02/19. POD2. Continue Wet to dry dressing daily. Tentative Plan is for BKA Tuesday04/06/19, after paracentesis 04/05 and HD 04/06. Patient is afebrile. SBP 100s. WBC 8.5 Patient remains on IV Vanco/Zosyn ESRD Hemodialysis as per nephrology. CHF. Fluid management as per nephrology. Chronic anemia. venofer as per nephrology. Aranesp as per nephrology. hgb 8.1 Monitor need for transfusion. Hx of Liver Cirrhosis s/p paracentesis on 03/29. Pt is on schedule for paracentesis 04/05/19. CAD s/p 4 stents ASA, Plavix, Statin, BBlocker. IDDM2, Charcot foot Cont insulin regimen as ordered Hx of Non-compliance Complicating medical care HTN Continue meds as ordered Hypothyroidism Continue Synthroid Anxiety/Insomnia Continue home meds GERD Continue Protonix Restless Leg Syndrome Cont ropinirole DVT ppx: heparin sc A-FIB/CHADSVASC A-FIB History Current/History of A-Fib/PAF?: No VS, I&O, 24H, Fishbone Vital Signs/I&O Vital Signs Date Time Temp Pulse Resp B/P (MAP) Pulse Ox O2 Delivery O2 Flow Rate FiO2 04/04/19 08:22 100/50 (67) 04/04/19 06:29 73 04/04/19 06:00 96.1 18 97 2.0 I&O- Last 24 Hours up to 6 AM 04/04/19 06:00 Intake Total 1000 ml Output Total 0 ml Balance 1000 ml Laboratory Data 24H LABS Laboratory Tests 2 04/03/19 12:04: Bedside Glucose (Misc Panel) 204H 04/03/19 17:21: Bedside Glucose (Misc Panel) 254H 04/03/19 21:17: Bedside Glucose (Misc Panel) 208H 04/04/19 06:20: Nucleated Red Blood Cells % (auto) 0.0, Anion Gap 10, Glomerular Filtration Rate 7.8L, Blood Urea Nitrogen 66H, Creatinine 5.73H, Sodium Level 136, Potassium Level 4.2, Chloride Level 101, Carbon Dioxide Level 25, Calcium Level 7.0L CBC/BMP Laboratory Tests 04/04/19 06:20 Red Blood Count 2.90 L, Mean Corpuscular Volume 94.8, Mean Corpuscular Hemoglobin 27.9, Mean Corpuscular Hemoglobin Concent 29.5 L, Red Cell Distribution Width 20.8 H, Calcium Level 7.0 L Microbiology Microbiology 03/27/19 Gram Stain - Final, Complete 03/27/19 Wound Culture - Final, Complete Enterobacter Cloacae Complex Staph.aureus Methicillin Resis Strep Dysgalactiae Ssp Equisim Trini Vieira April 04, 2019 08:35
[2019-04-04] MEDS: PIPERACILLIN/TAZOBACTAM SOD 2.25 GM in D5W MINI-BAG PLUS 50 ML IV SCH ×2 (11:00→23:25)
[2019-04-04] MEDS ORDERED: LIDOCAINE 1% SDV 5 ML VIAL SQ ONE (11:30)
--- NOTE | 2019-04-04 11:49 | IPNPDOC ---
Subjective Date Seen The patient was seen on 04/04/19. Subjective Chief Complaint/HPI Scheduled for dialysis today and then tomorrow as scheduled for BKA General: Denies: ROS Unobtainable, Chills, Night Sweats, Fatigue, Malaise, Normal Appetite, Other Symptoms Constitutional: Denies: Chills, Fever, Malaise, Night Sweats, Weakness, Fatigue, Weight Loss, Lethargy, Other Eyes: Denies: Pain, Vision change, Conjunctivae inflammation, Eyelid inflammation, Redness, Other ENT: Denies: Head Aches, Ear Pain, Dysphagia, Sinus Congestion, Post Nasal Drip, Sore Throat, Epistaxis, Other Symptoms Skin: Denies: Rash, Lesions, Jaundice, Bruising, Itching, Dry, Breakdown, Nail Changes, Other Pulmonary: Denies: Dyspnea, Cough, Pleuritic Chest Pain, Other Symptoms Cardiovascular: Denies: Chest Pain, Palpitations, Orthopnea, Paroxysmal Noc. Dyspnea, Edema, Lt Headedness, Other Symptoms Gastrointestinal: Denies: Nausea, Vomiting, Abdominal Pain, Diarrhea, Constipa tion, Melena, Hematochezia, Other Symptoms Genitourinary: Denies: Dysuria, Frequency, Incontinence, Hematuria, Retention, Other Symptoms Hematologic: Denies: Bruising, Bleeding Excessively, Petecchia, Purpura, Enlarged Lymph Nodes, Other Hematologic Endocrine: Denies: Polydipsia, Polyphagia, Polyuria, Heat Intolerance, Cold Intolerance, Other Endocrine Sx Musculoskeletal: Denies: Neck Pain, Back Pain, Shoulder Pain, Arm Pain, Hand Pain, Leg Pain, Foot Pain, Joint Pain, Muscle Pain, Spasms, Other Symptoms Neurological: Denies: Weakness, Numbness, Incoordination, Change in speech, Confusion, Seizures, Other Symptoms Psych: Denies: Mood Normal, Anxiety, Depression, Memory Issues, Thoughts of Self Harm, Anger, Thoughts of Harming Other, Other Psych Objective Physical Examination General Exam: Positive: Alert, Cooperative, No Acute Distress ENT Exam: Positive: Atraumatic, Mucous membr. moist/pink Chest Exam: Positive: Diminished Heart Exam: Positive: Rate Normal, Normal S1, Normal S2 Abdomen Exam: Positive: Soft, Other (distended, positive fluid wave); Negative: Tenderness Extremity Exam: Positive: Other (status post left lower extremity BKA dressing in place); Negative: Tenderness Skin Exam: Positive: Other skin issue (left foot noted to be wrapped in surgical dressing.) Psych Exam: Positive: Oriented x 3 A-FIB/CHADSVASC A-FIB History Current/History of A-Fib/PAF?: No Assessment /Plan Problems (1) Cellulitis of foot Status: Acute Problem Text: 68-year-old female admitted to [facility] 03/21/19 related to increased redness and bloody weeping from her left foot ulcer at the heel, which she has had since August [address] Baeza. There was also a new ulcer on the medial malleolus that is growing proximal to the old ulcer. Per the patient, new ulcer has evolved over the past 1-2 weeks, and was also assessed by Dr. Baeza when both wounds were debrided. Vascular surgery consulted 03/27/19 for further evaluation of left foot wound. The patient is status post left foot debridement and amputation second and third toes as per Dr. Estrella 03/27/19. The patient is S/P LLE angiogram 03/29/[address] Estrella, no intervention. S/P guilotine amputation Left foot as per Dr Estrella 04/02/19. POD1. Plan is for BKA Tue/ this week pending LLE cellulitis. The pt is sitting up in bed eating breakfast, states pain is controlled. Patient is scheduled for BKA, hopefully tomorrow HTN progress today Plan/VTE VTE Prophylaxis Ordered?: Yes VS, I&O, 24H, Fishbone Vital Signs/I&O Vital Signs Date Time Temp Pulse Resp B/P (MAP) Pulse Ox O2 Delivery O2 Flow Rate FiO2 04/04/19 09:00 2.0 04/04/19 08:22 100/50 (67) 04/04/19 06:29 73 04/04/19 06:00 96.1 18 97 I&O- Last 24 Hours up to 6 AM 04/04/19 06:00 Intake Total 1000 ml Output Total 0 ml Balance 1000 ml Laboratory Data 24H LABS Laboratory Tests 2 04/03/19 12:04: Bedside Glucose (Misc Panel) 204H 04/03/19 17:21: Bedside Glucose (Misc Panel) 254H 04/03/19 21:17: Bedside Glucose (Misc Panel) 208H 04/04/19 06:20: Nucleated Red Blood Cells % (auto) 0.0, Anion Gap 10, Glomerular Filtration Rate 7.8L, Blood Urea Nitrogen 66H, Creatinine 5.73H, Sodium Level 136, Potassium Level 4.2, Chloride Level 101, Carbon Dioxide Level 25, Calcium Level 7.0L CBC/BMP Laboratory Tests 04/04/19 06:20 Red Blood Count 2.90 L, Mean Corpuscular Volume 94.8, Mean Corpuscular Hemoglobin 27.9, Mean Corpuscular Hemoglobin Concent 29.5 L, Red Cell Distribution Width 20.8 H, Calcium Level 7.0 L Microbiology Microbiology 03/27/19 Gram Stain - Final, Complete 03/27/19 Wound Culture - Final, Complete Enterobacter Cloacae Complex Staph.aureus Methicillin Resis Strep Dysgalactiae Ssp Equisim SHAGGY MASON MD April 04, 2019 11:49
[2019-04-04] MEDS: VANCOMYCIN HCL 750 MG, VIAL MATE ADAPTER 1 EACH in D5W 250 ML IV SCH (16:17)
[2019-04-04] MEDS: PERCOCET 5MG/325MG TAB PO PRN ×2 (16:18→23:29)
[2019-04-04] MEDS: **VANCO AFTER HD** MISC XX SCH (16:22)
--- NOTE | 2019-04-04 17:17 | IPNPDOC ---
Text Note Date of Service The patient was seen on 04/04/19. NOTE Nephrology Service: Subjective: Patient seen and examined at bedside in dialysis today. Is status-post guilotine amputation of L foot post-operative day #[address] Estrella on 04/02/19. Is afebrile and hemodynamically stable today. However, blood pressures are running soft again today. Postoperative pain better controlled today and is 5/10. Denies fevers, chills, chest pain, SOB, nausea, vomiting, abdominal pain, diarrhea, constipation. Was last dialyzed on 04/02/19 with 1000 mL out. Objective: Vitals: T: 96.1 BP: 100/54 RR: 18 P: 64 O2 Saturation: 97% on 2L NC Weight: 87.6 kg yesterday and 84.9 kg today. Intake: 1420 ml Output: 0 mL Balance: (+) 1420 ml Urine Total: 0 mL BMs: 2 General: AAO x 3. Lying comfortably in bed in dialysis unit in NAD. Obese female. Speaks very softly. Pleasant and cooperative. Fatigued appearing. HEENT: Head: normocephalic, atraumatic. Neck: Supple. Mild JVD. Respiratory: Clear to auscultation bilaterally with no wheezes, rales, or rhonchi. Cardiovascular: (+)S1S2, regular rate and rhythm, with no murmurs, rubs or gallops. Abdomen: Soft, distended, ascites present, nontender. Normoactive bowel sounds. Extremities: Dressing on L leg status-post L foot amputation. L leg dressing appears clean, dry, intact without any stains of drainage. (+)1 pitting edema of bilateral lower extremities. Vascular: LUE fistula is present. Musculoskeletal: Chronic venous stasis changes bilaterally. Neurological: Answering questions appropriately. Mentating appropriately. Laboratory data: CBC: WBC 8.5, Hgb 8.1 (L), Platelets 184. BMP: Na 136, K 4.2, BUN 66 (H), Cr 5.73 (H), CO2 25, GFR 7.8 (L), glucose 228 (H). POC Glucose: 232 (H) Current Inpatient Medications: Vancomycin 750 mg IV HD Zosyn 2.25 mg/dextrose IV HD Detemir 10 units SC Daily Detemir 10 units QHS Humalog at and QHS Venofer (Iron) 100 mg IV HD Ropinirole 1 mg PO QHS Aranesp (Darbepoetin Yordan) 100 mcg HD IV Metoprolol succinate 25 mg PO BID Veltassa (Patiromer) 8.4 gm as directed PRN PO missing dialysis No other change in the medications today as compared with yesterday. Assessment/Plan: 1. End-stage renal disease on hemodialysis on Tuesday, Tuesday, Tuesday schedule: Patient received dialysis today. However, due to soft BPs, unable to take off any fluid today. Systolic in the 90s-low 100s systolic. Her electrolytes are acceptable and her fistula is in good use. On veltassa for hyperkalemia PRN. Continue to monitor Intake and Output as well as BMP/electrolytes. 2. Hypertension: BPs a bit soft today. Metoprolol dose held at 6:29 AM as per hold parameters. Will continue to monitor. 3. Recurrent ascites status post paracentesis x2 on this admission: Paracentesis only performed 1-2 times per month in outpatient setting. Plavix does need to be held for several days prior to each tap and she does have a history of coronary artery disease. If patient gets paracentesis tomorrow, she absolutely needs to have albumin transfusion. I have communicated this to the primary team. 4. Diastolic congestive heart failure with exacerbation: According to most recent echocardiogram, patient has grade 1 diastolic dysfunction. Has hx of chronic fluid overload secondary to noncompliance in the outpatient office. P atient also noncompliant with her fluid restrictions. Patient also has hx of recurrent ascites. Have to be cautious with removal of fluid during dialysis secondary to patient's hx of recent soft blood pressures. 5. Anemia secondary to end-stage renal disease, iron deficiency and chronic inflammation: Hemoglobin is 8.1 (L). Continue Aranesp and Venofer 100 mg HD IV. Will transfuse 1 unit PRBCs today. Continue to monitor CBC. 6. Left foot abscess and Charcot foot status-post guilotine amputation of L foot post-operative day #[address] Estrella on 04/02/19 vascular surgery. Spoke to Trini FISHER on Vascular Surgery who reports patient is scheduled for L BKA on 04/06/19. Continues on renally dosed antibiotics managed as per the primary team. My preceptor for this patient encounter was Dr. Mic Grullon, and was physically present in the building during the encounter and was fully available. As needed, all aspects of the patient interview, examination, medical decision making process, and medical care plan development were reviewed and approved by the preceptor. Preceptor is aware and concurs with the plan as stated in the body of this note and will attest to such by his/her cosignature. A-FIB/CHADSVASC A-FIB History Current/History of A-Fib/PAF?: No Current Oral Anticoagulant The: No VS,Fishbone, I+O VS, Fishbone, I+O Laboratory Tests 04/04/19 06:20 Red Blood Count 2.90 L, Mean Corpuscular Volume 94.8, Mean Corpuscular Hemoglobin 27.9, Mean Corpuscular Hemoglobin Concent 29.5 L, Red Cell Distribution Width 20.8 H, Calcium Level 7.0 L Vital Signs Date Time Temp Pulse Resp B/P (MAP) Pulse Ox O2 Delivery O2 Flow Rate FiO2 04/04/19 09:00 2.0 04/04/19 08:22 100/50 (67) 04/04/19 06:29 73 04/04/19 06:00 96.1 18 97 I&O- Last 24 Hours up to 6 AM 04/04/19 06:00 Intake Total 1000 ml Output Total 0 ml Balance 1000 ml JENISE LUCERO DO April 04, 2019 13:35
[2019-04-04] MEDS: traZODone 50 MG TAB PO PRN (21:45)
[2019-04-04] MEDS: SIMVASTATIN 20 MG TAB PO SCH (21:45)
[2019-04-04] MEDS: rOPINIRole 1MG TAB PO SCH (21:45)
[2019-04-05] VITALS (7 sets, daily range): BP systolic 120–137; BP diastolic 59–82
[2019-04-05] MEDS: LEVOTHYROXINE 125MCG TABLET (0.125MG) PO SCH (06:14)
[2019-04-05] MEDS: PERCOCET 5MG/325MG TAB PO PRN ×3 (06:15→18:33)
[2019-04-05] MEDS: DULoxetine 30 MG CAP (CYMBALTA) PO SCH (08:03)
[2019-04-05] MEDS: PANTOPRAZOLE 40MG TAB (PROTONIX) PO SCH (08:03)
[2019-04-05] MEDS: CALCIUM CARBONATE 500 MG CHEW U/D PO SCH ×3 (08:03→18:16)
[2019-04-05] MEDS: CLOPIDOGREL 75 MG TAB PO SCH (08:04)
[2019-04-05] MEDS: METOPROLOL SUCC *XL* 25MG TAB (TopROL *XL*) PO SCH ×2 (08:04→21:58)
[2019-04-05] MEDS: GABAPENTIN 300 MG CAP PO SCH ×2 (08:04→21:58)
[2019-04-05] MEDS: HumaLOG INSULIN (NovoLOG) PER UNIT SC SCH ×4 (08:05→21:59)
[2019-04-05] MEDS: LEVEMIR (INSULIN DETEMIR) 1 UNITS/0.01ML SC SCH ×2 (08:06→21:59)
[2019-04-05] MEDS: EUCERIN 120GM CREAM TOP SCH ×2 (08:06→22:00)
[2019-04-05 08:14] LABS: BASO # 0.1 10^3/uL (0.0-0.2); BASO % 0.8 % (0.0-1.0); EOS # 0.3 10^3/uL (0.0-0.50); EOS % 3.4 % (0.0-3.0); HEMATOCRIT 29.6 % (36.0-47.0); HEMOGLOBIN 8.8 g/dl (12.0-15.5); LYMPH # 1.3 10^3/uL (1.5-4.5); LYMPH % 15.4 % (24.0-44.0); MEAN CORPUSCULAR HEMOGLOBIN 27.8 pg (27.0-33.0); MEAN CORPUSCULAR HGB CONC 29.7 g/dl (32.0-36.5); MEAN CORPUSCULAR VOLUME 93.4 fl (80.0-96.0); MONO # 1.2 10^3/uL (0.0-0.8); MONO % 13.5 % (0.0-5.0); NEUTROPHILS # 5.6 10^3/uL (1.8-7.7); PLATELET COUNT, AUTOMATED 187 10^3/uL (150-450); RED BLOOD COUNT 3.17 10^6/uL (4.00-5.40); WHITE BLOOD COUNT 8.7 10^3/uL (4.0-10.0)
[2019-04-05 08:35] LABS: CALCIUM LEVEL 7.2 MG/DL (8.8-10.2); CREATININE FOR GFR 4.32 MG/DL (0.55-1.30); GLOMERULAR FILTRATION RATE 10.8 (>39); POTASSIUM SERUM 4.6 MEQ/L (3.5-5.1)
--- NOTE | 2019-04-05 10:23 | IPNPDOC ---
Date Seen The patient was seen on 04/05/19. Progress Note VASCULAR SURGERY Dr Estrella HPI: 68-year-old female admitted to [facility] 03/21/19 related to increased redness and bloody weeping from her left foot ulcer at the heel, which she has had since August [address] Baeza. There was also a new ulcer on the medial malleolus that is growing proximal to the old ulcer. Per the patient, new ulcer has evolved over the past 1-2 weeks, and was also assessed by Dr. Baeza when both wounds were debrided. Vascular surgery consulted 03/27/19 for further evaluation of left foot wound. Of note, patient does have ESRD, on HD MWF as per Nephrology. Also, due to her cirrhosis, she undergoes paracentesis every 2 weeks, S/P paracentesis 03/29/19. Scheduled this AM, 04/05/19. The patient is status post left foot debridement and amputation second and third toes as per Dr. Estrella 03/27/19. The patient is S/P LLE angiogram 03/29/[address] Estrella, no intervention. S/P guilotine amputation Left foot as per Dr Estrella 04/02/19. POD3. Denies any fevers, chills, weakness, fatigue, Headache, Chest Pain, Shortness of breath, cough, palpitations, abdominal pain, N/V/D or changes in bowel or bladder habits. 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 Left arm AV fistula. Appendectomy. Hysterectomy. Bilateral cataracts. PE: GEN: 68 yo F, appears stated age. No acute distress. Alert and oriented. HEENT: Normocephalic, atraumatic. No facial asymmetry. Moist mucous membranes. CHEST: Regular rate and rhythm, +S1, +S2 LUNGS: Clear to auscultation bilaterally. No wheezes, rales, or rhonchi. Breathing appears symmetric and easy. ABD: Round, distended, nontender. +Bowel sounds throughout. No rebound or guarding. EXT: Tr edema RLE. Right foot bandaged. S/P amputation LLE, dressing intact. NEURO: Alert and oriented x 3. Cranial nerves III-XII are intact. No focal deficits appreciated. 03/21 blood culture x2. Negative 03/21 left foot WOUND CULTURE Final Organism 1 ENTEROBACTER CLOACAE COMPLEX QUANTITY OF GROWTH HEAVY Organism 2 STAPHYLOCOCCUS AUREUS QUANTITY OF GROWTH HEAVY Organism 3 STAPH.AUREUS METHICILLIN RESIS QUANTITY OF GROWTH HEAVY FULL REPORT IN LAB NOTES (eCW and Medent). 03/23 left foot wound culture Negative MRI left foot Once again there are findings are Charcot foot which appear unchanged compared to the prior study of 09/04/2018. Diffuse subchondral marrow edema is seen in the distal tibia and fibula as well as the tarsal bones, unchanged. No definite acute osteomyelitis. Diffuse edema and probable cellulitis. Large joint effusion at the tibiotalar joint. Complex fluid collection centered between the second and third metatarsals extends into the plantar soft-tissues along the flexor tendons and also extends into the dorsal soft-tissues. There may be internal foci or air and therefore this may represent an abscess. Electronically Signed by Aureliano Rivas MD 03/26/2019 04:22 P TTE 1. Study is of good technical quality. 2. Normal LV size with mild LVH and hyperdynamic LV systolic function. Grade 1 diastolic dysfunction. 3. Aortic sclerosis with trivial stenosis and insufficiency. 4. Degenerative abnormalities of mitral valve with trace mitral insufficiency. 5. Normal central venous pressure and likely normal pulmonary artery pressure. 6. Small non compressive pericardial effusion. 7. Likely ascites in the abdomen. DD: Apolonia White MD 04/03/19 0811 A&P: 68-year-old female admitted to [facility] 03/21/19 related to increased redness and bloody weeping from her left foot ulcer at the heel, which she has had since August [address] Baeza. There was also a new ulcer on the medial malleolus that is growing proximal to the old ulcer. Per the patient, new ulcer has evolved over the past 1-2 weeks, and was also assessed by Dr. Baeza when both wounds were debrided. Vascular surgery consulted 03/27/19 for further evaluation of left foot wound. Cellulitis of LLE 2/2 infected chronic wound/status post debridement and amputation second and third toes 03/27/19, S/P guilotine amputation Left foot as per Dr Estrella 04/02/19. POD3. Continue Wet to dry dressing daily. Tentative Plan is for BKA Tuesday04/06/19, after paracentesis 04/05 and HD 04/06. Patient is afebrile. SBP 107-126. WBC 8.7 Patient remains on IV Vanco/Zosyn ESRD Hemodialysis as per nephrology. CHF. Fluid management as per nephrology. Chronic anemia. venofer as per nephrology. Aranesp as per nephrology. S/P 1 u PRBC 04/05/19. hgb 8.8 Hx of Liver Cirrhosis s/p paracentesis on 03/29. Pt is on schedule for paracentesis 04/05/19. DVT ppx: heparin sc A-FIB/CHADSVASC A-FIB History Current/History of A-Fib/PAF?: No VS, I&O, 24H, Fishbone Vital Signs/I&O Vital Signs Date Time Temp Pulse Resp B/P (MAP) Pulse Ox O2 Delivery O2 Flow Rate FiO2 04/05/19 08:04 81 120/67 04/05/19 06:46 16 04/05/19 06:00 97.7 94 04/04/19 09:00 2.0 I&O- Last 24 Hours up to 6 AM 04/05/19 06:00 Intake Total 2630 ml Output Total 326 ml Balance 2304 ml Laboratory Data 24H LABS Laboratory Tests 2 04/04/19 13:04: Bedside Glucose (Misc Panel) 232H 04/04/19 17:23: Bedside Glucose (Misc Panel) 257H 04/04/19 20:43: Bedside Glucose (Misc Panel) 280H 04/05/19 06:05: Bedside Glucose (Misc Panel) 213H 04/05/19 07:50: Immature Granulocyte % (Auto) 2.9, White Blood Count 8.7, Red Blood Count 3.17L, Hemoglobin 8.8L, Hematocrit 29.6L, Mean Corpuscular Volume 93.4, Mean Corpuscular Hemoglobin 27.8, Mean Corpuscular Hemoglobin Concent 29.7L, Red Cell Distribution Width 20.1H, Platelet Count 187, Neutrophils (%) (Auto) 64.0, Lymphocytes (%) (Auto) 15.4L, Monocytes (%) (Auto) 13.5H, Eosinophils (%) (Auto) 3.4H, Basophils (%) (Auto) 0.8, Neutrophils # (Auto) 5.6, Lymphocytes # (Auto) 1.3L, Monocytes # (Auto) 1.2H, Eosinophils # (Auto) 0.3, Basophils # (Auto) 0.1, Nucleated Red Blood Cells % (auto) 0.0, Anion Gap 8, Glomerular Filtration Rate 10.8L, Blood Urea Nitrogen 42H, Creatinine 4.32H, Sodium Level 137, Potassium Level 4.6, Chloride Level 102, Carbon Dioxide Level 27, Calcium Level 7.2L CBC/BMP Laboratory Tests 04/05/19 07:50 Red Blood Count 3.17 L, Mean Corpuscular Volume 93.4, Mean Corpuscular Hemoglobin 27.8, Mean Corpuscular Hemoglobin Concent 29.7 L, Red Cell Distribution Width 20.1 H, Neutrophils (%) (Auto) 64.0, Lymphocytes (%) (Auto) 15.4 L, Monocytes (%) (Auto) 13.5 H, Eosinophils (%) (Auto) 3.4 H, Basophils (%) (Auto) 0.8, Neutrophils # (Auto) 5.6, Lymphocytes # (Auto) 1.3 L, Monocytes # (A uto) 1.2 H, Eosinophils # (Auto) 0.3, Basophils # (Auto) 0.1, Calcium Level 7.2 L Microbiology Microbiology 03/27/19 Gram Stain - Final, Complete 03/27/19 Wound Culture - Final, Complete Enterobacter Cloacae Complex Staph.aureus Methicillin Resis Strep Dysgalactiae Ssp Equisim Trini Vieira April 05, 2019 10:23
[2019-04-05] MEDS: HEPARIN SOD (PORCINE) 5000 UNITS/ML VIAL SC SCH ×2 (12:10→21:59)
[2019-04-05] MEDS: PIPERACILLIN/TAZOBACTAM SOD 2.25 GM in D5W MINI-BAG PLUS 50 ML IV SCH ×2 (12:29→23:32)
--- NOTE | 2019-04-05 13:25 | IPNPDOC ---
Subjective Date Seen The patient was seen on 04/05/19. Subjective Chief Complaint/HPI Patient is leaving for paracentesis to be done by IR General: Denies: ROS Unobtainable, Chills, Night Sweats, Fatigue, Malaise, Normal Appetite, Other Symptoms Constitutional: Denies: Chills, Fever, Malaise, Night Sweats, Weakness, Fatigue, Weight Loss, Lethargy, Other Eyes: Denies: Pain, Vision change, Conjunctivae inflammation, Eyelid inflammation, Redness, Other ENT: Denies: Head Aches, Ear Pain, Dysphagia, Sinus Congestion, Post Nasal Drip, Sore Throat, Epistaxis, Other Symptoms Skin: Denies: Rash, Lesions, Jaundice, Bruising, Itching, Dry, Breakdown, Nail Changes, Other Pulmonary: Denies: Dyspnea, Cough, Pleuritic Chest Pain, Other Symptoms Cardiovascular: Denies: Chest Pain, Palpitations, Orthopnea, Paroxysmal Noc. Dyspnea, Edema, Lt Headedness, Other Symptoms Gastrointestinal: Denies: Nausea, Vomiting, Abdominal Pain, Diarrhea, Constipation, Melena, Hematochezia, Other Symptoms Genitourinary: Denies: Dysuria, Frequency, Incontinence, Hematuria, Retention, Other Symptoms Hematologic: Denies: Bruising, Bleeding Excessively, Petecchia, Purpura, Enlarged Lymph Nodes, Other Hematologic Endocrine: Denies: Polydipsia, Polyphagia, Polyuria, Heat Intolerance, Cold Intolerance, Other Endocrine Sx Musculoskeletal: Denies: Neck Pain, Back Pain, Shoulder Pain, Arm Pain, Hand Pain, Leg Pain, Foot Pain, Joint Pain, Muscle Pain, Spasms, Other Symptoms Neurological: Denies: Weakness, Numbness, Incoordination, Change in speech, Confusion, Seizures, Other Symptoms Psych: Denies: Mood Normal, Anxiety, Depression, Memory Issues, Thoughts of Self Harm, Anger, Thoughts of Harming Other, Other Psych Objective Physical Examination General Exam: Positive: Alert, Cooperative, No Acute Distress ENT Exam: Positive: Atraumatic, Mucous membr. moist/pink Chest Exam: Positive: Diminished Heart Exam: Positive: Rate Normal, Normal S1, Normal S2 Abdomen Exam: Positive: Soft, Other (distended, positive fluid wave); Negative: Tenderness Extremity Exam: Positive: Other (status post left lower extremity BKA dressing in place); Negative: Tenderness Skin Exam: Positive: Other skin issue (left foot noted to be wrapped in surgical dressing.) Psych Exam: Positive: Oriented x 3 A-FIB/CHADSVASC A-FIB History Current/History of A-Fib/PAF?: No Assessment /Plan Problems (1) Cellulitis of foot Status: Acute Problem Text: 68-year-old female admitted to [facility] 03/21/19 related to increased redness and bloody weeping from her left foot ulcer at the heel, which she has had since August [address] Baeza. There was also a new ulcer on the medial malleolus that is growing proximal to the old ulcer. Per the patient, new ulcer has evolved over the past 1-2 weeks, and was also assessed by Dr. Baeza when both wounds were debrided. Vascular surgery consulted 03/27/19 for further evaluation of left foot wound. The patient is status post left foot debridement and amputation second and third toes as per Dr. Estrella 03/27/19. The patient is S/P LLE angiogram 03/29/[address] Estrella, no intervention. S/P guilotine amputation Left foot as per Dr Estrella 04/02/19. POD1. Plan is for BKA Tue/ this week pending LLE cellulitis. Patient had a paracentesis done today. We will order albumin as per nephrology recommendation Scheduled for BKA tomorrow morning Further, as per vascular surgery and nephrology Plan/VTE VTE Prophylaxis Ordered?: Yes VS, I&O, 24H, Fishbone Vital Signs/I&O Vital Signs Date Time Temp Pulse Resp B/P (MAP) Pulse Ox O2 Delivery O2 Flow Rate FiO2 04/05/19 12:30 17 04/05/19 11:00 97.5 70 137/67 (90) 93 04/04/19 09:00 2.0 I&O- Last 24 Hours up to 6 AM 04/05/19 06:00 Intake Total 2630 ml Output Total 326 ml Balance 2304 ml Laboratory Data 24H LABS Laboratory Tests 2 04/04/19 17:23: Bedside Glucose (Misc Panel) 257H 04/04/19 20:43: Bedside Glucose (Misc Panel) 280H 04/05/19 06:05: Bedside Glucose (Misc Panel) 213H 04/05/19 07:50: Immature Granulocyte % (Auto) 2.9, White Blood Count 8.7, Red Blood Count 3.17L, Hemoglobin 8.8L, Hematocrit 29.6L, Mean Corpuscular Volume 93.4, Mean Corpuscular Hemoglobin 27.8, Mean Corpuscular Hemoglobin Concent 29.7L, Red Cell Distribution Width 20.1H, Platelet Count 187, Neutrophils (%) (Auto) 64.0, Lymphocytes (%) (Auto) 15.4L, Monocytes (%) (Auto) 13.5H, Eosinophils (%) (Auto) 3.4H, Basophils (%) (Auto) 0.8, Neutrophils # (Auto) 5.6, Lymphocytes # (Auto) 1.3L, Monocytes # (Auto) 1.2H, Eosinophils # (Auto) 0.3, Basophils # (Auto) 0.1, Nucleated Red Blood Cells % (auto) 0.0, Anion Gap 8, Glomerular Filtration Rate 10.8L, Blood Urea Nitrogen 42H, Creatinine 4.32H, Sodium Level 137, Potassium Level 4.6, Chloride Level 102, Carbon Dioxide Level 27, Calcium Level 7.2L 04/05/19 11:40: Bedside Glucose (Misc Panel) 175H CBC/BMP Laboratory Tests 04/05/19 07:50 Red Blood Count 3.17 L, Mean Corpuscular Volume 93.4, Mean Corpuscular Hemoglobin 27.8, Mean Corpuscular Hemoglobin Concent 29.7 L, Red Cell Distribution Width 20.1 H, Neutrophils (%) (Auto) 64.0, Lymphocytes (%) (Auto) 15.4 L, Monocytes (%) (Auto) 13.5 H, Eosinophils (%) (Auto) 3.4 H, Basophils (%) (Auto) 0.8, Neutrophils # (Auto) 5.6, Lymphocytes # (Auto) 1.3 L, Monocytes # (Auto) 1.2 H, Eosinophils # (Auto) 0.3, Basophils # (Auto) 0.1, Calcium Level 7.2 L Microbiology Microbiology 03/27/19 Gram Stain - Final, Complete 03/27/19 Wound Culture - Final, Complete Enterobacter Cloacae Complex Staph.aureus Methicillin Resis Strep Dysgalactiae Ssp Equisim SHAGGY MASON MD April 05, 2019 13:25
[2019-04-05] MEDS: **VANCO AFTER HD** MISC XX SCH (15:52)
--- NOTE | 2019-04-05 16:15 | REP ---
Ultrasound-guided paracentesis The procedure was performed by Carmelo Sierra, under the direct supervision of Dr. Rivas. The risks and benefits of the procedure were explained to the patient and informed consent was obtained both verbally and written. Directly prior to the start of the procedure, a formal timeout was completed in the procedure room. Under ultrasound guidance, the largest pocket of fluid in the left flank was localized and skin was marked. The skin was then prepped and draped in a sterile fashion. 10 ml of 1% lidocaine was used as a local anesthetic. Using ultrasound guidance, an 8-[place] multi side-hole catheter was inserted using trocar technique. 4,700 mL of clear yellow colored fluid was withdrawn and discarded. The patient tolerated the procedure well and there were no immediate complications. After the appropriate monitored convalescence the patient was discharged from the department. Reviewed by ANTONIO Song 04/05/2019 09:53 A Electronically Signed by Aureliano Rivas MD 04/05/2019 04:06 P
[2019-04-05] MEDS: traZODone 50 MG TAB PO PRN (21:58)
[2019-04-05] MEDS: SIMVASTATIN 20 MG TAB PO SCH (21:58)
[2019-04-05] MEDS: rOPINIRole 1MG TAB PO SCH (21:58)
[2019-04-06] VITALS (8 sets, daily range): BP systolic 97–135; BP diastolic 54–82; O2SAT 94–98
[2019-04-06] MEDS: PERCOCET 5MG/325MG TAB PO PRN ×3 (00:54→17:45)
[2019-04-06] MEDS: LEVOTHYROXINE 125MCG TABLET (0.125MG) PO SCH (05:37)
[2019-04-06 07:07] LABS: BASO # 0.1 10^3/uL (0.0-0.2); BASO % 0.9 % (0.0-1.0); EOS # 0.2 10^3/uL (0.0-0.50); EOS % 2.9 % (0.0-3.0); HEMATOCRIT 32.5 % (36.0-47.0); HEMOGLOBIN 9.6 g/dl (12.0-15.5); LYMPH # 1.2 10^3/uL (1.5-4.5); MEAN CORPUSCULAR HEMOGLOBIN 28.8 pg (27.0-33.0); MEAN CORPUSCULAR HGB CONC 29.5 g/dl (32.0-36.5); MEAN CORPUSCULAR VOLUME 97.6 fl (80.0-96.0); MONO % 12.7 % (0.0-5.0); NEUTROPHILS # 5.3 10^3/uL (1.8-7.7); NEUTROPHILS % 67.1 % (36.0-66.0); PLATELET COUNT, AUTOMATED 165 10^3/uL (150-450); RED BLOOD COUNT 3.33 10^6/uL (4.00-5.40); WHITE BLOOD COUNT 7.9 10^3/uL (4.0-10.0)
[2019-04-06] MEDS: HumaLOG INSULIN (NovoLOG) PER UNIT SC SCH ×4 (07:30→20:37)
[2019-04-06 07:58] LABS: CALCIUM LEVEL 7.2 MG/DL (8.8-10.2); CREATININE FOR GFR 5.38 MG/DL (0.55-1.30); GLOMERULAR FILTRATION RATE 8.4 (>39); POTASSIUM SERUM 4.9 MEQ/L (3.5-5.1); VANCOMYCIN RANDOM 19.7 UG/ML
[2019-04-06] MEDS: CALCIUM CARBONATE 500 MG CHEW U/D PO SCH ×3 (08:00→17:43)
[2019-04-06] MEDS: PANTOPRAZOLE 40MG TAB (PROTONIX) PO SCH (08:29)
[2019-04-06] MEDS: GABAPENTIN 300 MG CAP PO SCH ×2 (08:29→20:32)
[2019-04-06] MEDS: LEVEMIR (INSULIN DETEMIR) 1 UNITS/0.01ML SC SCH ×2 (08:29→20:51)
[2019-04-06] MEDS: METOPROLOL SUCC *XL* 25MG TAB (TopROL *XL*) PO SCH ×3 (08:29→20:33)
[2019-04-06] MEDS: DULoxetine 30 MG CAP (CYMBALTA) PO SCH (08:29)
[2019-04-06] MEDS: HEPARIN SOD (PORCINE) 5000 UNITS/ML VIAL SC SCH ×2 (08:37→20:34)
[2019-04-06] MEDS: CLOPIDOGREL 75 MG TAB PO SCH (08:37)
[2019-04-06] MEDS: EUCERIN 120GM CREAM TOP SCH ×2 (08:38→20:36)
--- NOTE | 2019-04-06 09:09 | IPNPDOC ---
Text Note Date of Service The patient was seen on 04/05/19. NOTE Nephrology Service: Subjective: Patient seen and examined at bedside. Was very difficult to arouse today, but she did awaken and answer questions appropriately. Was also mentating appropriately. Is status-post guilotine amputation of L foot post-operative day #[address] Estrella on 04/02/19. Is status-post 1 unit PRBCs yesterday. Is afebrile and hemodynamically stable today. Blood pressures have improved since yesterday. Had paracentesis today with 8.3 liters of yellow fluid was drained. Will be going for L BKA procedure tomorrow with Dr. Estrella. Postoperative pain better controlled today. Denies fevers, chills, chest pain, SOB, nausea, vomiting, abdominal pain, diarrhea, constipation. Was last dialyzed on 04/04/19 with 126 mL out. Objective: Vitals: T: 97.7 BP: 120/67 RR: 19 P: 81 O2 Saturation: 94% on room air Weight: 84.9 kg yesterday and 85.4 kg today. Intake: 2390 ml Output: 326 mL Balance: (+) 2064 ml Urine Total: 326 mL BMs: 3 General: AAO x 3. Extremely drowsy this morning. Lying comfortably in bed in NAD asleep. Obese female. Speaks very softly. Pleasant and cooperative. Fatigued appearing. Answering questions appropriately, however, appears very weak and drowsy. HEENT: Head: normocephalic, atraumatic. Neck: Supple. Mild JVD. Respiratory: Clear to auscultation bilaterally with no wheezes, rales, or rhonchi. Cardiovascular: (+)S1S2, regular rate and rhythm, with no murmurs, rubs or gallops. Abdomen: Soft, distended, ascites present but improved from yesterday, nontender. Normoactive bowel sounds. Extremities: Dressing on L leg status-post L foot amputation. L leg dressing appears clean, dry, intact without any stains of drainage. (+)1 pitting edema of bilateral lower extremities. Vascular: LUE fistula is present. Musculoskeletal: Chronic venous stasis changes bilaterally. Neurological: Answering questions appropriately. Mentating appropriately. However, very drowsy. Laboratory data: CBC: WBC 8.7, Hgb 8.8 (L), Platelets 187. BMP: Na 137, K 4.6, BUN 42 (H), Cr 4.32 (H), CO2 27, GFR 10.8 (L), glucose 221 (H). POC Glucose: 213 (H) Current Inpatient Medications: Vancomycin 750 mg IV HD Zosyn 2.25 mg/dextrose IV HD Detemir 10 units SC Daily Detemir 10 units QHS Humalog at AC and QHS Venofer (Iron) 100 mg IV HD Ropinirole 1 mg PO QHS Aranesp (Darbepoetin Yordan) 100 mcg HD IV Metoprolol succinate 25 mg PO BID Veltassa (Patiromer) 8.4 gm as directed PRN PO missing dialysis No other change in the medications today as compared with yesterday. Assessment/Plan: 1. End-stage renal disease on hemodialysis on Tuesday, Tuesday, Tuesday schedule: Patient received dialysis last yesterday with 126 mL out. BPs improved from yesterday. BPs ranging from 120s systolic/60s diastolic. Her electrolytes are acceptable and her fistula is in good use. On veltassa for hyperkalemia PRN. Continue to monitor Intake and Output as well as BMP/electrolytes. Due to upcoming L BKA procedure tomorrow, will defer dialysis to until Tuesday. 2. Hypertension: BPs improved today. Continue metoprolol with hold parameters in place. Will continue to monitor. 3. Recurrent ascites status post paracentesis x3 on this admission: Had paracentesis today with 8.3 liters of yellow fluid was drained. Paracentesis only performed 1-2 times per month in outpatient setting. Plavix does need to be held for several days prior to each tap and she does have a history of coronary artery disease. Albumin being given later today by primary team. 4. Diastolic congestive heart failure with exacerbation: According to most recent echocardiogram, patient has grade 1 diastolic dysfunction. Has hx of chronic fluid overload secondary to noncompliance in the outpatient office. Patient also noncompliant with her fluid restrictions. Patient also has hx of recurrent ascites. Have to be cautious with removal of fluid during dialysis secondary to patient's hx of recent soft blood pressures. 5. Anemia secondary to end-stage renal disease, iron deficiency and chronic inflammation: Hemoglobin is 8.8 (L). Continue Aranesp and Venofer 100 mg HD IV. Status-post 1 unit PRBCs yesterday. Continue to monitor CBC. 6. Left foot abscess and Charcot foot status-post guilotine amputation of L foot post-operative day #[address] Estrella on 04/02/19 vascular surgery. Spoke to Trini FISHER on Vascular Surgery who reports patient is scheduled for L BKA on 04/06/19. Continues on renally dosed antibiotics managed as per the primary team. My preceptor for this patient encounter was Dr. Mic Grullon, and was physi kehinde present in the building during the encounter and was fully available. As needed, all aspects of the patient interview, examination, medical decision making process, and medical care plan development were reviewed and approved by the preceptor. Preceptor is aware and concurs with the plan as stated in the body of this note and will attest to such by his/her cosignature. A-FIB/CHADSVASC A-FIB History Current/History of A-Fib/PAF?: No Current Oral Anticoagulant The: No VS,Fishbone, I+O VS, Fishbone, I+O Laboratory Tests 04/05/19 07:50 Red Blood Count 3.17 L, Mean Corpuscular Volume 93.4, Mean Corpuscular Hemoglobin 27.8, Mean Corpuscular Hemoglobin Concent 29.7 L, Red Cell Distribution Width 20.1 H, Neutrophils (%) (Auto) 64.0, Lymphocytes (%) (Auto) 15.4 L, Monocytes (%) (Auto) 13.5 H, Eosinophils (%) (Auto) 3.4 H, Basophils (%) (Auto) 0.8, Neutrophils # (Auto) 5.6, Lymphocytes # (Auto) 1.3 L, Monocytes # (Auto) 1.2 H, Eosinophils # (Auto) 0.3, Basophils # (Auto) 0.1, Calcium Level 7.2 L Vital Signs Date Time Temp Pulse Resp B/P (MAP) Pulse Ox O2 Delivery O2 Flow Rate FiO2 04/05/19 21:58 77 134/82 04/05/19 19:05 16 04/05/19 17:00 98.0 94 04/04/19 09:00 2.0 I&O- Last 24 Hours up to 6 AM 04/05/19 06:00 Intake Total 2630 ml Output Total 326 ml Balance 2304 ml JENISE LUCERO DO April 05, 2019 23:38
[2019-04-06] MEDS: PIPERACILLIN/TAZOBACTAM SOD 2.25 GM in D5W MINI-BAG PLUS 50 ML IV SCH (11:00)
--- NOTE | 2019-04-06 11:04 | IPNPDOC ---
Subjective Date Seen The patient was seen on 04/06/19. Subjective Chief Complaint/HPI Sleeping very well, easily arousable, complaining of pain in the surgical site, but no other new complaints General: Denies: ROS Unobtainable, Chills, Night Sweats, Fatigue, Malaise, Normal Appetite, Other Symptoms Constitutional: Denies: Chills, Fever, Malaise, Night Sweats, Weakness, Fatigue, Weight Loss, Lethargy, Other Eyes: Denies: Pain, Vision change, Conjunctivae inflammation, Eyelid inflammation, Redness, Other ENT: Denies: Head Aches, Ear Pain, Dysphagia, Sinus Congestion, Post Nasal Drip, Sore Throat, Epistaxis, Other Symptoms Skin: Denies: Rash, Lesions, Jaundice, Bruising, Itching, Dry, Breakdown, Nail Changes, Other Pulmonary: Denies: Dyspnea, Cough, Pleuritic Chest Pain, Other Symptoms Cardiovascular: Denies: Chest Pain, Palpitations, Orthopnea, Paroxysmal Noc. Dyspnea, Edema, Lt Headedness, Other Symptoms Gastrointestinal: Denies: Nausea, Vomiting, Abdominal Pain, Diarrhea, Constipation, Melena, Hematochezia, Other Symptoms Genitourinary: Denies: Dysuria, Frequency, Incontinence, Hematuria, Retention, Other Symptoms Hematologic: Denies: Bruising, Bleeding Excessively, Petecchia, Purpura, Enl arged Lymph Nodes, Other Hematologic Endocrine: Denies: Polydipsia, Polyphagia, Polyuria, Heat Intolerance, Cold Intolerance, Other Endocrine Sx Musculoskeletal: Denies: Neck Pain, Back Pain, Shoulder Pain, Arm Pain, Hand Pain, Leg Pain, Foot Pain, Joint Pain, Muscle Pain, Spasms, Other Symptoms Neurological: Denies: Weakness, Numbness, Incoordination, Change in speech, Confusion, Seizures, Other Symptoms Psych: Denies: Mood Normal, Anxiety, Depression, Memory Issues, Thoughts of Self Harm, Anger, Thoughts of Harming Other, Other Psych Objective Physical Examination General Exam: Positive: Alert, Cooperative, No Acute Distress ENT Exam: Positive: Atraumatic, Mucous membr. moist/pink Chest Exam: Positive: Diminished Heart Exam: Positive: Rate Normal, Normal S1, Normal S2 Abdomen Exam: Positive: Soft, Other (distended, positive fluid wave); Negative: Tenderness Extremity Exam: Positive: Other (status post left lower extremity BKA dressing in place); Negative: Tenderness Skin Exam: Positive: Other skin issue (left foot noted to be wrapped in surgical dressing.) Psych Exam: Positive: Oriented x 3 A-FIB/CHADSVASC A-FIB History Current/History of A-Fib/PAF?: No Assessment /Plan Problems (1) Cellulitis of foot Status: Acute Problem Text: 68-year-old female admitted to [facility] 03/21/19 related to increased redness and bloody weeping from her left foot ulcer at the heel, which she has had since August [address] Baeza. There was also a new ulcer on the medial malleolus that is growing proximal to the old ulcer. Per the patient, new ulcer has evolved over the past 1-2 weeks, and was also assessed by Dr. Baeza when both wounds were debrided. Vascular surgery consulted 03/27/19 for further evaluation of left foot wound. The patient is status post left foot debridement and amputation second and third toes as per Dr. Estrella 03/27/19. The patient is S/P LLE angiogram 03/29/[address] Estrella, no intervention. S/P guilotine amputation Left foot as per Dr Estrella 04/02/19. POD1. Plan is for BKA Tue/ this week pending LLE cellulitis. Patient had a paracentesis done yesterday and did receive a supplementation with albumin status-post guilotine amputation of L foot post-operative day #[address] Estrella on 04/02/19. Is status-post 1 unit PRBCs yesterday. Is afebrile and hemodynamically stable today. Blood pressures have improved since yesterday. Had paracentesis today with 4.7 liters of drained. Will be going for L BKA procedure tomorrow with Dr. Estrella. Postoperative pain better controlled today. Denies fevers, chills, chest pain, SOB, nausea, vomiting, abdominal pain, diarrhea, constipation. Was last dialyzed on 04/04/19 with 126 mL out. Plan/VTE VTE Prophylaxis Ordered?: Yes VS, I&O, 24H, Fishbone Vital Signs/I&O Vital Signs Date Time Temp Pulse Resp B/P (MAP) Pulse Ox O2 Delivery O2 Flow Rate FiO2 04/06/19 08:37 67 97/50 04/06/19 07:14 16 04/06/19 06:00 98.0 92 04/04/19 09:00 2.0 I&O- Last 24 Hours up to 6 AM 04/06/19 06:00 Intake Total 2220 ml Output Total 0 ml Balance 2220 ml Laboratory Data 24H LABS Laboratory Tests 2 04/05/19 11:40: Bedside Glucose (Misc Panel) 175H 04/05/19 16:41: Bedside Glucose (Misc Panel) 305H 04/05/19 20:55: Bedside Glucose (Misc Panel) 256H 04/06/19 06:47: Immature Granulocyte % (Auto) 1.4, White Blood Count 7.9, Red Blood Count 3.33L, Hemoglobin 9.6L, Hematocrit 32.5L, Mean Corpuscular Volume 97.6H, Mean Corpuscular Hemoglobin 28.8, Mean Corpuscular Hemoglobin Concent 29.5L, Red Cell Distribution Width 20.6H, Platelet Count 165, Neutrophils (%) (Auto) 67.1H, Lymphocytes (%) (Auto) 15.0L, Monocytes (%) (Auto) 12.7H, Eosinophils (%) (Auto) 2.9, Basophils (%) (Auto) 0.9, Neutrophils # (Auto) 5.3, Lymphocytes # (Auto) 1.2L, Monocytes # (Auto) 1.0H, Eosinophils # (Auto) 0.2, Basophils # (Auto) 0.1, Nucleated Red Blood Cells % (auto) 0.0, Anion Gap 10, Glomerular Filtration Rate 8.4L, Blood Urea Nitrogen 58H, Creatinine 5.38H, Sodium Level 137, Potassium Level 4.9, Chloride Level 106, Carbon Dioxide Level 21, Calcium Level 7.2L, Random Vancomycin Level 19.7 CBC/BMP Laboratory Tests 04/06/19 06:47 Red Blood Count 3.33 L, Mean Corpuscular Volume 97.6 H, Mean Corpuscular Hemoglobin 28.8, Mean Corpuscular Hemoglobin Concent 29.5 L, Red Cell Distribution Width 20.6 H, Neutrophils (%) (Auto) 67.1 H, Lymphocytes (%) (Auto) 15.0 L, Monocytes (%) (Auto) 12.7 H, Eosinophils (%) (Auto) 2.9, Basophils (%) (Auto) 0.9, Neutrophils # (Auto) 5.3, Lymphocytes # (Auto) 1.2 L, Monocytes # (Auto) 1.0 H, Eosinophils # (Auto) 0.2, Basophils # (Auto) 0.1, Calcium Level 7. 2 L Microbiology Microbiology 03/27/19 Gram Stain - Final, Complete 03/27/19 Wound Culture - Final, Complete Enterobacter Cloacae Complex Staph.aureus Methicillin Resis Strep Dysgalactiae Ssp Equisim SHAGGY MASON MD April 06, 2019 11:04
[2019-04-06] MEDS ORDERED: ZOSYN 2.25 GM VIAL (J2543) As Ordered ONE (12:04)
[2019-04-06] MEDS ORDERED: VANCOMYCIN 1000 MG/20 ML VIAL (J3370) As Ordered ONE (12:04)
[2019-04-06] MEDS ORDERED: LIDOCAINE 2% INJ 100 MG/5 ML SDV (FOR ANES.) As Ordered ONE (12:57)
[2019-04-06] MEDS ORDERED: fentaNYL 100 MCG/2 ML INJECTION (J3010) As Ordered ONE (12:57)
[2019-04-06] MEDS ORDERED: PROPOFOL 200 MG/20 ML VIAL As Ordered ONE (12:57)
[2019-04-06] MEDS ORDERED: PHENYLEPHRINE INJ 10MG/ML VIAL (J2370) As Ordered ONE (12:57)
[2019-04-06] MEDS ORDERED: KETAMINE HCL 200 MG/20 ML VIAL As Ordered ONE (12:57)
[2019-04-06] MEDS ORDERED: MIDAZOLAM INJ 2 MG/2 ML VIAL (J2250) As Ordered ONE (12:57)
[2019-04-06] MEDS ORDERED: ONDANSETRON 4MG/2ML VIAL (J2405) As Ordered ONE (12:58)
[2019-04-06] MEDS ORDERED: LIDOCAINE 1% SDV 5 ML VIAL SQ ONE (13:30)
[2019-04-06] MEDS ORDERED: NS 1,000 ML IV SCH (14:15)
[2019-04-06] MEDS ORDERED: PERCOCET 5MG/325MG TAB PO PRN (14:15)
[2019-04-06] MEDS ORDERED: PHENYLEPHRINE HCL INJ 10 MG in D5W 99 ML IV SCH (14:15)
[2019-04-06] MEDS ORDERED: fentaNYL 100 MCG/2 ML INJECTION (J3010) IV PRN (14:15)
[2019-04-06] MEDS ORDERED: ONDANSETRON 4MG/2ML VIAL (J2405) IV PRN (14:15)
[2019-04-06] MEDS: fentaNYL 100 MCG/2 ML INJECTION (J3010) IV PRN ×4 (14:25→14:45)
[2019-04-06] MEDS: HYDROMORPHONE HCL 0.5 MG/ 0.5 ML SYRINGE (J1170 PER 1) IV PRN ×3 (15:30→15:45)
[2019-04-06] MEDS: **VANCO AFTER HD** MISC XX SCH (15:32)
[2019-04-06] MEDS ORDERED: NALOXONE INJ 0.4 MG/1 ML VIAL (J2310) As Ordered ONE (16:44)
[2019-04-06] MEDS ORDERED: NALOXONE INJ 0.4 MG/1 ML VIAL (J2310) IV STA (16:44)
[2019-04-06] MEDS ORDERED: PHENYLephrine HCL 500 MCG/5 ML (100MCG/ML) SYRINGE (J2370) ONE (16:59)
[2019-04-06] MEDS ORDERED: PHENYLEPHRINE INJ 10MG/ML VIAL (J2370) ONE (16:59)
[2019-04-06] MEDS ORDERED: MORPHINE 4 MG/ML 1ML VIAL/SYRINGE (J2270) IV ONE (18:15)
[2019-04-06] MEDS: MORPHINE 4 MG/ML 1ML VIAL/SYRINGE (J2270) IV PRN (20:28)
[2019-04-06] MEDS ORDERED: KETOROLAC 60 MG/2 ML VIAL (J1885) IM ONE (20:30)
[2019-04-06] MEDS: SIMVASTATIN 20 MG TAB PO SCH (20:32)
[2019-04-06] MEDS: rOPINIRole 1MG TAB PO SCH (20:50)
[2019-04-06] MEDS: ACETAMINOPHEN TAB 650MG DOSE (2X325MG) PO PRN (20:50)
[2019-04-07] VITALS (17 sets, daily range): BP systolic 101–131; BP diastolic 51–70; O2SAT 88–100
[2019-04-07] MEDS: PIPERACILLIN/TAZOBACTAM SOD 2.25 GM in D5W MINI-BAG PLUS 50 ML IV SCH ×3 (00:10→23:37)
[2019-04-07] MEDS: PERCOCET 5MG/325MG TAB PO PRN ×4 (00:15→21:34)
[2019-04-07] MEDS: MORPHINE 4 MG/ML 1ML VIAL/SYRINGE (J2270) IV PRN ×5 (00:16→16:01)
[2019-04-07 05:22] LABS: BASO # 0.1 10^3/uL (0.0-0.2); BASO % 0.8 % (0.0-1.0); EOS # 0.4 10^3/uL (0.0-0.50); EOS % 3.6 % (0.0-3.0); HEMATOCRIT 25.5 % (36.0-47.0); HEMOGLOBIN 7.6 g/dl (12.0-15.5); LYMPH # 1.5 10^3/uL (1.5-4.5); LYMPH % 15.1 % (24.0-44.0); MEAN CORPUSCULAR HEMOGLOBIN 28.8 pg (27.0-33.0); MEAN CORPUSCULAR HGB CONC 29.8 g/dl (32.0-36.5); MEAN CORPUSCULAR VOLUME 96.6 fl (80.0-96.0); MONO # 1.3 10^3/uL (0.0-0.8); MONO % 13.4 % (0.0-5.0); NEUTROPHILS # 6.3 10^3/uL (1.8-7.7); NEUTROPHILS % 65.5 % (36.0-66.0); PLATELET COUNT, AUTOMATED 158 10^3/uL (150-450); RED BLOOD COUNT 2.64 10^6/uL (4.00-5.40); WHITE BLOOD COUNT 9.6 10^3/uL (4.0-10.0)
[2019-04-07 05:34] LABS: CALCIUM LEVEL 6.9 MG/DL (8.8-10.2); CREATININE FOR GFR 4.08 MG/DL (0.55-1.30); GLOMERULAR FILTRATION RATE 11.5 (>39); POTASSIUM SERUM 4.5 MEQ/L (3.5-5.1)
[2019-04-07] MEDS: LEVOTHYROXINE 125MCG TABLET (0.125MG) PO SCH (06:56)
[2019-04-07] MEDS: HumaLOG INSULIN (NovoLOG) PER UNIT SC SCH ×4 (07:30→21:00)
[2019-04-07] MEDS: CLOPIDOGREL 75 MG TAB PO SCH (08:35)
[2019-04-07] MEDS: DULoxetine 30 MG CAP (CYMBALTA) PO SCH (08:38)
[2019-04-07] MEDS: GABAPENTIN 300 MG CAP PO SCH ×2 (08:38→21:34)
[2019-04-07] MEDS: PANTOPRAZOLE 40MG TAB (PROTONIX) PO SCH (08:38)
[2019-04-07] MEDS: METOPROLOL SUCC *XL* 25MG TAB (TopROL *XL*) PO SCH ×2 (08:39→21:34)
[2019-04-07] MEDS: LEVEMIR (INSULIN DETEMIR) 1 UNITS/0.01ML SC SCH ×2 (08:40→21:45)
[2019-04-07] MEDS: CALCIUM CARBONATE 500 MG CHEW U/D PO SCH ×3 (08:40→18:06)
[2019-04-07] MEDS: HEPARIN SOD (PORCINE) 5000 UNITS/ML VIAL SC SCH ×2 (08:40→21:44)
[2019-04-07] MEDS: EUCERIN 120GM CREAM TOP SCH ×2 (08:40→21:45)
--- NOTE | 2019-04-07 09:53 | IPNPDOC ---
Subjective Date Seen The patient was seen on 04/07/19. Subjective Chief Complaint/HPI Patient is comfortable now. Pain is 7/10, but improved with morphine and Percocet General: Denies: ROS Unobtainable, Chills, Night Sweats, Fatigue, Malaise, Normal Appetite, Other Symptoms Constitutional: Denies: Chills, Fever, Malaise, Night Sweats, Weakness, Fatigue, Weight Loss, Lethargy, Other Eyes: Denies: Pain, Vision change ENT: Denies: Head Aches, Ear Pain, Dysphagia, Sinus Congestion, Post Nasal Drip, Sore Throat, Epistaxis, Other Symptoms Skin: Denies: Rash, Lesions, Jaundice, Bruising, Itching, Dry, Breakdown, Nail Changes, Other Pulmonary: Denies: Dyspnea, Cough, Pleuritic Chest Pain, Other Symptoms Cardiovascular: Denies: Chest Pain, Palpitations, Orthopnea, Paroxysmal Noc. Dyspnea, Edema, Lt Headedness, Other Symptoms Gastrointestinal: Denies: Nausea, Vomiting, Abdominal Pain, Diarrhea, Constipation, Melena, Hematochezia, Other Symptoms Genitourinary: Denies: Dysuria, Frequency, Incontinence, Hematuria, Retention, Other Symptoms Hematologic: Denies: Bruising, Bleeding Excessively, Petecchia, Purpura, Enlarged Lymph Nodes, Other Hematologic Endocrine: Denies: Polydipsia, Polyphagia, Polyuria, Heat Intolerance, Cold Intolerance, Other Endocrine Sx Musculoskeletal: Denies: Neck Pain, Back Pain, Shoulder Pain, Arm Pain, Hand Pain, Leg Pain, Foot Pain, Joint Pain, Muscle Pain, Spasms, Other Symptoms Neurological: Denies: Weakness, Numbness, Incoordination, Change in speech, Confusion, Seizures, Other Symptoms Psych: Denies: Mood Normal, Anxiety, Depression, Memory Issues, Thoughts of Self Harm, Anger, Thoughts of Harming Other, Other Psych Objective Physical Examination General Exam: Positive: Alert, Cooperative, No Acute Distress ENT Exam: Positive: Atraumatic, Mucous membr. moist/pink Chest Exam: Positive: Diminished Heart Exam: Positive: Rate Normal, Normal S1, Normal S2 Abdomen Exam: Positive: Soft, Other (distended, positive fluid wave); Negative: Tenderness Extremity Exam: Positive: Other (status post left lower extremity BKA dressing in place); Negative: Tenderness Skin Exam: Positive: Other skin issue (left foot noted to be wrapped in surgical dressing.) Psych Exam: Positive: Oriented x 3 A-FIB/CHADSVASC A-FIB History Current/History of A-Fib/PAF?: No Assessment /Plan Problems (1) Cellulitis of foot Status: Acute Problem Text: 68-year-old female admitted to [facility] 03/21/19 related to increased redness and bloody weeping from her left foot ulcer at the heel, which she has had since August [address] Baeza. There was also a new ulcer on the medial malleolus that is growing proximal to the old ulcer. Per the patient, new ulcer has evolved over the past 1-2 weeks, and was also assessed by Dr. Baeza when both wounds were debrided. Vascular surgery consulted 03/27/19 for further evaluation of left foot wound. The patient is status post left foot debridement and amputation second and third toes as per Dr. Estrella 03/27/19. The patient is S/P LLE angiogram 03/29/[address] Estrella, no intervention. S/P guilotine amputation Left foot as per Dr Estrella 04/02/19. POD1. Plan is for BKA Tue/ this week pending LLE cellulitis. Patient had a paracentesis done yesterday and did receive a supplementation with albumin status-post guilotine amputation of L foot post-operative day #[address] Estrella on 04/02/19. Is status-post 1 unit PRBCs yesterday. Is afebrile and hemodynamically stable today. Blood pressures have improved since yesterday. Had paracentesis today with 4.7 liters of drained. Will be going for L BKA procedure tomorrow with Dr. Estrella. Postoperative pain better controlled today. Denies fevers, chills, chest pain, SOB, nausea, vomiting, abdominal pain, diarrhea, constipation. Was last dialyzed on 04/04/19 with 126 mL out. Status post below-knee amputation of left foot by Dr. Estrella Postop she developed episode of respiratory distress but was reversed with Narcan Patient has been transferred to PCU, which is being monitored closely and also pain management with morphine and Percocet has been started Patient is alert, oriented 3, in no apparent distress. We will continue the present care. Further, as per surgical recommendations Plan/VTE VTE Prophylaxis Ordered?: Yes VS, I&O, [facility] Vital Signs/I&O Vital Signs Date Time Temp Pulse Resp B/P (MAP) Pulse Ox O2 Delivery O2 Flow Rate FiO2 04/07/19 08:39 66 106/51 04/07/19 08:38 18 97 2.0 04/07/19 08:00 97.7 04/07/19 04:00 Nasal Cannula I&O- Last 24 Hours up to 6 AM 04/07/19 06:00 Intake Total 530 ml Output Total 150 ml Balance 380 ml Laboratory Data 24H LABS Laboratory Tests 2 04/06/19 13:50: Bedside Glucose (Misc Panel) 131H 04/06/19 16:38: Bedside Glucose (Misc Panel) 116H 04/06/19 17:40: Bedside Glucose (Misc Panel) 120H 04/06/19 20:26: Bedside Glucose (Misc Panel) 115H 04/07/19 04:58: Immature Granulocyte % (Auto) 1.6, White Blood Count 9.6, Red Blood Count 2.64L, Hemoglobin 7.6#L, Hematocrit 25.5L, Mean Corpuscular Volume 96.6H, Mean Corpuscular Hemoglobin 28.8, Mean Corpuscular Hemoglobin Concent 29.8L, Red Cell Distribution Width 20.6H, Platelet Count 158, Neutrophils (%) (Auto) 65.5, Lymphocytes (%) (Auto) 15.1L, Monocytes (%) (Auto) 13.4H, Eosinophils (%) (Auto) 3.6H, Basophils (%) (Auto) 0.8, Neutrophils # (Auto) 6.3, Lymphocytes # (Auto) 1.5, Monocytes # (Auto) 1.3H, Eosinophils # (Auto) 0.4, Basophils # (Auto) 0.1, Nucleated Red Blood Cells % (auto) 0.0, Anion Gap 7L, Glomerular Filtration Rate 11.5L, Blood Urea Nitrogen 38H, Creatinine 4.08H, Sodium Level 140, Potassium Level 4.5, Chloride Level 104, Carbon Dioxide Level 29, Calcium Level 6.9L CBC/BMP Laboratory Tests 04/07/19 04:58 Red Blood Count 2.64 L, Mean Corpuscular Volume 96.6 H, Mean Corpuscular Hemoglobin 28.8, Mean Corpuscular Hemoglobin Concent 29.8 L, Red Cell Distribution Width 20.6 H, Neutrophils (%) (Auto) 65.5, Lymphocytes (%) (Auto) 15.1 L, Monocytes (%) (Auto) 13.4 H, Eosinophils (%) (Auto) 3.6 H, Basophils (%) (Auto) 0.8, Neutrophils # (Auto) 6.3, Lymphocytes # (Auto) 1.5, Monocytes # (A uto) 1.3 H, Eosinophils # (Auto) 0.4, Basophils # (Auto) 0.1, Calcium Level 6.9 L SHAGGY MASON MD April 07, 2019 09:53
[2019-04-07] MEDS: **VANCO AFTER HD** MISC XX SCH (15:05)
--- NOTE | 2019-04-07 15:13 | IPNPDOC ---
Text Note Date of Service The patient was seen on 04/07/19. NOTE Nephrology Service: Subjective: Patient seen and examined at bedside. Was awake and doing some coloring on paper. Mentating appropriately. Is status-post guilotine amputation of L foot post-operative day #[address] Estrella on 04/02/19 and now status-post L BKA postoperative day #1 today. Pain is well controlled. Is afebrile and hemodynamically stable today, but Hgb a bit low at 7.6 today likely secondary to surgery yesterday. Blood pressures have been stable. Denies fevers, chills, chest pain, SOB, nausea, vomiting, abdominal pain, diarrhea, constipation. Appears to have had dialysis without any fluid removal yesterday. Previously, dialyzed on 04/04/19 with 126 mL removed. Objective: Vitals: T: 97.7 BP: 106/51 RR: 18 P: 65 O2 Saturation: 95% on 2 liters NC Weight: 85.2 kg yesterday and 81.5 kg today. Intake: 890 ml Output: 150 mL Balance: (+) 740 ml Urine Total: 0 mL BMs: 3 General: AAO x 3. Adult obese female lying up comfortably in bed in NAD. Speaks very softly. Pleasant and cooperative. Answering questions appropriately. Mentating well today. HEENT: Head: normocephalic, atraumatic. Neck: Supple. Respiratory: Clear to auscultation bilaterally with no wheezes, rales, or rhonchi. Cardiovascular: Normal S1S2, regular rate and rhythm, with no murmurs, rubs or gallops. Abdomen: Soft, distended, ascites present, nontender. Extremities: Dressing on L leg status-post L BKA. L leg dressing appears clean, dry, intact without any stains of drainage. (+)1 pitting edema of RLE. Vascular: LUE fistula is present. Musculoskeletal: Moves all 4 extremities. Neurological: Mentating appropriately. No focal neurologic deficits on inspection. Laboratory data: CBC: WBC 9.6, Hgb 7.6, Platelets 158. BMP: Na 140, K 4.5, BUN 38, Cr 4.08, CO2 29, glucose 87, Ca 6.9. Current Inpatient Medications: Vancomycin 750 mg IV HD Zosyn 2.25 mg/dextrose IV HD Venofer (Iron) 100 mg IV HD Ropinirole 1 mg PO QHS Aranesp (Darbepoetin Yordan) 100 mcg HD IV Metoprolol succinate 25 mg PO BID Veltassa (Patiromer) 8.4 gm as directed PRN PO missing dialysis No other change in the medications today as compared with yesterday. Assessment/Plan: 1. End-stage renal disease on hemodialysis on Tuesday, Tuesday, Tuesday schedule: Patient received dialysis last it seems yesterday with 0 mL out. BPs are stable and patient is hemodynamically stable at this point. However, Hgb at bit low at 7.6 today. May need transfusion in the near future. Her electrolytes are acceptable and her fistula is in good use. On veltassa for hyperkalemia PRN. Continue to monitor Intake and Output as well as BMP/electrolytes. Next dialysis likely Tuesday. 2. Hypertension: BPs stable today. Continue metoprolol with hold parameters in place due to past episodes of hypotension. Will continue to monitor. 3. Recurrent ascites status post paracentesis x3 on this admission: Had par acentesis 2 days ago with 8.3 liters of yellow fluid drained. Albumin was also given after that paracentesis. Paracentesis only performed 1-2 times per month in outpatient setting. Plavix does need to be held for several days prior to each tap and she does have a history of coronary artery disease. 4. Diastolic congestive heart failure with exacerbation: According to most recent echocardiogram, patient has grade 1 diastolic dysfunction. Has hx of chronic fluid overload secondary to noncompliance in the outpatient office. Patient also noncompliant with her fluid restrictions. Patient also has hx of recurrent ascites. Have to be cautious with removal of fluid during dialysis secondary to patient's hx of recent soft blood pressures. Patient's volume status is stable and acceptable today. 5. Anemia secondary to end-stage renal disease, iron deficiency and chronic inflammation: Hemoglobin is 7.6 (L). Continue Aranesp and Venofer 100 mg HD IV. Continue to monitor CBC. Likely needs blood transfusion soon. 6. Left foot abscess and Charcot foot status-post guilotine amputation of L foot post-operative day #[address] Estrella on 04/02/19 vascular surgery and L BKA postoperative day #1 today. Is doing well postoperatively and pain is well controlled at this time. Mentating appropriately. Will need PT/rehab at some point. Continues on renally dosed antibiotics managed as per the primary team. My preceptor for this patient encounter was Dr. Maia Grullon, and was physically present in the building during the encounter and was fully available. As needed, all aspects of the patient interview, examination, medical decision making process, and medical care plan development were reviewed and approved by the preceptor. Preceptor is aware and concurs with the plan as stated in the body of this note and will attest to such by his/her cosignature. A-FIB/CHADSVASC A-FIB History Current/History of A-Fib/PAF?: No Current Oral Anticoagulant The: No VS,Fishbone, I+O VS, Fishbone, I+O Laboratory Tests 04/07/19 04:58 Red Blood Count 2.64 L, Mean Corpuscular Volume 96.6 H, Mean Corpuscular Hemoglobin 28.8, Mean Corpuscular Hemoglobin Concent 29.8 L, Red Cell Distribution Width 20.6 H, Neutrophils (%) (Auto) 65.5, Lymphocytes (%) (Auto) 1 5.1 L, Monocytes (%) (Auto) 13.4 H, Eosinophils (%) (Auto) 3.6 H, Basophils (%) (Auto) 0.8, Neutrophils # (Auto) 6.3, Lymphocytes # (Auto) 1.5, Monocytes # (Auto) 1.3 H, Eosinophils # (Auto) 0.4, Basophils # (Auto) 0.1, Calcium Level 6.9 L Vital Signs Date Time Temp Pulse Resp B/P (MAP) Pulse Ox O2 Delivery O2 Flow Rate FiO2 04/07/19 14:21 18 91 0.5 04/07/19 12:00 99.2 68 122/58 (79) 04/07/19 10:42 Nasal Cannula I&O- Last 24 Hours up to 6 AM 04/07/19 06:00 Intake Total 530 ml Output Total 150 ml Balance 380 ml JENISE LUCERO DO April 07, 2019 15:13
[2019-04-07] MEDS: rOPINIRole 1MG TAB PO SCH (21:32)
[2019-04-07] MEDS: SIMVASTATIN 20 MG TAB PO SCH (21:34)
[2019-04-08] VITALS (13 sets, daily range): BP systolic 106–128; BP diastolic 56–67; O2SAT 85–99
[2019-04-08] MEDS: LEVOTHYROXINE 125MCG TABLET (0.125MG) PO SCH (05:22)
[2019-04-08] MEDS: MORPHINE 4 MG/ML 1ML VIAL/SYRINGE (J2270) IV PRN ×2 (05:26→14:06)
[2019-04-08 06:23] LABS: BASO # 0.1 10^3/uL (0.0-0.2); BASO % 0.4 % (0.0-1.0); EOS # 0.3 10^3/uL (0.0-0.50); EOS % 2.4 % (0.0-3.0); HEMATOCRIT 22.8 % (36.0-47.0); LYMPH # 1.1 10^3/uL (1.5-4.5); LYMPH % 9.3 % (24.0-44.0); MEAN CORPUSCULAR HEMOGLOBIN 28.6 pg (27.0-33.0); MEAN CORPUSCULAR HGB CONC 29.8 g/dl (32.0-36.5); MEAN CORPUSCULAR VOLUME 95.8 fl (80.0-96.0); MONO # 1.3 10^3/uL (0.0-0.8); MONO % 10.7 % (0.0-5.0); NEUTROPHILS # 9.3 10^3/uL (1.8-7.7); NEUTROPHILS % 76.4 % (36.0-66.0); PLATELET COUNT, AUTOMATED 158 10^3/uL (150-450); RED BLOOD COUNT 2.38 10^6/uL (4.00-5.40); WHITE BLOOD COUNT 12.2 10^3/uL (4.0-10.0)
[2019-04-08 06:30] LABS: HEMOGLOBIN 6.8 g/dl (12.0-15.5)
[2019-04-08 06:38] LABS: ALBUMIN 1.3 GM/DL (3.2-5.2); BILIRUBIN,TOTAL 0.4 MG/DL (0.2-1.0); CALCIUM LEVEL 6.5 MG/DL (8.8-10.2); CREATININE FOR GFR 5.2 MG/DL (0.55-1.30); GLOMERULAR FILTRATION RATE 8.7 (>39); POTASSIUM SERUM 4.7 MEQ/L (3.5-5.1); TOTAL PROTEIN 5.3 GM/DL (6.4-8.2); VANCOMYCIN RANDOM 20.1 UG/ML
--- NOTE | 2019-04-08 07:37 | IPN ---
DATE: 04/06/2019 SUBJECTIVE: Patient is seen this morning in the hemodialysis unit receiving her dialysis treatment. She is scheduled for the operating room (OR) later today for a left below the knee amputation. Her blood pressures were soft on dialysis and no fluid was removed and heparin was held with her treatment today. She has no new complaints. VITAL SIGNS: Temperature 97.3, pulse 80, respiratory rate 19, blood pressure 135/66, saturating 98% on 2 liters nasal cannula. Intake yesterday was 2.4 liters. Dialysis today removed nothing. Weight on the bed scale is 85.2 kg. General: Patient is seen in the hemodialysis unit receiving her treatment, drowsy but easily arousable, in no distress, oriented. Extraocular muscles intact. Tongue is moist. Neck veins do not appear elevated. Cardiac: S1, S2. 1+ edema in the peripheries. Lungs Clear to auscultation bilaterally. No crackles or rales. The abdomen is soft and nontender. The is ascitic fluid in less as in comparison to previous days. The right upper extremity fistula is presently in use. The left stump wound is in dressings and there are some chronic venous stasis changes on the right lower extremity as well. LABS: White count 7.9, hemoglobin 9.6, platelets 165. Sodium 137, potassium 4.9. Random vancomycin today 19. IMAGING: Paracentesis yesterday removed 4.7 liters of fluid. INPATIENT MEDICATIONS: Reviewed by myself. She continues on renally dosed vancomycin and Zosyn. The remainder of her medications are unchanged from prior. PROBLEMS: 1. End-stage renal disease on hemodialysis on Tuesday, Tuesday, Tuesday schedule. Patient's blood pressures have been soft on hemodialysis all week. We have stopped all of her antihypertensives. We were unable to remove any fluid with dialysis today. She did have a paracentesis done yesterday with 4.7 liters of fluid removed, which may also be a reason why her blood pressures are borderline. Next dialysis will be on Tuesday. 2. Hypertension. On this admission, actually most of her blood pressures have been soft. There are holding parameters written for the metoprolol and her other antihypertensives have been discontinued. 3. Anemia related to chronic renal failure, iron deficiency and chronic inflammation. She received 1 unit of packed red blood cells on this admission. Hemoglobin today is improving at 9.6 and she continues on Aranesp. 4. Diastolic congestive heart failure. She had a paracentesis yesterday. Her volume status is actually fairly reasonable. On her echocardiogram a few days ago she had a normal estimated central venous pressure. Continue with fluid removal as tolerated by hemodynamics on hemodialysis. 5. 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 Follow by vascular surgery. Has been afebrile. No leukocytosis. Continues on renally dosed broad spectrum antibiotics.
[2019-04-08] MEDS: HEPARIN SOD (PORCINE) 5000 UNITS/ML VIAL SC SCH ×2 (09:00→21:28)
[2019-04-08] MEDS: METOPROLOL SUCC *XL* 25MG TAB (TopROL *XL*) PO SCH ×2 (09:00→21:27)
[2019-04-08] MEDS: CLOPIDOGREL 75 MG TAB PO SCH (09:00)
--- NOTE | 2019-04-08 09:49 | IPNPDOC ---
Subjective Date Seen The patient was seen on 04/08/19. Subjective Chief Complaint/HPI Patient is still complaining of some pain medication wears off, as per patient General: Denies: ROS Unobtainable, Chills, Night Sweats, Fatigue, Malaise, Normal Appetite, Other Symptoms Constitutional: Denies: Chills, Fever, Malaise, Night Sweats, Weakness, Fatigue, Weight Loss, Lethargy, Other Eyes: Denies: Pain, Vision change, Conjunctivae inflammation, Eyelid inflammation, Redness, Other ENT: Denies: Head Aches, Ear Pain, Dysphagia, Sinus Congestion, Post Nasal Drip, Sore Throat, Epistaxis, Other Symptoms Skin: Denies: Rash, Lesions, Jaundice, Bruising, Itching, Dry, Breakdown, Nail Changes, Other Pulmonary: Denies: Dyspnea, Cough, Pleuritic Chest Pain, Other Symptoms Cardiovascular: Denies: Chest Pain, Palpitations, Orthopnea, Paroxysmal Noc. Dyspnea, Edema, Lt Headedness, Other Symptoms Gastrointestinal: Denies: Nausea, Vomiting, Abdominal Pain, Diarrhea, Constipation, Melena, Hematochezia, Other Symptoms Hematologic: Denies: Bruising, Bleeding Excessively, Petecchia, Purpura, Enlarged Lymph Nodes, Other Hematologic Endocrine: Denies: Polydipsia, Polyphagia, Polyuria, Heat Intolerance, Cold Intolerance, Other Endocrine Sx Musculoskeletal: Denies: Neck Pain, Back Pain, Shoulder Pain, Arm Pain, Hand Pain, Leg Pain, Foot Pain, Joint Pain, Muscle Pain, Spasms, Other Symptoms Neurological: Denies: Weakness, Numbness, Incoordination, Change in speech, Confusion, Seizures, Other Symptoms Psych: Denies: Mood Normal, Anxiety, Depression, Memory Issues, Thoughts of Self Harm, Anger, Thoughts of Harming Other, Other Psych Objective Physical Examination General Exam: Positive: Alert, Cooperative, No Acute Distress ENT Exam: Positive: Atraumatic, Mucous membr. moist/pink Chest Exam: Positive: Diminished Heart Exam: Positive: Rate Normal, Normal S1, Normal S2 Abdomen Exam: Positive: Soft, Other (distended, positive fluid wave); Negative: Tenderness Extremity Exam: Positive: Other (status post left lower extremity BKA dressing in place); Negative: Tenderness Skin Exam: Positive: Other skin issue (left foot noted to be wrapped in surgical dressing.) Psych Exam: Positive: Oriented x 3 A-FIB/CHADSVASC A-FIB History Current/History of A-Fib/PAF?: No Assessment /Plan Problems (1) Cellulitis of foot Status: Acute Problem Text: 68-year-old female admitted to [facility] 03/21/19 related to increased redness and bloody weeping from her left foot ulcer at the heel, which she has had since August [address] Baeza. There was also a new ulcer on the medial malleolus that is growing proximal to the old ulcer. Per the patient, new ulcer has evolved over the past 1-2 weeks, and was also assessed by Dr. Baeza when both wounds were debrided. Vascular surgery consulted 03/27/19 for further evaluation of left foot wound. The patient is status post left foot debridement and amputation second and third toes as per Dr. Estrella 03/27/19. The patient is S/P LLE angiogram 03/29/[address] Estrella, no intervention. S/P guilotine amputation Left foot as per Dr Estrella 04/02/19. POD1. Plan is for BKA Tue/ this week pending LLE cellulitis. Patient had a paracentesis done yesterday and did receive a supplementation with albumin status-post guilotine amputation of L foot post-operative day #[address] Estrella on 04/02/19. Is status-post 1 unit PRBCs yesterday. Is afebrile and hemodynamically stable today. Blood pressures have improved since yesterday. Had paracentesis today with 4.7 liters of drained. Will be going for L BKA procedure tomorrow with Dr. Estrella. Postoperative pain better controlled today. Denies fevers, chills, chest pain, SOB, nausea, vomiting, abdominal pain, diarrhea, constipation. Was last dialyzed on 04/04/19 with 126 mL out. Status post below-knee amputation of left foot by Dr. Estrella Postop she developed episode of respiratory distress but was reversed with Narcan Patient has been transferred to PCU, which is being monitored closely and also pain management with morphine and Percocet has been started Patient is alert, oriented 3, in no apparent distress. We will continue the present care. Further, as per surgical recommendations Patient is still complaining of pain, will adjust the dosage so she can get when necessary dose every 4-6 hours Patient also was found to have a hemoglobin of 6.8 today, we'll transfuse 1 unit of PRBC today, posttransfusion CBC has been ordered Further, as per vascular surgery Plan/VTE VTE Prophylaxis Ordered?: Yes VS, I&O, 24H, Fishbone Vital Signs/I&O Vital Signs Date Time Temp Pulse Resp B/P (MAP) Pulse Ox O2 Delivery O2 Flow Rate FiO2 04/08/19 08:00 98.4 82 20 115/60 (78) 92 1.0 04/08/19 04:00 Nasal Cannula I&O- Last 24 Hours up to 6 AM 04/08/19 06:00 Intake Total 1340 ml Output Total 0 ml Balance 1340 ml Laboratory Data 24H LABS Laboratory Tests 2 04/07/19 11:32: Bedside Glucose (Misc Panel) 157H 04/07/19 15:53: Random Vancomycin Level 19.9 04/07/19 17:00: Bedside Glucose (Misc Panel) 230H 04/07/19 20:50: Bedside Glucose (Misc Panel) 206H 04/08/19 05:36: Immature Granulocyte % (Auto) 0.8, White Blood Count 12.2H, Red Blood Count 2.38L, Hemoglobin 6.8*L, Hematocrit 22.8L, Mean Corpuscular Volume 95.8, Mean Corpuscular Hemoglobin 28.6, Mean Corpuscular Hemoglobin Concent 29.8L, Red Cell Distribution Width 20.6H, Platelet Count 158, Neutrophils (%) (Auto) 76.4H, Lymphocytes (%) (Auto) 9.3L, Monocytes (%) (Auto) 10.7H, Eosinophils (%) (Auto) 2.4, Basophils (%) (Auto) 0.4, Neutrophils # (Auto) 9.3H, Lymphocytes # (Auto) 1.1L, Monocytes # (Auto) 1.3H, Eosinophils # (Auto) 0.3, Basophils # (Auto) 0.1, Nucleated Red Blood Cells % (auto) 0.0, Anion Gap 9, Glomerular Filtration Rate 8.7L, Blood Urea Nitrogen 52H, Creatinine 5.20H, Sodium Level 138, Potassium Level 4.7, Chloride Level 104, Carbon Dioxide Level 25, Calcium Level 6.5L, Aspartate Amino Transf (AST/SGOT) 27, Alanine Aminotransferase (ALT/SGPT) 20, Alkaline Phosphatase 310H, Total Bilirubin 0.4, Total Protein 5.3L, Albumin 1.3L, Albumin/Globulin Ratio 0.33L, Random Vancomycin Level 20.1 CBC/BMP Laboratory Tests 04/08/19 05:36 Red Blood Count 2.38 L, Mean Corpuscular Volume 95.8, Mean Corpuscular Hemoglobin 28.6, Mean Corpuscular Hemoglobin Concent 29.8 L, Red Cell Distribution Width 20.6 H, Neutrophils (%) (Auto) 76.4 H, Lymphocytes (%) (Auto) 9.3 L, Monocytes (%) (Auto) 10.7 H, Eosinophils (%) (Auto) 2.4, Basophils (%) (Auto) 0.4, Neutrophils # (Auto) 9.3 H, Lymphocytes # (Auto) 1.1 L, Monocytes # (Auto) 1.3 H, Eosinophils # (Auto) 0.3, Basophils # (Auto) 0.1, Calcium Level 6.5 L, Aspartate Amino Transf (AST/SGOT) 27, Alanine Aminotransferase (ALT/SGPT) 20, Alkaline Phosphatase 310 H, Total Bilirubin 0.4, Total Protein 5.3 L, Albumin 1.3 L SHAGGY MASON MD April 08, 2019 09:49
[2019-04-08] MEDS: HumaLOG INSULIN (NovoLOG) PER UNIT SC SCH ×4 (09:54→21:00)
[2019-04-08] MEDS: GABAPENTIN 300 MG CAP PO SCH ×2 (09:54→21:26)
[2019-04-08] MEDS: LEVEMIR (INSULIN DETEMIR) 1 UNITS/0.01ML SC SCH ×2 (09:54→21:29)
[2019-04-08] MEDS: PANTOPRAZOLE 40MG TAB (PROTONIX) PO SCH (09:54)
[2019-04-08] MEDS: DULoxetine 30 MG CAP (CYMBALTA) PO SCH (09:54)
[2019-04-08] MEDS: CALCIUM CARBONATE 500 MG CHEW U/D PO SCH ×3 (09:56→18:16)
[2019-04-08] MEDS: EUCERIN 120GM CREAM TOP SCH ×2 (09:56→21:30)
[2019-04-08] MEDS: PERCOCET 5MG/325MG TAB PO PRN (10:08)
[2019-04-08] MEDS: PIPERACILLIN/TAZOBACTAM SOD 2.25 GM in D5W MINI-BAG PLUS 50 ML IV SCH ×2 (11:27→22:31)
[2019-04-08 13:54] LABS: CLOSTRIDIUM DIFFICILE PCR NEGATIVE (NEGATIVE)
--- NOTE | 2019-04-08 14:35 | IPN ---
DATE: 04/08/2019 Mrs. Hernandez is seen this morning on her bedside. She is not feeling well and reports feeling weak. She underwent a left [id number] amputation last week. She denies any nausea or vomiting. PHYSICAL EXAMINATION: Temperature is 98.0 degrees Fahrenheit, heart rate 80 per minute and respiratory rate 18 per minute. Blood pressure 126/60 mmHg and oxygen saturation 95%. Head is atraumatic. Neck is supple and JVD is moderately elevated. She has no oral thrush or ulcers. Heart sounds are regular and lungs with slightly diminished breath sounds at bases. Abdomen soft and nontender. Large amount of ascites is present. Extremities have no cyanosis or clubbing. She has left [id number] amputation. There is at least 2+ edema on the right leg. Neurologically she is awake, alert and at her baseline mentation. Today's labs show WBC count 12.2, hemoglobin 6.8 and hematocrit 22.8. Platelets 158. Sodium 138, potassium 4.7, CO2 25, BUN 52 and creatinine 5.20. PROBLEMS: 1. End-stage renal disease. The patient is regularly dialyzed on Tuesday, Tuesday and Tuesday schedule. She will be dialyzed tomorrow. 2. Anemia. She has what seems to be acute blood loss anemia. The patient will require transfusion and I would recommend to transfuse 1 unit of packed RBCs today and then we will consider to transfuse two more units with the next hemodialysis tomorrow. 3. Congestive heart failure. Volume status remains somewhat decompensated. We were unable to remove any fluid during last dialysis on Tuesday due to low blood pressure. We will plan on trying to remove some fluid tomorrow as tolerated. 4. Cirrhosis of liver with ascites. The patient has recurrent ascites and requires weekly paracentesis.
[2019-04-08] MEDS: **VANCO AFTER HD** MISC XX SCH (15:50)
[2019-04-08] MEDS: SIMVASTATIN 20 MG TAB PO SCH (21:25)
[2019-04-08] MEDS: rOPINIRole 1MG TAB PO SCH (21:25)
[2019-04-08] MEDS: oxyCODONE 10 MG CR TAB PO SCH (21:26)
[2019-04-09] VITALS: BP 118/63; O2SAT 99
[2019-04-09 04:00] VITALS: BP 124/57; O2SAT 98
[2019-04-09 04:09] LABS: BASO # 0.1 10^3/uL (0.0-0.2); BASO % 0.2 % (0.0-1.0); EOS # 0.3 10^3/uL (0.0-0.50); EOS % 1.4 % (0.0-3.0); HEMATOCRIT 26.1 % (36.0-47.0); HEMOGLOBIN 7.9 g/dl (12.0-15.5); LYMPH # 1.6 10^3/uL (1.5-4.5); LYMPH % 7.5 % (24.0-44.0); MEAN CORPUSCULAR HGB CONC 30.3 g/dl (32.0-36.5); MONO # 1.7 10^3/uL (0.0-0.8); MONO % 8.4 % (0.0-5.0); NEUTROPHILS % 81.8 % (36.0-66.0); PLATELET COUNT, AUTOMATED 168 10^3/uL (150-450); RED BLOOD COUNT 2.72 10^6/uL (4.00-5.40); WHITE BLOOD COUNT 20.8 10^3/uL (4.0-10.0)
[2019-04-09 04:30] LABS: CALCIUM LEVEL 6.9 MG/DL (8.8-10.2); CREATININE FOR GFR 6.18 MG/DL (0.55-1.30); GLOMERULAR FILTRATION RATE 7.1 (>39); POTASSIUM SERUM 4.9 MEQ/L (3.5-5.1); VANCOMYCIN RANDOM 18.8 UG/ML
[2019-04-09] MEDS: LEVOTHYROXINE 125MCG TABLET (0.125MG) PO SCH (05:46)
[2019-04-09] MEDS: MORPHINE 4 MG/ML 1ML VIAL/SYRINGE (J2270) IV PRN (05:51)
[2019-04-09 07:00] VITALS: O2SAT 95
[2019-04-09] MEDS: PANTOPRAZOLE 40MG TAB (PROTONIX) PO SCH (07:51)
[2019-04-09] MEDS: CLOPIDOGREL 75 MG TAB PO SCH (07:51)
[2019-04-09] MEDS: GABAPENTIN 300 MG CAP PO SCH ×2 (07:52→20:30)
[2019-04-09] MEDS: DULoxetine 30 MG CAP (CYMBALTA) PO SCH (07:52)
[2019-04-09] MEDS: METOPROLOL SUCC *XL* 25MG TAB (TopROL *XL*) PO SCH ×2 (07:52→20:31)
[2019-04-09] MEDS: CALCIUM CARBONATE 500 MG CHEW U/D PO SCH ×3 (07:53→17:12)
[2019-04-09] MEDS: HEPARIN SOD (PORCINE) 5000 UNITS/ML VIAL SC SCH ×2 (07:53→20:30)
[2019-04-09] MEDS: LEVEMIR (INSULIN DETEMIR) 1 UNITS/0.01ML SC SCH ×2 (07:54→20:32)
[2019-04-09] MEDS: HumaLOG INSULIN (NovoLOG) PER UNIT SC SCH ×5 (07:55→20:32)
[2019-04-09 08:00] VITALS: BP 120/65; O2SAT 98
[2019-04-09] MEDS ORDERED: HEPARIN 1,000 UNITS/ML 10ML VIAL (FOR RADIOLOGY& DIALYSIS ONLY) IV ONE (11:00)
[2019-04-09] MEDS ORDERED: LIDOCAINE 1% SDV 5 ML VIAL SQ ONE (11:00)
--- NOTE | 2019-04-09 12:22 | IPNPDOC ---
Subjective Date Seen The patient was seen on 04/09/19. Subjective Chief Complaint/HPI Patient much better. No more pain and is under well control with current regimen General: Denies: ROS Unobtainable, Chills, Night Sweats, Fatigue, Malaise, Normal Appetite, Other Symptoms Constitutional: Denies: Chills, Fever, Malaise, Night Sweats, Weakness, Fatigue, Weight Loss, Lethargy, Other Eyes: Denies: Pain, Vision change, Conjunctivae inflammation, Eyelid inflammation, Redness, Other ENT: Denies: Head Aches, Ear Pain, Dysphagia, Sinus Congestion, Post Nasal Drip, Sore Throat, Epistaxis, Other Symptoms Skin: Denies: Rash, Lesions, Jaundice, Bruising, Itching, Dry, Breakdown, Nail Changes, Other Pulmonary: Denies: Dyspnea, Cough, Pleuritic Chest Pain, Other Symptoms Cardiovascular: Denies: Chest Pain, Palpitations, Orthopnea, Paroxysmal Noc. Dyspnea, Edema, Lt Headedness, Other Symptoms Gastrointestinal: Denies: Nausea, Vomiting, Abdominal Pain, Diarrhea, Constipation, Melena, Hematochezia, Other Symptoms Genitourinary: Denies: Dysuria, Frequency, Incontinence, Hematuria, Retention, Other Symptoms Hematologic: Denies: Bruising, Bleeding Excessively, Petecchia, Purpura, Enlarged Lymph Nodes, Other Hematologic Endocrine: Denies: Polydipsia, Polyphagia, Polyuria, Heat Intolerance, Cold Intolerance, Other Endocrine Sx Musculoskeletal: Denies: Neck Pain, Back Pain, Shoulder Pain, Arm Pain, Hand Pain, Leg Pain, Foot Pain, Joint Pain, Muscle Pain, Spasms, Other Symptoms Neurological: Denies: Weakness, Numbness, Incoordination, Change in speech, Confusion, Seizures, Other Symptoms Psych: Denies: Mood Normal, Anxiety, Depression, Memory Issues, Thoughts of Self Harm, Anger, Thoughts of Harming Other, Other Psych Objective Physical Examination General Exam: Positive: Alert, Cooperative, No Acute Distress ENT Exam: Positive: Atraumatic, Mucous membr. moist/pink Chest Exam: Positive: Diminished Heart Exam: Positive: Rate Normal, Normal S1, Normal S2 Abdomen Exam: Positive: Soft, Other (distended, positive fluid wave); Negative: Tenderness Extremity Exam: Positive: Other (status post left lower extremity BKA dressing in place); Negative: Tenderness Skin Exam: Positive: Other skin issue (left foot noted to be wrapped in surg ical dressing.) Psych Exam: Positive: Oriented x 3 A-FIB/CHADSVASC A-FIB History Current/History of A-Fib/PAF?: No Assessment /Plan Problems (1) Cellulitis of foot Status: Acute Problem Text: 68-year-old female admitted to [facility] 03/21/19 related to increased redness and bloody weeping from her left foot ulcer at the heel, which she has had since August [address] Baeza. There was also a new ulcer on the medial malleolus that is growing proximal to the old ulcer. Per the patient, new ulcer has evolved over the past 1-2 weeks, and was also assessed by Dr. Baeza when both wounds were debrided. Vascular surgery consulted 03/27/19 for further evaluation of left foot wound. The patient is status post left foot debridement and amputation second and third toes as per Dr. Estrella 03/27/19. The patient is S/P LLE angiogram 03/29/[address] Estrella, no intervention. S/P guilotine amputation Left foot as per Dr Estrella 04/02/19. POD1. Plan is for BKA Tue/ this week pending LLE cellulitis. Patient had a paracentesis done yesterday and did receive a supplementation with albumin status-post guilotine amputation of L foot post-operative day #[address] Estrella on 04/02/19. Is status-post 1 unit PRBCs yesterday. Is afebrile and hemodynamically stable today. Blood pressures have improved since yesterday. Had paracentesis today with 4.7 liters of drained. Will be going for L BKA procedure tomorrow with Dr. Estrella. Postoperative pain better controlled today. Denies fevers, chills, chest pain, SOB, nausea, vomiting, abdominal pain, diarrhea, constipation. Was last dialyzed on 04/04/19 with 126 mL out. Status post below-knee amputation of left foot by Dr. Estrella Postop she developed episode of respiratory distress but was reversed with Narcan Patient has been transferred to PCU, which is being monitored closely and also pain management with morphine and Percocet has been started Patient is alert, oriented 3, in no apparent distress. We will continue the present care. Further, as per surgical recommendations Patient is still complaining of pain, will adjust the dosage so she can get when necessary dose every 4-6 hours , Hemoglobin is 7.9 today , also WBC, RBC count is 20,000, which most likely is reactive in nature. Would repeat the CBC again in 1 PM today Her pain management is very effective on patient at the present she does not complain of any pain or discomfort at the present time and will continue the same Plan/VTE VTE Prophylaxis Ordered?: Yes VS, I&O, 24H, Fishbone Vital Signs/I&O Vital Signs Date Time Temp Pulse Resp B/P (MAP) Pulse Ox O2 Delivery O2 Flow Rate FiO2 04/09/19 08:00 2.0 04/09/19 08:00 98.8 77 20 120/65 (83) 98 04/09/19 08:00 Nasal Cannula I&O- Last 24 Hours up to 6 AM 04/09/19 05:59 Intake Total 1090 ml Output Total 0 ml Balance 1090 ml Laboratory Data 24H LABS Laboratory Tests 2 04/08/19 17:03: Bedside Glucose (Misc Panel) 185H 04/08/19 21:25: Bedside Glucose (Misc Panel) 193H 04/09/19 03:50: Immature Granulocyte % (Auto) 0.7, White Blood Count 20.8H, Red Blood Count 2.72L, Hemoglobin 7.9L, Hematocrit 26.1L, Mean Corpuscular Volume 96.0, Mean Corpuscular Hemoglobin 29.0, Mean Corpuscular Hemoglobin Concent 30.3L, Red Cell Distribution Width 20.3H, Platelet Count 168, Neutrophils (%) (Auto) 81.8H, Lymphocytes (%) (Auto) 7.5L, Monocytes (%) (Auto) 8.4H, Eosinophils (%) (Auto) 1.4, Basophils (%) (Auto) 0.2, Neutrophils # (Auto) 17.0H, Lymphocytes # (Auto) 1.6, Monocytes # (Auto) 1.7H, Eosinophils # (Auto) 0.3, Basophils # (Auto) 0.1, Nucleated Red Blood Cells % (auto) 0.1H, Anion Gap 9, Glomerular Filtration Rate 7.1L, Blood Urea Nitrogen 61H, Creatinine 6.18H, Sodium Level 138, Potassium Le tonya 4.9, Chloride Level 103, Carbon Dioxide Level 26, Calcium Level 6.9L, Random Vancomycin Level 18.8 CBC/BMP Laboratory Tests 04/09/19 03:50 Red Blood Count 2.72 L, Mean Corpuscular Volume 96.0, Mean Corpuscular Hemoglobin 29.0, Mean Corpuscular Hemoglobin Concent 30.3 L, Red Cell Distribution Width 20.3 H, Neutrophils (%) (Auto) 81.8 H, Lymphocytes (%) (Auto) 7.5 L, Monocytes (%) (Auto) 8.4 H, Eosinophils (%) (Auto) 1.4, Basophils (%) (Auto) 0.2, Neutrophils # (Auto) 17.0 H, Lymphocytes # (Auto) 1.6, Monocytes # (Auto) 1.7 H, Eosinophils # (Auto) 0.3, Basophils # (Auto) 0.1, Calcium Level 6.9 L SHAGGY MASON MD April 09, 2019 12:22
[2019-04-09 12:47] VITALS: BP 116/58
[2019-04-09 13:33] LABS: HEMATOCRIT 32.4 % (36.0-47.0); MEAN CORPUSCULAR HEMOGLOBIN 29.6 pg (27.0-33.0); MEAN CORPUSCULAR HGB CONC 30.9 g/dl (32.0-36.5); MEAN CORPUSCULAR VOLUME 95.9 fl (80.0-96.0); PLATELET COUNT, AUTOMATED 158 10^3/uL (150-450); RED BLOOD COUNT 3.38 10^6/uL (4.00-5.40); WHITE BLOOD COUNT 18.5 10^3/uL (4.0-10.0)
[2019-04-09] MEDS: oxyCODONE 10 MG CR TAB PO SCH ×2 (13:34→20:31)
[2019-04-09] MEDS: PIPERACILLIN/TAZOBACTAM SOD 2.25 GM in D5W MINI-BAG PLUS 50 ML IV SCH ×2 (13:35→22:29)
--- NOTE | 2019-04-09 13:47 | IPNPDOC ---
Date Seen The patient was seen on 04/09/19. Progress Note VASCULAR SURGERY Dr Estrella HPI: 68-year-old female admitted to [facility] 03/21/19 related to increased redness and bloody weeping from her left foot ulcer at the heel, which she has had since August [address] Baeza. There was also a new ulcer on the medial malleolus that is growing proximal to the old ulcer. Per the patient, new ulcer has evolved over the past 1-2 weeks, and was also assessed by Dr. Baeza when both wounds were debrided. Vascular surgery consulted 03/27/19 for further evaluation of left foot wound. Of note, patient does have ESRD, on HD MWF as per Nephrology. Also, due to her cirrhosis, she undergoes paracentesis every 2 weeks, S/P paracentesis 04/05/19. The patient is status post left foot debridement and amputation second and third toes as per Dr. Estrella 03/27/19. The patient is S/P LLE angiogram 03/29/[address] Estrella, no intervention. 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 Pt is just completing HD. Pt states pain is controlled currently. Denies any fevers, chills, weakness, fatigue, Headache, Chest Pain, Shortness of breath, cough, palpitations, abdominal pain, N/V/D or changes in bowel or bladder habits. 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 Left arm AV fistula. Appendectomy. Hysterectomy. Bilateral cataracts. PE: GEN: 68 yo F, appears stated age. No acute distress. Alert and oriented. HEENT: Normocephalic, atraumatic. No facial asymmetry. Moist mucous membranes. CHEST: Regular rate and rhythm, +S1, +S2 LUNGS: Clear to auscultation bilaterally. No wheezes, rales, or rhonchi. Breathing appears symmetric and easy. ABD: Round, distended, nontender. +Bowel sounds throughout. No rebound or guarding. EXT: Right foot bandaged. S/P BKA LLE, dressing is removed. Veronica are intact, minimal amount of bloody sero-sanguinous drainage noted. Skin is pink and good cap refill posterior to mid aspect of stump, anteriorly appears darker in color. Dry dressing applied. NEURO: Alert and oriented x 3. Cranial nerves III-XII are intact. No focal de ficits appreciated. 03/21 blood culture x2. Negative 03/21 left foot WOUND CULTURE Final Organism 1 ENTEROBACTER CLOACAE COMPLEX QUANTITY OF GROWTH HEAVY Organism 2 STAPHYLOCOCCUS AUREUS QUANTITY OF GROWTH HEAVY Organism 3 STAPH.AUREUS METHICILLIN RESIS QUANTITY OF GROWTH HEAVY FULL REPORT IN LAB NOTES (eCW and Medent). 03/23 left foot wound culture Negative MRI left foot Once again there are findings are Charcot foot which appear unchanged compared to the prior study of 09/04/2018. Diffuse subchondral marrow edema is seen in the distal tibia and fibula as well as the tarsal bones, unchanged. No definite acute osteomyelitis. Diffuse edema and probable cellulitis. Large joint effusion at the tibiotalar joint. Complex fluid collection centered between the second and third metatarsals extends into the plantar soft-tissues along the flexor tendons and also extends into the dorsal soft-tissues. There may be internal foci or air and therefore this may represent an abscess. Electronically Signed by Aureliano Rivas MD 03/26/2019 04:22 P TTE 1. Study is of good technical quality. 2. Normal LV size with mild LVH and hyperdynamic LV systolic function. Grade 1 diastolic dysfunction. 3. Aortic sclerosis with trivial stenosis and insufficiency. 4. Degenerative abnormalities of mitral valve with trace mitral insufficiency. 5. Normal central venous pressure and likely normal pulmonary artery pressure. 6. Small non compressive pericardial effusion. 7. Likely ascites in the abdomen. DD: Apolonia White MD 04/03/19 [id number] A&P: 68-year-old female admitted to [facility] 03/21/19 related to increased redness and bloody weeping from her left foot ulcer at the heel, which she has had since August [address] Beaza. There was also a new ulcer on the medial malleolus that is growing proximal to the old ulcer. Per the patient, new ulcer has evolved over the past 1-2 weeks, and was also assessed by Dr. Jan childs when both wounds were debrided. Vascular surgery consulted 03/27/19 for further evaluation of left foot wound. 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 POD3. Continue dry dressing daily. Patient is afebrile. WBC 18.5 Patient remains on IV Vanco/Zosyn ESRD Hemodialysis as per nephrology. CHF. Fluid management as per nephrology. Chronic anemia. venofer as per nephrology. Aranesp as per nephrology. S/P 1 u PRBC today. Hx of Liver Cirrhosis s/p paracentesis on 04/05/19. DVT ppx: heparin sc A-FIB/CHADSVASC A-FIB History Current/History of A-Fib/PAF?: No VS, I&O, 24H, Fishbone Vital Signs/I&O Vital Signs Date Time Temp Pulse Resp B/P (MAP) Pulse Ox O2 Delivery O2 Flow Rate FiO2 04/09/19 13:34 18 04/09/19 08:00 2.0 04/09/19 08:00 98.8 77 120/65 (83) 98 04/09/19 08:00 Nasal Cannula I&O- Last 24 Hours up to 6 AM 04/09/19 06:00 Intake Total 1090 ml Output Total 0 ml Balance 1090 ml Laboratory Data 24H LABS Laboratory Tests 2 04/08/19 17:03: Bedside Glucose (Misc Panel) 185H 04/08/19 21:25: Bedside Glucose (Misc Panel) 193H 04/09/19 03:50: Immature Granulocyte % (Auto) 0.7, White Blood Count 20.8H, Red Blood Count 2.72L, Hemoglobin 7.9L, Hematocrit 26.1L, Mean Corpuscular Volume 96.0, Mean Corpuscular Hemoglobin 29.0, Mean Corpuscular Hemoglobin Concent 30.3L, Red Cell Distribution Width 20.3H, Platelet Count 168, Neutrophils (%) (Auto) 81.8H, Lymphocytes (%) (Auto) 7.5L, Monocytes (%) (Auto) 8.4H, Eosinophils (%) (Auto) 1.4, Basophils (%) (Auto) 0.2, Neutrophils # (Auto) 17.0H, Lymphocytes # (Auto) 1.6, Monocytes # (Auto) 1.7H, Eosinophils # (Auto) 0.3, Basophils # (Auto) 0.1, Nucleated Red Blood Cells % (auto) 0.1H, Anion Gap 9, Glomerular Filtration Rate 7.1L, Blood Urea Nitrogen 61H, Creatinine 6.18H, Sodium Level 138, Potassium Level 4.9, Chloride Level 103, Carbon Dioxide Level 26, Calcium Level 6.9L, Random Vancomycin Level 18.8 04/09/19 13:10: Nucleated Red Blood Cells % (auto) 0.2H 04/09/19 13:11: Bedside Glucose (Misc Panel) 146H CBC/BMP Laboratory Tests 04/09/19 03:50 Red Blood Count 2.72 L, Mean Corpuscular Volume 96.0, Mean Corpuscular Hemoglo bin 29.0, Mean Corpuscular Hemoglobin Concent 30.3 L, Red Cell Distribution Width 20.3 H, Neutrophils (%) (Auto) 81.8 H, Lymphocytes (%) (Auto) 7.5 L, Monocytes (%) (Auto) 8.4 H, Eosinophils (%) (Auto) 1.4, Basophils (%) (Auto) 0.2, Neutrophils # (Auto) 17.0 H, Lymphocytes # (Auto) 1.6, Monocytes # (Auto) 1.7 H, Eosinophils # (Auto) 0.3, Basophils # (Auto) 0.1, Calcium Level 6.9 L 04/09/19 13:10 Red Blood Count 3.38 L, Mean Corpuscular Volume 95.9, Mean Corpuscular Hemoglo bin 29.6, Mean Corpuscular Hemoglobin Concent 30.9 L, Red Cell Distribution Width 20.0 H Trini Vieira April 09, 2019 13:47
[2019-04-09] MEDS: EUCERIN 120GM CREAM TOP SCH ×2 (14:15→20:34)
[2019-04-09] MEDS: VANCOMYCIN HCL 750 MG, VIAL MATE ADAPTER 1 EACH in D5W 250 ML IV SCH (15:10)
[2019-04-09] MEDS: **VANCO AFTER HD** MISC XX SCH (15:15)
[2019-04-09] MEDS: PERCOCET 5MG/325MG TAB PO PRN ×2 (16:22→23:20)
[2019-04-09] MEDS: rOPINIRole 1MG TAB PO SCH (20:30)
[2019-04-09] MEDS: SIMVASTATIN 20 MG TAB PO SCH (20:30)
[2019-04-09 22:00] VITALS: BP 121/58
[2019-04-10] MEDS ORDERED: ONDANSETRON 4 MG TAB (S0181) PO ONE (01:15)
[2019-04-10 03:57] VITALS: O2SAT 98
[2019-04-10] MEDS: LEVOTHYROXINE 125MCG TABLET (0.125MG) PO SCH (05:42)
[2019-04-10] MEDS: PERCOCET 5MG/325MG TAB PO PRN (05:43)
[2019-04-10 06:00] VITALS: BP 140/67
[2019-04-10 06:06] LABS: BASO # 0.1 10^3/uL (0.0-0.2); BASO % 0.4 % (0.0-1.0); EOS # 0.5 10^3/uL (0.0-0.50); EOS % 3.2 % (0.0-3.0); HEMATOCRIT 29.5 % (36.0-47.0); HEMOGLOBIN 9.2 g/dl (12.0-15.5); LYMPH # 1.1 10^3/uL (1.5-4.5); MEAN CORPUSCULAR HEMOGLOBIN 29.1 pg (27.0-33.0); MEAN CORPUSCULAR HGB CONC 31.2 g/dl (32.0-36.5); MEAN CORPUSCULAR VOLUME 93.4 fl (80.0-96.0); MONO # 1.4 10^3/uL (0.0-0.8); MONO % 9.7 % (0.0-5.0); NEUTROPHILS % 77.6 % (36.0-66.0); PLATELET COUNT, AUTOMATED 178 10^3/uL (150-450); RED BLOOD COUNT 3.16 10^6/uL (4.00-5.40); WHITE BLOOD COUNT 14.2 10^3/uL (4.0-10.0)
[2019-04-10 06:32] LABS: ALBUMIN 1.3 GM/DL (3.2-5.2); BILIRUBIN,TOTAL 0.5 MG/DL (0.2-1.0); CALCIUM LEVEL 7.2 MG/DL (8.8-10.2); CREATININE FOR GFR 4.54 MG/DL (0.55-1.30); GLOMERULAR FILTRATION RATE 10.2 (>39); POTASSIUM SERUM 3.9 MEQ/L (3.5-5.1)
--- NOTE | 2019-04-10 07:50 | IPNPDOC ---
Text Note Date of Service The patient was seen on 04/09/19. NOTE Nephrology Service: Subjective: Patient seen and examined in dialysis today. Was lying in bed asleep, but able to be arisen. Mentating appropriately. Is status-post guilotine amputation of L foot post-operative day #[address] Estrella on 04/02/19 and now status-post L BKA postoperative day #3 today. Pain is well controlled. Is afebrile and hemodynamically stable today, but Hgb a bit low at 7.9 today. One unit of PRBCs was transfused yesterday and one unit will be given today. Blood pressures have been stable. Denies fevers, chills, chest pain, SOB, nausea, vomiting, abdominal pain. Previously, dialyzed on 04/06/19 with 0 mL removed. Objective: Vitals: T: 98.8 BP: 120/65 RR: 20 P: 77 O2 Saturation: 98% on 2 liters NC Intake: 1090 ml Output: 0 mL Balance: (+) 1090 ml Urine Total: 0 mL BMs: 2 General: AAO x 3. Adult obese female lying comfortably in dialysis bed in NAD. Speaks very softly and easily arousable. Pleasant and cooperative. Answering questions appropriately. Mentating well. HEENT: Head: normocephalic, atraumatic. Neck: Supple. Respiratory: Clear to auscultation bilaterally with no wheezes, rales, or rhonchi. Cardiovascular: Normal S1S2, regular rate and rhythm, with no murmurs, rubs or gallops. Abdomen: Soft, nontender distended, ascites present, nontender. Extremities: Dressing on L leg status-post L BKA. L leg dressing appears clean, dry, intact without any stains of drainage. (+)1 pitting edema of RLE. Vascular: LUE fistula is present. Musculoskeletal: Moves all 4 extremities. Neurological: Mentating appropriately. No focal neurologic deficits on inspection. Laboratory data: CBC: WBC 20.8, Hgb 7.9, Platelets 168. BMP: Na 140, K 3.9, BUN 61, Cr 6.18, CO2 26, glucose 199, Ca 6.9. Current Inpatient Medications: Vancomycin 750 mg IV HD Zosyn 2.25 mg/dextrose IV HD Venofer (Iron) 100 mg IV HD Ropinirole 1 mg PO QHS Kalpeshp (Darbepoetin Yordan) 100 mcg HD IV Metoprolol succinate 25 mg PO BID Veltassa (Patiromer) 8.4 gm as directed PRN PO missing dialysis No other change in the medications today as compared with yesterday. Assessment/Plan: 1. End-stage renal disease on hemodialysis on Tuesday, Tuesday, Tuesday schedule: Patient receiving dialysis today. BPs are stable and patient is hemodynamically stable at this point. However, Hgb at bit low at 7.9 today. Had 1 PRBC transfused yesterday and will have 1 PRBC transfused today. Order is in. Her electrolytes are acceptable and her fistula is in good use. On veltassa for hyperkalemia PRN. Continue to monitor Intake and Output as well as BMP/electrolytes. Next dialysis Tuesday. 2. Hypertension: BPs stable today. Continue metoprolol with hold parameters in place due to past episodes of hypotension. Will continue to monitor. 3. Recurrent ascites status post paracentesis x3 on this admission: Paracentesis only performed 1-2 times per month in outpatient setting and needs to have albumin transfusion with each paracentesis. Plavix does need to be held for several days prior to each tap and she does have a history of coronary artery disease. 4. Diastolic congestive heart failure with exacerbation: According to most recent echocardiogram, patient has grade 1 diastolic dysfunction. Has hx of chronic fluid overload secondary to noncompliance in the outpatient office. Patient also noncompliant with her fluid restrictions. Patient also has hx of recurrent ascites. Have to be cautious with removal of fluid during dialysis secondary to patient's hx of recent soft blood pressures. Patient's volume status is stable and acceptable today. 5. Anemia secondary to end-stage renal disease, iron deficiency and chronic inflammation: Hemoglobin is 7.9 (L). Continue Aranesp and Venofer 100 mg HD IV. Continue to monitor CBC. Will get 1 PRBC transfused today. 6. Left foot abscess and Charcot foot status-post guilotine amputation of L foot post-operative day #[address] Estrella on 04/02/19 vascular surgery and L BKA po stoperative day #3 today. Is doing well postoperatively and pain is well controlled at this time. Mentating appropriately. Will need PT/rehab. Continues on renally dosed antibiotics managed as per the primary team. My preceptor for this patient encounter was Dr. Maia Grullon, and was physic ally present in the building during the encounter and was fully available. As needed, all aspects of the patient interview, examination, medical decision making process, and medical care plan development were reviewed and approved by the preceptor. Preceptor is aware and concurs with the plan as stated in the body of this note and will attest to such by his/her cosignature. A-FIB/CHADSVASC A-FIB History Current/History of A-Fib/PAF?: No Current Oral Anticoagulant The: No VS,Fishbone, I+O VS, Fishbone, I+O Laboratory Tests 04/09/19 03:50 Red Blood Count 2.72 L, Mean Corpuscular Volume 96.0, Mean Corpuscular Hemoglobin 29.0, Mean Corpuscular Hemoglobin Concent 30.3 L, Red Cell Di stribution Width 20.3 H, Neutrophils (%) (Auto) 81.8 H, Lymphocytes (%) (Auto) 7.5 L, Monocytes (%) (Auto) 8.4 H, Eosinophils (%) (Auto) 1.4, Basophils (%) (Auto) 0.2, Neutrophils # (Auto) 17.0 H, Lymphocytes # (Auto) 1.6, Monocytes # (Auto) 1.7 H, Eosinophils # (Auto) 0.3, Basophils # (Auto) 0.1, Calcium Level 6.9 L 04/09/19 13:10 Red Blood Count 3.38 L, Mean Corpuscular Volume 95.9, Mean Corpuscular Hemoglobin 29.6, Mean Corpuscular Hemoglobin Concent 30.9 L, Red Cell Di stribution Width 20.0 H Vital Signs Date Time Temp Pulse Resp B/P (MAP) Pulse Ox O2 Delivery O2 Flow Rate FiO2 04/09/19 23:20 18 2.0 04/09/19 22:00 98.7 69 121/58 (79) 97 04/09/19 08:00 Nasal Cannula I&O- Last 24 Hours up to 6 AM 04/09/19 06:00 Intake Total 1090 ml Output Total 0 ml Balance 1090 ml JENISE LUCERO DO April 09, 2019 23:36
[2019-04-10] MEDS: CALCIUM CARBONATE 500 MG CHEW U/D PO SCH ×3 (08:04→17:30)
[2019-04-10] MEDS: DULoxetine 30 MG CAP (CYMBALTA) PO SCH (08:04)
[2019-04-10] MEDS: METOPROLOL SUCC *XL* 25MG TAB (TopROL *XL*) PO SCH ×2 (08:04→21:57)
[2019-04-10] MEDS: GABAPENTIN 300 MG CAP PO SCH ×2 (08:04→21:56)
[2019-04-10] MEDS: PANTOPRAZOLE 40MG TAB (PROTONIX) PO SCH (08:04)
[2019-04-10] MEDS: CLOPIDOGREL 75 MG TAB PO SCH (08:04)
[2019-04-10] MEDS: LEVEMIR (INSULIN DETEMIR) 1 UNITS/0.01ML SC SCH ×2 (08:05→21:58)
[2019-04-10] MEDS: oxyCODONE 10 MG CR TAB PO SCH ×2 (08:05→21:56)
[2019-04-10] MEDS: HumaLOG INSULIN (NovoLOG) PER UNIT SC SCH ×4 (08:06→21:00)
[2019-04-10] MEDS: HEPARIN SOD (PORCINE) 5000 UNITS/ML VIAL SC SCH ×2 (08:06→21:55)
[2019-04-10] MEDS: EUCERIN 120GM CREAM TOP SCH ×2 (08:07→21:58)
--- NOTE | 2019-04-10 09:20 | IPNPDOC ---
Date Seen The patient was seen on 04/10/19. Progress Note VASCULAR SURGERY Dr Estrella HPI: 68-year-old female admitted to [facility] 03/21/19 related to increased redness and bloody weeping from her left foot ulcer at the heel, which she has had since August [address] Baeza. There was also a new ulcer on the medial malleolus that is growing proximal to the old ulcer. Per the patient, new ulcer has evolved over the past 1-2 weeks, and was also assessed by Dr. Baeza when both wounds were debrided. Vascular surgery consulted 03/27/19 for further evaluation of left foot wound. The patient is status post left foot debridement and amputation second and third toes as per Dr. Estrella 03/27/19. The patient is S/P LLE angiogram 03/29/[address] Estrella, no intervention. 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 Pt states pain is controlled currently. ESRD with HD MWF as per Nephrology. Also, due to her cirrhosis, she undergoes paracentesis every 2 weeks, S/P paracentesis 04/05/19. Denies any fevers, chills, weakness, fatigue, Headache, Chest Pain, Shortness of breath, cough, palpitations, abdominal pain, N/V/D or changes in bowel or bladder habits. 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 Left arm AV fistula. Appendectomy. Hysterectomy. Bilateral cataracts. PE: GEN: 68 yo F, appears stated age. No acute distress. Alert and oriented. HEENT: Normocephalic, atraumatic. No facial asymmetry. Moist mucous membranes. CHEST: Regular rate and rhythm, +S1, +S2 LUNGS: Clear to auscultation bilaterally. No wheezes, rales, or rhonchi. ABD: Round, distended, nontender. +Bowel sounds throughout. EXT: S/P BKA LLE, dressing is intact. NEURO: Alert and oriented x 3. Cranial nerves III-XII are intact. No focal deficits appreciated. 03/21 blood culture x2. Negative 03/21 left foot WOUND CULTURE Final Organism 1 ENTEROBACTER CLOACAE COMPLEX QUANTITY OF GROWTH HEAVY Organism 2 STAPHYLOCOCCUS AUREUS QUANTITY OF GROWTH HEAVY Organism 3 STAPH.AUREUS METHICILLIN RESIS QUANTITY OF GROWTH HEAVY FULL REPORT IN LAB NOTES (eCW and Medent). 03/23 left foot wound culture Negative MRI left foot Once again there are findings are Charcot foot which appear unchanged compared to the prior study of 09/04/2018. Diffuse subchondral marrow edema is seen in the distal tibia and fibula as well as the tarsal bones, unchanged. No definite acute osteomyelitis. Diffuse edema and probable cellulitis. Large joint effusion at the tibiotalar joint. Complex fluid collection centered between the second and third metatarsals extends into the plantar soft-tissues along the flexor tendons and also extends into the dorsal soft-tissues. There may be internal foci or air and therefore this may represent an abscess. Electronically Signed by Auerliano Rivas MD 03/26/2019 04:22 P TTE 1. Study is of good technical quality. 2. Normal LV size with mild LVH and hyperdynamic LV systolic function. Grade 1 diastolic dysfunction. 3. Aortic sclerosis with trivial stenosis and insufficiency. 4. Degenerative abnormalities of mitral valve with trace mitral insufficiency. 5. Normal central venous pressure and likely normal pulmonary artery pressure. 6. Small non compressive pericardial effusion. 7. Likely ascites in the abdomen. DD: Apolonia White MD 04/03/19 0811 A&P: 68-year-old female admitted to [facility] 03/21/19 related to increased redness and bloody weeping from her left foot ulcer at the heel, which she has had since August [address] Baeza. There was also a new ulcer on the medial malleolus that is growing proximal to the old ulcer. Per the patient, new ulcer has evolved over the past 1-2 weeks, and was also assessed by Dr. Baeza when both wounds were debrided. Vascular surgery consulted 03/27/19 for further evaluation of left foot wound. 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 POD4. Continue dry dressing daily. Patient is afebrile. WBC 14.2, downtrending. Patient remains on IV Vanco/Zosyn ESRD Hemodialysis as per nephrology. CHF. Fluid management as per nephrology. Chronic anemia. venofer as per nephrology. Aranesp as per nephrology. S/P 1 u PRBC 04/09/19 Hgb 9.2 Hx of Liver Cirrhosis s/p paracentesis on 04/05/19. DVT ppx: heparin sc A-FIB/CHADSVASC A-FIB History Current/History of A-Fib/PAF?: No VS, I&O, 24H, Fishbone Vital Signs/I&O Vital Signs Date Time Temp Pulse Resp B/P (MAP) Pulse Ox O2 Delivery O2 Flow Rate FiO2 04/10/19 08:05 16 04/10/19 08:04 80 125/62 04/10/19 06:13 2.0 04/10/19 06:00 98.7 96 04/10/19 03:57 Nasal Cannula I&O- Last 24 Hours up to 6 AM 04/10/19 06:00 Intake Total 2430 ml Output Total 1500 ml Balance 930 ml Laboratory Data 24H LABS Laboratory Tests 2 04/09/19 13:10: Nucleated Red Blood Cells % (auto) 0.2H 04/09/19 13:11: Bedside Glucose (Misc Panel) 146H 04/09/19 16:26: Bedside Glucose (Misc Panel) 196H 04/09/19 20:05: Bedside Glucose (Misc Panel) 197H 04/10/19 05:29: Immature Granulocyte % (Auto) 1.1, White Blood Count 14.2H, Red Blood Count 3.16L, Hemoglobin 9.2L, Hematocrit 29.5L, Mean Corpuscular Volume 93.4, Mean Corpuscular Hemoglobin 29.1, Mean Corpuscular Hemoglobin Concent 31.2L, Red Cell Distribution Width 20.8H, Platelet Count 178, Neutrophils (%) (Auto) 77.6H, Lymphocytes (%) (Auto) 8.0L, Monocytes (%) (Auto) 9.7H, Eosinophils (%) (Auto) 3.2H, Basophils (%) (Auto) 0.4, Neutrophils # (Auto) 11.0H, Lymphocytes # (Auto) 1.1L, Monocytes # (Auto) 1.4H, Eosinophils # (Auto) 0.5, Basophils # (Auto) 0.1, Nucleated Red Blood Cells % (auto) 0.0, Anion Gap 10, Glomerular Filtration Rate 10.2L, Blood Urea Nitrogen 43H, Creatinine 4.54H, Sodium Level 140, Potassium Level 3.9#, Chloride Level 102, Carbon Dioxide Level 28, Calcium Level 7.2L, Aspartate Amino Transf (AST/SGOT) 21, Alanine Aminotransferase (ALT/SGPT) 17, Alkaline Phosphatase 342H, Total Bilirubin 0.5, Total Protein 6.0L, Albumin 1.3 L, Albumin/Globulin Ratio 0.28L CBC/BMP Laboratory Tests 04/09/19 13:10 Red Blood Count 3.38 L, Mean Corpuscular Volume 95.9, Mean Corpuscular Hemoglobin 29.6, Mean Corpuscular Hemoglobin Concent 30.9 L, Red Cell Distribution Width 20.0 H 04/10/19 05:29 Red Blood Count 3.16 L, Mean Corpuscular Volume 93.4, Mean Corpuscular Hemoglobin 29.1, Mean Corpuscular Hemoglobin Concent 31.2 L, Red Cell Distribution Width 20.8 H, Neutrophils (%) (Auto) 77.6 H, Lymphocytes (%) (Auto) 8.0 L, Monocytes (%) (Auto) 9.7 H, Eosinophils (%) (Auto) 3.2 H, Basophils (%) (Auto) 0.4, Neutrophils # (Auto) 11.0 H, Lymphocytes # (Auto) 1.1 L, Monocytes # (Auto) 1.4 H, Eosinophils # (Auto) 0.5, Basophils # (Auto) 0.1, Calcium Level 7.2 L, Aspartate Amino Transf (AST/SGOT) 21, Alanine Aminotransferase (ALT/SGPT) 17, Alkaline Phosphatase 342 H, Total Bilirubin 0.5, Total Protein 6.0 L, Albumin 1.3 L Trini Vieira April 10, 2019 09:20
[2019-04-10] MEDS: PIPERACILLIN/TAZOBACTAM SOD 2.25 GM in D5W MINI-BAG PLUS 50 ML IV SCH ×2 (11:53→22:01)
--- NOTE | 2019-04-10 12:12 | IPNPDOC ---
Subjective Date Seen The patient was seen on 04/10/19. Subjective Chief Complaint/HPI Offers no new complaints General: Denies: ROS Unobtainable, Chills, Night Sweats, Fatigue, Malaise, Normal Appetite, Other Symptoms Constitutional: Denies: Chills, Fever, Malaise, Night Sweats, Weakness, Fatigue, Weight Loss, Lethargy, Other Eyes: Denies: Pain, Vision change, Conjunctivae inflammation, Eyelid inflammation, Redness, Other ENT: Denies: Head Aches, Ear Pain, Dysphagia, Sinus Congestion, Post Nasal Drip, Sore Throat, Epistaxis, Other Symptoms Skin: Denies: Rash, Lesions, Jaundice, Bruising, Itching, Dry, Breakdown, Nail Changes, Other Pulmonary: Denies: Dyspnea, Cough, Pleuritic Chest Pain, Other Symptoms Cardiovascular: Denies: Chest Pain, Palpitations, Orthopnea, Paroxysmal Noc. Dyspnea, Edema, Lt Headedness, Other Symptoms Gastrointestinal: Denies: Nausea, Vomiting, Abdominal Pain, Diarrhea, Constipation, Melena, Hematochezia, Other Symptoms Genitourinary: Denies: Dysuria, Frequency, Incontinence, Hematuria, Retention, Other Symptoms Hematologic: Denies: Bruising, Bleeding Excessively, Petecchia, Purpura, Enlarged Lymph Nodes, Other Hematologic Endocrine: Denies: Polydipsia, Polyphagia, Polyuria, Heat Intolerance, Cold Intolerance, Other Endocrine Sx Musculoskeletal: Denies: Neck Pain, Back Pain, Shoulder Pain, Arm Pain, Hand Pain, Leg Pain, Foot Pain, Joint Pain, Muscle Pain, Spasms, Other Symptoms Neurological: Denies: Weakness, Numbness, Incoordination, Change in speech, Confusion, Seizures, Other Symptoms Psych: Denies: Mood Normal, Anxiety, Depression, Memory Issues, Thoughts of Self Harm, Anger, Thoughts of Harming Other, Other Psych Objective Physical Examination General Exam: Positive: Alert, Cooperative, No Acute Distress ENT Exam: Positive: Atraumatic, Mucous membr. moist/pink Chest Exam: Positive: Diminished Heart Exam: Positive: Rate Normal, Normal S1, Normal S2 Abdomen Exam: Positive: Soft, Other (distended, positive fluid wave); Negative: Tenderness Extremity Exam: Positive: Other (status post left lower extremity BKA dressing in place); Negative: Tenderness Skin Exam: Positive: Other skin issue (left foot noted to be wrapped in surgical dressing.) Psych Exam: Positive: Oriented x 3 A-FIB/CHADSVASC A-FIB History Current/History of A-Fib/PAF?: No Assessment /Plan Problems (1) Cellulitis of foot Status: Acute Problem Text: 68-year-old female admitted to [facility] 03/21/19 related to increased redness and bloody weeping from her left foot ulcer at the heel, which she has had since August [address] Baeza. There was also a new ulcer on the medial malleolus that is growing proximal to the old ulcer. Per the patient, new ulcer has evolved over the past 1-2 weeks, and was also assessed by Dr. Baeza when both wounds were debrided. Vascular surgery consulted 03/27/19 for further evaluation of left foot wound. The patient is status post left foot debridement and amputation second and third toes as per Dr. Estrella 03/27/19. The patient is S/P LLE angiogram 03/29/[address] Estrella, no intervention. S/P guilotine amputation Left foot as per Dr Estrella 04/02/19. POD1. Plan is for BKA Tue/ this week pending LLE cellulitis. Patient had a paracentesis done yesterday and did receive a supplementation with albumin status-post guilotine amputation of L foot post-operative day #[address] Estrella on 04/02/19. Is status-post 1 unit PRBCs yesterday. Is afebrile and hemodynamically stable today. Blood pressures have improved since yesterday. Had paracentesis today with 4.7 liters of drained. Will be going for L BKA procedure tomorrow with Dr. Estrella. Postoperative pain better controlled today. Denies fevers, c hills, chest pain, SOB, nausea, vomiting, abdominal pain, diarrhea, constipation. Was last dialyzed on 04/04/19 with 126 mL out. Status post below-knee amputation of left foot by Dr. Estrella Postop she developed episode of respiratory distress but was reversed with Narcan Patient has been transferred to PCU, which is being monitored closely and also pain management with morphine and Percocet has been started Patient is alert, oriented 3, in no apparent distress. We will continue the present care. Further, as per surgical recommendations Patient is still complaining of pain, will adjust the dosage so she can get when necessary dose every 4-6 hours , Hemoglobin is 7.9 today , also WBC, RBC count is 20,000, which most likely is reactive in nature. Would repeat the CBC again in 1 PM today Her pain management is very effective on patient at the present she does not complain of any pain or discomfort at the present time and will continue the same Was cleared by physical therapy and surgery, then she can be discharged to subacute rehabilitation facility Plan/VTE VTE Prophylaxis Ordered?: Yes VS, I&O, 24H, Hannah Vital Signs/I&O Vital Signs Date Time Temp Pulse Resp B/P (MAP) Pulse Ox O2 Delivery O2 Flow Rate FiO2 04/10/19 10:15 2.0 04/10/19 08:05 16 04/10/19 08:04 80 125/62 04/10/19 06:00 98.7 96 04/10/19 03:57 Nasal Cannula I&O- Last 24 Hours up to 6 AM 04/10/19 06:00 Intake Total 2430 ml Output Total 1500 ml Balance 930 ml Laboratory Data 24H LABS Laboratory Tests 2 04/09/19 13:10: Nucleated Red Blood Cells % (auto) 0.2H 04/09/19 13:11: Bedside Glucose (Misc Panel) 146H 04/09/19 16:26: Bedside Glucose (Misc Panel) 196H 04/09/19 20:05: Bedside Glucose (Misc Panel) 197H 04/10/19 05:29: Immature Granulocyte % (Auto) 1.1, White Blood Count 14.2H, Red Blood Count 3.16L, Hemoglobin 9.2L, Hematocrit 29.5L, Mean Corpuscular Volume 93.4, Mean Corpuscular Hemoglobin 29.1, Mean Corpuscular Hemoglobin Concent 31.2L, Red Cell Distribution Width 20.8H, Platelet Count 178, Neutrophils (%) (Auto) 77.6H, Lymphocytes (%) (Auto) 8.0L, Monocytes (%) (Auto) 9.7H, Eosinophils (%) (Auto) 3.2H, Basophils (%) (Auto) 0.4, Neutrophils # (Auto) 11.0H, Lymphocytes # (Auto) 1.1L, Monocytes # (Auto) 1.4H, Eosinophils # (Auto) 0.5, Basophils # (Auto) 0.1, Nucleated Red Blood Cells % (auto) 0.0, Anion Gap 10, Glomerular Filtration Rate 10.2L, Blood Urea Nitrogen 43H, Creatinine 4.54H, Sodium Level 140, Potassium Level 3.9#, Chloride Level 102, Carbon Dioxide Level 28, Calcium Level 7.2L, Aspartate Amino Transf (AST/SGOT) 21, Alanine Aminotransferase (ALT/SGPT) 17, Al kaline Phosphatase 342H, Total Bilirubin 0.5, Total Protein 6.0L, Albumin 1.3L, Albumin/Globulin Ratio 0.28L 04/10/19 11:28: Bedside Glucose (Misc Panel) 165H CBC/BMP Laboratory Tests 04/09/19 13:10 Red Blood Count 3.38 L, Mean Corpuscular Volume 95.9, Mean Corpuscular Hemoglobin 29.6, Mean Corpuscular Hemoglobin Concent 30.9 L, Red Cell Distribution Width 20.0 H 04/10/19 05:29 Red Blood Count 3.16 L, Mean Corpuscular Volume 93.4, Mean Corpuscular Hemoglobin 29.1, Mean Corpuscular Hemoglobin Concent 31.2 L, Red Cell Distribution Width 20.8 H, Neutrophils (%) (Auto) 77.6 H, Lymphocytes (%) (Auto) 8.0 L, Monocytes (%) (Auto) 9.7 H, Eosinophils (%) (Auto) 3.2 H, Basophils (%) (Auto) 0.4, Neutrophils # (Auto) 11.0 H, Lymphocytes # (Auto) 1.1 L, Monocytes # (Auto) 1.4 H, Eosinophils # (Auto) 0.5, Basophils # (Auto) 0.1, Calcium Level 7.2 L, Aspartate Amino Transf (AST/SGOT) 21, Alanine Aminotransferase (ALT/SGPT) 17, Alkaline Phosphatase 342 H, Total Bilirubin 0.5, Total Protein 6.0 L, Albumin 1.3 L SHAGGY MASON MD April 10, 2019 12:12
[2019-04-10 14:00] VITALS: BP 124/63
[2019-04-10] MEDS: MORPHINE 4 MG/ML 1ML VIAL/SYRINGE (J2270) IV PRN ×2 (14:06→19:00)
[2019-04-10] MEDS: **VANCO AFTER HD** MISC XX SCH (14:51)
[2019-04-10] MEDS: ACETAMINOPHEN TAB 650MG DOSE (2X325MG) PO PRN (16:07)
[2019-04-10] MEDS ORDERED: MORPHINE 4 MG/ML 1ML VIAL/SYRINGE (J2270) IV ONE (17:00)
[2019-04-10] MEDS: SIMVASTATIN 20 MG TAB PO SCH (21:56)
[2019-04-10] MEDS: rOPINIRole 1MG TAB PO SCH (21:57)
[2019-04-10 22:00] VITALS: BP 119/62
[2019-04-11 06:00] VITALS: BP 106/56
[2019-04-11] MEDS: LEVOTHYROXINE 125MCG TABLET (0.125MG) PO SCH (06:16)
[2019-04-11 06:27] LABS: BASO % 0.4 % (0.0-1.0); EOS # 0.4 10^3/uL (0.0-0.50); EOS % 3.9 % (0.0-3.0); HEMATOCRIT 30.9 % (36.0-47.0); HEMOGLOBIN 9.2 g/dl (12.0-15.5); LYMPH % 9.8 % (24.0-44.0); MEAN CORPUSCULAR HEMOGLOBIN 29.3 pg (27.0-33.0); MEAN CORPUSCULAR HGB CONC 29.8 g/dl (32.0-36.5); MEAN CORPUSCULAR VOLUME 98.4 fl (80.0-96.0); MONO # 1.4 10^3/uL (0.0-0.8); MONO % 13.6 % (0.0-5.0); NEUTROPHILS # 7.1 10^3/uL (1.8-7.7); NEUTROPHILS % 71.5 % (36.0-66.0); PLATELET COUNT, AUTOMATED 182 10^3/uL (150-450); RED BLOOD COUNT 3.14 10^6/uL (4.00-5.40)
[2019-04-11 06:44] LABS: CALCIUM LEVEL 7.2 MG/DL (8.8-10.2); CREATININE FOR GFR 5.42 MG/DL (0.55-1.30); GLOMERULAR FILTRATION RATE 8.3 (>39); POTASSIUM SERUM 4.3 MEQ/L (3.5-5.1); VANCOMYCIN RANDOM 20.9 UG/ML
[2019-04-11 07:30] VITALS: O2SAT 99
[2019-04-11] MEDS: LEVEMIR (INSULIN DETEMIR) 1 UNITS/0.01ML SC SCH ×2 (07:50→20:09)
[2019-04-11] MEDS: HumaLOG INSULIN (NovoLOG) PER UNIT SC SCH ×4 (07:50→20:09)
[2019-04-11] MEDS: HEPARIN SOD (PORCINE) 5000 UNITS/ML VIAL SC SCH ×2 (07:51→20:08)
[2019-04-11] MEDS: METOPROLOL SUCC *XL* 25MG TAB (TopROL *XL*) PO SCH ×2 (07:53→20:10)
[2019-04-11] MEDS: CLOPIDOGREL 75 MG TAB PO SCH (07:54)
[2019-04-11] MEDS: PANTOPRAZOLE 40MG TAB (PROTONIX) PO SCH (07:54)
[2019-04-11] MEDS: CALCIUM CARBONATE 500 MG CHEW U/D PO SCH ×3 (07:55→17:24)
[2019-04-11] MEDS: GABAPENTIN 300 MG CAP PO SCH ×2 (07:55→20:10)
[2019-04-11] MEDS: DULoxetine 30 MG CAP (CYMBALTA) PO SCH (07:55)
[2019-04-11] MEDS: oxyCODONE 10 MG CR TAB PO SCH ×2 (07:55→20:09)
[2019-04-11] MEDS: EUCERIN 120GM CREAM TOP SCH ×2 (07:56→20:10)
[2019-04-11] MEDS ORDERED: LIDOCAINE 1% SDV 5 ML VIAL SQ ONE (11:00)
[2019-04-11] MEDS ORDERED: HEPARIN 1,000 UNITS/ML 10ML VIAL (FOR RADIOLOGY& DIALYSIS ONLY) IV ONE (11:00)
[2019-04-11] MEDS: PIPERACILLIN/TAZOBACTAM SOD 2.25 GM in D5W MINI-BAG PLUS 50 ML IV SCH ×2 (13:05→23:13)
--- NOTE | 2019-04-11 13:17 | IPNPDOC ---
Subjective Date Seen The patient was seen on 04/11/19. Subjective Chief Complaint/HPI No new complaints at the present time. Patient in hemodialysis at the present time General: Denies: ROS Unobtainable, Chills, Night Sweats, Fatigue, Malaise, Normal Appetite, Other Symptoms Constitutional: Denies: Chills, Fever, Malaise, Night Sweats, Weakness, Fatigue, Weight Loss, Lethargy, Other Eyes: Denies: Pain, Vision change, Conjunctivae inflammation, Eyelid inflammati on, Redness, Other ENT: Denies: Head Aches, Ear Pain, Dysphagia, Sinus Congestion, Post Nasal Drip, Sore Throat, Epistaxis, Other Symptoms Skin: Denies: Rash, Lesions, Jaundice, Bruising, Itching, Dry, Breakdown, Nail Changes, Other Pulmonary: Denies: Dyspnea, Cough, Pleuritic Chest Pain, Other Symptoms Cardiovascular: Denies: Chest Pain, Palpitations, Orthopnea, Paroxysmal Noc. Dyspnea, Edema, Lt Headedness, Other Symptoms Gastrointestinal: Denies: Nausea, Vomiting, Abdominal Pain, Diarrhea, Constipation, Melena, Hematochezia, Other Symptoms Genitourinary: Denies: Dysuria, Frequency, Incontinence, Hematuria, Retention, Other Symptoms Hematologic: Denies: Bruising, Bleeding Excessively, Petecchia, Purpura, Enlarged Lymph Nodes, Other Hematologic Endocrine: Denies: Polydipsia, Polyphagia, Polyuria, Heat Intolerance, Cold Intolerance, Other Endocrine Sx Musculoskeletal: Denies: Neck Pain, Back Pain, Shoulder Pain, Arm Pain, Hand Pain, Leg Pain, Foot Pain, Joint Pain, Muscle Pain, Spasms, Other Symptoms Neurological: Denies: Weakness, Numbness, Incoordination, Change in speech, Confusion, Seizures, Other Symptoms Psych: Denies: Mood Normal, Anxiety, Depression, Memory Issues, Thoughts of Self Harm, Anger, Thoughts of Harming Other, Other Psych Objective Physical Examination General Exam: Positive: Alert, Cooperative, No Acute Distress ENT Exam: Positive: Atraumatic, Mucous membr. moist/pink Chest Exam: Positive: Diminished Heart Exam: Positive: Rate Normal, Normal S1, Normal S2 Abdomen Exam: Positive: Soft, Other (distended, positive fluid wave); Negative: Tenderness Extremity Exam: Positive: Other (status post left lower extremity BKA dressing in place); Negative: Tenderness Skin Exam: Positive: Other skin issue (left foot noted to be wrapped in rausch rgical dressing.) Psych Exam: Positive: Oriented x 3 A-FIB/CHADSVASC A-FIB History Current/History of A-Fib/PAF?: No Assessment /Plan Problems (1) Cellulitis of foot Status: Acute Problem Text: 68-year-old female admitted to [facility] 03/21/19 related to increased redness and bloody weeping from her left foot ulcer at the heel, which she has had since August [address] Baeza. There was also a new ulcer on the medial malleolus that is growing proximal to the old ulcer. Per the patient, new ulcer has evolved over the past 1-2 weeks, and was also assessed by Dr. Baeza when both wounds were debrided. Vascular surgery consulted 03/27/19 for further evaluation of left foot wound. The patient is status post left foot debridement and amputation second and third toes as per Dr. Estrella 03/27/19. The patient is S/P LLE angiogram 03/29/[address] Estrelal, no intervention. S/P guilotine amputation Left foot as per Dr Estrella 04/02/19. POD1. Plan is for BKA Tue/ this week pending LLE cellulitis. Patient had a paracentesis done yesterday and did receive a supplementation with albumin status-post guilotine amputation of L foot post-operative day #[address] Estrella on 04/02/19. Is status-post 1 unit PRBCs yesterday. Is afebrile and hemodynamically stable today. Blood pressures have improved since yesterday. Had paracentesis today with 4.7 liters of drained. Will be going for L BKA procedure tomorrow with Dr. Estrella. Postoperative pain better controlled today. Denies fevers, chills, chest pain, SOB, nausea, vomiting, abdominal pain, diarrhea, constipation. Was last dialyzed on 04/04/19 with 126 mL out. Status post below-knee amputation of left foot by Dr. Estrella Postop she developed episode of respiratory distress but was reversed with Narcan Patient has been transferred to PCU, which is being monitored closely and also pain management with morphine and Percocet has been started Patient is alert, oriented 3, in no apparent distress. We will continue the present care. Further, as per surgical recommendations Patient is still complaining of pain, will adjust the dosage so she can get when necessary dose every 4-6 hours y Her pain management is very effective on patient at the present she does not complain of any pain or discomfort at the present time and will continue the same Pt is awaiting placement in subacute rehabilitation facility. WBC count has significantly decreased, will change to by mouth antibiotics when she is scheduled good rehabilitation facility Plan/VTE VTE Prophylaxis Ordered?: Yes VS, I&O, 24H, Fishbone Vital Signs/I&O Vital Signs Date Time Temp Pulse Resp B/P (MAP) Pulse Ox O2 Delivery O2 Flow Rate FiO2 04/11/19 09:00 2.0 04/11/19 07:55 16 04/11/19 07:53 70 117/52 04/11/19 07:30 99 Nasal Cannula 04/11/19 06:00 97.2 I&O- Last 24 Hours up to 6 AM 04/11/19 06:00 Intake Total 1670 ml Output Total 0 ml Balance 1670 ml Laboratory Data 24H LABS Laboratory Tests 2 04/10/19 16:19: Bedside Glucose (Misc Panel) 123H 04/10/19 21:10: Bedside Glucose (Misc Panel) 142H 04/11/19 05:34: Immature Granulocyte % (Auto) 0.8, White Blood Count 10.0, Red Blood Count 3.14L, Hemoglobin 9.2L, Hematocrit 30.9L, Mean Corpuscular Volume 98.4H, Mean Corpuscular Hemoglobin 29.3, Mean Corpuscular Hemoglobin Concent 29.8L, Red Cell Distribution Width 20.2H, Platelet Count 182, Neutrophils (%) (Auto) 71.5H, Lymphocytes (%) (Auto) 9.8L, Monocytes (%) (Auto) 13.6H, Eosinophils (%) (Auto) 3.9H, Basophils (%) (Auto) 0.4, Neutrophils # (Auto) 7.1, Lymphocytes # (Auto) 1.0L, Monocytes # (Auto) 1.4H, Eosinophils # (Auto) 0.4, Basophils # (Auto) 0.0, Nucleated Red Blood Cells % (auto) 0.0, Anion Gap 11, Glomerular Filtration Rate 8.3L, Blood Urea Nitrogen 51H, Creatinine 5.42H, Sodium Level 140, Potassium Level 4.3, Chloride Level 102, Carbon Dioxide Level 27, Calcium Level 7.2L, Random Vancomycin Level 20.9 04/11/19 12:59: Bedside Glucose (Misc Panel) 113H CBC/BMP Laboratory Tests 04/11/19 05:34 Red Blood Count 3.14 L, Mean Corpuscular Volume 98.4 H, Mean Corpuscular Hemoglobin 29.3, Mean Corpuscular Hemoglobin Concent 29.8 L, Red Cell Distribution Width 20.2 H, Neutrophils (%) (Auto) 71.5 H, Lymphocytes (%) (Auto) 9.8 L, Monocytes (%) (Auto) 13.6 H, Eosinophils (%) (Auto) 3.9 H, Basophils (%) (Auto) 0.4, Neutrophils # (Auto) 7.1, Lymphocytes # (Auto) 1.0 L, Monocytes # (Auto) 1.4 H, Eosinophils # (Auto) 0.4, Basophils # (Auto) 0.0, Calcium Level 7.2 L SHAGGY MASON MD April 11, 2019 13:17
[2019-04-11 14:00] VITALS: BP 137/66
[2019-04-11] MEDS: MORPHINE 4 MG/ML 1ML VIAL/SYRINGE (J2270) IV PRN ×3 (14:08→21:29)
[2019-04-11] MEDS: VANCOMYCIN HCL 750 MG, VIAL MATE ADAPTER 1 EACH in D5W 250 ML IV SCH (15:11)
--- NOTE | 2019-04-11 15:22 | IPNPDOC ---
Date Seen The patient was seen on 04/11/19. Progress Note VASCULAR SURGERY Dr Estrella HPI: 68-year-old female admitted to [facility] 03/21/19 related to increased redness and bloody weeping from her left foot ulcer at the heel, which she has had since August [address] Baeza. There was also a new ulcer on the medial malleolus that is growing proximal to the old ulcer. Per the patient, new ulcer has evolved over the past 1-2 weeks, and was also assessed by Dr. Baeza when both wounds were debrided. Vascular surgery consulted 03/27/19 for further evaluation of left foot wound. The patient is status post left foot debridement and amputation second and third toes as per Dr. Estrella 03/27/19. The patient is S/P LLE angiogram 03/29/[address] Estrella, no intervention. 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 Pt states pain is controlled currently. ESRD with HD MWF as per Nephrology. Also, due to her cirrhosis, she undergoes paracentesis every 2 weeks, S/P paracentesis 04/05/19. Denies any fevers, chills, weakness, fatigue, Headache, Chest Pain, Shortness of breath, cough, palpitations, abdominal pain, N/V/D or changes in bowel or bladder habits. 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 Left arm AV fistula. Appendectomy. Hysterectomy. Bilateral cataracts. PE: GEN: 68 yo F, appears stated age. No acute distress. Alert and oriented. HEENT: Normocephalic, atraumatic. No facial asymmetry. Moist mucous membranes. CHEST: Regular rate and rhythm, +S1, +S2 LUNGS: Clear to auscultation bilaterally. No wheezes, rales, or rhonchi. ABD: Round, distended, nontender. +Bowel sounds throughout. EXT: S/P BKA LLE, dressing changed today. Veronica intact. There is an approximate 4-5cm dark colored area anteriorly at incision line, skin remains intact. Remainder of stump with good cap refill. NEURO: Alert and oriented x 3. Cranial nerves III-XII are intact. No focal deficits appreciated. 03/21 blood culture x2. Negative 03/21 left foot WOUND CULTURE Final Organism 1 ENTEROBACTER CLOACAE COMPLEX QUANTITY OF GROWTH HEAVY Organism 2 STAPHYLOCOCCUS AUREUS QUANTITY OF GROWTH HEAVY Organism 3 STAPH.AUREUS METHICILLIN RESIS QUANTITY OF GROWTH HEAVY FULL REPORT IN LAB NOTES (eCW and Medent). 03/23 left foot wound culture Negative MRI left foot Once again there are findings are Charcot foot which appear unchanged compared to the prior study of 09/04/2018. Diffuse subchondral marrow edema is seen in the distal tibia and fibula as well as the tarsal bones, unchanged. No definite acute osteomyelitis. Diffuse edema and probable cellulitis. Large joint effusion at the tibiotalar joint. Complex fluid collection centered between the second and third metatarsals extends into the plantar soft-tissues along the flexor tendons and also extends into the dorsal soft-tissues. There may be internal foci or air and therefore this may represent an abscess. Electronically Signed by Aureliano Rivas MD 03/26/2019 04:22 P TTE 1. Study is of good technical quality. 2. Normal LV size with mild LVH and hyperdynamic LV systolic function. Grade 1 diastolic dysfunction. 3. Aortic sclerosis with trivial stenosis and insufficiency. 4. Degenerative abnormalities of mitral valve with trace mitral insufficiency. 5. Normal central venous pressure and likely normal pulmonary artery pressure. 6. Small non compressive pericardial effusion. 7. Likely ascites in the abdomen. DD: Apolonia White MD 04/03/19 0811 A&P: 68-year-old female admitted to [facility] 03/21/19 related to increased redness and bloody weeping from her left foot ulcer at the heel, which she has had since August [address] Baeza. There was also a new ulcer on the medial malleolus that is growing proximal to the old ulcer. Per the patient, new ulcer has evolved over the past 1-2 weeks, and was also assessed by Dr. Baeza when both wounds were debrided. Vascular surgery consulted 03/27/19 for further evaluation of left foot wound. 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 POD5. Continue dry dressing daily. Patient is afebrile. WBC 10.0, downtrending. Patient remains on IV Vanco/Zosyn Continue to closely monitor incision. ESRD Hemodialysis as per nephrology. CHF. Fluid management as per nephrology. Chronic anemia. venofer as per nephrology. Aranesp as per nephrology. S/P 1 u PRBC 04/09/19 Hgb 9.2 Hx of Liver Cirrhosis s/p paracentesis on 04/05/19. DVT ppx: heparin sc A-FIB/CHADSVASC A-FIB History Current/History of A-Fib/PAF?: No VS, I&O, 24H, Fishbone Vital Signs/I&O Vital Signs Date Time Temp Pulse Resp B/P (MAP) Pulse Ox O2 Delivery O2 Flow Rate FiO2 04/11/19 14:08 24 04/11/19 14:00 97.9 83 137/66 (89) 98 2.0 04/11/19 07:30 Nasal Cannula I&O- Last 24 Hours up to 6 AM 04/11/19 06:00 Intake Total 1670 ml Output Total 0 ml Balance 1670 ml Laboratory Data 24H LABS Laboratory Tests 2 04/10/19 16:19: Bedside Glucose (Misc Panel) 123H 04/10/19 21:10: Bedside Glucose (Misc Panel) 142H 04/11/19 05:34: Immature Granulocyte % (Auto) 0.8, White Blood Count 10.0, Red Blood Count 3.14L, Hemoglobin 9.2L, Hematocrit 30.9L, Mean Corpuscular Volume 98.4H, Mean Corpuscular Hemoglobin 29.3, Mean Corpuscular Hemoglobin Concent 29.8L, Red Cell Distribution Width 20.2H, Platelet Count 182, Neutrophils (%) (Auto) 71.5H, Lymphocytes (%) (Auto) 9.8L, Monocytes (%) (Auto) 13.6H, Eosinophils (%) (Auto) 3.9H, Basophils (%) (Auto) 0.4, Neutrophils # (Auto) 7.1, Lymphocytes # (Auto) 1.0L, Monocytes # (Auto) 1.4H, Eosinophils # (Auto) 0.4, Basophils # (Auto) 0.0, Nucleated Red Blood Cells % (auto) 0.0, Anion Gap 11, Glomerular Filtration Rate 8.3L, Blood Urea Nitrogen 51H, Creatinine 5.42H, Sodium Level 140, Potassium Level 4.3, Chloride Level 102, Carbon Dioxide Level 27, Calcium Level 7.2L, Random Vancomycin Level 20.9 04/11/19 12:59: Bedside Glucose (Misc Panel) 113H CBC/BMP Laboratory Tests 04/11/19 05:34 Red Blood Count 3.14 L, Mean Corpuscular Volume 98.4 H, Mean Corpuscular Hemoglobin 29.3, Mean Corpuscular Hemoglobin Concent 29.8 L, Red Cell Distribution Width 20.2 H, Neutrophils (%) (Auto) 71.5 H, Lymphocytes (%) (Auto) 9.8 L, Monocytes (%) (Auto) 13.6 H, Eosinophils (%) (Auto) 3.9 H, Basophils (%) (Auto) 0.4, Neutrophils # (Auto) 7.1, Lymphocytes # (Auto) 1.0 L, Monocytes # (Auto) 1.4 H, Eosinophils # (Auto) 0.4, Basophils # (Auto) 0.0, Calcium Level 7.2 L Trini Vieira April 11, 2019 15:22
[2019-04-11] MEDS: **VANCO AFTER HD** MISC XX SCH (16:02)
--- NOTE | 2019-04-11 17:25 | IPNPDOC ---
Text Note Date of Service The patient was seen on 04/10/19. NOTE Nephrology Service: Subjective: Patient seen and examined at bedside. Was lying in bed comfortably. Mentating appropriately. Is status-post guilotine amputation of L foot post-operative day #[address] Estrella on 04/02/19 and now status-post L BKA postoperative day #4 today. Pain is well controlled. Is afebrile and hemodynamically stable today. Status- post 1 unit PRBCs yesterday. Blood pressures have been stable. Denies fevers, chills, chest pain, SOB, nausea, vomiting, abdominal pain. Previously, dialyzed on 04/09/19 with 1500 mL removed. Objective: Vitals: T: 98.7 BP: 140/67 RR: 18 P: 72 O2 Saturation: 96% on 2 liters NC Intake: 1830 ml Output: 1500 mL Balance: (+) 330 ml Urine Total: 0 mL General: AAO x 3. Adult obese female lying comfortably in dialysis bed in NAD. Speaks very softly. Pleasant and cooperative. Answering questions appropriately. Mentating well. HEENT: Head: normocephalic, atraumatic. Neck: Supple. Respiratory: Clear to auscultation bilaterally with no wheezes, rales, or rhonchi. Cardiovascular: Normal S1S2, regular rate and rhythm, with no murmurs, rubs or gallops. Abdomen: Soft, nontender, distended, ascites present. Extremities: Dressing on L leg status-post L BKA. L leg dressing appears clean, dry, intact. (+)1 pitting edema of RLE and LLE. (+)Tenderness to palpation of LLE which is appropriate. Vascular: LUE fistula is present. Musculoskeletal: Moves all 4 extremities. Neurological: Mentating appropriately. No focal neurologic deficits on inspection. Laboratory data: CBC: WBC 14.2, Hgb 9.2, Platelets 178. BMP: Na 140, K 3.9, BUN 43, Cr 4.54, CO2 28, glucose 138, Ca 7.2. Current Inpatient Medications: Vancomycin 750 mg IV HD Zosyn 2.25 mg/dextrose IV HD Venofer (Iron) 100 mg IV HD Ropinirole 1 mg PO QHS Aranesp (Darbepoetin Yordan) 100 mcg HD IV Metoprolol succinate 25 mg PO BID Veltassa (Patiromer) 8.4 gm as directed PRN PO missing dialysis No other change in the medications today as compared with yesterday. Assessment/Plan: 1. End-stage renal disease on hemodialysis on Tuesday, Tuesday, Tuesday s chedule: Last dialysis was yesterday. Next dialysis will be on Tuesday the . BPs are stable and patient is hemodynamically stable at this point. Hgb is 9.2 today. Had 1 PRBC transfused yesterday and 1 the day prior. Her electrolytes are acceptable and her fistula is in good use. On veltassa for hyperkalemia PRN. Continue to monitor Intake and Output as well as BMP/electrolytes. 2. Hypertension: BPs stable today. Continue metoprolol with hold parameters in place due to past episodes of hypotension. Will continue to monitor. 3. Recurrent ascites status post paracentesis x3 on this admission: Paracentesis only performed 1-2 times per month in outpatient setting and needs to have albumin transfusion with each paracentesis. Plavix does need to be held for several days prior to each tap and she does have a history of coronary artery disease. 4. Diastolic congestive heart failure with exacerbation: According to most recent echocardiogram, patient has grade 1 diastolic dysfunction. Has hx of chronic fluid overload secondary to noncompliance in the outpatient office. Patient also noncompliant with her fluid restrictions. Patient also has hx of recurrent ascites. Have to be cautious with removal of fluid during dialysis secondary to patient's hx of recent soft blood pressures. Patient's volume status is stable and acceptable today. 5. Anemia secondary to end-stage renal disease, iron deficiency and chronic inflammation: Hemoglobin is 9.2 (L). Continue Aranesp and Venofer 100 mg HD IV. Continue to monitor CBC. Status-post transfusion of 1 PRBC yesterday. 6. Left foot abscess and Charcot foot status-post guilotine amputation of L foot post-operative day #[address] Estrella on 04/02/19 vascular surgery and L BKA postoperative day #4 today. Is doing well postoperatively and pain is well controlled at this time. Mentating appropriately. Will need PT/rehab. Continues on renally dosed antibiotics managed as per the primary team. My preceptor for this patient encounter was Dr. Maia Grullon, and was physically present in the building during the encounter and was fully available. As needed, all aspects of the patient interview, examination, medical decision making process, and medical care plan development were reviewed and approved by the preceptor. Preceptor is aware and concurs with the plan as stated in the body of this note and will attest to such by his/her cosignature. A-FIB/CHADSVASC A-FIB History Current/History of A-Fib/PAF?: No Current Oral Anticoagulant The: No VS,Fishbone, I+O VS, Fishbone, I+O Laboratory Tests 04/10/19 05:29 Red Blood Count 3.16 L, Mean Corpuscular Volume 93.4, Mean Corpuscular Hemoglobin 29.1, Mean Corpuscular Hemoglobin Concent 31.2 L, Red Cell Distribution Width 20.8 H, Neutrophils (%) (Auto) 77.6 H, Lymphocytes (%) (Auto) 8.0 L, Monocytes (%) (Auto) 9.7 H, Eosinophils (%) (Auto) 3.2 H, Basophils (%) (Auto) 0.4, Neutrophils # (Auto) 11.0 H, Lymphocytes # (Auto) 1.1 L, Monocytes # (Auto) 1.4 H, Eosinophils # (Auto) 0.5, Basophils # (Auto) 0.1, Calcium Level 7.2 L, Aspartate Amino Transf (AST/SGOT) 21, Alanine Aminotransferase (ALT/SGPT) 17, Alkaline Phosphatase 342 H, Total Bilirubin 0.5, Total Protein 6.0 L, Albumin 1.3 L Vital Signs Date Time Temp Pulse Resp B/P (MAP) Pulse Ox O2 Delivery O2 Flow Rate FiO2 04/10/19 21:57 69 119/62 04/10/19 21:56 17 04/10/19 14:00 97.1 97 2.0 04/10/19 03:57 Nasal Cannula I&O- Last 24 Hours up to 6 AM 04/10/19 06:00 Intake Total 2430 ml Output Total 1500 ml Balance 930 ml JENISE LUCERO DO April 10, 2019 22:28
--- NOTE | 2019-04-11 17:42 | IPNPDOC ---
Text Note Date of Service The patient was seen on 04/11/19. NOTE Nephrology Service: Subjective: Patient seen and examined in dialysis today. Was lying in bed comfortably. Mentating appropriately. Is status-post guilotine amputation of L foot post- operative day #[address] Estrella on 04/02/19 and now status-post L BKA postoperative day #5 today. Pain is well controlled. Is afebrile and hemodynamically stable today. Blood pressures have been stable. Denies fevers, chills, chest pain, SOB, nausea, vomiting, abdominal pain. Admits to distension of abdomen. Previously, dialyzed on 04/09/19 with 1500 mL removed. Objective: Vitals: T: 97.2 BP: 106/56 RR: 18 P: 67 O2 Saturation: 99% on 2 liters NC Intake: 2270 ml Output: 0 mL Balance: (+) 2270 ml Urine Total: 0 mL General: AAO x 3. Adult obese female lying comfortably in dialysis bed in NAD. Speaks very softly. Pleasant and cooperative. Answering questions appropriately. Mentating well. HEENT: Head: normocephalic, atraumatic. Neck: Supple. Mild JVD. Respiratory: Clear to auscultation bilaterally with no wheezes, rales, or rhonchi. Cardiovascular: Normal S1S2, regular rate and rhythm, with no murmurs, rubs or gallops. Abdomen: Soft, nontender, distended, ascites present and increased since yesterday. (+)fluid wave. Extremities: Dressing on L leg status-post L BKA. L leg dressing appears clean, dry, intact. (+)1 pitting edema of RLE and LLE. Vascular: LUE fistula is present. Musculoskeletal: Moves all 4 extremities. Neurological: Mentating appropriately. No focal neurologic deficits on inspection. Laboratory data: CBC: WBC 10, Hgb 9.2, Platelets 182. BMP: Na 140, K 4.3, BUN 43, Cr 4.54, CO2 27, glucose 140, Ca 7.2. Current Inpatient Medications: Vancomycin 750 mg IV HD Zosyn 2.25 mg/dextrose IV HD Venofer (Iron) 100 mg IV HD Ropinirole 1 mg PO QHS Aranesp (Darbepoetin Yordan) 100 mcg HD IV Metoprolol succinate 25 mg PO BID Veltassa (Patiromer) 8.4 gm as directed PRN PO missing dialysis No other change in the medications today as compared with yesterday. Assessment/Plan: 1. End-stage renal disease on hemodialysis on Tuesday, Tuesday, Tuesday cat regalado: Receiving dialysis today. BPs are stable and patient is hemodynamically stable at this point. Hgb is 9.2 today. Her electrolytes are acceptable and her fistula is in good use. On veltassa for hyperkalemia PRN. Continue to monitor Intake and Output as well as BMP/electrolytes. 2. Hypertension: BPs stable today. Continue metoprolol with hold parameters in place due to past episodes of hypotension. Will continue to monitor. 3. Recurrent ascites status post paracentesis x3 on this admission: Paracentesis only performed 1-2 times per month in outpatient setting and needs to have albumin transfusion with each paracentesis. Plavix does need to be held for several days prior to each tap and she does have a history of coronary artery disease. Will likely go for paracentesis tomorrow and will definitely need albumin transfusion if gets paracentesis. 4. Diastolic congestive heart failure with exacerbation: According to most recent echocardiogram, patient has grade 1 diastolic dysfunction. Has hx of chronic fluid overload secondary to noncompliance in the outpatient office. Patient also noncompliant with her fluid restrictions. Patient also has hx of recurrent ascites. Have to be cautious with removal of fluid during dialysis secondary to patient's hx of recent soft blood pressures. Patient's volume status is stable and acceptable today. 5. Anemia secondary to end-stage renal disease, iron deficiency and chronic inflammation: Hemoglobin is 9.2 (L). Continue Aranesp and Venofer 100 mg HD IV. Continue to monitor CBC. 6. Left foot abscess and Charcot foot status-post guilotine amputation of L foot post-operative day #[address] Estrella on 04/02/19 vascular surgery and L BKA postoperative day #5 today. Is doing well postoperatively and pain is well controlled at this time. Mentating appropriately. Will need PT/rehab. Continues on renally dosed antibiotics managed as per the primary team. My preceptor for this patient encounter was Dr. Maia Grullon, and was physically present in the building during the encounter and was fully available. As needed, all aspects of the patient interview, examination, medical decision making process, and medical care plan development were reviewed and approved by the preceptor. Preceptor is aware and concurs with the plan as stated in the body of this note and will attest to such by his/her cosignature. A-FIB/CHADSVASC A-FIB History Current/History of A-Fib/PAF?: No Current Oral Anticoagulant The: No VS,Fishbone, I+O VS, Fishbone, I+O Laboratory Tests 04/11/19 05:34 Red Blood Count 3.14 L, Mean Corpuscular Volume 98.4 H, Mean Corpuscular Hemoglobin 29.3, Mean Corpuscular Hemoglobin Concent 29.8 L, Red Cell Distribution Width 20.2 H, Neutrophils (%) (Auto) 71.5 H, Lymphocytes (%) (Auto) 9.8 L, Monocytes (%) (Auto) 13.6 H, Eosinophils (%) (Auto) 3.9 H, Basophils (%) (Auto) 0.4, Neutrophils # (Auto) 7.1, Lymphocytes # (Auto) 1.0 L, Monocytes # (Auto) 1.4 H, Eosinophils # (Auto) 0.4, Basophils # (Auto) 0.0, Calcium Level 7.2 L Vital Signs Date Time Temp Pulse Resp B/P (MAP) Pulse Ox O2 Delivery O2 Flow Rate FiO2 04/11/19 14:08 24 04/11/19 14:00 97.9 83 137/66 (89) 98 2.0 04/11/19 07:30 Nasal Cannula I&O- Last 24 Hours up to 6 AM 04/11/19 06:00 Intake Total 1670 ml Output Total 0 ml Balance 1670 ml JENISE LUCERO DO April 11, 2019 17:29
[2019-04-11] MEDS: rOPINIRole 1MG TAB PO SCH (20:10)
[2019-04-11] MEDS: SIMVASTATIN 20 MG TAB PO SCH (20:10)
[2019-04-11 22:00] VITALS: BP 99/55
[2019-04-12] MEDS: ACETAMINOPHEN TAB 650MG DOSE (2X325MG) PO PRN (04:37)
[2019-04-12] MEDS: LEVOTHYROXINE 125MCG TABLET (0.125MG) PO SCH (05:05)
[2019-04-12] MEDS: MORPHINE 4 MG/ML 1ML VIAL/SYRINGE (J2270) IV PRN ×2 (05:48→11:07)
[2019-04-12 06:00] VITALS: BP 131/70
[2019-04-12 06:23] LABS: BASO # 0.1 10^3/uL (0.0-0.2); BASO % 0.6 % (0.0-1.0); EOS # 0.4 10^3/uL (0.0-0.50); EOS % 4.5 % (0.0-3.0); HEMATOCRIT 30.6 % (36.0-47.0); HEMOGLOBIN 9.1 g/dl (12.0-15.5); LYMPH % 11.4 % (24.0-44.0); MEAN CORPUSCULAR HGB CONC 29.7 g/dl (32.0-36.5); MEAN CORPUSCULAR VOLUME 97.5 fl (80.0-96.0); MONO # 1.7 10^3/uL (0.0-0.8); MONO % 19.7 % (0.0-5.0); NEUTROPHILS # 5.4 10^3/uL (1.8-7.7); NEUTROPHILS % 62.3 % (36.0-66.0); PLATELET COUNT, AUTOMATED 202 10^3/uL (150-450); RED BLOOD COUNT 3.14 10^6/uL (4.00-5.40); WHITE BLOOD COUNT 8.6 10^3/uL (4.0-10.0)
[2019-04-12 06:50] LABS: CREATININE FOR GFR 4.2 MG/DL (0.55-1.30); GLOMERULAR FILTRATION RATE 11.1 (>39); POTASSIUM SERUM 4.1 MEQ/L (3.5-5.1)
[2019-04-12] MEDS: HumaLOG INSULIN (NovoLOG) PER UNIT SC SCH (07:30)
[2019-04-12] MEDS: DULoxetine 30 MG CAP (CYMBALTA) PO SCH (08:52)
[2019-04-12] MEDS: GABAPENTIN 300 MG CAP PO SCH (08:52)
[2019-04-12] MEDS: PANTOPRAZOLE 40MG TAB (PROTONIX) PO SCH (08:52)
[2019-04-12] MEDS: CALCIUM CARBONATE 500 MG CHEW U/D PO SCH (08:52)
[2019-04-12] MEDS: oxyCODONE 10 MG CR TAB PO SCH (08:54)
[2019-04-12 08:58] VITALS: BP 131/65
[2019-04-12] MEDS: METOPROLOL SUCC *XL* 25MG TAB (TopROL *XL*) PO SCH (08:58)
[2019-04-12] MEDS: LEVEMIR (INSULIN DETEMIR) 1 UNITS/0.01ML SC SCH (08:58)
[2019-04-12] MEDS: CLOPIDOGREL 75 MG TAB PO SCH (09:00)
[2019-04-12] MEDS: HEPARIN SOD (PORCINE) 5000 UNITS/ML VIAL SC SCH (09:00)
[2019-04-12] MEDS: EUCERIN 120GM CREAM TOP SCH (09:01)
[2019-04-12] MEDS ORDERED: OXYC-403 PO (11:03)
--- NOTE | 2019-04-12 11:37 | IPNPDOC ---
Date Seen The patient was seen on 04/12/19. Progress Note VASCULAR SURGERY Dr Estrella HPI: 68-year-old female admitted to [facility] 03/21/19 related to increased redness and bloody weeping from her left foot ulcer at the heel, which she has had since August [address] Baeza. There was also a new ulcer on the medial malleolus that is growing proximal to the old ulcer. Per the patient, new ulcer has evolved over the past 1-2 weeks, and was also assessed by Dr. Baeza when both wounds were debrided. Vascular surgery consulted 03/27/19 for further evaluation of left foot wound. The patient is status post left foot debridement and amputation second and third toes as per Dr. Estrella 03/27/19. The patient is S/P LLE angiogram 03/29/[address] Estrella, no intervention. 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 Pt states pain is controlled currently. ESRD with HD MWF as per Nephrology. Also, due to her cirrhosis, she undergoes paracentesis every 2 weeks, S/P paracentesis 04/05/19. Scheduled for paracentesis today. Denies any fevers, chills, weakness, fatigue, Headache, Chest Pain, Shortness of breath, cough, palpitations, abdominal pain, N/V/D or changes in bowel or bladder habits. 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 Left arm AV fistula. Appendectomy. Hysterectomy. Bilateral cataracts. PE: GEN: 68 yo F, appears stated age. No acute distress. Alert and oriented. HEENT: Normocephalic, atraumatic. No facial asymmetry. Moist mucous membranes. CHEST: Regular rate and rhythm, +S1, +S2 LUNGS: Clear to auscultation bilaterally. No wheezes, rales, or rhonchi. ABD: Round, distended, nontender. +Bowel sounds throughout. EXT: S/P BKA LLE, dressing in place. NEURO: Alert and oriented x 3. Cranial nerves III-XII are intact. No focal deficits appreciated. 03/21 blood culture x2. Negative 03/21 left foot WOUND CULTURE Final Organism 1 ENTEROBACTER CLOACAE COMPLEX QUANTITY OF GROWTH HEAVY Organism 2 STAPHYLOCOCCUS AUREUS QUANTITY OF GROWTH HEAVY Organism 3 STAPH.AUREUS METHICILLIN RESIS QUANTITY OF GROWTH HEAVY FULL REPORT IN LAB NOTES (eCW and Medent). 03/23 left foot wound culture Negative MRI left foot Once again there are findings are Charcot foot which appear unchanged compared to the prior study of 09/04/2018. Diffuse subchondral marrow edema is seen in the distal tibia and fibula as well as the tarsal bones, unchanged. No definite acute osteomyelitis. Diffuse edema and probable cellulitis. Large joint effusion at the tibiotalar joint. Complex fluid collection centered between the second and third metatarsals extends into the plantar soft-tissues along the flexor tendons and also extends into the dorsal soft-tissues. There may be internal foci or air and therefore this may represent an abscess. Electronically Signed by Aureliano Rivas MD 03/26/2019 04:22 P TTE 1. Study is of good technical quality. 2. Normal LV size with mild LVH and hyperdynamic LV systolic function. Grade 1 diastolic dysfunction. 3. Aortic sclerosis with trivial stenosis and insufficiency. 4. Degenerative abnormalities of mitral valve with trace mitral insufficiency. 5. Normal central venous pressure and likely normal pulmonary artery pressure. 6. Small non compressive pericardial effusion. 7. Likely ascites in the abdomen. DD: Apolonia White MD 04/03/19 0811 A&P: 68-year-old female admitted to [facility] 03/21/19 related to increased redness and bloody weeping from her left foot ulcer at the heel, which she has had since August [address] Baeza. There was also a new ulcer on the medial malleolus that is growing proximal to the old ulcer. Per the patient, new ulcer has evolved over the past 1-2 weeks, and was also assessed by Dr. Au er when both wounds were debrided. Vascular surgery consulted 03/27/19 for further evaluation of left foot wound. 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 POD5. Continue dry dressing daily. Patient is afebrile. WBC 8.6, downtrending. Patient remains on IV Vanco/Zosyn Continue to closely monitor incision. ESRD Hemodialysis as per nephrology. CHF. Fluid management as per nephrology. Chronic anemia. venofer as per nephrology. Aranesp as per nephrology. S/P 1 u PRBC 04/09/19 Hgb 9.1 Hx of Liver Cirrhosis s/p paracentesis on 04/05/19. paracentesis planned today. DVT ppx: heparin sc ARU has accepted pt today. A-FIB/CHADSVASC A-FIB History Current/History of A-Fib/PAF?: No VS, I&O, [facility]H, [facility] Vital Signs/I&O Vital Signs Date Time Temp Pulse Resp B/P (MAP) Pulse Ox O2 Delivery O2 Flow Rate FiO2 04/12/19 11:07 18 2.0 04/12/19 08:58 85 131/65 04/12/19 06:00 96.9 99 04/11/19 07:30 Nasal Cannula I&O- Last 24 Hours up to 6 AM 04/12/19 06:00 Intake Total 610 ml Output Total 1000 ml Balance -390 ml Laboratory Data 24H LABS Laboratory Tests 2 04/11/19 12:59: Bedside Glucose (Misc Panel) 113H 04/11/19 16:45: Bedside Glucose (Misc Panel) 120H 04/11/19 20:03: Bedside Glucose (Misc Panel) 180H 04/12/19 05:31: Immature Granulocyte % (Auto) 1.5, White Blood Count 8.6, Red Blood Count 3.14L, Hemoglobin 9.1L, Hematocrit 30.6L, Mean Corpuscular Volume 97.5H, Mean Corpuscular Hemoglobin 29.0, Mean Corpuscular Hemoglobin Concent 29.7L, Red Cell Distribution Width 20.1H, Platelet Count 202, Neutrophils (%) (Auto) 62.3, Lymphocytes (%) (Auto) 11.4L, Monocytes (%) (Auto) 19.7H, Eosinophils (%) (Auto) 4.5H, Basophils (%) (Auto) 0.6, Neutrophils # (Auto) 5.4, Lymphocytes # (Auto) 1.0L, Monocytes # (Auto) 1.7H, Eosinophils # (Auto) 0.4, Basophils # (Auto) 0.1, Nucleated Red Blood Cells % (auto) 0.0, Anion Gap 7L, Glomerular Filtration Rate 11.1L, Blood Urea Nitrogen 35H, Creatinine 4.20H, Sodium Level 138, Potassium Level 4.1, Chloride Level 103, Carbon Dioxide Level 28, Calcium Level 8.0L CBC/BMP Laboratory Tests 04/12/19 05:31 Red Blood Count 3.14 L, Mean Corpuscular Volume 97.5 H, Mean Corpuscular Hemoglobin 29.0, Mean Corpuscular Hemoglobin Concent 29.7 L, Red Cell Distribution Width 20.1 H, Neutrophils (%) (Auto) 62.3, Lymphocytes (%) (Auto) 11.4 L, Monocytes (%) (Auto) 19.7 H, Eosinophils (%) (Auto) 4.5 H, Basophils (%) (Auto) 0.6, Neutrophils # (Auto) 5.4, Lymphocytes # (Auto) 1.0 L, Monocytes # (Auto) 1.7 H, Eosinophils # (Auto) 0.4, Basophils # (Auto) 0.1, Calcium Level 8.0 L Trini Vieira April 12, 2019 11:37
--- NOTE | 2019-04-12 13:55 | DS.PDOC ---
Discharge Summary General Date of Admission Mar 21, 2019 at 20:06 Date of Discharge 04/12/19 Attending Physician: SHAGGY MASON MD Discharge Summary PROCEDURES PERFORMED DURING STAY: [None]. ADMITTING DIAGNOSES: 1. [Left foot ulcer]. DISCHARGE DIAGNOSES: 1. [Left foot ulcer, status post left BKA]. COMPLICATIONS/CHIEF COMPLAINT: Foot Ulcer, Left. HISTORY OF PRESENT ILLNESS: [68-year-old female with significant PMH as mentioned below presents to the ER with daughter for concerns of increased redness and bloody weeping from her left foot ulcer at the heel, which she has had since August [address] Baeza. They're also concerned of a new ulcer on the medial malleolus that is growing proximal to the old ulcer. Per the patient, new ulcer has evolved over the past 1-2 weeks, and was also assessed by Dr. Baeza about one week ago when both wounds were debrided. She does have a public health nurse that comes in daily for dressing changes, and per the patient, podiatry had recommended to change how the wrapping is done and to shift bandages frequently. Of note, patient does have ESRD, on HD MWF, but missed Tuesday session due to an episode of diarrhea, and Tuesday session she ended up presenting to the ER instead. Also, due to her cirrhosis, she undergoes paracentesis every 2 weeks, which is scheduled for tomorrow 03/22/2019 at 9 AM. Given the concern for infected wounds of the left foot, fluid overload from cirrhosis and ESRD, will admit for further management]. HOSPITAL COURSE: . DISCHARGE MEDICATIONS: Please see below. ALLERGIES: Please see below. PHYSICAL EXAMINATION ON DISCHARGE: VITAL SIGNS: Please see below. GENERAL: HEENT: NECK: CARDIOVASCULAR EXAMINATION: RESPIRATORY EXAMINATION: ABDOMINAL EXAMINATION: EXTREMITIES: SKIN: NEUROLOGICAL EXAMINATION: PSYCHIATRIC EXAMINATION: LABORATORY DATA: Please see below. IMAGING: PROGNOSIS: ACTIVITY: [As tolerated]. DIET: DISCHARGE PLAN: DISPOSITION: 62 D/T Rehab Facility. DISCHARGE INSTRUCTIONS: 1. . ITEMS TO FOLLOWUP ON ON OUTPATIENT: 1. . DISCHARGE CONDITION: [Stable]. TIME SPENT ON DISCHARGE: Greater than minutes. Vital Signs/I&Os Vital Signs Date Time Temp Pulse Resp B/P (MAP) Pulse Ox O2 Delivery O2 Flow Rate FiO2 04/12/19 11:17 18 2.0 04/12/19 08:58 85 131/65 04/12/19 06:00 96.9 99 04/11/19 07:30 Nasal Cannula I&O- Last 24 Hours up to 6 AM 04/12/19 06:00 Intake Total 610 ml Output Total 1000 ml Balance -390 ml Laboratory Data Labs 24H Laboratory Tests 2 04/11/19 16:45: Bedside Glucose (Misc Panel) 120H 04/11/19 20:03: Bedside Glucose (Misc Panel) 180H 04/12/19 05:31: Immature Granulocyte % (Auto) 1.5, White Blood Count 8.6, Red Blood Count 3.14L, Hemoglobin 9.1L, Hematocrit 30.6L, Mean Corpuscular Volume 97.5H, Mean Co rpuscular Hemoglobin 29.0, Mean Corpuscular Hemoglobin Concent 29.7L, Red Cell Distribution Width 20.1H, Platelet Count 202, Neutrophils (%) (Auto) 62.3, Lymphocytes (%) (Auto) 11.4L, Monocytes (%) (Auto) 19.7H, Eosinophils (%) (Auto) 4.5H, Basophils (%) (Auto) 0.6, Neutrophils # (Auto) 5.4, Lymphocytes # (Auto) 1.0L, Monocytes # (Auto) 1.7H, Eosinophils # (Auto) 0.4, Basophils # (Auto) 0.1, Nucleated Red Blood Cells % (auto) 0.0, Anion Gap 7L, Glomerular Filtration Rate 11.1L, Blood Urea Nitrogen 35H, Creatinine 4.20H, Sodium Level 138, Potassium Level 4.1, Chloride Level 103, Carbon Dioxide Level 28, Calcium Level 8.0L 04/12/19 11:57: Bedside Glucose (Misc Panel) 150H CBC/BMP Laboratory Tests 04/12/19 05:31 Red Blood Count 3.14 L, Mean Corpuscular Volume 97.5 H, Mean Corpuscular Hemoglobin 29.0, Mean Corpuscular Hemoglobin Concent 29.7 L, Red Cell Distribution Width 20.1 H, Neutrophils (%) (Auto) 62.3, Lymphocytes (%) (Auto) 11.4 L, Monocytes (%) (Auto) 19.7 H, Eosinophils (%) (Auto) 4.5 H, Basophils (%) (Auto) 0.6, Neutrophils # (Auto) 5.4, Lymphocytes # (Auto) 1.0 L, Monocytes # (Auto) 1.7 H, Eosinophils # (Auto) 0.4, Basophils # (Auto) 0.1, Calcium Level 8.0 L FSBS Laboratory Tests Test 04/11/19 16:45 04/11/19 20:03 04/12/19 11:57 Range/Units Bedside Glucose (Misc Panel) 120 180 150 83-110 MG/DL Discharge Medications Scheduled Calcium Carbonate (Tums) 500 Mg Chw, 500 MG PO WM, (Reported) Clopidogrel Bisulfate (Plavix) 75 Mg Tab, 75 MG PO DAILY, (Reported) HAS NOT TAKEN SINCE 03/16/19 - SCHEDULED FOR PARACENTESIS ON 03/22/19 Duloxetine Hcl (Duloxetine HCl) 30 Mg Cap, 30 MG PO DAILY, (Reported) Gabapentin (Gabapentin) 100 Mg Cap, 300 MG PO BID, (Reported) Hydralazine HCl (Hydralazine HCl) 25 Mg Tab, 25 MG PO TID, (Reported) Insulin Detemir (Levemir) 1 Units/0.01 Ml Susp, 20 UNITS SC QHS, (Reported) Insulin Lispro (Humalog) 100 Unit/Ml Inj, 1 DOSE SC AC, (Reported) PER SLIDING SCALE Levothyroxine Sodium (Synthroid) 125 Mcg Tab, 125 MCG PO DAILY, (Reported) Losartan Potassium (Losartan Potassium) 50 Mg Tab, 50 MG PO DAILY, (Reported) Metoprolol Succinate (Metoprolol Succinate) 50 Mg Tab, 50 MG PO BID, (Reported) Oxycodone HCl (Oxycodone HCl ER) 10 Mg Tab.er.12h, 10 MG PO BID Pantoprazole Sodium (Pantoprazole Sodium) 40 Mg Tab, 40 MG PO DAILY, (Reported) Ropinirole HCl (Ropinirole HCl) 2 Mg Tab, 4 MG PO BID, (Reported) Silver Sulfadiazine (Ssd) 1 % Cre, 1 DOSE TOP DAILY, (Reported) WITH DRESSING CHANGES ON FOOT Simvastatin (Simvastatin) 20 Mg Tab, 20 MG PO QHS, (Reported) Sucroferric Oxyhydroxide (Velphoro) 500 Mg Tab.chew, 500 MG PO WM, (Reported) NEW OF 03/14/19 - CALCIUM ACETATE MAKE HER VOMIT DUE TO CAPSULES BEING TOO LARGE, TOOK VELPHORO FOR THE FIRST TIME 03/20/19 AND STATES IT MADE HER VERY LATHARGIC ALL DAY Trazodone HCl (Trazodone HCl) 100 Mg Tab, 200 MG PO QHS, (Reported) Scheduled PRN Alprazolam (Alprazolam) 0.25 Mg Tab, 0.25 MG PO BID PRN for ANXIETY, (Reported) Nystatin (Nystatin Oint) 30 Gm Oint, 1 DOSE TOP BID PRN for REDNESS/IRRITATION, (Reported) APPLY TO ABDOMINAL FOLDS Oxycodone HCl/Acetaminophen (Percocet 5-325 mg Tablet) 1 Tab Tab, 1 TAB PO DAILY PRN for PAIN, (Reported) Patiromer Calcium Sorbitex (Veltassa) 8.4 Gm Pow, 8.4 GM PO ASDIRECTED PRN for MISSING DIALYSIS, (Reported) WAS SUPPOSE TO TAKE 03/19/19 BUT DID NOT TAKE Allergies Coded Allergies: pregabalin (Verified Adverse Reaction, Intermediate, "feeling weird", SI thoughts., 03/06/19) SHAGGY MASON MD April 12, 2019 13:55
--- NOTE | 2019-05-03 21:39 | RO ---
DATE OF PROCEDURE: 04/02/2019 PREPROCEDURE DIAGNOSIS: Left lower extremity cellulitis, left foot gangrene. POSTPROCEDURE DIAGNOSIS: Left lower extremity cellulitis, left foot gangrene. PROCEDURE: Guillotine left below-knee amputation. SURGEON: Amira Estrella MD DREDGE BOAT ENGINEER: None. ANESTHESIA: Local monitored anesthesia care (MAC) and ankle block. INDICATIONS: The patient is a 68-year-old female with extensive necrosis and gangrene of the left foot who now has extending cellulitis in the left calf and wanted a guillotine amputation with future formal left [id number] amputation. Risks, benefits and alternative options were discussed with the patient. ESTIMATED BLOOD LOSS: 50 mL. IV FLUIDS: 100 mL. DESCRIPTION OF PROCEDURE: The patient was taken to the operating room, placed supine on the operating room table where I performed an ankle block after which a guillotine amputation was performed just above the medial and lateral malleoli using a scalpel and a bone saw. Wet-to-dry dressings were then applied. The patient tolerated the procedure well. All instrument , sponge, and needle counts were correct at the end of the case. The patient was transferred to the recovery room in stable condition.
--- NOTE | 2019-05-04 07:54 | REPIR ---
DATE OF PROCEDURE: 03/29/2019 ATTENDING SURGEON: Dr. Amira Estrella ASSISTANTS: Merissa Dasilva and Aubrie Rosa PREOPERATIVE DIAGNOSES: Nonhealing right and left foot ulcers. End-stage renal disease. Diabetes mellitus. POSTOPERATIVE DIAGNOSES: Nonhealing right and left foot ulcers. End-stage renal disease. Diabetes mellitus. PROCEDURE: Aortogram. Iliofemoral angiogram. Selective left common femoral artery catheter placement with left lower extremity angiogram. Right lower extremity angiography via the right common femoral sheath. MYNX closure of the right common femoral arteriotomy. INDICATION: Patient is a 68-year-old female with ulcers on both lower extremities which are nonhealing. The patient will undergo angiography with possible angioplasty, stent and/or atherectomy. ANESTHESIA: Local with 10 mL of a local. FLUORO TIME: 3.6 minutes. CONTRAST: 22 mL of ISOVUE-300. HEPARIN: None. COMPLICATIONS: None. DRAINS: None. SPECIMENS: None. IMPLANTS: Right femoral arteriotomy closure with a MYNX closure device. PROCEDURE: Patient was taken to the angiography suite, placed on the angiography room table and prepped and draped in a standard surgical fashion. The right common femoral artery was cannulated, catheter placed in the aorta and aortogram was performed. Catheter was pulled down to the bifurcation of the iliac arteries and an iliofemoral angiogram was performed. Catheter was directed over the bifurcation of the iliac arteries, placed in the left common femoral artery and a left lower extremity angiogram was performed. A right lower extremity angiogram was then performed through the right common femoral sheath. The sheath was removed and a MYNX closure device used close the arteriotomy in the right common femoral artery. Dressings were applied. The patient tolerated procedure well. The patient was transferred to holding area and subsequently to the floor in stable condition.
--- NOTE | 2019-05-04 10:56 | RO ---
DATE OF PROCEDURE: 04/06/2019 PREOPERATIVE DIAGNOSIS: Left foot gangrene status post left guillotine below-knee amputation. POSTOPERATIVE DIAGNOSIS: Left foot gangrene status post left guillotine below-knee amputation. PROCEDURE: Completion left below-knee amputation. ATTENDING SURGEON: Dr. Amira Estrella IT PROGRAM AUDITOR: None. INDICATION: The patient is a 68-year-old female who underwent a guillotine amputation due to gangrene of the left foot and will now undergo a completion left below-knee amputation as her cellulitis in the left lower extremity has resolved. ANESTHESIA: Local MAC. ESTIMATED BLOOD LOSS: 150 mL. IV FLUIDS: 425 mL. SPECIMEN: Left lower extremity. HEPARIN: None. COMPLICATIONS: None. DRAINS: None. IMPLANTS: None. DESCRIPTION OF PROCEDURE: The patient was taken to the operating room, placed supine on the operating room table and then prepped and draped in a standard surgical fashion. A posterior flap was created approximately 10 cm distal to the tibial tuberosity. The bone was transected 10 cm distal to the tibial tuberosity and the posterior flap was approximated to the anterior fascia using #2-0 Vicryl suture in interrupted fashion once hemostasis was obtained. The skin was then stapled. Dressings were applied. The patient tolerated the procedure well. All instrument, sponge and needle counts were correct at the end of the case. There were no complications. Dr. Estrella was present for and directed the entire case. The patient was transferred to the recovery room awake, alert, extubated and in stable condition.
== END 2019-04-12 12:19 | DRG 616 ==
LOC: M ED 15:05 → M ED INP 20:06 → M MS5PR 03-22 13:40 → M PCU 04-06 16:50 → M MSPAV 04-09 12:22
PROVIDERS: ADMIT Internal Medicine; ATTEND Internal Medicine
PROC: 0W9F3ZZ Drainage of Abdominal Wall, Percutaneous Approach (ICD-10-PCS; 2019-03-23)
PROC: 0JBR0ZZ Excision of Left Foot Subcutaneous Tissue and Fascia, Open Approach (ICD-10-PCS; 2019-03-27)
PROC: 0W9F3ZZ Drainage of Abdominal Wall, Percutaneous Approach (ICD-10-PCS; 2019-03-29)
PROC: 0Y6N0Z0 Detachment at Left Foot, Complete, Open Approach (ICD-10-PCS; principal; 2019-04-02 08:00)
PROC: 30233N1 Transfusion of Nonautologous Red Blood Cells into Peripheral Vein, Percutaneous Approach (ICD-10-PCS; 2019-04-05)
PROC: 0Y6J0Z3 Detachment at Left Lower Leg, Low, Open Approach (ICD-10-PCS; 2019-04-06)
DX: E11.621 Type 2 diabetes mellitus with foot ulcer (principal); I50.33 Acute on chronic diastolic (congestive) heart failure; L03.116 Cellulitis of left lower limb; I13.2 Hypertensive heart and chronic kidney disease with heart failure and with stage 5 chronic kidney disease, or end stage renal disease; R18.8 Other ascites; N18.6 End stage renal disease; K76.0 Fatty (change of) liver, not elsewhere classified; R09.02 Hypoxemia; Z79.899 Other long term (current) drug therapy; Z79.4 Long term (current) use of insulin; Z88.8 Allergy status to other drugs, medicaments and biological substances; K21.9 Gastro-esophageal reflux disease without esophagitis; E03.9 Hypothyroidism, unspecified; F41.9 Anxiety disorder, unspecified; G47.00 Insomnia, unspecified; N25.81 Secondary hyperparathyroidism of renal origin; D63.1 Anemia in chronic kidney disease; Z91.19 Patient's noncompliance with other medical treatment and regimen; K74.69 Other cirrhosis of liver; I25.10 Atherosclerotic heart disease of native coronary artery without angina pectoris; E11.40 Type 2 diabetes mellitus with diabetic neuropathy, unspecified; G25.81 Restless legs syndrome; Z95.2 Presence of prosthetic heart valve; I27.20 Pulmonary hypertension, unspecified

== ENCOUNTER → 2019-03-27 | Outpatient (CLI) | payer MEDICARE ==
[~2019-03-27] MED LIST changes: +APAP325T4 PO; +BUPIVACAINE HCL 0.5% 10 ML VIAL As Ordered ONE; +CALC200T15 PO; -CALC667T PO; +CALC667T2 PO; +CALCI50TA PO; +DAKINSHS TOP; -DULO1CAP2 PO; +DULO1CAP5 PO; +HEPA500011 SC; +ISOVUE-300 61% 100ML VIAL (Q9967) As Ordered ONE; +LIDOCAINE 1% MDV 20ML VIAL As Ordered ONE; +LIDOCAINE 2% INJ 100 MG/5 ML SDV (FOR ANES.) As Ordered ONE; +LINE1TAB6 PO; +LOPE2CA PO; +METO1TAB87 PO; +MIDAZOLAM INJ 2 MG/2 ML VIAL (J2250) As Ordered ONE; +OXYC-403 PO; +OYST500T13 PO; -OYST500T78 PO; +PERCOCET 5MG/325MG TAB As Ordered ONE; +PROP10TA56 PO; +ROPI1TAB PO; +SILV50CR EXT; +TRAZ-189 PO; +TRAZ1TAB10 PO; +VELP5CHW PO; +fentaNYL 100 MCG/2 ML INJECTION (J3010) As Ordered ONE
== END ==
LOC: M IRPRO 10:00
PROVIDERS: ATTEND Surgery Vascular Surgery
DX: N18.6 End stage renal disease (principal); Z53.9 Procedure and treatment not carried out, unspecified reason

== ENCOUNTER 2019-04-12 09:35 | Inpatient (IN) | payer MEDICARE ==
[~2019-04-12] VITALS: Ht 157.5 cm; Wt 80.8 kg
[~2019-04-12 09:35] MED LIST changes: -APAP325T4 PO; -BUPIVACAINE HCL 0.5% 10 ML VIAL As Ordered ONE; -CALC200T15 PO; +CALC667T PO; -CALC667T2 PO; -CALCI50TA PO; -DAKINSHS TOP; +DULO1CAP2 PO; -DULO1CAP5 PO; -HEPA500011 SC; -ISOVUE-300 61% 100ML VIAL (Q9967) As Ordered ONE; -LIDOCAINE 1% MDV 20ML VIAL As Ordered ONE; -LIDOCAINE 2% INJ 100 MG/5 ML SDV (FOR ANES.) As Ordered ONE; -LINE1TAB6 PO; -LOPE2CA PO; -METO1TAB87 PO; -MIDAZOLAM INJ 2 MG/2 ML VIAL (J2250) As Ordered ONE; -OXYC-403 PO; -OYST500T13 PO; +OYST500T78 PO; -PERCOCET 5MG/325MG TAB As Ordered ONE; -PROP10TA56 PO; -ROPI1TAB PO; -SILV50CR EXT; -TRAZ-189 PO; -TRAZ1TAB10 PO; -fentaNYL 100 MCG/2 ML INJECTION (J3010) As Ordered ONE
[2019-04-12] MEDS ORDERED: OXYC-403 PO (11:03)
[2019-04-12] MEDS ORDERED: DEXTROSE 50% 50 ML SYRINGE IV PRN (12:15)
[2019-04-12] MEDS ORDERED: GLUCOSE 4 GM CHEW TABLET PO PRN (12:15)
[2019-04-12] MEDS ORDERED: ONDANSETRON 4 MG TAB (S0181) PO PRN (12:15)
[2019-04-12] MEDS ORDERED: PATIROMER SORBITEX CALCIUM 8.4 GM POWDER PACKET (VELTASSA) PO PRN (12:15)
[2019-04-12] MEDS ORDERED: VANCOMYCIN HCL 750 MG in IV FLUID PLACE HOLDER 1 EA IV SCH (12:15)
[2019-04-12] MEDS ORDERED: MAALOX 30 ML SUSP *UDC PO PRN (12:15)
[2019-04-12] MEDS ORDERED: GLUCAGON FOR INJ 1 MG VIAL (J1610) SC PRN (12:15)
[2019-04-12] MEDS: CALCIUM CARBONATE 500 MG CHEW U/D PO SCH ×2 (12:30→18:23)
[2019-04-12 12:58] VITALS: BP 108/55
--- NOTE | 2019-04-12 12:59 | HPEPDOC ---
Talent Coordinator Note DATE OF ADMISSION: April 12, 2019 at 12:25 SOURCE OF ADMISSION INFORMATION:[facility] records and patient CHIEF COMPLAINT: left BKA HISTORY OF PRESENT ILLNESS: 68F pmh ESRD on HD, cirrhosis requiring paracentesis q 2weeks, diastolic HF, CAD s/p stents, hyperparathyroidism, hypothyroidism, anxiety/depression, chronic anemia, GERD, DM2, who had a left foot heel ulcer that was being treated by Dr. Baeza since August 2018 presented to [facility] ED on 03/21/19 having missed her dialysis and was admitted for concern for fluid overload and worsening foot infection. Foot X-ray revealed, Diffuse soft tissue swelling. Advanced midfoot neuropathic arthropathy. Large deep volar and medial soft tissue ulcer. This has enlarged compared to the February 02, 2019 study. No focal bony destructive lesion. Her left foot ulcer was debrided by Dr. Baeza and wound cultures sent, however MRI on 03/24/19 showed, Charcot footDiffuse subchondral marrow edema is seen in the distal tibia and fibula as well as the tarsal bones, unchanged. No definite acute osteomyelitis. Diffuse edema and probable cellulitis. Large joint effusion at the tibiotalar joint. Complex fluid collection centered between the second and third metatarsals extends into the plantar soft-tissues along the flexor tendons and also extends into the dorsal soft-tissues. There may be internal foci or air and therefore this may represent an abscess. Vascular surgery was consulted for possible intervention and patient underwent a 2nd and 3rd toe amputation on 03/27/19, a guillotine amputation on 04/03/19, and later a BKA on 04/06/[address] Estrella. She was maintained on IV antibiotics, continued to get dialysis and rounds of paracentesis, last one on 04/05/19. She was evaluated by therapy, found to have significant impairments in ADLs and mobility and deemed medically appropriate for discharge to ARU on 04/12/19. REVIEW OF SYSTEMS: The following is a completed review of systems and has been reviewed. Review of systems otherwise unremarkable. PAIN: Patient self reports no pain at rest EYES: Negative for recent vision loss EARS, NOSE, & THROAT: denies dysphagia, rhinorrhea, hearing loss CARDIOVASCULAR: denies chest pain, +exertional dyspnea PULMONARY: Negative. Denies shortness of breath except on exertion GASTROINTESTINAL: + ascites GENITOURINARY: Negative for dysuria MUSCULOSKELETAL: +arthritis, right foot toe amputations, left BKA NEUROLOGICAL: peripheral neuropathy HEMATOLOGICAL: +anemic SKIN: right D1 ischemic ulcer, left BKA incision with blisters, purple-colored patch just beneath incision line PSYCHIATRIC:+anxious All other review of systems found to be negative. PAST MEDICAL HISTORY: as per HPI PAST SURGICAL HISTORY: multiple LE toe amputations, 4 cardiac stent, left AVF, appendectomy, hysterectomy, bilateral cataract ALLERGIES: Please see below. MEDICATIONS: Please see below. SOCIAL HISTORY: lives alone, recently , chronic opioid use, no ETOH or smoking DIET: renal PHYSICAL EXAMINATION: VITAL SIGNS: Please see below. GENERAL: Pleasant and cooperative. No acute distress. smiling HEENT: PERRL. Extraocular movements intact. Clear conjunctiva CARDIOVASCULAR: Regular rate and rhythm. No murmurs, rubs, or gallops LUNGS: Clear to auscultation bilaterally. No wheezes. No rhonchi ABDOMEN: Soft, very distended, however minimal pain with palpation, no guarding, Positive bowel sounds. NEUROLOGICAL: Alert and oriented times three. Cranial nerves II through XII grossly intact. Sensation grossly intact in UE, diminished in bilat LE EXTREMITIES: 5-\\5 strength bilateral upper extremities. 5-\\5 strength right lowe r extremity. 5-/5 strength in left hip flexion knee extension and knee flexion SKIN: left forearm AVF, right calf edematous with erythema (negative Homans) left BKA incision with blisters, purple-colored patch just beneath incision line IMAGING: Imaging documentation personally reviewed by record FUNCTIONAL STATUS: Premorbid: Mod-Independent with all activities of daily life as well as mobility able to ambulate short household distances and use a scooter On Admission: Total assist for functional transfers, min assist for upper body dressing, Contact-guard to min-assist for bed mobility GOALS: Mod-Independent with mobility with wheel chair and short household distances with RW, Mod-I for bathing, dressing, toileting, bed mobility, residual limb care, medical optimization, assess for DMEs, caregiver training. ASSESSMENT:-year-old 68 with past medical history of ESRD on HD and PVD who presents status post left BKA PLAN: 1. Rehab: OT/PT, assess for DME needs 2. Vascular- s/p left BKA on 04/06/[address] Estrella, was on IV Zosyn and Vanco- c/u Vanco, concern for poor wound healing, vascular aware, no change in plan of care for now 3. Skin: left BKA with blisters and signs of poor circulation- c/u TID dressing changes, avoid use of hangar orthotic as this creates friction and moisture as does not fit securely to patient's limb 4. CArdiac: pmh CAD s/p 4 stents, medicine consulted, c/u meds -pmh diastolic CHF- on dialysis with renal monitoring fluid balance 5. Resp: requiring supplemental oxygen due to poor ventilation in setting of ascites, encourage incentive spirometry and monitor for infection 6. Renal: ESRD on HD M/W/- renal consulted 7. GI: pmh cirrhosis with ascites, was getting paracentesis q2 weeks prior to hospitalization, concern for recent bleeding on last procedure 04/05/19 and plavix not held since, will hold and schedule for Tuesday-medicine's assistance coordinating this appreciated -protonix and TUMS for dyspepsia and ppx 8. DVT pppx: heparin 9. Pain: c/u long-acting oxycodone and tylenol- c/u gabapentin, AVOID adding anymore opioids to regimen as patient as fluctuating levels of arousal throughout the day and needs to be optimized for therapy 10. PScyh: pmh anxiety/depression, c/u home meds 11. Dispo: TBD POST ADMISSION PHYSICIAN EVALUATION: Medical and functional status: Description of medical status, medical assessment: As above. Rehabilitation diagnosis and current and prior cold morbid medical conditions as above. Risk of complications and plans to mitigate them as above. Description of functional status current status is as above. Prior status as above. Status compared to preadmission: There are no clinically significant differences between the patient's current status and the information described on the preadmission screening document. Treatment plan anticipated: Treatment plan is as described above. Required disciplines including physical therapy, occupational therapy, others as noted above Intensity of services: 3 hours a day, 6 days a week. Special considerations: There are no specific special or safety considerations that would likely preclude immediate implementation of an intensive rehabilitation program or subsequently influence the plan of care. ATTESTATION: Considering all the information above, it is my best judgment that this patient requires intensive rehabilitation therapy as described above and an inpatient hospital environment due to the complexity of nursing, medical, and rehabilitation needs required by the patient. Furthermore, this patient can reasonably be expected to participate in an benefit from an inpatient rehabilitation stay with an interdisciplinary team approach to the delivery of rehabilitation care under the direction and supervision of rehabilitation physician. PROGNOSIS: fair ESTIMATED LENGTH OF STAY:18-21 days. PROJECTED DISCHARGE DESTINATION: Home with family support and any durable medical equipment required to increase functional safety and mobility TIME SPENT COUNSELING AND COORDINATING INITIAL CARE: Greater than 70 minutes. Vital Signs Vital Signs Date Time Temp Pulse Resp B/P (MAP) Pulse Ox O2 Delivery O2 Flow Rate FiO2 04/12/19 12:58 97.1 74 18 108/55 (72) 98 2.0 Home Medications Scheduled Calcium Carbonate (Tums) 500 Mg Chw, 500 MG PO WM, (Reported) Clopidogrel Bisulfate (Plavix) 75 Mg Tab, 75 MG PO DAILY, (Reported) HAS NOT TAKEN SINCE 03/16/19 - SCHEDULED FOR PARACENTESIS ON 03/22/19 Duloxetine Hcl (Duloxetine HCl) 30 Mg Cap, 30 MG PO DAILY, (Reported) Gabapentin (Gabapentin) 100 Mg Cap, 300 MG PO BID, (Reported) Hydralazine HCl (Hydralazine HCl) 25 Mg Tab, 25 MG PO TID, (Reported) Insulin Detemir (Levemir) 1 Units/0.01 Ml Susp, 20 UNITS SC QHS, (Reported) Insulin Lispro (Humalog) 100 Unit/Ml Inj, 1 DOSE SC AC, (Reported) PER SLIDING SCALE Levothyroxine Sodium (Synthroid) 125 Mcg Tab, 125 MCG PO DAILY, (Reported) Losartan Potassium (Losartan Potassium) 50 Mg Tab, 50 MG PO DAILY, (Reported) Metoprolol Succinate (Metoprolol Succinate) 50 Mg Tab, 50 MG PO BID, (Reported) Oxycodone HCl (Oxycodone HCl ER) 10 Mg Tab.er.12h, 10 MG PO BID Pantoprazole Sodium (Pantoprazole Sodium) 40 Mg Tab, 40 MG PO DAILY, (Reported) Ropinirole HCl (Ropinirole HCl) 2 Mg Tab, 4 MG PO BID, (Reported) Silver Sulfadiazine (Ssd) 1 % Cre, 1 DOSE TOP DAILY, (Reported) WITH DRESSING CHANGES ON FOOT Simvastatin (Simvastatin) 20 Mg Tab, 20 MG PO QHS, (Reported) Sucroferric Oxyhydroxide (Velphoro) 500 Mg Tab.chew, 500 MG PO WM, (Reported) NEW OF 03/14/19 - CALCIUM ACETATE MAKE HER VOMIT DUE TO CAPSULES BEING TOO LARGE, TOOK VELPHORO FOR THE FIRST TIME 03/20/19 AND STATES IT MADE HER VERY LATHARGIC ALL DAY Trazodone HCl (Trazodone HCl) 100 Mg Tab, 200 MG PO QHS, (Reported) Scheduled PRN Alprazolam (Alprazolam) 0.25 Mg Tab, 0.25 MG PO BID PRN for ANXIETY, (Reported) Nystatin (Nystatin Oint) 30 Gm Oint, 1 DOSE TOP BID PRN for REDNESS/IRRITATION, (Reported) APPLY TO ABDOMINAL FOLDS Oxycodone HCl/Acetaminophen (Percocet 5-325 mg Tablet) 1 Tab Tab, 1 TAB PO DAILY PRN for PAIN, (Reported) Patiromer Calcium Sorbitex (Veltassa) 8.4 Gm Pow, 8.4 GM PO ASDIRECTED PRN for MISSING DIALYSIS, (Reported) WAS SUPPOSE TO TAKE 03/19/19 BUT DID NOT TAKE Allergies Coded Allergies: pregabalin (Verified Adverse Reaction, Intermediate, "feeling weird", SI thoughts., 03/06/19) A-FIB/CHADSVASC A-FIB History Current/History of A-Fib/PAF?: No WALTER BARRERA MD April 12, 2019 12:59
[2019-04-12] MEDS ORDERED: VANCOMYCIN HCL 750 MG, VIAL MATE ADAPTER 1 EACH in D5W 250 ML IV SCH (13:15)
[2019-04-12] MEDS: **VANCO AFTER HD** MISC XX SCH (15:20)
--- NOTE | 2019-04-12 15:24 | CR.PDOC ---
General Date of Consultation: April 12, 2019 Referring Provider: WALTER BARRERA MD Consultation REASON FOR CONSULTATION/CHIEF COMPLAINT: Medical management post L. BKA HISTORY OF PRESENT ILLNESS: Patient is 68-year-old female with past medical history of left foot heel ulcer status post second and third toe amputation followed by [facility] 04/06/19, ESRD on HD MWF, Cirrhosis requiring paracentesis every 2 week as outpatient, CAD, HFpEF, apple thyroidism, hyperparathyroidism, diabetes mellitus and GERD is admitted to ARU following recent admission for L. foot heel ulcer resulting in L. BKA. Patient has had a L. foot ulcer since 2018 and has been following with Dr. Baeza for debridement and care prior to this admission. She presented to [facility] 03/21 with the foot ulcer and initially underwent a 2nd and 3rd toe amputation with Dr. Estrella, subsequently required a L. BKA on 04/06/19. She has been on IV abx for foot infection and getting HD as scheduled. In addition, she also has been getting paracentesis for her Ascites almost on a weekly basis compare to q2 weeks as outpatient. She currently reports severe pain in her L. leg as she had bumped it prior to transporting to ARU but otherwise denies any other complaints. ALLERGIES: Please see below. HOME MEDICATIONS: Please see below. PAST MEDICAL HISTORY: As per HPI PAST SURGICAL HISTORY: Appendectomy Hysterectomy Bilateral cataract surgery Left foot heel ulcer debridement Left arm AV fistula surgery L. 2nd and 3rd toe amputation 03/27/19 L. Guillotine amputation 04/03/19 L. BKA 04/06/19 FAMILY HISTORY: None reported, stated that she doesn't know. SOCIAL HISTORY: Denies alcohol or tobacco use. Opioid use for pain. REVIEW OF SYSTEMS: 10 point review of system negative except as stated in HPI PHYSICAL EXAMINATION: VITAL SIGNS: Please see below. General: Moderate distress, Alert Eyes: Normal sclera, EOMI, ALYCIA HENT: Atraumatic, neck supple, moist mucous membranes Cardiovascular: Normal rate, normal rhythm. No murmurs appreciated. Pulmonary: Clear to auscultation b/l, no wheezing GI: Soft, nontender, nondistended MSK: s/p L. BKA, LLE with overlying dressing and immobilization device. Skin: Warm and dry Neuro: CN grossly intact. No focal deficits. Strengths equal b/l. Psych: oriented x 3 LABORATORY DATA: Please see below. ASSESSMENT/PLAN: 1. L. BKA - L. foot ulcer s/p debridement, 2nd/3rd toe amputation followed by Guillotine amputation and subsequently BKA 04/06/19. - Pain control. - PT/OT. - Continue with Abx for now. Zosyn discontinued. Vancomycin 750 mg at HD for total 2 weeks. Started 04/02/19, to end 04/16/19. - Vascular following. 2. ESRD on HD - Continue HD as scheduled MWF. - Nephrology consulted. - Monitor electrolytes. 3. Cirrhosis requiring frequent Paracentesis - Patient does not know underlying etiology. No hx of alcohol abuse. - Has been getting paracentesis every 2 week as outpatient and almost weekly at [facility]. - Last paracentesis 04/05/19, supposed to go 04/12/19 but Plavix was given yesterday. - Continue holding Plavix for now and planned for Tuesday at this time. - Has been speaking to Hellen in IR office, has been very helpful. Will continue to keep in touch with her. - Will give Albumin with paracentesis. 6-8g/L of 25%. 4. HFpEF - c/w home medications. - Optimize fluid balance through HD. 5. Chronic anemia - s/p 1 pRBC 04/09/19. - Monitor daily CBC. Venofer and Aranesp per nephro. 6. Hypothyroidism - c/w home dose synthroid. 7. DM - Accuchecks. Diabetic diet. - c/w Levemir + ISS. 8. CAD - s/p ASA and Plavix. - Hold plavix for 4 days prior to each planned Paracentesis. - Patient is at risk either way, bleed or from CAD point of view with Plavix. Vital Signs/I&O Vital Signs Date Time Temp Pulse Resp B/P (MAP) Pulse Ox O2 Delivery O2 Flow Rate FiO2 04/12/19 12:58 97.1 74 18 108/55 (72) 98 2.0 Allergies Coded Allergies: pregabalin (Verified Adverse Reaction, Intermediate, "feeling weird", SI thoughts., 03/06/19) Home Medications Scheduled Calcium Carbonate (Tums) 500 Mg Chw, 500 MG PO WM, (Reported) Clopidogrel Bisulfate (Plavix) 75 Mg Tab, 75 MG PO DAILY, (Reported) HAS NOT TAKEN SINCE 03/16/19 - SCHEDULED FOR PARACENTESIS ON 03/22/19 Duloxetine Hcl (Duloxetine HCl) 30 Mg Cap, 30 MG PO DAILY, (Reported) Gabapentin (Gabapentin) 100 Mg Cap, 300 MG PO BID, (Reported) Hydralazine HCl (Hydralazine HCl) 25 Mg Tab, 25 MG PO TID, (Reported) Insulin Detemir (Levemir) 1 Units/0.01 Ml Susp, 20 UNITS SC QHS, (Reported) Insulin Lispro (Humalog) 100 Unit/Ml Inj, 1 DOSE SC AC, (Reported) PER SLIDING SCALE Levothyroxine Sodium (Synthroid) 125 Mcg Tab, 125 MCG PO DAILY, (Reported) Losartan Potassium (Losartan Potassium) 50 Mg Tab, 50 MG PO DAILY, (Reported) Metoprolol Succinate (Metoprolol Succinate) 50 Mg Tab, 50 MG PO BID, (Reported) Oxycodone HCl (Oxycodone HCl ER) 10 Mg Tab.er.12h, 10 MG PO BID, #20 Pantoprazole Sodium (Pantoprazole Sodium) 40 Mg Tab, 40 MG PO DAILY, (Reported) Ropinirole HCl (Ropinirole HCl) 2 Mg Tab, 4 MG PO BID, (Reported) Silver Sulfadiazine (Ssd) 1 % Cre, 1 DOSE TOP DAILY, (Reported) WITH DRESSING CHANGES ON FOOT Simvastatin (Simvastatin) 20 Mg Tab, 20 MG PO QHS, (Reported) Sucroferric Oxyhydroxide (Velphoro) 500 Mg Tab.chew, 500 MG PO WM, (Reported) NEW OF 03/14/19 - CALCIUM ACETATE MAKE HER VOMIT DUE TO CAPSULES BEING TOO LARGE, TOOK VELPHORO FOR THE FIRST TIME 03/20/19 AND STATES IT MADE HER VERY LATHARGIC ALL DAY Trazodone HCl (Trazodone HCl) 100 Mg Tab, 200 MG PO QHS, (Reported) Scheduled PRN Alprazolam (Alprazolam) 0.25 Mg Tab, 0.25 MG PO BID PRN for ANXIETY, (Reported) Nystatin (Nystatin Oint) 30 Gm Oint, 1 DOSE TOP BID PRN for REDNESS/IRRITATION, (Reported) APPLY TO ABDOMINAL FOLDS Oxycodone HCl/Acetaminophen (Percocet 5-325 mg Tablet) 1 Tab Tab, 1 TAB PO DAILY PRN for PAIN, (Reported) Patiromer Calcium Sorbitex (Veltassa) 8.4 Gm Pow, 8.4 GM PO ASDIRECTED PRN for MISSING DIALYSIS, (Reported) WAS SUPPOSE TO TAKE 03/19/19 BUT DID NOT TAKE SCOOTER SLATER MD April 12, 2019 15:24
[2019-04-12] MEDS ORDERED: MORPHINE 4 MG/ML 1ML VIAL/SYRINGE (J2270) IV PRN (16:00)
[2019-04-12] MEDS ORDERED: traZODone 50 MG TAB PO PRN (16:00)
[2019-04-12] MEDS: HumaLOG INSULIN (NovoLOG) PER UNIT SC SCH ×2 (18:24→20:25)
[2019-04-12 20:00] VITALS: BP 121/63
[2019-04-12] MEDS: LEVEMIR (INSULIN DETEMIR) 1 UNITS/0.01ML SC SCH (20:26)
[2019-04-12] MEDS: SIMVASTATIN 20 MG TAB PO SCH (21:39)
[2019-04-12] MEDS: HEPARIN SOD (PORCINE) 5000 UNITS/ML VIAL SC SCH (21:39)
[2019-04-12] MEDS: GABAPENTIN 300 MG CAP PO SCH (21:39)
[2019-04-12] MEDS: rOPINIRole 1MG TAB PO SCH (21:39)
[2019-04-12] MEDS: SENNA 8.6 MG TAB (SENOKOT) PO SCH (21:39)
[2019-04-12] MEDS: DOCUSATE SODIUM 100 MG CAP PO SCH (21:39)
[2019-04-12] MEDS: METOPROLOL SUCC *XL* 25MG TAB (TopROL *XL*) PO SCH (21:39)
[2019-04-12] MEDS: oxyCODONE 10 MG CR TAB PO SCH (21:44)
[2019-04-12] MEDS: EUCERIN 120GM CREAM TOP SCH (21:46)
[2019-04-13] MEDS: LEVOTHYROXINE 125MCG TABLET (0.125MG) PO SCH (05:32)
[2019-04-13 06:00] VITALS: BP 142/67
[2019-04-13 06:47] LABS: BASO # 0.1 10^3/uL (0.0-0.2); BASO % 0.6 % (0.0-1.0); EOS # 0.4 10^3/uL (0.0-0.50); EOS % 4.5 % (0.0-3.0); HEMATOCRIT 30.5 % (36.0-47.0); LYMPH # 1.2 10^3/uL (1.5-4.5); LYMPH % 13.5 % (24.0-44.0); MEAN CORPUSCULAR HEMOGLOBIN 28.9 pg (27.0-33.0); MEAN CORPUSCULAR HGB CONC 29.5 g/dl (32.0-36.5); MEAN CORPUSCULAR VOLUME 98.1 fl (80.0-96.0); MONO # 1.4 10^3/uL (0.0-0.8); MONO % 15.9 % (0.0-5.0); NEUTROPHILS # 5.8 10^3/uL (1.8-7.7); NEUTROPHILS % 63.8 % (36.0-66.0); PLATELET COUNT, AUTOMATED 190 10^3/uL (150-450); RED BLOOD COUNT 3.11 10^6/uL (4.00-5.40); WHITE BLOOD COUNT 9.1 10^3/uL (4.0-10.0)
[2019-04-13 07:04] LABS: ALBUMIN 1.4 GM/DL (3.2-5.2); BILIRUBIN,TOTAL 0.4 MG/DL (0.2-1.0); CALCIUM LEVEL 8.2 MG/DL (8.8-10.2); CREATININE FOR GFR 5.16 MG/DL (0.55-1.30); GLOMERULAR FILTRATION RATE 8.8 (>39); POTASSIUM SERUM 4.3 MEQ/L (3.5-5.1); TOTAL PROTEIN 5.8 GM/DL (6.4-8.2)
[2019-04-13] MEDS: ACETAMINOPHEN TAB 650MG DOSE (2X325MG) PO PRN ×2 (07:36→23:13)
--- NOTE | 2019-04-13 08:01 | IPNPDOC ---
Text Note Date of Service The patient was seen on 04/12/19. NOTE ephrology Service: Subjective: Patient seen and examined at bedside. Was lying in bed comfortably. Mentating appropriately. Is status-post guilotine amputation of L foot post-operative day #[address] Estrella on 04/02/19 and now status-post L BKA postoperative day #6 today. Pain is well controlled. Is afebrile and hemodynamically stable today. Blood pressures have been stable. Denies fevers, chills, chest pain, SOB, nausea, vomiting, abdominal pain. Admits to distension of abdomen. Previously, dialyzed on 04/11/19 with 1000 mL removed. Objective: Vitals: T: 97.1 BP: 108/55 RR: 18 P: 74 O2 Saturation: 98% on 2 liters NC Intake: 470 ml Output: 1000 mL Balance: (-) 530 ml Urine Total: 0 mL General: AAO x 3. Adult obese female lying comfortably in bed in NAD. Speaks very softly. Pleasant and cooperative. Answering questions appropriately. Mentating well. HEENT: Head: normocephalic, atraumatic. Neck: Supple. Respiratory: Clear to auscultation bilaterally with no wheezes, rales, or rhonchi. Cardiovascular: Normal S1S2, regular rate and rhythm, with no murmurs, rubs or gallops. Abdomen: Soft, nontender, distended, ascites present and increased since yesterday. (+)fluid wave. Extremities: Dressing on L leg status-post L BKA. L leg dressing appears clean, dry, intact. (+)2 pitting edema of RLE and LLE. Vascular: LUE fistula is present. Musculoskeletal: Moves all 4 extremities. Neurological: Mentating appropriately. No focal neurologic deficits on inspection. Laboratory data: CBC: WBC 8.6, Hgb 9.1, Platelets 202. BMP: Na 138, K 4.1, BUN 35, Cr 4.20, CO2 28, glucose 117, Ca 8 Current Inpatient Medications: Vancomycin 750 mg IV HD Zosyn 2.25 mg/dextrose IV HD Venofer (Iron) 100 mg IV HD Ropinirole 1 mg PO QHS Aranesp (Darbepoetin Yordan) 100 mcg HD IV Metoprolol succinate 25 mg PO BID Veltassa (Patiromer) 8.4 gm as directed PRN PO missing dialysis No other change in the medications today as compared with yesterday. Assessment/Plan: 1. End-stage renal disease on hemodialysis on Tuesday, Tuesday, Tuesday sched ule: Next dialysis will be Tuesday. BPs are stable and patient is hemodynamically stable at this point. Hgb is 9.1 today. Her electrolytes are acceptable and her fistula is in good use. On veltassa for hyperkalemia PRN. Continue to monitor Intake and Output as well as BMP/electrolytes. 2. Hypertension: BPs stable today. Continue metoprolol with hold parameters in place due to past episodes of hypotension. Will continue to monitor. 3. Recurrent ascites status post paracentesis x3 on this admission: Pa racentesis only performed 1-2 times per month in outpatient setting and needs to have albumin transfusion with each paracentesis. Plavix does need to be held for several days prior to each tap and she does have a history of coronary artery disease. Will need to have paracentesis either today or tomorrow and will definitely need albumin transfusion if gets paracentesis. This needs to be arranged sooner rather than later. 4. Diastolic congestive heart failure with exacerbation: According to most recent echocardiogram, patient has grade 1 diastolic dysfunction. Has hx of chronic fluid overload secondary to noncompliance in the outpatient office. Patient also noncompliant with her fluid restrictions. Patient also has hx of recurrent ascites. Have to be cautious with removal of fluid during dialysis secondary to patient's hx of recent soft blood pressures. Patient's volume status is stable and acceptable today. 5. Anemia secondary to end-stage renal disease, iron deficiency and chronic inflammation: Hemoglobin is 9.1 (L). Continue Aranesp and Venofer 100 mg HD IV. Continue to monitor CBC. 6. Left foot abscess and Charcot foot status-post guilotine amputation of L foot post-operative day #[address] Estrella on 04/02/19 vascular surgery and L BKA postoperative day #6 today. Is doing well postoperatively and pain is well controlled at this time. Mentating appropriately. Is now under Dr. Hilda Cotton care for PT/rehab. Continues on renally dosed antibiotics managed as per the primary team. My preceptor for this patient encounter was Dr. Maia Grullon, and was physically present in the building during the encounter and was fully available. As needed, all aspects of the patient interview, examination, medical decision making process, and medical care plan development were reviewed and approved by the preceptor. Preceptor is aware and concurs with the plan as stated in the body of this note and will attest to such by his/her cosignature. A-FIB/CHADSVASC A-FIB History Current/History of A-Fib/PAF?: No Current Oral Anticoagulant The: No VS,Fishbone, I+O VS, Fishbone, I+O Vital Signs Date Time Temp Pulse Resp B/P (MAP) Pulse Ox O2 Delivery O2 Flow Rate FiO2 04/12/19 21:44 17 04/12/19 21:39 67 121/63 04/12/19 20:30 2.0 04/12/19 20:00 97.7 97 JENISE LUCERO April 12, 2019 23:18
[2019-04-13] MEDS ORDERED: DARBEPOETIN 100 MCG/0.5 ML *DIALYSIS* SYRINGE (J0882) IV SCH (08:30)
[2019-04-13] MEDS: HEPARIN SOD (PORCINE) 5000 UNITS/ML VIAL SC SCH ×2 (08:35→22:41)
[2019-04-13] MEDS: CALCIUM CARBONATE 500 MG CHEW U/D PO SCH ×3 (08:35→18:32)
[2019-04-13] MEDS: DULoxetine 30 MG CAP (CYMBALTA) PO SCH (08:36)
[2019-04-13] MEDS: PANTOPRAZOLE 40MG TAB (PROTONIX) PO SCH (08:36)
[2019-04-13] MEDS: METOPROLOL SUCC *XL* 25MG TAB (TopROL *XL*) PO SCH ×2 (08:36→21:52)
[2019-04-13] MEDS: oxyCODONE 10 MG CR TAB PO SCH ×2 (08:36→21:52)
[2019-04-13] MEDS: DOCUSATE SODIUM 100 MG CAP PO SCH ×2 (08:36→21:00)
[2019-04-13] MEDS: GABAPENTIN 300 MG CAP PO SCH ×2 (08:36→21:52)
[2019-04-13] MEDS: HumaLOG INSULIN (NovoLOG) PER UNIT SC SCH ×4 (08:37→21:00)
[2019-04-13] MEDS: LEVEMIR (INSULIN DETEMIR) 1 UNITS/0.01ML SC SCH ×2 (08:37→21:51)
[2019-04-13] MEDS: EUCERIN 120GM CREAM TOP SCH ×2 (08:38→21:52)
[2019-04-13] MEDS ORDERED: CLOPIDOGREL 75 MG TAB PO SCH (09:00)
[2019-04-13] MEDS ORDERED: HEPARIN 1,000 UNITS/ML 10ML VIAL (FOR RADIOLOGY& DIALYSIS ONLY) IV ONE (12:45)
[2019-04-13] MEDS ORDERED: LIDOCAINE 1% SDV 5 ML VIAL SQ ONE (12:45)
--- NOTE | 2019-04-13 12:54 | IPNPDOC ---
PM&R Progress Note DATE OF SERVICE: April 13, 2019 Decorating Supervisor Progress Note SUbjective: PAtient reports hitting her stump on the joe steady and wore her brace in therapy today, had pain and bleeding at the stump site. REVIEW OF SYSTEMS: The following is a completed review of systems and has been reviewed. Review of systems otherwise unremarkable. PAIN: Patient self reports no pain at rest EYES: Negative for recent vision loss EARS, NOSE, & THROAT: denies dysphagia, rhinorrhea, hearing loss CARDIOVASCULAR: denies chest pain, +exertional dyspnea PULMONARY: Negative. Denies shortness of breath except on exertion GASTROINTESTINAL: + ascites GENITOURINARY: Negative for dysuria MUSCULOSKELETAL: +arthritis, right foot toe amputations, left BKA NEUROLOGICAL: peripheral neuropathy HEMATOLOGICAL: +anemic SKIN: right D1 ischemic ulcer, left BKA incision with blisters, purple-colored patch just beneath incision line PSYCHIATRIC:+anxious All other review of systems found to be negative. PHYSICAL EXAMINATION: VITAL SIGNS: Please see below. GENERAL: Pleasant and cooperative. No acute distress. smiling HEENT: PERRL. Extraocular movements intact. Clear conjunctiva CARDIOVASCULAR: Regular rate and rhythm. No murmurs, rubs, or gallops LUNGS: Clear to auscultation bilaterally. No wheezes. No rhonchi ABDOMEN: Soft, very distended, however minimal pain with palpation, no guarding, Positive bowel sounds. NEUROLOGICAL: Alert and oriented times three. Cranial nerves II through XII grossly intact. Sensation grossly intact in UE, diminished in bilat LE EXTREMITIES: 5-\\5 strength bilateral upper extremities. 5-\\5 strength right lower extremity. 5-/5 strength in left hip flexion knee extension and knee flexion SKIN: left forearm AVF, right calf edematous with erythema (negative Homans) left BKA incision with blisters with mild bleeding from all michelle sites, purple-colored patch just beneath incision line unchanged ASSESSMENT:-year-old 68 with past medical history of ESRD on HD and PVD who presents status post left BKA PLAN: 1. Rehab: OT/PT, assess for DME needs 2. Vascular- s/p left BKA on 04/06/[address] Estrella, was on IV Zosyn and Vanco- c/u Vanco, concern for poor wound healing, vascular aware, no change in p john of care for now 3. Skin: left BKA with blisters and signs of poor circulation- c/u TID dressing changes, avoid use of hangar orthotic as this creates friction and moisture as does not fit securely to patient's limb -will discuss possibility of hyperbaric therapy with Dr. Osorio to aid in healing 4. CArdiac: pmh CAD s/p 4 stents, medicine consulted, c/u meds -pmh diastolic CHF- on dialysis with renal monitoring fluid balance 5. Resp: requiring supplemental oxygen due to poor ventilation in setting of ascites, encourage incentive spirometry and monitor for infection 6. Renal: ESRD on HD M//- renal consulted 7. GI: pmh cirrhosis with ascites, was getting paracentesis q2 weeks prior to hospitalization, concern for recent bleeding on last procedure 04/05/19 and plavix not held since, will hold and schedule for Tuesday-medicine's assistance coordinating this appreciated -protonix and TUMS for dyspepsia and ppx 8. DVT ppx: heparin 9. Pain: c/u long-acting oxycodone and tylenol- c/u gabapentin, AVOID adding anymore opioids to regimen as patient as fluctuating levels of arousal throug hout the day and needs to be optimized for therapy 10. PScyh: pmh anxiety/depression, c/u home meds 11. Dispo: TBD Allergies Coded Allergies: pregabalin (Verified Adverse Reaction, Intermediate, "feeling weird", SI thoughts., 03/06/19) Vital Signs Vital Signs Date Time Temp Pulse Resp B/P (MAP) Pulse Ox O2 Delivery O2 Flow Rate FiO2 04/13/19 09:00 20 2 2.0 04/13/19 08:36 76 142/67 04/13/19 06:00 97.6 Laboratory Data CBC/BMP Laboratory Tests 04/13/19 06:23 Red Blood Count 3.11 L, Mean Corpuscular Volume 98.1 H, Mean Corpuscular Hemoglobin 28.9, Mean Corpuscular Hemoglobin Concent 29.5 L, Red Cell Distribution Width 19.6 H, Neutrophils (%) (Auto) 63.8, Lymphocytes (%) (Auto) 13.5 L, Monocytes (%) (Auto) 15.9 H, Eosinophils (%) (Auto) 4.5 H, Basophils (%) (Auto) 0.6, Neutrophils # (Auto) 5.8, Lymphocytes # (Auto) 1.2 L, Monocytes # (Auto) 1.4 H, Eosinophils # (Auto) 0.4, Basophils # (Auto) 0.1, Calcium Level 8.2 L, Aspartate Amino Transf (AST/SGOT) 22, Alanine Aminotransferase (ALT/SGPT) 17, Alkaline Phosphatase 410 H, Total Bilirubin 0.4, Total Protein 5.8 L, Albumin 1.4 L Labs 24H Laboratory Tests 2 04/12/19 16:35: Bedside Glucose (Misc Panel) 130H 04/12/19 20:13: Bedside Glucose (Misc Panel) 87 04/13/19 06:23: Immature Granulocyte % (Auto) 1.7, White Blood Count 9.1, Red Blood Count 3.11L, Hemoglobin 9.0L, Hematocrit 30.5L, Mean Corpuscular Volume 98.1H, Mean Corpuscular Hemoglobin 28.9, Mean Corpuscular Hemoglobin Concent 29.5L, Red Cell Distribution Width 19.6H, Platelet Count 190, Neutrophils (%) (Auto) 63.8, Lymphocytes (%) (Auto) 13.5L, Monocytes (%) (Auto) 15.9H, Eosinophils (%) (Auto) 4.5H, Basophils (%) (Auto) 0.6, Neutrophils # (Auto) 5.8, Lymphocytes # (Auto) 1.2L, Monocytes # (Auto) 1.4H, Eosinophils # (Auto) 0.4, Basophils # (Auto) 0.1, Nucleated Red Blood Cells % (auto) 0.0, Anion Gap 8, Glomerular Filtration Rate 8.8L, Blood Urea Nitrogen 46H, Creatinine 5.16H, Sodium Level 138, Potassium Level 4.3, Chloride Level 103, Carbon Dioxide Level 27, Calcium Level 8.2L, Aspartate Amino Transf (AST/SGOT) 22, Alanine Aminotransferase (ALT/SGPT) 17, Alkaline Phosphatase 410H, Total Bilirubin 0.4, Total Protein 5.8L, Albumin 1.4L, Iron Level 20L, Total Iron Binding Capacity 133L, Transferrin % Saturation 15.0, Albumin/Globulin Ratio 0.32L 04/13/19 11:53: Bedside Glucose (Misc Panel) 109 Current Medications Current Medications Current Medications Acetaminophen (Tylenol Tab) 650 mg Q4HP PRN PO MILD PAIN (PS 1-4) Last administered on 04/13/19at 07:36; Start 04/12/19 at 12:15 Al Hydrox/Mg Hydrox/Simethicone (Mylanta) 30 ml Q4HP PRN PO DYSPEPSIA; Start 04/12/19 at 12:15 Calcium Carbonate (Tums) 1,000 mg WM PO Last administered on 04/13/19at 08:35; Start 04/12/19 at 12:30 Clopidogrel Bisulfate (PLAVix) 75 mg DAILY PO ; Start 04/13/19 at 09:00; Stop at 09:00; Status DC Clopidogrel Bisulfate (PLAVix) 75 mg DAILY PO ; Start 04/17/19 at 09:00 Darbepoetin Yordan (Aranesp (Dialysis Use)) 100 mcg HD IV ; Start 04/13/19 at 08:30 Dextrose (Dextrose 50%) 25 ml ASDIRECTED PRN IV SEE LABEL COMMENTS; Start 04/12/19 at 12:15 Docusate Sodium (Colace) 100 mg BID PO Last administered on 04/13/19at 08:36; Start 04/12/19 at 21:00 Duloxetine HCl (Cymbalta) 30 mg DAILY PO Last administered on 04/13/19at 08:36; Start 04/13/19 at 09:00 Gabapentin (Neurontin) 300 mg BID PO Last administered on 04/13/19at 08:36; Start 04/12/19 at 21:00 Glucagon (Glucagon) 1 mg ASDIRECTED PRN SC SEE LABEL COMMENTS; Start 04/12/19 at 12:15 Glucose (Glucose) 16 GM ASDIRECTED PRN PO SEE LABEL COMMENTS; Start 04/12/19 at 12:15 Heparin Sodium (Porcine) (Heparin) 5,000 units Q12H SC Last administered on 04/13/19at 08:35; Start 04/12/19 at 21:00 Insulin Detemir (Levemir Insulin) 10 units DAILY SC Last administered on 04/13/19at 08:37; Start 04/13/19 at 09:00 Insulin Detemir (Levemir Insulin) 10 units QHS SC ; Start 04/12/19 at 21:00 Insulin Human Lispro (HumaLOG INSULIN) SEE PROTOCOL TABLE AC SC Last administered on 04/13/19at 08:37; Start 04/12/19 at 17:30 Insulin Human Lispro (HumaLOG INSULIN) SEE PROTOCOL TABLE QHS SC ; Start 04/12/19 at 21:00 Levothyroxine Sodium (Synthroid) 125 mcg DAILY@06 PO Last administered on 04/13/19at 05:32; Start 04/13/19 at 06:00 Metoprolol Succinate (TopROL XL) 25 mg BID PO Last administered on 04/13/19at 08:36; Start 04/12/19 at 21:00 Mineral Oil/White Petrolatum (Eucerin) TO RLE BID TOP Last administered on 04/13/19at 08:38; Start 04/12/19 at 21:00 Morphine Sulfate (Morphine Sulfate Inj) 4 mg Q4HP PRN IV SEVERE PAIN (PS 8-10); Start 04/12/19 at 16:00; Stop 04/13/19 at 10:52; Status DC Non-Formulary Medication ( See Comment Field Below ) CHECK TO SEE IF THE PATIENT... DAILY@1600 XX ; Start 04/12/19 at 16:00 Ondansetron HCl (Zofran) 4 mg Q6HP PRN PO NAUSEA; Start 04/12/19 at 12:15 Oxycodone HCl (OxyCONTIN) 10 mg BID PO Last administered on 04/13/19at 08:36; Start 04/12/19 at 21:00 Pantoprazole Sodium (Protonix) 40 mg DAILY PO Last administered on 04/13/19at 08:36; Start 04/13/19 at 09:00 Patiromer (Veltassa) 8.4 gm ASDIRECTED PRN PO SEE INSTRUCTIONS; Start 04/12/19 at 12:15 Ropinirole HCl (Requip) 1 mg QHS PO Last administered on 04/12/19at 21:39; Start 04/12/19 at 21:00 Senna (Senokot) 1 tab QHS PO Last administered on 04/12/19at 21:39; Start 04/12/19 at 21:00 Simvastatin (Zocor) 20 mg QHS PO Last administered on 04/12/19at 21:39; Start 04/12/19 at 21:00 Trazodone HCl (Desyrel) 50 mg QPM PRN PO INSOMNIA; Start 04/12/19 at 16:00 Vancomycin HCl 750 mg/IV Miscellaneous Supplies 15 ml @ 15 mls/hr ASDIRECTED IV ; Start 04/12/19 at 12:15; Stop 04/12/19 at 13:03; Status DC Vancomycin HCl 750 mg/IV Miscellaneous Supplies 1 each/ Dextrose 275 ml @ 275 mls/hr HD IV ; Start 04/12/19 at 13:15 A-FIB/CHADSVASC A-FIB History Current/History of A-Fib/PAF?: No WALTER BARRERA MD April 13, 2019 12:54
--- NOTE | 2019-04-13 14:46 | IPNPDOC ---
Date Seen The patient was seen on 04/13/19. Progress Note VASCULAR SURGERY Dr Estrella HPI: 68-year-old female admitted to [facility] 03/21/19 related to increased redness and bloody weeping from her left foot ulcer at the heel, which she has had since August [address] Baeza. There was also a new ulcer on the medial malleolus that is growing proximal to the old ulcer. Per the patient, new ulcer has evolved over the past 1-2 weeks, and was also assessed by Dr. Baeza when both wounds were debrided. Vascular surgery consulted 03/27/19 for further evaluation of left foot wound. The patient is status post left foot debridement and amputation second and third toes as per Dr. Estrella 03/27/19. The patient is S/P LLE angiogram 03/29/[address] Estrella, no intervention. 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 ESRD with HD MWF as per Nephrology. Also, due to her cirrhosis, she undergoes paracentesis every 2 weeks, S/P paracentesis 04/05/19. Scheduled for paracentesis 04/16/19. Denies any fevers, chills, weakness, fatigue, Headache, Chest Pain, Shortness of breath, cough, palpitations, abdominal pain, N/V/D or changes in bowel or bladder habits. 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 Left arm AV fistula. Appendectomy. Hysterectomy. Bilateral cataracts. PE: GEN: 68 yo F, appears stated age. No acute distress. Alert. HEENT: Normocephalic, atraumatic. No facial asymmetry. Moist mucous membranes. CHEST: Regular rate and rhythm, +S1, +S2 LUNGS: Clear to auscultation bilaterally. No wheezes, rales, or rhonchi. ABD: Round, distended, nontender. +Bowel sounds throughout. EXT: S/P BKA LLE, dressing in place. NEURO: Alert and oriented x 3. Cranial nerves III-XII are intact. No focal deficits appreciated. 03/21 blood culture x2. Negative 03/21 left foot WOUND CULTURE Final Organism 1 ENTEROBACTER CLOACAE COMPLEX QUANTITY OF GROWTH HEAVY Organism 2 STAPHYLOCOCCUS AUREUS QUANTITY OF GROWTH HEAVY Organism 3 STAPH.AUREUS METHICILLIN RESIS QUANTITY OF GROWTH HEAVY FULL REPORT IN LAB NOTES (eCW and Medent). 03/23 left foot wound culture Negative MRI left foot Once again there are findings are Charcot foot which appear unchanged compared to the prior study of 09/04/2018. Diffuse subchondral marrow edema is seen in the distal tibia and fibula as well as the tarsal bones, unchanged. No definite acute osteomyelitis. Diffuse edema and probable cellulitis. Large joint effusion at the tibiotalar joint. Complex fluid collection centered between the second and third metatarsals extends into the plantar soft-tissues along the flexor tendons and also extends into the dorsal soft-tissues. There may be internal foci or air and therefore this may represent an abscess. Electronically Signed by Aureliano Rivas MD 03/26/2019 04:22 P TTE 1. Study is of good technical quality. 2. Normal LV size with mild LVH and hyperdynamic LV systolic function. Grade 1 diastolic dysfunction. 3. Aortic sclerosis with trivial stenosis and insufficiency. 4. Degenerative abnormalities of mitral valve with trace mitral insufficiency. 5. Normal central venous pressure and likely normal pulmonary artery pressure. 6. Small non compressive pericardial effusion. 7. Likely ascites in the abdomen. DD: Apolonia White MD 04/03/19 0811 A&P: 68-year-old female admitted to [facility] 03/21/19 related to increased redness and bloody weeping from her left foot ulcer at the heel, which she has had since August [address] Baeza. There was also a new ulcer on the medial malleolus that is growing proximal to the old ulcer. Per the patient, new ulcer has evolved over the past 1-2 weeks, and was also assessed by Dr. Baeza when both wounds were debrided. Vascular surgery consulted 03/27/19 for further evaluation of left foot wound. 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 POD6. The pt was OOB with therapy and hit her stump this am and had some bloody drainage, discussed with Dr Cotton as it is currently re wrapped and Pt is going to HD. Incision was intact, michelle intact, appeared about the same as yesterday, still with dark purple colored area at anterior aspect of incision. Continue dry dressing daily. Patient is afebrile. WBC 9.1 Patient remains on IV Vanco/ S/P Zosyn Continue to closely monitor incision. ESRD Hemodialysis as per nephrology. CHF. Fluid management as per nephrology. Chronic anemia. venofer as per nephrology. Aranesp as per nephrology. S/P 1 u PRBC 04/09/19 Hgb 9.0 Hx of Liver Cirrhosis s/p paracentesis on 04/05/19. paracentesis planned today. DVT ppx: heparin sc A-FIB/CHADSVASC A-FIB History Current/History of A-Fib/PAF?: No VS, I&O, 24H, Fishbone Vital Signs/I&O Vital Signs Date Time Temp Pulse Resp B/P (MAP) Pulse Ox O2 Delivery O2 Flow Rate FiO2 04/13/19 09:00 20 2 2.0 04/13/19 08:36 76 142/67 04/13/19 06:00 97.6 I&O- Last 24 Hours up to 6 AM 04/13/19 06:00 Intake Total 360 ml Output Total 0 ml Balance 360 ml Laboratory Data 24H LABS Laboratory Tests 2 04/12/19 16:35: Bedside Glucose (Misc Panel) 130H 04/12/19 20:13: Bedside Glucose (Misc Panel) 87 04/13/19 06:23: Immature Granulocyte % (Auto) 1.7, White Blood Count 9.1, Red Blood Count 3.11L, Hemoglobin 9.0L, Hematocrit 30.5L, Mean Corpuscular Volume 98.1H, Mean Corpuscular Hemoglobin 28.9, Mean Corpuscular Hemoglobin Concent 29.5L, Red Cell Distribution Width 19.6H, Platelet Count 190, Neutrophils (%) (Auto) 63.8, Lymphocytes (%) (Auto) 13.5L, Monocytes (%) (Auto) 15.9H, Eosinophils (%) (Auto) 4.5H, Basophils (%) (Auto) 0.6, Neutrophils # (Auto) 5.8, Lymphocytes # (Auto) 1.2L, Monocytes # (Auto) 1.4H, Eosinophils # (Auto) 0.4, Basophils # (Auto) 0.1, Nucleated Red Blood Cells % (auto) 0.0, Anion Gap 8, Glomerular Filtration Rate 8.8L, Blood Urea Nitrogen 46H, Creatinine 5.16H, Sodium Level 138, Potassium Level 4.3, Chloride Level 103, Carbon Dioxide Level 27, Calcium Level 8.2L, Aspartate Amino Transf (AST/SGOT) 22, Alanine Aminotransferase (ALT/SGPT) 17, Alkaline Phosphatase 410H, Total Bilirubin 0.4, Total Protein 5.8L, Albumin 1.4L, Iron Level 20L, Total Iron Binding Capacity 133L, Transferrin % Saturation 15.0, Albumin/Globulin Ratio 0.32L 04/13/19 11:53: Bedside Glucose (Misc Panel) 109 CBC/BMP Laboratory Tests 04/13/19 06:23 Red Blood Count 3.11 L, Mean Corpuscular Volume 98.1 H, Mean Corpuscular Hemoglobin 28.9, Mean Corpuscular Hemoglobin Concent 29.5 L, Red Cell Distribution Width 19.6 H, Neutrophils (%) (Auto) 63.8, Lymphocytes (%) (Auto) 13.5 L, Monocytes (%) (Auto) 15.9 H, Eosinophils (%) (Auto) 4.5 H, Basophils (%) (Auto) 0.6, Neutrophils # (Auto) 5.8, Lymphocytes # (Auto) 1.2 L, Monocytes # (Auto) 1.4 H, Eosinophils # (Auto) 0.4, Basophils # (Auto) 0.1, Calcium Level 8.2 L, Aspartate Amino Transf (AST/SGOT) 22, Alanine Aminotransferase (ALT/SGPT) 17, Alkaline Phosphatase 410 H, Total Bilirubin 0.4, Total Protein 5.8 L, Albumin 1.4 L Trini Vieira April 13, 2019 14:46
[2019-04-13] MEDS: **VANCO AFTER HD** MISC XX SCH (16:00)
--- NOTE | 2019-04-13 16:10 | IPN ---
DATE: 04/13/2019 Mrs. Hernandez is seen this morning on her bedside. She recently underwent a left [id number] amputation due to nonhealing ulcers, diabetic foot, and gangrenous changes. She has known history of longstanding poorly-controlled diabetes, hypertension, peripheral vascular disease, cirrhosis of liver with recurrent ascites, and end-stage renal disease requiring maintenance hemodialysis. She is dialyzed on Tuesday, Tuesday, and Tuesday schedule. She is now transferred to acute rehabilitation floor following her [id number]-[id number] amputation. The patient is sitting in the chair at the time of my visit. She denies any dyspnea or chest pain. She does have abdominal distension due to ascites. She had a paracentesis done yesterday. The patient denies any nausea or vomiting. PHYSICAL EXAMINATION: Temperature 97.6 degrees Fahrenheit, heart rate 76 per minute, respiratory rate 18 per minute, blood pressure 142/67 mm of mercury, and oxygen saturation 97% on 2 liters oxygen. Her head is atraumatic. Neck is supple and without jugular venous distention (JVD) or thyroid enlargement. She is sitting upright in the chair at present. There is no oral thrush or ulcers. Heart sounds are regular and lungs clear to auscultation. Abdomen is distended with large amount of ascites, and bowel sounds are present. Extremities have no cyanosis or clubbing. She has a left yjxaz-lat-fidz amputation. Neurologically, she is at her baseline mentation. Today's labs show WBC count 9.1, hemoglobin 9.0, and hematocrit 30.5. Sodium 138, potassium 4.3, CO2 of 27, iron level 20, and saturation 15%. PROBLEMS: 1. End-stage renal disease. The patient is dialyzed on Tuesday, Tuesday, and Tuesday schedule. She will be dialyzed this afternoon. 2. Hypotension. Her blood pressure has been low and he is currently not on any antihypertensive medications. We will continue to monitor her closely. We do not remove fluid too aggressively. 3. Anemia. She does have anemia with persistent iron deficiency. She has been on iron supplement, and I am going to continue with the same. 4. Cirrhosis of liver with recurrent ascites. The patient continues with weekly paracentesis and had one done yesterday. Next paracentesis will be again next week.
[2019-04-13] MEDS ORDERED: IRON SUCROSE 100MG 5ML VIAL (J1756 PER 1MG) IV SCH (16:15)
[2019-04-13 18:00] VITALS: BP 117/63
[2019-04-13] MEDS: SENNA 8.6 MG TAB (SENOKOT) PO SCH (21:00)
[2019-04-13] MEDS: rOPINIRole 1MG TAB PO SCH (21:52)
[2019-04-13] MEDS: SIMVASTATIN 20 MG TAB PO SCH (21:52)
[2019-04-14] MEDS: LEVOTHYROXINE 125MCG TABLET (0.125MG) PO SCH (05:59)
[2019-04-14 06:00] VITALS: BP 144/68
[2019-04-14] MEDS: HumaLOG INSULIN (NovoLOG) PER UNIT SC SCH ×4 (07:30→20:48)
[2019-04-14] MEDS: HEPARIN SOD (PORCINE) 5000 UNITS/ML VIAL SC SCH ×2 (08:50→20:48)
[2019-04-14] MEDS: CALCIUM CARBONATE 500 MG CHEW U/D PO SCH ×3 (08:51→17:40)
[2019-04-14] MEDS: DOCUSATE SODIUM 100 MG CAP PO SCH ×3 (08:51→20:53)
[2019-04-14] MEDS: PANTOPRAZOLE 40MG TAB (PROTONIX) PO SCH (08:51)
[2019-04-14] MEDS: GABAPENTIN 300 MG CAP PO SCH ×2 (08:52→20:49)
[2019-04-14] MEDS: METOPROLOL SUCC *XL* 25MG TAB (TopROL *XL*) PO SCH ×2 (08:52→20:51)
[2019-04-14] MEDS: DULoxetine 30 MG CAP (CYMBALTA) PO SCH (08:52)
[2019-04-14] MEDS: LEVEMIR (INSULIN DETEMIR) 1 UNITS/0.01ML SC SCH ×2 (08:53→20:49)
[2019-04-14] MEDS: oxyCODONE 10 MG CR TAB PO SCH ×2 (08:53→20:50)
[2019-04-14] MEDS: EUCERIN 120GM CREAM TOP SCH ×2 (08:55→20:49)
[2019-04-14 09:46] LABS: HEMATOCRIT 31.9 % (36.0-47.0); HEMOGLOBIN 9.5 g/dl (12.0-15.5); MEAN CORPUSCULAR HEMOGLOBIN 29.2 pg (27.0-33.0); MEAN CORPUSCULAR HGB CONC 29.8 g/dl (32.0-36.5); MEAN CORPUSCULAR VOLUME 98.2 fl (80.0-96.0); PLATELET COUNT, AUTOMATED 202 10^3/uL (150-450); RED BLOOD COUNT 3.25 10^6/uL (4.00-5.40)
[2019-04-14 10:04] LABS: CALCIUM LEVEL 7.6 MG/DL (8.8-10.2); CREATININE FOR GFR 3.96 MG/DL (0.55-1.30); GLOMERULAR FILTRATION RATE 11.9 (>39); POTASSIUM SERUM 4.1 MEQ/L (3.5-5.1)
[2019-04-14 10:12] LABS: ATYPICAL LYMPH 1 % (0-5); BASOPHILS 1 % (0-4); EOSINOPHILS 4 % (0-5); LYMPHOCYTES 15 % (16-52); MONOCYTES 10 % (0-8); MYELOCYTES 1 % (0-0); NEUTROPHILS 67 % (35-75); PLATELET ESTIMATE NORMAL (NORMAL)
[2019-04-14 10:13] LABS: ANISOCYTOSIS 1+; HYPOCHROMASIA 1+; POIKILOCYTOSIS 1+
--- NOTE | 2019-04-14 11:54 | IPNPDOC ---
Subjective Date Seen The patient was seen on 04/14/19. Subjective Chief Complaint/HPI Patient is a 68-year-old female, past medical history significant for end-stage renal disease on hemodialysis, advanced liver cirrhosis requiring paracentesis every 2 weeks, diastolic heart failure, CAD, hyperparathyroidism, hypothyroidism, depression and anxiety, type 2 diabetes mellitus. Patient was admitted for evaluation of volume overload and worsening foot infection. Patient subsequently had left second and third toe amputation and later BKA. She was discharged to inpatient rehabilitation unit for further evaluation and management mobilization and strengthening. Events since last encounter On assessment today she complains of abdominal pain and discomfort. Complains of pain to left lower extremity. Did not have paracentesis on due to high risk for bleed with plavix Objective Physical Examination General Exam: Positive: Alert, Cooperative, No Acute Distress Eye Exam: Positive: PERRLA, Sclera icteric ENT Exam: Positive: Atraumatic, Mucous membr. moist/pink Neck Exam: Positive: Supple Chest Exam: Positive: Clear to auscultation, Normal air movement Heart Exam: Positive: Rate Normal Telemetry: Positive: Sinus Abdomen Exam: Positive: Normal bowel sounds Other physical findings GENERAL: obese female in no acute distress SKIN : Warm, dry dressing to left BKA intact HEENT: Atraumatic, normocephalic, PERRL, moist mucous membrane CARDIOVASCULAR: Regular rate and rhythm, S1S2, +edema, distal pulses not palpable RESP: diminished, no accessory muscle use noted ABDOMEN: BS+ distended +tender MS: no joint deformities NEURO: Alert and oriented x 3, CN2-12 grossly intact A-FIB/CHADSVASC A-FIB History Current/History of A-Fib/PAF?: No Current Oral Anticoagulant The: No Treatment Reason Anticoagulant not given: Recent/upcomin procedure Assessment /Plan Assessment Charcots foot and left foot abscess -S/P left BKA -Continued on antibiotic therapy with vancomycin Acute on chronic diastolic heart failure -Volume control and strict input and output -Other guideline directed. Medical management of chronic diastolic heart failure -Fluid removal per nephrology team End-stage liver disease -With re-occurring ascites requiring paracentesis every 2 weeks -Paracentesis Tuesday, April 17 -Continue Volume control -Paracentesis management per GI -Hold blood thinners prior to paracentesis -Adjust doses of medications for underlying hepatic failure Hypertension -Intermittent episodes of hypotension -Blood pressure monitoring unit protocol -Continue antihypertensives with holding parameters ESRD -Hemodialysis Tuesday, Tuesday, Tuesday -Nephrology on board, managing hemodialysis treatments Hyperkalemia -Monitoring of electrolytes daily -continue ventressa -Hemodialysis Tuesday, Wednesdays, Fridays -Avoidance of POLLO/ARBS -Left heel ulcer -Status post left toes and foot and BKA amputation -Continued on antibiotic therapy with vancomycin -Dosing and monitoring per pharmacy -ID specialist on board Anemia -S/P transfusion 04/09 -due to chronic disease -continued on Venofer with HD Plan/VTE VTE Prophylaxis Ordered?: Yes VTE Exclusion Pharmacological: Bleeding Risk VS, I&O, 24H, Fishbone Vital Signs/I&O Vital Signs Date Time Temp Pulse Resp B/P (MAP) Pulse Ox O2 Delivery O2 Flow Rate FiO2 04/14/19 08:53 18 04/14/19 08:52 63 144/68 04/14/19 08:00 2.0 04/14/19 06:00 97.1 98 I&O- Last 24 Hours up to 6 AM 04/14/19 06:00 Intake Total 330 ml Output Total 650 ml Balance -320 ml Laboratory Data 24H LABS Laboratory Tests 2 04/13/19 11:53: Bedside Glucose (Misc Panel) 109 04/13/19 17:54: Bedside Glucose (Misc Panel) 96 04/13/19 20:05: Bedside Glucose (Misc Panel) 118H 04/14/19 06:02: Bedside Glucose (Misc Panel) 95 04/14/19 09:18: Immature Granulocyte % (Auto) , Nucleated Red Blood Cells % (auto) 0.0, Neutrophils 67, Band Neutrophils 1, Lymphocytes (Manual) 15L, Monocytes (Manual) 10H, Eosinophils (Manual) 4, Basophils (Manual) 1, Myelocytes 1H, Atypical Lymphocytes 1, Platelet Estimate NORMAL, Hypochromasia 1+, Poikilocytosis 1+, Basophilic Stippling 1+, Anisocytosis 1+, Anion Gap 7L, Glomerular Filtration Ra te 11.9L, Blood Urea Nitrogen 33H, Creatinine 3.96H, Sodium Level 138, Potassium Level 4.1, Chloride Level 102, Carbon Dioxide Level 29, Calcium Level 7.6L CBC/BMP Laboratory Tests 04/14/19 09:18 Red Blood Count 3.25 L, Mean Corpuscular Volume 98.2 H, Mean Corpuscular Hemoglobin 29.2, Mean Corpuscular Hemoglobin Concent 29.8 L, Red Cell Distribution Width 19.0 H, Calcium Level 7.6 L YESSY CAMPOS. 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
[2019-04-14] MEDS: **VANCO AFTER HD** MISC XX SCH (13:03)
[2019-04-14 14:00] VITALS: BP_SYST 155; BP_DIAS 65; BP_DIAS 68
--- NOTE | 2019-04-14 14:13 | IPNPDOC ---
Text Note Date of Service The patient was seen on 04/14/19. NOTE Nephrology Service: Subjective: Patient seen and examined at bedside now in the Acute Rehab Unit. Was lying in bed comfortably. Mentating appropriately. 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 Estrella. Pain is well controlled. Is afebrile and hemodynamically stable today. Blood pressures have been stable. She has no acute complaints and states she is doing pretty good. Denies fevers, chills, chest pain, SOB, nausea, vomiting, abdominal pain. Admits to distension of abdomen. Previously, dialyzed on 04/13/19 with 650 mL removed. Unfortunately, has not had paracentesis on 04/12 as was the plan due to receiving plavix and plavix not being held prior to planned paracentesis on 04/12. Next paracentesis with albumin transfusion will be on Tuesday. Objective: Vitals: T: 97.1 BP: 144/68 RR: 18 P: 63 O2 Saturation: 98% on 2 liters NC Intake: 420 ml Output: 650 mL Balance: (-) 230 ml Urine Total: 0 mL General: AAO x 3. Adult obese female lying comfortably in bed in NAD. Speaks very softly. Pleasant and cooperative. Answering questions appropriately. Mentating well. HEENT: Head: normocephalic, atraumatic. Neck: Supple. Mild JVD. Respiratory: Clear to auscultation bilaterally with no wheezes, rales, or rhonchi. Cardiovascular: Normal S1S2, regular rate and rhythm, with no murmurs, rubs or gallops. Abdomen: Soft, nontender, distended, ascites present and increased. (+)fluid wave. Extremities: Dressing on L leg status-post L BKA. L leg dressing appears clean, dry, intact. (+)1 pitting edema of RLE. Vascular: LUE fistula is present, thrill palpable. Musculoskeletal: Moves all 4 extremities. Neurological: Mentating appropriately. No focal neurologic deficits on inspection. Laboratory data: CBC: WBC 10, Hgb 9.5, Platelets 202. BMP: Na 138, K 4.1, BUN 33, Cr 3.96, CO2 29, glucose 114, Ca 7.6 Current Inpatient Medications: Vancomycin 750 mg IV HD Venofer (Iron) 100 mg IV HD Ropinirole 1 mg PO QHS Aranesp (Darbepoetin Yordan) 100 mcg HD IV Metoprolol succinate 25 mg PO BID Gabapentin 300 mg PO BID Veltassa (Patiromer) 8.4 gm as directed PRN PO missing dialysis Plavix on hold until 04/17/19 due to paracentesis scheduled for Tuesday on 04/16. No other change in the medications today as compared with yesterday. Assessment/Plan: 1. End-stage renal disease on hemodialysis on Tuesday, Tuesday, Tuesday sched ule: Last HD was 04/13. Next dialysis will be Tuesday. BPs are stable and patient is hemodynamically stable at this point. Hgb is 9.5 today. Her electrolytes are acceptable and her fistula is in good use. On veltassa for hyperkalemia PRN. Continue to monitor Intake and Output as well as BMP/electrolytes. 2. Hypertension: BPs stable today. Continue metoprolol with hold parameters in place due to past episodes of hypotension. Will continue to monitor. 3. Recurrent ascites status post paracentesis x3 on this admission: Paracentesis only performed 1-2 times per month in outpatient setting and needs to have albumin transfusion with each paracentesis. Plavix does need to be held for several days prior to each tap and she does have a history of coronary artery disease. Did not receive paracentesis on 04/12 due to administration of plavix. Plavix now held until 04/17. Paracentesis scheduled for Tuesday 04/17 with plans for albumin transfusion as per Hospitalist note. Will definitely need albumin transfusion if gets paracentesis. 4. Diastolic congestive heart failure with exacerbation: According to most recent echocardiogram, patient has grade 1 diastolic dysfunction. Has hx of chronic fluid overload secondary to noncompliance in the outpatient office. Patient also has hx of noncompliance with her fluid restrictions. Patient also has hx of recurrent ascites. Have to be cautious with removal of fluid during dialysis secondary to patient's hx of recent soft blood pressures. Patient's volume status is stable and acceptable today. 5. Anemia secondary to end-stage renal disease, iron deficiency and chronic inflammation: Hemoglobin is 9.5 (L). Continue Aranesp and Venofer 100 mg HD IV. Continue to monitor CBC. 6. 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 Estrella: Is doing well postoperatively and pain is well controlled at this time. Mentating appropriately. Is now under Dr. Hilda Cotton care for PT/rehab in ARU. Continues on renally dosed antibiotics managed as per the primary team. Zosyn was recently discontinued. She is only left on vancomycin. My preceptor for this patient encounter was Dr. Maia Grullon, and was physically present in the building during the encounter and was fully available. As needed, all aspects of the patient interview, examination, medical decision making process, and medical care plan development were reviewed and approved by the preceptor. Preceptor is aware and concurs with the plan as stated in the body of this note and will attest to such by his/her cosignature. A-FIB/CHADSVASC A-FIB History Current/History of A-Fib/PAF?: No Current Oral Anticoagulant The: No VS,Fishbone, I+O VS, Fishbone, I+O Laboratory Tests 04/14/19 09:18 Red Blood Count 3.25 L, Mean Corpuscular Volume 98.2 H, Mean Corpuscular Hemoglobin 29.2, Mean Corpuscular Hemoglobin Concent 29.8 L, Red Cell Distribution Width 19.0 H, Calcium Level 7.6 L Vital Signs Date Time Temp Pulse Resp B/P (MAP) Pulse Ox O2 Delivery O2 Flow Rate FiO2 04/14/19 08:53 18 04/14/19 08:52 63 144/68 04/14/19 08:00 2.0 04/14/19 06:00 97.1 98 I&O- Last 24 Hours up to 6 AM 04/14/19 06:00 Intake Total 330 ml Output Total 650 ml Balance -320 ml JENISE LUCERO DO April 14, 2019 14:13
[2019-04-14 16:00] VITALS: BP 155/65
[2019-04-14 20:00] VITALS: BP 120/62
[2019-04-14] MEDS: SIMVASTATIN 20 MG TAB PO SCH (20:49)
[2019-04-14] MEDS: SENNA 8.6 MG TAB (SENOKOT) PO SCH ×2 (20:50→20:53)
[2019-04-14] MEDS: rOPINIRole 1MG TAB PO SCH (20:50)
[2019-04-15] MEDS: LEVOTHYROXINE 125MCG TABLET (0.125MG) PO SCH (05:58)
[2019-04-15 06:00] VITALS: BP 132/63
[2019-04-15 06:41] LABS: HEMATOCRIT 35.8 % (36.0-47.0); HEMOGLOBIN 10.5 g/dl (12.0-15.5); MEAN CORPUSCULAR HEMOGLOBIN 29.4 pg (27.0-33.0); MEAN CORPUSCULAR HGB CONC 29.3 g/dl (32.0-36.5); MEAN CORPUSCULAR VOLUME 100.3 fl (80.0-96.0); PLATELET COUNT, AUTOMATED 202 10^3/uL (150-450); RED BLOOD COUNT 3.57 10^6/uL (4.00-5.40); WHITE BLOOD COUNT 9.8 10^3/uL (4.0-10.0)
[2019-04-15 07:06] LABS: ANISOCYTOSIS 1+; ATYPICAL LYMPH 2 % (0-5); EOSINOPHILS 6 % (0-5); LYMPHOCYTES 15 % (16-52); METAMYELOCYTES 4 % (0-0); MONOCYTES 6 % (0-8); NEUTROPHILS 64 % (35-75); PLATELET ESTIMATE NORMAL (NORMAL); POLYCHROMASIA 1+
[2019-04-15 07:07] LABS: POIKILOCYTOSIS 1+
[2019-04-15 07:08] LABS: CALCIUM LEVEL 7.7 MG/DL (8.8-10.2); CREATININE FOR GFR 4.82 MG/DL (0.55-1.30); GLOMERULAR FILTRATION RATE 9.5 (>39)
[2019-04-15] MEDS: CALCIUM CARBONATE 500 MG CHEW U/D PO SCH ×3 (07:23→18:17)
[2019-04-15] MEDS: HumaLOG INSULIN (NovoLOG) PER UNIT SC SCH ×4 (07:23→19:58)
[2019-04-15] MEDS: DOCUSATE SODIUM 100 MG CAP PO SCH ×2 (08:36→21:00)
[2019-04-15] MEDS: HEPARIN SOD (PORCINE) 5000 UNITS/ML VIAL SC SCH ×2 (08:39→21:46)
[2019-04-15] MEDS: LEVEMIR (INSULIN DETEMIR) 1 UNITS/0.01ML SC SCH ×2 (08:40→21:48)
[2019-04-15] MEDS: PANTOPRAZOLE 40MG TAB (PROTONIX) PO SCH (08:40)
[2019-04-15] MEDS: METOPROLOL SUCC *XL* 25MG TAB (TopROL *XL*) PO SCH ×2 (08:40→21:47)
[2019-04-15] MEDS: DULoxetine 30 MG CAP (CYMBALTA) PO SCH (08:40)
[2019-04-15] MEDS: oxyCODONE 10 MG CR TAB PO SCH (08:41)
[2019-04-15] MEDS: GABAPENTIN 300 MG CAP PO SCH ×2 (08:41→21:47)
[2019-04-15] MEDS: EUCERIN 120GM CREAM TOP SCH ×2 (08:42→21:48)
[2019-04-15] MEDS: **VANCO AFTER HD** MISC XX SCH (12:24)
--- NOTE | 2019-04-15 13:20 | IPNPDOC ---
Subjective Date Seen The patient was seen on 04/15/19. Subjective Chief Complaint/HPI Patient is a 68-year-old female, past medical history significant for end-stage renal disease on hemodialysis, advanced liver cirrhosis requiring paracentesis every 2 weeks, diastolic heart failure, CAD, hyperparathyroidism, hypothyroidism, depression and anxiety, type 2 diabetes mellitus. Patient was admitted for evaluation of volume overload and worsening foot infection. Patient subsequently had left second and third toe amputation and later BKA. She was discharged to inpatient rehabilitation unit for further evaluation and management mobilization and strengthening. Events since last encounter Seen this am during physical therapy. Complains of left ear pain and exhaustion,. abdominal pain is improved Objective Physical Examination General Exam: Positive: Alert, Cooperative, No Acute Distress Eye Exam: Positive: PERRLA, Sclera icteric ENT Exam: Positive: Atraumatic, Mucous membr. moist/pink Neck Exam: Positive: Supple Chest Exam: Positive: Clear to auscultation, Normal air movement Heart Exam: Positive: Rate Normal Telemetry: Positive: Sinus Abdomen Exam: Positive: Normal bowel sounds, Other (distended with ascites and edema) Extremity Exam: Positive: Edema, Tenderness, Other (BKA) Neuro Exam: Positive: Normal Speech Psych Exam: Positive: Mental status NL, Oriented x 3; Negative: Anxiety A-FIB/CHADSVASC A-FIB History Current/History of A-Fib/PAF?: No Current Oral Anticoagulant The: No Assessment /Plan Assessment Charcots foot and left foot abscess -S/P left BKA -Continued on antibiotic therapy with vancomycin -Status post left toes and foot and BKA amputation -Continued on antibiotic therapy with vancomycin -Dosing and monitoring per pharmacy -ID specialist on board Acute on chronic diastolic heart failure -Volume control ,strict input and output -paracentesis for ascites q 2 weeks -Fluid removal per nephrology team End-stage liver disease -With re-occurring ascites requiring paracentesis every 2 weeks -Paracentesis Tuesday, April 16 -Continue Volume control -Paracentesis management per GI -Hold blood thinners prior to paracentesis -Adjust doses of medications for underlying hepatic failure Hypertension -Intermittent episodes of hypotension -Blood pressure monitoring unit protocol -Continue antihypertensives with holding parameters ESRD -Hemodialysis Tuesday, Tuesday, Tuesday -Nephrology on board, managing hemodialysis treatments Hyperkalemia -4.0 today -continue monitoring of electrolytes daily -continue ventressa -Hemodialysis Tuesday, Wednesdays, Fridays -management by nephrology team -Avoidance of POLLO/ARBS Anemia -S/P transfusion 04/09 -due to chronic disease -continued on Venofer with HD DVT prophylaxis -continue heparin SQ Q8 Plan/VTE VTE Prophylaxis Ordered?: Yes VTE Exclusion Pharmacological: Bleeding Risk VS, I&O, 24H, Fishbone Vital Signs/I&O Vital Signs Date Time Temp Pulse Resp B/P (MAP) Pulse Ox O2 Delivery O2 Flow Rate FiO2 04/15/19 08:41 18 1.0 04/15/19 08:40 71 132/63 04/15/19 06:00 98.0 96 I&O- Last 24 Hours up to 6 AM 04/15/19 06:00 Intake Total 900 ml Balance 900 ml Laboratory Data 24H LABS Laboratory Tests 2 04/14/19 16:51: Bedside Glucose (Misc Panel) 127H 04/14/19 20:37: Bedside Glucose (Misc Panel) 160H 04/15/19 06:16: Immature Granulocyte % (Auto) , Nucleated Red Blood Cells % (auto) 0.4H, Neutrophils 64, Band Neutrophils 3, Lymphocytes (Manual) 15L, Monocytes (Manual) 6, Eosinophils (Manual) 6H, Metamyelocytes 4H, Atypical Lymphocytes 2, Platelet Estimate NORMAL, Polychromasia 1+, Poikilocytosis 1+, Basophilic Stippling 1+, Anisocytosis 1+, Anion Gap 12, Glomerular Filtration Rate 9.5L, Blood Urea Nitrogen 44H, Creatinine 4.82H, Sodium Level 140, Potassium Level 4.0, Chloride Level 102, Carbon Dioxide Level 26, Calcium Level 7.7L, Magnesium Level 2.0 04/15/19 12:11: Bedside Glucose (Misc Panel) 117H CBC/BMP Laboratory Tests 04/15/19 06:16 Red Blood Count 3.57 L, Mean Corpuscular Volume 100.3 H, Mean Corpuscular Hemoglobin 29.4, Mean Corpuscular Hemoglobin Concent 29.3 L, Red Cell Distribution Width 18.7 H, Calcium Level 7.7 L YESSY CAMPOS April 15, 2019 13:20
[2019-04-15 14:40] VITALS: BP 105/58
[2019-04-15] MEDS ORDERED: NALOXONE INJ 0.4 MG/1 ML VIAL (J2310) IV STA (15:30)
[2019-04-15 16:05] VITALS: BP 130/60
[2019-04-15 16:06] LABS: ABG HCO3 23.5 MEQ/L (22.0-26.0); ABG O2 SATURATION 98.3 % (95.0-99.0); ABG PARTIAL PRESSURE CO2 43.3 mmHg (35.0-45.0); ABG PARTIAL PRESSURE O2 108.6 mmHg (75.0-100.0); ABG STANDARD HCO3 22.8 MEQ/L (22.0-26.0); ABG TOTAL CO2 24.9 MEQ/L (23.0-31.0); ABG pH (ARTERIAL) 7.353 UNITS (7.350-7.450)
[2019-04-15 16:33] LABS: ALBUMIN 1.4 GM/DL (3.2-5.2); BILIRUBIN,TOTAL 0.4 MG/DL (0.2-1.0); CALCIUM LEVEL 7.5 MG/DL (8.8-10.2); CREATININE FOR GFR 5.25 MG/DL (0.55-1.30); GLOMERULAR FILTRATION RATE 8.6 (>39); POTASSIUM SERUM 3.9 MEQ/L (3.5-5.1); TOTAL PROTEIN 5.6 GM/DL (6.4-8.2)
--- NOTE | 2019-04-15 17:07 | IPN ---
DATE: 04/15/2019 SUBJECTIVE: Dalila is seen and examined this morning at the bedside. She complains of edema and ascites. She complains of fullness in the left ear and trouble hearing from the left ear. She complains of the diet and wants the diet changed. VITAL SIGNS: Temperature 98.0, pulse 71, respiratory rate 18, blood pressure 132/63, saturating 96% on 1 liter nasal cannula. Intake yesterday was 840. Weight on the bed scale today is 85.8 kg. General: Patient is seen lying in bed. Elderly female, eating and feeding herself. No acute distress. Extraocular muscles intact. Tongue is moist. Jugular veins are elevated. Cardiac: S1, S2. Regular rate and rhythm. Lungs show diminished breath sounds at the bases, otherwise clear. No crackles or rales. The abdomen is significantly distended with ascitic fluid. The lower extremities have also 2+ edema that extends up to the hip, thigh, and dependent areas. There are dressings on the right lower extremity that extend up to the knee and she has a left below the knee amputation. There is a left fistula with thrill and bruit. Neurologic: She is at her baseline mentation. LABS: White count 9.8, hemoglobin 10.5, sodium 140, potassium 4.0, magnesium 2.0. INPATIENT MEDICATIONS: Reviewed by myself. No change from prior. PROBLEMS: 1. End-stage renal disease on hemodialysis. She is usually on a Tuesday, Tuesday, Tuesday schedule. She is grossly volume overloaded. She is scheduled for paracentesis on Tuesday. In view of that, I will likely dialyze her next on Tuesday morning and then again on Tuesday to bring her back to her chronic schedule. We will decide based upon her renal panel tomorrow. Her fistula is in good use. Her electrolytes are acceptable. 2. Hypertension. The patient's blood pressures have actually been soft during this past admission and she is only receiving her Toprol XL. The remainder antihypertensives have been discontinued. She has not tolerated aggressive fluid removal with hemodialysis. In view of the borderline blood pressures and paracentesis schedules for Tuesday, she will likely be dialyzed next on Tuesday in order to avoid further hemodynamic instability. 3. Anemia related to chronic renal failure and iron deficiency. Hemoglobin is improved at 10.5 and she continues on Aranesp and Venofer with dialysis. 4. Recurrent ascites and cirrhosis, scheduled for a large volume paracentesis tomorrow with albumin infusion. Her Plavix is presently held. 5. Acute on chronic diastolic congestive heart failure. She is grossly volume overloaded. She is for paracentesis on Tuesday. Blood pressures have been borderline soft and she has not been tolerating aggressive fluid removal with hemodialysis. We will continue to remove fluid as tolerated by hemodynamics.
[2019-04-15 20:00] VITALS: BP 123/58
[2019-04-15] MEDS: SENNA 8.6 MG TAB (SENOKOT) PO SCH (21:00)
[2019-04-15] MEDS: SIMVASTATIN 20 MG TAB PO SCH (21:47)
[2019-04-15] MEDS: rOPINIRole 1MG TAB PO SCH (21:47)
[2019-04-15] MEDS: ACETAMINOPHEN TAB 650MG DOSE (2X325MG) PO PRN (21:50)
[2019-04-16 06:00] VITALS: BP 119/67
[2019-04-16] MEDS: LEVOTHYROXINE 125MCG TABLET (0.125MG) PO SCH (06:18)
[2019-04-16 06:25] LABS: HEMATOCRIT 32.1 % (36.0-47.0); HEMOGLOBIN 9.6 g/dl (12.0-15.5); MEAN CORPUSCULAR HEMOGLOBIN 29.2 pg (27.0-33.0); MEAN CORPUSCULAR HGB CONC 29.9 g/dl (32.0-36.5); MEAN CORPUSCULAR VOLUME 97.6 fl (80.0-96.0); PLATELET COUNT, AUTOMATED 207 10^3/uL (150-450); RED BLOOD COUNT 3.29 10^6/uL (4.00-5.40); WHITE BLOOD COUNT 9.6 10^3/uL (4.0-10.0)
--- NOTE | 2019-04-16 06:40 | ECGEPIP ---
Stationary ECG Study [facility] Test Date: 2019-04-15 Pat Name: GUI JEAN Department: Room: [place] [address] Gender: F Recovery Manager: : [id number] Requested By: SCOOTER Self Order Number: [id number] Reading MD: Tri Fisher Measurements Intervals [place] Rate: 70 P: 16 W[place]: 165 QRS: -27 QRSD: 90 T: 37 QT: 418 QTc: 451 Interpretive Statements SINUS RHYTHM WITH OCCASIONAL VENTRICULAR PREMATURE COMPLEXES ANTEROSEPTAL MYOCARDIAL INFARCTION, OF INDETERMINATE AGE Left axis deviation PVC NEW C/W 03/29/19 Electronically Signed On 04-16-2019 6:40:39 EDT by Tri Fisher
[2019-04-16 06:46] LABS: CALCIUM LEVEL 7.5 MG/DL (8.8-10.2); CREATININE FOR GFR 5.82 MG/DL (0.55-1.30); GLOMERULAR FILTRATION RATE 7.6 (>39); MAGNESIUM LEVEL 1.9 MG/DL (1.8-2.4); POTASSIUM SERUM 3.9 MEQ/L (3.5-5.1)
[2019-04-16 06:55] LABS: ANISOCYTOSIS 2+; ATYPICAL LYMPH 1 % (0-5); BASOPHILS 2 % (0-4); EOSINOPHILS 6 % (0-5); LYMPHOCYTES 17 % (16-52); METAMYELOCYTES 2 % (0-0); MONOCYTES 11 % (0-8); MYELOCYTES 2 % (0-0); NEUTROPHILS 59 % (35-75); PLATELET ESTIMATE NORMAL (NORMAL)
[2019-04-16 06:56] LABS: HYPOCHROMASIA 1+
[2019-04-16 06:57] LABS: POLYCHROMASIA 1+
--- NOTE | 2019-04-16 07:52 | REP ---
REASON FOR EXAM: Dyspnea. There is cardiomegaly accentuated by technique. The lung multani are unchanged. There are fibrotic changes. No acute patchy parenchymal opacities or pleural effusions have developed. There is no change in the osseous structures. IMPRESSION:No acute cardiopulmonary disease. Electronically Signed by Gómez Saleh DO 04/16/2019 08:41 A
[2019-04-16] MEDS: DOCUSATE SODIUM 100 MG CAP PO SCH ×2 (09:00→20:43)
[2019-04-16] MEDS: HEPARIN SOD (PORCINE) 5000 UNITS/ML VIAL SC SCH ×2 (09:11→20:54)
[2019-04-16] MEDS: GABAPENTIN 300 MG CAP PO SCH ×2 (09:12→20:54)
[2019-04-16] MEDS: CALCIUM CARBONATE 500 MG CHEW U/D PO SCH ×3 (09:12→17:40)
[2019-04-16] MEDS: DULoxetine 30 MG CAP (CYMBALTA) PO SCH (09:12)
[2019-04-16] MEDS: METOPROLOL SUCC *XL* 25MG TAB (TopROL *XL*) PO SCH ×2 (09:12→20:54)
[2019-04-16] MEDS: PANTOPRAZOLE 40MG TAB (PROTONIX) PO SCH (09:12)
[2019-04-16] MEDS: HumaLOG INSULIN (NovoLOG) PER UNIT SC SCH ×4 (09:13→20:56)
[2019-04-16] MEDS: LEVEMIR (INSULIN DETEMIR) 1 UNITS/0.01ML SC SCH ×2 (09:13→20:55)
[2019-04-16] MEDS: EUCERIN 120GM CREAM TOP SCH ×2 (09:14→20:56)
[2019-04-16] MEDS: ACETAMINOPHEN TAB 650MG DOSE (2X325MG) PO PRN ×2 (10:27→20:56)
--- NOTE | 2019-04-16 11:57 | IPNPDOC ---
Subjective Date Seen The patient was seen on 04/16/19. Subjective Chief Complaint/HPI Patient is a 68-year-old female, past medical history significant for end-stage renal disease on hemodialysis, advanced liver cirrhosis requiring paracentesis every 2 weeks, diastolic heart failure, CAD, hyperparathyroidism, hypothyroidism, depression and anxiety, type 2 diabetes mellitus. Patient was admitted for evaluation of volume overload and worsening foot infection. Patient subsequently had left second and third toe amputation and later BKA. She was discharged to inpatient rehabilitation unit for further evaluation and management mobilization and strengthening. Events since last encounter Yesterday patient had episode of diaphoresis, hypotension for which narcan was administered. No further overnight events reported by staff. oxycodone was discontinued. Today feels much better, has no complaints, paracentesis is planned for later today. Hemodialysis has been moved to Tuesday and Tuesday. Night was uneventf ul, and denies chills, fever, chest pain, shortness of breath Objective Physical Examination General Exam: Positive: Alert, Cooperative, No Acute Distress Eye Exam: Positive: PERRLA, Sclera icteric ENT Exam: Positive: Atraumatic, Mucous membr. moist/pink Neck Exam: Positive: Supple Chest Exam: Positive: Clear to auscultation, Normal air movement Heart Exam: Positive: Rate Normal Telemetry: Positive: Sinus Abdomen Exam: Positive: Normal bowel sounds, Other (distended with ascites and edema) Extremity Exam: Positive: Edema, Tenderness, Other (Left BKA) Neuro Exam: Positive: Normal Speech Psych Exam: Positive: Mental status NL, Oriented x 3; Negative: Anxiety A-FIB/CHADSVASC A-FIB History Current/History of A-Fib/PAF?: No Current Oral Anticoagulant The: No Assessment /Plan Assessment Charcots foot and left foot abscess -S/P left BKA -Continued on antibiotic therapy with vancomycin -S/P left toes, foot,,BKA amputation -Continued on antibiotic therapy with vancomycin -Dosing and monitoring per pharmacy -ID specialist on board Acute on chronic diastolic heart failure -end stage liver disease and ESRD with limited options for fluid removal -continue strict volume control -paracentesis for ascites q 2 weeks-planned today -HD and fluid removal by nephrology team End-stage liver disease -With re-occurring ascites requiring paracentesis every 2 weeks -Paracentesis today -Continue Volume control -Paracentesis management per GI -Hold blood thinners prior to paracentesis -Adjust doses of medications for underlying hepatic failure Hypertension -Intermittent episodes of hypotension -Blood pressure monitoring unit protocol -Continue antihypertensives with holding parameters ESRD -Hemodialysis management by nephrology -appreciate input Hyperkalemia -continue monitoring of electrolytes daily -continue ventressa -Hemodialysis management by nephrology team -Avoidance of POLLO/ARBS Anemia -S/P transfusion 04/09 -due to chronic disease -continued on Venofer with HD Ear Pain -S/P flushing and debridement left ear yesterday DVT prophylaxis -continue heparin SQ Q8 -holding today for paracentesis Plan/VTE VTE Prophylaxis Ordered?: Yes VTE Exclusion Pharmacological: Bleeding Risk VS, I&O, 24H, Fishbone Vital Signs/I&O Vital Signs Date Time Temp Pulse Resp B/P (MAP) Pulse Ox O2 Delivery O2 Flow Rate FiO2 04/16/19 09:12 68 119/67 04/16/19 09:00 1.0 04/16/19 06:00 98.1 16 95 I&O- Last 24 Hours up to 6 AM 04/16/19 06:00 Intake Total 600 ml Balance 600 ml Laboratory Data 24H LABS Laboratory Tests 2 04/15/19 12:11: Bedside Glucose (Misc Panel) 117H 04/15/19 15:01: Bedside Glucose (Misc Panel) 147H 04/15/19 16:01: Blood Gas Bicarbonate Standard 22.8, Arterial Blood pH 7.353, Arterial Blood Partial Pressure CO2 43.3, Arterial Blood Partial Pressure O2 108.6H, Arterial Blood Total CO2 24.9, Arterial Blood HCO3 23.5, Arterial Blood Base Excess -2.0, Arterial Blood Oxygen Saturation 98.3 04/15/19 16:02: Anion Gap 10, Glomerular Filtration Rate 8.6L, Blood Urea Nitrogen 48H, Creatinine 5.25H, Sodium Level 138, Potassium Level 3.9, Chloride Level 103, Carbon Dioxide Level 25, Calcium Level 7.5L, Aspartate Amino Transf (AST/SGOT) 23, Alanine Aminotransferase (ALT/SGPT) 12, Alkaline Phosphatase 400H, Total Guido irubin 0.4, Total Protein 5.6L, Albumin 1.4L, Albumin/Globulin Ratio 0.33L 04/15/19 16:52: Bedside Glucose (Misc Panel) 145H 04/15/19 19:44: Bedside Glucose (Misc Panel) 179H 04/16/19 06:03: Immature Granulocyte % (Auto) , Nucleated Red Blood Cells % (auto) 1.0H, Neutrophils 59, Lymphocytes (Manual) 17, Monocytes (Manual) 11H, Eosinophils (Manual) 6H, Basophils (Manual) 2, Metamyelocytes 2H, Myelocytes 2H, Atypical Lymphocytes 1, Smudge Cells , Platelet Estimate NORMAL, Polychromasia 1+, Hypochromasia 1+, Anisocytosis 2+, Anion Gap 10, Glomerular Filtration Rate 7.6L, Blood Urea Nitrogen 54H, Creatinine 5.82H, Sodium Level 139, Potassium Level 3.9, Chloride Level 103, Carbon Dioxide Level 26, Calcium Level 7.5L, Magnesium Level 1.9 CBC/BMP Laboratory Tests 04/15/19 16:02 Calcium Level 7.5 L, Aspartate Amino Transf (AST/SGOT) 23, Alanine Aminotransferase (ALT/SGPT) 12, Alkaline Phosphatase 400 H, Total Bilirubin 0.4, Total Protein 5.6 L, Albumin 1.4 L 04/16/19 06:03 Calcium Level 7.5 L, Red Blood Count 3.29 L, Mean Corpuscular Volume 97.6 H, Mean Corpuscular Hemoglobin 29.2, Mean Corpuscular Hemoglobin Concent 29.9 L, Red Cell Distribution Width 18.9 H YESSY CAMPOS [employer] DEVELOPER April 16, 2019 11:57
[2019-04-16 14:00] VITALS: BP 144/67
--- NOTE | 2019-04-16 15:09 | IPNPDOC ---
Date Seen The patient was seen on 04/16/19. Progress Note VASCULAR SURGERY Dr Estrella HPI: 68-year-old female admitted to [facility] S/P guilotine amputation Left foot as per Dr Estrella 04/02/19 with completion of Left BKA 04/06/19. Denies any fevers, chills, weakness, fatigue, Headache, Chest Pain, Shortness of breath, cough, palpitations, abdominal pain, N/V/D or changes in bowel or bladder habits. Medical History HFpEF, grade II diastolic dysfxn, moderate LVH, mild pulm art HTN 09/14 echo Cirrhosis with hx metabolic encephalopathy, undergoes paracentesis every 2 weeks, S/P paracentesis 04/16/19. 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 Left arm AV fistula. Appendectomy. Hysterectomy. Bilateral cataracts. PE: GEN: 68 yo F, appears stated age. No acute distress. Alert. HEENT: Normocephalic, atraumatic. No facial asymmetry. Moist mucous membranes. CHEST: Regular rate and rhythm, +S1, +S2 LUNGS: Clear to auscultation bilaterally. No wheezes, rales, or rhonchi. ABD: Round, distended, nontender. +Bowel sounds throughout. EXT: S/P BKA LLE, michelle intact, dark eschar appearing areas anteriorly with surrounding erythema noted. NEURO: Alert and oriented x 3. Cranial nerves III-XII are intact. No focal deficits appreciated. A&P: 68-year-old female admitted to [facility] S/P guilotine amputation Left foot as per Dr Estrella 04/02/19 with completion of Left BKA 04/06/19 S/P guilotine amputation Left foot as per Dr Estrella 04/02/19, completion of Left BKA 04/06/19. Continue dry dressing daily. Patient is afebrile. WBC 9.6 Patient remains on IV Vanco Zosyn d/cd Relayed to Dr Estrella appearance of incision and concerns for poor healing. He will examine and provide further recommendations. DVT ppx: heparin sc A-FIB/CHADSVASC A-FIB History Current/History of A-Fib/PAF?: No VS, I&O, 24H, Fishbone Vital Signs/I&O Vital Signs Date Time Temp Pulse Resp B/P (MAP) Pulse Ox O2 Delivery O2 Flow Rate FiO2 04/16/19 09:12 68 119/67 04/16/19 09:00 1.0 04/16/19 06:00 98.1 16 95 I&O- Last 24 Hours up to 6 AM 04/16/19 06:00 Intake Total 600 ml Balance 600 ml Laboratory Data 24H LABS Laboratory Tests 2 04/15/19 16:01: Blood Gas Bicarbonate Standard 22.8, Arterial Blood pH 7.353, Arterial Blood Partial Pressure CO2 43.3, Arterial Blood Partial Pressure O2 108.6H, Arterial Blood Total CO2 24.9, Arterial Blood HCO3 23.5, Arterial Blood Base Excess -2.0, Arterial Blood Oxygen Saturation 98.3 04/15/19 16:02: Anion Gap 10, Glomerular Filtration Rate 8.6L, Blood Urea Nitrogen 48H, Creatinine 5.25H, Sodium Level 138, Potassium Level 3.9, Chloride Level 103, Carbon Dioxide Level 25, Calcium Level 7.5L, Aspartate Amino Transf (AST/SGOT) 23, Alanine Aminotransferase (ALT/SGPT) 12, Alkaline Phosphatase 400H, Total Bilirubin 0.4, Total Protein 5.6L, Albumin 1.4L, Albumin/Globulin Ratio 0.33L 04/15/19 16:52: Bedside Glucose (Misc Panel) 145H 04/15/19 19:44: Bedside Glucose (Misc Panel) 179H 04/16/19 06:03: Immature Granulocyte % (Auto) , Nucleated Red Blood Cells % (auto) 1.0H, Neutrophils 59, Lymphocytes (Manual) 17, Monocytes (Manual) 11H, Eosinophils (Manual) 6H, Basophils (Manual) 2, Metamyelocytes 2H, Myelocytes 2H, Atypical Lymphocytes 1, Smudge Cells , Platelet Estimate NORMAL, Polychromasia 1+, Hypochromasia 1+, Anisocytosis 2+, Anion Gap 10, Glomerular Filtration Rate 7.6L, Blood Urea Nitrogen 54H, Creatinine 5.82H, Sodium Level 139, Potassium Lev el 3.9, Chloride Level 103, Carbon Dioxide Level 26, Calcium Level 7.5L, Magnesium Level 1.9 04/16/19 12:18: Bedside Glucose (Misc Panel) 100 CBC/BMP Laboratory Tests 04/15/19 16:02 Calcium Level 7.5 L, Aspartate Amino Transf (AST/SGOT) 23, Alanine Aminotran sferase (ALT/SGPT) 12, Alkaline Phosphatase 400 H, Total Bilirubin 0.4, Total Protein 5.6 L, Albumin 1.4 L 04/16/19 06:03 Calcium Level 7.5 L, Red Blood Count 3.29 L, Mean Corpuscular Volume 97.6 H, Mean Corpuscular Hemoglobin 29.2, Mean Corpuscular Hemoglobin Concent 29.9 L, Red Cell Distribution Width 18.9 H Trini Vieira April 16, 2019 15:09
[2019-04-16] MEDS: **VANCO AFTER HD** MISC XX SCH (15:54)
--- NOTE | 2019-04-16 18:44 | REP ---
Ultrasound-guided paracentesis The procedure was performed under the direct supervision of Dr. Rivas. The risks and benefits of the procedure were explained to the patient and informed consent was obtained. The largest pocket of fluid was localized in the right flank using ultrasound guidance. The skin was prepped and draped in a sterile fashion. 1% lidocaine was used as a local anesthetic. An 8-Kinyarwanda multi side-hole catheter was inserted using trocar technique. 9100 ml of yellow fluid was withdrawn and discarded. The patient tolerated the procedure well and there were no immediate complications. After the appropriate amount of monitored convalescence the patient was discharged from the department. Reviewed by ANTONIO Curiel 04/16/2019 03:43 P Electronically Signed by Aureliano Rivas MD 04/16/2019 06:34 P
[2019-04-16 20:00] VITALS: BP 133/62
[2019-04-16] MEDS: SENNA 8.6 MG TAB (SENOKOT) PO SCH (20:44)
[2019-04-16] MEDS: rOPINIRole 1MG TAB PO SCH (20:54)
[2019-04-16] MEDS: SIMVASTATIN 20 MG TAB PO SCH (20:55)
[2019-04-17] MEDS: LEVOTHYROXINE 125MCG TABLET (0.125MG) PO SCH (06:20)
[2019-04-17 06:33] LABS: BASO # 0.1 10^3/uL (0.0-0.2); BASO % 0.8 % (0.0-1.0); EOS # 0.3 10^3/uL (0.0-0.50); EOS % 2.5 % (0.0-3.0); HEMATOCRIT 35.6 % (36.0-47.0); HEMOGLOBIN 10.4 g/dl (12.0-15.5); LYMPH # 1.5 10^3/uL (1.5-4.5); LYMPH % 13.6 % (24.0-44.0); MEAN CORPUSCULAR HGB CONC 29.2 g/dl (32.0-36.5); MEAN CORPUSCULAR VOLUME 99.2 fl (80.0-96.0); MONO # 1.3 10^3/uL (0.0-0.8); MONO % 11.6 % (0.0-5.0); NEUTROPHILS # 7.4 10^3/uL (1.8-7.7); NEUTROPHILS % 66.8 % (36.0-66.0); PLATELET COUNT, AUTOMATED 191 10^3/uL (150-450); RED BLOOD COUNT 3.59 10^6/uL (4.00-5.40); WHITE BLOOD COUNT 11.1 10^3/uL (4.0-10.0)
[2019-04-17 06:53] LABS: CALCIUM LEVEL 7.6 MG/DL (8.8-10.2); CREATININE FOR GFR 6.54 MG/DL (0.55-1.30); GLOMERULAR FILTRATION RATE 6.7 (>39); MAGNESIUM LEVEL 1.9 MG/DL (1.8-2.4); POTASSIUM SERUM 4.2 MEQ/L (3.5-5.1)
[2019-04-17] MEDS: DOCUSATE SODIUM 100 MG CAP PO SCH ×2 (08:03→21:00)
[2019-04-17] MEDS: CALCIUM CARBONATE 500 MG CHEW U/D PO SCH ×3 (09:03→18:13)
[2019-04-17] MEDS: PANTOPRAZOLE 40MG TAB (PROTONIX) PO SCH (09:04)
[2019-04-17] MEDS: METOPROLOL SUCC *XL* 25MG TAB (TopROL *XL*) PO SCH ×2 (09:04→21:46)
[2019-04-17] MEDS: CLOPIDOGREL 75 MG TAB PO SCH (09:04)
[2019-04-17] MEDS: DULoxetine 30 MG CAP (CYMBALTA) PO SCH (09:04)
[2019-04-17] MEDS: GABAPENTIN 300 MG CAP PO SCH ×2 (09:04→21:47)
[2019-04-17] MEDS: HumaLOG INSULIN (NovoLOG) PER UNIT SC SCH ×4 (09:05→21:00)
[2019-04-17] MEDS: HEPARIN SOD (PORCINE) 5000 UNITS/ML VIAL SC SCH ×2 (09:05→21:46)
[2019-04-17] MEDS: LEVEMIR (INSULIN DETEMIR) 1 UNITS/0.01ML SC SCH ×2 (09:05→21:47)
[2019-04-17] MEDS: EUCERIN 120GM CREAM TOP SCH ×2 (09:06→21:47)
[2019-04-17] MEDS: ACETAMINOPHEN TAB 650MG DOSE (2X325MG) PO PRN ×2 (09:11→21:46)
[2019-04-17] MEDS ORDERED: LIDOCAINE 1% SDV 5 ML VIAL SQ ONE (10:15)
[2019-04-17] MEDS ORDERED: HEPARIN 1,000 UNITS/ML 10ML VIAL (FOR RADIOLOGY& DIALYSIS ONLY) IV ONE (10:15)
--- NOTE | 2019-04-17 10:32 | IPNPDOC ---
Date Seen The patient was seen on 04/17/19. Progress Note VASCULAR SURGERY Dr Estrella HPI: 68-year-old female admitted to [facility] S/P guilotine amputation Left foot as per Dr Estrella 04/02/19 with completion of Left BKA 04/06/19. The pt continues to have drainage from left BKA. Denies any fevers, chills, weakness, fatigue, Headache, Chest Pain, Shortness of breath, cough, palpitations, abdominal pain, N/V/D or changes in bowel or bladder habits. Medical History HFpEF, grade II diastolic dysfxn, moderate LVH, mild pulm art HTN 09/14 echo Cirrhosis with hx metabolic encephalopathy, undergoes paracentesis every 2 weeks, S/P paracentesis 04/16/19. 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 Left arm AV fistula. Appendectomy. Hysterectomy. Bilateral cataracts. PE: GEN: 68 yo F, appears stated age. No acute distress. Alert. HEENT: Normocephalic, atraumatic. No facial asymmetry. Moist mucous membranes. CHEST: Regular rate and rhythm, +S1, +S2 LUNGS: Clear to auscultation bilaterally. No wheezes, rales, or rhonchi. ABD: Round, distended, nontender. +Bowel sounds throughout. EXT: S/P BKA LLE, michelle intact, yellowish drainage noted. Still with dark discolored area/eschar anteriorly. NEURO: Alert and oriented x 3. Cranial nerves III-XII are intact. No focal de ficits appreciated. A&P: 68-year-old female admitted to [facility] S/P guilotine amputation Left foot as per Dr Estrella 04/02/19 with completion of Left BKA 04/06/19 S/P guilotine amputation Left foot as per Dr Estrella 04/02/19, completion of Left BKA 04/06/19. Continue dry dressing daily. Patient is afebrile. WBC 11.1 Patient remains on IV Vanco. IV Zosyn added back by Dr Cotton. Wound culture obtained this AM. CRP added to labs. Consider ID CLT. Relayed to Dr Estrella appearance of incision and concerns for poor healing. He will examine and provide further recommendations. DVT ppx: heparin sc A-FIB/CHADSVASC A-FIB History Current/History of A-Fib/PAF?: No VS, I&O, 24H, Fishbone Vital Signs/I&O Vital Signs Date Time Temp Pulse Resp B/P (MAP) Pulse Ox O2 Delivery O2 Flow Rate FiO2 04/17/19 09:04 73 133/62 04/17/19 09:00 1.0 04/16/19 20:00 97.1 16 98 I&O- Last 24 Hours up to 6 AM 04/17/19 06:00 Intake Total 1000 ml Balance 1000 ml Laboratory Data 24H LABS Laboratory Tests 2 04/16/19 12:18: Bedside Glucose (Misc Panel) 100 04/16/19 17:02: Bedside Glucose (Misc Panel) 169H 04/16/19 20:23: Bedside Glucose (Misc Panel) 183H 04/17/19 06:18: Immature Granulocyte % (Auto) 4.7H, White Blood Count 11.1H, Red Blood Count 3.59L, Hemoglobin 10.4L, Hematocrit 35.6L, Mean Corpuscular Volume 99.2H, Mean Corpuscular Hemoglobin 29.0, Mean Corpuscular Hemoglobin Concent 29.2L, Red Cell Distribution Width 18.7H, Platelet Count 191, Neutrophils (%) (Auto) 66.8H, Lymphocytes (%) (Auto) 13.6L, Monocytes (%) (Auto) 11.6H, Eosinophils (%) (Auto) 2.5, Basophils (%) (Auto) 0.8, Neutrophils # (Auto) 7.4, Lymphocytes # (Auto) 1.5, Monocytes # (Auto) 1.3H, Eosinophils # (Auto) 0.3, Basophils # (Auto) 0.1, Nucleated Red Blood Cells % (auto) 0.5H, Anion Gap 11, Glomerular Filtration Rate 6.7L, Blood Urea Nitrogen 65H, Creatinine 6.54H, Sodium Level 136, Potassium Level 4.2, Chloride Level 103, Carbon Dioxide Level 22, Calcium Level 7.6L, Magnesium Level 1.9 CBC/BMP Laboratory Tests 04/17/19 06:18 Red Blood Count 3.59 L, Mean Corpuscular Volume 99.2 H, Mean Corpuscular Hemoglobin 29.0, Mean Corpuscular Hemoglobin Concent 29.2 L, Red Cell Distribution Width 18.7 H, Neutrophils (%) (Auto) 66.8 H, Lymphocytes (%) (Auto) 13.6 L, Monocytes (%) (Auto) 11.6 H, Eosinophils (%) (Auto) 2.5, Basophils (%) (Auto) 0.8, Neutrophils # (Auto) 7.4, Lymphocytes # (Auto) 1.5, Monocytes # (Auto) 1.3 H, Eosinophils # (Auto) 0.3, Basophils # (Auto) 0.1, Calcium Level 7.6 L Microbiology Microbiology 04/17/19 Gram Stain, Received Pending 04/17/19 Wound Culture, Received Pending Trini Vieira April 17, 2019 10:22
--- NOTE | 2019-04-17 11:22 | IPN ---
DATE OF SERVICE: 04/16/2019 SUBJECTIVE: The patient is seen and examined this morning at the bedside in the rehabilitation unit. She underwent paracentesis earlier today with 9.1 liters of fluid removed. She symptomatically feels better and reports improvement in respirations. She otherwise denies any new complaints. Has been having a lot of drainage from the left below the knee amputation (BKA). VITAL SIGNS: Temperature 96.7, pulse 68, respiratory rate 18, blood pressure 144/67, saturating 99% on 1 liter nasal cannula. Intake yesterday was 790. Paracentesis today removed 9.1 liters. Weight is the bed scale is not recorded. GENERAL: The patient is seen lying in bed in the rehabilitation unit, awake, alert, oriented, in no acute distress. HEAD AND NECK: Extraocular muscles are intact. The tongue is moist. Neck is supple. Jugular veins are elevated. CARDIAC: S1, S2, regular rate and rhythm. LUNGS: Clear to auscultation bilaterally. No crackles, rales, or wheeze. ABDOMEN: Soft and the ascitic fluid is lessened. There are bowel sounds. EXTREMITIES: Show a left lower extremity below the knee amputation with dressings which drainage that is serosanguineous. The right lower extremity is wrapped in dressings up to the knee and there is 2+ edema bilaterally that extends up to the hips, thigh, and dependent area. NEUROLOGIC: She is oriented times three. No focal deficits. Dialysis access: The left upper extremity fistula is patent with thrill and bruit. LABS: White count 9.6, hemoglobin 9.6, sodium 139, potassium 3.9, magnesium 1.9. IMPATIENT MEDICATIONS: Reviewed by myself and no change from prior. PROBLEMS: 1. End-stage renal disease on hemodialysis on a Tuesday, Tuesday, Tuesday schedule. She had a paracentesis done today hence we will not dialyze her today. There was 9.1 liters of fluid removed with the paracentesis and I am concerned for hypotension of hemodialysis if we attempt to dialyze her today hence her next dialysis session will be on Tuesday. Her electrolytes are accetable. Her fistula is in good use. She is grossly volume overloaded. 2. Decompensated diastolic congestive heart failure. Patient is significantly volume overloaded. We have had trouble removing fluid with her hemodialysis treatments of late due to hypotension of hemodialysis. She has not tolerated aggressive fluid removal. She will be dialyzed on Tuesday and then again on Tuesday and we will remove fluid as tolerated by the hemodynamics. Her albumin is very low and if the hypotension of hemodialysis persists we will give her albumin infusions with dialysis in order to remove fluid. 3. Anemia related to chronic renal failure and iron deficiency. She continues on Aranesp and Venofer and hemoglobin is improving. 4. Recurrent ascites and cirrhosis status post 9.1 liter large volume paracentesis today. 5. Protein calorie malnutrition. Encouraged dietary protein. Serum albumin is severally low and is also contributing to her significant peripheral edema. We will consider albumin with dialysis in order to better remove fluid.
--- NOTE | 2019-04-17 11:47 | IPNPDOC ---
PM&R Progress Note DATE OF SERVICE: April 16, 2019 [employer] Progress Note SUbjective: PAtient had paracentesis today, reports feeling better, but was upset to know her wound was not healing well and that she would likely need more surgery. REVIEW OF SYSTEMS: The following is a completed review of systems and has been reviewed. Review of systems otherwise unremarkable. PAIN: Patient self reports no pain at rest EYES: Negative for recent vision loss EARS, NOSE, & THROAT: denies dysphagia, rhinorrhea, hearing loss CARDIOVASCULAR: denies chest pain, +exertional dyspnea PULMONARY: Negative. Denies shortness of breath except on exertion GASTROINTESTINAL: + ascites GENITOURINARY: Negative for dysuria MUSCULOSKELETAL: +arthritis, right foot toe amputations, left BKA NEUROLOGICAL: peripheral neuropathy HEMATOLOGICAL: +anemic SKIN: right D1 ischemic ulcer, left BKA incision with blisters, purple-colored patch just beneath incision line PSYCHIATRIC:+anxious All other review of systems found to be negative. PHYSICAL EXAMINATION: VITAL SIGNS: Please see below. GENERAL: Pleasant and cooperative. No acute distress. smiling HEENT: PERRL. Extraocular movements intact. Clear conjunctiva CARDIOVASCULAR: Regular rate and rhythm. No murmurs, rubs, or gallops LUNGS: Clear to auscultation bilaterally. No wheezes. No rhonchi ABDOMEN: Soft, very distended, however minimal pain with palpation, no guarding, Positive bowel sounds. NEUROLOGICAL: Alert and oriented times three. Cranial nerves II through XII grossly intact. Sensation grossly intact in UE, diminished in bilat LE EXTREMITIES: 5-\\5 strength bilateral upper extremities. 5-\\5 strength right lower extremity. 5-/5 strength in left hip flexion knee extension and knee flexion SKIN: left forearm AVF, right calf edematous with erythema (negative Homans) left BKA incision with blisters, eschar patch just beneath incision line with purulence ASSESSMENT:-year-old 68 with past medical history of ESRD on HD and PVD who presents status post left BKA PLAN: 1. Rehab: OT/PT, assess for DME needs, difficulty transferring with slide board 2. Vascular- s/p left BKA on 04/06/[address] Estrella, was on IV Zosyn and Vanco- c/u Vanco, wound today with eschar and purulence, discussed case with vascular who is considering AKA as wound not healing well 3. Skin: left BKA with blisters and signs of poor circulation- c/u dressing changes, avoid use of hangar orthotic as this creates friction and moisture as does not fit securely to patient's limb- wound not healing well 4. CArdiac: pmh CAD s/p 4 stents, medicine consulted, c/u meds -pmh diastolic CHF- on dialysis with renal monitoring fluid balance 5. Resp: requiring supplemental oxygen due to poor ventilation in setting of ascites, encourage incentive spirometry and monitor for infection 6. Renal: ESRD on HD M/W/F- renal consulted 7. GI: pmh cirrhosis with ascites, was getting paracentesis q2 weeks prior to hospitalization, concern for recent bleeding on last procedure 04/05/19- s/p paracentesis today, abdomen softer -protonix and TUMS for dyspepsia and ppx 8. DVT ppx: heparin 9. Pain: NO opioids, patient had altered mental status and low arousal s/p Narcan 04/15/19, c/u tylenol and gabapentin, AVOID adding any opioids as patient as fluctuating levels of arousal throughout the day and needs to be optimized for therapy 10. PScyh: pmh anxiety/depression, c/u home meds 11. Dispo: TBD Allergies Coded Allergies: pregabalin (Verified Adverse Reaction, Intermediate, "feeling weird", SI thoughts., 03/06/19) Vital Signs Vital Signs Date Time Temp Pulse Resp B/P (MAP) Pulse Ox O2 Delivery O2 Flow Rate FiO2 04/17/19 09:04 73 133/62 04/17/19 09:00 1.0 04/16/19 20:00 97.1 16 98 Laboratory Data CBC/BMP Laboratory Tests 04/17/19 06:18 Red Blood Count 3.59 L, Mean Corpuscular Volume 99.2 H, Mean Corpuscular Hemoglobin 29.0, Mean Corpuscular Hemoglobin Concent 29.2 L, Red Cell Distribution Width 18.7 H, Neutrophils (%) (Auto) 66.8 H, Lymphocytes (%) (Auto) 13.6 L, Monocytes (%) (Auto) 11.6 H, Eosinophils (%) (Auto) 2.5, Basophils (%) (Auto) 0.8, Neutrophils # (Auto) 7.4, Lymphocytes # (Auto) 1.5, Monocytes # (Auto) 1.3 H, Eosinophils # (Auto) 0.3, Basophils # (Auto) 0.1, Calcium Level 7.6 L Labs 24H Laboratory Tests 2 04/16/19 12:18: Bedside Glucose (Misc Panel) 100 04/16/19 17:02: Bedside Glucose (Misc Panel) 169H 04/16/19 20:23: Bedside Glucose (Misc Panel) 183H 04/17/19 06:18: Immature Granulocyte % (Auto) 4.7H, White Blood Count 11.1H, Red Blood Count 3.5 9L, Hemoglobin 10.4L, Hematocrit 35.6L, Mean Corpuscular Volume 99.2H, Mean Corpuscular Hemoglobin 29.0, Mean Corpuscular Hemoglobin Concent 29.2L, Red Cell Distribution Width 18.7H, Platelet Count 191, Neutrophils (%) (Auto) 66.8H, Lymphocytes (%) (Auto) 13.6L, Monocytes (%) (Auto) 11.6H, Eosinophils (%) (Auto) 2.5, Basophils (%) (Auto) 0.8, Neutrophils # (Auto) 7.4, Lymphocytes # (Auto) 1.5, Monocytes # (Auto) 1.3H, Eosinophils # (Auto) 0.3, Basophils # (Auto) 0.1, Nucleated Red Blood Cells % (auto) 0.5H, Anion Gap 11, Glomerular Filtration Rate 6.7L, Blood Urea Nitrogen 65H, Creatinine 6.54H, Sodium Level 136, Potassium Level 4.2, Chloride Level 103, Carbon Dioxide Level 22, Calcium Level 7.6L, Magnesium Level 1.9, C-Reactive Protein, Quantitative 15.00H 04/17/19 11:33: Bedside Glucose (Misc Panel) 125H Microbiology Microbiology 04/17/19 Gram Stain, Received Pending 04/17/19 Wound Culture, Received Pending Current Medications Current Medications Current Medications Acetaminophen (Tylenol Tab) 650 mg Q4HP PRN PO MILD PAIN (PS 1-4) Last administ ered on 04/17/19at 09:11; Start 04/12/19 at 12:15 Al Hydrox/Mg Hydrox/Simethicone (Mylanta) 30 ml Q4HP PRN PO DYSPEPSIA; Start 04/12/19 at 12:15 Calcium Carbonate (Tums) 1,000 mg WM PO Last administered on 04/17/19at 09:03; Start 04/12/19 at 12:30 Clopidogrel Bisulfate (PLAVix) 75 mg DAILY PO ; Start 04/13/19 at 09:00; Stop 04/13/19 at 09:00; Status DC Clopidogrel Bisulfate (PLAVix) 75 mg DAILY PO Last administered on 04/17/19at 09:04; Start 04/17/19 at 09:00 Darbepoetin Yordan (Aranesp (Dialysis Use)) 100 mcg HD IV ; Start 04/13/19 at 08:30 Dextrose (Dextrose 50%) 25 ml ASDIRECTED PRN IV SEE LABEL COMMENTS; Start 04/12/19 at 12:15 Docusate Sodium (Colace) 100 mg BID PO Last administered on 04/13/19at 08:36; Start 04/12/19 at 21:00 Duloxetine HCl (Cymbalta) 30 mg DAILY PO Last administered on 04/17/19at 09:04; Start 04/13/19 at 09:00 Gabapentin (Neurontin) 300 mg BID PO Last administered on 04/17/19at 09:04; Start 04/12/19 at 21:00 Glucagon (Glucagon) 1 mg ASDIRECTED PRN SC SEE LABEL COMMENTS; Start 04/12/19 at 12:15 Glucose (Glucose) 16 GM ASDIRECTED PRN PO SEE LABEL COMMENTS; Start 04/12/19 at 12:15 Heparin Sodium (Porcine) (Heparin) 5,000 units Q12H SC Last administered on at 09:05; Start 04/12/19 at 21:00 Insulin Detemir (Levemir Insulin) 10 units DAILY SC Last administered on 04/17/19at 09:05; Start 04/13/19 at 09:00 Insulin Detemir (Levemir Insulin) 10 units QHS SC Last administered on 04/16/19at 20:55; Start 04/12/19 at 21:00 Insulin Human Lispro (HumaLOG INSULIN) SEE PROTOCOL TABLE AC SC Last administered on 04/17/19at 09:05; Start 04/12/19 at 17:30 Insulin Human Lispro (HumaLOG INSULIN) SEE PROTOCOL TABLE QHS SC ; Start 04/12/19 at 21:00 Iron (Venofer) 100 mg HD IV ; Start 04/13/19 at 16:15 Levothyroxine Sodium (Synthroid) 125 mcg DAILY@06 PO Last administered on 04/17/19at 06:20; Start 04/13/19 at 06:00 Metoprolol Succinate (TopROL XL) 25 mg BID PO Last administered on 04/17/19at 09:04; Start 04/12/19 at 21:00 Mineral Oil/White Petrolatum (Eucerin) TO RLE BID TOP Last administered on 04/17/19at 09:06; Start 04/12/19 at 21:00 Morphine Sulfate (Morphine Sulfate Inj) 4 mg Q4HP PRN IV SEVERE PAIN (PS 8-10); Start 04/12/19 at 16:00; Stop 04/13/19 at 10:52; Status DC Naloxone HCl (Narcan) 0.2 mg STAT STAT IV Last administered on 04/15/19at 15: 38; Start 04/15/19 at 15:30; Stop 04/15/19 at 15:31; Status DC Non-Formulary Medication ( See Comment Field Below ) CHECK TO SEE IF THE PATIENT... DAILY@1600 XX ; Start 04/12/19 at 16:00 Ondansetron HCl (Zofran) 4 mg Q6HP PRN PO NAUSEA; Start 04/12/19 at 12:15 Oxycodone HCl (OxyCONTIN) 10 mg BID PO Last administered on 04/15/19at 08:41; Start 04/12/19 at 21:00; Stop 04/15/19 at 18:30; Status DC Pantoprazole Sodium (Protonix) 40 mg DAILY PO Last administered on 04/17/19at 09:04; Start 04/13/19 at 09:00 Patiromer (Veltassa) 8.4 gm ASDIRECTED PRN PO SEE INSTRUCTIONS; Start 04/12/19 at 12:15; Status Cancel Ropinirole HCl (Requip) 1 mg QHS PO Last administered on 04/16/19at 20:54; Start 04/12/19 at 21:00 Senna (Senokot) 1 tab QHS PO Last administered on 04/12/19at 21:39; Start 04/12/19 at 21:00 Simvastatin (Zocor) 20 mg QHS PO Last administered on 04/16/19at 20:55; Start 04/12/19 at 21:00 Trazodone HCl (Desyrel) 50 mg QPM PRN PO INSOMNIA; Start 04/12/19 at 16:00 Vancomycin HCl 750 mg/IV Miscellaneous Supplies 15 ml @ 15 mls/hr ASDIRECTED IV ; Start 04/12/19 at 12:15; Stop 04/12/19 at 13:03; Status DC Vancomycin HCl 750 mg/IV Miscellaneous Supplies 1 each/ Dextrose 275 ml @ 275 mls/hr HD IV ; Start 04/12/19 at 13:15 A-FIB/CHADSVASC A-FIB History Current/History of A-Fib/PAF?: No WALTER BARRERA MD April 17, 2019 11:47
--- NOTE | 2019-04-17 11:48 | IPNPDOC ---
PM&R Progress Note DATE OF SERVICE: April 17, 2019 Recreational Director Progress Note Subjective: PAtient had dialysis today, seen after sitting up in bed talking with her daughter, stating she felt ok. REVIEW OF SYSTEMS: The following is a completed review of systems and has been reviewed. Review of systems otherwise unremarkable. PAIN: Patient self reports no pain at rest EYES: Negative for recent vision loss EARS, NOSE, & THROAT: denies dysphagia, rhinorrhea, hearing loss CARDIOVASCULAR: denies chest pain, +exertional dyspnea PULMONARY: Negative. Denies shortness of breath except on exertion GASTROINTESTINAL: + ascites GENITOURINARY: Negative for dysuria MUSCULOSKELETAL: +arthritis, right foot toe amputations, left BKA NEUROLOGICAL: peripheral neuropathy HEMATOLOGICAL: +anemic SKIN: right D1 ischemic ulcer, left BKA incision with blisters, eschar patch just beneath incision line PSYCHIATRIC:+anxious All other review of systems found to be negative. PHYSICAL EXAMINATION: VITAL SIGNS: Please see below. GENERAL: Pleasant and cooperative. No acute distress. smiling HEENT: PERRL. Extraocular movements intact. Clear conjunctiva CARDIOVASCULAR: Regular rate and rhythm. No murmurs, rubs, or gallops LUNGS: Clear to auscultation bilaterally. No wheezes. No rhonchi ABDOMEN: Soft, very distended, however minimal pain with palpation, no guarding, Positive bowel sounds. NEUROLOGICAL: Alert and oriented times three. Cranial nerves II through XII grossly intact. Sensation grossly intact in UE, diminished in bilat LE EXTREMITIES: 5-\\5 strength bilateral upper extremities. 5-\\5 strength right lower extremity. 5-/5 strength in left hip flexion knee extension and knee flexion SKIN: left forearm AVF, right calf edematous with erythema (negative Homans) left BKA incision with blisters, eschar patch just beneath incision line with purulence ASSESSMENT:-year-old 68 with past medical history of ESRD on HD and PVD who presents status post left BKA PLAN: 1. Rehab: OT/PT, assess for DME needs, difficulty transferring with slide board, improving squat pivots 2. Vascular- s/p left BKA on 04/06/[address] Estrella, was on IV Zosyn and Vanco- c/u Vanco, wound with eschar and purulence, discussed case with vascular, CRP elevated to 15- will add back Zosyn and awaiting Dr. Estrella's decision regarding treatment 3. Skin: left BKA with blisters and signs of poor circulation- c/u dressing changes, avoid use of hangar orthotic as this creates friction and moisture as does not fit securely to patient's limb- wound not healing well 4. CArdiac: pmh CAD s/p 4 stents, medicine consulted, c/u meds -pmh diastolic CHF- on dialysis with renal monitoring fluid balance 5. Resp: requiring supplemental oxygen due to poor ventilation in setting of ascites, encourage incentive spirometry and monitor for infection 6. Renal: ESRD on HD //, however Tuesday's was pushed back to Tuesday due to paracentesis on Tuesday, will go to HD tomorrow and return to [facility]- renal consulted 7. GI: pmh cirrhosis with ascites, was getting paracentesis q2 weeks prior to hospitalization, concern for recent bleeding on last procedure 04/05/19- s/p paracentesis 04/16/19, abdomen softer -protonix and TUMS for dyspepsia and ppx 8. DVT ppx: heparin 9. Pain: NO opioids, patient had altered mental status and low arousal s/p Narcan 04/15/19, c/u tylenol and gabapentin, AVOID adding any opioids as patient as fluctuating levels of arousal throughout the day and needs to be optimized for therapy 10. PScyh: pmh anxiety/depression, c/u home meds 11. Dispo: TBD Allergies Coded Allergies: pregabalin (Verified Adverse Reaction, Intermediate, "feeling weird", SI thoughts., 03/06/19) Vital Signs Vital Signs Date Time Temp Pulse Resp B/P (MAP) Pulse Ox O2 Delivery O2 Flow Rate FiO2 04/17/19 09:04 73 133/62 04/17/19 09:00 1.0 04/16/19 20:00 97.1 16 98 Laboratory Data CBC/BMP Laboratory Tests 04/17/19 06:18 Red Blood Count 3.59 L, Mean Corpuscular Volume 99.2 H, Mean Corpuscular Hemoglobin 29.0, Mean Corpuscular Hemoglobin Concent 29.2 L, Red Cell Distribution Width 18.7 H, Neutrophils (%) (Auto) 66.8 H, Lymphocytes (%) (Auto) 13.6 L, Monocytes (%) (Auto) 11.6 H, Eosinophils (%) (Auto) 2.5, Basophils (%) (Auto) 0.8, Neutrophils # (Auto) 7.4, Lymphocytes # (Auto) 1.5, Monocytes # (Auto) 1.3 H, Eosinophils # (Auto) 0.3, Basophils # (Auto) 0.1, Calcium Level 7.6 L Labs 24H Laboratory Tests 2 04/16/19 12:18: Bedside Glucose (Misc Panel) 100 04/16/19 17:02: Bedside Glucose (Misc Panel) 169H 04/16/19 20:23: Bedside Glucose (Misc Panel) 183H 04/17/19 06:18: Immature Granulocyte % (Auto) 4.7H, White Blood Count 11.1H, Red Blood Count 3.59L, Hemoglobin 10.4L, Hematocrit 35.6L, Mean Corpuscular Volume 99.2H, Mean Corpuscular Hemoglobin 29.0, Mean Corpuscular Hemoglobin Concent 29.2L, Red Cell Distribution Width 18.7H, Platelet Count 191, Neutrophils (%) (Auto) 66.8H, Lymphocytes (%) (Auto) 13.6L, Monocytes (%) (Auto) 11.6H, Eosinophils (%) (Auto) 2.5, Basophils (%) (Auto) 0.8, Neutrophils # (Auto) 7.4, Lymphocytes # (Auto) 1.5, Monocytes # (Auto) 1.3H, Eosinophils # (Auto) 0.3, Basophils # (Auto) 0.1, Nucleated Red Blood Cells % (auto) 0.5H, Anion Gap 11, Glomerular Filtration Rate 6.7L, Blood Urea Nitrogen 65H, Creatinine 6.54H, Sodium Level 136, Potassium Level 4.2, Chloride Level 103, Carbon Dioxide Level 22, Calcium Level 7.6L, Magnesium Level 1.9, C-Reactive Protein, Quantitative 15.00H 04/17/19 11:33: Bedside Glucose (Misc Panel) 125H Microbiology Microbiology 04/17/19 Gram Stain - Final, Resulted 04/17/19 Wound Culture, Resulted Pending Current Medications Current Medications Current Medications Acetaminophen (Tylenol Tab) 650 mg Q4HP PRN PO MILD PAIN (PS 1-4) Last administered on 04/17/19at 09:11; Start 04/12/19 at 12:15 Al Hydrox/Mg Hydrox/Simethicone (Mylanta) 30 ml Q4HP PRN PO DYSPEPSIA; Start 04/12/19 at 12:15 Calcium Carbonate (Tums) 1,000 mg WM PO Last administered on 04/17/19at 09:03; Start 04/12/19 at 12:30 Clopidogrel Bisulfate (PLAVix) 75 mg DAILY PO ; Start 04/13/19 at 09:00; Stop 04/13/19 at 09:00; Status DC Clopidogrel Bisulfate (PLAVix) 75 mg DAILY PO Last administered on 04/17/19at 09:04; Start 04/17/19 at 09:00 Darbepoetin Yordan (Aranesp (Dialysis Use)) 100 mcg HD IV ; Start 04/13/19 at 08:30 Dextrose (Dextrose 50%) 25 ml ASDIRECTED PRN IV SEE LABEL COMMENTS; Start 04/12/19 at 12:15 Docusate Sodium (Colace) 100 mg BID PO Last administered on 04/13/19at 08:36; Start 04/12/19 at 21:00 Duloxetine HCl (Cymbalta) 30 mg DAILY PO Last administered on 04/17/19at 09:04; Start 04/13/19 at 09:00 Gabapentin (Neurontin) 300 mg BID PO Last administered on 04/17/19at 09:04; Start 04/12/19 at 21:00 Glucagon (Glucagon) 1 mg ASDIRECTED PRN SC SEE LABEL COMMENTS; Start 04/12/19 at 12:15 Glucose (Glucose) 16 GM ASDIRECTED PRN PO SEE LABEL COMMENTS; Start 04/12/19 at 12:15 Heparin Sodium (Porcine) (Heparin) 5,000 units Q12H SC Last administered on 04/17/19at 09:05; Start 04/12/19 at 21:00 Insulin Detemir (Levemir Insulin) 10 units DAILY SC Last administered on 04/17/19at 09:05; Start 04/13/19 at 09:00 Insulin Detemir (Levemir Insulin) 10 units QHS SC Last administered on 04/16/19at 20:55; Start 04/12/19 at 21:00 Insulin Human Lispro (HumaLOG INSULIN) SEE PROTOCOL TABLE AC SC Last administered on 04/17/19at 09:05; Start 04/12/19 at 17:30 Insulin Human Lispro (HumaLOG INSULIN) SEE PROTOCOL TABLE QHS SC ; Start at 21:00 Iron (Venofer) 100 mg HD IV ; Start 04/13/19 at 16:15 Levothyroxine Sodium (Synthroid) 125 mcg DAILY@06 PO Last administered on 04/17/19at 06:20; Start 04/13/19 at 06:00 Metoprolol Succinate (TopROL XL) 25 mg BID PO Last administered on 04/17/19at 09:04; Start 04/12/19 at 21:00 Mineral Oil/White Petrolatum (Eucerin) TO RLE BID TOP Last administered on 04/17/19at 09:06; Start 04/12/19 at 21:00 Morphine Sulfate (Morphine Sulfate Inj) 4 mg Q4HP PRN IV SEVERE PAIN (PS 8-10); Start 04/12/19 at 16:00; Stop 04/13/19 at 10:52; Status DC Naloxone HCl (Narcan) 0.2 mg STAT STAT IV Last administered on 04/15/19at 15:38; Start 04/15/19 at 15:30; Stop 04/15/19 at 15:31; Status DC Non-Formulary Medication ( See Comment Field Below ) CHECK TO SEE IF THE PATIENT... DAILY@1600 XX ; Start 04/12/19 at 16:00 Ondansetron HCl (Zofran) 4 mg Q6HP PRN PO NAUSEA; Start 04/12/19 at 12:15 Oxycodone HCl (OxyCONTIN) 10 mg BID PO Last administered on 04/15/19at 08:41; Start 04/12/19 at 21:00; Stop 04/15/19 at 18:30; Status DC Pantoprazole Sodium (Protonix) 40 mg DAILY PO Last administered on 04/17/19at 09:04; Start 04/13/19 at 09:00 Patiromer (Veltassa) 8.4 gm ASDIRECTED PRN PO SEE INSTRUCTIONS; Start 04/12/19 at 12:15; Status Cancel Ropinirole HCl (Requip) 1 mg QHS PO Last administered on 04/16/19at 20:54; Start 04/12/19 at 21:00 Senna (Senokot) 1 tab QHS PO Last administered on 04/12/19at 21:39; Start 04/12/19 at 21:00 Simvastatin (Zocor) 20 mg QHS PO Last administered on 04/16/19at 20:55; Start 04/12/19 at 21:00 Trazodone HCl (Desyrel) 50 mg QPM PRN PO INSOMNIA; Start 04/12/19 at 16:00 Vancomycin HCl 750 mg/IV Miscellaneous Supplies 15 ml @ 15 mls/hr ASDIRECTED IV ; Start 04/12/19 at 12:15; Stop 04/12/19 at 13:03; Status DC Vancomycin HCl 750 mg/IV Miscellaneous Supplies 1 each/ Dextrose 275 ml @ 275 mls/hr HD IV ; Start 04/12/19 at 13:15 A-FIB/CHADSVASC A-FIB History Current/History of A-Fib/PAF?: No WALTER BARRERA MD April 17, 2019 11:48
--- NOTE | 2019-04-17 12:00 | IPNPDOC ---
Text Note Date of Service The patient was seen on 04/17/19. NOTE Nephrology Service: Subjective: Patient seen and examined at bedside now in the Acute Rehab Unit. Was lying in bed comfortably. Mentating appropriately. 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 Estrella. Vascular Surgery steam pan sponger reports that L BKA stump site is having moderate amount of drainage. Dr. Cotton is planning on adding zosyn to patient's vancomycin. Pain is well controlled. Is afebrile and hemodynamically stable today. Blood pressures have been stable. She has no acute complaints. Feels better after her paracentesis yesterday with 9.1 liters removed. Will go for dialysis today. Objective: Vitals: T: not recorded for today BP: 133/62 RR: 16 (most recently recorded) P: 73 O2 Saturation: not recorded yet but is on 1L via NC Intake: 790 ml BMs: 1 yesterday General: AAO x 3. Adult female lying comfortably in bed in NAD. Speaks very softly. Pleasant and cooperative. Answering questions appropriately. Mentating well. HEENT: Head: normocephalic, atraumatic. Neck: Supple. Respiratory: Clear to auscultation bilaterally with no wheezes, rales, or rhonchi. Cardiovascular: Normal S1S2, regular rate and rhythm, with no murmurs, rubs or gallops. Abdomen: Soft, nontender, distended, ascites present but decreased from prior. Extremities: Dressing on L leg status-post L BKA. L leg dressing appears clean, dry, intact. (+)1 to 2+ pitting edema of b/l LE. Vascular: LUE fistula is present. Musculoskeletal: Moves all 4 extremities. Neurological: Mentating appropriately. No focal neurologic deficits on ins pection. Laboratory data: CBC: WBC 11.1, Hgb 10.4, Platelets 191. BMP: Na 136, K 4.2, BUN 65, Cr 6.54, CO2 22, glucose 143, Ca 7.6 Current Inpatient Medications: Vancomycin 750 mg IV HD Venofer (Iron) 100 mg IV HD Ropinirole 1 mg PO QHS Aranesp (Darbepoetin Yrodan) 100 mcg HD IV Metoprolol succinate 25 mg PO BID Gabapentin 300 mg PO BID Medication Changes: Plavix 75 mg PO daily restarted No longer seems to be on veltassa for hyperkalemia Assessment/Plan: 1. End-stage renal disease on hemodialysis on Tuesday, Tuesday, Tuesday schedule, presently volume overloaded. Increase ultrafiltration on HD as tolerated by hemodynamics. 2. Hypertension: BPs stable today. Will discontinue metoprolol if hypotension of hemodialysis persists. 3. Recurrent ascites status post paracentesis x4 on this admission: Paracentesis only performed 1-2 times per month in outpatient setting and needs to have albumin transfusion with each paracentesis. 4. Diastolic congestive heart failure with exacerbation and significant peripheral edema / recurrent ascites. Dialysis prescription has been modified. Hypotension of HD complicates our ability to remove fluid. Will likely discontinue metoprolol and start albumin with dialysis. 5. Anemia secondary to end-stage renal disease, iron deficiency and chronic inflammation: Hemoglobin is 10.4 (L). Continue Aranesp and Venofer 100 mg HD IV. Continue to monitor CBC. 6. 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 Estrella: Is doing well. Mentating appropriately. Doing PT/rehab in ARU. Continues on renally dosed antibiotics managed as per the primary team. She is only left on vancomycin. Was communicated to me by Vascular Surgery that Dr. Cotton will be restarting patient on zosyn along with radu nuing the vancomycin. My preceptor for this patient encounter was Dr. Temitope Grullon, and was physically present in the building during the encounter and was fully available. As needed, all aspects of the patient interview, examination, medical decision making process, and medical care plan development were reviewed and approved by the preceptor. Preceptor is aware and concurs with the plan as stated in the body of this note and will attest to such by his/her cosignature. A-FIB/CHADSVASC A-FIB History Current/History of A-Fib/PAF?: No Current Oral Anticoagulant The: No VS,Fishbone, I+O VS, Fishbone, I+O Laboratory Tests 04/17/19 06:18 Red Blood Count 3.59 L, Mean Corpuscular Volume 99.2 H, Mean Corpuscular Hemoglobin 29.0, Mean Corpuscular Hemoglobin Concent 29.2 L, Red Cell Distribution Width 18.7 H, Neutrophils (%) (Auto) 66.8 H, Lymphocytes (%) (Auto) 13.6 L, Monocytes (%) (Auto) 11.6 H, Eosinophils (%) (Auto) 2.5, Basophils (%) (Auto) 0.8, Neutrophils # (Auto) 7.4, Lymphocytes # (Auto) 1.5, Monocytes # (Auto) 1.3 H, Eosinophils # (Auto) 0.3, Basophils # (Auto) 0.1, Calcium Level 7.6 L Vital Signs Date Time Temp Pulse Resp B/P (MAP) Pulse Ox O2 Delivery O2 Flow Rate FiO2 04/17/19 09:04 73 133/62 04/17/19 09:00 1.0 04/16/19 20:00 97.1 16 98 I&O- Last 24 Hours up to 6 AM 04/17/19 05:59 Intake Total 1000 ml Balance 1000 ml JENISE LUCERO April 17, 2019 11:39 TEMITOPE GRULLON DO April 19, 2019 10:55
[2019-04-17] MEDS ORDERED: PIPERACILLIN/TAZOBACTAM SOD 2.25 GM in D5W MINI-BAG PLUS 50 ML IV SCH (14:00)
[2019-04-17] MEDS: **VANCO AFTER HD** MISC XX SCH (16:00)
[2019-04-17 16:40] VITALS: BP_SYST 103; BP_SYST 166; BP_DIAS 55; BP_DIAS 74
[2019-04-17 20:00] VITALS: BP 111/54
[2019-04-17] MEDS: SENNA 8.6 MG TAB (SENOKOT) PO SCH (21:00)
[2019-04-17] MEDS: PIPERACILLIN/TAZOBACTAM SOD 2.25 GM in D5W MINI-BAG PLUS 50 ML IV SCH (21:45)
[2019-04-17] MEDS: SIMVASTATIN 20 MG TAB PO SCH (21:46)
[2019-04-17] MEDS: rOPINIRole 1MG TAB PO SCH (21:46)
[2019-04-18 06:00] VITALS: BP 106/58
[2019-04-18] MEDS: LEVOTHYROXINE 125MCG TABLET (0.125MG) PO SCH (06:22)
[2019-04-18 07:07] LABS: BASO # 0.1 10^3/uL (0.0-0.2); BASO % 0.5 % (0.0-1.0); EOS # 0.4 10^3/uL (0.0-0.50); EOS % 2.2 % (0.0-3.0); HEMATOCRIT 36.1 % (36.0-47.0); HEMOGLOBIN 10.4 g/dl (12.0-15.5); LYMPH # 1.4 10^3/uL (1.5-4.5); LYMPH % 8.6 % (24.0-44.0); MEAN CORPUSCULAR HEMOGLOBIN 28.7 pg (27.0-33.0); MEAN CORPUSCULAR HGB CONC 28.8 g/dl (32.0-36.5); MEAN CORPUSCULAR VOLUME 99.4 fl (80.0-96.0); MONO # 1.8 10^3/uL (0.0-0.8); MONO % 10.9 % (0.0-5.0); NEUTROPHILS # 11.8 10^3/uL (1.8-7.7); NEUTROPHILS % 72.9 % (36.0-66.0); RED BLOOD COUNT 3.63 10^6/uL (4.00-5.40); WHITE BLOOD COUNT 16.2 10^3/uL (4.0-10.0)
[2019-04-18 07:26] LABS: CALCIUM LEVEL 7.6 MG/DL (8.8-10.2); CREATININE FOR GFR 4.53 MG/DL (0.55-1.30); GLOMERULAR FILTRATION RATE 10.2 (>39); MAGNESIUM LEVEL 1.8 MG/DL (1.8-2.4)
[2019-04-18] MEDS: CLOPIDOGREL 75 MG TAB PO SCH (09:00)
[2019-04-18] MEDS: DOCUSATE SODIUM 100 MG CAP PO SCH ×2 (09:00→22:24)
[2019-04-18] MEDS: HumaLOG INSULIN (NovoLOG) PER UNIT SC SCH ×4 (09:05→21:00)
[2019-04-18] MEDS: PANTOPRAZOLE 40MG TAB (PROTONIX) PO SCH (09:06)
[2019-04-18] MEDS: CALCIUM CARBONATE 500 MG CHEW U/D PO SCH ×3 (09:06→17:19)
[2019-04-18] MEDS: DULoxetine 30 MG CAP (CYMBALTA) PO SCH (09:06)
[2019-04-18] MEDS: GABAPENTIN 300 MG CAP PO SCH ×2 (09:06→22:24)
[2019-04-18] MEDS: LEVEMIR (INSULIN DETEMIR) 1 UNITS/0.01ML SC SCH ×2 (09:11→22:27)
[2019-04-18] MEDS: EUCERIN 120GM CREAM TOP SCH ×2 (09:12→22:29)
[2019-04-18] MEDS: HEPARIN SOD (PORCINE) 5000 UNITS/ML VIAL SC SCH ×2 (09:12→22:26)
[2019-04-18] MEDS: ACETAMINOPHEN TAB 650MG DOSE (2X325MG) PO PRN ×2 (09:24→22:28)
--- NOTE | 2019-04-18 10:06 | IPNPDOC ---
PM&R Progress Note DATE OF SERVICE: April 18, 2019 Food Science Technician Progress Note Subjective: PAtient seen in room reporting she would like to see Dr. Estrella to discuss the upcoming procedure. Denies fever or chills, pain well controlled off opioids. REVIEW OF SYSTEMS: The following is a completed review of systems and has been reviewed. Review of systems otherwise unremarkable. PAIN: Patient self reports no pain at rest EYES: Negative for recent vision loss EARS, NOSE, & THROAT: denies dysphagia, rhinorrhea, hearing loss CARDIOVASCULAR: denies chest pain, +exertional dyspnea PULMONARY: Negative. Denies shortness of breath except on exertion GASTROINTESTINAL: + ascites (improving) GENITOURINARY: Negative for dysuria MUSCULOSKELETAL: +arthritis, right foot toe amputations, left BKA NEUROLOGICAL: peripheral neuropathy HEMATOLOGICAL: +anemic SKIN: right D1 ischemic ulcer, left BKA incision with blisters, eschar patch just beneath incision line PSYCHIATRIC:+anxious All other review of systems found to be negative. PHYSICAL EXAMINATION: VITAL SIGNS: Please see below. GENERAL: Pleasant and cooperative. No acute distress. smiling HEENT: PERRL. Extraocular movements intact. Clear conjunctiva CARDIOVASCULAR: Regular rate and rhythm. No murmurs, rubs, or gallops LUNGS: Clear to auscultation bilaterally. No wheezes. No rhonchi ABDOMEN: Soft, very distended, however minimal pain with palpation, no guarding, Positive bowel sounds. NEUROLOGICAL: Alert and oriented times three. Cranial nerves II through XII grossly intact. Sensation grossly intact in UE, diminished in bilat LE EXTREMITIES: 5-\\5 strength bilateral upper extremities. 5-\\5 strength right lower extremity. 5-/5 strength in left hip flexion knee extension and knee flexion SKIN: left forearm AVF, right calf edematous with erythema (negative Homans) left BKA incision with blisters, eschar patch just beneath incision line with purulence ASSESSMENT:-year-old 68 with past medical history of ESRD on HD and PVD who presents status post left BKA PLAN: 1. Rehab: OT/PT, assess for DME needs, difficulty transferring with slide board, improving squat pivots 2. Vascular- s/p left BKA on 04/06/[address] Estrella, was on IV Zosyn and Vanco- wound with eschar and purulence, discussed case with vascular with plan for debridement tomorrow AM, CRP elevated to 15- c/u on Zosyn and Vanco, spoke with pharmacy and patient's Vanco levels today subtherapeutic because not given during dialysis- c/u at high dose per Dr. Grullon's recs and c/u management per pharmacy -will consult ID to follow along 3. Skin: left BKA with blisters and signs of poor circulation and eschar- c/u dressing changes, avoid use of hangar orthotic as this creates friction and moisture as does not fit securely to patient's limb- wound not healing well, plan for debridement tomorrow 4. CArdiac: pmh CAD s/p 4 stents, medicine consulted, c/u meds -pmh diastolic CHF- on dialysis with renal monitoring fluid balance 5. Resp: requiring supplemental oxygen due to poor ventilation in setting of ascites, encourage incentive spirometry and monitor for infection 6. Renal: ESRD on HD M//, however Tuesday's was pushed back to Tuesday due to paracentesis on Tuesday, diaslysis today- renal consulted, recs appreciated 7. GI: pmh cirrhosis with ascites, was getting paracentesis q2 weeks prior to h ospitalization, concern for recent bleeding on last procedure 04/05/19- s/p paracentesis 04/16/19, abdomen softer -protonix and TUMS for dyspepsia and ppx 8. DVT ppx: heparin 9. Pain: NO opioids, patient had altered mental status and low arousal s/p Narcan 04/15/19, c/u tylenol and gabapentin, AVOID adding any opioids as patient as fluctuating levels of arousal throughout the day and needs to be optimized for therapy 10. PScyh: pmh anxiety/depression, c/u home meds 11. Dispo: TBD Allergies Coded Allergies: pregabalin (Verified Adverse Reaction, Intermediate, "feeling weird", SI thoughts., 03/06/19) Vital Signs Vital Signs Date Time Temp Pulse Resp B/P (MAP) Pulse Ox O2 Delivery O2 Flow Rate FiO2 04/18/19 06:00 97.4 71 19 106/58 (74) 97 04/17/19 21:00 2.0 Laboratory Data CBC/BMP Laboratory Tests 04/18/19 06:37 Red Blood Count 3.63 L, Mean Corpuscular Volume 99.4 H, Mean Corpuscular Hemoglobin 28.7, Mean Corpuscular Hemoglobin Concent 28.8 L, Red Cell Distr ibution Width 19.3 H, Neutrophils (%) (Auto) 72.9 H, Lymphocytes (%) (Auto) 8.6 L, Monocytes (%) (Auto) 10.9 H, Eosinophils (%) (Auto) 2.2, Basophils (%) (Auto) 0.5, Neutrophils # (Auto) 11.8 H, Lymphocytes # (Auto) 1.4 L, Monocytes # (Auto) 1.8 H, Eosinophils # (Auto) 0.4, Basophils # (Auto) 0.1 04/18/19 06:38 Calcium Level 7.6 L Labs 24H Laboratory Tests 2 04/17/19 11:33: Bedside Glucose (Misc Panel) 125H 04/17/19 16:24: Bedside Glucose (Misc Panel) 194H 04/17/19 20:59: Bedside Glucose (Misc Panel) 228H 04/18/19 06:37: Immature Granulocyte % (Auto) 4.9H, White Blood Count 16.2H, Red Blood Count 3.63L, Hemoglobin 10.4L, Hematocrit 36.1, Mean Corpuscular Volume 99.4H, Mean Corpuscular Hemoglobin 28.7, Mean Corpuscular Hemoglobin Concent 28.8L, Red Cell Distribution Width 19.3H, Platelet Count , Neutrophils (%) (Auto) 72.9H, Lymphocytes (%) (Auto) 8.6L, Monocytes (%) (Auto) 10.9H, Eosinophils (%) (Auto) 2.2, Basophils (%) (Auto) 0.5, Neutrophils # (Auto) 11.8H, Lymphocytes # (Auto) 1.4L, Monocytes # (Auto) 1.8H, Eosinophils # (Auto) 0.4, Basophils # (Auto) 0.1, Nucleated Red Blood Cells % (auto) 0.3H 04/18/19 06:38: Anion Gap 10, Glomerular Filtration Rate 10.2L, Blood Urea Nitrogen 38H, Creatinine 4.53H, Sodium Level 138, Potassium Level 4.0, Chloride Level 104, Carbon Dioxide Level 24, Calcium Level 7.6L, Magnesium Level 1.8 Microbiology Microbiology 04/17/19 Gram Stain - Final, Resulted 04/17/19 Wound Culture, Resulted Pending Current Medications Current Medications Current Medications Acetaminophen (Tylenol Tab) 650 mg Q4HP PRN PO MILD PAIN (PS 1-4) Last administered on 04/18/19at 09:24; Start 04/12/19 at 12:15 Al Hydrox/Mg Hydrox/Simethicone (Mylanta) 30 ml Q4HP PRN PO DYSPEPSIA; Start 04/12/19 at 12:15 Calcium Carbonate (Tums) 1,000 mg WM PO Last administered on 04/18/19at 09:06; Start 04/12/19 at 12:30 Clopidogrel Bisulfate (PLAVix) 75 mg DAILY PO ; Start 04/13/19 at 09:00; Stop 04/13/19 at 09:00; Status DC Clopidogrel Bisulfate (PLAVix) 75 mg DAILY PO Last administered on 04/17/19at 09:04; Start 04/17/19 at 09:00 Darbepoetin Yordan (Aranesp (Dialysis Use)) 100 mcg HD IV ; Start 04/13/19 at 08 :30 Dextrose (Dextrose 50%) 25 ml ASDIRECTED PRN IV SEE LABEL COMMENTS; Start 04/12/19 at 12:15 Docusate Sodium (Colace) 100 mg BID PO Last administered on 04/13/19at 08:36; Start 04/12/19 at 21:00 Duloxetine HCl (Cymbalta) 30 mg DAILY PO Last administered on 04/18/19at 09:06; Start 04/13/19 at 09:00 Gabapentin (Neurontin) 300 mg BID PO Last administered on 04/18/19at 09:06; Start 04/12/19 at 21:00 Glucagon (Glucagon) 1 mg ASDIRECTED PRN SC SEE LABEL COMMENTS; Start 04/12/19 at 12:15 Glucose (Glucose) 16 GM ASDIRECTED PRN PO SEE LABEL COMMENTS; Start 04/12/19 at 12:15 Heparin Sodium (Porcine) (Heparin) 5,000 units Q12H SC Last administered on 04/18/19at 09:12; Start 04/12/19 at 21:00 Insulin Detemir (Levemir Insulin) 10 units DAILY SC Last administered on 04/18/19at 09:11; Start 04/13/19 at 09:00 Insulin Detemir (Levemir Insulin) 10 units QHS SC Last administered on 04/17/19at 21:47; Start 04/12/19 at 21:00 Insulin Human Lispro (HumaLOG INSULIN) SEE PROTOCOL TABLE AC SC Last admini stered on 04/18/19at 09:05; Start 04/12/19 at 17:30 Insulin Human Lispro (HumaLOG INSULIN) SEE PROTOCOL TABLE QHS SC ; Start 04/12/19 at 21:00 Iron (Venofer) 100 mg HD IV ; Start 04/13/19 at 16:15 Levothyroxine Sodium (Synthroid) 125 mcg DAILY@06 PO Last administered on 04/18/19at 06:22; Start 04/13/19 at 06:00 Metoprolol Succinate (TopROL XL) 25 mg BID PO Last administered on 04/17/19at 21:46; Start 04/12/19 at 21:00; Stop 04/18/19 at 09:05; Status DC Mineral Oil/White Petrolatum (Eucerin) TO RLE BID TOP Last administered on 04/18/19at 09:12; Start 04/12/19 at 21:00 Morphine Sulfate (Morphine Sulfate Inj) 4 mg Q4HP PRN IV SEVERE PAIN (PS 8-10); Start 04/12/19 at 16:00; Stop 04/13/19 at 10:52; Status DC Naloxone HCl (Narcan) 0.2 mg STAT STAT IV Last administered on 04/15/19at 15:38; Start 04/15/19 at 15:30; Stop 04/15/19 at 15:31; Status DC Non-Formulary Medication ( See Comment Field Below ) CHECK TO SEE IF THE PATIENT... DAILY@1600 XX ; Start 04/12/19 at 16:00 Ondansetron HCl (Zofran) 4 mg Q6HP PRN PO NAUSEA; Start 04/12/19 at 12:15 Oxycodone HCl (OxyCONTIN) 10 mg BID PO Last administered on 04/15/19at 08:41; Start 04/12/19 at 21:00; Stop 04/15/19 at 18:30; Status DC Pantoprazole Sodium (Protonix) 40 mg DAILY PO Last administered on 04/18/19at 09:06; Start 04/13/19 at 09:00 Patiromer (Veltassa) 8.4 gm ASDIRECTED PRN PO SEE INSTRUCTIONS; Start 04/12/19 at 12:15; Status Cancel Piperacillin Sod/ Tazobactam Sod 2.25 gm/Dextrose 50 ml @ 100 mls/hr Q12H IV ; Start 04/17/19 at 14:00; Stop 04/17/19 at 21:05; Status DC Piperacillin Sod/ Tazobactam Sod 2.25 gm/Dextrose 50 ml @ 100 mls/hr Q12H IV Last administered on 04/17/19at 21:45; Start 04/17/19 at 21:00 Ropinirole HCl (Requip) 1 mg QHS PO Last administered on 04/17/19at 21:46; Start 04/12/19 at 21:00 Senna (Senokot) 1 tab QHS PO Last administered on 04/12/19at 21:39; Start 04/12/19 at 21:00 Simvastatin (Zocor) 20 mg QHS PO Last administered on 04/17/19at 21:46; Start 04/12/19 at 21:00 Trazodone HCl (Desyrel) 50 mg QPM PRN PO INSOMNIA; Start 04/12/19 at 16:00 Vancomycin HCl 750 mg/IV Miscellaneous Supplies 15 ml @ 15 mls/hr ASDIRECTED IV ; Start 04/12/19 at 12:15; Stop 04/12/19 at 13:03; Status DC Vancomycin HCl 750 mg/IV Miscellaneous Supplies 1 each/ Dextrose 275 ml @ 275 mls/hr HD IV ; Start 04/12/19 at 13:15 A-FIB/CHADSVASC A-FIB History Current/History of A-Fib/PAF?: No WALTER BARRERA MD April 18, 2019 10:06
[2019-04-18] MEDS: PIPERACILLIN/TAZOBACTAM SOD 2.25 GM in D5W MINI-BAG PLUS 50 ML IV SCH ×2 (10:40→22:17)
[2019-04-18 10:49] LABS: VANCOMYCIN RANDOM 7.9 UG/ML
[2019-04-18] MEDS ORDERED: LIDOCAINE 1% SDV 5 ML VIAL SQ ONE (11:15)
[2019-04-18] MEDS ORDERED: HEPARIN 1,000 UNITS/ML 10ML VIAL (FOR RADIOLOGY& DIALYSIS ONLY) IV ONE (11:15)
--- NOTE | 2019-04-18 11:52 | PHACANCOPD ---
PHARMACY VANCOMYCIN DOSING Pt Demographics Demographics Patient Age:68 , Weight:85.800 , Gender: female Adjusted Body Weight Date: 04/18/19, Adjusted Body Weight: Kg Vancomycin Vancomycin indication: LEFT FOOT ABSCESS Vancomycin Target Ranges: 10-20 mcg/ml Vancomycin Load Y/N: No Load Dose Date Time Vancomycin Load Dose: Date: Time: Vancomycin Dose Date: 04/18/19. Current Vancomycin Dose: [1g IV HD] Intermittent Dosing?: Yes Labs Labs Item Value Date Time White Blood Count 16.2 10^3/uL H 04/18/19 0637 White Blood Count 11.1 10^3/uL H 04/17/19 0618 White Blood Count 9.6 10^3/uL 04/16/19 0603 Band Neutrophils 1 % 04/14/19 0918 Band Neutrophils 3 % 04/15/19 0616 Creatinine 4.53 MG/DL H 04/18/19 0638 Creatinine 6.54 MG/DL H 04/17/19 0618 Creatinine 5.82 MG/DL H 04/16/19 0603 Blood Urea Nitrogen 38 MG/DL H 04/18/19 0638 Blood Urea Nitrogen 65 MG/DL H 04/17/19 0618 Blood Urea Nitrogen 54 MG/DL H 04/16/19 0603 C-Reactive Protein, Quantitative 15.00 MG/DL H 04/17/19 0618 Micro Microbiology 04/17/19 Gram Stain - Final, Resulted 04/17/19 Wound Culture, Resulted Pending Creatinine Clearance Date:04/18/19. Est Creatinine Clearance: [~11.7ml/min]. Pending Labs Vancomycin random level 04/19/19 @0500, with AM labs Assessment and Plan Maintaining Current Dose?: No Reason for dose change: Other Pharmacist Note Pharmacist Note Date: 04/18/19. 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 Vancomycin random level today resulted at 7.9mcg/ml (last level was therapeutic at 20.9mcg/ml). The patient's last hemodialysis sessions were 04/13/19 at 04/17/19. Upon further review it was discovered that the vancomycin was not given after the HD sessions on 04/13 or 04/17 - resulting in today's subtherapeutic random level. The patient is being dialyzed today and her vancomycin regimen has been increased by Dr. Grullon from 750mg IV HD to 1g IV HD - to start after today's HD session. The patient's normal dialysis schedule is Tuesday, Tuesday, Tuesday - which is being resumed today. A follow-up random vancomycin level has been scheduled to be drawn tomorrow, 04/19/19, with the morning lab draw. We will continue to monitor and order additional supplemental dosing tomorrow pending the result of the random level if needed. NAHEED [facility]ARD[facility] April 18, 2019 11:52
--- NOTE | 2019-04-18 12:08 | IPN ---
DATE: April 18, 2019 SUBJECTIVE: Dalila was examined this morning at bedside in the rehabilitation unit. She is transferring in the room via wheelchair at the time of my visit. She tolerated dialysis yesterday with only 1 liter of fluid being removed because of hypotension of hemodialysis. I discussed with her albumin transfusion with dialysis and she is agreeable for the same. She is scheduled for dialysis again this afternoon. VITAL SIGNS: Temperature 97.4, pulse 71, respiratory rate 19, blood pressure 106/58, saturating 97% on 2 liters nasal cannula. Intake yesterday was 1760, dialysis yesterday removed 1 liter. Weight on the bed scale today is not recorded. General: The patient is seen sitting in the wheelchair, elderly female in no acute distress. Extraocular muscles are intact. Tongue is moist. Neck is supple. Jugular veins are elevated. Cardiac: S1, S2. Regular rate and rhythm. Lungs show fairly clear air entry bilaterally, somewhat diminished at the base. Abdomen is soft and distended. There is ascitic fluid present. The lower extremities show 2+ thing edema that extends up to the hip, thigh and not abdominal areas. There is a left [id number] amputation with dressings and the right lower extremity is also in dressings that are wrapped up to the knee. Neurologic: She is oriented times three. No focal deficits. Dialysis access: There is a fistula in the a left arm that is patent with thrill and bruit. LABORATORY DATA: White count 16.2, hemoglobin 10.4, platelets pending. Sodium 138, potassium 4.0, bicarbonate 24, CRP 15. Random vancomycin was low at 7.9. INPATIENT MEDICATIONS: The patient continues on vancomycin. The random level was very subtherapeutic. Continues on renally dosed Zosyn. The remainder of medications are unchanged from prior. PROBLEMS: 1. End stage renal disease on hemodialysis on Tuesday, Tuesday, Tuesday schedule. She had a paracentesis done on Tuesday and she was not dialyzed that day. We dialyzed her on Tuesday and she is for dialysis again today. Unfortunately, she has not tolerated vigorous fluid removal with hemodialysis for the past couple of weeks, she has been struggling with hypotension of hemodialysis. I have discontinued her metoprolol and I have ordered her to receive 37.5 grams of IV albumin total with her hemodialysis treatment this afternoon, which I feel will help us with ultrafiltration and fluid removal. She remains grossly volume overloaded and it is complicating her care. We will plan for extra dialysis sessions with albumin for further fluid removal. Her electrolytes are otherwise acceptable and her fistula is in good use. 2. Decompensated diastolic congestive heart failure, significantly volume overloaded with recurrent ascites. Fluid removal with hemodialysis has been complicated by hypotension for the past couple of weeks. She is now going to receive aggressive albumin with hemodialysis and we will plan for extra dialysis treatments if she is agreeable. 3. Hypotension of hemodialysis. Metoprolol is being discontinued and albumin is being ordered with her hemodialysis treatments. 4. Severe protein calorie malnutrition. Her serum albumin is extremely low at 1.4. Encourage dietary protein. Her severe hypoalbuminemia is contributing to significant peripheral edema as well. She is now going to receive aggressive albumin with dialysis. 5. Anemia related to chronic renal failure and iron deficiency. It is improving. She is continued on Aranesp and today is the last dose of Venofer. 6. Recurrent ascites and cirrhosis. Paracentesis will be ordered as indicated. 7. Status post left below the knee amputation. Her random vancomycin level is very subtherapeutic, and I am increasing the vancomycin dose to 1 gram post dialysis. Additionally, her white count is rising and I am told that her left stump is not healing well. Vascular surgery is going to reevaluate her for further amputation and the primary team has requested an infectious disease consultation.
--- NOTE | 2019-04-18 12:08 | IPNPDOC ---
Date Seen The patient was seen on 04/18/19. Progress Note VASCULAR SURGERY Dr Estrella HPI: 68-year-old female admitted to [facility] S/P guilotine amputation Left foot as per Dr Estrella 04/02/19 with completion of Left BKA 04/06/19. The pt continues to have drainage from left BKA. Denies any fevers, chills, weakness, fatigue, Headache, Chest Pain, Shortness of breath, cough, palpitations, abdominal pain, N/V/D or changes in bowel or bladder habits. Medical History HFpEF, grade II diastolic dysfxn, moderate LVH, mild pulm art HTN 09/14 echo Cirrhosis with hx metabolic encephalopathy, undergoes paracentesis every 2 weeks, S/P paracentesis 04/16/19. 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 Left arm AV fistula. Appendectomy. Hysterectomy. Bilateral cataracts. PE: GEN: 68 yo F, appears stated age. No acute distress. Alert. HEENT: Normocephalic, atraumatic. No facial asymmetry. Moist mucous membranes. CHEST: Regular rate and rhythm, +S1, +S2 LUNGS: Clear to auscultation bilaterally. No wheezes, rales, or rhonchi. ABD: Round, distended, nontender. +Bowel sounds throughout. EXT: S/P BKA LLE, michelle intact, yellowish drainage noted. Still with dark discolored area/eschar anteriorly. NEURO: Alert and oriented x 3. Cranial nerves III-XII are intact. No focal de ficits appreciated. A&P: 68-year-old female admitted to [facility] S/P guilotine amputation Left foot as per Dr Estrella 04/02/19 with completion of Left BKA 04/06/19 S/P guilotine amputation Left foot as per Dr Estrella 04/02/19, completion of Left BKA 04/06/19. Continue dry dressing daily. Patient is afebrile. WBC 16 Patient remains on IV Vanco. IV Zosyn added back by Dr Cotton. Wound culture pending from 04/17/19. CRP 04/17/19 15.0. Consider ID CLT. Relayed to Dr Estrella appearance of incision and concerns for poor healing. plan is for wound debridement 04/19/19. DVT ppx: heparin sc A-FIB/CHADSVASC A-FIB History Current/History of A-Fib/PAF?: No VS, I&O, 24H, Fishbone Vital Signs/I&O Vital Signs Date Time Temp Pulse Resp B/P (MAP) Pulse Ox O2 Delivery O2 Flow Rate FiO2 04/18/19 09:00 2.0 04/18/19 06:00 97.4 71 19 106/58 (74) 97 I&O- Last 24 Hours up to 6 AM 04/18/19 06:00 Intake Total 1670 ml Output Total 1000 ml Balance 670 ml Laboratory Data 24H LABS Laboratory Tests 2 04/17/19 16:24: Bedside Glucose (Misc Panel) 194H 04/17/19 20:59: Bedside Glucose (Misc Panel) 228H 04/18/19 06:37: Immature Granulocyte % (Auto) 4.9H, White Blood Count 16.2H, Red Blood Count 3.63L, Hemoglobin 10.4L, Hematocrit 36.1, Mean Corpuscular Volume 99.4H, Mean Corpuscular Hemoglobin 28.7, Mean Corpuscular Hemoglobin Concent 28.8L, Red Cell Distribution Width 19.3H, Platelet Count , Neutrophils (%) (Auto) 72.9H, Lymphocytes (%) (Auto) 8.6L, Monocytes (%) (Auto) 10.9H, Eosinophils (%) (Auto) 2.2, Basophils (%) (Auto) 0.5, Neutrophils # (Auto) 11.8H, Lymphocytes # (Auto) 1.4L, Monocytes # (Auto) 1.8H, Eosinophils # (Auto) 0.4, Basophils # (Auto) 0.1, Nucleated Red Blood Cells % (auto) 0.3H 04/18/19 06:38: Anion Gap 10, Glomerular Filtration Rate 10.2L, Blood Urea Nitrogen 38H, Creatinine 4.53H, Sodium Level 138, Potassium Level 4.0, Chloride Level 104, Carbon Dioxide Level 24, Calcium Level 7.6L, Magnesium Level 1.8, Random Vancomycin Level 7.9 04/18/19 11:43: Bedside Glucose (Misc Panel) 144H CBC/BMP Laboratory Tests 04/18/19 06:37 Red Blood Count 3.63 L, Mean Corpuscular Volume 99.4 H, Mean Corpuscular Hemoglobin 28.7, Mean Corpuscular Hemoglobin Concent 28.8 L, Red Cell Distribution Width 19.3 H, Neutrophils (%) (Auto) 72.9 H, Lymphocytes (%) (Auto) 8.6 L, Monocytes (%) (Auto) 10.9 H, Eosinophils (%) (Auto) 2.2, Basophils (%) (Auto) 0.5, Neutrophils # (Auto) 11.8 H, Lymphocytes # (Auto) 1.4 L, Monocytes # (Auto) 1.8 H, Eosinophils # (Auto) 0.4, Basophils # (Auto) 0.1 04/18/19 06:38 Calcium Level 7.6 L Microbiology Microbiology 04/17/19 Gram Stain - Final, Resulted 04/17/19 Wound Culture, Resulted Pending Trini Vieira April 18, 2019 12:07
[2019-04-18] MEDS ORDERED: VANCOMYCIN HCL 1,000 MG, VIAL MATE ADAPTER 1 EACH in D5W 250 ML IV SCH (16:00)
[2019-04-18] MEDS: **VANCO AFTER HD** MISC XX SCH (16:00)
[2019-04-18] MEDS: VANCOMYCIN HCL 1,000 MG, VIAL MATE ADAPTER 1 EACH in D5W 250 ML IV SCH (16:24)
[2019-04-18 16:30] VITALS: BP 141/66
[2019-04-18 20:00] VITALS: BP 102/58
[2019-04-18] MEDS: SENNA 8.6 MG TAB (SENOKOT) PO SCH (21:00)
[2019-04-18] MEDS: SIMVASTATIN 20 MG TAB PO SCH (22:24)
[2019-04-18] MEDS: rOPINIRole 1MG TAB PO SCH (22:27)
[2019-04-19 04:50] VITALS: BP 148/83
[2019-04-19 05:42] LABS: HEMOGLOBIN 10.6 g/dl (12.0-15.5); MEAN CORPUSCULAR HEMOGLOBIN 29.6 pg (27.0-33.0); MEAN CORPUSCULAR HGB CONC 30.3 g/dl (32.0-36.5); MEAN CORPUSCULAR VOLUME 97.8 fl (80.0-96.0); PLATELET COUNT, AUTOMATED 184 10^3/uL (150-450); RED BLOOD COUNT 3.58 10^6/uL (4.00-5.40); WHITE BLOOD COUNT 12.6 10^3/uL (4.0-10.0)
[2019-04-19 06:00] VITALS: BP 141/65
[2019-04-19 06:03] LABS: CALCIUM LEVEL 7.9 MG/DL (8.8-10.2); CREATININE FOR GFR 3.49 MG/DL (0.55-1.30); GLOMERULAR FILTRATION RATE 13.8 (>39); POTASSIUM SERUM 3.5 MEQ/L (3.5-5.1)
[2019-04-19 06:09] LABS: CPK CREATINE PHOSPHOKINASE 13 U/L (26-192); MB/CK RELATIVE INDEX 16.15 (< OR =4); TROPONIN I < 0.02 NG/ML (< 0.10)
--- NOTE | 2019-04-19 06:09 | ECGEPIP ---
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
[2019-04-19 06:19] LABS: ATYPICAL LYMPH 2 % (0-5); EOSINOPHILS 2 % (0-5); LYMPHOCYTES 12 % (16-52); METAMYELOCYTES 3 % (0-0); MONOCYTES 10 % (0-8); MYELOCYTES 2 % (0-0); NEUTROPHILS 67 % (35-75); PLATELET ESTIMATE NORMAL (NORMAL); POLYCHROMASIA 1+
[2019-04-19 06:20] LABS: ANISOCYTOSIS 1+
[2019-04-19] MEDS: LEVOTHYROXINE 125MCG TABLET (0.125MG) PO SCH (06:29)
[2019-04-19] MEDS: HumaLOG INSULIN (NovoLOG) PER UNIT SC SCH ×4 (09:20→21:00)
[2019-04-19] MEDS: PIPERACILLIN/TAZOBACTAM SOD 2.25 GM in D5W MINI-BAG PLUS 50 ML IV SCH ×2 (09:20→21:35)
[2019-04-19] MEDS: LEVEMIR (INSULIN DETEMIR) 1 UNITS/0.01ML SC SCH ×2 (09:21→21:34)
--- NOTE | 2019-04-19 09:21 | REP ---
Chest two views HISTORY: Chest pain Comparison: 04/15/2019 A minimal increase in interstitial markings is present in the lungs consistent with chronic interstitial change. The cardiac silhouette is enlarged. The pulmonary vasculature is normal in appearance. The bony structure is intact. IMPRESSION: 1. Chronic interstitial change. 2. Cardiomegaly. Electronically Signed by Carmelo Dean MD 04/19/2019 09:13 A
[2019-04-19] MEDS: HEPARIN SOD (PORCINE) 5000 UNITS/ML VIAL SC SCH ×2 (09:22→19:41)
[2019-04-19] MEDS: DULoxetine 30 MG CAP (CYMBALTA) PO SCH (09:22)
[2019-04-19] MEDS: PANTOPRAZOLE 40MG TAB (PROTONIX) PO SCH (09:22)
[2019-04-19] MEDS: GABAPENTIN 300 MG CAP PO SCH ×2 (09:22→21:35)
[2019-04-19] MEDS: CLOPIDOGREL 75 MG TAB PO SCH (09:23)
[2019-04-19] MEDS: DOCUSATE SODIUM 100 MG CAP PO SCH (09:23)
[2019-04-19] MEDS: CALCIUM CARBONATE 500 MG CHEW U/D PO SCH ×3 (09:23→17:19)
[2019-04-19] MEDS: EUCERIN 120GM CREAM TOP SCH ×2 (09:26→21:36)
--- NOTE | 2019-04-19 09:43 | IPNPDOC ---
Date Seen The patient was seen on 04/19/19. Progress Note VASCULAR SURGERY Dr Estrella HPI: 68-year-old female admitted to 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 The pt continues to have drainage from left BKA. Denies any fevers, chills, weakness, fatigue, Headache, Chest Pain, Shortness of breath, cough, palpitations, abdominal pain, N/V/D or changes in bowel or bladder habits. Medical History HFpEF, grade II diastolic dysfxn, moderate LVH, mild pulm art HTN 09/14 echo Cirrhosis with hx metabolic encephalopathy, undergoes paracentesis every 2 weeks, S/P paracentesis 04/16/19. 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 Left arm AV fistula. Appendectomy. Hysterectomy. Bilateral cataracts. PE: GEN: 68 yo F, appears stated age. No acute distress. Alert. HEENT: Normocephalic, atraumatic. No facial asymmetry. Moist mucous membranes. CHEST: Regular rate and rhythm, +S1, +S2 LUNGS: Clear to auscultation bilaterally. No wheezes, rales, or rhonchi. ABD: Round, distended, nontender. +Bowel sounds throughout. EXT: S/P BKA LLE dressing intact currently, yellowish drainage noted. NEURO: Alert and oriented x 3. Cranial nerves III-XII are intact. No focal deficits appreciated. A&P: 68-year-old female admitted to [facility] S/P guilotine amputation Left foot as per Dr Estrella 04/02/19 with completion of Left BKA 04/06/19 S/P guilotine amputation Left foot as per Dr Estrella 04/02/19, completion of Left BKA 04/06/19. Continue dry dressing daily. Patient is afebrile. WBC 12.6 Patient remains on IV Vanco. IV Zosyn added back by Dr Cotton 04/17/19. Wound culture pending from 04/17/19. CRP 04/17/19 15.0. Possibly consider ID CLT. Relayed to Dr Estrella appearance of incision and concerns for poor healing. Plan is for wound debridement 04/20/19. DVT ppx: heparin sc A-FIB/CHADSVASC A-FIB History Current/History of A-Fib/PAF?: No VS, I&O, 24H, Fishbone Vital Signs/I&O Vital Signs Date Time Temp Pulse Resp B/P (MAP) Pulse Ox O2 Delivery O2 Flow Rate FiO2 04/19/19 06:30 94 04/19/19 06:00 97.3 69 20 141/65 (90) 2.0 I&O- Last 24 Hours up to 6 AM 04/19/19 06:00 Intake Total 1700 ml Output Total 2100 ml Balance -400 ml Laboratory Data 24H LABS Laboratory Tests 2 04/18/19 11:43: Bedside Glucose (Misc Panel) 144H 04/18/19 16:46: Bedside Glucose (Misc Panel) 146H 04/18/19 19:58: Bedside Glucose (Misc Panel) 246H 04/19/19 01:52: Bedside Glucose (Misc Panel) 241H 04/19/19 05:21: Immature Granulocyte % (Auto) , Nucleated Red Blood Cells % (auto) 0.2H, Neutrophils 67, Band Neutrophils 2, Lymphocytes (Manual) 12L, Monocytes (Manual) 10H, Eosinophils (Manual) 2, Metamyelocytes 3H, Myelocytes 2H, Atypical Lym phocytes 2, Platelet Estimate NORMAL, Polychromasia 1+, Basophilic Stippling 1+, Anisocytosis 1+, Anion Gap 7L, Glomerular Filtration Rate 13.8L, Blood Urea Nitrogen 28H, Creatinine 3.49H, Sodium Level 138, Potassium Level 3.5, Chloride Level 102, Carbon Dioxide Level 29, Calcium Level 7.9L, Total Creatine Kinase 13L, Creatine Kinase MB 2.0, Creatine Kinase MB Relative Index 16.15H, Troponin I < 0.02, Random Vancomycin Level 19.8 CBC/BMP Laboratory Tests 04/19/19 05:21 Red Blood Count 3.58 L, Mean Corpuscular Volume 97.8 H, Mean Corpuscular Hemoglobin 29.6, Mean Corpuscular Hemoglobin Concent 30.3 L, Red Cell Distribution Width 19.1 H, Calcium Level 7.9 L Microbiology Microbiology 04/17/19 Gram Stain - Final, Resulted 04/17/19 Wound Culture, Resulted Pending Trini Vieira April 19, 2019 09:43
--- NOTE | 2019-04-19 11:33 | IPNPDOC ---
Subjective Date Seen The patient was seen on 04/19/19. Subjective Chief Complaint/HPI offers no new complaints at the present time General: Denies: ROS Unobtainable, Chills, Night Sweats, Fatigue, Malaise, Normal Appetite, Other Symptoms Constitutional: Denies: Chills, Fever, Malaise, Night Sweats, Weakness, Fatigue, Weight Loss, Lethargy, Other Eyes: Denies: Pain, Vision change, Conjunctivae inflammation, Eyelid inflammation, Redness, Other ENT: Denies: Head Aches, Ear Pain, Dysphagia, Sinus Congestion, Post Nasal Drip, Sore Throat, Epistaxis, Other Symptoms Skin: Denies: Rash, Lesions, Jaundice, Bruising, Itching, Dry, Breakdown, Nail Changes, Other Pulmonary: Denies: Dyspnea, Cough, Pleuritic Chest Pain, Other Symptoms Cardiovascular: Denies: Chest Pain, Palpitations, Orthopnea, Paroxysmal Noc. Dyspnea, Edema, Lt Headedness, Other Symptoms Gastrointestinal: Denies: Nausea, Vomiting, Abdominal Pain, Diarrhea, Constipation, Melena, Hematochezia, Other Symptoms Genitourinary: Denies: Dysuria, Frequency, Incontinence, Hematuria, Retention, Other Symptoms Hematologic: Denies: Bruising, Bleeding Excessively, Petecchia, Purpura, Enlarged Lymph Nodes, Other Hematologic Endocrine: Denies: Polydipsia, Polyphagia, Polyuria, Heat Intolerance, Cold Intolerance, Other Endocrine Sx Musculoskeletal: Denies: Neck Pain, Back Pain, Shoulder Pain, Arm Pain, Hand Pain, Leg Pain, Foot Pain, Joint Pain, Muscle Pain, Spasms, Other Symptoms Neurological: Denies: Weakness, Numbness, Incoordination, Change in speech, Confusion, Seizures, Other Symptoms Psych: Denies: Mood Normal, Anxiety, Depression, Memory Issues, Thoughts of Self Harm, Anger, Thoughts of Harming Other, Other Psych Objective Physical Examination General Exam: Positive: Alert, Cooperative, No Acute Distress Eye Exam: Positive: PERRLA, Sclera icteric ENT Exam: Positive: Atraumatic, Mucous membr. moist/pink Neck Exam: Positive: Supple Chest Exam: Positive: Clear to auscultation, Normal air movement Heart Exam: Positive: Rate Normal Telemetry: Positive: Sinus Abdomen Exam: Positive: Normal bowel sounds, Other (distended with ascites and edema) Extremity Exam: Positive: Edema, Tenderness, Other (Left BKA) Neuro Exam: Positive: Normal Speech Psych Exam: Positive: Mental status NL, Oriented x 3; Negative: Anxiety A-FIB/CHADSVASC A-FIB History Current/History of A-Fib/PAF?: No Assessment /Plan Problems (1) S/P BKA (below knee amputation) unilateral Problem Text: S/P guilotine amputation Left foot as per Dr Estrella 04/02/19, completion of Left BKA 04/06/19. Continue dry dressing daily. Patient is afebrile. WBC 12.6 Patient remains on IV Vanco. IV Zosyn added back by Dr Cotton 04/17/19. Wound culture pending from 04/17/19. CRP 04/17/19 15.0. Possibly consider ID CLT. Relayed to Dr Estrella appearance of incision and concerns for poor healing. Plan is for wound debridement 04/20/19. (2) End-stage renal disease needing dialysis Status: Chronic (3) Diastolic congestive heart failure Status: Chronic (4) Diabetes mellitus type 2, insulin dependent Status: Chronic Plan/VTE VTE Prophylaxis Ordered?: Yes VTE Exclusion Pharmacological: Bleeding Risk VS, I&O, 24H, Fishbone Vital Signs/I&O Vital Signs Date Time Temp Pulse Resp B/P (MAP) Pulse Ox O2 Delivery O2 Flow Rate FiO2 04/19/19 07:45 2.0 04/19/19 06:30 94 04/19/19 06:00 97.3 69 20 141/65 (90) I&O- Last 24 Hours up to 6 AM 04/19/19 05:59 Intake Total 1820 ml Output Total 2100 ml Balance -280 ml Laboratory Data 24H LABS Laboratory Tests 2 04/18/19 11:43: Bedside Glucose (Misc Panel) 144H 04/18/19 16:46: Bedside Glucose (Misc Panel) 146H 04/18/19 19:58: Bedside Glucose (Misc Panel) 246H 04/19/19 01:52: Bedside Glucose (Misc Panel) 241H 04/19/19 05:21: Immature Granulocyte % (Auto) , Nucleated Red Blood Cells % (auto) 0.2H, Neutrophils 67, Band Neutrophils 2, Lymphocytes (Manual) 12L, Monocytes (Manual) 10H, Eosinophils (Manual) 2, Metamyelocytes 3H, Myelocytes 2H, Atypical Lymphocytes 2, Platelet Estimate NORMAL, Polychromasia 1+, Basophilic Stippling 1+, Anisocytosis 1+, Anion Gap 7L, Glomerular Filtration Rate 13.8L, Blood Urea Nitrogen 28H, Creatinine 3.49H, Sodium Level 138, Potassium Level 3.5, Chloride Level 102, Carbon Dioxide Level 29, Calcium Level 7.9L, Total Creatine Kinase 13L, Creatine Kinase MB 2.0, Creatine Kinase MB Relative Index 16.15H, Troponin I < 0.02, Random Vancomycin Level 19.8 CBC/BMP Laboratory Tests 04/19/19 05:21 Red Blood Count 3.58 L, Mean Corpuscular Volume 97.8 H, Mean Corpuscular Hemoglobin 29.6, Mean Corpuscular Hemoglobin Concent 30.3 L, Red Cell Distribution Width 19.1 H, Calcium Level 7.9 L Microbiology Microbiology 04/17/19 Gram Stain - Final, Resulted 04/17/19 Wound Culture - Preliminary, Resulted Streptococcus Christianoeris SHAGGY MASON MD April 19, 2019 11:33
[2019-04-19] MEDS: **VANCO AFTER HD** MISC XX SCH (12:39)
--- NOTE | 2019-04-19 13:57 | IPN ---
DATE: 04/17/2019 She is a 68-year-old female who was admitted status post guillotine amputation of the left foot by Dr. Estrella 04/02/2019 and completion of left below-knee amputation 04/06/2019. She continues to have drainage from the left below-knee amputation, redness. Culture will be sent. She continues on vancomycin, and Zosyn is going to be reintroduced. LABORATORY STUDIES: WBCs are up to 11.1 from 9.6 yesterday. Hemoglobin 10.4, hematocrit 35.6, platelets 191. Electrolytes are normal. BUN is up slightly at 65. Creatinine is up at 6.54. C-reactive protein is 15. Fingerstick blood sugar this morning 125. PHYSICAL EXAM: 68-year-old cooperative female in no acute distress. Blood pressure 133/62, pulse 73, respirations 18, oxygen saturation 94% on 1 liter. Pupils equal and reactive to light. Extraocular movements intact. Pharynx, tongue, gums pink and moist. Tongue is midline. Neck is supple without lymphadenopathy. No thyromegaly. No goiter. Jugular venous pressure is at clavicle at 60 degrees. Chest has decreased breath sounds. No wheeze or retraction. Heart is regular. Abdomen is soft, distended, nontender. No masses, pulsations, or bruits. No organomegaly. Bowel sounds are positive. Genitourinary ()/Rectal: Not done. Extremities: Dressing left leg dry and intact. +1 edema of the right lower extremity. Tenderness, redness, erythema at the left [id number] amputation (BKA). IMPRESSION/PLAN: Charcot foot, left foot abscess, status post left [id number] amputation. Continue antibiotic therapy, adding Zosyn back. Continue vancomycin. Culture and sensitivity (C and S) wound. Vascular following. Dr. Fontanez following. Acute on chronic diastolic heart failure. Patient had paracentesis yesterday with over 9 liters removed. She is still volume overloaded. Dialysis and diuretics per nephrology. End-stage liver disease. Continues with recurring ascites, requiring paracentesis. Hypertension with intermittent hypotension secondary to fluid removal. Continue antihypertensives with holding parameters. End-stage renal disease (ESRD). Dialysis management per nephrology. Hyperkalemia. Continue Veltassa. Monitor electrolytes daily. Continued avoidance of angiotensin-converting enzyme (POLLO) and ARBs. Anemia due to chronic disease. Monitor hemoglobin and hematocrit. Deep venous thrombosis (DVT) prophylaxis. Subcu heparin.
[2019-04-19 14:00] VITALS: BP 141/67
--- NOTE | 2019-04-19 15:01 | IPNPDOC ---
PM&R Progress Note DATE OF SERVICE: April 19, 2019 Criminal Attorney Progress Note Subjective: Patient reports having loose stools and an episode of chest mazariegos around 5 am this morning that subsided. REVIEW OF SYSTEMS: The following is a completed review of systems and has been reviewed. Review of systems otherwise unremarkable. PAIN: Patient self reports no pain at rest EYES: Negative for recent vision loss EARS, NOSE, & THROAT: denies dysphagia, rhinorrhea, hearing loss CARDIOVASCULAR: denies chest pain, +exertional dyspnea PULMONARY: Negative. Denies shortness of breath except on exertion GASTROINTESTINAL: + ascites (improving) GENITOURINARY: Negative for dysuria MUSCULOSKELETAL: +arthritis, right foot toe amputations, left BKA NEUROLOGICAL: peripheral neuropathy HEMATOLOGICAL: +anemic SKIN: right D1 ischemic ulcer, left BKA incision with blisters, eschar patch just beneath incision line PSYCHIATRIC:+anxious All other review of systems found to be negative. PHYSICAL EXAMINATION: VITAL SIGNS: Please see below. GENERAL: Pleasant and cooperative. No acute distress. smiling HEENT: PERRL. Extraocular movements intact. Clear conjunctiva CARDIOVASCULAR: Regular rate and rhythm. No murmurs, rubs, or gallops LUNGS: Clear to auscultation bilaterally. No wheezes. No rhonchi ABDOMEN: Soft, very distended, however minimal pain with palpation, no guarding, Positive bowel sounds. NEUROLOGICAL: Alert and oriented times three. Cranial nerves II through XII grossly intact. Sensation grossly intact in UE, diminished in bilat LE EXTREMITIES: 5-\\5 strength bilateral upper extremities. 5-\\5 strength right lower extremity. 5-/5 strength in left hip flexion knee extension and knee flexion SKIN: left forearm AVF, right calf edematous with erythema (negative Homans) left BKA incision with blisters, eschar patch just beneath incision line with purulence ASSESSMENT:-year-old 68 with past medical history of ESRD on HD and PVD who pres ents status post left BKA PLAN: 1. Rehab: OT/PT, assess for DME needs, difficulty transferring with slide board, improving squat pivots 2. Vascular- s/p left BKA on 04/06/[address] Estrella, was on IV Zosyn and Vanco- wound with eschar and purulence, discussed case with vascular with plan for debridement tomorrow AM, CRP elevated to 15- c/u on Zosyn and Vanco- Vanco level today 19 c/u management per pharmacy -ID consulted to follow along, wound cx + strep Uberis 3. Skin: left BKA with blisters and signs of poor circulation and eschar- c/u dressing changes, avoid use of hangar orthotic as this creates friction and moisture as does not fit securely to patient's limb- wound not healing well, plan for debridement tomorrow 4. CArdiac: pmh CAD s/p 4 stents, medicine consulted, c/u meds, episode of chest pain this morning, CXR showing increased in interstitial marking, troponin negat john, no acute ST changes-asymptomatic now -c/u Plavix, patient refusing due to concern for bleeding -pmh diastolic CHF- on dialysis with renal monitoring fluid balance 5. Resp: requiring supplemental oxygen due to poor ventilation in setting of ascites, encourage incentive spirometry and monitor for infection 6. Renal: ESRD on HD M/W/F- renal consulted, recs appreciated 7. GI: pmh cirrhosis with ascites, was getting paracentesis q2 weeks prior to hospitalization, concern for recent bleeding on last procedure 04/05/19- s/p paracentesis 04/16/19, abdomen softer -protonix and TUMS for dyspepsia and ppx 8. DVT ppx: heparin 9. Pain: NO opioids, patient had altered mental status and low arousal s/p Narcan 04/15/19, c/u tylenol and gabapentin, AVOID adding any opioids as patient as fluctuating levels of arousal throughout the day and needs to be optimized for therapy 10. PScyh: pmh anxiety/depression, c/u home meds 11. Dispo: TBD Allergies Coded Allergies: pregabalin (Verified Adverse Reaction, Intermediate, "feeling weird", SI thoughts., 03/06/19) Vital Signs Vital Signs Date Time Temp Pulse Resp B/P (MAP) Pulse Ox O2 Delivery O2 Flow Rate FiO2 04/19/19 07:45 2.0 04/19/19 06:30 94 04/19/19 06:00 97.3 69 20 141/65 (90) Laboratory Data CBC/BMP Laboratory Tests 04/19/19 05:21 Red Blood Count 3.58 L, Mean Corpuscular Volume 97.8 H, Mean Corpuscular Hemoglobin 29.6, Mean Corpuscular Hemoglobin Concent 30.3 L, Red Cell Distribution Width 19.1 H, Calcium Level 7.9 L Labs 24H Laboratory Tests 2 04/18/19 16:46: Bedside Glucose (Misc Panel) 146H 04/18/19 19:58: Bedside Glucose (Misc Panel) 246H 04/19/19 01:52: Bedside Glucose (Misc Panel) 241H 04/19/19 05:21: Immature Granulocyte % (Auto) , Nucleated Red Blood Cells % (auto) 0.2H, Neutrophils 67, Band Neutrophils 2, Lymphocytes (Manual) 12L, Monocytes (Manual) 10H, Eosinophils (Manual) 2, Metamyelocytes 3H, Myelocytes 2H, Atypical Lymphocytes 2, Platelet Estimate NORMAL, Polychromasia 1+, Basophilic Stippling 1+, Anisocytosis 1+, Anion Gap 7L, Glomerular Filtration Rate 13.8L, Blood Urea Nitrogen 28H, Creatinine 3.49H, Sodium Level 138, Potassium Level 3.5, Chloride Level 102, Carbon Dioxide Level 29, Calcium Level 7.9L, Total Creatine Kinase 13L, Creatine Kinase MB 2.0, Creatine Kinase MB Relative Index 16.15H, Troponin I < 0.02, Random Vancomycin Level 19.8 04/19/19 11:40: Bedside Glucose (Misc Panel) 216H Microbiology Microbiology 04/17/19 Gram Stain - Final, Resulted 04/17/19 Wound Culture - Preliminary, Resulted Streptococcus Uberis Current Medications Current Medications Current Medications Acetaminophen (Tylenol Tab) 650 mg Q4HP PRN PO MILD PAIN (PS 1-4) Last administered on 04/18/19at 22:28; Start 04/12/19 at 12:15 Al Hydrox/Mg Hydrox/Simethicone (Mylanta) 30 ml Q4HP PRN PO DYSPEPSIA; Start 04/12/19 at 12:15 Calcium Carbonate (Tums) 1,000 mg WM PO Last administered on 04/19/19at 12:37; Start 04/12/19 at 12:30 Clopidogrel Bisulfate (PLAVix) 75 mg DAILY PO ; Start 04/13/19 at 09:00; Stop 04/13/19 at 09:00; Status DC Clopidogrel Bisulfate (PLAVix) 75 mg DAILY PO Last administered on 04/19/19at 09:23; Start 04/17/19 at 09:00 Darbepoetin Yordan (Aranesp (Dialysis Use)) 100 mcg HD IV ; Start 04/13/19 at 08:30 Dextrose (Dextrose 50%) 25 ml ASDIRECTED PRN IV SEE LABEL COMMENTS; Start 04/12/19 at 12:15 Docusate Sodium (Colace) 100 mg BID PO Last administered on 04/19/19 09:23; Start 04/12/19 at 21:00 Duloxetine HCl (Cymbalta) 30 mg DAILY PO Last administered on 04/19/19at 09:22; Start 04/13/19 at 09:00 Gabapentin (Neurontin) 300 mg BID PO Last administered on 04/19/19at 09:22; Start 04/12/19 at 21:00 Glucagon (Glucagon) 1 mg ASDIRECTED PRN SC SEE LABEL COMMENTS; Start 04/12/19 at 12:15 Glucose (Glucose) 16 GM ASDIRECTED PRN PO SEE LABEL COMMENTS; Start 04/12/19 at 12:15 Heparin Sodium (Porcine) (Heparin) 5,000 units Q12H SC Last administered on 04/19/19at 09:22; Start 04/12/19 at 21:00 Insulin Detemir (Levemir Insulin) 10 units DAILY SC Last administered on 04/19/19at 09:21; Start 04/13/19 at 09:00 Insulin Detemir (Levemir Insulin) 10 units QHS SC Last administered on 04/18/19at 22:27; Start 04/12/19 at 21:00 Insulin Human Lispro (HumaLOG INSULIN) SEE PROTOCOL TABLE AC SC Last administered on 04/19/19at 12:37; Start 04/12/19 at 17:30 Insulin Human Lispro (HumaLOG INSULIN) SEE PROTOCOL TABLE QHS SC ; Start 04/12/19 at 21:00 Iron (Venofer) 100 mg HD IV ; Start 04/13/19 at 16:15; Stop 04/18/19 at 23:59; Status DC Levothyroxine Sodium (Synthroid) 125 mcg DAILY@06 PO Last administered on 04/19/19at 06:29; Start 04/13/19 at 06:00 Metoprolol Succinate (TopROL XL) 25 mg BID PO Last administered on 04/17/19at 21:46; Start 04/12/19 at 21:00; Stop 04/18/19 at 09:05; Status DC Mineral Oil/White Petrolatum (Eucerin) TO RLE BID TOP Last administered on 04/19/19at 09:26; Start 04/12/19 at 21:00 Miscellaneous (Unresolved Clarification Entry) SEE LABEL COMMENTS DAILY XX ; Start 04/19/19 at 09:00 Morphine Sulfate (Morphine Sulfate Inj) 4 mg Q4HP PRN IV SEVERE PAIN (PS 8-10); Start 04/12/19 at 16:00; Stop 04/13/19 at 10:52; Status DC Naloxone HCl (Narcan) 0.2 mg STAT STAT IV Last administered on 04/15/19at 15:38; Start 04/15/19 at 15:30; Stop 04/15/19 at 15:31; Status DC Non-Formulary Medication ( See Comment Field Below ) CHECK TO SEE IF THE PATIENT... DAILY@1600 XX ; Start 04/12/19 at 16:00 Ondansetron HCl (Zofran) 4 mg Q6HP PRN PO NAUSEA; Start 04/12/19 at 12:15 Oxycodone HCl (OxyCONTIN) 10 mg BID PO Last administered on 04/15/19at 08:41; Start 04/12/19 at 21:00; Stop 04/15/19 at 18:30; Status DC Pantoprazole Sodium (Protonix) 40 mg DAILY PO Last administered on 04/19/19at 09:22; Start 04/13/19 at 09:00 Patiromer (Veltassa) 8.4 gm ASDIRECTED PRN PO SEE INSTRUCTIONS; Start 04/12/19 at 12:15; Status Cancel Piperacillin Sod/ Tazobactam Sod 2.25 gm/Dextrose 50 ml @ 100 mls/hr Q12H IV ; Start 04/17/19 at 14:00; Stop 04/17/19 at 21:05; Status DC Piperacillin Sod/ Tazobactam Sod 2.25 gm/Dextrose 50 ml @ 100 mls/hr Q12H IV Last administered on 04/19/19at 09:20; Start 04/17/19 at 21:00 Ropinirole HCl (Requip) 1 mg QHS PO Last administered on 04/18/19at 22:27; Start 04/12/19 at 21:00 Senna (Senokot) 1 tab QHS PO Last administered on 04/12/19at 21:39; Start 04/12/19 at 21:00 Simvastatin (Zocor) 20 mg QHS PO Last administered on 04/18/19at 22:24; Start 04/12/19 at 21:00 Trazodone HCl (Desyrel) 50 mg QPM PRN PO INSOMNIA; Start 04/12/19 at 16:00 Vancomycin HCl 750 mg/IV Miscellaneous Supplies 15 ml @ 15 mls/hr ASDIRECTED IV ; Start 04/12/19 at 12:15; Stop 04/12/19 at 13:03; Status DC Vancomycin HCl 750 mg/IV Miscellaneous Supplies 1 each/ Dextrose 275 ml @ 275 mls/hr HD IV ; Start 04/12/19 at 13:15; Stop 04/18/19 at 10:58; Status DC Vancomycin HCl 1000 mg/IV Miscellaneous Supplies 1 each/ Dextrose 270 ml @ 270 mls/hr HD IV Last administered on 04/18/19at 16:24; Start 04/18/19 at 16:00 Vancomycin HCl 1000 mg/IV Miscellaneous Supplies 1 each/ Dextrose 283.3333 ml @ 275 mls/hr HD IV ; Start 04/18/19 at 16:00; Stop 04/18/19 at 16:00; Status DC A-FIB/CHADSVASC A-FIB History Current/History of A-Fib/PAF?: No WALTER BARRERA MD April 19, 2019 15:00
--- NOTE | 2019-04-19 15:30 | IPN ---
DATE: 04/19/2019 SUBJECTIVE: The patient is seen and examined this morning at the bedside. She had a more successful dialysis treatment yesterday than in the past couple of weeks. Two liters of fluid were removed with concomitant albumin infusion, and she is agreeable for an extra dialysis treatment on Tuesday in addition to her usual dialysis on Tuesday. She complains this morning of left-sided rib pain after physical therapy. VITAL SIGNS: Temperature 97.3, pulse 69, respiratory rate 20, blood pressure 141/65, saturating 100% on 2 liters nasal cannula. Intake yesterday was 1820. Dialysis yesterday removed 2 liters, net negative 280. Weight in the bed scale today is not recorded. GENERAL: The patient is seen lying in bed. Elderly female in no acute distress. Extraocular muscles are intact and is moist. Neck is supple. Jugular veins are elevated. CARDIAC: S1, S2, regular rate and rhythm. LUNGS: Shows symmetric air entry bilaterally, diminished at the bases but no crackles or rale. ABDOMEN: Soft and distended. There is ascitic fluid present. The lower extremities show 2+ pitting edema that extends up to the hip, thigh, and abdominal areas. There is a left [id number] amputation with dressings, and the right lower extremity is also in dressings that are wrapped up to the knee. NEUROLOGIC: She is oriented times three. No focal deficits. DIALYSIS ACCESS: There is a fistula on the left arm that is patent with thrill and bruit. LABORATORY DATA: White count 12.6, hemoglobin 10.6. Sodium 136, potassium 3.5. Random vancomycin 918. Chest x-ray, 2-view, April 19: Intact bony structure and pulmonary vasculature is normal in appearance. INPATIENT MEDICATIONS: She continues on renally dosed vancomycin and Zosyn. Her remainder of medications are unchanged from prior. PROBLEMS: 1. End-stage renal disease, on hemodialysis on a Tuesday, Tuesday, Tuesday schedule. She tolerated 2 liters of fluid removal with dialysis yesterday with albumin. We will plan to dialyze her again on Tuesday and Tuesday, both times with albumin for hemodynamic support. She remains grossly volume overloaded, and it is complicating her care. Otherwise, the hypotension of hemodialysis seems improved with discontinuation of metoprolol and addition of albumin. 2. Decompensated diastolic congestive heart failure, volume overloaded with recurrent ascites. Plan for extra dialysis treatment on Tuesday in addition to her usual treatment on Tuesday, and she is going to receive albumin with hemodialysis for improved hemodynamics so that she can tolerate further fluid removal. 3. Hypotension of hemodialysis. Complicates ability to remove fluid. She is now off of all antihypertensives and is receiving albumin with dialysis. 4. Anemia related to chronic renal failure, iron deficiency, inflammation. She received a series of Venofer times 10 doses and is now continued on Aranesp. 5. Severe protein calorie malnutrition. Encourage dietary protein. Her severe hypoalbuminemia is contributing to the significant peripheral edema, and she will receive albumin with dialysis. 6. Status post left pwrdg-[id number]-twlq amputation. She continues on renally dosed vancomycin and Zofran, and her random vancomycin level was appropriate this morning. Vascular surgery is re-evaluating her for any further amputation needs. She is for wound debridement tomorrow.
--- NOTE | 2019-04-19 15:46 | IPN ---
DATE: 04/18/2019 She is a 68-year-old female with a past medical history significant for end-stage renal disease on hemodialysis, advanced liver cirrhosis requiring paracentesis, diastolic heart failure, coronary artery disease, hyperparathyroidism, hypothyroidism, type 2 diabetes, depression and anxiety. She was initially admitted for volume overload and worsening foot infection. She subsequently had a second and third toe amputation and later a below the knee amputation. She has been discharged to acute rehabilitation unit for further evaluation and management for mobilization and strengthening. Today, she states that she feels well. She has no fevers, chills, chest pain, shortness of breath, palpitations, abdominal pain, nausea, or vomiting. She does have some discomfort at the stump on the left with increased drainage, redness and swelling. Per Dr. Estrella, plan is for wound debridement on 04/19/2019. PHYSICAL EXAMINATION: 68-year-old cooperative female in no acute distress. The patient is alert and oriented times three. Blood pressure 106/58, pulse 71, respirations 19, oxygen saturation 97% on 2 liters. Temperature is 97.4. The patient is alert and oriented times three. Pupils are equal and reactive to light. Pharynx, gums and tongue pink and moist. Tongue is midline. NECK: Supple without lymphadenopathy, thyromegaly or goiter. Jugular venous pressure is at the clavicle. CHEST: Clear to auscultation without wheeze or retraction. HEART: Regular. ABDOMEN: Distended, nontender. No masses, pulsations or bruits. No organomegaly. Bowel sounds positive. EXTREMITIES: Veronica intact on left lower stump. Yellow drainage noted. Dark area that is discolored. NEUROLOGIC: Alert and oriented. No focal deficits appreciated. IMPRESSION/PLAN: 1. Status post Charcot foot in the left foot, status post left below the knee amputation. White count is elevating. The area is reddened and swollen. Yellow discharge. Dr. Estrella to debride on 04/19/2019. Infectious disease consultation being ordered. Continues on vancomycin. 2. Acute on chronic diastolic heart failure. The patient is on hemodialysis. As per Dr. Grullon's note, she is significantly volume overloaded. Fluid removal has been complicated by hypotension during hemodialysis. She is going to receive aggressive albumin with hemodialysis and plans for extra dialysis treatments if agreeable. 3. End stage liver disease. She had paracentesis on the with 9 liters removed. She will continue to get paracentesis as needed. Also, albumin therapy with hemodialysis. 4. Hypertension with intermittent episodes of hypotension. Antihypertensives have been discontinued. 5. End stage renal disease. Hemodialysis management by nephrology. 6. Hyperkalemia. Potassium has remained stable at 3.9 to 4.2. 7. Deep vein thrombosis (DVT) prophylaxis. Continues on heparin subcutaneously. LABORATORY DATA: White count is up today to 16.2, hemoglobin 10.4, hematocrit 36.7. Electrolytes are normal. BUN is 38, creatinine 4.53, calcium 7.6, magnesium 1.8.
[2019-04-19 20:00] VITALS: BP 127/62
[2019-04-19] MEDS: rOPINIRole 1MG TAB PO SCH (21:35)
[2019-04-19] MEDS: SIMVASTATIN 20 MG TAB PO SCH (21:35)
--- NOTE | 2019-04-19 23:15 | CR ---
DATE OF CONSULTATION: 04/19/2019 Asked to consult by Dr. Cotton for evaluation of left stump necrosis and infection, HISTORY OF PRESENT ILLNESS: Dalila is a pleasant 68-year-old female with a history of end-stage renal disease on hemodialysis, idiopathic cirrhosis, requiring paracentesis every couple weeks, diastolic congestive heart failure who has had multiple infections of her left foot. She was last seen by myself in January with Streptococcus bacteremia and a gangrene. She was admitted again on 03/21. She had debridement of the foot done. There was diffuse subchondral edema and involvement of the tarsal bones, tibia-fibula and large joint effusion at the tibiotalar joint, a complex fluid collection centered between the first, the second and third metatarsals. Vascular surgery was consulted for intervention. She had amputation of second and third toe on 03/27 and then a guillotine amputation on 04/03. The patient had been feeling well otherwise. She has been on IV antibiotics intermittently over the past month. Initially, she was on levofloxacin on 03/25 to March 31. She has received vancomycin from March 21 to April 18, Zosyn 03/21 until , March 31 to April 12 and then that was resumed April 17 and currently she is on IV vancomycin and Zosyn. Culture from the left below-knee amputation (BKA) site where there is increased erythema, purulence and anterior gangrene of the stump was positive for Streptococcus. The final culture is pending. The patient has had no fever or chills. No nausea or vomiting. She has some diarrhea from chronic antibiotics. She complains of bloating from cirrhosis and ascites. REVIEW OF SYSTEMS: No fever, chills or night sweats. No nausea or vomiting, abdominal bloating and ascites. She has no urinary output. She complains of neuropathy and pain at the below-knee amputation (BKA) only when touched. PAST SURGICAL HISTORY: Multiple lower extremity toe amputations on the right foot. She has a second toe amputation, a callus on the big toe, cardiac stents, left arm fistula, appendectomy, hysterectomy, bilateral cataract surgery. SOCIAL HISTORY: She lives alone. She is a . No alcohol or drug use. Her daughter is diabetic and is her support. ALLERGIES: PREGABALIN. MEDICATIONS: - vancomycin 1 gram IV with dialysis - Zosyn 2.25 grams IV every 12 hours, that was resumed on April 17 - Protonix 40 mg daily - fluoxetine 30 mg daily - Levemir 10 units subcutaneous daily - Aranesp 100 mcg IV daily - levothyroxine 125 mcg daily - Colace 100 mg by mouth twice a day - Senokot one tablet by mouth at bedtime (q.h.s.) - The patient has been refusing gabapentin 300 mg by mouth twice a day - Eucerin to toes - insulin sliding scale - Zocor 20 mg by mouth at bedtime (q.h.s.) - Requip 1 mg by mouth at bedtime (q.h.s.) - calcium carbonate one tablet by mouth with meals - Zofran as needed LABORATORY DATA: White count is 12.6 which is down from 16.2 yesterday, hemoglobin 10.6, hematocrit 35, platelets 184, 67% neutrophils, 12% lymphocytes, 10% monocytes, 3% metamyelocytes. Sodium 138, potassium 3.5, chloride 102, bicarb 29, BUN 28, creatinine 3.49, glucose 166, calcium 7.9, CRP 15, troponin less than 0.02. Vancomycin random level is 19.8. Wound culture from left stump had Streptococcus. She is resistant to ampicillin, cefotaxime, Rocephin only sensitive to doxycycline. The vancomycin is not listed. This will be reviewed with micro tomorrow. On physical exam, pleasant female in no acute distress. Temperature is 97.3, pulse 69, respirations 20, blood pressure 141/65, oxygen saturation 94% on 2 liters. She has been afebrile for the past week. Heart: Normal S1-S2 distant. No murmurs. Lungs: Clear. No wheezes, rales or rhonchi. Diminished at the bases. Abdomen: Soft, distended with ascites. Nontender. No erythema. Extremities: Right leg with +1 edema and an ulcer on the big toe, dry scab with no evidence of infection. Left leg BKA with erythematous stump and gangrenous black eschar on the anterior aspect of the stump measuring about 10 x 7 cm slightly tender to touch. Neurologic Exam: Alert, oriented x3. Dialysis left AV fistula nontender with a thrill. No evidence of infection. IMPRESSION: 68-year-old female with end-stage renal disease, diabetes, congestive heart failure, ascites and cirrhosis who is status post left below-knee amputation with worsening leukocytosis, evidence of stump Infection, a culture positive for streptococcus, multidrug resistant. She is currently on IV vancomycin and Zosyn. The patient going for revision tomorrow. PLAN: 1. Please repeat intraoperative culture after debridement sent for aerobic and anaerobic cultures. 2. Continue IV vancomycin and Zosyn until results of culture is available. 3. Discontinue stool softeners. The patient is complaining of loose stools and had five bowel movements yesterday.
[2019-04-20] MEDS: LEVOTHYROXINE 125MCG TABLET (0.125MG) PO SCH (05:27)
[2019-04-20 06:00] VITALS: BP 145/70
[2019-04-20] MEDS: HumaLOG INSULIN (NovoLOG) PER UNIT SC SCH ×4 (07:30→21:00)
[2019-04-20 07:50] LABS: BASO # 0.1 10^3/uL (0.0-0.2); EOS # 0.5 10^3/uL (0.0-0.50); EOS % 3.8 % (0.0-3.0); HEMATOCRIT 35.2 % (36.0-47.0); HEMOGLOBIN 10.5 g/dl (12.0-15.5); LYMPH # 1.3 10^3/uL (1.5-4.5); LYMPH % 10.3 % (24.0-44.0); MEAN CORPUSCULAR HEMOGLOBIN 29.4 pg (27.0-33.0); MEAN CORPUSCULAR HGB CONC 29.8 g/dl (32.0-36.5); MEAN CORPUSCULAR VOLUME 98.6 fl (80.0-96.0); MONO # 1.5 10^3/uL (0.0-0.8); MONO % 11.4 % (0.0-5.0); NEUTROPHILS # 8.9 10^3/uL (1.8-7.7); NEUTROPHILS % 68.7 % (36.0-66.0); PLATELET COUNT, AUTOMATED 192 10^3/uL (150-450); RED BLOOD COUNT 3.57 10^6/uL (4.00-5.40)
[2019-04-20] MEDS: CALCIUM CARBONATE 500 MG CHEW U/D PO SCH ×3 (08:00→17:12)
[2019-04-20 08:09] LABS: ALBUMIN 1.6 GM/DL (3.2-5.2); BILIRUBIN,TOTAL 0.5 MG/DL (0.2-1.0); CALCIUM LEVEL 7.6 MG/DL (8.8-10.2); CREATININE FOR GFR 4.48 MG/DL (0.55-1.30); GLOMERULAR FILTRATION RATE 10.3 (>39); POTASSIUM SERUM 4.1 MEQ/L (3.5-5.1); TOTAL PROTEIN 6.6 GM/DL (6.4-8.2)
[2019-04-20] MEDS: DULoxetine 30 MG CAP (CYMBALTA) PO SCH (08:26)
[2019-04-20] MEDS: GABAPENTIN 300 MG CAP PO SCH ×2 (08:26→21:41)
[2019-04-20] MEDS: PIPERACILLIN/TAZOBACTAM SOD 2.25 GM in D5W MINI-BAG PLUS 50 ML IV SCH ×2 (08:27→21:43)
[2019-04-20] MEDS: HEPARIN SOD (PORCINE) 5000 UNITS/ML VIAL SC SCH ×2 (08:27→21:42)
[2019-04-20] MEDS: LEVEMIR (INSULIN DETEMIR) 1 UNITS/0.01ML SC SCH ×2 (08:27→21:46)
[2019-04-20] MEDS: PANTOPRAZOLE 40MG TAB (PROTONIX) PO SCH (08:27)
[2019-04-20] MEDS: EUCERIN 120GM CREAM TOP SCH ×2 (08:27→21:43)
[2019-04-20] MEDS: CLOPIDOGREL 75 MG TAB PO SCH (08:27)
[2019-04-20] MEDS ORDERED: HEPARIN 1,000 UNITS/ML 10ML VIAL (FOR RADIOLOGY& DIALYSIS ONLY) IV ONE (12:45)
[2019-04-20] MEDS ORDERED: LIDOCAINE 1% SDV 5 ML VIAL SQ ONE (12:45)
--- NOTE | 2019-04-20 13:13 | IPNPDOC ---
Subjective Date Seen The patient was seen on 04/20/19. Subjective Chief Complaint/HPI Patient is comfortable in no distress. Offers no new complaints General: Denies: ROS Unobtainable, Chills, Night Sweats, Fatigue, Malaise, Normal Appetite, Other Symptoms Constitutional: Denies: Chills, Fever, Malaise, Night Sweats, Weakness, Fatigue, Weight Loss, Lethargy, Other Eyes: Denies: Pain, Vision change, Conjunctivae inflammation, Eyelid inflammation, Redness, Other ENT: Denies: Head Aches, Ear Pain, Dysphagia, Sinus Congestion, Post Nasal Dri p, Sore Throat, Epistaxis, Other Symptoms Skin: Denies: Rash, Lesions, Jaundice, Bruising, Itching, Dry, Breakdown, Nail Changes, Other Pulmonary: Denies: Dyspnea, Cough, Pleuritic Chest Pain, Other Symptoms Cardiovascular: Denies: Chest Pain, Palpitations, Orthopnea, Paroxysmal Noc. Dyspnea, Edema, Lt Headedness, Other Symptoms Gastrointestinal: Denies: Nausea, Vomiting, Abdominal Pain, Diarrhea, Constipation, Melena, Hematochezia, Other Symptoms Genitourinary: Denies: Dysuria, Frequency, Incontinence, Hematuria, Retention, Other Symptoms Hematologic: Denies: Bruising, Bleeding Excessively, Petecchia, Purpura, Enlarged Lymph Nodes, Other Hematologic Endocrine: Denies: Polydipsia, Polyphagia, Polyuria, Heat Intolerance, Cold Intolerance, Other Endocrine Sx Musculoskeletal: Denies: Neck Pain, Back Pain, Shoulder Pain, Arm Pain, Hand Pain, Leg Pain, Foot Pain, Joint Pain, Muscle Pain, Spasms, Other Symptoms Neurological: Denies: Weakness, Numbness, Incoordination, Change in speech, Confusion, Seizures, Other Symptoms Psych: Denies: Mood Normal, Anxiety, Depression, Memory Issues, Thoughts of Self Harm, Anger, Thoughts of Harming Other, Other Psych Objective Physical Examination General Exam: Positive: Alert, Cooperative, No Acute Distress Eye Exam: Positive: PERRLA, Sclera icteric ENT Exam: Positive: Atraumatic, Mucous membr. moist/pink Neck Exam: Positive: Supple Chest Exam: Positive: Clear to auscultation, Normal air movement Heart Exam: Positive: Rate Normal Telemetry: Positive: Sinus Abdomen Exam: Positive: Normal bowel sounds, Other (distended with ascites and edema) Extremity Exam: Positive: Edema, Tenderness, Other (Left BKA) Neuro Exam: Positive: Normal Speech Psych Exam: Positive: Mental status NL, Oriented x 3; Negative: Anxiety Assessment /Plan Problems (1) S/P BKA (below knee amputation) unilateral Problem Text: S/P guilotine amputation Left foot as per Dr Estrella 04/02/19, completion of Left BKA 04/06/19. Continue dry dressing daily. Patient is afebrile. WBC 12.6 Patient remains on IV Vanco. IV Zosyn added back by Dr Cotton 04/17/19. Wound culture pending from 04/17/19. CRP 04/17/19 15.0. Possibly consider ID [id number]. Relayed to Dr Estrella appearance of incision and concerns for poor healing. Plan is for wound debridement 04/20/19. (2) End-stage renal disease needing dialysis Status: Chronic (3) Diastolic congestive heart failure Status: Chronic (4) Diabetes mellitus type 2, insulin dependent Status: Chronic Plan/VTE VTE Prophylaxis Ordered?: Yes VTE Exclusion Pharmacological: Bleeding Risk VS, I&O, [facility] Signs/I&O Vital Signs Date Time Temp Pulse Resp B/P (MAP) Pulse Ox O2 Delivery O2 Flow Rate FiO2 04/20/19 06:00 98.2 79 18 145/70 (95) 93 04/19/19 21:51 2.0 I&O- Last 24 Hours up to 6 AM 04/20/19 06:00 Intake Total 960 ml Balance 960 ml Laboratory Data 24H LABS Laboratory Tests 2 04/19/19 16:56: Bedside Glucose (Misc Panel) 157H 04/19/19 21:28: Bedside Glucose (Misc Panel) 159H 04/20/19 07:11: Immature Granulocyte % (Auto) 4.8H, White Blood Count 13.0H, Red Blood Count 3.57L, Hemoglobin 10.5L, Hematocrit 35.2L, Mean Corpuscular Volume 98.6H, Mean Corpuscular Hemoglobin 29.4, Mean Corpuscular Hemoglobin Concent 29.8L, Red Cell Distribution Width 19.4H, Platelet Count 192, Neutrophils (%) (Auto) 68.7H, Lymphocytes (%) (Auto) 10.3L, Monocytes (%) (Auto) 11.4H, Eosinophils (%) (Auto) 3.8H, Basophils (%) (Auto) 1.0, Neutrophils # (Auto) 8.9H, Lymphocytes # (Auto) 1.3L, Monocytes # (Auto) 1.5H, Eosinophils # (Auto) 0.5, Basophils # (Auto) 0.1, Nucleated Red Blood Cells % (auto) 0.0, Anion Gap 7L, Glomerular Filtration Rate 10.3L, Blood Urea Nitrogen 42H, Creatinine 4.48H, Sodium Level 136, Potassium Level 4.1, Chloride Level 102, Carbon Dioxide Level 27, Calcium Level 7.6L, Aspartate Amino Transf (AST/SGOT) 35, Alanine Aminotransferase (ALT/SGPT) 21, Alkaline Phosphatase 466H, Total Bilirubin 0.5, Total Protein 6.6, Albumin 1.6L, Albumin/Globulin Ratio 0.32L 04/20/19 12:15: Bedside Glucose (Misc Panel) 86 CBC/BMP Laboratory Tests 04/20/19 07:11 Red Blood Count 3.57 L, Mean Corpuscular Volume 98.6 H, Mean Corpuscular Hemoglobin 29.4, Mean Corpuscular Hemoglobin Concent 29.8 L, Red Cell Distribution Width 19.4 H, Neutrophils (%) (Auto) 68.7 H, Lymphocytes (%) (Auto) 10.3 L, Monocytes (%) (Auto) 11.4 H, Eosinophils (%) (Auto) 3.8 H, Basophils (%) (Auto) 1.0, Neutrophils # (Auto) 8.9 H, Lymphocytes # (Auto) 1.3 L, Monocytes # (Auto) 1.5 H, Eosinophils # (Auto) 0.5, Basophils # (Auto) 0.1, Calcium Level 7.6 L, Aspartate Amino Transf (AST/SGOT) 35, Alanine Aminotransferase (ALT/SGPT) 21, Alkaline Phosphatase 466 H, Total Bilirubin 0.5, Total Protein 6.6, Albumin 1.6 L Microbiology Microbiology 04/17/19 Gram Stain - Final, Resulted 04/17/19 Wound Culture - Preliminary, Resulted Streptococcus Uberis Enterococcus Faecium SHAGGY MASON MD April 20, 2019 13:13
[2019-04-20 14:00] VITALS: BP 158/72
[2019-04-20] MEDS: ACETAMINOPHEN TAB 650MG DOSE (2X325MG) PO PRN ×2 (14:42→21:42)
[2019-04-20] MEDS: VANCOMYCIN HCL 1,000 MG, VIAL MATE ADAPTER 1 EACH in D5W 250 ML IV SCH (16:17)
[2019-04-20] MEDS: **VANCO AFTER HD** MISC XX SCH (16:26)
--- NOTE | 2019-04-20 18:09 | IPN ---
DATE: 04/20/2019 ELIZ Conner is seen and examined this morning in the hemodialysis unit receiving her maintenance treatment. She is for wound debridement later with Dr. Estrella this afternoon. Her hourly heparin was a held with the hemodialysis. Her blood pressures on dialysis have improved with albumin. She was dialyzed yesterday with 2 liters of fluid removed. Temperature 98.2, pulse 79, respiratory rate 18, blood pressure 145/70, saturating 93% of 2 liters nasal cannula. Dialysis today removed 1800 ml. General: The patient is seen on hemodialysis, awake, alert, oriented, no acute distress. Extraocular muscles are intact. Tongue is moist. Neck is supple. Jugular veins are elevated. Cardiac: S1, S2, regular rate and rhythm. She has plus edema in the peripheries. Lungs are clear to auscultation bilaterally. No crackle or rales. Abdomen is distended. There is ascitic fluid. It is nontender to palpation. The left upper extremity fistula is presently in use. The left of [id number] amputation site is wrapped in dressings. Both extremities show edema that extends up to the hip and thigh. Neurologic: She is oriented times three at baseline mentation. LABORATORY DATA White count 13.0, hemoglobin 10.5, platelets 192. Sodium 136, potassium 4.1. INPATIENT MEDICATIONS: Reviewed by myself. She continues on renally dosed vancomycin and Zosyn. Docusate was discontinued as was the Senokot. Remainder of medications are unchanged from prior. Chest x-ray on April 19 showed normal pulmonary vasculature and cardiomegaly. PROBLEMS: 1. End-stage renal disease on hemodialysis on Tuesday, Tuesday, Tuesday schedule. Will plan for extra ultrafiltration session on Tuesday with albumin for further control of her volume status. She remains overall volume overloaded with recurrent ascites, but her hypotension of hemodialysis is improved with albumin and with discontinuation of her beta jeffrey. We will continue to remove fluid as tolerated by the hemodynamics. Continue oral fluid restriction. 2. Decompensated diastolic congestive heart failure with peripheral edema and recurrent ascites. Plan for extra dialysis treatment on Tuesday. Continue with albumin support for improved hemodynamics so that she can tolerate further fluid removal. 3. Anemia related to chronic renal failure, iron deficiency, chronic inflammation. She had completed a series of Venofer times 10 doses and she continues on Aranesp. Hemoglobin is at goal and 10.5 today. 4. Severe protein calorie malnutrition. Albumin was 1.4 several days ago and up to 1.6 today. Encourage dietary protein. Continue with albumin support with hemodialysis treatment. The hypoalbuminemia is also contributing to her peripheral edema. 5. Status post left qhcqa-fwm-olvy amputation. Stump is apparently poorly healing. She is for wound debridement this afternoon. She continues on renally dosed vancomycin and Zosyn. Most recent random vancomycin level yesterday was appropriate at 19. Her white count and CRP do remain elevated. Managed as per primary and surgical team. Continue with rehabilitation.
[2019-04-20 20:00] VITALS: BP 134/60
[2019-04-20] MEDS: SIMVASTATIN 20 MG TAB PO SCH (21:41)
[2019-04-20] MEDS: rOPINIRole 1MG TAB PO SCH (21:42)
[2019-04-21] MEDS: LEVOTHYROXINE 125MCG TABLET (0.125MG) PO SCH (05:52)
[2019-04-21 06:00] VITALS: BP 153/79
[2019-04-21 06:52] LABS: BASO # 0.1 10^3/uL (0.0-0.2); BASO % 0.5 % (0.0-1.0); EOS # 0.4 10^3/uL (0.0-0.50); EOS % 3.7 % (0.0-3.0); HEMATOCRIT 37.7 % (36.0-47.0); HEMOGLOBIN 10.9 g/dl (12.0-15.5); LYMPH # 1.1 10^3/uL (1.5-4.5); MEAN CORPUSCULAR HEMOGLOBIN 29.1 pg (27.0-33.0); MEAN CORPUSCULAR HGB CONC 28.9 g/dl (32.0-36.5); MEAN CORPUSCULAR VOLUME 100.5 fl (80.0-96.0); MONO # 1.3 10^3/uL (0.0-0.8); MONO % 13.1 % (0.0-5.0); NEUTROPHILS # 6.3 10^3/uL (1.8-7.7); NEUTROPHILS % 66.1 % (36.0-66.0); PLATELET COUNT, AUTOMATED 167 10^3/uL (150-450); RED BLOOD COUNT 3.75 10^6/uL (4.00-5.40); WHITE BLOOD COUNT 9.5 10^3/uL (4.0-10.0)
[2019-04-21 07:29] LABS: ALBUMIN 2.2 GM/DL (3.2-5.2); BILIRUBIN,TOTAL 0.5 MG/DL (0.2-1.0); CALCIUM LEVEL 8.2 MG/DL (8.8-10.2); CREATININE FOR GFR 3.43 MG/DL (0.55-1.30); GLOMERULAR FILTRATION RATE 14.1 (>39); POTASSIUM SERUM 4.1 MEQ/L (3.5-5.1); TOTAL PROTEIN 6.7 GM/DL (6.4-8.2); VANCOMYCIN RANDOM 26.3 UG/ML
[2019-04-21] MEDS: HumaLOG INSULIN (NovoLOG) PER UNIT SC SCH ×4 (07:30→21:00)
--- NOTE | 2019-04-21 07:47 | PHACANCOPD ---
PHARMACY VANCOMYCIN DOSING Pt Demographics Demographics Patient Age:68 , Weight:77.200 , Gender: female Adjusted Body Weight Date: 04/18/19, Adjusted Body Weight: Kg Vancomycin Vancomycin indication: LEFT FOOT ABSCESS Vancomycin Target Ranges: 10-20 mcg/ml Vancomycin Load Y/N: No Load Dose Date Time Vancomycin Load Dose: Date: Time: Vancomycin Dose Date: 04/18/19. Current Vancomycin Dose: [1g IV HD] Intermittent Dosing?: Yes Labs Micro Microbiology 04/17/19 Gram Stain - Final, Resulted 04/17/19 Wound Culture - Preliminary, Resulted Streptococcus Uberis Enterococcus Faecium Creatinine Clearance Date:04/18/19. Est Creatinine Clearance: [~11.7ml/min]. Pending Labs Vancomycin random level 04/19/19 @0500, with AM labs Assessment and Plan Maintaining Current Dose?: No Reason for dose change: Other Pharmacist Note Pharmacist Note 04/21/19: Random level this morning resulted at 26.3mcg/ml. The patient was last dialyzed 04/18 and 04/20, and is pending another dialysis session today. We will hold any further vancomycin dosing today and schedule a follow-up random level to be drawn tomorrow with morning labs to ensure the patient remains within therapeutic range. Date: 04/18/19. 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 Vancomycin random level today resulted at 7.9mcg/ml (last level was therapeutic at 20.9mcg/ml). The patient's last hemodialysis sessions were 04/13/19 at 04/17/19. Upon further review it was discovered that the vancomycin was not given after the HD sessions on 04/13 or 04/17 - resulting in today's subtherapeutic random level. The patient is being dialyzed today and her vancomycin regimen has been increased by Dr. Grullon from 750mg IV HD to 1g IV HD - to start after today's HD session. The patient's normal dialysis schedule is Tuesday, Tuesday, Tuesday - which is being resumed today. A follow-up random vancomycin level has been scheduled to be drawn tomorrow, 04/19/19, with the morning lab draw. We will continue to monitor and order additional supplemental dosing tomorrow pending the result of the random level if needed. [facility] April 21, 2019 07:47
[2019-04-21] MEDS: CALCIUM CARBONATE 500 MG CHEW U/D PO SCH ×3 (08:00→17:12)
[2019-04-21] MEDS: GABAPENTIN 300 MG CAP PO SCH ×2 (09:00→20:30)
[2019-04-21] MEDS: DULoxetine 30 MG CAP (CYMBALTA) PO SCH (09:00)
[2019-04-21] MEDS: CLOPIDOGREL 75 MG TAB PO SCH (09:00)
[2019-04-21] MEDS: LEVEMIR (INSULIN DETEMIR) 1 UNITS/0.01ML SC SCH ×2 (09:00→20:30)
[2019-04-21] MEDS: PANTOPRAZOLE 40MG TAB (PROTONIX) PO SCH (09:00)
[2019-04-21] MEDS: HEPARIN SOD (PORCINE) 5000 UNITS/ML VIAL SC SCH ×2 (09:00→20:30)
[2019-04-21] MEDS: PIPERACILLIN/TAZOBACTAM SOD 2.25 GM in D5W MINI-BAG PLUS 50 ML IV SCH ×2 (09:53→20:29)
[2019-04-21] MEDS ORDERED: LIDOCAINE 1% MDV 20ML VIAL As Ordered ONE (12:41)
[2019-04-21] MEDS ORDERED: BUPIVACAINE HCL 0.5% 10 ML VIAL As Ordered ONE (12:41)
[2019-04-21] MEDS ORDERED: KETAMINE HCL 200 MG/20 ML VIAL As Ordered ONE (12:55)
[2019-04-21] MEDS ORDERED: fentaNYL 100 MCG/2 ML INJECTION (J3010) As Ordered ONE (12:55)
[2019-04-21] MEDS ORDERED: LIDOCAINE 2% INJ 100 MG/5 ML SDV (FOR ANES.) As Ordered ONE (12:55)
[2019-04-21] MEDS ORDERED: PROPOFOL 200 MG/20 ML VIAL As Ordered ONE (12:55)
[2019-04-21] MEDS ORDERED: MIDAZOLAM INJ 2 MG/2 ML VIAL (J2250) As Ordered ONE (12:55)
[2019-04-21] MEDS ORDERED: ONDANSETRON 4MG/2ML VIAL (J2405) As Ordered ONE (12:55)
[2019-04-21] MEDS ORDERED: LIDOCAINE 1% SDV 5 ML VIAL SQ ONE (13:00)
[2019-04-21] MEDS ORDERED: HEPARIN 1,000 UNITS/ML 10ML VIAL (FOR RADIOLOGY& DIALYSIS ONLY) IV ONE (13:00)
[2019-04-21] MEDS: ACETAMINOPHEN TAB 650MG DOSE (2X325MG) PO PRN ×2 (13:45→20:32)
[2019-04-21 14:00] VITALS: BP 162/72
[2019-04-21] MEDS: NORCO, ANEXSIA 5/325MG TABLET (HYDROcodone/ACETAMINOPHEN) PO PRN (15:36)
--- NOTE | 2019-04-21 16:32 | IPNPDOC ---
Text Note Date of Service The patient was seen on 04/21/19. NOTE Nephrology Service: Subjective: Patient seen and examined in physical therapy room at [facility]. Mentating appropriately. 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 Estrella. Vascular Surgery team assistant reports that L BKA stump site is not healing well, and she is going for debridement of the wound today with Dr. Estrella. Is afebrile and hemodynamically stable today. Blood pressures have been stable. She offers no acute complaints. Has paracentesis scheduled for Tuesday with albumin infusion. Denies fevers, chills, chest pain, SOB, n/v/d/c, abdomina l pain. Objective: Vitals: T 97.6 BP: 153/79 RR: 18 P: 73 O2 Saturation: 97% on room air Intake: 920 ml Last Hemodialysis on 04/20: 1800 ml BMs: 4 yesterday General: AAO x 3. Adult female sitting up comfortably in chair in NAD. Speaks very softly. Pleasant and cooperative. Answering questions appropriately. Mentating well. HEENT: Head: normocephalic, atraumatic. Neck: Supple. Respiratory: Clear to auscultation bilaterally with no wheezes, rales, or rhonchi. Cardiovascular: Normal S1S2, regular rate and rhythm, with no murmurs, rubs or gallops. Abdomen: Soft, nontender, distended, ascites increased from prior. Extremities: Dressing on L leg status-post L BKA. L leg dressing appears clean, dry, intact. (+) 2 pitting edema of RLE. Vascular: LUE fistula is present. Musculoskeletal: Moves all 4 extremities. Neurological: Mentating appropriately. No focal neurologic deficits on inspection. Laboratory data: CBC: WBC 9.5, Hgb 10.9, Platelets 167. CMP: Na 138, K 4.1, BUN 29, Cr 3.43, CO2 25, glucose 135, Ca 8.2, AST 52, Alk Phos 507, total protein 6.7, albumin 2.2 Current Inpatient Medications: Zosyn 2.25 gm/dextrose q12h IV Vancomycin 1000 mg IV HD--on hold Ropinirole 1 mg PO QHS Aranesp (Darbepoetin Yordan) 100 mcg HD IV Gabapentin 300 mg PO BID Medication Changes: Plavix 75 mg PO daily held No longer seems to be on veltassa for hyperkalemia No longer on Venofer (Iron) 100 mg IV HD No longer on Metoprolol succinate 25 mg PO BID Assessment/Plan: 1. End-stage renal disease on hemodialysis on Tuesday, Tuesday, Tuesday schedule, presently volume overloaded with recurrent ascites. Last HD was yesterday with 1800 mL removed. Extra ultrafiltration session to be done today with albumin for further control of volume status. Hemodynamically stable. Hypotension of HD improved with d/c of metoprolol. Continue to remove fluid as tolerated by hemodynamics. Continue PO fluid restriction. 2. Hypertension: BPs stable today. Hypotension of hemodialysis is more of the issue and this is presently improved as per description in assessment #1. 3. Recurrent ascites status post paracentesis x4 on this admission: Paracentesis only performed 1-2 times per month in outpatient setting and needs to have albumin transfusion with each paracentesis. Next paracentesis to be on Tuesday with albumin infusion. Plavix on hold. 4. Diastolic congestive heart failure with exacerbation and significant peripheral edema / recurrent ascites. Hypotension of HD complicates our ability to remove fluid. Continue with albumin support in order to tolerate further fluid removal. 5. Anemia secondary to end-stage renal disease, iron deficiency and chronic inflammation: Hemoglobin is stable at 10.9 (L). Continue Aranesp. Has completed Venofer 100 mg HD IV x 10 doses. Continue to monitor CBC. 6. Severe Protein-Calorie Malnutrition: Albumin 2.2 today, which is improved from prior. Encourage dietary protein. Continue with albumin during HD for dialysis tx. Hypoalbuminemia also contributing to peripheral edema. 7. 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 Estrella: L BKA stump is not healing well. Going for wound debridement today. Did not go yesterday. Doing PT/rehab in [facility]. Continues on renally dosed antibiotics managed as per the primary team. She is on vancomycin and zosyn. My preceptor for this patient encounter was Dr. Mic Grullon, and was physically present in the building during the encounter and was fully available. As needed, all aspects of the patient interview, examination, medical decision making process, and medical care plan development were reviewed and approved by the preceptor. Preceptor is aware and concurs with the plan as stated in the body of this note and will attest to such by his/her cosignature. VS,Fishbone, I+O VS, Fishbone, I+O Laboratory Tests 04/21/19 06:39 Red Blood Count 3.75 L, Mean Corpuscular Volume 100.5 H, Mean Corpuscular Hemoglobin 29.1, Mean Corpuscular Hemoglobin Concent 28.9 L, Red Cell Distribu tion Width 19.9 H, Neutrophils (%) (Auto) 66.1 H, Lymphocytes (%) (Auto) 12.0 L, Monocytes (%) (Auto) 13.1 H, Eosinophils (%) (Auto) 3.7 H, Basophils (%) (Auto) 0.5, Neutrophils # (Auto) 6.3, Lymphocytes # (Auto) 1.1 L, Monocytes # (Auto) 1.3 H, Eosinophils # (Auto) 0.4, Basophils # (Auto) 0.1, Calcium Level 8.2 L, Aspartate Amino Transf (AST/SGOT) 52 H, Alanine Aminotransferase (ALT/SGPT) 26, Alkaline Phosphatase 507 H, Total Bilirubin 0.5, Total Protein 6.7, Albumin 2.2 #L Vital Signs Date Time Temp Pulse Resp B/P (MAP) Pulse Ox O2 Delivery O2 Flow Rate FiO2 04/21/19 15:36 17 04/21/19 06:00 97.6 73 153/79 (103) 97 04/20/19 21:00 0.0 I&O- Last 24 Hours up to 6 AM 04/21/19 06:00 Intake Total 920 ml Output Total 1800 ml Balance -880 ml Attending Note Attending Note Pt was seen and examined with resident. I agree with resident with following additions A: ESRD on HD Decompensated diastolic CHF Recurrent Ascites Hypotension Lt BKA stump infection P: Extra UF with Albumin Paracentesis on tuesday Cont MWF HD Albumin with HD to help remove fluid. IV abx dose adequate for ESRD JAZMINEJENISE KIM April 21, 2019 16:32 MADHU REZA MD April 24, 2019 12:33
[2019-04-21] MEDS: EUCERIN 120GM CREAM TOP SCH ×2 (17:00→20:30)
[2019-04-21 20:00] VITALS: BP 156/72
[2019-04-21] MEDS: rOPINIRole 1MG TAB PO SCH (20:30)
[2019-04-21] MEDS: SIMVASTATIN 20 MG TAB PO SCH (20:30)
[2019-04-22] MEDS: NORCO, ANEXSIA 5/325MG TABLET (HYDROcodone/ACETAMINOPHEN) PO PRN ×2 (00:25→09:48)
[2019-04-22] MEDS: LEVOTHYROXINE 125MCG TABLET (0.125MG) PO SCH (05:15)
[2019-04-22] MEDS: ACETAMINOPHEN TAB 650MG DOSE (2X325MG) PO PRN ×2 (05:15→19:49)
[2019-04-22 06:00] VITALS: BP 150/80
[2019-04-22] MEDS: HumaLOG INSULIN (NovoLOG) PER UNIT SC SCH ×4 (08:05→20:37)
[2019-04-22] MEDS: GABAPENTIN 300 MG CAP PO SCH ×2 (08:05→21:10)
[2019-04-22] MEDS: CALCIUM CARBONATE 500 MG CHEW U/D PO SCH ×3 (08:05→17:31)
[2019-04-22] MEDS: PANTOPRAZOLE 40MG TAB (PROTONIX) PO SCH (08:05)
[2019-04-22] MEDS: DULoxetine 30 MG CAP (CYMBALTA) PO SCH (08:05)
[2019-04-22] MEDS: LEVEMIR (INSULIN DETEMIR) 1 UNITS/0.01ML SC SCH ×2 (08:06→21:11)
[2019-04-22] MEDS: HEPARIN SOD (PORCINE) 5000 UNITS/ML VIAL SC SCH ×2 (08:07→21:11)
[2019-04-22] MEDS: CLOPIDOGREL 75 MG TAB PO SCH (08:07)
[2019-04-22] MEDS: EUCERIN 120GM CREAM TOP SCH ×2 (09:27→21:11)
[2019-04-22] MEDS: PIPERACILLIN/TAZOBACTAM SOD 2.25 GM in D5W MINI-BAG PLUS 50 ML IV SCH ×2 (09:27→21:12)
--- NOTE | 2019-04-22 09:34 | IPN ---
DATE OF SERVICE: 04/21/2019 68-year-old female with a past medical history significant for end-stage renal disease on hemodialysis, advanced liver cirrhosis requiring paracentesis, diastolic heart failure , coronary artery disease, hyperparathyroidism, hypothyroidism, diabetes type 2, depression and anxiety who is on the acute rehabilitation unit status-post below the knee amputation. She has gone for a wound debridement. She is currently in the operating room per Dr. Estrella. He is doing wound debridement. LABS: White count is improved to 9.5, hemoglobin 10.9, hematocrit 37.7, platelets 167, electrolytes are normal, BUN 29, creatinine 3.43. Patient is due for dialysis today. She is afebrile. Continues on Levemir for her diabetes as well as sliding scale coverage if needed. She is scheduled for dialysis after the debridement. She also is going to be having another paracentesis on Tuesday. OBJECTIVE: Patient was seen in the evening. She tolerated the debridement well. She had hemodialysis without complication. Blood pressure 150/70, pulse 70, respirations 18, temperature 97.8, Oxygen sat 96% on room air. Patient is alert and oriented in no acute distress. The patient is alert and oriented times three. Pupils are equal and reactive to light. EOM's are intact. Pharynx, tongue and gums are pink and moist. Tongue is midline. Neck is supple without lymphadenopathy and no thyromegaly No goiter jugular venous pressures are elevated at 2-4 at 45 degrees. Chest decreased breath sounds. No wheezes are retraction. Heart is regular. Abdomen is distended and nontender. Bowel sounds are positive. Extremities show edema through the thigh up to the hip. Left below the knee amputation with edema right foot. Toes are wrapped . IMPRESSION AND PLAN: Status-post Charcot foot in the left foot having below the knee amputation. Patient went today for debriding of the stump as well as the debridement of the right toe without complication. Continues on Zosyn. Acute on chronic diastolic heart failure with slow improvement, expect more since dialysis and paracentesis are being done with albumin. She is volume overloaded. She will have dialysis today. She had dialysis today without complication. She is to have a paracentesis Extra ultrafiltration done today with albumin for further improvement of volume status. End-stage liver disease. She is scheduled for a paracentesis on Tuesday with albumin to further help potentiate the fluid and volume overload for improvement. Hypertension with intermittent episodes of hypotension improving. Anti-hypertensives discontinued. End-stage renal disease. Management by nephrology. Hemodialysis management by nephrology. Hyperkalemia. Potassium stable. DVT prophylaxis. Continues on heparin subcu.
[2019-04-22 14:00] VITALS: BP 160/78
--- NOTE | 2019-04-22 14:33 | PHACANCOPD ---
PHARMACY VANCOMYCIN DOSING Pt Demographics Demographics Patient Age:68 , Weight:77.300 , Gender: female Adjusted Body Weight Date: 04/18/19, Adjusted Body Weight: Kg Vancomycin Vancomycin indication: LEFT FOOT ABSCESS Vancomycin Target Ranges: 10-20 mcg/ml Vancomycin Load Y/N: No Load Dose Date Time Vancomycin Load Dose: Date: Time: Vancomycin Dose Date: 04/18/19. Current Vancomycin Dose: [1g IV HD] Intermittent Dosing?: Yes Labs Micro Microbiology 04/21/19 Gram Stain - Final, Resulted 04/21/19 Abscess Culture, Resulted Pending 04/21/19 Anaerobic Culture, Resulted Pending 04/17/19 Gram Stain - Final, Resulted 04/17/19 Wound Culture - Preliminary, Resulted Enterococcus Faecium (Vre) Creatinine Clearance Date:04/18/19. Est Creatinine Clearance: [~11.7ml/min]. Pending Labs Vancomycin random level 04/19/19 @0500, with AM labs Assessment and Plan Maintaining Current Dose?: No Reason for dose change: Other Pharmacist Note Pharmacist Note 04/22/19: Follow-up random vancomycin level this morning resulted at 22.5mcg/ml. The patient was last dialyzed on 04/20 and 04/21, and is not being dialyzed today. Next dialysis session is scheduled for 04/24/19. We will reduce the patient's post-HD dosing from 1g to 750mg to start on 04/24/19. A random level will be drawn with AM labs on 04/24/19 to ensure that this dosing remains appropriate. We will continue to monitor and make further dose adjustments if needed. 04/21/19: Random level this morning resulted at 26.3mcg/ml. The patient was last dialyzed 04/18 and 04/20, and is pending another dialysis session today. We will hold any further vancomycin dosing today and schedule a follow-up random level to be drawn tomorrow with morning labs to ensure the patient remains within therapeutic range. Date: 04/18/19. 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 Vancomycin random level today resulted at 7.9mcg/ml (last level was therapeutic at 20.9mcg/ml). The patient's last hemodialysis sessions were 04/13/19 at 04/17/19. Upon further review it was discovered that the vancomycin was not given after the HD sessions on 04/13 or 04/17 - resulting in today's subtherapeutic random level. The patient is being dialyzed today and her vancomycin regimen has been increased by Dr. Grullon from 750mg IV HD to 1g IV HD - to start after today's HD session. The patient's normal dialysis schedule is Tuesday, Tuesday, Tuesday - which is being resumed today. A follow-up random vancomycin level has been scheduled to be drawn tomorrow, 04/19/19, with the morning lab draw. We will continue to monitor and order additional supplemental dosing tomorrow pending the result of the random level if needed. NAHEED [facility]ARD[facility]O [facility] April 22, 2019 14:33
--- NOTE | 2019-04-22 14:56 | IPNPDOC ---
Text Note Date of Service The patient was seen on 04/22/19. NOTE Subjective: Patient is a 68-year-old female with a PMHx of ESRD on HD (MWF), Advanced liver cirrhosis requiring paracentesis, Diastolic heart failure, CAD, hyperparathyroidism, hypothyroidism, type 2 diabetes, depression and anxiety. She was initially admitted for volume overload and worsening foot infection. She subsequently had a second and third toe amputation and later a below the knee amputation. She has been discharged to acute rehabilitation unit for further evaluation and management for mobilization and strengthening. Today, she states that she feels well. She has no fevers, chills, chest pain, shortness of breath, palpitations, abdominal pain, nausea, or vomiting. She does have some discomfort at the stump on the left with increased drainage, redness and swelling. Patient was seen and examined at the bedside. Currently, patient was sitting up in her wheelchair. She denied chest pain, shortness breath, palpitations. Reported that yesterday she was experiencing increasing leakage from her left leg wound at the site of the amputation. Additional dressing was applied. Patient does report abdominal distention but does not express any abdominal tenderness. She denies constipation or diarrhea. Objective: Vitals (See below) General: Lying in bed, no acute distress, comfortable, AAOx3 HEENT: NC, AT CVS: RRR, +S1S2 Lungs: Fair air entry b/l, no auscultated wheezing / rales / rhonchi Abdomen: distended, remains nontender Extremities: 1+ edema at right leg, - Calf tenderness, left BKA Assessment and plan: Left foot infection s/p Left BKA - Yesterday wound is noted to be oozing/bleeding, additional dressing was applied - Patient is afebrile and hemodynamically stable - Leukocytosis has resolved - Wound culture 04/17: Enterococcus Faecium - s/p Additional debridement with Dr. Estrella on 04/19 - c/w Zosyn and Vancomycin - ID and Vascular surgery on consultation Acute on chronic diastolic heart failure - Patient does not have any complaints of shortness of breath or abdominal pain / discomfort - Physical reveals signs of overload and ascites - c/w HD as schedule End stage liver disease - Patient is a regularly scheduled paracentesis every Tuesday - Last paracentesis patient had approximately 9 L of fluid removed - Patient scheduled for additional paracentesis this coming week; will likely have paracentesis completed on Tuesday, as this is a long weekend - Over 4 paracentesis to be completed Tuesday morning; will order albumin to be infused during or immediately after procedure HTN - Patient's periods his intermittent episodes of hypotension - Will provide the patient with 1 dose of amlodipine today ESRD on HD (MWF) - c/w HD as scheduled - Nephrology consultation s/p Hyperkalemia GI prophylaxis - c/w Protonix DVT prophylaxis - c/w Heparin VS,Fishbone, I+O VS, Fishbone, I+O Vital Signs Date Time Temp Pulse Resp B/P (MAP) Pulse Ox O2 Delivery O2 Flow Rate FiO2 04/22/19 14:00 97.4 75 16 160/78 (105) 98 04/20/19 21:00 0.0 I&O- Last 24 Hours up to 6 AM 04/22/19 06:00 Intake Total 290 ml Output Total 2000 ml Balance -1710 ml JENELLE CARRIZALES MD April 22, 2019 14:56
[2019-04-22] MEDS ORDERED: amLODIPine 5 MG TAB PO ONE (15:00)
[2019-04-22] MEDS: **VANCO AFTER HD** MISC XX SCH (16:00)
[2019-04-22] MEDS ORDERED: VANCOMYCIN HCL 750 MG, VIAL MATE ADAPTER 1 EACH in D5W 250 ML IV SCH (16:00)
[2019-04-22 20:00] VITALS: BP 146/72
[2019-04-22] MEDS: SIMVASTATIN 20 MG TAB PO SCH (21:10)
[2019-04-22] MEDS: METOPROLOL TART 12.5 MG PER 1/2 TAB PO SCH (21:10)
[2019-04-22] MEDS: rOPINIRole 1MG TAB PO SCH (21:10)
[2019-04-23] MEDS: NORCO, ANEXSIA 5/325MG TABLET (HYDROcodone/ACETAMINOPHEN) PO PRN ×2 (00:50→20:52)
--- NOTE | 2019-04-23 01:50 | IPN ---
DATE OF SERVICE: 04/22/2019 SUBJECTIVE: The patient was seen and examined at the bedside today morning. She was sitting in the ruffin chair today. She is afebrile, hemodynamically stable. She was dialyzed yesterday. She tolerated 2 liters of fluid removal yesterday along with albumin. She continues to get physical therapy. OBJECTIVE: VITAL SIGNS: Temperature is 97.4 degrees Fahrenheit, blood pressure 160/78, pulse is 75, respiratory rate of 16, saturating 98% on room air. INTAKE AND OUTPUT: Ultrafiltration done yesterday was 2 liters. Weight in the bed scale is 77.3 kg. PHYSICAL EXAMINATION: GENERAL: The patient is awake, alert, oriented times three sitting up in the ruffin chair in no apparent distress. HEAD AND NECK EXAM: Extraocular muscles intact. Pupils equally round and reactive to light. Mucous membranes are moist. Neck is supple. There is no jugular venous distention (JVD). CARDIOVASCULAR: S1, S2 regular rate, 2+ edema of the right lower extremity. RESPIRATORY: Chest is clear to auscultation bilaterally. Bilateral equal air entry. No rales or rhonchi. ABDOMEN: Soft, obese, positive bowel sounds, positive abdominal wall edema and positive ascites was noted. MUSCULOSKELETAL: The patient has a left below-knee amputation which is covered with a dressing. CENTRAL NERVOUS SYSTEM (GUTTER INSTALLER): No focal deficit. Power is 5/5 in bilateral upper extremities. LABORATORY REVIEW: Complete blood count (CBC) showed a hemoglobin of 10.9 yesterday and basic metabolic panel (BMP) is also from yesterday which was already reviewed. CURRENT INPATIENT MEDICATIONS: The patient's medications were all reviewed by me: - vancomycin - intravenous (IV) vancomycin has been stopped. - Zosyn - She continues to be on IV Zosyn 2.25 grams every 12 hourly - vancomycin dose has been changed to 750 mg IV with hemodialysis now. - amlodipine - I see that the patient has been started on amlodipine. Given her history of lower extremity edema and diastolic congestive heart failure I will rather restart the patient on metoprolol instead of amlodipine. No other change in the medications today as compared with yesterday. ASSESSMENT/PLAN: 1. End-stage renal disease on hemodialysis. The patient's regular dialysis days are Tuesday, Tuesday, Tuesday. She got the extra session of ultrafiltration done yesterday. She will be dialyzed tomorrow morning as per her regular dialysis session. Because of low albumin levels I will give her albumin with dialysis to help with ultrafiltration 2. Hypertension with end-stage renal disease. Because of low blood pressures with dialysis her antihypertensive was stopped. However, she is hypertensive today. I am going to restart low dose of metoprolol. I would avoid giving calcium channel blockers to this patient because of lower extremity edema. 3. Recurrent ascites. The patient has once a week paracentesis. Her next paracentesis will be on Wednesday, April 24, 2019. 4. Chronic diastolic congestive heart failure. The patient's volume status is suboptimal. She is decompensated. She would need [id number] hemodialysis ultrafiltration sessions. Continue the fluid restriction. 5. Left below-knee amputation site infection. The patient is currently getting debridements by vascular surgery. She is on IV Zosyn. The plan is to place a wound vacuum-assisted closure (VAC) this week. SHAAN
[2019-04-23] MEDS: ACETAMINOPHEN TAB 650MG DOSE (2X325MG) PO PRN ×2 (05:28→13:55)
[2019-04-23] MEDS: LEVOTHYROXINE 125MCG TABLET (0.125MG) PO SCH (05:28)
[2019-04-23 06:00] VITALS: BP 155/76
[2019-04-23] MEDS: PANTOPRAZOLE 40MG TAB (PROTONIX) PO SCH (08:31)
[2019-04-23] MEDS: CLOPIDOGREL 75 MG TAB PO SCH (08:31)
[2019-04-23] MEDS: DULoxetine 30 MG CAP (CYMBALTA) PO SCH (08:31)
[2019-04-23] MEDS: CALCIUM CARBONATE 500 MG CHEW U/D PO SCH ×3 (08:31→18:24)
[2019-04-23] MEDS: HumaLOG INSULIN (NovoLOG) PER UNIT SC SCH ×4 (08:31→20:55)
[2019-04-23] MEDS: GABAPENTIN 300 MG CAP PO SCH ×2 (08:31→20:54)
[2019-04-23] MEDS: METOPROLOL TART 12.5 MG PER 1/2 TAB PO SCH ×2 (08:32→20:54)
[2019-04-23] MEDS: HEPARIN SOD (PORCINE) 5000 UNITS/ML VIAL SC SCH ×2 (08:32→20:55)
[2019-04-23] MEDS: EUCERIN 120GM CREAM TOP SCH ×2 (08:33→20:56)
[2019-04-23] MEDS: PIPERACILLIN/TAZOBACTAM SOD 2.25 GM in D5W MINI-BAG PLUS 50 ML IV SCH ×2 (08:33→20:55)
[2019-04-23] MEDS: LEVEMIR (INSULIN DETEMIR) 1 UNITS/0.01ML SC SCH ×2 (08:33→20:55)
[2019-04-23] MEDS ORDERED: amLODIPine 5 MG TAB PO SCH (09:00)
[2019-04-23] MEDS ORDERED: DAKIN'S 0.25% HALF-STRENGTH SOLN 480 ML TOP PRN (10:45)
[2019-04-23] MEDS: LINEZOLID 600MG TABLET (ZYVOX) PO SCH ×2 (11:20→20:54)
[2019-04-23] MEDS ORDERED: LIDOCAINE 1% SDV 5 ML VIAL SQ ONE (11:30)
[2019-04-23] MEDS ORDERED: HEPARIN 1,000 UNITS/ML 10ML VIAL (FOR RADIOLOGY& DIALYSIS ONLY) IV ONE (11:30)
[2019-04-23 13:06] LABS: BASO # 0.1 10^3/uL (0.0-0.2); BASO % 0.8 % (0.0-1.0); EOS # 0.5 10^3/uL (0.0-0.50); EOS % 4.5 % (0.0-3.0); HEMATOCRIT 31.9 % (36.0-47.0); HEMOGLOBIN 9.9 g/dl (12.0-15.5); LYMPH # 1.1 10^3/uL (1.5-4.5); LYMPH % 11.3 % (24.0-44.0); MEAN CORPUSCULAR HEMOGLOBIN 30.4 pg (27.0-33.0); MEAN CORPUSCULAR VOLUME 97.9 fl (80.0-96.0); MONO # 1.2 10^3/uL (0.0-0.8); MONO % 12.5 % (0.0-5.0); NEUTROPHILS # 6.8 10^3/uL (1.8-7.7); NEUTROPHILS % 68.6 % (36.0-66.0); PLATELET COUNT, AUTOMATED 157 10^3/uL (150-450); RED BLOOD COUNT 3.26 10^6/uL (4.00-5.40); WHITE BLOOD COUNT 9.9 10^3/uL (4.0-10.0)
[2019-04-23 13:33] LABS: CALCIUM LEVEL 6.8 MG/DL (8.8-10.2); CREATININE FOR GFR 5.55 MG/DL (0.55-1.30); GLOMERULAR FILTRATION RATE 8.1 (>39); POTASSIUM SERUM 4.5 MEQ/L (3.5-5.1)
[2019-04-23 13:34] LABS: ALBUMIN 2.1 GM/DL (3.2-5.2); PHOSPHORUS LEVEL 5.3 MG/DL (2.5-4.9)
--- NOTE | 2019-04-23 15:12 | IPNPDOC ---
Subjective Date Seen The patient was seen on 04/23/19. Subjective Chief Complaint/HPI Patient is a 68-year-old female, past medical history significant for end-stage renal disease on hemodialysis Tuesday, Tuesday and Tuesday, advanced liver cirrhosis requiring frequent paracentesis every 2 weeks, coronary artery disease, hypothyroidism, diabetes mellitus, peripheral vascular disease, and obesity. Patient was initially admitted for worsening foot infection and had subsequent left foot and lower leg amputation due to infection. She was discharged to rehabilitation unit for further management. Prior to discharge home Events since last encounter Seen in hemodialysis unit. Has no complaints at this time, friend is at bedside visiting. Patient. Denies chest pain, shortness of breath, chills, fever, or any discomfort. We have discussed will further reduce fluid restriction and patient is willing to try. Objective Physical Examination General Exam: Positive: Alert, Cooperative, No Acute Distress Eye Exam: Positive: PERRLA, Sclera icteric ENT Exam: Positive: Atraumatic, Mucous membr. moist/pink Neck Exam: Positive: Supple Chest Exam: Positive: Clear to auscultation, Normal air movement Heart Exam: Positive: Rate Normal, Regular Rhythm Telemetry: Positive: Sinus Abdomen Exam: Positive: Normal bowel sounds, Other (distended with ascites and edema) Extremity Exam: Positive: Edema, Tenderness, Other (Left BKA) Neuro Exam: Positive: Normal Speech Psych Exam: Positive: Mental status NL, Oriented x 3; Negative: Anxiety Assessment /Plan Problems (1) Peripheral arterial disease Problem Text: -With nonhealing infected ulcer -S/P left below the knee amputation -continued on linezolid and zosyn -Rehabilitation by primary team (2) End-stage renal disease needing dialysis Status: Chronic Problem Text: -Hemodialysis therapy Tuesday, Tuesday, Tuesday -Management by nephrology -Albumin infusion with hemodialysis (3) Diastolic congestive heart failure Status: Chronic Problem Text: -Fluid restriction 1200 mL a day given concomitant comorbidities with end-stage renal disease and end-stage liver disease -Monitor tolerance of fluid restriction and also blood pressure -currently lying flat during hemodialysis without any chest pain or dyspnea. (4) Diabetes mellitus type 2, insulin dependent Status: Chronic Problem Text: -Diabetic diet -Fingerstick checks and blood glucose monitoring (5) Liver cirrhosis Problem Text: -End-stage -With recurring ascites requiring paracentesis -Paracentesis planned for tomorrow -Follow specialist recommendations -Hold heparin for paracentesis (6) DVT prophylaxis Problem Text: -Heparin 5000 units every 12 Plan/VTE VTE Prophylaxis Ordered?: Yes VTE Exclusion Pharmacological: Bleeding Risk VS, I&O, 24H, Fishbone Vital Signs/I&O Vital Signs Date Time Temp Pulse Resp B/P (MAP) Pulse Ox O2 Delivery O2 Flow Rate FiO2 04/23/19 08:32 65 152/77 04/23/19 06:00 97.6 17 97 04/20/19 21:00 0.0 I&O- Last 24 Hours up to 6 AM 04/23/19 06:00 Intake Total 860 ml Output Total 0 ml Balance 860 ml Laboratory Data 24H LABS Laboratory Tests 2 04/22/19 17:19: Bedside Glucose (Misc Panel) 207H 04/22/19 19:55: Bedside Glucose (Misc Panel) 242H 04/23/19 06:19: Bedside Glucose (Misc Panel) 253H 04/23/19 11:41: Bedside Glucose (Misc Panel) 148H 04/23/19 12:53: Immature Granulocyte % (Auto) 2.3, White Blood Count 9.9, Red Blood Count 3.26L, Hemoglobin 9.9L, Hematocrit 31.9L, Mean Corpuscular Volume 97.9H, Mean Corpuscular Hemoglobin 30.4, Mean Corpuscular Hemoglobin Concent 31.0L, Red Cell Distribution Width 19.1H, Platelet Count 157, Neutrophils (%) (Auto) 68.6H, Lymphocytes (%) (Auto) 11.3L, Monocytes (%) (Auto) 12.5H, Eosinophils (%) (Auto) 4.5H, Basophils (%) (Auto) 0.8, Neutrophils # (Auto) 6.8, Lymphocytes # (Auto) 1.1L, Monocytes # (Auto) 1.2H, Eosinophils # (Auto) 0.5, Basophils # (Auto) 0.1, Nucleated Red Blood Cells % (auto) 0.0, Blood Urea Nitrogen 59#H, Creatinine 5.55#H, Sodium Level 137, Potassium Level 4.5, Chloride Level 102, Carbon Dioxide Level 22, Anion Gap 13, Glomerular Filtration Rate 8.1L, Calcium Level 6.8#L, Phosphorus Level 5.3H, Albumin 2.1L CBC/BMP Laboratory Tests 04/23/19 12:53 Red Blood Count 3.26 L, Mean Corpuscular Volume 97.9 H, Mean Corpuscular Hemogl obin 30.4, Mean Corpuscular Hemoglobin Concent 31.0 L, Red Cell Distribution Width 19.1 H, Neutrophils (%) (Auto) 68.6 H, Lymphocytes (%) (Auto) 11.3 L, Monocytes (%) (Auto) 12.5 H, Eosinophils (%) (Auto) 4.5 H, Basophils (%) (Auto) 0.8, Neutrophils # (Auto) 6.8, Lymphocytes # (Auto) 1.1 L, Monocytes # (Auto) 1.2 H, Eosinophils # (Auto) 0.5, Basophils # (Auto) 0.1, Anion Gap 13 Microbiology Microbiology 04/21/19 Gram Stain - Final, Resulted 04/21/19 Abscess Culture, Resulted Pending 04/21/19 Anaerobic Culture - Final, Resulted 04/17/19 Gram Stain - Final, Resulted 04/17/19 Wound Culture - Preliminary, Resulted Enterococcus Faecium (Vre) YESSY CAMPOS BONSAI CULTURIST April 23, 2019 15:11
--- NOTE | 2019-04-23 16:49 | IPN ---
DATE: 04/23/2019 SUBJECTIVE: The patient was seen and examined at the bedside today morning in the rehabilitation unit. She is afebrile, hemodynamically stable today. Today is patient's regular day of dialysis. Her blood pressures are high. She was started on metoprolol yesterday. OBJECTIVE: VITAL SIGNS: Temperature is 97.6 degrees Fahrenheit, blood pressure 152/77, pulse is 65, respiratory of 70, saturating 97% on room air. INTAKE AND OUTPUT: There is no urine output recorded. Weight in the bed scale is 73.9 kg. PHYSICAL EXAMINATION: GENERAL: The patient is awake, alert, oriented times three, sitting up in the wheelchair in no apparent distress. HEAD AND NECK EXAM: Extraocular muscles intact. Pupils equally round and reactive to light. Mucous membranes are moist. Neck is supple. There is no jugular venous distention (JVD). CARDIOVASCULAR: S1, S2. Regular rate. 2+ edema of the right lower extremity. RESPIRATORY: Chest is clear to auscultation bilaterally. Bilateral equal air entry. No rales or rhonchi. ABDOMEN: Soft, obese, distended with ascites and abdominal wall edema. MUSCULOSKELETAL: She has a left below-knee amputation which is covered with a dressing. 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 Power is 5/5 in all extremities. ATRIOVENTRICULAR (AV) Access: She has a left forearm AV fistula with positive thrill and bruit. LABORATORY REVIEW: Complete blood count (CBC) showed a WBC 9.9, hemoglobin is 9.9, platelets are 157. Basic metabolic panel (BMP) showed sodium 137, potassium of 4.5, chloride 102, bicarbonate 22, BUN 59, creatinine is 5.5, phosphorus is 5.3. CURRENT INPATIENT MEDICATIONS: The patient's medications were all reviewed by me. She continues to be on intravenous (IV) Zosyn. Amlodipine was stopped yesterday. She has been started on low-dose metoprolol 12.5 mg by mouth twice a day. ASSESSMENT AND PLAN: 1. End-stage renal disease on hemodialysis. Patient's regular dialysis days are Tuesday, Tuesday, Tuesday. She will be dialyzed today. She will be given albumin 25 gram IV and I will try to remove at least 2 liters of fluid as tolerated by her blood pressure. 2. Hypertension with end-stage renal disease. Patient was initially hypotensive. It was difficult to remove fluid. Now her blood pressures are running in 150s and 160s. She has been started restarted on low dose of metoprolol. 3. Recurrent ascites. Patient will get ascitic tap done tomorrow morning. 4. Chronic diastolic congestive heart failure. Volume status is still decompensated. She is chronically noncompliant with fluid restriction. Continue dialysis and fluid removal with albumin 5. Left below-knee amputation site infection. Patient is currently on IV Zosyn. There is a plan to do a wound VAC placement by vascular surgery. SHAAN
[2019-04-23 17:18] VITALS: BP 130/69
[2019-04-23 20:00] VITALS: BP 135/70
[2019-04-23] MEDS: SIMVASTATIN 20 MG TAB PO SCH (20:54)
[2019-04-23] MEDS: rOPINIRole 1MG TAB PO SCH (20:54)
[2019-04-24] MEDS: ACETAMINOPHEN TAB 650MG DOSE (2X325MG) PO PRN ×4 (00:02→19:45)
[2019-04-24] MEDS: NORCO, ANEXSIA 5/325MG TABLET (HYDROcodone/ACETAMINOPHEN) PO PRN ×2 (05:36→10:54)
[2019-04-24] MEDS: LEVOTHYROXINE 125MCG TABLET (0.125MG) PO SCH (05:36)
[2019-04-24 06:00] VITALS: BP 144/78
[2019-04-24] MEDS: CALCIUM CARBONATE 500 MG CHEW U/D PO SCH ×3 (08:02→18:16)
[2019-04-24] MEDS: HumaLOG INSULIN (NovoLOG) PER UNIT SC SCH ×4 (08:03→20:17)
[2019-04-24] MEDS: CLOPIDOGREL 75 MG TAB PO SCH (09:00)
[2019-04-24] MEDS: HEPARIN SOD (PORCINE) 5000 UNITS/ML VIAL SC SCH ×2 (09:00→20:15)
[2019-04-24] MEDS: EUCERIN 120GM CREAM TOP SCH ×2 (09:00→20:17)
[2019-04-24] MEDS: PANTOPRAZOLE 40MG TAB (PROTONIX) PO SCH (09:42)
[2019-04-24] MEDS: PIPERACILLIN/TAZOBACTAM SOD 2.25 GM in D5W MINI-BAG PLUS 50 ML IV SCH ×2 (09:42→20:14)
[2019-04-24] MEDS: DULoxetine 30 MG CAP (CYMBALTA) PO SCH (09:42)
[2019-04-24] MEDS: GABAPENTIN 300 MG CAP PO SCH ×2 (09:42→20:15)
[2019-04-24] MEDS: LINEZOLID 600MG TABLET (ZYVOX) PO SCH ×2 (09:42→20:15)
[2019-04-24] MEDS: METOPROLOL TART 12.5 MG PER 1/2 TAB PO SCH ×2 (09:43→20:14)
[2019-04-24] MEDS: LEVEMIR (INSULIN DETEMIR) 1 UNITS/0.01ML SC SCH ×2 (09:43→20:16)
--- NOTE | 2019-04-24 10:38 | IPNPDOC ---
Date Seen The patient was seen on 04/24/19. 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 Denies any fevers, chills, weakness, fatigue, Headache, Chest Pain, Shortness of breath, cough, palpitations, abdominal pain, N/V/D or changes in bowel or bladder habits. Medical History HFpEF, grade II diastolic dysfxn, moderate LVH, mild pulm art HTN 09/14 echo Cirrhosis with hx metabolic encephalopathy, undergoes paracentesis every 2 weeks, S/P paracentesis 04/16/19. 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 Left arm AV fistula. Appendectomy. Hysterectomy. Bilateral cataracts. PE: GEN: 68 yo F, appears stated age. No acute distress. Alert. HEENT: Normocephalic, atraumatic. No facial asymmetry. Moist mucous membranes. CHEST: Regular rate and rhythm, +S1, +S2 LUNGS: Clear to auscultation bilaterally. No wheezes, rales, or rhonchi. ABD: Round, distended, nontender. +Bowel sounds throughout. EXT: S/P BKA LLE dressing is removed, wound is noted with yellow, necrotic tissue. Small area of granulation tissue noted centrally. NEURO: Alert and oriented x 3. Cranial nerves III-XII are intact. No focal deficits appreciated. 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 Patient is afebrile. WBC 9.9 Dr Fontanez following, currently IV Zosyn, Zyvox. WC 04/21/19 pending. Continue current wound care with wet to dry dressing using Dakin Heena Q8hr. Discussed with Dr Estrella appearance of wound this AM, plan for wound debridement and wound vac placement in OR 04/25/19 after HD. Plan to d/c home with wound vac. DVT ppx: heparin sc VS, I&O, 24H, Fishbone Vital Signs/I&O Vital Signs Date Time Temp Pulse Resp B/P (MAP) Pulse Ox O2 Delivery O2 Flow Rate FiO2 04/24/19 09:43 63 144/78 04/24/19 06:06 16 04/24/19 06:00 97.8 100 04/20/19 21:00 0.0 I&O- Last 24 Hours up to 6 AM 04/24/19 06:00 Intake Total 480 ml Output Total 2500 ml Balance -2020 ml Laboratory Data 24H LABS Laboratory Tests 2 04/23/19 11:41: Bedside Glucose (Misc Panel) 148H 04/23/19 12:53: Immature Granulocyte % (Auto) 2.3, White Blood Count 9.9, Red Blood Count 3.26L, Hemoglobin 9.9L, Hematocrit 31.9L, Mean Corpuscular Volume 97.9H, Mean Corpuscular Hemoglobin 30.4, Mean Corpuscular Hemoglobin Concent 31.0L, Red Cell Distribution Width 19.1H, Platelet Count 157, Neutrophils (%) (Auto) 68.6H, Lymphocytes (%) (Auto) 11.3L, Monocytes (%) (Auto) 12.5H, Eosinophils (%) (Auto) 4.5H, Basophils (%) (Auto) 0.8, Neutrophils # (Auto) 6.8, Lymphocytes # (Auto) 1.1L, Monocytes # (Auto) 1.2H, Eosinophils # (Auto) 0.5, Basophils # (Auto) 0.1, Nucleated Red Blood Cells % (auto) 0.0, Blood Urea Nitrogen 59#H, Creatinine 5.55#H, Sodium Level 137, Potassium Level 4.5, Chloride Level 102, Carbon Dioxide Level 22, Anion Gap 13, Glomerular Filtration Rate 8.1L, Calcium Level 6.8#L, Phosphorus Level 5.3H, Albumin 2.1L 04/23/19 16:49: Bedside Glucose (Misc Panel) 118H 04/23/19 20:32: Bedside Glucose (Misc Panel) 224H 04/24/19 06:36: Bedside Glucose (Misc Panel) 179H CBC/BMP Laboratory Tests 04/23/19 12:53 Red Blood Count 3.26 L, Mean Corpuscular Volume 97.9 H, Mean Corpuscular Hemoglobin 30.4, Mean Corpuscular Hemoglobin Concent 31.0 L, Red Cell Distribution Width 19.1 H, Neutrophils (%) (Auto) 68.6 H, Lymphocytes (%) (Auto) 11.3 L, Monocytes (%) (Auto) 12.5 H, Eosinophils (%) (Auto) 4.5 H, Basophils (%) (Auto) 0.8, Neutrophils # (Auto) 6.8, Lymphocytes # (Auto) 1.1 L, Monocytes # (Auto) 1.2 H, Eosinophils # (Auto) 0.5, Basophils # (Auto) 0.1, Anion Gap 13 Microbiology Microbiology 04/21/19 Gram Stain - Final, Resulted 04/21/19 Abscess Culture, Resulted Pending 04/21/19 Anaerobic Culture - Final, Resulted 04/17/19 Gram Stain - Final, Resulted 04/17/19 Wound Culture - Preliminary, Resulted Enterococcus Faecium (Vre) Trini Vieira April 24, 2019 10:38
--- NOTE | 2019-04-24 11:46 | IPN ---
DATE OF SERVICE: 04/24/2019 SUBJECTIVE: Patient was seen and examined at the bedside today morning. She was getting ready to go for her paracentesis when I saw her. She was dialyzed yesterday. She tolerated the hemodialysis procedure well. Albumin was given and 2.5 liters of fluid was removed. She denies any active complaints at this point. OBJECTIVE: Vital signs: Temperature is 97.8 degrees Fahrenheit. Blood pressure 144/78. Pulse is 63, respiratory of 16, saturating 100% on room air. Intake and output: Ultrafiltration with hemodialysis was 2.5 liters. Weight in the bed scale is 80.9 mL, which is not reliable because there is almost a 7 kg difference from yesterday. PHYSICAL EXAMINATION: General: Patient is awake, alert, oriented times three, laying in bed. No apparent distress. Head and neck exam: Extraocular muscles intact. Pupils equally round and reactive to light. Mucous membranes are moist. Neck is supple. There is no jugular venous distention (JVD). Cardiovascular: S1, S2, regular rate. 1+ edema of the right lower extremity. Respiratory: Chest is clear to auscultation bilaterally. Bilateral equal air entry. No rales or rhonchi. Abdomen is obese, distended with tense ascites and abdominal wall edema. Musculoskeletal: She has left below-knee amputation, which is covered with a dressing. 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 Power is 5/5 in all extremities. Arteriovenous (AV) access left forearm AV fistula with positive thrill and bruit. LAB REVIEW: Complete blood count (CBC) showed a WBC of 9.9 and hemoglobin 9.9 from yesterday, and basic metabolic panel (BMP) is also from yesterday. It was already reviewed. CURRENT INPATIENT MEDICATIONS: Patient's medications were all reviewed by me. She continues to be on intravenous (IV) Zosyn. There is no change in the medications today as compared with yesterday. ASSESSMENT AND PLAN: 1. End-stage renal disease on hemodialysis. Patient's regular dialysis days are Tuesday, Tuesday, Tuesday. She was dialyzed yesterday. Next hemodialysis will be tomorrow morning with albumin to help with the fluid removal. 2. Hypertension with end-stage renal disease. Patient's antihypertensives were initially removed because of low blood pressures. Now her blood pressures are better. She is currently on low dose of metoprolol. 3. Recurrent ascites. Patient will get an ascites tap done today. 4. Chronic diastolic congestive heart failure. Volume status is still decompensated. If needed after the ascitic tap, she will get an extra session of fluid removal during this week. 5. Left below-knee amputation site infection. Patient is currently on IV Zosyn and oral zyvox. Placement of wound vacuum-assisted closure (VAC) is as per surgical service. SHAAN
[2019-04-24 14:00] VITALS: BP 174/72
--- NOTE | 2019-04-24 15:36 | IPNPDOC ---
Subjective Date Seen The patient was seen on 04/24/19. Subjective Chief Complaint/HPI Patient is a 68-year-old female, past medical history significant for end-stage renal disease on hemodialysis Tuesday, Tuesday and Tuesday, advanced liver cirrhosis requiring frequent paracentesis every 2 weeks, coronary artery dis ease, hypothyroidism, diabetes mellitus, peripheral vascular disease, and obesity. Patient was initially admitted for worsening foot infection and had subsequent left foot and lower leg amputation due to infection. She was discharged to rehabilitation unit for further management. Prior to discharge home Events since last encounter Complained of significant severe pain to left BKA at time of assessment. Objective Physical Examination General Exam: Positive: Alert, Cooperative, No Acute Distress Eye Exam: Positive: PERRLA, Sclera icteric ENT Exam: Positive: Atraumatic, Mucous membr. moist/pink Neck Exam: Positive: Supple Chest Exam: Positive: Clear to auscultation, Normal air movement Heart Exam: Positive: Rate Normal, Regular Rhythm Telemetry: Positive: Sinus Abdomen Exam: Positive: Normal bowel sounds, Other (distended with ascites and edema) Extremity Exam: Positive: Tenderness, Other (Left BKA); Negative: Edema Neuro Exam: Positive: Normal Speech Psych Exam: Positive: Mental status NL, Oriented x 3; Negative: Anxiety Assessment /Plan Problems (1) Peripheral arterial disease Problem Text: -S/P left below the knee amputation -continued on linezolid and zosyn -Followed by vascular surgery -Rehabilitation by primary team (2) End-stage renal disease needing dialysis Status: Chronic Problem Text: -Patient had hemodialysis session yesterday, tolerated well -Management by nephrology (3) Diastolic congestive heart failure Status: Chronic Problem Text: -Fluid restriction reduced to 1200 mL a day , given concomitant comorbidities with end-stage renal disease and end-stage liver disease -continue to monitor tolerance of fluid restriction,blood pressure -had paracentesis with drainage today. (4) Diabetes mellitus type 2, insulin dependent Status: Chronic Problem Text: -Diabetic diet -Fingerstick checks and blood glucose monitoring (5) Liver cirrhosis Problem Text: -paracentesis today -8L fluid removal today (6) DVT prophylaxis Problem Text: -Heparin 5000 units every 12 Plan/VTE VTE Prophylaxis Ordered?: Yes VTE Exclusion Pharmacological: Bleeding Risk VS, I&O, 24H, Fishbone Vital Signs/I&O Vital Signs Date Time Temp Pulse Resp B/P (MAP) Pulse Ox O2 Delivery O2 Flow Rate FiO2 04/24/19 10:54 18 04/24/19 09:43 63 144/78 04/24/19 06:00 97.8 100 04/20/19 21:00 0.0 I&O- Last 24 Hours up to 6 AM 04/24/19 06:00 Intake Total 480 ml Output Total 2500 ml Balance -2020 ml Laboratory Data 24H LABS Laboratory Tests 2 04/23/19 16:49: Bedside Glucose (Misc Panel) 118H 04/23/19 20:32: Bedside Glucose (Misc Panel) 224H 04/24/19 06:36: Bedside Glucose (Misc Panel) 179H 04/24/19 12:18: Bedside Glucose (Misc Panel) 276H Microbiology Microbiology 04/21/19 Gram Stain - Final, Resulted 04/21/19 Abscess Culture, Resulted Pending 04/21/19 Anaerobic Culture - Final, Resulted 04/17/19 Gram Stain - Final, Resulted 04/17/19 Wound Culture - Preliminary, Resulted Enterococcus Faecium (Vre) YESSY CAMPOS [employer] April 24, 2019 15:36
--- NOTE | 2019-04-24 16:20 | REP ---
Ultrasound-guided paracentesis The procedure was performed under the direct supervision of Dr. Rivas. The risks and benefits of the procedure were explained to the patient and informed consent was obtained. The largest pocket of fluid was localized in the left flank in using ultrasound guidance. The skin was prepped and draped in a sterile fashion. 1% lidocaine was used as a local anesthetic. An 8-Irish multi side-hole catheter was inserted using trocar technique. 8250 ml of yellow fluid was withdrawn and discarded. The patient tolerated the procedure well and there were no immediate complications. After the appropriate amount of monitored convalescence the patient was discharged from the department. Reviewed by ANTONIO Curiel 04/24/2019 03:59 P Electronically Signed by Aureliano Rivas MD 04/24/2019 04:11 P
--- NOTE | 2019-04-24 18:05 | IPNPDOC ---
PM&R Progress Note DATE OF SERVICE: April 24, 2019 Solution Mixer Progress Note Subjective: Patient reports the antiseptic rinse for her left wound is unbearable and that she needs the Bayard for relief which was ordered during her recent debridement 04/21/19. She had paracentesis today and is scheduled for repeat debridement with wound vac placement tomorrow. REVIEW OF SYSTEMS: The following is a completed review of systems and has been reviewed. Review of systems otherwise unremarkable. PAIN: Patient self reports no pain at rest EYES: Negative for recent vision loss EARS, NOSE, & THROAT: denies dysphagia, rhinorrhea, hearing loss CARDIOVASCULAR: denies chest pain, +exertional dyspnea PULMONARY: Negative. Denies shortness of breath except on exertion GASTROINTESTINAL: + ascites (improving) GENITOURINARY: Negative for dysuria MUSCULOSKELETAL: +arthritis, right foot toe amputations, left BKA NEUROLOGICAL: peripheral neuropathy HEMATOLOGICAL: +anemic SKIN: right D1 ischemic ulcer, left BKA incision with blisters, eschar patch just beneath incision line PSYCHIATRIC:+anxious All other review of systems found to be negative. PHYSICAL EXAMINATION: VITAL SIGNS: Please see below. GENERAL: Pleasant and cooperative. No acute distress. smiling HEENT: PERRL. Extraocular movements intact. Clear conjunctiva CARDIOVASCULAR: Regular rate and rhythm. No murmurs, rubs, or gallops LUNGS: Clear to auscultation bilaterally. No wheezes. No rhonchi ABDOMEN: Soft, very distended, however minimal pain with palpation, no guarding, Positive bowel sounds. NEUROLOGICAL: Alert and oriented times three. Cranial nerves II through XII grossly intact. Sensation grossly intact in UE, diminished in bilat LE EXTREMITIES: 5-\\5 strength bilateral upper extremities. 5-\\5 strength right lower extremity. 5-/5 strength in left hip flexion knee extension and knee flexion SKIN: left forearm AVF, right calf edematous with erythema (negative Homans) left BKA residual distal limb stage 3 wound with exposed tendon, slough, and some granulation tissue left D1 lateral toe ulcer c/d/i ASSESSMENT:-year-old 68 with past medical history of ESRD on HD and PVD who presents status post left BKA PLAN: 1. Rehab: OT/PT, assess for DME needs, improving squat pivots and nearly independent from a wheelchair level 2. Vascular- s/p left BKA on 04/06/[address] Estrella, was on IV Zosyn and Vanco c/u management per pharmacy- BKA wound discussed case with vascular s/p debridement 04/21/19, to OR again tomorrow for debridement and wound vac, -ID consulted to follow along, wound cx + strep Uberis, recs appreciated 3. Skin: left BKA s/p debridement and left D1 ulcer debridement, c/u dressing changes per vascular recs 4. CArdiac: pmh CAD s/p 4 stents, medicine consulted, c/u meds, episode of chest pain resolved -c/u Plavix -pmh diastolic CHF- on dialysis with renal monitoring fluid balance- fluid restrict to 1200cc/day 5. Resp: requiring supplemental oxygen due to poor ventilation in setting of ascites, encourage incentive spirometry and monitor for infection 6. Renal: ESRD on HD M/W/F- renal consulted, recs appreciated 7. GI: pmh cirrhosis with ascites, was getting paracentesis q2 weeks prior to hospitalization, concern for recent bleeding on last procedure 04/24/19- -protonix and TUMS for dyspepsia and ppx, Imodium for loose stools 8. DVT ppx: heparin 9. Pain: patient had altered mental status and low arousal s/p Narcan 04/15/19, c/u tylenol and gabapentin, AVOID adding any opioids as patient as fluctuating levels of arousal throughout the day and needs to be optimized for therapy 10. PScyh: pmh anxiety/depression, c/u home meds 11. Dispo: 04/25/19 to inpatient for debridement and wound vac tomorrow Allergies Coded Allergies: pregabalin (Verified Adverse Reaction, Intermediate, "feeling weird", SI thoughts., 03/06/19) Vital Signs Vital Signs Date Time Temp Pulse Resp B/P (MAP) Pulse Ox O2 Delivery O2 Flow Rate FiO2 04/24/19 14:00 97.5 72 18 174/72 (106) 98 04/20/19 21:00 0.0 Laboratory Data Labs 24H Laboratory Tests 2 04/23/19 20:32: Bedside Glucose (Misc Panel) 224H 04/24/19 06:36: Bedside Glucose (Misc Panel) 179H 04/24/19 12:18: Bedside Glucose (Misc Panel) 276H 04/24/19 16:36: Bedside Glucose (Misc Panel) 243H Microbiology Microbiology 04/21/19 Gram Stain - Final, Resulted 04/21/19 Abscess Culture, Resulted Pending 04/21/19 Anaerobic Culture - Final, Resulted 04/17/19 Gram Stain - Final, Resulted 04/17/19 Wound Culture - Preliminary, Resulted Enterococcus Faecium (Vre) Current Medications Current Medications Current Medications Acetaminophen (Tylenol Tab) 650 mg Q4HP PRN PO MILD PAIN (PS 1-4) Last administered on 04/24/19at 15:05; Start 04/12/19 at 12:15 Acetaminophen/ Hydrocodone Bitart ([place], Anexsia 5/325) 1 tab Q4HP PRN PO MILD/MODERATE PAIN (PS 1-7) Last administered on 04/24/19at 10:54; Start 04/21/19 at 13:45 Al Hydrox/Mg Hydrox/Simethicone (Mylanta) 30 ml Q4HP PRN PO DYSPEPSIA; Start 04/12/19 at 12:15 Amlodipine Besylate (Norvasc) 5 mg DAILY PO ; Start 04/23/19 at 09:00; Stop 04/23/19 at 09:00; Status DC Calcium Carbonate (Tums) 1,000 mg WM PO Last administered on 04/24/19at 12:47; Start 04/12/19 at 12:30 Clopidogrel Bisulfate (PLAVix) 75 mg DAILY PO ; Start 04/13/19 at 09:00; Stop 04/13/19 at 09:00; Status DC Clopidogrel Bisulfate (PLAVix) 75 mg DAILY PO Last administered on 04/23/19at 08:31; Start 04/17/19 at 09:00 Darbepoetin Yordan (Aranesp (Dialysis Use)) 100 mcg HD IV ; Start 04/13/19 at 08:30 Dextrose (Dextrose 50%) 25 ml ASDIRECTED PRN IV SEE LABEL COMMENTS; Start 04/12/19 at 12:15 Docusate Sodium (Colace) 100 mg BID PO Last administered on 04/19/19at 09:23; Start 04/12/19 at 21:00; Stop 04/19/19 at 18:17; Status DC Duloxetine HCl (Cymbalta) 30 mg DAILY PO Last administered on 04/24/19at 09:42; Start 04/13/19 at 09:00 Gabapentin (Neurontin) 300 mg BID PO Last administered on 04/24/19 09:42; Start 04/12/19 at 21:00 Glucagon (Glucagon) 1 mg ASDIRECTED PRN SC SEE LABEL COMMENTS; Start 04/12/19 at 12:15 Glucose (Glucose) 16 GM ASDIRECTED PRN PO SEE LABEL COMMENTS; Start 04/12/19 at 12:15 Heparin Sodium (Porcine) (Heparin) 5,000 units Q12H SC Last administered on 04/23/19 20:55; Start 04/12/19 at 21:00 Insulin Detemir (Levemir Insulin) 10 units DAILY SC Last administered on 04/24/19 09:43; Start 04/13/19 at 09:00 Insulin Detemir (Levemir Insulin) 10 units QHS SC Last administered on 04/23/19 20:55; Start 04/12/19 at 21:00 Insulin Human Lispro (HumaLOG INSULIN) SEE PROTOCOL TABLE AC SC Last administe red on 04/24/19at 12:48; Start 04/12/19 at 17:30 Insulin Human Lispro (HumaLOG INSULIN) SEE PROTOCOL TABLE QHS SC ; Start 9 at 21:00 Iron (Venofer) 100 mg HD IV ; Start 04/13/19 at 16:15; Stop 04/18/19 at 23:59; Status DC Levothyroxine Sodium (Synthroid) 125 mcg DAILY@06 PO Last administered on 04/24/19at 05:36; Start 04/13/19 at 06:00 Linezolid (Zyvox) 600 mg BID PO Last administered on 04/24/19 09:42; Start 04/23/19 at 09:00 Metoprolol Succinate (TopROL XL) 25 mg BID PO Last administered on 04/17/19at 21:46; Start 04/12/19 at 21:00; Stop 04/18/19 at 09:05; Status DC Metoprolol Tartrate (Lopressor) 12.5 mg BID PO Last administered on 04/24/19 09:43; Start 04/22/19 at 21:00 Mineral Oil/White Petrolatum (Eucerin) TO RLE BID TOP Last administered on 04/23/19at 08:33; Start 04/12/19 at 21:00 Miscellaneous (Unresolved Clarification Entry) SEE LABEL COMMENTS DAILY XX ; Start 04/19/19 at 09:00; Stop 04/19/19 at 14:55; Status DC Morphine Sulfate (Morphine Sulfate Inj) 4 mg Q4HP PRN IV SEVERE PAIN (PS 8-10); Start 04/12/19 at 16:00; Stop 04/13/19 at 10:52; Status DC Naloxone HCl (Narcan) 0.2 mg STAT STAT IV Last administered on 04/15/19at 15:38; Start 04/15/19 at 15:30; Stop 04/15/19 at 15:31; Status DC Non-Formulary Medication ( See Comment Field Below ) CHECK TO SEE IF THE PATIENT... DAILY@1600 XX Last administered on 04/20/19at 16:26; Start 04/12/19 at 16:00; Stop 04/23/19 at 11:01; Status DC Ondansetron HCl (Zofran) 4 mg Q6HP PRN PO NAUSEA; Start 04/12/19 at 12:15 Oxycodone HCl (OxyCONTIN) 10 mg BID PO Last administered on 04/15/19at 08:41; Start 04/12/19 at 21:00; Stop 04/15/19 at 18:30; Status DC Pantoprazole Sodium (Protonix) 40 mg DAILY PO Last administered on 04/24/19at 09:42; Start 04/13/19 at 09:00 Patiromer (Veltassa) 8.4 gm ASDIRECTED PRN PO SEE INSTRUCTIONS; Start 04/12/19 at 12:15; Status Cancel Piperacillin Sod/ Tazobactam Sod 2.25 gm/Dextrose 50 ml @ 100 mls/hr Q12H IV ; Start 04/17/19 at 14:00; Stop 04/17/19 at 21:05; Status DC Piperacillin Sod/ Tazobactam Sod 2.25 gm/Dextrose 50 ml @ 100 mls/hr Q12H IV Last administered on 04/24/19at 09:42; Start 04/17/19 at 21:00 Ropinirole HCl (Requip) 1 mg QHS PO Last administered on 04/23/19at 20:54; Start 04/12/19 at 21:00 Senna (Senokot) 1 tab QHS PO Last administered on 04/12/19at 21:39; Start 04/12/19 at 21:00; Stop 04/19/19 at 18:17; Status DC Simvastatin (Zocor) 20 mg QHS PO Last administered on 04/23/19at 20:54; Start 04/12/19 at 21:00 Sodium Hypochlorite (Dakin'S Solution) APPLY TOPICALLY TO WO... WDC PRN TOP EACH DRESSING CHANGE; Start 04/23/19 at 10:45 Trazodone HCl (Desyrel) 50 mg QPM PRN PO INSOMNIA; Start 04/12/19 at 16:00 Vancomycin HCl 750 mg/IV Miscellaneous Supplies 15 ml @ 15 mls/hr ASDIRECTED IV ; Start 04/12/19 at 12:15; Stop 04/12/19 at 13:03; Status DC Vancomycin HCl 750 mg/IV Miscellaneous Supplies 1 each/ Dextrose 275 ml @ 275 mls/hr HD IV ; Start 04/12/19 at 13:15; Stop 04/18/19 at 10:58; Status DC Vancomycin HCl 750 mg/IV Miscellaneous Supplies 1 each/ Dextrose 275 ml @ 275 mls/hr HD IV ; Start 04/22/19 at 16:00; Stop 04/23/19 at 09:20; Status DC Vancomycin HCl 1000 mg/IV Miscellaneous Supplies 1 each/ Dextrose 270 ml @ 270 mls/hr HD IV Last administered on 04/20/19at 16:17; Start 04/18/19 at 16:00; Stop 04/22/19 at 07:12; Status DC Vancomycin HCl 1000 mg/IV Miscellaneous Supplies 1 each/ Dextrose 283.3333 ml @ 275 mls/hr HD IV ; Start 04/18/19 at 16:00; Stop 04/18/19 at 16:00; Status DC WALTER ABRRERA MD April 24, 2019 18:05
[2019-04-24] MEDS: LOPERAMIDE 2 MG CAP PO PRN ×2 (18:16→20:15)
[2019-04-24 20:00] VITALS: BP 156/70
[2019-04-24] MEDS: rOPINIRole 1MG TAB PO SCH (20:15)
[2019-04-24] MEDS: SIMVASTATIN 20 MG TAB PO SCH (20:15)
[2019-04-25] MEDS: LOPERAMIDE 2 MG CAP PO PRN ×2 (00:23→03:05)
[2019-04-25] MEDS: ACETAMINOPHEN TAB 650MG DOSE (2X325MG) PO PRN ×3 (00:23→21:26)
[2019-04-25] MEDS: LEVOTHYROXINE 125MCG TABLET (0.125MG) PO SCH (06:46)
[2019-04-25 06:48] VITALS: BP 146/72
[2019-04-25] MEDS: HumaLOG INSULIN (NovoLOG) PER UNIT SC SCH ×4 (07:30→21:00)
[2019-04-25] MEDS: PANTOPRAZOLE 40MG TAB (PROTONIX) PO SCH (07:54)
[2019-04-25] MEDS: CALCIUM CARBONATE 500 MG CHEW U/D PO SCH ×3 (07:56→18:00)
[2019-04-25] MEDS: CLOPIDOGREL 75 MG TAB PO SCH (07:56)
[2019-04-25] MEDS: METOPROLOL TART 12.5 MG PER 1/2 TAB PO SCH ×2 (07:56→21:27)
[2019-04-25] MEDS: HEPARIN SOD (PORCINE) 5000 UNITS/ML VIAL SC SCH ×3 (07:56→21:24)
[2019-04-25] MEDS: GABAPENTIN 300 MG CAP PO SCH ×2 (07:57→21:26)
[2019-04-25] MEDS: DULoxetine 30 MG CAP (CYMBALTA) PO SCH (07:57)
[2019-04-25] MEDS: LINEZOLID 600MG TABLET (ZYVOX) PO SCH ×2 (07:57→21:26)
[2019-04-25] MEDS: EUCERIN 120GM CREAM TOP SCH ×2 (07:58→21:26)
[2019-04-25] MEDS: LEVEMIR (INSULIN DETEMIR) 1 UNITS/0.01ML SC SCH ×2 (07:58→21:25)
[2019-04-25 08:36] LABS: HEMATOCRIT 31.1 % (36.0-47.0); HEMOGLOBIN 9.8 g/dl (12.0-15.5); MEAN CORPUSCULAR HEMOGLOBIN 30.2 pg (27.0-33.0); MEAN CORPUSCULAR HGB CONC 31.5 g/dl (32.0-36.5); PLATELET COUNT, AUTOMATED 168 10^3/uL (150-450); RED BLOOD COUNT 3.24 10^6/uL (4.00-5.40); WHITE BLOOD COUNT 10.4 10^3/uL (4.0-10.0)
[2019-04-25] MEDS: PIPERACILLIN/TAZOBACTAM SOD 2.25 GM in D5W MINI-BAG PLUS 50 ML IV SCH ×2 (08:43→21:26)
[2019-04-25 08:57] LABS: ALBUMIN 2.1 GM/DL (3.2-5.2); CALCIUM LEVEL 7.3 MG/DL (8.8-10.2); CREATININE FOR GFR 4.92 MG/DL (0.55-1.30); GLOMERULAR FILTRATION RATE 9.3 (>39); POTASSIUM SERUM 4.4 MEQ/L (3.5-5.1)
[2019-04-25] MEDS ORDERED: ACETAMINOPH W/CODEINE #3 TAB UD PO ONE (09:00)
[2019-04-25] MEDS ORDERED: INSUDET SC ×2 (10:05)
[2019-04-25] MEDS ORDERED: HYDR1CRE95 TOP (10:05)
[2019-04-25] MEDS ORDERED: LEVO125T4 PO (10:05)
[2019-04-25] MEDS ORDERED: CALC200T15 PO (10:05)
[2019-04-25] MEDS ORDERED: SIMV20TA2 PO (10:05)
[2019-04-25] MEDS ORDERED: DAKINSHS TOP (10:05)
[2019-04-25] MEDS ORDERED: ROPI1TAB PO (10:05)
[2019-04-25] MEDS ORDERED: DARB100SYR IV (10:05)
[2019-04-25] MEDS ORDERED: TRAZ1TAB10 PO (10:05)
[2019-04-25] MEDS ORDERED: HEPA500011 SC (10:05)
[2019-04-25] MEDS ORDERED: LINE600T11 PO (10:05)
[2019-04-25] MEDS ORDERED: METO1TAB87 PO (10:05)
[2019-04-25] MEDS ORDERED: PANT40TA3 PO (10:05)
[2019-04-25] MEDS ORDERED: CLOP75TA2 PO (10:05)
[2019-04-25] MEDS ORDERED: CYMB1CAP5 PO (10:05)
[2019-04-25] MEDS ORDERED: LOPE2CA PO (10:05)
[2019-04-25] MEDS ORDERED: GABA-843 PO (10:05)
[2019-04-25] MEDS ORDERED: INSUHUMDS SC ×2 (10:05)
[2019-04-25] MEDS ORDERED: DEXTROSE 50% 50 ML SYRINGE IV ONE (14:00)
--- NOTE | 2019-04-25 14:37 | IPN ---
DATE: 04/25/2019 SUBJECTIVE: The patient was seen and examined at the bedside this morning during hemodialysis procedure. She is tolerating the hemodialysis procedure. Her blood pressures were low so she needed albumin infusion with hemodialysis. She got the paracentesis done yesterday and 8.2 liters of fluid was removed. The patient is going to the operating room today for debridement and wound vac placement of left below-knee amputation site infection. OBJECTIVE: Vital signs: Temperature is 96.8 degrees Fahrenheit, blood pressure 164/78, pulse is 66, respiratory rate of 18, saturating 95% on room air. Intake and output: There is no urine output recorded. Paracentesis done yesterday and 8250 mL removed. Weight on the bed scale is not available. PHYSICAL EXAMINATION: General: The patient is awake, alert, oriented times three, laying in bed getting hemodialysis done. Head and neck exam: Extraocular muscles intact. Pupils equally round and reactive to light. Mucous membranes are moist. Neck is supple. There is no jugular venous distention (JVD). Cardiovascular: S1, S2. Regular rate. 1+ edema of the right lower extremity. Respiratory: Chest is clear to auscultation bilaterally. Bilateral equal air entry. No rales or rhonchi. Abdomen is obese, mild abdominal wall edema. Ascites are significantly better after the tap done yesterday. Musculoskeletal: She has left below-knee amputation covered with a dressing. CENTRAL NERVOUS SYSTEM (RESEARCH ASSISTANT MEMBER): No focal deficit. Power is 5/5 in all extremities. AV access: Left forearm AV fistula is being used for dialysis at this point. LABORATORY REVIEW: CBC showed WBC of 10.4, hemoglobin 9.8, platelets of 168. BMP showed sodium 138, potassium 4.4, chloride 102, bicarbonate 24, BUN 61, creatinine is 4.9, albumin is 2.1. Microbiology: Repeat cultures from the left leg are again growing Enterococcus faecium, which is resistant to vancomycin. IMAGING STUDIES: Ultrasound guided paracentesis was done yesterday 8.2 liters of fluid was removed. CURRENT INPATIENT MEDICATIONS: The patient's medications were all reviewed by me. She is getting albumin with dialysis. She is also on Zosyn and Zyvox. No other change in the medications today as compared with yesterday. ASSESSMENT/PLAN: 1. End-stage renal disease on hemodialysis. The patient is being dialyzed today according to her regular Tuesday, Tuesday, Tuesday schedule. I will try to remove at least 1.5 to 2 liters of fluid as tolerated by blood pressure. 2. Hypertension with end-stage renal disease. The patient's blood pressure drops with dialysis and with paracentesis. She is requiring very low dose of metoprolol. Avoid aggressive lowering of the blood pressure. 3. Recurrent ascites. The patient is getting an ascitic tap once a week. She got the tap done yesterday and 8.2 liters of fluid was removed. 4. Chronic diastolic congestive heart failure. The patient's volume status is difficult to optimize. She chronically has low blood pressure and unable to tolerate hemodialysis. She is requiring albumin infusions with dialysis. 5. Left below-knee amputation site infection. The patient has a vancomycin resistant Enterococcus faecium. She is currently on IV zosyn and oral Zyvox. Infectious disease is following the patient. [facility]
[2019-04-25 14:46] VITALS: BP 160/79
[2019-04-25 20:00] VITALS: BP 142/63
[2019-04-25] MEDS: SIMVASTATIN 20 MG TAB PO SCH (21:26)
[2019-04-25] MEDS: rOPINIRole 1MG TAB PO SCH (21:26)
[2019-04-26] MEDS: ACETAMINOPHEN TAB 650MG DOSE (2X325MG) PO PRN ×3 (02:53→15:05)
[2019-04-26] MEDS: LOPERAMIDE 2 MG CAP PO PRN ×2 (05:50→14:06)
[2019-04-26] MEDS: LEVOTHYROXINE 125MCG TABLET (0.125MG) PO SCH (05:50)
[2019-04-26 06:00] VITALS: BP 158/75
[2019-04-26] MEDS: HumaLOG INSULIN (NovoLOG) PER UNIT SC SCH (07:30)
[2019-04-26] MEDS: CLOPIDOGREL 75 MG TAB PO SCH (09:00)
[2019-04-26] MEDS: LEVEMIR (INSULIN DETEMIR) 1 UNITS/0.01ML SC SCH (09:00)
[2019-04-26] MEDS: EUCERIN 120GM CREAM TOP SCH (09:00)
[2019-04-26] MEDS: PIPERACILLIN/TAZOBACTAM SOD 2.25 GM in D5W MINI-BAG PLUS 50 ML IV SCH (09:59)
[2019-04-26] MEDS: CALCIUM CARBONATE 500 MG CHEW U/D PO SCH ×2 (10:00→12:30)
[2019-04-26 10:01] VITALS: BP 158/75
[2019-04-26] MEDS: METOPROLOL TART 12.5 MG PER 1/2 TAB PO SCH (10:01)
[2019-04-26] MEDS: GABAPENTIN 300 MG CAP PO SCH (10:01)
[2019-04-26] MEDS: LINEZOLID 600MG TABLET (ZYVOX) PO SCH (10:02)
[2019-04-26] MEDS: DULoxetine 30 MG CAP (CYMBALTA) PO SCH (10:02)
[2019-04-26] MEDS: PANTOPRAZOLE 40MG TAB (PROTONIX) PO SCH (10:02)
[2019-04-26] MEDS: HEPARIN SOD (PORCINE) 5000 UNITS/ML VIAL SC SCH (10:03)
--- NOTE | 2019-04-26 13:43 | IPNPDOC ---
PM&R Progress Note DATE OF SERVICE: April 25, 2019 Faculty Support Coordinator Progress Note Subjective: Patient planned for discharge today, however debridement postponed until tomorrow. REVIEW OF SYSTEMS: The following is a completed review of systems and has been reviewed. Review of systems otherwise unremarkable. PAIN: Patient self reports no pain at rest EYES: Negative for recent vision loss EARS, NOSE, & THROAT: denies dysphagia, rhinorrhea, hearing loss CARDIOVASCULAR: denies chest pain, +exertional dyspnea PULMONARY: Negative. Denies shortness of breath except on exertion GASTROINTESTINAL: + ascites (improving) GENITOURINARY: Negative for dysuria MUSCULOSKELETAL: +arthritis, right foot toe amputations, left BKA NEUROLOGICAL: peripheral neuropathy HEMATOLOGICAL: +anemic SKIN: right D1 ischemic ulcer, left BKA incision with blisters, eschar patch just beneath incision line PSYCHIATRIC:+anxious All other review of systems found to be negative. PHYSICAL EXAMINATION: VITAL SIGNS: Please see below. GENERAL: Pleasant and cooperative. No acute distress. smiling HEENT: PERRL. Extraocular movements intact. Clear conjunctiva CARDIOVASCULAR: Regular rate and rhythm. No murmurs, rubs, or gallops LUNGS: Clear to auscultation bilaterally. No wheezes. No rhonchi ABDOMEN: Soft, very distended, however minimal pain with palpation, no guarding, Positive bowel sounds. NEUROLOGICAL: Alert and oriented times three. Cranial nerves II through XII grossly intact. Sensation grossly intact in UE, diminished in bilat LE EXTREMITIES: 5-\\5 strength bilateral upper extremities. 5-\\5 strength right lower extremity. 5-/5 strength in left hip flexion knee extension and knee flexion SKIN: left forearm AVF, right calf edematous with erythema (negative Homans) left BKA residual distal limb stage 3 wound with exposed tendon, slough, and some granulation tissue left D1 lateral toe ulcer c/d/i ASSESSMENT:-year-old 68 with past medical history of ESRD on HD and PVD who presents status post left BKA PLAN: 1. Rehab: OT/PT, assess for DME needs, improving squat pivots and nearly independent from a wheelchair level 2. Vascular- s/p left BKA on 04/06/[address] Estrella, was on IV Zosyn and Vanco c/u management per pharmacy- BKA wound discussed case with vascular s/p debridement 04/21/19, to OR again tomorrow for debridement and wound vac, -ID consulted to follow along, wound cx + strep Uberis, recs appreciated 3. Skin: left BKA s/p debridement and left D1 ulcer debridement, c/u dressing changes per vascular recs 4. CArdiac: pmh CAD s/p 4 stents, medicine consulted, c/u meds, episode of chest pain resolved -c/u Plavix -pmh diastolic CHF- on dialysis with renal monitoring fluid balance- fluid restrict to 1200cc/day 5. Resp: requiring supplemental oxygen due to poor ventilation in setting of ascites, encourage incentive spirometry and monitor for infection 6. Renal: ESRD on HD M/W/F- renal consulted, recs appreciated 7. GI: pmh cirrhosis with ascites, was getting paracentesis q2 weeks prior to hospitalization, concern for recent bleeding on last procedure 04/24/19- -protonix and TUMS for dyspepsia and ppx, Imodium for loose stools 8. DVT ppx: heparin 9. Pain: patient had altered mental status and low arousal s/p Narcan 04/15/19, c/u tylenol and gabapentin, AVOID adding any opioids as patient as fluctuating levels of arousal throughout the day and needs to be optimized for therapy 10. PScyh: pmh anxiety/depression, c/u home meds 11. Dispo: 04/26/19 to inpatient for debridement and wound vac Allergies Coded Allergies: pregabalin (Verified Adverse Reaction, Intermediate, "feeling weird", SI thoughts., 03/06/19) Vital Signs Vital Signs Date Time Temp Pulse Resp B/P (MAP) Pulse Ox O2 Delivery O2 Flow Rate FiO2 04/26/19 10:01 67 158/75 04/26/19 06:00 98.6 18 99 04/20/19 21:00 0.0 Laboratory Data Labs 24H Laboratory Tests 2 04/25/19 17:05: Bedside Glucose (Misc Panel) 124H 04/25/19 20:56: Bedside Glucose (Misc Panel) 207H 04/26/19 06:24: Bedside Glucose (Misc Panel) 177H 04/26/19 11:26: Bedside Glucose (Misc Panel) 147H Microbiology Microbiology 04/21/19 Gram Stain - Final, Complete 04/21/19 Abscess Culture - Final, Complete Enterococcus Faecium (Vre) Streptococcus Uberis 04/21/19 Anaerobic Culture - Final, Complete 04/17/19 Gram Stain - Final, Complete 04/17/19 Wound Culture - Final, Complete Streptococcus Uberis Enterococcus Faecium (Vre) Current Medications Current Medications Current Medications Acetaminophen (Tylenol Tab) 650 mg Q4HP PRN PO MILD PAIN (PS 1-4) Last administered on 04/26/19at 10:02; Start 04/12/19 at 12:15 Acetaminophen/ Hydrocodone Bitart ([place], Anexsia 5/325) 1 tab Q4HP PRN PO MILD/MODERATE PAIN (PS 1-7) Last administered on 04/24/19at 10:54; Start 04/21/19 at 13:45; Stop 04/24/19 at 18:16; Status DC Al Hydrox/Mg Hydrox/Simethicone (Mylanta) 30 ml Q4HP PRN PO DYSPEPSIA; Start 04/12/19 at 12:15 Amlodipine Besylate (Norvasc) 5 mg DAILY PO ; Start 04/23/19 at 09:00; Stop 04/23/19 at 09:00; Status DC Calcium Carbonate (Tums) 1,000 mg WM PO Last administered on 04/26/19at 10:00; Start 04/12/19 at 12:30 Clopidogrel Bisulfate (PLAVix) 75 mg DAILY PO ; Start 04/13/19 at 09:00; Stop 04/13/19 at 09:00; Status DC Clopidogrel Bisulfate (PLAVix) 75 mg DAILY PO Last administered on 04/25/19at 07:56; Start 04/17/19 at 09:00 Darbepoetin Yordan (Aranesp (Dialysis Use)) 100 mcg HD IV ; Start 04/13/19 at 08:30 Dextrose (Dextrose 50%) 25 ml ASDIRECTED PRN IV SEE LABEL COMMENTS; Start 04/12/19 at 12:15 Docusate Sodium (Colace) 100 mg BID PO Last administered on 04/19/19at 09:23; Start 04/12/19 at 21:00; Stop 04/19/19 at 18:17; Status DC Duloxetine HCl (Cymbalta) 30 mg DAILY PO Last administered on 04/26/19at 10:02; Start 04/13/19 at 09:00 Gabapentin (Neurontin) 300 mg BID PO Last administered on 04/26/19 10:01; Start 04/12/19 at 21:00 Glucagon (Glucagon) 1 mg ASDIRECTED PRN SC SEE LABEL COMMENTS; Start 04/12/19 at 12:15 Glucose (Glucose) 16 GM ASDIRECTED PRN PO SEE LABEL COMMENTS; Start 04/12/19 at 12:15 Heparin Sodium (Porcine) (Heparin) 5,000 units Q12H SC Last administered on 04/26/19at 10:03; Start 04/12/19 at 21:00 Insulin Detemir (Levemir Insulin) 10 units DAILY SC Last administered on 04/25/19at 07:58; Start 04/13/19 at 09:00; Status Future hold Insulin Detemir (Levemir Insulin) 10 units QHS SC Last administered on 04/25/19at 21:25; Start 04/12/19 at 21:00 Insulin Human Lispro (HumaLOG INSULIN) SEE PROTOCOL TABLE AC SC Last administered on 04/24/19at 18:17; Start 04/12/19 at 17:30; Status Future hold Insulin Human Lispro (HumaLOG INSULIN) SEE PROTOCOL TABLE QHS SC ; Start 04/12/19 at 21:00 Iron (Venofer) 100 mg HD IV ; Start 04/13/19 at 16:15; Stop 04/18/19 at 23:59; Status DC Levothyroxine Sodium (Synthroid) 125 mcg DAILY@06 PO Last administered on 04/26/19at 05:50; Start 04/13/19 at 06:00 Linezolid (Zyvox) 600 mg BID PO Last administered on 04/26/19at 10:02; Start 04/23/19 at 09:00 Loperamide HCl (Imodium) 2 mg ASDIRECTED PRN PO DIARRHEA Last administered on 04/26/19 05:50; Start 04/24/19 at 18:15 Metoprolol Succinate (TopROL XL) 25 mg BID PO Last administered on 04/17/19at 21:46; Start 04/12/19 at 21:00; Stop 04/18/19 at 09:05; Status DC Metoprolol Tartrate (Lopressor) 12.5 mg BID PO Last administered on 04/26/19at 10:01; Start 04/22/19 at 21:00 Mineral Oil/White Petrolatum (Eucerin) TO RLE BID TOP Last administered on 04/25/19at 21:26; Start 04/12/19 at 21:00 Miscellaneous (Unresolved Clarification Entry) SEE LABEL COMMENTS DAILY XX ; Start 04/19/19 at 09:00; Stop 04/19/19 at 14:55; Status DC Morphine Sulfate (Morphine Sulfate Inj) 4 mg Q4HP PRN IV SEVERE PAIN (PS 8-10); Start 04/12/19 at 16:00; Stop 04/13/19 at 10:52; Status DC Naloxone HCl (Narcan) 0.2 mg STAT STAT IV Last administered on 04/15/19at 15:38; Start 04/15/19 at 15:30; Stop 04/15/19 at 15:31; Status DC Non-Formulary Medication ( See Comment Field Below ) CHECK TO SEE IF THE PATIENT... DAILY@1600 XX Last administered on 04/20/19at 16:26; Start 04/12/19 at 16:00; Stop 04/23/19 at 11:01; Status DC Ondansetron HCl (Zofran) 4 mg Q6HP PRN PO NAUSEA; Start 04/12/19 at 12:15 Oxycodone HCl (OxyCONTIN) 10 mg BID PO Last administered on 04/15/19at 08:41; Start 04/12/19 at 21:00; Stop 04/15/19 at 18:30; Status DC Pantoprazole Sodium (Protonix) 40 mg DAILY PO Last administered on 04/26/19at 10:02; Start 04/13/19 at 09:00 Patiromer (Veltassa) 8.4 gm ASDIRECTED PRN PO SEE INSTRUCTIONS; Start 04/12/19 at 12:15; Status Cancel Piperacillin Sod/ Tazobactam Sod 2.25 gm/Dextrose 50 ml @ 100 mls/hr Q12H IV ; Start 04/17/19 at 14:00; Stop 04/17/19 at 21:05; Status DC Piperacillin Sod/ Tazobactam Sod 2.25 gm/Dextrose 50 ml @ 100 mls/hr Q12H IV Last administered on 04/26/19at 09:59; Start 04/17/19 at 21:00 Ropinirole HCl (Requip) 1 mg QHS PO Last administered on 04/25/19at 21:26; Start 04/12/19 at 21:00 Senna (Senokot) 1 tab QHS PO Last administered on 04/12/19at 21:39; Start 04/12/19 at 21:00; Stop 04/19/19 at 18:17; Status DC Simvastatin (Zocor) 20 mg QHS PO Last administered on 04/25/19at 21:26; Start 04/12/19 at 21:00 Sodium Hypochlorite (Dakin'S Solution) APPLY TOPICALLY TO WO... WDC PRN TOP EACH DRESSING CHANGE; Start 04/23/19 at 10:45 Trazodone HCl (Desyrel) 50 mg QPM PRN PO INSOMNIA; Start 04/12/19 at 16:00 Vancomycin HCl 750 mg/IV Miscellaneous Supplies 15 ml @ 15 mls/hr ASDIRECTED IV ; Start 04/12/19 at 12:15; Stop 04/12/19 at 13:03; Status DC Vancomycin HCl 750 mg/IV Miscellaneous Supplies 1 each/ Dextrose 275 ml @ 275 mls/hr HD IV ; Start 04/12/19 at 13:15; Stop 04/18/19 at 10:58; Status DC Vancomycin HCl 750 mg/IV Miscellaneous Supplies 1 each/ Dextrose 275 ml @ 275 mls/hr HD IV ; Start 04/22/19 at 16:00; Stop 04/23/19 at 09:20; Status DC Vancomycin HCl 1000 mg/IV Miscellaneous Supplies 1 each/ Dextrose 270 ml @ 270 mls/hr HD IV Last administered on 04/20/19at 16:17; Start 04/18/19 at 16:00; Stop 04/22/19 at 07:12; Status DC Vancomycin HCl 1000 mg/IV Miscellaneous Supplies 1 each/ Dextrose 283.3333 ml @ 275 mls/hr HD IV ; Start 04/18/19 at 16:00; Stop 04/18/19 at 16:00; Status DC WALTER BARRERA MD April 26, 2019 13:43
[2019-04-26 14:00] VITALS: BP 148/79
--- NOTE | 2019-04-26 14:57 | IPNPDOC ---
Date Seen The patient was seen on 04/26/19. Progress Note VASCULAR SURGERY Dr Estrella HPI: 68-year-old female admitted to 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 Denies any fevers, chills, weakness, fatigue, Headache, Chest Pain, Shortness of breath, cough, palpitations, abdominal pain, N/V/D or changes in bowel or bladder habits. Medical History HFpEF, grade II diastolic dysfxn, moderate LVH, mild pulm art HTN 09/14 echo Cirrhosis with hx metabolic encephalopathy, undergoes paracentesis every 2 weeks, S/P paracentesis 04/16/19. 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 Left arm AV fistula. Appendectomy. Hysterectomy. Bilateral cataracts. PE: GEN: 68 yo F, appears stated age. No acute distress. Alert. HEENT: Normocephalic, atraumatic. No facial asymmetry. Moist mucous membranes. CHEST: Regular rate and rhythm, +S1, +S2 LUNGS: Clear to auscultation bilaterally. No wheezes, rales, or rhonchi. ABD: Round, distended, nontender. +Bowel sounds throughout. EXT: S/P BKA LLE dressing is removed, wound is noted with yellow, necrotic tissue. NEURO: Alert and oriented x 3. Cranial nerves III-XII are intact. No focal deficits appreciated. 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 Patient is afebrile. WBC 10.4 Dr Fontanez following, currently IV Zosyn, Zyvox. WC 04/21/19 Organism 1 ENTEROCOCCUS FAECIUM (VRE) QUANTITY OF GROWTH MODERATE Organism 2 STREPTOCOCCUS UBERIS QUANTITY OF GROWTH MODERATE Recommend wound care with wet to dry dressing using Dakin Heena Q8hr. Pt is refusing Dakin, currently wet to dry. Discussed with Dr Estrella appearance of wound, plan for wound debridement and wound vac placement in OR 04/27/19 after HD. DVT ppx: heparin sc VS, I&O, 24H, Fishbone Vital Signs/I&O Vital Signs Date Time Temp Pulse Resp B/P (MAP) Pulse Ox O2 Delivery O2 Flow Rate FiO2 04/26/19 10:01 67 158/75 04/26/19 06:00 98.6 18 99 04/20/19 21:00 0.0 I&O- Last 24 Hours up to 6 AM 04/26/19 06:00 Intake Total 300 ml Output Total 1500 ml Balance -1200 ml Laboratory Data 24H LABS Laboratory Tests 2 04/25/19 17:05: Bedside Glucose (Misc Panel) 124H 04/25/19 20:56: Bedside Glucose (Misc Panel) 207H 04/26/19 06:24: Bedside Glucose (Misc Panel) 177H 04/26/19 11:26: Bedside Glucose (Misc Panel) 147H Microbiology Microbiology 04/21/19 Gram Stain - Final, Complete 04/21/19 Abscess Culture - Final, Complete Enterococcus Faecium (Vre) Streptococcus Uberis 04/21/19 Anaerobic Culture - Final, Complete 04/17/19 Gram Stain - Final, Complete 04/17/19 Wound Culture - Final, Complete Streptococcus Uberis Enterococcus Faecium (Vre) Trini Vieira April 26, 2019 14:57
--- NOTE | 2019-04-26 17:27 | IPN ---
DATE: 04/26/2019 SUBJECTIVE The patient was seen and examined the bedside today morning. She is afebrile, hemodynamically stable. She could not go for wound vac yesterday because of change in the schedule in the OR. She got dialyzed yesterday; 1.5 liters of fluid was removed. She denies any active complaints at this time but she does report that she definitely wants to go home tomorrow and she is requesting outpatient hemodialysis tomorrow afternoon after she is discharged. OBJECTIVE Vital signs: Temperature is 98.6 degrees Fahrenheit. Blood pressure 158/75, pulse is 67, respiratory rate of 18, saturating 99% on room air. Intake and output. Ultrafiltration was 1.5 liters with dialysis. Weight in the bed scale is 80.8 mL. PHYSICAL EXAMINATION General: The patient is awake, alert, oriented times three, laying in bed in no apparent distress. Head and neck examination: Extraocular muscles intact. Pupils equally round and reactive to light. Mucous membranes are moist. Neck is supple. There is no JVD. Cardiovascular: S1, S2, regular rate. 1+ edema of the right lower extremity. Respiratory: Chest is clear to auscultation bilaterally. Bilateral equal air entry. No rales or rhonchi. Abdomen: Soft, obese, mild amount of abdominal wall edema and mild ascites with dullness to percussion in the flanks. Musculoskeletal: Left below-knee amputation with dressing. RN NURSERY: No focal deficit. Power is 5/5 in all extremities. AV access: The left forearm AV fistula with thrill and bruit. LAB REVIEW: CBC showed a WBC of 10.4, hemoglobin 9.8, platelets are 168 and that is from yesterday. BMP is also from yesterday. CURRENT INPATIENT MEDICATIONS: The patient's medications were all reviewed by me. There is no change in the medication today as compared with yesterday. ASSESSMENT/PLAN 1. End-stage renal disease, on hemodialysis. The patient was dialyzed according to her Tuesday, Tuesday, Tuesday schedule. She is going to the OR today and she will get her regular dialysis tomorrow morning. 2. Hypertension with end-stage renal disease. The patient's blood pressure dropped during dialysis. She is requiring very low dose of metoprolol 12.5 mg p.o. twice a day only. 3. Recurrent ascites. The patient is getting ascitic tap once a week. Rest of the volume management is being done with dialysis. 4. Chronic diastolic congestive heart failure. Continue the fluid restriction. Continue albumin and fluid removal during dialysis. 5. Left below-knee amputation site infection. The patient has vancomycin-resistant Enterococci (VRE) on the cultures. She is currently on Zyvox and Zosyn. She is going for a wound vac placement today to the OR.
[2019-04-26] MEDS ORDERED: HYDR1CRE95 TOP (17:41)
[2019-04-26] MEDS ORDERED: APAP325T4 PO (17:41)
[2019-04-27] MEDS ORDERED: LINE600T11 PO (09:46)
--- NOTE | 2019-05-04 18:20 | RO ---
DATE OF PROCEDURE: 04/21/2019 PREOPERATIVE DIAGNOSIS: Nonhealing left below-knee amputation stump, right first toe nonhealing ulcer. POSTOPERATIVE DIAGNOSES: Nonhealing left below-knee amputation stump, right first toe nonhealing ulcer. PROCEDURE: Debridement of left below-knee amputation stump, debridement of right first toe ulcer. SURGEON: Dr. Amira Estrella SENIOR ACCOUNTING ANALYST: None. INDICATION: The patient is a 68-year-old female who has previously undergone a left below-knee amputation with breakdown of the stump which requires debridement. She also had a nonhealing right toe ulcer which requires debridement. ANESTHESIA: Local monitored anesthesia care (MAC). ESTIMATED BLOOD LOSS: 5 mL. IV FLUIDS: 30 mL. HEPARIN: None. COMPLICATIONS: None. DRAINS: None. SPECIMENS: None. IMPLANTS: None. DESCRIPTION OF PROCEDURE: The patient was taken to the operating room, placed supine on the operating room table and then underwent debridement of her left below-knee amputation stump as well as her right first toe. Debridement was performed with removal of all nonviable tissue down to healthy bleeding tissue. Dressings were then applied. The patient tolerated the procedure well. All instrument, sponge and needle counts were correct at the end the case. There were no complications. Dr. Estrella was present for and directed the entire case. The patient was transferred to the holding area and subsequently to the floor in stable condition.
== END 2019-04-26 16:07 | disposition short-term general hospital (02) | DRG 559 ==
LOC: M PM&R 12:25
PROVIDERS: ADMIT Physical Medicine & Rehabilitation; ATTEND Physical Medicine & Rehabilitation
PROC: 0W9F3ZZ Drainage of Abdominal Wall, Percutaneous Approach (ICD-10-PCS; 2019-04-16)
PROC: 0HBMXZZ Excision of Right Foot Skin, External Approach (ICD-10-PCS; 2019-04-21)
PROC: 0HBLXZZ Excision of Left Lower Leg Skin, External Approach (ICD-10-PCS; principal; 2019-04-21 15:00)
PROC: 0W9F3ZZ Drainage of Abdominal Wall, Percutaneous Approach (ICD-10-PCS; 2019-04-24)
DX: Z47.81 Encounter for orthopedic aftercare following surgical amputation (principal); N18.6 End stage renal disease; I50.33 Acute on chronic diastolic (congestive) heart failure; E43 Unspecified severe protein-calorie malnutrition; N25.81 Secondary hyperparathyroidism of renal origin; I13.2 Hypertensive heart and chronic kidney disease with heart failure and with stage 5 chronic kidney disease, or end stage renal disease; T87.44 Infection of amputation stump, left lower extremity; R18.8 Other ascites; Z89.512 Acquired absence of left leg below knee; K74.69 Other cirrhosis of liver; I25.10 Atherosclerotic heart disease of native coronary artery without angina pectoris; E03.9 Hypothyroidism, unspecified; F41.9 Anxiety disorder, unspecified; F32.9 Major depressive disorder, single episode, unspecified; D63.1 Anemia in chronic kidney disease; K21.9 Gastro-esophageal reflux disease without esophagitis; E11.51 Type 2 diabetes mellitus with diabetic peripheral angiopathy without gangrene; Z79.899 Other long term (current) drug therapy; Z88.8 Allergy status to other drugs, medicaments and biological substances; F11.90 Opioid use, unspecified, uncomplicated; Z79.4 Long term (current) use of insulin; Z91.19 Patient's noncompliance with other medical treatment and regimen; E11.621 Type 2 diabetes mellitus with foot ulcer; G25.81 Restless legs syndrome; E11.618 Type 2 diabetes mellitus with other diabetic arthropathy; E87.5 Hyperkalemia; G47.00 Insomnia, unspecified; Z95.2 Presence of prosthetic heart valve; I95.9 Hypotension, unspecified; Y83.5 Amputation of limb(s) as the cause of abnormal reaction of the patient, or of later complication, without mention of misadventure at the time of the procedure

== ENCOUNTER 2019-04-26 12:32 | Inpatient (IN) | payer MEDICARE ==
[~2019-04-26] VITALS: Ht 157.5 cm; Wt 71.4 kg
[~2019-04-26 12:32] MED LIST changes: +CALC200T15 PO; +DAKINSHS TOP; +HEPA500011 SC; +LINE600T11 PO; +LOPE2CA PO; +METO1TAB87 PO; +OXYC-403 PO; +ROPI1TAB PO; +TRAZ1TAB10 PO
[2019-04-26] MEDS ORDERED: MOM 30ML SUSPENSION UDC PO PRN (13:00)
[2019-04-26] MEDS ORDERED: MAALOX 30 ML SUSP *UDC PO PRN (13:00)
[2019-04-26] MEDS ORDERED: ENOXAPARIN 40 MG/0.4 ML SYRINGE (J1650) SC SCH (13:00)
[2019-04-26 16:08] VITALS: BP 170/79
[2019-04-26 16:55] LABS: HEMATOCRIT 31.7 % (36.0-47.0); HEMOGLOBIN 9.9 g/dl (12.0-15.5); MEAN CORPUSCULAR HEMOGLOBIN 29.6 pg (27.0-33.0); MEAN CORPUSCULAR HGB CONC 31.2 g/dl (32.0-36.5); MEAN CORPUSCULAR VOLUME 94.6 fl (80.0-96.0); PLATELET COUNT, AUTOMATED 157 10^3/uL (150-450); RED BLOOD COUNT 3.35 10^6/uL (4.00-5.40); WHITE BLOOD COUNT 6.4 10^3/uL (4.0-10.0)
--- NOTE | 2019-04-26 16:55 | HPEPDOC ---
General Date of Admission 04/26/2019 Date of Service: April 26, 2019 Chief Complaint The patient is a 68-year-old female admitted with a reason for DEBRIDEMENT OF NON HEALING WOUND Source: Patient, RN/MD Exam Limitations: No limitations Timing/Duration: Week(s) Severity: Moderate History of Present Illness Patient is a 68-year-old female, with recent left BKA 04/06/2019. Patient has a past medical history significant for end-stage renal disease on hemodialysis, end-stage liver disease requiring paracentesis every 2 weeks, type 2 diabetes mellitus, hypertension, anemia secondary to chronic disease. Patient was just discharged from rehabilitation facility due to nonhealing left BKA stump. She was also unable to tolerate dressing changes with dakins solution. Her hospitalization and the inpatient rehabilitation unit was uneventful except for one episode of altered mental status, which was attributed to narcotic use. During her time in the rehabilitation unit. She was monitored and managed for hemodialysis by the nephrology team, she is followed for paracentesis also. Vascular surgery remain on board for an evaluation and management. It is based on their recommendations that the patient was discharged from the rehab unit for admit to the medical unit for debridement due to nonhealing BKA stump. On assessment of patient she has no chest pain, no shortness of breath, she complains of pain to left BKA Home Medications Scheduled Calcium Carbonate (Tums) 500 Mg Chw, 500 MG PO WM, (Reported) Calcium Carbonate (Calcium Carbonate) 200 Mg Tab.chew, 1,000 MG PO WM Clopidogrel Bisulfate (Plavix) 75 Mg Tab, 75 MG PO DAILY, (Reported) HAS NOT TAKEN SINCE 03/16/19 - SCHEDULED FOR PARACENTESIS ON 03/22/19 Clopidogrel Bisulfate (Clopidogrel) 75 Mg Tablet, 75 MG PO DAILY Darbepoetin (Aranesp) 100 Mcg/0.5 Ml Syringe, 100 MCG IV HD Duloxetine Hcl (Duloxetine HCl) 30 Mg Cap, 30 MG PO DAILY, (Reported) Duloxetine Hcl (Cymbalta) 30 Mg Capsule.dr, 30 MG PO DAILY Gabapentin (Gabapentin) 100 Mg Cap, 300 MG PO BID, (Reported) Gabapentin (Gabapentin) 300 Mg Capsule, 300 MG PO BID Heparin Sodium,Porcine (Heparin Sodium) 5,000 Unit/1 Ml Vial, 5,000 UNITS SC Q12H Insulin Detemir (Levemir) 100 Unit/1 Ml Vial, 10 UNITS SC QHS Insulin Detemir (Levemir) 100 Unit/1 Ml Vial, 10 UNITS SC DAILY Insulin Human Lispro (Humalog) 100 Unit/1 Ml Vial, 0 UNITS SC AC Insulin Human Lispro (Humalog) 100 Unit/1 Ml Vial, 0 UNITS SC QHS Insulin Lispro (Humalog) 100 Unit/Ml Inj, 1 DOSE SC AC, (Reported) PER SLIDING SCALE Levothyroxine Sodium (Synthroid) 125 Mcg Tab, 125 MCG PO DAILY, (Reported) Levothyroxine Sodium (Levothyroxine Sodium) 125 Mcg Tablet, 125 MCG PO DAILY@06 Linezolid (Linezolid) 600 Mg Tablet, 600 MG PO BID Metoprolol Tartrate (Metoprolol Tartrate) 25 Mg Tablet, 12.5 MG PO BID Mineral Oil/Petrolatum,White (Hydrocerin Cream) 113 Gm Cream..g., 0 DOSE TOP BID Pantoprazole Sodium (Pantoprazole Sodium) 40 Mg Tab, 40 MG PO DAILY, (Reported) Pantoprazole Sodium (Pantoprazole Sodium) 40 Mg Tablet.dr, 40 MG PO DAILY Ropinirole HCl (Ropinirole HCl) 2 Mg Tab, 4 MG PO BID, (Reported) Ropinirole HCl (Ropinirole HCl) 1 Mg Tablet, 1 MG PO QHS Simvastatin (Simvastatin) 20 Mg Tab, 20 MG PO QHS, (Reported) Simvastatin (Simvastatin) 20 Mg Tablet, 20 MG PO QHS Scheduled PRN Loperamide HCl (Loperamide) 2 Mg Capsule, 2 MG PO ASDIRECTED PRN for DIARRHEA Patiromer Calcium Sorbitex (Veltassa) 8.4 Gm Pow, 8.4 GM PO ASDIRECTED PRN for MISSING DIALYSIS, (Reported) WAS SUPPOSE TO TAKE 03/19/19 BUT DID NOT TAKE Sodium Hypochlorite (Hysept) 473 Ml Solution, 0 ML TOP WDC PRN for EACH DRESSING CHANGE Trazodone HCl (Trazodone HCl) 50 Mg Tablet, 50 MG PO QPM PRN for INSOMNIA Allergies Coded Allergies: pregabalin (Verified Adverse Reaction, Intermediate, "feeling weird", SI thoughts., 03/06/19) Past Medical History Medical History Diabetes mellitus End-stage renal disease Liver cirrhosis with recurrent ascites Hypertension Hyperlipidemia Diastolic heart failure PAD Hypothyroidism CAD, S/P stents Anemia Surgical History Left foot surgery Left BKA Left AV fistula Appendectomy Hysterectomy Cataract surgery Family History Significant Family History: No pertinent family hx Social History * Smoker: Denies Alcohol: Denies Drugs: denies A-FIB/CHADSVASC A-FIB History Current/History of A-Fib/PAF?: No Current PO Anticoag Therapy: No Review of Systems Other systems A 10 point pertinent review of systems is completed and negative except as stated in history of present illness Physical Examination Other physical findings GENERAL: NAD SKIN : Warm, cool right leg, left stump dressing dry and intact HEENT: Atraumatic, normocephalic, PERRL, moist mucous membrane CARDIOVASCULAR: Regular rate and rhythm, S1S2, no JVD, right leg edema, distal pulses not palpable RESP: CTAB, no accessory muscle use noted ABDOMEN: BS+ non distended non tender MS: left BKA NEURO: Alert and oriented x 3, CN2-12 grossly intact PSYCH: no anxiety or agitation, appropriate mood and affect. Vital Signs see below Assessment/Plan Non Healing Left BKA -consult vascular surgery -wound debridement and possible placement of wound vac tomorrow Diastolic Heart Failure -volume control, fluid restriction -1200ml/day (ESLD)Liver Failure with recurrent Ascites -paracentesis every two weeks by IR ESRD -renal diet -consult nephrology for hemodialysis management Hypothyroidism -continue synthroid CAD S/P Stenting -stable, no anginal symptoms. -continue CAD risk factor modifications Anemia -due to chronic disease -Venofer with hemodialysis DVT prophylaxis -Heparin SQ Q12 Plan / VTE VTE Prophylaxis Ordered?: Yes YESSY CAMPOS April 26, 2019 16:55
[2019-04-26 17:14] LABS: ALBUMIN 2.2 GM/DL (3.2-5.2); BILIRUBIN,TOTAL 0.6 MG/DL (0.2-1.0); CALCIUM LEVEL 7.6 MG/DL (8.8-10.2); CREATININE FOR GFR 4.03 MG/DL (0.55-1.30); GLOMERULAR FILTRATION RATE 11.7 (>39); POTASSIUM SERUM 4.7 MEQ/L (3.5-5.1); TOTAL PROTEIN 6.1 GM/DL (6.4-8.2)
[2019-04-26] MEDS: HumaLOG INSULIN (NovoLOG) PER UNIT SC SCH ×2 (17:30→21:00)
[2019-04-26] MEDS ORDERED: HYDR1CRE95 TOP (17:41)
[2019-04-26] MEDS ORDERED: APAP325T4 PO (17:41)
[2019-04-26] MEDS ORDERED: DEXTROSE 50% 50 ML SYRINGE IV PRN (17:45)
[2019-04-26] MEDS ORDERED: GLUCOSE 4 GM CHEW TABLET PO PRN (17:45)
[2019-04-26] MEDS ORDERED: GLUCAGON FOR INJ 1 MG VIAL (J1610) SC PRN (17:45)
[2019-04-26 18:30] LABS: C REACTIVE PROTEIN QUANTITATIV 10.7 MG/DL (0.00-0.30)
[2019-04-26] MEDS: IPRATROPIUM 0.5MG/ALBUTEROL 2.5MG INH SOL UD 3ML (DUONEB)(J7620) NEB SCH ×2 (18:44→20:24)
[2019-04-26] MEDS ORDERED: PATIROMER SORBITEX CALCIUM 8.4 GM POWDER PACKET (VELTASSA) PO PRN (18:45)
[2019-04-26] MEDS ORDERED: DAKIN'S 0.25% HALF-STRENGTH SOLN 480 ML TOP PRN (18:45)
[2019-04-26] MEDS ORDERED: DARBEPOETIN 100 MCG/0.5 ML *DIALYSIS* SYRINGE (J0882) IV SCH (18:45)
[2019-04-26] MEDS ORDERED: traZODone 50 MG TAB PO PRN (18:45)
[2019-04-26] MEDS ORDERED: rOPINIRole 1MG TAB PO SCH (21:00)
[2019-04-26] MEDS: DOCUSATE SODIUM 100 MG CAP PO SCH ×2 (21:00→21:24)
[2019-04-26] MEDS: LINEZOLID 600MG TABLET (ZYVOX) PO SCH (21:23)
[2019-04-26] MEDS: SIMVASTATIN 20 MG TAB PO SCH (21:23)
[2019-04-26] MEDS: METOPROLOL TART 12.5 MG PER 1/2 TAB PO SCH (21:24)
[2019-04-26] MEDS: rOPINIRole 1MG TAB PO SCH (21:24)
[2019-04-26] MEDS: ACETAMINOPHEN TAB 650MG DOSE (2X325MG) PO PRN ×2 (21:24→22:11)
[2019-04-26] MEDS: GABAPENTIN 300 MG CAP PO SCH (21:25)
[2019-04-26] MEDS: LEVEMIR (INSULIN DETEMIR) 1 UNITS/0.01ML SC SCH (21:25)
[2019-04-26 22:00] VITALS: BP 137/63
[2019-04-26] MEDS: LOPERAMIDE 2 MG CAP PO PRN (23:02)
[2019-04-27] VITALS (9 sets, daily range): BP systolic 128–172; BP diastolic 60–84
[2019-04-27] MEDS: ACETAMINOPHEN TAB 650MG DOSE (2X325MG) PO PRN ×5 (02:07→21:28)
[2019-04-27] MEDS: LEVEMIR (INSULIN DETEMIR) 1 UNITS/0.01ML SC SCH ×2 (05:45→21:30)
[2019-04-27] MEDS: HumaLOG INSULIN (NovoLOG) PER UNIT SC SCH ×4 (05:45→21:00)
[2019-04-27] MEDS: CALCIUM CARBONATE 500 MG CHEW U/D PO SCH ×3 (05:51→17:06)
[2019-04-27] MEDS: DOCUSATE SODIUM 100 MG CAP PO SCH (05:51)
[2019-04-27] MEDS: DULoxetine 30 MG CAP (CYMBALTA) PO SCH (06:21)
[2019-04-27] MEDS: PANTOPRAZOLE 40MG TAB (PROTONIX) PO SCH (06:21)
[2019-04-27] MEDS: LINEZOLID 600MG TABLET (ZYVOX) PO SCH ×2 (06:22→21:28)
[2019-04-27] MEDS: GABAPENTIN 300 MG CAP PO SCH ×2 (06:22→21:28)
[2019-04-27] MEDS: LEVOTHYROXINE 125MCG TABLET (0.125MG) PO SCH (06:22)
[2019-04-27] MEDS: METOPROLOL TART 12.5 MG PER 1/2 TAB PO SCH ×2 (06:22→21:28)
[2019-04-27 06:31] LABS: HEMOGLOBIN 10.1 g/dl (12.0-15.5); MEAN CORPUSCULAR HEMOGLOBIN 29.1 pg (27.0-33.0); MEAN CORPUSCULAR HGB CONC 30.6 g/dl (32.0-36.5); MEAN CORPUSCULAR VOLUME 95.1 fl (80.0-96.0); PLATELET COUNT, AUTOMATED 167 10^3/uL (150-450); RED BLOOD COUNT 3.47 10^6/uL (4.00-5.40); WHITE BLOOD COUNT 5.8 10^3/uL (4.0-10.0)
[2019-04-27 06:54] LABS: BILIRUBIN,TOTAL 0.5 MG/DL (0.2-1.0); CALCIUM LEVEL 6.9 MG/DL (8.8-10.2); CREATININE FOR GFR 4.57 MG/DL (0.55-1.30); GLOMERULAR FILTRATION RATE 10.1 (>39); MAGNESIUM LEVEL 2.1 MG/DL (1.8-2.4); POTASSIUM SERUM 4.9 MEQ/L (3.5-5.1); TOTAL PROTEIN 6.2 GM/DL (6.4-8.2)
[2019-04-27] MEDS: IPRATROPIUM 0.5MG/ALBUTEROL 2.5MG INH SOL UD 3ML (DUONEB)(J7620) NEB SCH ×4 (07:24→21:00)
--- NOTE | 2019-04-27 09:42 | IPNPDOC ---
Date Seen The patient was seen on 04/27/19. 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 Denies any fevers, chills, weakness, fatigue, Headache, Chest Pain, Shortness of breath, cough, palpitations, abdominal pain, N/V/D or changes in bowel or bladder habits. Medical History HFpEF, grade II diastolic dysfxn, moderate LVH, mild pulm art HTN 09/14 echo Cirrhosis with hx metabolic encephalopathy, undergoes paracentesis every 2 weeks, S/P paracentesis 04/16/19. 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 Left arm AV fistula. Appendectomy. Hysterectomy. Bilateral cataracts. PE: GEN: 68 yo F, appears stated age. No acute distress. Alert. HEENT: Normocephalic, atraumatic. No facial asymmetry. Moist mucous membranes. CHEST: Regular rate and rhythm, +S1, +S2 LUNGS: Clear to auscultation bilaterally. No wheezes, rales, or rhonchi. ABD: Round, distended, nontender. +Bowel sounds throughout. EXT: S/P BKA LLE, wound is noted with yellow, necrotic tissue. NEURO: Alert and oriented x 3. Cranial nerves III-XII are intact. No focal deficits appreciated. 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 Patient is afebrile. WBC 5.[address] Fontanez following, currently IV Zosyn, Zyvox. WC 04/21/19 Organism 1 ENTEROCOCCUS FAECIUM (VRE) QUANTITY OF GROWTH MODERATE Organism 2 STREPTOCOCCUS UBERIS QUANTITY OF GROWTH MODERATE Recommend wound care with wet to dry dressing using Dakin Heena Q8hr. Pt is refusing Dakin, currently wet to dry. Discussed with Dr Estrella appearance of wound, plan for wound debridement and wound vac placement in OR 04/27/19 after HD. Pain mgmt as per primary service, follows with [facility] pain mgmt as outpt. DVT ppx: heparin sc VS, I&O, 24H, Fishbone Vital Signs/I&O Vital Signs Date Time Temp Pulse Resp B/P (MAP) Pulse Ox O2 Delivery O2 Flow Rate FiO2 04/27/19 06:22 69 144/72 04/27/19 06:00 97.9 18 99 I&O- Last 24 Hours up to 6 AM 04/27/19 06:00 Intake Total 360 ml Balance 360 ml Laboratory Data 24H LABS Laboratory Tests 2 04/26/19 16:40: Nucleated Red Blood Cells % (auto) 0.0, Anion Gap 9, Glomerular Filtration Rate 11.7L, Blood Urea Nitrogen 42H, Creatinine 4.03H, Sodium Level 138, Potassium Level 4.7, Chloride Level 101, Carbon Dioxide Level 28, Calcium Level 7.6L, Aspartate Amino Transf (AST/SGOT) 21, Alanine Aminotransferase (ALT/SGPT) 21, Alkaline Phosphatase 338H, Total Bilirubin 0.6, Total Protein 6.1L, Albumin 2.2L, C-Reactive Protein, Quantitative 10.70H, Albumin/Globulin Ratio 0.56L 04/27/19 05:55: Nucleated Red Blood Cells % (auto) 0.0, Anion Gap 7L, Glomerular Filtration Rate 10.1L, Blood Urea Nitrogen 54H, Creatinine 4.57H, Sodium Level 137, Potassium Level 4.9, Chloride Level 102, Carbon Dioxide Level 28, Calcium Level 6.9L, Aspartate Amino Transf (AST/SGOT) 37, Alanine Aminotransferase (ALT/SGPT) 27, Alkaline Phosphatase 462H, Total Bilirubin 0.5, Total Protein 6.2L, Albumin 2.0L, Albumin/Globulin Ratio 0.48L, Magnesium Level 2.1 CBC/BMP Laboratory Tests 04/26/19 16:40 Red Blood Count 3.35 L, Mean Corpuscular Volume 94.6, Mean Corpuscular Hemoglobin 29.6, Mean Corpuscular Hemoglobin Concent 31.2 L, Red Cell Distribution Width 19.0 H, Calcium Level 7.6 L, Aspartate Amino Transf (AST/SGOT) 21, Alanine Aminotransferase (ALT/SGPT) 21, Alkaline Phosphatase 338 H, Total Bilirubin 0.6, Total Protein 6.1 L, Albumin 2.2 L 04/27/19 05:55 Red Blood Count 3.47 L, Mean Corpuscular Volume 95.1, Mean Corpuscular Hemoglo bin 29.1, Mean Corpuscular Hemoglobin Concent 30.6 L, Red Cell Distribution Width 19.2 H, Calcium Level 6.9 L, Aspartate Amino Transf (AST/SGOT) 37, Alanine Aminotransferase (ALT/SGPT) 27, Alkaline Phosphatase 462 H, Total Bilirubin 0.5, Total Protein 6.2 L, Albumin 2.0 L Trini Vieira April 27, 2019 09:42
[2019-04-27] MEDS ORDERED: LINE600T11 PO (09:46)
[2019-04-27] MEDS: LOPERAMIDE 2 MG CAP PO PRN (09:49)
--- NOTE | 2019-04-27 12:27 | IPNPDOC ---
Subjective Date Seen The patient was seen on 04/27/19. Subjective Chief Complaint/HPI Patient wants to go home on for debridement tomorrow General: Denies: ROS Unobtainable, Chills, Night Sweats, Fatigue, Malaise, Normal Appetite, Other Symptoms Constitutional: Denies: Chills, Fever, Malaise, Night Sweats, Weakness, Fatigue, Weight Loss, Lethargy, Other Eyes: Denies: Pain, Vision change, Conjunctivae inflammation, Eyelid inflammation, Redness, Other ENT: Denies: Head Aches, Ear Pain, Dysphagia, Sinus Congestion, Post Nasal Drip, Sore Throat, Epistaxis, Other Symptoms Skin: Denies: Rash, Lesions, Jaundice, Bruising, Itching, Dry, Breakdown, Nail Changes, Other Pulmonary: Denies: Dyspnea, Cough, Pleuritic Chest Pain, Other Symptoms Cardiovascular: Denies: Chest Pain, Palpitations, Orthopnea, Paroxysmal Noc. Dyspnea, Edema, Lt Headedness, Other Symptoms Gastrointestinal: Denies: Nausea, Vomiting, Abdominal Pain, Diarrhea, Constipation, Melena, Hematochezia, Other Symptoms Genitourinary: Denies: Dysuria, Frequency, Incontinence, Hematuria, Retention, Other Symptoms Hematologic: Denies: Bruising, Bleeding Excessively, Petecchia, Purpura, Enlarged Lymph Nodes, Other Hematologic Endocrine: Denies: Polydipsia, Polyphagia, Polyuria, Heat Intolerance, Cold Intolerance, Other Endocrine Sx Musculoskeletal: Denies: Neck Pain, Back Pain, Shoulder Pain, Arm Pain, Hand Pain, Leg Pain, Foot Pain, Joint Pain, Muscle Pain, Spasms, Other Symptoms Neurological: Denies: Weakness, Numbness, Incoordination, Change in speech, Confusion, Seizures, Other Symptoms Psych: Denies: Mood Normal, Anxiety, Depression, Memory Issues, Thoughts of Self Harm, Anger, Thoughts of Harming Other, Other Psych Objective Physical Examination General Exam: Positive: Alert, Cooperative Eye Exam: Positive: PERRLA, Conjunctiva & lids normal ENT Exam: Positive: Atraumatic, Mucous membr. moist/pink Neck Exam: Positive: Supple Chest Exam: Positive: Clear to auscultation, Normal air movement Heart Exam: Positive: Rate Normal, Normal S1 Abdomen Exam: Positive: Normal bowel sounds, Soft, Tenderness Extremity Exam: Positive: Other (left BKA) Skin Exam: Positive: Nl turgor and temperature Neuro Exam: Positive: Normal Gait, Normal Speech Psych Exam: Positive: Mental status NL, Mood NL Assessment /Plan Problems (1) Amputation stump infection Problem Text: Non Healing Left BKA -consult vascular surgery -wound debridement and possible placement of wound vac today -Possible DC tomorrow if all arrangements are made (2) End-stage renal disease needing dialysis Status: Chronic Problem Text: ESRD -renal diet -consult nephrology for hemodialysis management (3) Diastolic congestive heart failure Status: Chronic Problem Text: Diastolic Heart Failure -volume control, fluid restriction -1200ml/day Plan/VTE VTE Prophylaxis Ordered?: Yes VS, I&O, 24H, Fishbone Vital Signs/I&O Vital Signs Date Time Temp Pulse Resp B/P (MAP) Pulse Ox O2 Delivery O2 Flow Rate FiO2 04/27/19 06:22 69 144/72 04/27/19 06:00 97.9 18 99 I&O- Last 24 Hours up to 6 AM 04/27/19 06:00 Intake Total 360 ml Balance 360 ml Laboratory Data 24H LABS Laboratory Tests 2 04/26/19 16:40: Nucleated Red Blood Cells % (auto) 0.0, Anion Gap 9, Glomerular Filtration Rate 11.7L, Blood Urea Nitrogen 42H, Creatinine 4.03H, Sodium Level 138, Potassium Level 4.7, Chloride Level 101, Carbon Dioxide Level 28, Calcium Level 7.6L, Aspartate Amino Transf (AST/SGOT) 21, Alanine Aminotransferase (ALT/SGPT) 21, Alkaline Phosphatase 338H, Total Bilirubin 0.6, Total Protein 6.1L, Albumin 2.2L, C-Reactive Protein, Quantitative 10.70H, Albumin/Globulin Ratio 0.56L 04/27/19 05:55: Nucleated Red Blood Cells % (auto) 0.0, Anion Gap 7L, Glomerular Filtration Rate 10.1L, Blood Urea Nitrogen 54H, Creatinine 4.57H, Sodium Level 137, Potassium Level 4.9, Chloride Level 102, Carbon Dioxide Level 28, Calcium Level 6.9L, Aspartate Amino Transf (AST/SGOT) 37, Alanine Aminotransferase (ALT/SGPT) 27, Alkaline Phosphatase 462H, Total Bilirubin 0.5, Total Protein 6.2L, Albumin 2.0L, Albumin/Globulin Ratio 0.48L, Magnesium Level 2.1 CBC/BMP Laboratory Tests 04/26/19 16:40 Red Blood Count 3.35 L, Mean Corpuscular Volume 94.6, Mean Corpuscular Hemoglobin 29.6, Mean Corpuscular Hemoglobin Concent 31.2 L, Red Cell Distribution Width 19.0 H, Calcium Level 7.6 L, Aspartate Amino Transf (AST/SGOT) 21, Alanine Aminotransferase (ALT/SGPT) 21, Alkaline Phosphatase 338 H, Total Bilirubin 0.6, Total Protein 6.1 L, Albumin 2.2 L 04/27/19 05:55 Red Blood Count 3.47 L, Mean Corpuscular Volume 95.1, Mean Corpuscular H emoglobin 29.1, Mean Corpuscular Hemoglobin Concent 30.6 L, Red Cell Distribution Width 19.2 H, Calcium Level 6.9 L, Aspartate Amino Transf (AST/SGOT) 37, Alanine Aminotransferase (ALT/SGPT) 27, Alkaline Phosphatase 462 H, Total Bilirubin 0.5, Total Protein 6.2 L, Albumin 2.0 L SHAGGY MASON MD April 27, 2019 12:27
[2019-04-27] MEDS ORDERED: LIDOCAINE 2% INJ 100 MG/5 ML SDV (FOR ANES.) As Ordered ONE (14:15)
[2019-04-27] MEDS ORDERED: ONDANSETRON 4MG/2ML VIAL (J2405) As Ordered ONE (14:16)
[2019-04-27] MEDS ORDERED: dexameTHASONE 4 MG/ML 1ML VIAL (J1100) As Ordered ONE (14:16)
[2019-04-27] MEDS ORDERED: PROPOFOL 200 MG/20 ML VIAL As Ordered ONE (14:16)
[2019-04-27] MEDS ORDERED: MIDAZOLAM INJ 2 MG/2 ML VIAL (J2250) As Ordered ONE (14:20)
[2019-04-27] MEDS ORDERED: fentaNYL 100 MCG/2 ML INJECTION (J3010) As Ordered ONE (14:20)
[2019-04-27] MEDS ORDERED: KETAMINE HCL 200 MG/20 ML VIAL As Ordered ONE (14:20)
[2019-04-27] MEDS: fentaNYL 100 MCG/2 ML INJECTION (J3010) IV PRN ×2 (16:15→17:02)
[2019-04-27] MEDS ORDERED: NS 1,000 ML IV SCH (16:15)
[2019-04-27] MEDS ORDERED: ONDANSETRON 4MG/2ML VIAL (J2405) IV PRN (16:15)
--- NOTE | 2019-04-27 17:59 | IPN ---
DATE: 04/27/2019 Dalila was seen during dialysis. She was very upset about the care she was getting. She was upset about the fact that she did not have surgery for the past 2 days, when she was told she was going to have surgery earlier this week. She is scheduled to go to the operating room (OR) later today. She refuses to take Dakin's placed on her wound, as it is very painful, and she has not been given any pain medication other than Tylenol. This has occurred in the setting of The patient states at home she takes about oxycodone two or three tablets at most a day, and she does not require any more than that. She never has any problems with it. PHYSICAL EXAMINATION: Temperature is 96.9, pulse 69, respirations 19, blood pressure 169/77, oxygen saturation 100% on room air. ABDOMEN: Soft, nontender. No hemostasis. LUNGS: Clear. Left lower extremity stump: Erythema, about 1 cm around the margin. There is some necrotic along the stump. Some tenderness. LABORATORY DATA: White count 5.8, hemoglobin 10.1, hematocrit 33, platelets 167. Sodium 137, potassium 4.9, chloride 102, bicarbonate 28, BUN 54, creatinine 4.57, glucose 185, calcium 6.9. AST 37, ALT 27, alkaline phosphatase 462. CRP 10.7. Cultures are positive for Streptococcus uberis and vancomycin-resistant Enterococcus (VRE). IMPRESSION: Vancomycin-resistant Enterococcus (VRE) Stump infection, undergoing debridement today. The patient has been started on linezolid 600 mg by mouth twice a day. She is currently day #5. PLAN: Debridement today. Consider adding small doses of narcotics to help with pain management. Wound vacuum-assisted closure (VAC) following surgery. The patient is expecting to be discharged home on Tuesday, and I told her that that was not a goal that we could achieve, and probably would have to wait until Tuesday. SHAAN
--- NOTE | 2019-04-27 19:58 | IPN ---
DATE: 04/27/2019 SUBJECTIVE The patient was seen and examined at the bedside today afternoon during hemodialysis. She was tolerating the hemodialysis procedure well. The patient did not get her wound Vac placed yesterday because of change in the OR schedule. The patient reports that she is going to the OR today for left below-knee amputation site debridement and wound Vac placement. She denies any other active complaints. OBJECTIVE Vital signs: Temperature is 97.9 degrees Fahrenheit. Blood pressure 144/72, pulse is 69. Respiratory of 18, saturating 99% on room air. Intake and output: Urine output is not recorded. Weight in the bed scale was 80.8 mL yesterday. PHYSICAL EXAMINATION General: The patient is awake, alert, oriented times three, laying in the bed in no apparent distress. Head and neck examination: Extraocular muscles intact. Pupils equally round and reactive to light. Neck is supple. There is no JVD. Cardiovascular: S1, S2. 2+ edema of the right lower extremity. Respiratory: Chest is clear to auscultation bilaterally. Bilateral equal air entry. No rales or rhonchi. Abdomen is soft, obese, positive bowel sounds. Mild amount of abdominal wall edema was noted and there is mild ascites. Musculoskeletal: The patient has 2+ edema of the right lower extremity. Left leg has below-knee amputation covered with a dressing. 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 Power is 5/5 in all extremities. LABORATORY REVIEW: CBC showed WBC 5.8, hemoglobin 10.1, platelets are 167. BMP showed sodium 137, potassium 4.9, chloride 102, bicarb 28, BUN 54, creatinine is 4.5. CURRENT INPATIENT MEDICATIONS Patient's medications were all reviewed by me. There is no change in the medications today as compared with yesterday. ASSESSMENT/PLAN 1. End-stage renal disease on hemodialysis. The patient is getting Tuesday, Tuesday, Tuesday hemodialysis because of hypotension and low albumin. The patient gets albumin with dialysis. I will try to remove at least 2 kg of fluid during dialysis today. 2. Recurrent ascites. It is secondary to renal failure, congestive heart failure (CHF) and cirrhosis. The patient is getting ascitic tap once a week. 3. Anemia and end-stage renal disease. Hemoglobin is 10.1 which is optimal. Continue current dose of Aranesp with dialysis. 4. Left below-knee amputation site infection. The patient is currently getting Zyvox as per infectious disease recommendations. 5. Hypertension with hypertensive heart disease and end-stage renal disease. Continue current dose of metoprolol. Aggressive blood pressure treatment causes hypotension during hemodialysis.
[2019-04-27] MEDS: rOPINIRole 1MG TAB PO SCH (21:28)
[2019-04-27] MEDS: SIMVASTATIN 20 MG TAB PO SCH (21:28)
[2019-04-27] MEDS: PERCOCET 5MG/325MG TAB PO PRN (22:30)
[2019-04-28] VITALS (7 sets, daily range): BP systolic 133–171; BP diastolic 61–77
[2019-04-28] MEDS: PERCOCET 5MG/325MG TAB PO PRN ×3 (05:22→21:58)
[2019-04-28] MEDS: LEVOTHYROXINE 125MCG TABLET (0.125MG) PO SCH (05:22)
[2019-04-28] MEDS: IPRATROPIUM 0.5MG/ALBUTEROL 2.5MG INH SOL UD 3ML (DUONEB)(J7620) NEB SCH ×4 (07:34→20:18)
[2019-04-28] MEDS: HumaLOG INSULIN (NovoLOG) PER UNIT SC SCH ×4 (08:52→21:00)
[2019-04-28] MEDS: PANTOPRAZOLE 40MG TAB (PROTONIX) PO SCH (08:53)
[2019-04-28] MEDS: LEVEMIR (INSULIN DETEMIR) 1 UNITS/0.01ML SC SCH ×2 (08:53→21:59)
[2019-04-28] MEDS: GABAPENTIN 300 MG CAP PO SCH ×2 (08:55→21:58)
[2019-04-28] MEDS: DULoxetine 30 MG CAP (CYMBALTA) PO SCH (08:55)
[2019-04-28] MEDS: LINEZOLID 600MG TABLET (ZYVOX) PO SCH ×2 (08:55→21:58)
[2019-04-28] MEDS: METOPROLOL TART 12.5 MG PER 1/2 TAB PO SCH ×2 (08:55→21:58)
[2019-04-28] MEDS: CALCIUM CARBONATE 500 MG CHEW U/D PO SCH ×3 (08:56→18:21)
--- NOTE | 2019-04-28 09:41 | IPNPDOC ---
Subjective Date Seen The patient was seen on 04/28/19. Subjective Chief Complaint/HPI Arturo has a wound VAC on her stump, offers no new complaints General: Denies: ROS Unobtainable, Chills, Night Sweats, Fatigue, Malaise, Normal Appetite, Other Symptoms Constitutional: Denies: Chills, Fever, Malaise, Night Sweats, Weakness, Fatigue, Weight Loss, Lethargy, Other Eyes: Denies: Pain, Vision change, Conjunctivae inflammation, Eyelid inflammation, Redness, Other ENT: Denies: Head Aches, Ear Pain, Dysphagia, Sinus Congestion, Post Nasal Drip, Sore Throat, Epistaxis, Other Symptoms Skin: Denies: Rash, Lesions, Jaundice, Bruising, Itching, Dry, Breakdown, Nail Changes, Other Pulmonary: Denies: Dyspnea, Cough, Pleuritic Chest Pain, Other Symptoms Cardiovascular: Denies: Chest Pain, Palpitations, Orthopnea, Paroxysmal Noc. Dyspnea, Edema, Lt Headedness, Other Symptoms Gastrointestinal: Denies: Nausea, Vomiting, Abdominal Pain, Diarrhea, Constipation, Melena, Hematochezia, Other Symptoms Genitourinary: Denies: Dysuria, Frequency, Incontinence, Hematuria, Retention, Other Symptoms Hematologic: Denies: Bruising, Bleeding Excessively, Petecchia, Purpura, Enlarged Lymph Nodes, Other Hematologic Musculoskeletal: Denies: Neck Pain, Back Pain, Shoulder Pain, Arm Pain, Hand Pain, Leg Pain, Foot Pain, Joint Pain, Muscle Pain, Spasms, Other Symptoms Neurological: Denies: Weakness, Numbness, Incoordination, Change in speech, Confusion, Seizures, Other Symptoms Psych: Denies: Mood Normal, Anxiety, Depression, Memory Issues, Thoughts of Self Harm, Anger, Thoughts of Harming Other, Other Psych Objective Physical Examination General Exam: Positive: Alert, Cooperative Eye Exam: Positive: PERRLA, Conjunctiva & lids normal ENT Exam: Positive: Atraumatic, Mucous membr. moist/pink Neck Exam: Positive: Supple Chest Exam: Positive: Clear to auscultation, Normal air movement Heart Exam: Positive: Rate Normal, Normal S1 Abdomen Exam: Positive: Normal bowel sounds, Soft, Tenderness Extremity Exam: Positive: Other (left BKA) Skin Exam: Positive: Nl turgor and temperature Neuro Exam: Positive: Normal Gait, Normal Speech Psych Exam: Positive: Mental status NL, Mood NL Assessment /Plan Problems (1) Amputation stump infection Problem Text: Non Healing Left BKA -consult vascular surgery -wound debridement and possible placement of wound vac today Wound VAC placed by Dr. Estrella Continue by mouth antibiotics Home care arrangements to be made possible discharge on Tuesday (2) End-stage renal disease needing dialysis Status: Chronic Problem Text: ESRD -renal diet Dr. Andrade's follow-up noted and appreciated Continue HD Tuesday, Tuesday, Tuesday (3) Diastolic congestive heart failure Status: Chronic Problem Text: Diastolic Heart Failure Stable under control Plan/VTE VTE Prophylaxis Ordered?: Yes VS, I&O, 24H, Fishbone Vital Signs/I&O Vital Signs Date Time Temp Pulse Resp B/P (MAP) Pulse Ox O2 Delivery O2 Flow Rate FiO2 04/28/19 08:55 72 133/61 04/28/19 06:00 97.5 17 100 2.0 I&O- Last 24 Hours up to 6 AM 04/28/19 06:00 Intake Total 320 ml Output Total 2500 ml Balance -2180 ml Laboratory Data 24H LABS Laboratory Tests 2 04/27/19 15:23: Bedside Glucose (Misc Panel) 86 04/27/19 20:58: Bedside Glucose (Misc Panel) 155H 04/28/19 05:47: Bedside Glucose (Misc Panel) 271H SHAGGY MASON MD Apr 28, 2019 09:41
[2019-04-28] MEDS: BACITRACIN OINT 30GM TOP SCH (11:25)
[2019-04-28] MEDS: SIMVASTATIN 20 MG TAB PO SCH (21:58)
[2019-04-28] MEDS: rOPINIRole 1MG TAB PO SCH (21:58)
[2019-04-29] MEDS: LOPERAMIDE 2 MG CAP PO PRN ×2 (01:19→18:58)
[2019-04-29 02:00] VITALS: BP 134/63
[2019-04-29] MEDS: LEVOTHYROXINE 125MCG TABLET (0.125MG) PO SCH (05:21)
[2019-04-29 06:00] VITALS: BP 144/65
[2019-04-29] MEDS: IPRATROPIUM 0.5MG/ALBUTEROL 2.5MG INH SOL UD 3ML (DUONEB)(J7620) NEB SCH ×4 (07:37→20:08)
[2019-04-29] MEDS: LEVEMIR (INSULIN DETEMIR) 1 UNITS/0.01ML SC SCH ×2 (08:36→21:53)
[2019-04-29] MEDS: HumaLOG INSULIN (NovoLOG) PER UNIT SC SCH ×4 (08:37→21:54)
[2019-04-29] MEDS: CALCIUM CARBONATE 500 MG CHEW U/D PO SCH ×3 (08:37→17:58)
[2019-04-29] MEDS: PANTOPRAZOLE 40MG TAB (PROTONIX) PO SCH (08:38)
[2019-04-29] MEDS: DULoxetine 30 MG CAP (CYMBALTA) PO SCH (08:38)
[2019-04-29] MEDS: GABAPENTIN 300 MG CAP PO SCH ×2 (08:38→20:19)
[2019-04-29] MEDS: LINEZOLID 600MG TABLET (ZYVOX) PO SCH ×2 (08:38→20:18)
[2019-04-29] MEDS: METOPROLOL TART 12.5 MG PER 1/2 TAB PO SCH ×2 (08:39→20:20)
[2019-04-29] MEDS: BACITRACIN OINT 30GM TOP SCH (08:39)
--- NOTE | 2019-04-29 09:06 | IPNPDOC ---
Subjective Date Seen The patient was seen on 04/29/19. Subjective Chief Complaint/HPI Patient was to move around but is very difficult with wound VAC to carry with wheelchair physical therapy on the consult General: Denies: ROS Unobtainable, Chills, Night Sweats, Fatigue, Malaise, Normal Appetite, Other Symptoms Constitutional: Denies: Chills, Fever, Malaise, Night Sweats, Weakness, Fatigue, Weight Loss, Lethargy, Other Pulmonary: Denies: Dyspnea, Cough, Pleuritic Chest Pain, Other Symptoms Cardiovascular: Denies: Chest Pain, Palpitations, Orthopnea, Paroxysmal Noc. Dyspnea, Edema, Lt Headedness, Other Symptoms Gastrointestinal: Denies: Nausea, Vomiting, Abdominal Pain, Diarrhea, Constipation, Melena, Hematochezia, Other Symptoms Musculoskeletal: Denies: Neck Pain, Back Pain, Shoulder Pain, Arm Pain, Hand Pain, Leg Pain, Foot Pain, Joint Pain, Muscle Pain, Spasms, Other Symptoms Neurological: Denies: Weakness, Numbness, Incoordination, Change in speech, Confusion, Seizures, Other Symptoms Psych: Denies: Mood Normal, Anxiety, Depression, Memory Issues, Thoughts of Self Harm, Anger, Thoughts of Harming Other, Other Psych Objective Physical Examination General Exam: Positive: Alert, Cooperative Neck Exam: Positive: Supple Chest Exam: Positive: Clear to auscultation, Normal air movement Heart Exam: Positive: Rate Normal, Normal S1, Normal S2 Abdomen Exam: Positive: Normal bowel sounds, Soft, Tenderness Extremity Exam: Positive: Other (left BKA) Psych Exam: Positive: Mental status NL, Mood NL Assessment /Plan Problems (1) Amputation stump infection Problem Text: Non Healing Left BKA Further, as per vascular surgery's recommendations including dressing Wound VAC placed by Dr. Estrella Continue by mouth antibiotics Home care arrangements to be made possible discharge on Tuesday (2) End-stage renal disease needing dialysis Status: Chronic Problem Text: ESRD -renal diet Dr. Moore's follow-up noted and appreciated Continue HD Tuesday, Tuesday, Tuesday (3) Diastolic congestive heart failure Status: Chronic Problem Text: Diastolic Heart Failure Stable under control Plan/VTE VTE Prophylaxis Ordered?: Yes VS, I&O, 24H, Fishbone Vital Signs/I&O Vital Signs Date Time Temp Pulse Resp B/P (MAP) Pulse Ox O2 Delivery O2 Flow Rate FiO2 6/2/19 08:39 72 134/63 04/29/19 06:00 96.6 18 96 2.0 04/28/19 09:30 100 I&O- Last 24 Hours up to 6 AM 04/29/19 06:00 Intake Total 840 ml Output Total 0 ml Balance 840 ml Laboratory Data 24H LABS Laboratory Tests 2 04/28/19 11:28: Bedside Glucose (Misc Panel) 255H 04/28/19 16:54: Bedside Glucose (Misc Panel) 313H 04/28/19 21:52: Bedside Glucose (Misc Panel) 243H SHAGGY MASON MD Apr 29, 2019 09:06
[2019-04-29 10:00] VITALS: BP 138/64
[2019-04-29] MEDS: PERCOCET 5MG/325MG TAB PO PRN ×2 (10:05→20:19)
[2019-04-29 14:00] VITALS: BP 128/65
--- NOTE | 2019-04-29 14:47 | IPN ---
DATE: 04/28/2019 SUBJECTIVE: The patient was seen and examined at the bedside today, morning. The patient was getting ready to get her left leg wound VAC changed when I saw her in the morning. She otherwise denies any active complaints. She was dialyzed yesterday; 2.5 liters of fluid was removed. She is afebrile and hemodynamically stable. OBJECTIVE: Vital signs: Temperature is 96.2 degrees Fahrenheit, blood pressure 151/66, pulse is 72, respiratory rate of 19, saturating 100% on nasal cannula at 2 liters. Intake and output: Ultrafiltration with hemodialysis was 2.5 liters yesterday. Weight on the bed scale is not available. PHYSICAL EXAMINATION: General: The patient is awake, alert, oriented times three, laying in bed, in no apparent distress. Head and neck exam: Extraocular muscles intact. Pupils equally round and reactive to light. Mucous membranes are moist. Neck is supple. There is no jugular venous distention (JVD). Cardiovascular: S1, S2. 2+ edema of the right lower extremity. Respiratory: Chest is clear to auscultation bilaterally. Bilateral equal air entry. No rales or rhonchi. Abdomen: Soft, obese, positive bowel sounds. Abdominal wall edema, and there is a moderate amount of ascites. Musculoskeletal: The patient has a wound VAC on the left below-knee amputation site. 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 Power is 5/5 in bilateral upper extremities. LAB REVIEW: Hemoglobin was 10.1 yesterday and BMP was done yesterday, which showed a potassium of 4.9. CURRENT INPATIENT MEDICATIONS: The patient's medications were all reviewed by me. There is no change in the medications today as compared with yesterday. ASSESSMENT/PLAN: 1. End-stage renal disease - on hemodialysis. The patient's regular dialysis days are Tuesday, Tuesday, Tuesday. She was dialyzed yesterday. Next hemodialysis will be done on Tuesday along with albumin. 2. Recurrent ascites. The patient usually gets ascitic tap once a week. She will be scheduled for tap next week. Volume status is being managed with dialysis. 3. Left below-knee amputation site infection. The patient is on Zyvox. She got a wound VAC and wound VAC is being changed today at the bedside. 4. Hypertension with hypertensive heart disease. Continue low dose of metoprolol at this time.
[2019-04-29 18:00] VITALS: BP 133/63
[2019-04-29] MEDS: rOPINIRole 1MG TAB PO SCH (20:18)
[2019-04-29] MEDS: SIMVASTATIN 20 MG TAB PO SCH (20:18)
[2019-04-29 22:00] VITALS: BP 148/64
[2019-04-30 02:00] VITALS: BP 111/48
[2019-04-30] MEDS: PANTOPRAZOLE 40MG TAB (PROTONIX) PO SCH (05:45)
[2019-04-30] MEDS: CALCIUM CARBONATE 500 MG CHEW U/D PO SCH ×4 (05:45→18:03)
[2019-04-30] MEDS: LINEZOLID 600MG TABLET (ZYVOX) PO SCH ×2 (05:45→21:26)
[2019-04-30] MEDS: DULoxetine 30 MG CAP (CYMBALTA) PO SCH (05:45)
[2019-04-30] MEDS: GABAPENTIN 300 MG CAP PO SCH ×2 (05:45→21:28)
[2019-04-30] MEDS: LEVOTHYROXINE 125MCG TABLET (0.125MG) PO SCH (05:45)
[2019-04-30 06:00] VITALS: BP 113/58
[2019-04-30] MEDS: IPRATROPIUM 0.5MG/ALBUTEROL 2.5MG INH SOL UD 3ML (DUONEB)(J7620) NEB SCH ×4 (07:16→20:00)
[2019-04-30] MEDS ORDERED: HEPARIN 1,000 UNITS/ML 10ML VIAL (FOR RADIOLOGY& DIALYSIS ONLY) IV ONE (07:45)
[2019-04-30] MEDS ORDERED: LIDOCAINE 1% SDV 5 ML VIAL SQ ONE (07:45)
[2019-04-30] MEDS: METOPROLOL TART 12.5 MG PER 1/2 TAB PO SCH ×2 (07:45→21:28)
[2019-04-30] MEDS: HumaLOG INSULIN (NovoLOG) PER UNIT SC SCH ×5 (07:46→21:25)
[2019-04-30] MEDS: LEVEMIR (INSULIN DETEMIR) 1 UNITS/0.01ML SC SCH ×2 (07:46→21:26)
[2019-04-30] MEDS: BACITRACIN OINT 30GM TOP SCH (07:47)
--- NOTE | 2019-04-30 09:15 | IPN ---
DATE: 04/29/2019 SUBJECTIVE: The patient is seen and examined this morning sitting out of bed to the chair. She is in good spirits. She denies any complaints or concerns. Her volume status has improved nicely over the course of this admission and she is eager to go home later this week. She is for dialysis tomorrow. Vital Signs: Temperature 97.3, pulse 75, respiratory rate 18, blood pressure 138/64, saturating 100%. Intake yesterday was 900 mL. Weight in the bed scale today is 80 kg. General: The patient is seen sitting out of bed in the wheelchair, drawing, awake, alert, oriented, in no acute distress. Extraocular muscles are intact. Tongue is moist. Neck is supple. Jugular veins were not elevated while she is sitting upright. Cardiac: S1 and S2. Regular rate and rhythm. Lungs were clear to auscultation bilaterally. No crackle, rale or wheeze. Abdomen is soft and nontender. There is ascitic fluid in situ. The left upper extremity fistula has a thrill and bruit. The left hrivo-adc-[id number] amputation site has a wound Vac. The right lower extremity has no significant edema. Neurologic: She is at baseline mentation, oriented times three. LABORATORIES: No new labs. INPATIENT MEDICATIONS: Reviewed by myself and no change from prior. PROBLEMS: 1. End-stage renal disease on hemodialysis on a Tuesday, Tuesday, Tuesday schedule. Her volume status has improved very nicely over the course of this admission. She has been receiving albumin with dialysis and she has been tolerating her treatments and ultrafiltration well. Her fistula is in good use. Next treatment will be on Tuesday. 2. Diastolic congestive heart failure previously with fluid overload and now with improvement in volume status, which is principally regulated via hemodialysis. She continues on oral fluid restriction. 3. Recurrent ascites. The patient has been receiving weekly paracentesis. We will continue with paracentesis in the outpatient setting as well. 4. Anemia of end-stage renal disease. Hemoglobin is 10.1 which is optimal. She continues on Aranesp with dialysis. 5. Left gufbd-lwb-xycm amputation site infection. The patient has a wound Vac. She continues on Zyvox and is followed by vascular surgery and infectious disease.
--- NOTE | 2019-04-30 10:36 | IPNPDOC ---
Subjective Date Seen The patient was seen on 04/30/19. Subjective Chief Complaint/HPI . Patient went to hemodialysis unit for HD, offers no new complaints General: Denies: ROS Unobtainable, Chills, Night Sweats, Fatigue, Malaise, Normal Appetite, Other Symptoms Constitutional: Denies: Chills, Fever, Malaise, Night Sweats, Weakness, Fatigue, Weight Loss, Lethargy, Other Eyes: Denies: Pain, Vision change, Conjunctivae inflammation, Eyelid inflammation, Redness, Other ENT: Denies: Head Aches, Ear Pain, Dysphagia, Sinus Congestion, Post Nasal Drip, Sore Throat, Epistaxis, Other Symptoms Skin: Denies: Rash, Lesions, Jaundice, Bruising, Itching, Dry, Breakdown, Nail Changes, Other Pulmonary: Denies: Dyspnea, Cough, Pleuritic Chest Pain, Other Symptoms Cardiovascular: Denies: Chest Pain, Palpitations, Orthopnea, Paroxysmal Noc. Dyspnea, Edema, Lt Headedness, Other Symptoms Gastrointestinal: Denies: Nausea, Vomiting, Abdominal Pain, Diarrhea, Constipation, Melena, Hematochezia, Other Symptoms Genitourinary: Denies: Dysuria, Frequency, Incontinence, Hematuria, Retention, Other Symptoms Hematologic: Denies: Bruising, Bleeding Excessively, Petecchia, Purpura, Enlarged Lymph Nodes, Other Hematologic Endocrine: Denies: Polydipsia, Polyphagia, Polyuria, Heat Intolerance, Cold Intolerance, Other Endocrine Sx Musculoskeletal: Denies: Neck Pain, Back Pain, Shoulder Pain, Arm Pain, Hand Pain, Leg Pain, Foot Pain, Joint Pain, Muscle Pain, Spasms, Other Symptoms Neurological: Denies: Weakness, Numbness, Incoordination, Change in speech, Confusion, Seizures, Other Symptoms Psych: Denies: Mood Normal, Anxiety, Depression, Memory Issues, Thoughts of Self Harm, Anger, Thoughts of Harming Other, Other Psych Objective Physical Examination General Exam: Positive: Alert, Cooperative Neck Exam: Positive: Supple Chest Exam: Positive: Clear to auscultation, Normal air movement Heart Exam: Positive: Rate Normal, Normal S1, Normal S2 Abdomen Exam: Positive: Normal bowel sounds, Soft, Tenderness Extremity Exam: Positive: Other (left BKA) Psych Exam: Positive: Mental status NL, Mood NL Assessment /Plan Problems (1) Amputation stump infection Problem Text: Non Healing Left BKA Further, as per vascular surgery's recommendations including dressing Wound VAC placed by Dr. Estrella Continue by mouth antibiotics Discussed with the case management possible transfer back to [facility] home with home care Continue present medications and care (2) End-stage renal disease needing dialysis Status: Chronic Problem Text: ESRD -renal diet Dr. Moore's follow-up noted and appreciated Continue HD Tuesday, Tuesday, Tuesday Received HD today tolerated very well (3) Diastolic congestive heart failure Status: Chronic Problem Text: Diastolic Heart Failure Stable under control Plan/VTE VTE Prophylaxis Ordered?: Yes VS, I&O, 24H, Fishbone Vital Signs/I&O Vital Signs Date Time Temp Pulse Resp B/P (MAP) Pulse Ox O2 Delivery O2 Flow Rate FiO2 04/30/19 07:45 79 122/57 04/30/19 06:00 97.8 17 93 04/30/19 02:00 2.0 04/28/19 09:30 100 I&O- Last 24 Hours up to 6 AM 04/30/19 05:59 Intake Total 900 ml Output Total 0 ml Balance 900 ml Laboratory Data 24H LABS Laboratory Tests 2 04/29/19 11:38: Bedside Glucose (Misc Panel) 166H 04/29/19 16:47: Bedside Glucose (Misc Panel) 207H 04/29/19 20:40: Bedside Glucose (Misc Panel) 252H 04/30/19 05:44: Bedside Glucose (Misc Panel) 213H SHAGGY MASON MD Apr 30, 2019 10:36
[2019-04-30 10:50] LABS: HEMATOCRIT 29.9 % (36.0-47.0); HEMOGLOBIN 9.4 g/dl (12.0-15.5); MEAN CORPUSCULAR HEMOGLOBIN 30.7 pg (27.0-33.0); MEAN CORPUSCULAR HGB CONC 31.4 g/dl (32.0-36.5); MEAN CORPUSCULAR VOLUME 97.7 fl (80.0-96.0); PLATELET COUNT, AUTOMATED 125 10^3/uL (150-450); RED BLOOD COUNT 3.06 10^6/uL (4.00-5.40); WHITE BLOOD COUNT 11.6 10^3/uL (4.0-10.0)
[2019-04-30 10:56] LABS: CALCIUM LEVEL 7.4 MG/DL (8.8-10.2); CREATININE FOR GFR 5.73 MG/DL (0.55-1.30); GLOMERULAR FILTRATION RATE 7.8 (>39); POTASSIUM SERUM 4.8 MEQ/L (3.5-5.1)
--- NOTE | 2019-04-30 12:48 | IPNPDOC ---
Date Seen The patient was seen on 04/30/19. 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 Denies any fevers, chills, weakness, fatigue, Headache, Chest Pain, Shortness of breath, cough, palpitations, abdominal pain, N/V/D or changes in bowel or bladder habits. Medical History HFpEF, grade II diastolic dysfxn, moderate LVH, mild pulm art HTN 09/14 echo Cirrhosis with hx metabolic encephalopathy, undergoes paracentesis every 2 weeks, S/P paracentesis 04/16/19. 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 Left arm AV fistula. Appendectomy. Hysterectomy. Bilateral cataracts. PE: GEN: 68 yo F, appears stated age. No acute distress. Alert. HEENT: Normocephalic, atraumatic. Moist mucous membranes. CHEST: Regular rate and rhythm, +S1, +S2 LUNGS: Clear to auscultation bilaterally. No wheezes, rales, or rhonchi. ABD: Round, distended, nontender. EXT: S/P BKA LLE, wound vac in place. NEURO: Alert and oriented x 3. No focal deficits appreciated. 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 Patient is afebrile. WBC 11.[address] Fontanez following, currently Zyvox. WC 04/21/19 Organism 1 ENTEROCOCCUS FAECIUM (VRE) QUANTITY OF GROWTH MODERATE Organism 2 STREPTOCOCCUS UBERIS QUANTITY OF GROWTH MODERATE Continue wound vac, with changes MWF. VS, I&O, 24H, Fishbone Vital Signs/I&O Vital Signs Date Time Temp Pulse Resp B/P (MAP) Pulse Ox O2 Delivery O2 Flow Rate FiO2 04/30/19 07:45 79 122/57 04/30/19 06:00 97.8 17 93 04/30/19 02:00 2.0 04/28/19 09:30 100 I&O- Last 24 Hours up to 6 AM 04/30/19 06:00 Intake Total 960 ml Output Total 0 ml Balance 960 ml Laboratory Data 24H LABS Laboratory Tests 2 04/29/19 16:47: Bedside Glucose (Misc Panel) 207H 04/29/19 20:40: Bedside Glucose (Misc Panel) 252H 04/30/19 05:44: Bedside Glucose (Misc Panel) 213H 04/30/19 09:14: Nucleated Red Blood Cells % (auto) 0.0, Anion Gap 13, Glomerular Filtration Rate 7.8L, Blood Urea Nitrogen 86H, Creatinine 5.73H, Sodium Level 135L, Potassium Level 4.8, Chloride Level 101, Carbon Dioxide Level 21, Calcium Level 7.4L CBC/BMP Laboratory Tests 04/30/19 09:14 Red Blood Count 3.06 L, Mean Corpuscular Volume 97.7 H, Mean Corpuscular Hemoglobin 30.7, Mean Corpuscular Hemoglobin Concent 31.4 L, Red Cell Dist ribution Width 18.6 H, Calcium Level 7.4 L Trini Vieira Apr 30, 2019 12:48
--- NOTE | 2019-04-30 13:34 | IPN ---
DATE OF SERVICE: 04/30/2019 SUBJECTIVE: Dalila is seen and examined this morning in the hemodialysis unit receiving her treatment. She complains of feeling warm and restless. She is for paracentesis later this afternoon. She otherwise has had no new complaints. Vital signs: Temperature 97.8, pulse 81, respiratory rate 17, blood pressure 113/58, saturating 93%. Intake yesterday was 900. Dialysis goal removal today is 1.5-2 liters. Weight in the bed scale today 73.9 kg. General: The patient is seen on hemodialysis receiving her maintenance treatment somewhat restless but in no distress, awake, alert, oriented. Extraocular muscles are intact. Tongue is moist. Neck is supple. Jugular veins are not elevated. Cardiac: S1, S2, regular rate and rhythm. Lungs were clear to auscultation bilaterally. No crackle, rale or wheeze. Abdomen is soft and nontender. There is ascitic fluid in G-tube. The left upper extremity fistula is presently in use. The left mrxbl-okc-depe amputation site has a wound vacuum-assisted closure (VAC). The right lower extremity has trace edema. Neurologic: She is at baseline mentation, oriented times three. LABS: White count 11.6, hemoglobin 9.4, platelets 125. Sodium 135, potassium 4.8. INPATIENT MEDICATIONS: Reviewed by myself and no change from prior. PROBLEMS: 1. End-stage renal disease on hemodialysis on Tuesday, Tuesday, Tuesday schedule. Volume status has improved very nicely over the course of this admission. I am discontinuing albumin with hemodialysis and we will see how she does with her treatment today without albumin support. Her fistula is in good use. Her electrolytes are acceptable. 2. Diastolic congestive heart failure previously with fluid overload and now with an improvement in her volume status, which is principally regulated via hemodialysis. Continue on oral fluid restriction as an outpatient. She is chronically volume overloaded due to noncompliance with both fluid intake and with her hemodialysis treatments. 3. Recurrent ascites. She is for paracentesis later today, and I have ordered 25 grams of 25% albumin with paracentesis given that her most recent serum albumin was low at only 2.0. 4. Anemia of end-stage renal disease. Hemoglobin is 9.4 today, and she continues on Aranesp with her dialysis treatment. 5. Left yycuo-zsu-oxcw amputation site infection. She has a wound VAC. She continues on antibiotics (Zyvox) and is followed by vascular surgery and infectious disease. I do note that her white count has bumped up. She is afebrile.
[2019-04-30] MEDS: PERCOCET 5MG/325MG TAB PO PRN (13:48)
[2019-04-30 14:00] VITALS: BP 146/68
[2019-04-30] MEDS: ACETAMINOPHEN TAB 650MG DOSE (2X325MG) PO PRN (16:47)
[2019-04-30 18:00] VITALS: BP 132/63
[2019-04-30] MEDS: LOPERAMIDE 2 MG CAP PO PRN (18:03)
--- NOTE | 2019-04-30 18:25 | IPN ---
DATE: 04/30/2019 Dalila is anxious to get home. She thinks she going home tomorrow, but she has a wound VAC in place that was changed today and I am not sure that she has a wound VAC ready to take home tomorrow. She is in the process of moving to a house in [place] and needs to talk to the agent that is showing her the house. LABORATORY DATA: White count is 11.6, hemoglobin 9.4, hematocrit 29.9, platelets 125. Sodium 135, potassium 4.8, chloride 101, bicarbonate 21, BUN 86, creatinine 5.7, glucose to 125. MEDICATIONS: - linezolid 600 mg by mouth twice a day started on 04/26/2019, currently day number day #4. On physical exam, ascites. HEART: Normal S1, S2. Distant. Lungs: Clear. ABDOMEN: Morbidly obese, soft, nontender. EXTREMITIES: Left tfjel-pxq-pzks amputation (BKA) with wound VAC in place. No edema of the right leg. IMPRESSION: 1. 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 Monitor for thrombocytopenia while on linezolid. Her platelets have dropped from 167-125 as well as anemia. 2. End-stage renal disease on hemodialysis. 3. Liver cirrhosis. Patient is scheduled for a paracentesis tomorrow. PLAN: Please obtain prior authorization for linezolid for 10 days. Continue with wound VAC. Order wound for her discharge. Patient is really anxious to get home.
[2019-04-30] MEDS: SIMVASTATIN 20 MG TAB PO SCH (21:28)
[2019-04-30] MEDS: rOPINIRole 1MG TAB PO SCH (21:28)
[2019-04-30 22:00] VITALS: BP 158/70
[2019-05-01 02:00] VITALS: BP 136/64
[2019-05-01] MEDS: PERCOCET 5MG/325MG TAB PO PRN ×3 (02:32→23:26)
[2019-05-01] MEDS: LEVOTHYROXINE 125MCG TABLET (0.125MG) PO SCH (05:15)
[2019-05-01 06:00] VITALS: BP 140/72
[2019-05-01] MEDS: IPRATROPIUM 0.5MG/ALBUTEROL 2.5MG INH SOL UD 3ML (DUONEB)(J7620) NEB SCH ×4 (07:29→19:57)
[2019-05-01] MEDS: DULoxetine 30 MG CAP (CYMBALTA) PO SCH (08:57)
[2019-05-01] MEDS: HumaLOG INSULIN (NovoLOG) PER UNIT SC SCH ×4 (08:57→21:00)
[2019-05-01] MEDS: LINEZOLID 600MG TABLET (ZYVOX) PO SCH ×2 (08:57→21:26)
[2019-05-01] MEDS: CALCIUM CARBONATE 500 MG CHEW U/D PO SCH ×3 (08:57→17:52)
[2019-05-01] MEDS: GABAPENTIN 300 MG CAP PO SCH ×2 (08:58→21:27)
[2019-05-01] MEDS: PANTOPRAZOLE 40MG TAB (PROTONIX) PO SCH (08:58)
[2019-05-01] MEDS: METOPROLOL TART 12.5 MG PER 1/2 TAB PO SCH ×2 (08:58→21:27)
[2019-05-01] MEDS: LOPERAMIDE 2 MG CAP PO PRN ×2 (08:58→23:26)
[2019-05-01] MEDS: BACITRACIN OINT 30GM TOP SCH (08:59)
[2019-05-01] MEDS: LEVEMIR (INSULIN DETEMIR) 1 UNITS/0.01ML SC SCH ×2 (08:59→21:26)
[2019-05-01 10:00] VITALS: BP 131/65
--- NOTE | 2019-05-01 11:00 | IPNPDOC ---
Date Seen The patient was seen on 05/01/19. 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 Pt is anxious for D/C. No other verbalized complaints. Denies any fevers, chills, weakness, fatigue, Headache, Chest Pain, Shortness of breath, cough, palpitations, abdominal pain, N/V/D or changes in bowel or bladder habits. Medical History HFpEF, grade II diastolic dysfxn, moderate LVH, mild pulm art HTN 09/14 echo Cirrhosis with hx metabolic encephalopathy, undergoes paracentesis every 2 weeks, S/P paracentesis 04/16/19. 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 Left arm AV fistula. Appendectomy. Hysterectomy. Bilateral cataracts. PE: GEN: 68 yo F, appears stated age. No acute distress. Alert. HEENT: Normocephalic, atraumatic. Moist mucous membranes. CHEST: Regular rate and rhythm, +S1, +S2 LUNGS: Clear to auscultation bilaterally. No wheezes, rales, or rhonchi. ABD: Round, distended, nontender. EXT: S/P BKA LLE, wound vac in place. NEURO: Alert and oriented x 3. No focal deficits appreciated. 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 Patient is afebrile. No new labs today. Dr Fontanez following, currently Zyvox recommended. Ensure this is covered for D/C . Continue wound vac, with changes MWF. Was changed yesterday. Will need to ensure wound vac is set up for home with Home care services. PT/OT/ARU screen pending . VS, I&O, 24H, Fishbone Vital Signs/I&O Vital Signs Date Time Temp Pulse Resp B/P (MAP) Pulse Ox O2 Delivery O2 Flow Rate FiO2 05/01/19 10:00 97.2 81 14 131/65 (87) 99 04/30/19 02:00 2.0 04/28/19 09:30 100 I&O- Last 24 Hours up to 6 AM 05/01/19 06:00 Intake Total 520 ml Output Total 1300 ml Balance -780 ml Laboratory Data 24H LABS Laboratory Tests 2 04/30/19 13:53: Bedside Glucose (Misc Panel) 148H 04/30/19 16:48: Bedside Glucose (Misc Panel) 228H 04/30/19 20:07: Bedside Glucose (Misc Panel) 303H 05/01/19 05:59: Bedside Glucose (Misc Panel) 159H Trini Vieira May 01, 2019 11:00
[2019-05-01 15:00] VITALS: BP 162/52
--- NOTE | 2019-05-01 17:53 | IPNPDOC ---
Subjective Date Seen The patient was seen on 05/01/19. Subjective Chief Complaint/HPI The patient denies any pain or having any complaints. Only thing is that she wants to go home. She denies pain in the lower extremities. Denies a fever or chills. General: Denies: ROS Unobtainable, Chills, Night Sweats, Fatigue, Malaise, Normal Appetite, Other Symptoms Constitutional: Denies: Chills, Fever, Malaise, Night Sweats, Weakness, Fatigue, Weight Loss, Lethargy, Other Eyes: Denies: Pain, Vision change, Conjunctivae inflammation, Eyelid inflammation, Redness, Other ENT: Denies: Head Aches, Ear Pain, Dysphagia, Sinus Congestion, Post Nasal Drip, Sore Throat, Epistaxis, Other Symptoms Skin: Denies: Rash, Lesions, Jaundice, Bruising, Itching, Dry, Breakdown, Nail Changes, Other Pulmonary: Denies: Dyspnea, Cough, Pleuritic Chest Pain, Other Symptoms Cardiovascular: Denies: Chest Pain, Palpitations, Orthopnea, Paroxysmal Noc. Dyspnea, Edema, Lt Headedness, Other Symptoms Gastrointestinal: Denies: Nausea, Vomiting, Abdominal Pain, Diarrhea, Constipation, Melena, Hematochezia, Other Symptoms Genitourinary: Denies: Dysuria, Frequency, Incontinence, Hematuria, Retention, Other Symptoms Hematologic: Denies: Bruising, Bleeding Excessively, Petecchia, Purpura, Enlarged Lymph Nodes, Other Hematologic Endocrine: Denies: Polydipsia, Polyphagia, Polyuria, Heat Intolerance, Cold Intolerance, Other Endocrine Sx Musculoskeletal: Denies: Neck Pain, Back Pain, Shoulder Pain, Arm Pain, Hand Pain, Leg Pain, Foot Pain, Joint Pain, Muscle Pain, Spasms, Other Symptoms Neurological: Denies: Weakness, Numbness, Incoordination, Change in speech, Confusion, Seizures, Other Symptoms Psych: Denies: Mood Normal, Anxiety, Depression, Memory Issues, Thoughts of Self Harm, Anger, Thoughts of Harming Other, Other Psych Objective Physical Examination General Exam: Positive: Alert, Cooperative Neck Exam: Positive: Supple Chest Exam: Positive: Clear to auscultation, Normal air movement Heart Exam: Positive: Rate Normal, Normal S1, Normal S2 Abdomen Exam: Positive: Normal bowel sounds, Soft, Tenderness Extremity Exam: Positive: Other (left BKA with associated trace edema) Psych Exam: Positive: Mental status NL, Mood NL Assessment /Plan Problems (1) Amputation stump infection Problem Text: - s/p debrigement by vascular surgery. - Continue linezolid. - Wound vac will be set up, but the patient will need to have the replacement of the wound vac here in the hospital, and the functionality needs to be re- insured. - Although the patient wants to go home, unfortunately, she cannot go home. The patient understood it. - Dr. Estrella's team is following the patient. (2) End-stage renal disease needing dialysis Status: Chronic Problem Text: ESRD -renal diet Dr. Moore's follow-up noted and appreciated Continue HD Tuesday, Tuesday, Tuesday (3) Diastolic congestive heart failure Status: Chronic Problem Text: Diastolic Heart Failure Stable under control # Normocytic anemia - Likely anemia of chronic inflammation # Moderate protein calorie malnutrition - Continue to encourage PO intake. Plan/VTE VTE Prophylaxis Ordered?: Yes VS, I&O, 24H, Fishbone Vital Signs/I&O Vital Signs Date Time Temp Pulse Resp B/P (MAP) Pulse Ox O2 Delivery O2 Flow Rate FiO2 05/01/19 15:47 20 05/01/19 10:00 97.2 81 131/65 (87) 99 04/30/19 02:00 2.0 04/28/19 09:30 100 I&O- Last 24 Hours up to 6 AM 05/01/19 06:00 Intake Total 520 ml Output Total 1300 ml Balance -780 ml Laboratory Data 24H LABS Laboratory Tests 2 04/30/19 20:07: Bedside Glucose (Misc Panel) 303H 05/01/19 05:59: Bedside Glucose (Misc Panel) 159H 05/01/19 11:39: Bedside Glucose (Misc Panel) 209H 05/01/19 16:27: Bedside Glucose (Misc Panel) 271H TIO HARMAN MD May 01, 2019 17:53
--- NOTE | 2019-05-01 18:19 | REP ---
Ultrasound-guided paracentesis The procedure was performed under the direct supervision of Dr. Rivas. The risks and benefits of the procedure were explained to the patient and informed consent was obtained. The largest pocket of fluid was localized in the left flank using ultrasound guidance. The skin was prepped and draped in a sterile fashion. 1% lidocaine was used as a local anesthetic. Using ultrasound guidance an 8-[place] multi side-hole catheter was inserted using trocar technique. 3550 ml of jazmin was withdrawn and discarded. The patient tolerated the procedure well and there were no immediate complications. After the appropriate amount of monitored convalescence the patient was discharged from the department. Reviewed by ANTONIO Curiel 05/01/2019 04:15 P Electronically Signed by Aureliano Rivas MD 05/01/2019 06:11 P
[2019-05-01 19:20] VITALS: BP 132/65
[2019-05-01] MEDS: SIMVASTATIN 20 MG TAB PO SCH (21:26)
[2019-05-01] MEDS: rOPINIRole 1MG TAB PO SCH (21:27)
[2019-05-01 22:00] VITALS: BP 131/66
--- NOTE | 2019-05-01 22:05 | IPN ---
DATE: 05/01/2019 SUBJECTIVE: Dalila is seen and examined this morning at the bedside. She is status post paracentesis today with removal of 3.5 liters of fluid. She denies any new complaints or issues. She wants to go home. Vital signs: Temperature 98.0, pulse 84, respiratory rate 18, blood pressure 132/65, saturating 98% on room air. Intake yesterday was 600, dialysis yesterday removed 1300, weight on the bed scale today is 73 kg. General: The patient is seen lying in bed, awake, alert, oriented, in no distress. Extraocular muscles are intact. Tongue is moist. Neck is supple. Jugular veins are mildly elevated. Cardiac: S1, S2, regular rate and rhythm. Lungs are clear to auscultation bilaterally. No crackle, rale or wheeze. Abdomen is soft and nontender. The ascitic fluid is less. The left upper extremity fistula is patent with thrill and bruit. The lower extremities show a left [id number] amputation with a wound VAC and the right lower extremity shows trace edema. Neurologic: She is oriented times three, at baseline mentation. Psychiatric: Appropriate mood and affect. LABORATORY DATA: White count 11.6, hemoglobin 9.4, sodium 135. INPATIENT MEDICATIONS: Reviewed by myself and no change from prior. PROBLEMS: 1. End-stage renal disease on hemodialysis Tuesday, Tuesday, Tuesday schedule. Volume status has improved nicely over the course of this admission. Her next treatment will be on Tuesday. Her fistula is in good use. Her electrolytes are acceptable. 2. Recurrent ascites. She is status post paracentesis today. She had 3.5 liters of fluid removed. She will receive paracentesis as an outpatient as well. 3. Diastolic congestive heart failure previously with decompensation and now with an improvement in her volume status. Continue oral fluid restriction and continue with ultrafiltration and fluid removal with the hemodialysis. 4. Anemia of end-stage renal disease. She continues on Aranesp with her hemodialysis treatments.
[2019-05-02 02:00] VITALS: BP 128/64
[2019-05-02 06:00] VITALS: BP 139/72
[2019-05-02] MEDS: LEVOTHYROXINE 125MCG TABLET (0.125MG) PO SCH (06:48)
[2019-05-02] MEDS: GABAPENTIN 300 MG CAP PO SCH ×2 (06:49→21:57)
[2019-05-02] MEDS: CALCIUM CARBONATE 500 MG CHEW U/D PO SCH ×3 (06:49→17:52)
[2019-05-02] MEDS: DULoxetine 30 MG CAP (CYMBALTA) PO SCH (06:49)
[2019-05-02] MEDS: LINEZOLID 600MG TABLET (ZYVOX) PO SCH ×2 (06:50→21:57)
[2019-05-02] MEDS: PANTOPRAZOLE 40MG TAB (PROTONIX) PO SCH (06:50)
[2019-05-02] MEDS: METOPROLOL TART 12.5 MG PER 1/2 TAB PO SCH ×2 (06:50→21:00)
[2019-05-02 07:13] LABS: HEMATOCRIT 33.6 % (36.0-47.0); HEMOGLOBIN 10.4 g/dl (12.0-15.5); MEAN CORPUSCULAR HEMOGLOBIN 30.3 pg (27.0-33.0); PLATELET COUNT, AUTOMATED 160 10^3/uL (150-450); RED BLOOD COUNT 3.43 10^6/uL (4.00-5.40)
[2019-05-02 07:34] LABS: ALBUMIN 1.9 GM/DL (3.2-5.2); BILIRUBIN,TOTAL 0.4 MG/DL (0.2-1.0); CALCIUM LEVEL 7.1 MG/DL (8.8-10.2); CREATININE FOR GFR 4.94 MG/DL (0.55-1.30); GLOMERULAR FILTRATION RATE 9.2 (>39); POTASSIUM SERUM 4.6 MEQ/L (3.5-5.1); TOTAL PROTEIN 6.5 GM/DL (6.4-8.2)
[2019-05-02] MEDS ORDERED: HEPARIN 1,000 UNITS/ML 10ML VIAL (FOR RADIOLOGY& DIALYSIS ONLY) IV ONE (08:00)
[2019-05-02] MEDS ORDERED: LIDOCAINE 1% SDV 5 ML VIAL SQ ONE (08:00)
[2019-05-02] MEDS: PERCOCET 5MG/325MG TAB PO PRN ×3 (08:01→21:58)
[2019-05-02] MEDS: HumaLOG INSULIN (NovoLOG) PER UNIT SC SCH ×4 (08:02→21:58)
[2019-05-02] MEDS: LEVEMIR (INSULIN DETEMIR) 1 UNITS/0.01ML SC SCH ×2 (08:02→21:58)
[2019-05-02] MEDS: IPRATROPIUM 0.5MG/ALBUTEROL 2.5MG INH SOL UD 3ML (DUONEB)(J7620) NEB SCH ×3 (09:00→21:00)
--- NOTE | 2019-05-02 10:00 | IPNPDOC ---
Date Seen The patient was seen on 05/02/19. 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 Pt is in HD currently. Anxious for D/C. No other verbalized complaints. Denies any fevers, chills, weakness, fatigue, Headache, Chest Pain, Shortness of breath, cough, palpitations, abdominal pain, N/V/D or changes in bowel or bladder habits. Medical History HFpEF, grade II diastolic dysfxn, moderate LVH, mild pulm art HTN 09/14 echo Cirrhosis with hx metabolic encephalopathy, undergoes paracentesis every 2 weeks, S/P paracentesis 04/16/19. 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 Left arm AV fistula. Appendectomy. Hysterectomy. Bilateral cataracts. PE: GEN: 68 yo F, appears stated age. No acute distress. Alert. HEENT: Normocephalic, atraumatic. Moist mucous membranes. CHEST: Regular rate and rhythm, +S1, +S2 LUNGS: Clear to auscultation bilaterally. No wheezes, rales, or rhonchi. ABD: Round, distended, nontender. EXT: S/P BKA LLE, wound vac in place. NEURO: Alert and oriented x 3. No focal deficits appreciated. 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 Patient is afebrile. WBC 9.0. Dr Fontanez following, currently Zyvox recommended. PFS to assist to ensure this is covered for D/C . Continue wound vac, with changes MWF. Was changed yesterday. Wound vac to be set up for home with Home care services. PFS assisting. PT/OT. VS, I&O, 24H, Fishbone Vital Signs/I&O Vital Signs Date Time Temp Pulse Resp B/P (MAP) Pulse Ox O2 Delivery O2 Flow Rate FiO2 05/02/19 08:01 20 05/02/19 06:50 81 139/77 05/02/19 06:00 96.0 100 04/30/19 02:00 2.0 04/28/19 09:30 100 I&O- Last 24 Hours up to 6 AM 05/02/19 06:00 Intake Total 640 ml Balance 640 ml Laboratory Data 24H LABS Laboratory Tests 2 05/01/19 11:39: Bedside Glucose (Misc Panel) 209H 05/01/19 16:27: Bedside Glucose (Misc Panel) 271H 05/01/19 19:56: Bedside Glucose (Misc Panel) 211H 05/02/19 06:52: Bedside Glucose (Misc Panel) 175H 05/02/19 07:00: Nucleated Red Blood Cells % (auto) 0.0, Anion Gap 11, Glomerular Filtration Rate 9.2L, Blood Urea Nitrogen 71H, Creatinine 4.94H, Sodium Level 136, Potassium Level 4.6, Chloride Level 99, Carbon Dioxide Level 26, Calcium Level 7.1L, Aspartate Amino Transf (AST/SGOT) 28, Alanine Aminotransferase (ALT/SGPT) 32, Alkaline Phosphatase 495H, Total Bilirubin 0.4, Total Protein 6.5, Albumin 1.9L, Albumin/Globulin Ratio 0.41L CBC/BMP Laboratory Tests 05/02/19 07:00 Red Blood Count 3.43 L, Mean Corpuscular Volume 98.0 H, Mean Corpuscular Hemoglobin 30.3, Mean Corpuscular Hemoglobin Concent 31.0 L, Red Cell Distribution Width 18.6 H, Calcium Level 7.1 L, Aspartate Amino Transf (AST/SGOT) 28, Alanine Aminotransferase (ALT/SGPT) 32, Alkaline Phosphatase 495 H, Total Bilirubin 0.4, Total Protein 6.5, Albumin 1.9 L Trini Vieira May 02, 2019 10:00
--- NOTE | 2019-05-02 12:28 | IPN ---
DATE: 05/02/2019 SUBJECTIVE: Dalila is seen and examined this morning at the bedside in the hemodialysis unit receiving her treatment. She denies any overnight events or issues. She is anxious to go home. She tolerated paracentesis yesterday without any issues. Temperature 96.0, pulse 81, respiratory rate 16, blood pressure 139/72, saturating 100% on room air. Intake yesterday was 740, goal fluid removal with dialysis today is 1.5 liters. Weight in the bed scale today is 71.4 kg. General: The patient is seen in the hemodialysis unit receiving her treatment, awake, alert, oriented, comfortable, in no acute distress. Extraocular muscles are intact. Tongue is moist. Neck is supple. Jugular veins are mildly elevated. Heart sounds are regular, S1 and S2. There is trace to 1+ edema in the peripheries. Lungs are clear to auscultation bilaterally. No crackle, rale or wheeze. Abdomen is soft and distended. Some ascitic fluid has reaccumulated. The extremities show a left [id number]-umr-[id number] amputation with a wound Vac. The left upper extremity fistula is presently in use. The right lower extremity shows trace to 1+ edema. Neurologic: She is oriented times three. No focal deficits. LABORATORY DATA: White count 9.0, hemoglobin 10.4, sodium 136, potassium 4.6, bicarbonate 26. INPATIENT MEDICATIONS: Reviewed by myself and no change from prior. PROBLEMS: 1. End-stage renal disease on hemodialysis on Tuesday, Tuesday, Tuesday schedule. The patient is being dialyzed today. She is tolerating her treatments well. Her volume status is acceptable. Her fistula is in good use. Her electrolytes are reasonable. No changes are being made to her chronic dialysis prescription. 2. Recurrent ascites. She had a paracentesis yesterday, 3.5 liters of fluid were removed. She will receive paracentesis in the outpatient setting as well with albumin infusion afterwards. 3. Diastolic congestive heart failure, previously with decompensation, and now with improvement in her volume status over the course of this admission. Continue oral fluid restriction. She is advised to be compliant with hemodialysis and fluid restriction in the outpatient setting as well. 4. Anemia of end-stage renal disease. This is improving and the patient continues on Aranesp with her hemodialysis treatment. 5. Hypertension. Blood pressures are acceptable on low dose of metoprolol and no changes are being made.
[2019-05-02 14:00] VITALS: BP 126/64
[2019-05-02] MEDS: BACITRACIN OINT 30GM TOP SCH (15:02)
[2019-05-02] MEDS: rOPINIRole 1MG TAB PO SCH (21:57)
[2019-05-02] MEDS: SIMVASTATIN 20 MG TAB PO SCH (21:57)
[2019-05-02 22:00] VITALS: BP 100/55
--- NOTE | 2019-05-02 23:17 | IPNPDOC ---
Subjective Date Seen The patient was seen on 05/02/19. Subjective Chief Complaint/HPI The patient has no complaints except for wishing to go home. Denies pain, fever, chills, nausea, vomiting, or diarrhea. Denies chest pain or palpitation. General: Denies: ROS Unobtainable, Chills, Night Sweats, Fatigue, Malaise, Normal Appetite, Other Symptoms Constitutional: Denies: Chills, Fever, Malaise, Night Sweats, Weakness, Fatigue, Weight Loss, Lethargy, Other Eyes: Denies: Pain, Vision change, Conjunctivae inflammation, Eyelid inflammation, Redness, Other ENT: Denies: Head Aches, Ear Pain, Dysphagia, Sinus Congestion, Post Nasal Drip, Sore Throat, Epistaxis, Other Symptoms Skin: Denies: Rash, Lesions, Jaundice, Bruising, Itching, Dry, Breakdown, Nail Changes, Other Pulmonary: Denies: Dyspnea, Cough, Pleuritic Chest Pain, Other Symptoms Cardiovascular: Denies: Chest Pain, Palpitations, Orthopnea, Paroxysmal Noc. Dyspnea, Edema, Lt Headedness, Other Symptoms Gastrointestinal: Denies: Nausea, Vomiting, Abdominal Pain, Diarrhea, Constipation, Melena, Hematochezia, Other Symptoms Genitourinary: Denies: Dysuria, Frequency, Incontinence, Hematuria, Retention, Other Symptoms Hematologic: Denies: Bruising, Bleeding Excessively, Petecchia, Purpura, Enlarged Lymph Nodes, Other Hematologic Endocrine: Denies: Polydipsia, Polyphagia, Polyuria, Heat Intolerance, Cold Intolerance, Other Endocrine Sx Musculoskeletal: Denies: Neck Pain, Back Pain, Shoulder Pain, Arm Pain, Hand Pain, Leg Pain, Foot Pain, Joint Pain, Muscle Pain, Spasms, Other Symptoms Neurological: Denies: Weakness, Numbness, Incoordination, Change in speech, Confusion, Seizures, Other Symptoms Psych: Denies: Mood Normal, Anxiety, Depression, Memory Issues, Thoughts of Self Harm, Anger, Thoughts of Harming Other, Other Psych Objective Physical Examination General Exam: Positive: Alert, Cooperative Neck Exam: Positive: Supple Chest Exam: Positive: Clear to auscultation, Normal air movement Heart Exam: Positive: Rate Normal, Normal S1, Normal S2 Abdomen Exam: Positive: Normal bowel sounds, Soft, Tenderness Extremity Exam: Positive: Other (left BKA with associated trace edema) Psych Exam: Positive: Mental status NL, Mood NL Assessment /Plan Problems (1) Amputation stump infection Problem Text: - s/p debrigement by vascular surgery. - Continue linezolid. - Wound vac will be set up, hopefully, she could be discharged tomorrow after wound vac is insured to be well placed. - Dr. Estrella's team is following the patient. (2) End-stage renal disease needing dialysis Status: Chronic Problem Text: ESRD -renal diet Dr. Moore's follow-up noted and appreciated Continue HD Tuesday, Tuesday, Tuesday. Had HD today. (3) Diastolic congestive heart failure Status: Chronic Problem Text: Diastolic Heart Failure Stable under control # Normocytic anemia - Likely anemia of chronic inflammation # Moderate protein calorie malnutrition - Continue to encourage PO intake. # Recurrent ascites from decompensated liver cirrhosis - She had 3.5 L paracentesis yesterday. Continue to have paracentesis as an outpatient. Plan/VTE VTE Prophylaxis Ordered?: Yes VS, I&O, 24H, Fishbone Vital Signs/I&O Vital Signs Date Time Temp Pulse Resp B/P (MAP) Pulse Ox O2 Delivery O2 Flow Rate FiO2 05/02/19 22:00 97.6 88 18 100/55 (70) 99 04/30/19 02:00 2.0 04/28/19 09:30 100 I&O- Last 24 Hours up to 6 AM 05/02/19 06:00 Intake Total 640 ml Balance 640 ml Laboratory Data 24H LABS Laboratory Tests 2 05/02/19 06:52: Bedside Glucose (Misc Panel) 175H 05/02/19 07:00: Nucleated Red Blood Cells % (auto) 0.0, Anion Gap 11, Glomerular Filtration Rate 9.2L, Blood Urea Nitrogen 71H, Creatinine 4.94H, Sodium Level 136, Potassium Level 4.6, Chloride Level 99, Carbon Dioxide Level 26, Calcium Level 7.1L, Aspartate Amino Transf (AST/SGOT) 28, Alanine Aminotransferase (ALT/SGPT) 32, Alkaline Phosphatase 495H, Total Bilirubin 0.4, Total Protein 6.5, Albumin 1.9L, Albumin/Globulin Ratio 0.41L 05/02/19 13:11: Bedside Glucose (Misc Panel) 147H 05/02/19 16:50: Bedside Glucose (Misc Panel) 240H 05/02/19 20:10: Bedside Glucose (Misc Panel) 310H CBC/BMP Laboratory Tests 05/02/19 07:00 Red Blood Count 3.43 L, Mean Corpuscular Volume 98.0 H, Mean Corpuscular Hemoglobin 30.3, Mean Corpuscular Hemoglobin Concent 31.0 L, Red Cell Distribution Width 18.6 H, Calcium Level 7.1 L, Aspartate Amino Transf (AST/SGOT) 28, Alanine Aminotransferase (ALT/SGPT) 32, Alkaline Phosphatase 495 H, Total Bilirubin 0.4, Total Protein 6.5, Albumin 1.9 L TIO HARMAN MD May 02, 2019 23:17
[2019-05-03 02:00] VITALS: BP 124/58
[2019-05-03 06:00] VITALS: BP 144/66
[2019-05-03] MEDS: LEVOTHYROXINE 125MCG TABLET (0.125MG) PO SCH (06:03)
[2019-05-03] MEDS: PERCOCET 5MG/325MG TAB PO PRN ×2 (06:04→12:25)
[2019-05-03 06:25] LABS: HEMATOCRIT 33.6 % (36.0-47.0); HEMOGLOBIN 10.2 g/dl (12.0-15.5); MEAN CORPUSCULAR HGB CONC 30.4 g/dl (32.0-36.5); MEAN CORPUSCULAR VOLUME 98.8 fl (80.0-96.0); PLATELET COUNT, AUTOMATED 155 10^3/uL (150-450); WHITE BLOOD COUNT 8.6 10^3/uL (4.0-10.0)
[2019-05-03 06:56] LABS: ALBUMIN 1.9 GM/DL (3.2-5.2); BILIRUBIN,TOTAL 0.5 MG/DL (0.2-1.0); CALCIUM LEVEL 7.2 MG/DL (8.8-10.2); CREATININE FOR GFR 3.61 MG/DL (0.55-1.30); GLOMERULAR FILTRATION RATE 13.3 (>39); POTASSIUM SERUM 3.8 MEQ/L (3.5-5.1); TOTAL PROTEIN 6.9 GM/DL (6.4-8.2)
[2019-05-03] MEDS: IPRATROPIUM 0.5MG/ALBUTEROL 2.5MG INH SOL UD 3ML (DUONEB)(J7620) NEB SCH ×2 (08:06→11:20)
[2019-05-03 08:13] VITALS: BP 144/66
[2019-05-03] MEDS: LINEZOLID 600MG TABLET (ZYVOX) PO SCH (08:13)
[2019-05-03] MEDS: GABAPENTIN 300 MG CAP PO SCH (08:13)
[2019-05-03] MEDS: CALCIUM CARBONATE 500 MG CHEW U/D PO SCH ×2 (08:13→13:52)
[2019-05-03] MEDS: LEVEMIR (INSULIN DETEMIR) 1 UNITS/0.01ML SC SCH (08:13)
[2019-05-03] MEDS: PANTOPRAZOLE 40MG TAB (PROTONIX) PO SCH (08:13)
[2019-05-03] MEDS: METOPROLOL TART 12.5 MG PER 1/2 TAB PO SCH (08:13)
[2019-05-03] MEDS: DULoxetine 30 MG CAP (CYMBALTA) PO SCH (08:13)
[2019-05-03] MEDS: HumaLOG INSULIN (NovoLOG) PER UNIT SC SCH ×2 (08:14→13:53)
[2019-05-03] MEDS: BACITRACIN OINT 30GM TOP SCH (08:14)
[2019-05-03 09:01] LABS: C REACTIVE PROTEIN QUANTITATIV 13.3 MG/DL (0.00-0.30)
--- NOTE | 2019-05-03 09:08 | IPNPDOC ---
Date Seen The patient was seen on 05/03/19. 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 Pt is anxious for D/C. No other verbalized complaints. Denies any fevers, chills, weakness, fatigue, Headache, Chest Pain, Shortness of breath, cough, palpitations, abdominal pain, N/V/D or changes in bowel or bladder habits. Medical History HFpEF, grade II diastolic dysfxn, moderate LVH, mild pulm art HTN 09/14 echo Cirrhosis with hx metabolic encephalopathy, undergoes paracentesis every 2 weeks, S/P paracentesis 04/16/19. 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 Left arm AV fistula. Appendectomy. Hysterectomy. Bilateral cataracts. PE: GEN: 68 yo F, appears stated age. No acute distress. Alert. HEENT: Normocephalic, atraumatic. Moist mucous membranes. CHEST: Regular rate and rhythm, +S1, +S2 LUNGS: Clear to auscultation bilaterally. No wheezes, rales, or rhonchi. ABD: Round, distended, nontender. EXT: S/P BKA LLE, wound vac in place. NEURO: Alert and oriented x 3. No focal deficits appreciated. 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 Patient is afebrile. WBC 8.6. Dr Fontanez following, currently [employer] recommended. PFS to assist to ensure this is covered for D/C . Continue wound vac, this will be changed prior to D/C today. Wound vac has been set up for home with Home care services. Pt should FU with Dr Estrella's office 7- 10 days on a day when wound vac can be removed in office then replaced by home nursing that day. Discussed with nursing. PT/OT has documented she would be safe for D/C with home services. VS, I&O, 24H, Fishbone Vital Signs/I&O Vital Signs Date Time Temp Pulse Resp B/P (MAP) Pulse Ox O2 Delivery O2 Flow Rate FiO2 05/03/19 08:13 90 144/66 05/03/19 06:34 20 05/03/19 06:00 97.8 98 04/30/19 02:00 2.0 04/28/19 09:30 100 I&O- Last 24 Hours up to 6 AM 05/03/19 06:00 Intake Total 870 ml Output Total 1500 ml Balance -630 ml Laboratory Data 24H LABS Laboratory Tests 2 05/02/19 13:11: Bedside Glucose (Misc Panel) 147H 05/02/19 16:50: Bedside Glucose (Misc Panel) 240H 05/02/19 20:10: Bedside Glucose (Misc Panel) 310H 05/03/19 05:09: Bedside Glucose (Misc Panel) 271H 05/03/19 06:03: Nucleated Red Blood Cells % (auto) 0.0, Anion Gap 11, Glomerular Filtration Rate 13.3L, Blood Urea Nitrogen 50H, Creatinine 3.61H, Sodium Level 136, Potassium Level 3.8, Chloride Level 98, Carbon Dioxide Level 27, Calcium Level 7.2L, Aspartate Amino Transf (AST/SGOT) 36, Alanine Aminotransferase (ALT/SGPT) 34, Alkaline Phosphatase 605H, Total Bilirubin 0.5, Total Protein 6.9, Albumin 1.9L, C-Reactive Protein, Quantitative 13.30H, Albumin/Globulin Ratio 0.38L CBC/BMP Laboratory Tests 05/03/19 06:03 Red Blood Count 3.40 L, Mean Corpuscular Volume 98.8 H, Mean Corpuscular Hemoglobin 30.0, Mean Corpuscular Hemoglobin Concent 30.4 L, Red Cell Distribution Width 18.6 H, Calcium Level 7.2 L, Aspartate Amino Transf (AST/SGOT) 36, Alanine Aminotransferase (ALT/SGPT) 34, Alkaline Phosphatase 605 H, Total Bilirubin 0.5, Total Protein 6.9, Albumin 1.9 L Trini Vieira May 03, 2019 09:08
[2019-05-03] MEDS ORDERED: METO1TAB87 PO (10:49)
[2019-05-03] MEDS: LOPERAMIDE 2 MG CAP PO PRN (12:25)
[2019-05-03] MEDS ORDERED: PERCOCET PO (12:44)
--- NOTE | 2019-05-03 15:19 | DS.PDOC ---
Discharge Summary General Date of Admission April 26, 2019 at 16:08 Date of Discharge 05/03/2019 Discharge Summary PROCEDURES PERFORMED DURING STAY: [None]. ADMITTING DIAGNOSES: 1. BKA complicated by infection. DISCHARGE DIAGNOSES: 1. Skin infection from BKA. COMPLICATIONS/CHIEF COMPLAINT: Left Bka. HISTORY OF PRESENT ILLNESS: . HOSPITAL COURSE: The patient was found to have amputation stump infection, s/p debrigement by vascular surgery. The bacteria are sensitive to linezolid. ID physician recommended linezolid. The wound vac was set up, so that she could get it at home. Dr. Estrella's team followed the patient. AlkPhos was slowly trending up, for which ID specialist was contacted. She recommended the continuation of linezolid. For ESRD, she continued to have HD MWF. For diastolic heart failure, it was stable and under control. For normocytic anemia, it is most likely anemia of chronic inflammation. We followed H/H, and no acute intervention was indicated. Her albumin was low, meeting moderate protein calorie malnutrition. We continued to encourage PO intake. For recurrent ascites from decompensated liver cirrhosis, she has had paracentesis. She will continue to have paracentesis as an outpatient. DISCHARGE MEDICATIONS: Please see below. ALLERGIES: Please see below. PHYSICAL EXAMINATION ON DISCHARGE: General Exam: Positive: Alert, Cooperative Neck Exam: Positive: Supple Chest Exam: Positive: Clear to auscultation, Normal air movement Heart Exam: Positive: Rate Normal, Normal S1, Normal S2 Abdomen Exam: Positive: Normal bowel sounds, Soft, Tenderness Extremity Exam: Positive: Other (left BKA with associated trace edema) Psych Exam: Positive: Mental status NL, Mood NL LABORATORY DATA: Please see below. DISCHARGE PLAN: She will follow her vascular surgeon and ID specialist as an outpatient. DISPOSITION: Home, Self-Care. The patient is medically stable to be discharged. Vital Signs/I&Os Vital Signs Date Time Temp Pulse Resp B/P (MAP) Pulse Ox O2 Delivery O2 Flow Rate FiO2 05/03/19 12:55 18 05/03/19 08:13 90 144/66 05/03/19 06:00 97.8 98 04/30/19 02:00 2.0 04/28/19 09:30 100 I&O- Last 24 Hours up to 6 AM 05/03/19 05:59 Intake Total 720 ml Output Total 1500 ml Balance -780 ml Laboratory Data Labs 24H Laboratory Tests 2 05/02/19 16:50: Bedside Glucose (Misc Panel) 240H 05/02/19 20:10: Bedside Glucose (Misc Panel) 310H 05/03/19 05:09: Bedside Glucose (Misc Panel) 271H 05/03/19 06:03: Nucleated Red Blood Cells % (auto) 0.0, Anion Gap 11, Glomerular Filtration Rate 13.3L, Blood Urea Nitrogen 50H, Creatinine 3.61H, Sodium Level 136, Potassium Level 3.8, Chloride Level 98, Carbon Dioxide Level 27, Calcium Level 7.2L, Aspartate Amino Transf (AST/SGOT) 36, Alanine Aminotransferase (ALT/SGPT) 34, Alkaline Phosphatase 605H, Total Bilirubin 0.5, Total Protein 6.9, Albumin 1.9L, C-Reactive Protein, Quantitative 13.30H, Albumin/Globulin Ratio 0.38L 05/03/19 13:01: Bedside Glucose (Misc Panel) 310H CBC/BMP Laboratory Tests 05/03/19 06:03 Red Blood Count 3.40 L, Mean Corpuscular Volume 98.8 H, Mean Corpuscular Hemoglobin 30.0, Mean Corpuscular Hemoglobin Concent 30.4 L, Red Cell Distrib ution Width 18.6 H, Calcium Level 7.2 L, Aspartate Amino Transf (AST/SGOT) 36, Alanine Aminotransferase (ALT/SGPT) 34, Alkaline Phosphatase 605 H, Total Bilirubin 0.5, Total Protein 6.9, Albumin 1.9 L FSBS Laboratory Tests Test 05/02/19 16:50 05/02/19 20:10 05/03/19 05:09 05/03/19 13:01 Range/Units Bedside Glucose (Misc Panel) 240 310 271 310 83-110 MG/DL Discharge Medications Scheduled Calcium Carbonate (Tums) 500 Mg Chw, 1,000 MG PO WM, (Reported) Clopidogrel Bisulfate (Plavix) 75 Mg Tab, 75 MG PO DAILY, (Reported) Duloxetine Hcl (Duloxetine HCl) 30 Mg Cap, 30 MG PO DAILY, (Reported) Gabapentin (Gabapentin) 300 Mg Capsule, 300 MG PO BID Insulin Lispro (Humalog) 100 Unit/Ml Inj, 1 DOSE SC AC, (Reported) PER SLIDING SCALE Levothyroxine Sodium (Synthroid) 125 Mcg Tab, 125 MCG PO DAILY, (Reported) Linezolid (Linezolid) 600 Mg Tablet, 600 MG PO BID Linezolid (Linezolid) 600 Mg Tablet, 600 MG PO BID Metoprolol Tartrate (Metoprolol Tartrate) 25 Mg Tablet, 12.5 MG PO BID Mineral Oil/Petrolatum,White (Hydrocerin Cream) 113 Gm Cream..g., 1 APLCT TOP DAILY, (Reported) APPLIES TO RIGHT LOWER EXTREMITIES Pantoprazole Sodium (Pantoprazole Sodium) 40 Mg Tab, 40 MG PO DAILY, (Reported) Ropinirole HCl (Ropinirole HCl) 2 Mg Tab, 4 MG PO BID, (Reported) Ropinirole HCl (Ropinirole HCl) 1 Mg Tablet, 1 MG PO QHS Simvastatin (Simvastatin) 20 Mg Tab, 20 MG PO QHS, (Reported) Scheduled PRN Acetaminophen (Acetaminophen) 325 Mg Tablet, 650 MG PO Q4H PRN for PAIN, (Reported) Oxycodone/Acetaminophen (Oxycodone-Acetaminophen 5-325) 1 Each Tablet, 1 TAB PO Q6HP PRN for MILD/MODERATE PAIN (PS 1-7) Patiromer Calcium Sorbitex (Veltassa) 8.4 Gm Pow, 8.4 GM PO ASDIRECTED PRN for MISSING DIALYSIS, (Reported) Allergies Coded Allergies: pregabalin (Verified Adverse Reaction, Intermediate, "feeling weird", SI thoughts., 03/06/19) TIO HARMAN MD May 03, 2019 15:19
--- NOTE | 2019-05-04 07:58 | IPN ---
DATE: 05/03/2019 SUBJECTIVE: Patient is seen and examined this morning at the bedside. She is discharge pending and is looking forward to going home. Denies any complaints. Tolerated dialysis yesterday without any issues. PHYSICAL EXAMINATION: Vital signs: temperature of 97.8, pulse 90, respiratory rate 18, blood pressure 144/66, saturating 98% on room air. Intake yesterday was not fully recorded. Dialysis yesterday removed 1500 mL. Weight on the bed scale today is 80.8 kg. GENERAL: The patient is seen lying in bed, family present at the bedside. Awake, alert, oriented, comfortable in no acute distress. Extraocular muscles are intact. Tongue is moist. Neck is supple. Jugular veins are not elevated. Cardiac: S1, S2. Regular rate and rhythm. Lungs are clear to auscultation bilaterally. No crackles, rales or wheeze. Abdomen is soft. There is some ascitic fluid present, but there is no tense ascites. The left upper extremity fistula is patent. The left lower extremity [id number] amputation site has a wound Vac. The right lower extremity has only trace edema. Neurologic: She is oriented times three. No focal deficits. Psychiatric: Appropriate mood and effect. LABORATORY DATA Sodium 136, potassium 3.8, bicarbonate 27, hemoglobin 10.2, white count 8.6. MEDICATIONS: Inpatient medications reviewed by myself and no change from prior. PROBLEMS: 1. End-stage renal disease on hemodialysis on Tuesday, Tuesday, Tuesday schedule. Her volume status has improved nicely over the course of this admission. She is chronically volume overloaded as an outpatient due to noncompliance with dialysis and fluid restriction. Next hemodialysis treatment will be on Tuesday. Fistula is in good use. Electrolytes are acceptable. No changes being made to her chronic prescription. 2. Hypertension. Blood pressures are acceptable. Continue present medication. 3. Anemia related to chronic renal failure, inflammation and iron deficiency. Her hemoglobin has improved to 10.2, and she will continue on Aranesp as an outpatient as well. 4. Recurrent ascites. She will receive paracentesis in the outpatient setting as well, likely on an every two weekly basis. 5. Diastolic congestive heart failure now fairly well compensated after a lengthy hospitalization. Continue oral fluid restriction. She is advised to be compliant with her hemodialysis treatments in the outpatient setting as well. DISPOSITION: The patient is stable for discharge today from a nephrology point of view.
--- NOTE | 2019-05-05 00:25 | RO ---
DATE OF PROCEDURE: 04/26/2019 PREOPERATIVE DIAGNOSIS: Nonhealing left below-knee amputation stump wound. POSTOPERATIVE DIAGNOSIS: Nonhealing left below-knee amputation stump wound. PROCEDURE: Debridement left amputation below-knee stump wound and placement of a VAC dressing. SURGEON: Dr. Amira Estrella PRESSURIZER: None. INDICATION: The patient has undergone a left below-knee amputation and has nonhealing of the stump and has had previous debridement and will now undergo debridement with placement of a VAC dressing. ANESTHESIA: Monitored anesthesia care (MAC). ESTIMATED BLOOD LOSS: Minimal. IV FLUIDS: None. COMPLICATIONS: None. DRAINS: None. SPECIMENS: None. IMPLANTS: None. DESCRIPTION OF PROCEDURE: The patient was taken to the operating room, placed supine on the operating room table and then prepped and draped in a standard surgical fashion. The wound was debrided sharply and then a VAC dressing was placed. The patient tolerated the procedure well. All instrument, sponge and needle counts were correct at the end of the case. There were no complications. Dr. Estrella was present for and directed the entire case. The patient was transferred to the holding area and subsequently to the floor in stable condition.
== END 2019-05-03 14:29 | disposition home health service (06) | DRG 564 ==
LOC: M MSPAV 16:08
PROVIDERS: ADMIT Internal Medicine; ATTEND Internal Medicine
PROC: 0HDLXZZ Extraction of Left Lower Leg Skin, External Approach (ICD-10-PCS; principal; 2019-04-26)
PROC: 0W9G3ZZ Drainage of Peritoneal Cavity, Percutaneous Approach (ICD-10-PCS; 2019-05-01)
DX: T87.44 Infection of amputation stump, left lower extremity (principal); N18.6 End stage renal disease; I50.32 Chronic diastolic (congestive) heart failure; I13.2 Hypertensive heart and chronic kidney disease with heart failure and with stage 5 chronic kidney disease, or end stage renal disease; E44.0 Moderate protein-calorie malnutrition; R18.8 Other ascites; N25.81 Secondary hyperparathyroidism of renal origin; Z79.899 Other long term (current) drug therapy; Z79.4 Long term (current) use of insulin; Z88.8 Allergy status to other drugs, medicaments and biological substances; E11.51 Type 2 diabetes mellitus with diabetic peripheral angiopathy without gangrene; D63.1 Anemia in chronic kidney disease; K74.69 Other cirrhosis of liver; E78.5 Hyperlipidemia, unspecified; E03.9 Hypothyroidism, unspecified; Z95.2 Presence of prosthetic heart valve; I25.10 Atherosclerotic heart disease of native coronary artery without angina pectoris; Z91.15 Patient's noncompliance with renal dialysis; G25.81 Restless legs syndrome; K21.9 Gastro-esophageal reflux disease without esophagitis; Y83.5 Amputation of limb(s) as the cause of abnormal reaction of the patient, or of later complication, without mention of misadventure at the time of the procedure

== ENCOUNTER 2019-05-04 19:01 | Emergency (ER) | payer MEDICARE ==
[~2019-05-04] VITALS: Ht 157.5 cm; Wt 68.8 kg
[~2019-05-04 19:01] MED LIST changes: +APAP325T4 PO
[2019-05-04 21:55] VITALS: BP 113/56
== END 2019-05-04 21:56 | disposition home or self-care (01) ==
LOC: M ED 19:01
DX: T85.698A Other mechanical complication of other specified internal prosthetic devices, implants and grafts, initial encounter (principal); X58.XXXA Exposure to other specified factors, initial encounter; Y92.89 Other specified places as the place of occurrence of the external cause; E11.51 Type 2 diabetes mellitus with diabetic peripheral angiopathy without gangrene; I10 Essential (primary) hypertension; I73.9 Peripheral vascular disease, unspecified; K76.89 Other specified diseases of liver; N28.9 Disorder of kidney and ureter, unspecified; Z88.1 Allergy status to other antibiotic agents; Z88.8 Allergy status to other drugs, medicaments and biological substances; Z79.899 Other long term (current) drug therapy; Z79.890 Hormone replacement therapy; Z79.4 Long term (current) use of insulin

== ENCOUNTER 2019-05-09 20:52 | Inpatient (IN) | payer MEDICARE ==
[~2019-05-09] VITALS: Ht 157.5 cm; Wt 74.7 kg
[2019-05-09 22:14] LABS: BASO % 0.4 % (0.0-1.0); EOS # 0.8 10^3/uL (0.0-0.50); HEMATOCRIT 25.3 % (36.0-47.0); LYMPH # 1.4 10^3/uL (1.5-4.5); LYMPH % 14.7 % (24.0-44.0); MEAN CORPUSCULAR HEMOGLOBIN 30.5 pg (27.0-33.0); MEAN CORPUSCULAR HGB CONC 31.6 g/dl (32.0-36.5); MEAN CORPUSCULAR VOLUME 96.6 fl (80.0-96.0); MONO # 1.6 10^3/uL (0.0-0.8); NEUTROPHILS # 5.4 10^3/uL (1.8-7.7); NEUTROPHILS % 57.3 % (36.0-66.0); PLATELET COUNT, AUTOMATED 211 10^3/uL (150-450); RED BLOOD COUNT 2.62 10^6/uL (4.00-5.40); WHITE BLOOD COUNT 9.4 10^3/uL (4.0-10.0)
--- NOTE | 2019-05-09 22:25 | REPVR ---
EXAM: CT Head Without Contrast EXAM DATE/TIME: 05/09/2019 9:55 PM CLINICAL HISTORY: 68 years old, female; Signs and symptoms; Altered mental status/memory loss TECHNIQUE: Imaging protocol: Axial computed tomography images of the head without contrast. Radiation optimization: All CT scans at this facility use at least one of these dose optimization techniques: automated exposure control; mA and/or kV adjustment per patient size (includes targeted exams where dose is matched to clinical indication); or iterative reconstruction. COMPARISON: CT Head without contrast 03/06/2019 2:05 PM FINDINGS: Brain: Lucencies in the white matter, most suggestive of chronic microvascular ischemic disease, do not appear significantly changed. There is no evidence for large acute cortical infarct. No intracranial hemorrhage or extraaxial collection is identified. There is no significant intracranial mass effect. Ventricles: The ventricles and sulci are stable in configuration. Bones/joints: Unremarkable. No acute fracture. Sinuses: Visualized sinuses are unremarkable. No fluid levels. Mastoid air cells: Visualized mastoid air cells are well aerated. No mastoid effusion. Soft tissues: Unremarkable. IMPRESSION: No CT evidence for acute intracranial abnormality or significant change since 03/06/19. ASSESSMENT: ASPECTS ([place] Stroke Program Early CT Score) is 10. COMMENT: Early cerebral infarct may be CT occult in the first 12 hours. Electronically signed by: Abram Casas On 05/09/2019 22:24:39 PM
[2019-05-09] MEDS: PIPERACILLIN/TAZOBACTAM SOD 2.25 GM in D5W MINI-BAG PLUS 50 ML IV SCH (22:36)
[2019-05-09] MEDS ORDERED: NS 500 ML IV ONE (22:45)
[2019-05-09 22:46] LABS: ALT/SGPT 19 U/L (12-78); BILIRUBIN,DIRECT 0.2 MG/DL (0.0-0.2); BILIRUBIN,TOTAL 0.5 MG/DL (0.2-1.0); BLOOD UREA NITROGEN 24 MG/DL (7-18); CALCIUM LEVEL 7.2 MG/DL (8.8-10.2); CARBON DIOXIDE LEVEL 30 MEQ/L (21-32); CHLORIDE LEVEL 100 MEQ/L (98-107); CK-MB VALUE MASS 2.2 NG/ML (<3.6); CPK CREATINE PHOSPHOKINASE 42 U/L (26-192); CREATININE FOR GFR 2.59 MG/DL (0.55-1.30); GLOMERULAR FILTRATION RATE 19.5 (>39); GLUCOSE, FASTING 48 MG/DL (70-100); MB/CK RELATIVE INDEX 5.24 (< OR =4); POTASSIUM SERUM 3.9 MEQ/L (3.5-5.1); SODIUM LEVEL 138 MEQ/L (136-145); TOTAL PROTEIN 6.5 GM/DL (6.4-8.2); TROPONIN I < 0.02 NG/ML (< 0.10)
[2019-05-09] MEDS ORDERED: DEXTROSE 50% 50 ML SYRINGE IV STA (23:17)
[2019-05-09] MEDS ORDERED: LINE1TAB PO (23:46)
[2019-05-09] MEDS ORDERED: TRAZ-189 PO (23:46)
[2019-05-09] MEDS ORDERED: PERC5TAB12 PO (23:46)
[2019-05-09] MEDS ORDERED: INSUDET SC (23:46)
[2019-05-09] MEDS ORDERED: SILV50CR EXT (23:46)
[2019-05-09] MEDS ORDERED: GABA-1171 PO (23:46)
[2019-05-09] MEDS ORDERED: METO1TAB87 PO (23:46)
[2019-05-10] VITALS (21 sets, daily range): BP systolic 96–134; BP diastolic 51–65
[2019-05-10] MEDS ORDERED: PATIROMER SORBITEX CALCIUM 8.4 GM POWDER PACKET (VELTASSA) PO PRN (00:45)
[2019-05-10] MEDS ORDERED: CALCIUM CARBONATE 500 MG CHEW U/D PO PRN (00:45)
[2019-05-10] MEDS ORDERED: GLUCOSE 4 GM CHEW TABLET PO PRN (01:00)
[2019-05-10] MEDS ORDERED: GLUCAGON FOR INJ 1 MG VIAL (J1610) SC PRN (01:00)
[2019-05-10] MEDS ORDERED: DEXTROSE 50% 50 ML SYRINGE IV PRN (01:00)
[2019-05-10] MEDS: SIMVASTATIN 20 MG TAB PO SCH ×2 (01:38→21:41)
[2019-05-10] MEDS: GABAPENTIN 300 MG CAP PO SCH ×2 (01:38→21:41)
[2019-05-10] MEDS: PERCOCET 5MG/325MG TAB PO PRN ×2 (01:39→13:29)
[2019-05-10] MEDS: rOPINIRole 2MG TAB PO SCH ×3 (02:50→21:41)
[2019-05-10] MEDS: PIPERACILLIN/TAZOBACTAM SOD 2.25 GM in D5W MINI-BAG PLUS 50 ML IV SCH ×4 (03:28→21:42)
[2019-05-10 05:06] LABS: HEMATOCRIT 21.6 % (36.0-47.0); MEAN CORPUSCULAR HEMOGLOBIN 29.5 pg (27.0-33.0); MEAN CORPUSCULAR VOLUME 95.2 fl (80.0-96.0); PLATELET COUNT, AUTOMATED 181 10^3/uL (150-450); RED BLOOD COUNT 2.27 10^6/uL (4.00-5.40); WHITE BLOOD COUNT 8.7 10^3/uL (4.0-10.0)
[2019-05-10 05:15] LABS: HEMOGLOBIN 6.7 g/dl (12.0-15.5)
[2019-05-10 05:26] LABS: CALCIUM LEVEL 7.1 MG/DL (8.8-10.2); CREATININE FOR GFR 2.95 MG/DL (0.55-1.30); GLOMERULAR FILTRATION RATE 16.7 (>39); POTASSIUM SERUM 3.8 MEQ/L (3.5-5.1)
--- NOTE | 2019-05-10 07:34 | HPE ---
DATE OF ADMISSION: 05/09/2019 PRIMARY CARE PROVIDER: Dr. Pineda DIRECTOR OF SPORTS PERFORMANCE: Dr. Grullon ATTENDING PHYSICIAN: Dr. Bernstein CHIEF COMPLAINT: Confusion and low blood pressure. HISTORY OF PRESENT ILLNESS (HPI): The patient is a 68-year-old white female with multiple chronic medical conditions including end-stage renal disease on dialysis, as well as end-stage liver disease, paracentesis every two weeks who presents to the emergency room for confusion, as well as low blood pressure. She is very confused. She cannot provide any good history. The history is provided by her daughter, as well as by review of the chart. Per the medical record, the patient had been hospitalized here recently for a very long time due to left lower extremity infection and she ended up with below the knee amputation (BKA) and she was discharged one week ago with a wound vacuum assisted closure (VAC). In that admission she was consulted with the infectious disease specialist also. Her daughter opted for discharge from the hospital. She was doing relatively okay initially. However, gradually the patient has become more weak and a little bit confused. Today, she went for hemodialysis and she is very confused. The blood pressures were down to the 70s and she could not finish her hemodialysis and she was brought to the emergency room (ER) here for full evaluation. The medical service called for her admission. REVIEW OF SYSTEMS: Not available since she is very confused. PAST MEDICAL HISTORY: 1. End-stage renal disease on hemodialysis. 2. End-stage liver disease on paracentesis every two weeks. 3. Type 2 diabetes. 4. Chronic anemia due to chronic kidney disease. 5. Peripheral vascular disease status post left BKA. 6. She also has coronary artery disease status post stenting. 7. Chronic diastolic congestive heart failure (CHF). PAST SURGICAL HISTORY: 1. Left BKA. 2. Left arteriovascular (AV) fistula. 3. Appendectomy. 4. Hysterectomy. 5. Cataract surgery. FAMILY HISTORY: Both parents and no family history of end-stage disease. SOCIAL HISTORY: No tobacco use, no alcohol abuse, no illicit drug abuse. She lives with her daughter. Her daughter is her health proxy. She is a FULL CODE. MEDICATIONS: Reviewed. ALLERGIES: She is allergic to PREGABALIN. PHYSICAL EXAMINATION: VITAL IN THE ER: Temperature 99, heart rate 78, respirations 22, blood pressure 75/50, O2 saturation 95% on 2 liters nasal cannula. GENERAL: She is weak, alert, but she is very lethargic and difficult to wake up. She does not answer questions and does not follow any commands. HEENT: Atraumatic. Pupils equal, round, reactive to light. No jaundice. Extraocular muscles are intact. Ears, nose and throat are normal. Mouth: The mucosa is dry. NECK: No jugular venous distention (JVD) or bruits. LUNGS: Clear, no wheezing, no crackles. HEART: S1, S2, regular. No murmur. ABDOMEN: Soft, bowel sounds positive, distended but nontender. LOWER EXTREMITIES: No edema in the right lower extremity. She has a left BKA wound VAC. NEUROLOGIC: Nonfocal. SKIN: No rash. PSYCHIATRIC: No acute psychosis. DIAGNOSTIC LABS REVEAL THE FOLLOWING: CBC and differential, WBC 9.4, hemoglobin 8.0 and hematocrit 25, platelets 211. Basic metabolic profile (BMP) is pending. Lactic Acid 1.8, ammonia level is 42. IMPRESSION: 1. Metabolic encephalopathy. 2. Hypotension. 3. End-stage renal disease on hemodialysis. 4. End-stage liver disease, periodic paracentesis. 5. Chronic anemia. 6. Type 2 diabetes. 7. Chronic diastolic congestive heart failure. 8. L BKA wound PLAN: The patient will be admitted to the intensive care unit (ICU) or close monitoring. I will treat her with gentle intravenous (IV) fluid hydration, IV albumin, IV vancomycin and Zosyn for possible sepsis and infection. Will follow blood cultures. Will consult Dr. Grullon for hospital hemodialysis. She is a FULL CODE, however, her prognosis is guarded. I discussed with the family. SHAAN
--- NOTE | 2019-05-10 08:26 | REP ---
Oral chest x-ray: Single view. History: Altered mental status. Comparison chest x-ray: April 19, 2019. Findings: EKG monitoring electrodes and oxygen delivery tubing is seen. Moderate cardiomegaly is observed unchanged. Pulmonary vasculature is cephalized and congested. There is slight blunting of the right lateral pleural angle. No pulmonary edema is appreciated. The lungs are exposed at a somewhat lesser level of inspiration. Impression: CHF pattern. Electronically Signed by Vel Martinez MD 05/10/2019 08:18 A
[2019-05-10] MEDS: CLOPIDOGREL 75 MG TAB PO SCH ×2 (09:00→09:18)
[2019-05-10] MEDS: PANTOPRAZOLE 40MG TAB (PROTONIX) PO SCH (09:17)
[2019-05-10] MEDS: HumaLOG INSULIN (NovoLOG) PER UNIT SC SCH ×4 (09:17→21:00)
[2019-05-10] MEDS: DULoxetine 30 MG CAP (CYMBALTA) PO SCH (09:18)
[2019-05-10] MEDS: LEVEMIR (INSULIN DETEMIR) 1 UNITS/0.01ML SC SCH ×2 (09:19→21:37)
[2019-05-10] MEDS: LEVOTHYROXINE 125MCG TABLET (0.125MG) PO SCH (09:22)
--- NOTE | 2019-05-10 11:45 | CR ---
DATE OF CONSULTATION: 05/10/2019 REQUESTING PROVIDER: Hospitalist service for Dr. Bernstein REASON FOR CONSULTATION: To assist in management of end-stage renal disease. HISTORY OF PRESENT ILLNESS: Mrs. Hernandez is a 68-year-old female with multiple chronic medical problems, including longstanding poorly controlled diabetes, end-stage renal disease requiring maintenance hemodialysis, peripheral vascular disease, status post recent left dicnc-zvi-svxu amputation, history of cirrhosis with recurrent ascites, history of congestive heart failure with diastolic dysfunction and history of severe peripheral neuropathy. The patient was in dialysis yesterday and became hypotensive and confused. She was sent to the emergency room and got admitted. She did complete her dialysis treatment prior to transfer. She is now in the intensive care unit. A nephrology consultation was requested, and the patient is seen this morning. PAST MEDICAL AND SURGICAL HISTORY: Significant for: 1. Longstanding history of diabetes, which has been poorly controlled. 2. Hypertension. 3. Peripheral arterial disease. 4. History of end-stage renal disease requiring maintenance hemodialysis. 5. History of diastolic congestive heart failure. 6. History of coronary artery disease, status post angioplasty with stent placement. 7. History of cirrhosis of liver with recurrent ascites requiring paracentesis. 8. History of recurrent anemia requiring transfusions in the past. Past surgical history is significant for: 1. Appendectomy. 2. Hysterectomy. 3. Cataract surgery. 4. Left arm AV fistula surgery. 5. Recent left emtad-ibq-jjij amputation. 6. Angioplasty with coronary stent placement. PERSONAL AND SOCIAL HISTORY: The patient is recently . Her was very supportive and involved in her care who recently due to acute medical problems. Since then, the patient has not been doing well. She has no history of alcohol, tobacco or drug use. FAMILY HISTORY: Negative for end-stage renal disease. REVIEW OF SYSTEMS: The patient is much more alert and able to answer questions appropriately this morning. Yesterday, she was poorly responsive towards the end of dialysis. She was not even aware when she came to the emergency room. She has no history of fever or chills. Nose and throat are unremarkable. Cardiovascular system is significant for known history of diastolic congestive heart failure. She denies any chest pain or dyspnea at present. Respiratory system is negative for cough or hemoptysis. Gastrointestinal system is negative for nausea, vomiting or diarrhea, though she does have chronic gastrointestinal problems. She has a history of cirrhosis of liver with recurrent ascites requiring paracentesis. Musculoskeletal system is significant for generalized weakness and recent left fnzeh-ams-pxvc amputation. She has a wound Vac dressing. Hematological system is significant for chronic anemia with prior history of gastrointestinal bleed. Psychosocial system is significant for anxiety and depression. Neurological system is significant for severe peripheral neuropathy. She had altered mentation yesterday. PHYSICAL EXAMINATION: This morning the patient is awake and alert. She is able to answer questions appropriately. Temperature is 97.1 degrees Fahrenheit, heart rate 72 per minute and respiratory rate 20 per minute. Blood pressure 99/56 mmHg and oxygen saturation 98% on 2 liters oxygen. Head is atraumatic. Neck is supple and jugular venous distention (JVD) is moderately elevated. She has no oral thrush or ulcers. Heart exam reveals regular S1, S2 without a pericardial friction rub. Lungs with slightly diminished breath sounds at bases. Abdomen is markedly distended with large amount of ascites. Bowel sounds are present. Extremities have no cyanosis or clubbing. She has a left arm AV fistula. She has a left dcxwo-fyq-hgjo amputation with a wound Vac dressing on the stump. Her right second toe is surgically absent. Neurologically, she is awake, alert and able to answer questions appropriately. LABORATORY DATA: Today's labs show WBC count 8.7, hemoglobin 6.7 and hematocrit 21.6. Platelets 181. Sodium 138, potassium 3.8, CO2 31, BUN 26 and creatinine 2.95. Her ammonia level was 42 yesterday and today is 36. Calcium level is 7.1 and lactic acid level 1.8. CT scan of head was done in the emergency room last evening, which did not show any acute infarct. Chest x-ray done in the emergency room was reviewed and showed bilateral pulmonary vascular congestion. No acute consolidation. PROBLEMS: 1. End-stage renal disease. The patient is regularly dialyzed on Tuesday, Tuesday and Tuesday schedule. She did complete her dialysis treatment yesterday and we will schedule her next dialysis for tomorrow. 2. Congestive heart failure. The patient was persistently hypotensive and we could not remove any fluid with dialysis yesterday. We will try to remove fluid tomorrow if her blood pressure allows. At present, her blood pressure is still low. She is oxygenating well on room air so I do not feel that there is any emergent need for dialysis at this moment. 3. Anemia. She does have severe anemia and is going to have a transfusion of 1 unit of packed red blood cells today. We will consider further transfusion during dialysis tomorrow. 4. Cirrhosis of liver with recurrent ascites. The patient has large amount of ascites, which is probably affecting her respiratory status more than any other factor. She is already scheduled for paracentesis today. I would suggest to remove as much fluid as can safely be done. 5. Peripheral vascular disease, status post left lxull-ala-jsrs amputation. The patient has a wound Vac dressing on her leg stump. She is afebrile and does not seem to have any clinical infection. I will defer to surgical evaluation of the wound. Thank you for involving me in the care of Mrs. Hernandez, I will follow her along with you.
--- NOTE | 2019-05-10 12:30 | IPNPDOC ---
Text Note Date of Service The patient was seen on 05/10/19. NOTE Ms. Hernandez was seen on bedside rounds this morning, she is laying in bed, appears comfortable, tells me she isn't in any discomfort, she states she is seeing green men standing in the corner behind me, however she is completely orientated to person, place, time, president of the [place]. She denies cp, sob or n/v, no light headedness. ROS : 12 point ROS reviewed with patient and negative except for pertinent positives above PE: Vitals: see below General: elderly, chronically ill appearing female, laying in bed, in NAD, conversant, speaking in full sentences HEENT: moist mucus membranes, EOMI, no JVD Cardiac: normal s1 and s1., soft systolic murmur appreciated best at URSB, no other murmurs appreciated, no gallops Resp: diminished throughout, no rales, rhonchi or wheezing Abdomen: nabsx4, no hepatosplenomegaly, no masses, no rebound ridgity or guarding, no distension, no pain to palpation Extremities: left BKA with wound vac in place, right LE without edema, mottling or cyanosis Psych: tangental, but AAOx3, some visual hallucinations as discussed above PLAN: 1. Confusion and hypotension secondary to abdominal ascites -she is a bit tangental today, some visual hallicunations, although she is AAOx3 -has received IVF, she may continue to eat, BP is soft but improved -Nephrology on board for HD instructions -She has large amount of abdominal ascites, we have contacted IR and they will try to perform diagnostic and therapeutic tap today, will send fluid studies to evaluate for SBP, c/w Zosyn coverage 2. ESRD on HD -Pt follows MWF schedule, nephrology on board, appreciate their help. Plan to dialyze tomorrow per her normal schedule. 3. HFpEF -Last echo showed EF of about 70% with G1DD in March 2019 -Due to low BP, could not have fluid removed w dialysis yesterday, this will be attempted tomorrow if BP tolerates it. 3. Anemia -Likely of chronic disease -She is getting 1 unit pRBC today, she may receive another transfusion tomorrow with HD -Monitoring H/H 4. Cirrhosis of liver with recurrent ascites -as outlined above, she will hopefully receive paracentesis today, will send fluid studies to eval for SBP, c/w Zosyn 5. Peripheral vascular disease -Recent s/p left BKA with wound vac -she is afebrile, do not suspect she has infectious etiology at this time, we will monitor this for now -she continues on home Zocor- ACC/AHA guideline for pts with PAD 6. Hypothyroid -c/w thyroid supplementation VS,Fishbone, I+O VS, Fishbone, I+O Laboratory Tests 05/09/19 21:57 05/09/19 21:58 Red Blood Count 2.62 L, Mean Corpuscular Volume 96.6 H, Mean Corpuscular Hemoglobin 30.5, Mean Corpuscular Hemoglobin Concent 31.6 L, Red Cell Distribution Width 18.6 H, Neutrophils (%) (Auto) 57.3, Lymphocytes (%) (Auto) 14.7 L, Monocytes (%) (Auto) 17.0 H, Eosinophils (%) (Auto) 9.0 H, Basophils (%) (Auto) 0.4, Neutrophils # (Auto) 5.4, Lymphocytes # (Auto) 1.4 L, Monocytes # (Auto) 1.6 H, Eosinophils # (Auto) 0.8 H, Basophils # (Auto) 0.0 05/10/19 04:49 Red Blood Count 2.27 L, Mean Corpuscular Volume 95.2, Mean Corpuscular Hemoglobin 29.5, Mean Corpuscular Hemoglobin Concent 31.0 L, Red Cell Distribution Width 18.7 H, Calcium Level 7.1 L Vital Signs Date Time Temp Pulse Resp B/P (MAP) Pulse Ox O2 Delivery O2 Flow Rate FiO2 05/10/19 06:00 72 16 104/57 (73) 98 2.0 05/10/19 04:00 97.1 05/09/19 21:19 Nasal Cannula I&O- Last 24 Hours up to 6 AM 05/10/19 05:59 Intake Total 600 ml Output Total 0 ml Balance 600 ml GME ATTESTATION GME ATTESTATION My faculty preceptor for this patient encounter was physically present during the encounter and was fully available. All aspects of the patient interview, examination, medical decision making process, and medical care plan development were reviewed and approved by the faculty preceptor. The faculty preceptor is aware and concurs with the plan as stated in the body of this note and will attest to such by his/her cosignature. ATTENDING NOTE I have examined the patient at bedside and discussed the assessment and plan with the resident. I agree with the above documentation by the resident with the following addendum/amendment Confusion possibly due to pain medication percocet. As the nurses here have noticed after 1 percocet last night she became lethargic then woke up by herself this morning. Hypotension this is probably due to underlying cirrhosis and during HD becomes hypotension with removal of fluid. I do not think there is any infective process for her confusion and hypotension. her leg wound looks good, wound vac in place, no white count , no fever. blood cultures are prelim negative. Her abdomen in benign no signs of peritonitis. However in view of cirrhosis of liver will tap her ascitic fluid and will rule out SBP. DOUGLAS WATKINS DO May 10, 2019 12:30 MEETA BARGER MD May 10, 2019 22:31
[2019-05-10] MEDS ORDERED: PILL CUTTER 1 EACH XX PRN (14:15)
[2019-05-11 02:00] VITALS: BP 140/70
[2019-05-11] MEDS: PIPERACILLIN/TAZOBACTAM SOD 2.25 GM in D5W MINI-BAG PLUS 50 ML IV SCH ×4 (03:28→21:33)
[2019-05-11] MEDS: oxyCODONE 5MG TAB PO PRN ×3 (03:29→19:22)
[2019-05-11 06:00] VITALS: BP 142/71
[2019-05-11] MEDS: LEVOTHYROXINE 125MCG TABLET (0.125MG) PO SCH (06:07)
[2019-05-11] MEDS: rOPINIRole 2MG TAB PO SCH ×2 (06:50→21:33)
[2019-05-11] MEDS: DULoxetine 30 MG CAP (CYMBALTA) PO SCH (06:50)
[2019-05-11] MEDS: PANTOPRAZOLE 40MG TAB (PROTONIX) PO SCH (06:50)
[2019-05-11] MEDS: LEVEMIR (INSULIN DETEMIR) 1 UNITS/0.01ML SC SCH ×2 (07:22→21:34)
[2019-05-11] MEDS: HumaLOG INSULIN (NovoLOG) PER UNIT SC SCH ×5 (07:22→21:00)
[2019-05-11 08:09] LABS: BASO # 0.1 10^3/uL (0.0-0.2); BASO % 0.6 % (0.0-1.0); EOS # 0.6 10^3/uL (0.0-0.50); EOS % 7.4 % (0.0-3.0); HEMATOCRIT 28.9 % (36.0-47.0); HEMOGLOBIN 8.7 g/dl (12.0-15.5); LYMPH # 1.1 10^3/uL (1.5-4.5); LYMPH % 13.2 % (24.0-44.0); MEAN CORPUSCULAR HEMOGLOBIN 29.6 pg (27.0-33.0); MEAN CORPUSCULAR HGB CONC 30.1 g/dl (32.0-36.5); MEAN CORPUSCULAR VOLUME 98.3 fl (80.0-96.0); MONO # 1.1 10^3/uL (0.0-0.8); MONO % 13.2 % (0.0-5.0); NEUTROPHILS # 5.3 10^3/uL (1.8-7.7); NEUTROPHILS % 64.4 % (36.0-66.0); PLATELET COUNT, AUTOMATED 176 10^3/uL (150-450); RED BLOOD COUNT 2.94 10^6/uL (4.00-5.40); WHITE BLOOD COUNT 8.3 10^3/uL (4.0-10.0)
[2019-05-11 08:42] LABS: CALCIUM LEVEL 6.9 MG/DL (8.8-10.2); CREATININE FOR GFR 4.28 MG/DL (0.55-1.30); GLOMERULAR FILTRATION RATE 10.9 (>39); POTASSIUM SERUM 3.7 MEQ/L (3.5-5.1)
--- NOTE | 2019-05-11 10:49 | IPNPDOC ---
Date Seen The patient was seen on 05/11/19. Progress Note SUBJECTIVE: Ms. Hernandez was seen on bedside rounds this morning, she is laying in bed, appears comfortable, tells me she isn't in any discomfort. She is drowsy and states that she hasn't slept well since her past away a few months ago. She is AAOx3 and able to answer questions. She does not report any visual hallucinations like those she had experienced yesterday. She states that she feels pressure in her abdomen that is making breathing more difficult but denies sob. She denies cp, nausea, vomiting, no light headedness, and abdominal pain. She is scheduled for paracentesis today at 11:00 am. ROS : 12 point ROS reviewed with patient and negative except for pertinent positives above OBJECTIVE: PE: Vitals: see below General: elderly, chronically ill appearing female, laying in bed, in NAD, conversant, speaking in full sentences HEENT: moist mucus membranes, EOMI, no JVD Cardiac: normal s1 and s1., soft systolic murmur appreciated best at URSB, no other murmurs appreciated, no gallops Resp: diminished throughout, no rales, rhonchi or wheezing Abdomen: nabsx4, no hepatosplenomegaly, no masses, no rebound, rigidity, or guarding, no pain to palpation. Abdomen is distended 2/2 to gross ascites, seems more distended today. Extremities: left BKA with wound vac in place, right LE without edema, mottling or cyanosis Psych: AAOx3, no reported visual hallucinations which were present yesterday PLAN: 1. Confusion and hypotension secondary to abdominal ascites -AAOx3, visual hallucinations resolved from yesterday -has received IVF, she may continue to eat, BP is soft but improved -Nephrology on board for HD instructions -She has large amount of abdominal ascites, will send fluid studies to evaluate for SBP, c/w Zosyn coverage - Paracentesis scheduled today at 11:00 am-HD is scheduled for this afternoon 2. ESRD on HD -Pt follows MWF schedule, nephrology on board, appreciate their help. Plan to dialyze this afternoon as per her MWF schedule. 3. HFpEF -Last echo showed EF of about 70% with G1DD in March 2019 -Due to low BP, could not have fluid removed w dialysis Wednesday 3. Anemia -Likely of chronic disease -She received 1 unit pRBC yesterday, she may receive another transfusion today with HD -Monitoring H/H-stable at this point 4. Cirrhosis of liver with recurrent ascites -as outlined above, she will receive paracentesis today, will send fluid studies to eval for SBP, c/w Zosyn 5. Peripheral vascular disease -Recent s/p left BKA with wound vac -she is afebrile, do not suspect she has infectious etiology at this time, we will monitor this for now -she continues on home Zocor- ACC/AHA guideline for pts with PAD 6. Hypothyroid -c/w thyroid supplementation DISPOSITION: Patient is improving in mentation from yesterday. She reports pressure in her abdomen making breathing more difficult but does not report any other discomfort. Paracentesis scheduled for 11:00 am and HD this afternoon is planned. VS, I&O, 24H, [facility] Vital Signs/I&O Vital Signs Date Time Temp Pulse Resp B/P (MAP) Pulse Ox O2 Delivery O2 Flow Rate FiO2 05/11/19 07:49 1.0 05/11/19 06:00 97.2 85 18 142/71 (94) 97 05/09/19 21:19 Nasal Cannula I&O- Last 24 Hours up to 6 AM 05/11/19 06:00 Intake Total 720 ml Output Total 0 ml Balance 720 ml Laboratory Data 24H LABS Laboratory Tests 2 05/10/19 12:31: Bedside Glucose (Misc Panel) 201H 05/10/19 16:57: Bedside Glucose (Misc Panel) 267H 05/10/19 20:12: Bedside Glucose (Misc Panel) 237H 05/11/19 07:14: Bedside Glucose (Misc Panel) 140H 05/11/19 07:54: Immature Granulocyte % (Auto) 1.2, White Blood Count 8.3, Red Blood Count 2.94L, Hemoglobin 8.7#L, Hematocrit 28.9L, Mean Corpuscular Volume 98.3H, Mean Corpuscular Hemoglobin 29.6, Mean Corpuscular Hemoglobin Concent 30.1L, Red Cell Distribution Width 19.4H, Platelet Count 176, Neutrophils (%) (Auto) 64.4, Lymphocytes (%) (Auto) 13.2L, Monocytes (%) (Auto) 13.2H, Eosinophils (%) (Auto) 7.4H, Basophils (%) (Auto) 0.6, Neutrophils # (Auto) 5.3, Lymphocytes # (Auto) 1.1L, Monocytes # (Auto) 1.1H, Eosinophils # (Auto) 0.6H, Basophils # (Auto) 0.1, Nucleated Red Blood Cells % (auto) 0.0 05/11/19 07:55: Anion Gap 9, Glomerular Filtration Rate 10.9L, Blood Urea Nitrogen 46#H, Creatinine 4.28H, Sodium Level 133L, Potassium Level 3.7, Chloride Level 99, Carbon Dioxide Level 25, Calcium Level 6.9L CBC/BMP Laboratory Tests 05/11/19 07:54 Red Blood Count 2.94 L, Mean Corpuscular Volume 98.3 H, Mean Corpuscular Hemoglobin 29.6, Mean Corpuscular Hemoglobin Concent 30.1 L, Red Cell Distribution Width 19.4 H, Neutrophils (%) (Auto) 64.4, Lymphocytes (%) (Auto) 13.2 L, Monocytes (%) (Auto) 13.2 H, Eosinophils (%) (Auto) 7.4 H, Basophils (%) (Auto) 0.6, Neutrophils # (Auto) 5.3, Lymphocytes # (Auto) 1.1 L, Monocytes # (Auto) 1.1 H, Eosinophils # (Auto) 0.6 H, Basophils # (Auto) 0.1 05/11/19 07:55 Calcium Level 6.9 L Microbiology Microbiology 05/09/19 Blood Culture - Preliminary, Resulted No growth after 24 hours . All specim... 05/09/19 Blood Culture - Preliminary, Resulted No growth after 24 hours . All specim... GME ATTESTATION GME ATTESTATION My faculty preceptor for this patient encounter was physically present during the encounter and was fully available. All aspects of the patient interview, examination, medical decision making process, and medical care plan development were reviewed and approved by the faculty preceptor. The faculty preceptor is aware and concurs with the plan as stated in the body of this note and will at test to such by his/her cosignature. ATTENDING NOTE I have personally interviewed and examined the patient. I have discussed the plan of care with the resident. I agree with the resident's documentation above. IVANA HOGUE OMS-3 May 11, 2019 10:49 DOUGLAS WATKINS DO May 11, 2019 11:39 MEETA BARGER MD May 13, 2019 16:27
[2019-05-11] MEDS ORDERED: HEPARIN 1,000 UNITS/ML 10ML VIAL (FOR RADIOLOGY& DIALYSIS ONLY) IV ONE (11:00)
[2019-05-11 12:42] LABS: APPEARANCE, BODY FLUID HAZY (CLEAR); ASCITES FL COLOR PALE YELLOW (COLORLESS); SOURCE, BODY FLUID ASCITES
[2019-05-11 12:50] LABS: SPEC. GRAVITY BODY FLUIDS 1.016 (NOT ESTABLISHED)
--- NOTE | 2019-05-11 13:07 | ECGEPIP ---
[facility] - ED Test Date: 2019-05-09 Pat Name: GUI JEAN Department: Room: [place] [address] Gender: Female [employer]ante[employer] Manager: KRIS : [id number] Requested By: Teddy Patton Order Number: [id number] Reading MD: Teddy Fay Measurements Intervals [place] Rate: 79 P: 27 MN: 144 QRS: QRSD: 81 T: 53 QT: 394 QTc: 452 Interpretive Statements SINUS RHYTHM LOW QRS VOLTAGE ANTEROSEPTAL MYOCARDIAL INFARCTION, PROBABLY OLD SIMILAR TO 04/19/19 Electronically Signed on 05-11-2019 13:07:54 EDT by Teddy Fay
[2019-05-11 13:20] LABS: SOURCE, BODY FLUID TOT PROTEIN ASCITES
--- NOTE | 2019-05-11 13:24 | IPN ---
DATE OF VISIT: 05/11/2019 Mrs. Hernandez was admitted with confusion and weakness. She was hypotensive during dialysis and since then her condition has improved significantly. She is being treated with antibiotics for possible infection causing her symptoms. She was also transfused and her anemia has improved. Her mentation and overall condition significantly improved since admission. The patient denies any nausea or vomiting. She has a large amount of ascites and is getting paracentesis done today. She is due for dialysis today and will be dialyzed this afternoon. On physical examination, temperature 97.2 degrees Fahrenheit, heart rate 85 per minute and respiratory rate 18 per minute. Blood pressure 142/70 mmHg and oxygen saturation 97%. Head is atraumatic. Neck veins are distended. No oral thrush or ulcers. Heart sounds are regular and lungs with diminished breath sounds at bases. Abdomen was distended with large amount of ascites. Bowel sounds present. Extremities: Without any cyanosis or clubbing. She has a left bvkfi-sdr-lkis amputation and a wound Vac dressing on her stump. Today's labs show WBC count 8.3, hemoglobin 8.7 and hematocrit 28.9. Platelets 176. Sodium 133, potassium 3.7, CO2 25, BUN 46 and creatinine 4.28. Calcium level 6.9. PROBLEMS: 1. End-stage renal disease. The patient is due for dialysis today and will be dialyzed this afternoon. We will try not to remove any fluid as the patient is getting paracentesis this morning and will be at risk for hypotension. She has history of recurrent hypotension during dialysis anyway. 2. Hyponatremia. She has mild hyponatremia related to end-stage renal disease and cirrhosis of liver. This will be corrected with dialysis and no other intervention is indicated. 3. Anemia. Her anemia improved with transfusion. At this point, there is no need for further transfusion and we will monitor her CBC on daily basis. 4. Cirrhosis of liver with recurrent ascites. The patient is getting paracentesis done this morning and as much fluid removal she can tolerate will be acceptable as we do not plan to remove any fluid with dialysis today. 5. Peripheral vascular disease, status post left udodq-iof-uaps amputation. The patient has a wound Vac dressing and has been afebrile. Overall, Mrs. Hernandez has improved significantly since admission. She will be dialyzed this afternoon and primary care team can work on her disposition over the next couple of days.
--- NOTE | 2019-05-11 15:07 | REP ---
Ultrasound-guided paracentesis The procedure was performed under the direct supervision of Dr. Martinez. The risks and benefits of the procedure were explained to the patient and informed consent was obtained. The largest pocket of fluid was localized in the left flank using ultrasound guidance. The skin was prepped and draped in a sterile fashion. 1% lidocaine was used as a local anesthetic. An 8-English multi side-hole catheter was inserted using trocar technique. 6000 ml of clear yellow fluid was withdrawn with a sample sent to the lab for analysis. The patient tolerated the procedure well and there were no immediate complications. After the appropriate amount of monitored convalescence the patient was discharged from the department. Reviewed by ANTONIO Curiel 05/11/2019 01:24 P Electronically Signed by Vel Martinez MD 05/11/2019 02:58 P
[2019-05-11 18:05] VITALS: BP 150/70
[2019-05-11] MEDS ORDERED: NITROGLYCERIN 0.4 MG SUBL TABLET SL STA ×3 (18:16→18:52)
[2019-05-11 18:30] VITALS: BP 122/62
[2019-05-11 18:56] VITALS: BP 134/61
[2019-05-11] MEDS ORDERED: GI COCKTAIL 50ML BTL(HYOSCYAMINE/MAALOX/LIDOCAINE VISCOUS)(1:3:1) PO ONE (19:00)
[2019-05-11 19:41] LABS: CK-MB VALUE MASS 1.7 NG/ML (<3.6); CPK CREATINE PHOSPHOKINASE 16 U/L (26-192); MB/CK RELATIVE INDEX 10.62 (< OR =4); TROPONIN I < 0.02 NG/ML (< 0.10)
[2019-05-11] MEDS: GABAPENTIN 300 MG CAP PO SCH (21:33)
[2019-05-11] MEDS: SUCRALFATE 1 GM TAB PO SCH (21:33)
[2019-05-11] MEDS: SIMVASTATIN 20 MG TAB PO SCH (21:33)
[2019-05-12 00:28] LABS: CK-MB VALUE MASS 1.5 NG/ML (<3.6); CPK CREATINE PHOSPHOKINASE 19 U/L (26-192); MB/CK RELATIVE INDEX 7.89 (< OR =4); TROPONIN I < 0.02 NG/ML (< 0.10)
[2019-05-12 02:00] VITALS: BP 136/62
[2019-05-12] MEDS: oxyCODONE 5MG TAB PO PRN ×2 (04:12→11:09)
[2019-05-12] MEDS: PIPERACILLIN/TAZOBACTAM SOD 2.25 GM in D5W MINI-BAG PLUS 50 ML IV SCH (04:12)
[2019-05-12] MEDS: LEVOTHYROXINE 125MCG TABLET (0.125MG) PO SCH (05:41)
[2019-05-12 06:00] VITALS: BP 136/76
[2019-05-12] MEDS: SUCRALFATE 1 GM TAB PO SCH ×2 (07:28→11:53)
[2019-05-12] MEDS: HumaLOG INSULIN (NovoLOG) PER UNIT SC SCH ×2 (07:28→11:54)
[2019-05-12] MEDS: PANTOPRAZOLE 40MG TAB (PROTONIX) PO SCH (08:45)
[2019-05-12] MEDS: rOPINIRole 2MG TAB PO SCH (08:45)
[2019-05-12] MEDS: LEVEMIR (INSULIN DETEMIR) 1 UNITS/0.01ML SC SCH (08:45)
[2019-05-12] MEDS: DULoxetine 30 MG CAP (CYMBALTA) PO SCH (08:45)
[2019-05-12 10:00] VITALS: BP 139/70
[2019-05-12] MEDS ORDERED: PIPERACILLIN/TAZOBACTAM SOD 2.25 GM in D5W MINI-BAG PLUS 50 ML IV SCH (10:00)
[2019-05-12] MEDS ORDERED: PROP10TA56 PO (10:29)
[2019-05-12] MEDS ORDERED: ONDANSETRON 4MG/2ML VIAL (J2405) IV ONE (12:15)
--- NOTE | 2019-05-12 16:27 | DS.PDOC ---
Discharge Summary General Date of Admission May 09, 2019 at 21:48 Date of Discharge 05.12.19 Discharge Summary PROCEDURES PERFORMED DURING STAY: HD and paracentesis ADMITTING DIAGNOSES: 1. Metabolic encephalopathy. 2. Hypotension. 3. End-stage renal disease on hemodialysis. 4. End-stage liver disease, periodic paracentesis. 5. Chronic anemia. 6. Type 2 diabetes. 7. Chronic diastolic congestive heart failure. 8. L BKA wound DISCHARGE DIAGNOSES: 1. Confusion and hypotension secondary to abdominal ascites 2. ESRD on HD 3. HFpEF 3. Anemia 4. Cirrhosis of liver with recurrent ascites 5. Peripheral vascular disease 6. Hypothyroid COMPLICATIONS/CHIEF COMPLAINT: Hypotension. HISTORY OF PRESENT ILLNESS: Per HPI: "The patient is a 68-year-old white female with multiple chronic medical conditions including end-stage renal disease on dialysis, as well as end-stage liver disease, paracentesis every two weeks who presents to the emergency room for confusion, as well as low blood pressure. She is very confused. She cannot provide any good history. The history is provided by her daughter, as well as by review of the chart. Per the medical record, the patient had been hospitalized here recently for a very long time due to left lower extremity infection and she ended up with below the knee amputation (BKA) and she was discharged one week ago with a wound vacuum assisted closure (VAC). In that admission she was consulted with the infectious disease specialist also. Her daughter opted for discharge from the hospital. She was doing relatively okay initially. However, gradually the patient has become more weak and a little bit confused. Today, she went for hemodialysis and she is very confused. The blood pressures were down to the 70s and she could not finish her hemodialysis and she was brought to the emergency room (ER) here for full evaluation. The medical service called for her admission." HOSPITAL COURSE: During the course of the patients hospital stay she underwent paracentesis and dialysis. She had 6000 mL of clear yellow fluid withdrawn. Fl uid analysis was negative for signs of SBP, gram stain with no organisms and few WBC/RBC . She was treated with Zosyn abx. inpatient however. On day of d/c she stated she felt well and her abdomen was much less distended and much less uncomfortable than before paracentesis, she was anxious to go home. Blood cultures x2 negative. Her home metoprolol was held for soft BP and switched to propranolol on d/c, which is better for her portal HTN. Also since per patient and her book critic Dr. Jose., her last cardiac stent was placed in 2016, no peripheral stenting has taken place, she was therefore not d/c on her home plavix. DISCHARGE MEDICATIONS: Please see below. ALLERGIES: Please see below. PHYSICAL EXAMINATION ON DISCHARGE: VITAL SIGNS: Please see below. General: elderly, chronically ill appearing female, laying in bed, in NAD, conversant, speaking in full sentences HEENT: moist mucus membranes, EOMI, no JVD Cardiac: normal s1 and s1., soft systolic murmur appreciated best at URSB, no other murmurs appreciated, no gallops Resp: diminished throughout, no rales, rhonchi or wheezing Abdomen: much less distension than day prior, nabsx4, no hepatosplenomegaly, no masses, no rebound, rigidity, or guarding, no pain to palpation. Extremities: left BKA with wound vac in place, right LE without edema, mottling or cyanosis Psych: AAOx3 LABORATORY DATA: Please see below. IMAGING: Head CT 05-09-19 FINDINGS: Brain: Lucencies in the white matter, most suggestive of chronic microvascular ischemic disease, do not appear significantly changed. There is no evidence for large acute cortical infarct. No intracranial hemorrhage or extraaxial collection is identified. There is no significant intracranial mass effect. Ventricles: The ventricles and sulci are stable in configuration. Bones/joints: Unremarkable. No acute fracture. Sinuses: Visualized sinuses are unremarkable. No fluid levels. Mastoid air cells: Visualized mastoid air cells are well aerated. No mastoid effusion. Soft tissues: Unremarkable. No CT evidence for acute intracranial abnormality or significant change since 03/06/19. CXR 05.10.19 Impression: CHF pattern. paracentesis u/s 05.11.19 Ultrasound-guided paracentesis The procedure was performed under the direct supervision of Dr. Martinez. The risks and benefits of the procedure were explained to the patient and informed consent was obtained. The largest pocket of fluid was localized in the left flank using ultrasound guidance. The skin was prepped and draped in a sterile fashion. 1% lidocaine was used as a local anesthetic. An 8-Serbian multi side-hole catheter was inserted using trocar technique. 6000 ml of clear yellow fluid was withdrawn with a sample sent to the lab for analysis. The patient tolerated the procedure well and there were no immediate complications. After the appropriate amount of monitored convalescence the patient was discharged from the department. PROGNOSIS: guarded given comorbidities ACTIVITY: As tolerated DIET: as tolerated DISCHARGE PLAN: home DISPOSITION: Home Health Service. DISCHARGE INSTRUCTIONS: 1. please follow up with pcp, nephrology w/ in 7-10 days of dc and attend r egular HD sessions outpatient ITEMS TO FOLLOWUP ON ON OUTPATIENT: 1. 1. please follow up with pcp, nephrology w/ in 7-10 days of dc and attend regular HD sessions outpatient DISCHARGE CONDITION: Stable TIME SPENT ON DISCHARGE: Greater than 35 minutes. Vital Signs/I&Os Vital Signs Date Time Temp Pulse Resp B/P (MAP) Pulse Ox O2 Delivery O2 Flow Rate FiO2 05/12/19 11:39 18 05/12/19 10:00 97.6 82 139/70 (93) 82 05/11/19 07:49 1.0 05/09/19 21:19 Nasal Cannula I&O- Last 24 Hours up to 6 AM 05/12/19 06:00 Intake Total 670 ml Output Total 550 ml Balance 120 ml Laboratory Data Labs 24H Laboratory Tests 2 05/11/19 18:28: Bedside Glucose (Misc Panel) 191H 05/11/19 18:29: Total Creatine Kinase 16L, Creatine Kinase MB 1.7, Creatine Kinase MB Relative Index 10.62H, Troponin I < 0.02 05/11/19 19:55: Bedside Glucose (Misc Panel) 183H 05/11/19 23:44: Total Creatine Kinase 19L, Creatine Kinase MB 1.5, Creatine Kinase MB Relative Index 7.89H, Troponin I < 0.02 05/12/19 06:03: Bedside Glucose (Misc Panel) 158H 05/12/19 11:46: Bedside Glucose (Misc Panel) 118H FSBS Laboratory Tests Test 05/11/19 18:28 05/11/19 19:55 05/12/19 06:03 05/12/19 11:46 Range/Units Bedside Glucose (Misc Panel) 191 183 158 118 83-110 MG/DL Microbiology Microbiology 05/09/19 Blood Culture - Preliminary, Resulted No Growth after 48 hours. All Specime... 05/09/19 Blood Culture - Preliminary, Resulted No Growth after 48 hours. All Specime... 05/10/19 Gram Stain - Final, Resulted 05/10/19 Body Fluid Culture, Resulted Pending Discharge Medications Scheduled Duloxetine Hcl (Duloxetine HCl) 30 Mg Cap, 30 MG PO DAILY, (Reported) Gabapentin (Gabapentin) 100 Mg Capsule, 300 MG PO QHS, (Reported) Insulin Detemir (Levemir) 100 Unit/1 Ml Vial, 10 UNITS SC BID, (Reported) Insulin Lispro (Humalog) 100 Unit/Ml Inj, 1 DOSE SC AC, (Reported) PER SLIDING SCALE Levothyroxine Sodium (Synthroid) 125 Mcg Tab, 125 MCG PO DAILY, (Reported) Linezolid (Linezolid) 600 Mg Tablet, 600 MG PO BID, (Reported) Mineral Oil/Petrolatum,White (Hydrocerin Cream) 113 Gm Cream..g., 1 DOSE TOP DAILY, (Reported) APPLIES TO RIGHT LOWER EXTREMITIES Pantoprazole Sodium (Pantoprazole Sodium) 40 Mg Tab, 40 MG PO DAILY, (Reported) Propranolol HCl (Propranolol HCl) 10 Mg Tablet, 10 MG PO BID Ropinirole HCl (Ropinirole HCl) 2 Mg Tab, 6 MG PO BID, (Reported) Silver Sulfadiazine (Ssd) 50 Gm Cream..g., 1 DOSE EXT DAILY, (Reported) USED ON BIG TOE OF RIGHT FOOT Simvastatin (Simvastatin) 20 Mg Tab, 20 MG PO QHS, (Reported) Trazodone HCl (Trazodone HCl) 100 Mg Tablet, 200 MG PO QHS, (Reported) Scheduled PRN Calcium Carbonate (Tums) 500 Mg Chw, 1,000 MG PO PC PRN for HEARTBURN/INDIGESTION, (Reported) Oxycodone HCl/Acetaminophen (Percocet 5-325 mg Tablet) 1 Each Tablet, 1 TAB PO Q6H PRN for PAIN, (Reported) Patiromer Calcium Sorbitex (Veltassa) 8.4 Gm Pow, 8.4 GM PO ASDIRECTED PRN for MISSING DIALYSIS, (Reported) Allergies Coded Allergies: pregabalin (Verified Adverse Reaction, Intermediate, "feeling weird", SI thoughts., 03/06/19) vancomycin (Verified Adverse Reaction, Mild, DIARRHEA, 05/10/19) GME ATTESTATION GME ATTESTATION My faculty preceptor for this patient encounter was physically present during the encounter and was fully available. All aspects of the patient interview, examination, medical decision making process, and medical care plan development were reviewed and approved by the faculty preceptor. The faculty preceptor is aware and concurs with the plan as stated in the body of this note and will attest to such by his/her cosignature. DOUGLAS WATKINS DO May 12, 2019 16:27
--- NOTE | 2019-05-14 06:29 | IPN ---
DATE OF SERVICE: 05/12/2019 SUBJECTIVE: The patient was seen and examined at the bedside today morning. She is afebrile, hemodynamically stable. She feels much better. She got the ascitic tap done yesterday, 6 liters of fluid was removed. The patient reports that they she is going to have her left leg wound Vac changed today and she is also getting ready to be discharged today. OBJECTIVE: Vital Signs: Temperature is 97.6 degrees Fahrenheit, blood pressure 139/70, pulse is 82, respiratory rate of 18, saturating 82% on room air. Intake and Output: Ultrafiltration with hemodialysis was 550 mL, weight in the bed scale is not available. PHYSICAL EXAMINATION: General: The patient is awake, alert, oriented times three, laying in bed, in no apparent distress. Head and Neck Exam: Extraocular muscles intact. Pupils equally round and reactive to light. Mucous membranes are moist. Neck is supple. There is no jugular venous distention (JVD). Cardiovascular: S1 and S2, regular rate. 1+ edema of the bilateral lower extremities. Respiratory: Chest is clear to auscultation bilaterally. Bilateral equal air entry. No rales or rhonchi. Abdomen is obese with mild amount of ascites, abdominal wall edema. Musculoskeletal: She has a left leg below-knee amputation with a wound Vac. HEALTH PLAN SPECIALIST: No focal deficit. Power is 5/5 in bilateral upper extremities. LAB REVIEW: Hemoglobin was 8.7 on the labs done yesterday. BMP showed sodium 133, potassium 3.71 on yesterday's lab. Microbiology: Blood cultures are negative so far. IMAGING STUDIES: The patient got the paracentesis done yesterday, 6 liters of fluid was removed. CURRENT INPATIENT MEDICATIONS: The patient's medications were all reviewed by me. She was getting IV Zosyn, which has been stopped now. No other change in the medications today as compared with yesterday. ASSESSMENT/PLAN: 1. End-stage renal disease on hemodialysis. The patient was dialyzed yesterday according to her regular schedule. Next hemodialysis will be done as outpatient next week. 2. Anemia with end-stage renal disease. The patient got packed red blood cell (PRBC) transfusion during this hospitalization. Latest hemoglobin was 8.7. Further anemia management will be done as outpatient. 3. Cirrhosis and recurrent ascites. The patient got the ascites tap done yesterday. 4. Disposition. The patient's clinical status is better. She is optimized from a nephrology standpoint to be discharged home. She will be dialyzed as outpatient next week.
--- NOTE | 2019-05-15 17:27 | ECGEPIP ---
[facility] Test Date: 2019-05-11 Pat Name: GUI JEAN Department: Room: [place] [address] Gender: Female Clinical Informatics Physician: LANDRY : [id number] Requested By: MEETA BARGER Order Number: [id number] Reading MD: Jasiel Maldonado Measurements Intervals [place] Rate: 79 P: 65 CT: 154 QRS: QRSD: 92 T: 115 QT: 404 QTc: 466 Interpretive Statements Normal sinus rhythm with an occasional PVC Somewhat low limb lead voltage Cannot exclude prior inferior wall myocardial infarction Prior anterior wall myocardial infarction Nonspecific repolarization abnormalities No significant change since prior tracing of 05/09/2019 Electronically Signed on 05-15-2019 17:26:50 EDT by Jasiel Maldonado
== END 2019-05-12 13:19 | disposition home health service (06) | DRG 432 ==
LOC: M ED 20:52 → EDBD 20:52 → EEVIPCON 21:48 → M ED INP 21:48 → M ICU 23:55 → M MSPAV 05-10 13:44
PROVIDERS: ADMIT Hospitalist; ATTEND Internal Medicine Nephrology
PROC: 30233N1 Transfusion of Nonautologous Red Blood Cells into Peripheral Vein, Percutaneous Approach (ICD-10-PCS; principal; 2019-05-10)
PROC: 0W9F3ZZ Drainage of Abdominal Wall, Percutaneous Approach (ICD-10-PCS; 2019-05-11)
PROC: 5A1D70Z Performance of Urinary Filtration, Intermittent, Less than 6 Hours Per Day (ICD-10-PCS; 2019-05-11)
DX: K74.60 Unspecified cirrhosis of liver (principal); N18.6 End stage renal disease; I50.32 Chronic diastolic (congestive) heart failure; R18.8 Other ascites; E87.1 Hypo-osmolality and hyponatremia; K76.6 Portal hypertension; R41.0 Disorientation, unspecified; I95.9 Hypotension, unspecified; I73.9 Peripheral vascular disease, unspecified; E03.9 Hypothyroidism, unspecified; Z89.512 Acquired absence of left leg below knee; Z95.2 Presence of prosthetic heart valve; Z79.899 Other long term (current) drug therapy; Z79.4 Long term (current) use of insulin; Z88.8 Allergy status to other drugs, medicaments and biological substances; D63.1 Anemia in chronic kidney disease; I25.10 Atherosclerotic heart disease of native coronary artery without angina pectoris; E11.40 Type 2 diabetes mellitus with diabetic neuropathy, unspecified

== ENCOUNTER → 2019-05-24 | Outpatient (CLI) | payer MEDICARE ==
[~2019-05-24] MED LIST changes: +PROP10TA56 PO; +SILV50CR EXT; +TRAZ-189 PO
--- NOTE | 2019-05-24 16:54 | REP ---
Ultrasound-guided paracentesis The procedure was performed by ANTONIO Sierra, under the direct supervision of Dr. Martinez. The risks and benefits of the procedure were explained to the patient and informed consent was obtained both verbally and written. Directly prior to the start of the procedure, a formal timeout was completed in the procedure room. Under ultrasound guidance, the largest pocket of fluid in the [left flank was localized and skin was marked. The skin was then prepped and draped in a sterile fashion. 10 ml of 1% lidocaine was used as a local anesthetic. Using ultrasound guidance, an 8-Macedonian multi side-hole catheter was inserted using trocar technique. 7,500 mL of cleared yellow colored fluid was withdrawn and discarded. The patient tolerated the procedure well and there were no immediate complications. After the appropriate monitored convalescence the patient was discharged from the department. Reviewed by ANTONIO Song 05/24/2019 04:27 P Electronically Signed by Vel Martinez MD 05/24/2019 04:44 P
== END ==
LOC: M RADPRO 13:04
PROVIDERS: ATTEND Internal Medicine Nephrology
DX: E87.70 Fluid overload, unspecified (principal); R18.8 Other ascites; Z79.4 Long term (current) use of insulin; Z79.899 Other long term (current) drug therapy
CPT/HCPCS: 49083; P9047

== ENCOUNTER 2019-06-01 12:54 | Emergency (ER) | payer MEDICARE ==
[~2019-06-01] VITALS: Ht 157.5 cm; Wt 73.5 kg
[~2019-06-01 12:54] MED LIST changes: -CALC667T PO; +CALC667T2 PO; -DULO1CAP2 PO; +DULO1CAP5 PO; +LINE1TAB6 PO; -LINE600T11 PO; +OYST500T13 PO; -OYST500T78 PO
[2019-06-01 15:19] LABS: ALBUMIN 1.5 GM/DL (3.2-5.2); BILIRUBIN,TOTAL 0.3 MG/DL (0.2-1.0); CREATININE FOR GFR 4.51 MG/DL (0.55-1.30); GLOMERULAR FILTRATION RATE 10.3 (>39); MAGNESIUM LEVEL 2.1 MG/DL (1.8-2.4); PHOSPHORUS LEVEL 5.4 MG/DL (2.5-4.9); POTASSIUM SERUM 4.9 MEQ/L (3.5-5.1); TOTAL PROTEIN 5.2 GM/DL (6.4-8.2)
[2019-06-01] MEDS ORDERED: HumuLIN R (REGULAR) INSULIN (NovoLIN R) **100U/ML** PER UNIT IV ONE (16:15)
[2019-06-01] MEDS ORDERED: HumuLIN R (REGULAR) INSULIN (NovoLIN R) **100U/ML** PER UNIT SC STA (16:35)
[2019-06-01 18:30] VITALS: BP 120/80
[2019-06-07] MEDS ORDERED: XANA0.25 PO (11:33)
== END 2019-06-01 18:30 | disposition home or self-care (01) ==
LOC: M ED 12:54
DX: R18.8 Other ascites (principal); Z91.19 Patient's noncompliance with other medical treatment and regimen; E11.65 Type 2 diabetes mellitus with hyperglycemia; N18.6 End stage renal disease; I50.9 Heart failure, unspecified; I25.10 Atherosclerotic heart disease of native coronary artery without angina pectoris; K76.89 Other specified diseases of liver; D64.9 Anemia, unspecified; I73.9 Peripheral vascular disease, unspecified; Z89.519 Acquired absence of unspecified leg below knee; Z95.5 Presence of coronary angioplasty implant and graft; Z99.2 Dependence on renal dialysis; Z88.1 Allergy status to other antibiotic agents; Z88.8 Allergy status to other drugs, medicaments and biological substances; Z79.899 Other long term (current) drug therapy; Z79.4 Long term (current) use of insulin

== ENCOUNTER → 2019-06-05 | Outpatient (CLI) | payer MEDICARE ==
[~2019-06-05] MED LIST changes: +CALCI50TA PO
[2019-06-05 13:01] VITALS: BP 114/58
--- NOTE | 2019-06-06 20:33 | REP ---
Ultrasound-guided paracentesis The procedure was performed by ANTONIO Sierra, under the direct supervision of Dr. Rivas. The risks and benefits of the procedure were explained to the patient and informed consent was obtained both verbally and written. Directly prior to the start of the procedure, a formal timeout was completed in the procedure room. Under ultrasound guidance, the largest pocket of fluid in the left flank was localized and skin was marked. The skin was then prepped and draped in a sterile fashion. 7 ml of 1% lidocaine was used as a local anesthetic. Using ultrasound guidance, an 8-Nicaraguan multi side-hole catheter was inserted using trocar technique. 4,500 mL of clear yellow colored fluid was withdrawn and discarded. The patient tolerated the procedure well and there were no immediate complications. After the appropriate monitored convalescence the patient was discharged from the department. Reviewed by ANTONIO Song 06/05/2019 01:04 P Electronically Signed by Aureliano Rivas MD 06/06/2019 08:25 P
== END ==
LOC: M RADPRO 10:36 → M IRPRO 10:36
PROVIDERS: ATTEND Internal Medicine Nephrology
DX: R18.8 Other ascites (principal); E87.79 Other fluid overload

== ENCOUNTER 2019-06-08 10:22 | Inpatient (IN) | payer MEDICARE ==
[~2019-06-08] VITALS: Ht 157.5 cm; Wt 67.0 kg
[2019-06-08] MEDS: LEVOTHYROXINE 125MCG TABLET (0.125MG) PO SCH (06:00)
[2019-06-08] MEDS: PANTOPRAZOLE 40MG TAB (PROTONIX) PO SCH (09:00)
[2019-06-08] MEDS: LEVEMIR (INSULIN DETEMIR) 1 UNITS/0.01ML SC SCH ×2 (09:00→21:05)
[2019-06-08] MEDS: DULoxetine 30 MG CAP (CYMBALTA) PO SCH (09:00)
[2019-06-08] MEDS: rOPINIRole 2MG TAB PO SCH ×2 (09:00→21:04)
[~2019-06-08 10:22] MED LIST changes: -CALCI50TA PO; -LIDOCAINE 2% INJ 100 MG/5 ML SDV (FOR ANES.) As Ordered ONE; -MIDAZOLAM INJ 2 MG/2 ML VIAL (J2250) As Ordered ONE; -ONDANSETRON 4MG/2ML VIAL (J2405) As Ordered ONE; -PROPOFOL 200 MG/20 ML VIAL As Ordered ONE; -fentaNYL 100 MCG/2 ML INJECTION (J3010) As Ordered ONE
[2019-06-08 11:50] LABS: ALBUMIN 1.5 GM/DL (3.2-5.2); ALT/SGPT 25 U/L (12-78); AMYLASE 12 U/L (25-115); BILIRUBIN,DIRECT 0.2 MG/DL (0.0-0.2); BILIRUBIN,TOTAL 0.3 MG/DL (0.2-1.0); BLOOD UREA NITROGEN 106 MG/DL (7-18); CALCIUM LEVEL 5.2 MG/DL (8.8-10.2); CARBON DIOXIDE LEVEL 15 MEQ/L (21-32); CHLORIDE LEVEL 101 MEQ/L (98-107); CK-MB VALUE MASS 6.2 NG/ML (<3.6); CPK CREATINE PHOSPHOKINASE 147 U/L (26-192); CREATININE FOR GFR 9.37 MG/DL (0.55-1.30); GLOMERULAR FILTRATION RATE 4.4 (>39); GLUCOSE, FASTING 227 MG/DL (70-100); LIPASE 62 U/L (73-393); MB/CK RELATIVE INDEX 4.22 (< OR =4); SODIUM LEVEL 133 MEQ/L (136-145); TOTAL PROTEIN 6.1 GM/DL (6.4-8.2); TROPONIN I < 0.02 NG/ML (< 0.10)
[2019-06-08] MEDS ORDERED: CALCIUM GLUCONATE 1,000 MG in D5W MINI-BAG PLUS 100 ML IV ONE (12:00)
--- NOTE | 2019-06-08 12:02 | REP ---
CHEST, SINGLE VIEW: Single view of the chest is performed and compared to a prior study of 05/09/2019. Cardiomegaly is again noted. There is mild diffuse chronic interstitial prominence without acute infiltrate. The mediastinal silhouette is unchanged. Electronically Signed by Aureliano Rivas MD 06/11/2019 12:58 P
[2019-06-08 12:39] LABS: INR 1.52
[2019-06-08 12:40] LABS: PARTIAL THROMBOPLASTIN TIME 35.4 SECONDS (25.0-38.4)
[2019-06-08] MEDS ORDERED: LACTULOSE 20 GM/30 ML SYRUP UD PO ONE (13:30)
[2019-06-08] MEDS ORDERED: GLUCAGON FOR INJ 1 MG VIAL (J1610) SC PRN (14:00)
[2019-06-08] MEDS ORDERED: DEXTROSE 50% 50 ML SYRINGE IV PRN (14:00)
[2019-06-08] MEDS ORDERED: GLUCOSE 4 GM CHEW TABLET PO PRN (14:00)
[2019-06-08 14:11] LABS: BASO % 0.4 % (0.0-1.0); EOS # 0.6 10^3/uL (0.0-0.50); HEMATOCRIT 27.7 % (36.0-47.0); LYMPH # 1.2 10^3/uL (1.5-4.5); LYMPH % 10.7 % (24.0-44.0); MEAN CORPUSCULAR HEMOGLOBIN 30.7 pg (27.0-33.0); MEAN CORPUSCULAR HGB CONC 32.5 g/dl (32.0-36.5); MEAN CORPUSCULAR VOLUME 94.5 fl (80.0-96.0); MONO # 1.2 10^3/uL (0.0-0.8); MONO % 10.8 % (0.0-5.0); NEUTROPHILS # 7.9 10^3/uL (1.8-7.7); NEUTROPHILS % 72.4 % (36.0-66.0); PLATELET COUNT, AUTOMATED 221 10^3/uL (150-450); RED BLOOD COUNT 2.93 10^6/uL (4.00-5.40); WHITE BLOOD COUNT 10.9 10^3/uL (4.0-10.0)
--- NOTE | 2019-06-08 16:45 | HPEPDOC ---
[facility] Medical History & Physical Date of Admission Jun 08, 2019 Date of Service: Jun 08, 2019 Attending Physician: EDWIN MARISCAL MD History and Physical CHIEF COMPLAINT: Ms. Hernandez was referred to the ER during wound debridement appointment this morning due to electrolyte abnormalities on lab studies (hyperkalemia, hypocalcemia). HISTORY OF PRESENT ILLNESS: Ms. Hernandez presented to the ER this morning due to being referred during her wound debridement appointment due to electrolyte abnormalities found on lab studies (hyperkalemia, hypocalcemia). She was examined this afternoon in hemodialysis. She was alert and oriented and able to answer questions, however was sleepy throughout most of the exam. She reports currently being asymptomatic and feels normal. She states that this morning, she had a debridement appointment for her left BKA and informed us that she believed the wound was infected. There is a wound vac currently placed over her lower extremity. Her right leg is swollen and erythematous with signs of peripheral venous disease and she notes mild tenderness to palpation. She has an ulcer on the right foot currently bandaged with no drainage. She states that she has been noncompliant with hemodialysis due to diarrhea which is a chronic problem for her. Her last hemodialysis appointment was on 05/28 and she is currently on a MWF schedule. She states that her paracentesis appointments have increased in frequency from every 2 weeks to approximately every 1 week. She denies fever, diaphoresis, abdominal pain, nausea, vomiting, chest pain, shortness of breath, palpitations, dizziness, lightheadedness, syncope, and headache. She is currently hypotensive in hemodialysis and tachycardic with HR in the 140s, however she is asymptomatic and currently somnolent. PAST MEDICAL HISTORY: 1. End-stage renal disease on hemodialysis (MWF) 2. End-stage liver disease on paracentesis every two weeks, recent increase in frequency (last paracentesis: 06/05 and 05/24) 3. Type 2 diabetes, Insulin Dependent 4. Chronic anemia due to chronic kidney disease. 5. Peripheral vascular disease status post left BKA. 6. Coronary artery disease status post stenting. 7. Liver cirrhosis with recurrent ascites 8. HFpEF 9. Hypothyroidism 10. HTN 11. DLP 12. Depression/anxiety PAST SURGICAL HISTORY: 1. Left BKA. 2. Left arteriovascular (AV) fistula. 3. Appendectomy. 4. Hysterectomy. 5. Cataract surgery. SOCIAL HISTORY: Marital status: Children: Daughter who she lives with Tobacco use: Denies ETOH: Denies Illicit drug use: Denies IV drug use: Denies FAMILY HISTORY: No pertinent family medical history. ALLERGIES: Please see below. HOME MEDICATIONS: Please see below. PHYSICAL EXAMINATION: VITAL SIGNS: See below. GENERAL APPEARANCE: Patient was examined in hemodialysis, somnolent but able to answer questions, no acute distress, AAOx3 HEENT: NC, AT, PERRLA, moist mucous membranes CARDIOVASCULAR: Regular rate and rhythm, Normal S1S2, no murmurs, rubs or gallops appreciated LUNGS: Clear to auscultation bilaterally, no rales, rhonchi or wheezing appreciated ABDOMEN: Soft, distended, non-tense, no tenderness to palpation, no rebound, rigidity, guarding EXTREMITIES: s/p left BKA, wound vac placement on left stump, right leg shows +1 pitting edema, erythematous, with signs of peripheral vascular disease, no signs of infection, no wound drainage NEUROLOGICAL: AAOx3, somnolent, able to move all four extremities voluntarily PSYCHIATRIC: Appropriate affect however somnolent LABORATORY DATA: See below. IMAGIN. Chest x-ray: Cardiomegaly is again noted. There is mild diffuse chronic interstitial prominence with acute infiltrate. The mediastinal silhouette is unchanged. MICROBIOLOGY: Please see below. ASSESSMENT & PLAN: 1. Hyperkalemia and Hypocalcemia - Electrolyte imbalance - EKG without any peaked T waves, no significant changes from prior EKGs -Currently asymptomatic -Calcium gluconate given in ER -Patient currently in hemodialysis - will improve electrolyte imbalance -Recheck renal profile after hemodialysis is complete 2. Encephalopathic - multifactorial: hepatic, metabolic, uremic -Patient has history of liver cirrhosis complicated by recurrent ascites with hyperammonemia -1 dose of Lactulose ordered -Electrolytes will improve with hemodialysis -Hold sedating medications 3. ESRD on dialysis (MWF) -History of noncompliance -Nephrology consulted, appreciate their help 4. Cirrhosis with recurrent ascites -Previously received paracentesis every 2 weeks, with increased frequency over the past few weeks to approximately one a week -Most recent paracentesis 06/05 and 05/24 -Currently asymptomatic and abdomen is not tense, will monitor -Ultimately will need paracentesis 5. s/p left BKA amputation secondary to PVD -04/02/[address] Estrella for necrosis and gangrene of the left foot with extending cellulitis -No signs of infection, no fever, WBCs essentially normal, no drainage, will monitor -Wound care, wound vac 6. HFpEF 7. Hypothyroidism -c/w home meds 8. IDDM2 -ISS 9. Depression/insomnia -c/w home meds 10. DLP -c/w home statin DVT prophylaxis: Heparin sc CODE STATUS: DNR/DNI I performed a history and physical examination of the patient and discussed their management with the above documenter. I reviewed the note and agree with the documented findings and plan of care.. Poor overall prognosis life expectancy likely less than 6 months we'll continue end-of-life advance care discussions throughout hospitalization Vital Signs Vital Signs Date Time Temp Pulse Resp B/P (MAP) Pulse Ox O2 Delivery O2 Flow Rate FiO2 06/08/19 13:15 77 121/65 (83) 100 06/08/19 10:23 96.6 18 Room Air Laboratory Data Labs 24H Laboratory Tests 2 06/08/19 08:36: Immature Granulocyte % (Auto) 0.7, White Blood Count 10.9H, Red Blood Count 2.93L, Hemoglobin 9.0L, Hematocrit 27.7L, Mean Corpuscular Volume 94.5, Mean Corpuscular Hemoglobin 30.7, Mean Corpuscular Hemoglobin Concent 32.5, Red Cell Distribution Width 18.6H, Platelet Count 221, Neutrophils (%) (Auto) 72.4H, Lymphocytes (%) (Auto) 10.7L, Monocytes (%) (Auto) 10.8H, Eosinophils (%) (Auto) 5.0H, Basophils (%) (Auto) 0.4, Neutrophils # (Auto) 7.9H, Lymphocytes # (Auto) 1.2L, Monocytes # (Auto) 1.2H, Eosinophils # (Auto) 0.6H, Basophils # (Auto) 0.0, Nucleated Red Blood Cells % (auto) 0.0, Anion Gap 17H, Glomerular Filtration Rate 4.4L, Calcium Level 5.2*L, Aspartate Amino Transf (AST/SGOT) 28, Alanine Aminotransferase (ALT/SGPT) 25, Alkaline Phosphatase 424H, Total Bilirubin 0.3, Direct Bilirubin 0.2, Total Creatine Kinase 147, Creatine Kinase MB 6.2H, Creatine Kinase MB Relative Index 4.22H, Troponin I < 0.02, Total Protein 6.1L, Albumin 1.5L, Albumin/Globulin Ratio 0.33L, Amylase Level 12L, Lipase 62L 06/08/19 10:55: Ammonia 79H 06/08/19 11:03: Bedside Glucose (Misc Panel) 231H 06/08/19 11:04: POC Glucose (Misc Panel) 234H, POC Sodium (Misc Panel) 129L, POC Potassium (Misc Panel) 7.5*H, POC Chloride (Misc Panel) 101, POC Total CO2 (Misc Panel) 17.0L, POC Blood Urea Nitrogen (Misc Panel 120H, POC Ionized Calcium (Misc Panel) 2.4*L, POC Creatinine (Misc Panel) 9.9H, POC Hematocrit (Misc Panel) 26.0L 06/08/19 12:10: Prothrombin Time 18.0H, Prothromb Time International Ratio 1.52, Activated Partial Thromboplast Time 35.4, Lactic Acid Level 1.3 CBC/BMP Laboratory Tests 06/08/19 08:36 Red Blood Count 2.93 L, Mean Corpuscular Volume 94.5, Mean Corpuscular Hemoglobin 30.7, Mean Corpuscular Hemoglobin Concent 32.5, Red Cell Distribution Width 18.6 H, Neutrophils (%) (Auto) 72.4 H, Lymphocytes (%) (Auto) 10.7 L, Monocytes (%) (Auto) 10.8 H, Eosinophils (%) (Auto) 5.0 H, Basophils (%) (Auto) 0.4, Neutrophils # (Auto) 7.9 H, Lymphocytes # (Auto) 1.2 L, Monocytes # (Auto) 1.2 H, Eosinophils # (Auto) 0.6 H, Basophils # (Auto) 0.0 Home Medications Scheduled Duloxetine Hcl (Duloxetine HCl) 30 Mg Cap, 30 MG PO DAILY Gabapentin (Gabapentin) 100 Mg Capsule, 300 MG PO QHS Insulin Detemir (Levemir) 100 Unit/1 Ml Vial, 10 UNITS SC BID Insulin Lispro (Humalog) 100 Unit/Ml Inj, 1 DOSE SC AC PER SLIDING SCALE Levothyroxine Sodium (Synthroid) 125 Mcg Tab, 125 MCG PO DAILY Mineral Oil/Petrolatum,White (Hydrocerin Cream) 113 Gm Cream..g., 1 DOSE TOP DAILY APPLIES TO RIGHT LOWER EXTREMITIES Pantoprazole Sodium (Pantoprazole Sodium) 40 Mg Tab, 40 MG PO DAILY Ropinirole HCl (Ropinirole HCl) 2 Mg Tab, 6 MG PO BID Silver Sulfadiazine (Ssd) 50 Gm Cream..g., 1 DOSE EXT DAILY USED ON BIG TOE OF RIGHT FOOT Simvastatin (Simvastatin) 20 Mg Tab, 20 MG PO QHS Trazodone HCl (Trazodone HCl) 100 Mg Tablet, 200 MG PO QHS Scheduled PRN Alprazolam (Xanax) 0.25 Mg Tablet, 0.25 MG PO BID PRN for ANXIETY Calcium Carbonate (Tums) 500 Mg Chw, 1,000 MG PO PC PRN for HEARTBURN/IND IGESTION Oxycodone HCl/Acetaminophen (Percocet 5-325 mg Tablet) 1 Each Tablet, 1 TAB PO Q6H PRN for PAIN Patiromer Calcium Sorbitex (Veltassa) 8.4 Gm Pow, 8.4 GM PO ASDIRECTED PRN for MISSING DIALYSIS Allergies Coded Allergies: pregabalin (Verified Adverse Reaction, Intermediate, "feeling weird", SI thoughts., 06/07/19) vancomycin (Verified Adverse Reaction, Mild, DIARRHEA, 06/07/19) A-FIB/CHADSVASC A-FIB History Current/History of A-Fib/PAF?: IVANA Kim OMS-3 Jun 08, 2019 16:45 EDWIN MARISCAL MD Jun 08, 2019 16:53
[2019-06-08 17:25] VITALS: BP 99/60
[2019-06-08] MEDS: HumaLOG INSULIN (NovoLOG) PER UNIT SC SCH ×2 (18:33→20:43)
[2019-06-08 18:45] LABS: ALBUMIN 1.5 GM/DL (3.2-5.2); CALCIUM LEVEL 6.5 MG/DL (8.8-10.2); CREATININE FOR GFR 4.64 MG/DL (0.55-1.30); GLOMERULAR FILTRATION RATE 9.9 (>39); PHOSPHORUS LEVEL 4.9 MG/DL (2.5-4.9); POTASSIUM SERUM 3.9 MEQ/L (3.5-5.1)
[2019-06-08 20:00] VITALS: BP 124/58
--- NOTE | 2019-06-08 20:35 | ECGEPIP ---
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
[2019-06-08] MEDS: SIMVASTATIN 20 MG TAB PO SCH (21:04)
[2019-06-08] MEDS: HEPARIN SOD (PORCINE) 5000 UNITS/ML VIAL SC SCH (21:05)
[2019-06-08 23:59] VITALS: BP 115/57
[2019-06-09] VITALS (9 sets, daily range): BP systolic 94–123; BP diastolic 50–68
[2019-06-09] MEDS: LEVOTHYROXINE 125MCG TABLET (0.125MG) PO SCH (05:38)
--- NOTE | 2019-06-09 06:55 | ECGEPIP ---
[facility] Test Date: 2019-06-08 Pat Name: GUI JEAN Department: Room: [place] [address] Gender: Female Cake Puncher: REGINA : 1950 Requested By: SHAILA LICEA Order Number: [id number] Reading MD: Tri Fisher Measurements Intervals [place] Rate: 134 P: MA: 105 QRS: QRSD: 93 T: 132 QT: 320 QTc: 479 Interpretive Statements POSSIBLE 2;1 A FLUTTER Left anterior fascicular block NEW ANTERODIAL INFARCTION, OF INDETERMINATE AGE OLD R WAVE PROG MORE EXTENSIVE MODERATE T-WAVE ABNORMALITY, CONSIDER LATERAL ISCHEMIA ABD PROLONGED QT NEW C/W 06/08/19 11 05 Electronically Signed on 06-09-2019 6:55:16 EDT by Tri Fisher
--- NOTE | 2019-06-09 07:14 | CR ---
DATE OF CONSULTATION: 06/08/2019 REQUESTING PHYSICIAN: Eugene Alves MD REASON FOR CONSULTATION: Hyperkalemia, volume overload and missed hemodialysis treatments in this lady with end-stage renal disease. HISTORY OF PRESENT ILLNESS: Mrs. Hernandez is very well known to me from her dialysis over the last couple of years and recurrent hospitalizations. She has multiple chronic medical problems including longstanding diabetes which has been poorly controlled, hypertension, congestive heart failure, cirrhosis of liver with recurrent ascites requiring paracentesis, peripheral vascular disease and anemia with prior history of GI bleed. She also has coronary artery disease and hypothyroidism. The patient has been noncompliant with dialysis treatments and has not shown up for dialysis since May 28 despite multiple reminders. She was scheduled for debridement of her left leg stump today where she did come and was noticed to have hyperkalemia and she also informed the staff that she had missed dialysis for more than a week. Procedure was postponed and she was sent to emergency room for evaluation. She was found to be very weak and volume overloaded. She did have a paracentesis done on June 05, however, her abdomen has developed significant ascites again. She is admitted due to need for dialysis and a nephrology consultation was requested. PAST MEDICAL AND SURGICAL HISTORY: Significant for 1. Longstanding poorly controlled diabetes. 2. Hypertension. 3. Coronary artery disease. 4. Hyperlipidemia. 5. Hypothyroidism. 6. History of congestive heart failure. 7. History of cirrhosis of liver with recurrent ascites. 8. History of peripheral vascular disease, status post left [id number] amputation. 9. History of anemia with GI bleed and end-stage renal disease. She has required transfusions in the past. 10. Depression and anxiety. PAST SURGICAL HISTORY: Significant for: AV fistula creation in her left arm. Appendectomy. Hysterectomy. Cataract surgery. Endoscopies. Left [id number]-jvc-[id number] amputation. PERSONAL AND SOCIAL HISTORY: The patient is recently . She denies any alcohol or drug use. She has no history of smoking. Family history is negative for end-stage renal disease. MEDICATIONS: Her home medications include: - Duloxetine 30 mg daily - gabapentin 300 mg at bedtime. - Levemir insulin 10 units b.i.d. - Humalog insulin per sliding scale - levothyroxine 125 mcg daily - Protonix 40 mg daily - Requip 2 mg 3 tablets b.i.d. - simvastatin 20 mg at bedtime - trazodone 100 mg 2 tablets at bedtime - Xanax 0.25 mg as needed for anxiety - calcium carbonate 500 mg 2 tablets p.r.n. for heartburn - Percocet 1 tablet every 6 hours p.r.n. pain - VELTASSA 8.4 grams p.r.n. for missed dialysis treatments. ALLERGIES: She has allergies to: 1. LYRICA. 2. VANCOMYCIN. REVIEW OF SYSTEMS: The patient has history of noncompliance with medications and treatments. She denies any fever or chills but does report diarrhea. Ears, nose and throat are unremarkable. She is legally blind due to diabetic retinopathy. Cardiovascular system is significant for peripheral edema and a history of congestive heart failure. She also has coronary artery disease, but denies any chest pain at present. Respiratory system is significant for history of chronic obstructive pulmonary disease (COPD) and congestive heart failure. She is chronically volume overloaded and short of breath. Gastrointestinal (GI) system is significant for cirrhosis of the liver with recurrent ascites requiring paracentesis. She had 4.5 liters paracentesis done just 3 days ago. Musculoskeletal system is significant for peripheral vascular disease and nonhealing left leg stump following a BKA. She has also ulcer on her right foot also. Hematological system is significant for anemia requiring transfusions. Psychosocial system is significant for depression, anxiety and noncompliance. PHYSICAL EXAMINATION: Patient is somewhat lethargic, but she was able to answer questions. Temperature 97.8 degrees Fahrenheit, heart rate 80 per minute and respiratory rate 16 per minute. Blood pressure 121/65 mmHg and oxygen saturation 98% on 2 liters oxygen. She is pale looking and chronically ill looking. Nose and throat are unremarkable. Neck is supple and jugular venous distention (JVD) is elevated. Heart sounds are regular and lungs with diminished breath sounds at bases bilaterally. Abdomen is markedly distended with ascites and nontender. Bowel sounds are present. Extremities have chronic stasis changes and peripheral edema but no cyanosis or clubbing. She has a left [id number]-[id number] amputation and stump is wrapped in dressing. Neurologically she is able to answer questions but somewhat lethargic. LABORATORY DATA: WBC count is 10.9, hemoglobin 9.0 and hematocrit 27.7. Platelets 221. INR 1.52. Sodium 133, potassium 6.0, CO2 15, BUN 106 and creatinine 9.37. Calcium level 5.2, total protein 6.1 and albumin 1.5. Troponin less than 0.02. PROBLEMS: 1. Uremia. She has missed dialysis for more than a week and probably has uremic symptoms. Her mentation is somewhat diminished. She will need to be dialyzed today. 2. Hyperkalemia. Again this is related to end-stage renal disease and missed dialysis treatments. The patient will be dialyzed as soon as she gets admitted. 3. Metabolic acidosis. Again this is related to missed dialysis treatments and end-stage renal disease and it will be corrected with dialysis. I would not recommend giving her any sodium bicarbonate due to hypervolemia. 4. Protein calorie malnutrition. Chronic issue due to poor oral intake and nonhealing left leg stump. She has had chronic GI problems with diarrhea and probably poor oral intake. 5. Anemia. She does have anemia of chronic kidney disease and in addition she also has had history of GI bleed. At present her anemia is only moderate and does not need urgent transfusion. 6. Cirrhosis of liver with recurrent ascites. She had a paracentesis done just 3 days ago and has significant amount of ascites once again. She is likely to require further paracentesis soon. 7. Peripheral vascular disease, status post left bkrma-suj-orsw amputation. The patient has been doing poorly follow her amputation and wound has not healed. She is malnourished and chronically edematous. Chances of her leg stump is healing are minimal. 8. Resuscitation status. The patient did have a DO NOT RESUSCITATE signed, however daughter reports that she rescinded it. I have discussed with her at length about her poor prognosis due to multiorgan involvement and failure to thrive. She also has history of chronic noncompliance and not likely to improve. At this point, she is not ready for making a decision about comfort measures or hospice. We will continue to follow her and see if she changes her mind. Thank you for involving me in the care of Mrs. Hernandez. We will follow her along with you.
[2019-06-09 07:46] LABS: HEMATOCRIT 26.2 % (36.0-47.0); HEMOGLOBIN 8.1 g/dl (12.0-15.5); MEAN CORPUSCULAR HEMOGLOBIN 28.7 pg (27.0-33.0); MEAN CORPUSCULAR HGB CONC 30.9 g/dl (32.0-36.5); MEAN CORPUSCULAR VOLUME 92.9 fl (80.0-96.0); PLATELET COUNT, AUTOMATED 200 10^3/uL (150-450); RED BLOOD COUNT 2.82 10^6/uL (4.00-5.40); WHITE BLOOD COUNT 11.6 10^3/uL (4.0-10.0)
[2019-06-09 08:10] LABS: CALCIUM LEVEL 6.1 MG/DL (8.8-10.2); CREATININE FOR GFR 5.46 MG/DL (0.55-1.30); GLOMERULAR FILTRATION RATE 8.2 (>39); POTASSIUM SERUM 4.1 MEQ/L (3.5-5.1)
[2019-06-09] MEDS: SILVER SULFADIAZINE 1% CR 50 GM JAR EXT SCH ×2 (08:56→09:21)
[2019-06-09] MEDS: HumaLOG INSULIN (NovoLOG) PER UNIT SC SCH ×4 (08:58→20:56)
[2019-06-09] MEDS: LEVEMIR (INSULIN DETEMIR) 1 UNITS/0.01ML SC SCH ×2 (08:59→20:56)
[2019-06-09] MEDS: DULoxetine 30 MG CAP (CYMBALTA) PO SCH (09:00)
[2019-06-09] MEDS ORDERED: SILVER SULFADIAZINE 1% CR 50 GM JAR EXT SCH ×2 (09:00)
[2019-06-09] MEDS: PANTOPRAZOLE 40MG TAB (PROTONIX) PO SCH (09:00)
[2019-06-09] MEDS: rOPINIRole 2MG TAB PO SCH ×2 (09:00→20:55)
[2019-06-09] MEDS: HEPARIN SOD (PORCINE) 5000 UNITS/ML VIAL SC SCH ×2 (09:18→20:55)
[2019-06-09] MEDS: METOCLOPRAMIDE INJ 10MG/2ML VIAL (J2765) IV PRN (10:03)
[2019-06-09] MEDS ORDERED: METOPROLOL 5 MG/5 ML VIAL IV STA (11:30)
[2019-06-09] MEDS ORDERED: METOPROLOL 5 MG/5 ML VIAL IV ONE (12:00)
[2019-06-09] MEDS ORDERED: HEPARIN 1,000 UNITS/ML 10ML VIAL (FOR RADIOLOGY& DIALYSIS ONLY) IV ONE (12:00)
[2019-06-09] MEDS: PERCOCET 5MG/325MG TAB PO PRN (14:10)
--- NOTE | 2019-06-09 14:58 | ECGEPIP ---
[facility] Test Date: 2019-06-09 Pat Name: GUI JEAN Department: Room: [place] [address] Gender: Female Bright Cutter: REGINA : 1950 Requested By: SHAILA LICEA Order Number: [id number] Reading MD: Tri Fisher Measurements Intervals [place] Rate: 122 P: GA: 202 QRS: QRSD: 81 T: 125 QT: 337 QTc: 481 Interpretive Statements ECTOPIC ATRIAL TACHYCARDIA AGREE NOTE P WAVE AVR I DID NOT SEE BUT IT WAS THERE YESTERDAY WELL. RYTHYM WAS THE SAME YESTERDAY(ECTOPIC ATRIAL TACHY) WAS NOT A FLUTTER YESTERDAY READ MARKED LEFT AXIS DEVIATION LAFB ANTEROSEPTAL MYOCARDIAL INFARCTION, PROBABLY OLD PROLONGED QTC SOME IMPROVEMENT IN T WAVE ABN FROM 06/08/19 Electronically Signed on 06-09-2019 14:58:23 EDT by Tri Fisher
[2019-06-09] MEDS ORDERED: ALPRAZolam 0.25 MG TAB PO PRN (19:00)
[2019-06-09] MEDS ORDERED: CALCIUM CARBONATE 500 MG CHEW U/D PO PRN (19:00)
--- NOTE | 2019-06-09 19:04 | IPNPDOC ---
Text Note Date of Service The patient was seen on 06/09/19. NOTE SUBJECTIVE: Patient examined at bedside. Feeling better after urgent HD yest erday. More interactive. Otherwise patient denies chest pain, shortness breath, nausea, vomiting, fevers, chills OBJECTIVE PHYSICAL EXAMINATION: VITAL SIGNS: Please see below. GENERAL: Sitting up in bed awake alert oriented speaking in complete sentences no acute distress] HEENT: Moist mucous membranes no elevation in CVP CARDIOVASCULAR: S1 S2 regular rate controlled, reg rhythm. 3/6 systolic murmur RESPIRATORY: Clear to auscultation bilaterally. ABDOMINAL: Bowel sounds present abdomen soft and non-tender EXTREMITIES: [No clubbing cyanosis. 1+edema b/l LE, left leg BKA with wound vac, right leg showing signs of PVD and chronic venous stasis changes NEUROLOGICAL: Spontaneously moves all 4 extremities cranial 2 through 12 grossly intact no gross focal deficits appreciated PSYCHOLOGICAL: Appropriate LABORATORY DATA, MICROBIOLOGY: Please see below. IMAGING STUDIES: CXR 06/08: Cardiomegaly is again noted. There is mild diffuse chronic interstit ial prominence with acute infiltrate. The mediastinal silhouette is unchanged. ASSESSMENT AND PLAN: This is a with . PROBLEMS: 1. Electrolyte imbalance -resolved with HD yesterday. Was 2/2 pt noncompliance with HD, with last session being 05/28/19. Asymptomatic & stable. Feels better with HD. 2. Encephalopathy -improved, multifactorial: hepatic, metabolic, uremic -may resume home meds as mentation improves -Patient has history of liver cirrhosis complicated by recurrent ascites with hyperammonemia. Pt is s/p lactulose x1, e-lytes normalized with urgent HD 06/08 3. ESRD on dialysis (MWF) -History of noncompliance. Importance of following up on medical care emphasized with pt, however this is an ongoing chronic issue -Nephrology consulted, appreciate their help 4. Cirrhosis with recurrent ascites -Previously received paracentesis every 2 weeks, with increased frequency over the past few weeks to approximately one a week -Most recent paracentesis 06/05 and 05/24 -Currently asymptomatic and abdomen is not tense, will monitor 5. s/p left BKA amputation secondary to PVD -04/02/[address] Estrella for necrosis and gangrene of the left foot with extending cellulitis -No signs of infection, no fever, WBCs essentially normal, no drainage, will monitor -Dressing changes and wound as per Dr. Estrella, who is consulted. Appreciate input. -Dr. Estrella plans for wound debridement inpatient due to concern of noncompliance in o/p setting 6. Tachycardia pt otherwise stable and asymptomatic. Sinus tach on monitor. Medical intervention limited by chronic hypotension. 3 EKGs this admission thus far reveal no ST changes, all sinus tach. Likely is 2/2 pain of left leg and also anxiety since sedatives were on hold. Mentation is better, and HR normalized to 70s with pain med administration. Monitor HFpEF stable Hypothyroidism -c/w home meds IDDM2 -ISS Depression/insomnia -c/w home meds DLP -c/w home statin CODE STATUS: DNR/DNI DVT prophylaxis: Heparin sc DISPOSITION: Pt has a poor prognosis overall, which has been discussed with pt multiple occasions. She is agreeable to speak to Hospice, who have been consulted. In meanwhile, will await wound debridement by Dr. Estrella and monitor cardiac status on tele. VS,Fishbone, I+O VS, Fishbone, I+O Laboratory Tests 06/09/19 07:28 Red Blood Count 2.82 L, Mean Corpuscular Volume 92.9, Mean Corpuscular Hemoglobin 28.7, Mean Corpuscular Hemoglobin Concent 30.9 L, Red Cell Distribution Width 18.6 H, Calcium Level 6.1 L Vital Signs Date Time Temp Pulse Resp B/P (MAP) Pulse Ox O2 Delivery O2 Flow Rate FiO2 06/09/19 16:30 78 110/60 (77) 06/09/19 16:00 97.7 18 95 06/09/19 04:00 2.0 06/08/19 10:23 Room Air I&O- Last 24 Hours up to 6 AM 06/09/19 06:00 Intake Total 100 ml Output Total 500 ml Balance -400 ml SHAILA LICEA DO Jun 09, 2019 19:04
[2019-06-09] MEDS ORDERED: DARBEPOETIN 100 MCG/0.5 ML *DIALYSIS* SYRINGE (J0882) IV SCH (19:30)
[2019-06-09] MEDS: SIMVASTATIN 20 MG TAB PO SCH (20:55)
[2019-06-09] MEDS: GABAPENTIN 300 MG CAP PO SCH (20:55)
[2019-06-10 04:00] VITALS: BP 104/56
[2019-06-10] MEDS: LEVOTHYROXINE 125MCG TABLET (0.125MG) PO SCH (05:37)
[2019-06-10 05:55] LABS: HEMATOCRIT 26.6 % (36.0-47.0); HEMOGLOBIN 8.2 g/dl (12.0-15.5); MEAN CORPUSCULAR HEMOGLOBIN 28.9 pg (27.0-33.0); MEAN CORPUSCULAR HGB CONC 30.8 g/dl (32.0-36.5); MEAN CORPUSCULAR VOLUME 93.7 fl (80.0-96.0); PLATELET COUNT, AUTOMATED 210 10^3/uL (150-450); RED BLOOD COUNT 2.84 10^6/uL (4.00-5.40); WHITE BLOOD COUNT 11.1 10^3/uL (4.0-10.0)
[2019-06-10 06:38] LABS: CALCIUM LEVEL 6.1 MG/DL (8.8-10.2); CREATININE FOR GFR 6.38 MG/DL (0.55-1.30); GLOMERULAR FILTRATION RATE 6.9 (>39); POTASSIUM SERUM 4.6 MEQ/L (3.5-5.1)
[2019-06-10] MEDS: HumaLOG INSULIN (NovoLOG) PER UNIT SC SCH ×4 (07:30→21:00)
[2019-06-10] MEDS: METOCLOPRAMIDE INJ 10MG/2ML VIAL (J2765) IV PRN (07:52)
[2019-06-10] MEDS: HEPARIN SOD (PORCINE) 5000 UNITS/ML VIAL SC SCH ×2 (08:33→21:24)
[2019-06-10] MEDS: LEVEMIR (INSULIN DETEMIR) 1 UNITS/0.01ML SC SCH ×2 (08:34→21:24)
[2019-06-10] MEDS: rOPINIRole 2MG TAB PO SCH ×2 (08:34→21:23)
[2019-06-10] MEDS: PANTOPRAZOLE 40MG TAB (PROTONIX) PO SCH (08:34)
[2019-06-10] MEDS: SILVER SULFADIAZINE 1% CR 50 GM JAR EXT SCH (08:34)
[2019-06-10] MEDS: DULoxetine 30 MG CAP (CYMBALTA) PO SCH (08:34)
[2019-06-10] MEDS: DAKIN'S 0.25% HALF-STRENGTH SOLN 480 ML TOP SCH ×2 (08:35→21:24)
[2019-06-10 09:00] VITALS: BP 120/60
[2019-06-10 12:00] VITALS: BP 110/53
[2019-06-10] MEDS: METOCLOPRAMIDE 5 MG TAB PO SCH ×2 (12:26→18:03)
--- NOTE | 2019-06-10 14:42 | IPN ---
DATE: 06/09/2019 SUBJECTIVE: Dalila is seen and examined this morning at the bedside. She was dialyzed yesterday but only 500 mL of fluid could be removed because of tachycardia during her hemodialysis treatment. I did advise her that she should have another dialysis treatment today, especially in view of the fact that she has been skipping multiple treatments as an outpatient. However the patient refused to be dialyzed today. Vital signs: Temperature 97.7, pulse 140, repeat pulse 78, respiratory rate 18, blood pressure 110/60, saturating 95% on room air. Intake yesterday was not recorded. Dialysis yesterday could only remove 500 mL. General: The patient is seen lying down in bed, chronically ill appearing but easily arousable and oriented to person, place and situation. Ears, nose and throat are unremarkable. The jugular veins are significantly elevated. Heart sounds are regular. Lungs have diminished breath sounds at both bases. There are crackles. The abdomen is significantly distended with ascites and nontender. The extremities show left upper extremity fistula, which is patent with thrill and bruit, and the right lower extremity has chronic stasis changes and peripheral edema. She has a left [id number] amputation. The stump is wrapped in dressings. Neurologic: She is drowsy but easily arousable, recognizes me, is oriented to person, place, situation and follows commands and is able to have a simple conversation. LABORATORY DATA: White count 11.6, hemoglobin 8.1, platelets 200. Sodium 138, potassium 4.1, BUN 49, creatinine 5.4. Inpatient medications reviewed by myself and noted that she was started on intravenous (IV) Lopressor. Remainder of medications are unchanged from prior. PROBLEMS: 1. End-stage renal disease, on hemodialysis on a Tuesday, Tuesday, Tuesday schedule. The patient is chronically noncompliant with dialysis and routinely misses multiple treatments on a monthly basis. She is chronically volume overloaded due to noncompliance as well. She was dialyzed yesterday. We were only able to take off 500 mL of fluid due to tachycardiac complicating her treatment. I did advise her that she should go for another hemodialysis treatment today; however, she absolutely refused. 2. Diastolic congestive heart failure. The patient is volume overloaded. She is noncompliant with her hemodialysis treatments, and she is chronically volume overloaded in the outpatient setting as well. We were only able to remove 500 mL of fluid yesterday due to tachycardia during the hemodialysis treatment. The patient was advised to have another additional dialysis session today but she refused. Her next dialysis treatment will be on Tuesday. 3. Cirrhosis with recurrent ascites. She has been requiring more frequent paracentesis due to gross noncompliance with her hemodialysis treatments and chronically volume overloaded state. She should receive albumin infusions with paracentesis. 4. Severe protein-calorie malnutrition, portends a very poor prognosis. Albumin of 1.5. Given the hemodynamic instability on her last dialysis treatment, I will plan to dialyze her with albumin support on Tuesday. 5. Anemia related to chronic renal failure, hemodilution/volume overload and chronic inflammatory state. There is no urgent need for transfusion at this point. We will continue with Berny with dialysis. 6. Peripheral vascular disease, status post left [id number] amputation with protein-calorie malnutrition, chronic volume overload and nonhealing wound. She follows with Dr. Estrella for wound care. 7. Prognosis: The patient overall has very poor long-term prognosis given her noncompliance, end-stage renal disease, congestive heart failure, volume overload, peripheral vascular disease, cirrhosis and ascites, recurrent hospitalizations, debility, and decline.
[2019-06-10] MEDS: OYSTER SHELL CALCIUM 500 MG TAB PO SCH ×2 (15:08→21:24)
[2019-06-10 20:00] VITALS: BP 100/57
[2019-06-10] MEDS: SIMVASTATIN 20 MG TAB PO SCH (21:23)
[2019-06-10] MEDS: GABAPENTIN 300 MG CAP PO SCH (21:24)
--- NOTE | 2019-06-10 23:17 | IPN ---
DATE: 06/10/2019 SUBJECTIVE: Dalila is seen and examined this morning at the bedside, sitting at the edge of the bed with legs dangling, awake, alert and in no distress. She offers no new complaints. Vital signs: Temperature 97.6, pulse 79, respiratory rate 18, blood pressure 110/53, saturating 95% on 2 liters nasal cannula. General: The patient is chronically ill appearing, but in no acute distress. Extraocular muscles are intact. Tongue is moist. Neck is supple. Jugular veins are significantly elevated. Heart sounds are regular and S1-S2 with peripheral edema present in the extremities. The lungs show diminished breath sounds at the bases. Abdomen is markedly distended with ascites and nontender. There are bowel sounds. The extremities show chronic stasis changes and peripheral edema. There is a left [id number]-[id number] amputation. Neurologic: She is oriented x3 and appears to be at baseline mentation. Dialysis access left upper extremity fistula is patent with thrill and bruit. LABORATORY DATA: White count 11.1, hemoglobin 8.2, platelet 210, sodium 138, potassium 4.6. Inpatient medications reviewed by myself and no changes noted from prior. PROBLEMS: 1. End-stage renal disease on hemodialysis on Tuesday, Tuesday, Tuesday schedule. She is noncompliant with dialysis. She usually misses more treatments then she attends. She was dialyzed on Tuesday. I did advise her to go for dialysis again on Tuesday, but she refused. Next treatment will be on Tuesday. She is chronically volume overloaded. 2. Protein calorie malnutrition. Albumin of 1.5. It is a chronic issue and complicates her care and her wound healing. Encourage dietary protein and Nepro intake. 3. Anemia related to a chronic kidney disease and chronic inflammatory state. She is ordered for Aranesp with her next dialysis treatment. There is probably also an element of hemodilution 4. Secondary hyperparathyroidism of renal origin. Her phosphorus is acceptable. Her corrected calcium is 8.1. Parathyroid hormone level is pending. She continues on Tums. 5. Cirrhosis with recurrent ascites, has been requiring more frequent paracentesis which is also because she is grossly noncompliant with hemodialysis. She is scheduled for paracentesis early next week. 6. Diastolic congestive heart failure, presently with volume overload. I will plan to dialyze her with albumin on Tuesday so that we have better ability to remove fluid.
[2019-06-10 23:59] VITALS: BP 110/60
--- NOTE | 2019-06-10 23:59 | IPNPDOC ---
Subjective Date Seen The patient was seen on 06/10/19. Subjective Chief Complaint/HPI complains of abdominal distension says its getting a little tight and uncomfortable. No nausea or vomiting or diarrhea. No chest pain or sob. No fever or chills. Says often has abdominal pain and diarrhea at home so misses dialysis so frequently. This time she did not g for 5 treatments before coming to the hospital Objective Physical Examination General Exam: Positive: Alert, Cooperative, No Acute Distress Eye Exam: Positive: PERRLA, Conjunctiva & lids normal, EOMI; Negative: Sclera icteric ENT Exam: Positive: Mucous membr. moist/pink, Pharynx Normal, Tongue Midline Neck Exam: Positive: Supple; Negative: JVD, thyromegaly Chest Exam: Positive: Clear to auscultation, Normal air movement Heart Exam: Positive: Rate Normal, Regular Rhythm, Normal S1, Normal S2 Telemetry: Positive: No significant arrhythmia Abdomen Exam: Positive: Normal bowel sounds, Soft, Other (distended has ascitis); Negative: Tenderness, Hepatospenomegaly Extremity Exam: Positive: Edema, Other (left BKA with wound vac, right small ulcer in aracely foot) Skin Exam: Positive: Other skin issue (venous stasis changes on the right) Assessment /Plan Assessment Electrolyte imbalance Hyperkalemia due to missing HD for 9 days. Now resolved after HD in hospital Encephalopathy -improved, multifactorial: hepatic, metabolic, uremic -may resume home meds as mentation improves -Patient has history of liver cirrhosis complicated by recurrent ascites with hyperammonemia. Pt is s/p lactulose x1, e-lytes normalized with urgent HD 06/08 ESRD on dialysis (MWF) -History of noncompliance. Importance of following up on medical care emphasized with pt, however this is an ongoing chronic issue -Nephrology consulted, appreciate their help Cirrhosis with recurrent ascites -Previously received paracentesis every 2 weeks, with increased frequency over the past few weeks to approximately one a week -Most recent paracentesis 06/05 and 05/24 -Currently asymptomatic and abdomen is not tense, will monitor will schedule for paracentesis next week. s/p left BKA amputation secondary to PVD -04/02/[address] Estrella for necrosis and gangrene of the left foot with extending cellulitis -Has wound vac in place -No signs of infection, no fever, WBCs essentially normal. -Dressing changes and wound as per Dr. Estrella, who is consulted. Appreciate input. -Dr. Estrella plans for wound debridement inpatient due to concern of noncompliance in o/p setting Right foot ulcer no drainage . chronic venous stasis in the right leg. Sinus Tachycardia resolved. Telemetry personally reviewed showes few episodes of NSVT in the last 24 hours. HFpEF stable Hypothyroidism c/w home meds IDDM2 with neuropathy levemir and lispro, gabapentin, cymbalta. Depression/insomnia c/w home meds DLP c/w home statin Restless leg syndrome continue ropinirole. Hiatal hernia continue PPI Anemia of chronic disease continue ananesp and iron as per neprhology. Recurrent GI issues Nausea , vomiting will evaluate for possible gatroparesis will get gastric emptying study. Plan/VTE VTE Prophylaxis Ordered?: Yes VS, I&O, 24H, Fishbone Vital Signs/I&O Vital Signs Date Time Temp Pulse Resp B/P (MAP) Pulse Ox O2 Delivery O2 Flow Rate FiO2 06/10/19 09:00 97.3 77 18 120/60 (80) 98 2.0 06/08/19 10:23 Room Air I&O- Last 24 Hours up to 6 AM 06/10/19 06:00 Intake Total 900 ml Output Total 1 ml Balance 899 ml Laboratory Data 24H LABS Laboratory Tests 2 06/09/19 11:08: Bedside Glucose (Misc Panel) 94 06/09/19 17:28: Bedside Glucose (Misc Panel) 174H 06/09/19 20:01: Bedside Glucose (Misc Panel) 140H 06/10/19 05:09: Nucleated Red Blood Cells % (auto) 0.0, Anion Gap 11, Glomerular Filtration Rate 6.9L, Blood Urea Nitrogen 63H, Creatinine 6.38H, Sodium Level 138, Potassium Level 4.6, Chloride Level 101, Carbon Dioxide Level 26, Calcium Level 6.1L CBC/BMP Laboratory Tests 06/10/19 05:09 Red Blood Count 2.84 L, Mean Corpuscular Volume 93.7, Mean Corpuscular Hemoglobin 28.9, Mean Corpuscular Hemoglobin Concent 30.8 L, Red Cell Distribution Width 18.6 H, Calcium Level 6.1 L MEETA BARGER MD Jun 10, 2019 09:34
[2019-06-11 04:00] VITALS: BP 104/62
[2019-06-11] MEDS: PERCOCET 5MG/325MG TAB PO PRN ×2 (04:45→14:52)
[2019-06-11] MEDS: LEVOTHYROXINE 125MCG TABLET (0.125MG) PO SCH (05:38)
[2019-06-11 06:03] LABS: HEMATOCRIT 26.3 % (36.0-47.0); HEMOGLOBIN 8.3 g/dl (12.0-15.5); MEAN CORPUSCULAR HEMOGLOBIN 29.1 pg (27.0-33.0); MEAN CORPUSCULAR HGB CONC 31.6 g/dl (32.0-36.5); MEAN CORPUSCULAR VOLUME 92.3 fl (80.0-96.0); PLATELET COUNT, AUTOMATED 208 10^3/uL (150-450); RED BLOOD COUNT 2.85 10^6/uL (4.00-5.40); WHITE BLOOD COUNT 10.8 10^3/uL (4.0-10.0)
[2019-06-11 06:20] LABS: CALCIUM LEVEL 5.8 MG/DL (8.8-10.2); CREATININE FOR GFR 6.9 MG/DL (0.55-1.30); GLOMERULAR FILTRATION RATE 6.3 (>39); POTASSIUM SERUM 4.8 MEQ/L (3.5-5.1)
[2019-06-11] MEDS: HumaLOG INSULIN (NovoLOG) PER UNIT SC SCH ×4 (07:30→21:32)
[2019-06-11 08:00] VITALS: BP 98/55
[2019-06-11 08:08] LABS: ALBUMIN 1.4 GM/DL (3.2-5.2); BILIRUBIN,DIRECT 0.2 MG/DL (0.0-0.2); BILIRUBIN,TOTAL 0.3 MG/DL (0.2-1.0); TOTAL PROTEIN 5.5 GM/DL (6.4-8.2)
[2019-06-11] MEDS: LEVEMIR (INSULIN DETEMIR) 1 UNITS/0.01ML SC SCH ×2 (08:35→21:32)
[2019-06-11] MEDS: HEPARIN SOD (PORCINE) 5000 UNITS/ML VIAL SC SCH ×2 (08:36→21:33)
[2019-06-11] MEDS: PANTOPRAZOLE 40MG TAB (PROTONIX) PO SCH (08:36)
[2019-06-11] MEDS: rOPINIRole 2MG TAB PO SCH ×2 (08:36→21:33)
[2019-06-11] MEDS: DAKIN'S 0.25% HALF-STRENGTH SOLN 480 ML TOP SCH ×2 (08:37→21:34)
[2019-06-11] MEDS: OYSTER SHELL CALCIUM 500 MG TAB PO SCH ×2 (08:37→21:33)
[2019-06-11] MEDS: DULoxetine 30 MG CAP (CYMBALTA) PO SCH (08:37)
[2019-06-11] MEDS: SILVER SULFADIAZINE 1% CR 50 GM JAR EXT SCH (08:37)
[2019-06-11] MEDS: METOCLOPRAMIDE 5 MG TAB PO SCH ×3 (08:39→18:00)
--- NOTE | 2019-06-11 09:01 | IPNPDOC ---
Date Seen The patient was seen on 06/11/19. Progress Note SUBJECTIVE: Ms. Hernandez, a 68-year-old female, was examined today in dialysis. She states that she is feeling the same as yesterday. She endorses constant, throbbing pain in her left stump that is rated at a 8/10 and requested a pain pill. She states that she has had some nausea that has improved with Reglan. She states her diarrhea has mostly resolved. She denies chest pain, shortness of breath, fever, chills, diaphoresis, abdominal pain, vomiting, palpitations, dizziness, lightheadedness, syncope, and headache. OBJECTIVE PHYSICAL EXAMINATION: VITAL SIGNS: Please see below. GENERAL APPEARANCE: Patient was examined in hemodialysis, no acute distress, AAOx3 HEENT: NC, AT, PERRLA, moist mucous membranes, Has bitemporal wasting CARDIOVASCULAR: Regular rate and rhythm, Normal S1S2, no murmurs, rubs or gallops appreciated LUNGS: Clear to auscultation bilaterally, no rales, rhonchi or wheezing appreciated ABDOMEN: Soft, distended, non-tense, no tenderness to palpation, no rebound, rigidity, guarding, Ascites present. EXTREMITIES: s/p left BKA, wound vac placement on left stump, right leg shows +1 pitting edema, erythematous, with signs of peripheral vascular disease, no signs of infection, no wound drainage NEUROLOGICAL: AAOx3, able to move all four extremities voluntarily PSYCHIATRIC: Appropriate affect LABORATORY DATA, IMAGING STUDIES, MICROBIOLOGY: Please see below. IMAGIN. Chest x-ray: Cardiomegaly is again noted. There is mild diffuse chronic interstitial prominence with acute infiltrate. The mediastinal silhouette is unchanged. 2. Gastric emptying nuclear scintigraphy: Mildly delayed gastric emptying. DVT prophylaxis ordered?: Heparin sc ASSESSMENT AND PLAN: Patient is a 68-year-old female who was referred to the ER during her wound debridement appointment due to electrolyte abnormalities on lab studies (hyperkalemia, hypocalcemia). PROBLEMS: 1. Electrolyte imbalance (hyperkalemia, hypocalcemia) -Hyperkalemia due to missing HD for 9 days. Now resolved after HD in hospital -Calcium gluconate was given today 2. Encephalopathy -improved, multifactorial in etiology: hepatic, metabolic, uremic -may resume home meds as mentation improves -Patient has history of liver cirrhosis complicated by recurrent ascites with hyperammonemia. Pt is s/p lactulose x1, electrolytes normalized with urgent HD 06/08 3. ESRD on dialysis (MWF) -History of noncompliance. Importance of following up on medical care emphasized with pt, however this is an ongoing chronic issue -Nephrology consulted, appreciate their help 4. Cirrhosis with recurrent ascites -Previously received paracentesis every 2 weeks, with increased frequency over the past few weeks to approximately one a week -Most recent paracentesis 06/05 and 05/24 -Currently asymptomatic and abdomen is not tense, will monitor -Will schedule for paracentesis next week 5. s/p left BKA amputation secondary to PVD -04/02/[address] Estrella for necrosis and gangrene of the left foot with extending cellulitis -Has wound vac in place -No signs of infection, no fever, WBCs essentially normal. -Dressing changes and wound care as per Dr. Estrella, who is consulted. Appreciate input. -Dr. Estrella plans for wound debridement inpatient tentatively tomorrow due to concern of noncompliance in o/p setting -c/w pain control, added Tramadol prn 6. Right foot ulcer -No drainage noted, no signs of infection (fever/chills) 7. Chronic venous stasis in the right leg. 8. HFpEF -Stable 9.Hypothyroidism -c/w home meds 10. IDDM2 with neuropathy -levemir and lispro, gabapentin, cymbalta. 11. Depression/insomnia -c/w home meds 12. DLP -c/w home statin 13. Restless leg syndrome -continue ropinirole. 14. Hiatal hernia -continue PPI 15. Anemia of chronic disease -continue ananesp and iron as per neprhology. 16. Recurrent GI issues -Nausea - improved today with Reglan -Diarrhea has mostly resolved -Gastric emptying nuclear scintigraphy: Mildly delayed gastric emptying. DISPOSITION: Patient is stable and feeling clinically the same. Gastric emptying study showed mildly delayed gastric emptying. Dr. Estrella plans for wound debridement inpatient tentatively tomorrow due to concern of noncompliance in o/p setting. Monitor electrolytes and continue with pain control. VS, I&O, 24H, Fishbone Vital Signs/I&O Vital Signs Date Time Temp Pulse Resp B/P (MAP) Pulse Ox O2 Delivery O2 Flow Rate FiO2 06/11/19 05:15 18 06/11/19 04:00 98.3 80 104/62 (76) 98 2.0 06/08/19 10:23 Room Air I&O- Last 24 Hours up to 6 AM 06/11/19 06:00 Intake Total 720 ml Output Total 0 ml Balance 720 ml Laboratory Data 24H LABS Laboratory Tests 2 06/10/19 12:14: Bedside Glucose (Misc Panel) 196H 06/10/19 14:30: 06/10/19 17:31: Bedside Glucose (Misc Panel) 199H 06/10/19 20:12: Bedside Glucose (Misc Panel) 182H 06/11/19 05:20: Nucleated Red Blood Cells % (auto) 0.0, Anion Gap 11, Glomerular Filtration Rate 6.3L, Calcium Level 5.8*L, Aspartate Amino Transf (AST/SGOT) 27, Alanine Aminotransferase (ALT/SGPT) 25, Alkaline Phosphatase 361H, Total Bilirubin 0.3, Direct Bilirubin 0.2, Total Protein 5.5L, Albumin 1.4L, Albumin/Globulin Ratio 0.34L CBC/BMP Laboratory Tests 06/11/19 05:20 Red Blood Count 2.85 L, Mean Corpuscular Volume 92.3, Mean Corpuscular He moglobin 29.1, Mean Corpuscular Hemoglobin Concent 31.6 L, Red Cell Distribution Width 18.4 H, Calcium Level 5.8 *L Attending Note Attending Note I have personally seen and examined the patient this am. I agree with the finding and the plan of care as documented above with the following addendum/ amendment. Severe Malnutrition as seen by albumin of 1.4 and has bitemporal wasting. Mild Hypocalcemia after correcting for albumin of 4.0 calcium is 7.8. Received iv calcium gluconate. Will continue oral calcium supplementation Gastroparesis present as seen by mildly delayed gastric emptying study. Possible debridement of left stump on 06/12, possible paracentesis on 06/12 Secondary hyperparathyroidism management as per nephrology IVANA HOGUE OMS-3 Jun 11, 2019 09:01 MEETA BARGER MD Jun 11, 2019 18:13
--- NOTE | 2019-06-11 11:25 | REP ---
Gastric emptying nuclear scintigraphy: History: Gastroparesis. Technique: 1.1 mCi of technetium-99m sulfur colloid was ingested in two scrambled eggs and 6 ounces of water and sequential anterior and posterior images are acquired for an 89-minute imaging observation period. Regions of interest are drawn around the stomach to plot gastric emptying. Scintigraphic findings: Expected T1/2 is 90 minutes. 33 % emptying is observed in this patient during the 89-minute imaging observation period, for a calculated T1/2 in this patient of 131 minutes. Impression: Mildly delayed gastric emptying. Electronically Signed by Vel Martinez MD 06/11/2019 11:16 A
[2019-06-11] MEDS ORDERED: HEPARIN 1,000 UNITS/ML 10ML VIAL (FOR RADIOLOGY& DIALYSIS ONLY) IV ONE (11:30)
--- NOTE | 2019-06-11 11:56 | CR.PDOC ---
General Date of Consultation: Jun 11, [address] Estrella. HPI: The pt is a 68yoF who had been scheduled for Left BKA wound debridement as per Dr Estrella 06/08/19, however the pt had missed several dialysis sessions and labs indicated electrolyte abnormalities (hyperkalemia, hypocalcemia), therefore the pt was referred to the ED for evaluation. The pt was admitted as per Hospitalist service, nephrology consulted for HD management. This AM the pt is sitting on side of bed. Wound vac is in place and pt states it was changed this AM. Vascular surgery is consulted re Lt BKA wound. Denies any fevers, chills, weakness, fatigue, Headache, Chest Pain, Shortness of breath, cough, palpitations, abdominal pain, changes bladder habits. PAST MEDICAL HISTORY: 1. End-stage renal disease on hemodialysis (MWF) 2. End-stage liver disease on paracentesis every two weeks, recent increase in frequency (last paracentesis: 06/05 and 05/24) 3. Type 2 diabetes, Insulin Dependent 4. Chronic anemia due to chronic kidney disease. 5. Peripheral vascular disease status post left BKA. 6. Coronary artery disease status post stenting. 7. Liver cirrhosis with recurrent ascites 8. HFpEF 9. Hypothyroidism 10. HTN 11. DLP 12. Depression/anxiety PAST SURGICAL HISTORY: 1. Left BKA. 2. Left arteriovascular (AV) fistula. 3. Appendectomy. 4. Hysterectomy. 5. Cataract surgery. SOCIAL HISTORY: Marital status: Children: Daughter who she lives with Tobacco use: Denies ETOH: Denies Illicit drug use: Denies IV drug use: Denies FAMILY HISTORY: No pertinent family medical history. ROS: As noted in HPI, otherwise 11pt ROS of systems reviewed and unremarkable. PE: GEN: 68yoF, appears stated age. Well-nourished, well developed. No acute distress. HEENT: Normocephalic, atraumatic. Sclera are nonicteric. Conjunctiva without injection. Nose midline. Moist mucous membranes. CHEST: Regular rate and rhythm, +S1, +S2 LUNGS: Clear to auscultation bilaterally. No wheezes, rales, or rhonchi. Breathing appears symmetric and easy. ABD: Round, non-tender, distended. +Bowel sounds throughout. No rebound or guarding. EXT: Rt foot wrapped in bandage, Lt BKA with wound vac intact. SKIN: No rashes. NEURO: Alert and oriented x 3. Cranial nerves III-XII are intact. No focal deficits appreciated. A&P: 1. Left BKA 04/06/19, S/P Left stump wound debridement 04/21/19, stump debridement and wound vac placement 04/27/[address] Estrella. Pt with chronic wound, wound vac intact and was changed this AM as per nursing. Reviewed with Dr Estrella this AM, tentative plan for wound debridement 06/12/19. DVT prophylaxis. Vital Signs/I&O Vital Signs Date Time Temp Pulse Resp B/P (MAP) Pulse Ox O2 Delivery O2 Flow Rate FiO2 06/11/19 08:00 97.0 82 18 98/55 (69) 97 06/11/19 04:00 2.0 06/08/19 10:23 Room Air I&O- Last 24 Hours up to 6 AM 06/11/19 05:59 Intake Total 720 ml Output Total 0 ml Balance 720 ml Laboratory Data Labs 24H Laboratory Tests 2 06/10/19 12:14: Bedside Glucose (Misc Panel) 196H 06/10/19 14:30: Parathyroid Hormone (Intact) 207.9H 06/10/19 17:31: Bedside Glucose (Misc Panel) 199H 06/10/19 20:12: Bedside Glucose (Misc Panel) 182H 06/11/19 05:20: Nucleated Red Blood Cells % (auto) 0.0, Anion Gap 11, Glomerular Filtration Rate 6.3L, Calcium Level 5.8*L, Aspartate Amino Transf (AST/SGOT) 27, Alanine Aminotransferase (ALT/SGPT) 25, Alkaline Phosphatase 361H, Total Bilirubin 0.3, Direct Bilirubin 0.2, Total Protein 5.5L, Albumin 1.4L, Albumin/Globulin Ratio 0.34L 06/11/19 11:37: Bedside Glucose (Misc Panel) 71L CBC/BMP Laboratory Tests 06/11/19 05:20 Red Blood Count 2.85 L, Mean Corpuscular Volume 92.3, Mean Corpuscular Hemoglobin 29.1, Mean Corpuscular Hemoglobin Concent 31.6 L, Red Cell Distri bution Width 18.4 H, Calcium Level 5.8 *L Allergies Coded Allergies: pregabalin (Verified Adverse Reaction, Intermediate, "feeling weird", SI thoughts., 06/07/19) vancomycin (Verified Adverse Reaction, Mild, DIARRHEA, 06/07/19) Home Medications Scheduled Duloxetine Hcl (Duloxetine HCl) 30 Mg Cap, 30 MG PO DAILY, (Reported) Gabapentin (Gabapentin) 100 Mg Capsule, 300 MG PO QHS, (Reported) Insulin Detemir (Levemir) 100 Unit/1 Ml Vial, 10 UNITS SC BID, (Reported) Insulin Lispro (Humalog) 100 Unit/Ml Inj, 1 DOSE SC AC, (Reported) PER SLIDING SCALE Levothyroxine Sodium (Synthroid) 125 Mcg Tab, 125 MCG PO DAILY, (Reported) Mineral Oil/Petrolatum,White (Hydrocerin Cream) 113 Gm Cream..g., 1 DOSE TOP DAILY, (Reported) APPLIES TO RIGHT LOWER EXTREMITIES Pantoprazole Sodium (Pantoprazole Sodium) 40 Mg Tab, 40 MG PO DAILY, (Reported) Ropinirole HCl (Ropinirole HCl) 2 Mg Tab, 6 MG PO BID, (Reported) Silver Sulfadiazine (Ssd) 50 Gm Cream..g., 1 DOSE EXT DAILY, (Reported) USED ON BIG TOE OF RIGHT FOOT Simvastatin (Simvastatin) 20 Mg Tab, 20 MG PO QHS, (Reported) Trazodone HCl (Trazodone HCl) 100 Mg Tablet, 200 MG PO QHS, (Reported) Scheduled PRN Alprazolam (Xanax) 0.25 Mg Tablet, 0.25 MG PO BID PRN for ANXIETY, (Reported) Calcium Carbonate (Tums) 500 Mg Chw, 1,000 MG PO PC PRN for HEARTBURN/INDIG ESTION, (Reported) Oxycodone HCl/Acetaminophen (Percocet 5-325 mg Tablet) 1 Each Tablet, 1 TAB PO Q6H PRN for PAIN, (Reported) Patiromer Calcium Sorbitex (Veltassa) 8.4 Gm Pow, 8.4 GM PO ASDIRECTED PRN for MISSING DIALYSIS, (Reported) Trini Vieira Jun 11, 2019 11:56
[2019-06-11 12:00] VITALS: BP 115/58
[2019-06-11] MEDS ORDERED: CALCIUM GLUCONATE 1,000 MG in D5W MINI-BAG PLUS 100 ML IV ONE (13:00)
[2019-06-11] MEDS ORDERED: traMADol 50 MG TAB PO PRN (14:00)
[2019-06-11] MEDS ORDERED: SLF 3 ML SYR IV PRN (14:00)
[2019-06-11] MEDS: SLF 3 ML SYR IV SCH ×2 (14:20→21:34)
[2019-06-11 17:00] VITALS: BP 109/55
--- NOTE | 2019-06-11 17:40 | IPN ---
DATE: 06/11/2019 SUBJECTIVE: Patient was seen and examined this morning. She currently only complains of pain on her left leg where her amputation and wound VAC are in place. She denies any shortness of breath, chest pain, nausea, vomiting, diarrhea or constipation. OBJECTIVE: VITAL SIGNS: Temperature 96.4, pulse 80, respiratory rate 19, blood pressure 115/58, pulse oximetry 96% on room air. GENERAL: Patient is awake, alert and oriented. She is sitting comfortably at her bed. Her legs are dangling. She appears in no acute distress. CARDIOVASCULAR: Normal S1, S2. Regular rate and rhythm. No clicks, rubs or murmurs. No jugular venous distention (JVD). PULMONARY: Clear vesicular lung sounds bilaterally. No wheezing, rhonchi or rales. Good respiratory effort. ABDOMEN: Nontender, nondistended. Mild ascites present. Positive bowel sounds in all four quadrants. EXTREMITIES: Patient has a left kounw-evt-iptp amputation with a wound VAC in place. Right lower extremity has some mild 1+ pitting edema. PSYCHIATRIC: Mood and affect appear appropriate. LABORATORY DATA: Hematology: White blood cell count 10.8, hemoglobin 8.3, hematocrit 26.3, platelet count 208. Chemistry: Sodium 136, potassium 4.8, chloride 100, CO2 25, BUN 72, creatinine 6.9, fasting glucose 89, calcium 5.8, with corrected 7.8. AST 27, ALT 25, alkaline phosphatase 361, total protein 5.5, albumin 1.4. PTH intact 207.9. ASSESSMENT AND PLAN: 1. End-stage renal disease on hemodialysis Tuesday, Tuesday, Tuesday. Patient continues to be volume overloaded. She was recommended to have dialysis on Tuesday. She had refused. She will be dialyzed today on her regular maintenance. 2. Protein calorie malnutrition. Patient currently has an albumin of 1.4. This complicates her wound healing. It is encouraged the patient increase her dietary protein as well as Nepro intake. 3. Anemia. Related to her chronic kidney disease and chronic inflammatory state. Patient is receiving Aranesp weekly. Will continue. 4. Secondary hyperparathyroidism of renal origin. Patient's corrected calcium is currently 7.8 and fairly low. Her parathyroid hormone is elevated appropriately. 5. Cirrhosis with recurrent ascites. Patient now receives paracentesis, which is frequent, as she is not compliant with her hemodialysis. She is scheduled for a paracentesis early next week. 6. Diastolic congestive heart failure. Patient is currently volume overloaded. She will receive some albumin with her dialysis today and ability to remove fluid. SHAAN
[2019-06-11 20:00] VITALS: BP 114/57
[2019-06-11] MEDS: GABAPENTIN 300 MG CAP PO SCH (21:33)
[2019-06-11] MEDS: SIMVASTATIN 20 MG TAB PO SCH (21:33)
[2019-06-11 23:59] VITALS: BP 108/54
[2019-06-12 04:00] VITALS: BP 113/61
[2019-06-12] MEDS: SLF 3 ML SYR IV SCH ×2 (05:26→11:31)
[2019-06-12] MEDS: LEVOTHYROXINE 125MCG TABLET (0.125MG) PO SCH (05:26)
[2019-06-12 06:09] LABS: HEMATOCRIT 29.3 % (36.0-47.0); HEMOGLOBIN 8.9 g/dl (12.0-15.5); MEAN CORPUSCULAR HEMOGLOBIN 29.2 pg (27.0-33.0); MEAN CORPUSCULAR HGB CONC 30.4 g/dl (32.0-36.5); MEAN CORPUSCULAR VOLUME 96.1 fl (80.0-96.0); PLATELET COUNT, AUTOMATED 190 10^3/uL (150-450); RED BLOOD COUNT 3.05 10^6/uL (4.00-5.40)
[2019-06-12 06:38] LABS: CALCIUM LEVEL 6.6 MG/DL (8.8-10.2); CREATININE FOR GFR 4.38 MG/DL (0.55-1.30); GLOMERULAR FILTRATION RATE 10.6 (>39); POTASSIUM SERUM 3.8 MEQ/L (3.5-5.1)
[2019-06-12] MEDS: METOCLOPRAMIDE 5 MG TAB PO SCH ×2 (08:36→11:30)
[2019-06-12] MEDS: DULoxetine 30 MG CAP (CYMBALTA) PO SCH (08:36)
[2019-06-12] MEDS: OYSTER SHELL CALCIUM 500 MG TAB PO SCH ×2 (08:36→16:33)
[2019-06-12] MEDS: PANTOPRAZOLE 40MG TAB (PROTONIX) PO SCH (08:36)
[2019-06-12] MEDS: rOPINIRole 2MG TAB PO SCH (08:36)
[2019-06-12] MEDS: HumaLOG INSULIN (NovoLOG) PER UNIT SC SCH ×2 (08:37→11:31)
[2019-06-12] MEDS: SILVER SULFADIAZINE 1% CR 50 GM JAR EXT SCH (08:43)
[2019-06-12] MEDS: DAKIN'S 0.25% HALF-STRENGTH SOLN 480 ML TOP SCH (08:43)
[2019-06-12] MEDS: LEVEMIR (INSULIN DETEMIR) 1 UNITS/0.01ML SC SCH (08:43)
[2019-06-12 08:44] VITALS: BP 148/78
[2019-06-12] MEDS: HEPARIN SOD (PORCINE) 5000 UNITS/ML VIAL SC SCH (09:00)
[2019-06-12] MEDS: PERCOCET 5MG/325MG TAB PO PRN ×2 (10:38→16:33)
--- NOTE | 2019-06-12 12:49 | IPN ---
DATE: 06/12/2019 SUBJECTIVE: Dalila is seen and examined this morning at the bedside. She was dialyzed yesterday with albumin support and 1.5 liters of fluid removed. She tolerated her treatment without issue. She is for paracentesis today. She denies any new complaints. Her main concern is her menu and diet choices. Temperature 97.4, pulse 91, respiratory rate 17, blood pressure 148/78, saturating 98% on room air. Intake yesterday was not recorded. Urine output yesterday was 500 dialysis removed 1500, weight on the bed scale is 67kg. General: The patient is seen lying in bed, appears chronically ill appearing frail female awake, alert and oriented. No acute distress. Cardiac: S1, S2, regular rate and rhythm. There is significant jugular venous distension. Breath sounds are clear superiorly and diminished at the lung bases. There is no tachypnea or accessory muscle use. Abdomen is distended with ascitic fluid but it is not tense. There is a left erovy-xne-lzoe amputation with a wound VAC. The right lower extremity has peripheral edema that extends up to the hip and thigh. The left upper extremity fistula is patent with thrill and bruit. LABS: White count 10, hemoglobin 8.9, platelet 190. Sodium 137, potassium 3.8, corrected calcium is within normal range. INPATIENT MEDICATIONS: Reviewed by myself. She continues on Os-Daniel. Remainder medications are unchanged from prior. PROBLEMS: 1. End-stage renal disease on hemodialysis on Tuesday, Tuesday, Tuesday schedule. She is volume overloaded. She was dialyzed yesterday with albumin support 1.5 liters of fluid were able to be removed. She is for paracentesis today. She will be dialyzed again tomorrow per her usual schedule. As an outpatient, she is chronically noncompliant with dialysis and chronically volume overloaded. 2. Anemia related to chronic kidney disease and chronic inflammatory state continue with weekly Aranesp. There is also likely an element of hemodilution. Hemoglobin is suboptimal but stable in the 8s. There is no need for transfusion at present. 3. Secondary hyperparathyroidism of renal origin. Her corrected calcium today is 8.6 which is acceptable. Her parathyroid hormone level is also within acceptable range as is her serum phosphorus. Continue with current oyster shell calcium 4. Protein calorie malnutrition albumin is very low she has chronic wounds. She is advised to drink Nepro and increase the protein in the diet. 5. Cirrhosis with recurrent ascites. She is scheduled for paracentesis and she should receive albumin with large volume paracentesis 6. Diastolic congestive heart failure. She is volume overloaded. She is for paracentesis today and she is for dialysis tomorrow. We will try to remove as much fluids as tolerated by her hemodynamics and we will continue with albumin support with dialysis.
[2019-06-12 13:18] VITALS: BP 119/61
[2019-06-12] MEDS ORDERED: CALCI50TA PO (13:31)
--- NOTE | 2019-06-12 17:31 | REP ---
Ultrasound-guided paracentesis The procedure was performed by ANTONIO Sierra, under the direct supervision of Dr. Rivas. The risks and benefits of the procedure were explained to the patient and informed consent was obtained both verbally and written. Directly prior to the start of the procedure, a formal timeout was completed in the procedure room. Under ultrasound guidance, the largest pocket of fluid in the right flank was localized and skin was marked. The skin was then prepped and draped in a sterile fashion. 10 ml of 1% lidocaine was used as a local anesthetic. Using ultrasound guidance, an 8-Tristanian multi side-hole catheter was inserted using trocar technique. 6,300 mL of clear yellow colored fluid was withdrawn and discarded. The patient tolerated the procedure well and there were no immediate complications. After the appropriate monitored convalescence the patient was discharged from the department. Reviewed by ANTONIO Song 06/12/2019 01:48 P Electronically Signed by Aureliano Rivas MD 06/12/2019 05:22 P
--- NOTE | 2019-06-12 18:03 | DS.PDOC ---
Discharge Summary General Date of Admission Jun 08, 2019 at 12:13 Date of Discharge 06/12/19 Attending Physician: MEETA BARGER MD Specialist/Consultants [employer]olve [employer] Apprentice: Dr. Timothy Grullon Vascular surgery: Dr. Estrella Discharge Summary PROCEDURES PERFORMED DURING STAY: paracentesis, HD, gastric emptying study ADMITTING DIAGNOSES: 1. E-Lyte abnormality from missed HD 2. Encephalopathy DISCHARGE DIAGNOSES: 1. Electrolyte imbalance resolved with HD 2. Encephalopathy: Uremia, metabolic, hepatic 3. Noncompliant with HD 4. 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 HISTORY OF PRESENT ILLNESS: 68-year-old female with extensive past medical history was urged to come to the ER after she was noted to have significant electrolyte abnormalities prior to her left stump wound debridement with Dr. Etsrella. She had reportedly missed dialysis for over a week, most recent session being 05/28/2019. She was found to be significantly hypokalemic and hypocalcemic, potassium of 6, calcium 5.2, ammonia 79. No EKG T-wave abnormalities or changes from prior EKGs. In addition, she was noted to be more lethargic, and thus urged to check into the hospital. On admission, she had no other complaints or symptoms, however was found to be quite somnolent, having to be woken up with physical touch to answer questions. She denied any fever, chills, nausea, vomiting, constipation, blood loss. HOSPITAL COURSE: She was given calcium gluconate in the ER, urgently dialyzed, with improvement in her electrolytes and mentation, also given 1 dose of lactulose for her hyperammonemia. Nephrology service followed her throughout her stay. Her home sedating meds were held. Also of note, patient complained that her paracentesis frequencies were increasing, where she previously had required therapeutic drainage every 2 weeks, now almost on a weekly basis. She underwent therapeutic paracentesis prior to discharge, with 6.3L removed. Also, vascular surgeon Dr. Estrella was consulted to further assess her left stump wound, which had a wound VAC on admission. Per his recommendations, follow-up outpatient for wound debridement. She also complained of nausea, for which gastric emptying study was obtained and revealed mildly delayed emptying. Of note, also had episodes of sinus tach during stay, with HR 120-140 at times, but pt asymptomatic and EKG was unchanged from prior. Her HR improved once pain meds and home sedatives/anxiolytics were resumed as her mentation improved. Patient was otherwise stable and discharged home. She is aware she has a very poor prognosis overall given her comorbidities. She was initially open to learning more information about hospice, however became quite opposed towards her discharge. She is encouraged to call back if we can be of further assistance, and to follow up closely with her regular doctors in clinic. DISCHARGE MEDICATIONS: Please see below. ALLERGIES: Please see below. PHYSICAL EXAMINATION ON DISCHARGE: VITAL SIGNS: Please see below. GENERAL: NAD, A&Ox3 HEENT: nc, at, EOMI NECK: supple, no JVD CARDIOVASCULAR EXAMINATION: RRR, normal S1 S2 RESPIRATORY EXAMINATION: CTAB, no w/r/r ABDOMINAL EXAMINATION: soft, nt/nd, normoactive bowel sounds EXTREMITIES: left leg BKA with dressing intact. Rt leg with chronic LE wounds & lipodermatosclerosis. Edema up the thighs b/l SKIN: multiple lesions on b/l LE, no signs of active infection NEUROLOGICAL EXAMINATION: no focal deficits LABORATORY DATA: Please see below. IMAGING: * 06/08/2019 CXR: Cardiomegaly is again noted. There is mild diffuse chronic interstitial prominence without acute infiltrate. The mediastinal silhouette is unchanged. * 09/11/2019 gastric emptying study: Mildly delayed gastric emptying. * 06/12/2019 paracentesis: 6,300 mL of clear yellow colored fluid was withdrawn and discarded. PROGNOSIS: very guarded given comorbidities including ESRD & cirrhosis, CHF ACTIVITY: As tolerated. DIET: consistent carb, 2g sodium DISPOSITION: home DISCHARGE INSTRUCTIONS: 1. Follow-up with PCP within a week 2. Return to ER for emergency 3. F/u with Dr. Estrella this week for wound debridement 4. F/u regular HD schedule DISCHARGE CONDITION: Stable. TIME SPENT ON DISCHARGE: 40 minutes. Vital Signs/I&Os Vital Signs Date Time Temp Pulse Resp B/P (MAP) Pulse Ox O2 Delivery O2 Flow Rate FiO2 06/12/19 16:33 18 06/12/19 13:18 85 95 06/12/19 12:01 98.2 135/61 (85) 06/11/19 04:00 2.0 06/08/19 10:23 Room Air I&O- Last 24 Hours up to 6 AM 06/12/19 06:00 Intake Total 0 ml Output Total 2000 ml Balance -2000 ml Laboratory Data Labs 24H Laboratory Tests 2 06/11/19 19:53: Bedside Glucose (Misc Panel) 267H 06/12/19 05:43: Nucleated Red Blood Cells % (auto) 0.0, Anion Gap 8, Glomerular Filtration Rate 10.6L, Blood Urea Nitrogen 41H, Creatinine 4.38H, Sodium Level 137, Potassium Level 3.8#, Chloride Level 101, Carbon Dioxide Level 28, Calcium Level 6.6L 06/12/19 11:24: Bedside Glucose (Misc Panel) 200H CBC/BMP Laboratory Tests 06/12/19 05:43 Red Blood Count 3.05 L, Mean Corpuscular Volume 96.1 H, Mean Corpuscular Hemoglobin 29.2, Mean Corpuscular Hemoglobin Concent 30.4 L, Red Cell Distribution Width 18.4 H, Calcium Level 6.6 L FSBS Laboratory Tests Test 06/11/19 19:53 06/12/19 11:24 Range/Units Bedside Glucose (Misc Panel) 267 200 83-110 MG/DL Discharge Medications Scheduled Duloxetine Hcl (Duloxetine HCl) 30 Mg Cap, 30 MG PO DAILY, (Reported) Gabapentin (Gabapentin) 100 Mg Capsule, 300 MG PO QHS, (Reported) Insulin Detemir (Levemir) 100 Unit/1 Ml Vial, 10 UNITS SC BID, (Reported) Insulin Lispro (Humalog) 100 Unit/Ml Inj, 1 DOSE SC AC, (Reported) PER SLIDING SCALE Levothyroxine Sodium (Synthroid) 125 Mcg Tab, 125 MCG PO DAILY, (Reported) Mineral Oil/Petrolatum,White (Hydrocerin Cream) 113 Gm Cream..g., 1 DOSE TOP DAILY, (Reported) APPLIES TO RIGHT LOWER EXTREMITIES Oyster Shell Calcium (Oyster Shell Calcium) 500 Mg Tablet, 500 MG PO TID Pantoprazole Sodium (Pantoprazole Sodium) 40 Mg Tab, 40 MG PO DAILY, (Reported) Ropinirole HCl (Ropinirole HCl) 2 Mg Tab, 6 MG PO BID, (Reported) Silver Sulfadiazine (Ssd) 50 Gm Cream..g., 1 DOSE EXT DAILY, (Reported) USED ON BIG TOE OF RIGHT FOOT Simvastatin (Simvastatin) 20 Mg Tab, 20 MG PO QHS, (Reported) Trazodone HCl (Trazodone HCl) 100 Mg Tablet, 200 MG PO QHS, (Reported) Scheduled PRN Alprazolam (Xanax) 0.25 Mg Tablet, 0.25 MG PO BID PRN for ANXIETY, (Reported) Calcium Carbonate (Tums) 500 Mg Chw, 1,000 MG PO PC PRN for HEARTBURN/INDIGESTION, (Reported) Oxycodone HCl/Acetaminophen (Percocet 5-325 mg Tablet) 1 Each Tablet, 1 TAB PO Q6H PRN for PAIN, (Reported) Patiromer Calcium Sorbitex (Veltassa) 8.4 Gm Pow, 8.4 GM PO ASDIRECTED PRN for MISSING DIALYSIS, (Reported) Allergies Coded Allergies: pregabalin (Verified Adverse Reaction, Intermediate, "feeling weird", SI thoughts., 06/07/19) vancomycin (Verified Adverse Reaction, Mild, DIARRHEA, 06/07/19) GME ATTESTATION GME ATTESTATION My faculty preceptor for this patient encounter was physically present during the encounter and was fully available. All aspects of the patient interview, examination, medical decision making process, and medical care plan development were reviewed and approved by the faculty preceptor. The faculty preceptor is aware and concurs with the plan as stated in the body of this note and will attest to such by his/her cosignature. ATTENDING NOTE I saw and examined the patient. I agree with the finding and the plan of care as documented in the resident's note. I spent 35 mins in counselling the patient and coordinating the discharge. SHAILA LICEA DO Jun 12, 2019 18:03 MEETA BARGER MD Jun 12, 2019 19:52
== END 2019-06-12 17:15 | disposition home health service (06) | DRG 640 ==
LOC: M ED 10:22 → M ED INP 12:13 → M PCU 17:40
PROVIDERS: ADMIT Internal Medicine; ATTEND Internal Medicine Nephrology
PROC: 5A1D70Z Performance of Urinary Filtration, Intermittent, Less than 6 Hours Per Day (ICD-10-PCS; 2019-06-08)
PROC: 0W9G3ZZ Drainage of Peritoneal Cavity, Percutaneous Approach (ICD-10-PCS; principal; 2019-06-12 08:34)
DX: E87.5 Hyperkalemia (principal); N18.6 End stage renal disease; G93.41 Metabolic encephalopathy; I50.32 Chronic diastolic (congestive) heart failure; I13.2 Hypertensive heart and chronic kidney disease with heart failure and with stage 5 chronic kidney disease, or end stage renal disease; E46 Unspecified protein-calorie malnutrition; R18.8 Other ascites; N25.81 Secondary hyperparathyroidism of renal origin; E87.79 Other fluid overload; Z91.15 Patient's noncompliance with renal dialysis; K21.9 Gastro-esophageal reflux disease without esophagitis; K44.9 Diaphragmatic hernia without obstruction or gangrene; E78.5 Hyperlipidemia, unspecified; G25.81 Restless legs syndrome; E11.51 Type 2 diabetes mellitus with diabetic peripheral angiopathy without gangrene; F32.9 Major depressive disorder, single episode, unspecified; E03.9 Hypothyroidism, unspecified; K74.69 Other cirrhosis of liver; Z79.899 Other long term (current) drug therapy; Z79.4 Long term (current) use of insulin; Z88.8 Allergy status to other drugs, medicaments and biological substances; Z88.1 Allergy status to other antibiotic agents; E83.51 Hypocalcemia; D63.1 Anemia in chronic kidney disease; I25.10 Atherosclerotic heart disease of native coronary artery without angina pectoris; Z95.2 Presence of prosthetic heart valve; Z89.512 Acquired absence of left leg below knee; G47.00 Insomnia, unspecified; Z66 Do not resuscitate; E87.2 Acidosis; E11.621 Type 2 diabetes mellitus with foot ulcer

== ENCOUNTER → 2019-06-08 | Day surgery (SDC) | payer MEDICARE ==
[~2019-06-08] VITALS: Ht 157.5 cm; Wt 73.3 kg
[~2019-06-08] MED LIST changes: +LIDOCAINE 2% INJ 100 MG/5 ML SDV (FOR ANES.) As Ordered ONE; +MIDAZOLAM INJ 2 MG/2 ML VIAL (J2250) As Ordered ONE; +ONDANSETRON 4MG/2ML VIAL (J2405) As Ordered ONE; +PROPOFOL 200 MG/20 ML VIAL As Ordered ONE; +fentaNYL 100 MCG/2 ML INJECTION (J3010) As Ordered ONE
[2019-06-08 09:08] LABS: HEMATOCRIT 27.9 % (36.0-47.0); HEMOGLOBIN 8.9 g/dl (12.0-15.5); MEAN CORPUSCULAR HEMOGLOBIN 30.1 pg (27.0-33.0); MEAN CORPUSCULAR HGB CONC 31.9 g/dl (32.0-36.5); MEAN CORPUSCULAR VOLUME 94.3 fl (80.0-96.0); PLATELET COUNT, AUTOMATED 219 10^3/uL (150-450); RED BLOOD COUNT 2.96 10^6/uL (4.00-5.40); WHITE BLOOD COUNT 11.1 10^3/uL (4.0-10.0)
[2019-06-08 09:45] LABS: CALCIUM LEVEL 5.2 MG/DL (8.8-10.2); CREATININE FOR GFR 9.34 MG/DL (0.55-1.30); GLOMERULAR FILTRATION RATE 4.4 (>39); POTASSIUM SERUM 6.1 MEQ/L (3.5-5.1)
== END | disposition home or self-care (01) ==
LOC: M SDC 08:28
PROVIDERS: ATTEND Surgery Vascular Surgery
DX: Z53.09 Procedure and treatment not carried out because of other contraindication (principal)

== ENCOUNTER → 2019-06-25 | Outpatient (CLI) | payer MEDICARE ==
[~2019-06-25] MED LIST changes: +CALCI50TA PO; +OYST500T7 PO
[2019-06-25 18:08] VITALS: BP 93/54
--- NOTE | 2019-06-26 08:46 | REP ---
Ultrasound-guided paracentesis The procedure was performed under the direct supervision of Dr. Martinez. The risks and benefits of the procedure were explained to the patient and informed consent was obtained. The largest pocket of fluid was localized in the left flank using ultrasound guidance. The skin was prepped and draped in a sterile fashion. 1% lidocaine was used as a local anesthetic. An 8-Ethiopian multi side-hole catheter was inserted using trocar technique. 8200 ml of clear yellow fluid was withdrawn and discarded. The patient tolerated the procedure well and there were no immediate complications. After the appropriate amount of monitored convalescence the patient was discharged from the department. Reviewed by ANTONIO Curiel 06/25/2019 05:24 P Electronically Signed by Vel Martinez MD 06/26/2019 08:37 A
== END ==
LOC: M IRPRO 14:59
PROVIDERS: ATTEND Internal Medicine Nephrology
DX: R18.8 Other ascites (principal); E87.70 Fluid overload, unspecified

== ENCOUNTER 2019-06-26 10:58 | Inpatient (IN) | payer MEDICARE ==
[2019-06-26] VITALS (10 sets, daily range): BP systolic 80–95; BP diastolic 44–55
[~2019-06-26] VITALS: Ht 157.5 cm; Wt 77.0 kg
[2019-06-26] MEDS: OYSTER SHELL CALCIUM 500 MG TAB PO SCH (09:00)
[~2019-06-26 10:58] MED LIST changes: +ONDA-83; +ONDA-83 PO; -ONDA4TAB5; -ONDA4TAB5 PO; -OYST500T7 PO; +SENN-53 PO; -SENN1TAB40 PO; -SIMV20TA2 PO; +SIMV20TA22 PO; -TRAZ-163 PO; +TRAZ-257 PO; -TRAZ10TA PO; +TRAZ1TAB12 PO; -VICO7.5T11 PO; +VICO7.5T12 PO; +ZETI10TA16 PO; -ZETI10TA30 PO
[2019-06-26] MEDS ORDERED: NS IV ONE (11:15)
[2019-06-26] MEDS ORDERED: cefTRIAXone SOD 2 GM in D5W MINI-BAG PLUS 50 ML IV ONE (11:15)
[2019-06-26] MEDS ORDERED: ACETAMINOPHEN 650 MG SUPP PR ONE (11:30)
[2019-06-26 11:47] LABS: VENOUS BASE EXCESS -4.8 (-2.0-2.0); VENOUS HCO3 19.9 MEQ/L (23.0-27.0); VENOUS O2 SATURATION 98.9 % (60.0-80.0); VENOUS PARTIAL PRESSURE CO2 35.2 mmHg (38.0-50.0); VENOUS PARTIAL PRESSURE O2 143.7 mmHg (30.0-50.0); VENOUS PH 7.371 UNITS (7.330-7.430); VENOUS STANDARD HCO3 20.5 MEQ/L
[2019-06-26 11:50] LABS: BASO % 0.2 % (0.0-1.0); EOS % 0.1 % (0.0-3.0); HEMATOCRIT 25.3 % (36.0-47.0); HEMOGLOBIN 7.8 g/dl (12.0-15.5); LYMPH # 0.9 10^3/uL (1.5-4.5); LYMPH % 3.6 % (24.0-44.0); MEAN CORPUSCULAR HEMOGLOBIN 30.4 pg (27.0-33.0); MEAN CORPUSCULAR HGB CONC 30.8 g/dl (32.0-36.5); MEAN CORPUSCULAR VOLUME 98.4 fl (80.0-96.0); MONO # 0.9 10^3/uL (0.0-0.8); MONO % 3.8 % (0.0-5.0); NEUTROPHILS # 22.1 10^3/uL (1.8-7.7); NEUTROPHILS % 89.9 % (36.0-66.0); PLATELET COUNT, AUTOMATED 170 10^3/uL (150-450); RED BLOOD COUNT 2.57 10^6/uL (4.00-5.40); WHITE BLOOD COUNT 24.6 10^3/uL (4.0-10.0)
--- NOTE | 2019-06-26 11:57 | REP ---
Clinical: Altered mental status. Comparison: 06/08/2019. Findings: Stable cardiomegaly is appreciated. Lung multani demonstrate diffuse scattered air space disease and alveolar infiltrates along with possible small effusion. No pneumothorax. Skeletal structures are stable. Impression: Subtle bilateral air space disease. Differential diagnosis includes interstitial edema. Electronically Signed by Israel Guevara MD 06/26/2019 11:48 A
--- NOTE | 2019-06-26 12:04 | REP ---
Clinical: Abdominal pain. History of paracentesis. Technique: Axial noncontrast images from the lung bases to the pubic symphysis with coronal and sagittal re-formations. Findings: Lung bases demonstrate cardiomegaly. Small pericardial effusion, and interstitial edema with trace bibasilar atelectasis. The liver demonstrates a subtle nodular contour suggesting cirrhosis. Mild splenomegaly is appreciated. Moderate ascites along with extensive subcutaneous edema noted throughout the abdomen and pelvis. Cholelithiasis noted. Pancreas and bilateral adrenal glands are normal. The kidneys are atrophic. The enteric system is without obstruction and scattered colonic diverticula noted. Pelvis demonstrates collapsed bladder and evidence of prior hysterectomy. Atherosclerotic changes to the aorta and vasculature noted without aneurysm. Musculoskeletal structures demonstrate age-related degenerative changes without focal osseous abnormality. Impression: 1. Lung bases suggesting interstitial edema as well as small pericardial effusion. 2. Cirrhosis cannot be excluded. 3. Moderate amount of ascites and extensive subcutaneous edema throughout the abdomen and pelvis. 4. Scattered diverticula without obvious acute diverticulitis. No bowel obstruction or free air to suggest perforation. Electronically Signed by Israel Guevara MD 06/26/2019 11:54 A
[2019-06-26 12:17] LABS: OSMOLALITY SERUM 302 MOSM/KG (280-301)
[2019-06-26 12:26] LABS: ACETAMINOPHEN LEVEL 8.4 UG/ML (10.0-30.0); ALBUMIN 1.5 GM/DL (3.2-5.2); ALT/SGPT 22 U/L (12-78); BILIRUBIN,DIRECT 0.3 MG/DL (0.0-0.2); BILIRUBIN,TOTAL 0.5 MG/DL (0.2-1.0); BLOOD UREA NITROGEN 72 MG/DL (7-18); CALCIUM LEVEL 6.8 MG/DL (8.8-10.2); CARBON DIOXIDE LEVEL 23 MEQ/L (21-32); CHLORIDE LEVEL 102 MEQ/L (98-107); CK-MB VALUE MASS 1.9 NG/ML (<3.6); CPK CREATINE PHOSPHOKINASE 85 U/L (26-192); CREATININE FOR GFR 7.14 MG/DL (0.55-1.30); ETHYL ALCOHOL (ETHANOL) 0.003 % (0.000-0.010); GLUCOSE, FASTING 227 MG/DL (70-100); MB/CK RELATIVE INDEX 2.24 (< OR =4); POTASSIUM SERUM 4.8 MEQ/L (3.5-5.1); SALICYLATE LEVEL < 1.7 MG/DL (5.0-30.0); SODIUM LEVEL 137 MEQ/L (136-145); TOTAL PROTEIN 4.5 GM/DL (6.4-8.2); TROPONIN I 0.03 NG/ML (< 0.10)
[2019-06-26 12:47] LABS: BILIRUBIN, URINE MANUAL NEGATIVE (NEGATIVE); GLUCOSE, URINE (UA) MANUAL 1+(100 MG/DL) mg/dL (NEGATIVE); KETONE, URINE MANUAL NEGATIVE (NEGATIVE); UROBILINOGEN, URINE MANUAL N mg/dl (NORMAL)
[2019-06-26 12:53] LABS: ERYTHROCYTE SEDIMENTATION RATE 55 mm/hr (0-30)
[2019-06-26 12:54] LABS: C REACTIVE PROTEIN QUANTITATIV 13.4 MG/DL (0.00-0.30)
[2019-06-26 13:04] LABS: BACTERIA, URINE SMALL AMOUNT; HYALINE CAST, URINE NONE SEEN /lpf (0-1); SQUAMOUS EPITHELIAL CELL URINE SMALL AMOUNT /hpf (SMALL AMT)
[2019-06-26 13:05] LABS: RENAL EPITHELIAL CELLS, URINE SMALL AMOUNT /hpf
[2019-06-26] MEDS ORDERED: OYST500T7 PO (13:05)
[2019-06-26 13:14] LABS: AMPHETAMINES LEVEL URINE NEGATIVE (NEGATIVE); BARBITURATES URINE NEGATIVE (NEGATIVE); BENZODIAZEPINES URINE NEGATIVE (NEGATIVE); CANNABINOIDS URINE NEGATIVE (NEGATIVE); COCAINE METABOLITE URINE NEGATIVE (NEGATIVE); METHADONE URINE NEGATIVE (NEGATIVE); OPIATES URINE NEGATIVE (NEGATIVE); PHENCYCLIDINE URINE NEGATIVE (NEGATIVE)
[2019-06-26 13:19] LABS: MAGNESIUM LEVEL 2.3 MG/DL (1.8-2.4); PHOSPHORUS LEVEL 4.9 MG/DL (2.5-4.9)
--- NOTE | 2019-06-26 14:05 | REP ---
Clinical: Altered mental status. Comparison: 05/09/2019 . Findings: Age-related atrophy and microvascular ischemic changes are appreciated. The ventricles and sulci are symmetric. Rivas-white differentiation is maintained. There is no evidence for acute intracranial hemorrhage, mass/mass effect, pathology or infarction. No extra-axial fluid collection. Calvarium is intact. Paranasal sinuses and mastoid air cells are clear. Impression: Age related atrophy and microvascular ischemic changes. No acute intracranial hemorrhage, infarction, or mass/mass effect. Electronically Signed by Israel Guevara MD 06/26/2019 01:57 P
[2019-06-26] MEDS ORDERED: GLUCAGON FOR INJ 1 MG VIAL (J1610) SC PRN (14:15)
[2019-06-26] MEDS ORDERED: DEXTROSE 50% 50 ML SYRINGE IV PRN (14:15)
[2019-06-26] MEDS ORDERED: GLUCOSE 4 GM CHEW TABLET PO PRN (14:15)
--- NOTE | 2019-06-26 14:41 | REP ---
Clinical: Trauma. Technique: Portable AP, lateral, bilateral oblique views of the right knee. Findings: Moderate tricompartmental osteoarthritic changes are appreciated. Lateral view cannot exclude suprapatellar effusion. No obvious acute fracture or dislocation. Impression: Moderate tricompartmental arthritic changes. No acute fracture or dislocation. Electronically Signed by Israel Guevara MD 06/26/2019 02:10 P
[2019-06-26] MEDS ORDERED: LINEZOLID 600 MG in IV 1 EA IV SCH (15:00)
[2019-06-26] MEDS ORDERED: MIDODRINE 2.5 MG TAB PO SCH (16:00)
[2019-06-26] MEDS: ALBUTEROL SULFATE 2.5 MG/0.5 ML INH NEB SOLN NEB SCH ×2 (16:07→20:44)
[2019-06-26] MEDS: LINEZOLID 600 MG in IV 1 EA IV SCH (16:37)
[2019-06-26] MEDS ORDERED: NS 500 ML IV PRN (16:45)
[2019-06-26] MEDS ORDERED: CALCIUM CARBONATE 500 MG CHEW U/D PO PRN (16:45)
--- NOTE | 2019-06-26 17:11 | CR.PDOC ---
General Date of Consultation: Jun 26, [address] Estrella. HPI: The pt is a 68yoF status post Left BKA 04/06/19, S/P Left stump wound debridement 04/21/19, stump debridement and wound vac placement 04/27/[address] Estrella. The patient had been scheduled for Left BKA wound debridement as per Dr Estrella 06/08/19, however the pt had missed several dialysis sessions and labs indicated electrolyte abnormalities (hyperkalemia, hypocalcemia), therefore the pt was admitted as per Hospitalist service, nephrology consulted for HD management. The patient was subsequently discharged 06/12/19. The patient return to the office yesterday for follow-up. She reported she had missed dialysis last Tuesday. She attended Tuesday and Tuesday. She had also apparently missed her appointment for paracentesis and was rescheduled for 05/29 08/16. She was planning to missing her dialysis session yesterday to have the paracentesis completed. Wound VAC remains in place on the left BKA. She had been rescheduled for left BKA wound debridement 06/29/19. The patient was apparently found unresponsive at home and was brought to the emergency department for evaluation. Vascular surgery is consulted re Lt BKA wound. Denies any fevers, chills, weakness, fatigue, Headache, Chest Pain, Shortness of breath, cough, palpitations, abdominal pain, changes bladder habits. PAST MEDICAL HISTORY: 1. End-stage renal disease on hemodialysis (MWF) 2. End-stage liver disease on paracentesis every two weeks, recent increase in frequency (last paracentesis: 06/05 and 05/24) 3. Type 2 diabetes, Insulin Dependent 4. Chronic anemia due to chronic kidney disease. 5. Peripheral vascular disease status post left BKA. 6. Coronary artery disease status post stenting. 7. Liver cirrhosis with recurrent ascites 8. HFpEF 9. Hypothyroidism 10. HTN 11. DLP 12. Depression/anxiety PAST SURGICAL HISTORY: 1. Left BKA. 2. Left arteriovascular (AV) fistula. 3. Appendectomy. 4. Hysterectomy. 5. Cataract surgery. SOCIAL HISTORY: Marital status: Children: Daughter who she lives with Tobacco use: Denies ETOH: Denies Illicit drug use: Denies IV drug use: Denies FAMILY HISTORY: No pertinent family medical history. ROS: As noted in HPI, otherwise 11pt ROS of systems reviewed and unremarkable. PE: GEN: 68yoF, appears chronically ill. HEENT: Normocephalic, atraumatic. Moist mucous membranes. CHEST: Regular rate and rhythm, +S1, +S2 LUNGS: Clear to auscultation bilaterally. No wheezes, rales, or rhonchi. Breathing appears symmetric and easy. ABD: Round, non-tender, mildly distended distended. +Bowel sounds throughout. No rebound or guarding. EXT: Rt foot wrapped in bandage, Lt BKA with wound vac intact. Edema noted. SKIN: No rashes. NEURO: Alert and oriented x 3. Cranial nerves III-XII are intact. No focal deficits appreciated. Urine culture pending. Blood culture 2 pending. A&P: 1. Left BKA 04/06/19, S/P Left stump wound debridement 04/21/19, stump debridement and wound vac placement 04/27/[address] Estrella. Patient is afebrile currently, Tmax 102. Systolic blood pressures 80s to 90s. WBC 24.6. CRP 13.4. Urine culture pending. Blood Culture 2 pending. Pt with chronic wound, wound vac intact currently. Reviewed with Dr Estrella, tentative plan for wound debridement 06/27/19. Antibiotics as per primary team. Currently IV linezolid/Rocephin. 2. Possible UTI. Management as per primary team. Urine culture pending. Vital Signs/I&O Vital Signs Date Time Temp Pulse Resp B/P (MAP) Pulse Ox O2 Delivery O2 Flow Rate FiO2 06/26/19 15:25 98.9 70 22 88/50 (63) 96 Nasal Cannula 2.0 Laboratory Data Labs 24H Laboratory Tests 2 06/26/19 11:13: Bedside Glucose (Misc Panel) 250H 06/26/19 11:32: Lactic Acid Level 1.8, Ammonia 47H 06/26/19 11:33: Immature Granulocyte % (Auto) 2.4, White Blood Count 24.6H, Red Blood Count 2.57L, Hemoglobin 7.8L, Hematocrit 25.3L, Mean Corpuscular Volume 98.4H, Mean Corpuscular Hemoglobin 30.4, Mean Corpuscular Hemoglobin Concent 30.8L, Red Cell Distribution Width 19.8H, Platelet Count 170, Neutrophils (%) (Auto) 89.9H, Lymphocytes (%) (Auto) 3.6L, Monocytes (%) (Auto) 3.8, Eosinophils (%) (Auto) 0.1, Basophils (%) (Auto) 0.2, Neutrophils # (Auto) 22.1H, Lymphocytes # (Auto) 0.9L, Monocytes # (Auto) 0.9H, Eosinophils # (Auto) 0.0, Basophils # (Auto) 0.0, Nucleated Red Blood Cells % (auto) 0.2H, Erythrocyte Sedimentation Rate 55H, Anion Gap 12, Glomerular Filtration Rate 6.0L, Osmolality 302H, Calcium Level 6.8L, Aspartate Amino Transf (AST/SGOT) 20, Alanine Aminotransferase (ALT/SGPT) 22, Alkaline Phosphatase 288H, Total Bilirubin 0.5, Direct Bilirubin 0.3H, Total Creatine Kinase 85, Creatine Kinase MB 1.9, Creatine Kinase MB Relative Index 2.24, Troponin I 0.03, Total Protein 4.5L, Albumin 1.5L, Albumin/Globulin Ratio 0.50L, Thyroid Stimulating Hormone (TSH) 3.650, Salicylates Level < 1.7L, Acetaminophen Level 8.4L, Ethyl Alcohol Level 0.003 06/26/19 11:34: Blood Gas Bicarbonate Standard 20.5, Venous Blood pH 7.371, Venous Blood Partial Pressure CO2 35.2L, Venous Blood Partial Pressure O2 143.7H, Venous Blood Total Carbon Dioxide 21.0L, Venous Blood HCO3 19.9L, Venous Blood Oxygen Saturation 98.9H, Venous Blood Base Excess -4.8L 06/26/19 11:52: Phosphorus Level 4.9, Magnesium Level 2.3, C-Reactive Protein, Quantitative 13.40H 06/26/19 12:10: POC Glucose (Misc Panel) 236H, POC Sodium (Misc Panel) 131L, POC Potassium (Misc Panel) 4.7, POC Chloride (Misc Panel) 98, POC Total CO2 (Misc Panel) 21.0L, POC Blood Urea Nitrogen (Misc Panel 70H, POC Ionized Calcium (Misc Panel) 3.8L, POC Creatinine (Misc Panel) 7.3H, POC Hematocrit (Misc Panel) 30.0L 06/26/19 12:33: Urine Color (VIRGEN) BROWNH, Urine Appearance (VIRGEN) TURBIDH, Urine pH (VIRGEN) 7.0, Urine Specific [place] (VIRGEN) 1.010, Urine Protein 3+H, Bedside Urine Glucose (UA) 1+(100 MG/DL)H, Bedside Urine Ketones (LAB) NEGATIVE, Bedside Urine Blood POSITIVEH, Bedside Urine Nitrite (LAB) N, Bedside Urine Bilirubin (LAB) NEGATIVE, Bedside Urine Urobilinogen (LAB) N, Bedside Urine Leukocyte Esterase (L POSITIVEH, Urine Sediment Examination PERFORMED, Urine RBC 3-5H, Urine WBC TNTCH, Urine Squamous Epithelial Cells SMALL AMOUNT, Urine Renal Epithelial Cells SMALL AMOUNTH, Urine Bacteria SMALL AMOUNTH, Urine Hyaline Casts NONE SEEN, Urine Amphetamines Screen NEGATIVE, Urine Benzodiazepines Screen NEGATIVE, Urine Opiates Screen NEGATIVE, Urine Methadone Screen NEGATIVE, Urine Barbiturates Screen NEGATIVE, Urine Phencyclidine Screen NEGATIVE, Urine Cocaine Metabolite Screen NEGATIVE, Urine Cannabinoids Screen NEGATIVE CBC/BMP Laboratory Tests 06/26/19 11:33 Red Blood Count 2.57 L, Mean Corpuscular Volume 98.4 H, Mean Corpuscular Hemoglobin 30.4, Mean Corpuscular Hemoglobin Concent 30.8 L, Red Cell Distribution Width 19.8 H, Neutrophils (%) (Auto) 89.9 H, Lymphocytes (%) (Auto) 3.6 L, Monocytes (%) (Auto) 3.8, Eosinophils (%) (Auto) 0.1, Basophils (%) (Auto) 0.2, Neutrophils # (Auto) 22.1 H, Lymphocytes # (Auto) 0.9 L, Monocytes # (Auto) 0.9 H, Eosinophils # (Auto) 0.0, Basophils # (Auto) 0.0 Microbiology Microbiology 06/26/19 Blood Culture, Received Pending 06/26/19 Blood Culture, Received Pending 06/26/19 Urine Culture, Received Pending Allergies Coded Allergies: pregabalin (Verified Adverse Reaction, Intermediate, "feeling weird", SI thoughts., 06/07/19) vancomycin (Verified Adverse Reaction, Mild, DIARRHEA, 06/07/19) Home Medications Scheduled Calcium Carbonate (Oyster Shell Calcium) 500 Mg Tablet, 500 MG PO DAILY, (Reported) Duloxetine Hcl (Duloxetine HCl) 30 Mg Cap, 30 MG PO DAILY, (Reported) Gabapentin (Gabapentin) 100 Mg Capsule, 300 MG PO QHS, (Reported) Insulin Detemir (Levemir) 100 Unit/1 Ml Vial, 10 UNITS SC BID, (Reported) Insulin Lispro (Humalog) 100 Unit/Ml Inj, 1 DOSE SC AC, (Reported) PER SLIDING SCALE Levothyroxine Sodium (Synthroid) 125 Mcg Tab, 125 MCG PO DAILY, (Reported) Mineral Oil/Petrolatum,White (Hydrocerin Cream) 113 Gm Cream..g., 1 DOSE TOP DAILY, (Reported) APPLIES TO RIGHT LOWER EXTREMITIES Pantoprazole Sodium (Pantoprazole Sodium) 40 Mg Tab, 40 MG PO DAILY, (Reported) Ropinirole HCl (Ropinirole HCl) 2 Mg Tab, 6 MG PO BID, (Reported) Silver Sulfadiazine (Ssd) 50 Gm Cream..g., 1 DOSE EXT DAILY, (Reported) USED ON BIG TOE OF RIGHT FOOT Simvastatin (Simvastatin) 20 Mg Tab, 20 MG PO QHS, (Reported) Trazodone HCl (Trazodone HCl) 100 Mg Tablet, 200 MG PO QHS, (Reported) Scheduled PRN Calcium Carbonate (Tums) 500 Mg Chw, 1,000 MG PO PC PRN for HEARTBURN/INDIGESTION, (Reported) Oxycodone HCl/Acetaminophen (Percocet 5-325 mg Tablet) 1 Each Tablet, 1 TAB PO Q6H PRN for PAIN, (Reported) Patiromer Calcium Sorbitex (Veltassa) 8.4 Gm Pow, 8.4 GM PO ASDIRECTED PRN for MISSING DIALYSIS, (Reported) Trini Vieira Jun 26, 2019 17:07
[2019-06-26] MEDS: HEPARIN SOD (PORCINE) 5000 UNITS/ML VIAL SC SCH ×2 (17:22→21:15)
[2019-06-26] MEDS: FAMOTIDINE IV BAG 20 MG in IV 1 EA IV SCH (17:23)
[2019-06-26] MEDS: HumaLOG INSULIN (NovoLOG) PER UNIT SC SCH ×2 (17:23→23:44)
[2019-06-26] MEDS: LEVEMIR (INSULIN DETEMIR) 1 UNITS/0.01ML SC SCH (20:41)
[2019-06-26] MEDS ORDERED: CEFEPIME HCL 1 GM in D5W MINI-BAG PLUS 50 ML IV ONE (21:00)
[2019-06-26] MEDS: rOPINIRole 2MG TAB PO SCH (21:16)
[2019-06-26] MEDS: SIMVASTATIN 20 MG TAB PO SCH (21:16)
[2019-06-27] VITALS (21 sets, daily range): BP systolic 74–119; BP diastolic 32–66
[2019-06-27] MEDS ORDERED: NS 250 ML IV ONE (01:00)
[2019-06-27] MEDS ORDERED: FUROSEMIDE 20 MG/2 ML VIAL (J1940) IV SCH (01:30)
[2019-06-27] MEDS ORDERED: MIDODRINE 5 MG TAB PO ONE (02:30)
[2019-06-27 05:05] LABS: HEMATOCRIT 23.8 % (36.0-47.0); HEMOGLOBIN 7.2 g/dl (12.0-15.5); MEAN CORPUSCULAR HEMOGLOBIN 29.4 pg (27.0-33.0); MEAN CORPUSCULAR HGB CONC 30.3 g/dl (32.0-36.5); MEAN CORPUSCULAR VOLUME 97.1 fl (80.0-96.0); PLATELET COUNT, AUTOMATED 171 10^3/uL (150-450); RED BLOOD COUNT 2.45 10^6/uL (4.00-5.40); WHITE BLOOD COUNT 12.4 10^3/uL (4.0-10.0)
[2019-06-27] MEDS: LEVOTHYROXINE 125MCG TABLET (0.125MG) PO SCH (05:10)
[2019-06-27] MEDS: HEPARIN SOD (PORCINE) 5000 UNITS/ML VIAL SC SCH ×3 (05:10→21:25)
[2019-06-27] MEDS: HumaLOG INSULIN (NovoLOG) PER UNIT SC SCH ×4 (05:18→21:00)
[2019-06-27 05:35] LABS: BILIRUBIN,TOTAL 0.3 MG/DL (0.2-1.0); C REACTIVE PROTEIN QUANTITATIV 17.6 MG/DL (0.00-0.30); CALCIUM LEVEL 6.7 MG/DL (8.8-10.2); ERYTHROCYTE SEDIMENTATION RATE 60 mm/hr (0-30); GLOMERULAR FILTRATION RATE 6.2 (>39); MAGNESIUM LEVEL 2.3 MG/DL (1.8-2.4); POTASSIUM SERUM 4.4 MEQ/L (3.5-5.1); TOTAL PROTEIN 4.7 GM/DL (6.4-8.2)
[2019-06-27] MEDS: MIDODRINE 5 MG TAB PO SCH ×2 (07:48→16:23)
[2019-06-27] MEDS: OYSTER SHELL CALCIUM 500 MG TAB PO SCH (07:49)
[2019-06-27] MEDS: rOPINIRole 2MG TAB PO SCH ×2 (07:49→21:22)
--- NOTE | 2019-06-27 07:49 | HPEPDOC ---
General Date of Admission 06/26/19 Date of Service: Jun 26, [address] Grullon, Dr Estrella, Dr Baeza Attending Physician: JEANINE AU DO Chief Complaint The patient is a 68-year-old female admitted with a reason for visit of unresponsive. Source: Family, EMS, Old records Exam Limitations: Other (lethargy) Timing/Duration: Unsure Severity: Severe Associated Symptoms: Unobtainable History of Present Illness 68yo diabetic female with ESRD and endstage liver disease brought into ED because of increased sleep, confusion and lethargy. Patient only opens eyes to verbal stimuli and says her name. She is unable to answer any other questions. history obtained from ED doctor and family. She was recently discharged on 06/12 with encephalopathy and electrolyte disturbances Patient has been hypotensive for past 2 weeks. She had her usual dialysis on tuesday06/22/19 but it was cut short because of hypotension. She missed her dialysis appointment on tuesday because of paracentesis performed. She had 8200cc removed on 06/25/19. Family states she had fever (100.6) and confused before paracentesis but does not know when fever first started. States this AM approx 0200 they went to check on her and she was confused, fever, chills and told them "didn't feel right". She missed her podiatry appointment today because she was still sleeping. Family became concerned when it was difficult to awaken her this AM and called EMS. Per verbal report from family, patient was NOT hypoglycemic. Family states patient had no pain, no SOB, no N no V. States had left BKA in march and since then has been seeing Dr Estrella and chronic wound vac. They state redness to right pretib area and left BKA is new today. Family states patient fell while transferring from chair to commode 1 week ago and landed on right knee but no further knee pain. In the ED, she was found to be febrile, lethargic, responding briefly to verbal and tactile stimuli, with leukocytosis, elevated lactate, hypotensive all suggestive of sepsis and is being admitted to ICU. She was given IVF and rocephin in ED. UC and BC pending. Home Medications Scheduled Calcium Carbonate (Oyster Shell Calcium) 500 Mg Tablet, 500 MG PO DAILY, (Reported) Duloxetine Hcl (Duloxetine HCl) 30 Mg Cap, 30 MG PO DAILY, (Reported) Gabapentin (Gabapentin) 100 Mg Capsule, 300 MG PO QHS, (Reported) Insulin Detemir (Levemir) 100 Unit/1 Ml Vial, 10 UNITS SC BID, (Reported) Insulin Lispro (Humalog) 100 Unit/Ml Inj, 1 DOSE SC AC, (Reported) PER SLIDING SCALE Levothyroxine Sodium (Synthroid) 125 Mcg Tab, 125 MCG PO DAILY, (Reported) Mineral Oil/Petrolatum,White (Hydrocerin Cream) 113 Gm Cream..g., 1 DOSE TOP DAILY, (Reported) APPLIES TO RIGHT LOWER EXTREMITIES Pantoprazole Sodium (Pantoprazole Sodium) 40 Mg Tab, 40 MG PO DAILY, (Reported) Ropinirole HCl (Ropinirole HCl) 2 Mg Tab, 6 MG PO BID, (Reported) Silver Sulfadiazine (Ssd) 50 Gm Cream..g., 1 DOSE EXT DAILY, (Reported) USED ON BIG TOE OF RIGHT FOOT Simvastatin (Simvastatin) 20 Mg Tab, 20 MG PO QHS, (Reported) Trazodone HCl (Trazodone HCl) 100 Mg Tablet, 200 MG PO QHS, (Reported) Scheduled PRN Calcium Carbonate (Tums) 500 Mg Chw, 1,000 MG PO PC PRN for HEARTBURN/INDIGESTION, (Reported) Oxycodone HCl/Acetaminophen (Percocet 5-325 mg Tablet) 1 Each Tablet, 1 TAB PO Q6H PRN for PAIN, (Reported) Patiromer Calcium Sorbitex (Veltassa) 8.4 Gm Pow, 8.4 GM PO ASDIRECTED PRN for MISSING DIALYSIS, (Reported) Allergies Coded Allergies: pregabalin (Verified Adverse Reaction, Intermediate, "feeling weird", SI thoughts., 06/07/19) vancomycin (Verified Adverse Reaction, Mild, DIARRHEA, 06/07/19) Past Medical History Medical History 1. End-stage renal disease on hemodialysis (MWF) 2. End-stage liver disease on paracentesis every two weeks, recent increase in frequency (last paracentesis: 06/05 and 05/24) 3. Type 2 diabetes, Insulin Dependent 4. Chronic anemia due to chronic kidney disease. 5. Peripheral vascular disease status post left BKA. 6. Coronary artery disease status post stenting. 7. Liver cirrhosis with recurrent ascites 8. HFpEF 9. Hypothyroidism 10. HTN 11. DLP 12. Depression/anxiety PAST SURGICAL HISTORY: 1. Left BKA 03/2019. 2. Left arteriovascular (AV) fistula. 3. Appendectomy. 4. Hysterectomy. 5. Cataract surgery. SOCIAL HISTORY: Marital status: , no tobacco or EtOH use ( in december 2018) FAMILY HISTORY: mother from DM complications; father from accidental young age A-FIB/CHADSVASC A-FIB History Current/History of A-Fib/PAF?: No Review of Systems Other systems unable to obtain due to patient encephalopathy. see history with family's ROS for patient Physical Examination General Exam: Positive: Other (obtunded, opens eyes to name and tactile stimuli, says name (slurred) and falls back to sleep; airway protected. oxygenating well) Eye Exam: Positive: PERRLA, Conjunctiva & lids normal ENT Exam: Positive: Atraumatic, Other ENT (oral mucosa dry) Neck Exam: Positive: Supple, +2 carotid pulse wo bruit, Other (no cervical adenopathy) Chest Exam: Positive: Clear to auscultation, Normal air movement (anteriorly) Heart Exam: Positive: Rate Normal, Regular Rhythm, Murmurs Telemetry: Positive: No significant arrhythmia, Sinus, Other Telemetry: (EKG image reviewed with NSR 87 bpm and old anteroseptal MT (no change from 06/09/19 EKG)) Abdomen Exam: Positive: Normal bowel sounds, Soft (obese, NT , distended with anasarca,1-2+ pitting edema; no ascites wave demonstrated on exam;) Extremity Exam: Positive: Edema (2+ pitting from toes to abdomen), Swelling, Other (left BKA stump with wound vac and mild erythema to thigh but no sharp demarcation; Right pretib with warm,erythema, weeping blisters; right toes with hard diabetic callouses but no necrotic tissues noted. Right foot with open diabetic ulcer to bottom of hallux, no active drainage) Skin Exam: Positive: Other skin issue (as above; skin to hands appears dry/tented, poor skin turgor;) Neuro Exam: Positive: Other (unable to assess due to lethargy/encephalopathy) Psych Exam: Positive: Other (unable to assess) Other physical findings CXR images reviewed, small right pleural effusion; interstitial changes CT ABD/PEL:Impression: 1. Lung bases suggesting interstitial edema as well as small pericardial effusion. 2. Cirrhosis cannot be excluded. 3. Moderate amount of ascites and extensive subcutaneous edema throughout the abdomen and pelvis. 4. Scattered diverticula without obvious acute diverticulitis. No bowel obstruction or free air to suggest perforation. Right knee: no fracture; +OA HEAD CT: Impression: Age related atrophy and microvascular ischemic changes. No acute intracranial hemorrhage, infarction, or mass/mass effect. Vital Signs Vital Signs Date Time Temp Pulse Resp B/P (MAP) Pulse Ox O2 Delivery O2 Flow Rate FiO2 06/26/19 12:46 Nasal Cannula 2.0 06/26/19 11:08 102.0 96 25 95/51 (66) 95 Laboratory Data Labs 24H Laboratory Tests 2 06/26/19 11:13: Bedside Glucose (Misc Panel) 250H 06/26/19 11:32: Lactic Acid Level 1.8, Ammonia 47H 06/26/19 11:33: Immature Granulocyte % (Auto) 2.4, White Blood Count 24.6H, Red Blood Count 2.57L, Hemoglobin 7.8L, Hematocrit 25.3L, Mean Corpuscular Volume 98.4H, Mean Corpuscular Hemoglobin 30.4, Mean Corpuscular Hemoglobin Concent 30.8L, Red Cell Distribution Width 19.8H, Platelet Count 170, Neutrophils (%) (Auto) 89.9H, Lymphocytes (%) (Auto) 3.6L, Monocytes (%) (Auto) 3.8, Eosinophils (%) (Auto) 0.1, Basophils (%) (Auto) 0.2, Neutrophils # (Auto) 22.1H, Lymphocytes # (Auto) 0.9L, Monocytes # (Auto) 0.9H, Eosinophils # (Auto) 0.0, Basophils # (Auto) 0.0, Nucleated Red Blood Cells % (auto) 0.2H, Erythrocyte Sedimentation Rate 55H, Anion Gap 12, Glomerular Filtration Rate 6.0L, Osmolality 302H, Calcium Level 6.8L, Aspartate Amino Transf (AST/SGOT) 20, Alanine Aminotransferase (ALT/SGPT) 22, Alkaline Phosphatase 288H, Total Bilirubin 0.5, Direct Bilirubin 0.3H, Total Creatine Kinase 85, Creatine Kinase MB 1.9, Creatine Kinase MB Relative Index 2.24, Troponin I 0.03, Total Protein 4.5L, Albumin 1.5L, Albumin/Globulin Ratio 0.50L, Thyroid Stimulating Hormone (TSH) 3.650, Salicylates Level < 1.7L, Acetaminophen Level 8.4L, Ethyl Alcohol Level 0.003 06/26/19 11:34: Blood Gas Bicarbonate Standard 20.5, Venous Blood pH 7.371, Venous Blood Partial Pressure CO2 35.2L, Venous Blood Partial Pressure O2 143.7H, Venous Blood Total Carbon Dioxide 21.0L, Venous Blood HCO3 19.9L, Venous Blood Oxygen Saturation 98.9H, Venous Blood Base Excess -4.8L 06/26/19 11:52: Phosphorus Level 4.9, Magnesium Level 2.3, C-Reactive Protein, Quantitative 13.40H 06/26/19 12:10: POC Glucose (Misc Panel) 236H, POC Sodium (Misc Panel) 131L, POC Potassium (Misc Panel) 4.7, POC Chloride (Misc Panel) 98, POC Total CO2 (Misc Panel) 21.0L, POC Blood Urea Nitrogen (Misc Panel 70H, POC Ionized Calcium (Misc Panel) 3.8L, POC Creatinine (Misc Panel) 7.3H, POC Hematocrit (Misc Panel) 30.0L 06/26/19 12:33: Urine Color (VIRGEN) BROWNH, Urine Appearance (VIRGEN) TURBIDH, Urine pH (VIRGEN) 7.0, Ur ine Specific [place] (VIRGEN) 1.010, Urine Protein 3+H, Bedside Urine Glucose (UA) 1+(100 MG/DL)H, Bedside Urine Ketones (LAB) NEGATIVE, Bedside Urine Blood POSITIVEH, Bedside Urine Nitrite (LAB) N, Bedside Urine Bilirubin (LAB) NEGATIVE, Bedside Urine Urobilinogen (LAB) N, Bedside Urine Leukocyte Esterase (L POSITIVEH, Urine Sediment Examination PERFORMED, Urine RBC 3-5H, Urine WBC TNTCH, Urine Squamous Epithelial Cells SMALL AMOUNT, Urine Renal Epithelial Cells SMALL AMOUNTH, Urine Bacteria SMALL AMOUNTH, Urine Hyaline Casts NONE SEEN, Urine Amphetamines Screen NEGATIVE, Urine Benzodiazepines Screen NEGATIVE, Urine Opiates Screen NEGATIVE, Urine Methadone Screen NEGATIVE, Urine Barbiturates Screen NEGATIVE, Urine Phencyclidine Screen NEGATIVE, Urine Cocaine Metabolite Screen NEGATIVE, Urine Cannabinoids Screen NEGATIVE CBC/BMP Laboratory Tests 06/26/19 11:33 Red Blood Count 2.57 L, Mean Corpuscular Volume 98.4 H, Mean Corpuscular Hemoglobin 30.4, Mean Corpuscular Hemoglobin Concent 30.8 L, Red Cell Distribution Width 19.8 H, Neutrophils (%) (Auto) 89.9 H, Lymphocytes (%) (Auto) 3.6 L, Monocytes (%) (Auto) 3.8, Eosinophils (%) (Auto) 0.1, Basophils (%) (Auto) 0.2, Neutrophils # (Auto) 22.1 H, Lymphocytes # (Auto) 0.9 L, Monocytes # (Auto) 0.9 H, Eosinophils # (Auto) 0.0, Basophils # (Auto) 0.0 Microbiology Microbiology 06/26/19 Blood Culture, Received Pending 06/26/19 Blood Culture, Received Pending 06/26/19 Urine Culture, Received Pending Assessment/Plan 1) metabolic encephalopathy - suspected due to underlying hypotension, sepsis and possible hepatic/uremic encephalopathy ammonia level pending; treat underlying etiologies;hold gabapentin and oxycodone; NPO until fully awake then renal diet 2) Sepsis - suspect probable left BKA is source, although need to r/o SBP; given rocephin in ED - will start patient on zyvox/cefepime; await UC/BC. IVF sepsis protocol given in ED. continue with IVF bolus, midodrine and hold antihypertensive meds. 3) Hypotension - etiology includes possible sepsis vs worsening ESRD/Endstage liver disease; fluid bolus prn; albumin/lasix q4h x 3 doses; consider pressors 4) cellulitis left leg - zyvox/cefepime IV, IVF; Dr Estrella considering debridement tomorrow if Blood pressure will support procedure. 5) ESRD with fluid overload state/third spacing although appears intravascularly dry - Dr Grullon consulted thru ED. 6) Endstage liver disease - cefepime for SBP prophylaxis. family states fever started PRIOR to paracentesis 7) Heart murmur with small pericardial effusion on CT - check blood cultures, check cardiac echo 8) Interstital lung disease - IS when awake, NEBs, consider steroids 9) hypothyroid -stable 10) Diabetes with correction insulin, hyperglycemia, diabetic nephropathy - while NPO continue with q6h accucheck, levemire and SSI Prognosis: guarded/poor DVT prophylaxis: hep SC CODE STATUS: DNR/DNI Plan / VTE VTE Prophylaxis Ordered?: Yes JEANINE AU DO Jun 26, 2019 14:05
[2019-06-27] MEDS: LEVEMIR (INSULIN DETEMIR) 1 UNITS/0.01ML SC SCH ×2 (07:50→21:28)
[2019-06-27] MEDS: ALBUTEROL SULFATE 2.5 MG/0.5 ML INH NEB SOLN NEB SCH ×4 (08:04→20:57)
--- NOTE | 2019-06-27 10:05 | IPNPDOC ---
Date Seen The patient was seen on 06/27/19. Progress Note Vascular Surgery Dr Estrella. HPI: The pt is a 68yoF status post Left BKA 04/06/19, S/P Left stump wound debridement 04/21/19, stump debridement and wound vac placement 04/27/[address] Estrella. The patient had been scheduled for Left BKA wound debridement as per Dr Estrella 06/08/19, however the pt had missed several dialysis sessions and labs indicated electrolyte abnormalities (hyperkalemia, hypocalcemia), therefore the pt was admitted as per Hospitalist service, nephrology consulted for HD manag ement. The patient was subsequently discharged 06/12/19. The patient return to the office 06/25/19 for follow-up. She reported she had missed dialysis last Tuesday. She attended Tuesday and Tuesday. She had also apparently missed her appointment for paracentesis and was rescheduled for 06/25/19. She was planning to missing her dialysis session 06/25/19 to have the paracentesis completed. Wound VAC remains in place on the left BKA. She had been rescheduled for left BKA wound debridement 06/29/19. The patient was apparently found unresponsive at home and was brought to the emergency department for evaluation. Vascular surgery is consulted re Lt BKA wound. Pt is known to have wound on Rt great toe and medial aspect of foot. Pt states this is followed as per Dr Baeza and was last seen there about 1 week ago. Feels generally fatigued today. Denies dizziness. Denies any fevers, chills, Headache, Chest Pain, Shortness of breath, cough, palpitations, abdominal pain, changes bladder habits. PAST MEDICAL HISTORY: 1. End-stage renal disease on hemodialysis (MWF) 2. End-stage liver disease on paracentesis every two weeks, recent increase in frequency (last paracentesis: 06/05 and 05/24) 3. Type 2 diabetes, Insulin Dependent 4. Chronic anemia due to chronic kidney disease. 5. Peripheral vascular disease status post left BKA. 6. Coronary artery disease status post stenting. 7. Liver cirrhosis with recurrent ascites 8. HFpEF 9. Hypothyroidism 10. HTN 11. DLP 12. Depression/anxiety PAST SURGICAL HISTORY: 1. Left BKA. 2. Left arteriovascular (AV) fistula. 3. Appendectomy. 4. Hysterectomy. 5. Cataract surgery. PE: GEN: 68yoF, appears chronically ill. HEENT: Normocephalic, atraumatic. Moist mucous membranes. CHEST: Regular rate and rhythm, +S1, +S2 LUNGS: Clear to auscultation bilaterally. No wheezes, rales, or rhonchi. Breathing appears symmetric and easy. ABD: Round, non-tender, mildly distended. +Bowel sounds throughout. No rebound or guarding. EXT: Rt foot wrapped in bandage which is removed. Ulceration is noted of Rt great toe and lateral aspect of the foot, small amount of yellowish drainage, erythema noted of the pretibial area. Pulses Rt foot obtained with doppler and noted to be monophasic. Lt BKA with wound vac intact. Decreased edema noted. NEURO: Alert and oriented x 3. Cranial nerves III-XII are intact. No focal deficits appreciated. Urine culture pending. Blood culture 2 pending. A&P: 1. Left BKA 04/06/19, S/P Left stump wound debridement 04/21/19, stump debridement and wound vac placement 04/27/[address] Estrella. Patient is Tmax 102 06/26/19. Systolic blood pressures 80s to 90s. WBC 12.4. Urine culture pending. Blood Culture 2 pending. Pt with chronic wound, wound vac intact currently. Reviewed with Dr Estrella, tentative plan for wound debridement 06/27/19. Antibiotics as per primary team. Currently IV linezolid/Cefepime 2. Possible UTI. Management as per primary team. Urine culture pending. 3. Rt Foot wound. Continue mgmt and outpt FU as per Dr Baeza. Wound care as per Dr Baeza. Consider Podiatry consult if needed. VS, I&O, [facility], [facility] Vital Signs/I&O Vital Signs Date Time Temp Pulse Resp B/P (MAP) Pulse Ox O2 Delivery O2 Flow Rate FiO2 06/27/19 09:02 98.6 76 20 95/55 (68) 96 2.0 06/26/19 15:25 Nasal Cannula I&O- Last 24 Hours up to 6 AM 06/27/19 05:59 Intake Total 3180 ml Output Total 20 ml Balance 3160 ml Laboratory Data 24H LABS Laboratory Tests 2 06/26/19 11:13: Bedside Glucose (Misc Panel) 250H 06/26/19 11:32: Lactic Acid Level 1.8, Ammonia 47H 06/26/19 11:33: Immature Granulocyte % (Auto) 2.4, White Blood Count 24.6H, Red Blood Count 2.57L, Hemoglobin 7.8L, Hematocrit 25.3L, Mean Corpuscular Volume 98.4H, Mean Corpuscular Hemoglobin 30.4, Mean Corpuscular Hemoglobin Concent 30.8L, Red Cell Distribution Width 19.8H, Platelet Count 170, Neutrophils (%) (Auto) 89.9H, Lymphocytes (%) (Auto) 3.6L, Monocytes (%) (Auto) 3.8, Eosinophils (%) (Auto) 0.1, Basophils (%) (Auto) 0.2, Neutrophils # (Auto) 22.1H, Lymphocytes # (Auto) 0.9L, Monocytes # (Auto) 0.9H, Eosinophils # (Auto) 0.0, Basophils # (Auto) 0.0, Nucleated Red Blood Cells % (auto) 0.2H, Erythrocyte Sedimentation Rate 55H, Anion Gap 12, Glomerular Filtration Rate 6.0L, Osmolality 302H, Calcium Level 6 .8L, Aspartate Amino Transf (AST/SGOT) 20, Alanine Aminotransferase (ALT/SGPT) 22, Alkaline Phosphatase 288H, Total Bilirubin 0.5, Direct Bilirubin 0.3H, Total Creatine Kinase 85, Creatine Kinase MB 1.9, Creatine Kinase MB Relative Index 2.24, Troponin I 0.03, Total Protein 4.5L, Albumin 1.5L, Albumin/Globulin Ratio 0.50L, Thyroid Stimulating Hormone (TSH) 3.650, Salicylates Level < 1.7L, Acetaminophen Level 8.4L, Ethyl Alcohol Level 0.003 06/26/19 11:34: Blood Gas Bicarbonate Standard 20.5, Venous Blood pH 7.371, Venous Blood Partial Pressure CO2 35.2L, Venous Blood Partial Pressure O2 143.7H, Venous Blood Total Carbon Dioxide 21.0L, Venous Blood HCO3 19.9L, Venous Blood Oxygen Saturation 98.9H, Venous Blood Base Excess -4.8L 06/26/19 11:52: Phosphorus Level 4.9, Magnesium Level 2.3, C-Reactive Protein, Quantitative 13.40H 06/26/19 12:10: POC Glucose (Misc Panel) 236H, POC Sodium (Misc Panel) 131L, POC Potassium (Misc Panel) 4.7, POC Chloride (Misc Panel) 98, POC Total CO2 (Misc Panel) 21.0L, POC Blood Urea Nitrogen (Misc Panel 70H, POC Ionized Calcium (Misc Panel) 3.8L, POC Creatinine (Misc Panel) 7.3H, POC Hematocrit (Misc Panel) 30.0L 06/26/19 12:33: Urine Color (VIRGEN) BROWNH, Urine Appearance (VIRGEN) TURBIDH, Urine pH (VIRGEN) 7.0, Urine Specific [place] (VIRGEN) 1.010, Urine Protein 3+H, Bedside Urine Glucose (UA) 1+(100 MG/DL)H, Bedside Urine Ketones (LAB) NEGATIVE, Bedside Urine Blood POSITIVEH, Bedside Urine Nitrite (LAB) N, Bedside Urine Bilirubin (LAB) NEGATIVE, Bedside Urine Urobilinogen (LAB) N, Bedside Urine Leukocyte Esterase (L POSITIVEH, Urine Sediment Examination PERFORMED, Urine RBC 3-5H, Urine WBC TNTCH, Urine Squamous Epithelial Cells SMALL AMOUNT, Urine Renal Epithelial Cell s SMALL AMOUNTH, Urine Bacteria SMALL AMOUNTH, Urine Hyaline Casts NONE SEEN, Urine Amphetamines Screen NEGATIVE, Urine Benzodiazepines Screen NEGATIVE, Urine Opiates Screen NEGATIVE, Urine Methadone Screen NEGATIVE, Urine Barbiturates Screen NEGATIVE, Urine Phencyclidine Screen NEGATIVE, Urine Cocaine Metabolite Screen NEGATIVE, Urine Cannabinoids Screen NEGATIVE 06/26/19 17:18: Bedside Glucose (Misc Panel) 239H 06/26/19 23:38: Bedside Glucose (Misc Panel) 319H 06/27/19 04:45: Nucleated Red Blood Cells % (auto) 0.2H, Erythrocyte Sedimentation Rate 60H, Anion Gap 10, Glomerular Filtration Rate 6.2L, Blood Urea Nitrogen 78H, Creatin ine 7.00H, Sodium Level 136, Potassium Level 4.4, Chloride Level 103, Carbon Dioxide Level 23, Calcium Level 6.7L, Aspartate Amino Transf (AST/SGOT) 20, Alanine Aminotransferase (ALT/SGPT) 23, Alkaline Phosphatase 227H, Total Bilirubin 0.3, Total Protein 4.7L, Albumin 2.0#L, Magnesium Level 2.3, Ammonia 46H, C-Reactive Protein, Quantitative 17.60H, Albumin/Globulin Ratio 0.74L 06/27/19 05:12: Bedside Glucose (Misc Panel) 242H CBC/BMP Laboratory Tests 06/26/19 11:33 Red Blood Count 2.57 L, Mean Corpuscular Volume 98.4 H, Mean Corpuscular Hemoglobin 30.4, Mean Corpuscular Hemoglobin Concent 30.8 L, Red Cell Distribution Width 19.8 H, Neutrophils (%) (Auto) 89.9 H, Lymphocytes (%) (Auto) 3.6 L, Monocytes (%) (Auto) 3.8, Eosinophils (%) (Auto) 0.1, Basophils (%) (Auto) 0.2, Neutrophils # (Auto) 22.1 H, Lymphocytes # (Auto) 0.9 L, Monocytes # (Auto) 0.9 H, Eosinophils # (Auto) 0.0, Basophils # (Auto) 0.0 06/27/19 04:45 Red Blood Count 2.45 L, Mean Corpuscular Volume 97.1 H, Mean Corpuscular Hemoglobin 29.4, Mean Corpuscular Hemoglobin Concent 30.3 L, Red Cell Distribution Width 19.8 H, Calcium Level 6.7 L, Aspartate Amino Transf (AST/SGOT) 20, Alanine Aminotransferase (ALT/SGPT) 23, Alkaline Phosphatase 227 H, Total Bilirubin 0.3, Total Protein 4.7 L, Albumin 2.0 #L Microbiology Microbiology 06/26/19 Blood Culture, Received Pending 06/26/19 Blood Culture, Received Pending 06/26/19 Urine Culture, Received Pending Trini Vieira Jun 27, 2019 10:05
[2019-06-27] MEDS ORDERED: cefTRIAXone SOD 2 GM VIAL (J0696 PER 250MG) IM SCH (12:00)
[2019-06-27] MEDS: oxyCODONE 5MG TAB PO PRN ×3 (12:13→21:22)
[2019-06-27] MEDS: ONDANSETRON 4 MG ORAL DISINTEGRATING TAB (Q0162 PER 1MG) PO PRN (12:14)
--- NOTE | 2019-06-27 13:36 | IPNPDOC ---
Text Note Date of Service The patient was seen on 06/27/19. NOTE S: patient more alert today. tolerated meal last night and is NPO this AM for possible left BKA debridement and for dialysis. Dr Grullon states pateint is chronically hypotensive and requested d/c IVF bolus. Patient states feels better. she states bed is giving her low back pain and occipital [place]. States intermittent right lower extremity leg/foot pain. no N, no V, no SOB, no CP. O: Vitals as below general: pleasant , AAOx3, NAD HRRR with murmur LCTA no W/R/R, good inspir/expir effort Abdomen: obese NT ND NABS Ext: left BKA with warmth, erythema; wound vac in place (management per Dr Estrella); right pretib with venous stasis changes but no calor/rubor; pretibia abrasion weeping; right foot with open diabetic callous to underside of hallux; 2+ pitting edema to legs A/P: 1) metabolic encephalopathy - suspected due to underlying hypotension, sepsis and possible hepatic/uremic encephalopathy; RESOLVED. unclear etiology but suspect due to sepsis and medications (oxycodone/gabapentin and trazadone). 2) Sepsis - suspect probable left BKA is source, although need to r/o SBP; given rocephin in ED; changed to zyvox/cefepime (hold cymbalta while on zyvox). await /. IVF sepsis protocol given in ED. continue with prn midodrine and hold antihypertensive meds. 3) Hypotension - etiology includes possible sepsis vs worsening ESRD/Endstage liver disease; albumin/lasix q4h x 4 doses given, will give additional albumin dose prior to dialysis; consider pressors if MAP under 65; 4) cellulitis left leg - zyvox/cefepime IV, IVF; Dr Estrella consulted; Will have surgical debridement this afternoon of left BKA. If increase pain, consider restarting renal dose gabapentin. 5) ESRD with fluid overload state/third spacing although appears intravascularly dry - Dr Grullon consulted ; recommends d/c IVF bolus; will have dialysis today; 6) Endstage liver disease - cefepime for SBP prophylaxis. family states fever started PRIOR to paracentesis; hold trazadone. consider starting spironolactone. Ammonia 42 - no need for lactulose at this time, mentation improved . 7) Heart murmur with small pericardial effusion on CT - check blood cultures, check cardiac echo 8) Interstital lung disease - IS when awake, NEBs, consider steroids 9) hypothyroid -stable 10) Diabetes with jail insulin, hyperglycemia, diabetic nephropathy - while NPO continue with q6h accucheck, levemir and SSI; once diet advanced change to ac/hs 11) right diabetic foot ulcer present on admission - consult podiatry VS,Hannah, I+O VS, Hannah, I+O Laboratory Tests 06/26/19 11:33 Red Blood Count 2.57 L, Mean Corpuscular Volume 98.4 H, Mean Corpuscular Hemoglobin 30.4, Mean Corpuscular Hemoglobin Concent 30.8 L, Red Cell Distribution Width 19.8 H, Neutrophils (%) (Auto) 89.9 H, Lymphocytes (%) (Auto) 3.6 L, Monocytes (%) (Auto) 3.8, Eosinophils (%) (Auto) 0.1, Basophils (%) (Auto) 0.2, Neutrophils # (Auto) 22.1 H, Lymphocytes # (Auto) 0.9 L, Monocytes # (Auto) 0.9 H, Eosinophils # (Auto) 0.0, Basophils # (Auto) 0.0 06/27/19 04:45 Red Blood Count 2.45 L, Mean Corpuscular Volume 97.1 H, Mean Corpuscular Hemoglobin 29.4, Mean Corpuscular Hemoglobin Concent 30.3 L, Red Cell Distribution Width 19.8 H, Calcium Level 6.7 L, Aspartate Amino Transf (AST/SGOT) 20, Alanine Aminotransferase (ALT/SGPT) 23, Alkaline Phosphatase 227 H, Total Bilirubin 0.3, Total Protein 4.7 L, Albumin 2.0 #L Vital Signs Date Time Temp Pulse Resp B/P (MAP) Pulse Ox O2 Delivery O2 Flow Rate FiO2 06/27/19 09:02 98.6 76 20 95/55 (68) 96 2.0 06/26/19 15:25 Nasal Cannula I&O- Last 24 Hours up to 6 AM 06/27/19 06:00 Intake Total 3180 ml Output Total 20 ml Balance 3160 ml JEANINE AU DO Jun 27, 2019 10:23
--- NOTE | 2019-06-27 14:11 | CR ---
DATE OF CONSULTATION: 06/27/[address] JEANINE AU REASON FOR CONSULTATION: To assist in the management of end stage renal disease. HISTORY OF PRESENT ILLNESS: Mrs. Hernandez is a 68-year-old female with multiple chronic medical problems. She has been admitted to [facility] multiple times. She has known history of long standing poorly controlled diabetes, hypertension, end stage renal disease requiring maintenance hemodialysis, congestive heart failure, coronary artery disease, cirrhosis of liver with recurrent ascites requiring frequent paracenteses, history of severe peripheral vascular disease status post left below the knee amputation. The patient missed her dialysis treatment on Tuesday. She did have paracentesis on Tuesday and then she came to the emergency room yesterday via ambulance due to altered mentation and was found to be septic. She is admitted to the intensive care unit. The emergency room physician had called yesterday and the patient is seen this morning. She did miss her dialysis treatment, however, she was septic and hypotensive yesterday so there was no question for dialysis. In addition, her potassium level was normal so there was no urgent need for dialysis yesterday anyway. I have seen this morning in the intensive care unit. The patient has complaint of back pain and generalized aches and pains. She has been quite noncompliant with her medical care, including dialysis. PAST MEDICAL HISTORY (Significant for): 1. Long standing poorly controlled diabetes. 2. End stage renal disease secondary to diabetic nephropathy. 3. Hypertension. 4. Coronary artery disease with prior myocardial infarction ([place]), status post angioplasty with stent. 5. History of congestive heart failure. 6. History of chronic anemia with recurrent gastrointestinal (GI) bleeds requiring transfusions. 7. Hypothyroidism. 8. Dyslipidemia. 9. History of depression and anxiety. 10. History of severe peripheral vascular disease, status post left below the knee amputation. 11. History of diabetic retinopathy. PAST SURGICAL HISTORY (Significant for): 1. Left below the knee amputation. 2. Left AV fistula in her arm. 3. Appendectomy. 4. Hysterectomy. 5. Cataract surgery. 6. Multiple debridements of her leg wounds. PERSONAL AND SOCIAL HISTORY: The patient is recently . She denies any tobacco or alcohol use. FAMILY HISTORY: Significant for diabetes. There is no history of end stage renal disease. ALLERGIES: VANCOMYCIN and LYRICA. HOME MEDICATIONS: - calcium carbonate 500 mg two tablets three times a day with meals - duloxetine 30 mg daily - gabapentin 300 mg at bedtime - Levemir insulin 10 units twice a day - Humalog insulin per sliding scale - levothyroxine 125 mcg daily - oxycodone as needed for pain - Protonix 40 mg daily - VELTASSA 8.4 grams as needed for hyperkalemia - Requip 6 mg twice a day - simvastatin 20 mg daily - trazodone 100 mg at bedtime REVIEW OF SYSTEMS: The patient is very weak and laying in the bed with eyes closed. She is able to answer questions. She is generally not feeling well and has complained of severe back pain. She denies any fever or chills at home. Ears, nose and throat are unremarkable. Cardiovascular System: Significant for congestive heart failure and coronary artery disease. She denies any chest pain at present. She is short of breath. Respiratory System: Significant for shortness of breath, but denies any hemoptysis or pleuritic type of chest pain. Gastrointestinal (GI) System: Significant for ascites and cirrhosis. She had a paracentesis done on Tuesday. She also has history of recurrent GI bleed and has required transfusions. Genitourinary () System: Significant for history of recurrent urinary tract infections and end stage renal disease. Endocrine System: Significant for poorly controlled diabetes, hypothyroidism and secondary hyperparathyroidism. Hematological System: Significant for recurrent anemia with GI bleed. Psychosocial System: Significant for depression and anxiety. She has been chronically noncompliant with her medical care. Musculoskeletal System: Significant for back pain. She has left below the knee amputation recently and has cellulitis on her right leg now. PHYSICAL EXAMINATION: Temperature 98.7 degrees Fahrenheit. Heart rate 74 per minute. Respiratory rate 18 per minute. Blood pressure 98/56 mmHg. Oxygen saturation 97% on 2 liters oxygen. Head is atraumatic. She has no oral thrush or ulcers. She is pale and chronically ill looking. Neck veins are markedly distended. There are no cervical lymph nodes. Heart sounds are regular and without a pericardial friction rub. Lungs were diminished breath sounds at the lower half bilaterally. Abdomen is markedly distended with a large amount of ascites and it is nontender. Bowel sounds are present. Extremities have no cyanosis or clubbing. She has a left below the knee amputation and stump is wrapped in a dressing. She has a wound on her medial side of the right foot and cellulitis on her right leg. She has marked edema of both lower extremities. Neurologically, she is awake and able to answer questions. LABORATORY DATA: WBC is 12.4, hemoglobin 7.2, and hematocrit 23.8. Platelets 171. Sodium 136, potassium 4.4, CO2 23, BUN 78 and creatinine 7.0. Glucose 224, calcium 6.7, ammonia level 46 and C-reactive protein is 17.6. Blood gas showed a pH of 7.37, pCO2 35, pO2 143 and bicarbonate 20.5 yesterday. Urinalysis showed too numerous to count WBCs and 3-5 RBCs. PROBLEMS: 1. Septic shock. The patient has received IV fluids and albumin. Her blood pressure is now at about baseline. I do not feel that she needs pressors at present. She is probably septic from her left leg wound or from a urinary tract infection (UTI). She is receiving broad spectrum antibiotic with Cefepime and Zyvox. I will recommend not to give her further IV fluid as she is already volume overloaded. 2. End stage renal disease. The patient missed her dialysis on Tuesday. She is going to be dialyzed today. I will give her one dose of IV albumin just before dialysis and try to remove about 2 liters of fluid. 3. Cirrhosis of liver with recurrent ascites. This is a significant issue and she requires paracentesis almost every week. She had a paracentesis done just two days ago and now she has massive ascites again. 4. Peripheral vascular disease and infected wounds. She has left below the knee amputation with poor healing of stump and infected wound. She also has a wound on her right foot and cellulitis on her back leg. She is receiving antibiotics, including Zyvox and Cefepime. 5. Anemia. She has significant anemia with history of GI bleed. Will dialyze her today and try to remove some fluid. I will hold off on transfusion at least until tomorrow. We will probably consider to dialyze her again tomorrow if needed. 6. Protein calorie malnutrition. The patient has failure to thrive with severe malnourishment. Since her , she has done very poorly. She did have a DO NOT RESUSCITATE signed which she has probably rescinded. I will recommend DO NOT RESUSCITATE at least for her. 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 Thank you for involving me in the care of Mrs. Hernandez. I will follow her along with you.
--- NOTE | 2019-06-27 15:31 | ECHO ---
DATE OF PROCEDURE: 06/27/2019 HEIGHT: 62 inches. WEIGHT: 171 pounds. BODY SURFACE AREA: 1.8 meters squared. Inpatient ICU, room 3201. REFERRING PHYSICIAN: Dr. Anne-Marie Rivero. INDICATION: Murmur. MEASUREMENTS: 2D Measurements: RV - 3.7 cm LV - 4.6 cm Septum - 1.3 cm Posterior wall - 1.2 cm Aortic root - 3.3 cm LA - 4.4 cm LVEF - 75% Doppler Measurements: AV - 1.76 meters per second LVOT - 1.2 meters per second LVOT diameter - 1.8 cm MV - no significantly elevated peak diastolic filling velocities but could not differentiate early from late diastolic filling in light of the rapid heart rate and superimposition of both E and A waves. PV - 0.95 meters per second Pulmonary artery acceleration time - 106 milliseconds RVSP - 33 mmHg IVC - 1.6 cm COMMENTS: Sinus tachycardia without intraventricular conduction disturbance. M-mode and two-dimensional echocardiography was performed with pulsed, continuous wave, color flow and tissue Doppler studies. Mild concentric left ventricular hypertrophy with hyperkinetic wall motion. Mildly dilated left atrium but could not comment on LV diastolic function in light of her rapid rate. Normal right heart chamber sizes and motion with Doppler evidence of mild pulmonary hypertension. Normal IVC size and collapse against an elevated central venous pressure. Aortic valvular sclerosis without stenosis and only trace insufficiency. Normal aortic root size. Moderately severe mitral annular calcification without inflow tract obstruction and only trace to mild insufficiency. Normal appearing tricuspid valve with mild insufficiency. Miniscule posterior pericardial effusion. No apparent intracardiac mass.
[2019-06-27] MEDS: LINEZOLID 600 MG in IV 1 EA IV SCH (16:23)
--- NOTE | 2019-06-27 18:13 | IPN ---
DATE: 06/27/2019 CHIEF COMPLAINT: A 68-year-old female seen for evaluation of an ulceration on the plantar aspect of the right foot. She was admitted to the hospital for confusion and lethargy. She has a history of a recent below-knee amputation (BKA) on the left side, possible sepsis of this site. The patient also has a stage III wound of the right foot. I have been seeing her weekly to bi-monthly. She is seen today for evaluation of her right foot. ALLERGIES: PREGABALIN and VANCOMYCIN. PAST MEDICAL HISTORY: End-stage renal disease on hemodialysis, end-stage liver disease, type 2 diabetes insulin-dependent, chronic anemia due to kidney disease, peripheral artery disease, hypothyroidism, hypertension, and depression. PAST SURGICAL HISTORY: Left below-knee amputation (BKA), arteriovenous (AV) fistula left side, appendectomy, hysterectomy, cataract surgery, multiple debridements of her feet. PHYSICAL EXAMINATION: Of the patient's foot reveals an ulceration on the hallux, pre-debridement of 0.8 cm x 0.8 cm x 0.3 cm in depth, post debridement measuring 1.6 cm x 0.9 cm x 0.3 cm. Medial aspect of the first metatarsal of the right foot reveals an ulceration measuring 4 cm x 1.7 cm x 0.2 cm in depth, post debridement 4.5 cm x 2.8 cm x 0.2 cm in depth. There is a good granulation tissue base on the right hallux. The left hallux has an aspersed granulation and fibrinous tissue. There is no discharge. No surrounding erythema and no signs of infection of these ulcerations on the right foot. Her pedal pulses are not palpable. LABORATORY STUDIES: Reviewed and reveal a white count on admission of 24.6, today measures 12.4. ESR 55 on admission, 60 today. C-reactive protein was 13.4 on admission and 17.6 today. ASSESSMENT: Stage III ulcerations, right foot, as described, diabetes with neuropathy. PLAN: After appropriate time-out and consent was signed, utilizing a Oliva dermal curette, the area was incisionally debrided through the subcutaneous tissue. Hyperkeratotic rim was debrided. A dry sterile dressing was applied. Orders written to soak the wound with Vashe for 15 minutes followed by Silvadene and a dressing twice a day.
[2019-06-27] MEDS ORDERED: LIDOCAINE 2% INJ 100 MG/5 ML SDV (FOR ANES.) As Ordered ONE (18:27)
[2019-06-27] MEDS ORDERED: propofoL 200 MG/20 ML VIAL As Ordered ONE (18:27)
[2019-06-27] MEDS ORDERED: ONDANSETRON 4MG/2ML VIAL (J2405) As Ordered ONE (18:27)
[2019-06-27] MEDS ORDERED: MIDAZOLAM INJ 2 MG/2 ML VIAL (J2250) As Ordered ONE (18:27)
[2019-06-27] MEDS ORDERED: fentaNYL 100 MCG/2 ML INJECTION (J3010) As Ordered ONE ×2 (18:27→19:21)
[2019-06-27] MEDS ORDERED: LIDOCAINE 1% SDV INJ 30 ML VIAL As Ordered ONE (18:36)
[2019-06-27] MEDS ORDERED: BUPIVACAINE HCL 0.5% 30 ML VIAL As Ordered ONE (18:36)
--- NOTE | 2019-06-27 19:28 | ECGEPIP ---
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
[2019-06-27] MEDS ORDERED: NS 1,000 ML IV SCH (19:30)
[2019-06-27] MEDS ORDERED: NITROGLYCERIN IN D5W 25MG/250ML (100MCG/ML) IV SCH (19:30)
[2019-06-27] MEDS ORDERED: ONDANSETRON 4MG/2ML VIAL (J2405) IV PRN (19:30)
[2019-06-27] MEDS ORDERED: METOCLOPRAMIDE INJ 10MG/2ML VIAL (J2765) IV PRN (19:30)
[2019-06-27] MEDS ORDERED: fentaNYL 100 MCG/2 ML INJECTION (J3010) IV PRN (19:30)
[2019-06-27] MEDS ORDERED: PERCOCET 5MG/325MG TAB PO PRN (19:30)
[2019-06-27] MEDS: FAMOTIDINE IV BAG 20 MG in IV 1 EA IV SCH (20:21)
[2019-06-27] MEDS: SILVER SULFADIAZINE 1% CR 50 GM JAR TOP SCH ×2 (21:00→21:24)
[2019-06-27] MEDS ORDERED: CEFEPIME HCL 0.25 GM in D5W 50 ML IV SCH (21:00)
[2019-06-27] MEDS: SIMVASTATIN 20 MG TAB PO SCH (21:23)
[2019-06-27] MEDS: LACTULOSE 20 GM/30 ML SYRUP UD PO SCH (22:39)
[2019-06-28] VITALS (9 sets, daily range): BP systolic 95–117; BP diastolic 51–59
[2019-06-28] MEDS: oxyCODONE 5MG TAB PO PRN ×5 (01:21→21:51)
[2019-06-28 04:00] LABS: HEMATOCRIT 24.1 % (36.0-47.0); HEMOGLOBIN 7.5 g/dl (12.0-15.5); MEAN CORPUSCULAR HGB CONC 31.1 g/dl (32.0-36.5); MEAN CORPUSCULAR VOLUME 96.4 fl (80.0-96.0); PLATELET COUNT, AUTOMATED 154 10^3/uL (150-450); WHITE BLOOD COUNT 9.4 10^3/uL (4.0-10.0)
[2019-06-28 04:29] LABS: ALBUMIN 1.8 GM/DL (3.2-5.2); BILIRUBIN,TOTAL 0.3 MG/DL (0.2-1.0); CREATININE FOR GFR 4.8 MG/DL (0.55-1.30); GLOMERULAR FILTRATION RATE 9.5 (>39); POTASSIUM SERUM 4.4 MEQ/L (3.5-5.1); TOTAL PROTEIN 5.1 GM/DL (6.4-8.2)
[2019-06-28] MEDS: HEPARIN SOD (PORCINE) 5000 UNITS/ML VIAL SC SCH ×3 (06:01→21:52)
[2019-06-28] MEDS: LEVOTHYROXINE 125MCG TABLET (0.125MG) PO SCH (06:01)
[2019-06-28] MEDS: ALBUTEROL SULFATE 2.5 MG/0.5 ML INH NEB SOLN NEB SCH ×4 (07:31→20:37)
[2019-06-28] MEDS: LEVEMIR (INSULIN DETEMIR) 1 UNITS/0.01ML SC SCH ×2 (08:34→21:52)
[2019-06-28] MEDS: HumaLOG INSULIN (NovoLOG) PER UNIT SC SCH ×4 (08:34→21:00)
[2019-06-28] MEDS: OYSTER SHELL CALCIUM 500 MG TAB PO SCH (08:35)
[2019-06-28] MEDS: LACTULOSE 20 GM/30 ML SYRUP UD PO SCH (08:35)
[2019-06-28] MEDS: MIDODRINE 5 MG TAB PO SCH ×2 (08:35→17:15)
[2019-06-28] MEDS: SILVER SULFADIAZINE 1% CR 50 GM JAR TOP SCH ×2 (08:35→22:29)
[2019-06-28] MEDS: rOPINIRole 2MG TAB PO SCH ×2 (08:35→21:50)
--- NOTE | 2019-06-28 09:03 | IPNPDOC ---
Text Note Date of Service The patient was seen on 06/28/19. NOTE S: patient states feeling better. occasional leg pain on right; states increased fatigue but no العراقي, no N, no V; appetite improved. Had dialysis yesterday; wound debridement yesterday evening. O: Vitals as below General: pleasant, NAD AAOx3 HRRR LCTA no W/R/R Abdomen: soft NT ND NABS Ext: left BKA wound vac intact; right foot callous/ulcers dressed (exam per podiatry) A/P: 1) metabolic encephalopathy -RESOLVED. suspected due to underlying hypote nsion, sepsis and medications (oxycodone/gabapentin and trazadone). 2) Sepsis - RESOLVED. suspect probable left BKA is source, although need to r/o SBP; given rocephin in ED; changed to zyvox/cefepime (hold cymbalta while on zyvox). await UC/BC. IVF sepsis protocol given in ED. continue with prn midodrine and hold antihypertensive meds. Transfer to [facility] with tele 3) Hypotension - IMPROVED. etiology includes possible sepsis vs worsening ESRD/Endstage liver disease; albumin x5 doses given; continue midodrine. no need for further fluid resuscitation. 4) cellulitis left leg - zyvox/cefepime IV, IVF; Dr Estrella consulted; surgical debridement on 06/27/19 5) ESRD with fluid overload state/third spacing although appears intravascularly dry - Dr Grullon consulted ; dialysis on 06/27/19 6) Endstage liver disease - cefepime for SBP prophylaxis. family states fever started PRIOR to paracentesis; hold trazadone. consider starting spironolactone. Ammonia 42 - no need for lactulose at this time, mentation improved . 7) Heart murmur with small pericardial effusion on CT - check blood cultures, check cardiac echo 8) Interstital lung disease - IS when awake, NEBs, consider steroids 9) hypothyroid -stable 10) Diabetes with long-term insulin, hyperglycemia, diabetic nephropathy - while NPO continue with q6h accucheck, levemir and SSI; once diet advanced change to ac/hs 11) right diabetic foot ulcer present on admission - consult podiatry 12) anemia of chronic disease - transfuse 1 unit pRBC CODE STATUS: patient is more alert and able to make her own decisions. she is requesting FULL code and DNR has been rescinded VSHannah, I+O VSHannah I+O Laboratory Tests 06/28/19 03:34 Red Blood Count 2.50 L, Mean Corpuscular Volume 96.4 H, Mean Corpuscular Hemoglobin 30.0, Mean Corpuscular Hemoglobin Concent 31.1 L, Red Cell Distribution Width 19.9 H, Calcium Level 7.0 L, Aspartate Amino Transf (AST/SGOT) 25, Alanine Aminotransferase (ALT/SGPT) 22, Alkaline Phosphatase 215 H, Total Bilirubin 0.3, Total Protein 5.1 L, Albumin 1.8 L Vital Signs Date Time Temp Pulse Resp B/P (MAP) Pulse Ox O2 Delivery O2 Flow Rate FiO2 06/28/19 06:32 21 06/28/19 06:02 72 105/56 96 1.0 06/28/19 04:00 98.2 06/26/19 15:25 Nasal Cannula I&O- Last 24 Hours up to 6 AM 06/28/19 06:00 Intake Total 1000 ml Output Total 2030 ml Balance -1030 ml JEANINE AU DO Jun 28, 2019 08:03
--- NOTE | 2019-06-28 10:09 | IPNPDOC ---
Date Seen The patient was seen on 06/28/19. Progress Note Vascular Surgery Dr Estrella. HPI: The pt is a 68yoF status post Left BKA 04/06/19, S/P Left stump wound debridement 04/21/19, stump debridement and wound vac placement 04/27/[address] Estrella. The patient had been scheduled for Left BKA wound debridement as per Dr Estrella 06/08/19, however the pt had missed several dialysis sessions and labs indicated electrolyte abnormalities (hyperkalemia, hypocalcemia), therefore the pt was admitted as per Hospitalist service, nephrology consulted for HD manage ment. The patient was subsequently discharged 06/12/19. The patient return to the office 06/25/19 for follow-up. She reported she had missed dialysis last Tuesday. She attended Tuesday and Tuesday. She had also apparently missed her appointment for paracentesis and was rescheduled for 06/25/19. She was planning to missing her dialysis session 06/25/19 to have the paracentesis completed. Wound VAC remains in place on the left BKA. She had been rescheduled for left BKA wound debridement 06/29/19. The patient was apparently found unresponsive at home and was brought to the emergency department for evaluation. Vascular surgery is consulted re Lt BKA wound. Pt is s/p debridement of left BKA wound as per Dr Estrella 06/27/19. Pt is s/p debridement of Rt great toe and medial aspect of foot wounds as per Dr Baeza 06/27/19. PAST MEDICAL HISTORY: 1. End-stage renal disease on hemodialysis (MWF) 2. End-stage liver disease on paracentesis every two weeks, recent increase in frequency (last paracentesis: 06/05 and 05/24) 3. Type 2 diabetes, Insulin Dependent 4. Chronic anemia due to chronic kidney disease. 5. Peripheral vascular disease status post left BKA. 6. Coronary artery disease status post stenting. 7. Liver cirrhosis with recurrent ascites 8. HFpEF 9. Hypothyroidism 10. HTN 11. DLP 12. Depression/anxiety PAST SURGICAL HISTORY: 1. Left BKA. 2. Left arteriovascular (AV) fistula. 3. Appendectomy. 4. Hysterectomy. 5. Cataract surgery. PE: GEN: 68yoF, appears chronically ill. HEENT: Normocephalic, atraumatic. Moist mucous membranes. CHEST: Regular rate and rhythm, +S1, +S2 LUNGS: Clear to auscultation bilaterally. No wheezes, rales, or rhonchi. Breathing appears symmetric and easy. ABD: Round, non-tender, mildly distended. EXT: Rt foot wrapped in bandage. Pulses Rt foot obtained with doppler and noted to be monophasic. Lt BKA with bandage intact. Bandage is removed, no active bleeding, granulation tissue noted, small amount of fibrous tissue, measuring approx [id number] on end of BKA stump. Wound vac is applied this AM. NEURO: Alert and oriented x 3. Cranial nerves III-XII are intact. No focal deficits appreciated. Urine culture pending. Blood culture 2 neg. A&P: 1. Left BKA 04/06/19, S/P Left stump wound debridement 04/21/19, stump debridement and wound vac placement 04/27/[address] Estrella. S/P wound debridement 06/27/[address] Estrella. Wound vac is re applied this AM. Plan to continue vac as outpt. Pt has home care as outpt for vac changes. Plan to arrange referral to Dr Osorio for cont'd wound mgmt as outpt. Antibiotics as per primary team. Currently IV linezolid/Cefepime 2. Possible UTI. Management as per primary team. Urine culture pending. 3. Rt Foot wound. Continue mgmt and outpt FU as per Dr Baeza. Wound care as per Dr Baeza. VS, I&O, 24H, Fishbone Vital Signs/I&O Vital Signs Date Time Temp Pulse Resp B/P (MAP) Pulse Ox O2 Delivery O2 Flow Rate FiO2 06/28/19 06:32 21 06/28/19 06:02 72 105/56 96 1.0 06/28/19 04:00 98.2 06/26/19 15:25 Nasal Cannula I&O- Last 24 Hours up to 6 AM 06/28/19 06:00 Intake Total 1000 ml Output Total 2030 ml Balance -1030 ml Laboratory Data 24H LABS Laboratory Tests 2 06/27/19 11:45: Bedside Glucose (Misc Panel) 91 06/27/19 18:05: Bedside Glucose (Misc Panel) 81L 06/27/19 19:06: Bedside Glucose (Misc Panel) 81L 06/27/19 21:28: Bedside Glucose (Misc Panel) 156H 06/28/19 03:34: Nucleated Red Blood Cells % (auto) 0.0, Anion Gap 9, Glomerular Filtration Rate 9.5L, Blood Urea Nitrogen 47H, Creatinine 4.80H, Sodium Level 137, Potassium Level 4.4, Chloride Level 103, Carbon Dioxide Level 25, Calcium Level 7.0L, Aspartate Amino Transf (AST/SGOT) 25, Alanine Aminotransferase (ALT/SGPT) 22, Alkaline Phosphatase 215H, Total Bilirubin 0.3, Total Protein 5.1L, Albumin 1.8L, Albumin/Globulin Ratio 0.55L CBC/BMP Laboratory Tests 06/28/19 03:34 Red Blood Count 2.50 L, Mean Corpuscular Volume 96.4 H, Mean Corpuscular Hemoglobin 30.0, Mean Corpuscular Hemoglobin Concent 31.1 L, Red Cell Distribution Width 19.9 H, Calcium Level 7.0 L, Aspartate Amino Transf (AST/SGOT) 25, Alanine Aminotransferase (ALT/SGPT) 22, Alkaline Phosphatase 215 H, Total Bilirubin 0.3, Total Protein 5.1 L, Albumin 1.8 L Microbiology Microbiology 06/26/19 Blood Culture - Preliminary, Resulted No growth after 24 hours . All specim... 06/26/19 Blood Culture - Preliminary, Resulted No growth after 24 hours . All specim... 06/26/19 Urine Culture, Received Pending Trini Vieira Jun 28, 2019 10:09
[2019-06-28] MEDS ORDERED: HEPARIN 1,000 UNITS/ML 10ML VIAL (FOR RADIOLOGY& DIALYSIS ONLY) IV ONE (11:00)
--- NOTE | 2019-06-28 11:47 | IPN ---
DATE OF VISIT: 06/28/2019 Mrs. Hernandez is seen this morning on her bedside in intensive care unit. She has complained of severe pain in her legs and thighs. She has marked abdominal distension with ascites. She was dialyzed yesterday and we removed 2 liters of fluid. Patient was initially admitted with sepsis and did receive some intravenous (IV) fluids and albumin. Her blood pressure has been now stable. She has an infected left bvubt-gar-[id number] amputation leg stump and an infected wound on her right foot. She also has cellulitis on her right leg and right knee also looks quite painful, red and swollen today. On physical exam, temperature 98.2 degrees Fahrenheit, heart rate 72 per minute and respiratory rate 20 per minute. Blood pressure 105/56 mmHg and oxygen saturation 96% on 1 liter oxygen. Head is atraumatic. She is chronically ill looking and pale. Neck veins are moderately distended. Her heart sounds are regular and without a pericardial friction rub. Lungs with slightly diminished breath sounds at bases. Abdomen is markedly distended with ascites. It is nontender and bowel sounds are present. Extremities have significant edema but no cyanosis or clubbing. Her right leg is still swollen and red and right knee is also quite tender and red. Her left leg stump is covered with dressing and right foot wound is also covered with dressing. Neurologically, she is awake and seems to be at her baseline mentation. Her blood and urine cultures remain negative. Other labs today showed a WBC count 9.4, hemoglobin 7.5 and hematocrit 24.1. Sodium 137, potassium 4.4, CO2 25, BUN 47 and creatinine 4.8. AST 25, ALT 22 and alkaline phos phosphatase 215. Serum ammonia level was 46 yesterday. PROBLEMS: 1. End-stage renal disease. Patient was dialyzed yesterday and 2 liters fluid was removed. She did tolerate her dialysis well. Prior to this on Tuesday she missed her dialysis treatment. We plan to dialyze her again today and will also give her some blood during dialysis. 2. Anemia. She has recurrent anemia with prior history of gastrointestinal (GI) bleed. Patient will be given 2 units of packed red blood cells (RBCs) during dialysis today. 3. Sepsis and infected wounds right leg cellulitis. She has been on antibiotics and is currently afebrile. I have discussed with Dr. Rivero and suggested also consultation for possible right knee infection. 4. Cirrhosis of liver with recurrent ascites. Patient had a paracentesis done just on Tuesday and now she seems to have marked ascites and abdominal distension again. She is probably going to require another paracentesis. 5. Peripheral vascular disease. Patient has generalized vascular disease and has been seen by Dr. Estrella. She probably has vascular insufficiency in her right leg. At present, she is not suitable for any intervention due to ongoing infection. [facility]
--- NOTE | 2019-06-28 16:42 | CR ---
DATE OF CONSULTATION: 06/28/2019 CHIEF COMPLAINT: Right knee pain. HISTORY OF PRESENT ILLNESS: This is a 68-year-old female who is admitted to the hospital on the hospitalist service that was receiving dialysis when being interviewed. A complicated past medical history including, but not limited to hypertension, congestive heart failure (CHF), chronic kidney disease requiring dialysis, left below the knee amputation (BKA), hypothyroidism, gastroesophageal reflux disease (GERD), obstructive sleep apnea (JUAN), direct neuropathy, hyperlipidemia, and diabetes. She is being evaluated for her right knee. She states that a couple weeks ago she has had continued right knee pain after she repeatedly banged the anterior aspect of her right knee against cupboards on her scooter. It is very tender to tough. It is on the anterior aspect of her knee. It is severe in nature. She denies any cuts or drainage or any ecchymosis. She states the pain is made worse with movement and improves with rest. She denies any current fevers. She states she does have decreased sensation to her right foot. The left foot is a BKA that has stocking and glove distribution. She denies any current fevers. REVIEW OF SYSTEMS: A complete 10 system review is conducted and pertinent positives and negative in HPI, all other listed are negative. PAST SURGICAL HISTORY: Including cataracts, bladder catheter placement, appendectomy, fistula placement and left BKA. PAST MEDICAL HISTORY: Hypertension. CHF. CKD requiring dialysis. Diabetes. Hypothyroidism. Hyperlipidemia. Depression. JUAN on BiPAP. ALLERGIES: PREGABALIN and VANCOMYCIN. PHYSICAL EXAMINATION: Patient is resting comfortably in bed receiving dialysis, on nasal cannula, breathing unlabored. Left lower extremity exam: Wound vac in place. BKA. Right lower extremity exam: Knee, entire lower extremity is very edematous, weeping distally over foot. There are sores underneath her Kerlix. She has decreased sensation globally in stocking glove distribution. She has positive tib ant_ and gastroc motor function. With regards to her knee, she has erythema anteriorly overlying the patella, very localized and about 3 cm diameter. She is tender to palpation most significantly over this. However, she has diminished tender to palpation the further away you get from that. Very little palpation posteriorly or in the suprapatellar pouch of the knee joints, more proximally. She has limited range of motion secondary to pain. No effusion appreciated. IMAGES: X-rays of the right knee are reviewed, demonstrating medial compartment osteoarthritis in moderate to severe category. No acute fracture or dislocation. LAB RESULTS: Over the last few days her white count has diminished from 24,000 to 12,000 to 9,000 today. Her erythrocyte sedimentation rate, CRP most recently is 60 and 17.6 and she has been afebrile at 98.4. DIAGNOSIS: At this point, I believe that she does not have septic arthritis of the right knee and has likely more of a prepatellar bursitis from repetitive trauma to her right knee. In this case, I would recommend NSAID for pain control if patient can tolerate with her renal failure. If not, other modes of pain control including rest, ice, elevation and compression. She did undergo an attempted aspiration of the knee joint and were unable to elicit any fluid which is another sign that unlikely to be septic arthritis so the primary team should continue antibiotics and we will monitor her for a day or two to see if she improves at all, otherwise, she can followup in the office if she has any questions or concerns. PROCEDURE NOTES: Diagnosis: Rule out septic arthritis. Procedure: Right knee aspiration. Procedure description: Suprapatellar pouch on the superolateral aspect of the knee was cleansed with alcohol prior to using an 18-gauge needle to attempt to aspirate some fluid, but unable to aspirate any joint fluid, making the likelihood of a septic arthritis low. Will continue to monitor her as she is admitted. [facility]Jan
[2019-06-28] MEDS: LINEZOLID 600 MG in IV 1 EA IV SCH (17:15)
[2019-06-28] MEDS ORDERED: CEFEPIME HCL 1 GM in D5W 50 ML IV SCH (21:00)
[2019-06-28] MEDS: CEFEPIME HCL 1 GM in D5W MINI-BAG PLUS 50 ML IV SCH (21:52)
[2019-06-28] MEDS: SIMVASTATIN 20 MG TAB PO SCH (21:52)
[2019-06-28] MEDS: FAMOTIDINE IV BAG 20 MG in IV 1 EA IV SCH (22:36)
[2019-06-29] MEDS ORDERED: MORPHINE 4 MG/ML 1ML VIAL/SYRINGE (J2270) IV ONE (00:15)
[2019-06-29] MEDS: oxyCODONE 5MG TAB PO PRN ×5 (04:35→23:32)
[2019-06-29] MEDS: LEVOTHYROXINE 125MCG TABLET (0.125MG) PO SCH (05:40)
[2019-06-29] MEDS: HEPARIN SOD (PORCINE) 5000 UNITS/ML VIAL SC SCH ×3 (05:46→22:32)
[2019-06-29 05:47] LABS: HEMATOCRIT 32.6 % (36.0-47.0); MEAN CORPUSCULAR HEMOGLOBIN 29.4 pg (27.0-33.0); MEAN CORPUSCULAR HGB CONC 30.7 g/dl (32.0-36.5); MEAN CORPUSCULAR VOLUME 95.9 fl (80.0-96.0); PLATELET COUNT, AUTOMATED 146 10^3/uL (150-450); WHITE BLOOD COUNT 9.6 10^3/uL (4.0-10.0)
[2019-06-29 06:00] VITALS: BP 140/79
[2019-06-29 06:17] LABS: ALBUMIN 1.9 GM/DL (3.2-5.2); BILIRUBIN,TOTAL 0.5 MG/DL (0.2-1.0); CALCIUM LEVEL 7.3 MG/DL (8.8-10.2); CREATININE FOR GFR 3.94 MG/DL (0.55-1.30); POTASSIUM SERUM 4.3 MEQ/L (3.5-5.1); TOTAL PROTEIN 5.6 GM/DL (6.4-8.2)
[2019-06-29] MEDS: ALBUTEROL SULFATE 2.5 MG/0.5 ML INH NEB SOLN NEB SCH ×4 (07:09→20:01)
[2019-06-29] MEDS: HumaLOG INSULIN (NovoLOG) PER UNIT SC SCH ×4 (07:30→21:00)
[2019-06-29] MEDS: rOPINIRole 2MG TAB PO SCH ×2 (08:57→21:00)
[2019-06-29] MEDS: LACTULOSE 20 GM/30 ML SYRUP UD PO SCH (08:58)
[2019-06-29] MEDS: MIDODRINE 5 MG TAB PO SCH ×2 (08:58→16:13)
[2019-06-29] MEDS: OYSTER SHELL CALCIUM 500 MG TAB PO SCH (08:58)
[2019-06-29] MEDS: SILVER SULFADIAZINE 1% CR 50 GM JAR TOP SCH ×2 (09:00→21:02)
--- NOTE | 2019-06-29 09:48 | IPNPDOC ---
Date Seen The patient was seen on 06/29/19. Progress Note Vascular Surgery Dr Estrella. HPI: The pt is a 68yoF status post Left BKA 04/06/19, S/P Left stump wound debridement 04/21/19, stump debridement and wound vac placement 04/27/[address] Estrella. Vascular surgery is consulted re Lt BKA wound. Pt is s/p debridement of left BKA wound as per Dr Estrella 06/27/19. Pt is s/p debridement of Rt great toe and medial aspect of foot wounds as per Dr Baeza 06/27/19. PAST MEDICAL HISTORY: 1. End-stage renal disease on hemodialysis (MWF) 2. End-stage liver disease with paracentesis weekly 3. Type 2 diabetes, Insulin Dependent 4. Chronic anemia due to chronic kidney disease. 5. Peripheral vascular disease status post left BKA. 6. Coronary artery disease status post stenting. 7. Liver cirrhosis with recurrent ascites 8. HFpEF 9. Hypothyroidism 10. HTN 11. DLP 12. Depression/anxiety PAST SURGICAL HISTORY: 1. Left BKA. 2. Left arteriovascular (AV) fistula. 3. Appendectomy. 4. Hysterectomy. 5. Cataract surgery. PE: GEN: 68yoF, appears chronically ill. HEENT: Normocephalic, atraumatic. Moist mucous membranes. CHEST: Regular rate and rhythm, +S1, +S2 LUNGS: Clear to auscultation bilaterally. No wheezes, rales, or rhonchi. Breathing appears symmetric and easy. ABD: Round, non-tender, mildly distended. EXT: Rt foot wrapped in bandage. Pulses Rt foot obtained with doppler and noted to be monophasic. Lt BKA with Wound vac intact. NEURO: Alert and oriented x 3. Cranial nerves III-XII are intact. No focal deficits appreciated. Urine culture neg. Blood culture 2 neg. A&P: 1. Left BKA 04/06/19, S/P Left stump wound debridement 04/21/19, stump debridement and wound vac placement 04/27/[address] Estrella. S/P wound debridement 06/27/[address] Estrella. Afebrile. WBC 9.[address]. Plan to continue vac as outpt. Pt has home care as outpt for vac changes. Plan to arrange referral to Dr Osorio for cont'd wound mgmt as outpt. Antibiotics as per primary team. Currently IV linezolid/Cefepime 2. Rt Foot wound. Continue mgmt and outpt FU as per Dr Baeza. Wound care as per Dr Baeza. VS, I&O, 24H, Fishbone Vital Signs/I&O Vital Signs Date Time Temp Pulse Resp B/P (MAP) Pulse Ox O2 Delivery O2 Flow Rate FiO2 06/29/19 08:58 18 06/29/19 06:00 97.8 84 140/79 (99) 96 06/28/19 06:02 1.0 06/26/19 15:25 Nasal Cannula I&O- Last 24 Hours up to 6 AM 06/29/19 06:00 Intake Total 950 ml Output Total 2000 ml Balance -1050 ml Laboratory Data 24H LABS Laboratory Tests 2 06/28/19 11:33: Bedside Glucose (Misc Panel) 231H 06/28/19 21:29: Bedside Glucose (Misc Panel) 179H 06/29/19 05:31: Nucleated Red Blood Cells % (auto) 0.0, Anion Gap 8, Glomerular Filtration Rate 12.0L, Blood Urea Nitrogen 36H, Creatinine 3.94H, Sodium Level 138, Potassium Level 4.3, Chloride Level 104, Carbon Dioxide Level 26, Calcium Level 7.3L, Aspartate Amino Transf (AST/SGOT) 35, Alanine Aminotransferase (ALT/SGPT) 28, Alkaline Phosphatase 345H, Total Bilirubin 0.5#, Total Protein 5.6L, Albumin 1.9L, Albumin/Globulin Ratio 0.51L CBC/BMP Laboratory Tests 06/29/19 05:31 Red Blood Count 3.40 L, Mean Corpuscular Volume 95.9, Mean Corpuscular Hemoglobin 29.4, Mean Corpuscular Hemoglobin Concent 30.7 L, Red Cell Distribution Width 20.4 H, Calcium Level 7.3 L, Aspartate Amino Transf (AST/SGOT) 35, Alanine Aminotransferase (ALT/SGPT) 28, Alkaline Phosphatase 345 H, Total Bilirubin 0.5 #, Total Protein 5.6 L, Albumin 1.9 L Microbiology Microbiology 06/26/19 Blood Culture - Preliminary, Resulted No Growth after 48 hours. All Specime... 06/26/19 Blood Culture - Preliminary, Resulted No Growth after 48 hours. All Specime... 06/26/19 Urine Culture - Final, Complete Trini Vieira Jun 29, 2019 09:48
[2019-06-29] MEDS: LEVEMIR (INSULIN DETEMIR) 1 UNITS/0.01ML SC SCH ×2 (09:55→21:00)
[2019-06-29] MEDS ORDERED: HYDROMORPHONE HCL 0.5 MG/ 0.5 ML SYRINGE (J1170 PER 1) IV PRN (13:00)
[2019-06-29] MEDS ORDERED: KETOROLAC 30 MG/ML VIAL (J1885) IV ONE (13:30)
[2019-06-29 14:00] VITALS: BP 119/57
--- NOTE | 2019-06-29 16:05 | REP ---
Ultrasound-guided paracentesis The procedure was performed by ANTONIO Sierra, under the direct supervision of Dr. Martinez. The risks and benefits of the procedure were explained to the patient and informed consent was obtained both verbally and written. Directly prior to the start of the procedure, a formal timeout was completed in the procedure room. Under ultrasound guidance, the largest pocket of fluid in the left flank was localized and skin was marked. The skin was then prepped and draped in a sterile fashion. 10 ml of 1% lidocaine was used as a local anesthetic. Using ultrasound guidance, an 8-[place] multi side-hole catheter was inserted using trocar technique. 7,000 mL of clear yellow colored fluid was withdrawn and discarded. The patient tolerated the procedure well and there were no immediate complications. After the appropriate monitored convalescence the patient was discharged from the department. Reviewed by ANTONIO Song 06/29/2019 03:55 P Electronically Signed by Vel Martinez MD 06/29/2019 03:56 P
[2019-06-29] MEDS: LINEZOLID 600 MG in IV 1 EA IV SCH (16:13)
--- NOTE | 2019-06-29 17:43 | IPN ---
DATE: 06/29/2019 Mrs. Hernandez is seen this morning on her bedside. She is feeling better; however, her abdominal distension has progressed. She denies any fever or chills. She has no nausea or vomiting. She underwent hemodialysis yesterday, which she tolerated well. PHYSICAL EXAMINATION: Temperature 97 degrees Fahrenheit, heart rate 72 per minute, respiratory rate 18 per minute, blood pressure 119/57 mm of mercury, and oxygen saturation 94%. Her head is atraumatic. She is chronically ill looking but not in any acute distress at present. Her head is atraumatic. Neck is supple, and jugular venous distention (JVD) is mildly elevated. Heart sounds are regular and lungs sound clear to auscultation. Abdomen is markedly distended with large amount of ascites and is nontender. Bowel sounds are present. Extremities have no cyanosis or clubbing. She has a left [id number]-[id number]-pdcy amputation. Her right leg is swollen and red. There is a area of fluctuation and redness on her right knee. Right foot wound is covered with a dressing. Today's labs show WBC count 9.6, hemoglobin 10.0, hematocrit 32.6, platelets 146. Sodium 138, potassium 4.3, CO2 of 26, BUN 36, and creatinine 3.94. Glucose 150 and calcium 7.3. PROBLEMS: 1. End-stage renal disease. The patient was dialyzed yesterday, and we will plan to dialyze her again tomorrow. 2. History of cirrhosis with recurrent ascites. The patient has massive ascites and will benefit from another paracentesis today. We are going to hold off dialysis so she can have paracentesis today. 3. Anemia. Her anemia is improved and stable. She did have 2 units of packed red blood cells (RBCs) transfused during dialysis yesterday. 4. Sepsis. She is currently afebrile and her leukocytosis has improved. She remains on broad-spectrum antibiotics, including cefepime and Zyvox. 5. Peripheral vascular disease, status post left [id number] amputation. The patient has been doing poorly and also has wound on her right foot. There is cellulitis on right leg, and there is also an area of fluctuation on her right knee. I am concerned about possibility of infection. At present, she is afebrile on antibiotics, however, will probably need a drainage procedure.
--- NOTE | 2019-06-29 17:46 | IPNPDOC ---
Text Note Date of Service The patient was seen on 06/29/19. NOTE S: patient continues with increased right knee pain. Seen by ortho. She retu rned from paracentesis of 7000 ml. She state no N, no V, no Abdomen pain; O: Vitals as below General: moderate distress from pain, AAOx3 A/P: 1) right knee pain with prepatellar bursitis - no septic joint. ortho consulted; one time dose toradol, ice, elevate and change pain meds to dilaudid IV (o xycodone not effective). 2) cellulitis left leg - zyvox/cefepime IV, IVF; Dr Estrella consulted; surgical debridement on 06/27/19; unknown if cultures sent - not located in lab 3) ESRD with fluid overload state/third spacing although appears intravascularly dry - Dr Grullon consulted ; dialysis on 06/27/19, 06/28 4) Endstage liver disease - cefepime for SBP prophylaxis. family states fever started PRIOR to paracentesis; hold trazadone. on spironolactone. Ammonia 42 - no need for lactulose at this time, mentation improved . 06/29/19 paracentesis performed 7 liter removed. 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 no cultures sent. Dressing changes per podiatry 9) anemia of chronic disease - transfuse 2 unit pRBC on 06/28/19 10) metabolic encephalopathy -RESOLVED. suspected due to underlying hypotension, sepsis and medications (oxycodone/gabapentin and trazadone). 11) Sepsis - RESOLVED. suspect probable left BKA is source, although need to r/o SBP; given rocephin in ED; changed to zyvox/cefepime (hold cymbalta while on zyvox). await UC/BC. IVF sepsis protocol given in ED. continue with prn midodrine and hold antihypertensive meds. Transfer to [facility] with tele 12) Hypotension - IMPROVED. etiology includes possible sepsis vs worsening ESRD/Endstage liver disease; albumin x5 doses given; continue midodrine. no need for further fluid resuscitation. hold parameters written for midodrine 13) Heart murmur with small pericardial effusion on CT - check blood cultures, minimal pericardial effusion on echo. - RESOLVED VS,Fishbone, I+O VS, Fishbone, I+O Laboratory Tests 06/29/19 05:31 Red Blood Count 3.40 L, Mean Corpuscular Volume 95.9, Mean Corpuscular Hemoglobin 29.4, Mean Corpuscular Hemoglobin Concent 30.7 L, Red Cell Distribution Width 20.4 H, Calcium Level 7.3 L, Aspartate Amino Transf (AST/SGOT) 35, Alanine Aminotransferase (ALT/SGPT) 28, Alkaline Phosphatase 345 H, Total Bilirubin 0.5 #, Total Protein 5.6 L, Albumin 1.9 L Vital Signs Date Time Temp Pulse Resp B/P (MAP) Pulse Ox O2 Delivery O2 Flow Rate FiO2 06/29/19 12:37 74 16 94 06/29/19 06:00 97.8 140/79 (99) 06/28/19 06:02 1.0 06/26/19 15:25 Nasal Cannula I&O- Last 24 Hours up to 6 AM 06/29/19 06:00 Intake Total 950 ml Output Total 2000 ml Balance -1050 ml JEANINE AU DO Jun 29, 2019 13:01
[2019-06-29] MEDS: CEFEPIME HCL 1 GM in D5W MINI-BAG PLUS 50 ML IV SCH (21:00)
[2019-06-29] MEDS: SIMVASTATIN 20 MG TAB PO SCH (21:00)
[2019-06-29 22:00] VITALS: BP 129/62
[2019-06-29] MEDS: FAMOTIDINE IV BAG 20 MG in IV 1 EA IV SCH ×2 (22:00→22:35)
[2019-06-30 06:00] VITALS: BP 125/64
[2019-06-30] MEDS: LEVOTHYROXINE 125MCG TABLET (0.125MG) PO SCH (06:03)
[2019-06-30] MEDS: HEPARIN SOD (PORCINE) 5000 UNITS/ML VIAL SC SCH ×3 (06:03→21:52)
[2019-06-30 06:48] LABS: HEMATOCRIT 35.6 % (36.0-47.0); HEMOGLOBIN 10.9 g/dl (12.0-15.5); MEAN CORPUSCULAR HEMOGLOBIN 28.6 pg (27.0-33.0); MEAN CORPUSCULAR HGB CONC 30.6 g/dl (32.0-36.5); MEAN CORPUSCULAR VOLUME 93.4 fl (80.0-96.0); PLATELET COUNT, AUTOMATED 169 10^3/uL (150-450); RED BLOOD COUNT 3.81 10^6/uL (4.00-5.40); WHITE BLOOD COUNT 10.6 10^3/uL (4.0-10.0)
[2019-06-30 07:09] LABS: ALBUMIN 1.8 GM/DL (3.2-5.2); BILIRUBIN,TOTAL 0.4 MG/DL (0.2-1.0); CALCIUM LEVEL 7.3 MG/DL (8.8-10.2); CREATININE FOR GFR 4.7 MG/DL (0.55-1.30); GLOMERULAR FILTRATION RATE 9.8 (>39); POTASSIUM SERUM 4.3 MEQ/L (3.5-5.1); TOTAL PROTEIN 5.6 GM/DL (6.4-8.2)
[2019-06-30] MEDS: ALBUTEROL SULFATE 2.5 MG/0.5 ML INH NEB SOLN NEB SCH ×4 (07:18→21:02)
[2019-06-30] MEDS: LEVEMIR (INSULIN DETEMIR) 1 UNITS/0.01ML SC SCH ×2 (08:28→21:51)
[2019-06-30] MEDS: MIDODRINE 5 MG TAB PO SCH ×2 (08:28→17:04)
[2019-06-30] MEDS: OYSTER SHELL CALCIUM 500 MG TAB PO SCH (08:28)
[2019-06-30] MEDS: rOPINIRole 2MG TAB PO SCH ×2 (08:28→21:52)
[2019-06-30] MEDS: SILVER SULFADIAZINE 1% CR 50 GM JAR TOP SCH ×2 (08:29→21:53)
[2019-06-30] MEDS: HumaLOG INSULIN (NovoLOG) PER UNIT SC SCH ×4 (08:29→21:00)
[2019-06-30] MEDS: oxyCODONE 5MG TAB PO PRN ×3 (08:30→18:39)
[2019-06-30] MEDS ORDERED: DARBEPOETIN 100 MCG/0.5 ML *DIALYSIS* SYRINGE (J0882) IV SCH (10:15)
[2019-06-30 11:11] LABS: PERCENT SATURATION 24.1 % (13.2-45.0)
[2019-06-30] MEDS ORDERED: HEPARIN 1,000 UNITS/ML 10ML VIAL (FOR RADIOLOGY& DIALYSIS ONLY) IV ONE (11:30)
[2019-06-30] MEDS ORDERED: diphenhydrAMINE INJ 50MG/ML VIAL (J1200) IM STA (13:56)
[2019-06-30 14:00] VITALS: BP 152/75
[2019-06-30] MEDS: LINEZOLID 600MG TABLET (ZYVOX) PO SCH ×2 (14:10→21:52)
[2019-06-30] MEDS ORDERED: IMIPRAMINE 25 MG TAB PO ONE (16:00)
[2019-06-30] MEDS: LACTULOSE 20 GM/30 ML SYRUP UD PO SCH (17:02)
[2019-06-30] MEDS: FAMOTIDINE 20 MG TAB PO SCH (17:09)
--- NOTE | 2019-06-30 17:25 | IPNPDOC ---
Text Note Date of Service The patient was seen on 06/30/19. NOTE S: states she had a rough night last night and couldn't sleep. Lost IV access today. Having 1-2 stools from lactulose and states wants to stop medication because of stools. At 1345 called by staff to evaluate patient - patient with increased full body itching. no signs of rash. possible uremic or hepatic pruritis. give 1 dose imipriamine,benadryl and change IV pepcid to PO (for H2 jeffrey). Patient lost IV access this AM and did not recieve pepcid or antibiotics. O: Vitals as below General: moderate distress, crying, scratching at arms.legs,flank and abdomen (pateint had been calm and falling asleep on earlier morning exam). HRRR LCTA anteriorly Abdomen : soft NT ND NABS Skin: no rash seen to areas of pruritis; right lower leg with venous stasis changes; left wound vac to be changed by nursing today and they have been asked to page me so that I can evaluate left BKA skin. A/P: 1) Pruritis - suspect combination of uremic pruritis, hepatic pruritis -- no signs of allergic reaction. treat symptomatically with Benadryl, imipramine and pepcid 2) right knee pain with prepatellar bursitis - no septic joint. ortho consulted; no culture available on fluid from aspiration of knee by ortho. 3) cellulitis left leg - zyvox/cefepime IV, IVF; Dr Estrella consulted; surgical debridement on 06/27/19; unknown if cultures sent - not located in lab; change IV zyvox to po. continue with renal dosing of cefepime. Awaiting IV access. Day 4 antibiotics 4) ESRD- nephrology consulted ; dialysis on 06/27/19, 06/28 and 06/30/19 5) Endstage liver disease - cefepime for SBP prophylaxis. family states fever started PRIOR to paracentesis; hold trazadone. on spironolactone. Ammonia 42 - no need for lactulose at this time, mentation improved . 06/29/19 paracentesis performed 7 liter removed. 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 no cultures sent. Dressing changes per podiatry 9) anemia of chronic disease - transfuse 2 unit pRBC on 06/28/19 10) metabolic encephalopathy -RESOLVED. suspected due to underlying hypotension, sepsis and medications (oxycodone/gabapentin and trazadone). 11) Sepsis - RESOLVED. suspect probable left BKA is source, although need to r/o SBP; given rocephin in ED; changed to zyvox/cefepime (hold cymbalta while on zyvox). await /. IVF sepsis protocol given in ED. continue with prn midodrine and hold antihypertensive meds. Transfer to [facility] [place] with tele 12) Hypotension - IMPROVED. etiology includes possible sepsis vs worsening ESRD/Endstage liver disease; albumin x5 doses given; continue midodrine. no need for further fluid resuscitation. hold parameters written for midodrine 13) Heart murmur with small pericardial effusion on CT - check blood cultures, minimal pericardial effusion on echo. - RESOLVED 14) hypothyroid -stable VS,Fishbone, I+O VS, Fishbone, I+O Laboratory Tests 06/30/19 05:37 Red Blood Count 3.81 L, Mean Corpuscular Volume 93.4, Mean Corpuscular Hemoglobin 28.6, Mean Corpuscular Hemoglobin Concent 30.6 L, Red Cell Distribution Width 19.9 H, Calcium Level 7.3 L, Aspartate Amino Transf (AST/SGOT) 32, Alanine Aminotransferase (ALT/SGPT) 32, Alkaline Phosphatase 382 H, Total Bilirubin 0.4, Total Protein 5.6 L, Albumin 1.8 L Vital Signs Date Time Temp Pulse Resp B/P (MAP) Pulse Ox O2 Delivery O2 Flow Rate FiO2 06/30/19 08:30 18 06/30/19 06:00 98.2 74 125/64 (84) 98 06/28/19 06:02 1.0 06/26/19 15:25 Nasal Cannula I&O- Last 24 Hours up to 6 AM 06/30/19 06:00 Intake Total 860 ml Balance 860 ml JEANINE AU DO Jun 30, 2019 12:06
[2019-06-30] MEDS ORDERED: LevoFLOXacin 500 MG TABLET PO ONE (19:45)
[2019-06-30] MEDS ORDERED: CEFDINIR 300 MG CAP (OMNICEF) PO ONE (19:45)
[2019-06-30] MEDS: SIMVASTATIN 20 MG TAB PO SCH (21:52)
[2019-06-30 22:00] VITALS: BP 112/64
[2019-07-01] MEDS: ONDANSETRON 4 MG ORAL DISINTEGRATING TAB (Q0162 PER 1MG) PO PRN (04:31)
[2019-07-01 06:00] VITALS: BP 119/66
[2019-07-01] MEDS: HEPARIN SOD (PORCINE) 5000 UNITS/ML VIAL SC SCH ×3 (06:13→22:46)
[2019-07-01] MEDS: LEVOTHYROXINE 125MCG TABLET (0.125MG) PO SCH (06:13)
[2019-07-01 06:37] LABS: HEMATOCRIT 34.7 % (36.0-47.0); HEMOGLOBIN 10.5 g/dl (12.0-15.5); MEAN CORPUSCULAR HEMOGLOBIN 28.4 pg (27.0-33.0); MEAN CORPUSCULAR HGB CONC 30.3 g/dl (32.0-36.5); MEAN CORPUSCULAR VOLUME 93.8 fl (80.0-96.0); PLATELET COUNT, AUTOMATED 161 10^3/uL (150-450); WHITE BLOOD COUNT 10.4 10^3/uL (4.0-10.0)
[2019-07-01 07:09] LABS: ALBUMIN 1.9 GM/DL (3.2-5.2); BILIRUBIN,TOTAL 0.5 MG/DL (0.2-1.0); CALCIUM LEVEL 7.5 MG/DL (8.8-10.2); CREATININE FOR GFR 3.57 MG/DL (0.55-1.30); GLOMERULAR FILTRATION RATE 13.4 (>39); POTASSIUM SERUM 4.3 MEQ/L (3.5-5.1); TOTAL PROTEIN 5.6 GM/DL (6.4-8.2)
[2019-07-01] MEDS: ALBUTEROL SULFATE 2.5 MG/0.5 ML INH NEB SOLN NEB SCH ×4 (07:39→20:00)
[2019-07-01] MEDS ORDERED: CEFEPIME HCL 1 GM in D5W MINI-BAG PLUS 50 ML IV SCH (09:00)
[2019-07-01] MEDS: LACTULOSE 20 GM/30 ML SYRUP UD PO SCH (09:00)
[2019-07-01] MEDS: MIDODRINE 5 MG TAB PO SCH ×2 (09:02→15:28)
[2019-07-01] MEDS: rOPINIRole 2MG TAB PO SCH ×2 (09:03→22:44)
[2019-07-01] MEDS: FAMOTIDINE 20 MG TAB PO SCH (09:03)
[2019-07-01] MEDS: OYSTER SHELL CALCIUM 500 MG TAB PO SCH (09:03)
[2019-07-01] MEDS: LINEZOLID 600MG TABLET (ZYVOX) PO SCH ×2 (09:03→22:45)
[2019-07-01] MEDS: HumaLOG INSULIN (NovoLOG) PER UNIT SC SCH ×4 (09:05→22:45)
[2019-07-01] MEDS: oxyCODONE 5MG TAB PO PRN ×2 (09:05→15:29)
[2019-07-01] MEDS: LEVEMIR (INSULIN DETEMIR) 1 UNITS/0.01ML SC SCH ×2 (09:06→22:45)
[2019-07-01] MEDS: SILVER SULFADIAZINE 1% CR 50 GM JAR TOP SCH ×2 (09:07→22:46)
--- NOTE | 2019-07-01 10:18 | IPN ---
DATE: 06/30/2019 SUBJECTIVE: The patient was seen and examined at the bedside today morning during hemodialysis procedure. She is tolerating the hemodialysis procedure well. Blood pressures are soft, so IV albumin has been ordered. She got the paracentesis done yesterday, 7 liters of fluid was removed. OBJECTIVE: VITAL SIGNS: Temperature is 98.2 degrees Fahrenheit, blood pressure 125/64, pulse is 74, respiratory of 15, saturating 98% on room air. INTAKE AND OUTPUT: There is no urine output recorded. Paracentesis yesterday was 7 liters. Weight on the bed scale is not available. PHYSICAL EXAMINATION: GENERAL: The patient is awake, alert, oriented times three, laying in bed getting hemodialysis done. HEAD AND NECK EXAM: Extraocular muscles intact. Pupils equally round and reactive to light. Mucous membranes are moist. Neck is supple. There is no jugular venous distention (JVD). CARDIOVASCULAR: S1, S2. 2+ edema of the right lower extremity. RESPIRATORY: Chest is clear to auscultation bilaterally. Bilateral equal air entry. No rales or rhonchi. ABDOMEN: Soft, obese, positive abdominal wall edema. MUSCULOSKELETAL: The patient has left below-knee amputation with wound VAC. The right leg has 2+ edema and has ulcers with dressings. WIDE AREA NETWORK ADMINISTRATOR: No focal deficit. Power is 5/5 in bilateral upper extremities. AV ACCESS: The patient has a left forearm AV fistula which is being used for dialysis. LAB REVIEW: CBC showed WBC of 10.6, hemoglobin 10.9, platelets of 169. BMP showed sodium 138, potassium 4.3, BUN 50, creatinine is 4.7, iron is 41, transferrin saturation is 24, ferritin is 1000, albumin is 1.8. CURRENT INPATIENT MEDICATIONS: The patient's medications were all reviewed by me. IV Zyvox has been stopped. The patient is currently on cefepime 1 gram IV q. 24. She is also on Levaquin 500 mg p.o. x1 dose was given and she is on Zyvox 600 mg p.o. twice a day. No other change in the medications today as compared with yesterday. ASSESSMENT/PLAN: 1. End-stage renal disease on hemodialysis. The patient is being dialyzed today according to her regular schedule, 2 liters of fluid is being removed. Her next hemodialysis will be on Tuesday. 2. Cirrhosis and recurrent ascites. The patient got a tap done yesterday, 7 liters of fluid was removed. Rest of the fluid management is with hemodialysis. 3. Anemia secondary to end-stage renal disease. The patient got 2 units of PRBC transfusion as well. She is also getting Aranesp with dialysis. Hemoglobin level has improved within the acceptable range. 4. Sepsis. Patient is currently on Zyvox and Levaquin oral. She continues to be on IV cefepime. The rest of the management is as per primary team.
[2019-07-01 14:00] VITALS: BP 133/63
--- NOTE | 2019-07-01 14:05 | IPNPDOC ---
Text Note Date of Service The patient was seen on 07/01/19. NOTE S: patient had restless night and "couldnt keep still". She still does not h ave IV access despite 5 attempts and last night was give levaquinx1 dose and omnicef x 1 dose in placed of cefepime. She is on oral zyvox. She states "im just not myself" and is refusing lactulose. She states severe right knee pain, tender with covers touching knee. refusing ice. declined PT today because of pain O: Vitals as below General: worried,anxiuos appearing, poor eye contact, AAOx3 HRRR LCTA Ext: right knee with mild swelling, not hot to touch; left BKA with wound vac intact (left BKA stump evaluated yesterday during dressing change - bone exposed, some granualtion tissue, muscle and fatty tissue seen along denuded stump. A/P: Restless night, anxiety, "just not myself" - may be due to stopping cymbalta while on zyvox. Pruritis - resolved. unclear if "restless movement" due to benadryl. right knee pain with prepatellar bursitis - no septic joint. ortho consulted; no culture available on fluid from aspiration of knee by ortho. Patient states unable to move right leg/knee because too painful. check MRI knee to r/o ligment injury. trial lidocaine patch cellulitis left leg - zyvox/cefepime IV, IVF; Dr Estrella consulted; surgical debridement on 06/27/19; unknown if cultures sent - not located in lab; change IV zyvox to po. No IV access for cefepime - given 1 dose levaquin,omnicef last night. Will order PICC and then continue with cefepime. Day 5 antibitoics for sepsis from cellultitis left leg/stump ESRD- nephrology consulted ; dialysis on 06/27/19, 06/28 and 06/30/19 Endstage liver disease - cefepime for SBP prophylaxis. family states fever started PRIOR to paracentesis; hold trazadone. on spironolactone. Ammonia 42 - no need for lactulose at this time, mentation improved . 06/29/19 paracentesis performed 7 liter removed. Interstital lung disease - IS , NEBs, Diabetes with care home insulin, hyperglycemia, diabetic nephropathy - levemir, SSI; BS stable between 150-225 right diabetic foot ulcer present on admission - consult podiatry, debrided. no cultures sent. Dressing changes per podiatry anemia of chronic disease - transfuse 2 unit pRBC on 06/28/19 metabolic encephalopathy -RESOLVED. suspected due to underlying hypotension, sepsis and medications (oxycodone/gabapentin and trazadone). Sepsis - RESOLVED. suspect probable left BKA is source, although need to r/o SBP; given rocephin in ED; changed to zyvox/cefepime (hold cymbalta while on zyvox). await UC/. IVF sepsis protocol given in ED. continue with prn midodrine and hold antihypertensive meds. Transfer to [facility] with tele Hypotension - IMPROVED. etiology includes possible sepsis vs worsening ESRD/Endstage liver disease; albumin x5 doses given; continue midodrine. no need for further fluid resuscitation. hold parameters written for midodrine Heart murmur with small pericardial effusion on CT - check blood cultures, minimal pericardial effusion on echo. - RESOLVED hypothyroid -stable VS,Fishbone, I+O VS, Fishbone, I+O Laboratory Tests 07/01/19 05:49 Red Blood Count 3.70 L, Mean Corpuscular Volume 93.8, Mean Corpuscular Hemoglobin 28.4, Mean Corpuscular Hemoglobin Concent 30.3 L, Red Cell Distribution Width 19.8 H, Calcium Level 7.5 L, Aspartate Amino Transf (AST/SGOT) 23, Alanine Aminotransferase (ALT/SGPT) 24, Alkaline Phosphatase 321 H, Total Bilirubin 0.5, Total Protein 5.6 L, Albumin 1.9 L Vital Signs Date Time Temp Pulse Resp B/P (MAP) Pulse Ox O2 Delivery O2 Flow Rate FiO2 07/01/19 09:35 16 07/01/19 06:00 97.6 69 119/66 (83) 99 06/28/19 06:02 1.0 06/26/19 15:25 Nasal Cannula I&O- Last 24 Hours up to 6 AM 07/01/19 06:00 Intake Total 1130 ml Output Total 2030 ml Balance -900 ml JEANINE AU DO Jul 01, 2019 14:05
[2019-07-01] MEDS: LIDOCAINE 5% (LIDODERM) PATCH TD SCH (15:29)
[2019-07-01 22:00] VITALS: BP 138/66
[2019-07-01] MEDS: GABAPENTIN 100 MG CAP PO SCH (22:44)
[2019-07-01] MEDS: SIMVASTATIN 20 MG TAB PO SCH (22:44)
[2019-07-01] MEDS: traZODone 100 MG TAB PO SCH (22:44)
[2019-07-01] MEDS ORDERED: ACETAMINOPHEN TAB 650MG DOSE (2X325MG) PO ONE (22:45)
[2019-07-01] MEDS: **NOTE PATIENT COMMENT** MISC XX SCH (22:46)
[2019-07-02 05:33] LABS: HEMATOCRIT 36.3 % (36.0-47.0); HEMOGLOBIN 10.9 g/dl (12.0-15.5); MEAN CORPUSCULAR VOLUME 96.5 fl (80.0-96.0); PLATELET COUNT, AUTOMATED 157 10^3/uL (150-450); RED BLOOD COUNT 3.76 10^6/uL (4.00-5.40); WHITE BLOOD COUNT 9.6 10^3/uL (4.0-10.0)
[2019-07-02 06:00] VITALS: BP 99/52
[2019-07-02 06:00] LABS: ALBUMIN 1.7 GM/DL (3.2-5.2); BILIRUBIN,TOTAL 0.4 MG/DL (0.2-1.0); CALCIUM LEVEL 7.4 MG/DL (8.8-10.2); CREATININE FOR GFR 4.69 MG/DL (0.55-1.30); GLOMERULAR FILTRATION RATE 9.8 (>39); POTASSIUM SERUM 4.6 MEQ/L (3.5-5.1); TOTAL PROTEIN 5.2 GM/DL (6.4-8.2)
[2019-07-02] MEDS: LEVOTHYROXINE 125MCG TABLET (0.125MG) PO SCH (06:43)
[2019-07-02] MEDS: HEPARIN SOD (PORCINE) 5000 UNITS/ML VIAL SC SCH ×3 (06:43→22:26)
[2019-07-02] MEDS: MIDODRINE 5 MG TAB PO SCH ×2 (06:43→19:04)
[2019-07-02] MEDS: FAMOTIDINE 20 MG TAB PO SCH (06:44)
[2019-07-02] MEDS: OYSTER SHELL CALCIUM 500 MG TAB PO SCH (06:44)
[2019-07-02] MEDS: rOPINIRole 2MG TAB PO SCH ×2 (06:45→22:25)
[2019-07-02] MEDS: LIDOCAINE 5% (LIDODERM) PATCH TD SCH (06:45)
[2019-07-02] MEDS: LINEZOLID 600MG TABLET (ZYVOX) PO SCH ×2 (06:45→22:25)
[2019-07-02] MEDS: ALBUTEROL SULFATE 2.5 MG/0.5 ML INH NEB SOLN NEB SCH ×3 (07:34→20:00)
[2019-07-02] MEDS ORDERED: CEFEPIME HCL 2 GM in D5W MINI-BAG PLUS 50 ML IV SCH (08:00)
[2019-07-02] MEDS: oxyCODONE 5MG TAB PO PRN ×2 (09:00→19:01)
[2019-07-02] MEDS: HumaLOG INSULIN (NovoLOG) PER UNIT SC SCH ×4 (09:00→22:25)
--- NOTE | 2019-07-02 09:11 | REP ---
MRI RIGHT KNEE: TECHNIQUE: Axial proton density fat saturation, sagittal proton density T2 STIR, water excitation, coronal proton density, proton density fat saturation. There is a complex tear of the posterior horn of the medial meniscus. The latera meniscus is intact. The cruciate and collateral ligaments are intact. The extensor mechanism is intact. There is moderate diffuse chondromalacia of the medial femoral condyle and tibial plateau with a more mild degree of chondromalacia of the lateral femoral condyle and tibial plateau as well as the patella. No significant abnormal bone marrow signal is seen. There is moderate joint effusion. There is a suprapatellar plica with mild synovial thickening. There is moderate fluid anterior to the patella consistent with prepatellar bursitis. There is no popliteal cyst. There is diffuse nonspecific ill-defined soft tissue edema involving the visualized soft tissues and muscles. I suspect a tiny medial joint body only a couple of millimeters in diameter. IMPRESSION: Tear posterior horn of the medial meniscus. Cruciate and collateral ligaments intact. Global chondromalacia most significantly in the medial joint compartment. There appears to be a tiny 2-3 mm joint body in that medial joint compartment. Moderate joint effusion. Prepatellar bursitis. Diffuse nonspecific soft tissue edema. Electronically Signed by Aureliano Rivas MD 07/03/2019 08:08 P
[2019-07-02] MEDS: LEVEMIR (INSULIN DETEMIR) 1 UNITS/0.01ML SC SCH ×2 (09:15→22:26)
[2019-07-02] MEDS: SILVER SULFADIAZINE 1% CR 50 GM JAR TOP SCH ×2 (10:28→22:27)
[2019-07-02] MEDS ORDERED: HEPARIN 1,000 UNITS/ML 10ML VIAL (FOR RADIOLOGY& DIALYSIS ONLY) IV ONE (11:30)
--- NOTE | 2019-07-02 17:56 | IPN ---
DATE: 07/02/2019 SUBJECTIVE: Patient was seen and examined at the bedside today morning. She is afebrile, hemodynamically stable. Today is patient's regular day of dialysis. She is going to be dialyzed in the afternoon. She does not have an intravenous (IV) line. She is going to get antibiotics after dialysis as well. Peripherally inserted central catheter (PICC) line has been cancelled. OBJECTIVE: VITAL SIGNS: Temperature is 97.9 degrees Fahrenheit, blood pressure 99/52, pulse is 64, respiratory rate of 17, saturating 98% on room air. INTAKE AND OUTPUT: There is no urine output recorded. Weight in the bed scale is not available. PHYSICAL EXAMINATION: GENERAL: Patient is awake, alert, oriented times three, laying in bed, in no apparent distress. HEAD AND NECK EXAM: Extraocular muscles intact. Pupils equally round and reactive to light. Mucous membranes are moist. Neck is supple. There is no jugular venous distention (JVD). CARDIOVASCULAR: S1, S2. 2+ edema of the right lower extremity. RESPIRATORY: Chest is clear to auscultation bilaterally. Bilateral equal air entry. No rales or rhonchi. ABDOMEN: Soft, obese, positive bowel sounds. Positive abdominal wall edema. MUSCULOSKELETAL: Left below-knee amputation site has a wound VAC. She has right leg edema, which is 2+. CENTRAL NERVOUS SYSTEM (AUTOMATION/CONTROLS MANAGER): No focal deficit. Power is 5/5 in bilateral upper extremities. ARTERIOVENOUS (AV) AXIS: Left forearm AV fistula with positive thrill and bruit. LABORATORY REVIEW: Complete blood count (CBC) showed a WBC 9.6, hemoglobin 10.9, platelets of 157. Basic metabolic panel (BMP) shows a sodium of 136, potassium 4.6, chloride 103, bicarbonate 26, BUN 44, creatinine 4.69, calcium is 7.4, albumin is 1.7. IMAGING STUDIES: She had an MRI of the knee done which showed the area of the posterior horn of the medial meniscus, cruciate and collateral ligaments intact. Global chondromalacia most significantly in the medial joint. CURRENT INPATIENT MEDICATIONS: Patient's medications were all reviewed by me. Cefepime has been changed to 2 grams IV every hemodialysis. No other change in the medications today as compared with yesterday. ASSESSMENT AND PLAN: 1. End-stage renal disease on hemodialysis. Patient is going to be dialyzed according to her regular schedule. I will try to remove at least 2 liters of fluid. 2. Hypotension. Patient is going to get albumin at 25 grams IV with hemodialysis today. 3. Sepsis secondary to the left below-knee amputation site infection. Patient is going to get cefepime 2 grams IV with each hemodialysis session. Continue Zyvox 600 mg by mouth twice a day as well.
[2019-07-02 22:00] VITALS: BP 119/58
--- NOTE | 2019-07-02 22:16 | IPNPDOC ---
Text Note Date of Service The patient was seen on 07/02/19. NOTE S: patient states no further restless arm movement since restarting home meds (trazadone and gabapentin). She has been off cymbalta due to zyvox interaction. She is on zyvox because of left BKA stump infection. unfortunately cultures not available. She states knee pain not as bad if doesn't move knee and lidocaine patch helping. She is scheduled for dialysis today for her ESRD. She states no CP, no SOB and has mild cough after neb treatments. O: Vitals as below General: pleasant NAD AAOX3 HRRR with murmur LCTA Right leg bandage intact to foot, no ankle edema Left BKA wound vac intact MRI images reviewed and dsicussed with patient and ortho - meniscus tear present A/P 1) knee pain right with prepatella bursitis , no septic joint and due to meniscus tear s/p fall prior to admission - -knee immobilizer, Dr Negrete to see in AM - aspirated on 06/29/19 - no cultures report yet 2) cellulitis left leg - zyvox/cefepime IV initially - lost IV access and zyvox changed to po, cefepime given at dialysis MWF. Dr Estrella consulted; surgical debridement on 06/27/19; unknown if cultures sent - not located in lab; Day 6 antibiotics for sepsis from cellultitis left leg/stump 3)ESRD- nephrology consulted ; dialysis on 06/27/19, 06/28 and 06/30/19 and 07/02/19 4) Pruritis - resolved. 5) Endstage liver disease - cefepime for SBP prophylaxis. family states fever started PRIOR to paracentesis; hold trazadone. on spironolactone. Ammonia 42 - no need for lactulose at this time, mentation improved . 06/29/19 paracentesis performed 7 liter removed. 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 no cultures sent. Dressing changes per podiatry 9) anemia of chronic disease - transfuse 2 unit pRBC on 06/28/19 10) metabolic encephalopathy -RESOLVED. suspected due to underlying hypotension, sepsis and medications (oxycodone/gabapentin and trazadone). 11) Sepsis - RESOLVED. suspect probable left BKA is source, although need to r/o SBP; given rocephin in ED; changed to zyvox/cefepime (hold cymbalta while on zyvox). await /. IVF sepsis protocol given in ED. continue with prn midodrine and hold antihypertensive meds. Transfer to [facility] with tele 12) Hypotension - IMPROVED. etiology includes possible sepsis vs worsening ESRD/Endstage liver disease; albumin x5 doses given; continue midodrine. no need for further fluid resuscitation. hold parameters written for midodrine 13) Heart murmur with small pericardial effusion on CT - check blood cultures, minimal pericardial effusion on echo. - RESOLVED 14) hypothyroid -stable VS,Fishbone, I+O VS, Fishbone, I+O Laboratory Tests 07/02/19 05:17 Red Blood Count 3.76 L, Mean Corpuscular Volume 96.5 H, Mean Corpuscular Hemoglobin 29.0, Mean Corpuscular Hemoglobin Concent 30.0 L, Red Cell Distribution Width 20.0 H, Calcium Level 7.4 L, Aspartate Amino Transf (AST/SGOT) 15, Alanine Aminotransferase (ALT/SGPT) 18, Alkaline Phosphatase 320 H, Total Bilirubin 0.4, Total Protein 5.2 L, Albumin 1.7 L Vital Signs Date Time Temp Pulse Resp B/P (MAP) Pulse Ox O2 Delivery O2 Flow Rate FiO2 07/02/19 09:30 18 07/02/19 06:00 97.9 64 99/52 (68) 98 06/28/19 06:02 1.0 06/26/19 15:25 Nasal Cannula I&O- Last 24 Hours up to 6 AM 07/02/19 06:00 Intake Total 730 ml Balance 730 ml JEANINE AU DO Jul 02, 2019 13:38
[2019-07-02] MEDS: traZODone 100 MG TAB PO SCH (22:24)
[2019-07-02] MEDS: GABAPENTIN 100 MG CAP PO SCH (22:25)
[2019-07-02] MEDS: SIMVASTATIN 20 MG TAB PO SCH (22:25)
[2019-07-02] MEDS: **NOTE PATIENT COMMENT** MISC XX SCH (22:26)
[2019-07-03] MEDS: oxyCODONE 5MG TAB PO PRN ×3 (00:41→14:09)
[2019-07-03 06:00] VITALS: BP 109/60
[2019-07-03] MEDS: LEVOTHYROXINE 125MCG TABLET (0.125MG) PO SCH (06:19)
[2019-07-03] MEDS: HEPARIN SOD (PORCINE) 5000 UNITS/ML VIAL SC SCH ×3 (06:19→22:05)
[2019-07-03 06:41] LABS: HEMATOCRIT 34.6 % (36.0-47.0); HEMOGLOBIN 10.2 g/dl (12.0-15.5); MEAN CORPUSCULAR HEMOGLOBIN 29.2 pg (27.0-33.0); MEAN CORPUSCULAR HGB CONC 29.5 g/dl (32.0-36.5); MEAN CORPUSCULAR VOLUME 99.1 fl (80.0-96.0); PLATELET COUNT, AUTOMATED 142 10^3/uL (150-450); RED BLOOD COUNT 3.49 10^6/uL (4.00-5.40); WHITE BLOOD COUNT 10.2 10^3/uL (4.0-10.0)
[2019-07-03 07:12] LABS: ALBUMIN 1.9 GM/DL (3.2-5.2); BILIRUBIN,TOTAL 0.6 MG/DL (0.2-1.0); CALCIUM LEVEL 7.4 MG/DL (8.8-10.2); CREATININE FOR GFR 3.7 MG/DL (0.55-1.30); GLOMERULAR FILTRATION RATE 12.9 (>39); TOTAL PROTEIN 5.5 GM/DL (6.4-8.2)
[2019-07-03] MEDS: ALBUTEROL SULFATE 2.5 MG/0.5 ML INH NEB SOLN NEB SCH ×4 (07:57→20:31)
--- NOTE | 2019-07-03 08:02 | IPN ---
DATE: 07/03/2019 SUBJECTIVE: The patient is doing much better. Her knee feels improved. It is still causing some pain, but considering where it was a few days ago she is very happy with the progress. She underwent a MRI recently that demonstrated significant soft tissue edema, prepatellar bursitis along with medial meniscal tear. OBJECTIVE: Vital signs stable. Right lower extremity prepatellar bursa still inflamed, however, overall soft tissue condition looks much improved. There is mild fluctuance to the prepatellar bursa, however, tenderness is significantly improved compared to previous exams. Knee range of motion is improved. MRI: MRI reviewed demonstrating significant soft tissue edema, significant prepatellar bursitis along with degenerative changes and meniscal tear and signs of osteoarthritis. ASSESSMENT AND PLAN: This is a 68-year-old female with a right leg prepatellar bursitis along with degenerative medial meniscal tears of the right knee. At this point, I would continue with conservative management in the terms of IV antibiotics considering the significant amount of improvement she has had over the last few days. I would also continue rest, ice, elevation and compression for her prepatellar bursa as tolerated. She may wear a knee immobilizer if she wishes, but does not require to. There are no weight bearing restrictions based on orthopedic issues. Otherwise, rest of care per primary team. There is no operative intervention at this time. Please call if any questions or concerns.
[2019-07-03] MEDS: OYSTER SHELL CALCIUM 500 MG TAB PO SCH (08:13)
[2019-07-03] MEDS: LIDOCAINE 5% (LIDODERM) PATCH TD SCH (08:13)
[2019-07-03] MEDS: LINEZOLID 600MG TABLET (ZYVOX) PO SCH ×2 (08:13→20:24)
[2019-07-03] MEDS: rOPINIRole 2MG TAB PO SCH ×2 (08:13→20:23)
[2019-07-03] MEDS: MIDODRINE 5 MG TAB PO SCH ×2 (08:13→16:35)
[2019-07-03] MEDS: FAMOTIDINE 20 MG TAB PO SCH (08:13)
[2019-07-03] MEDS: HumaLOG INSULIN (NovoLOG) PER UNIT SC SCH ×4 (08:14→21:00)
[2019-07-03] MEDS: LEVEMIR (INSULIN DETEMIR) 1 UNITS/0.01ML SC SCH ×2 (08:14→22:05)
[2019-07-03] MEDS: SILVER SULFADIAZINE 1% CR 50 GM JAR TOP SCH ×2 (08:15→20:22)
[2019-07-03] MEDS ORDERED: HEPARIN 1,000 UNITS/ML 10ML VIAL (FOR RADIOLOGY& DIALYSIS ONLY) IV ONE (10:00)
--- NOTE | 2019-07-03 10:09 | IPN ---
DATE OF VISIT: 07/01/2019 SUBJECTIVE: The patient was seen and examined at the bedside today morning. Her family members were also present at the bedside. She was dialyzed yesterday about 2 liters of fluid was removed. She denies any active complaints, she continues to her wound vacuum assisted closure (vac) on the left leg. OBJECTIVE: VITAL SIGNS: Temperature is 97.8 degrees Fahrenheit, blood pressure 136/63, pulse is 73, respiratory of 16, saturating 93% on room air. Intake and output: Ultrafiltration with hemodialysis was 2 liters yesterday. Weight in the bed scale is not available. PHYSICAL EXAMINATION: GENERAL: The patient is awake, alert, oriented times three laying in bed in no apparent distress. HEAD AND NECK: Extraocular muscles intact. Pupils equally round and reactive to light. Mucous membranes are moist. NECK: Neck is supple. There is no jugular venous distention (JVD). CARDIOVASCULAR: S1, S2, 2+ edema of the bilateral lower extremities. RESPIRATORY: Chest is clear to auscultation bilaterally. Bilateral equal air entry. No rales or rhonchi. ABDOMEN: Abdomen is soft, obese, positive bowel sounds. Mild amount of ascites in the flank and abdominal wall edema was noted. MUSCULOSKELETAL: 2+ edema of the right lower extremity. The left leg has below-knee amputation with wound vac on the leg. CENTRAL NERVOUS SYSTEM (TRAVELING PHLEBOTOMIST): No focal deficit, power is 5/5 in bilateral upper extremities. Arteriovenous (AV) access: The patient has a left forearm AV fistula with positive thrill and bruit. LABORATORY REVIEW: CBC showed WBC 10.4, hemoglobin 10.5, platelets of 161. Basic metabolic profile (BMP) showed sodium 138, potassium 4.3, chloride 105, bicarb 27, BUN 30, creatinine is 3.5. CURRENT INPATIENT MEDICATIONS: The patient's medications were all reviewed by me. Cefepime is on hold. Lactulose has been stopped. She is on Zyvox 600 mg by mouth twice a day. No other change in the medications today as compared with yesterday. ASSESSMENT/PLAN: 1. End-stage renal disease on hemodialysis. The patient will be dialyzed again because of significant fluid overload and will put her back on her regular schedule to be dialyzed in the morning. 2. Anemia secondary to end-stage renal disease. Hemoglobin is within the acceptable range. Continue current dose of Aranesp 200 mcg intravenous (IV) with dialysis. 3. Left leg cellulitis. The patient's cefepime is on hold because of no access. The patient can be given cefepime with each dialysis. Continue oral Zyvox.
--- NOTE | 2019-07-03 14:51 | IPNPDOC ---
Subjective Date Seen The patient was seen on 07/03/19. Subjective Chief Complaint/HPI Patient seen and examined at the bedside during dialysis. States that her right knee swelling has improved with conservative measures. Denies any acute overnight complaints. Objective Physical Examination General Exam: Positive: Alert, Cooperative, No Acute Distress ENT Exam: Positive: Atraumatic Chest Exam: Positive: Clear to auscultation, Normal air movement Heart Exam: Positive: Rate Normal, Normal S1, Normal S2 Abdomen Exam: Positive: Normal bowel sounds, Soft (obese, NT , distended with anasarca,1-2+ pitting edema; no ascites wave demonstrated on exam;) Extremity Exam: Positive: Swelling, Other (left BKA stump with wound vac and mild erythema to thigh but no sharp demarcation; Right pretib with warm,erythema, weeping blisters; right toes with hard diabetic callouses but no necrotic tissues noted. Right foot with open diabetic ulcer to bottom of hallux, no active drainage) Psych Exam: Positive: Mental status NL, Mood NL, Oriented x 3 Assessment /Plan Plan/VTE VTE Prophylaxis Ordered?: Yes Plan Hx of LLE BKA, admitted for cellulitis of the stump s/p Dr Estrella consulted; surgical debridement on 06/27/19, s/p wound vac placement---no cultures available from the procedure Currently on zyvox/cefepime IV during dialysis on MWF. Patient has remained Afebrile and WBC has improved We will cont to monitor Right Knee Pain 2/2 prepatella bursitis Attempt was made to aspirate joint on 06/29/19 by Orthopedic Surgery however no fluid was able to be obtained Low suspicion for septic joint as per Ortho Cont therapy as recommended by Ortho ESRD Nephrology on board for dialysis Endstage liver disease s/p paracentesis with 7 liters removed on 06/29/19 Cefepime ordered for SBP prophylaxis Interstitial lung disease Cont IS, NEBs, Diabetes with intermediate card tender insulin, hyperglycemia, diabetic nephropathy Cont levemir, SSI; BS stable Right diabetic foot ulcer present on admission Podiatry on board, debrided. No cultures sent. Dressing changes per podiatry Anemia of chronic disease Transfused 2 unit pRBC's on 06/28/19 Hgb stable since then Hypothyroidism Continue levothyroxine Dyslipidemia Continue statin Restless leg syndrome Continue ropinirole DVT prophylaxis Heparin subcutaneous Disposition-pending continued clinical improvement. It appears that the patient will likely need rehabilitation upon discharge. PFS on board, we will follow up with PT recommendations. VS, I&O, 24H, Fishbone Vital Signs/I&O Vital Signs Date Time Temp Pulse Resp B/P (MAP) Pulse Ox O2 Delivery O2 Flow Rate FiO2 07/03/19 14:09 18 07/03/19 06:00 97.5 78 109/60 (76) 94 06/28/19 06:02 1.0 I&O- Last 24 Hours up to 6 AM 07/03/19 06:00 Intake Total 660 ml Output Total 2000 ml Balance -1340 ml Laboratory Data 24H LABS Laboratory Tests 2 07/02/19 18:54: Bedside Glucose (Misc Panel) 220H 07/02/19 20:54: Bedside Glucose (Misc Panel) 214H 07/03/19 06:01: Nucleated Red Blood Cells % (auto) 0.3H, Anion Gap 7L, Glomerular Filtration Rate 12.9L, Blood Urea Nitrogen 33H, Creatinine 3.70H, Sodium Level 138, Potassium Level 4.0, Chloride Level 103, Carbon Dioxide Level 28, Calcium Level 7.4L, Aspartate Amino Transf (AST/SGOT) 19, Alanine Aminotransferase (ALT/SGPT) 20, Alkaline Phosphatase 383H, Total Bilirubin 0.6, Total Protein 5.5L, Albumin 1.9L, Albumin/Globulin Ratio 0.53L 07/03/19 12:20: Bedside Glucose (Misc Panel) 186H CBC/BMP Laboratory Tests 07/03/19 06:01 Red Blood Count 3.49 L, Mean Corpuscular Volume 99.1 H, Mean Corpuscular Hemoglobin 29.2, Mean Corpuscular Hemoglobin Concent 29.5 L, Red Cell Distribution Width 20.1 H, Calcium Level 7.4 L, Aspartate Amino Transf (AST/SGOT) 19, Alanine Aminotransferase (ALT/SGPT) 20, Alkaline Phosphatase 383 H, Total Bilirubin 0.6, Total Protein 5.5 L, Albumin 1.9 L Microbiology Microbiology 06/26/19 Blood Culture - Final, Complete NO GROWTH AFTER 5 DAYS 06/26/19 Blood Culture - Final, Complete NO GROWTH AFTER 5 DAYS 06/26/19 Urine Culture - Final, Complete JENISE JAIME MD Jul 03, 2019 14:51
[2019-07-03] MEDS: SIMVASTATIN 20 MG TAB PO SCH (20:23)
[2019-07-03] MEDS: traZODone 100 MG TAB PO SCH (20:23)
[2019-07-03] MEDS: GABAPENTIN 100 MG CAP PO SCH (20:23)
[2019-07-03] MEDS: **NOTE PATIENT COMMENT** MISC XX SCH (20:28)
[2019-07-03 22:00] VITALS: BP 107/50
[2019-07-04 06:00] VITALS: BP 128/68
[2019-07-04] MEDS: HEPARIN SOD (PORCINE) 5000 UNITS/ML VIAL SC SCH ×3 (06:20→22:00)
[2019-07-04] MEDS: LIDOCAINE 5% (LIDODERM) PATCH TD SCH (06:20)
[2019-07-04 06:21] LABS: HEMATOCRIT 34.4 % (36.0-47.0); HEMOGLOBIN 10.2 g/dl (12.0-15.5); MEAN CORPUSCULAR HEMOGLOBIN 28.7 pg (27.0-33.0); MEAN CORPUSCULAR HGB CONC 29.7 g/dl (32.0-36.5); MEAN CORPUSCULAR VOLUME 96.9 fl (80.0-96.0); PLATELET COUNT, AUTOMATED 129 10^3/uL (150-450); RED BLOOD COUNT 3.55 10^6/uL (4.00-5.40); WHITE BLOOD COUNT 8.2 10^3/uL (4.0-10.0)
[2019-07-04] MEDS: rOPINIRole 2MG TAB PO SCH ×2 (06:21→22:53)
[2019-07-04] MEDS: MIDODRINE 5 MG TAB PO SCH ×2 (06:21→15:00)
[2019-07-04] MEDS: LEVOTHYROXINE 125MCG TABLET (0.125MG) PO SCH (06:22)
[2019-07-04] MEDS: FAMOTIDINE 20 MG TAB PO SCH (06:22)
[2019-07-04] MEDS: OYSTER SHELL CALCIUM 500 MG TAB PO SCH (06:22)
[2019-07-04] MEDS: LINEZOLID 600MG TABLET (ZYVOX) PO SCH ×2 (06:23→22:52)
[2019-07-04 06:24] VITALS: BP 126/67
[2019-07-04 06:44] LABS: ALBUMIN 1.8 GM/DL (3.2-5.2); BILIRUBIN,TOTAL 0.5 MG/DL (0.2-1.0); CALCIUM LEVEL 7.5 MG/DL (8.8-10.2); CREATININE FOR GFR 3.32 MG/DL (0.55-1.30); GLOMERULAR FILTRATION RATE 14.6 (>39); POTASSIUM SERUM 4.2 MEQ/L (3.5-5.1); TOTAL PROTEIN 5.5 GM/DL (6.4-8.2)
[2019-07-04] MEDS: oxyCODONE 5MG TAB PO PRN (07:31)
[2019-07-04] MEDS: ALBUTEROL SULFATE 2.5 MG/0.5 ML INH NEB SOLN NEB SCH ×4 (07:34→19:27)
--- NOTE | 2019-07-04 08:04 | IPN ---
DATE: 07/03/2019 Ms. Hernandez is seen this morning on her bedside. She is getting ready to eat her breakfast. She is in good spirits this morning. She denies any nausea, vomiting, dyspnea or chest pain. Her abdominal distention has improved since her last paracentesis. She has been dialyzed frequently and her generalized edema has also improved. She was dialyzed yesterday and 2 liters fluid was removed. On physical examination, temperature 97.5 degrees Fahrenheit, heart rate 78 per minute and respiratory rate 18 per minute. Blood pressure 109/60 mmHg and oxygen saturation 94% on room air. Head is atraumatic. She has no oral thrush or ulcers. Neck is supple and jugular venous distention (JVD) is mildly elevated. Heart sounds regular and lungs clear to auscultation. Abdomen is distended with a large amount of ascites and bowel sounds are present. Extremities have no cyanosis or clubbing. Right lower extremity cellulitis has improved. Erythema and swelling on her right knee is still present. She has a left jqswm-hyi-vmgk amputation and the stump is wrapped in dressing. Neurologically she is awake and at her baseline mentation. Today's labs show WBC count 10.2, hemoglobin 10.2 and hematocrit 34.6. Platelets 142. Sodium 138, potassium 4.0, CO2 28, BUN 33 and creatinine 3.70. Glucose 158 and calcium 7.4. Total protein is 5.5 and albumin 1.9. PROBLEMS: 1. End-stage renal disease. The patient had her regular dialysis treatment yesterday as she is regularly dialyzed on Tuesday, Tuesday and Tuesday schedule. She will be dialyzed again on Tuesday. 2. Hypervolemia and generalized edema. Her volume status has improved significantly since admission and generalized edema has improved significantly. Unfortunately, she has severe protein malnutrition due to recurrent ascites requiring paracentesis and cirrhosis of liver. We will continue our efforts to keep and maintain her volume status. We will try to ultrafiltrate her today and see if she can tolerate another 1 or 2 liters of fluid removal. 3. Cirrhosis of liver with recurrent ascites. The patient continues to require frequent paracentesis and her last paracentesis was done on June 29. At this point, there is no urgent need for paracentesis. We will continue to monitor her closely. 4. Right knee and leg swelling and redness. The patient had an MRI which showed prepatellar bursa situs and meniscus tear. She is anticipating to get a new brace. She remains on antibiotics for cellulitis. Currently she is afebrile. 5. Generalized vascular disease, status post left ehcpu-rge-djey amputation. Her left leg stump has been infected and poorly healing. Unfortunately, her nutrition is poor and she has multiple comorbid conditions. It remains to be seen how her leg stump heals. 6. Diabetes. Her diabetes is much better controlled in the hospital, however, at home it has been poorly controlled. She would probably benefit from halfway placement as her condition has improved significantly since she came to the hospital.
[2019-07-04] MEDS: LEVEMIR (INSULIN DETEMIR) 1 UNITS/0.01ML SC SCH ×2 (08:29→21:00)
[2019-07-04] MEDS: HumaLOG INSULIN (NovoLOG) PER UNIT SC SCH ×4 (08:30→21:00)
[2019-07-04] MEDS: SILVER SULFADIAZINE 1% CR 50 GM JAR TOP SCH ×2 (08:31→20:20)
[2019-07-04 14:00] VITALS: BP 106/53
--- NOTE | 2019-07-04 15:13 | IPNPDOC ---
Subjective Date Seen The patient was seen on 07/04/19. Subjective Chief Complaint/HPI Patient seen and examined at the bedside. Reports that her right knee is more swollen and red today. She states that she has been keeping it elevated and iced, but this has not been helping Objective Physical Examination General Exam: Positive: Alert, Cooperative, No Acute Distress ENT Exam: Positive: Atraumatic Chest Exam: Positive: Clear to auscultation, Normal air movement Heart Exam: Positive: Rate Normal, Normal S1, Normal S2 Abdomen Exam: Positive: Normal bowel sounds, Soft (obese, NT , distended with anasarca,1-2+ pitting edema; no ascites wave demonstrated on exam;) Extremity Exam: Positive: Swelling, Other (left BKA stump with wound vac and mild erythema to thigh but no sharp demarcation; Right pretib with warm,erythema, weeping blisters; right toes with hard diabetic callouses but no necrotic tissues noted. Right foot with open diabetic ulcer to bottom of hallux, no active drainage) Psych Exam: Positive: Mental status NL, Mood NL, Oriented x 3 Assessment /Plan Plan/VTE VTE Prophylaxis Ordered?: Yes Plan Hx of LLE BKA, admitted for cellulitis of the stump s/p Dr Estrella consulted; surgical debridement on 06/27/19, s/p wound vac placement---no cultures available from the procedure Currently on zyvox/cefepime IV during dialysis on MWF. Patient has remained Afebrile and WBC has improved We will cont to monitor Right Knee Pain 2/2 prepatella bursitis Attempt was made to aspirate joint on 06/29/19 by Orthopedic Surgery however no fluid was able to be obtained Right knee appears more red and swollen today despite supportive measures and abx coverage-->Ortho contacted about this, will see the patient this evening We will follow up with recommendations ESRD Nephrology on board for dialysis Endstage liver disease s/p paracentesis with 7 liters removed on 06/29/19 Cefepime ordered for SBP prophylaxis Interstitial lung disease Cont IS, NEBs, 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 No cultures sent. Dressing changes per podiatry Anemia of chronic disease Transfused 2 unit pRBC's on 06/28/19 Hgb stable since then Hypothyroidism Continue levothyroxine Dyslipidemia Continue statin Restless leg syndrome Continue ropinirole DVT prophylaxis Heparin subcutaneous Disposition-pending continued clinical improvement VS, I&O, 24H, Fishbone Vital Signs/I&O Vital Signs Date Time Temp Pulse Resp B/P (MAP) Pulse Ox O2 Delivery O2 Flow Rate FiO2 07/04/19 14:00 98.4 89 17 106/53 (70) 95 06/28/19 06:02 1.0 I&O- Last 24 Hours up to 6 AM 07/04/19 06:00 Intake Total 1200 ml Output Total 1000 ml Balance 200 ml Laboratory Data 24H LABS Laboratory Tests 2 07/03/19 16:51: Bedside Glucose (Misc Panel) 199H 07/03/19 20:54: Bedside Glucose (Misc Panel) 174H 07/04/19 05:33: Nucleated Red Blood Cells % (auto) 0.2H, Anion Gap 7L, Glomerular Filtration Rate 14.6L, Blood Urea Nitrogen 31H, Creatinine 3.32H, Sodium Level 138, Potassium Level 4.2, Chloride Level 103, Carbon Dioxide Level 28, Calcium Level 7.5L, Aspartate Amino Transf (AST/SGOT) 18, Alanine Aminotransferase (ALT/SGPT) 19, Alkaline Phosphatase 348H, Total Bilirubin 0.5, Total Protein 5.5L, Albumin 1.8L, Albumin/Globulin Ratio 0.49L 07/04/19 11:55: Bedside Glucose (Misc Panel) 209H CBC/BMP Laboratory Tests 07/04/19 05:33 Red Blood Count 3.55 L, Mean Corpuscular Volume 96.9 H, Mean Corpuscular Hemoglobin 28.7, Mean Corpuscular Hemoglobin Concent 29.7 L, Red Cell Distribution Width 20.3 H, Calcium Level 7.5 L, Aspartate Amino Transf (AST/SGOT) 18, Alanine Aminotransferase (ALT/SGPT) 19, Alkaline Phosphatase 348 H, Total Bilirubin 0.5, Total Protein 5.5 L, Albumin 1.8 L Microbiology Microbiology 06/26/19 Blood Culture - Final, Complete NO GROWTH AFTER 5 DAYS 06/26/19 Blood Culture - Final, Complete NO GROWTH AFTER 5 DAYS 06/26/19 Urine Culture - Final, Complete JENISE JAIME MD Jul 04, 2019 15:13
[2019-07-04] MEDS: **NOTE PATIENT COMMENT** MISC XX SCH (20:20)
[2019-07-04 22:00] VITALS: BP 108/54
[2019-07-04] MEDS: SIMVASTATIN 20 MG TAB PO SCH (22:52)
[2019-07-04] MEDS: traZODone 100 MG TAB PO SCH (22:52)
[2019-07-04] MEDS: GABAPENTIN 100 MG CAP PO SCH (22:53)
[2019-07-05] VITALS (12 sets, daily range): BP systolic 118–127; BP diastolic 56–65
[2019-07-05] MEDS: HEPARIN SOD (PORCINE) 5000 UNITS/ML VIAL SC SCH ×3 (05:24→21:53)
[2019-07-05] MEDS: LEVOTHYROXINE 125MCG TABLET (0.125MG) PO SCH (05:45)
[2019-07-05] MEDS: MIDODRINE 5 MG TAB PO SCH ×2 (06:32→17:48)
[2019-07-05] MEDS: LINEZOLID 600MG TABLET (ZYVOX) PO SCH ×2 (06:32→21:51)
[2019-07-05] MEDS: rOPINIRole 2MG TAB PO SCH ×2 (06:33→21:52)
[2019-07-05] MEDS: OYSTER SHELL CALCIUM 500 MG TAB PO SCH (06:34)
[2019-07-05] MEDS: FAMOTIDINE 20 MG TAB PO SCH (06:34)
[2019-07-05] MEDS: LIDOCAINE 5% (LIDODERM) PATCH TD SCH (06:35)
[2019-07-05] MEDS: ALBUTEROL SULFATE 2.5 MG/0.5 ML INH NEB SOLN NEB SCH ×4 (07:11→20:00)
[2019-07-05] MEDS: HumaLOG INSULIN (NovoLOG) PER UNIT SC SCH ×4 (07:30→21:00)
[2019-07-05 08:54] LABS: HEMATOCRIT 35.9 % (36.0-47.0); HEMOGLOBIN 10.9 g/dl (12.0-15.5); MEAN CORPUSCULAR HEMOGLOBIN 29.4 pg (27.0-33.0); MEAN CORPUSCULAR HGB CONC 30.4 g/dl (32.0-36.5); MEAN CORPUSCULAR VOLUME 96.8 fl (80.0-96.0); PLATELET COUNT, AUTOMATED 147 10^3/uL (150-450); RED BLOOD COUNT 3.71 10^6/uL (4.00-5.40); WHITE BLOOD COUNT 8.2 10^3/uL (4.0-10.0)
[2019-07-05] MEDS: LEVEMIR (INSULIN DETEMIR) 1 UNITS/0.01ML SC SCH ×2 (09:00→21:52)
--- NOTE | 2019-07-05 09:12 | IPN ---
DATE OF SERVICE: 07/05/2019 SUBJECTIVE: The patient appeared comfortable in bed this morning. She states she feels improvement in her knee pain. She has been working on her range of motion. She feels the redness, and pain has decreased progressively. However, not as quickly as she would have liked, but she is happy with progression. Denies any fevers overnight. Vital signs were stable. The patient was afebrile. White count of 8.2. RIGHT LOWER EXTREMITY: Skin is intact. There is an area of fluctuance that is decreasing in erythema and decreasing in tenderness to palpation. Knee range of motion is improving. Surrounding skin erythema and swelling has improved. ASSESSMENT AND PLAN: This is a 68-year-old female with right knee prepatellar bursitis. At this point, it is possible it is infected, however, is improving on antibiotics. This is the standard of care. I also recommended compression with an Jose Alfredo bandage. This has been conveyed to the nursing staff and the patient. She should continue working on range of motion. Continue her antibiotics. As long as she continues improving, there is no need for surgical intervention. There is no concern at this point for septic arthritis. She previously underwent a dry tap, along with the fact that her knee range of motion and pain is improving, which would not happen with septic arthritis. She should continue her current care. Defer rest of care to primary team.
[2019-07-05 09:23] LABS: CALCIUM LEVEL 7.4 MG/DL (8.8-10.2); CREATININE FOR GFR 4.21 MG/DL (0.55-1.30); GLOMERULAR FILTRATION RATE 11.1 (>39); POTASSIUM SERUM 4.7 MEQ/L (3.5-5.1)
[2019-07-05] MEDS: ONDANSETRON 4 MG ORAL DISINTEGRATING TAB (Q0162 PER 1MG) PO PRN (10:55)
--- NOTE | 2019-07-05 11:01 | IPN ---
DATE OF SERVICE: 07/04/2019 SUBJECTIVE: The patient was seen and examined the bedside today morning. She was dialyzed yesterday, and 1 liter of fluid was removed. She is hemodynamically stable. She reports moderate to severe amount of pain in the right knee, and she was unable to move the right knee. She is also complaining of cough. OBJECTIVE: Vital signs: Temperature is 98.4 degrees Fahrenheit, blood pressure 106/53, pulse is 89, respiratory rate of 17, saturating 95% on room air. Intake and output: Ultrafiltration with hemodialysis was 1 liter yesterday. Weight in the bed scale is not available. PHYSICAL EXAMINATION: General: The patient is awake, alert, oriented times three, laying in bed, moderate painful distress. Head and neck examination: Extraocular muscles intact. Pupils equally round and reactive to light. Mucous membranes are moist. Neck is supple. There is no jugular venous distention (JVD). Cardiovascular: S1, S2, 2+ edema of the right lower extremity. Respiratory: Chest is clear to auscultation bilaterally. Bilateral equal air entry. No rales or rhonchi. Abdomen: Soft, obese, positive bowel sounds. Moderate amount of ascites and abdominal wall edema was noted. Musculoskeletal: 2+ edema of the right lower extremity, and right suprapatellar bursa is tense, warm, and tender. Left leg has below-knee amputation with a wound vacuum-assisted closure (VAC). Central nervous system (COMMUNITY ARTIST): No focal deficit. Power is 5/5 in bilateral upper extremities. AV access: Left forearm AV fistula has thrill and bruit. LABORATORY REVIEW: Complete blood count (CBC) showed WBC 8.2, hemoglobin 10.2, platelets of 129. Basic metabolic profile (BMP) showed sodium 138, potassium 4.2, chloride 103, bicarbonate 28, BUN 31, creatinine is 3.3, albumin is 1.8. CURRENT INPATIENT MEDICATIONS: The patient's medications were all reviewed by me. She continues to be on oral Zyvox and intravenous (IV) cefepime with dialysis. No change in the medications today as compared with yesterday. ASSESSMENT AND PLAN: 1. End-stage renal disease, on hemodialysis. The patient will be dialyzed tomorrow again. She was dialyzed 2 days in a row last 2 days. Electrolytes and acid base status is within the acceptable range. 2. Anemia in end-stage renal disease. Hemoglobin is acceptable. Continue current dose of Aranesp with dialysis. 3. Left leg cellulitis. Continue oral Zyvox. Cefepime is given with dialysis. 4. Right knee pain. The patient has right suprapatellar bursitis which needs to be aspirated to rule out infection. The rest of the management is as per primary team.
--- NOTE | 2019-07-05 13:22 | IPNPDOC ---
Subjective Date Seen The patient was seen on 07/05/19. Subjective Chief Complaint/HPI Patient seen and examined at the bedside. Reports that her respiratory status is significantly improved following paracentesis this morning. Also notes that her right knee pain is better, and notes better range of motion this morning as well. Objective Physical Examination General Exam: Positive: Alert, Cooperative, No Acute Distress ENT Exam: Positive: Atraumatic Chest Exam: Positive: Clear to auscultation, Normal air movement Heart Exam: Positive: Rate Normal, Normal S1, Normal S2 Abdomen Exam: Positive: Normal bowel sounds, Soft (obese, NT , distended with anasarca,1-2+ pitting edema; no ascites wave demonstrated on exam;) Extremity Exam: Positive: Swelling, Other (left BKA stump with wound vac and mild erythema to thigh but no sharp demarcation; Right pretib with warm,erythe ma, weeping blisters; right toes with hard diabetic callouses but no necrotic tissues noted. Right foot with open diabetic ulcer to bottom of hallux, no active drainage) Psych Exam: Positive: Mental status NL, Mood NL, Oriented x 3 Assessment /Plan Plan/VTE VTE Prophylaxis Ordered?: Yes Plan Hx of LLE BKA, admitted for cellulitis of the stump s/p Dr Estrella consulted; surgical debridement on 06/27/19, s/p wound vac placement---no cultures available from the procedure Currently on zyvox/cefepime IV during dialysis on MWF. Patient has remained Afebrile and WBC has improved We will cont to monitor Right Knee Pain 2/2 prepatella bursitis Attempt was made to aspirate joint on 06/29/19 by Orthopedic Surgery however no fluid was able to be obtained Right knee appears to be improving with supportive measures and abx coverage-->Ortho contacted about this, input appreciated We will follow up with recommendations ESRD Nephrology on board for dialysis Endstage liver disease s/p paracentesis with 7 liters removed on 06/29/19 s/p paracentesis this morning, official output pending Cefepime ordered for SBP prophylaxis Interstitial lung disease Cont IS, NEBs, Diabetes with terminal block assembler insulin, hyperglycemia, diabetic nephropathy Cont levemir, SSI; BS stable Right diabetic foot ulcer present on admission Podiatry on board, debrided. No cultures sent. Dressing changes per podiatry Anemia of chronic disease Transfused 2 unit pRBC's on 06/28/19 Hgb stable since then Hypothyroidism Continue levothyroxine Dyslipidemia Continue statin Restless leg syndrome Continue ropinirole DVT prophylaxis Heparin subcutaneous Disposition-pending continued clinical improvement VS, I&O, 24H, Fishbone Vital Signs/I&O Vital Signs Date Time Temp Pulse Resp B/P (MAP) Pulse Ox O2 Delivery O2 Flow Rate FiO2 07/05/19 12:00 99.3 85 16 123/62 (82) 93 I&O- Last 24 Hours up to 6 AM 07/05/19 06:00 Intake Total 240 ml Output Total 0 ml Balance 240 ml Laboratory Data 24H LABS Laboratory Tests 2 07/04/19 16:37: Bedside Glucose (Misc Panel) 206H 07/04/19 21:07: Bedside Glucose (Misc Panel) 168H 07/05/19 00:17: Bedside Glucose (Misc Panel) 151H 07/05/19 05:41: Bedside Glucose (Misc Panel) 133H 07/05/19 07:56: Nucleated Red Blood Cells % (auto) 0.4H, Anion Gap 8, Glomerular Filtration Rate 11.1L, Blood Urea Nitrogen 48#H, Creatinine 4.21H, Sodium Level 137, Potassium Level 4.7, Chloride Level 102, Carbon Dioxide Level 27, Calcium Level 7.4L 07/05/19 11:19: Bedside Glucose (Misc Panel) 142H CBC/BMP Laboratory Tests 07/05/19 07:56 Red Blood Count 3.71 L, Mean Corpuscular Volume 96.8 H, Mean Corpuscular Hemoglobin 29.4, Mean Corpuscular Hemoglobin Concent 30.4 L, Red Cell Distribution Width 20.5 H, Calcium Level 7.4 L Microbiology Microbiology 06/26/19 Blood Culture - Final, Complete NO GROWTH AFTER 5 DAYS 06/26/19 Blood Culture - Final, Complete NO GROWTH AFTER 5 DAYS 06/26/19 Urine Culture - Final, Complete JENISE JAIME MD Jul 05, 2019 13:22
[2019-07-05] MEDS: oxyCODONE 5MG TAB PO PRN ×2 (14:08→21:55)
[2019-07-05] MEDS: SILVER SULFADIAZINE 1% CR 50 GM JAR TOP SCH ×2 (14:09→21:54)
--- NOTE | 2019-07-05 15:40 | REP ---
Ultrasound-guided paracentesis The procedure was performed by ANTONIO Sierra, under the direct supervision of Dr. Rivas. The risks and benefits of the procedure were explained to the patient and informed consent was obtained both verbally and written. Directly prior to the start of the procedure, a formal timeout was completed in the procedure room. Under ultrasound guidance, the largest pocket of fluid in the left flank was localized and skin was marked. The skin was then prepped and draped in a sterile fashion. 10 ml of 1% lidocaine was used as a local anesthetic. Using ultrasound guidance, an 8-Occitan multi side-hole catheter was inserted using trocar technique. 6,800 mL of yellow colored fluid was withdrawn and discarded. The patient tolerated the procedure well and there were no immediate complications. After the appropriate monitored convalescence the patient was discharged from the department. Reviewed by ANTONIO Song 07/05/2019 01:02 P Electronically Signed by Aureliano Rivas MD 07/05/2019 03:31 P
[2019-07-05] MEDS ORDERED: DARBEPOETIN 100 MCG/0.5 ML *DIALYSIS* SYRINGE (J0882) IV SCH (21:30)
[2019-07-05] MEDS: traZODone 100 MG TAB PO SCH (21:51)
[2019-07-05] MEDS: GABAPENTIN 100 MG CAP PO SCH (21:51)
[2019-07-05] MEDS: SIMVASTATIN 20 MG TAB PO SCH (21:52)
[2019-07-05] MEDS: **NOTE PATIENT COMMENT** MISC XX SCH (21:53)
[2019-07-06 02:00] VITALS: BP 117/59
[2019-07-06 04:00] VITALS: BP 117/59
[2019-07-06 06:00] VITALS: BP_DIAS 0
[2019-07-06 06:21] LABS: HEMATOCRIT 34.8 % (36.0-47.0); HEMOGLOBIN 10.6 g/dl (12.0-15.5); MEAN CORPUSCULAR HEMOGLOBIN 28.8 pg (27.0-33.0); MEAN CORPUSCULAR HGB CONC 30.5 g/dl (32.0-36.5); MEAN CORPUSCULAR VOLUME 94.6 fl (80.0-96.0); PLATELET COUNT, AUTOMATED 143 10^3/uL (150-450); RED BLOOD COUNT 3.68 10^6/uL (4.00-5.40); WHITE BLOOD COUNT 8.5 10^3/uL (4.0-10.0)
[2019-07-06 06:51] LABS: CALCIUM LEVEL 7.2 MG/DL (8.8-10.2); CREATININE FOR GFR 5.33 MG/DL (0.55-1.30); GLOMERULAR FILTRATION RATE 8.5 (>39); POTASSIUM SERUM 5.1 MEQ/L (3.5-5.1)
[2019-07-06] MEDS: HEPARIN SOD (PORCINE) 5000 UNITS/ML VIAL SC SCH ×3 (06:57→21:25)
[2019-07-06] MEDS: LEVOTHYROXINE 125MCG TABLET (0.125MG) PO SCH (06:57)
[2019-07-06] MEDS: ALBUTEROL SULFATE 2.5 MG/0.5 ML INH NEB SOLN NEB SCH ×4 (07:08→19:53)
[2019-07-06] MEDS: HumaLOG INSULIN (NovoLOG) PER UNIT SC SCH ×4 (07:57→21:00)
[2019-07-06] MEDS: LEVEMIR (INSULIN DETEMIR) 1 UNITS/0.01ML SC SCH ×2 (07:58→21:25)
[2019-07-06] MEDS: FAMOTIDINE 20 MG TAB PO SCH (07:59)
[2019-07-06] MEDS: MIDODRINE 5 MG TAB PO SCH ×2 (07:59→16:00)
[2019-07-06] MEDS: rOPINIRole 2MG TAB PO SCH ×2 (07:59→21:25)
[2019-07-06] MEDS: OYSTER SHELL CALCIUM 500 MG TAB PO SCH (08:00)
[2019-07-06] MEDS: LIDOCAINE 5% (LIDODERM) PATCH TD SCH (08:00)
[2019-07-06] MEDS: LINEZOLID 600MG TABLET (ZYVOX) PO SCH ×2 (08:00→21:25)
[2019-07-06] MEDS: oxyCODONE 5MG TAB PO PRN (11:13)
[2019-07-06] MEDS ORDERED: HEPARIN 1,000 UNITS/ML 10ML VIAL (FOR RADIOLOGY& DIALYSIS ONLY) XX ONE (11:30)
[2019-07-06] MEDS ORDERED: HEPARIN 1,000 UNITS/ML 10ML VIAL (FOR RADIOLOGY& DIALYSIS ONLY) IV ONE (11:30)
[2019-07-06] MEDS: SILVER SULFADIAZINE 1% CR 50 GM JAR TOP SCH ×2 (11:30→21:26)
[2019-07-06] MEDS ORDERED: LIDOCAINE 1% SDV 5 ML VIAL SQ ONE (11:30)
--- NOTE | 2019-07-06 14:31 | IPNPDOC ---
Subjective Date Seen The patient was seen on 07/06/19. Subjective Chief Complaint/HPI Patient seen and examined at the bedside today. Reports that her right knee pain and swelling continues to improve. States that she is continually feeling better following the paracentesis. She is scheduled for dialysis today. Otherwise, denies any acute complaints. Objective Physical Examination General Exam: Positive: Alert, Cooperative, No Acute Distress ENT Exam: Positive: Atraumatic Chest Exam: Positive: Clear to auscultation, Normal air movement Heart Exam: Positive: Rate Normal, Normal S1, Normal S2 Abdomen Exam: Positive: Normal bowel sounds, Soft (obese, NT , distended with anasarca,1-2+ pitting edema; no ascites wave demonstrated on exam;) Extremity Exam: Positive: Swelling, Other (left BKA stump with wound vac and mild erythema to thigh but no sharp demarcation; Right pretib with warm,erythema, weeping blisters; right toes with hard diabetic callouses but no necrotic tissues noted. Right foot with open diabetic ulcer to bottom of hallux, no active drainage) Psych Exam: Positive: Mental status NL, Mood NL, Oriented x 3 Assessment /Plan Plan/VTE VTE Prophylaxis Ordered?: Yes Plan Hx of LLE BKA, admitted for cellulitis of the stump s/p Dr Estrella consulted; surgical debridement on 06/27/19, s/p wound vac placement---no cultures available from the procedure Currently on zyvox/cefepime IV during dialysis on MWF. Patient has remained Afebrile and WBC has improved We will cont to monitor Right Knee Pain 2/2 prepatella bursitis Attempt was made to aspirate joint on 06/29/19 by Orthopedic Surgery however no fluid was able to be obtained Right knee appears to be improving with supportive measures and abx coverage-->Ortho contacted about this, input appreciated We will follow up with recommendations ESRD Nephrology on board for dialysis Endstage liver disease s/p paracentesis with 7 liters removed on 06/29/19 s/p paracentesis of 6.8L removed on 07/05/19 Cefepime ordered for SBP prophylaxis Interstitial lung disease Cont IS, NEBs, Diabetes with nursing home insulin, hyperglycemia, diabetic nephropathy Cont levemir, SSI; BS stable Right diabetic foot ulcer present on admission Podiatry on board, debrided. No cultures sent. Dressing changes per podiatry Anemia of chronic disease Transfused 2 unit pRBC's on 06/28/19 Hgb stable since then Hypothyroidism Continue levothyroxine Dyslipidemia Continue statin Restless leg syndrome Continue ropinirole DVT prophylaxis Heparin subcutaneous Disposition-pending continued clinical improvement. PT on board for functional optimization, the patient is likely to require rehabilitation. VS, I&O, 24H, Fishbone Vital Signs/I&O Vital Signs Date Time Temp Pulse Resp B/P (MAP) Pulse Ox O2 Delivery O2 Flow Rate FiO2 07/06/19 11:43 16 07/06/19 11:13 97.8 87 117/0 95 1.0 I&O- Last 24 Hours up to 6 AM 07/06/19 06:00 Intake Total 420 ml Balance 420 ml Laboratory Data 24H LABS Laboratory Tests 2 07/05/19 16:34: Bedside Glucose (Misc Panel) 177H 07/05/19 21:13: Bedside Glucose (Misc Panel) 159H 07/06/19 05:49: Nucleated Red Blood Cells % (auto) 0.0, Anion Gap 9, Glomerular Filtration Rate 8.5L, Blood Urea Nitrogen 65H, Creatinine 5.33H, Sodium Level 135L, Potassium Level 5.1, Chloride Level 100, Carbon Dioxide Level 26, Calcium Level 7.2L 07/06/19 12:26: Bedside Glucose (Misc Panel) 86 CBC/BMP Laboratory Tests 07/06/19 05:49 Red Blood Count 3.68 L, Mean Corpuscular Volume 94.6, Mean Corpuscular Hemoglobin 28.8, Mean Corpuscular Hemoglobin Concent 30.5 L, Red Cell Distribution Width 20.1 H, Calcium Level 7.2 L Microbiology Microbiology 06/26/19 Blood Culture - Final, Complete NO GROWTH AFTER 5 DAYS 06/26/19 Blood Culture - Final, Complete NO GROWTH AFTER 5 DAYS 06/26/19 Urine Culture - Final, Complete JENISE JAIME MD Jul 06, 2019 14:31
[2019-07-06 17:44] VITALS: BP 121/76
[2019-07-06] MEDS: ONDANSETRON 4 MG ORAL DISINTEGRATING TAB (Q0162 PER 1MG) PO PRN (17:48)
--- NOTE | 2019-07-06 19:20 | IPN ---
DATE: 07/05/2019 SUBJECTIVE: The patient was seen and examined at the bedside today morning. She just came back after getting abdominal paracentesis done and 6.7 liters of fluid was removed. She reports that she is feeling weak and tired. Today is her day of dialysis but she does not want to go for dialysis. She reports right knee pain is also improving now. OBJECTIVE: VITAL SIGNS: Temperature is 98.5 degrees Fahrenheit, blood pressure 122/57, pulse is 79, respiratory of 16, saturating 96% on room air. INTAKE AND OUTPUT: There is no urine output recorded. Weight in the bed scale is not available. PHYSICAL EXAMINATION: GENERAL: The patient is awake, alert, oriented times three, laying in bed, in no apparent distress. HEAD AND NECK: Extraocular muscles intact. Pupils equally round and reactive to light. Mucous membranes are moist. Neck is supple. There is no jugular venous distention (JVD). CARDIOVASCULAR: S1, S2, 2+ edema of the right lower extremity. RESPIRATORY: Chest is clear to auscultation bilaterally. Bilateral equal air entry. No rales or rhonchi. ABDOMEN: Soft, obese, positive bowel sounds. Abdominal wall edema was noted. Ascites is better since she was just tapped less than an hour ago. MUSCULOSKELETAL: She has 2+ edema of the right lower extremity. Right leg ulcers are covered with dressing. Right suprapatellar bursal effusion is warm and moderately tender to deep palpation. Left below-knee amputation site has a wound vacuum-assisted closure (VAC). CENTRAL NERVOUS SYSTEM (REFRIGERATING ENGINEER): No focal deficit. Power is 5/5 in bilateral upper extremities. LABORATORY REVIEW: CBC showed a WBC of 8.2, hemoglobin 10.9, platelets are 147. BMP showed sodium 137, potassium 4.7, chloride 102, bicarbonate 27, BUN 48, creatinine is 4.2, calcium 7.4. IMAGING STUDIES: Paracentesis was done yesterday and 6.8 liters of fluid was removed. CURRENT INPATIENT MEDICATIONS: The patient's medications were all reviewed by me. She continues to be on IV cefepime with dialysis. She continues to be on oral Zyvox and no other change in the medications today as compared with yesterday. ASSESSMENT AND PLAN: 1. End-stage renal disease, on hemodialysis. The patient was supposed to be dialyzed today. However, she is refusing to go because she just got the paracentesis done and she is very tired. She will be dialyzed tomorrow morning. 2. Left leg cellulitis. Continue oral Zyvox. She will be given cefepime 2 grams with dialysis tomorrow after dialysis. 3. Anemia and end-stage renal disease. Hemoglobin is 10.9 which is optimal. I am going to decrease her dose of Aranesp 200 mcg IV with dialysis. 4. Right knee suprapatellar bursitis. The patient has a lidocaine patch. Orthopedics is on board. The patient was seen today by them.
[2019-07-06] MEDS: SIMVASTATIN 20 MG TAB PO SCH (21:25)
[2019-07-06] MEDS: GABAPENTIN 100 MG CAP PO SCH (21:25)
[2019-07-06] MEDS: traZODone 100 MG TAB PO SCH (21:25)
[2019-07-06] MEDS: **NOTE PATIENT COMMENT** MISC XX SCH (21:26)
[2019-07-06 22:00] VITALS: BP 130/60
[2019-07-07] VITALS (8 sets, daily range): BP systolic 102–126; BP diastolic 55–70
[2019-07-07] MEDS: HEPARIN SOD (PORCINE) 5000 UNITS/ML VIAL SC SCH ×3 (06:30→21:37)
[2019-07-07] MEDS: LEVOTHYROXINE 125MCG TABLET (0.125MG) PO SCH (06:30)
[2019-07-07 06:45] LABS: HEMATOCRIT 33.6 % (36.0-47.0); HEMOGLOBIN 9.9 g/dl (12.0-15.5); MEAN CORPUSCULAR HEMOGLOBIN 29.2 pg (27.0-33.0); MEAN CORPUSCULAR HGB CONC 29.5 g/dl (32.0-36.5); MEAN CORPUSCULAR VOLUME 99.1 fl (80.0-96.0); PLATELET COUNT, AUTOMATED 112 10^3/uL (150-450); RED BLOOD COUNT 3.39 10^6/uL (4.00-5.40); WHITE BLOOD COUNT 9.8 10^3/uL (4.0-10.0)
[2019-07-07] MEDS: oxyCODONE 5MG TAB PO PRN ×2 (07:00→12:50)
[2019-07-07] MEDS: ALBUTEROL SULFATE 2.5 MG/0.5 ML INH NEB SOLN NEB SCH ×4 (07:03→21:03)
[2019-07-07 07:04] LABS: CALCIUM LEVEL 7.4 MG/DL (8.8-10.2); CREATININE FOR GFR 3.57 MG/DL (0.55-1.30); GLOMERULAR FILTRATION RATE 13.4 (>39); POTASSIUM SERUM 4.8 MEQ/L (3.5-5.1)
[2019-07-07] MEDS: HumaLOG INSULIN (NovoLOG) PER UNIT SC SCH ×4 (07:30→21:00)
[2019-07-07] MEDS: rOPINIRole 2MG TAB PO SCH ×2 (08:51→21:33)
[2019-07-07] MEDS: MIDODRINE 5 MG TAB PO SCH ×2 (08:51→17:12)
[2019-07-07] MEDS: SILVER SULFADIAZINE 1% CR 50 GM JAR TOP SCH ×2 (08:51→21:35)
[2019-07-07] MEDS: FAMOTIDINE 20 MG TAB PO SCH (08:51)
[2019-07-07] MEDS: LINEZOLID 600MG TABLET (ZYVOX) PO SCH ×2 (08:51→21:35)
[2019-07-07] MEDS: OYSTER SHELL CALCIUM 500 MG TAB PO SCH (08:51)
[2019-07-07] MEDS: LEVEMIR (INSULIN DETEMIR) 1 UNITS/0.01ML SC SCH ×2 (08:52→21:36)
[2019-07-07] MEDS: LIDOCAINE 5% (LIDODERM) PATCH TD SCH (08:53)
--- NOTE | 2019-07-07 10:01 | IPN ---
DATE: 07/06/2019 SUBJECTIVE: Patient was seen and examined at the bedside today morning. She is afebrile, hemodynamically stable. She is due for dialysis today. She was doing physical therapy when I saw her. She reports right knee pain is improving now. OBJECTIVE: Vital signs: Temperature is 97.8 degrees Fahrenheit, blood pressure 117/59, pulse is 87, respiratory rate of 70, saturating 95% on 1 liter by nasal cannula. Intake and output: There is no urine output recorded. Weight in bed scale is not available. PHYSICAL EXAM: General: Patient is awake, alert, oriented times three, sitting up in the bed, in no apparent distress. Head and neck exam: Extraocular muscles intact. Pupils equally round and reactive to light. Mucous membranes are moist. Neck is supple. There is no jugular venous distention (JVD). Cardiovascular: S1, S2. 2+ edema of the right lower extremity. Respiratory: Chest is clear to auscultation bilaterally. Bilateral equal air entry. No rales or rhonchi. Abdomen: Soft, obese. Positive bowel sounds. Abdominal wall edema was noted. Musculoskeletal: 2+ edema on the right lower extremity. Right suprapatellar bursa with mild tenderness. Left leg has below-knee amputation with a wound vacuum-assisted closure (VAC). Central nervous system (SERVICE ASSOCIATE): No focal deficit. Power is 5/5 in bilateral upper extremities. LAB REVIEWS: CBC showed WBC 8.5, hemoglobin 10.6, platelets of 143. BMP showed sodium 135, potassium 5.1, chloride 100, bicarbonate 26, BUN 65, creatinine is 5.3. CURRENT INPATIENT MEDICATIONS: Patient's medications were all reviewed by me. There is no change in the medications today as compared with yesterday. Her Aranesp dose was decreased to 100 mcg IV yesterday. ASSESSMENT AND PLAN: : 1. End-stage renal disease on hemodialysis. Today is patient's day of dialysis. She will be dialyzed and I will try to remove at least 2 liters of fluid as tolerated by blood pressure. 2. Hypotension. Patient will get albumin 25% IV with dialysis to help with fluid removal and blood pressure. 3. Anemia in end-stage renal disease. Hemoglobin is optimal. Actually it is close to 11 now. I have decreased the Aranesp dose to 100 mcg. 4. Left leg cellulitis. Patient continues to be on oral Zyvox and IV cefepime. 5. Right knee pain. Patient has suprapatellar bursitis and meniscal injury. She is getting physical therapy. Orthopedics is on board.
--- NOTE | 2019-07-07 14:01 | IPNPDOC ---
Subjective Date Seen The patient was seen on 07/07/19. Subjective Chief Complaint/HPI Patient seen and examined at the bedside. No acute overnight events noted. Objective Physical Examination General Exam: Positive: Alert, Cooperative, No Acute Distress ENT Exam: Positive: Atraumatic Chest Exam: Positive: Clear to auscultation, Normal air movement Heart Exam: Positive: Rate Normal, Normal S1, Normal S2 Abdomen Exam: Positive: Normal bowel sounds, Soft (obese, NT , distended with anasarca,1-2+ pitting edema; no ascites wave demonstrated on exam;) Extremity Exam: Positive: Swelling, Other (left BKA stump with wound vac and mild erythema to thigh but no sharp demarcation; Right pretib with warm,erythema, weeping blisters; right toes with hard diabetic callouses but no necrotic tissues noted. Right foot with open diabetic ulcer to bottom of hallux, no active drainage) Psych Exam: Positive: Mental status NL, Mood NL, Oriented x 3 Assessment /Plan Plan/VTE VTE Prophylaxis Ordered?: Yes Plan Hx of LLE BKA, admitted for cellulitis of the stump s/p Dr Estrella consulted; surgical debridement on 06/27/19, s/p wound vac placement---no cultures available from the procedure Currently on zyvox/cefepime IV during dialysis on MWF. Patient has remained Afebrile and WBC has improved We will cont to monitor Right Knee Pain 2/2 prepatella bursitis Attempt was made to aspirate joint on 06/29/19 by Orthopedic Surgery however no fluid was able to be obtained Right knee appears to be improving with supportive measures and abx coverage-->Ortho contacted about this, input appreciated We will follow up with recommendations ESRD Nephrology on board for dialysis Endstage liver disease s/p paracentesis with 7 liters removed on 06/29/19 s/p paracentesis of 6.8L removed on 07/05/19 Cefepime ordered for SBP prophylaxis Interstitial lung disease Cont IS, NEBs, Diabetes with longterm insulin, hyperglycemia, diabetic nephropathy Cont levemir, SSI; BS stable Right diabetic foot ulcer present on admission Podiatry on board, debrided. No cultures sent. Dressing changes per podiatry Anemia of chronic disease Transfused 2 unit pRBC's on 06/28/19 Hgb stable since then Hypothyroidism Continue levothyroxine Dyslipidemia Continue statin Restless leg syndrome Continue ropinirole DVT prophylaxis Heparin subcutaneous Disposition-pending continued clinical improvement. PT on board for functional optimization, the patient is likely to require rehabilitation. VS, I&O, 24H, Fishbone Vital Signs/I&O Vital Signs Date Time Temp Pulse Resp B/P (MAP) Pulse Ox O2 Delivery O2 Flow Rate FiO2 07/07/19 13:20 16 07/07/19 10:00 99.2 93 102/55 (71) 93 07/06/19 11:13 1.0 I&O- Last 24 Hours up to 6 AM 07/07/19 06:00 Intake Total 660 ml Output Total 500 ml Balance 160 ml Laboratory Data 24H LABS Laboratory Tests 2 07/06/19 17:51: Bedside Glucose (Misc Panel) 109 07/06/19 20:50: Bedside Glucose (Misc Panel) 155H 07/07/19 05:53: Nucleated Red Blood Cells % (auto) 0.0, Anion Gap 9, Glomerular Filtration Rate 13.4L, Blood Urea Nitrogen 38H, Creatinine 3.57H, Sodium Level 141, Potassium Level 4.8, Chloride Level 110H, Carbon Dioxide Level 22, Calcium Level 7.4L 07/07/19 11:29: Bedside Glucose (Misc Panel) 115H CBC/BMP Laboratory Tests 07/07/19 05:53 Red Blood Count 3.39 L, Mean Corpuscular Volume 99.1 H, Mean Corpuscular Hemoglobin 29.2, Mean Corpuscular Hemoglobin Concent 29.5 L, Red Cell Distribution Width 20.4 H, Calcium Level 7.4 L JENISE JAIME MD Jul 07, 2019 14:01
[2019-07-07] MEDS: SIMVASTATIN 20 MG TAB PO SCH (21:34)
[2019-07-07] MEDS: GABAPENTIN 100 MG CAP PO SCH (21:34)
[2019-07-07] MEDS: **NOTE PATIENT COMMENT** MISC XX SCH (21:35)
[2019-07-07] MEDS: traZODone 100 MG TAB PO SCH (21:35)
[2019-07-08] MEDS: LEVOTHYROXINE 125MCG TABLET (0.125MG) PO SCH (05:40)
[2019-07-08] MEDS: HEPARIN SOD (PORCINE) 5000 UNITS/ML VIAL SC SCH ×3 (05:40→20:59)
[2019-07-08 06:00] VITALS: BP 123/62
[2019-07-08 06:10] LABS: HEMATOCRIT 35.1 % (36.0-47.0); HEMOGLOBIN 10.4 g/dl (12.0-15.5); MEAN CORPUSCULAR HEMOGLOBIN 29.4 pg (27.0-33.0); MEAN CORPUSCULAR HGB CONC 29.6 g/dl (32.0-36.5); MEAN CORPUSCULAR VOLUME 99.2 fl (80.0-96.0); RED BLOOD COUNT 3.54 10^6/uL (4.00-5.40); WHITE BLOOD COUNT 7.6 10^3/uL (4.0-10.0)
[2019-07-08 06:28] LABS: CREATININE FOR GFR 4.69 MG/DL (0.55-1.30); GLOMERULAR FILTRATION RATE 9.8 (>39); POTASSIUM SERUM 5.2 MEQ/L (3.5-5.1)
[2019-07-08] MEDS: ALBUTEROL SULFATE 2.5 MG/0.5 ML INH NEB SOLN NEB SCH ×4 (07:06→20:37)
[2019-07-08 07:24] LABS: PLATELET COUNT, AUTOMATED 97 10^3/uL (150-450)
[2019-07-08] MEDS: LIDOCAINE 5% (LIDODERM) PATCH TD SCH (08:33)
[2019-07-08] MEDS: OYSTER SHELL CALCIUM 500 MG TAB PO SCH (08:33)
[2019-07-08] MEDS: MIDODRINE 5 MG TAB PO SCH ×2 (08:33→17:01)
[2019-07-08] MEDS: LINEZOLID 600MG TABLET (ZYVOX) PO SCH ×2 (08:33→20:58)
[2019-07-08] MEDS: FAMOTIDINE 20 MG TAB PO SCH (08:33)
[2019-07-08] MEDS: rOPINIRole 2MG TAB PO SCH ×2 (08:34→20:59)
[2019-07-08] MEDS: HumaLOG INSULIN (NovoLOG) PER UNIT SC SCH ×4 (08:34→21:01)
[2019-07-08] MEDS: LEVEMIR (INSULIN DETEMIR) 1 UNITS/0.01ML SC SCH ×2 (08:34→21:01)
[2019-07-08] MEDS: SILVER SULFADIAZINE 1% CR 50 GM JAR TOP SCH ×2 (08:35→21:03)
--- NOTE | 2019-07-08 12:02 | IPNPDOC ---
Subjective Date Seen The patient was seen on 07/08/19. Subjective Chief Complaint/HPI Patient seen and examined at the bedside. No acute overnight events noted. Objective Physical Examination General Exam: Positive: Alert, Cooperative, No Acute Distress ENT Exam: Positive: Atraumatic, Mucous membr. moist/pink Chest Exam: Positive: Clear to auscultation, Normal air movement Heart Exam: Positive: Rate Normal, Normal S1, Normal S2 Abdomen Exam: Positive: Normal bowel sounds, Soft (obese, NT , distended with anasarca,1-2+ pitting edema; no ascites wave demonstrated on exam;) Extremity Exam: Positive: Swelling, Other (left BKA stump with wound vac and mild erythema to thigh but no sharp demarcation; Right pretib with warm,erythema, weeping blisters; right toes with hard diabetic callouses but no necrotic tissues noted. Right foot with open diabetic ulcer to bottom of hallux, no active drainage) Psych Exam: Positive: Mental status NL, Mood NL, Oriented x 3 Assessment /Plan Plan/VTE VTE Prophylaxis Ordered?: Yes Plan Hx of LLE BKA, admitted for cellulitis of the stump s/p Dr Estrella consulted; surgical debridement on 06/27/19, s/p wound vac placement---no cultures available from the procedure Currently on zyvox/cefepime IV during dialysis on MWF. Patient has remained Afebrile and WBC has improved We will cont to monitor Right Knee Pain 2/2 prepatella bursitis Attempt was made to aspirate joint on 06/29/19 by Orthopedic Surgery however no fluid was able to be obtained Right knee appears to be improving with supportive measures and abx coverage-->Ortho contacted about this, input appreciated We will follow up with recommendations ESRD Nephrology on board for dialysis Endstage liver disease s/p paracentesis with 7 liters removed on 06/29/19 s/p paracentesis of 6.8L removed on 07/05/19 Cefepime ordered for SBP prophylaxis Interstitial lung disease Cont IS, NEBs, 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 No cultures sent. Dressing changes per podiatry Anemia of chronic disease Transfused 2 unit pRBC's on 06/28/19 Hgb stable since then Hypothyroidism Continue levothyroxine Dyslipidemia Continue statin Restless leg syndrome Continue ropinirole DVT prophylaxis Heparin subcutaneous Disposition-pending continued clinical improvement. PT on board for functional optimization, the patient is likely to require rehabilitation. PFS on board VS, I&O, 24H, Fishbone Vital Signs/I&O Vital Signs Date Time Temp Pulse Resp B/P (MAP) Pulse Ox O2 Delivery O2 Flow Rate FiO2 07/08/19 06:00 98.2 76 16 123/62 (82) 97 07/06/19 11:13 1.0 I&O- Last 24 Hours up to 6 AM 07/08/19 06:00 Intake Total 1046 ml Output Total 0 ml Balance 1046 ml Laboratory Data 24H LABS Laboratory Tests 2 07/07/19 16:29: Bedside Glucose (Misc Panel) 167H 07/08/19 05:45: Nucleated Red Blood Cells % (auto) 0.3H, Immature Platelet Fraction 2.6, Anion Gap 9, Glomerular Filtration Rate 9.8L, Blood Urea Nitrogen 56H, Creatinine 4.69H, Sodium Level 137, Potassium Level 5.2H, Chloride Level 107, Carbon Dioxide Level 21, Calcium Level 7.0L 07/08/19 06:25: Bedside Glucose (Misc Panel) 157H CBC/BMP Laboratory Tests 07/08/19 05:45 Red Blood Count 3.54 L, Mean Corpuscular Volume 99.2 H, Mean Corpuscular Hemoglobin 29.4, Mean Corpuscular Hemoglobin Concent 29.6 L, Red Cell Distribution Width 19.8 H, Calcium Level 7.0 L JENISE JAIME MD Jul 08, 2019 12:02
[2019-07-08 14:00] VITALS: BP 101/54
[2019-07-08] MEDS: ONDANSETRON 4 MG ORAL DISINTEGRATING TAB (Q0162 PER 1MG) PO PRN (14:25)
[2019-07-08] MEDS: GABAPENTIN 100 MG CAP PO SCH (20:58)
[2019-07-08] MEDS: traZODone 100 MG TAB PO SCH (20:58)
[2019-07-08] MEDS: SIMVASTATIN 20 MG TAB PO SCH (20:59)
[2019-07-08] MEDS: **NOTE PATIENT COMMENT** MISC XX SCH (21:00)
[2019-07-08 22:00] VITALS: BP 109/71
[2019-07-09] MEDS: LEVOTHYROXINE 125MCG TABLET (0.125MG) PO SCH (05:36)
[2019-07-09] MEDS: LINEZOLID 600MG TABLET (ZYVOX) PO SCH (05:37)
[2019-07-09] MEDS: MIDODRINE 5 MG TAB PO SCH ×3 (05:37→16:32)
[2019-07-09] MEDS: rOPINIRole 2MG TAB PO SCH ×2 (05:37→22:46)
[2019-07-09] MEDS: FAMOTIDINE 20 MG TAB PO SCH (05:37)
[2019-07-09] MEDS: OYSTER SHELL CALCIUM 500 MG TAB PO SCH (05:38)
[2019-07-09] MEDS: HEPARIN SOD (PORCINE) 5000 UNITS/ML VIAL SC SCH ×3 (05:39→22:00)
[2019-07-09] MEDS: LIDOCAINE 5% (LIDODERM) PATCH TD SCH (05:40)
[2019-07-09 06:00] VITALS: BP 106/69
[2019-07-09] MEDS ORDERED: CEFEPIME IV SCH (06:00)
[2019-07-09 06:15] LABS: HEMATOCRIT 33.7 % (36.0-47.0); HEMOGLOBIN 10.1 g/dl (12.0-15.5); MEAN CORPUSCULAR HEMOGLOBIN 29.9 pg (27.0-33.0); MEAN CORPUSCULAR VOLUME 99.7 fl (80.0-96.0); RED BLOOD COUNT 3.38 10^6/uL (4.00-5.40); WHITE BLOOD COUNT 7.7 10^3/uL (4.0-10.0)
[2019-07-09 06:39] LABS: CALCIUM LEVEL 6.8 MG/DL (8.8-10.2); CREATININE FOR GFR 5.57 MG/DL (0.55-1.30); POTASSIUM SERUM 5.7 MEQ/L (3.5-5.1)
[2019-07-09 06:51] LABS: PLATELET COUNT, AUTOMATED 87 10^3/uL (150-450)
[2019-07-09] MEDS: ALBUTEROL SULFATE 2.5 MG/0.5 ML INH NEB SOLN NEB SCH ×4 (07:45→20:43)
[2019-07-09] MEDS: HumaLOG INSULIN (NovoLOG) PER UNIT SC SCH ×4 (07:56→21:00)
[2019-07-09] MEDS: LEVEMIR (INSULIN DETEMIR) 1 UNITS/0.01ML SC SCH ×2 (08:09→22:49)
--- NOTE | 2019-07-09 08:55 | IPN ---
DATE OF VISIT: 07/07/2019 Mrs. Hernandez is seen this morning on her bedside. She is feeling better, however discouraged with her overall condition. She had paracentesis done 2 days ago and abdomen has filled up once with ascites. She has pain in her right knee but able to move it with slowly. She has cellulitis and bursitis on her right knee. She has been on antibiotic therapy. Her left leg stump is being treated with wound vacuum-assisted closure (VAC) dressings due to nonhealing and infected wound. She has end-stage renal disease and was dialyzed yesterday. On physical exam, temperature 99.2 degrees Fahrenheit, heart rate 92 per minute and respiratory rate 18 per minute. Blood pressure 102/55 mmHg and oxygen saturation 93% on room air. Head is atraumatic. Neck is supple and jugular venous distention (JVD) mildly elevated. She has no oral thrush or ulcers. Heart sounds are regular. Lungs with slightly diminished breath sounds at bases. Abdomen soft, distended with large amount of ascites, and bowel sounds are present. Extremities have no cyanosis or clubbing. There is a dressing on the right leg and left leg stump has wound VAC dressing. Neurologically, she is at her baseline mentation. Today's labs show WBC count 9.8, hemoglobin 9.9, and hematocrit 33.6. Platelets 112. Sodium 141, potassium 4.8, CO2 22, BUN 38, and creatinine 3.57. PROBLEMS: 1. End-stage renal disease. Patient was dialyzed yesterday and next dialysis will be scheduled for Tuesday. At this point, there is no emergent need for dialysis today. 2. Congestive heart failure. Her volume status is clinically well-compensated and there is no emergent need for dialysis or ultrafiltration today. She will continue with oral fluid restriction of 1500 mL per day. 3. Cirrhosis of liver with recurrent ascites. This a chronic issue and she requires paracentesis almost every week. She had a paracentesis done on and will probably need another one next week. 4. Anemia. Her anemia is stable at this point and we will continue to manage with dialysis. All other issues are being addressed by the hospitalist service.
--- NOTE | 2019-07-09 13:55 | IPNPDOC ---
Subjective Date Seen The patient was seen on 07/09/19. Subjective Chief Complaint/HPI Patient seen and examined at the bedside. No acute overnight events noted. Objective Physical Examination General Exam: Positive: Alert, Cooperative, No Acute Distress ENT Exam: Positive: Atraumatic, Mucous membr. moist/pink Chest Exam: Positive: Clear to auscultation, Normal air movement Heart Exam: Positive: Rate Normal, Normal S1, Normal S2 Abdomen Exam: Positive: Normal bowel sounds, Soft (obese, NT , distended with anasarca,1-2+ pitting edema; no ascites wave demonstrated on exam;) Extremity Exam: Positive: Swelling, Other (left BKA stump with wound vac and mild erythema to thigh but no sharp demarcation; Right pretib with warm,erythema, weeping blisters; right toes with hard diabetic callouses but no necrotic tissues noted. Right foot with open diabetic ulcer to bottom of hallux, no active drainage) Psych Exam: Positive: Mental status NL, Mood NL, Oriented x 3 Assessment /Plan Plan/VTE VTE Prophylaxis Ordered?: Yes Plan Hx of LLE BKA, admitted for cellulitis of the stump s/p Dr Estrella consulted; surgical debridement on 06/27/19, s/p wound vac placement---no cultures available from the procedure s/p zyvox/cefepime trial Patient has remained Afebrile and WBC has improved We will cont to monitor Right Knee Pain 2/2 prepatella bursitis Attempt was made to aspirate joint on 06/29/19 by Orthopedic Surgery however no fluid was able to be obtained Right knee appears to be improving with supportive measures and s/p abx coverage-->Ortho contacted about this, input appreciated We will follow up with recommendations ESRD Nephrology on board for dialysis Endstage liver disease s/p paracentesis with 7 liters removed on 06/29/19 s/p paracentesis of 6.8L removed on 07/05/19 We will continue to monitor the patient's fluid status Interstitial lung disease Cont IS, NEBs, Diabetes with skilled nursing insulin, hyperglycemia, diabetic nephropathy Cont levemir, SSI; BS stable Right diabetic foot ulcer present on admission Podiatry on board, debrided. No cultures sent. Dressing changes per podiatry Anemia of chronic disease Transfused 2 unit pRBC's on 06/28/19 Hgb stable since then Hypothyroidism Continue levothyroxine Dyslipidemia Continue statin Restless leg syndrome Continue ropinirole Thrombocytopenia likely 2/2 Linezolid The patient's platelets have been downtrending since Linezolid was started No indication for transfusion at this time, we will cont to monitor DVT prophylaxis Heparin subcutaneous Disposition-pending continued clinical improvement. PT on board for functional optimization, the patient is likely to require rehabilitation. PFS on board VS, I&O, 24H, Fishbone Vital Signs/I&O Vital Signs Date Time Temp Pulse Resp B/P (MAP) Pulse Ox O2 Delivery O2 Flow Rate FiO2 07/09/19 06:00 98.1 81 16 106/69 (81) 98 07/06/19 11:13 1.0 I&O- Last 24 Hours up to 6 AM 07/09/19 06:00 Intake Total 1020 ml Balance 1020 ml Laboratory Data 24H LABS Laboratory Tests 2 07/08/19 16:46: Bedside Glucose (Misc Panel) 170H 07/08/19 20:34: Bedside Glucose (Misc Panel) 179H 07/09/19 05:46: Nucleated Red Blood Cells % (auto) 0.3H, Immature Platelet Fraction 2.6, Anion Gap 12, Glomerular Filtration Rate 8.0L, Blood Urea Nitrogen 70H, Creatinine 5.57H, Sodium Level 137, Potassium Level 5.7H, Chloride Level 107, Carbon Dioxide Level 18L, Calcium Level 6.8L 07/09/19 12:59: Bedside Glucose (Misc Panel) 157H CBC/BMP Laboratory Tests 07/09/19 05:46 Red Blood Count 3.38 L, Mean Corpuscular Volume 99.7 H, Mean Corpuscular Hemoglobin 29.9, Mean Corpuscular Hemoglobin Concent 30.0 L, Red Cell Distribution Width 19.6 H, Calcium Level 6.8 L JENISE JAIME MD Jul 09, 2019 13:55
[2019-07-09 14:00] VITALS: BP 114/62
[2019-07-09] MEDS: SILVER SULFADIAZINE 1% CR 50 GM JAR TOP SCH ×2 (14:45→21:00)
[2019-07-09] MEDS: oxyCODONE 5MG TAB PO PRN ×2 (16:32→23:10)
--- NOTE | 2019-07-09 20:33 | IPN ---
DATE: 07/08/2019 Mrs. Hernandez is seen this morning on her bedside. She is sitting in her bed coloring her artwork. She denies any dyspnea or chest pain. She does have abdominal distension due to recurrent ascites. She denies any nausea or vomiting. PHYSICAL EXAMINATION: Temperature 98.2 degrees Fahrenheit, heart rate 76 per minute and respiratory rate 16 per minute. Blood pressure 123/62 mmHg and oxygen saturation 97% on room air. Head is atraumatic. She is legally blind. There is no oral thrush or ulcers. Neck is supple and JVD is mildly elevated. Heart sounds are regular and lungs sound clear to auscultation. Abdomen markedly distended with large amount of ascites which is nontender and bowel sounds are present. Extremities have no cyanosis or clubbing. Neurologically she is at her baseline mentation. Today's labs show WBC count 7.6, hemoglobin 10.4 and hematocrit 35.1. Platelets 97,000. Sodium 137, potassium 5.2, CO2 21, BUN 56 and creatinine 4.69. PROBLEMS: 1. End-stage renal disease. The patient is regularly dialyzed on Tuesday, Tuesday and Tuesday schedule. She is due for dialysis tomorrow. 2. Hyperkalemia. She has mild hyperkalemia which will be corrected with dialysis and no other intervention will be needed today. The patient understands to follow a low potassium diet. 3. Congestive heart failure. Volume status is very well compensated and no intervention is needed at present. We will continue to manage her volume status with dialysis. When she is home her volume status gets decompensated due to noncompliance with dialysis treatments and fluid restrictions. 4. Cirrhosis of liver with recurrent ascites. The patient is requiring weekly paracentesis and had her paracentesis done just 3 days ago. 5. Anemia. Anemia is stable at present and we will continue to monitor closely and manage with dialysis. She is receiving Aranesp once a week.
[2019-07-09] MEDS: **NOTE PATIENT COMMENT** MISC XX SCH (21:00)
[2019-07-09 22:00] VITALS: BP 110/59
[2019-07-09] MEDS: GABAPENTIN 100 MG CAP PO SCH (22:45)
[2019-07-09] MEDS: SIMVASTATIN 20 MG TAB PO SCH (22:46)
[2019-07-09] MEDS: traZODone 100 MG TAB PO SCH (22:46)
--- NOTE | 2019-07-10 00:09 | IPN ---
DATE: 07/09/2019 Mrs. Hernandez is seen this morning during hemodialysis. Her blood pressure was low and she vomited earlier but now she feels better. She denies any fever or chills. PHYSICAL EXAMINATION: Temperature 98.1 degrees Fahrenheit, heart rate 80 per minute and respiratory rate 16 per minute. Blood pressure was down to 80 mmHg earlier. However, now it is up to 100/60 mmHg and oxygen saturation is 98% on room air. Head is atraumatic. Neck is supple and jugular venous distention (JVD) is not elevated. Heart sounds are regular and lungs clear to auscultation. Abdomen: Distended with large amount of ascites, which is nontender and bowel sounds are present. Extremities: Have no cyanosis. Her left leg stump has wound VAC dressing. Right knee area erythema is gradually improving. Today's labs show a WBC count of 7.7, hemoglobin 10.1 and hematocrit 33.7. Sodium 137, potassium 5.7, CO2 18, BUN 70 and creatinine 5.57. Glucose 162 and calcium 6.8. PROBLEM #1: End-stage renal disease. The patient is being dialyzed today, which is her regular dialysis day. She will complete her dialysis treatment for 3-1/2 hours. PROBLEM #2: Hyperkalemia. This is related to end-stage renal disease and will be corrected with dialysis today. She is being dialyzed with a 2.0 mEq potassium bath. PROBLEM #3: Anemia. Her anemia has improved and currently stable. We will continue Aranesp once a week. PROBLEM #4: Ascites with a history of cirrhosis. She has recurrent ascites requiring weekly paracentesis. She is likely to require paracentesis again later this week. PROBLEM #5: Cellulitis and infected leg wounds. The patient remains with wound VAC dressing on her left leg stump. Zyvox and cefepime have been stopped now. I will defer to hospitalist service and surgery for any decisions about antibiotics.
[2019-07-10 06:00] VITALS: BP 117/63
[2019-07-10] MEDS: HEPARIN SOD (PORCINE) 5000 UNITS/ML VIAL SC SCH ×3 (06:00→22:00)
[2019-07-10] MEDS: oxyCODONE 5MG TAB PO PRN (06:08)
[2019-07-10] MEDS: LEVOTHYROXINE 125MCG TABLET (0.125MG) PO SCH (06:09)
[2019-07-10 07:00] LABS: HEMATOCRIT 31.4 % (36.0-47.0); HEMOGLOBIN 9.4 g/dl (12.0-15.5); MEAN CORPUSCULAR HEMOGLOBIN 29.3 pg (27.0-33.0); MEAN CORPUSCULAR HGB CONC 29.9 g/dl (32.0-36.5); MEAN CORPUSCULAR VOLUME 97.8 fl (80.0-96.0); RED BLOOD COUNT 3.21 10^6/uL (4.00-5.40); WHITE BLOOD COUNT 7.7 10^3/uL (4.0-10.0)
[2019-07-10 07:04] LABS: PLATELET COUNT, AUTOMATED 85 10^3/uL (150-450)
[2019-07-10 07:20] LABS: CALCIUM LEVEL 7.3 MG/DL (8.8-10.2); CREATININE FOR GFR 4.14 MG/DL (0.55-1.30); GLOMERULAR FILTRATION RATE 11.3 (>39); POTASSIUM SERUM 4.9 MEQ/L (3.5-5.1)
[2019-07-10] MEDS: ALBUTEROL SULFATE 2.5 MG/0.5 ML INH NEB SOLN NEB SCH ×3 (07:31→20:01)
[2019-07-10] MEDS: LIDOCAINE 5% (LIDODERM) PATCH TD SCH (09:00)
[2019-07-10] MEDS: HumaLOG INSULIN (NovoLOG) PER UNIT SC SCH ×4 (09:44→21:00)
[2019-07-10] MEDS: LEVEMIR (INSULIN DETEMIR) 1 UNITS/0.01ML SC SCH ×2 (09:45→22:40)
[2019-07-10] MEDS: rOPINIRole 2MG TAB PO SCH ×2 (09:45→22:40)
[2019-07-10] MEDS: MIDODRINE 5 MG TAB PO SCH ×2 (09:45→15:48)
[2019-07-10] MEDS: OYSTER SHELL CALCIUM 500 MG TAB PO SCH (09:45)
[2019-07-10] MEDS: FAMOTIDINE 20 MG TAB PO SCH (09:45)
[2019-07-10] MEDS: NYSTATIN 100,000 UNITS/GM TOPICAL PWD 15 GM TOP PRN ×2 (09:47→22:42)
[2019-07-10 14:00] VITALS: BP 109/51
[2019-07-10] MEDS: ONDANSETRON 4 MG ORAL DISINTEGRATING TAB (Q0162 PER 1MG) PO PRN (14:39)
[2019-07-10] MEDS: SILVER SULFADIAZINE 1% CR 50 GM JAR TOP SCH ×2 (14:40→22:43)
--- NOTE | 2019-07-10 14:43 | IPNPDOC ---
Text Note Date of Service The patient was seen on 07/10/19. NOTE S: Patient states having good day. minimal right knee pain. Today was working with PT on stand/pivot (first day)and increased bleeding from right heel bandage. States increasing pain, skin irritation to buttock and left pannus. States will need paracentesis soon because of increased abdomen girth, fullness and weeping from prior paracentesis site. States no fever, no SOB, noCP. O: Vitals as below General:pleasant,NAD AAOx3 HRRR no murmur LCTA with scant bibase rales Abdomen: distended, NABS, +ascites wave, left abdomen wall with weeping areas covered by bandaid, no erythema Skin: left pannus with macerated erythema; buttock with melepex dressing and area of erythema A/P: fungal dermatitis - no relief with nystop. Will use cortisone/antifungal Hx of LLE BKA, admitted for cellulitis of the stump s/p Dr Estrella consulted; surgical debridement on 06/27/19, s/p wound vac placement---no cultures available from the procedure s/p zyvox/cefepime trial Patient has remained Afebrile and WBC has improved We will cont to monitor Right Knee Pain 2/2 prepatella bursitis and meniscus tear prior to admission Attempt was made to aspirate joint on 06/29/19 by Orthopedic Surgery however no fluid was able to be obtained Right knee appears to be improving with supportive measures, brace and s/p abx coverage-->Ortho contacted about this, input appreciated We will follow up with recommendations ESRD Nephrology on board for dialysis Endstage liver disease s/p paracentesis with 7 liters removed on 06/29/19 s/p paracentesis of 6.8L removed on 07/05/19 repeat paracentesis this week. We will continue to monitor the patient's fluid status Interstitial lung disease Cont IS, NEBs, Diabetes with group home insulin, hyperglycemia, diabetic nephropathy Cont levemir, SSI; BS stable Right diabetic foot ulcer present on admission Podiatry on board, debrided. No cultures sent. Dressing changes per podiatry Anemia of chronic disease Transfused 2 unit pRBC's on 06/28/19 Hgb stable since then Hypothyroidism Continue levothyroxine Dyslipidemia Continue statin Restless leg syndrome Continue ropinirole Thrombocytopenia likely 2/2 Linezolid The patient's platelets have been downtrending since Linezolid was started No indication for transfusion at this time, we will cont to monitor DVT prophylaxis Heparin subcutaneous Disposition-pending continued clinical improvement. PT on board for functional optimization, the patient is likely to require rehabilitation. PFS on board VS,Fishbone, I+O VS, Fishbone, I+O Laboratory Tests 07/10/19 06:41 Red Blood Count 3.21 L, Mean Corpuscular Volume 97.8 H, Mean Corpuscular Hemoglobin 29.3, Mean Corpuscular Hemoglobin Concent 29.9 L, Red Cell Distribution Width 19.6 H, Calcium Level 7.3 L Vital Signs Date Time Temp Pulse Resp B/P (MAP) Pulse Ox O2 Delivery O2 Flow Rate FiO2 07/10/19 07:10 16 07/10/19 06:00 98.0 96 117/63 (81) 98 07/06/19 11:13 1.0 I&O- Last 24 Hours up to 6 AM 07/10/19 06:00 Intake Total 1400 ml Output Total 500 ml Balance 900 ml JEANINE AU DO Jul 10, 2019 14:43
[2019-07-10] MEDS ORDERED: MYCOLOG CREAM 15 GM (NYSTATIN/TRIAMCINOLONE) EXT ONE (15:00)
--- NOTE | 2019-07-10 18:15 | IPN ---
DATE: 07/10/2019 Mrs. Hernandez is seen this morning on her bedside. She is eating breakfast sitting in the bed. She does have abdominal distension due to ascites but denies any other complaints. She vomited yesterday during dialysis, but since then she has been feeling well. She has no dyspnea, chest pain, fever, or chills. PHYSICAL EXAMINATION: Temperature 98 degrees Fahrenheit, heart rate 96 per minute, respiratory rate 16 per minute, blood pressure 117/63 mm of mercury, and oxygen saturation 98% on room air. Head: Atraumatic and neck is supple. Jugular venous distention (JVD) is not abnormally elevated. Heart sounds regular and somewhat tachycardiac. Lungs with slightly diminished breath sounds at bases. Abdomen is distended with large amount of ascites and bowel sounds normal. Extremities without any cyanosis or clubbing. She has a prior left lhech-rev-oavm amputation, and leg stump has a wound vacuum-assisted closure (VAC) dressing. Neurologically, she is at her baseline mentation without a focal deficit. Today's labs show WBC count 7.7, hemoglobin 9.4, hematocrit 31.4, platelets 85,000. Sodium 138, potassium 4.9, CO2 of 20, BUN 52, and creatinine 4.14. Glucose 139 and calcium 7.3. PROBLEMS: 1. End-stage renal disease. The patient was dialyzed yesterday, and she will be scheduled for next dialysis tomorrow. 2. Hyperkalemia. Her potassium level corrected to high-normal range. She is eating an orange right now, and I have advised her to avoid any oranges or orange juice. She should follow a 2-gram potassium diet. 3. Anemia. Her anemia is stable, and we will continue with Aranesp once a week during dialysis. 4. Cirrhosis of liver with recurrent ascites. Her ascites has increased once again, and she is likely to require another paracentesis this week. Otherwise, her volume status is well compensated. 5. Peripheral vascular disease, status post left yjkwl-dch-[id number] amputation and infected stump. The patient remains on wound VAC dressing and has been seen by surgery. She is currently afebrile. She was on meropenem, which has been now stopped, and currently she is not on any antibiotic.
[2019-07-10] MEDS: **NOTE PATIENT COMMENT** MISC XX SCH (21:00)
[2019-07-10 22:00] VITALS: BP 140/61
[2019-07-10] MEDS: traZODone 100 MG TAB PO SCH (22:41)
[2019-07-10] MEDS: SIMVASTATIN 20 MG TAB PO SCH (22:41)
[2019-07-10] MEDS: GABAPENTIN 100 MG CAP PO SCH (22:41)
[2019-07-10] MEDS: MYCOLOG CREAM 15 GM (NYSTATIN/TRIAMCINOLONE) EXT SCH (22:42)
[2019-07-11] MEDS: MIDODRINE 5 MG TAB PO SCH ×2 (05:22→15:55)
[2019-07-11] MEDS: rOPINIRole 2MG TAB PO SCH ×2 (05:22→22:22)
[2019-07-11] MEDS: OYSTER SHELL CALCIUM 500 MG TAB PO SCH (05:23)
[2019-07-11] MEDS: LEVOTHYROXINE 125MCG TABLET (0.125MG) PO SCH (05:23)
[2019-07-11] MEDS: HEPARIN SOD (PORCINE) 5000 UNITS/ML VIAL SC SCH ×3 (05:23→22:00)
[2019-07-11] MEDS: MYCOLOG CREAM 15 GM (NYSTATIN/TRIAMCINOLONE) EXT SCH ×2 (05:23→22:24)
[2019-07-11] MEDS: FAMOTIDINE 20 MG TAB PO SCH (05:23)
[2019-07-11 06:00] VITALS: BP 127/58
[2019-07-11 07:01] LABS: HEMATOCRIT 34.6 % (36.0-47.0); HEMOGLOBIN 10.1 g/dl (12.0-15.5); MEAN CORPUSCULAR HEMOGLOBIN 29.3 pg (27.0-33.0); MEAN CORPUSCULAR HGB CONC 29.2 g/dl (32.0-36.5); MEAN CORPUSCULAR VOLUME 100.3 fl (80.0-96.0); RED BLOOD COUNT 3.45 10^6/uL (4.00-5.40); WHITE BLOOD COUNT 7.6 10^3/uL (4.0-10.0)
[2019-07-11 07:03] LABS: PLATELET COUNT, AUTOMATED 79 10^3/uL (150-450)
[2019-07-11 07:19] LABS: CALCIUM LEVEL 7.4 MG/DL (8.8-10.2); CREATININE FOR GFR 4.98 MG/DL (0.55-1.30); GLOMERULAR FILTRATION RATE 9.2 (>39); POTASSIUM SERUM 5.7 MEQ/L (3.5-5.1)
[2019-07-11] MEDS: HumaLOG INSULIN (NovoLOG) PER UNIT SC SCH ×4 (07:30→20:18)
[2019-07-11] MEDS: ALBUTEROL SULFATE 2.5 MG/0.5 ML INH NEB SOLN NEB SCH ×4 (07:31→20:10)
[2019-07-11] MEDS: ONDANSETRON 4 MG ORAL DISINTEGRATING TAB (Q0162 PER 1MG) PO PRN (08:18)
[2019-07-11] MEDS: LIDOCAINE 5% (LIDODERM) PATCH TD SCH (08:18)
[2019-07-11] MEDS: LEVEMIR (INSULIN DETEMIR) 1 UNITS/0.01ML SC SCH ×3 (08:23→22:22)
[2019-07-11 14:00] VITALS: BP 132/60
[2019-07-11] MEDS: SILVER SULFADIAZINE 1% CR 50 GM JAR TOP SCH ×2 (15:39→22:23)
--- NOTE | 2019-07-11 18:37 | IPNPDOC ---
Text Note Date of Service The patient was seen on 07/11/19. NOTE S: pateint receiving nebulizer treatment (seen at 1600). states was out of bed to chair for lunch and able to pivot using devices without knee pain. no CP, no SOB, has post dialysis nausea but no vomiting. O: Vitals as below General: pleasant, NAD AAOx3 HRRR LCTA no W/R/R Abdomen: distended, ascites wave, non tender Ext: no ankle edema on right, dressing intact; knee brace intact with mild prepatella swelling; left BKA wound vac intact A/P: Hx of LLE BKA, admitted for cellulitis of the stump s/p Dr Estrella consulted; surgical debridement on 06/27/19, s/p wound vac placement---no cultures available from the procedure s/p zyvox/cefepime completed treatment We will cont to monitor Right Knee Pain 2/2 prepatella bursitis and meniscus tear prior to admission Attempt was made to aspirate joint on 06/29/19 by Orthopedic Surgery however no fluid was able to be obtained Right knee appears to be improving with supportive measures, ortho consulted We will follow up with recommendations ESRD Nephrology on board for dialysis Endstage liver disease s/p paracentesis with 7 liters removed on 06/29/19 s/p paracentesis of 6.8L removed on 07/05/19 repeat paracentesis this week. We will continue to monitor the patient's fluid status All other diagnosis per previous notes - stable disposition: case management working on rehab facility that can provide dialysis, paracentesis, wound vac, etc VS,Hannah, I+O VS, Hannah, I+O Laboratory Tests 07/11/19 06:41 Red Blood Count 3.45 L, Mean Corpuscular Volume 100.3 H, Mean Corpuscular He moglobin 29.3, Mean Corpuscular Hemoglobin Concent 29.2 L, Red Cell Distribution Width 19.6 H, Calcium Level 7.4 L Vital Signs Date Time Temp Pulse Resp B/P (MAP) Pulse Ox O2 Delivery O2 Flow Rate FiO2 07/11/19 14:00 98.2 86 18 132/60 (84) 95 07/06/19 11:13 1.0 I&O- Last 24 Hours up to 6 AM 07/11/19 06:00 Intake Total 360 ml Balance 360 ml JEANINE AU DO Jul 11, 2019 18:37
--- NOTE | 2019-07-11 20:17 | IPN ---
DATE: 07/11/2019 Mrs. Hernandez is seen during dialysis this morning. She was nauseated and vomited again at the start of dialysis. Her blood pressure did go down to about 70/40 mm of mercury. She is now improved after normal saline was given. Her blood pressure has also improved. She is resting comfortably now. PHYSICAL EXAMINATION: Temperature 98 degrees Fahrenheit, heart rate 88 per minute, respiratory rate 16 per minute, blood pressure about 100/60 mm of mercury, and oxygen saturation 98% on room air. Her head is atraumatic. Neck supple and without jugular venous distention (JVD) or thyroid enlargement. Hearts Sounds regular and lungs clear to auscultation. Abdomen distended with large amount of ascites and is nontender. Bowel sounds are present. Extremities without any cyanosis or clubbing. Left leg stump is with wound vacuum-assisted closure (VAC) dressing. Right leg edema has resolved. Today's labs show WBC count 7.6, hemoglobin 10.1, hematocrit 34.6, platelets 79,000. Sodium 138, potassium 5.7, CO2 of 17, BUN 74, and creatinine 4.98. Glucose 100 and calcium 7.4. PROBLEMS: 1. End-stage renal disease. The patient is being dialyzed this morning. She does get nauseated at the start of dialysis and also dropped blood pressure. After normal saline bolus, her blood pressure has improved, and dialysis is now working reasonably well. 2. Hyperkalemia. She has recurrent hyperkalemia, probably related to dietary noncompliance. I am going to restrict her potassium to 2 grams in her diet. She is being dialyzed with 2.0 mEq potassium bath, which will help to correct her hyperkalemia. 3. Anemia. Her anemia is stable and improved. No urgent intervention is indicated. She will continue to receive Aranesp once a week. 4. Cirrhosis of liver with recurrent ascites. The patient is getting weekly paracentesis and is due for paracentesis again maybe tomorrow. She should receive IV albumin in order to prevent hypotension.
[2019-07-11] MEDS: **NOTE PATIENT COMMENT** MISC XX SCH (21:00)
[2019-07-11 22:00] VITALS: BP 123/54
[2019-07-11] MEDS: SIMVASTATIN 20 MG TAB PO SCH (22:22)
[2019-07-11] MEDS: GABAPENTIN 100 MG CAP PO SCH (22:22)
[2019-07-11] MEDS: traZODone 100 MG TAB PO SCH (22:22)
[2019-07-12] MEDS: LEVOTHYROXINE 125MCG TABLET (0.125MG) PO SCH (05:31)
[2019-07-12 06:00] VITALS: BP 118/58
[2019-07-12] MEDS: ALBUTEROL SULFATE 2.5 MG/0.5 ML INH NEB SOLN NEB SCH ×4 (07:26→21:19)
[2019-07-12 07:59] LABS: CALCIUM LEVEL 7.6 MG/DL (8.8-10.2); CREATININE FOR GFR 4.18 MG/DL (0.55-1.30); GLOMERULAR FILTRATION RATE 11.2 (>39); POTASSIUM SERUM 4.8 MEQ/L (3.5-5.1)
[2019-07-12 08:12] LABS: HEMATOCRIT 30.4 % (36.0-47.0); MEAN CORPUSCULAR HEMOGLOBIN 28.8 pg (27.0-33.0); MEAN CORPUSCULAR HGB CONC 29.6 g/dl (32.0-36.5); MEAN CORPUSCULAR VOLUME 97.4 fl (80.0-96.0); RED BLOOD COUNT 3.12 10^6/uL (4.00-5.40); WHITE BLOOD COUNT 6.4 10^3/uL (4.0-10.0)
[2019-07-12] MEDS: HumaLOG INSULIN (NovoLOG) PER UNIT SC SCH ×4 (08:57→20:11)
[2019-07-12] MEDS: LIDOCAINE 5% (LIDODERM) PATCH TD SCH (08:57)
[2019-07-12] MEDS: MIDODRINE 5 MG TAB PO SCH ×2 (08:57→17:29)
[2019-07-12] MEDS: rOPINIRole 2MG TAB PO SCH ×2 (08:57→21:32)
[2019-07-12] MEDS: OYSTER SHELL CALCIUM 500 MG TAB PO SCH (08:58)
[2019-07-12] MEDS: FAMOTIDINE 20 MG TAB PO SCH (08:58)
[2019-07-12] MEDS: LEVEMIR (INSULIN DETEMIR) 1 UNITS/0.01ML SC SCH ×2 (08:58→21:32)
[2019-07-12] MEDS: SILVER SULFADIAZINE 1% CR 50 GM JAR TOP SCH ×2 (08:59→21:33)
[2019-07-12 09:27] LABS: PLATELET COUNT, AUTOMATED 72 10^3/uL (150-450)
[2019-07-12] MEDS: MYCOLOG CREAM 15 GM (NYSTATIN/TRIAMCINOLONE) EXT SCH ×2 (09:55→21:00)
[2019-07-12] MEDS: ONDANSETRON 4 MG ORAL DISINTEGRATING TAB (Q0162 PER 1MG) PO PRN (13:38)
[2019-07-12 14:00] VITALS: BP 115/59
[2019-07-12] MEDS: oxyCODONE 5MG TAB PO PRN (17:30)
--- NOTE | 2019-07-12 17:55 | REP ---
Ultrasound-guided paracentesis The procedure was performed by ANTONIO Sierra, under the direct supervision of Dr. Martinez. The risks and benefits of the procedure were explained to the patient and informed consent was obtained both verbally and written. Directly prior to the start of the procedure, a formal timeout was completed in the procedure room. Under ultrasound guidance, the largest pocket of fluid in the left flank was localized and skin was marked. The skin was then prepped and draped in a sterile fashion. 10 ml of 1% lidocaine was used as a local anesthetic. Using ultrasound guidance, an 8-Afghan multi side-hole catheter was inserted using trocar technique. 6,600 mL of yellow colored fluid was withdrawn and discarded. The patient tolerated the procedure well and there were no immediate complications. After the appropriate monitored convalescence the patient was discharged from the department. Reviewed by ANTONIO Song 07/12/2019 05:42 P Electronically Signed by Vel Martinez MD 07/12/2019 05:47 P
--- NOTE | 2019-07-12 19:00 | IPNPDOC ---
Text Note Date of Service The patient was seen on 07/12/19. NOTE S: pateint heading down for paracentesis. States minimal knee foot pain. O: Vitals as below General: pleasant, NAD Abdomen: soft distended NABS A/P: Endstage liver disease s/p paracentesis with 7 liters removed on 06/29/19 s/p paracentesis of 6.8L removed on 07/05/19 repeat paracentesis pending today 07/12/19. All other problems stable as per note 07/11/19 Disposition - awaiting rehab placement, continue PT/OT, dialysis 3x week, paracentesis weekly, and chronic wound vac. VS,Fishbone, I+O VS, Fishbone, I+O Laboratory Tests 07/12/19 06:23 Red Blood Count 3.12 L, Mean Corpuscular Volume 97.4 H, Mean Corpuscular Hemoglo bin 28.8, Mean Corpuscular Hemoglobin Concent 29.6 L, Red Cell Distribution Width 19.7 H, Calcium Level 7.6 L Vital Signs Date Time Temp Pulse Resp B/P (MAP) Pulse Ox O2 Delivery O2 Flow Rate FiO2 07/12/19 18:38 18 07/12/19 16:42 87 100 07/12/19 15:58 96.9 07/12/19 14:00 115/59 (77) 07/06/19 11:13 1.0 I&O- Last 24 Hours up to 6 AM 07/12/19 06:00 Intake Total 530 ml Output Total 500 ml Balance 30 ml JEANINE AU DO Jul 12, 2019 19:00
--- NOTE | 2019-07-12 19:13 | RO ---
DATE OF PROCEDURE: 06/27/2019 PREOPERATIVE DIAGNOSIS: Nonhealing left below-knee amputation stump wound. POSTOPERATIVE DIAGNOSIS: Nonhealing left below-knee amputation stump wound. PROCEDURE: Excisional debridement left below-knee amputation stump wound with removal of skin, subcutaneous tissue and muscle. SURGEON: Dr. Amira Estrella BLOW UP OPERATOR: None. ANESTHESIA: Monitored anesthesia care (MAC). INDICATION: The patient is a 68-year-old female with diabetes mellitus, end-stage renal disease, liver failure who has a nonhealing left below-knee amputation stump wound who requires debridement. ESTIMATED BLOOD LOSS: 30 mL. IV FLUIDS: 50 mL. HEPARIN: None. COMPLICATION: None. DRAINS: None. SPECIMENS: None. DESCRIPTION OF PROCEDURE: The patient was taken to the operating room, placed supine and the left lower extremity was prepped and draped in a standard surgical fashion. Sharp debridement was performed of the wound with removal of skin, subcutaneous tissue and nonviable muscle down to healthy bleeding tissue. Dressing was then applied. The patient tolerated the procedure well. All instrument, sponge and needle counts were correct at the end the case. There were no complications. Dr. Estrella was present for and directed the entire case. The patient was transferred to the recovery room in stable condition.
--- NOTE | 2019-07-12 20:35 | IPN ---
DATE: 07/12/2019 Mrs. Hernandez is seen this morning. She is sitting in the chair at the time of my visit, coloring her artwork. She denies any dyspnea, chest pain, fever or chills and feels better. She does have abdominal distension and is anticipating a paracentesis today. She reports improvement in the right knee pain and also improvement in the left leg stump healing. PHYSICAL EXAMINATION: Temperature 97 degrees Fahrenheit, heart rate 83 per minute and respiratory rate 18 per minute. Blood pressure 118/58 mmHg and oxygen saturation 97% on room air. Head is atraumatic. Neck is supple and without jugular venous distention (JVD) or thyroid enlargement. Heart sounds regular. Lungs are clear to auscultation. Abdomen is distended with large amount of ascites and bowel sounds are present. Extremities have no cyanosis or clubbing. Left leg stump has wound vacuum-assisted closure (VAC) dressing. Right foot wound is covered with a dressing and she is wearing a brace on her right knee. LABORATORY DATA: Today's laboratories show WBC count 6.4, hemoglobin 9.0 and hematocrit 30.4. Platelets 72,000. Sodium 139, potassium 4.8, CO2 19, BUN 56 and creatinine 4.18. Glucose 127 and calcium 7.6. PROBLEMS: 1. End-stage renal disease. The patient was dialyzed yesterday and her next dialysis will be scheduled for tomorrow. Her volume status is well-compensated. 2. Hyperkalemia, corrected and improved with dialysis yesterday. No intervention is indicated. She has been placed on a two-gram potassium diet. 3. Anemia. Her anemia has been relatively stable and we will continue to manage with Aranesp once a week. 4. Cirrhosis of liver with recurrent ascites. The patient has been getting paracentesis on a weekly basis and she is likely to get paracentesis again today.
[2019-07-12] MEDS: SIMVASTATIN 20 MG TAB PO SCH (21:31)
[2019-07-12] MEDS: traZODone 100 MG TAB PO SCH (21:32)
[2019-07-12] MEDS: GABAPENTIN 100 MG CAP PO SCH (21:32)
[2019-07-12] MEDS: **NOTE PATIENT COMMENT** MISC XX SCH (21:33)
[2019-07-12] MEDS: HEPARIN SOD (PORCINE) 5000 UNITS/ML VIAL SC SCH (21:33)
[2019-07-12 22:00] VITALS: BP 117/59
[2019-07-13] MEDS: oxyCODONE 5MG TAB PO PRN ×2 (01:43→21:30)
[2019-07-13] MEDS: HEPARIN SOD (PORCINE) 5000 UNITS/ML VIAL SC SCH ×3 (05:29→22:00)
[2019-07-13 06:00] VITALS: BP 107/56
[2019-07-13] MEDS: OYSTER SHELL CALCIUM 500 MG TAB PO SCH (06:33)
[2019-07-13] MEDS: MIDODRINE 5 MG TAB PO SCH ×2 (06:33→16:36)
[2019-07-13] MEDS: LEVOTHYROXINE 125MCG TABLET (0.125MG) PO SCH (06:33)
[2019-07-13] MEDS: FAMOTIDINE 20 MG TAB PO SCH (06:33)
[2019-07-13] MEDS: MYCOLOG CREAM 15 GM (NYSTATIN/TRIAMCINOLONE) EXT SCH ×2 (06:34→20:28)
[2019-07-13] MEDS: LIDOCAINE 5% (LIDODERM) PATCH TD SCH (06:34)
[2019-07-13] MEDS: rOPINIRole 2MG TAB PO SCH ×2 (06:36→20:27)
[2019-07-13] MEDS: ALBUTEROL SULFATE 2.5 MG/0.5 ML INH NEB SOLN NEB SCH ×4 (08:17→22:39)
[2019-07-13] MEDS: LEVEMIR (INSULIN DETEMIR) 1 UNITS/0.01ML SC SCH ×2 (08:28→20:31)
[2019-07-13] MEDS: HumaLOG INSULIN (NovoLOG) PER UNIT SC SCH ×4 (08:28→21:00)
[2019-07-13] MEDS: SILVER SULFADIAZINE 1% CR 50 GM JAR TOP SCH ×2 (08:29→23:23)
[2019-07-13] MEDS ORDERED: LIDOCAINE 1% SDV 5 ML VIAL SQ ONE (10:00)
[2019-07-13] MEDS ORDERED: HEPARIN 1,000 UNITS/ML 10ML VIAL (FOR RADIOLOGY& DIALYSIS ONLY) IV ONE (10:00)
[2019-07-13 14:00] VITALS: BP 115/57
--- NOTE | 2019-07-13 19:38 | IPNPDOC ---
Text Note Date of Service The patient was seen on 07/13/19. NOTE S: patient developing bed sore. She states too painful to move. Encouraged her to sit out in chair. She had dialysis today and states no nausea, feels good and is coloring in her therapeutic drawing books. O: Vitals as below General: pleasant, NAD HRRR LCTA Abdomen: soft distended NABS A/P: ESRD - dialysis today - management per DR Grullon. Endstage liver disease s/p paracentesis with 7 liters removed on 06/29/19 s/p paracentesis of 6.8L removed on 07/05/19 repeat paracentesis pending today 07/12/19. All other problems stable as per note 07/11/19 Disposition - awaiting rehab placement, continue PT/OT, dialysis 3x week, paracentesis weekly, and chronic wound vac. VS,Fishbone, I+O VS, Fishbone, I+O Vital Signs Date Time Temp Pulse Resp B/P (MAP) Pulse Ox O2 Delivery O2 Flow Rate FiO2 07/13/19 14:00 99.3 83 16 115/57 (72) 95 I&O- Last 24 Hours up to 6 AM 07/13/19 06:00 Intake Total 390 ml Output Total 0 ml Balance 390 ml JEANINE AU DO Jul 13, 2019 19:38
[2019-07-13] MEDS: SIMVASTATIN 20 MG TAB PO SCH (20:27)
[2019-07-13] MEDS: GABAPENTIN 100 MG CAP PO SCH (20:27)
[2019-07-13] MEDS: traZODone 100 MG TAB PO SCH (20:27)
[2019-07-13] MEDS: NYSTATIN 100,000 UNITS/GM TOPICAL PWD 15 GM TOP PRN (20:27)
[2019-07-13] MEDS: **NOTE PATIENT COMMENT** MISC XX SCH (21:00)
[2019-07-13 22:00] VITALS: BP 105/52
--- NOTE | 2019-07-13 23:12 | IPN ---
DATE: 07/13/2019 Mrs. Hernandez seen this morning during hemodialysis. She is somewhat sleepy and blood pressure has been low. She went down to as low as 66/43 mmHg and has improved to 97/50 right now after getting a fluid bolus of 300 mL normal saline. She had paracentesis yesterday and 6.6 liters fluid was removed. PHYSICAL EXAMINATION Temperature 97 degrees Fahrenheit, heart rate 80 per minute and respiratory rate 18 per minute. Blood pressure 107/56 mmHg and oxygen saturation 96% on room air. Head is atraumatic. Neck is supple and without JVD or thyroid enlargement. Heart: Sounds are regular and lungs with diminished breath sounds. She has poor inspiratory effort. Abdomen: Soft and nontender and bowel sounds present. Extremities: Without any cyanosis or clubbing. The patient did not have any labs done today. Yesterday her hemoglobin was 9.0 and hematocrit 30.4. Sodium 139, potassium 4.8, CO2 of 19, BUN 56 and creatinine 4.18. PROBLEMS: 1. End-stage renal disease. The patient is being dialyzed and she is tolerating her dialysis with slightly low blood pressure. We will try to maintain her blood pressure about 90 mmHg with saline boluses. She has already received one saline bolus. She had 6.6 liters fluid removed with paracentesis yesterday which is likely the cause of her hypotension today. 2. Anemia. Her anemia has been relatively stable. She is receives Aranesp 100 mcg once a week during dialysis and we will continue with the same. 3. Hypotension. This is a chronic issue and she has been started on midodrine 5 mg twice a day. 4. Cirrhosis of liver with recurrent ascites. The patient had a paracentesis done yesterday and 6.6 liters fluid was removed.
[2019-07-14] MEDS: HEPARIN SOD (PORCINE) 5000 UNITS/ML VIAL SC SCH ×3 (05:56→21:25)
[2019-07-14 06:00] VITALS: BP 104/51
[2019-07-14] MEDS: LEVOTHYROXINE 125MCG TABLET (0.125MG) PO SCH (06:00)
[2019-07-14] MEDS: MIDODRINE 5 MG TAB PO SCH ×2 (08:31→17:44)
[2019-07-14] MEDS: rOPINIRole 2MG TAB PO SCH ×2 (08:31→21:24)
[2019-07-14] MEDS: FAMOTIDINE 20 MG TAB PO SCH (08:32)
[2019-07-14] MEDS: OYSTER SHELL CALCIUM 500 MG TAB PO SCH (08:32)
[2019-07-14] MEDS: LEVEMIR (INSULIN DETEMIR) 1 UNITS/0.01ML SC SCH ×2 (08:32→21:25)
[2019-07-14] MEDS: HumaLOG INSULIN (NovoLOG) PER UNIT SC SCH ×5 (08:33→21:00)
[2019-07-14] MEDS: ALBUTEROL SULFATE 2.5 MG/0.5 ML INH NEB SOLN NEB SCH ×4 (08:39→21:46)
[2019-07-14] MEDS: LIDOCAINE 5% (LIDODERM) PATCH TD SCH (10:54)
[2019-07-14] MEDS: NYSTATIN 100,000 UNITS/GM TOPICAL PWD 15 GM TOP PRN ×2 (10:55→21:24)
[2019-07-14] MEDS: SILVER SULFADIAZINE 1% CR 50 GM JAR TOP SCH (10:56)
[2019-07-14] MEDS: MYCOLOG CREAM 15 GM (NYSTATIN/TRIAMCINOLONE) EXT SCH ×2 (10:57→21:24)
[2019-07-14] MEDS: oxyCODONE 5MG TAB PO PRN (13:20)
[2019-07-14 14:00] VITALS: BP 104/51
[2019-07-14] MEDS: GABAPENTIN 100 MG CAP PO SCH (21:24)
[2019-07-14] MEDS: SIMVASTATIN 20 MG TAB PO SCH (21:24)
[2019-07-14] MEDS: traZODone 100 MG TAB PO SCH (21:24)
[2019-07-14] MEDS: **NOTE PATIENT COMMENT** MISC XX SCH (21:25)
[2019-07-14 22:00] VITALS: BP 108/54
[2019-07-15] MEDS: SILVER SULFADIAZINE 1% CR 50 GM JAR TOP SCH ×3 (01:27→21:00)
[2019-07-15 06:00] VITALS: BP 110/55
[2019-07-15] MEDS: HEPARIN SOD (PORCINE) 5000 UNITS/ML VIAL SC SCH ×3 (06:00→22:00)
[2019-07-15] MEDS: LEVOTHYROXINE 125MCG TABLET (0.125MG) PO SCH (06:06)
[2019-07-15] MEDS: ALBUTEROL SULFATE 2.5 MG/0.5 ML INH NEB SOLN NEB SCH ×4 (07:10→20:00)
--- NOTE | 2019-07-15 07:46 | IPNPDOC ---
Text Note Date of Service The patient was seen on 07/14/19. NOTE S: patient more sleepy this afternoon after receiving 5mg oxycodone for knee pain. states not eating lunch or dinner becuase of food choices and requesting regular diet. O: Vitals as below General: somnelent but easily awaken to voice , AAOx3 HRRR LCTA Abdomen distended, soft NT A: 68 yo female with ESRD on dialysis, Cirrhosis with weekly paracentesis, cellulitis of BKA (wound vac in place) and right knee strain with right foot diabetic callous/ulcerations. P Advance regular diet change oxycodone 2.5mg check ammonia level in AM VS,Fishbone, I+O VS, Fishbone, I+O Vital Signs Date Time Temp Pulse Resp B/P (MAP) Pulse Ox O2 Delivery O2 Flow Rate FiO2 07/14/19 14:00 97.8 87 12 104/51 (68 88 I&O- Last 24 Hours up to 6 AM 07/14/19 06:00 Intake Total 620 ml Output Total 0 ml Balance 620 ml JEANINE AU DO Jul 14, 2019 15:54
[2019-07-15 08:34] LABS: HEMATOCRIT 33.7 % (36.0-47.0); HEMOGLOBIN 10.2 g/dl (12.0-15.5); MEAN CORPUSCULAR HEMOGLOBIN 29.7 pg (27.0-33.0); MEAN CORPUSCULAR HGB CONC 30.3 g/dl (32.0-36.5); RED BLOOD COUNT 3.44 10^6/uL (4.00-5.40); WHITE BLOOD COUNT 9.7 10^3/uL (4.0-10.0)
[2019-07-15 08:38] LABS: PLATELET COUNT, AUTOMATED 84 10^3/uL (150-450)
[2019-07-15] MEDS: HumaLOG INSULIN (NovoLOG) PER UNIT SC SCH ×4 (09:00→22:25)
[2019-07-15] MEDS: FAMOTIDINE 20 MG TAB PO SCH (09:00)
[2019-07-15] MEDS: OYSTER SHELL CALCIUM 500 MG TAB PO SCH (09:00)
[2019-07-15] MEDS: rOPINIRole 2MG TAB PO SCH ×2 (09:00→22:24)
[2019-07-15] MEDS: MIDODRINE 5 MG TAB PO SCH ×3 (09:01→16:07)
[2019-07-15] MEDS: LIDOCAINE 5% (LIDODERM) PATCH TD SCH (09:01)
[2019-07-15] MEDS: NYSTATIN 100,000 UNITS/GM TOPICAL PWD 15 GM TOP PRN ×2 (09:02→22:27)
[2019-07-15] MEDS: LEVEMIR (INSULIN DETEMIR) 1 UNITS/0.01ML SC SCH ×2 (09:02→22:25)
[2019-07-15] MEDS: MYCOLOG CREAM 15 GM (NYSTATIN/TRIAMCINOLONE) EXT SCH ×2 (09:03→22:26)
[2019-07-15 09:20] LABS: ALBUMIN 1.8 GM/DL (3.2-5.2); BILIRUBIN,TOTAL 0.4 MG/DL (0.2-1.0); CALCIUM LEVEL 7.2 MG/DL (8.8-10.2); CREATININE FOR GFR 4.91 MG/DL (0.55-1.30); GLOMERULAR FILTRATION RATE 9.3 (>39); POTASSIUM SERUM 4.9 MEQ/L (3.5-5.1); TOTAL PROTEIN 5.4 GM/DL (6.4-8.2)
--- NOTE | 2019-07-15 11:12 | IPN ---
DATE OF VISIT: 07/14/2019 Mrs. Hernandez is seen this morning on her bedside. She is feeling well and denies any nausea or vomiting. She was nauseated during dialysis yesterday; however, after that she felt well. She denies any fever or chills. On physical examination, temperature 96.8 degrees Fahrenheit, heart rate 88 per minute and respiratory rate 16 per minute. Blood pressure 104/51 mmHg and oxygen saturation 92% on room air. Head is atraumatic. Neck is supple and without jugular venous distention (JVD) or thyroid enlargement. Heart sounds are regular and lungs clear to auscultation. Abdomen soft and mildly distended with ascites. Bowel sounds are normal. It is important to note that she had a paracentesis done on with 6.6 liters of fluid removal. Neurologically, she is awake, alert and oriented times three. She did not have any new labs done today. PROBLEMS: 1. End-stage renal disease. The patient was dialyzed yesterday and next dialysis will be scheduled for Tuesday. Volume status is well-compensated. 2. Cirrhosis with recurrent ascites. The patient had a paracentesis of 6.6 liters on . Her ascites is significantly improved at present. This is a chronic issue and she requires weekly paracentesis. 3. Anemia. Anemia has been treated with Aranesp once a week. We will continue with the same. 4. Hypotension. Her blood pressure has been relatively low. I am going to increase her midodrine dose to 5 mg three times a day. She should get her dose prior to dialysis every time as she does get hypotensive at the start of dialysis. 5. Infected wounds. The patient remains with a wound Vac dressing on her left leg stump. She is currently afebrile and now off antibiotics.
[2019-07-15] MEDS: ONDANSETRON 4 MG ORAL DISINTEGRATING TAB (Q0162 PER 1MG) PO PRN (12:00)
--- NOTE | 2019-07-15 13:54 | IPNPDOC ---
Text Note Date of Service The patient was seen on 07/15/19. NOTE S: patient states too weak to get out of bed without PT and worried nursing staff doesn't know how to use pivot board, and will twist her knee. States having knee pain radiating to thigh on right lateral side. States occasional fecal incontinence with coughing. no CP, no SOB, no Abdomen pain, no N, noV O: Vitals as below General: pleasant NAD AAOx3 HRRR LCTA Abdomen soft NT ND NABS Ext: right foot - lightly wrapped with kurlex guaze; knee with prepatella swelling; left BKA A/P: Hx of LLE BKA, admitted for cellulitis of the stump s/p Dr Estrella consulted; surgical debridement on 06/27/19, s/p wound vac placement---no cultures available from the procedure s/p zyvox/cefepime - completed antibiotic treatment; remains Afebrile and WBC has improved We will cont to monitor Right Knee Pain 2/2 prepatella bursitis and meniscus tear prior to admission Attempt was made to aspirate joint on 06/29/19 by Orthopedic Surgery however no fluid was able to be obtained Right knee appears to be improving with supportive measures, brace and s/p abx coverage-->Ortho contacted about this, input appreciated We will follow up with recommendations ESRD Nephrology on board for dialysis Endstage liver disease s/p paracentesis with 7 liters removed on 06/29/19 s/p paracentesis of 6.8L removed on 07/05/19 s/p paracentesis of 6.6L on 07/12/19 repeat paracentesis this week. 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 No cultures sent. Dressing changes per podiatry Anemia of chronic disease Transfused 2 unit pRBC's on 06/28/19 Hgb stable since then; on arnesp and management by nephrology Hypothyroidism Continue levothyroxine Dyslipidemia Continue statin Restless leg syndrome Continue ropinirole DVT prophylaxis Heparin subcutaneous Disposition-pending continued clinical improvement. PT on board for functional optimization, the patient is likely to require rehabilitation. PFS on board VS,Fishbone, I+O VS, Fishbone, I+O Laboratory Tests 07/15/19 08:19 Red Blood Count 3.44 L, Mean Corpuscular Volume 98.0 H, Mean Corpuscular Hemoglobin 29.7, Mean Corpuscular Hemoglobin Concent 30.3 L, Red Cell Distributi on Width 19.3 H, Calcium Level 7.2 L, Aspartate Amino Transf (AST/SGOT) 35, Alanine Aminotransferase (ALT/SGPT) 42, Alkaline Phosphatase 467 H, Total Bilirubin 0.4, Total Protein 5.4 L, Albumin 1.8 L Vital Signs Date Time Temp Pulse Resp B/P (MAP) Pulse Ox O2 Delivery O2 Flow Rate FiO2 07/15/19 06:00 98.1 87 17 110/55 (76) 92 I&O- Last 24 Hours up to 6 AM 07/15/19 06:00 Intake Total 440 ml Balance 440 ml JEANINE AU DO Jul 15, 2019 13:53
[2019-07-15 14:00] VITALS: BP 108/55
[2019-07-15] MEDS: oxyCODONE 5MG TAB PO PRN ×2 (16:07→22:26)
[2019-07-15] MEDS: **NOTE PATIENT COMMENT** MISC XX SCH (21:00)
[2019-07-15 22:00] VITALS: BP 111/56
[2019-07-15] MEDS: traZODone 100 MG TAB PO SCH (22:24)
[2019-07-15] MEDS: SIMVASTATIN 20 MG TAB PO SCH (22:24)
[2019-07-15] MEDS: GABAPENTIN 100 MG CAP PO SCH (22:24)
[2019-07-16 06:00] VITALS: BP 110/56
[2019-07-16] MEDS: HEPARIN SOD (PORCINE) 5000 UNITS/ML VIAL SC SCH ×3 (06:00→21:28)
[2019-07-16] MEDS: LEVOTHYROXINE 125MCG TABLET (0.125MG) PO SCH (06:28)
[2019-07-16] MEDS: FAMOTIDINE 20 MG TAB PO SCH (06:28)
[2019-07-16] MEDS: OYSTER SHELL CALCIUM 500 MG TAB PO SCH (06:28)
[2019-07-16] MEDS: MIDODRINE 5 MG TAB PO SCH ×3 (06:28→16:52)
[2019-07-16] MEDS: rOPINIRole 2MG TAB PO SCH ×2 (06:29→21:27)
[2019-07-16] MEDS: LIDOCAINE 5% (LIDODERM) PATCH TD SCH (06:30)
[2019-07-16] MEDS: ALBUTEROL SULFATE 2.5 MG/0.5 ML INH NEB SOLN NEB SCH ×5 (07:22→20:00)
[2019-07-16] MEDS: ONDANSETRON 4 MG ORAL DISINTEGRATING TAB (Q0162 PER 1MG) PO PRN (08:08)
[2019-07-16] MEDS: HumaLOG INSULIN (NovoLOG) PER UNIT SC SCH ×4 (08:09→21:00)
[2019-07-16] MEDS: MYCOLOG CREAM 15 GM (NYSTATIN/TRIAMCINOLONE) EXT SCH (08:10)
[2019-07-16] MEDS: SILVER SULFADIAZINE 1% CR 50 GM JAR TOP SCH ×2 (08:10→21:28)
[2019-07-16] MEDS: LEVEMIR (INSULIN DETEMIR) 1 UNITS/0.01ML SC SCH ×2 (08:10→21:28)
[2019-07-16] MEDS ORDERED: HEPARIN 1,000 UNITS/ML 10ML VIAL (FOR RADIOLOGY& DIALYSIS ONLY) IV ONE (12:15)
[2019-07-16] MEDS: oxyCODONE 5MG TAB PO PRN (13:35)
[2019-07-16] MEDS ORDERED: PILL CUTTER 1 EACH XX PRN (13:45)
[2019-07-16 14:00] VITALS: BP 110/57
--- NOTE | 2019-07-16 20:06 | IPNPDOC ---
Text Note Date of Service The patient was seen on 07/16/19. NOTE S: patient seen and examined at 0830 and getting ready to use pivot board to get out of bed to chair. Feeling stronger today. Scheduled for dialysis this AM. O: Vitals as below General: pleasant NAD AAOx3 HRRR LCTA A/P: Hx of [place] SYED, admitted for cellulitis of the stump s/p Dr Estrella consulted; surgical debridement on 06/27/19, s/p wound vac placement---no cultures available from the procedure s/p zyvox/cefepime - completed antibiotic treatment; remains Afebrile and WBC has improved We will cont to monitor Right Knee Pain 2/2 prepatella bursitis and meniscus tear prior to admission Attempt was made to aspirate joint on 06/29/19 by Orthopedic Surgery however no fluid was able to be obtained Right knee appears to be improving with supportive measures, brace and s/p abx coverage-->Ortho contacted about this, input appreciated We will follow up with recommendations ESRD Nephrology on board for dialysis Endstage liver disease s/p paracentesis with 7 liters removed on 06/29/19 s/p paracentesis of 6.8L removed on 07/05/19 s/p paracentesis of 6.6L on 07/12/19 repeat paracentesis this week. We will continue to monitor the patient's fluid status Interstitial lung disease Cont IS, NEBs, Diabetes with nursing home insulin, hyperglycemia, diabetic nephropathy Cont levemir, SSI; BS stable Right diabetic foot ulcer present on admission Podiatry on board, debrided. No cultures sent. Dressing changes per podiatry Anemia of chronic disease Transfused 2 unit pRBC's on 06/28/19 Hgb stable since then; on arnesp and management by nephrology Hypothyroidism Continue levothyroxine Dyslipidemia Continue statin Restless leg syndrome Continue ropinirole DVT prophylaxis Heparin subcutaneous Disposition. PT on board for functional optimization, the patient is likely to require rehabilitation. PFS on board; consider changing to ALC status VS,Fishbone, I+O VS, Fishbone, I+O Vital Signs Date Time Temp Pulse Resp B/P (MAP) Pulse Ox O2 Delivery O2 Flow Rate FiO2 07/16/19 14:35 16 07/16/19 14:00 97.1 77 110/57 (74) 91 I&O- Last 24 Hours up to 6 AM 07/16/19 06:00 Intake Total 480 ml Balance 480 ml JEANINE AU DO Jul 16, 2019 20:06
--- NOTE | 2019-07-16 21:17 | IPN ---
DATE: 07/15/2019 Mrs. Hernandez is seen this afternoon on her bedside. She is feeling nauseated once again. Her blood pressure has been reasonably stable and her midodrine dose was increased to 5 mg three times a day yesterday. She does get hypotensive early in the start of dialysis and requires fluid boluses. She also gets episodes of vomiting during dialysis. However, she did not vomit during her last dialysis on Tuesday. She denies any dyspnea, chest pain or abdominal pain. PHYSICAL EXAMINATION: Temperature 98 degrees Fahrenheit, heart rate 87 per minute and respiratory rate 17 per minute. Blood pressure 110/55 mmHg and oxygen saturation 92% on room air. Head is atraumatic. There is no oral thrush or ulcers. Neck is supple and without JVD or thyroid enlargement. Heart sounds are regular and lungs clear to auscultation. Abdomen is soft and nontender. Ascites is present. Extremities without any cyanosis or clubbing. Today's labs show WBC count 9.7, hemoglobin 10.2 and hematocrit 33.7. Platelets 84. Sodium 137, potassium 4.9, CO2 26, BUN 47 and creatinine 4.91. Ammonia level was 19 today. Total protein 5.4 and albumin 1.8. PROBLEMS: 1. End-stage renal disease. The patient is due for dialysis tomorrow and we will schedule her dialysis for tomorrow. There is no emergent need for dialysis today. 2. Hypotension. Blood pressure is reasonable and she will continue with midodrine 5 mg three times a day. She should be given her dose just prior to dialysis. 3. Nausea, most likely this is related to diabetic gastroparesis. She is being treated symptomatically. 4. Anemia. Her anemia is stable at present and is being managed with dialysis. No changes are being made today. She receives Aranesp 100 mcg once a week which will be continued. 5. Cirrhosis of liver with recurrent ascites. She had a paracentesis done on and her ascites is only moderate at present. No urgent intervention is needed.
[2019-07-16] MEDS: SIMVASTATIN 20 MG TAB PO SCH (21:27)
[2019-07-16] MEDS: GABAPENTIN 100 MG CAP PO SCH (21:27)
[2019-07-16] MEDS: traZODone 100 MG TAB PO SCH (21:27)
[2019-07-16] MEDS: **NOTE PATIENT COMMENT** MISC XX SCH (21:28)
[2019-07-16 22:00] VITALS: BP 114/58
[2019-07-17] MEDS: LEVOTHYROXINE 125MCG TABLET (0.125MG) PO SCH (05:59)
[2019-07-17] MEDS: HEPARIN SOD (PORCINE) 5000 UNITS/ML VIAL SC SCH ×3 (05:59→21:34)
[2019-07-17 06:00] VITALS: BP 104/54
--- NOTE | 2019-07-17 06:02 | IPN ---
DATE OF VISIT: 07/16/2019 Mrs. Hernandez is seen this morning during hemodialysis. She is resting comfortably and denies any problems. She did not have nausea or vomiting during dialysis today. She denies any fever, chills, dyspnea or chest pain. PHYSICAL EXAMINATION: Vital signs: Temperature 97.4 degrees Fahrenheit, heart rate 74 per minute and respiratory rate 18 per minute. Blood pressure about 100/56 mmHg and oxygen saturation 91%. Head: Head is atraumatic. NecK: Neck is supple and without jugular venous distention (JVD) or thyroid enlargement. Heart: Sounds are regular. Lungs: Clear to auscultation. Abdomen: Soft, distended with ascites and nontender. Bowel sounds are present. Extremities: Without any cyanosis or clubbing. The left leg stump has wound vacuum assisted closure (vac) dressing. LABORATORY DATA: The patient did not have any new labs today. PROBLEMS: 1. End-stage renal disease. The patient is being dialyzed today and she will complete her 3-1/2-hour dialysis treatment. Her volume status is well-compensated and we are not removing any fluid today. 2. Cirrhosis of liver with recurrent ascites. The patient had paracentesis done last week and likely to require paracentesis again. 3. Hypotension. This is a chronic issue and she has been on midodrine 5 mg three times a day which should be continued. 4. Anemia. Her anemia is stable and does not need any urgent intervention. She will continue with her weekly dose of Aranesp during dialysis.
[2019-07-17] MEDS: HumaLOG INSULIN (NovoLOG) PER UNIT SC SCH ×4 (07:38→21:36)
[2019-07-17] MEDS: FAMOTIDINE 20 MG TAB PO SCH (07:38)
[2019-07-17] MEDS: LEVEMIR (INSULIN DETEMIR) 1 UNITS/0.01ML SC SCH ×2 (07:38→21:35)
[2019-07-17] MEDS: OYSTER SHELL CALCIUM 500 MG TAB PO SCH (07:38)
[2019-07-17] MEDS: LIDOCAINE 5% (LIDODERM) PATCH TD SCH ×2 (07:39→09:00)
[2019-07-17] MEDS: rOPINIRole 2MG TAB PO SCH ×2 (07:39→21:34)
[2019-07-17] MEDS: NYSTATIN 100,000 UNITS/GM TOPICAL PWD 15 GM TOP PRN (07:39)
[2019-07-17] MEDS: SILVER SULFADIAZINE 1% CR 50 GM JAR TOP SCH ×2 (07:40→21:36)
[2019-07-17] MEDS: MIDODRINE 5 MG TAB PO SCH ×3 (07:41→17:07)
[2019-07-17] MEDS: ALBUTEROL SULFATE 2.5 MG/0.5 ML INH NEB SOLN NEB SCH ×4 (08:03→19:30)
[2019-07-17 12:10] LABS: HEMATOCRIT 32.1 % (36.0-47.0); HEMOGLOBIN 9.6 g/dl (12.0-15.5); MEAN CORPUSCULAR HEMOGLOBIN 29.4 pg (27.0-33.0); MEAN CORPUSCULAR HGB CONC 29.9 g/dl (32.0-36.5); MEAN CORPUSCULAR VOLUME 98.2 fl (80.0-96.0); PLATELET COUNT, AUTOMATED 144 10^3/uL (150-450); RED BLOOD COUNT 3.27 10^6/uL (4.00-5.40); WHITE BLOOD COUNT 7.5 10^3/uL (4.0-10.0)
[2019-07-17 12:41] LABS: CALCIUM LEVEL 7.2 MG/DL (8.8-10.2); CREATININE FOR GFR 4.61 MG/DL (0.55-1.30); POTASSIUM SERUM 4.3 MEQ/L (3.5-5.1)
[2019-07-17] MEDS: oxyCODONE 5MG TAB PO PRN (13:06)
[2019-07-17 14:00] VITALS: BP 111/52
--- NOTE | 2019-07-17 14:38 | IPNPDOC ---
Text Note Date of Service The patient was seen on 07/17/19. NOTE Subjective: patient seen and examined at bedside. No complaints. Objective: Vitals as below General: pleasant NAD AAOx3 Eyes - PERRLA, EOM intact Neck - No noticeable or palpable swelling, redness or rash around throat or on face Lymph Nodes - No lymphadenopathy Cardiovascular - RRR no m/r/g, no JVD, no carotid bruits Lungs - Clear to auscltation, no use of acessory muscles, no crackles or wheezes. Skin - No rashes, skin warm and dry, no erythematous areas Abdomen - Normal bowel sounds, abdomen soft and nontender Extremeties -LLE BKA A/P: #cellulitis of the stump with Hx of LLE BKA -s/p Dr Estrella consulted; surgical debridement on 06/27/19, s/p wound vac placement---no cultures available from the procedure -s/p zyvox/cefepime - completed antibiotic treatment; remains Afebrile and WBC has improved -We will cont to monitor #Right Knee Pain 2/2 prepatella bursitis and meniscus tear prior to admission -Attempt was made to aspirate joint on 06/29/19 by Orthopedic Surgery however no fluid was able to be obtained -Right knee appears to be improving with supportive measures, brace and s/p abx coverage-->Ortho contacted about this, input appreciated -We will follow up with recommendations #ESRD -Nephrology on board for dialysis, cont per schedule #Endstage liver disease -s/p paracentesis with 7 liters removed on 06/29/19 -s/p paracentesis of 6.8L removed on 07/05/19 -s/p paracentesis of 6.6L on 07/12/19 -repeat paracentesis this week, -We will continue to monitor the patient's fluid status #Interstitial lung disease -Cont IS, NEBs, #Diabetes with longterm insulin, hyperglycemia, diabetic nephropathy -Cont levemir increased to 15U BID, SSI; -Monitor FS #Right diabetic foot ulcer present on admission -Podiatry on board, debrided. No cultures sent. - Dressing changes per podiatry #Anemia of chronic disease -Transfused 2 unit pRBC's on 06/28/19 -Hgb stable since then; on arnesp and management by nephrology #Hypothyroidism -Continue levothyroxine #Dyslipidemia -Continue statin #Restless leg syndrome -Continue ropinirole DVT prophylaxis Heparin subcutaneous Disposition. PT on board for functional optimization, the patient is likely to require rehabilitation. senior product development manager aware VSHannah, I+O VSHannah, I+O Laboratory Tests 07/17/19 11:52 Red Blood Count 3.27 L, Mean Corpuscular Volume 98.2 H, Mean Corpuscular Hemoglobin 29.4, Mean Corpuscular Hemoglobin Concent 29.9 L, Red Cell Distribution Width 20.9 H, Calcium Level 7.2 L Vital Signs Date Time Temp Pulse Resp B/P (MAP) Pulse Ox O2 Delivery O2 Flow Rate FiO2 07/17/19 13:36 16 07/17/19 06:00 96.7 74 104/54 (09) 92 I&O- Last 24 Hours up to 6 AM 07/17/19 06:00 Intake Total 460 ml Output Total 600 ml Balance -140 ml CHARMAINE MCKINLEY MD Jul 17, 2019 14:38
--- NOTE | 2019-07-17 19:50 | IPN ---
DATE: 07/17/2019 Mrs. Hernandez is seen this morning on her bedside. She is feeling well and denies any nausea or vomiting today. Her right foot is still painful. She feels that her left leg stump is healing nicely. She denies any fever or chills. PHYSICAL EXAMINATION: Temperature 96.7 degrees Fahrenheit, heart rate 74 per minute and respiratory rate 18 per minute. Blood pressure 104/54 mmHg and oxygen saturation 92% on room air. Head is atraumatic. Neck is supple and without JVD or thyroid enlargement. Heart sounds regular and lungs clear to auscultation. Abdomen soft and nontender. Ascites is present. Extremities without any cyanosis or clubbing. Left leg stump has a wound VAC dressing. Right foot is wrapped in dressing. She also has a bandage on her right knee. She did not have any new labs today. PROBLEMS: 1. End-stage renal disease. The patient was dialyzed yesterday and her regular dialysis will be again tomorrow which is her usual regular day. Her volume status is well-compensated and electrolytes have been stable. There is no need for urgent dialysis today. 2. Anemia. Her anemia has been stable and we will continue to manage with Aranesp once a week during dialysis. 3. Congestive heart failure. Generally volume status is very well compensated now in the hospital. She was admitted with massive edema and volume overload. However, it has now improved and she does not require too much fluid removal. We will continue to manage it with dialysis. 4. Cirrhosis of liver with recurrent ascites. The patient gets paracentesis weekly and at this point she seems to be doing well. She might require paracentesis in a few days.
[2019-07-17] MEDS: **NOTE PATIENT COMMENT** MISC XX SCH ×2 (21:00→21:36)
[2019-07-17] MEDS: traZODone 100 MG TAB PO SCH (21:34)
[2019-07-17] MEDS: GABAPENTIN 100 MG CAP PO SCH (21:35)
[2019-07-17] MEDS: SIMVASTATIN 20 MG TAB PO SCH (21:35)
[2019-07-17 22:00] VITALS: BP 109/58
[2019-07-18 06:00] VITALS: BP 117/56
[2019-07-18] MEDS: LIDOCAINE 5% (LIDODERM) PATCH TD SCH (06:07)
[2019-07-18] MEDS: FAMOTIDINE 20 MG TAB PO SCH (06:31)
[2019-07-18] MEDS: LEVOTHYROXINE 125MCG TABLET (0.125MG) PO SCH (06:31)
[2019-07-18] MEDS: OYSTER SHELL CALCIUM 500 MG TAB PO SCH (06:31)
[2019-07-18] MEDS: rOPINIRole 2MG TAB PO SCH ×2 (06:33→21:33)
[2019-07-18] MEDS: HEPARIN SOD (PORCINE) 5000 UNITS/ML VIAL SC SCH ×3 (06:33→21:35)
[2019-07-18] MEDS: ALBUTEROL SULFATE 2.5 MG/0.5 ML INH NEB SOLN NEB SCH ×3 (07:04→20:10)
[2019-07-18] MEDS: LEVEMIR (INSULIN DETEMIR) 1 UNITS/0.01ML SC SCH ×2 (08:25→21:34)
[2019-07-18] MEDS: MIDODRINE 5 MG TAB PO SCH ×3 (08:26→14:13)
[2019-07-18] MEDS: HumaLOG INSULIN (NovoLOG) PER UNIT SC SCH ×4 (08:26→21:00)
[2019-07-18] MEDS: oxyCODONE 5MG TAB PO PRN ×2 (08:31→14:52)
[2019-07-18] MEDS: SILVER SULFADIAZINE 1% CR 50 GM JAR TOP SCH ×2 (08:32→21:35)
[2019-07-18 10:28] LABS: HEMATOCRIT 30.5 % (36.0-47.0); HEMOGLOBIN 9.2 g/dl (12.0-15.5); MEAN CORPUSCULAR HGB CONC 30.2 g/dl (32.0-36.5); MEAN CORPUSCULAR VOLUME 96.2 fl (80.0-96.0); PLATELET COUNT, AUTOMATED 155 10^3/uL (150-450); RED BLOOD COUNT 3.17 10^6/uL (4.00-5.40); WHITE BLOOD COUNT 7.2 10^3/uL (4.0-10.0)
[2019-07-18 10:50] LABS: ALBUMIN 1.8 GM/DL (3.2-5.2); CREATININE FOR GFR 5.4 MG/DL (0.55-1.30); GLOMERULAR FILTRATION RATE 8.3 (>39); PHOSPHORUS LEVEL 6.4 MG/DL (2.5-4.9); POTASSIUM SERUM 4.5 MEQ/L (3.5-5.1)
[2019-07-18] MEDS ORDERED: HEPARIN 1,000 UNITS/ML 10ML VIAL (FOR RADIOLOGY& DIALYSIS ONLY) IV ONE (11:00)
[2019-07-18 11:07] LABS: ANISOCYTOSIS 3+; ATYPICAL LYMPH 1 % (0-5); EOSINOPHILS 5 % (0-5); LYMPHOCYTES 16 % (16-52); METAMYELOCYTES 1 % (0-0); MONOCYTES 9 % (0-8); NEUTROPHILS 67 % (35-75); PLATELET ESTIMATE NORMAL (NORMAL)
[2019-07-18 11:08] LABS: OVALOCYTES 1+
[2019-07-18] MEDS: **NOTE PATIENT COMMENT** MISC XX SCH (21:00)
[2019-07-18] MEDS: GABAPENTIN 100 MG CAP PO SCH (21:33)
[2019-07-18] MEDS: traZODone 100 MG TAB PO SCH (21:33)
[2019-07-18] MEDS: SIMVASTATIN 20 MG TAB PO SCH (21:34)
[2019-07-18] MEDS: ONDANSETRON 4 MG ORAL DISINTEGRATING TAB (Q0162 PER 1MG) PO PRN (23:32)
[2019-07-19] MEDS: HEPARIN SOD (PORCINE) 5000 UNITS/ML VIAL SC SCH ×3 (05:09→21:12)
[2019-07-19] MEDS: LEVOTHYROXINE 125MCG TABLET (0.125MG) PO SCH (05:33)
[2019-07-19 06:00] VITALS: BP 98/55
[2019-07-19] MEDS: HumaLOG INSULIN (NovoLOG) PER UNIT SC SCH ×4 (07:30→21:00)
[2019-07-19] MEDS: ALBUTEROL SULFATE 2.5 MG/0.5 ML INH NEB SOLN NEB SCH ×4 (07:43→20:00)
[2019-07-19] MEDS: MIDODRINE 5 MG TAB PO SCH ×4 (08:32→19:24)
[2019-07-19] MEDS: OYSTER SHELL CALCIUM 500 MG TAB PO SCH (08:32)
[2019-07-19] MEDS: rOPINIRole 2MG TAB PO SCH ×2 (08:32→21:12)
[2019-07-19] MEDS: FAMOTIDINE 20 MG TAB PO SCH (08:32)
[2019-07-19] MEDS: LEVEMIR (INSULIN DETEMIR) 1 UNITS/0.01ML SC SCH ×2 (08:33→21:11)
[2019-07-19] MEDS: SILVER SULFADIAZINE 1% CR 50 GM JAR TOP SCH ×2 (08:34→21:13)
[2019-07-19] MEDS: LIDOCAINE 5% (LIDODERM) PATCH TD SCH (08:34)
[2019-07-19] MEDS: CALCIUM ACETATE 667 MG GELCAP PO SCH ×2 (11:42→18:17)
--- NOTE | 2019-07-19 13:04 | IPN ---
DATE: 07/18/2019 SUBJECTIVE: The patient was seen and examined at the bedside today morning during hemodialysis. She is tolerating the hemodialysis procedure well. She denies any active complaints apart from abdominal distension. She is due for paracentesis tomorrow. OBJECTIVE: VITAL SIGNS: Temperature is 97.6 degrees Fahrenheit, blood pressure 117/56, pulse is 65, respiratory of 20, saturating 96% on room air. INTAKE AND OUTPUT: There is no urine output recorded. Weight in the bed scale is not available. PHYSICAL EXAMINATION: GENERAL: The patient is awake, alert and oriented times three, laying in bed, getting hemodialysis done. HEAD AND NECK: Extraocular muscles intact. Pupils equally round and reactive to light. Mucous membranes are moist. Neck is supple. There is no jugular venous distention (JVD). CARDIOVASCULAR: S1, S2, regular rate, 2+ edema of the right lower extremity. RESPIRATORY: Chest is clear to auscultation bilaterally. Bilateral equal air entry. No rales or rhonchi. ABDOMEN: Soft, obese, positive bowel sounds, positive abdominal wall edema and moderate amount of ascites was noted. MUSCULOSKELETAL: The patient has a left below-knee amputation site wound vacuum-assisted closure (VAC) and she has ulcers on the right leg as well which are covered with dressing. CENTRAL NERVOUS SYSTEM (MEDICAL DEVICE ENGINEER): No focal deficit. Power is 5/5 in bilateral upper extremities. PSYCHIATRIC: The patient has a depressed mood. LABORATORY REVIEW: CBC showed a WBC of 7.2, hemoglobin 9.2, platelets are 155. BMP showed sodium 136, potassium 4.5, chloride 103, bicarbonate 25, BUN 51, creatinine is 5.4, calcium is 7, phosphorus is 6.4, albumin 1.8. CURRENT INPATIENT MEDICATIONS: The patient's medications were all reviewed by me. Insulin dose has been changed to Levemir 15 units subcutaneous twice a day. No other change in the medications today as compared with yesterday. ASSESSMENT AND PLAN: 1. End-stage renal disease on hemodialysis. The patient is being dialyzed according to her Tuesday, Tuesday, Tuesday schedule. Next hemodialysis session will be on Tuesday. Because of the low blood pressure, ultrafiltration goal is only 500 mL. 2. Chronic diastolic congestive heart failure. The patient had decompensated volume status. It is difficult to remove fluid. She sometimes requires albumin infusions with dialysis. Continue the fluid restriction. Ultrafiltration (UF) goal today is only 500 mL. 3. Liver cirrhosis with recurrent ascites. The patient gets once a week paracentesis. Last paracentesis was on 07/12/2019. Next one will be done tomorrow morning. 4. Anemia and end-stage renal disease. Hemoglobin level is 9.2. Continue Aranesp with hemodialysis once a week. 5. Hyperphosphatemia. The patient's phosphorus level is high now. Binders were initially stopped when she was admitted with failure to thrive. Continue low-phosphorus diet and start the patient on a phosphorus binder starting tomorrow morning.
--- NOTE | 2019-07-19 17:43 | IPN ---
DATE: 07/19/2019 SUBJECTIVE: The patient was seen and examined at the bedside today morning. She was dialyzed yesterday, 500 mL of fluid was removed. The patient reports that she is getting ready to have the paracentesis done today. She denies any other active complaints. OBJECTIVE: VITAL SIGNS: Temperature is 97.8 degrees Fahrenheit, blood pressure 98/55, pulse is 74, respiratory rate of 18, saturating 93% on room air. INTAKE AND OUTPUT: There is no urine output recorded. Weight in the bed scale is not available. PHYSICAL EXAMINATION: GENERAL: The patient is awake, alert, oriented times three, sitting up in the sofa, no apparent distress. HEAD AND NECK EXAM: Extraocular muscles intact. Pupils equally round and reactive to light. Mucous membranes are moist. Neck is supple. There is no JVD. CARDIOVASCULAR: S1, S2. 1+ edema of the bilateral lower extremities. RESPIRATORY: Chest is clear to auscultation bilaterally. Bilateral equal air entry. No rales or rhonchi. ABDOMEN: Soft, obese, positive abdominal wall edema, moderate amount of ascites was also noted. MUSCULOSKELETAL: Left leg has a wound VAC. Right leg has some ulcers covered with dressing. VASCULAR ULTRASOUND TECHNICIAN: No focal deficit, power is 5/5 in bilateral upper extremities. LABORATORY REVIEW: CBC and BMP is from yesterday. There are no new labs done today. CURRENT INPATIENT MEDICATIONS: The patient's medications were all reviewed by me. There is no change in the medications today as compared with yesterday. ASSESSMENT/PLAN: 1. End-stage renal disease. The patient's regular dialysis days are Tuesday, Tuesday, Tuesday. She was dialyzed yesterday. Next hemodialysis will be done tomorrow morning. 2. Cirrhosis of liver with recurrent ascites. The patient is going to have the ascites tap done today. 3. Anemia in end-stage renal disease. The patient is getting Aranesp 100 mcg IV with hemodialysis. If hemoglobin stays low, then I would increase the Aranesp dose at next dialysis. 4. Hyperphosphatemia. I have started the patient on PhosLo one capsule by mouth three times a day with meals.
[2019-07-19] MEDS: oxyCODONE 5MG TAB PO PRN (18:17)
[2019-07-19] MEDS: **NOTE PATIENT COMMENT** MISC XX SCH (21:00)
[2019-07-19] MEDS: SIMVASTATIN 20 MG TAB PO SCH (21:11)
[2019-07-19] MEDS: traZODone 100 MG TAB PO SCH (21:11)
[2019-07-19] MEDS: GABAPENTIN 100 MG CAP PO SCH (21:12)
[2019-07-20 06:00] VITALS: BP 99/53
[2019-07-20] MEDS: OYSTER SHELL CALCIUM 500 MG TAB PO SCH (06:07)
[2019-07-20] MEDS: HEPARIN SOD (PORCINE) 5000 UNITS/ML VIAL SC SCH ×3 (06:07→21:12)
[2019-07-20] MEDS: LEVOTHYROXINE 125MCG TABLET (0.125MG) PO SCH (06:07)
[2019-07-20] MEDS: FAMOTIDINE 20 MG TAB PO SCH (06:07)
[2019-07-20] MEDS: rOPINIRole 2MG TAB PO SCH ×2 (06:08→21:10)
[2019-07-20] MEDS: HumaLOG INSULIN (NovoLOG) PER UNIT SC SCH ×4 (07:41→21:00)
[2019-07-20] MEDS: CALCIUM ACETATE 667 MG GELCAP PO SCH ×3 (07:42→17:42)
[2019-07-20] MEDS: LIDOCAINE 5% (LIDODERM) PATCH TD SCH (07:42)
[2019-07-20] MEDS: ONDANSETRON 4 MG ORAL DISINTEGRATING TAB (Q0162 PER 1MG) PO PRN (07:42)
[2019-07-20] MEDS: LEVEMIR (INSULIN DETEMIR) 1 UNITS/0.01ML SC SCH ×2 (07:42→21:11)
[2019-07-20] MEDS: MIDODRINE 5 MG TAB PO SCH ×3 (07:42→16:00)
[2019-07-20] MEDS: ALBUTEROL SULFATE 2.5 MG/0.5 ML INH NEB SOLN NEB SCH ×4 (08:00→21:07)
[2019-07-20 10:22] LABS: BASO % 0.5 % (0.0-1.0); EOS # 0.3 10^3/uL (0.0-0.50); HEMATOCRIT 29.8 % (36.0-47.0); HEMOGLOBIN 9.2 g/dl (12.0-15.5); LYMPH # 1.1 10^3/uL (1.5-4.5); LYMPH % 17.6 % (24.0-44.0); MEAN CORPUSCULAR HEMOGLOBIN 30.2 pg (27.0-33.0); MEAN CORPUSCULAR HGB CONC 30.9 g/dl (32.0-36.5); MEAN CORPUSCULAR VOLUME 97.7 fl (80.0-96.0); MONO # 0.8 10^3/uL (0.0-0.8); MONO % 13.6 % (0.0-5.0); NEUTROPHILS # 3.7 10^3/uL (1.8-7.7); NEUTROPHILS % 61.3 % (36.0-66.0); PLATELET COUNT, AUTOMATED 148 10^3/uL (150-450); RED BLOOD COUNT 3.05 10^6/uL (4.00-5.40)
[2019-07-20 10:50] LABS: ALBUMIN 1.5 GM/DL (3.2-5.2); CALCIUM LEVEL 6.9 MG/DL (8.8-10.2); CREATININE FOR GFR 5.02 MG/DL (0.55-1.30); GLOMERULAR FILTRATION RATE 9.1 (>39); PHOSPHORUS LEVEL 5.8 MG/DL (2.5-4.9); POTASSIUM SERUM 4.6 MEQ/L (3.5-5.1)
[2019-07-20] MEDS ORDERED: DARBEPOETIN 100 MCG/0.5 ML *DIALYSIS* SYRINGE (J0882) IV SCH (11:15)
[2019-07-20] MEDS ORDERED: HEPARIN 1,000 UNITS/ML 10ML VIAL (FOR RADIOLOGY& DIALYSIS ONLY) IV ONE (12:00)
[2019-07-20] MEDS: SILVER SULFADIAZINE 1% CR 50 GM JAR TOP SCH ×2 (12:40→21:13)
[2019-07-20 13:07] VITALS: BP 109/60
--- NOTE | 2019-07-20 17:05 | IPN ---
DATE: 07/20/2019 SUBJECTIVE: The patient was seen and examined at the bedside today morning during hemodialysis. She is tolerating the hemodialysis procedure well. She reports getting paracentesis done yesterday and about 6.5 liters of fluid was removed. The patient is tolerating the ultrafiltration during dialysis as well. OBJECTIVE: VITAL SIGNS: Temperature is 97 degrees Fahrenheit, blood pressure 99/53, pulse is 76, respiratory rate of 18, saturating 92% on room air. INTAKE AND OUTPUT: There is no urine output recorded. Paracentesis was 6.5 liters yesterday. Weight in the bed scale is not available. PHYSICAL EXAMINATION: GENERAL: The patient is awake, alert and oriented times three, laying in bed, in no apparent distress. HEAD AND NECK: Extraocular muscles intact. Pupils equally round and reactive to light. Mucous membranes are moist. Neck is supple. There is no jugular venous distention (JVD). CARDIOVASCULAR: S1, S2, regular rate, 1+ edema of the lower extremities. RESPIRATORY: Chest is clear to auscultation bilaterally. Bilateral equal air entry. No rales or rhonchi. ABDOMEN: Soft, obese, positive bowel sounds. Mild amount of abdominal wall edema was noted. Ascites is better now since she got the paracentesis done. MUSCULOSKELETAL: She has a wound vacuum-assisted closure (VAC) in the left leg below-knee amputation site. The right leg has ulcers covered with dressing. CENTRAL NERVOUS SYSTEM (OPERATIONS LIEUTENANT): No focal deficit. Power is 5/5 in bilateral upper extremities. LABORATORY REVIEW: CBC showed a WBC of 6, hemoglobin 9.2, platelets are 148. BMP showed sodium 137, potassium 4.6, chloride 102, bicarbonate 28, BUN 49, creatinine is 5. CURRENT INPATIENT MEDICATIONS: The patient's medications were all reviewed by me. I have increased the Aranesp dose to 200 mcg IV with hemodialysis. No other change in the medications today as compared with yesterday. ASSESSMENT AND PLAN: 1. End-stage renal disease on hemodialysis. The patient is being dialyzed today according to Tuesday, Tuesday, Tuesday schedule. Ultrafiltration goal will be 1.5 liters as tolerated by her blood pressure. 2. Cirrhosis of liver and recurrent ascites. The patient got the ascitic tap done yesterday and 6.5 liters of fluid was removed. 3. Anemia and end-stage renal disease. Hemoglobin level is still suboptimal. I have increased the Aranesp dose to 200 mcg with dialysis. 4. Hyperphosphatemia. The patient was started on PhosLo with meals. Phosphorus level is improving.
[2019-07-20] MEDS: **NOTE PATIENT COMMENT** MISC XX SCH (21:00)
[2019-07-20] MEDS: traZODone 100 MG TAB PO SCH (21:12)
[2019-07-20] MEDS: GABAPENTIN 100 MG CAP PO SCH (21:12)
[2019-07-20] MEDS: SIMVASTATIN 20 MG TAB PO SCH (21:12)
[2019-07-20] MEDS: oxyCODONE 5MG TAB PO PRN (22:32)
[2019-07-21] MEDS: LEVOTHYROXINE 125MCG TABLET (0.125MG) PO SCH (05:47)
[2019-07-21] MEDS: HEPARIN SOD (PORCINE) 5000 UNITS/ML VIAL SC SCH ×3 (05:48→21:53)
[2019-07-21 06:00] VITALS: BP 133/73
[2019-07-21] MEDS: ALBUTEROL SULFATE 2.5 MG/0.5 ML INH NEB SOLN NEB SCH ×4 (07:47→19:25)
[2019-07-21] MEDS: LEVEMIR (INSULIN DETEMIR) 1 UNITS/0.01ML SC SCH ×2 (08:27→21:54)
[2019-07-21] MEDS: FAMOTIDINE 20 MG TAB PO SCH (08:28)
[2019-07-21] MEDS: CALCIUM ACETATE 667 MG GELCAP PO SCH ×3 (08:28→17:33)
[2019-07-21] MEDS: OYSTER SHELL CALCIUM 500 MG TAB PO SCH (08:28)
[2019-07-21] MEDS: HumaLOG INSULIN (NovoLOG) PER UNIT SC SCH ×4 (08:28→21:00)
[2019-07-21] MEDS: LIDOCAINE 5% (LIDODERM) PATCH TD SCH (08:29)
[2019-07-21] MEDS: SILVER SULFADIAZINE 1% CR 50 GM JAR TOP SCH ×2 (08:29→21:55)
[2019-07-21] MEDS: MIDODRINE 5 MG TAB PO SCH ×3 (08:29→16:45)
[2019-07-21] MEDS: rOPINIRole 2MG TAB PO SCH ×2 (08:29→21:54)
--- NOTE | 2019-07-21 12:39 | IPNPDOC ---
Text Note Date of Service The patient was seen on 07/21/19. NOTE This is a 68-year-old female with end-stage renal disease that is hemodialysis requiring, and end-stage liver disease. She was admitted with hepatic encephalopathy. She has had an extended hospital stay. Awaiting placement. Her greatest complaint is that of a very irritating rash to her back. Objective: HENT: Neck is supple with no adenopathy or thyromegaly. Cardiovascular exam: Regular rate and rhythm with a normal S1 and S2 Respiratory: Clear to auscultation, no respiratory distress. Abdomen: Soft, nontender, some central obesity, otherwise nondistended. Extremities: Left lower extremity BKA is apparent, pulses palpable to right foot. Skin: This rfp writer has examined her back. She does have a beefy erythematous papular rash with satellite lesions that resembles candidal dermatitis ASSESSMENT/PLAN: 1. End-stage liver disease. Patient has had recurrence of ascites; she has had repeat paracentesis with removal of 6.5 L of fluid. She otherwise remains stable. 2. End-stage renal disease. This is hemodialysis requiring; she continues with her schedule. 3. Mak-[id number] diabetes mellitus. Patient currently remains stable on her scheduled basal bolus insulin and sliding scale. #4. Stump cellulitis. This appears to be essentially resolved. There is some ongoing wound and skin care. 5. Rash. Again, this appears to be a fairly significant candidal dermatitis. Plans are to treat with topical Mycolog. The patient remains ALC status while awaiting placement. VS,Fishbone, I+O VS, Fishbone, I+O Vital Signs Date Time Temp Pulse Resp B/P (MAP) Pulse Ox O2 Delivery O2 Flow Rate FiO2 07/21/19 06:00 97.6 77 16 133/73 (20) 96 I&O- Last 24 Hours up to 6 AM 07/21/19 05:59 Intake Total 1260 ml Output Total 1500 ml Balance -240 ml ALLYOSN MACARIO MD Jul 21, 2019 12:38
[2019-07-21] MEDS: oxyCODONE 5MG TAB PO PRN (15:22)
[2019-07-21] MEDS: **NOTE PATIENT COMMENT** MISC XX SCH (21:00)
[2019-07-21] MEDS: SIMVASTATIN 20 MG TAB PO SCH (21:54)
[2019-07-21] MEDS: GABAPENTIN 100 MG CAP PO SCH (21:54)
[2019-07-21] MEDS: traZODone 100 MG TAB PO SCH (21:54)
[2019-07-22] MEDS: LEVOTHYROXINE 125MCG TABLET (0.125MG) PO SCH (05:48)
[2019-07-22] MEDS: HEPARIN SOD (PORCINE) 5000 UNITS/ML VIAL SC SCH ×3 (05:48→20:56)
[2019-07-22 06:00] VITALS: BP 117/58
[2019-07-22] MEDS: ALBUTEROL SULFATE 2.5 MG/0.5 ML INH NEB SOLN NEB SCH ×4 (07:14→20:13)
[2019-07-22] MEDS: HumaLOG INSULIN (NovoLOG) PER UNIT SC SCH ×4 (08:13→20:58)
[2019-07-22] MEDS: LIDOCAINE 5% (LIDODERM) PATCH TD SCH (08:14)
[2019-07-22] MEDS: FAMOTIDINE 20 MG TAB PO SCH (08:14)
[2019-07-22] MEDS: rOPINIRole 2MG TAB PO SCH ×2 (08:14→20:56)
[2019-07-22] MEDS: OYSTER SHELL CALCIUM 500 MG TAB PO SCH (08:14)
[2019-07-22] MEDS: LEVEMIR (INSULIN DETEMIR) 1 UNITS/0.01ML SC SCH ×2 (08:14→20:56)
[2019-07-22] MEDS: CALCIUM ACETATE 667 MG GELCAP PO SCH ×3 (08:14→18:09)
[2019-07-22] MEDS: MIDODRINE 5 MG TAB PO SCH ×3 (08:14→16:06)
[2019-07-22] MEDS: SILVER SULFADIAZINE 1% CR 50 GM JAR TOP SCH ×2 (08:15→20:57)
[2019-07-22] MEDS: NYSTATIN 100,000 UNITS/GM TOPICAL PWD 15 GM TOP PRN (17:27)
[2019-07-22] MEDS: traZODone 100 MG TAB PO SCH (20:57)
[2019-07-22] MEDS: GABAPENTIN 100 MG CAP PO SCH (20:57)
[2019-07-22] MEDS: SIMVASTATIN 20 MG TAB PO SCH (20:57)
[2019-07-22] MEDS: **NOTE PATIENT COMMENT** MISC XX SCH (20:58)
[2019-07-22] MEDS: oxyCODONE 5MG TAB PO PRN (22:27)
[2019-07-23 06:00] VITALS: BP 105/50
[2019-07-23] MEDS: HEPARIN SOD (PORCINE) 5000 UNITS/ML VIAL SC SCH ×3 (06:03→21:31)
[2019-07-23] MEDS: LEVOTHYROXINE 125MCG TABLET (0.125MG) PO SCH (06:04)
[2019-07-23] MEDS: OYSTER SHELL CALCIUM 500 MG TAB PO SCH (06:04)
[2019-07-23] MEDS: FAMOTIDINE 20 MG TAB PO SCH (06:04)
[2019-07-23] MEDS: rOPINIRole 2MG TAB PO SCH ×2 (06:04→21:31)
[2019-07-23] MEDS: ONDANSETRON 4 MG ORAL DISINTEGRATING TAB (Q0162 PER 1MG) PO PRN (06:51)
[2019-07-23] MEDS: CALCIUM ACETATE 667 MG GELCAP PO SCH ×3 (07:51→17:26)
[2019-07-23] MEDS: MIDODRINE 5 MG TAB PO SCH ×3 (07:51→17:26)
[2019-07-23] MEDS: SILVER SULFADIAZINE 1% CR 50 GM JAR TOP SCH ×2 (07:52→21:32)
[2019-07-23] MEDS: HumaLOG INSULIN (NovoLOG) PER UNIT SC SCH ×4 (07:52→21:00)
[2019-07-23] MEDS: LEVEMIR (INSULIN DETEMIR) 1 UNITS/0.01ML SC SCH ×2 (07:53→21:33)
[2019-07-23] MEDS: LIDOCAINE 5% (LIDODERM) PATCH TD SCH (07:53)
[2019-07-23] MEDS: ALBUTEROL SULFATE 2.5 MG/0.5 ML INH NEB SOLN NEB SCH ×4 (07:57→20:31)
--- NOTE | 2019-07-23 09:14 | IPN ---
DATE: 07/21/2019 SUBJECTIVE: The patient was seen and examined at the bedside today morning. She was dialyzed yesterday. She tolerated the hemodialysis procedure well. She was sitting up in the bed and doing painting when I saw her she denies any active complaints. OBJECTIVE: Vital signs: Temperature is 97.6. Blood pressure 133/73, pulse is 77, respiratory of 16, saturating 96% on room air. Intake and output, there is no urine output recorded. Ultrafiltration with hemodialysis was 1.5 liters yesterday. Weight in the bed scale is not available. PHYSICAL EXAMINATION: General: The patient is awake, alert, oriented times three, sitting up in the bed in no apparent distress. Head and neck exam extraocular muscles intact. Pupils equally round and reactive to light. Mucous membranes are moist. Neck is supple. There is no JVD. Cardiovascular: S1, S2 regular rate. 1+ edema of the right lower extremity. Respiratory: Chest is clear to auscultation bilaterally. Bilateral equal air entry. No rales or rhonchi. Abdomen: Soft, obese, positive bowel sounds. Moderate amount of ascites, abdominal wall edema was noted. Musculoskeletal: Wound vac on the left leg and 1+ edema of the right leg with ulcer on the right foot covered with a dressing. COMPUTER GAME TESTER: No focal deficit power is 75 in bilateral upper extremities. LAB REVIEW: CBCs from yesterday, BMP is also from yesterday. CURRENT INPATIENT MEDICATIONS: The patient's medications were all reviewed by me. There is no change in the medications today as compared with yesterday. Aranesp dose was increased yesterday. ASSESSMENT/PLAN: 1. End-stage renal disease on hemodialysis. The patient is dialyzed on Tuesday, Tuesday, Tuesday. She was dialyzed yesterday. Volume status is optimal. 2. Cirrhosis of liver and recurrent ascites. The patient gets once a tap. Last tap was done on this . 3. Anemia and end-stage renal disease. Aranesp dose was increased hemoglobin level is expected to improve. 4. Left lower extremity below-knee amputation site infection. The patient currently has a wound vac. She has finished Zyvox and cefepime. 5. Disposition the patient is a ALC status. She will be seen on dialysis days only now. [facility]
[2019-07-23 09:51] LABS: HEMATOCRIT 33.7 % (36.0-47.0); HEMOGLOBIN 10.2 g/dl (12.0-15.5); MEAN CORPUSCULAR HEMOGLOBIN 29.7 pg (27.0-33.0); MEAN CORPUSCULAR HGB CONC 30.3 g/dl (32.0-36.5); PLATELET COUNT, AUTOMATED 217 10^3/uL (150-450); RED BLOOD COUNT 3.44 10^6/uL (4.00-5.40); WHITE BLOOD COUNT 9.9 10^3/uL (4.0-10.0)
[2019-07-23 10:12] LABS: ALBUMIN 1.6 GM/DL (3.2-5.2); CALCIUM LEVEL 7.1 MG/DL (8.8-10.2); CREATININE FOR GFR 5.67 MG/DL (0.55-1.30); GLOMERULAR FILTRATION RATE 7.9 (>39); PHOSPHORUS LEVEL 4.7 MG/DL (2.5-4.9); POTASSIUM SERUM 5.6 MEQ/L (3.5-5.1)
[2019-07-23] MEDS: oxyCODONE 5MG TAB PO PRN ×2 (13:37→23:26)
[2019-07-23] MEDS: MICONAZOLE 2 % POWDER (DESENEX) TOP SCH ×2 (13:38→21:32)
[2019-07-23] MEDS: **NOTE PATIENT COMMENT** MISC XX SCH (21:00)
--- NOTE | 2019-07-23 21:27 | IPN ---
DATE: 07/23/2019 Mrs. Hernandez is seen during dialysis this morning. She has complained of itching and rash on her back. She denies any dyspnea or chest pain. Her blood pressure is low during dialysis and she does feel nauseated whenever her blood pressure goes down. She has no dyspnea or chest pain. She did have a paracentesis done on once again. PHYSICAL EXAMINATION: Temperature 97.7 degrees Fahrenheit, heart rate 78 per minute and respiratory rate 16 per minute. Blood pressure 105/50 mmHg and oxygen saturation 95% on room air. Head is atraumatic. Neck is supple and JVD is not elevated. Heart sounds are regular and lungs sound clear to auscultation. Abdomen: Soft and distended with ascites. Bowel sounds are present. Extremities: Have no cyanosis or clubbing. Left leg stump has a wound VAC dressing. She has a left tnaiq-xyg-mhli amputation. Neurologically, she is awake, alert and oriented x3. Today's labs show WBC count 9.9, hemoglobin 10.2 and hematocrit 33.7. Sodium 135, potassium 5.6, CO2 25, BUN 68 and creatinine 5.67. Her albumin is only 1.6. PROBLEMS: 1. End-stage renal disease. The patient is being dialyzed today and she is tolerating dialysis reasonably well with slightly low blood pressure. We have cut down on the fluid removal goal. 2. Hyperkalemia related to end-stage renal disease and high potassium intake. The patient understands to avoid oranges and bananas. She should be on 2 grams potassium diet. We are using 2.0 mEq potassium bath, which is likely to correct her hyperkalemia. 3. Anemia. Her anemia is improved and she will continue to receive weekly dose of Aranesp with dialysis. 4. Cirrhosis of liver with recurrent ascites. The patient had a weekly paracentesis done on . Her volume status remains reasonably well-compensated. No other urgent intervention is indicated.
[2019-07-23] MEDS: traZODone 100 MG TAB PO SCH (21:31)
[2019-07-23] MEDS: GABAPENTIN 100 MG CAP PO SCH (21:31)
[2019-07-23] MEDS: SIMVASTATIN 20 MG TAB PO SCH (21:31)
[2019-07-24] MEDS: HEPARIN SOD (PORCINE) 5000 UNITS/ML VIAL SC SCH ×3 (05:58→21:49)
[2019-07-24] MEDS: LEVOTHYROXINE 125MCG TABLET (0.125MG) PO SCH (05:58)
[2019-07-24 06:00] VITALS: BP 121/63
[2019-07-24] MEDS: ALBUTEROL SULFATE 2.5 MG/0.5 ML INH NEB SOLN NEB SCH ×4 (07:05→19:48)
[2019-07-24] MEDS: LIDOCAINE 5% (LIDODERM) PATCH TD SCH (08:43)
[2019-07-24] MEDS: HumaLOG INSULIN (NovoLOG) PER UNIT SC SCH ×4 (08:44→21:00)
[2019-07-24] MEDS: LEVEMIR (INSULIN DETEMIR) 1 UNITS/0.01ML SC SCH ×2 (08:46→21:50)
[2019-07-24] MEDS: OYSTER SHELL CALCIUM 500 MG TAB PO SCH (08:47)
[2019-07-24] MEDS: MIDODRINE 5 MG TAB PO SCH ×3 (08:47→17:09)
[2019-07-24] MEDS: CALCIUM ACETATE 667 MG GELCAP PO SCH ×3 (08:47→17:09)
[2019-07-24] MEDS: rOPINIRole 2MG TAB PO SCH ×2 (08:47→21:49)
[2019-07-24] MEDS: FAMOTIDINE 20 MG TAB PO SCH (08:47)
[2019-07-24] MEDS: MICONAZOLE 2 % POWDER (DESENEX) TOP SCH ×2 (08:48→21:48)
[2019-07-24] MEDS: SILVER SULFADIAZINE 1% CR 50 GM JAR TOP SCH ×2 (08:48→21:49)
[2019-07-24] MEDS: oxyCODONE 5MG TAB PO PRN (17:16)
[2019-07-24] MEDS: **NOTE PATIENT COMMENT** MISC XX SCH (21:00)
[2019-07-24] MEDS: GABAPENTIN 100 MG CAP PO SCH (21:48)
[2019-07-24] MEDS: SIMVASTATIN 20 MG TAB PO SCH (21:48)
[2019-07-24] MEDS: traZODone 100 MG TAB PO SCH (21:49)
[2019-07-25 06:00] VITALS: BP 118/79
[2019-07-25] MEDS: LEVOTHYROXINE 125MCG TABLET (0.125MG) PO SCH (06:11)
[2019-07-25] MEDS: HEPARIN SOD (PORCINE) 5000 UNITS/ML VIAL SC SCH ×3 (06:11→21:03)
[2019-07-25] MEDS: rOPINIRole 2MG TAB PO SCH ×2 (06:11→21:02)
[2019-07-25] MEDS: OYSTER SHELL CALCIUM 500 MG TAB PO SCH (06:11)
[2019-07-25] MEDS: FAMOTIDINE 20 MG TAB PO SCH (06:12)
[2019-07-25] MEDS: HumaLOG INSULIN (NovoLOG) PER UNIT SC SCH ×4 (07:30→21:03)
[2019-07-25] MEDS: ALBUTEROL SULFATE 2.5 MG/0.5 ML INH NEB SOLN NEB SCH ×4 (08:00→21:49)
[2019-07-25] MEDS: CALCIUM ACETATE 667 MG GELCAP PO SCH ×3 (08:00→18:26)
[2019-07-25] MEDS: MIDODRINE 5 MG TAB PO SCH ×4 (08:00→16:09)
[2019-07-25] MEDS: LIDOCAINE 5% (LIDODERM) PATCH TD SCH (09:00)
[2019-07-25] MEDS: SILVER SULFADIAZINE 1% CR 50 GM JAR TOP SCH ×2 (09:00→21:00)
[2019-07-25] MEDS: LEVEMIR (INSULIN DETEMIR) 1 UNITS/0.01ML SC SCH ×2 (09:08→21:03)
[2019-07-25] MEDS: MICONAZOLE 2 % POWDER (DESENEX) TOP SCH ×2 (09:09→21:29)
--- NOTE | 2019-07-25 12:07 | REP ---
Ultrasound-guided paracentesis The procedure was performed by ANTONIO Sierra, under the direct supervision of Dr. Martinez. The risks and benefits of the procedure were explained to the patient and informed consent was obtained both verbally and written. Directly prior to the start of the procedure, a formal timeout was completed in the procedure room. Under ultrasound guidance, the largest pocket of fluid in the left flank was localized and skin was marked. The skin was then prepped and draped in a sterile fashion. 10 ml of 1% lidocaine was used as a local anesthetic. Using ultrasound guidance, an 8-Singaporean multi side-hole catheter was inserted using trocar technique. 6550 mL of clear yellow colored fluid was withdrawn and discarded. The patient tolerated the procedure well and there were no immediate complications. After the appropriate monitored convalescence the patient was discharged from the department. Reviewed by ANTONIO Song 07/20/2019 08:38 A Electronically Signed by Vel Martinez MD 07/25/2019 08:28 A
[2019-07-25 16:00] VITALS: BP 138/68
--- NOTE | 2019-07-25 19:32 | REP ---
Ultrasound-guided paracentesis The procedure was performed under the direct supervision of Dr. Martinez. The risks and benefits of the procedure were explained to the patient and informed consent was obtained. The largest pocket of fluid was localized in the right flank using ultrasound guidance. The skin was prepped and draped in a sterile fashion. 1% lidocaine was used as a local anesthetic. An 8-Irish multi side-hole catheter was inserted using trocar technique. 5850 ml of yellow fluid was withdrawn and discarded. The patient tolerated the procedure well and there were no immediate complications. After the appropriate amount of monitored convalescence the patient was discharged from the department. Reviewed by ANTONIO Curiel 07/25/2019 04:59 P Electronically Signed by Vel Martinez MD 07/25/2019 07:22 P
[2019-07-25] MEDS: **NOTE PATIENT COMMENT** MISC XX SCH (21:00)
[2019-07-25] MEDS: SIMVASTATIN 20 MG TAB PO SCH (21:02)
[2019-07-25] MEDS: traZODone 100 MG TAB PO SCH (21:02)
[2019-07-25] MEDS: GABAPENTIN 100 MG CAP PO SCH (21:02)
--- NOTE | 2019-07-25 21:59 | IPN ---
DATE: 07/25/2019 CHIEF COMPLAINT: The patient was seen at bedside for evaluation of ulcer on her right foot. PHYSICAL EXAMINATION: Reveals an ulceration present on the medial aspect of the right foot. There is a bandage in place. The bandage was removed today. On the dorsal aspect of the hallux at the interphalageal joint, there was a callous measuring 10 mm x 3 mm. Two ulcerations were also noted on the right hallux. After informed consent was obtained and examined by the patient and appropriate time out utilizing a sterile curette, the callous on the dorsal aspect of the right hallux was debrided excisionally with a sterile curette. Post debridement measurement is 7 mm x 2 mm x 1 mm and this is a stage II ulceration with skin just at the dermis. The first metatarsal area has an ulceration prior to debridement measures 8 mm x 2 mm x 1 mm. Utilizing a sterile curette, excisional debridement was obtained to the level of the subcutaneous tissues and subacute fat. The ulcer measures 17 mm x 5 mm x 1 mm in depth. The plantar hallux has an ulceration prior to debridement measuring 5 mm x 3 mm x 1 mm in depth and utilizing a sterile curette to the level of the subcutaneous tissue of the ulcer. After debridement, a 6 mm x 3 mm x 1 mm, there is no discharge or signs of infection. Good granulation tissue was noted. No remaining necrotic tissue was present. Silvadene and dry sterile dressing was applied to the patient's right foot. The patient's questions were answered.
[2019-07-26 06:00] VITALS: BP 110/61
[2019-07-26] MEDS: CALCIUM ACETATE 667 MG GELCAP PO SCH ×3 (06:28→18:39)
[2019-07-26] MEDS: OYSTER SHELL CALCIUM 500 MG TAB PO SCH (06:28)
[2019-07-26] MEDS: rOPINIRole 2MG TAB PO SCH ×2 (06:29→22:00)
[2019-07-26] MEDS: HEPARIN SOD (PORCINE) 5000 UNITS/ML VIAL SC SCH ×3 (06:29→22:01)
[2019-07-26] MEDS: MIDODRINE 5 MG TAB PO SCH ×3 (06:29→17:10)
[2019-07-26] MEDS: FAMOTIDINE 20 MG TAB PO SCH (06:29)
[2019-07-26] MEDS: LEVOTHYROXINE 125MCG TABLET (0.125MG) PO SCH (06:29)
[2019-07-26] MEDS: HumaLOG INSULIN (NovoLOG) PER UNIT SC SCH ×4 (06:37→21:00)
[2019-07-26] MEDS: ALBUTEROL SULFATE 2.5 MG/0.5 ML INH NEB SOLN NEB SCH ×4 (07:05→19:23)
[2019-07-26 08:54] LABS: BASO # 0.1 10^3/uL (0.0-0.2); BASO % 0.5 % (0.0-1.0); EOS # 0.5 10^3/uL (0.0-0.50); EOS % 4.8 % (0.0-3.0); HEMATOCRIT 33.4 % (36.0-47.0); HEMOGLOBIN 10.1 g/dl (12.0-15.5); LYMPH # 1.7 10^3/uL (1.5-4.5); LYMPH % 17.6 % (24.0-44.0); MEAN CORPUSCULAR HEMOGLOBIN 28.9 pg (27.0-33.0); MEAN CORPUSCULAR HGB CONC 30.2 g/dl (32.0-36.5); MEAN CORPUSCULAR VOLUME 95.7 fl (80.0-96.0); MONO % 10.7 % (0.0-5.0); NEUTROPHILS # 6.2 10^3/uL (1.8-7.7); NEUTROPHILS % 65.1 % (36.0-66.0); PLATELET COUNT, AUTOMATED 211 10^3/uL (150-450); RED BLOOD COUNT 3.49 10^6/uL (4.00-5.40); WHITE BLOOD COUNT 9.5 10^3/uL (4.0-10.0)
[2019-07-26] MEDS: LIDOCAINE 5% (LIDODERM) PATCH TD SCH (09:00)
[2019-07-26 09:15] LABS: ALBUMIN 1.6 GM/DL (3.2-5.2); C REACTIVE PROTEIN QUANTITATIV 5.8 MG/DL (0.00-0.30); CALCIUM LEVEL 7.6 MG/DL (8.8-10.2); CREATININE FOR GFR 5.57 MG/DL (0.55-1.30); MAGNESIUM LEVEL 2.5 MG/DL (1.8-2.4); PHOSPHORUS LEVEL 5.1 MG/DL (2.5-4.9)
[2019-07-26] MEDS ORDERED: HEPARIN 1,000 UNITS/ML 10ML VIAL (FOR RADIOLOGY& DIALYSIS ONLY) IV ONE (10:45)
[2019-07-26] MEDS: MICONAZOLE 2 % POWDER (DESENEX) TOP SCH ×2 (13:19→22:00)
[2019-07-26] MEDS: LEVEMIR (INSULIN DETEMIR) 1 UNITS/0.01ML SC SCH ×2 (13:19→22:11)
[2019-07-26] MEDS: SILVER SULFADIAZINE 1% CR 50 GM JAR TOP SCH ×2 (13:20→22:01)
[2019-07-26] MEDS: DOXYCYCLINE HYCLATE 100 MG TAB PO SCH ×2 (13:23→22:00)
--- NOTE | 2019-07-26 19:56 | IPN ---
DATE: 07/26/2019 Mrs. Hernandez is seen during hemodialysis this morning. She has complained of feeling dizzy when she turns in the bed. She denies any dyspnea, chest pain, nausea, or vomiting. She had another paracentesis done yesterday, and slightly less than 6 liters fluid was removed. PHYSICAL EXAMINATION: Temperature 97.6 degrees Fahrenheit, heart rate 80 per minute, respiratory rate 18 per minute, blood pressure 110/60 mm of mercury, and oxygen saturation 98% on room air. Head is atraumatic. Neck is supple and without jugular venous distention (JVD) or thyroid enlargement. Heart sounds regular and lungs clear to auscultation. Abdomen soft, and moderate amount of ascites is present. Extremities without any cyanosis or clubbing. Left leg stump has a wound vacuum-assisted closure (VAC) dressing. Neurologically, she is at her baseline mentation. Today's labs show WBC count 9.5, hemoglobin 10.1, and hematocrit 33.4. Platelets 211. Sodium 137, potassium 6.0, CO2 of 27, BUN 67, and creatinine 5.57. Calcium 7.6 and phosphorus 5.1. C-reactive protein 5.8 and albumin 1.6. PROBLEMS: 1. End-stage renal disease. The patient is being dialyzed today, and she is tolerating her dialysis treatment well. We will remove only about 1 liter of fluid, as she had a large amount of paracentesis yesterday and is at risk for hypotension with aggressive fluid removal. Her volume status is reasonably well compensated. 2. Hyperkalemia related to end-stage renal disease and dietary noncompliance. This will be corrected with dialysis. The patient is being dialyzed with 2.0 mEq potassium bath today. 3. Anemia. Her anemia is stable, and she will continue to receive weekly dose of Aranesp. 4. Protein calorie malnutrition. This is chronic and related to ongoing infections and wounds. The patient needs high-protein intake. 5. Infected left leg stump. The patient has a wound VAC dressing. The hospitalist service is treating her infections. Dr. Owen is going to add doxycycline 100 mg twice a day.
[2019-07-26] MEDS: **NOTE PATIENT COMMENT** MISC XX SCH (21:00)
[2019-07-26] MEDS: traZODone 100 MG TAB PO SCH (22:00)
[2019-07-26] MEDS: SIMVASTATIN 20 MG TAB PO SCH (22:00)
[2019-07-26] MEDS: GABAPENTIN 100 MG CAP PO SCH (22:00)
[2019-07-26] MEDS: oxyCODONE 5MG TAB PO PRN (23:32)
[2019-07-27 06:00] VITALS: BP 135/68
[2019-07-27] MEDS: DOXYCYCLINE HYCLATE 100 MG TAB PO SCH ×2 (06:12→21:24)
[2019-07-27] MEDS: LEVOTHYROXINE 125MCG TABLET (0.125MG) PO SCH (06:12)
[2019-07-27] MEDS: HEPARIN SOD (PORCINE) 5000 UNITS/ML VIAL SC SCH ×3 (06:12→22:23)
[2019-07-27] MEDS: FAMOTIDINE 20 MG TAB PO SCH (06:12)
[2019-07-27] MEDS: MICONAZOLE 2 % POWDER (DESENEX) TOP SCH ×2 (06:12→21:25)
[2019-07-27] MEDS: rOPINIRole 2MG TAB PO SCH ×2 (06:13→21:24)
[2019-07-27] MEDS: HumaLOG INSULIN (NovoLOG) PER UNIT SC SCH ×4 (07:30→20:58)
[2019-07-27] MEDS: ALBUTEROL SULFATE 2.5 MG/0.5 ML INH NEB SOLN NEB SCH ×4 (07:38→20:00)
[2019-07-27] MEDS: CALCIUM ACETATE 667 MG GELCAP PO SCH ×3 (08:24→21:24)
[2019-07-27] MEDS: LEVEMIR (INSULIN DETEMIR) 1 UNITS/0.01ML SC SCH ×2 (08:24→21:27)
[2019-07-27] MEDS: MIDODRINE 5 MG TAB PO SCH ×3 (08:24→16:15)
[2019-07-27] MEDS: SILVER SULFADIAZINE 1% CR 50 GM JAR TOP SCH ×2 (08:26→21:26)
[2019-07-27] MEDS: LIDOCAINE 5% (LIDODERM) PATCH TD SCH (08:26)
[2019-07-27] MEDS ORDERED: diphenhydrAMINE INJ 50MG/ML VIAL (J1200) IV PRN (08:45)
[2019-07-27 09:08] LABS: BASO # 0.1 10^3/uL (0.0-0.2); BASO % 0.7 % (0.0-1.0); EOS # 0.4 10^3/uL (0.0-0.50); HEMATOCRIT 34.9 % (36.0-47.0); HEMOGLOBIN 10.3 g/dl (12.0-15.5); LYMPH # 1.4 10^3/uL (1.5-4.5); LYMPH % 17.8 % (24.0-44.0); MEAN CORPUSCULAR HEMOGLOBIN 28.8 pg (27.0-33.0); MEAN CORPUSCULAR HGB CONC 29.5 g/dl (32.0-36.5); MEAN CORPUSCULAR VOLUME 97.5 fl (80.0-96.0); MONO # 0.9 10^3/uL (0.0-0.8); MONO % 11.5 % (0.0-5.0); NEUTROPHILS # 4.8 10^3/uL (1.8-7.7); NEUTROPHILS % 63.3 % (36.0-66.0); PLATELET COUNT, AUTOMATED 170 10^3/uL (150-450); RED BLOOD COUNT 3.58 10^6/uL (4.00-5.40); WHITE BLOOD COUNT 7.6 10^3/uL (4.0-10.0)
[2019-07-27] MEDS: OYSTER SHELL CALCIUM 500 MG TAB PO SCH (13:20)
--- NOTE | 2019-07-27 20:33 | IPN ---
DATE: 07/27/2019 Mrs. Hernandez is seen this morning on her bedside. She was dialyzed yesterday, as she had missed dialysis on Tuesday. Today is her regular dialysis day. Patient wishes to have a meeting with the physical therapist and her daughter in order to discuss plans for discharge to home. She did not want to go to dialysis this morning; however, she was willing to go late afternoon. I have reviewed with her about need for dialysis, as her potassium level was 6.0 yesterday and likely to have hyperkalemia again. She did not have any new labs done today. She denies any nausea, vomiting, dyspnea, or chest pain. PHYSICAL EXAMINATION: Temperature is 97.2 degrees Fahrenheit, heart rate 80 per minute, and respiratory rate 16 per minute, blood pressure 135/68 mm of mercury, and oxygen saturation 98% on room air. Head is atraumatic. Neck is supple and without jugular venous distention (JVD) or thyroid enlargement. Heart sounds are regular and lungs clear to auscultation. Abdomen soft and nontender, and ascites is present. Extremities without any cyanosis or clubbing. She has a left below-knee amputation, and stump has a wound vacuum-assisted closure (VAC) dressing. She did not have any chemistry done today. Her WBC count is 7.6, hemoglobin 10.3, and hematocrit 34.9. PROBLEMS: 1. End-stage renal disease. Patient is going to be dialyzed again this afternoon. She is now agreeable to go for dialysis late afternoon. We will try to remove about 1 liter of fluid as tolerated. 2. Hyperkalemia. Her labs done yesterday showed potassium level of 6.0. She was dialyzed with low potassium bath. She will be dialyzed again with 2.0 mEq potassium bath today. Her electrolytes should be checked again prior to next dialysis on Tuesday. 3. Anemia. Her anemia has been stable, and she will continue to receive Aranesp once a week. 4. Infected left leg stump. Patient is now on doxycycline, and she also has a wound VAC dressing.
[2019-07-27] MEDS: **NOTE PATIENT COMMENT** MISC XX SCH (21:00)
[2019-07-27] MEDS: SIMVASTATIN 20 MG TAB PO SCH (21:25)
[2019-07-27] MEDS: traZODone 100 MG TAB PO SCH (21:25)
[2019-07-27] MEDS: GABAPENTIN 100 MG CAP PO SCH (21:25)
[2019-07-28] MEDS: oxyCODONE 5MG TAB PO PRN ×3 (00:43→22:06)
[2019-07-28] MEDS: LEVOTHYROXINE 125MCG TABLET (0.125MG) PO SCH (05:57)
[2019-07-28] MEDS: HEPARIN SOD (PORCINE) 5000 UNITS/ML VIAL SC SCH ×3 (05:57→20:33)
[2019-07-28 06:00] VITALS: BP 121/72
[2019-07-28] MEDS: ALBUTEROL SULFATE 2.5 MG/0.5 ML INH NEB SOLN NEB SCH ×4 (07:22→20:00)
[2019-07-28] MEDS: HumaLOG INSULIN (NovoLOG) PER UNIT SC SCH ×4 (08:34→20:58)
[2019-07-28] MEDS: DOXYCYCLINE HYCLATE 100 MG TAB PO SCH ×2 (08:35→20:32)
[2019-07-28] MEDS: MIDODRINE 5 MG TAB PO SCH ×3 (08:35→16:00)
[2019-07-28] MEDS: CALCIUM ACETATE 667 MG GELCAP PO SCH ×3 (08:35→17:39)
[2019-07-28] MEDS: FAMOTIDINE 20 MG TAB PO SCH (08:36)
[2019-07-28] MEDS: rOPINIRole 2MG TAB PO SCH ×2 (08:36→20:33)
[2019-07-28] MEDS: LEVEMIR (INSULIN DETEMIR) 1 UNITS/0.01ML SC SCH ×2 (08:37→20:35)
[2019-07-28] MEDS: LIDOCAINE 5% (LIDODERM) PATCH TD SCH (09:00)
--- NOTE | 2019-07-28 09:00 | IPNPDOC ---
Text Note Date of Service The patient was seen on 07/28/19. NOTE Subjective: Patient is a 68-year-old female who is currently on group home status. Patient was seen today for her weekly visit. Patient says she is doing well today. Over the last week, patient said that her below the knee amputation stump had been more red and was bothering her more. Patient was placed on doxycycline and this is improved from the last few days. Patient also was complaining about a rash on her back which is better when she uses the powder that is at her bedside. Patient says that she is doing well. Patient is working with physical therapy and family in order to work out using a pivot disc in order to transfer from bed to chair and to toilet. Patient says she is able to move to sit on the edge of the bed. Patient does not have any complaints today. Review of systems General: Patient denies fevers HEENT: Patient denies headaches Cardiovascular: Patient denies chest pain Respiratory: Patient denies shortness of breath, cough GI: Patient denies abdominal pain, nausea, vomiting, diarrhea : Patient denies pain or difficulty with urination Neurological: Patient denies numbness or tingling in extremities Extremities: Patient says after her dressing changes she will have some pain in her right foot however, this subsides quickly. Objective: Vitals: (see below) General: No acute distress, laying comfortably in bed. HEENT: Normocephalic, atraumatic, moist mucous membranes. Neck: No JVD or lymphadenopathy Cardiac: RRR, No murmurs Pulm: Clear to auscultation b/l. No wheezing, rhonchi Abd: Nontender however, her abdomen is slightly distended. Ext: There is no edema in the lower right leg. The stump on the left leg does have some erythema underneath the dressing however, the wound itself shows healthy granulation tissue. There are a few areas of skin breakdown around the stump where the wound VAC dressing is. Skin: Some areas of blanching erythema on the back mostly on the lower left s gideon. This is flat and does not have any papules. Labs (see below) Images: No new imaging has been performed. Assessment/Plan 1. Stump cellulitis. Patient has a wound VAC in place. Patient is currently on doxycycline we will continue to monitor. Wound VAC dressing was changed today. 2. Patient liver disease. Patient has weekly paracentesis. Patient had her paracentesis on Tuesday. Has requested to have additional fluid removed on Tuesday next week 3. End-stage renal disease. Patient is continuing on her regularly scheduled dialysis. 4. Hqq-glwauhb-fvvlemgxz diabetes mellitus. Patient is stable on her basal bolus insulin. 5. Rash. The rash on her patient's back appears to be candidal dermatitis as it is being treated with topical Mycolog and this is helping. DVT prophy: Heparin 5000 units every 8 hours Dispo: Pending other placement in a group home facility or a safe discharge home with the patient's daughter. VS,Fishbone, I+O VS, Fishbone, I+O Vital Signs Date Time Temp Pulse Resp B/P (MAP) Pulse Ox O2 Delivery O2 Flow Rate FiO2 07/28/19 06:00 97.3 81 16 121/72 (88) 98 I&O- Last 24 Hours up to 6 AM 07/28/19 06:00 Intake Total 896 ml Output Total 1260 ml Balance -364 ml GME ATTESTATION GME ATTESTATION My faculty preceptor for this patient encounter was physically present during the encounter and was fully available. All aspects of the patient interview, examination, medical decision making process, and medical care plan development were reviewed and approved by the faculty preceptor. The faculty preceptor is aware and concurs with the plan as stated in the body of this note and will attest to such by his/her cosignature. ATTENDING NOTE I, Dede Carrizales, have independently examined this patient and performed my own physical exam, as well as reviewed the documentation and edited where necessary. I have discussed in detail with the resident / student the findings and plan of treatment as documented by the resident / student and edited their note. I agree with their findings and treatment plan and have edited their documentation. I will continue to follow the patient during this hospital stay. TOY MANN DO Jul 28, 2019 09:00 DEDE CARRIZALES MD Jul 28, 2019 10:59
[2019-07-28] MEDS: MICONAZOLE 2 % POWDER (DESENEX) TOP SCH ×2 (11:14→20:34)
[2019-07-28] MEDS: SILVER SULFADIAZINE 1% CR 50 GM JAR TOP SCH ×2 (11:14→20:34)
[2019-07-28] MEDS: OYSTER SHELL CALCIUM 500 MG TAB PO SCH (13:01)
--- NOTE | 2019-07-28 13:32 | IPN ---
DATE OF SERVICE: 07/28/2019 SUBJECTIVE: The patient was seen and examined at the bedside today morning. She was sitting up and doing her painting. She continues to have wound vacuum-assisted closure (VAC) in the left leg. She is afebrile. She was dialyzed yesterday. She tolerated the hemodialysis procedure well. The patient reports that she is probably going to go home on Tuesday, and she wants to have her ascitic tap done before she goes home. OBJECTIVE Vital signs: Temperature is 97.3 degrees Fahrenheit, blood pressure 121/72, pulse is 81, respiratory rate of 16, saturating 98% on room air. Intake and output: Ultrafiltration with hemodialysis was 1 liter yesterday. Weight in the bed scale is not available. PHYSICAL EXAMINATION: General: The patient is awake, alert, oriented times three, sitting up in the bed in no apparent distress. Head and neck examination: Extraocular muscles intact. Pupils equally round and reactive to light. Mucous membranes are moist. Neck is supple. There is no jugular venous distention (JVD). Cardiovascular: S1, S2, 2+ edema of the lower extremities. Respiratory: Chest is clear to auscultation bilaterally. Bilateral equal air entry. No rales or rhonchi. Abdomen is soft. Positive bowel sounds. Moderate amount of ascites was noted. Musculoskeletal: The patient has left below-knee amputation. Amputation site has a wound VAC. Right leg has dressings on the ulcers. Central nervous system (DIRECTOR OF EVENT SALES): No focal deficit. Power is 5/5 in all extremities. LABORATORY REVIEW: Complete blood count (CBC) showed a WBC of 7.6, hemoglobin 10.3 (that is from yesterday). Basic metabolic profile (BMP) is from 07/26/2019. There is no new BMP available. CURRENT INPATIENT MEDICATIONS: The patient's medications were all reviewed by me. There is no change in the medications today as compared with yesterday. The patient is currently on doxycycline, which was started on 07/26/2019. ASSESSMENT AND PLAN: 1. End-stage renal disease, on hemodialysis. The patient's regular dialysis days are Tuesday, Tuesday, Tuesday. She was dialyzed yesterday. Next hemodialysis will be on Tuesday. 2. Infected left below-knee amputation site and stump. The patient has a wound VAC. She is also on doxycycline. 3. Anemia in end-stage renal disease. Hemoglobin is stable with current dose of Aranesp 200 mcg with dialysis. 4. Recurrent ascites. The patient gets ascitic tap done once a month on Wednesdays. However, she is planning to go home on Tuesday, and we shall try to arrange the ascitic tap done on Tuesday morning before she goes home.
[2019-07-28] MEDS: GABAPENTIN 100 MG CAP PO SCH (20:32)
[2019-07-28] MEDS: traZODone 100 MG TAB PO SCH (20:32)
[2019-07-28] MEDS: **NOTE PATIENT COMMENT** MISC XX SCH (20:33)
[2019-07-28] MEDS: SIMVASTATIN 20 MG TAB PO SCH (20:33)
[2019-07-28] MEDS: ONDANSETRON 4 MG ORAL DISINTEGRATING TAB (Q0162 PER 1MG) PO PRN (23:28)
[2019-07-29] MEDS: diphenhydrAMINE 25 MG CAP PO PRN ×2 (03:09→11:48)
[2019-07-29] MEDS: LEVOTHYROXINE 125MCG TABLET (0.125MG) PO SCH (05:32)
[2019-07-29] MEDS: HEPARIN SOD (PORCINE) 5000 UNITS/ML VIAL SC SCH ×3 (05:32→21:58)
[2019-07-29 06:00] VITALS: BP 102/58
[2019-07-29] MEDS: HumaLOG INSULIN (NovoLOG) PER UNIT SC SCH ×4 (07:26→21:00)
[2019-07-29] MEDS: ALBUTEROL SULFATE 2.5 MG/0.5 ML INH NEB SOLN NEB SCH ×4 (07:45→20:00)
[2019-07-29] MEDS: LIDOCAINE 5% (LIDODERM) PATCH TD SCH (07:51)
[2019-07-29] MEDS: rOPINIRole 2MG TAB PO SCH ×2 (08:23→21:57)
[2019-07-29] MEDS: CALCIUM ACETATE 667 MG GELCAP PO SCH ×3 (08:23→17:49)
[2019-07-29] MEDS: FAMOTIDINE 20 MG TAB PO SCH (08:23)
[2019-07-29] MEDS: MIDODRINE 5 MG TAB PO SCH ×3 (08:23→17:50)
[2019-07-29] MEDS: DOXYCYCLINE HYCLATE 100 MG TAB PO SCH (08:23)
[2019-07-29] MEDS: MICONAZOLE 2 % POWDER (DESENEX) TOP SCH ×2 (08:24→21:59)
[2019-07-29] MEDS: SILVER SULFADIAZINE 1% CR 50 GM JAR TOP SCH ×2 (08:24→21:58)
[2019-07-29] MEDS: LEVEMIR (INSULIN DETEMIR) 1 UNITS/0.01ML SC SCH ×2 (10:32→21:57)
[2019-07-29] MEDS: OYSTER SHELL CALCIUM 500 MG TAB PO SCH (12:53)
[2019-07-29] MEDS: oxyCODONE 5MG TAB PO PRN (14:35)
[2019-07-29 17:52] LABS: BASO # 0.1 10^3/uL (0.0-0.2); EOS # 0.4 10^3/uL (0.0-0.5); EOS % 4.3 % (0.0-3.0); HEMATOCRIT 37.6 % (36.0-47.0); HEMOGLOBIN 11.3 g/dl (12.0-15.5); LYMPH # 1.5 10^3/uL (1.5-5.0); LYMPH % 17.4 % (24.0-44.0); MEAN CORPUSCULAR HGB CONC 30.1 g/dl (32.0-36.5); MEAN CORPUSCULAR VOLUME 99.7 fl (80.0-96.0); MONO % 11.7 % (0.0-5.0); NEUTROPHILS # 5.2 10^3/uL (1.5-8.5); NEUTROPHILS % 62.8 % (36.0-66.0); PLATELET COUNT, AUTOMATED 180 10^3/uL (150-450); RED BLOOD COUNT 3.77 10^6/uL (4.00-5.40); WHITE BLOOD COUNT 8.3 10^3/uL (4.0-10.0)
[2019-07-29] MEDS ORDERED: CEFDINIR 300 MG CAP (OMNICEF) PO ONE (18:00)
[2019-07-29] MEDS: LINEZOLID 600MG TABLET (ZYVOX) PO SCH (18:43)
[2019-07-29] MEDS: **NOTE PATIENT COMMENT** MISC XX SCH (21:00)
[2019-07-29] MEDS: SIMVASTATIN 20 MG TAB PO SCH (21:56)
[2019-07-29] MEDS: GABAPENTIN 100 MG CAP PO SCH (21:57)
[2019-07-29] MEDS: traZODone 100 MG TAB PO SCH (21:57)
[2019-07-30] MEDS: SILVER SULFADIAZINE 1% CR 50 GM JAR TOP SCH ×3 (01:00→20:44)
[2019-07-30] MEDS: MICONAZOLE 2 % POWDER (DESENEX) TOP SCH ×3 (01:00→20:45)
[2019-07-30] MEDS: diphenhydrAMINE 25 MG CAP PO PRN ×2 (01:55→22:12)
[2019-07-30 06:00] VITALS: BP 114/61
[2019-07-30] MEDS: LINEZOLID 600MG TABLET (ZYVOX) PO SCH (06:01)
[2019-07-30] MEDS: rOPINIRole 2MG TAB PO SCH ×2 (06:01→20:43)
[2019-07-30] MEDS: MIDODRINE 5 MG TAB PO SCH ×3 (06:02→16:30)
[2019-07-30] MEDS: FAMOTIDINE 20 MG TAB PO SCH (06:02)
[2019-07-30] MEDS: HEPARIN SOD (PORCINE) 5000 UNITS/ML VIAL SC SCH ×3 (06:02→20:45)
[2019-07-30] MEDS: LEVOTHYROXINE 125MCG TABLET (0.125MG) PO SCH (06:02)
[2019-07-30] MEDS: CALCIUM ACETATE 667 MG GELCAP PO SCH ×3 (06:02→17:28)
[2019-07-30] MEDS: LIDOCAINE 5% (LIDODERM) PATCH TD SCH (06:03)
[2019-07-30] MEDS: ALBUTEROL SULFATE 2.5 MG/0.5 ML INH NEB SOLN NEB SCH ×4 (07:44→20:00)
[2019-07-30] MEDS: LACTOBACILLUS ACIDOPHILUS CAP (BACID) PO SCH ×2 (08:00→17:28)
[2019-07-30] MEDS ORDERED: LINEZOLID 600 MG in IV 1 EA IV SCH (08:15)
[2019-07-30] MEDS ORDERED: MEROPENEM INJ 1 GM in IV 1 EA IV SCH (08:15)
[2019-07-30] MEDS ORDERED: VANCOMYCIN HCL 1,000 MG, VIAL MATE ADAPTER 1 EACH in D5W 250 ML IV SCH (08:30)
[2019-07-30] MEDS: LEVEMIR (INSULIN DETEMIR) 1 UNITS/0.01ML SC SCH ×2 (08:38→20:42)
[2019-07-30] MEDS: HumaLOG INSULIN (NovoLOG) PER UNIT SC SCH ×4 (08:40→20:34)
[2019-07-30 09:07] LABS: BASO # 0.1 10^3/uL (0.0-0.2); BASO % 0.7 % (0.0-1.0); EOS # 0.4 10^3/uL (0.0-0.5); HEMATOCRIT 34.2 % (36.0-47.0); HEMOGLOBIN 10.3 g/dl (12.0-15.5); LYMPH # 1.4 10^3/uL (1.5-5.0); LYMPH % 19.1 % (24.0-44.0); MEAN CORPUSCULAR HGB CONC 30.1 g/dl (32.0-36.5); MEAN CORPUSCULAR VOLUME 99.7 fl (80.0-96.0); MONO # 0.9 10^3/uL (0.0-0.8); MONO % 12.3 % (0.0-5.0); NEUTROPHILS # 4.6 10^3/uL (1.5-8.5); PLATELET COUNT, AUTOMATED 153 10^3/uL (150-450); RED BLOOD COUNT 3.43 10^6/uL (4.00-5.40); WHITE BLOOD COUNT 7.6 10^3/uL (4.0-10.0)
[2019-07-30 09:31] LABS: C REACTIVE PROTEIN QUANTITATIV 3.17 MG/DL (0.00-0.30); CALCIUM LEVEL 7.2 MG/DL (8.8-10.2); CREATININE FOR GFR 5.47 MG/DL (0.55-1.30); GLOMERULAR FILTRATION RATE 8.2 (>39); MAGNESIUM LEVEL 2.1 MG/DL (1.8-2.4); POTASSIUM SERUM 5.4 MEQ/L (3.5-5.1)
--- NOTE | 2019-07-30 09:48 | IPNPDOC ---
Text Note Date of Service The patient was seen on 07/30/19. NOTE Subjective: Patient was seen and examined at bedside. Patient says she is feeling more tired and that her leg is hurting more. Yesterday, the patient's stump became more erythematous and warm to the touch. Patient was started on broad-spectrum IV antibiotics. Patient was planned going home tomorrow her, because of these new developments, patient will be staying for further IV antib iotics. Patient says she is able to eat and drink however, she is feeling ill. Patient says that her belly feels like it is filling up which is common for her as she needs weekly paracentesis. Review of systems General: Patient denies fevers HEENT: Patient denies headaches Cardiovascular: Patient denies chest pain Respiratory: Patient denies shortness of breath, cough GI: Patient endorses feeling her abdomen filling. Patient denies nausea or vomiting : Patient denies pain or difficulty with urination Neurological: Patient denies numbness or tingling in extremities Extremities: Increased pain in her left below knee amputation. Objective: Vitals: (see below) General: No acute distress, laying comfortably in bed. HEENT: Normocephalic, atraumatic, moist mucous membranes. Neck: No JVD or lymphadenopathy Cardiac: RRR, No murmurs Pulm: Clear to auscultation b/l. No wheezing, rhonchi Abd: Abdomen is distended and dull to percussion. No tenderness to palpation. Ext: No edema or cyanosis. Radial, posterior tibial, and dorsalis pedis pulses equal bilaterally. Labs (see below) Images: No new imaging is been performed. Assessment/Plan 1. Stump cellulitis. This appears to be worsening. Patient will be placed on linezolid and meropenem. Patient had a wound culture back in March which grew out vancomycin-resistant enterococcus which is why linezolid has been chosen. Blood cultures are pending. We will continue to monitor the patient's leg for worsening. 2. End-stage liver disease. Patient has weekly paracentesis. 3. End-stage renal disease. Continuing on regular scheduled dialysis. Nephrology is following along. 4. Zpg-kyjizyb-kyyvvcfqo diabetes mellitus. Patient is stable on her basal and sliding scale insulin regimen. 5. Rash. The rash on the patient's back is improving. DVT prophy: Heparin 5000 units every 8 hours Dispo: Pending clinical improvement VS,Fishbone, I+O VS, Fishbone, I+O Laboratory Tests 07/29/19 17:42 Red Blood Count 3.77 L, Mean Corpuscular Volume 99.7 H, Mean Corpuscular Hemoglobin 30.0, Mean Corpuscular Hemoglobin Concent 30.1 L, Red Cell Distribution Width 19.3 H, Neutrophils (%) (Auto) 62.8, Lymphocytes (%) (Auto) 17.4 L, Monocytes (%) (Auto) 11.7 H, Eosinophils (%) (Auto) 4.3 H, Basophils (%) (Auto) 1.0, Neutrophils # (Auto) 5.2, Lymphocytes # (Auto) 1.5, Monocytes # (Auto) 1.0 H, Eosinophils # (Auto) 0.4, Basophils # (Auto) 0.1 07/30/19 08:56 Red Blood Count 3.43 L, Mean Corpuscular Volume 99.7 H, Mean Corpuscular Hemoglobin 30.0, Mean Corpuscular Hemoglobin Concent 30.1 L, Red Cell Distribution Width 19.4 H, Neutrophils (%) (Auto) 61.0, Lymphocytes (%) (Auto) 19.1 L, Monocytes (%) (Auto) 12.3 H, Eosinophils (%) (Auto) 5.0 H, Basophils (%) (Auto) 0.7, Neutrophils # (Auto) 4.6, Lymphocytes # (Auto) 1.4 L, Monocytes # (Auto) 0.9 H, Eosinophils # (Auto) 0.4, Basophils # (Auto) 0.1, Calcium Level 7.2 L Vital Signs Date Time Temp Pulse Resp B/P (MAP) Pulse Ox O2 Delivery O2 Flow Rate FiO2 07/30/19 06:00 96.8 80 16 114/61 (78) 97 I&O- Last 24 Hours up to 6 AM 07/30/19 06:00 Intake Total 1672 ml Balance 1672 ml GME ATTESTATION GME ATTESTATION My faculty preceptor for this patient encounter was physically present during the encounter and was fully available. All aspects of the patient interview, examination, medical decision making process, and medical care plan development were reviewed and approved by the faculty preceptor. The faculty preceptor is aware and concurs with the plan as stated in the body of this note and will attest to such by his/her cosignature. ATTENDING NOTE I, Dede Carrizales, have independently examined this patient and performed my own physical exam, as well as reviewed the documentation and edited where necessary. I have discussed in detail with the resident / student the findings and plan of treatment as documented by the resident / student and edited their note. I agree with their findings and treatment plan and have edited their documentation. I will continue to follow the patient during this hospital stay. TOY MANN DO Jul 30, 2019 09:48 DEDE CARRIZALES MD Jul 30, 2019 14:42
[2019-07-30] MEDS ORDERED: HEPARIN 1,000 UNITS/ML 10ML VIAL (FOR RADIOLOGY& DIALYSIS ONLY) IV ONE (10:45)
[2019-07-30] MEDS: OYSTER SHELL CALCIUM 500 MG TAB PO SCH (13:52)
[2019-07-30] MEDS: MEROPENEM INJ 500 MG in IV 1 EA IV SCH (16:31)
[2019-07-30] MEDS: oxyCODONE 5MG TAB PO PRN ×2 (16:31→20:43)
[2019-07-30] MEDS: LINEZOLID 600 MG in IV 1 EA IV SCH (17:27)
[2019-07-30] MEDS ORDERED: CEFDINIR 300 MG CAP (OMNICEF) PO SCH (18:00)
[2019-07-30] MEDS: traZODone 100 MG TAB PO SCH (20:42)
[2019-07-30] MEDS: GABAPENTIN 100 MG CAP PO SCH (20:42)
[2019-07-30] MEDS: SIMVASTATIN 20 MG TAB PO SCH (20:43)
[2019-07-30] MEDS: **NOTE PATIENT COMMENT** MISC XX SCH (20:55)
--- NOTE | 2019-07-30 21:06 | IPN ---
DATE: 07/30/2019 SUBJECTIVE: The patient was seen and examined at the bedside today morning during hemodialysis. She is tolerating the hemodialysis procedure well. She denies any active complaints. OBJECTIVE: Vital signs: Temperature is 96.8 degrees Fahrenheit, blood pressure 114/61, pulse is 18, respiratory rate of 16, saturating 97% on room air. Intake and output: There is no urine output recorded. Weight in the bed scale is not available. PHYSICAL EXAMINATION: General: The patient is awake, alert, oriented times three, laying in bed getting hemodialysis done. Head and neck exam: Extraocular muscles intact. Pupils equally round and reactive to light. Mucous membranes are moist. Neck is supple. There is no JVD. Cardiovascular: S1, S2, 2+ edema of the lower extremity. Respiratory: Chest is clear to auscultation bilaterally. Bilateral equal air entry. No rales or rhonchi. Abdomen: Soft, obese, positive bowel sounds. Moderate amount of ascites was noted. Musculoskeletal: She has a wound VAC on the left below-knee amputation site and 2+ edema of the right lower extremity with some ulcers covered with dressings. ROOFER ASSISTANT: No focal deficit, power is 5/5 in bilateral upper extremities. LABORATORY REVIEW: CBC showed WBC 7.6, hemoglobin is 10.3, platelets are 153. BMP showed sodium 136, potassium 5.4, chloride of 101, bicarbonate 26, BUN 65, creatinine is 5.4, magnesium 2.1, C-reactive protein is 3.1. CURRENT INPATIENT MEDICATIONS: The patient's medications were all reviewed by me. There is no change in the medications today. Her doxycycline has been stopped. She has been started on Zyvox 600 mg IV every 12 hours and she has been started on meropenem 500 mg every 24 hours. ASSESSMENT/PLAN: 1. End-stage renal disease on hemodialysis. The patient is being dialyzed today according to Tuesday, Tuesday, Tuesday schedule. Ultrafiltration goal will be at least 1 to 1.5 liters as tolerated by her blood pressure. 2. Infected left below-knee amputation site stump. I see that oral doxycycline has been stopped. Blood cultures are pending so far. She has been started on Zyvox an meropenem. Rest of the management is as per primary team and infectious disease recommendations. 3. Anemia in end-stage renal disease. The patient's hemoglobin level is optimal. Continue current dose of Aranesp with dialysis. 4. Recurrent ascites. The patient is going to get the ascitic tap done tomorrow morning.
[2019-07-31] MEDS: LINEZOLID 600 MG in IV 1 EA IV SCH ×2 (05:00→18:06)
[2019-07-31] MEDS: HEPARIN SOD (PORCINE) 5000 UNITS/ML VIAL SC SCH ×3 (05:10→21:50)
[2019-07-31] MEDS: LEVOTHYROXINE 125MCG TABLET (0.125MG) PO SCH (05:58)
[2019-07-31 06:00] VITALS: BP 113/61
[2019-07-31] MEDS: ALBUTEROL SULFATE 2.5 MG/0.5 ML INH NEB SOLN NEB SCH ×4 (07:03→20:00)
[2019-07-31] MEDS: rOPINIRole 2MG TAB PO SCH ×2 (08:03→21:46)
[2019-07-31] MEDS: MIDODRINE 5 MG TAB PO SCH ×3 (08:04→17:08)
[2019-07-31] MEDS: HumaLOG INSULIN (NovoLOG) PER UNIT SC SCH ×4 (08:04→21:49)
[2019-07-31] MEDS: FAMOTIDINE 20 MG TAB PO SCH (08:04)
[2019-07-31] MEDS: CALCIUM ACETATE 667 MG GELCAP PO SCH ×3 (08:04→17:08)
[2019-07-31] MEDS: LACTOBACILLUS ACIDOPHILUS CAP (BACID) PO SCH ×2 (08:04→17:08)
[2019-07-31] MEDS: LEVEMIR (INSULIN DETEMIR) 1 UNITS/0.01ML SC SCH ×2 (08:05→21:49)
[2019-07-31] MEDS: MICONAZOLE 2 % POWDER (DESENEX) TOP SCH ×2 (08:06→21:48)
[2019-07-31] MEDS: SILVER SULFADIAZINE 1% CR 50 GM JAR TOP SCH ×2 (08:06→21:48)
[2019-07-31] MEDS: LIDOCAINE 5% (LIDODERM) PATCH TD SCH (08:07)
[2019-07-31 09:43] LABS: HEMATOCRIT 38.8 % (36.0-47.0); HEMOGLOBIN 11.3 g/dl (12.0-15.5); MEAN CORPUSCULAR HEMOGLOBIN 28.5 pg (27.0-33.0); MEAN CORPUSCULAR HGB CONC 29.1 g/dl (32.0-36.5); MEAN CORPUSCULAR VOLUME 97.7 fl (80.0-96.0); PLATELET COUNT, AUTOMATED 174 10^3/uL (150-450); RED BLOOD COUNT 3.97 10^6/uL (4.00-5.40); WHITE BLOOD COUNT 9.2 10^3/uL (4.0-10.0)
[2019-07-31 09:53] LABS: INR 1.17; PROTHROMBIN TIME 14.6 SECONDS (11.8-14.0)
[2019-07-31 10:08] LABS: ALBUMIN 1.7 GM/DL (3.2-5.2); BILIRUBIN,TOTAL 0.4 MG/DL (0.2-1.0); CALCIUM LEVEL 7.4 MG/DL (8.8-10.2); CREATININE FOR GFR 3.94 MG/DL (0.55-1.30); POTASSIUM SERUM 4.5 MEQ/L (3.5-5.1); TOTAL PROTEIN 5.9 GM/DL (6.4-8.2)
[2019-07-31] MEDS: oxyCODONE 5MG TAB PO PRN ×3 (10:16→21:50)
--- NOTE | 2019-07-31 10:18 | IPNPDOC ---
Subjective Date Seen The patient was seen on 07/31/19. Subjective Chief Complaint/HPI Pain in left lower leg (below the knee amputation) stump. Events since last encounter 69 y/o female examined bedside this morning. Patient has a wound vac on left lower leg stump that is causing her pain. MRI of stub ordered and blood cultures still pending. Patient stated "Something needs to be done about the pain in her stump." Overall she is feeling better than yesterday. Denies SOB, active chest pain, abdominal pain, pain on urination. Scheduled for thoracentesis today. General: Reports: Normal Appetite; Denies: Chills, Night Sweats Constitutional: Denies: Chills, Fever, Night Sweats ENT: Denies: Dysphagia, Sinus Congestion, Post Nasal Drip, Sore Throat Skin: Reports: Rash, Other; Denies: Lesions, Jaundice, Itching Pulmonary: Denies: Dyspnea, Cough, Pleuritic Chest Pain Cardiovascular: Denies: Chest Pain, Palpitations, Orthopnea Gastrointestinal: Denies: Nausea, Vomiting, Abdominal Pain, Diarrhea, Constipation Genitourinary: Denies: Dysuria Hematologic: Denies: Enlarged Lymph Nodes Musculoskeletal: Reports: Leg Pain (Pain on left leg stump) Neurological: Denies: Change in speech, Confusion Psych: Denies: Other Psych Objective Physical Examination General Exam: Positive: Alert, Cooperative, No Acute Distress ENT Exam: Positive: Atraumatic, Mucous membr. moist/pink, Pharynx Normal Chest Exam: Positive: Clear to auscultation, Normal air movement Heart Exam: Positive: Rate Normal, Normal S1, Normal S2 Abdomen Exam: Positive: Normal bowel sounds, Soft (obese, NT , distended with anasarca,1-2+ pitting edema; no ascites wave demonstrated on exam;) Extremity Exam: Positive: Swelling, Other (left BKA stump with wound vac and mild erythema to thigh but no sharp demarcation; Right pretib with warm,erythema; covered wounds not undressed. Dr. Love will be seeing patient to reevaluate today.) Psych Exam: Positive: Mental status NL, Mood NL, Oriented x 3 Assessment /Plan Assessment Plan: Assessment/Plan Patient sitting on side of bed coloring when entered the room, LE hanging down. Patient was AOX3, no acute distress, pleasant, cooperative but expressed concern about the pain in her left leg stump area. Lower legs felt warm to touch, some erythema and 2 + pitting edema . Wounds on legs were not uncovered/examined as Dr. Osorio is coming in today to reevaluate them. 1. Stump cellulitis. This appears to be worsening. Patient on linezolid and meropenem. Patient had a wound culture back in March which grew out vancomycin- resistant enterococcus which is why linezolid has been chosen. Blood cultures are pending. We will continue to monitor the patient's leg for worsening. MRI of stump ordered to evaluate for ostemyelitis. 2. End-stage liver disease. Patient has weekly paracentesis. 3. End-stage renal disease. Continuing on regular scheduled dialysis. Nephrology is following along. 4. Lte-kdzuczo-yejtrntpk diabetes mellitus. Patient is stable on her basal and sliding scale insulin regimen. 5. Rash. The rash on the patient's back is improving. Marjorie ANDREWS Plan/VTE VTE Prophylaxis Ordered?: Yes VS, I&O, 24H, [facility] Vital Signs/I&O Vital Signs Date Time Temp Pulse Resp B/P (MAP) Pulse Ox O2 Delivery O2 Flow Rate FiO2 07/31/19 06:00 97.9 87 17 113/61 (78) 95 I&O- Last 24 Hours up to 6 AM 07/31/19 06:00 Intake Total 1410 ml Output Total 1000 ml Balance 410 ml Laboratory Data 24H LABS Laboratory Tests 2 07/30/19 13:44: Bedside Glucose (Misc Panel) 208H 07/30/19 17:27: Bedside Glucose (Misc Panel) 141H 07/30/19 20:11: Bedside Glucose (Misc Panel) 181H 07/31/19 06:15: Bedside Glucose (Misc Panel) 123H 07/31/19 09:20: Nucleated Red Blood Cells % (auto) 0.3H, Prothrombin Time 14.6H, Prothromb Time International Ratio 1.17 CBC/BMP Laboratory Tests 07/31/19 09:20 Red Blood Count 3.97 L, Mean Corpuscular Volume 97.7 H, Mean Corpuscular Hemoglobin 28.5, Mean Corpuscular Hemoglobin Concent 29.1 L, Red Cell Distribution Width 19.8 H Microbiology Microbiology 07/30/19 Blood Culture - Preliminary, Resulted No growth after 24 hours . All specim... 07/30/19 Blood Culture - Preliminary, Resulted No growth after 24 hours . All specim... TIM MULLEN Jul 31, 2019 10:18
[2019-07-31] MEDS: OYSTER SHELL CALCIUM 500 MG TAB PO SCH (11:38)
--- NOTE | 2019-07-31 11:44 | IPNPDOC ---
Text Note Date of Service The patient was seen on 07/31/19. NOTE Subjective: Patient was seen and examined while she was sitting up in bed. Patient says that she is feeling better than she was yesterday. He says the pain in her stump is slightly better than the previous day. She says her belly is filling up with fluid and she is due for a paracentesis in the coming days. Patient said dialysis went well yesterday. She denies any fevers or feeling ill. She has been able to eat and drink without difficulty. There were no acute events overnight. Review of systems General: Patient denies fevers HEENT: Patient denies headaches Cardiovascular: Patient denies chest pain Respiratory: Patient denies shortness of breath, cough GI: Patient endorses her abdomen being more tense and full. She denies any nausea vomiting or diarrhea. : Patient denies pain or difficulty with urination Neurological: Patient denies numbness or tingling in extremities Extremities: Patient says the stump feel slightly better than yesterday but is still swollen. Objective: Vitals: (see below) General: No acute distress, sitting up in bed comfortably. HEENT: Normocephalic, atraumatic, moist mucous membranes. Neck: No JVD or lymphadenopathy Cardiac: RRR, No murmurs Pulm: Clear to auscultation b/l. No wheezing, rhonchi Abd: Patient's abdomen is distended and dull to percussion. There is no tenderness. Ext: There is edema surrounding the stump and there is erythema underneath the dressing. There are some open areas underneath the dressing and surrounding the dressing that are erythematous. Skin: The areas of erythema with slight scale on the outside have improved. They're now just located mostly on the right flank. Labs (see below) Images: No imaging has been performed Assessment/Plan 1. Stump cellulitis. Patient was started on linezolid and meropenem yesterday as the patient has a history of vancomycin-resistant enterococcus. We will continue to monitor the patient. I have spoken to Dr. Fontanez of infectious disease who will see the patient today. A MRI has been ordered to rule out osteomyelitis. 2. End stage liver disease patient has her weekly paracentesis coming up in the next day or 2. 3. End-stage renal disease. Patient will continue on her regular dialysis schedule. Nephrology is following the patient and we appreciate their help treating the patient. 4. Pah-hoibsgk-sejedbjoh diabetes mellitus. Patient is stable on her basal and sliding scale insulin regimen. 5. Rash. The rash on the patient's back is improving. We will continue with the miconazole powder. DVT prophy: Heparin 5000 units every 8 hours. Dispo: Pending clinical improvement. I saw and evaluated the patient. I agree with the findings and plan of care as documented in the above note Hannah PFEIFFER, I+O VSHannah, I+O Laboratory Tests 07/31/19 09:20 Red Blood Count 3.97 L, Mean Corpuscular Volume 97.7 H, Mean Corpuscular Hemoglobin 28.5, Mean Corpuscular Hemoglobin Concent 29.1 L, Red Cell Distribution Width 19.8 H, Calcium Level 7.4 L, Aspartate Amino Transf (AST/SGOT) 19, Alanine Aminotransferase (ALT/SGPT) 31, Alkaline Phosphatase 351 H, Total Bilirubin 0.4, Total Protein 5.9 L, Albumin 1.7 L Vital Signs Date Time Temp Pulse Resp B/P (MAP) Pulse Ox O2 Delivery O2 Flow Rate FiO2 07/31/19 11:04 18 07/31/19 06:00 97.9 87 113/61 (78) 95 I&O- Last 24 Hours up to 6 AM 07/31/19 05:59 Intake Total 1410 ml Output Total 1000 ml Balance 410 ml TOY MANN DO Jul 31, 2019 11:44 EDWIN MARISCAL MD Aug 04, 2019 10:30
[2019-07-31 14:25] LABS: C REACTIVE PROTEIN QUANTITATIV 3.73 MG/DL (0.00-0.30)
--- NOTE | 2019-07-31 15:08 | REP ---
MRI LEFT LOWER LEG: TECHNIQUE: Multiple sequences obtained in the axial, coronal and sagittal planes. The patient has had prior below knee amputation at the level of the proximal to mid tibia and fibula. Diffuse ill-defined high signal is seen on T2-weighted images throughout the visualized soft tissue structures of the left lower leg compatible with diffuse edema and cellulitis. No definite abscess is seen. There does appear to be a moderate effusion at the knee. At the very distal end of the remaining tibia and fibula, there is mild ill-defined high signal on T2-weighted images in these bones. This could indicate mild degree of focal osteomyelitis in the very distal end of the tibia and fibula. Other osseous structures demonstrate normal marrow signal more superiorly. IMPRESSION: Diffuse edema and cellulitis. Moderate joint effusion at the knee. Mild ill-defined high signal on T2 at the distal end of the remaining tibia and fibula could indicate osteomyelitis at these locations. Electronically Signed by Aureliano Rivas MD 07/31/2019 04:58 P
--- NOTE | 2019-07-31 16:56 | REP ---
Ultrasound-guided paracentesis The procedure was performed under the direct supervision of Dr. Rivas. The risks and benefits of the procedure were explained to the patient and informed consent was obtained. The largest pocket of fluid was localized in the left flank using ultrasound guidance. The skin was prepped and draped in a sterile fashion. 1% lidocaine was used as a local anesthetic. An 8-German multi side-hole catheter was inserted using trocar technique. 7,000 ml of yellow fluid was withdrawn and discarded. The patient tolerated the procedure well and there were no immediate complications. After the appropriate amount of monitored convalescence the patient was discharged from the department. Reviewed by ANTONIO Curiel 07/31/2019 03:52 P Electronically Signed by Aureliano Rivas MD 07/31/2019 04:48 P
[2019-07-31] MEDS: MEROPENEM INJ 500 MG in IV 1 EA IV SCH (17:09)
--- NOTE | 2019-07-31 18:21 | CR ---
DATE OF CONSULTATION: 07/31/2019 CONSULTING PHYSICIAN: Dr. Eugene Alves REASON FOR CONSULTATION: Left below-knee amputation (BKA) stump cellulitis, rule out osteomyelitis. HISTORY OF PRESENT ILLNESS: This patient is a 68-year-old female, status post left BKA in March 2019, status post left stump wound debridement on April 21, stump debridement and wound vacuum-assisted closure (VAC) placement on April 27, Dr. Estrella, who was admitted on June 26 for altered mental status and sepsis. On the day of admission, it was noted that she missed her dialysis appointment. Around June 28 she started complaining of right knee pain at her old stump site. She states for the last couple of weeks around that time she would repeatedly bang her right knee against cupboards on her scooter. It was very tender to touch, but she denies any drainage or ecchymosis. She states that pain is made worse with movement but improves with rest. At that time, she was started on antibiotics while admitted. She completed antibiotics, such as cefepime, ceftriaxone, levothyroxine, 2 weeks of oral linezolid, cefazolin, and doxycycline on and off. When patient was seen again today, she states in the last 1 week her left stump pain has returned. She noticed the erythema started about a week ago, and the pain got significant today. She noted that she was supposed to go home today but was unable to because the pain has returned, and she is unable to bear it. She was changed to intravenous (IV) linezolid and meropenem today due to her history of vancomycin-resistant Enterococcus (VRE). An MRI of the tibia was done, which showed distal osteomyelitis of the tibia and fibula. She did have a wound VAC placed in late May by Dr. Estrella, but no wound debridement cultures were obtained. Her current blood cultures times four were negative for any growth. Her leukocytosis improved from admission of 24.6 to 9.2. Her erythrocyte sedimentation rate (ESR) also improved from a high of 17.6 to 3.73. Patient has not noticed any improvement in her antibiotics since she was switched to IV yesterday. She does notice some edema in the leg and worries that she may have further amputation of her leg. She has no other complaints at this time. She denies any fevers, chills, nausea, vomiting, diarrhea. She does admit to having some night sweats, which are chronic, as well as constipation. She does admit to having some abdominal discomfort, especially after having a paracentesis that she had early this afternoon. She denies any tenderness to touch of her abdomen. Her vital signs have been stable since she has been on the floor. PAST MEDICAL HISTORY: 1. End-stage renal disease, on hemodialysis Tuesday, Tuesday, Tuesday. 2. End-stage liver disease with paracentesis every 1-2 weeks. 3. Type 2 diabetes. 4. Chronic anemia secondary to chronic kidney disease. 5. Peripheral vascular disease, status post left BKA. 6. Coronary artery disease, status post stenting. 7. Liver cirrhosis with recurrent ascites. 8. Heart failure with preserved ejection fraction. 9. Hypothyroidism. 10. Hypertension. 11. Dyslipidemia. 12. Depression and anxiety. PAST SURGICAL HISTORY: 1. Left BKA. 2. Left arteriovenous (AV) fistula. 3. Appendectomy 4. Hysterectomy. 5. Cataract. SOCIAL HISTORY: Marital status is . She lives with a daughter. She denies any alcohol, illicit drug use, or tobacco use. FAMILY HISTORY: Not pertinent. REVIEW OF SYSTEMS: Unless stated above, the remaining 10-point review of systems is negative. PHYSICAL EXAMINATION: VITAL SIGNS: Temperature 97.9, pulse 87, respirations 17, blood pressure 113/61 (78), pulse oximetry 95% on room air. GENERAL: This is a very pleasant 68-year-old female who does not appear in any acute distress, appropriately answering questions, lying comfortably in the bed. HEENT: Atraumatic, normocephalic. Pupils are equal, round, and reactive. Mucous membranes with no jugular venous distention (JVD) or lymphadenopathy noted. CARDIAC: Regular rate and rhythm. No audible murmurs noted. PULMONARY: Clear to auscultation bilaterally. No wheezing, rhonchi, or rales. ABDOMEN: Patient's abdomen is soft, nontender with soft palpation with slightly tender with deep palpation, status post paracentesis early this afternoon. EXTREMITIES: Pitting edema 1+ up to mid thigh on the left stump. Wound dressing in place with no discharge noted. Erythema around the wound dressing, which ends right below the knee with tenderness on palpation. LABORATORY DATA: Hematology: WBC 9.2, hemoglobin 11.3, hematocrit 38.3, platelets 174. Chemistry: Sodium 135, potassium 4.5, chloride 100, carbon dioxide 27, anion gap 8, BUN 41, creatinine 3.94, GFR 12.0, fasting glucose 210. Lactic acid 1.6. Calcium 7.4. Total bilirubin 0.4, AST 19, ALT 31, alkaline phosphatase 351, CRP 3.73, total protein 5.9, albumin 1.7. Microbiology: Blood cultures times two: No growth after 5 days. Blood cultures times two: No growth after 24 hours. Wound cultures from the left stump current pending. IMAGING: MRI of the left lower extremity shows diffuse edema and cellulitis with moderate joint effusion at the knee, mild ill-defined high signal on T2 at the distal end of the remaining tibia and fibula. Could indicate osteomyelitis at this location. ASSESSMENT AND PLAN: This is a 68-year-old female with a pertinent medical history of a below-knee amputation (BKA) of the left foot, resulting in a stump with a wound VAC in place, end-stage renal disease, on dialysis, and a history of vancomycin-resistant Enterococcus (VRE), who is complaining of left leg pain. 1. Left leg pain secondary to osteomyelitis. Patient originally was feeling better on antibiotics, when she completed 2 weeks of linezolid earlier in May. MRI of the left lower extremity did show possible osteomyelitis of the tibia and fibula, distal end. We will continue with linezolid and meropenem IV at this current time and wait for wound cultures to see if de-escalation is needed. I do believe she possibly has chronic osteomyelitis, she will need 6 weeks of antibiotics 2. End-stage renal disease. Continue with dialysis as scheduled. 3. Cie-mmarmkh-eaoxzlqus diabetes. Continue with insulin regimen per primary team. PLAN We will trend her C-reactive protein (CRP), white count is normalized, and monitor for clinical improvement. If there is no clinical improvement with the current IV antibiotics, will need to discuss with Dr. Estrella if debridement or further amputation is needed. Thank you for this consultation. My faculty preceptor for this patient encounter was physically present during the encounter and was fully available. All aspects of the patient interview, examination, medical decision making process, and medical care plan development were reviewed and approved by the faculty preceptor. The faculty preceptor is aware and concurs with the plan as stated in the body of this note and will attest to such by his/her co-signature. SHAAN
--- NOTE | 2019-07-31 20:56 | IPN ---
DATE: 07/31/2019 SUBJECTIVE: The patient was seen and examined at the bedside today morning. She is afebrile, hemodynamically stable. She was dialyzed yesterday. She tolerated the hemodialysis procedure well; 1 liter of fluid was removed. The patient is no longer at alternate level of care. Her left below-knee amputation stump is not healing. She is again on intravenous (IV) antibiotics. She continues to have left below-knee amputation site wound VAC. OBJECTIVE: Vital signs: Temperature is 97.9 degrees Farenheit., blood pressure 113/61, pulse is 87, respiratory rate of 17, saturating 95% on room air. Intake and output: Urine output is not recorded. Ultrafiltration with hemodialysis was 1 liter. Weight on the bed scale is not available. PHYSICAL EXAMINATION: General: The patient is awake, alert, oriented times three, laying in bed, no apparent distress. Head and neck exam: Extraocular muscles intact. Pupils equally round and reactive to light. Mucous membranes are moist. Neck is supple. There is no jugular venous distention (JVD). Cardiovascular: S1, S2, 2+ edema of the right lower extremity. Respiratory: Chest is clear to auscultation bilaterally. Bilateral equal air entry. No rales or rhonchi. Abdomen: Soft, obese, positive bowel sounds. Moderate amount of ascites was noted. Musculoskeletal: Wound VAC on the left below-knee amputation site and 2+ edema of the right lower extremity. Central nervous system (MANAGER OF ENGINEERING): No focal deficit. Power is 5/5 in bilateral upper extremities. LAB REVIEW: CBC showed a WBC of 9.2, hemoglobin 11.3, platelets are 174. BMP showed sodium 135, potassium 4.5, chloride 100, bicarbonate 27, BUN 41, creatinine is 3.9, albumin is 1.7, C-reactive protein is 3.7. Microbiology: Repeat blood cultures are negative so far. Wound culture is pending. IMAGING STUDIES: A paracentesis was done today and 7 liters of fluid was removed. An MRI of the lower extremity was done, which showed diffuse edema and cellulitis and moderate joint effusion at the knee, ill-defined high signal on T2 at distal end of the remaining tibia and fibula, which could indicate osteomyelitis. CURRENT INPATIENT MEDICATIONS: The patient's medications were all reviewed by me. She was started on Zyvox and meropenem yesterday. No other change in the medications today as compared with yesterday. ASSESSMENT/PLAN: 1. End-stage renal disease, on hemodialysis. The patient's regular dialysis days are Tuesday, Tuesday, Tuesday. She was dialyzed yesterday. Next hemodialysis session will be tomorrow as per regular schedule. 2. Osteomyelitis of the left below-knee amputation stump. The patient got MRI, which confirmed the osteomyelitis. She has been started on Zyvox and meropenem. The rest of the management is as per vascular surgery team. 3. Recurrent ascites. The patient got the ascitic tap done today; 7 liters of fluid was removed. 4. Anemia in end-stage renal disease. Hemoglobin is 11.3, which is optimal. 5. Hyponatremia. The patient has hypervolemic hyponatremia but sodium level improves with dialysis and fluid removal.
[2019-07-31] MEDS: **NOTE PATIENT COMMENT** MISC XX SCH (21:00)
[2019-07-31] MEDS: SIMVASTATIN 20 MG TAB PO SCH (21:46)
[2019-07-31] MEDS: GABAPENTIN 100 MG CAP PO SCH (21:47)
[2019-07-31] MEDS: traZODone 100 MG TAB PO SCH (21:47)
[2019-08-01] MEDS: LINEZOLID 600 MG in IV 1 EA IV SCH ×2 (05:30→17:09)
[2019-08-01] MEDS: HEPARIN SOD (PORCINE) 5000 UNITS/ML VIAL SC SCH ×3 (05:33→22:00)
[2019-08-01 06:00] VITALS: BP 136/67
[2019-08-01] MEDS: FAMOTIDINE 20 MG TAB PO SCH (06:26)
[2019-08-01] MEDS: CALCIUM ACETATE 667 MG GELCAP PO SCH ×3 (06:26→17:08)
[2019-08-01] MEDS: LEVOTHYROXINE 125MCG TABLET (0.125MG) PO SCH (06:26)
[2019-08-01] MEDS: rOPINIRole 2MG TAB PO SCH ×2 (06:26→21:11)
[2019-08-01] MEDS: LACTOBACILLUS ACIDOPHILUS CAP (BACID) PO SCH ×2 (06:26→17:08)
[2019-08-01] MEDS: LIDOCAINE 5% (LIDODERM) PATCH TD SCH (06:26)
[2019-08-01] MEDS: ALBUTEROL SULFATE 2.5 MG/0.5 ML INH NEB SOLN NEB SCH ×4 (08:05→21:05)
[2019-08-01] MEDS: MIDODRINE 5 MG TAB PO SCH ×3 (08:23→17:08)
[2019-08-01] MEDS: LEVEMIR (INSULIN DETEMIR) 1 UNITS/0.01ML SC SCH ×2 (08:24→21:11)
[2019-08-01] MEDS: HumaLOG INSULIN (NovoLOG) PER UNIT SC SCH ×4 (08:24→21:10)
[2019-08-01] MEDS: MICONAZOLE 2 % POWDER (DESENEX) TOP SCH ×2 (09:38→21:13)
[2019-08-01] MEDS: SILVER SULFADIAZINE 1% CR 50 GM JAR TOP SCH ×2 (09:39→21:13)
[2019-08-01] MEDS ORDERED: HEPARIN 1,000 UNITS/ML 10ML VIAL (FOR RADIOLOGY& DIALYSIS ONLY) IV ONE (10:15)
[2019-08-01 10:17] LABS: HEMATOCRIT 31.4 % (36.0-47.0); HEMOGLOBIN 9.8 g/dl (12.0-15.5); MEAN CORPUSCULAR HEMOGLOBIN 30.6 pg (27.0-33.0); MEAN CORPUSCULAR HGB CONC 31.2 g/dl (32.0-36.5); MEAN CORPUSCULAR VOLUME 98.1 fl (80.0-96.0); PLATELET COUNT, AUTOMATED 135 10^3/uL (150-450)
[2019-08-01 10:50] LABS: CALCIUM LEVEL 6.9 MG/DL (8.8-10.2); CREATININE FOR GFR 4.71 MG/DL (0.55-1.30); GLOMERULAR FILTRATION RATE 9.8 (>39); POTASSIUM SERUM 5.1 MEQ/L (3.5-5.1)
--- NOTE | 2019-08-01 11:33 | IPNPDOC ---
Text Note Date of Service The patient was seen on 08/01/19. NOTE Subjective: Patient is feeling better today. Patient is tired as she stated that most of the night coloring. Patient was slightly angry yesterday when talking with infectious disease about the possibility of osteomyelitis and having to amputate more of her leg. Patient seems calmer today. She says she is feeling better. She did have a paracentesis yesterday were 7 L was taken off. She did have leakage from the paracentesis site of clear fluid overnight. This does not seem to be bothering her. There is no acute events overnight. Review of systems General: Patient denies fevers HEENT: Patient denies headaches Cardiovascular: Patient denies chest pain Respiratory: Patient denies shortness of breath, cough GI: Patient says her abdomen feels less full after the paracentesis however it is still bothering her little slightly. : Patient denies pain or difficulty with urination Neurological: Patient denies numbness or tingling in extremities Extremities: Patient's left stump wound is feeling better. There is swelling in both legs according to the patient. Objective: Vitals: (see below) General: No acute distress, laying comfortably in bed. HEENT: Normocephalic, atraumatic, moist mucous membranes. Neck: No JVD or lymphadenopathy Cardiac: RRR, No murmurs Pulm: Clear to auscultation b/l. No wheezing, rhonchi Abd: Distended abdomen however there is no tenderness to palpation. Ext: The erythema surrounding the stump wound has decreased. There is still 1+ pitting edema present around the stump wound. There is edema present in the right leg as well. Skin: There is some erythematous areas in the crura bilaterally. The rash that is on the patient's back has improved. Labs (see below) Images: MRI of the left lower extremity without contrast performed on 07/31/2019 showed diffuse edema and cellulitis. Moderate joint effusion at the knee. Mild ill-defined high signal on T2 at the distal end of the remaining tibia and fibula that could indicate osteomyelitis at these locations. Assessment/Plan 1. Stump cellulitis. Patient was seen by infectious disease yesterday who agreed with the antibiotics. The MRI shows possible osteomyelitis. Infectious disease we will look at the wound when the wound VAC is changed tomorrow. This time we will continue with the current treatment. 2. End-stage liver disease. Patient had her weekly paracentesis yesterday. We will continue to monitor. 3. End-stage renal disease. Patient has dialysis scheduled for later today. 4. Wba-nykrksl-gjkmzbwnq diabetes mellitus. Patient is stable on her basal and sliding scale insulin regimens. 5. Rash. The rash in the patient's groin is most likely intertrigo. She is on a barrier cream for this. If this gets worse we will up treatment. The rash on the patient's back which is most likely a candidal dermatitis is improving with miconazole powder. DVT prophy: Heparin 5000 units every 8 hours. Dispo: Pending clinical improvement. I saw and evaluated the patient. I agree with the findings and plan of care as documented in the above note Hannah PFEIFFER, I+O VSHannah, I+O Laboratory Tests 08/01/19 07:32 Red Blood Count 3.20 L, Mean Corpuscular Volume 98.1 H, Mean Corpuscular Hemoglobin 30.6, Mean Corpuscular Hemoglobin Concent 31.2 L, Red Cell Distribution Width 19.7 H, Calcium Level 6.9 L Vital Signs Date Time Temp Pulse Resp B/P (MAP) Pulse Ox O2 Delivery O2 Flow Rate FiO2 08/01/19 06:00 98.4 79 20 136/67 (90) 97 I&O- Last 24 Hours up to 6 AM 08/01/19 06:00 Intake Total 1618 ml Output Total 0 ml Balance 1618 ml TOY MANN DO Aug 01, 2019 11:33 EDWIN MARISCAL MD Aug 04, 2019 10:38
[2019-08-01] MEDS: OYSTER SHELL CALCIUM 500 MG TAB PO SCH (12:00)
--- NOTE | 2019-08-01 13:06 | IPN ---
DATE OF SERVICE: 08/01/2019 SUBJECTIVE: The patient was seen and examined at the bedside today morning during hemodialysis. She is tolerating the hemodialysis procedure well. She is afebrile, hemodynamically stable. She reports that she was seen by infectious disease today, and she was told that she needs IV antibiotics for a few weeks for a left below-knee amputation stump osteomyelitis. OBJECTIVE: Vital signs: Temperature is 98.4 degrees Fahrenheit, blood pressure 136/67, pulse is 79, respiratory rate of 20, saturating 97% on room air. Intake and output: There is no urine output recorded. Weight in the bed scale was 70.6 kg today. PHYSICAL EXAMINATION General: The patient is awake, alert, oriented times three, laying in bed getting hemodialysis done. Head and neck examination: Extraocular muscles intact. Pupils equally round and reactive to light. Mucous membranes are moist. Neck is supple. No jugular venous distention (JVD). Cardiovascular: S1, S2, regular rate, 2+ edema of the right lower extremity. Respiratory: Chest is clear to auscultation bilaterally. Bilateral equal air entry. No rales or rhonchi. Abdomen: Soft, obese, positive bowel sounds. Mild amount of abdominal wall edema was noted. Ascites was better since she was tapped yesterday. Musculoskeletal: She has a wound vacuum-assisted closure (VAC) in the left below-knee amputation site and 2+ edema of the right lower extremity. Central nervous system (CONTROL ROOM TENDER): No focal deficit. Power is 5/5 in bilateral upper extremities. LABORATORY REVIEW: Complete blood count (CBC) showed a WBC of 8, hemoglobin 9.8, platelets are 135. Basic metabolic profile (BMP) showed sodium 135, potassium 5.1, chloride 100, bicarbonate 24, BUN 50, creatinine is 4.7. CURRENT INPATIENT MEDICATIONS: The patient's medications were all reviewed by me. She is currently on intravenous (IV) Zyvox and IV meropenem. No other change in the medications today as compared with yesterday. ASSESSMENT AND PLAN: 1. End-stage renal disease, on hemodialysis. The patient is being dialyzed today according to her Tuesday, Tuesday, Tuesday schedule. Ultrafiltration goal is about 1.5-2 liters as tolerated by her blood pressure. 2. Osteomyelitis of the left below-knee amputation site, tibia and fibula. The patient is getting Zyvox and meropenem. She was seen by infectious disease, as well. Duration of antibiotics is as per infectious disease (ID) recommendations. 3. Recurrent ascites. The patient gets ascitic tap done once a week. She was done yesterday. 7 liters of fluid was removed. 4. Anemia in end-stage renal disease. Continue current dose of Aranesp 200 mcg with dialysis.
[2019-08-01 14:00] VITALS: BP 127/65
[2019-08-01] MEDS: diphenhydrAMINE 25 MG CAP PO PRN ×2 (14:42→22:15)
[2019-08-01] MEDS: MEROPENEM INJ 500 MG in IV 1 EA IV SCH (17:09)
[2019-08-01] MEDS: **NOTE PATIENT COMMENT** MISC XX SCH (21:00)
[2019-08-01] MEDS: GABAPENTIN 100 MG CAP PO SCH (21:11)
[2019-08-01] MEDS: SIMVASTATIN 20 MG TAB PO SCH (21:11)
[2019-08-01] MEDS: traZODone 100 MG TAB PO SCH (21:11)
[2019-08-01] MEDS: oxyCODONE 5MG TAB PO PRN (21:12)
[2019-08-02] MEDS: oxyCODONE 5MG TAB PO PRN ×4 (01:21→22:43)
[2019-08-02] MEDS: diphenhydrAMINE 25 MG CAP PO PRN ×2 (05:00→21:44)
[2019-08-02] MEDS: LINEZOLID 600 MG in IV 1 EA IV SCH (05:35)
[2019-08-02] MEDS: HEPARIN SOD (PORCINE) 5000 UNITS/ML VIAL SC SCH ×3 (05:35→21:12)
[2019-08-02] MEDS: LEVOTHYROXINE 125MCG TABLET (0.125MG) PO SCH (05:35)
[2019-08-02 06:00] VITALS: BP 122/60
[2019-08-02 06:24] LABS: HEMATOCRIT 37.6 % (36.0-47.0); HEMOGLOBIN 11.3 g/dl (12.0-15.5); MEAN CORPUSCULAR HEMOGLOBIN 29.4 pg (27.0-33.0); MEAN CORPUSCULAR HGB CONC 30.1 g/dl (32.0-36.5); MEAN CORPUSCULAR VOLUME 97.7 fl (80.0-96.0); PLATELET COUNT, AUTOMATED 131 10^3/uL (150-450); RED BLOOD COUNT 3.85 10^6/uL (4.00-5.40); WHITE BLOOD COUNT 7.6 10^3/uL (4.0-10.0)
[2019-08-02 06:49] LABS: CALCIUM LEVEL 7.2 MG/DL (8.8-10.2); CREATININE FOR GFR 3.57 MG/DL (0.55-1.30); GLOMERULAR FILTRATION RATE 13.4 (>39); POTASSIUM SERUM 4.5 MEQ/L (3.5-5.1)
[2019-08-02] MEDS: ALBUTEROL SULFATE 2.5 MG/0.5 ML INH NEB SOLN NEB SCH ×4 (07:43→20:00)
[2019-08-02] MEDS: LIDOCAINE 5% (LIDODERM) PATCH TD SCH (09:00)
[2019-08-02] MEDS: FAMOTIDINE 20 MG TAB PO SCH (09:32)
[2019-08-02] MEDS: rOPINIRole 2MG TAB PO SCH ×2 (09:32→21:39)
[2019-08-02] MEDS: LACTOBACILLUS ACIDOPHILUS CAP (BACID) PO SCH ×2 (09:32→17:42)
[2019-08-02] MEDS: CALCIUM ACETATE 667 MG GELCAP PO SCH ×3 (09:32→17:42)
[2019-08-02] MEDS: MIDODRINE 5 MG TAB PO SCH ×3 (09:33→16:20)
[2019-08-02] MEDS: LEVEMIR (INSULIN DETEMIR) 1 UNITS/0.01ML SC SCH ×2 (09:33→21:40)
[2019-08-02] MEDS: HumaLOG INSULIN (NovoLOG) PER UNIT SC SCH ×4 (09:33→21:00)
[2019-08-02] MEDS: MICONAZOLE 2 % POWDER (DESENEX) TOP SCH ×2 (09:37→21:41)
[2019-08-02] MEDS: OYSTER SHELL CALCIUM 500 MG TAB PO SCH (12:39)
--- NOTE | 2019-08-02 13:49 | IPN ---
DATE OF SERVICE: 08/02/2019 SUBJECTIVE: The patient was seen and examined at the bedside today morning. She is afebrile, hemodynamically stable. She was dialyzed yesterday. She tolerated the hemodialysis procedure well. She reports that her erythema in the left below-knee amputation stump is improving. She continues to have a left leg wound Vac and she continues on IV antibiotics. OBJECTIVE: Vital Signs: Temperature is 97.8 degrees Fahrenheit, blood pressure 122/60, pulse is 80, respiratory rate of 18, saturating 98% on room air. Intake and Output: There is no urine output recorded. Ultrafiltration with hemodialysis was 1.5 liters. Weight in the bed scale was 70.6 kg yesterday. PHYSICAL EXAMINATION: General: The patient is awake, alert, oriented times three, laying in bed in no apparent distress. Head and Neck Exam: Extraocular muscles intact. Pupils equally round and reactive to light. Mucous membranes are moist. Neck is supple. There is no jugular venous distention (JVD). Cardiovascular: S1 and S2, regular rate. 2+ edema of the right lower extremity. Respiratory: Chest is clear to auscultation bilaterally. Bilateral equal air entry. No rales or rhonchi. Abdomen: Soft, obese, positive bowel sounds. Mild amount of abdominal wall edema and ascites. Musculoskeletal: There is a wound Vac in the left below-knee amputation site with erythema of the stump and 2+ edema of the right lower extremity. ART PROFESSOR: No focal deficit. Power is 5/5 in bilateral upper extremities. LAB REVIEW: CBC showed WBC of 7.6, hemoglobin 11.3, platelets of 131. BMP showed sodium 135, potassium 4.5, chloride 102, bicarb 24, BUN 40, creatinine is 3.5, calcium 7.2. Microbiology: Left below-knee amputation site stump wound culture from 07/31/2019 was growing Staph aureus and Pseudomonas aeuruginosa. Pseudomonas is pansensitive. CURRENT INPATIENT MEDICATIONS: The patient's medications were all reviewed by me. She continues to be on IV Zyvox and meropenem. No other change in the medications today as compared with yesterday. ASSESSMENT/PLAN: 1. End-stage renal disease on hemodialysis. The patient's regular dialysis days are Tuesday, Tuesday, Tuesday. She was dialyzed yesterday. Next hemodialysis will be tomorrow. 2. Osteomyelitis of the left below-knee amputation site, tibia and fibula. Wound cultures are growing Staph aureus and Pseudomonas aeuroguinosa. She is on Zyvox and meropenem which adequately cover that, however, the patient is pending evaluation by infectious disease for further recommendations. 3. Recurrent ascites. She gets once a week tap. Next tap will be done next week around the Tuesday or Tuesday. 4. Anemia in end-stage renal disease. Hemoglobin level is optimized with current dose of Aranesp. 5. Lower extremity edema. Continue the fluid restriction and rest of the fluid optimization is done with dialysis.
--- NOTE | 2019-08-02 14:27 | IPNPDOC ---
Text Note Date of Service The patient was seen on 08/02/19. NOTE Subjective: Patient was seen sitting on the side of the bed. Patient was feeling better today. Patient's stump was feeling much better than it had in the last couple days. Patient was complaining of having some insomnia. Patient is currently on Benadryl for itching but this is not really helping her sleep. Patient also says that her rash is much improved. Review of systems General: Patient denies fevers HEENT: Patient denies headaches Cardiovascular: Patient denies chest pain Respiratory: Patient denies shortness of breath, cough GI: Patient says her abdomen is being to feel full again. : Patient denies pain or difficulty with urination Neurological: Patient denies numbness or tingling in extremities Extremities: Patient says she has a little bit of swelling in her right leg and the stump is feeling much better. Objective: Vitals: (see below) General: No acute distress, laying comfortably in bed. HEENT: Normocephalic, atraumatic, moist mucous membranes. Neck: No JVD or lymphadenopathy Cardiac: RRR, No murmurs Pulm: Clear to auscultation b/l. No wheezing, rhonchi Abd: NT/ND + BS Ext: Erythema surrounding the stump wound is improving. There is still some swelling around the area however, this is improved. Patient does have 1+ pitting edema in her right leg. Skin: The rash on the patient's back has improved with less areas of erythema. The rash in the patient's groin has also improved as the erythema has retreated. There is a small open area in the skin fold. Labs (see below) Images: No new imaging has been performed. Assessment/Plan 1. Stump cellulitis. Patient will be getting the wound VAC change today. Infectious disease provider Dr. Fontanez will be present for the wound change she can evaluate the wound. MRI did show the possibility of osteomyelitis. Patient has said that she would like a new vascular surgeon if it comes to needing a another amputation. 2. End-stage liver disease. Patient will be getting weekly paracentesis. We will continue to monitor. 3. End-stage renal disease. Patient has dialysis scheduled on Tuesday and Tuesday. 4. Eyn-dtepkiu-dumosbvmg diabetes mellitus. Patient stable on her basal insulin sliding scale insulin regimen. 5. Rash. The patient's rash in the groin is most likely intertrigo she has a barrier cream. Patient can also use miconazole powder in this area. The candidal dermatitis on the patient's back is improved. 6. Insomnia. We will write for ramelteon DVT prophy: Heparin 5000 units every 8 hours Dispo: Pending clinical improvement I saw and evaluated the patient. I agree with the findings and plan of care as documented in the above note VSHannah, I+O VSHannah, I+O Laboratory Tests 08/02/19 06:00 Red Blood Count 3.85 L, Mean Corpuscular Volume 97.7 H, Mean Corpuscular Hemoglobin 29.4, Mean Corpuscular Hemoglobin Concent 30.1 L, Red Cell Distribution Width 20.1 H, Calcium Level 7.2 L Vital Signs Date Time Temp Pulse Resp B/P (MAP) Pulse Ox O2 Delivery O2 Flow Rate FiO2 08/02/19 10:08 18 08/02/19 06:00 97.8 80 122/60 (80) 98 I&O- Last 24 Hours up to 6 AM 08/02/19 06:00 Intake Total 1076 ml Output Total 1500 ml Balance -424 ml TOY MANN DO Aug 02, 2019 14:27 EDWIN MARISCAL MD Aug 04, 2019 10:43
[2019-08-02] MEDS: SILVER SULFADIAZINE 1% CR 50 GM JAR TOP SCH ×2 (16:20→21:41)
[2019-08-02] MEDS ORDERED: LevoFLOXacin 750 MG TABLET PO ONE (17:00)
[2019-08-02] MEDS ORDERED: VANICREAM MOISTURIZING SKIN CREAM 113GM TUBE TOP ONE (18:00)
[2019-08-02] MEDS: **NOTE PATIENT COMMENT** MISC XX SCH (21:00)
[2019-08-02] MEDS: RAMELTEON 8 MG TAB (ROZEREM) PO SCH (21:39)
[2019-08-02] MEDS: GABAPENTIN 100 MG CAP PO SCH (21:40)
[2019-08-02] MEDS: LINEZOLID 600MG TABLET (ZYVOX) PO SCH (21:40)
[2019-08-02] MEDS: SIMVASTATIN 20 MG TAB PO SCH (21:40)
[2019-08-02] MEDS: traZODone 100 MG TAB PO SCH (21:40)
[2019-08-02] MEDS: ONDANSETRON 4 MG ORAL DISINTEGRATING TAB (Q0162 PER 1MG) PO PRN (22:41)
[2019-08-03 05:56] VITALS: BP 106/60
[2019-08-03] MEDS: HEPARIN SOD (PORCINE) 5000 UNITS/ML VIAL SC SCH ×3 (06:00→21:33)
[2019-08-03] MEDS: LEVOTHYROXINE 125MCG TABLET (0.125MG) PO SCH (06:19)
[2019-08-03] MEDS: LACTOBACILLUS ACIDOPHILUS CAP (BACID) PO SCH ×2 (06:19→18:00)
[2019-08-03] MEDS: MIDODRINE 5 MG TAB PO SCH ×3 (06:20→14:48)
[2019-08-03] MEDS: CALCIUM ACETATE 667 MG GELCAP PO SCH ×3 (06:20→18:00)
[2019-08-03] MEDS: FAMOTIDINE 20 MG TAB PO SCH (06:21)
[2019-08-03] MEDS: LIDOCAINE 5% (LIDODERM) PATCH TD SCH (06:22)
[2019-08-03] MEDS: LINEZOLID 600MG TABLET (ZYVOX) PO SCH ×2 (06:24→21:31)
[2019-08-03] MEDS: MICONAZOLE 2 % POWDER (DESENEX) TOP SCH ×2 (06:32→21:32)
[2019-08-03] MEDS: SILVER SULFADIAZINE 1% CR 50 GM JAR TOP SCH ×2 (06:33→21:32)
[2019-08-03] MEDS: rOPINIRole 2MG TAB PO SCH ×2 (06:37→21:30)
[2019-08-03 06:41] LABS: HEMATOCRIT 37.5 % (36.0-47.0); HEMOGLOBIN 10.7 g/dl (12.0-15.5); MEAN CORPUSCULAR HEMOGLOBIN 29.4 pg (27.0-33.0); MEAN CORPUSCULAR HGB CONC 28.5 g/dl (32.0-36.5); PLATELET COUNT, AUTOMATED 129 10^3/uL (150-450); RED BLOOD COUNT 3.64 10^6/uL (4.00-5.40); WHITE BLOOD COUNT 8.6 10^3/uL (4.0-10.0)
[2019-08-03] MEDS: HumaLOG INSULIN (NovoLOG) PER UNIT SC SCH ×4 (07:30→21:00)
[2019-08-03] MEDS: LEVEMIR (INSULIN DETEMIR) 1 UNITS/0.01ML SC SCH ×2 (07:40→21:31)
[2019-08-03] MEDS: diphenhydrAMINE 25 MG CAP PO PRN ×3 (07:51→22:25)
[2019-08-03] MEDS: ALBUTEROL SULFATE 2.5 MG/0.5 ML INH NEB SOLN NEB SCH (08:00)
[2019-08-03] MEDS ORDERED: ALBUTEROL SULFATE 2.5 MG/0.5 ML INH NEB SOLN NEB PRN (09:45)
[2019-08-03] MEDS: OYSTER SHELL CALCIUM 500 MG TAB PO SCH (11:52)
[2019-08-03] MEDS ORDERED: HEPARIN 1,000 UNITS/ML 10ML VIAL (FOR RADIOLOGY& DIALYSIS ONLY) IV ONE (13:00)
[2019-08-03] MEDS: oxyCODONE 5MG TAB PO PRN ×2 (13:55→22:26)
[2019-08-03] MEDS: SANTYL OINT 30GM TOP SCH (14:48)
--- NOTE | 2019-08-03 15:16 | IPN ---
DATE: 08/03/2019 SUBJECTIVE: The patient was seen and examined at the bedside this morning. She is afebrile, hemodynamically stable. She is going to have dialysis today. She reports that her left below-knee amputation stump was seen by infectious disease and she was told that is healing well. She continues to be on IV antibiotics. OBJECTIVE: VITAL SIGNS: Temperature is 97.6 degrees Fahrenheit, blood pressure 106/60, pulse is 77, respiratory of 20, saturating 98% on room air. Intake and output: There is no urine output recorded. Weight in the bed scale is not available. PHYSICAL EXAMINATION: GENERAL: The patient is awake, alert, oriented, times three, laying in bed in no apparent distress. HEAD AND NECK EXAM: Extraocular muscles intact. Pupils equally round and reactive to light. Mucous membranes are moist. NECK: Neck is supple. There is no jugular venous distention (JVD). CARDIOVASCULAR: S1, S2, regular rate 2+ edema of the right lower extremity. RESPIRATORY: Chest is clear to auscultation bilaterally. Bilateral equal air entry. No rales or rhonchi. ABDOMEN: Soft, obese, positive bowel sounds. Moderate amount of ascites. MUSCULOSKELETAL: Wound VAC in the left below-knee amputation stump. 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 Power is 5/5 in bilateral upper extremities. LAB REVIEW: CBC showed WBC 8.6, hemoglobin 10.7, platelets of 129. BMP was available from yesterday and it showed potassium of 4.5. CURRENT INPATIENT MEDICATIONS: The patient's medications were all reviewed by me. There is no change in the medications. Her IV Zyvox and IV meropenem has been stopped. She has been started on Levaquin 500 mg by mouth every 48 hours and Zyvox 600 mg by mouth twice a day. No other change in the medications today as compared with yesterday. ASSESSMENT/PLAN: 1. End-stage renal disease on hemodialysis. Continue current dialysis schedule Tuesday, Tuesday, Tuesday. She will be dialyzed in the afternoon. Ultrafiltration goal will be around 1.5 to 2 liters as tolerated by her blood pressure. 2. 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 She is growing Pseudomonas and Staphylococcus aureus in the culture. She has she has been switched to oral Levaquin and Zyvox. She continues to have wound VAC. 3. Anemia in end-stage renal disease: Continue current dose of Aranesp. 4. Chronic hypotension: Continue current dose of midodrine 5 mg by mouth three times a day. 5. Chronic kidney disease mineral bone disease: Continue current dose of PhosLo three times a day with meals.
--- NOTE | 2019-08-03 17:10 | IPNPDOC ---
Text Note Date of Service The patient was seen on 08/03/19. NOTE Subjective: Patient was seen and examined at bedside. Patient says she is feeling better today. She says she had a good night's sleep with the Rozerem. Patient says her stump is feeling much better and the redness is improved. She still does complain of some itching with the Benadryl is helping with that. No acute events overnight. Review of systems General: Patient denies fevers HEENT: Patient denies headaches Cardiovascular: Patient denies chest pain Respiratory: Patient denies shortness of breath, cough GI: Patient denies abdominal pain, nausea, vomiting, diarrhea : Patient denies pain or difficulty with urination Neurological: Patient denies numbness or tingling in extremities Extremities: Patient says that her stump is feeling better and the swelling in her right leg is also improved. Objective: Vitals: (see below) General: No acute distress, laying comfortably in bed. HEENT: Normocephalic, atraumatic, moist mucous membranes. Neck: No JVD or lymphadenopathy Cardiac: RRR, No murmurs Pulm: Clear to auscultation b/l. No wheezing, rhonchi Abd: Patient's abdomen is distended and dull to percussion. Patient's abdomen is nontender. Ext: Erythema surrounding the stump wound is improving. There is still some swelling in this area however this continues to improve. Patient is a 1+ pitting edema in her right leg area Skin: Rashes the patient's back is almost completely resolved. Open area in the groin also appears better. Labs (see below) Images: No new images have been performed Assessment/Plan 1. Stump cellulitis. Dr. Fontanez of infectious disease evaluated the wound yesterday and switch the patient to by mouth Zyvox and Levaquin. She will continue the Zyvox for 2 weeks and then she can be switched to doxycycline as Zyvox can cause pancytopenia. 2. End stage liver disease. Patient has weekly paracentesis. We will continue to monitor. 3. End-stage renal disease. Patient got dialysis today. 4. Hfv-ggpbuqk-hmotptama diabetes mellitus. Patient is stable on her basal insulin and sliding scale regimen. 5. Rash. Patient's rash and both her groin and on her back are improving. Continue with current treatment. 6. Insomnia. Rozerem worked well for the patient will continue his medication. DVT prophy: Heparin 5000 units every 8 hours Dispo: Pending clinical improvement I saw and evaluated the patient. I agree with the findings and plan of care as documented in the above note VS,Edwinbone, I+O VS, Edwinbone, I+O Laboratory Tests 08/03/19 06:06 Red Blood Count 3.64 L, Mean Corpuscular Volume 103.0 H, Mean Corpuscular Hemoglobin 29.4, Mean Corpuscular Hemoglobin Concent 28.5 L, Red Cell Distribution Width 20.6 H Vital Signs Date Time Temp Pulse Resp B/P (MAP) Pulse Ox O2 Delivery O2 Flow Rate FiO2 08/03/19 14:25 18 08/03/19 05:56 97.6 77 106/60 (75) 98 I&O- Last 24 Hours up to 6 AM 08/03/19 06:00 Intake Total 1100 ml Output Total 0 ml Balance 1100 ml TOY MANN DO Aug 03, 2019 17:10 EDWIN MARISCAL MD Aug 04, 2019 10:48
--- NOTE | 2019-08-03 17:39 | IPN ---
DATE: 08/03/2019 Dalila seems to be doing well. She has no complaints except for increased abdominal girth and lower extremity edema. She has no pain. No fever or chills. No nausea, vomiting or diarrhea. On physical exam, temperature is 97.6, pulse 77, respirations 20, blood pressure 106/60, oxygen saturation (O2 sat) 98% on room air. Heart: Normal S1, S2. No murmurs. Lungs: Diminished breath sounds at the bases but clear. Abdomen: Obese with ascites and fluid wave. Extremities: +1 pitting edema bilaterally. Right lower extremity has an ulcer on the lateral calf measuring about 6 x 3 cm with a necrotic yellowish base, mildly tender to touch. Right big toe has two small ulcers measuring about 1 cm each with no surrounding cellulitis. Left stump - wound VAC in place plus 1 pitting edema. Medial thigh tenderness as well with erythema. LABORATORY DATA: White count 8.6, hemoglobin 10.7, hematocrit 37.5, platelets 120. Sodium 135, potassium 4.5, chloride 102, bicarbonate 24, BUN 40, creatinine 3.57, glucose 286, calcium 7.2. Wound culture positive for Pseudomonas aeruginosa and methicillin-resistant Staphylococcus aureus (MRSA). IMPRESSION: 1. Chronic osteomyelitis of the left stump involving the tibia and fibula with culture positive for MRSA and Pseudomonas. The patient is currently on oral Levaquin and linezolid. 2. End-stage renal disease, on hemodialysis. 3. Liver cirrhosis requiring paracentesis every week with increased lower extremity edema. 4. Pressure ulcers on the right calf. PLAN: Wound consult was obtained from Katie who recommended doing Santyl dressing changes on the right calf, along with tubi report writer to decrease edema of the right leg. Continue with by oral Levaquin and oral linezolid for chronic osteomyelitis. I would use oral linezolid for the first 2 weeks and then may switch to doxycycline as there is risk of pancytopenia and peripheral neuropathy after 2 weeks. Continue with oral Levaquin and wound VAC for left stump. Consult Dr. Osorio for outpatient wound to followup. [facility]
[2019-08-03 17:46] LABS: CALCIUM LEVEL 7.4 MG/DL (8.8-10.2); CREATININE FOR GFR 4.91 MG/DL (0.55-1.30); GLOMERULAR FILTRATION RATE 9.3 (>39)
[2019-08-03] MEDS: **NOTE PATIENT COMMENT** MISC XX SCH (21:00)
[2019-08-03] MEDS: RAMELTEON 8 MG TAB (ROZEREM) PO SCH (21:30)
[2019-08-03] MEDS: SIMVASTATIN 20 MG TAB PO SCH (21:31)
[2019-08-03] MEDS: GABAPENTIN 100 MG CAP PO SCH (21:31)
[2019-08-03] MEDS: traZODone 100 MG TAB PO SCH (21:31)
[2019-08-04] MEDS: HEPARIN SOD (PORCINE) 5000 UNITS/ML VIAL SC SCH ×4 (05:14→21:50)
[2019-08-04 05:47] LABS: HEMATOCRIT 32.9 % (36.0-47.0); HEMOGLOBIN 9.9 g/dl (12.0-15.5); MEAN CORPUSCULAR HEMOGLOBIN 29.6 pg (27.0-33.0); MEAN CORPUSCULAR HGB CONC 30.1 g/dl (32.0-36.5); MEAN CORPUSCULAR VOLUME 98.2 fl (80.0-96.0); PLATELET COUNT, AUTOMATED 116 10^3/uL (150-450); RED BLOOD COUNT 3.35 10^6/uL (4.00-5.40); WHITE BLOOD COUNT 7.4 10^3/uL (4.0-10.0)
[2019-08-04 06:00] VITALS: BP 114/59
[2019-08-04] MEDS: LEVOTHYROXINE 125MCG TABLET (0.125MG) PO SCH (06:17)
[2019-08-04 06:29] LABS: CALCIUM LEVEL 7.4 MG/DL (8.8-10.2); CREATININE FOR GFR 3.37 MG/DL (0.55-1.30); GLOMERULAR FILTRATION RATE 14.4 (>39); POTASSIUM SERUM 4.4 MEQ/L (3.5-5.1)
[2019-08-04 07:35] VITALS: BP 103/56
[2019-08-04] MEDS: CALCIUM ACETATE 667 MG GELCAP PO SCH ×3 (07:40→17:16)
[2019-08-04] MEDS: LACTOBACILLUS ACIDOPHILUS CAP (BACID) PO SCH ×2 (07:41→17:16)
[2019-08-04] MEDS: HumaLOG INSULIN (NovoLOG) PER UNIT SC SCH ×4 (07:41→19:55)
[2019-08-04] MEDS: MIDODRINE 5 MG TAB PO SCH ×3 (07:41→16:13)
[2019-08-04] MEDS: SANTYL OINT 30GM TOP SCH (08:32)
[2019-08-04] MEDS: SILVER SULFADIAZINE 1% CR 50 GM JAR TOP SCH ×2 (08:32→19:58)
[2019-08-04] MEDS: MICONAZOLE 2 % POWDER (DESENEX) TOP SCH ×2 (08:33→19:57)
[2019-08-04] MEDS: LIDOCAINE 5% (LIDODERM) PATCH TD SCH (08:33)
[2019-08-04] MEDS: FAMOTIDINE 20 MG TAB PO SCH (08:34)
[2019-08-04] MEDS: rOPINIRole 2MG TAB PO SCH ×2 (08:34→19:55)
[2019-08-04] MEDS: LEVEMIR (INSULIN DETEMIR) 1 UNITS/0.01ML SC SCH ×2 (08:34→19:56)
[2019-08-04] MEDS: LINEZOLID 600MG TABLET (ZYVOX) PO SCH ×2 (08:34→19:57)
--- NOTE | 2019-08-04 10:29 | IPNPDOC ---
Text Note Date of Service The patient was seen on 08/04/19. NOTE Subjective: Patient was seen and examined at bedside today. Patient is feeling much better today. Patient says her stump is feeling much better and she is very happy with the color of it. Patient also says the rash is almost all the way gone and the itching has improved. Patient had a great night's sleep last night. There were no acute events overnight. Review of systems General: Patient denies fevers HEENT: Patient denies headaches Cardiovascular: Patient denies chest pain Respiratory: Patient denies shortness of breath, cough GI: Patient says her abdomen is getting more full. : Patient denies pain or difficulty with urination Neurological: Patient denies numbness or tingling in extremities Extremities: Patient says the swelling and erythema in the left leg is improving . She is concerned about a wound on the outside of the right ankle. Objective: Vitals: (see below) General: No acute distress, laying comfortably in bed. HEENT: Normocephalic, atraumatic, moist mucous membranes. Neck: No JVD or lymphadenopathy Cardiac: RRR, No murmurs Pulm: Clear to auscultation b/l. No wheezing, rhonchi Abd: NT/ND + BS Ext: The erythema around the stump is improving. There is a small wound that shows granulation tissue on the right lateral ankle. There is no signs of erythema. Labs (see below) Images: No new imaging has been performed Assessment/Plan 1. Cellulitis. As of now we're going to continue on Zyvox and Levaquin as prescribed by Dr. Fontanez of infectious disease. Patient's platelet count has been decreasing since she has been started on Zyvox. This is a known side effect of Zyvox. Dr. Fontanez had mentioned in her consultation progress note that after 2 weeks the patient should be switched to doxycycline. As of now we will continue with Zyvox however, we will continue to monitor the patient's platelet count with daily CBCs in order to monitor. If platelet count continues to drop we'll have to switch the patient to doxycycline. We appreciate Dr. Fontanez's help in treating this patient. 2. End-stage liver disease. Continue with weekly paracentesis. 3. End-stage renal disease. Continue with Tuesday, Tuesday, Tuesday dialysis. We appreciate nephrology's help in treating this patient. 4. Pto-skexxvk-vqegdocgj diabetes mellitus. Patient is currently stable on her basal insulin and sliding scale insulin regimens. 5. Rash. Patient's rash in both her groin and back are improving. We will continue with current treatment. 6. Insomnia. Rozerem has worked well for this patient and we'll continue his medication. DVT prophy: Heparin 5000 units every 8 hours Dispo: Pending clearance to return home with pivot disc. Patient has been made ALC status. I saw and evaluated the patient. I agree with the findings and plan of care as documented in the above note VS,Fishbone, I+O VS, Fishbone, I+O Laboratory Tests 08/03/19 16:58 Calcium Level 7.4 L 08/04/19 05:32 Calcium Level 7.4 L, Red Blood Count 3.35 L, Mean Corpuscular Volume 98.2 H, Mean Corpuscular Hemoglobin 29.6, Mean Corpuscular Hemoglobin Concent 30.1 L, Red Cell Distribution Width 20.1 H Vital Signs Date Time Temp Pulse Resp B/P (MAP) Pulse Ox O2 Delivery O2 Flow Rate FiO2 08/04/19 07:35 103/56 (72) 08/04/19 06:00 96.9 76 18 98 I&O- Last 24 Hours up to 6 AM 08/04/19 06:00 Intake Total 1456 ml Output Total 1500 ml Balance -44 ml TOY MANN DO Aug 04, 2019 10:29 EDWIN MARISCAL MD Aug 06, 2019 07:00
[2019-08-04] MEDS: oxyCODONE 5MG TAB PO PRN ×2 (15:03→19:00)
[2019-08-04] MEDS: OYSTER SHELL CALCIUM 500 MG TAB PO SCH (15:03)
[2019-08-04 16:05] VITALS: BP 137/76
[2019-08-04] MEDS: LevoFLOXacin 500 MG TABLET PO SCH (17:16)
[2019-08-04] MEDS: ONDANSETRON 4 MG ORAL DISINTEGRATING TAB (Q0162 PER 1MG) PO PRN (19:08)
[2019-08-04] MEDS: **NOTE PATIENT COMMENT** MISC XX SCH (19:49)
[2019-08-04] MEDS: GABAPENTIN 100 MG CAP PO SCH (19:56)
[2019-08-04] MEDS: RAMELTEON 8 MG TAB (ROZEREM) PO SCH (19:56)
[2019-08-04] MEDS: SIMVASTATIN 20 MG TAB PO SCH (19:57)
[2019-08-04] MEDS: traZODone 100 MG TAB PO SCH (19:57)
[2019-08-04] MEDS: diphenhydrAMINE 25 MG CAP PO PRN (21:50)
[2019-08-05] MEDS: diphenhydrAMINE 25 MG CAP PO PRN ×2 (04:59→20:32)
[2019-08-05] MEDS: LEVOTHYROXINE 125MCG TABLET (0.125MG) PO SCH (05:29)
[2019-08-05 06:00] VITALS: BP 136/66
[2019-08-05] MEDS: HEPARIN SOD (PORCINE) 5000 UNITS/ML VIAL SC SCH ×3 (06:00→20:22)
[2019-08-05 06:19] LABS: HEMOGLOBIN 11.2 g/dl (12.0-15.5); MEAN CORPUSCULAR HEMOGLOBIN 29.5 pg (27.0-33.0); MEAN CORPUSCULAR HGB CONC 30.3 g/dl (32.0-36.5); MEAN CORPUSCULAR VOLUME 97.4 fl (80.0-96.0); PLATELET COUNT, AUTOMATED 129 10^3/uL (150-450); WHITE BLOOD COUNT 8.4 10^3/uL (4.0-10.0)
[2019-08-05 06:47] LABS: CALCIUM LEVEL 7.6 MG/DL (8.8-10.2); CREATININE FOR GFR 4.37 MG/DL (0.55-1.30); GLOMERULAR FILTRATION RATE 10.6 (>39); POTASSIUM SERUM 4.7 MEQ/L (3.5-5.1)
[2019-08-05 07:20] VITALS: BP 128/65
[2019-08-05] MEDS: CALCIUM ACETATE 667 MG GELCAP PO SCH ×3 (07:25→17:20)
[2019-08-05] MEDS: LACTOBACILLUS ACIDOPHILUS CAP (BACID) PO SCH ×2 (07:25→17:20)
[2019-08-05] MEDS: MIDODRINE 5 MG TAB PO SCH ×3 (07:25→15:49)
[2019-08-05] MEDS: HumaLOG INSULIN (NovoLOG) PER UNIT SC SCH ×4 (07:26→21:00)
[2019-08-05 08:47] VITALS: BP 103/51
[2019-08-05] MEDS: LIDOCAINE 5% (LIDODERM) PATCH TD SCH (08:48)
[2019-08-05] MEDS: LINEZOLID 600MG TABLET (ZYVOX) PO SCH ×2 (08:57→20:22)
[2019-08-05] MEDS: SILVER SULFADIAZINE 1% CR 50 GM JAR TOP SCH ×2 (08:57→20:22)
[2019-08-05] MEDS: rOPINIRole 2MG TAB PO SCH ×2 (08:57→20:20)
[2019-08-05] MEDS: FAMOTIDINE 20 MG TAB PO SCH (08:57)
[2019-08-05] MEDS: LEVEMIR (INSULIN DETEMIR) 1 UNITS/0.01ML SC SCH ×2 (08:57→20:21)
[2019-08-05] MEDS: SANTYL OINT 30GM TOP SCH (08:58)
[2019-08-05] MEDS: MICONAZOLE 2 % POWDER (DESENEX) TOP SCH ×2 (09:00→20:22)
[2019-08-05] MEDS: oxyCODONE 5MG TAB PO PRN ×3 (10:26→20:33)
[2019-08-05 12:10] VITALS: BP 130/59
[2019-08-05] MEDS: OYSTER SHELL CALCIUM 500 MG TAB PO SCH (12:14)
[2019-08-05 15:45] VITALS: BP 129/61
[2019-08-05 20:00] VITALS: BP 134/75
[2019-08-05] MEDS: traZODone 100 MG TAB PO SCH (20:20)
[2019-08-05] MEDS: GABAPENTIN 100 MG CAP PO SCH (20:21)
[2019-08-05] MEDS: RAMELTEON 8 MG TAB (ROZEREM) PO SCH (20:21)
[2019-08-05] MEDS: SIMVASTATIN 20 MG TAB PO SCH (20:21)
[2019-08-05] MEDS: **NOTE PATIENT COMMENT** MISC XX SCH (20:23)
[2019-08-06] MEDS: diphenhydrAMINE 25 MG CAP PO PRN ×2 (02:22→14:45)
[2019-08-06] MEDS: LACTOBACILLUS ACIDOPHILUS CAP (BACID) PO SCH ×2 (05:33→17:17)
[2019-08-06] MEDS: CALCIUM ACETATE 667 MG GELCAP PO SCH ×3 (05:34→17:17)
[2019-08-06] MEDS: LEVOTHYROXINE 125MCG TABLET (0.125MG) PO SCH (05:34)
[2019-08-06] MEDS: FAMOTIDINE 20 MG TAB PO SCH (05:34)
[2019-08-06] MEDS: MIDODRINE 5 MG TAB PO SCH ×3 (05:34→16:00)
[2019-08-06] MEDS: LINEZOLID 600MG TABLET (ZYVOX) PO SCH ×2 (05:34→21:30)
[2019-08-06] MEDS: LIDOCAINE 5% (LIDODERM) PATCH TD SCH (05:34)
[2019-08-06] MEDS: SILVER SULFADIAZINE 1% CR 50 GM JAR TOP SCH ×3 (05:35→21:33)
[2019-08-06] MEDS: SANTYL OINT 30GM TOP SCH (05:35)
[2019-08-06] MEDS: MICONAZOLE 2 % POWDER (DESENEX) TOP SCH ×2 (05:36→21:33)
[2019-08-06 06:00] VITALS: BP 129/72
[2019-08-06] MEDS: rOPINIRole 2MG TAB PO SCH ×2 (06:17→21:30)
[2019-08-06] MEDS: HEPARIN SOD (PORCINE) 5000 UNITS/ML VIAL SC SCH ×3 (06:18→21:29)
[2019-08-06 07:02] LABS: HEMATOCRIT 36.2 % (36.0-47.0); HEMOGLOBIN 10.8 g/dl (12.0-15.5); MEAN CORPUSCULAR HEMOGLOBIN 29.3 pg (27.0-33.0); MEAN CORPUSCULAR HGB CONC 29.8 g/dl (32.0-36.5); MEAN CORPUSCULAR VOLUME 98.4 fl (80.0-96.0); PLATELET COUNT, AUTOMATED 109 10^3/uL (150-450); RED BLOOD COUNT 3.68 10^6/uL (4.00-5.40); WHITE BLOOD COUNT 7.8 10^3/uL (4.0-10.0)
[2019-08-06 07:19] LABS: CALCIUM LEVEL 7.7 MG/DL (8.8-10.2); CREATININE FOR GFR 5.07 MG/DL (0.55-1.30); POTASSIUM SERUM 5.3 MEQ/L (3.5-5.1)
[2019-08-06] MEDS: HumaLOG INSULIN (NovoLOG) PER UNIT SC SCH ×4 (07:30→21:00)
[2019-08-06] MEDS: LEVEMIR (INSULIN DETEMIR) 1 UNITS/0.01ML SC SCH ×2 (09:01→21:28)
[2019-08-06] MEDS ORDERED: HEPARIN 1,000 UNITS/ML 10ML VIAL (FOR RADIOLOGY& DIALYSIS ONLY) IV ONE (11:00)
--- NOTE | 2019-08-06 11:24 | IPN ---
DATE OF VISIT: 08/06/2019 Mrs. Hernandez seen this morning during hemodialysis. She has complained of increasing abdominal distension due to ascites and wants to have a paracentesis done as soon as possible. She denies any nausea, vomiting, fever or chills. We ultrafiltrated her on Tuesday and removed 2 liters of fluid without any difficulty. We are trying to remove another 2 liters today because of peripheral edema. On physical exam, temperature 97.7 degrees Fahrenheit, heart rate 82 per minute, respiratory rate 18 per minute. Blood pressure 129/72 mmHg and oxygen saturation 95%. Head is atraumatic. Neck is supple and jugular venous distention (JVD) is not significantly elevated. Heart sounds are regular and lungs clear to auscultation. Abdomen is markedly distended with large amount of ascites. Bowel sounds are present. Extremities have no cyanosis or clubbing. Lower extremity edema is at least 3+. She has a wound vacuum-assisted closure (VAC) dressing to her left leg stump and dressing to her right foot. Today's labs show WBC count 7.8, hemoglobin 10.8 and hematocrit 36.2. Platelets 109. Sodium 135, potassium 5.3, CO2 19, BUN 64 and creatinine 5.07. PROBLEMS: 1. End-stage renal disease. Patient is being dialyzed this morning and she is tolerating dialysis reasonably well. Her blood pressure is about 119/50 mmHg right now during dialysis. We are trying to remove 2 liters of fluid as tolerated. 2. Hyperkalemia. This is mild and likely to be corrected with dialysis. No other intervention would be needed. 3. Cirrhosis of liver with recurrent ascites. Patient has increased ascites again and will need paracentesis this week. I am going to go ahead and ordered it for tomorrow as she will be dialyzed again on Tuesday. 3. Anemia. Anemia is stable at this point and we will continue to monitor. 4. Peripheral edema and hypervolemia. She does have recurrent hypotension during dialysis due to which aggressive fluid removal is not possible. We are trying to remove 2 liters of fluid as tolerated today.
[2019-08-06 14:00] VITALS: BP 95/52
[2019-08-06] MEDS: OYSTER SHELL CALCIUM 500 MG TAB PO SCH (14:43)
[2019-08-06 16:30] VITALS: BP 147/66
[2019-08-06] MEDS: LevoFLOXacin 500 MG TABLET PO SCH (17:17)
[2019-08-06] MEDS: **NOTE PATIENT COMMENT** MISC XX SCH (21:00)
[2019-08-06] MEDS: oxyCODONE 5MG TAB PO PRN (21:27)
[2019-08-06] MEDS: RAMELTEON 8 MG TAB (ROZEREM) PO SCH (21:31)
[2019-08-06] MEDS: SIMVASTATIN 20 MG TAB PO SCH (21:32)
[2019-08-06] MEDS: traZODone 100 MG TAB PO SCH (21:32)
[2019-08-06] MEDS: GABAPENTIN 100 MG CAP PO SCH (21:32)
[2019-08-07] MEDS: HEPARIN SOD (PORCINE) 5000 UNITS/ML VIAL SC SCH ×3 (03:27→21:46)
[2019-08-07] MEDS: LEVOTHYROXINE 125MCG TABLET (0.125MG) PO SCH (05:45)
[2019-08-07 06:00] VITALS: BP 121/74
[2019-08-07 06:31] LABS: HEMATOCRIT 34.4 % (36.0-47.0); HEMOGLOBIN 10.6 g/dl (12.0-15.5); MEAN CORPUSCULAR HEMOGLOBIN 30.3 pg (27.0-33.0); MEAN CORPUSCULAR HGB CONC 30.8 g/dl (32.0-36.5); MEAN CORPUSCULAR VOLUME 98.3 fl (80.0-96.0); WHITE BLOOD COUNT 6.4 10^3/uL (4.0-10.0)
[2019-08-07 06:51] LABS: C REACTIVE PROTEIN QUANTITATIV 6.06 MG/DL (0.00-0.30); CALCIUM LEVEL 7.7 MG/DL (8.8-10.2); CREATININE FOR GFR 4.33 MG/DL (0.55-1.30); GLOMERULAR FILTRATION RATE 10.8 (>39)
[2019-08-07 06:55] LABS: ERYTHROCYTE SEDIMENTATION RATE 52 mm/hr (0-30)
[2019-08-07 06:58] LABS: PLATELET COUNT, AUTOMATED 95 10^3/uL (150-450)
[2019-08-07 08:00] VITALS: BP 110/64
[2019-08-07] MEDS: HumaLOG INSULIN (NovoLOG) PER UNIT SC SCH ×4 (08:50→21:00)
[2019-08-07] MEDS: LEVEMIR (INSULIN DETEMIR) 1 UNITS/0.01ML SC SCH ×2 (08:50→21:45)
[2019-08-07] MEDS: LIDOCAINE 5% (LIDODERM) PATCH TD SCH ×2 (08:51→09:00)
[2019-08-07] MEDS: rOPINIRole 2MG TAB PO SCH ×2 (08:51→21:46)
[2019-08-07] MEDS: LACTOBACILLUS ACIDOPHILUS CAP (BACID) PO SCH ×2 (08:51→17:42)
[2019-08-07] MEDS: CALCIUM ACETATE 667 MG GELCAP PO SCH ×3 (08:52→17:42)
[2019-08-07] MEDS: MIDODRINE 5 MG TAB PO SCH ×3 (08:52→16:53)
[2019-08-07] MEDS: FAMOTIDINE 20 MG TAB PO SCH (08:52)
[2019-08-07] MEDS: SILVER SULFADIAZINE 1% CR 50 GM JAR TOP SCH ×2 (09:00→21:00)
[2019-08-07] MEDS: MICONAZOLE 2 % POWDER (DESENEX) TOP SCH ×2 (09:00→21:45)
[2019-08-07] MEDS ORDERED: VANCOMYCIN HCL 1,000 MG, VIAL MATE ADAPTER 1 EACH in D5W 250 ML IV SCH (11:00)
[2019-08-07] MEDS ORDERED: VANCOMYCIN HCL 1,000 MG, VIAL MATE ADAPTER 1 EACH in D5W 250 ML IV ONE (13:00)
[2019-08-07] MEDS: ONDANSETRON 4 MG ORAL DISINTEGRATING TAB (Q0162 PER 1MG) PO PRN (14:56)
--- NOTE | 2019-08-07 15:04 | PHACANCOPD ---
PHARMACY VANCOMYCIN DOSING Pt Demographics Demographics Patient Age:68 , Weight:70.600 , Gender: female Adjusted Body Weight Date: 08/07/19, Adjusted Body Weight: Kg Events Past 24 Hours Events Past 24 Hours: YES: Dialysis; NO: Diuretic Therapy, Change in CrCl, Fever, Elevation in WBC, Pending Diagnostics, Pending Procedures, Other Vancomycin Vancomycin indication: MRSA wound infection Vancomycin Target Ranges: 10-20 mcg/ml Vancomycin Load Y/N: Yes Load Dose Date Time Vancomycin Load Dose: 1g Date: 08/07 Time: 1300 Vancomycin Dose Date: 08/07/19. Current Vancomycin Dose: [750 after HD] Intermittent Dosing?: No Labs Labs Item Value Date Time White Blood Count 6.4 10^3/uL 08/07/19 0617 Erythrocyte Sedimentation Rate 52 mm/hr H 08/07/19 0617 Creatinine 4.37 MG/DL H 08/05/19 0559 Creatinine 5.07 MG/DL H 08/06/19 0647 Creatinine 4.33 MG/DL H 08/07/19 0617 C-Reactive Protein, Quantitative 6.06 MG/DL H 08/07/19 0617 Micro Microbiology 07/30/19 Blood Culture - Final, Complete NO GROWTH AFTER 5 DAYS 07/30/19 Blood Culture - Final, Complete NO GROWTH AFTER 5 DAYS 07/31/19 Gram Stain - Final, Complete 07/31/19 Wound Culture - Final, Complete Pseudomonas Aeruginosa Staph.aureus Methicillin Resis Creatinine Clearance Date:08/07/19. Creatinine Clearance: . Assessment and Plan Maintaining Current Dose?: Yes Reason for dose change: No Dose Change Pharmacist Note Pharmacist Note Date: 08/07/19. Pharmacist note: Patient's infected stump grew pseudomonas and MRSA. She has been on Levaquin and zyvox for treatment. Her zyvox was switched to vancomycin today. Based on previous consults she was loaded with 1 gram of IV Vancomycin and will be continued on 750mg after each hemodialysis session. Her WBC is within normal limits, her CRP is 6, and she remains afebrile. We will schedule a random in the morning to ensure she is therapeutic, and will make any adjustments necessary. SANDY KHAN, PHARMACY Aug 07, 2019 15:04
[2019-08-07] MEDS: SANTYL OINT 30GM TOP SCH (16:07)
[2019-08-07] MEDS: OYSTER SHELL CALCIUM 500 MG TAB PO SCH (16:52)
--- NOTE | 2019-08-07 17:41 | IPN ---
DATE: 08/07/2019 SUBJECTIVE: Dalila was seen and examined this afternoon. She states she is doing well. She just came back from a paracentesis and she is a little groggy. She is laying comfortably on her bed. She denies having any pain, fevers, chills, nausea, vomiting, or diarrhea. She is supposed to have her wound vacuum-assisted closure (VAC) changed today and she requests if we can change her antibiotics from vancomycin to an alternative drug that can be taken at home without IV. PHYSICAL EXAMINATION: VITAL SIGNS: Temperature 98.5, pulse 84, respiratory rate 16, blood pressure 110/64 (79), pulse oximetry 96% on room air. HEART: Normal S1, S2 sounds with no audible murmurs. LUNGS: Clear to auscultation but diminished breath sounds due to lack of effort. ABDOMEN: Obese, slightly tender due to recent paracentesis but no fluid wave can be noted. EXTREMITIES: 1+ pitting edema bilaterally. Right lower extremity has an ulcer on the lateral calf measuring about 6 x 3 cm, very mild to touch. Right big toe has two small ulcers measuring about 1 cm each with no surrounding cellulitis. Left stump pitting edema, 1+ of the mid thigh. The wound is healing appropriately. No yellowish discharge, slightly irritated from removal of the wound vacuum-assisted closure (VAC) but no necrotic bases can be noted. LABORATORY DATA: WBC 6.4, hemoglobin 10.6, hematocrit 34.4, platelets 95, ESR 52. Chemistries: Sodium 137, potassium 5.0, chloride 102, carbon dioxide 27, BUN 44, creatinine 4.33, GFR 10.8, fasting glucose 145, calcium 7.7, CRP 6.06. No new imaging. Antibiotics: Stopped linezolid 600 mg twice a day this morning due to low platelets, Levaquin 500 mg every 48 hours by mouth, start Bactrim one tablet every evening. Wound cultures positive for Pseudomonas aeruginosa and MRSA. IMPRESSION: 1. Chronic osteomyelitis of the left stump involving the tibia and fibula with cultures positive for methicillin-resistant Staphylococcus aureus (MRSA) and Pseudomonas. Currently on Levaquin. Discontinue linezolid. 2. End-stage renal disease, on hemodialysis. 3. Liver cirrhosis requiring paracentesis every week with increased lower extremity edema. 4. Pressure ulcers on the right calf. PLAN: Continue wound consult recommendations of Santyl dressing changes on the right calf along with Tubigrip to decrease edema on the right leg. Continue with oral Levaquin. Discontinue linezolid because of lowering platelets, currently at 95. Stop vancomycin per the patient's request that it causes stomach irritation and she wants to be on antibiotics that can be oral and that she can continue at home. Start Bactrim double strength one tablet every evening. Continue with wound vacuum-assisted closure (VAC) on the left stump and consult Dr. Osorio for outpatient wound followup. Lastly, monitor thrombocytopenia since discontinuation of linezolid.
[2019-08-07] MEDS: **NOTE PATIENT COMMENT** MISC XX SCH (21:00)
[2019-08-07] MEDS: SIMVASTATIN 20 MG TAB PO SCH (21:46)
[2019-08-07] MEDS: traZODone 100 MG TAB PO SCH (21:46)
[2019-08-07] MEDS: BACTRIM 160MG/800MG DS TAB PO SCH (21:47)
[2019-08-07] MEDS: GABAPENTIN 100 MG CAP PO SCH (21:47)
[2019-08-07] MEDS: RAMELTEON 8 MG TAB (ROZEREM) PO SCH (21:47)
[2019-08-08] MEDS: diphenhydrAMINE 25 MG CAP PO PRN ×4 (04:04→22:36)
[2019-08-08 06:00] VITALS: BP 121/69
[2019-08-08] MEDS: HEPARIN SOD (PORCINE) 5000 UNITS/ML VIAL SC SCH ×3 (06:00→22:00)
[2019-08-08 06:14] LABS: HEMATOCRIT 31.9 % (36.0-47.0); HEMOGLOBIN 9.8 g/dl (12.0-15.5); MEAN CORPUSCULAR HEMOGLOBIN 29.7 pg (27.0-33.0); MEAN CORPUSCULAR HGB CONC 30.7 g/dl (32.0-36.5); MEAN CORPUSCULAR VOLUME 96.7 fl (80.0-96.0); WHITE BLOOD COUNT 6.5 10^3/uL (4.0-10.0)
[2019-08-08 06:20] LABS: PLATELET COUNT, AUTOMATED 90 10^3/uL (150-450)
[2019-08-08] MEDS: LEVOTHYROXINE 125MCG TABLET (0.125MG) PO SCH (06:32)
[2019-08-08] MEDS: rOPINIRole 2MG TAB PO SCH ×2 (06:32→22:36)
[2019-08-08] MEDS: MIDODRINE 5 MG TAB PO SCH ×3 (06:33→16:20)
[2019-08-08] MEDS: FAMOTIDINE 20 MG TAB PO SCH (06:33)
[2019-08-08 06:37] LABS: CALCIUM LEVEL 7.2 MG/DL (8.8-10.2); CREATININE FOR GFR 5.23 MG/DL (0.55-1.30); GLOMERULAR FILTRATION RATE 8.6 (>39); POTASSIUM SERUM 5.1 MEQ/L (3.5-5.1)
[2019-08-08] MEDS: HumaLOG INSULIN (NovoLOG) PER UNIT SC SCH ×4 (07:30→21:00)
[2019-08-08] MEDS: LIDOCAINE 5% (LIDODERM) PATCH TD SCH (07:52)
[2019-08-08] MEDS: LEVEMIR (INSULIN DETEMIR) 1 UNITS/0.01ML SC SCH ×2 (08:20→22:38)
[2019-08-08] MEDS: MICONAZOLE 2 % POWDER (DESENEX) TOP SCH ×2 (08:22→21:00)
[2019-08-08] MEDS: LACTOBACILLUS ACIDOPHILUS CAP (BACID) PO SCH ×2 (08:22→18:16)
[2019-08-08] MEDS: SANTYL OINT 30GM TOP SCH (08:22)
[2019-08-08] MEDS: CALCIUM ACETATE 667 MG GELCAP PO SCH ×3 (08:22→18:16)
[2019-08-08] MEDS: SILVER SULFADIAZINE 1% CR 50 GM JAR TOP SCH (08:23)
--- NOTE | 2019-08-08 08:36 | IPN ---
DATE: Dalila was seen during her wound vacuum-assisted closure (VAC) changes. She was feeling well. She was actually stating that her left stump feels better and looks better. Her white count is 7.6, hemoglobin 11.3, hematocrit 37.6, platelets 131. Sodium 135, potassium 4.5, chloride 102, bicarbonate 24, BUN 40, creatinine 3.57, glucose 286, calcium 7.2, CRP 3.73. Wound culture was positive for Pseudomonas aeruginosa, sensitive to levofloxacin and all cephalosporins, meropenem, and Zosyn. Blood cultures on 07/30/2019 were negative. Also, stump had moderate Staphylococcus aureus. Susceptibility is pending. On physical exam, temperature is 97.8, pulse 80, respirations 18, blood pressure 122/60, oxygen saturation 98% on room air. Heart: Normal S1, S2 with a systolic ejection murmur at the right lower sternal border 2/6. Lungs are clear. No wheezes, rales, or rhonchi. Abdomen is soft, nontender. No hepatosplenomegaly. Obese with ascites. Extremities: +1 pitting edema bilaterally. Left stump granulation tissue; surrounding erythema around open wound. The whole stump is open with granulation tissue measuring around 10 x 12 cm. There is no purulent discharge noted. The erythema around the stump measures about 2-3 cm. Minimal tenderness to touch. Both thighs are also tender to touch, but patient just finished physical therapy. IMPRESSION: Chronic osteomyelitis of left stump with culture positive for Staphylococcus aureus and Pseudomonas aeruginosa. Patient's antibiotics will be switched to oral Levaquin at a dose of 750 mg loading followed by 500 mg every 48 hours, and linezolid will be switched from intravenous (IV) to by mouth 600 mg twice a day. The patient will be treated with 6 weeks of antibiotics for chronic osteomyelitis, but this could be done orally. DISPOSITION: Patient does not want to go to rehabilitation or to a prison. She wants to go home. She also states that her wound VAC has been malfunctioning when she was home and would like it changed. I have discussed the case with patient and family services (PFS) worker, Dragan Perez, as well as Antonella, nurse in charge, regarding patient wishes. SHAAN
--- NOTE | 2019-08-08 09:58 | REP ---
Ultrasound-guided paracentesis The procedure was performed under the direct supervision of Dr. Rivas. The risks and benefits of the procedure were explained to the patient and informed consent was obtained. The largest pocket of fluid was localized in the right flank using ultrasound guidance. The skin was prepped and draped in a sterile fashion. 1% lidocaine was used as a local anesthetic. An 8-Thai multi side-hole catheter was inserted using trocar technique. 6100 ml of yellow fluid was withdrawn and discarded. The patient tolerated the procedure well and there were no immediate complications. After the appropriate amount of monitored convalescence the patient was discharged from the department. Reviewed by ANTONIO Curiel 08/07/2019 04:18 P Electronically Signed by Aureliano Rivas MD 08/08/2019 09:49 A
[2019-08-08] MEDS: oxyCODONE 5MG TAB PO PRN (11:29)
[2019-08-08] MEDS: OYSTER SHELL CALCIUM 500 MG TAB PO SCH (11:29)
[2019-08-08] MEDS ORDERED: VANCOMYCIN HCL 750 MG, VIAL MATE ADAPTER 1 EACH in D5W 250 ML IV SCH (11:30)
[2019-08-08] MEDS: **VANCO AFTER HD** MISC XX SCH (16:00)
[2019-08-08] MEDS: LevoFLOXacin 500 MG TABLET PO SCH (18:16)
[2019-08-08] MEDS: **NOTE PATIENT COMMENT** MISC XX SCH (21:00)
[2019-08-08] MEDS: BACTRIM 160MG/800MG DS TAB PO SCH (22:37)
[2019-08-08] MEDS: traZODone 100 MG TAB PO SCH (22:37)
[2019-08-08] MEDS: RAMELTEON 8 MG TAB (ROZEREM) PO SCH (22:37)
[2019-08-08] MEDS: GABAPENTIN 100 MG CAP PO SCH (22:37)
[2019-08-08] MEDS: SIMVASTATIN 20 MG TAB PO SCH (22:37)
[2019-08-09] MEDS: SILVER SULFADIAZINE 1% CR 50 GM JAR TOP SCH ×2 (00:34→09:06)
[2019-08-09] MEDS: oxyCODONE 5MG TAB PO PRN ×2 (00:35→15:25)
[2019-08-09 06:00] VITALS: BP 118/56
[2019-08-09] MEDS: HEPARIN SOD (PORCINE) 5000 UNITS/ML VIAL SC SCH ×3 (06:00→21:42)
[2019-08-09 06:34] LABS: HEMATOCRIT 32.8 % (36.0-47.0); MEAN CORPUSCULAR HEMOGLOBIN 30.4 pg (27.0-33.0); MEAN CORPUSCULAR HGB CONC 30.5 g/dl (32.0-36.5); MEAN CORPUSCULAR VOLUME 99.7 fl (80.0-96.0); RED BLOOD COUNT 3.29 10^6/uL (4.00-5.40); WHITE BLOOD COUNT 5.9 10^3/uL (4.0-10.0)
[2019-08-09 06:36] LABS: PLATELET COUNT, AUTOMATED 70 10^3/uL (150-450)
[2019-08-09 06:52] LABS: CALCIUM LEVEL 7.2 MG/DL (8.8-10.2); CREATININE FOR GFR 4.13 MG/DL (0.55-1.30); GLOMERULAR FILTRATION RATE 11.4 (>39); POTASSIUM SERUM 4.7 MEQ/L (3.5-5.1)
[2019-08-09] MEDS: LEVOTHYROXINE 125MCG TABLET (0.125MG) PO SCH (06:58)
[2019-08-09] MEDS: HumaLOG INSULIN (NovoLOG) PER UNIT SC SCH ×4 (07:30→21:00)
[2019-08-09] MEDS: LIDOCAINE 5% (LIDODERM) PATCH TD SCH (09:00)
[2019-08-09] MEDS: CALCIUM ACETATE 667 MG GELCAP PO SCH ×3 (09:03→17:49)
[2019-08-09] MEDS: LACTOBACILLUS ACIDOPHILUS CAP (BACID) PO SCH ×2 (09:03→17:49)
[2019-08-09] MEDS: MIDODRINE 5 MG TAB PO SCH ×3 (09:03→15:25)
[2019-08-09] MEDS: LEVEMIR (INSULIN DETEMIR) 1 UNITS/0.01ML SC SCH ×2 (09:04→21:41)
[2019-08-09] MEDS: rOPINIRole 2MG TAB PO SCH ×2 (09:04→21:40)
[2019-08-09] MEDS: FAMOTIDINE 20 MG TAB PO SCH (09:04)
[2019-08-09] MEDS: SANTYL OINT 30GM TOP SCH (09:05)
[2019-08-09] MEDS: MICONAZOLE 2 % POWDER (DESENEX) TOP SCH ×2 (09:05→21:42)
[2019-08-09] MEDS: ONDANSETRON 4 MG ORAL DISINTEGRATING TAB (Q0162 PER 1MG) PO PRN (12:15)
[2019-08-09] MEDS: OYSTER SHELL CALCIUM 500 MG TAB PO SCH (13:02)
[2019-08-09] MEDS: **VANCO AFTER HD** MISC XX SCH (15:26)
--- NOTE | 2019-08-09 19:40 | IPN ---
DATE: 08/09/2019 Dalila seems to be doing well. She had an episode of nausea and vomiting this morning, but feels that this afternoon. Her wound VAC was changed by nursing this afternoon; the wound looks great. There is a small area in the center of the wound where there is some yellowish, fibrinous tissue, but measuring about 2 x 1 cm. There is a small area of exposed bone. The patient has no fever or chills. No abdominal pain. LABORATORY DATA: White count 5.9, hemoglobin 10, hematocrit 32.8, platelets 17. ESR 52. Sodium 138, potassium 4.7, chloride 105, bicarbonate 26, BUN 39, creatinine 4.13, glucose 89, calcium 7.2. IMPRESSION: 1. Chronic osteomyelitis of the left stump with culture positive for methicillin-resistant Staphylococcus aureus (MRSA) and Pseudomonas aeruginosa on by mouth Levaquin and Bactrim and doing better. Will repeat. CT, CRP, sedimentation rate and tomorrow. 2. Thrombocytopenia probably combination of linezolid and liver cirrhosis, possibly heparin. Will obtain heparin-induced antibodies. PLAN: Continue with antibiotics for a total of 6 weeks until September 11.
[2019-08-09] MEDS: **NOTE PATIENT COMMENT** MISC XX SCH (21:00)
[2019-08-09] MEDS: traZODone 100 MG TAB PO SCH (21:40)
[2019-08-09] MEDS: BACTRIM 160MG/800MG DS TAB PO SCH (21:40)
[2019-08-09] MEDS: SIMVASTATIN 20 MG TAB PO SCH (21:40)
[2019-08-09] MEDS: RAMELTEON 8 MG TAB (ROZEREM) PO SCH (21:40)
[2019-08-09] MEDS: GABAPENTIN 100 MG CAP PO SCH (21:40)
[2019-08-10] MEDS: diphenhydrAMINE 25 MG CAP PO PRN ×2 (00:16→20:43)
[2019-08-10] MEDS: oxyCODONE 5MG TAB PO PRN ×2 (00:17→20:26)
[2019-08-10] MEDS: SILVER SULFADIAZINE 1% CR 50 GM JAR TOP SCH ×4 (00:18→23:40)
[2019-08-10] MEDS: HEPARIN SOD (PORCINE) 5000 UNITS/ML VIAL SC SCH ×4 (05:59→22:00)
[2019-08-10 06:00] VITALS: BP 115/66
[2019-08-10] MEDS: FAMOTIDINE 20 MG TAB PO SCH (06:16)
[2019-08-10] MEDS: LEVOTHYROXINE 125MCG TABLET (0.125MG) PO SCH (06:16)
[2019-08-10] MEDS: rOPINIRole 2MG TAB PO SCH ×2 (06:17→20:42)
[2019-08-10] MEDS: MIDODRINE 5 MG TAB PO SCH ×3 (06:17→17:54)
[2019-08-10] MEDS: LIDOCAINE 5% (LIDODERM) PATCH TD SCH (06:18)
[2019-08-10] MEDS: MICONAZOLE 2 % POWDER (DESENEX) TOP SCH ×2 (06:18→20:43)
[2019-08-10 06:34] LABS: HEMOGLOBIN 10.2 g/dl (12.0-15.5); MEAN CORPUSCULAR HEMOGLOBIN 30.1 pg (27.0-33.0); MEAN CORPUSCULAR HGB CONC 30.9 g/dl (32.0-36.5); MEAN CORPUSCULAR VOLUME 97.3 fl (80.0-96.0); RED BLOOD COUNT 3.39 10^6/uL (4.00-5.40); WHITE BLOOD COUNT 6.3 10^3/uL (4.0-10.0)
[2019-08-10 06:39] LABS: PLATELET COUNT, AUTOMATED 80 10^3/uL (150-450)
[2019-08-10 06:41] LABS: C REACTIVE PROTEIN QUANTITATIV 2.33 MG/DL (0.00-0.30); CALCIUM LEVEL 7.6 MG/DL (8.8-10.2); CREATININE FOR GFR 5.24 MG/DL (0.55-1.30); GLOMERULAR FILTRATION RATE 8.6 (>39); POTASSIUM SERUM 5.4 MEQ/L (3.5-5.1)
[2019-08-10] MEDS: HumaLOG INSULIN (NovoLOG) PER UNIT SC SCH ×4 (07:30→20:27)
[2019-08-10] MEDS: LACTOBACILLUS ACIDOPHILUS CAP (BACID) PO SCH ×2 (08:12→17:54)
[2019-08-10] MEDS: CALCIUM ACETATE 667 MG GELCAP PO SCH ×3 (08:12→17:54)
[2019-08-10] MEDS: LEVEMIR (INSULIN DETEMIR) 1 UNITS/0.01ML SC SCH ×2 (08:13→20:43)
[2019-08-10] MEDS ORDERED: HEPARIN 1,000 UNITS/ML 10ML VIAL (FOR RADIOLOGY& DIALYSIS ONLY) IV ONE (11:00)
[2019-08-10] MEDS: OYSTER SHELL CALCIUM 500 MG TAB PO SCH (13:28)
[2019-08-10] MEDS: SANTYL OINT 30GM TOP SCH (13:31)
--- NOTE | 2019-08-10 15:05 | IPN ---
DATE: 08/04/2019 Mrs. Hernandez is seen this morning on her bedside. She is regularly dialyzed on Tuesday, Tuesday and Tuesday schedule. She has a left pcdqh-[id number]-[id number] amputation previously and her stump has been infected. She is being followed by Dr. Fontanez for antibiotics. I have noticed increased swelling on her lower extremities. Unfortunately, she has recurrent hypotension during dialysis and fluid removal with dialysis has been limited. PHYSICAL EXAMINATION: Temperature 96.7 degrees Fahrenheit, heart rate 76 per minute and respiratory rate 18 per minute. Blood pressure 103/56 mmHg and oxygen saturation 98% on room air. Head is atraumatic. Neck is supple and jugular venous distention (JVD) is not abnormally elevated sitting upright in the chair. Abdomen is soft, ascites present. Bowel sounds are normal. Extremities have no cyanosis or clubbing. Lower extremity edema is significant and all the way up to her waist. Her right foot is wrapped in dressing. Left leg stump has wound vac dressing. Neurologically, she is at her baseline mentation. Today's labs show WBC count 7.4, hemoglobin 9.9 and hematocrit 32.9. Sodium 138, potassium 4.4, CO2 28, BUN 34 and creatinine 3.37. Glucose 229 and calcium 7.4. PROBLEMS: 1. End-stage renal disease. The patient was dialyzed yesterday. Her regular dialysis is on Tuesday, Tuesday and Tuesday. 2. Hyperkalemia. Her potassium level has corrected and improved with dialysis. She needs to follow a low potassium diet. 3. Lower extremity edema. She has significant edema on lower extremities. I have talked to the patient and she has agreed for an extra ultrafiltration today and we will try to remove about 2 liters of fluid as tolerated. We will try to remove fluid slightly more aggressively during dialysis if her blood pressure allows. 4. Infected wound left leg. She is being followed by Dr. Fontanez and remains on antibiotics. Unfortunately, if she has developed osteomyelitis then her prognosis remains guarded. She might require an [id number]-wci-[id number] amputation. Overall, her condition has been quite complicated and multiorgan problems.
[2019-08-10] MEDS: LevoFLOXacin 500 MG TABLET PO SCH (17:54)
[2019-08-10] MEDS: **NOTE PATIENT COMMENT** MISC XX SCH (20:27)
[2019-08-10] MEDS: traZODone 100 MG TAB PO SCH (20:42)
[2019-08-10] MEDS: SIMVASTATIN 20 MG TAB PO SCH (20:42)
[2019-08-10] MEDS: GABAPENTIN 100 MG CAP PO SCH (20:42)
[2019-08-10] MEDS: BACTRIM 160MG/800MG DS TAB PO SCH (20:42)
[2019-08-10] MEDS: RAMELTEON 8 MG TAB (ROZEREM) PO SCH (20:42)
--- NOTE | 2019-08-10 21:09 | IPN ---
DATE: 08/10/2019 Mrs. Hernandez is seen this morning during hemodialysis. She is feeling about the same and denies any new complaints. She did have a paracentesis done earlier this week. She denies any nausea, vomiting, dyspnea or chest pain. She is currently being treated with Levaquin and Bactrim for chronic infected wound and osteomyelitis of her left leg stump. PHYSICAL EXAMINATION Temperature 98.2 degrees Fahrenheit, heart rate 72 per minute and respiratory rate 18 per minute. Blood pressure 115/66 mmHg and oxygen saturation 97%. Head is atraumatic. Neck is supple and without jugular venous distention (JVD) or thyroid enlargement. Heart: Sounds are regular and lungs clear to auscultation. Abdomen is soft with large amount of ascites and bowel sounds are present. Extremities: Without any cyanosis or clubbing. Neurologically she is at her baseline mentation. Left leg stump has wound vac dressing. Right foot is wrapped in dressing. Neurologically she is at her baseline mentation without a focal deficit at present. LABS: Today's labs show WBC count 6.3, hemoglobin 10.2 and hematocrit 33. Platelets 80,000. Sodium 137, potassium 5.4, CO2 27, BUN 56 and creatinine 5.24. Glucose 106 and calcium 7.6. C-reactive protein is down to 2.33. PROBLEMS: 1. End-stage renal disease. The patient is being dialyzed today and she is tolerating her dialysis well. 2. Hyperkalemia. She has mild hyperkalemia which will be corrected with dialysis. We are using 2.0 mEq potassium bath today. 3. Anemia. At present her anemia is stable and she will continue with weekly dose of Aranesp. No changes are being made today. 4. Hypotension. Blood pressure seems reasonably today and we are taking off only 1.5 to 2 liters of fluid as tolerated. 5. Congestive heart failure / hypervolemia. Her volume status is reasonable. We will continue our efforts to remove as much fluid as possible. She does get hypotensive particularly after her paracentesis when she has more risk for intravascular volume depletion after 6 liters of paracentesis. 6. Infected left leg stump. The patient remains on Bactrim and Levaquin. She is being followed by infectious disease.
[2019-08-11] MEDS: LEVOTHYROXINE 125MCG TABLET (0.125MG) PO SCH (05:34)
[2019-08-11] MEDS: HEPARIN SOD (PORCINE) 5000 UNITS/ML VIAL SC SCH ×3 (05:34→07:43)
[2019-08-11 06:00] VITALS: BP 119/66
[2019-08-11 06:27] LABS: HEMATOCRIT 33.9 % (36.0-47.0); HEMOGLOBIN 10.4 g/dl (12.0-15.5); MEAN CORPUSCULAR HEMOGLOBIN 29.6 pg (27.0-33.0); MEAN CORPUSCULAR HGB CONC 30.7 g/dl (32.0-36.5); MEAN CORPUSCULAR VOLUME 96.6 fl (80.0-96.0); RED BLOOD COUNT 3.51 10^6/uL (4.00-5.40); WHITE BLOOD COUNT 6.9 10^3/uL (4.0-10.0)
[2019-08-11 06:39] LABS: PLATELET COUNT, AUTOMATED 73 10^3/uL (150-450)
[2019-08-11 06:59] LABS: CALCIUM LEVEL 7.7 MG/DL (8.8-10.2); CREATININE FOR GFR 4.17 MG/DL (0.55-1.30); GLOMERULAR FILTRATION RATE 11.2 (>39); POTASSIUM SERUM 4.4 MEQ/L (3.5-5.1)
[2019-08-11] MEDS: LIDOCAINE 5% (LIDODERM) PATCH TD SCH (09:00)
[2019-08-11] MEDS: MICONAZOLE 2 % POWDER (DESENEX) TOP SCH ×2 (09:00→20:44)
[2019-08-11] MEDS: CALCIUM ACETATE 667 MG GELCAP PO SCH ×3 (10:04→17:17)
[2019-08-11] MEDS: MIDODRINE 5 MG TAB PO SCH ×3 (10:04→17:17)
[2019-08-11] MEDS: LACTOBACILLUS ACIDOPHILUS CAP (BACID) PO SCH ×2 (10:04→17:17)
[2019-08-11] MEDS: rOPINIRole 2MG TAB PO SCH ×2 (10:04→20:43)
[2019-08-11] MEDS: FAMOTIDINE 20 MG TAB PO SCH (10:04)
[2019-08-11] MEDS: SILVER SULFADIAZINE 1% CR 50 GM JAR TOP SCH (10:05)
[2019-08-11] MEDS: SANTYL OINT 30GM TOP SCH (10:05)
[2019-08-11] MEDS: LEVEMIR (INSULIN DETEMIR) 1 UNITS/0.01ML SC SCH ×2 (10:05→20:44)
[2019-08-11] MEDS: HumaLOG INSULIN (NovoLOG) PER UNIT SC SCH ×4 (10:08→20:44)
--- NOTE | 2019-08-11 11:36 | IPNPDOC ---
Text Note Date of Service The patient was seen on 08/11/19. NOTE Subjective: Patient is seen and examined at bedside. Patient was made ALC status one week ago. Patient is seen for her weekly visit. She is doing well and has had no acute events over the last week. Patient's stump is getting better and she says it is improving. The only issue the patient has is she is very itchy. Patient says the Benadryl does help somewhat which he feels like she is digging at her skin a lot. Patient's rash that she had was improved. Review of systems General: Patient denies fevers HEENT: Patient denies headaches Cardiovascular: Patient denies chest pain Respiratory: Patient denies shortness of breath, cough GI: Patient denies abdominal pain, nausea, vomiting, diarrhea : Patient denies pain or difficulty with urination Neurological: Patient denies numbness or tingling in extremities Extremities: Patient says that she does have some swelling in her legs however, this is much improved. Objective: Vitals: (see below) General: No acute distress, laying comfortably in bed. HEENT: Normocephalic, atraumatic, moist mucous membranes. Neck: No JVD or lymphadenopathy Cardiac: RRR, No murmurs Pulm: Clear to auscultation b/l. No wheezing, rhonchi Abd: Patient's abdomen is distended but nontender to palpation Ext: The erythema and edema around the left stump is much improved. There is minimal edema in the right leg. Labs (see below) Images: Images have been performed Assessment/Plan 1. Stump cellulitis. Patient's platelets continued to fall over the week and patient was switched initially to vancomycin after dialysis and Levaquin however, patient says that she gets very bad diarrhea on vancomycin so the patient was switched to Bactrim and Levaquin. Patient will be on antibiotics per Dr. Fontanez until 09/11/2019. We will continue to monitor the patient's platelet count. 2. Thrombocytopenia. Patient's platelet count is stable around 7080. We'll continue to monitor. Patient does have end-stage liver disease which may be the cause. Zyvox has been stopped which could also be the cause. 3. End-stage liver disease. Patient is due for her weekly paracentesis on Tuesday. 4. End-stage renal disease. Continue with Tuesday, Tuesday, Tuesday dialysis. We appreciate nephrology's help in treating this patient. 5. Wue-qllzwim-bgizcxbzw diabetes mellitus. Patient is currently stable on basal insulin and sliding scale regimen. 6. Rash. Patient is rash in both her groin and back have improved. We will continue to monitor. 7. Insomnia. Ross time has been working well for the patient. DVT prophy: Heparin 5000 units is on hold due to thrombocytopenia. Heparin- induced thrombocytopenia antibodies are pending. Dispo: Pending safe discharge home or placement in subacute rehabilitation. VS,Fishbone, I+O VS, Fishbone, I+O Laboratory Tests 08/11/19 05:45 Red Blood Count 3.51 L, Mean Corpuscular Volume 96.6 H, Mean Corpuscular Hemoglobin 29.6, Mean Corpuscular Hemoglobin Concent 30.7 L, Red Cell Distr ibution Width 20.3 H, Calcium Level 7.7 L Vital Signs Date Time Temp Pulse Resp B/P (MAP) Pulse Ox O2 Delivery O2 Flow Rate FiO2 08/11/19 06:00 97.4 71 17 119/66 (83) 98 08/06/19 21:27 1.0 I&O- Last 24 Hours up to 6 AM 08/11/19 06:00 Intake Total 1120 ml Output Total 1000 ml Balance 120 ml GME ATTESTATION GME ATTESTATION My faculty preceptor for this patient encounter was physically present during the encounter and was fully available. All aspects of the patient interview, examination, medical decision making process, and medical care plan development were reviewed and approved by the faculty preceptor. The faculty preceptor is aware and concurs with the plan as stated in the body of this note and will attest to such by his/her cosignature. ATTENDING NOTE I, Dede Carrizales, have independently examined this patient and performed my own physical exam, as well as reviewed the documentation and edited where necessary. I have discussed in detail with the resident / student the findings and plan of treatment as documented by the resident / student and edited their note. I agree with their findings and treatment plan and have edited their documentation. I will continue to follow the patient during this hospital stay. TOY MANN DO Aug 11, 2019 11:36 DEDE CARRIZALES MD Aug 11, 2019 14:27
[2019-08-11] MEDS: ONDANSETRON 4 MG ORAL DISINTEGRATING TAB (Q0162 PER 1MG) PO PRN (11:47)
[2019-08-11] MEDS: OYSTER SHELL CALCIUM 500 MG TAB PO SCH (12:51)
[2019-08-11] MEDS: oxyCODONE 5MG TAB PO PRN (13:00)
[2019-08-11] MEDS: BACTRIM 160MG/800MG DS TAB PO SCH (20:43)
[2019-08-11] MEDS: traZODone 100 MG TAB PO SCH (20:43)
[2019-08-11] MEDS: RAMELTEON 8 MG TAB (ROZEREM) PO SCH (20:43)
[2019-08-11] MEDS: GABAPENTIN 100 MG CAP PO SCH (20:43)
[2019-08-11] MEDS: SIMVASTATIN 20 MG TAB PO SCH (20:43)
[2019-08-11] MEDS: diphenhydrAMINE 25 MG CAP PO PRN (20:44)
[2019-08-11] MEDS: **NOTE PATIENT COMMENT** MISC XX SCH (20:45)
[2019-08-12] MEDS: oxyCODONE 5MG TAB PO PRN ×2 (00:28→22:12)
[2019-08-12] MEDS: HEPARIN SOD (PORCINE) 5000 UNITS/ML VIAL SC SCH ×3 (05:10→20:41)
[2019-08-12] MEDS: diphenhydrAMINE 25 MG CAP PO PRN ×2 (05:11→20:40)
[2019-08-12] MEDS: LEVOTHYROXINE 125MCG TABLET (0.125MG) PO SCH (05:30)
[2019-08-12 06:00] VITALS: BP 107/62
[2019-08-12 06:33] LABS: HEMATOCRIT 33.1 % (36.0-47.0); HEMOGLOBIN 10.1 g/dl (12.0-15.5); MEAN CORPUSCULAR HEMOGLOBIN 30.1 pg (27.0-33.0); MEAN CORPUSCULAR HGB CONC 30.5 g/dl (32.0-36.5); MEAN CORPUSCULAR VOLUME 98.5 fl (80.0-96.0); RED BLOOD COUNT 3.36 10^6/uL (4.00-5.40); WHITE BLOOD COUNT 9.6 10^3/uL (4.0-10.0)
[2019-08-12 06:35] LABS: PLATELET COUNT, AUTOMATED 75 10^3/uL (150-450)
[2019-08-12 06:57] LABS: CALCIUM LEVEL 7.7 MG/DL (8.8-10.2); CREATININE FOR GFR 5.38 MG/DL (0.55-1.30); GLOMERULAR FILTRATION RATE 8.4 (>39); POTASSIUM SERUM 5.5 MEQ/L (3.5-5.1)
[2019-08-12] MEDS: LIDOCAINE 5% (LIDODERM) PATCH TD SCH (09:00)
[2019-08-12] MEDS: LACTOBACILLUS ACIDOPHILUS CAP (BACID) PO SCH ×2 (09:51→17:17)
[2019-08-12] MEDS: MIDODRINE 5 MG TAB PO SCH ×3 (09:51→17:17)
[2019-08-12] MEDS: FAMOTIDINE 20 MG TAB PO SCH (09:51)
[2019-08-12] MEDS: rOPINIRole 2MG TAB PO SCH ×2 (09:51→20:39)
[2019-08-12] MEDS: CALCIUM ACETATE 667 MG GELCAP PO SCH ×3 (09:51→17:17)
[2019-08-12] MEDS: MICONAZOLE 2 % POWDER (DESENEX) TOP SCH ×2 (09:53→20:40)
[2019-08-12] MEDS: HumaLOG INSULIN (NovoLOG) PER UNIT SC SCH ×4 (09:53→20:41)
[2019-08-12] MEDS: SILVER SULFADIAZINE 1% CR 50 GM JAR TOP SCH ×2 (09:53→23:50)
[2019-08-12] MEDS: SANTYL OINT 30GM TOP SCH (09:53)
[2019-08-12] MEDS: LEVEMIR (INSULIN DETEMIR) 1 UNITS/0.01ML SC SCH ×2 (09:54→20:42)
[2019-08-12] MEDS: ONDANSETRON 4 MG ORAL DISINTEGRATING TAB (Q0162 PER 1MG) PO PRN (11:29)
[2019-08-12] MEDS ORDERED: GI COCKTAIL 50ML BTL(HYOSCYAMINE/MAALOX/LIDOCAINE VISCOUS)(1:3:1) PO ONE (12:00)
[2019-08-12] MEDS: OYSTER SHELL CALCIUM 500 MG TAB PO SCH (12:24)
[2019-08-12] MEDS: LevoFLOXacin 500 MG TABLET PO SCH (17:17)
[2019-08-12] MEDS: traZODone 100 MG TAB PO SCH (20:39)
[2019-08-12] MEDS: SIMVASTATIN 20 MG TAB PO SCH (20:39)
[2019-08-12] MEDS: RAMELTEON 8 MG TAB (ROZEREM) PO SCH (20:39)
[2019-08-12] MEDS: GABAPENTIN 100 MG CAP PO SCH (20:39)
[2019-08-12] MEDS: BACTRIM 160MG/800MG DS TAB PO SCH (20:39)
[2019-08-12] MEDS: **NOTE PATIENT COMMENT** MISC XX SCH (20:40)
--- NOTE | 2019-08-13 01:00 | IPN ---
DATE: 08/10/2019 Dalila is seen during dialysis. She had no complaints. She had no nausea or vomiting this morning. She is afebrile. LABS: On 08/10/2019, white count 6.3, hemoglobin 10.2, hematocrit 33. Platelets 80, improved from yesterday of 70. Sodium 137, potassium 5.4, chloride 103, bicarbonate 27, BUN 56, creatinine 5.24, glucose 106, calcium 7.6. CRP 2.33, down from 17.6. PHYSICAL EXAMINATION: Temperature is 98.2, pulse 72, respirations 18, blood pressure 115/66, oxygen saturation 97% on room air. HEART: Normal S1, S2 with a systolic ejection murmur 2/6 left upper sternal border. LUNGS: Clear. No wheezes, rales, or rhonchi. ABDOMEN: Soft, obese, nontender with ascites. EXTREMITIES: Trace edema mostly in the upper thigh area. Both medial thighs are tender to touch. Left leg stump with wound vacuum-assisted closure (VAC) in place and granulation tissue. The wound VAC was not changed today. IMPRESSION: 1. Chronic osteomyelitis of the left stump with culture positive for Pseudomonas aeruginosa and methicillin-resistant Staphylococcus aureus (MRSA), doing well with oral Levaquin and Bactrim. Patient will be treated for a total of 6 weeks, until mid August. 2. Thrombocytopenia, probably a combination of linezolid, liver cirrhosis, improving. 3. End-stage renal disease, on hemodialysis. PLAN: Continue same antibiotics. Levaquin was renewed today. Bactrim total of 6 weeks of treatment, until mid August. ALLERGIES: VANCOMYCIN, patient complains of diarrhea, which I doubt this is an allergy. LINEZOLID caused worsening thrombocytopenia and, therefore, was discontinued; this is an adverse drug reaction.
[2019-08-13 06:00] VITALS: BP 107/60
[2019-08-13 06:19] LABS: HEMATOCRIT 29.5 % (36.0-47.0); HEMOGLOBIN 9.2 g/dl (12.0-15.5); MEAN CORPUSCULAR HEMOGLOBIN 29.2 pg (27.0-33.0); MEAN CORPUSCULAR HGB CONC 31.2 g/dl (32.0-36.5); MEAN CORPUSCULAR VOLUME 93.7 fl (80.0-96.0); RED BLOOD COUNT 3.15 10^6/uL (4.00-5.40); WHITE BLOOD COUNT 10.4 10^3/uL (4.0-10.0)
[2019-08-13 06:23] LABS: PLATELET COUNT, AUTOMATED 83 10^3/uL (150-450)
[2019-08-13] MEDS: LIDOCAINE 5% (LIDODERM) PATCH TD SCH (06:47)
[2019-08-13] MEDS: MIDODRINE 5 MG TAB PO SCH ×3 (06:47→17:32)
[2019-08-13] MEDS: LEVOTHYROXINE 125MCG TABLET (0.125MG) PO SCH (06:47)
[2019-08-13] MEDS: rOPINIRole 2MG TAB PO SCH ×2 (06:47→21:57)
[2019-08-13] MEDS: FAMOTIDINE 20 MG TAB PO SCH (06:47)
[2019-08-13] MEDS: MICONAZOLE 2 % POWDER (DESENEX) TOP SCH ×2 (06:48→21:59)
[2019-08-13] MEDS: diphenhydrAMINE 25 MG CAP PO PRN ×2 (06:48→13:46)
[2019-08-13 06:49] LABS: CALCIUM LEVEL 7.8 MG/DL (8.8-10.2); CREATININE FOR GFR 6.31 MG/DL (0.55-1.30); POTASSIUM SERUM 5.6 MEQ/L (3.5-5.1)
[2019-08-13] MEDS: oxyCODONE 5MG TAB PO PRN ×2 (06:49→13:36)
[2019-08-13] MEDS: HumaLOG INSULIN (NovoLOG) PER UNIT SC SCH ×4 (07:30→20:10)
[2019-08-13] MEDS: LACTOBACILLUS ACIDOPHILUS CAP (BACID) PO SCH ×2 (08:00→17:31)
[2019-08-13] MEDS: CALCIUM ACETATE 667 MG GELCAP PO SCH ×3 (08:00→17:31)
[2019-08-13] MEDS: ONDANSETRON 4 MG ORAL DISINTEGRATING TAB (Q0162 PER 1MG) PO PRN (08:02)
[2019-08-13] MEDS: LEVEMIR (INSULIN DETEMIR) 1 UNITS/0.01ML SC SCH ×2 (08:11→21:58)
--- NOTE | 2019-08-13 10:26 | IPN ---
DATE:08/11/2019 SUBJECTIVE: The patient was seen and examined the bedside today morning. She is afebrile, hemodynamically stable. When I saw her in the morning she was nauseated. She was actively throwing up. She was dialyzed yesterday 1 liter of fluid was removed. OBJECTIVE: Vital signs: Temperature is 97.4 degrees. Blood pressure 119/66. Pulse 71, respiratory 17 saturating 98% on room air. Intake and output. There is no urine output recorded. Total emesis recorded is 100 mL. Ultrafiltration with hemodialysis was 1 liter weight in the bed scale is not available. PHYSICAL EXAMINATION: General: The patient is awake, alert, oriented times three, laying in bed. Mild distress. She is actively vomiting. Head and neck exam extraocular muscles intact. Pupils equally round and reactive to light. Mucous membranes are moist. Neck is supple. There is no JVD. Cardiovascular: S1, S2 regular rate 1+ edema of the right lower extremity. Respiratory: Chest is clear to auscultation bilaterally. Bilateral equal air entry. No rales or rhonchi. Abdomen: Soft, obese, positive bowel sounds. Mild amount of ascites, abdominal wall edema was noted. Musculoskeletal: She has left below-knee amputation site wound vac right lower extremity foot is dressed because of an ulcer and there is 1+ edema. [employer] SYSTEMS ARCHITECT: No focal deficit power is 5/5 in bilateral upper extremities. LAB REVIEW: CBC showed WBC 6.9, hemoglobin 10.4, platelets of 73. BMP showed sodium 138, potassium 4.4, chloride 102, bicarb 30, BUN 42, creatinine is 4.1. CURRENT INPATIENT MEDICATIONS: The patient's medications were all reviewed by me. She continues to be on oral Levaquin 500 mg by mouth 48 hourly and Bactrim 1 tablet by mouth daily. ASSESSMENT/PLAN: 1. End-stage renal disease. The patient's regular dialysis days are Tuesday, Tuesday, Tuesday. She was dialyzed yesterday 1 liter of fluid was removed. Next hemodialysis will be done after the weekend on Tuesday. 2. Chronic hypotension. Continue current dose of midodrine. She tolerated the ultrafiltration yesterday. 3. 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 The patient continues to be on Bactrim and Levaquin as per infectious disease. 4. Anemia end-stage renal disease, hemoglobin is 10.4 which is optimal. She continues to be on Aranesp 190 mcg IV with dialysis. 5. Nausea and vomiting most likely it is associated with multiple medications the patient is going to get as needed Zofran.
--- NOTE | 2019-08-13 10:55 | IPN ---
DATE OF SERVICE: 08/12/2019 SUBJECTIVE: The patient was seen and examined at the bedside today morning. The patient is afebrile, hemodynamically stable. She reports that her nausea is better today. She denies any active complaints apart from a mild amount of pain in the left lower extremity. OBJECTIVE: Vital signs: Temperature is 97.4 degrees Fahrenheit, blood pressure 107/62, pulse is 74, respiratory rate of 18, saturating 94% on room air. Intake and output: There is no urine output recorded. Weight in the bed scale is 76.3 kg. PHYSICAL EXAM: General: The patient is awake, alert, oriented times three, laying in bed, in no apparent distress. Head and neck exam: Extraocular muscles intact. Pupils equally round and reactive to light. Mucous membranes are moist. Neck is supple. There is no jugular venous distention (JVD). Cardiovascular: S1, S2, regular rate, 1+ edema of the right lower extremity. Respiratory: Chest is clear to auscultation bilaterally. Bilateral equal air entry. No rales or rhonchi. Abdomen is distended. He has a moderate to large amount of ascites. Abdominal wall edema is noted. Musculoskeletal: Left below-knee amputation site wound vacuum-assisted closure (VAC). Right lower extremity with was 1+ edema and ulcer with dressing on the right foot. Central nervous system (BILINGUAL ACCOUNT MANAGER): No focal deficit. Power is 5/5 in bilateral upper extremities. LAB REVIEW: CBC showed WBC 9.6, hemoglobin 10.1, platelets are 75. BMP showed sodium 137, potassium 5.5, chloride 102, bicarbonate 28, BUN 54, creatinine is 5.3, calcium 7.7. CURRENT INPATIENT MEDICATIONS: The patient's medications were all reviewed by me. There is no change in the medications today as compared with yesterday. ASSESSMENT AND PLAN: 1. End-stage renal disease. The patient's regular dialysis days are Tuesday, Tuesday, Tuesday. She will be dialyzed tomorrow morning. 2. Hyperkalemia. Potassium is 5.5,which is acceptable for her renal failure. She will be dialyzed with a 2K bath tomorrow, which will help improve her potassium. 3. Anemia in end-stage renal disease. Hemoglobin level is 10.1, which is optimal with the current dose of Aranesp. 4. Cirrhosis and recurrent ascites. I have ordered another ascitic tap to be done on 08/14/2019, Tuesday morning. 5. Infected left [id number] site stump with osteomyelitis. The patient currently is on oral antibiotics as per Infectious Disease. Duration of antibiotics is as per Infectious Disease (ID) recommendations.
[2019-08-13] MEDS ORDERED: HEPARIN 1,000 UNITS/ML 10ML VIAL (FOR RADIOLOGY& DIALYSIS ONLY) IV ONE (12:00)
[2019-08-13] MEDS: OYSTER SHELL CALCIUM 500 MG TAB PO SCH (13:37)
[2019-08-13] MEDS: SILVER SULFADIAZINE 1% CR 50 GM JAR TOP SCH ×2 (13:44→21:59)
[2019-08-13] MEDS: SANTYL OINT 30GM TOP SCH (13:44)
--- NOTE | 2019-08-13 15:35 | IPN ---
DATE: 08/08/2019 Mrs. Hernandez is seen this morning on her bedside. She underwent paracentesis yesterday and reports that 6.1 liters of fluid was removed. Her abdominal distention has improved significantly. She denies any nausea, vomiting, dyspnea or chest pain. She has methicillin resistant Staphylococcus aureus (MRSA) and pseudomonas in her left leg stump wound culture. She is now on oral Levaquin and Bactrim. Yesterday I was called by the resident physician and asked about vancomycin. I had advised to give one dose of vancomycin 1 gram and then give her the dosing after dialysis. Dr. Fontanez has started her on Bactrim one tablet daily and she is also on Levaquin 500 mg every 48 hours. PHYSICAL EXAMINATION: She is awake, alert, and oriented times three. Temperature is 98.4 degrees Fahrenheit, heart rate is 78 per minute and respiratory rate 17 per minute. Blood pressure 121/69 mmHg and oxygen saturation 98% on room air. Head is atraumatic. Neck is supple and jugular venous distention (JVD) is not abnormally elevated. Heart sounds are regular and lung sounds clear to auscultation. Abdominal distention has improved significantly but ascites are still present. Extremities have no cyanosis or clubbing. Left leg stump has wound Vac dressing. Right foot is also wrapped in dressing. Neurologically, she is awake, alert and oriented times three. LABORATORIES: Today laboratories show a WBC count of 6.5, hemoglobin 9.8, and hematocrit of 31.9, platelets 90,000. Sodium 138, potassium 5.1, CO2 of 25, BUN 61, creatinine 5.23. Glucose 104 and calcium 7.2. C-reactive protein was 6.0 yesterday. PROBLEMS: 1. End stage renal disease. The patient is due for dialysis today and will be dialyzed this afternoon. We will use 2.0 mEq of potassium bath in view of her serum potassium of 5.1. 2. Congestive heart failure (CHF) and hypervolemia. She does have some leg edema and we will keep up our efforts to optimize her volume status. We will try to remove about 2.5 liters of fluid as tolerated. She does get hypotension during dialysis, which limits our efforts to remove the fluid. She also had a large amount of paracentesis done yesterday and that also increases her risk for hypotension. 3. Anemia. Her anemia is stable and we will continue to give her Aranesp once a week during dialysis. 4. Infected left leg stump. She is now on Bactrim and Levaquin for methicillin resistant Staphylococcus aureus (MRSA) and pseudomonas, respectively. She is being followed by Dr. Fontanez.
--- NOTE | 2019-08-13 19:22 | IPN ---
DATE: 08/13/2019 SUBJECTIVE: The patient was seen and examined at the bedside today morning during hemodialysis procedure. She is tolerating the hemodialysis procedure well. She reports that she is nauseated today but she denies any vomiting. She does report abdominal distension and she is due for paracentesis tomorrow morning. Heparin-induced thrombocytopenia antibodies result just came back positive. OBJECTIVE: VITAL SIGNS: Temperature is 98.1 degrees Fahrenheit, blood pressure 107/60, pulse is 76, respiratory rate of 16, saturating 98% on room air. INTAKE AND OUTPUT: There is no urine output recorded. Weight in the bed scale is 77 kg. PHYSICAL EXAMINATION: GENERAL: The patient is awake, alert, oriented times three, laying in bed, getting hemodialysis done, in no apparent distress. HEAD AND NECK: Extraocular muscles intact. Pupils equally round and reactive to light. Mucous membranes are moist. Neck is supple. There is no jugular venous distention (JVD). CARDIOVASCULAR: S1, S2, regular rate, 1+ edema of the right lower extremity. RESPIRATORY: Chest is clear to auscultation bilaterally. Bilateral equal air entry. No rales or rhonchi. ABDOMEN: Distended. She has a large amount of ascites. Abdominal wall edema is also noted. MUSCULOSKELETAL: Left below-knee amputation site wound vacuum-assisted closure (VAC) and right lower extremity with 1+ edema and a wound on the right foot which is covered with a dressing. CENTRAL NERVOUS SYSTEM (HYDRAULIC GOVERNOR ASSEMBLER): No focal deficit. Power is 5/5 in bilateral upper extremities. LABORATORY REVIEW: CBC showed a WBC 10.4, hemoglobin 9.2, platelets are 83. BMP showed sodium 134, potassium 5.6, chloride 100, bicarbonate 26, BUN 57, creatinine 6.3, glucose 88, calcium is 7.8. Heparin-induced antibody came back positive at 1.5. CURRENT INPATIENT MEDICATIONS: The patient's medications were all reviewed by me. The patient is getting subcutaneous heparin which is being stopped now. I am also going to stop the IV heparin during dialysis now. No other change in the medications today as compared with yesterday. ASSESSMENT AND PLAN: 1. End-stage renal disease on hemodialysis. The patient's regular dialysis days are Tuesday, Tuesday, Tuesday. She is being dialyzed today. Ultrafiltration goal will be around 1.5 to 2 kg as tolerated by her blood pressure. 2. Heparin-induced thrombocytopenia. The patient's subcutaneous heparin during daytime and IV heparin during dialysis is being stopped now. 3. Hyperkalemia. Potassium level is 5.6. She is being dialyzed with a 2K bath. Potassium is expected to improve after that. 4. Hyponatremia. The patient has hypervolemic hyponatremia. Sodium is expected to improve after dialysis. 5. Anemia and end-stage renal disease. Hemoglobin is 9.2. She is on Aranesp 200 mcg IV with hemodialysis. Continue the current dose. 6. Cirrhosis and recurrent ascites. The patient is going to get ascitic tap done tomorrow morning. 7. Infected left below-knee amputation stump with osteomyelitis of tibia and fibula. The patient is on oral Bactrim and Levaquin as recommended by infectious disease.
[2019-08-13] MEDS: RAMELTEON 8 MG TAB (ROZEREM) PO SCH (21:57)
[2019-08-13] MEDS: traZODone 100 MG TAB PO SCH (21:57)
[2019-08-13] MEDS: BACTRIM 160MG/800MG DS TAB PO SCH (21:57)
[2019-08-13] MEDS: SIMVASTATIN 20 MG TAB PO SCH (21:57)
[2019-08-13] MEDS: GABAPENTIN 100 MG CAP PO SCH (21:58)
[2019-08-13] MEDS: **NOTE PATIENT COMMENT** MISC XX SCH (21:59)
[2019-08-14] MEDS: diphenhydrAMINE 25 MG CAP PO PRN ×3 (00:26→17:27)
[2019-08-14] MEDS: LEVOTHYROXINE 125MCG TABLET (0.125MG) PO SCH (05:50)
[2019-08-14 06:00] VITALS: BP 125/81
[2019-08-14 06:52] LABS: HEMATOCRIT 31.8 % (36.0-47.0); HEMOGLOBIN 9.8 g/dl (12.0-15.5); MEAN CORPUSCULAR HEMOGLOBIN 30.6 pg (27.0-33.0); MEAN CORPUSCULAR HGB CONC 30.8 g/dl (32.0-36.5); MEAN CORPUSCULAR VOLUME 99.4 fl (80.0-96.0); WHITE BLOOD COUNT 8.4 10^3/uL (4.0-10.0)
[2019-08-14 06:56] LABS: PLATELET COUNT, AUTOMATED 93 10^3/uL (150-450)
[2019-08-14 07:28] LABS: CALCIUM LEVEL 7.7 MG/DL (8.8-10.2); CREATININE FOR GFR 4.54 MG/DL (0.55-1.30); GLOMERULAR FILTRATION RATE 10.2 (>39)
[2019-08-14] MEDS: HumaLOG INSULIN (NovoLOG) PER UNIT SC SCH ×4 (07:30→21:00)
[2019-08-14] MEDS: LEVEMIR (INSULIN DETEMIR) 1 UNITS/0.01ML SC SCH ×2 (07:38→21:33)
[2019-08-14] MEDS: CALCIUM ACETATE 667 MG GELCAP PO SCH ×3 (08:06→17:27)
[2019-08-14] MEDS: rOPINIRole 2MG TAB PO SCH ×2 (08:06→21:32)
[2019-08-14] MEDS: MIDODRINE 5 MG TAB PO SCH ×3 (08:06→17:27)
[2019-08-14] MEDS: FAMOTIDINE 20 MG TAB PO SCH (08:06)
[2019-08-14] MEDS: LACTOBACILLUS ACIDOPHILUS CAP (BACID) PO SCH ×2 (08:06→17:27)
[2019-08-14] MEDS: LIDOCAINE 5% (LIDODERM) PATCH TD SCH (08:07)
[2019-08-14] MEDS: SANTYL OINT 30GM TOP SCH (08:08)
[2019-08-14] MEDS: MICONAZOLE 2 % POWDER (DESENEX) TOP SCH ×2 (08:08→21:34)
[2019-08-14] MEDS: SILVER SULFADIAZINE 1% CR 50 GM JAR TOP SCH ×2 (08:08→21:34)
[2019-08-14] MEDS: OYSTER SHELL CALCIUM 500 MG TAB PO SCH (12:46)
[2019-08-14] MEDS: oxyCODONE 5MG TAB PO PRN ×2 (13:30→17:28)
[2019-08-14] MEDS: LevoFLOXacin 500 MG TABLET PO SCH (17:27)
--- NOTE | 2019-08-14 18:00 | IPN ---
DATE: 08/14/2019 SUBJECTIVE: The patient was seen and examined at the bedside today morning. She was dialyzed yesterday and one liter of fluid was removed. She denies any active complaints. The patient is scheduled for paracentesis today. OBJECTIVE: VITAL SIGNS: Temperature is 96.7 degrees Fahrenheit, blood pressure 125/81, pulse is 72, respiratory of 18, saturating 90% on room air. INTAKE AND OUTPUT: Ultrafiltration with hemodialysis was one liter yesterday. Weight in the bed scale was 77 kg yesterday. There is no weight available today. PHYSICAL EXAMINATION: GENERAL: The patient is awake, alert, oriented times three, laying in bed, in no apparent distress. HEAD AND NECK: Extraocular muscles intact. Pupils equally round and reactive to light. Mucous membranes are moist. Neck is supple. There is no jugular venous distention (JVD). CARDIOVASCULAR: S1, S2, regular rate, 1+ edema of the right lower extremity. RESPIRATORY: Chest is clear to auscultation bilaterally. Bilateral equal air entry. No rales or rhonchi. ABDOMEN: Soft, distended, large amount of ascites, abdominal wall edema. MUSCULOSKELETAL: Left below-knee amputation site wound vacuum-assisted closure (VAC) and right lower extremity foot wound with a dressing. CENTRAL NERVOUS SYSTEM (GRASS FARMER): No focal deficit. Power is 5/5 in bilateral upper extremities. LABORATORY REVIEW: CBC showed a WBC 8.4, hemoglobin 9.8, platelets are 93. BMP showed sodium 142, potassium 5, chloride 108, bicarbonate 26, BUN 36, creatinine is 4.5, calcium 7.7. CURRENT INPATIENT MEDICATIONS: The patient's medications were all reviewed by me. There is no change in the medications today as compared with yesterday. ASSESSMENT AND PLAN: 1. End-stage renal disease, on hemodialysis. The patient's regular dialysis days are Tuesday, Tuesday, Tuesday. She was dialyzed yesterday and one liter of fluid was removed. Next hemodialysis will be tomorrow morning. 2. Cirrhosis and recurrent ascites. The patient is going to have ascitic tap done today. 3. 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 Continue Levaquin and Bactrim. Continue wound vacuum-assisted closure (VAC) as per surgical service. 4. Hyponatremia. It was hypervolemic hyponatremia. Sodium has improved to 142 after dialysis today. 5. Anemia and end-stage renal disease. Hemoglobin is 9.8 which is optimal. Continue current dose of Aranesp with dialysis.
[2019-08-14] MEDS: **NOTE PATIENT COMMENT** MISC XX SCH ×2 (21:00→21:34)
[2019-08-14] MEDS: RAMELTEON 8 MG TAB (ROZEREM) PO SCH (21:32)
[2019-08-14] MEDS: GABAPENTIN 100 MG CAP PO SCH (21:33)
[2019-08-14] MEDS: SIMVASTATIN 20 MG TAB PO SCH (21:33)
[2019-08-14] MEDS: traZODone 100 MG TAB PO SCH (21:33)
[2019-08-14] MEDS: BACTRIM 160MG/800MG DS TAB PO SCH (21:33)
[2019-08-15 06:00] VITALS: BP 80/44
[2019-08-15] MEDS: rOPINIRole 2MG TAB PO SCH ×2 (06:14→22:00)
[2019-08-15] MEDS: CALCIUM ACETATE 667 MG GELCAP PO SCH ×3 (06:14→17:39)
[2019-08-15] MEDS: LACTOBACILLUS ACIDOPHILUS CAP (BACID) PO SCH ×2 (06:14→17:40)
[2019-08-15] MEDS: FAMOTIDINE 20 MG TAB PO SCH (06:14)
[2019-08-15] MEDS: LEVOTHYROXINE 125MCG TABLET (0.125MG) PO SCH (06:14)
[2019-08-15] MEDS: MIDODRINE 5 MG TAB PO SCH ×3 (06:15→17:40)
[2019-08-15] MEDS: LIDOCAINE 5% (LIDODERM) PATCH TD SCH (06:15)
[2019-08-15 06:52] LABS: BASO # 0.1 10^3/uL (0.0-0.2); BASO % 0.6 % (0.0-1.0); EOS # 0.4 10^3/uL (0.0-0.5); HEMATOCRIT 31.7 % (36.0-47.0); HEMOGLOBIN 9.5 g/dl (12.0-15.5); LYMPH # 1.9 10^3/uL (1.5-5.0); LYMPH % 23.2 % (24.0-44.0); MEAN CORPUSCULAR HEMOGLOBIN 28.9 pg (27.0-33.0); MEAN CORPUSCULAR VOLUME 96.4 fl (80.0-96.0); MONO % 12.9 % (0.0-5.0); NEUTROPHILS # 4.3 10^3/uL (1.5-8.5); NEUTROPHILS % 53.7 % (36.0-66.0); PLATELET COUNT, AUTOMATED 110 10^3/uL (150-450); RED BLOOD COUNT 3.29 10^6/uL (4.00-5.40)
[2019-08-15 07:07] VITALS: BP 96/42
[2019-08-15 07:22] LABS: ALBUMIN 1.5 GM/DL (3.2-5.2); C REACTIVE PROTEIN QUANTITATIV 2.07 MG/DL (0.00-0.30); CALCIUM LEVEL 7.2 MG/DL (8.8-10.2); CREATININE FOR GFR 5.71 MG/DL (0.55-1.30); GLOMERULAR FILTRATION RATE 7.8 (>39); POTASSIUM SERUM 5.7 MEQ/L (3.5-5.1)
[2019-08-15] MEDS: HumaLOG INSULIN (NovoLOG) PER UNIT SC SCH ×4 (07:30→21:00)
[2019-08-15] MEDS: LEVEMIR (INSULIN DETEMIR) 1 UNITS/0.01ML SC SCH ×2 (07:31→22:00)
[2019-08-15] MEDS: ONDANSETRON 4 MG ORAL DISINTEGRATING TAB (Q0162 PER 1MG) PO PRN (09:07)
[2019-08-15] MEDS ORDERED: LIDOCAINE 1% SDV 5 ML VIAL SQ ONE (11:00)
--- NOTE | 2019-08-15 11:06 | IPN ---
DATE OF SERVICE: 08/15/2019 Dalila is doing very well. She was seen today after she had a paracentesis for ascites. She denies any nausea, vomiting or diarrhea. No abdominal pain, fever or chills. Wound Vac was being changed by the nurse in charge Antonella. The stump looks great. There is still some exposed bone measuring about 1 cm, a small area in the middle of the stump that has fibrinous material but no purulent drainage, red granulation tissue and no surrounding cellulitis. The edema has decreased. LABORATORY DATA: White count 8.4, hemoglobin 9.8, hematocrit 31.8, platelets 93 improving from 73. Sodium 142, potassium 5, chloride 108, bicarb 26, BUN 36, creatinine 4.5, glucose 91. CRP was last done on 08/10/2019 and was 2.33. Wound culture from 07/31/2019 had Pseudomonas aeruginosa and methicillin-resistant Staphylococcus aureus (MRSA). IMPRESSION: 1. Chronic osteomyelitis of the left stump. Doing much better on current antibiotic. She has been on appropriate antibiotics since 07/30/2019. Doing well on by mouth Levaquin for Pseudomonas and Bactrim for MRSA. She will be treated for a total of 6 weeks until mid August. 2. Thrombocytopenia, combination of medication and liver cirrhosis. Improving since off linezolid. 3. End-stage renal disease on hemodialysis. 4. Idiopathic liver cirrhosis. The patient required paracentesis today. PLAN: Continue antibiotics until 09/11/2019. Please consult plastic surgery, Dr. Shasha Jack, for possibility of wound graft. Will consult her on , the same time as wound Vac dressing changes, as a plan hopefully to be done as a later stage towards august.
[2019-08-15] MEDS: OYSTER SHELL CALCIUM 500 MG TAB PO SCH (13:56)
[2019-08-15] MEDS: SANTYL OINT 30GM TOP SCH (13:58)
[2019-08-15] MEDS: MICONAZOLE 2 % POWDER (DESENEX) TOP SCH ×2 (13:58→22:01)
[2019-08-15] MEDS: SILVER SULFADIAZINE 1% CR 50 GM JAR TOP SCH ×2 (13:58→22:00)
[2019-08-15 14:00] VITALS: BP 103/55
[2019-08-15] MEDS: diphenhydrAMINE 25 MG CAP PO PRN ×2 (15:36→22:01)
--- NOTE | 2019-08-15 17:24 | IPN ---
DATE: 07/15/2019 SUBJECTIVE: The patient was seen and examined at the bedside today morning during hemodialysis procedure. She is tolerating the hemodialysis procedure well. She got the paracentesis done yesterday and as reported by the patient, about 7.5 liters of fluid was removed. The patient denies any active complaints. OBJECTIVE: Vital signs: Temperature is 96.1 degrees Fahrenheit, blood pressure 96/42, pulse is 70, respiratory rate of 15, saturating 97% on room air. Intake and output. There is no urine output recorded. Paracentesis was about 7.5 liters. Weight on the bed scale is not available. PHYSICAL EXAMINATION General: The patient is awake, alert, oriented times three, laying in bed getting dialysis done. Head and neck exam: Extraocular muscles intact. Pupils equally round and reactive to light. Mucous membranes are moist. Neck is supple. There is no jugular venous distention (JVD). Cardiovascular: S1, S2, regular rate. 1+ edema of the right lower extremity. Respiratory: Chest is clear to auscultation bilaterally. Bilateral equal air entry. No rales or rhonchi. Abdomen: Soft, positive bowel sounds. Ascites is better today. She still has abdominal wall edema. Musculoskeletal: Left below-knee amputation site wound VAC and right lower extremity edema with a wound and dressing on the right foot. Central nervous system (PARKING INSPECTOR): No focal deficit. Power is 5/5 in all extremities. LAB REVIEW: CBC showed a WBC of 8, hemoglobin 9.5, platelets are 110. BMP showed sodium 136, potassium 5.7, chloride 105, bicarbonate 24, BUN 47, creatinine is 5.7, phosphorus is 5, C-reactive protein is 2, albumin is 1.5. CURRENT INPATIENT MEDICATIONS: The patient's medications were all reviewed by me. There is no change in the medications today. ASSESSMENT/PLAN: 1. End-stage renal disease on hemodialysis. The patient is being dialyzed today according to Tuesday, Tuesday, Tuesday schedule. Ultrafiltration goal will be 1.5 liters. 2. Cirrhosis and recurrent ascites. The patient got the paracentesis done yesterday; 7.5 liters of fluid was removed. She is getting weekly taps. 3. Infected left below-knee amputation site stump. The patient is being seen by infectious disease as well. She is currently on oral Levaquin for Pseudomonas and Bactrim for methicillin-resistant Staphylococcus aureus (MRSA). She will need a total of 6 weeks of antibiotics until mid August. 4. Hyperkalemia. The patient is being dialyzed with a 2K bath. Potassium level is expected to improve after that. 5. Anemia in end-stage renal disease. Hemoglobin level is optimal. No need of blood transfusion. Continue current dose of Aranesp.
[2019-08-15] MEDS: **NOTE PATIENT COMMENT** MISC XX SCH (21:00)
[2019-08-15] MEDS: RAMELTEON 8 MG TAB (ROZEREM) PO SCH (22:00)
[2019-08-15] MEDS: traZODone 100 MG TAB PO SCH (22:00)
[2019-08-15] MEDS: GABAPENTIN 100 MG CAP PO SCH (22:00)
[2019-08-15] MEDS: SIMVASTATIN 20 MG TAB PO SCH (22:01)
[2019-08-15] MEDS: BACTRIM 160MG/800MG DS TAB PO SCH (22:01)
[2019-08-16] MEDS: oxyCODONE 5MG TAB PO PRN ×2 (00:18→12:42)
[2019-08-16 06:00] VITALS: BP 84/46
[2019-08-16] MEDS: LEVOTHYROXINE 125MCG TABLET (0.125MG) PO SCH (06:05)
[2019-08-16] MEDS: LACTOBACILLUS ACIDOPHILUS CAP (BACID) PO SCH ×2 (08:12→17:52)
[2019-08-16] MEDS: HumaLOG INSULIN (NovoLOG) PER UNIT SC SCH ×4 (08:12→21:00)
[2019-08-16] MEDS: LEVEMIR (INSULIN DETEMIR) 1 UNITS/0.01ML SC SCH ×2 (08:12→21:58)
[2019-08-16] MEDS: CALCIUM ACETATE 667 MG GELCAP PO SCH ×3 (08:12→17:52)
[2019-08-16] MEDS: FAMOTIDINE 20 MG TAB PO SCH (08:13)
[2019-08-16] MEDS: MIDODRINE 5 MG TAB PO SCH ×3 (08:13→17:52)
[2019-08-16] MEDS: rOPINIRole 2MG TAB PO SCH ×2 (08:13→21:59)
[2019-08-16] MEDS: LIDOCAINE 5% (LIDODERM) PATCH TD SCH (08:13)
[2019-08-16] MEDS: SILVER SULFADIAZINE 1% CR 50 GM JAR TOP SCH ×2 (08:14→22:00)
[2019-08-16] MEDS: SANTYL OINT 30GM TOP SCH (08:14)
[2019-08-16] MEDS: MICONAZOLE 2 % POWDER (DESENEX) TOP SCH ×2 (08:15→22:00)
[2019-08-16] MEDS: OYSTER SHELL CALCIUM 500 MG TAB PO SCH (12:42)
--- NOTE | 2019-08-16 13:02 | IPN ---
DATE OF SERVICE: 08/16/2019 SUBJECTIVE: The patient was seen and examined at the bedside today morning. She was dialyzed yesterday. She tolerated the hemodialysis procedure well. 1.5 liters of fluid was removed. She continues to have left leg wound vacuum-assisted closure (VAC). The patient reports that she is getting ready to be discharged today possibly to home. OBJECTIVE: Vital signs: Temperature is 98.2 degree Fahrenheit, blood pressure 84/46, pulse is 71, respiratory of 18, saturating 97% on room air. Intake and output - Ultrafiltration with hemodialysis was 1.5 liters yesterday. Weight in the bed scale is not available. PHYSICAL EXAMINATION: General: The patient is awake, alert, oriented times three, laying in bed in no apparent distress. Head and neck exam extraocular muscles intact. Pupils equally round and reactive to light. Mucous membranes are moist. Neck is supple. There is no jugular venous distention (JVD). Cardiovascular: S1, S2, regular rate 1+ edema of the right lower extremity. Respiratory: Chest is clear to auscultation bilaterally. Bilateral equal air entry. Abdomen: Soft, obese, positive bowel sounds. Abdominal wall edema. Mild amount of ascites was noted. Musculoskeletal: Left below-knee amputation site wound vac and right lower extremity 1+ edema with dressing on the right foot. WEB DEVELOPMENT INSTRUCTOR: No focal deficit. Power is 5/5 in bilateral upper extremities. LAB REVIEW: CBC showed a WBC 8, hemoglobin 9.5, platelets are 110. BMP showed a potassium 5.7, but that was from yesterday, the patient was dialyzed after that. CURRENT INPATIENT MEDICATIONS: The patient's medications were all reviewed by me. No change in the medications today as compared with yesterday. ASSESSMENT AND PLAN: 1. End-stage renal disease. The patient is dialysis dependent. She her regular schedule his Tuesday, Tuesday, Tuesday. If she gets discharged she will be dialyzed as outpatient tomorrow morning. 2. Cirrhosis and recurrent ascites. The patient got the ascites tap done last Tuesday. She gets once a week tap. If she gets discharged she will have to come as outpatient to radiology for weekly taps. 3. Infected left below-knee amputation site stump . The patient is currently on Levaquin and Bactrim and she would need antibiotic until mid August. 4. Anemia in end-stage renal disease. Hemoglobin level is optimal. Rest of anemia management will be done as outpatient. 5. DISPOSITION: patient is okay to be discharged from nephrology standpoint. She will be dialyzed tomorrow morning as outpatient.
[2019-08-16 14:00] VITALS: BP 104/55
[2019-08-16] MEDS: LevoFLOXacin 500 MG TABLET PO SCH (17:52)
[2019-08-16] MEDS ORDERED: APIXABAN 2.5 MG TAB (ELIQUIS) PO SCH (21:00)
[2019-08-16] MEDS: **NOTE PATIENT COMMENT** MISC XX SCH (21:00)
[2019-08-16] MEDS: traZODone 100 MG TAB PO SCH (21:58)
[2019-08-16] MEDS: RAMELTEON 8 MG TAB (ROZEREM) PO SCH (21:58)
[2019-08-16] MEDS: BACTRIM 160MG/800MG DS TAB PO SCH (21:58)
[2019-08-16] MEDS: SIMVASTATIN 20 MG TAB PO SCH (21:59)
[2019-08-16] MEDS: GABAPENTIN 100 MG CAP PO SCH (21:59)
[2019-08-17 06:00] VITALS: BP 129/61
[2019-08-17] MEDS: HumaLOG INSULIN (NovoLOG) PER UNIT SC SCH ×4 (06:14→21:00)
[2019-08-17] MEDS: LEVOTHYROXINE 125MCG TABLET (0.125MG) PO SCH (06:24)
[2019-08-17] MEDS: MIDODRINE 5 MG TAB PO SCH ×4 (06:24→17:31)
[2019-08-17] MEDS: FAMOTIDINE 20 MG TAB PO SCH (06:25)
[2019-08-17] MEDS: rOPINIRole 2MG TAB PO SCH ×2 (06:25→22:22)
[2019-08-17] MEDS: CALCIUM ACETATE 667 MG GELCAP PO SCH ×4 (06:26→17:31)
[2019-08-17] MEDS: LACTOBACILLUS ACIDOPHILUS CAP (BACID) PO SCH (06:26)
[2019-08-17] MEDS: MICONAZOLE 2 % POWDER (DESENEX) TOP SCH (06:30)
[2019-08-17] MEDS: LIDOCAINE 5% (LIDODERM) PATCH TD SCH (08:50)
[2019-08-17] MEDS: SILVER SULFADIAZINE 1% CR 50 GM JAR TOP SCH (08:50)
[2019-08-17] MEDS: SANTYL OINT 30GM TOP SCH (08:50)
[2019-08-17] MEDS: LEVEMIR (INSULIN DETEMIR) 1 UNITS/0.01ML SC SCH ×2 (09:00→22:22)
[2019-08-17 10:53] LABS: BASO % 0.6 % (0.0-1.0); EOS # 0.3 10^3/uL (0.0-0.5); EOS % 4.8 % (0.0-3.0); HEMATOCRIT 32.3 % (36.0-47.0); HEMOGLOBIN 9.8 g/dl (12.0-15.5); LYMPH % 15.6 % (24.0-44.0); MEAN CORPUSCULAR HEMOGLOBIN 29.1 pg (27.0-33.0); MEAN CORPUSCULAR HGB CONC 30.3 g/dl (32.0-36.5); MEAN CORPUSCULAR VOLUME 95.8 fl (80.0-96.0); MONO # 0.7 10^3/uL (0.0-0.8); MONO % 10.1 % (0.0-5.0); NEUTROPHILS # 4.2 10^3/uL (1.5-8.5); NEUTROPHILS % 64.1 % (36.0-66.0); PLATELET COUNT, AUTOMATED 124 10^3/uL (150-450); RED BLOOD COUNT 3.37 10^6/uL (4.00-5.40); WHITE BLOOD COUNT 6.6 10^3/uL (4.0-10.0)
[2019-08-17 11:19] LABS: ALBUMIN 1.7 GM/DL (3.2-5.2); CALCIUM LEVEL 7.3 MG/DL (8.8-10.2); CREATININE FOR GFR 5.45 MG/DL (0.55-1.30); GLOMERULAR FILTRATION RATE 8.2 (>39); PHOSPHORUS LEVEL 5.9 MG/DL (2.5-4.9); POTASSIUM SERUM 5.8 MEQ/L (3.5-5.1)
[2019-08-17] MEDS: OYSTER SHELL CALCIUM 500 MG TAB PO SCH (11:23)
[2019-08-17] MEDS: ONDANSETRON 4 MG ORAL DISINTEGRATING TAB (Q0162 PER 1MG) PO PRN (11:34)
[2019-08-17] MEDS: **NOTE PATIENT COMMENT** MISC XX SCH (21:00)
[2019-08-17] MEDS: GABAPENTIN 100 MG CAP PO SCH (22:21)
[2019-08-17] MEDS: traZODone 100 MG TAB PO SCH (22:21)
[2019-08-17] MEDS: BACTRIM 160MG/800MG DS TAB PO SCH (22:22)
[2019-08-17] MEDS: SIMVASTATIN 20 MG TAB PO SCH (22:22)
[2019-08-17] MEDS: RAMELTEON 8 MG TAB (ROZEREM) PO SCH (22:22)
[2019-08-18] MEDS: MICONAZOLE 2 % POWDER (DESENEX) TOP SCH ×2 (00:57→08:33)
[2019-08-18] MEDS: SILVER SULFADIAZINE 1% CR 50 GM JAR TOP SCH ×2 (00:57→08:32)
[2019-08-18] MEDS: oxyCODONE 5MG TAB PO PRN ×2 (00:58→14:50)
[2019-08-18 06:00] VITALS: BP 138/76
[2019-08-18] MEDS: LEVOTHYROXINE 125MCG TABLET (0.125MG) PO SCH (06:22)
[2019-08-18] MEDS: FAMOTIDINE 20 MG TAB PO SCH (08:31)
[2019-08-18] MEDS: MIDODRINE 5 MG TAB PO SCH ×2 (08:31→12:21)
[2019-08-18] MEDS: CALCIUM ACETATE 667 MG GELCAP PO SCH ×2 (08:31→12:21)
[2019-08-18] MEDS: HumaLOG INSULIN (NovoLOG) PER UNIT SC SCH ×2 (08:31→12:22)
[2019-08-18] MEDS: LIDOCAINE 5% (LIDODERM) PATCH TD SCH ×2 (08:31→08:51)
[2019-08-18] MEDS: rOPINIRole 2MG TAB PO SCH (08:31)
[2019-08-18] MEDS: LEVEMIR (INSULIN DETEMIR) 1 UNITS/0.01ML SC SCH (08:32)
[2019-08-18] MEDS: SANTYL OINT 30GM TOP SCH (08:32)
--- NOTE | 2019-08-18 08:59 | IPN ---
DATE OF SERVICE: 08/17/2019 SUBJECTIVE: The patient was seen and examined at the bedside today morning. She was unable to be discharged yesterday because of issues with the wound vacuum-assisted closure (VAC) and physical therapy. The patient's regular dialysis day is today and she will be dialyzed today. She denies any other active complaints. OBJECTIVE: Vital signs: Temperature is 97.4 degrees Fahrenheit, blood pressure 129/61, pulse is 72, respiratory rate of 16, saturating 96% on room air. Intake and output: There is no urine output recorded. Weight in the bed scale is not available. PHYSICAL EXAMINATION: General: The patient is awake, alert, oriented times three, sitting up in the sofa, in no apparent distress. Head and neck exam: Extraocular muscles intact. Pupils equally round and reactive to light. Mucous membranes are moist. Neck is supple. There is no jugular venous distention (JVD). Cardiovascular: S1, S2, regular rate. 1+ edema of the right lower extremity. Respiratory: Chest is clear to auscultation bilaterally. Bilateral equal air entry. No rales or rhonchi. Abdomen: Soft, obese, positive bowel sounds. Moderate amount of ascites is noted. Musculoskeletal: Left below-knee amputation wound VAC and right lower extremity edema. Central nervous system (AUTO INSPECTION SPECIALIST): No focal deficit. Power is 5/5 in bilateral upper extremities. LAB REVIEW: CBC showed WBC 6.6, hemoglobin 9.8, platelets are 124. BMP showed sodium 137, potassium 5.8, chloride 104, bicarbonate 24, BUN 47, creatinine is 5.4, calcium 7.3, phosphorus is 5.9. CURRENT INPATIENT MEDICATIONS: The patient's medications were all reviewed by me. There is no change in the medications today as compared with yesterday. ASSESSMENT/PLAN: 1. End-stage renal disease. The patient's regular dialysis days are Tuesday, Tuesday, Tuesday. She will be dialyzed today according to her schedule. Ultrafiltration goal will be 2 liters as tolerated by blood pressure. 2. Infected left below-knee amputation site stump. The patient gets regular wound VAC changes. She is currently on Bactrim and Levaquin, and she needs to continue the antibiotic until mid August. 3. Anemia in end-stage renal disease. Hemoglobin level is fluctuating close to 10. Continue current dose of Aranesp. Rest of the anemia management will be done as outpatient. 4. Hyperkalemia. The patient will be dialyzed with a 2K bath that will improve the potassium level.
[2019-08-18] MEDS ORDERED: DIPH25CA32 PO (11:10)
[2019-08-18] MEDS ORDERED: OXYCO5TA PO (11:10)
[2019-08-18] MEDS ORDERED: Pill Cutter XX (11:10)
[2019-08-18] MEDS ORDERED: MICR2POW TOP (11:10)
[2019-08-18] MEDS ORDERED: SULF1TAB93 PO (11:10)
[2019-08-18] MEDS ORDERED: LEVA1TAB2 PO (11:10)
[2019-08-18] MEDS ORDERED: MIDO5TA PO (11:10)
[2019-08-18] MEDS: OYSTER SHELL CALCIUM 500 MG TAB PO SCH (12:22)
--- NOTE | 2019-08-18 14:49 | DS.PDOC ---
Discharge Summary General Date of Admission Jun 26, 2019 at 13:56 Date of Discharge 08/18/19 Primary Care Physician: Catracho Pineda MD Attending Physician: EDWIN MARISCAL MD Specialist/Consultants Involve: Lana Fontanez MD Specialist/Consultants Involve Navi Moore MD, nephrology; Maia Grullon MD, nephrology; Chris Estrella MD, Vascular Surgery, Chris Baeza DPM, Podiatry, Moy Negrete MD, Orthopedic surgery Discharge Summary PROCEDURES PERFORMED DURING STAY: 8 paracenteses ADMITTING/DISCHARGE DIAGNOSES: 1. Metabolic encephalopathy 2. Sepsis 3. Hypotension, resolved 4. Left stump cellulitis 5. End stage renal disease 6. End-stage liver disease 7. Interstitial lung disease 8. Diabetes with long-term insulin use 9. Thrombocytopenia 10. Candidal dermatitis COMPLICATIONS/CHIEF COMPLAINT: Altered mental status, lethargy HISTORY OF PRESENT ILLNESS/HOSPITAL COURSE: Patient is a 68-year-old female who presented to the hospital with lethargy and altered mental status. Patient had a below the knee amputation of her left leg due to osteomyelitis in March 2019. Patient was recently discharged from the hospital 2 weeks prior to admission with weakness. Patient was thought to have sepsis secondary to cellulitis of her below the knee amputation stump on the left leg. Patient was started on broad- spectrum antibiotics. During the patient's hospitalization, she continued to get dialysis 3 days a week and continued to get weekly paracentesis. Patient began to improve and on 07/18/2019, patient was deemed ready for discharge and was made ALC status. There was issues with placement. Patient and patient's family did not want the patient to go to a fci for either subacute rehabilitation or long-term placement. There were numerous attempts to get the patient adequately prepared for a transition back to home. Patient's family was having issues getting the house ready for the patient to come back and being able to cover the 24-hour a day 7 day week care that the patient needs. A plan was made with physical therapy in order to get the patient home safely. Patient's wound started becoming more erythematous on 07/28/2019. Patient was started on cefdinir 300 mg 3 times a week after dialysis. Patient was going to be discharged however, the patient's infection started getting worse in her leg and on 07/30/2019, patient was made inpatient status again. Patient was started on linezolid and meropenem. Infectious disease was re-consulted at this time. An MRI of the wound was ordered which showed possible chronic osteomyelitis. Because of this, infectious disease recommended oral linezolid and oral Levaquin . After about 10 days on linezolid, patient's platelets began to decrease to the point where we had her take her off linezolid as that is a known side effect of the medication. Patient was placed on Bactrim at that time. Infectious disease once the patient to take Bactrim once a day and Levaquin 500 mg once every other day until 09/11/2019. On 08/04/2019, patient was deemed again medically ready for discharge and was made ALC. Patient remained in the hospital until a safe home discharge, we set up. On 08/18/2019, a safe home discharge was able to be arranged by discharge planners and physical therapy. Volunteer transport was contacted to pick patient up in the hospital and the patient was ready for discharge and was discharged home on 08/18/2019. DISCHARGE MEDICATIONS: Please see below. ALLERGIES: Please see below. PHYSICAL EXAMINATION ON DISCHARGE: Vitals: (see below) General: No acute distress, laying comfortably in bed. HEENT: Moist mucous membranes. Neck: No JVD or lymphadenopathy Cardiac: RRR, No murmurs Pulm: Clear to auscultation b/l. No wheezing, rhonchi Abd: Patient's abdomen is distended with shifting dullness. No tenderness to palpation Ext: Patient has below the knee amputation on the left leg. The wound is not erythematous and there is no edema. I will VAC is in place. There are small non- erythematous wounds on the right foot. There is no edema in the right leg. LABORATORY DATA: Please see below. IMAGING: A chest x-ray performed on 06/26/2019 showed subtle bilateral airspace disease. Differential diagnosis includes interstitial edema. A CT of the abdomen and pelvis without contrast performed on 06/26/2018 showed lung bases suggesting interstitial edema as well as small pericardial effusion, cirrhosis cannot be excluded moderate amount of ascites and extensive subcutaneous edema throughout the abdomen and pelvis. Scattered diverticuli without obvious acute diverticulitis. No bowel obstruction or free air to suggest perforation. A x-ray of the right knee performed on 06/26/2019 shows moderate trico mpartmental mental arthritic change. No acute fracture dislocation. A CT the head performed without contrast on 06/26/2019 shows age-related atrophy and microvascular ischemic changes. No acute intracranial hemorrhage, infarction, or mass/mass effect. An MRI of the right knee without contrast performed 07/02/2019 showed tear posterior horn of the medial meniscus. Cruciate and collateral ligaments intact. Global chondromalacia most significantly in the medial joint compartment. There appears to be a tiny 2-3 mm joint body in the medial joint compartment. Moderate joint effusion. Prepatellar bursitis. Diffuse nonspecific soft tissue edema. A MRI of the left tibia without contrast performed on 07/31/2019 shows diffuse edema and cellulitis. Moderate joint effusion at the knee. Mild ill-defined high signal on T2 at the distal end of the remaining tibia and fibula could indicate ostium myelitis at these locations. PROGNOSIS: Poor ACTIVITY: As tolerated. DIET: Consistent carbohydrate DISCHARGE PLAN/DISPOSITION: Discharge home with services DISCHARGE INSTRUCTIONS: 1. Follow-up with primary care provider within 5-10 days. 2. Follow-up with infectious disease as scheduled. 3. Follow-up with vascular surgery as scheduled. 4. Call and make an appointment with plastic surgery for possible skin graft. 5. Continue wound VAC changes on Tuesday, , Tuesday. 6. Continue hemodialysis on a Tuesday, Tuesday, Tuesday schedule. 7. Continue weekly paracentesis. 8. Continue with Levaquin 500 milligrams every other day and Bactrim once a day in the afternoon until 09/11/2019. 9. Follow-up with outpatient physical therapy and home health. 10. Return to hospital if symptoms worsen. DISCHARGE CONDITION: Stable. I saw and evaluated the patient. I agree with the findings and plan of care as documented in the documenters note. I spent 45 minutes coordinating this patient's discharge. Vital Signs/I&Os Vital Signs Date Time Temp Pulse Resp B/P (MAP) Pulse Ox O2 Delivery O2 Flow Rate FiO2 08/18/19 06:00 97.9 69 16 138/76 (96) 98 I&O- Last 24 Hours up to 6 AM 08/18/19 06:00 Intake Total 470 ml Output Total 2000 ml Balance -1530 ml Laboratory Data Labs 24H Laboratory Tests 2 08/17/19 17:02: Bedside Glucose (Misc Panel) 76L 08/17/19 20:07: Bedside Glucose (Misc Panel) 180H 08/18/19 05:33: Bedside Glucose (Misc Panel) 135H 08/18/19 11:50: Bedside Glucose (Misc Panel) 142H FSBS Laboratory Tests Test 08/17/19 17:02 08/17/19 20:07 08/18/19 05:33 08/18/19 11:50 Range/Units Bedside Glucose (Misc Panel) 76 180 135 142 83-110 MG/DL Discharge Medications Scheduled Calcium Carbonate (Oyster Shell Calcium) 500 Mg Tablet, 500 MG PO DAILY, (Reported) Duloxetine Hcl (Duloxetine HCl) 30 Mg Cap, 30 MG PO DAILY, (Reported) Gabapentin (Gabapentin) 100 Mg Capsule, 300 MG PO QHS, (Reported) Insulin Detemir (Levemir) 100 Unit/1 Ml Vial, 10 UNITS SC BID, (Reported) Insulin Lispro (Humalog) 100 Unit/Ml Inj, 1 DOSE SC AC, (Reported) PER SLIDING SCALE Levofloxacin (Levaquin) 500 Mg Tablet, 500 MG PO Q48H Levothyroxine Sodium (Synthroid) 125 Mcg Tab, 125 MCG PO DAILY, (Reported) Miconazole Nitrate (Micro-Guard) 85 Gm Powder, 1 DOSE TOP BID Apply powder to affected areas twice a day Midodrine HCl (Midodrine HCl) 5 Mg Tablet, 5 MG PO TID@0800,1200,1600 Mineral Oil/Petrolatum,White (Hydrocerin Cream) 113 Gm Cream..g., 1 DOSE TOP DAILY, (Reported) APPLIES TO RIGHT LOWER EXTREMITIES Pantoprazole Sodium (Pantoprazole Sodium) 40 Mg Tab, 40 MG PO DAILY, (Reported) Ropinirole HCl (Ropinirole HCl) 2 Mg Tab, 6 MG PO BID, (Reported) Silver Sulfadiazine (Ssd) 50 Gm Cream..g., 1 DOSE EXT DAILY, (Reported) USED ON BIG TOE OF RIGHT FOOT Simvastatin (Simvastatin) 20 Mg Tab, 20 MG PO QHS, (Reported) Sulfamethoxazole/Trimethoprim (Sulfamethoxazole-Tmp Ds Tablet) 1 Each Tablet, 1 TAB PO QPM Trazodone HCl (Trazodone HCl) 100 Mg Tablet, 200 MG PO QHS, (Reported) Scheduled PRN Calcium Carbonate (Tums) 500 Mg Chw, 1,000 MG PO PC PRN for HEAR TBURN/INDIGESTION, (Reported) Diphenhydramine HCl (Diphenhydramine HCl) 25 Mg Capsule, 25 MG PO Q4HP PRN for ITCHING Oxycodone HCl (Oxycodone HCl) 5 Mg Tablet, 2.5 MG PO Q12HP PRN for PAIN Take 1/2 tab every 12 hours as needed for pain Patiromer Calcium Sorbitex (Veltassa) 8.4 Gm Pow, 8.4 GM PO ASDIRECTED PRN for MISSING DIALYSIS, (Reported) [Pill Cutter] 1 EACH EA, 1 EACH XX ASDIRECTED PRN for TO SPLIT MEDICATION Allergies Coded Allergies: heparin (Verified Adverse Reaction, Intermediate, Thrombocytopenia, 08/13/19) HIT Ab + 08/10/19 pregabalin (Verified Adverse Reaction, Intermediate, "feeling weird", SI thoughts., 06/07/19) vancomycin (Verified Adverse Reaction, Mild, DIARRHEA, 06/07/19) TOY MANN DO Aug 18, 2019 14:49 EDWIN MARISCAL MD Aug 20, 2019 13:52
--- NOTE | 2019-08-20 09:36 | IPN ---
DATE OF SERVICE: 08/17/2019 Dalila seems to be doing fairly well except for episodes of vomiting. She states she takes too many medications that are very large that make her gag. We reviewed all her medications with her, and she thinks it is possible. We also discontinued probiotics, as these are also pretty large pills. She has no fever or chills. Wound vacuum-assisted closure (VAC) was changed yesterday. Stump looks great. She has decreased pain in the thigh. On physical examination stump granulation tissue, bone exposed less thana cm LABORATORIES: White count is 6.6, hemoglobin 9.8, hematocrit 32.3, platelets 124, 64% neutrophils, 15% lymphocytes, 10% monocytes. Sodium 137, potassium 5.8, chloride 104, bicarbonate 24, BUN 47, creatinine 5.45, glucose 139, calcium 7.3. IMPRESSION: Chronic osteomyelitis of left stump with methicillin-resistant Staphylococcus aureus (MRSA) and Pseudomonas on x-ray. PLAN: To go home tomorrow. She will finish 6 weeks of antibiotic until mid-August. Consider referral to plastic surgery, Dr. Shasha Adams, for possible graft stump to promote faster wound healing. Wound VAC will be changed three times a week with [facility]
--- NOTE | 2019-10-05 12:34 | REP ---
Ultrasound-guided paracentesis The procedure was performed by Lianet Ruby [facility], under the direct supervision of Dr. Rivas. The risks and benefits of the procedure were explained to the patient and informed consent was obtained both verbally and written. Directly prior to the start of the procedure, a formal timeout was completed in the procedure room. Under ultrasound guidance, the largest pocket of fluid in the left flank was localized and skin was marked. The skin was then prepped and draped in a sterile fashion. 10 ml of 1% lidocaine was used as a local anesthetic. Using ultrasound guidance, an 8-Yoruba multi side-hole catheter was inserted using trocar technique. 7,500 mL of clear yellow colored fluid was withdrawn and discarded. The patient tolerated the procedure well and there were no immediate complications. After the appropriate monitored convalescence the patient was discharged from the department. Unreviewed
== END 2019-08-18 15:10 | disposition home health service (06) | DRG 463 ==
LOC: EDBD 10:58 → M ED 10:58 → M ED INP 13:56 → M ICU 15:34 → M MSPAV 06-28 15:08
PROVIDERS: ADMIT Family Medicine; ATTEND Internal Medicine
PROC: 0KBT0ZZ Excision of Left Lower Leg Muscle, Open Approach (ICD-10-PCS; 2019-06-27)
PROC: 0JDQ3ZZ Extraction of Right Foot Subcutaneous Tissue and Fascia, Percutaneous Approach (ICD-10-PCS; 2019-06-27)
PROC: 0JBQ0ZZ Excision of Right Foot Subcutaneous Tissue and Fascia, Open Approach (ICD-10-PCS; principal; 2019-06-27 19:00)
PROC: 30233N1 Transfusion of Nonautologous Red Blood Cells into Peripheral Vein, Percutaneous Approach (ICD-10-PCS; 2019-06-28)
PROC: 0W9G3ZZ Drainage of Peritoneal Cavity, Percutaneous Approach (ICD-10-PCS; 2019-06-29)
PROC: 0W9G3ZZ Drainage of Peritoneal Cavity, Percutaneous Approach (ICD-10-PCS; 2019-07-05)
PROC: 0W9G3ZZ Drainage of Peritoneal Cavity, Percutaneous Approach (ICD-10-PCS; 2019-07-12)
PROC: 0W9G3ZZ Drainage of Peritoneal Cavity, Percutaneous Approach (ICD-10-PCS; 2019-07-19)
PROC: 0W9G3ZZ Drainage of Peritoneal Cavity, Percutaneous Approach (ICD-10-PCS; 2019-07-25)
PROC: 5A1D70Z Performance of Urinary Filtration, Intermittent, Less than 6 Hours Per Day (ICD-10-PCS; 2019-07-30)
PROC: 0W9G3ZZ Drainage of Peritoneal Cavity, Percutaneous Approach (ICD-10-PCS; 2019-07-31)
PROC: 0W9G3ZZ Drainage of Peritoneal Cavity, Percutaneous Approach (ICD-10-PCS; 2019-08-07)
DX: T87.44 Infection of amputation stump, left lower extremity (principal); A41.9 Sepsis, unspecified organism; N18.6 End stage renal disease; G93.41 Metabolic encephalopathy; I13.2 Hypertensive heart and chronic kidney disease with heart failure and with stage 5 chronic kidney disease, or end stage renal disease; I50.32 Chronic diastolic (congestive) heart failure; R18.8 Other ascites; E46 Unspecified protein-calorie malnutrition; E87.1 Hypo-osmolality and hyponatremia; M86.662 Other chronic osteomyelitis, left tibia and fibula; L03.116 Cellulitis of left lower limb; K74.69 Other cirrhosis of liver; K72.90 Hepatic failure, unspecified without coma; E11.621 Type 2 diabetes mellitus with foot ulcer; D69.59 Other secondary thrombocytopenia; L89.152 Pressure ulcer of sacral region, stage 2; L30.4 Erythema intertrigo; L89.899 Pressure ulcer of other site, unspecified stage; Z79.4 Long term (current) use of insulin; I95.9 Hypotension, unspecified; Z79.899 Other long term (current) drug therapy; Z88.8 Allergy status to other drugs, medicaments and biological substances; I25.10 Atherosclerotic heart disease of native coronary artery without angina pectoris; E03.9 Hypothyroidism, unspecified; D63.1 Anemia in chronic kidney disease; E11.51 Type 2 diabetes mellitus with diabetic peripheral angiopathy without gangrene; F41.9 Anxiety disorder, unspecified; F32.9 Major depressive disorder, single episode, unspecified; Z95.2 Presence of prosthetic heart valve; I25.2 Old myocardial infarction; E11.319 Type 2 diabetes mellitus with unspecified diabetic retinopathy without macular edema; L97.519 Non-pressure chronic ulcer of other part of right foot with unspecified severity; M70.41 Prepatellar bursitis, right knee; L29.9 Pruritus, unspecified; J84.10 Pulmonary fibrosis, unspecified; E87.70 Fluid overload, unspecified; G25.81 Restless legs syndrome; E87.5 Hyperkalemia; E11.43 Type 2 diabetes mellitus with diabetic autonomic (poly)neuropathy; E83.39 Other disorders of phosphorus metabolism; G47.00 Insomnia, unspecified; B95.61 Methicillin susceptible Staphylococcus aureus infection as the cause of diseases classified elsewhere; B96.5 Pseudomonas (aeruginosa) (mallei) (pseudomallei) as the cause of diseases classified elsewhere; Y83.5 Amputation of limb(s) as the cause of abnormal reaction of the patient, or of later complication, without mention of misadventure at the time of the procedure

== ENCOUNTER → 2019-08-23 | Outpatient (CLI) | payer MEDICARE ==
[~2019-08-23] MED LIST changes: +DIPH25CA32 PO; +LEVA1TAB2 PO; +MICR2POW TOP; +MIDO5TA PO; -ONDA-83; -ONDA-83 PO; +ONDA4TAB5; +ONDA4TAB5 PO; +OXYCO5TA PO; +OYST500T7 PO; +Pill Cutter XX; -SENN-53 PO; +SENN1TAB40 PO; +SIMV20TA2 PO; -SIMV20TA22 PO; +SULF1TAB93 PO; +TRAZ-163 PO; -TRAZ-257 PO; +TRAZ10TA PO; -TRAZ1TAB12 PO
[2019-08-23 12:04] VITALS: BP 100/47
--- NOTE | 2019-08-23 13:42 | REP ---
Ultrasound-guided paracentesis The procedure was performed by ANTONIO Sierra, under the direct supervision of Dr. Rivas. The risks and benefits of the procedure were explained to the patient and informed consent was obtained both verbally and written. Directly prior to the start of the procedure, a formal timeout was completed in the procedure room. Under ultrasound guidance, the largest pocket of fluid in the left flank was localized and skin was marked. The skin was then prepped and draped in a sterile fashion. 10 ml of 1% lidocaine was used as a local anesthetic. Using ultrasound guidance, an 8-Belarusian multi side-hole catheter was inserted using trocar technique. 5,300 mL of clear yellow colored fluid was withdrawn and discarded. The patient tolerated the procedure well and there were no immediate complications. After the appropriate monitored convalescence the patient was discharged from the department. Reviewed by ANTONIO Song 08/23/2019 12:47 P Electronically Signed by Aureliano Rivas MD 08/23/2019 01:32 P
== END ==
LOC: M IRPRO 10:42
PROVIDERS: ATTEND Internal Medicine Nephrology
DX: R18.8 Other ascites (principal); N18.6 End stage renal disease; I50.32 Chronic diastolic (congestive) heart failure

== ENCOUNTER → 2019-08-30 | Outpatient (CLI) | payer MEDICARE ==
[2019-08-30 12:38] VITALS: BP 128/58
--- NOTE | 2019-08-30 17:41 | REP ---
Ultrasound-guided paracentesis The procedure was performed under the direct supervision of Dr. Rivas. The risks and benefits of the procedure were explained to the patient and informed consent was obtained. The largest pocket of fluid was localized in the left lower quadrant using ultrasound guidance. The skin was prepped and draped in a sterile fashion. 1% lidocaine was used as a local anesthetic. An 8-Norwegian multi side-hole catheter was inserted using trocar technique. 6000 ml of yellow fluid was withdrawn and discarded. The patient tolerated the procedure well and there were no immediate complications. After the appropriate amount of monitored convalescence the patient was discharged from the department. Electronically Signed by ANTONIO Curiel 08/30/2019 01:30 P Electronically Signed by Aureliano Rivas MD 08/30/2019 05:31 P
== END ==
LOC: M IRPRO 09:49
PROVIDERS: ATTEND Internal Medicine Nephrology
DX: N18.6 End stage renal disease (principal); R18.8 Other ascites; I50.32 Chronic diastolic (congestive) heart failure

== ENCOUNTER → 2019-09-05 | Outpatient (REF) | payer MEDICARE ==
[~2019-09-05] MED LIST changes: +SENN-53 PO; -SENN1TAB40 PO
== END ==
LOC: M LAB REF 13:43
PROVIDERS: ATTEND Surgery
DX: L97.812 Non-pressure chronic ulcer of other part of right lower leg with fat layer exposed (principal)

== ENCOUNTER → 2019-09-06 | Outpatient (CLI) | payer MEDICARE ==
[~2019-09-06] MED LIST changes: +ONDA-83; +ONDA-83 PO; -ONDA4TAB5; -ONDA4TAB5 PO; +OXYC-517 PO; -SIMV20TA2 PO; +SIMV20TA22 PO; -TRAZ-163 PO; +TRAZ-257 PO; -TRAZ10TA PO; +TRAZ1TAB12 PO
[2019-09-06 11:06] VITALS: BP 136/62
--- NOTE | 2019-09-07 09:16 | REP ---
Ultrasound-guided paracentesis The procedure was performed under the direct supervision of Dr. Rivas. The risks and benefits of the procedure were explained to the patient and informed consent was obtained. The largest pocket of fluid was localized in the left flank using ultrasound guidance. The skin was prepped and draped in a sterile fashion. 1% lidocaine was used as a local anesthetic. An 8-Greek multi side-hole catheter was inserted using trocar technique. 6050 ml of cloudy yellow fluid was withdrawn and discarded. The patient tolerated the procedure well and there were no immediate complications. After the appropriate amount of monitored convalescence the patient was discharged from the department. Electronically Signed by ANTONIO Curiel 09/06/2019 02:56 P Electronically Signed by Aureliano Rivas MD 09/07/2019 09:07 A
== END ==
LOC: M IRPRO 10:02
PROVIDERS: ATTEND Internal Medicine Nephrology
DX: R18.8 Other ascites (principal); N18.6 End stage renal disease; I50.32 Chronic diastolic (congestive) heart failure; Z97.4 Presence of external hearing-aid; Z79.891 Long term (current) use of opiate analgesic; Z79.899 Other long term (current) drug therapy

== ENCOUNTER → 2019-09-06 | Outpatient (CLI) | payer MEDICARE ==
[~2019-09-06] MED LIST changes: +ISOVUE-370 76% 100ML VIAL (Q9967) As Ordered ONE; -ONDA-83; -ONDA-83 PO; +ONDA4TAB5; +ONDA4TAB5 PO; +TRAZ-163 PO; -TRAZ-257 PO; +TRAZ10TA PO; -TRAZ1TAB12 PO
--- NOTE | 2019-09-06 14:07 | REP ---
CT ANGIOGRAM OF ABDOMINAL AORTA AND BILATERAL LOWER EXTREMITIES: CT abdominal aorta and bilateral lower extremities performed following the intravenous administration of 100 mL of Isovue 370. Sagittal, coronal, and 3D MIP reconstruction images are performed. Visualized lungs bases demonstrate no acute infiltrate. Heart is mildly enlarged. Liver demonstrates no mass. A couple of calcified granulomas are seen in the left lobe. Calcified granulomas are seen in the spleen. Spleen is mildly enlarged at 13.3 cm in length. Adrenals and pancreas appear unremarkable. Kidneys are small in size with no hydronephrosis. I see no significant adenopathy. There is no free air. Prominent soft tissue ulcer is seen of the posterior lateral right lower leg distally. The patient has had prior below the knee amputation on the left. At the distal end of the left tibia and fibula there is periosteal reaction which may indicate chronic osteomyelitis. Mild diffuse free fluid is seen in the abdomen and pelvis. Gallstones are seen in the gallbladder. No definite bowel abnormality is seen. There is diffuse mesenteric edema. There is also diffuse edema in the subcutaneous soft tissues of the abdomen, pelvis, and bilateral lower extremities. The abdominal aorta demonstrates moderate diffuse calcific plaque. There is no aneurysm. There is mild narrowing at the origin of the celiac and superior mesenteric arteries. Inferior mesenteric artery is patent. There is at least a moderate degree of bilateral renal artery stenosis at the origin of each main renal artery. On the right the common iliac artery demonstrates mild narrowing with no stenosis. There is moderate narrowing at the origin of the right internal iliac artery. The right external iliac artery and right common femoral artery demonstrate moderate diffuse plaquing and narrowing without focal stenosis. Right profunda is patent. Right superficial femoral artery demonstrates mild narrowing at its origin. There are mild to moderate scattered diffuse narrowing diffusely. Moderate stenosis is seen in the adductor canal of the distal right superficial femoral artery. The right popliteal artery demonstrates mild diffuse narrowing. Contrast opacification in the right lower leg is suboptimal, but there do appear to be patent thin right anterior tibial and peroneal arteries traversing into the right foot. I do not see a patent posterior tibial artery. On the left there is mild narrowing at the origin of the common iliac artery. There is also mild narrowing distally of the common iliac artery as well as at the origin of the left internal iliac artery. Left external iliac artery demonstrates mild diffuse plaquing and narrowing as does the common femoral artery. The left profunda is patent. Left superficial femoral artery demonstrates mild to moderate narrowing proximally and variable degree of moderate narrowing more distally diffusely. Right popliteal artery is mildly narrowed diffusely. Proximal left anterior tibial artery is patent proximally, but becomes significantly stenotic a few centimeters distal to its origin. The [place] peroneal and posterior tibial arteries are extremely thin. IMPRESSION: Mild diffuse mesenteric edema and mild diffuse abdominal and pelvic ascites. Diffuse subcutaneous soft tissue edema. Gallstones in the gallbladder. Small size of bilateral kidneys. There is at least a moderate degree of bilateral renal artery stenosis. There is mild to moderate narrowing at the origins of the mesenteric arteries. Mild to moderate diffuse narrowing of the bilateral lower extremity arterial systems as discussed above, predominantly involving superficial femoral arteries bilaterally. There is focal moderate stenosis of the distal right superficial femoral artery in the adductor canal. Right posterior tibial artery is not visualized and is presumably occluded. There does appear to be two vessel run off of anterior tibial and peroneal arteries into the right foot. Mild to moderate multifocal narrowing diffusely of the left superficial femoral artery. Electronically Signed by Aureliano Rivas MD 09/11/2019 09:00 A
== END ==
LOC: M RAD 09:58
PROVIDERS: ATTEND Surgery
DX: L97.812 Non-pressure chronic ulcer of other part of right lower leg with fat layer exposed (principal); T87.89 Other complications of amputation stump; T14.8XXA Other injury of unspecified body region, initial encounter; I70.0 Atherosclerosis of aorta; K80.20 Calculus of gallbladder without cholecystitis without obstruction; R18.8 Other ascites; I70.1 Atherosclerosis of renal artery; K55.1 Chronic vascular disorders of intestine; Y83.5 Amputation of limb(s) as the cause of abnormal reaction of the patient, or of later complication, without mention of misadventure at the time of the procedure
CPT/HCPCS: 75635; 96374; Q9967

== ENCOUNTER → 2019-09-11 | Outpatient (POV) | payer MEDICARE ==
[~2019-09-11] VITALS: Ht 154.9 cm; Wt 73.6 kg
[~2019-09-11] MED LIST changes: -ISOVUE-370 76% 100ML VIAL (Q9967) As Ordered ONE; -OXYC-517 PO; -SENN-53 PO; +SENN1TAB40 PO; +SIMV20TA2 PO; -SIMV20TA22 PO
[2019-09-11 13:40] VITALS: BP 155/80
--- NOTE | 2019-09-12 10:49 | IRCOV ---
[facility] IR Consult Office Visit IR Consult Office Visit DATE: Sep 11, 2019 REASON FOR CONSULTATION/CHIEF COMPLAINT: Nonhealing left below-knee amputation. Nonhealing right lower extremity wounds. 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 HISTORY OF PRESENT ILLNESS: 68-year-old female with diabetes, hyperlipidemia, coronary artery disease and peripheral vascular disease status post below knee left lower extremity amputation for infected nonhealing wound. Presents with nonhealing left lower extremity amputation site as well as as nonhealing right lower extremity wounds over the lateral malleolus and bottom of the big toe. Patient is wheelchair bound. Denies rest pain. Denies chest pain, shortness of breath, orthopnea or paroxysmal nocturnal dyspnea. Patient does have end-stage kidney disease and is on dialysis. Patient also has end-stage liver disease for which she has refractory ascites requiring frequent paracentesis. She is very upset about the frequency of fluid buildup and never feels complete relief after the paracentesis. Denies history of hematemesis or melena. Denies history of encephalopathy or jaundice. She is not on lactulose but does take Imodium and has 3 frequent loose stools per day. ALLERGIES: Please see below. HOME MEDICATIONS: Please see below. PAST MEDICAL HISTORY: End-stage renal disease on dialysis End-stage liver disease; frequent paracentesis Type 2 diabetes Chronic anemia Peripheral vascular disease Coronary artery disease status post 4 stents in heart Heart failure with preserved ejection fraction. Hypothyroidism Hypertension Dyslipidemia Depression and anxiety PAST SURGICAL HISTORY: Left below-knee amputation Left AV fistula Appendectomy Hysterectomy Cataract FAMILY HISTORY: Noncontributory. SOCIAL HISTORY: Nonsmoker no alcohol no drugs. REVIEW OF SYSTEMS: Otherwise negative PHYSICAL EXAMINATION: VITAL SIGNS: Please see below. GENERAL APPEARANCE: Appears well. Comfortable at rest. HEENT: No scleral icterus. RESPIRATORY: Symmetric breath sounds. CARDIOVASCULAR: Systolic murmur. ABDOMEN: Distended. Nontender. EXTREMITIES: Left lower extremity: Below-knee amputation. Edema, tender. Right lower extremity: Edema to the thighs. Tense. Nontender. Warm to touch. Hairless. NEUROLOGICAL: Alert and oriented. PSYCHIATRIC: Appropriate to circumstance. LABORATORY DATA: 08/17/2019 hemoglobin 9.8 WBC 6.6 hematocrit 32.3 platelets 124 sodium 137 potassium 5.8 BUN 47 creatinine 5.45 GFR 8.2 total bilirubin 0.4 AST 19 ALP 31 ALP 351 ammonia 19 albumin 1.7 07/31/2019 INR 1.17 MELD NA 23 Imaging: I personally reviewed the CTA from August 2019. Patent aortoiliac segments. There is bilateral moderate superficial femoral artery disease with stenosis. Popliteal artery is patent. Venous contamination below the knee precludes evaluation of the runoff vessels. There is mild ascites. Liver is nodular in contour in keeping with cirrhosis. There is splenomegaly. Echo May 2019: Normal right heart size and motion. ASSESSMENT/PLAN: 1. 68-year-old female with peripheral arterial disease, nonhealing left below-knee amputation and nonhealing right lower extremity wounds. There is SFA disease on the CT, below-knee runoff is not well evaluated. We will schedule the patient for left followed by right lower extremity angiogram and intervention under moderate sedation. 2. End-stage liver disease with refractory ascites and frequent paracentesis. We discussed options for TIPS procedure as the literature supports improved overall transplant free survival in patients with refractory ascites. We discussed the risks and benefits of the procedure. Patient would like to proceed. We will get the patient evaluated by anesthesia and schedule this procedure. Patient will also be referred to gastroenterology for ongoing management of end-stage liver disease and endoscopy. I spent 30 minutes in consultation with the patient. Thank you for this referral. Allergies Coded Allergies: heparin (Verified Adverse Reaction, Intermediate, Thrombocytopenia, 08/13/19) HIT Ab + 08/10/19 pregabalin (Verified Adverse Reaction, Intermediate, "feeling weird", SI thoughts., 06/07/19) vancomycin (Verified Adverse Reaction, Mild, DIARRHEA, 06/07/19) Home Medications Scheduled Calcium Carbonate (Oyster Shell Calcium), 500 MG PO DAILY, (Reported) Duloxetine Hcl (Duloxetine HCl), 30 MG PO DAILY, (Reported) Gabapentin (Gabapentin), 300 MG PO QHS, (Reported) Insulin Detemir (Levemir), 10 UNITS SC BID, (Reported) Insulin Lispro (Humalog), 1 DOSE SC AC, (Reported) Levofloxacin (Levaquin), 500 MG PO Q48H Levothyroxine Sodium (Synthroid), 125 MCG PO DAILY, (Reported) Miconazole Nitrate (Micro-Guard), 1 DOSE TOP BID Midodrine HCl (Midodrine HCl), 5 MG PO TID@0800,1200,1600 Mineral Oil/Petrolatum,White (Hydrocerin Cream), 1 DOSE TOP DAILY, (Reported) Pantoprazole Sodium (Pantoprazole Sodium), 40 MG PO DAILY, (Reported) Ropinirole HCl (Ropinirole HCl), 6 MG PO BID, (Reported) Silver Sulfadiazine (Ssd), 1 DOSE EXT DAILY, (Reported) Simvastatin (Simvastatin), 20 MG PO QHS, (Reported) Sulfamethoxazole/Trimethoprim (Sulfamethoxazole-Tmp Ds Tablet), 1 TAB PO QPM Trazodone HCl (Trazodone HCl), 200 MG PO QHS, (Reported) Scheduled PRN Calcium Carbonate (Tums), 1,000 MG PO PC PRN for HEARTBURN/INDIGESTION, (Reported) Diphenhydramine HCl (Diphenhydramine HCl), 25 MG PO Q4HP PRN for ITCHING Oxycodone HCl (Oxycodone HCl), 2.5 MG PO Q12HP PRN for PAIN Patiromer Calcium Sorbitex (Veltassa), 8.4 GM PO ASDIRECTED PRN for MISSING DIALYSIS, (Reported) [Pill Cutter], 1 EACH XX ASDIRECTED PRN for TO SPLIT MEDICATION VS, I&O, 24H, Fishbone Vital Signs/I&O Vital Signs Date Time Temp Pulse Resp B/P (MAP) Pulse Ox O2 Delivery O2 Flow Rate FiO2 09/11/19 13:40 97.0 79 16 155/80 (105) 96 AMANDA HICKEY MD Sep 12, 2019 10:48
== END ==
LOC: M IRPOV 13:25
PROVIDERS: ATTEND Radiology Diagnostic Radiology
DX: L97.819 Non-pressure chronic ulcer of other part of right lower leg with unspecified severity (principal); T81.89XA Other complications of procedures, not elsewhere classified, initial encounter; I12.0 Hypertensive chronic kidney disease with stage 5 chronic kidney disease or end stage renal disease; E11.51 Type 2 diabetes mellitus with diabetic peripheral angiopathy without gangrene; E11.22 Type 2 diabetes mellitus with diabetic chronic kidney disease; N18.6 End stage renal disease; E78.5 Hyperlipidemia, unspecified; I25.10 Atherosclerotic heart disease of native coronary artery without angina pectoris; I73.9 Peripheral vascular disease, unspecified; K72.90 Hepatic failure, unspecified without coma; R18.8 Other ascites; D64.9 Anemia, unspecified; E03.9 Hypothyroidism, unspecified; F41.9 Anxiety disorder, unspecified; F32.9 Major depressive disorder, single episode, unspecified; X58.XXXA Exposure to other specified factors, initial encounter; Y93.9 Activity, unspecified; Y92.9 Unspecified place or not applicable; Y99.9 Unspecified external cause status; Z88.1 Allergy status to other antibiotic agents; Z88.8 Allergy status to other drugs, medicaments and biological substances; Z79.899 Other long term (current) drug therapy; Z79.4 Long term (current) use of insulin; Z99.3 Dependence on wheelchair; Z99.2 Dependence on renal dialysis; Z95.5 Presence of coronary angioplasty implant and graft; Z96.1 Presence of intraocular lens; Z90.710 Acquired absence of both cervix and uterus; Z95.828 Presence of other vascular implants and grafts

== ENCOUNTER → 2019-09-13 | Outpatient (CLI) | payer MEDICARE ==
[~2019-09-13] MED LIST changes: +SENN-53 PO; -SENN1TAB40 PO
[2019-09-13 14:55] VITALS: BP 120/59
--- NOTE | 2019-09-13 18:26 | REP ---
Ultrasound-guided paracentesis The procedure was performed by ANTONIO Sierra, under the direct supervision of Dr. Martinez. The risks and benefits of the procedure were explained to the patient and informed consent was obtained both verbally and written. Directly prior to the start of the procedure, a formal timeout was completed in the procedure room. Under ultrasound guidance, the largest pocket of fluid in the left flank was localized and skin was marked. The skin was then prepped and draped in a sterile fashion. 10 ml of 1% lidocaine was used as a local anesthetic. Using ultrasound guidance, an 8-Bulgarian multi side-hole catheter was inserted using trocar technique. 7,000 mL of dark yellow colored fluid was withdrawn and discarded. The patient tolerated the procedure well and there were no immediate complications. After the appropriate monitored convalescence the patient was discharged from the department. Reviewed by ANTONIO Song 09/13/2019 02:45 P Electronically Signed by Vel Martinez MD 09/13/2019 06:17 P
== END ==
LOC: M IRPRO 10:30
PROVIDERS: ATTEND Internal Medicine Nephrology
DX: N18.6 End stage renal disease (principal); R18.8 Other ascites; I50.32 Chronic diastolic (congestive) heart failure

== ENCOUNTER → 2019-09-19 | Outpatient (REF) | payer MEDICARE ==
[~2019-09-19] MED LIST changes: +OXYC-517 PO
== END ==
LOC: M LAB REF 12:25
PROVIDERS: ATTEND Surgery
DX: L97.514 Non-pressure chronic ulcer of other part of right foot with necrosis of bone (principal)

== ENCOUNTER → 2019-09-20 | Outpatient (CLI) | payer MEDICARE ==
[~2019-09-20] MED LIST changes: -OXYC-517 PO
[2019-09-20 11:59] VITALS: BP 114/60
--- NOTE | 2019-09-22 17:48 | REP ---
Ultrasound-guided paracentesis The procedure was performed by ANTONIO Sierra, under the direct supervision of Dr. Rivas. The risks and benefits of the procedure were explained to the patient and informed consent was obtained both verbally and written. Directly prior to the start of the procedure, a formal timeout was completed in the procedure room. Under ultrasound guidance, the largest pocket of fluid in the left flank was localized and skin was marked. The skin was then prepped and draped in a sterile fashion. 10 ml of 1% lidocaine was used as a local anesthetic. Using ultrasound guidance, an 8-Icelandic multi side-hole catheter was inserted using trocar technique. 7,150 mL of yellow colored fluid was withdrawn and discarded. The patient tolerated the procedure well and there were no immediate complications. After the appropriate monitored convalescence the patient was discharged from the department. Reviewed by ANTONIO Song 09/20/2019 02:08 P Electronically Signed by Aureliano Rivas MD 09/22/2019 05:39 P
== END ==
LOC: M IRPRO 10:26
DX: N18.6 End stage renal disease (principal); R18.8 Other ascites; I50.32 Chronic diastolic (congestive) heart failure

== ENCOUNTER → 2019-09-27 | Outpatient (CLI) | payer MEDICARE ==
[~2019-09-27] MED LIST changes: +HEPARIN 1,000 UNITS/ML 10ML VIAL (FOR RADIOLOGY& DIALYSIS ONLY) As Ordered ONE; +ISOVUE-300 61% 50ML VIAL (Q9967) As Ordered ONE; +LIDOCAINE 1% MDV 20ML VIAL As Ordered ONE; +MIDAZOLAM INJ 2 MG/2 ML VIAL (J2250) As Ordered ONE; +OXYC-517 PO; +diphenhydrAMINE INJ 50MG/ML VIAL (J1200) As Ordered ONE; +fentaNYL 100 MCG/2 ML INJECTION (J3010) As Ordered ONE
--- NOTE | 2019-09-27 12:17 | IRHP ---
[facility] IR Pre-Procedure H & P General Date of Service: Sep 27, 2019 Procedure: Same Day Surgery Interval History and Physical I have seen the patient and reviewed last H & P performed within 30 days. There is no significant interval change. History of Present Illness Chief Complaint The patient is a 68-year-old female admitted with a reason for visit of PAD. PRE-PROCEDURE DIAGNOSIS: PAD HEART: normal rate. LUNGS: normal breathing at rest. ASA Classification ASA Classification: III-Severe systemic dis. Mallampati Score: I NPO: Yes Problems with prior sedation: No Obstructive Sleep Apnea: No Plan moderate sedation Allergies Coded Allergies: heparin (Verified Adverse Reaction, Intermediate, Thrombocytopenia, 08/13/19) HIT Ab + 08/10/19 pregabalin (Verified Adverse Reaction, Intermediate, "feeling weird", SI thoughts., 06/07/19) vancomycin (Verified Adverse Reaction, Mild, DIARRHEA, 06/07/19) Home Medications Scheduled Calcium Carbonate (Oyster Shell Calcium), 500 MG PO DAILY, (Reported) Duloxetine Hcl (Duloxetine HCl), 30 MG PO DAILY, (Reported) Gabapentin (Gabapentin), 300 MG PO QHS, (Reported) Insulin Detemir (Levemir), 10 UNITS SC BID, (Reported) Insulin Lispro (Humalog), 1 DOSE SC AC, (Reported) Levothyroxine Sodium (Synthroid), 125 MCG PO DAILY, (Reported) Miconazole Nitrate (Micro-Guard), 1 DOSE TOP BID Midodrine HCl (Midodrine HCl), 5 MG PO TID@0800,1200,1600 Mineral Oil/Petrolatum,White (Hydrocerin Cream), 1 DOSE TOP DAILY, (Reported) Pantoprazole Sodium (Pantoprazole Sodium), 40 MG PO DAILY, (Reported) Ropinirole HCl (Ropinirole HCl), 6 MG PO BID, (Reported) Silver Sulfadiazine (Ssd), 1 DOSE EXT DAILY, (Reported) Simvastatin (Simvastatin), 20 MG PO QHS, (Reported) Trazodone HCl (Trazodone HCl), 200 MG PO QHS, (Reported) Scheduled PRN Calcium Carbonate (Tums), 1,000 MG PO PC PRN for HEARTBURN/INDIGESTION, (Reported) Diphenhydramine HCl (Diphenhydramine HCl), 25 MG PO Q4HP PRN for ITCHING Oxycodone HCl (Oxycodone HCl), 2.5 MG PO Q12HP PRN for PAIN Patiromer Calcium Sorbitex (Veltassa), 8.4 GM PO ASDIRECTED PRN for MISSING DIALYSIS, (Reported) [Pill Cutter], 1 EACH XX ASDIRECTED PRN for TO SPLIT MEDICATION Discontinued Medications Levofloxacin (Levaquin), 500 MG PO Q48H Discontinued Reason: PCP discontinued med Sulfamethoxazole/Trimethoprim (Sulfamethoxazole-Tmp Ds Tablet), 1 TAB PO QPM Discontinued Reason: PCP discontinued AMANDA Valadez MD Sep 27, 2019 12:17
--- NOTE | 2019-09-27 13:33 | POST-OPPD ---
Postoperative Procedure Note Date Of Procedure: Sep 27, 2019 Time Of Procedure: 13:32 PREOPERATIVE DIAGNOSIS: PAD . right big toe ischemia POSTOPERATIVE DIAGNOSIS: PAD . right big toe ischemia FINDINGS: patent SFA, popliteal. two vessel run off to foot. see full report under imaging tab PROCEDURE: right leg angio SURGEON: reed ANESTHESIA: mod sed ESTIMATED BLOOD LOSS: < 5 ml COMPLICATIONS: none POSTOPERATIVE CONDITION: stable AMANDA HICKEY MD Sep 27, 2019 13:33
--- NOTE | 2019-09-27 16:14 | REP ---
IR right leg angiogram. IR fluoroscopy guided left femoral artery access. IR diagnostic right leg below knee runoff. IR moderate sedation. Clinical Information: Non healing right lower extremity wounds. Physician: Dr Henriquez. Referring physician: Dr. Osorio.Procedure: The patient was advised of the benefits, risks, and alternatives of the procedure and informed consent was obtained.A time out was performed with verification of the patient's name, MRN, site of procedure, and type of procedure to be performed. The patient was positioned in the supine position on the angiographic table. The site was prepped and draped in the usual sterile fashion.Moderate sedation was performed by the physician including the presence of an independent trained observer who assisted in monitoring the patient's level of consciousness and physiological status. Following the administration of Fentanyl and Versed, the physician spent 60 minutes of continuous [id number] time with the patient. A any commodity sales deliverer radiograph reveals no gross abnormality. The left femoral artery was accessed with a micropuncture kit. A eMazeMe wire was advanced into the aorta. The micropuncture sheath was exchanged over the wire for a a 6-Syrian vascular sheath. A 5-Syrian flush catheter was advanced over the wire and used to catheterize the abdominal aorta. A pelvic arteriogram was performed and this demonstrates patent right common iliac, internal and external iliac artery. Patent right common femoral, profunda femoris and superficial femoral artery. A Glidewire was advanced through the flush catheter and used to gain up and over access into the right external iliac artery. The catheter was removed over the wire, under fluoroscopy guidance and exchanged for a 4-Syrian glide cath. The glide cath was advanced over the wire into the right superficial femoral artery. An arteriogram was performed with the catheter in this location and this demonstrates patent superficial femoral artery. No dissection, spasm, significant thrombus or stenosis. An arteriogram further down the leg was performed and this demonstrates patent distal superficial femoral artery, patent popliteal artery and proximal anterior and posterior tibial arteries. A diagnostic below-knee runoff arteriogram was performed and this demonstrates good two large vessel runoff all the way into the right foot. No vessel cutoff. No distal emboli. The catheter was removed. A 6-Syrian Mynx device was used to close the left groin arteriotomy and the sheath was removed. Hemostasis achieved. A sterile dressing was applied to the site. Patient tolerated the procedure well and was transferred to PRU in stable condition. Complications: None. Estimated blood loss: Less than 5 ml. Impression: 1. Pelvic arteriogram demonstrates patent right common iliac, external iliac, internal iliac and common femoral artery. 2. Right leg angiogram demonstrates patent right profunda femoris, superficial femoral, popliteal, anterior and posterior tibial artery with good 2 vessel runoff all the way into the right foot. 3. Patient to follow-up for left leg angiogram. Thank you for this referral. Electronically Signed by Juli Henriquez MD 09/27/2019 04:13 P
[2019-09-27 17:15] VITALS: BP 110/52
== END ==
LOC: M IRPRO 10:38
PROVIDERS: ATTEND Radiology Diagnostic Radiology
DX: I73.9 Peripheral vascular disease, unspecified (principal); L97.919 Non-pressure chronic ulcer of unspecified part of right lower leg with unspecified severity; Z88.1 Allergy status to other antibiotic agents; Z88.8 Allergy status to other drugs, medicaments and biological substances; Z79.899 Other long term (current) drug therapy; N18.6 End stage renal disease; R18.8 Other ascites; I50.32 Chronic diastolic (congestive) heart failure
CPT/HCPCS: 36247; 49083; 75710; 96365; 99152; 99153; C1760; C1769; C1887; C1894; G0269; J2250; J3010; P9047; Q9967

== ENCOUNTER → 2019-09-27 | Outpatient (CLI) | payer MEDICARE ==
[~2019-09-27] MED LIST changes: -HEPARIN 1,000 UNITS/ML 10ML VIAL (FOR RADIOLOGY& DIALYSIS ONLY) As Ordered ONE; -ISOVUE-300 61% 50ML VIAL (Q9967) As Ordered ONE; -LIDOCAINE 1% MDV 20ML VIAL As Ordered ONE; -MIDAZOLAM INJ 2 MG/2 ML VIAL (J2250) As Ordered ONE; -diphenhydrAMINE INJ 50MG/ML VIAL (J1200) As Ordered ONE; -fentaNYL 100 MCG/2 ML INJECTION (J3010) As Ordered ONE
[2019-09-27 12:00] VITALS: BP 103/55
--- NOTE | 2019-09-27 14:45 | REP ---
Ultrasound-guided paracentesis The procedure was performed under the direct supervision of Dr. Rivas. The risks and benefits of the procedure were explained to the patient and informed consent was obtained. The largest pocket of fluid was localized in the left flank using ultrasound guidance. The skin was prepped and draped in a sterile fashion. 1% lidocaine was used as a local anesthetic. An 8-Macedonian multi side-hole catheter was inserted using trocar technique. 5700 ml of yellow fluid was withdrawn and discarded. The patient tolerated the procedure well and there were no immediate complications. After the appropriate amount of monitored convalescence the patient was discharged from the department. Electronically Signed by ANTONIO Curiel 09/27/2019 12:15 P Electronically Signed by Aureliano Rivas MD 09/27/2019 02:35 P
== END ==
LOC: M IRPRO 10:34
PROVIDERS: ATTEND Internal Medicine Nephrology
DX: N18.6 End stage renal disease (principal); R18.8 Other ascites; I50.32 Chronic diastolic (congestive) heart failure

== ENCOUNTER 2019-10-03 10:50 | Inpatient (IN) | payer MEDICARE ==
[~2019-10-03] VITALS: Ht 157.5 cm; Wt 65.1 kg
[~2019-10-03 10:50] MED LIST changes: -OXYC-517 PO; +OYSTER SHELL CALCIUM 500 MG TAB PO SCH; -SIMV20TA2 PO; +SIMV20TA22 PO
[2019-10-03 11:39] LABS: BASO # 0.1 10^3/uL (0.0-0.2); BASO % 0.6 % (0.0-1.0); EOS # 0.4 10^3/uL (0.0-0.5); EOS % 3.8 % (0.0-3.0); HEMATOCRIT 30.5 % (36.0-47.0); HEMOGLOBIN 9.4 g/dl (12.0-15.5); LYMPH # 0.8 10^3/uL (1.5-5.0); LYMPH % 7.7 % (24.0-44.0); MEAN CORPUSCULAR HGB CONC 30.8 g/dl (32.0-36.5); MEAN CORPUSCULAR VOLUME 94.1 fl (80.0-96.0); MONO # 1.2 10^3/uL (0.0-0.8); MONO % 12.1 % (0.0-5.0); NEUTROPHILS # 7.4 10^3/uL (1.5-8.5); PLATELET COUNT, AUTOMATED 136 10^3/uL (150-450); RED BLOOD COUNT 3.24 10^6/uL (4.00-5.40); WHITE BLOOD COUNT 9.9 10^3/uL (4.0-10.0)
[2019-10-03 12:09] LABS: ALBUMIN 1.7 GM/DL (3.2-5.2); BILIRUBIN,DIRECT 0.2 MG/DL (0.0-0.2); BILIRUBIN,TOTAL 0.5 MG/DL (0.2-1.0); CALCIUM LEVEL 6.4 MG/DL (8.8-10.2); CREATININE FOR GFR 7.06 MG/DL (0.55-1.30); GLOMERULAR FILTRATION RATE 6.1 (>39); MAGNESIUM LEVEL 2.3 MG/DL (1.8-2.4); POTASSIUM SERUM 5.3 MEQ/L (3.5-5.1)
--- NOTE | 2019-10-03 12:09 | REP ---
PORTABLE CHEST X-RAY: Single AP view. HISTORY: Fluid overload. COMPARISON CHEST X-RAY: June 26, 2019. FINDINGS: The patient is rotated quite a bit to the left with today's radiograph. The heart is difficult to evaluate. EKG electrodes are seen. Pulmonary vasculature does not appear to be increased. No pleural effusion or pulmonary edema is seen. IMPRESSION: The patient is rotated to the left. No pleural effusion or pulmonary edema is seen. No definite focal infiltrate. Electronically Signed by Vel Martinez MD 10/03/2019 02:15 P
[2019-10-03] MEDS ORDERED: MIDO5TA PO (13:00)
[2019-10-03] MEDS ORDERED: OXYC-517 PO (13:00)
[2019-10-03] MEDS ORDERED: DIPH25CA32 PO (13:00)
[2019-10-03] MEDS ORDERED: CEFTAROLINE FOSAMIL 300 MG in D5W 50 ML IV SCH (13:15)
[2019-10-03] MEDS ORDERED: diphenhydrAMINE 25 MG CAP PO PRN (13:15)
[2019-10-03] MEDS ORDERED: GLUCOSE 4 GM CHEW TABLET PO PRN (13:15)
[2019-10-03] MEDS ORDERED: CALCIUM CARBONATE 500 MG CHEW U/D PO PRN (13:15)
[2019-10-03] MEDS ORDERED: GLUCAGON FOR INJ 1 MG VIAL (J1610) SC PRN (13:15)
[2019-10-03] MEDS ORDERED: PATIROMER SORBITEX CALCIUM 8.4 GM POWDER PACKET (VELTASSA) PO PRN (13:15)
[2019-10-03 14:51] LABS: INR 1.22; PROTHROMBIN TIME 15.1 SECONDS (11.8-14.0)
[2019-10-03] MEDS ORDERED: CEFTAROLINE FOSAMIL 200 MG in D5W 50 ML IV SCH (15:00)
--- NOTE | 2019-10-03 15:19 | HPE ---
DATE OF ADMISSION: 10/03/2019 PRIMARY CARE PROVIDER: Dr. Catracho Pineda ATTENDING PHYSICIAN: [facility]. CHIEF COMPLAINT: Gangrenous right great toe. HISTORY: Dalila Hernandez is a 68 year old with end-stage renal disease on dialysis, peripheral arterial disease, type 2 diabetes with neuropathy, and extensive vascular disease. She was sent over from Dr. Osorio's wound center with bilateral lower extremity and sacral wounds. She has a gangrenous right great toe. He noted on his exam today that she had an infected left stump with large amount of celestin-green exudate, a sacral wound in left buttock, 2 x 1.3 cm, a 2.8 x 1.3 cm ulceration on the plantar aspect right foot, a 3.8 x 2 cm right lateral lower leg wound with moderate amount of serosanguineous exudate, and right great toe with a cluster 5 x 11.5 x 1.4 cm deep ulcerations with purulent exudate, a 2.5 x 2 cm right 1st MT ulceration with large amount of serosanguineous discharge, and a 0.6 cm sacral ulceration with adherent eschar that, per patient, was debrided. The right great toe distal phalanx appears to be partial amputated. The patient's past medical history is long and extensive. She has frequent hospitalizations. Most recently, was hospitalized 06/26/2019 - 08/18/2019 for metabolic encephalopathy. I note that she has end-stage liver disease with cirrhosis, end-stage renal disease on dialysis, interstitial lung disease, history of thrombocytopenia, history of neuropathy of the feet, heart failure with preserved ejection fraction, peripheral arterial disease status post left below-knee amputation (BKA), anemia secondary to chronic kidney disease, hypothyroidism, hyperlipidemia, and hypertensive heart disease. SURGICAL HISTORY: Left BKA, 03/2019 with secondary wound infection 06/2019. Left arteriovenous (AV) fistula. Appendectomy. Hysterectomy. Cataract surgery. SOCIAL HISTORY: . No smoking or alcohol use. 12/2018. FAMILY HISTORY: Mother of diabetic complications. Father from accidental . MEDICATIONS: See medication summary. REVIEW OF SYSTEMS: No fever, chills, chest pain or shortness of breath. She is due for dialysis today. ALLERGIES: HEPARIN (elevated heparin-induced antibody, 08/10/2019), LYRICA, VANCOMYCIN. PHYSICAL EXAM: VITAL SIGNS: Per flow sheet. She is afebrile. GENERAL APPEARANCE: Chronically ill appearing. Lying in bed. Complaining of pain from her sacrum. HEENT: Unremarkable. LUNGS: Decreased breath sounds. HEART: Regular rate and rhythm. 1/6 systolic ejection murmur. ABDOMEN: Soft. Nontender. No masses. AV fistula on the left. Wounds on the lower extremities as summarized in the history and physical (H and P) above. LABS: White count 9.9, hemoglobin 9.4, platelets 136. Sodium 130, potassium 5.3, creatinine 7, blood sugar 498. IMPRESSION: 1. Multiple diabetic/ischemic ulcerations including the right great toe, which appears to have now been partially amputated, right lower leg, sacrum, and the left stump. She will be admitted to medical bed. Wound care consult has been ordered. Start ceftaroline, renally dosed. 2. End-stage renal disease. Case discussed with Dr. Mooer. Nephrology will be consulted. He is taking her for dialysis. 3. Cirrhosis with recurrent ascites. She has frequent paracenteses, most recently 09/27/2019 with 5700 mL of ascites was withdrawn with 25% albumin infusions following. 4. Diabetes. Will get a hemoglobin A1c. Blood sugar is fairly elevated, probably from the infection. Sliding scale insulin with coverage ordered. 5. History of depression. Continue duloxetine 30 mg daily. Continue trazodone 200 mg nightly. 6. Diabetic neuropathy. Continue gabapentin 300 mg at bedtime. 7. Hypothyroidism. Continue levothyroxine 125 mcg daily. 8. Orthostatic hypotension. 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 Continue midodrine 5 mg three times a day. 9. Restless legs syndrome. On Requip 6 mg twice a day. 10. Hyperlipidemia. Continue simvastatin 20 mg daily. Hospitalist's service will manage her care. SHAAN
[2019-10-03 18:00] VITALS: BP 110/58
[2019-10-03] MEDS: DULoxetine 30 MG CAP (CYMBALTA) PO SCH (18:58)
[2019-10-03] MEDS: PANTOPRAZOLE 40MG TAB (PROTONIX) PO SCH (18:58)
[2019-10-03] MEDS: MIDODRINE 5 MG TAB PO SCH (18:58)
[2019-10-03] MEDS: LEVOTHYROXINE 125MCG TABLET (0.125MG) PO SCH (18:58)
[2019-10-03] MEDS: HumaLOG INSULIN (NovoLOG) PER UNIT SC SCH ×2 (18:59→20:26)
[2019-10-03] MEDS: CEFTAROLINE FOSAMIL 200 MG in D5W 50 ML IV SCH (18:59)
[2019-10-03] MEDS ORDERED: DARBEPOETIN 100 MCG/0.5 ML *DIALYSIS* SYRINGE (J0882) IV SCH (19:30)
--- NOTE | 2019-10-03 19:53 | CR ---
DATE OF CONSULTATION: 10/03/2019 REQUESTING PHYSICIAN: Dr. Kody Nash. CONSULTING PHYSICIAN: Dr. Moore. REASON FOR CONSULTATION: Management of end-stage renal disease on hemodialysis. CHIEF COMPLAINT: Patient was sent from the wound care clinic because of gangrene of the right big toe. HISTORY OF PRESENT ILLNESS: Dalila Hernandez is a 68-year-old female with past medical history of end-stage renal disease on hemodialysis every Tuesday, Tuesday, Tuesday, history of diabetes mellitus type 2, liver cirrhosis, recurrent ascites requiring once a week taps, history of left below-knee amputation, chronically bedridden, well-known to nephrology service from multiple previous hospitalizations and outpatient dialysis center. She was following up with wound care as outpatient and she was found to have a gangrenous right toe. In addition to that, she had sacral wound on the left buttock, a right foot plantar aspect ulceration, right leg had an ulceration, so patient was sent to the hospital for further management of the wound and possible angiogram of the lower extremity. Nephrology service was called for further help in the management of this patient's hemodialysis. Patient has not been dialyzed for the last 6 days almost. She missed her hemodialysis on Tuesday because she reports that she was not feeling good and she was having diarrhea. I saw and evaluated the patient at the bedside in the emergency room and I arranged the patient's urgent hemodialysis to be done. PAST MEDICAL HISTORY: Past medical history of: 1. End-stage renal disease on hemodialysis every Tuesday, Tuesday, Tuesday. 2. Chronically bedridden. 3. History of left below-knee amputation. 4. Chronic systolic congestive heart failure 5. Liver cirrhosis. 6. Decompensated recurrent ascites. 7. History of peripheral neuropathy. 8. Peripheral vascular disease. 9. Hypothyroidism 10. Hyperlipidemia. 11. Anemia secondary to end-stage renal disease. PAST SURGICAL HISTORY: 1. Status post left below-knee amputation in March 2019. 2. Status post left forearm arteriovenous (AV) fistula placement. 3. History of appendectomy in the past. 4. Hysterectomy in the past. 5. Cataract surgery. 6. Currently getting debridements of the ulcerations in the right lower extremity. ALLERGIES: Patient is allergic to HEPARIN, LYRICA and VANCOMYCIN. FAMILY HISTORY: No significant family history of end-stage renal disease. Positive history of diabetes in the mother SOCIAL HISTORY: Patient lives at home. She reports that her beginning of this year. There is no history of smoking, illicit drug abuse or alcohol abuse. REVIEW OF SYSTEMS: CONSTITUTIONAL: Patient reports feeling very weak and tired. EYES: She denies any blurry vision, double vision. EARS/NOSE/THROAT (ENT): She denies any dysphagia, odynophagia, ear discharge. CARDIOVASCULAR: She denies any chest pain or palpitation. RESPIRATORY: She does report mild shortness of breath. GASTROINTESTINAL (GI): She reports nausea and diarrhea and history of cirrhosis and recurrent ascites. GENITOURINARY: She denies any dysuria, hematuria. MUSCULOSKELETAL: She reports multiple ulcerations of the right leg and the right big toe gangrene. SKIN: She reports multiple ulcerations. She denies any rashes. PSYCHIATRIC: She reports history of depression. 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 HEMATOLOGY/ONCOLOGY: She denies any easy bleeding or bruising. All other review of systems is negative. PHYSICAL EXAMINATION: GENERAL: Patient is awake, alert, oriented times three, in moderate painful distress, laying in the bed. VITAL SIGNS: Temperature is 96.9 degrees Fahrenheit, blood pressure 127/71, pulse of 70, respiratory rate of 16, saturating 96% on room air. HEAD AND NECK EXAM: Pupils equally round and reactive to light. Mucous membranes are moist. She has puffiness of the face. Neck is supple. There is mild elevation of jugular venous distention (JVD). CARDIOVASCULAR: S1, S2. Regular rate. 2+ edema of the right lower extremity. RESPIRATORY: Mildly decreased breath sounds at the bases. No active rales or rhonchi. ABDOMEN: Soft, positive bowel sounds. Moderate amount of ascites was noted. There is abdominal wall edema. MUSCULOSKELETAL: Patient has left below-knee amputation and stump is covered with a dressing. Right foot has gangrene toe, which is partially amputated and she has ulceration on the right leg as well. SKIN: Multiple ulcerations on the leg and the gluteal region as well. 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 Otherwise, she follows commands and moves all his extremities. AV ACCESS: Patient has a left forearm AV fistula with a positive thrill and bruit. LABORATORY REVIEW: Complete blood count (CBC) showed a WBC 9.9, hemoglobin 9.4, platelets of 136. INR is 1.22. Basic metabolic panel (BMP) showed sodium 130, potassium 5.3, chloride 94, bicarbonate 25, BUN 68, creatinine is 7, glucose 498, calcium is 6.4. Albumin 1.7. MICROBIOLOGY: Blood cultures are pending. IMAGING STUDIES: A chest x-ray was done in the emergency room which showed no pleural effusion or pulmonary edema. No focal infiltrates. CURRENT INPATIENT MEDICATIONS: Patient has been started on: - ceftaroline 200 mg intravenous (IV) every 12 hours - She is on Tums as needed for indigestion - Benadryl as needed for itching - Cymbalta 30 mg by mouth daily - gabapentin 300 mg at bedtime - insulin Levemir 10 units subcutaneous twice a day - insulin sliding scale - levothyroxine 125 mcg by mouth daily - midodrine 5 mg by mouth three times a day - oxycodone as needed - Os-Daniel 500 mg by mouth daily - Protonix 40 mg by mouth daily - Requip 6 mg by mouth twice a day - simvastatin 20 mg at bedtime - trazodone 100 mg at bedtime ASSESSMENT: A 68-year-old female with history of end-stage renal disease on hemodialysis, history of diabetes mellitus type 2, cirrhosis, recurrent ascites, left below-knee amputation, chronic ulcerations of the leg, admitted this time with right big toe gangrene and multiple ulcerations PLAN: 1. End-stage renal disease on hemodialysis. Patient is noncompliant with dialysis. She missed her last hemodialysis session on Tuesday. She is being gently dialyzed. Ultrafiltration goal will be around 1.5 liters as tolerated by her blood pressure. 2. Right big toe gangrene. Patient was seeing wound care as outpatient. She needs to be seen by vascular surgery for peripheral vascular disease and possible ischemia. Continue the empiric treatment with ceftaroline at this time. 3. Chronic kidney disease/mineral bone disease. Continue current dose of Tums, but I am going to change it with every meal instead of as needed. 4. Chronic hypotension. Continue current dose of midodrine 5 mg by mouth three times a day 5. Diabetes mellitus type 2, insulin dependent. Continue current dose of insulin Levemir 10 units subcutaneous twice a day and insulin sliding scale. 6. Anemia in end-stage renal disease. Hemoglobin level is 9.4. Patient is going to be started on iron and Aranesp. 7. Hyperkalemia. It is secondary to missed dialysis. She will be dialyzed with a 2K bath. Potassium level is expected to improve. 8. Hyponatremia. Patient has hypovolemic hyponatremia. Sodium level is expected to improve after dialysis and fluid removal. 9. Protein calorie malnutrition. Patient has cirrhosis and she has poor oral intake, failure to thrive, chronically low albumin. She will be started on Nepro with diet. Thank you for involving me in the care of this patient. I shall be happy to follow the patient along with you tomorrow morning.
--- NOTE | 2019-10-03 20:17 | ECGEPIP ---
[facility] - ED Test Date: 2019-10-03 Pat Name: GIU JEAN Department: Room: - Gender: Female Biomechanical Engineer: MIKE : [id number] Requested By: Teddy Patton Order Number: [id number] Reading MD: Teddy Fay Measurements Intervals [place] Rate: 70 P: 3 SC: 171 QRS: -48 QRSD: 82 T: 59 QT: 458 QTc: 497 Interpretive Statements SINUS RHYTHM LEFT ANTERIOR FASCICULAR BLOCK ANTEROSEPTAL MYOCARDIAL INFARCTION, PROBABLY OLD SIMILAR TO 06/26/19 Electronically Signed on 10-03-2019 20:17:02 EST by Teddy Fay
[2019-10-03 20:18] VITALS: BP 106/56
[2019-10-03] MEDS: SIMVASTATIN 20 MG TAB PO SCH (20:24)
[2019-10-03] MEDS: rOPINIRole 2MG TAB PO SCH (20:24)
[2019-10-03] MEDS: GABAPENTIN 300 MG CAP PO SCH (20:24)
[2019-10-03] MEDS: traZODone 100 MG TAB PO SCH (20:24)
[2019-10-03] MEDS: oxyCODONE 5MG TAB PO PRN (20:24)
[2019-10-03] MEDS: LEVEMIR (INSULIN DETEMIR) 1 UNITS/0.01ML SC SCH (20:25)
[2019-10-03 22:00] VITALS: BP 106/50
[2019-10-04 01:35] VITALS: BP 101/52
[2019-10-04] MEDS: LEVOTHYROXINE 125MCG TABLET (0.125MG) PO SCH (05:31)
[2019-10-04] MEDS: CEFTAROLINE FOSAMIL 200 MG in D5W 50 ML IV SCH ×2 (05:32→17:29)
[2019-10-04 06:51] VITALS: BP 100/52
[2019-10-04 07:25] LABS: HEMATOCRIT 31.3 % (36.0-47.0); HEMOGLOBIN 9.3 g/dl (12.0-15.5); MEAN CORPUSCULAR HEMOGLOBIN 28.3 pg (27.0-33.0); MEAN CORPUSCULAR HGB CONC 29.7 g/dl (32.0-36.5); MEAN CORPUSCULAR VOLUME 95.1 fl (80.0-96.0); PLATELET COUNT, AUTOMATED 117 10^3/uL (150-450); RED BLOOD COUNT 3.29 10^6/uL (4.00-5.40); WHITE BLOOD COUNT 8.9 10^3/uL (4.0-10.0)
[2019-10-04] MEDS: HumaLOG INSULIN (NovoLOG) PER UNIT SC SCH ×4 (07:30→20:50)
[2019-10-04 07:59] LABS: ALBUMIN 1.4 GM/DL (3.2-5.2); CALCIUM LEVEL 6.3 MG/DL (8.8-10.2); CREATININE FOR GFR 5.53 MG/DL (0.55-1.30); GLOMERULAR FILTRATION RATE 8.1 (>39); PERCENT SATURATION 23.6 % (13.2-45.0); PHOSPHORUS LEVEL 5.6 MG/DL (2.5-4.9); POTASSIUM SERUM 4.6 MEQ/L (3.5-5.1)
[2019-10-04] MEDS: rOPINIRole 2MG TAB PO SCH ×2 (08:44→21:11)
[2019-10-04] MEDS: MIDODRINE 5 MG TAB PO SCH ×3 (08:44→17:29)
[2019-10-04] MEDS: CALCIUM CARBONATE 500 MG CHEW U/D PO SCH ×3 (08:44→17:29)
[2019-10-04] MEDS: PANTOPRAZOLE 40MG TAB (PROTONIX) PO SCH (08:45)
[2019-10-04] MEDS: DULoxetine 30 MG CAP (CYMBALTA) PO SCH (08:45)
[2019-10-04] MEDS: LEVEMIR (INSULIN DETEMIR) 1 UNITS/0.01ML SC SCH ×2 (08:46→21:11)
[2019-10-04] MEDS ORDERED: PREVNAR 13 VACCINE SYRINGE (CPT CODE:90670) IM ONE (09:00)
[2019-10-04] MEDS: oxyCODONE 5MG TAB PO PRN ×2 (09:16→17:29)
[2019-10-04 11:30] VITALS: BP 104/60
--- NOTE | 2019-10-04 11:57 | IPN ---
DATE OF SERVICE: 10/04/2019 SUBJECTIVE: The patient is seen this morning at bedside and states she is doing okay. She was dialyzed yesterday and has overall been stable. She is continued on ceftaroline for her big toe gangrene. She was started on Aranesp yesterday for her anemia. There is a plan today with her primary to do a paracentesis. OBJECTIVE: VITAL SIGNS: Temperature 97.9, pulse 71, respiratory rate 18, blood pressure 100/52, pulse oximetry 94% on room air. 1300 mL out yesterday with hemodialysis. GENERAL: The patient is awake, alert, oriented, lying comfortably in bed, in no acute distress. She states she still feels weak and tired. HEENT: Head is normocephalic, atraumatic. Extraocular movements intact (EOMI). Mucous membranes are moist. NECK: Supple. There is still mild elevation of jugular venous distention (JVD). CARDIOVASCULAR: Regular rate and rhythm. Normal S1 and S2. 2+ pitting edema of the right lower extremity. RESPIRATORY: Diminished lung sounds at bilateral bases with mild crackles at bilateral bases, as well. No wheezes or rhonchi. ABDOMEN: Soft. Positive bowel sounds. Continues to be moderate amount of ascites with abdominal wall edema. MUSCULOSKELETAL: The patient has a left below-knee amputation (BKA) and stump that seems to be healing well and has scar tissue forming over it. Right foot has a gangrenous toe with a partial amputation and ulcerations on her right leg, as well. NEUROLOGIC: She moves all four extremities, and there are no focal neurologic deficits observed. EXTREMITIES: The patient has left forearm AV fistula with by mouth thrill and bruit. LABORATORY REVIEW: White blood cell count of 8.9, hemoglobin 9.3, hematocrit of 31.3, platelet count of 117. Sodium of 137, potassium 4.6, chloride 99, CO2 27, BUN of 48, creatinine of 5.53, glucose 254, calcium of 6.3, phosphorus 5.6, iron is 25, TIBC of 106, ferritin of 1554, albumin of 1.4. ASSESSMENT AND PLAN: 1. End-stage renal disease, on hemodialysis. The patient missed her hemodialysis session on Tuesday and was dialyzed yesterday with 1.3 liters removed as tolerated for her blood pressure. 2. Right big toe gangrene. The patient is continued on ceftaroline. Advance wound care consult and podiatry consult have been placed. Management as per wound care team. 3. Chronic kidney disease/mineral bone disease. Tums was added yesterday and is to be given with every meal. 4. Chronic hypotension. The patient is continued on midodrine 5 mg by mouth three times a day. 5. Type 2 diabetes, insulin dependent. Continue with current Levemir dose of 10 units subcutaneous twice a day on sliding scale. 6. Anemia in end-stage renal disease. Hemoglobin is stable today. The patient has been started on iron and Aranesp. 7. Hyperkalemia. This is resolved after dialysis. 8. Hyponatremia. Sodium level is similarly improved after dialysis yesterday. 9. Protein-calorie malnutrition. The patient has cirrhosis with poor oral intake, failure to thrive, and chronically low albumin. She was started on Nepro with diet.
--- NOTE | 2019-10-04 12:26 | IPNPDOC ---
Date Seen The patient was seen on 10/04/19. Progress Note SUBJECTIVE: 68-year-old female with past medical history of end-stage renal disease on dialysis, cirrhosis, diabetes mellitus, hypertension, hypothyroidism, peripheral artery disease, chronic hypotension, was admitted for bilateral lower extremity and sacral wounds. She underwent a partial amputation at Dr. Osorio's office yesterday, who then sent her to the hospital for further evaluation. She reports having worsening wounds noted. The past few months, underwent an angioplasty of the right lower extremity at one week ago by interventional radiology. Otherwise, she is currently comfortable and without any complaints, reports mild pain/discomfort in her wounds. She denies any shortness of breath, chest pain, nausea, vomiting, abdominal pain or diarrhea. She usually gets weekly paracentesis on , has 5-6 L drained on average, scheduled for paracentesis today by IR. 10 point review of system was negative except for above PHYSICAL EXAMINATION: VITAL SIGNS: Please see below. GENERAL: No distress HEENT: Normocephalic, atraumatic, moist mucous membranes NECK: Supple CARDIOVASCULAR EXAMINATION: S1, S2, systolic murmur appreciated RESPIRATORY EXAMINATION: Clear to auscultation, no wheezing ABDOMINAL EXAMINATION: Soft, nontender, distended, positive bowel sounds EXTREMITIES: Left upper extremity AV fistula, status post left lower extremity BKA SKIN: Wound on left lower extremity stump, without any drainage at this time, right foot wound with partial limitation of great toe and packing, foul- smelling. NEUROLOGICAL EXAMINATION: Alert and oriented 3, no focal deficits PSYCHIATRIC EXAMINATION: Calm and cooperative LABORATORY DATA, IMAGING STUDIES, MICROBIOLOGY: Please see below. DVT prophylaxis ordered?: Yes ASSESSMENT AND PLAN: 68-year-old female with past medical history of end-stage renal disease, cirrhosis, hypertension, hypothyroidism, peripheral artery disease, diabetes mellitus and chronic hypertension is admitted for multiple wounds. PROBLEMS: 1. Multiple lower extremity and sacral wounds: Was following with Dr. Osorio in wound clinic, underwent partial amputation of wet gangrene yesterday. Wound care and podiatry consulted, continue Ceftaroline Foot x-ray ordered, ESR/CRP pending. 2. End-stage renal disease. Usually gets hemodialysis Tuesday, Tuesday, Tuesday, compliance is an issue. Underwent hemodialysis yesterday, further dialysis as per nephrology. Continue Patiromer, Aransep and calcium carbonate 2. Cirrhosis: Gets weekly paracentesis, paracentesis by IR today. 3. Chronic hypotension: Continue Midodrine. 4. Diabetes mellitus Continue Levemir 10 units twice a day Sliding scale insulin with fingersticks before every meal see and at bedtime 5. Hypothyroidism. Continue levothyroxine. 6. Peripheral artery disease. Status post right lower extremity angioplasty one week ago by interventional radiology. Continue simvastatin DVT prophylaxis: Heparin subcutaneous GI prophylaxis: Home PPI VS, I&O, 24H, Fishbone Vital Signs/I&O Vital Signs Date Time Temp Pulse Resp B/P (MAP) Pulse Ox O2 Delivery O2 Flow Rate FiO2 10/04/19 10:00 18 10/04/19 06:51 97.9 71 100/52 (68) 94 Room Air I&O- Last 24 Hours up to 6 AM 10/04/19 05:59 Intake Total 400 ml Output Total 1300 ml Balance -900 ml Laboratory Data 24H LABS Laboratory Tests 2 10/03/19 14:21: Prothrombin Time 15.1H, Prothromb Time International Ratio 1.22 10/03/19 17:54: Bedside Glucose (Misc Panel) 242H 10/03/19 20:16: Bedside Glucose (Misc Panel) 267H 10/04/19 07:12: Nucleated Red Blood Cells % (auto) 0.0, Anion Gap 11, Glomerular Filtration Rate 8.1L, Calcium Level 6.3L, Phosphorus Level 5.6H, Iron Level 25L, Total Iron Binding Capacity 106L, Transferrin % Saturation 23.6, Ferritin 1554H, Albumin 1.4L 10/04/19 11:41: Bedside Glucose (Misc Panel) 221H CBC/BMP Laboratory Tests 10/04/19 07:12 Microbiology Microbiology 10/03/19 Blood Culture, Received Pending 10/03/19 Blood Culture, Received Pending MERLENE GAMEZ MD Oct 04, 2019 12:26
[2019-10-04 13:00] LABS: ERYTHROCYTE SEDIMENTATION RATE 60 mm/hr (0-30)
[2019-10-04 14:00] VITALS: BP 104/60
--- NOTE | 2019-10-04 15:57 | REP ---
Right foot four views: Comparison is the most recent prior study dated 09/05/2018. On the current study there has been amputation of the great toe at the level of the proximal phalange base, as an interval change. There are lucent changes within the remaining great toe base suggestive of destructive change. There is soft tissue edema surrounding the great toe base. There are air / gas bubbles within the soft tissue edema. There are old amputations of the distal second and third digit metatarsals. Electronically Signed by Aureliano Banks MD 10/04/2019 03:49 P
[2019-10-04] MEDS ORDERED: PILL CUTTER 1 EACH XX PRN (17:15)
--- NOTE | 2019-10-04 17:29 | REP ---
Ultrasound-guided paracentesis The procedure was performed under the direct supervision of Dr. Martinez. The risks and benefits of the procedure were explained to the patient and informed consent was obtained. The largest pocket of fluid was localized in the flank using ultrasound guidance. The skin was prepped and draped in a sterile fashion. 1% lidocaine was used as a local anesthetic. An 8-Mongolian multi side-hole catheter was inserted using trocar technique. 7900 ml of yellow fluid was withdrawn and discarded. The patient tolerated the procedure well and there were no immediate complications. After the appropriate amount of monitored convalescence the patient was discharged from the department. Electronically Signed by ANTONIO Curiel 10/04/2019 03:30 P Electronically Signed by Vel Martinez MD 10/04/2019 05:20 P
--- NOTE | 2019-10-04 18:02 | IPN ---
DATE: 10/04/2019 ATTENDING PHYSICIAN: [facility] . CHIEF COMPLAINT: Painful right big toe. The patient has seen Dr. Osorio, was dated with gangrenous changes of the right big toe. She complains of swelling and increasing pain in her right big toe as well as her sacral area where she has an ulceration as well. The patient has extensive peripheral artery disease and diabetes mellitus with end-stage renal disease. PAST SURGICAL HISTORY: Left below-knee amputation, arteriovenous (AV) fistula, appendectomy, hysterectomy, cataract surgery, numerous foot surgeries/amputations. PAST MEDICAL HISTORY: End-stage renal disease, diabetes mellitus, liver disease, interstitial lung disease, heart failure, peripheral artery disease. Evaluation of her foot reveals an ulceration on the distal aspect of her right foot. This ulceration measures approximately 2 cm x 1 cm extending to bone. Cellulitis is noted from the foot extending up the lower leg. X-rays were reviewed revealing destructive osteomyelitis of the proximal phalanx. There is gas in the subcutaneous tissues with some bone changes noted on the fist metatarsal. Pedal pulses are not palpable. ASSESSMENT: Osteomyelitis, proximal phalanx of the hallux and first metatarsal. PLAN: We discussed with the patient a first ray amputation with packing of the wound. This possibly can be changed to a delayed primary closure. She will nothing by mouth after midnight. Informed consent was obtained and signed by the patient.
[2019-10-04 18:09] VITALS: BP 107/56
--- NOTE | 2019-10-04 18:27 | CR ---
DATE OF CONSULTATION: 10/04/2019 TELEMEDICINE CONSULT CONSULT REQUESTED BY: Dr. Kody Nash. This is regarding multiple advanced wound care treatment modalities. 68-year-old female with multiple comorbidities including cirrhosis of the liver with extensive abdominal ascites, uncontrolled diabetes, kidney failure - on dialysis, wet gangrene/gas gangrene of the right great toe, failed left below-knee amputation site, peripheral vascular disease. The patient was seen in our clinic on 10/03/2019 where her right great toe showed wet gangrene with air in the tissue. Therefore, an open guillotine amputation of the right great toe was performed. Hemostasis maintained with cautery. The patient's amputation site involving her left below-knee was debrided, and because of her multiple comorbidities, the patient was admitted to the hospital. She had missed dialysis the day before, has been evaluated by interventional radiology, Dr. Henriquez, who recently performed an arteriogram involving the right lower extremity which showed no significant stenotic lesions and will be scheduling a left lower extremity arteriogram with possible angiography in the near future. Her abdominal ascites will be addressed with TIPPS procedure, and she will continue obviously with her renal dialysis. She is on Teflaro to cover all wounds and to potentially avoid the risk for primary peritonitis due to multiple necessary paracentesis procedures. Wound measurements: Left lower extremity amputation site measuring 10.5 cm x 8.0 cm with a depth of 0.2 cm. This shows diffuse fibrin slough with underlying superficial necrotic tissue and underlying biofilm by definition. There is a sacral wound measuring 2.2 cm x 1.5 cm with a depth of 0.6 cm. This wound base shows necrotic tissue and fibrin slough. No palpable bone is appreciated. Right lower extremity shows a lateral supramalleolar wound measuring 4.3 cm x 2.5 cm and an open amputation site of the first digit, which has been removed, measuring 3.2 cm x 2.5 cm with a depth of 2.0 cm. At present, the patient is stable without hypotension secondary to sepsis. She has recently had paracentesis, and her systolic blood pressure is in the 90s, her pulse is 76. Her last glucose reading was 221. The patient is at high risk for multiple areas of non-wound healing and systemic sepsis and decompensation secondary to her advanced cirrhosis, and the fact that she is on dialysis. Precautionary measures would include a heel float boot for her right lower extremity, dressing changes should be on a daily basis or every other day depending upon drainage, and should include Endoform advanced tissue matrix and Hydrofera Blue foam. Vashe wound cleanser should be used to cleanse all wounds prior to the dressing changes. The patient's coagulation studies should be watched closely as she is on antibiotic therapy which is required, and has advanced cirrhosis, which places her at a high risk for bleeding. The patient does not have, as far as I know, a history of bleeding esophageal varices and her ascites hopefully can be somewhat improved with a TIPPS procedure. This case has been discussed with Dr. Henriquez who is aware of the patient's recent admission. SHAAN
[2019-10-04] MEDS ORDERED: MEROPENEM INJ 2 GM in NS 100 ML IV SCH (21:00)
[2019-10-04] MEDS: GABAPENTIN 300 MG CAP PO SCH (21:10)
[2019-10-04] MEDS: MEROPENEM INJ 1 GM in IV 1 EA IV SCH (21:10)
[2019-10-04] MEDS: SIMVASTATIN 20 MG TAB PO SCH (21:10)
[2019-10-04] MEDS: traZODone 100 MG TAB PO SCH (21:11)
[2019-10-04 22:00] VITALS: BP 102/53
[2019-10-04] MEDS: LINEZOLID 600 MG in IV 1 EA IV SCH (22:02)
[2019-10-05] VITALS (16 sets, daily range): BP systolic 75–106; BP diastolic 35–70
[2019-10-05] MEDS: ONDANSETRON 4MG/2ML VIAL (J2405) IV PRN (04:25)
[2019-10-05] MEDS: LEVOTHYROXINE 125MCG TABLET (0.125MG) PO SCH (05:03)
[2019-10-05] MEDS ORDERED: NS 500 ML IV ONE (05:45)
[2019-10-05 06:10] LABS: HEMATOCRIT 32.9 % (36.0-47.0); HEMOGLOBIN 9.9 g/dl (12.0-15.5); MEAN CORPUSCULAR HEMOGLOBIN 28.9 pg (27.0-33.0); MEAN CORPUSCULAR HGB CONC 30.1 g/dl (32.0-36.5); MEAN CORPUSCULAR VOLUME 96.2 fl (80.0-96.0); PLATELET COUNT, AUTOMATED 140 10^3/uL (150-450); RED BLOOD COUNT 3.42 10^6/uL (4.00-5.40); WHITE BLOOD COUNT 12.1 10^3/uL (4.0-10.0)
[2019-10-05 06:35] LABS: CREATININE FOR GFR 6.18 MG/DL (0.55-1.30)
[2019-10-05 06:36] LABS: ALBUMIN 1.3 GM/DL (3.2-5.2); CALCIUM LEVEL 6.2 MG/DL (8.8-10.2); GLOMERULAR FILTRATION RATE 7.1 (>39); MAGNESIUM LEVEL 2.1 MG/DL (1.8-2.4); PHOSPHORUS LEVEL 5.9 MG/DL (2.5-4.9)
[2019-10-05] MEDS: HumaLOG INSULIN (NovoLOG) PER UNIT SC SCH ×4 (07:30→21:00)
[2019-10-05] MEDS: DULoxetine 30 MG CAP (CYMBALTA) PO SCH (08:37)
[2019-10-05] MEDS: MIDODRINE 5 MG TAB PO SCH ×4 (08:37→16:57)
[2019-10-05] MEDS: CALCIUM CARBONATE 500 MG CHEW U/D PO SCH ×3 (08:37→17:46)
[2019-10-05] MEDS: PANTOPRAZOLE 40MG TAB (PROTONIX) PO SCH (08:37)
[2019-10-05] MEDS: LEVEMIR (INSULIN DETEMIR) 1 UNITS/0.01ML SC SCH ×2 (08:38→21:47)
[2019-10-05] MEDS: rOPINIRole 2MG TAB PO SCH ×2 (08:38→21:48)
[2019-10-05] MEDS: LINEZOLID 600 MG in IV 1 EA IV SCH ×2 (08:48→22:45)
[2019-10-05] MEDS ORDERED: BICITRA 30ML SOLN UDC PO ONE (10:45)
[2019-10-05] MEDS ORDERED: GENTAMICIN SULF INJ 80MG/2ML VIAL (J1580) As Ordered ONE (12:02)
[2019-10-05] MEDS ORDERED: ROPIvacaine 0.5% 30 ML INJECTION (J2795 PER 1MG) As Ordered ONE (12:02)
[2019-10-05] MEDS ORDERED: BICITRA 30ML SOLN UDC As Ordered ONE (12:03)
[2019-10-05] MEDS ORDERED: HumaLOG INSULIN (NovoLOG) PER UNIT As Ordered ONE ×2 (12:04→12:11)
[2019-10-05] MEDS ORDERED: LIDOCAINE 2% W/EPIN INJ 20ML **PRES FREE As Ordered ONE (12:05)
[2019-10-05] MEDS ORDERED: BUPIVACAINE HCL 0.5% 10 ML VIAL As Ordered ONE (12:05)
--- NOTE | 2019-10-05 12:05 | IPN ---
DATE: 10/05/2019 SUBJECTIVE: The patient was seen and examined at the bedside this morning. She is afebrile, hemodynamically stable. She got paracentesis done yesterday and 7.9 liters of fluid was removed. The patient is going to the operating room and to have ray amputation of the right foot because of gangrene of the right big toe. Today is the patient's regular day of dialysis. OBJECTIVE: Vital signs: Temperature is 98.5 degrees Fahrenheit, blood pressure 95/47, pulse is 75, respiratory of 16, saturating 98% on room air. Intake and output: Urine output is not recorded. Paracentesis done yesterday was 7.9 liters. Weight on the bed scale is not available. PHYSICAL EXAMINATION: General: The patient is weak and in a moderate amount of pain, laying in bed, able to answer questions HEAD/NECK: Extraocular muscles intact. Pupils equally round and reactive to light. Mucous membranes are moist. Neck is supple. There is no jugular venous distention (JVD). Cardiovascular: S1, S2. Regular rate. 1+ edema of the right lower extremity. Respiratory: Mildly decreased breath sounds at the bases, otherwise no active rales or rhonchi. Abdomen: Soft, positive bowel sounds. Ascites is better today since paracentesis. Musculoskeletal: She has a left below-knee amputation. Right foot has a gangrenous toe amputation site. It is covered with a dressing. Central nervous system (PERINATAL TECH): The patient is slightly obtunded because of pain medications. Otherwise, she follows commands and moves upper extremities. LABORATORY REVIEW: CBC showed WBC 12.1, hemoglobin 9.9, platelets of 140. BMP showed sodium 134, potassium 5, chloride 100, bicarbonate 24, BUN 57, creatinine 6.1, calcium 6.2, phosphorus is 5.9. CURRENT INPATIENT MEDICATIONS: The patient's medications were all reviewed by me. There is no change in the medications today as compared with yesterday. She currently is on IV Zyvox, ceftaroline was stopped yesterday. She continues to be on meropenem as well. ASSESSMENT/PLAN: 1. End-stage renal disease on hemodialysis. The patient's regular days are Tuesday, Tuesday, Tuesday for dialysis. She is going to the OR for the procedure. No urgent need to do dialysis today. She will be dialyzed tomorrow morning. 2. Right big toe gangrene. The patient is currently on IV Zyvox and meropenem. She is being seen by infectious disease. The patient is going for ray amputation of the right foot. 3. Chronic hypotension. Continue current dose of midodrine 5 mg p.o. three times a day. 4. Anemia in end-stage renal disease. The patient's hemoglobin is 9.9, which is improving. Continue current dose of Aranesp with dialysis.
[2019-10-05] MEDS ORDERED: LIDOCAINE 1% MDV 20ML VIAL As Ordered ONE (12:11)
--- NOTE | 2019-10-05 12:11 | REP ---
Partial right foot series: Single view. History: Intra procedural imaging. Amputation. 1.2 seconds of fluoroscopy time is reported. Findings: A single last image hold fluoroscopically obtained spot radiograph of the forefoot document first and second toe amputation. There is no visible laterality marker. Electronically Signed by Vel Martinez MD 10/05/2019 12:03 P
[2019-10-05] MEDS ORDERED: ONDANSETRON 4MG/2ML VIAL (J2405) IV PRN (12:30)
[2019-10-05] MEDS ORDERED: LR 1,000 ML IV SCH (12:30)
[2019-10-05] MEDS ORDERED: HYDROMORPHONE HCL 0.5 MG/ 0.5 ML SYRINGE (J1170 PER 1) IV PRN (12:30)
[2019-10-05] MEDS ORDERED: fentaNYL 100 MCG/2 ML INJECTION (J3010) IV PRN (12:30)
[2019-10-05] MEDS ORDERED: HumaLOG INSULIN (NovoLOG) PER UNIT SC ONE (12:45)
--- NOTE | 2019-10-05 15:30 | CR ---
DATE OF CONSULTATION: 10/05/2019 Asked to consult by Dr. Baeza for evaluation of right foot gangrene with some diabetic foot ulcer and left below knee stump infection. HISTORY OF PRESENT ILLNESS: Ms. Hernandez is a 68-year-old female with a history of insulin-dependent diabetes, end-stage renal disease, peripheral vascular disease, severe neuropathy, who had a left below-knee amputation (BKA) March 2019 which has not healed. She also developed a right diabetic foot ulcer and has been following up with Dr. Osorio for both infections. She was seen by Dr. Osorio on Tuesday and she had evidence of gangrene of the right big toe, and he recommended an amputation, which she did that the office. She also had cellulitis and redness involving the thigh. The stump on the left side looked like it was infected with increased amount of greenish-yellowish purulent discharge on the left side. She has had no fever or chills. She was also complaining of pain in the buttock area and was noted to have a sacral decubitus measuring about 2.8 cm. Her past medical history is significant for insulin-dependent diabetes, diabetic neuropathy, nephropathy, retinopathy. End-stage liver disease with cirrhosis requiring multiple paracenteses weekly, she was going to undergo a TIPSS procedure by Dr. Henriquez in the near future, interstitial lung disease, thrombocytopenia, diabetic neuropathy, heart failure with preserved ejection fraction, peripheral vascular disease status post below-knee amputation, anemia secondary to chronic kidney disease, hypothyroidism, hyperlipidemia, and hypertensive heart disease. PAST SURGICAL HISTORY: Left BKA 03/2019 with secondary wound infection, left arteriovenous (AV) fistula, appendectomy, hysterectomy, cataract surgery. SOCIAL HISTORY: She lives with her daughter. She is a . Her was a corporate strategist. She just moved to a new apartment to live with Rebekah Piper, her daughter. Notes she does not smoke or drink. December 2018. FAMILY HISTORY: Mother of complications of diabetes. REVIEW OF SYSTEMS: She had no fever or chills. No chest pain or shortness of breath. She complains of bloating from ascites. She complains of pain in the buttock from her decubitus and bilateral leg pain. She has no nausea, vomiting, abdominal pain, or diarrhea. ALLERGIES: HEPARIN and LYRICA, as well as VANCOMYCIN. MEDICATIONS: - nystatin topical twice a day - Zofran as needed 4 mg IV every 8 hours - meropenem 1 gram IV nightly - linezolid 600 mg IV every 12 hours - Roxicodone 2.5 mg by mouth every 6 as needed - Tums 500 before food three times a day - gabapentin 300 mg by mouth nightly - Levemir 10 units subcu twice a day - Requip 6 mg by mouth twice a day - Zocor 20 mg by mouth nightly - trazodone 20 mg by mouth nightly - ceftaroline 200 mg IV every 12 hours. She received three doses and was discontinued by myself last night, 10/04/2019. LABS: White count 12.1, hemoglobin 9.9, hematocrit 32.9, platelets 140. ESR 30. Sodium 134, creatinine 6.18, glucose 201, calcium 6.2, phosphorous 5.9, CRP 14, albumin 1.3. Blood cultures, two sets are no growth after 48 hours and wound culture from the right big toe is pending. Foot x-ray right side showed old amputation in the distal 2nd and 3rd metatarsal There are destructive changes in the remaining toes suggestive of osteomyelitis, and a metatarsal amputation of the big toe was done before the film. On physical exam, sick-looking female, in no acute distress. Temperature is 98.2, pulse 73, respirations 14, blood pressure 95/48, oxygen saturation 95% on room air. Heart: Normal S1, S2 with soft ejection murmur 2/6, unchanged. Lungs are clear. No wheezes or rhonchi. Abdomen obese, soft, nontender with ascites. Extremities: Left below-knee amputation with stump that has dusky discoloration, purulent discharge. There is Hydrofera Blue dressing and Optifoam. Right big toe amputation. There is an open ulcer medially measuring about 3 x 2 cm with purulent discharge. There is redness involving the whole foot extending all the way to the mid thigh with +2 pitting edema. IMPRESSION: Acute osteomyelitis of the right 1st toe and metatarsal status post amputation by Dr. Osorio. Patient is to go to the operating room (OR) with Dr. Baeza for a ray amputation of that toe and further debridement. She was switched from ceftaroline to intravenous (IV) meropenem and linezolid for better coverage for gram negatives such as Pseudomonas, Proteus, and the patient has a history of vancomycin-resistant enterococcus (VRE) and methicillin-resistant Staphylococcus aureus (MRSA) and, therefore, linezolid was used. PLAN: PAtient going to Operating room today with Dr. Baeza for ray amputation. Please send aerobic, anaerobic culture from the OR. Continue with IV meropenem and linezolid. Please culture the wound from the left stump. MTDD
--- NOTE | 2019-10-05 16:27 | RO ---
DATE OF PROCEDURE: 10/05/2019 PREPROCEDURE DIAGNOSIS: Osteomyelitis first ray right foot. POSTPROCEDURE DIAGNOSIS: Osteomyelitis first ray right foot. PROCEDURE: First ray amputation right foot. SURGEON: Chris Beaza DPM HOT BOX SPOTTER: None ANESTHESIA: Local monitored anesthesia care (MAC). IRRIGATION: Dilute gentamicin solution. ESTIMATED BLOOD LOSS: 10 mL. HEMOSTASIS: None. IMPLANTABLES: None. DRAINS: Half-inch Iodoform gauze. DESCRIPTION OF PROCEDURE: On 10/05/2019, this 68-year-old white female was taken from her hospital room to the operating room and placed on the operating table in the supine position. Following the induction of IV sedation and local and regional anesthesia, the right lower extremity was prepped and draped in the usual aseptic manner. Attention was directed to the patient's right foot. There was noted to be an ulceration on the distal aspect of the hallux. The bone was directly visible in the wound. At this time, a racquet incision was placed on the distal one-quarter of the first metatarsal and then ellipsing around the base of the proximal phalanx. This incision was made straight to bone. All necrotic tissue in the area was excised with a skin incision. The proximal phalanx was sharply debrided out of the wound and sent to pathology for aerobic and anaerobic exam. The sesamoids were inspected. The tibial sesamoid was grossly infected. This was debrided and sent as well for aerobic and anaerobic culture. Utilizing a sagittal saw, an osteotomy was performed through the neck of the first ray. The cut was biased in such a way that more bone was taken on the medial and plantar sides. This was then removed. All bleeders as encountered were electrocoagulated. Intraoperative C-arm image revealed resection of all osteomyelitic bone. The wound was flushed with three liters of dilute gentamicin solution with a low pressure pulse lavage system. All remaining bleeders were electrocoagulated. Half-inch Iodoform gauze was placed in the wound and several stitches of #3-0 nylon were placed across the wound to prevent contraction of the wound edges for subsequent delayed closure if needed. This could be done over antibiotic beads. The drain is utilized to prevent accumulation of any infectious material. Her questions were answered. The patient having apparently tolerated the surgical procedure well was taken to the recovery room for further monitoring by the anesthesia department. SHAAN
--- NOTE | 2019-10-05 16:55 | IPNPDOC ---
Date Seen The patient was seen on 10/05/19. Progress Note SUBJECTIVE: 68-year-old female with past medical history of end-stage renal disease on dialysis, cirrhosis, diabetes mellitus, hypertension, hypothyroidism, peripheral artery disease, chronic hypotension, was admitted for bilateral lower extremity and sacral wounds. She underwent a partial amputation at Dr. Osorio's office yesterday, who then sent her to the hospital for further evaluation. She reports having worsening wounds noted. The past few months, underwent an angioplasty of the right lower extremity at one week ago by interventional radiology. Otherwise, she is currently comfortable and without any complaints, reports mild pain/discomfort in her wounds. She denies any shortness of breath, chest pain, nausea, vomiting, abdominal pain or diarrhea. She usually gets weekly paracentesis on , has 5-6 L drained on average, scheduled for paracentesis today by IR. 10/05/2019 Patient scheduled for or today, 7900 mL of fluid was removed during paracentesis yesterday, patient feels weak and short of breath, no other complaints. 10 point review of system was negative except for above PHYSICAL EXAMINATION: VITAL SIGNS: Please see below. GENERAL: No distress HEENT: Normocephalic, atraumatic, moist mucous membranes NECK: Supple CARDIOVASCULAR EXAMINATION: S1, S2, systolic murmur appreciated RESPIRATORY EXAMINATION: Clear to auscultation, no wheezing ABDOMINAL EXAMINATION: Soft, nontender, mildly distended, positive bowel sounds EXTREMITIES: Left upper extremity AV fistula, status post left lower extremity BKA SKIN: Wound on left lower extremity stump, without any drainage at this time, right foot wound with partial amputation of great toe and packing, foul-smel ling. NEUROLOGICAL EXAMINATION: Alert and oriented 3, no focal deficits PSYCHIATRIC EXAMINATION: Calm and cooperative LABORATORY DATA, IMAGING STUDIES, MICROBIOLOGY: Please see below. DVT prophylaxis ordered?: Yes ASSESSMENT AND PLAN: 68-year-old female with past medical history of end-stage renal disease, cirrhosis, hypertension, hypothyroidism, peripheral artery disease, diabetes mellitus and chronic hypertension is admitted for multiple wounds. PROBLEMS: 1. Multiple lower extremity and sacral wounds: Was following with Dr. Osorio in wound clinic, underwent partial amputation of wet gangrene yesterday. Plan for OR today, right great toe amputation. Antibiotic switched to Zyvox and meropenem given previous resistant organisms 2. End-stage renal disease. Usually gets hemodialysis Tuesday, Tuesday, Tuesday, compliance is an issue. Plan for hemodialysis tomorrow Continue Patiromer, Aransep and calcium carbonate 2. Cirrhosis: Gets weekly paracentesis, status post paracentesis yesterday, 7900 mL of fluid was removed. 3. Chronic hypotension: Continue Midodrine. Patient with low BP today, extra dose of midodrine was given with 250 mL fluid bolus followed by IV albumin to increase oncotic pressure. 4. Diabetes mellitus Continue Levemir 10 units twice a day Sliding scale insulin with fingersticks before every meal see and at bedtime 5. Hypothyroidism. Continue levothyroxine. 6. Peripheral artery disease. Status post right lower extremity angioplasty one week ago by interventional radiology. Continue simvastatin DVT prophylaxis: Heparin subcutaneous GI prophylaxis: Home PPI VS, I&O, 24H, Fishbone Vital Signs/I&O Vital Signs Date Time Temp Pulse Resp B/P (MAP) Pulse Ox O2 Delivery O2 Flow Rate FiO2 10/05/19 15:37 97.7 69 12 83/41 (55) 98 Room Air I&O- Last 24 Hours up to 6 AM 10/05/19 05:59 Intake Total 1170 ml Output Total 600 ml Balance 570 ml Laboratory Data 24H LABS Laboratory Tests 2 10/04/19 16:58: Bedside Glucose (Misc Panel) 203H 10/04/19 20:35: Bedside Glucose (Misc Panel) 218H 10/05/19 04:20: Bedside Glucose (Misc Panel) 396H 10/05/19 05:29: Nucleated Red Blood Cells % (auto) 0.0, Anion Gap 10, Glomerular Filtration Rate 7.1L, Calcium Level 6.2L, Phosphorus Level 5.9H, Magnesium Level 2.1, Albumin 1 .3L 10/05/19 10:35: Bedside Glucose (Misc Panel) 243H 10/05/19 12:05: Bedside Glucose (Misc Panel) 211H 10/05/19 16:47: Bedside Glucose (Misc Panel) 160H CBC/BMP Laboratory Tests 10/05/19 05:29 Microbiology Microbiology 10/05/19 Wound Culture, Received Pending 10/05/19 Anaerobic Culture, Received Pending 10/03/19 Blood Culture - Preliminary, Resulted No Growth after 48 hours. All Specime... 11/6/19 Blood Culture - Preliminary, Resulted No Growth after 48 hours. All Specime... MERLENE GAMEZ MD Oct 05, 2019 16:55
[2019-10-05] MEDS ORDERED: MIDODRINE 5 MG TAB PO ONE (17:00)
[2019-10-05] MEDS: NYSTATIN 100,000 UNITS/GM TOPICAL PWD 15 GM TOP PRN (21:31)
[2019-10-05] MEDS: traZODone 100 MG TAB PO SCH (21:47)
[2019-10-05] MEDS: MEROPENEM INJ 1 GM in IV 1 EA IV SCH (21:47)
[2019-10-05] MEDS: SIMVASTATIN 20 MG TAB PO SCH (21:47)
[2019-10-05] MEDS: GABAPENTIN 300 MG CAP PO SCH (21:47)
[2019-10-05] MEDS: oxyCODONE 5MG TAB PO PRN (22:45)
[2019-10-06 02:00] VITALS: BP 104/58
[2019-10-06] MEDS: LEVOTHYROXINE 125MCG TABLET (0.125MG) PO SCH (05:14)
[2019-10-06] MEDS: DULoxetine 30 MG CAP (CYMBALTA) PO SCH (05:14)
[2019-10-06] MEDS: PANTOPRAZOLE 40MG TAB (PROTONIX) PO SCH (05:15)
[2019-10-06] MEDS: rOPINIRole 2MG TAB PO SCH ×2 (05:15→21:18)
[2019-10-06] MEDS: MIDODRINE 5 MG TAB PO SCH ×3 (05:15→17:35)
[2019-10-06 06:00] VITALS: BP 102/57
[2019-10-06 06:57] LABS: HEMATOCRIT 34.9 % (36.0-47.0); HEMOGLOBIN 10.1 g/dl (12.0-15.5); MEAN CORPUSCULAR HEMOGLOBIN 27.7 pg (27.0-33.0); MEAN CORPUSCULAR HGB CONC 28.9 g/dl (32.0-36.5); MEAN CORPUSCULAR VOLUME 95.9 fl (80.0-96.0); PLATELET COUNT, AUTOMATED 142 10^3/uL (150-450); RED BLOOD COUNT 3.64 10^6/uL (4.00-5.40); WHITE BLOOD COUNT 10.1 10^3/uL (4.0-10.0)
[2019-10-06 07:22] LABS: ALBUMIN 1.6 GM/DL (3.2-5.2); CALCIUM LEVEL 5.8 MG/DL (8.8-10.2); CREATININE FOR GFR 6.69 MG/DL (0.55-1.30); GLOMERULAR FILTRATION RATE 6.5 (>39); PHOSPHORUS LEVEL 5.7 MG/DL (2.5-4.9); POTASSIUM SERUM 4.5 MEQ/L (3.5-5.1)
[2019-10-06] MEDS: CALCIUM CARBONATE 500 MG CHEW U/D PO SCH ×4 (08:12→21:17)
[2019-10-06] MEDS: LEVEMIR (INSULIN DETEMIR) 1 UNITS/0.01ML SC SCH ×2 (08:13→21:20)
[2019-10-06] MEDS: HumaLOG INSULIN (NovoLOG) PER UNIT SC SCH ×4 (08:13→21:00)
[2019-10-06] MEDS ORDERED: HEPARIN 1,000 UNITS/ML 10ML VIAL (FOR RADIOLOGY& DIALYSIS ONLY) IV ONE (10:00)
[2019-10-06] MEDS ORDERED: MIDODRINE 5 MG TAB PO ONE (10:15)
--- NOTE | 2019-10-06 11:05 | IPN ---
DATE: 10/06/2019 The patient is seen this morning at bedside and is postoperative day one right toe amputation. She reports no acute events overnight and reports no complications from the surgery. She does complain that her belly feels bigger. She is scheduled to have dialysis today as it was postponed yesterday. She is typically a Tuesday, Tuesday, Tuesday dialysis patient. OBJECTIVE: Vitals: Temperature 98.1, pulse 69, respiratory rate 18, blood pressure 102/57, pulse oximetry 96% on room air. Her output in the last 24 hours seems to only be 600 mL of emesis which she did not report to us. PHYSICAL EXAMINATION: General: Awake, alert and oriented, lying comfortably in bed in no acute distress. HEENT: Head is normocephalic, atraumatic. Extraocular muscles intact. Pupils equal, round and reactive to light. Mucous membranes moist. There is no jugular venous distention (JVD). Cardiovascular: Regular rate and rhythm. Normal S1 and S2. 1+ pitting edema of right lower extremity. Respiratory: Diminished breath sounds at bilateral bases. No wheezes, crackles or rhonchi. Abdomen: Soft. Nontender. Moderate to severely distended with positive bowel sounds. Musculoskeletal: The patient has left below knee amputation (BKA), right foot has wrapping around it status post right toe amputation. Neurologic: Patient is able to follow commands and move extremities. LAB REVIEW: White blood cell count 10.1, hemoglobin 10.1, hematocrit 34.9, platelet count 142. Sodium 134, potassium 4.5, chloride 99, CO2 23, BUN 61, creatinine 6.69, glucose 224, calcium 5.8, phosphorus 5.7, albumin 1.6 ASSESSMENT/PLAN: 1. End stage renal disease, on hemodialysis. Patient's regular days are Tuesday, Tuesday, Tuesday. Because she went to the operating room (OR) yesterday she did not have dialysis yesterday. She will be dialyzed this morning and then resume her normal schedule on Tuesday. 2. Right big toe gangrene. Patient is currently on IV Zyvox and meropenem. Being seen by infectious disease (ID) and podiatry. Patient is postop day one status post right toe amputation. 3. Chronic hypotension. We will continue current dose of midodrine 5 mg by mouth three times a day. 4. Anemia in end stage renal disease. Patient's hemoglobin continues to improve. Will continue current dose of Aranesp with dialysis. 5. Hypocalcemia. Corrected calcium 7.7, which is still low. We have increased her calcium carbonate (Tums) from once daily with a meal to 500 mg three times a day with meals. If it continues to stay low, we will increase this to 1 gram three times a day with meals.
[2019-10-06] MEDS: LINEZOLID 600 MG in IV 1 EA IV SCH ×2 (12:57→22:31)
[2019-10-06] MEDS: oxyCODONE 5MG TAB PO PRN ×2 (13:31→21:19)
[2019-10-06 14:00] VITALS: BP 113/57
--- NOTE | 2019-10-06 14:17 | IPNPDOC ---
Date Seen The patient was seen on 10/06/19. Progress Note SUBJECTIVE: 68-year-old female with past medical history of end-stage renal disease on dialysis, cirrhosis, diabetes mellitus, hypertension, hypothyroidism, peripheral artery disease, chronic hypotension, was admitted for bilateral lower extremity and sacral wounds. She underwent a partial amputation at Dr. Osorio's office yesterday, who then sent her to the hospital for further evaluation. She reports having worsening wounds noted. The past few months, underwent an angioplasty of the right lower extremity at one week ago by interventional radiology. Otherwise, she is currently comfortable and without any complaints, reports mild pain/discomfort in her wounds. She denies any shortness of breath, chest pain, nausea, vomiting, abdominal pain or diarrhea. She usually gets weekly paracentesis on , has 5-6 L drained on average, scheduled for paracentesis today by IR. 10/05/2019 Patient scheduled for or today, 7900 mL of fluid was removed during paracentesis yesterday, patient feels weak and short of breath, no other complaints. 10/06/2019 Patient seen during dialysis today, feels weak and tired, no other complaints at this time. She denies any shortness of breath, chest pain, vomiting, abdominal pain or diarrhea. 10 point review of system was negative except for above PHYSICAL EXAMINATION: VITAL SIGNS: Please see below. GENERAL: No distress HEENT: Normocephalic, atraumatic, moist mucous membranes NECK: Supple CARDIOVASCULAR EXAMINATION: S1, S2, systolic murmur appreciated RESPIRATORY EXAMINATION: Clear to auscultation, no wheezing ABDOMINAL EXAMINATION: Soft, nontender, mildly distended, positive bowel sounds EXTREMITIES: Left upper extremity AV fistula, status post left lower extremity BKA SKIN: Bilateral lower extremity wounds with dressing in place, clean, dry and intact. NEUROLOGICAL EXAMINATION: Alert and oriented 3, no focal deficits PSYCHIATRIC EXAMINATION: Calm and cooperative LABORATORY DATA, IMAGING STUDIES, MICROBIOLOGY: Please see below. DVT prophylaxis ordered?: Yes ASSESSMENT AND PLAN: 68-year-old female with past medical history of end-stage renal disease, cirrhosis, hypertension, hypothyroidism, peripheral artery disease, diabetes mellitus and chronic hypertension is admitted for multiple wounds. PROBLEMS: 1. Multiple lower extremity and sacral wounds: Was following with Dr. Osorio in wound clinic, underwent partial amputation of wet gangrene prior to admission, followed by Ray amputation yesterday. OR cultures pending, continue empiric Zyvox and Merrem. ID following 2. End-stage renal disease. Usually gets hemodialysis Tuesday, Tuesday, Tuesday, compliance is an issue. Status post hemodialysis today, calcium carbonate dose increased due to mild hypocalcemia. Continue Patiromer, Aransep 2. Cirrhosis: Gets weekly paracentesis, status post paracentesis on , 7900 mL removed. 3. Chronic hypotension: Continue Midodrine. Patient with low BP today, extra dose of midodrine was given, continue midodrine 5 mg 3 times a day. 4. Diabetes mellitus Increased Levemir to 12 units twice a day. Sliding scale insulin with fingersticks before every meal see and at bedtime 5. Hypothyroidism. Continue levothyroxine. 6. Peripheral artery disease. Status post right lower extremity angioplasty one week ago by interventional radiology. Continue simvastatin DVT prophylaxis: Heparin subcutaneous GI prophylaxis: Home PPI VS, I&O, 24H, Fishbone Vital Signs/I&O Vital Signs Date Time Temp Pulse Resp B/P (MAP) Pulse Ox O2 Delivery O2 Flow Rate FiO2 10/06/19 13:31 18 10/06/19 06:00 98.1 69 102/57 (72) 96 Room Air I&O- Last 24 Hours up to 6 AM 10/06/19 06:00 Intake Total 1630.0 ml Output Total 9 ml Balance 1621.0 ml Laboratory Data 24H LABS Laboratory Tests 2 10/05/19 16:47: Bedside Glucose (Misc Panel) 160H 10/05/19 21:09: Bedside Glucose (Misc Panel) 183H 10/06/19 06:21: Nucleated Red Blood Cells % (auto) 0.0, Anion Gap 12, Glomerular Filtration Rate 6.5L, Calcium Level 5.8*L, Phosphorus Level 5.7H, Albumin 1.6#L 10/06/19 06:28: Bedside Glucose (Misc Panel) 208H 10/06/19 12:50: Bedside Glucose (Misc Panel) 197H CBC/BMP Laboratory Tests 10/06/19 06:21 Microbiology Microbiology 10/05/19 Wound Culture, Received Pending 10/05/19 Anaerobic Culture, Received Pending 10/03/19 Blood Culture - Preliminary, Resulted 10/03/19 Blood Culture - Preliminary, Resulted No Growth after 72 hours. All specime... MERLENE GAMEZ MD Oct 06, 2019 14:17
[2019-10-06 18:00] VITALS: BP 114/57
[2019-10-06] MEDS: traZODone 100 MG TAB PO SCH (21:17)
[2019-10-06] MEDS: GABAPENTIN 300 MG CAP PO SCH (21:18)
[2019-10-06] MEDS: SIMVASTATIN 20 MG TAB PO SCH (21:18)
[2019-10-06] MEDS: MEROPENEM INJ 1 GM in IV 1 EA IV SCH (21:20)
[2019-10-06 22:00] VITALS: BP 119/53
[2019-10-06 22:01] LABS: CLOSTRIDIUM DIFFICILE PCR POSITIVE (NEGATIVE)
[2019-10-07] VITALS (8 sets, daily range): BP systolic 85–115; BP diastolic 44–94
[2019-10-07] MEDS: LEVOTHYROXINE 125MCG TABLET (0.125MG) PO SCH (05:51)
[2019-10-07 06:29] LABS: HEMATOCRIT 33.3 % (36.0-47.0); HEMOGLOBIN 9.9 g/dl (12.0-15.5); MEAN CORPUSCULAR HEMOGLOBIN 28.9 pg (27.0-33.0); MEAN CORPUSCULAR HGB CONC 29.7 g/dl (32.0-36.5); MEAN CORPUSCULAR VOLUME 97.1 fl (80.0-96.0); PLATELET COUNT, AUTOMATED 143 10^3/uL (150-450); RED BLOOD COUNT 3.43 10^6/uL (4.00-5.40); WHITE BLOOD COUNT 20.1 10^3/uL (4.0-10.0)
[2019-10-07 06:51] LABS: ALBUMIN 1.5 GM/DL (3.2-5.2); CALCIUM LEVEL 6.4 MG/DL (8.8-10.2); GLOMERULAR FILTRATION RATE 9.1 (>39); PHOSPHORUS LEVEL 5.1 MG/DL (2.5-4.9); POTASSIUM SERUM 4.4 MEQ/L (3.5-5.1)
[2019-10-07] MEDS: HumaLOG INSULIN (NovoLOG) PER UNIT SC SCH ×4 (07:55→21:00)
[2019-10-07] MEDS: rOPINIRole 2MG TAB PO SCH ×2 (07:56→22:01)
[2019-10-07] MEDS: DULoxetine 30 MG CAP (CYMBALTA) PO SCH (07:56)
[2019-10-07] MEDS: CALCIUM CARBONATE 500 MG CHEW U/D PO SCH ×3 (07:56→22:01)
[2019-10-07] MEDS: MIDODRINE 5 MG TAB PO SCH ×3 (07:56→18:37)
[2019-10-07] MEDS: LEVEMIR (INSULIN DETEMIR) 1 UNITS/0.01ML SC SCH ×2 (07:56→22:02)
[2019-10-07] MEDS: PANTOPRAZOLE 40MG TAB (PROTONIX) PO SCH (07:56)
[2019-10-07] MEDS: oxyCODONE 5MG TAB PO PRN ×2 (08:49→15:04)
[2019-10-07] MEDS: LINEZOLID 600 MG in IV 1 EA IV SCH ×2 (10:18→23:07)
[2019-10-07] MEDS: VANCOMYCIN ORAL SOL 250MG/5ML ORAL SYRINGE PO SCH ×3 (10:47→22:01)
--- NOTE | 2019-10-07 11:36 | REP ---
Supine abdomen two views: Comparison is the abdomen/pelvis CT dated 09/06/2019. The bowel gas pattern is normal. There are no calcifications. The skeletal structures and soft tissues are otherwise unremarkable. Impression: Normal bowel gas pattern. Electronically Signed by Aureliano Banks MD 10/07/2019 11:27 A
--- NOTE | 2019-10-07 13:25 | IPN ---
DATE OF SERVICE: 10/07/2019 SUBJECTIVE: Dalila is seen and examined this morning at the bedside. She was dialyzed yesterday with 1500 mL of fluid removed. She complains of pain in the left [id number] amputation, otherwise denies any shortness of breath, chest pain or other complaint. OBJECTIVE: Temperature 98.5, pulse 76, respiratory rate 18, blood pressure 93/45, saturating 96% on room air. Intake yesterday was 1500. Dialysis yesterday removed 1500. Weight in the bed scale today is 80 kg. General: The patient is seen lying in bed. Elderly female who appears chronically ill. Extraocular muscles are intact. Tongue is moist. Neck is supple. Jugular veins are elevated. Cardiac: S1 and S2, 1+ pitting edema in the lower extremities, more pronounced on the right. Respiratory: Diminished breath sounds at the bases. No wheeze or crackle. Abdomen is soft and nontender. There is ascitic fluid in situ. Musculoskeletal: The patient has a left [id number] amputation and the right lower extremity has dressings. There is 1+ edema. There is a left upper extremity fistula with thrill and bruit. Neurologic: The patient is oriented times three and at baseline mentation. LABS: White count 20.1, hemoglobin 9.9, platelet 143, sodium 136, potassium 4.4, albumin 1.5. KUB done today with normal bowel gas pattern. INPATIENT MEDICATIONS: Reviewed by myself. She was started on Tums 500 mg by mouth three times a day with meals. Her insulin was adjusted by the primary team and she is receiving oral vancomycin 125 mg by mouth every 6 hours. Remainder medications are unchanged from prior. PROBLEMS: 1. End-stage renal disease on hemodialysis on a Tuesday, Tuesday, Tuesday schedule. She is hypervolemic on exam. She is unusually noncompliant with dialysis in the outpatient setting. She received a treatment on Tuesday and her next treatment will be on Tuesday. Continue with 1200 mL fluid restriction. Her electrolytes are acceptable and her fistula is in good use. 2. Diastolic congestive heart failure. She is mildly volume overloaded. Continue with fluid restriction and continue with fluid removal with hemodialysis. She did receive an extra treatment on Tuesday. 3. Secondary hyperparathyroidism of renal origin. Her corrected calcium is 8.4 when accounting for albumin of 1.5 and her phosphorus is acceptable at 5.1. Continue with calcium carbonate three times a day. 4. Anemia of chronic kidney disease and also related to iron deficiency and chronic inflammatory state. Her serum ferritin is more than 1500, so although her iron is low will hold off on Venofer given the elevated ferritin and the infection. Continue with Aranesp with dialysis. 5. Chronic hypotension. Continue current dose of midodrine. We will continue to remove fluid as tolerated by her hemodynamics on dialysis days. 6. Protein calorie malnutrition, albumin of 1.5 and wounds. Continue with Nepro with diet.
[2019-10-07] MEDS ORDERED: MIDODRINE 5 MG TAB PO ONE (14:30)
--- NOTE | 2019-10-07 14:41 | IPNPDOC ---
Date Seen The patient was seen on 10/07/19. Progress Note SUBJECTIVE: 68-year-old female with past medical history of end-stage renal disease on dialysis, cirrhosis, diabetes mellitus, hypertension, hypothyroidism, peripheral artery disease, chronic hypotension, was admitted for bilateral lower extremity and sacral wounds. She underwent a partial amputation at Dr. Osorio's office yesterday, who then sent her to the hospital for further evaluation. She reports having worsening wounds noted. The past few months, underwent an angioplasty of the right lower extremity at one week ago by interventional radiology. Otherwise, she is currently comfortable and without any complaints, reports mild pain/discomfort in her wounds. She denies any shortness of breath, chest pain, nausea, vomiting, abdominal pain or diarrhea. She usually gets weekly paracentesis on , has 5-6 L drained on average, scheduled for paracentesis today by IR. 10/05/2019 Patient scheduled for or today, 7900 mL of fluid was removed during paracentesis yesterday, patient feels weak and short of breath, no other complaints. 10/06/2019 Patient seen during dialysis today, feels weak and tired, no other complaints at this time. She denies any shortness of breath, chest pain, vomiting, abdominal pain or diarrhea. 10/07/2019 Patient reports mild abdominal pain and worsening distention since yesterday, reports worsening pain in the left stump upon waking this morning. She has no other complaints at this time, denies shortness of breath, chest pain, nausea or vomiting. She continues to have loose stool. 10 point review of system was negative except for above PHYSICAL EXAMINATION: VITAL SIGNS: Please see below. GENERAL: No distress HEENT: Normocephalic, atraumatic, moist mucous membranes NECK: Supple CARDIOVASCULAR EXAMINATION: S1, S2, systolic murmur appreciated RESPIRATORY EXAMINATION: Clear to auscultation, no wheezing ABDOMINAL EXAMINATION: Soft, mild diffuse tenderness, mildly distended, positive bowel sounds EXTREMITIES: Left upper extremity AV fistula, status post left lower extremity BKA SKIN: Bilateral lower extremity wounds with dressing in place, clean, dry and intact. NEUROLOGICAL EXAMINATION: Alert and oriented 3, no focal deficits PSYCHIATRIC EXAMINATION: Calm and cooperative LABORATORY DATA, IMAGING STUDIES, MICROBIOLOGY: Please see below. DVT prophylaxis ordered?: Yes ASSESSMENT AND PLAN: 68-year-old female with past medical history of end-stage renal disease, cirrhosis, hypertension, hypothyroidism, peripheral artery dis ease, diabetes mellitus and chronic hypertension is admitted for multiple wounds. PROBLEMS: 1. Multiple lower extremity and sacral wounds: Was following with Dr. Osorio in wound clinic, underwent partial amputation of wet gangrene prior to admission, status post ray amputation of right foot big toe. OR cultures growing enterococcus and Corynebacterium, continue Zyvox and Merrem. Stool PCR positive for C. difficile, start by mouth vancomycin. KUB done for abdominal distention/pain to assess for possible toxic megacolon, x-rays is benign, we'll continue to monitor for worsening abdominal symptoms and get CT of the abdomen & pelvis, if indicated. ID following 2. End-stage renal disease. Usually gets hemodialysis Tuesday, Tuesday, Tuesday, compliance is an issue. Next hemodialysis session is tomorrow, calcium carbonate dose increased due to mild hypocalcemia. Continue Patiromer, Aransep 2. Cirrhosis: Gets weekly paracentesis, status post paracentesis on , 7900 mL removed. 3. Chronic hypotension: Continue Midodrine. Patient with low BP today, extra dose of midodrine was given, continue midodrine 5 mg 3 times a day. 4. Diabetes mellitus Increased Levemir to 14 units twice a day. Sliding scale insulin with fingersticks before every meal see and at bedtime 5. Hypothyroidism. Continue levothyroxine. 6. Peripheral artery disease. Status post right lower extremity angioplasty one week ago by interventional radiology. Continue simvastatin DVT prophylaxis: Heparin subcutaneous GI prophylaxis: Home PPI VS, I&O, 24H, Hannah Vital Signs/I&O Vital Signs Date Time Temp Pulse Resp B/P (MAP) Pulse Ox O2 Delivery O2 Flow Rate FiO2 10/07/19 10:00 98.3 76 18 114/94 (101) 95 Room Air I&O- Last 24 Hours up to 6 AM 10/07/19 06:00 Intake Total 1500 ml Output Total 1500 ml Balance 0 ml Laboratory Data 24H LABS Laboratory Tests 2 10/06/19 16:26: Bedside Glucose (Misc Panel) 345H 10/06/19 20:12: Bedside Glucose (Misc Panel) 144H 10/06/19 20:44: Clostridium difficile [id number] PRESUMPTIVE NEGATIVE, Clostridium difficile Toxin (PCR) POSITIVEA 10/07/19 06:09: Nucleated Red Blood Cells % (auto) 0.0, Anion Gap 9, Glomerular Filtration Rate 9.1L, Calcium Level 6.4L, Phosphorus Level 5.1H, Albumin 1.5L 10/07/19 11:41: Bedside Glucose (Misc Panel) 134H CBC/BMP Laboratory Tests 10/07/19 06:09 Microbiology Microbiology 10/05/19 Wound Culture - Final, Resulted Enterococcus Faecalis Corynebacterium Species 10/05/19 Anaerobic Culture, Resulted Pending 10/03/19 Blood Culture - Preliminary, Resulted 10/03/19 Blood Culture - Preliminary, Resulted No Growth after 72 hours. All specime... MERLENE GAMEZ MD Oct 07, 2019 14:40
[2019-10-07] MEDS: GABAPENTIN 300 MG CAP PO SCH (22:00)
[2019-10-07] MEDS: traZODone 100 MG TAB PO SCH (22:00)
[2019-10-07] MEDS: SIMVASTATIN 20 MG TAB PO SCH (22:01)
[2019-10-07] MEDS: MEROPENEM INJ 1 GM in IV 1 EA IV SCH (22:02)
[2019-10-07] MEDS: NYSTATIN 100,000 UNITS/GM TOPICAL PWD 15 GM TOP PRN (22:03)
[2019-10-08] VITALS (10 sets, daily range): BP systolic 84–126; BP diastolic 46–63
[2019-10-08] MEDS: VANCOMYCIN ORAL SOL 250MG/5ML ORAL SYRINGE PO SCH ×4 (03:16→21:22)
[2019-10-08] MEDS: oxyCODONE 5MG TAB PO PRN ×2 (03:17→14:27)
[2019-10-08] MEDS: PANTOPRAZOLE 40MG TAB (PROTONIX) PO SCH (05:16)
[2019-10-08] MEDS: LEVOTHYROXINE 125MCG TABLET (0.125MG) PO SCH (05:16)
[2019-10-08] MEDS: CALCIUM CARBONATE 500 MG CHEW U/D PO SCH ×3 (05:17→21:22)
[2019-10-08] MEDS: MIDODRINE 5 MG TAB PO SCH ×3 (05:17→14:27)
[2019-10-08] MEDS: DULoxetine 30 MG CAP (CYMBALTA) PO SCH (05:17)
[2019-10-08] MEDS: rOPINIRole 2MG TAB PO SCH ×2 (05:17→21:22)
[2019-10-08 06:42] LABS: HEMATOCRIT 32.9 % (36.0-47.0); HEMOGLOBIN 9.7 g/dl (12.0-15.5); MEAN CORPUSCULAR HEMOGLOBIN 28.5 pg (27.0-33.0); MEAN CORPUSCULAR HGB CONC 29.5 g/dl (32.0-36.5); MEAN CORPUSCULAR VOLUME 96.8 fl (80.0-96.0); PLATELET COUNT, AUTOMATED 166 10^3/uL (150-450); WHITE BLOOD COUNT 15.9 10^3/uL (4.0-10.0)
[2019-10-08 07:03] LABS: ALBUMIN 1.5 GM/DL (3.2-5.2); CALCIUM LEVEL 5.9 MG/DL (8.8-10.2); CREATININE FOR GFR 5.79 MG/DL (0.55-1.30); GLOMERULAR FILTRATION RATE 7.7 (>39); PHOSPHORUS LEVEL 6.4 MG/DL (2.5-4.9); POTASSIUM SERUM 4.4 MEQ/L (3.5-5.1)
[2019-10-08] MEDS: HumaLOG INSULIN (NovoLOG) PER UNIT SC SCH ×4 (07:30→21:00)
[2019-10-08] MEDS: LINEZOLID 600 MG in IV 1 EA IV SCH ×2 (08:03→22:08)
[2019-10-08] MEDS: LEVEMIR (INSULIN DETEMIR) 1 UNITS/0.01ML SC SCH ×2 (08:03→21:23)
[2019-10-08] MEDS ORDERED: HEPARIN 1,000 UNITS/ML 10ML VIAL (FOR RADIOLOGY& DIALYSIS ONLY) IV ONE (12:00)
--- NOTE | 2019-10-08 12:52 | IPN ---
DATE: 10/08/2019 SUBJECTIVE: Patient is seen and examined this morning in dialysis. She reports that she is having pain at her stump in her knee and is also complaining of watery diarrhea and is concerned that it is being caused by the vancomycin, which is why she refused the vancomycin this morning. Her blood pressures are soft at dialysis, and she feels like her stomach is quite large. OBJECTIVE: Vital signs: Temperature of 96.9, pulse of 78, respiratory rate of 16, blood pressure 103/59, saturating 98% on room air. Incidental note: Patient has had seven bowel movements in the last 24 hours. PHYSICAL EXAM: General: Patient is lying in dialysis bed, is awake, alert, and chronic-ill appearing. Extraocular muscles intact. Pupils equal, round, and reactive to light. Tongue is moist. Neck supple. Elevated JVP. Cardiac: Regular rate and rhythm. Normal S1 and S2. 1+ pitting edema in lower extremities, right greater than left. Respiratory: Diminished breath sounds at bilateral bases with no wheezes, crackles, or rhonchi. Abdomen: Soft. Mildly tender to palpation. Moderately distended. Ascitic fluid in situ. Musculoskeletal: Patient has left below knee amputation (BKA) and right lower extremity has dressings around the foot. There is 1+ edema. Left upper extremity fistula with thrill and bruit, working well. Neurologic: Patient is oriented times three and at mental baseline. No focal neurologic deficits. LABS: White blood cell count of 15.9, hemoglobin of 9.7, hematocrit of 32.9, platelet count of 166. Sodium of 136, potassium 4.4, chloride of 101, bicarbonate of 26, BUN of 49, creatinine of 5.79, glucose of 51, calcium of 5.9, phosphorus of 6.4, albumin of 1.5, PTH intact of 183. ASSESSMENT AND PLAN: 1. End-stage renal disease, on hemodialysis Tuesday, Tuesday, Tuesday schedule. We are adding albumin with her dialysis as she has low albumin and her blood pressures have been extremely soft, likely secondary to her watery diarrhea and her ascites. We will continue on regular schedule. Patient is okay to be receiving Nepro with each meal and have it not count towards her 1200 mL fluid restriction. Patient's consent has been signed for her to receive albumin. 2. Diastolic congestive heart failure. She continues to be mild to moderately volume overloaded. We will continue with her 1200 mL fluid restriction and attempt fluid removal with hemodialysis but plan on adding on albumin so we can pull off more. This is difficult because of her soft blood pressures. 3. Secondary hyperparathyroidism of renal origin. Her corrected calcium this morning is 8.1, when accounting for albumin of 1.5, her phosphorus is acceptable this morning. We will continue with calcium carbonate three times a day. Her intact PTH is elevated. 4. Anemia of chronic kidney disease and also secondary to iron deficiency and chronic inflammatory state. We will continue with her Aranesp while she is receiving dialysis. 5. Chronic hypotension. She is currently on midodrine three times daily. We will continue to remove fluid as tolerated and, hopefully, this will improve after we add albumin on her dialysis days. 6. Protein calorie malnutrition, albumin of 1.5 with wounds. Patient is okay to continue on one can of Nepro with meals.
--- NOTE | 2019-10-08 13:57 | IPNPDOC ---
Date Seen The patient was seen on 10/08/19. Progress Note SUBJECTIVE: 68-year-old female with past medical history of end-stage renal disease on dialysis, cirrhosis, diabetes mellitus, hypertension, hypothyroidism, peripheral artery disease, chronic hypotension, was admitted for bilateral lower extremity and sacral wounds. She underwent a partial amputation at Dr. Osorio's office yesterday, who then sent her to the hospital for further evaluation. She reports having worsening wounds noted. The past few months, underwent an angioplasty of the right lower extremity at one week ago by interventional radiology. Otherwise, she is currently comfortable and without any complaints, reports mild pain/discomfort in her wounds. She denies any shortness of breath, chest pain, nausea, vomiting, abdominal pain or diarrhea. She usually gets weekly paracentesis on , has 5-6 L drained on average, scheduled for paracentesis today by IR. 10/08/2019 Patient seen in dialysis unit, undergoing dialysis, received 150 g of albumin during dialysis to augment removal of fluid. She reports feeling fatigued, continues to have diarrhea, pain at her wounds, reports increased abdominal distention from baseline. She denies any chest pain, nausea, vomiting or significant abdominal pain. 10 point review of system was negative except for above PHYSICAL EXAMINATION: VITAL SIGNS: Please see below. GENERAL: No distress HEENT: Normocephalic, atraumatic, moist mucous membranes NECK: Supple CARDIOVASCULAR EXAMINATION: S1, S2, systolic murmur appreciated RESPIRATORY EXAMINATION: Clear to auscultation, no wheezing ABDOMINAL EXAMINATION: Soft, mild diffuse tenderness, distended, positive bowel sounds, significant flank edema. EXTREMITIES: Left upper extremity AV fistula, status post left lower extremity BKA SKIN: Bilateral lower extremity wounds with dressing in place, clean, dry and intact. NEUROLOGICAL EXAMINATION: Alert and oriented 3, no focal deficits PSYCHIATRIC EXAMINATION: Calm and cooperative LABORATORY DATA, IMAGING STUDIES, MICROBIOLOGY: Please see below. DVT prophylaxis ordered?: Yes ASSESSMENT AND PLAN: 68-year-old female with past medical history of end-stage renal disease, cirrhosis, hypertension, hypothyroidism, peripheral artery disease, diabetes mellitus and chronic hypertension is admitted for multiple wounds. PROBLEMS: 1. Multiple lower extremity and sacral wounds: Was following with Dr. Osorio in wound clinic, underwent partial amputation of wet gangrene prior to admission, status post ray amputation of right foot big toe. OR cultures growing enterococcus and Corynebacterium, continue Zyvox and Merr em. Stool PCR positive for C. difficile, continue oral vancomycin. ID following 2. End-stage renal disease. Usually gets hemodialysis Tuesday, Tuesday, Tuesday, compliance is an issue. Hemodialysis today, further sessions per nephrology. Continue Patiromer, Aransep and calcium carbonate. 2. Cirrhosis: Gets weekly paracentesis, status post paracentesis on , 7900 mL removed. Abdomen significantly distended, will consider moving up paracentesis date from to tomorrow. 3. Chronic hypotension: Continue Midodrine 5 mg 3 times a day 4. Diabetes mellitus Continue Levemir 14 units twice a day. Sliding scale insulin with fingersticks before every meal see and at bedtime 5. Hypothyroidism. Continue levothyroxine. 6. Peripheral artery disease. Status post right lower extremity angioplasty one week ago by interventional radiology. Continue simvastatin DVT prophylaxis: Heparin subcutaneous GI prophylaxis: Pepcid VS, I&O, 24H, Fishbone Vital Signs/I&O Vital Signs Date Time Temp Pulse Resp B/P (MAP) Pulse Ox O2 Delivery O2 Flow Rate FiO2 10/08/19 11:16 96.9 78 103/58 Nasal Cannula 2.0 10/08/19 11:15 16 10/08/19 11:10 2 I&O- Last 24 Hours up to 6 AM 10/08/19 05:59 Intake Total 1110 ml Output Total 0 ml Balance 1110 ml Laboratory Data 24H LABS Laboratory Tests 2 10/07/19 16:54: Bedside Glucose (Misc Panel) 191H 10/07/19 20:51: Bedside Glucose (Misc Panel) 105 10/08/19 06:22: Nucleated Red Blood Cells % (auto) 0.0, Anion Gap 9, Glomerular Filtration Rate 7.7L, Calcium Level 5.9*L, Phosphorus Level 6.4#H, Albumin 1.5L, Parathyroid Hormone (Intact) 183.0H CBC/BMP Laboratory Tests 10/08/19 06:22 Microbiology Microbiology 10/07/19 Wound Culture, Received Pending 10/05/19 Wound Culture - Final, Resulted Enterococcus Faecalis Corynebacterium Species 10/05/19 Anaerobic Culture, Resulted Pending 10/03/19 Blood Culture - Final, Complete Corynebacterium Sp. Not Jk 10/03/19 Blood Culture - Final, Complete NO GROWTH AFTER 5 DAYS MERLENE GAMEZ MD Oct 08, 2019 13:57
[2019-10-08] MEDS: CALCITRIOL 0.25 MCG CAP (S0169) PO SCH (14:26)
[2019-10-08] MEDS: MORPHINE 2 MG/ML 1ML VIAL (J2270) IV PRN (17:10)
[2019-10-08] MEDS: traZODone 100 MG TAB PO SCH (21:22)
[2019-10-08] MEDS: GABAPENTIN 300 MG CAP PO SCH (21:22)
[2019-10-08] MEDS: SIMVASTATIN 20 MG TAB PO SCH (21:22)
[2019-10-08] MEDS: MEROPENEM INJ 1 GM in IV 1 EA IV SCH (21:22)
[2019-10-09] MEDS: oxyCODONE 5MG TAB PO PRN ×3 (00:49→15:13)
[2019-10-09 02:00] VITALS: BP 105/56
[2019-10-09] MEDS: VANCOMYCIN ORAL SOL 250MG/5ML ORAL SYRINGE PO SCH ×4 (02:54→22:15)
[2019-10-09] MEDS: LEVOTHYROXINE 125MCG TABLET (0.125MG) PO SCH (05:47)
[2019-10-09 05:49] VITALS: BP 105/54
[2019-10-09 06:54] LABS: HEMATOCRIT 33.6 % (36.0-47.0); HEMOGLOBIN 10.1 g/dl (12.0-15.5); MEAN CORPUSCULAR HEMOGLOBIN 28.9 pg (27.0-33.0); MEAN CORPUSCULAR HGB CONC 30.1 g/dl (32.0-36.5); PLATELET COUNT, AUTOMATED 155 10^3/uL (150-450); WHITE BLOOD COUNT 10.6 10^3/uL (4.0-10.0)
[2019-10-09 07:23] LABS: CREATININE FOR GFR 4.34 MG/DL (0.55-1.30); GLOMERULAR FILTRATION RATE 10.7 (>39); PHOSPHORUS LEVEL 5.4 MG/DL (2.5-4.9); POTASSIUM SERUM 3.9 MEQ/L (3.5-5.1)
[2019-10-09] MEDS: HumaLOG INSULIN (NovoLOG) PER UNIT SC SCH ×4 (07:30→21:00)
[2019-10-09] MEDS: LINEZOLID 600 MG in IV 1 EA IV SCH ×2 (09:22→22:11)
[2019-10-09] MEDS: MIDODRINE 5 MG TAB PO SCH ×3 (09:24→15:12)
[2019-10-09] MEDS: DULoxetine 30 MG CAP (CYMBALTA) PO SCH (09:24)
[2019-10-09] MEDS: rOPINIRole 2MG TAB PO SCH ×2 (09:24→22:12)
[2019-10-09] MEDS: LEVEMIR (INSULIN DETEMIR) 1 UNITS/0.01ML SC SCH ×2 (09:24→22:14)
[2019-10-09] MEDS: CALCIUM CARBONATE 500 MG CHEW U/D PO SCH ×3 (09:24→22:12)
[2019-10-09] MEDS: CALCITRIOL 0.25 MCG CAP (S0169) PO SCH (09:24)
[2019-10-09] MEDS: FAMOTIDINE 20 MG TAB PO SCH (09:25)
[2019-10-09] MEDS: NYSTATIN 100,000 UNITS/GM TOPICAL PWD 15 GM TOP PRN (09:26)
[2019-10-09 10:01] VITALS: BP 117/65
--- NOTE | 2019-10-09 13:16 | REP ---
Two views right foot: 10/09/2019. Indication: Postoperative assessment. Comparison: 10/04/2019. Findings: Acute postoperative sequelae are present status post amputation of the distal first metatarsal and phalanges. The study otherwise remains stable. Impression: Expected postoperative sequelae status post partial amputation of the right great toe. Electronically Signed by Flavio Lowery DO 10/09/2019 01:07 P
[2019-10-09 14:08] VITALS: BP 110/56
--- NOTE | 2019-10-09 14:23 | IPNPDOC ---
Date Seen The patient was seen on 10/09/19. Progress Note SUBJECTIVE: 68-year-old female with past medical history of end-stage renal disease on dialysis, cirrhosis, diabetes mellitus, hypertension, hypothyroidism, peripheral artery disease, chronic hypotension, was admitted for bilateral lower extremity and sacral wounds. She underwent a partial amputation at Dr. Osorio's office yesterday, who then sent her to the hospital for further evaluation. She reports having worsening wounds noted. The past few months, underwent an angioplasty of the right lower extremity at one week ago by interventional radiology. Otherwise, she is currently comfortable and without any complaints, reports mild pain/discomfort in her wounds. She denies any shortness of breath, chest pain, nausea, vomiting, abdominal pain or diarrhea. She usually gets weekly paracentesis on , has 5-6 L drained on average, scheduled for paracentesis today by IR. 10/08/2019 Patient seen in dialysis unit, undergoing dialysis, received 150 g of albumin during dialysis to augment removal of fluid. She reports feeling fatigued, continues to have diarrhea, pain at her wounds, reports increased abdominal distention from baseline. She denies any chest pain, nausea, vomiting or significant abdominal pain. 10/09/2019 Patient seen in her room, continues to report abdominal distention with abdominal pain, reports right hip/leg pain as well, no additional complaints. She denies any shortness of breath, nausea, vomiting or headache. She continues to have diarrhea. 10 point review of system was negative except for above PHYSICAL EXAMINATION: VITAL SIGNS: Please see below. GENERAL: No distress HEENT: Normocephalic, atraumatic, moist mucous membranes NECK: Supple CARDIOVASCULAR EXAMINATION: S1, S2, systolic murmur appreciated RESPIRATORY EXAMINATION: Scattered rhonchi, no wheezing ABDOMINAL EXAMINATION: Soft, mild diffuse tenderness, distended, positive bowel sounds, significant flank edema. EXTREMITIES: Left upper extremity AV fistula, status post left lower extremity BKA, right hip/thigh with mild tenderness to palpation, diffuse lower extremity edema. SKIN: Bilateral lower extremity wounds with dressing in place, clean, dry and intact. NEUROLOGICAL EXAMINATION: Alert and oriented 3, no focal deficits PSYCHIATRIC EXAMINATION: Calm and cooperative LABORATORY DATA, IMAGING STUDIES, MICROBIOLOGY: Please see below. DVT prophylaxis ordered?: Yes ASSESSMENT AND PLAN: 68-year-old female with past medical history of end-stage renal disease, cirrhosis, hypertension, hypothyroidism, peripheral artery disease, diabetes mellitus and chronic hypertension is admitted for multiple wounds. PROBLEMS: 1. Multiple lower extremity and sacral wounds: Was following with Dr. Osorio in wound clinic, underwent partial amputation of wet gangrene prior to admission, status post ray amputation of right foot big toe. OR cultures growing enterococcus and Corynebacterium, continue Zyvox, discontinued Merrem. Stool PCR positive for C. difficile, continue oral vancomycin. ID following Reporting right hip/proximal right lower extremity pain, significant edema appreciated, lower extremity Doppler ordered. 2. End-stage renal disease. Usually gets hemodialysis Tuesday, Tuesday, Tuesday, compliance is an issue. HD per nephrology. Continue Patiromer, Aransep and calcium carbonate. 2. Cirrhosis: Gets weekly paracentesis, status post paracentesis on , 7900 mL removed. Abdomen significantly distended, will get paracentesis today. 3. Chronic hypotension: Continue Midodrine 5 mg 3 times a day 4. Diabetes mellitus Continue Levemir 14 units twice a day. Sliding scale insulin with fingersticks before every meal see and at bedtime 5. Hypothyroidism. Continue levothyroxine. 6. Peripheral artery disease. Status post right lower extremity angioplasty one week ago by interventional radiology. 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 GI prophylaxis: Pepcid VS, I&O, 24H, Fishbone Vital Signs/I&O Vital Signs Date Time Temp Pulse Resp B/P (MAP) Pulse Ox O2 Delivery O2 Flow Rate FiO2 10/09/19 10:01 97.6 74 20 117/65 (82) 97 Room Air 10/08/19 11:45 2.0 I&O- Last 24 Hours up to 6 AM 10/09/19 06:00 Intake Total 1400.0 ml Output Total 1500 ml Balance -100.0 ml Laboratory Data 24H LABS Laboratory Tests 2 10/08/19 16:27: Bedside Glucose (Misc Panel) 82L 10/08/19 21:01: Bedside Glucose (Misc Panel) 179H 10/09/19 00:17: Bedside Glucose (Misc Panel) 183H 10/09/19 06:18: Bedside Glucose (Misc Panel) 97 10/09/19 06:44: Nucleated Red Blood Cells % (auto) 0.2H, Anion Gap 8, Glomerular Filtration Rate 10.7L, Calcium Level 7.0#L, Phosphorus Level 5.4H, Albumin 2.0#L 10/09/19 11:04: Bedside Glucose (Misc Panel) 336H CBC/BMP Laboratory Tests 10/09/19 06:44 Microbiology Microbiology 10/07/19 Wound Culture - Final, Complete 10/05/19 Wound Culture - Final, Resulted Enterococcus Faecalis Corynebacterium Species 10/05/19 Anaerobic Culture, Resulted Pending 10/03/19 Blood Culture - Final, Complete Corynebacterium Sp. Not Jk 10/03/19 Blood Culture - Final, Complete NO GROWTH AFTER 5 DAYS MERLENE GAMEZ MD Oct 09, 2019 14:23
--- NOTE | 2019-10-09 17:20 | REP ---
Duplex extremity venous ultrasound: Right lower extremity akash History: Right lower extremity swelling and pain. Question DVT. Findings: The deep veins are anechoic and fully compressible from the groin to the popliteal fossa in the right lower extremity. Color flow imaging is homogeneous. Spectral Doppler interrogation demonstrates intact respiratory variation in flow and normal manual augmentation of flow. There is no evidence of deep vein thrombosis. Impression: Negative right lower extremity duplex venous ultrasound. No evidence of deep vein thrombosis. Electronically Signed by Vel Martinez MD 10/09/2019 05:11 P
--- NOTE | 2019-10-09 18:02 | REP ---
Ultrasound-guided paracentesis The procedure was performed under the direct supervision of Dr. Martinez. The risks and benefits of the procedure were explained to the patient and informed consent was obtained. The largest pocket of fluid was localized in the left lower quadrant using ultrasound guidance. The skin was prepped and draped in a sterile fashion. 1% lidocaine was used as a local anesthetic. An 8-Maldivian multi side-hole catheter was inserted using trocar technique. 9400 ml of yellow fluid was withdrawn and discarded. The patient tolerated the procedure well and there were no immediate complications. After the appropriate amount of monitored convalescence the patient was discharged from the department. Electronically Signed by ANTONIO Curiel 10/09/2019 05:38 P Electronically Signed by Vel Martinez MD 10/09/2019 05:52 P
[2019-10-09 18:05] VITALS: BP 121/57
[2019-10-09 22:00] VITALS: BP 100/51
[2019-10-09] MEDS: GABAPENTIN 300 MG CAP PO SCH (22:11)
[2019-10-09] MEDS: SIMVASTATIN 20 MG TAB PO SCH (22:12)
[2019-10-09] MEDS: traZODone 100 MG TAB PO SCH (22:12)
--- NOTE | 2019-10-09 22:33 | IPN ---
DATE: 10/09/2019 ELIZ Conner is seen and examined this morning at the bedside. Today she complains of ongoing watery diarrhea and she also complains of pain in her right leg. She also complains of abdominal distension and discomfort from her significant ascitic fluid. She was dialyzed yesterday with albumin support and 1500 mL of fluid were removed. VITAL SIGNS: Temperature 98.5, pulse 72, respiratory rate 18, blood pressure 121/57, saturating 98% on room air. Intake yesterday was 1200; dialysis yesterday removed 1500, net negative 300 mL. Weight in the bed scale is not recorded. General: The patient is seen lying in bed, elderly female, appears chronically ill. Awake, alert, oriented and in no acute distress. Extraocular muscles are intact. Tongue is moist. Neck is supple. The jugular veins are elevated. Cardiac: S1, S2, systolic murmur. 1+ edema in the peripheries. Lungs: Show diminished breath sounds at the bases, but no crackle or rales. Abdomen: Soft. There is a positive fluid wave and ascitic fluid NC2. There are bowel sounds. The left upper extremity fistula is patent. The left lower extremity has [id number] amputation with a dressing on the stump. The right leg has diffuse pitting edema up to the hip, thigh and dependent area. Skin: Shows lower extremity wounds with dressings which were not removed. Neurologic: She is awake, alert, oriented times three. No focal deficits. Psychiatric: Calm and cooperative. LABORATORY DATA White count 10.6, hemoglobin 10.1, sodium 136, potassium 3.9, bicarbonate 25, phosphorus 5.4, corrected calcium is 8.6. Paracentesis October 09 removed 9.4 liters of fluid. Venous duplex of the right lower extremity: No evidence of DVT. INPATIENT MEDICATIONS: Reviewed by myself and no change noted from prior. PROBLEMS: 1. End-stage renal disease on hemodialysis on a Tuesday, Tuesday, Tuesday schedule. The patient is chronically volume overloaded. She is noncompliant with dialysis and fluid restriction as an outpatient. Hypotension of hemodialysis complicates our ability to remove fluid. She continues on three times a day mitidrine. She is receiving albumin support with dialysis at present. Her long-term prognosis is quite poor. Her next dialysis will be on Tuesday again with albumin support and goal fluid removal 1.522 liters as tolerated by hemodynamics. She did have a large volume paracentesis today and we are unlikely to get more than 1-2 liters of fluid off with dialysis tomorrow. 2. Cirrhosis. Decompensated with recurrent ascites. Noncompliant with fluid restriction. Status post paracentesis today, 9.4 liters of fluid were removed. I do not see that she was given albumin with that large volume paracentesis today. I will order albumin to be given with dialysis tomorrow. 3. Decompensated diastolic congestive heart failure. The patient is chronically volume overloaded. Continue with fluid restriction and fluid removal on hemodialysis. She did receive an extra treatment over the weekend. 4. Secondary hyperparathyroidism of renal origin. Her corrected calcium is appropriate at 8.6, when accounting for albumin of 2.0. Her phosphorus is also acceptable. Continue with calcitriol and calcium carbonate. Parathyroid hormone level is optimal at 183. 5. Anemia of chronic kidney disease and also related to cirrhosis, iron deficiency and chronic inflammatory state. Her ferritin is quite elevated due to the chronic inflammation. Hold off on Venofer and continue with Aranesp with dialysis. Hemoglobin is optimal at 10.1. 6. Chronic hypotension complicates her care. Continue with current dose of mitidrine, continue with albumin support with hemodialysis. 7. Protein calorie malnutrition. Encourage Nepro with meal and protein in the diet. The patient has longstanding wounds. She is receiving albumin with dialysis this week.
[2019-10-10] VITALS (11 sets, daily range): BP systolic 78–125; BP diastolic 43–57
[2019-10-10] MEDS: oxyCODONE 5MG TAB PO PRN ×3 (01:26→22:49)
[2019-10-10] MEDS: VANCOMYCIN ORAL SOL 250MG/5ML ORAL SYRINGE PO SCH ×4 (03:04→21:38)
[2019-10-10] MEDS: LEVOTHYROXINE 125MCG TABLET (0.125MG) PO SCH (05:46)
[2019-10-10 06:42] LABS: HEMOGLOBIN 10.4 g/dl (12.0-15.5); MEAN CORPUSCULAR HGB CONC 29.7 g/dl (32.0-36.5); MEAN CORPUSCULAR VOLUME 97.5 fl (80.0-96.0); PLATELET COUNT, AUTOMATED 176 10^3/uL (150-450); RED BLOOD COUNT 3.59 10^6/uL (4.00-5.40); WHITE BLOOD COUNT 20.2 10^3/uL (4.0-10.0)
[2019-10-10 07:09] LABS: ALBUMIN 1.7 GM/DL (3.2-5.2); C REACTIVE PROTEIN QUANTITATIV 8.7 MG/DL (0.00-0.30); CALCIUM LEVEL 6.8 MG/DL (8.8-10.2); CREATININE FOR GFR 5.16 MG/DL (0.55-1.30); GLOMERULAR FILTRATION RATE 8.8 (>39); PHOSPHORUS LEVEL 6.9 MG/DL (2.5-4.9); POTASSIUM SERUM 4.4 MEQ/L (3.5-5.1)
[2019-10-10] MEDS: HumaLOG INSULIN (NovoLOG) PER UNIT SC SCH ×4 (07:30→21:00)
[2019-10-10] MEDS: FAMOTIDINE 20 MG TAB PO SCH (09:00)
[2019-10-10] MEDS: LEVEMIR (INSULIN DETEMIR) 1 UNITS/0.01ML SC SCH ×2 (09:00→21:39)
[2019-10-10] MEDS: DULoxetine 30 MG CAP (CYMBALTA) PO SCH (09:00)
[2019-10-10] MEDS: CALCITRIOL 0.25 MCG CAP (S0169) PO SCH (09:00)
[2019-10-10] MEDS: CALCIUM CARBONATE 500 MG CHEW U/D PO SCH ×3 (09:00→21:37)
[2019-10-10] MEDS: rOPINIRole 2MG TAB PO SCH ×2 (09:01→22:50)
[2019-10-10] MEDS: MIDODRINE 5 MG TAB PO SCH ×3 (09:30→17:37)
[2019-10-10] MEDS: LINEZOLID 600 MG in IV 1 EA IV SCH ×2 (14:08→22:50)
[2019-10-10] MEDS: MORPHINE 2 MG/ML 1ML VIAL (J2270) IV PRN (14:08)
[2019-10-10] MEDS: GENTAMICIN SULFATE 0.1% OINT 15 GM TOP SCH ×2 (17:39→21:39)
--- NOTE | 2019-10-10 17:55 | IPN ---
DATE: 10/10/2019 SUBJECTIVE: Dalila is seen and examined this morning at dialysis. She reports she feels much better status post 9 liters abdominal paracentesis performed yesterday. She states that her leg wound continues to bother her and hurt. She otherwise has no complaints at this time. OBJECTIVE: VITAL SIGNS: Temperature 97.7, pulse 82, respiratory rate of 14, blood pressure 91/53, pulse oximetry 96% on room air. Patient had 1000 mL of fluid taken out at dialysis today with her albumin infusions. PHYSICAL EXAMINATION: GENERAL: Patient is awake, alert, oriented, in no acute distress, resting comfortably in her bed while having her dialysis done. HEENT: Head is normocephalic, atraumatic. Extraocular muscles intact. Mucous membranes moist. Neck is supple. No obvious jugular venous distention (JVD). CARDIOVASCULAR: Regular rate and rhythm. Normal S1, S2. Systolic murmur on auscultation. 1+ peripheral edema in bilateral lower extremities. LUNGS: Diminished breath sounds at bilateral bases with no wheezes, crackles or rhonchi. ABDOMEN: Soft. Nontender to palpation. Only mildly distended. Positive bowel sounds. EXTREMITIES: Left upper extremity fistula is patent and functioning well. Left lower extremity has [id number] amputation (BKA) with dressing on the stump. Right lower extremity has diffuse pitting edema up to the hip and dressings on her wound. NEUROLOGIC: No focal neural deficits. Alert and oriented. LABORATORY REVIEW: White blood cell count of 20.2, hemoglobin of 10.4, hematocrit of 35, platelet count of 176. Sodium of 135, potassium 4.4, chloride 103, bicarbonate 24, BUN 38, creatinine 5.16, glucose 41, calcium 6.8, phosphorous 6.9. CRP 8.7. Albumin 1.7. ASSESSMENT AND PLAN: 1. End-stage renal disease (ESRD) on hemodialysis Tuesday, Tuesday, Tuesday schedule. Patient is chronically volume overloaded and somewhat hypotensive at hemodialysis, which complicates our ability to remove any fluid from her. She was given albumin with her hemodialysis, which did help bring up her pressures. She is continued on midodrine three times a day. Her fdc prognosis continues to be quite poor. Her next dialysis will be on Tuesday. 2. Cirrhosis, decompensated, with recurrent ascites. Patient is status post 9.4 liters removed. Patient has had recurrent ascites much more regularly than once weekly at this point, as she receives it on . I am unsure whether this is a poor prognostic indicator moving forward. 3. Decompensated diastolic congestive heart failure. Patient is chronically volume overloaded and the ability to remove fluid is complicated by her low blood pressure. We will continue with fluid restriction and therapeutic paracentesis as needed, as well as hemodialysis. 4. Secondary hyperparathyroidism of renal origin. She will continue with calcitriol and calcium carbonate. Parathyroid hormone is optimal. 5. Anemia of chronic disease and also related to cirrhosis, iron deficiency and chronic inflammatory state. Ferritin is elevated due to the chronic inflammation. We will hold off on Venofer and continue with Aranesp for the time being. Her hemoglobin is currently stable. 6. Chronic hypotension complicating care. We will continue with the current dose of midodrine and with albumin during hemodialysis. 7. Protein-calorie malnutrition. Patient is on Nepro with meals and protein in the diet. Patient also has longstanding wound. She is receiving albumin in dialysis this week.
--- NOTE | 2019-10-10 19:48 | IPNPDOC ---
Date Seen The patient was seen on 10/10/19. Progress Note SUBJECTIVE: 68-year-old female with past medical history of end-stage renal disease on dialysis, cirrhosis, diabetes mellitus, hypertension, hypothyroidism, peripheral artery disease, chronic hypotension, was admitted for bilateral lower extremity and sacral wounds. She underwent a partial amputation at Dr. Osorio's office yesterday, who then sent her to the hospital for further evaluation. She reports having worsening wounds noted. The past few months, underwent an angioplasty of the right lower extremity at one week ago by interventional radiology. Otherwise, she is currently comfortable and without any complaints, reports mild pain/discomfort in her wounds. She denies any shortness of breath, chest pain, nausea, vomiting, abdominal pain or diarrhea. She usually gets weekly paracentesis on , has 5-6 L drained on average, scheduled for paracentesis today by IR. 10/08/2019 Patient seen in dialysis unit, undergoing dialysis, received 150 g of albumin during dialysis to augment removal of fluid. She reports feeling fatigued, continues to have diarrhea, pain at her wounds, reports increased abdominal distention from baseline. She denies any chest pain, nausea, vomiting or significant abdominal pain. 10/09/2019 Patient seen in her room, continues to report abdominal distention with abdominal pain, reports right hip/leg pain as well, no additional complaints. She denies any shortness of breath, nausea, vomiting or headache. She continues to have diarrhea. 10/10/2019 Patient underwent paracentesis yesterday with removal of more than 9 L, underwent hemodialysis today with IV albumin to support intravascular volume. Patient continues to have bilateral lower extremity pain, significant improvement in abdominal pain, no other complaints. Patient hypoglycemic in the morning, received 14 units of Levemir overnight. 10 point review of system was negative except for above PHYSICAL EXAMINATION: VITAL SIGNS: Please see below. GENERAL: No distress HEENT: Normocephalic, atraumatic, moist mucous membranes NECK: Supple CARDIOVASCULAR EXAMINATION: S1, S2, systolic murmur appreciated RESPIRATORY EXAMINATION: Scattered rhonchi, no wheezing ABDOMINAL EXAMINATION: Soft, mildly distended, positive bowel sounds, significant flank edema. EXTREMITIES: Left upper extremity AV fistula, status post left lower extremity BKA, right hip/thigh with mild tenderness to palpation, diffuse lower extremity edema. SKIN: Bilateral lower extremity wounds with dressing in place, clean, dry and intact. NEUROLOGICAL EXAMINATION: Alert and oriented 3, no focal deficits PSYCHIATRIC EXAMINATION: Calm and cooperative LABORATORY DATA, IMAGING STUDIES, MICROBIOLOGY: Please see below. DVT prophylaxis ordered?: Yes ASSESSMENT AND PLAN: 68-year-old female with past medical history of end-stage renal disease, cirrhosis, hypertension, hypothyroidism, peripheral artery disease, diabetes mellitus and chronic hypertension is admitted for multiple wounds. PROBLEMS: 1. Multiple lower extremity and sacral wounds: Was following with Dr. Osorio in wound clinic, underwent partial amputation of wet gangrene prior to admission, status post ray amputation of right foot big toe. OR cultures growing enterococcus and Corynebacterium, continue Zyvox, discontinued Merrem. Stool PCR positive for C. difficile, continue oral vancomycin. ID following 2. End-stage renal disease. Usually gets hemodialysis Tuesday, Tuesday, Tuesday, compliance is an issue. HD per nephrology. Continue Patiromer, Aransep and calcium carbonate. 2. Cirrhosis: Gets weekly paracentesis, status post paracentesis yesterday, will monitor for need of further paracentesis. 3. Chronic hypotension: Continue Midodrine 5 mg 3 times a day 4. Diabetes mellitus Changed Levemir to 10 units at bedtime. Sliding scale insulin with fingersticks before every meal see and at bedtime 5. Hypothyroidism. Continue levothyroxine. 6. Peripheral artery disease. Status post right lower extremity angioplasty one week ago by interventional radiology. 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 GI prophylaxis: Pepcid VS, I&O, 24H, Fishbone Vital Signs/I&O Vital Signs Date Time Temp Pulse Resp B/P (MAP) Pulse Ox O2 Delivery O2 Flow Rate FiO2 10/10/19 16:00 18 10/10/19 14:02 98.7 77 100/45 (63) 98 Room Air 10/10/19 12:10 2.0 I&O- Last 24 Hours up to 6 AM 10/10/19 06:00 Intake Total 1790 ml Output Total 0 ml Balance 1790 ml Laboratory Data 24H LABS Laboratory Tests 2 10/09/19 20:49: Bedside Glucose (Misc Panel) 96 10/10/19 06:01: Bedside Glucose (Misc Panel) 38*L 10/10/19 06:04: Bedside Glucose (Misc Panel) 30*L 10/10/19 06:28: Nucleated Red Blood Cells % (auto) 0.2H, Anion Gap 8, Glomerular Filtration Rate 8.8L, Calcium Level 6.8L, Phosphorus Level 6.9#H, C-Reactive Protein, Quantitative 8.70H, Albumin 1.7L 10/10/19 06:31: Bedside Glucose (Misc Panel) 46L 10/10/19 06:57: Bedside Glucose (Misc Panel) 90 10/10/19 07:08: Bedside Glucose (Misc Panel) 93 10/10/19 14:08: Bedside Glucose (Misc Panel) 134H 10/10/19 17:03: Bedside Glucose (Misc Panel) 176H CBC/BMP Laboratory Tests 10/10/19 06:28 Microbiology Microbiology 10/07/19 Wound Culture - Final, Complete 10/05/19 Wound Culture - Final, Resulted Enterococcus Faecalis Corynebacterium Species 10/05/19 Anaerobic Culture, Resulted Pending 10/03/19 Blood Culture - Final, Complete Corynebacterium Sp. Not Jk 10/03/19 Blood Culture - Final, Complete NO GROWTH AFTER 5 DAYS MERLENE GAMEZ MD Oct 10, 2019 19:48
[2019-10-10] MEDS: traZODone 100 MG TAB PO SCH (21:37)
[2019-10-10] MEDS: SIMVASTATIN 20 MG TAB PO SCH (21:38)
[2019-10-10] MEDS: GABAPENTIN 300 MG CAP PO SCH (21:38)
[2019-10-11] VITALS (7 sets, daily range): BP systolic 88–122; BP diastolic 49–62
[2019-10-11] MEDS: VANCOMYCIN ORAL SOL 250MG/5ML ORAL SYRINGE PO SCH ×4 (03:13→21:45)
[2019-10-11] MEDS: LEVOTHYROXINE 125MCG TABLET (0.125MG) PO SCH (05:48)
[2019-10-11] MEDS: oxyCODONE 5MG TAB PO PRN ×2 (06:48→16:59)
[2019-10-11 08:29] LABS: HEMATOCRIT 31.9 % (36.0-47.0); HEMOGLOBIN 9.5 g/dl (12.0-15.5); MEAN CORPUSCULAR HEMOGLOBIN 29.2 pg (27.0-33.0); MEAN CORPUSCULAR HGB CONC 29.8 g/dl (32.0-36.5); MEAN CORPUSCULAR VOLUME 98.2 fl (80.0-96.0); PLATELET COUNT, AUTOMATED 124 10^3/uL (150-450); RED BLOOD COUNT 3.25 10^6/uL (4.00-5.40); WHITE BLOOD COUNT 13.4 10^3/uL (4.0-10.0)
[2019-10-11] MEDS: HumaLOG INSULIN (NovoLOG) PER UNIT SC SCH ×4 (08:30→21:00)
[2019-10-11 09:04] LABS: C REACTIVE PROTEIN QUANTITATIV 8.6 MG/DL (0.00-0.30); CALCIUM LEVEL 7.4 MG/DL (8.8-10.2); CREATININE FOR GFR 3.74 MG/DL (0.55-1.30); GLOMERULAR FILTRATION RATE 12.7 (>39); MAGNESIUM LEVEL 1.8 MG/DL (1.8-2.4); PHOSPHORUS LEVEL 5.3 MG/DL (2.5-4.9); POTASSIUM SERUM 3.6 MEQ/L (3.5-5.1)
[2019-10-11] MEDS: DULoxetine 30 MG CAP (CYMBALTA) PO SCH (10:00)
[2019-10-11] MEDS: rOPINIRole 2MG TAB PO SCH ×2 (10:00→21:45)
[2019-10-11] MEDS: CALCIUM CARBONATE 500 MG CHEW U/D PO SCH ×3 (10:01→21:45)
[2019-10-11] MEDS: CALCITRIOL 0.25 MCG CAP (S0169) PO SCH (10:04)
[2019-10-11] MEDS: FAMOTIDINE 20 MG TAB PO SCH (10:04)
[2019-10-11] MEDS: GENTAMICIN SULFATE 0.1% OINT 15 GM TOP SCH (10:05)
[2019-10-11] MEDS: MIDODRINE 5 MG TAB PO SCH ×3 (10:42→16:55)
[2019-10-11] MEDS: LINEZOLID 600 MG in IV 1 EA IV SCH (10:43)
[2019-10-11] MEDS: ONDANSETRON 4MG/2ML VIAL (J2405) IV PRN (12:12)
--- NOTE | 2019-10-11 12:55 | IPN ---
DATE OF SERVICE: 10/11/2019 ELIZ Conner is seen and examined this morning at the bedside. She is in poor spirits. She is tearful and complains of pain in both of her lower extremities. Dialysis yesterday could only remove 1 liter of fluid due to hypotension of hemodialysis (which is usually more notable when she is status post large volume paracentesis). Vital Signs: Temperature 96.6, pulse 74, respiratory rate 14, blood pressure 89/49, saturating 100% on room air. Intake yesterday was 1600; dialysis yesterday removed 1 liter, weight in the bed scale today is not recorded. General: The patient is seen lying in bed, elderly female, appears chronically ill. Extraocular muscles are intact. Tongue is moist. Neck is supple. The jugular veins are mildly elevated. Dentition is poor. Cardiac: S1, S2. Systolic murmur. 1+ edema in the peripheries. Lungs: Show diminished breath sounds at the bases, but no crackle or rale. Abdomen: Soft. There is some ascitic fluid reaccumulating. There are bowel sounds. The left upper extremity fistula is patent with thrill and bruit. The left lower extremity has a [id number] amputation with dressing on the stump. The right foot is in a waffle boot and has a dressing as well. Neurologic: She is awake, alert, oriented times three. No focal deficits. Psychiatric: She is tearful and crying. LABS: White count 13.4, hemoglobin 9.5, platelets 124. Sodium 137, potassium 3.6, magnesium 1.8, CRP 8.6. INPATIENT MEDICATIONS: Reviewed by myself. She is receiving meropenem 1 gram IV daily now and topical gentamicin to her right great toe. Her insulin was adjusted by the primary team. Her remainder of medications are unchanged from prior. PROBLEMS: 1. End-stage renal disease on hemodialysis on a Tuesday, Tuesday, Tuesday maintenance schedule. The patient is chronically volume overloaded. She is noncompliant with dialysis and fluid restriction as an outpatient. Hypotension of hemodialysis complicates our ability to remove fluid. She is receiving midodrine and she is receiving albumin support with dialysis at present. We were only able to remove 1 liter with dialysis yesterday and that is because she had the large volume paracentesis done the day before. 2. Decompensated cirrhosis with recurrent ascites. The patient gets weekly paracentesis. 9.4 liters were removed this week. Continue with albumin with dialysis to help with hypotension of hemodialysis. 3. Decompensated diastolic congestive heart failure. She is chronically volume overloaded. Continue with fluid removal on hemodialysis as tolerated by hemodynamics. Continue with midodrine. Will continue with albumin with dialysis. She did receive an extra treatment over the weekend. 4. Secondary hyperparathyroidism of renal origin. Her corrected calcium is appropriate. Her phosphorus is acceptable. Continue with calcitriol and calcium carbonate. Her parathyroid hormone level is optimized for end stage renal disease. 5. Anemia of chronic kidney disease and also related to cirrhosis, iron deficiency and chronic inflammatory state. Continue with Aranesp with dialysis. Hemoglobin is stable, but suboptimal at 9.5. 6. Chronic hypotension. Continue with three times a day midodrine. 7. Protein calorie malnutrition and poorly healing wounds. Encourage protein intake and Nepro. She is getting albumin with dialysis as well.
--- NOTE | 2019-10-11 13:17 | IPN ---
DATE OF SERVICE: 10/09/2019 at 8 a.m. CHIEF COMPLAINT: Patient seen at bedside for evaluation of her right foot. Patient complains of pain on the thigh of her right leg. There is no swelling of the lower extremity at the right foot, and there is no calf tenderness. Patient does not complain of any shortness of breath. The bandage was removed today, and the iodoform gauze and drain was removed from the wound. The wound edges are viable. The erythema previously present around the 1st metatarsal shaft has resolved. A dry sterile dressing was re-applied. Orders were written for x-ray, three views, of the right foot, and bandage change orders were written to cleanse the wound with Vashe, apply gentamicin cream and a sterile dressing twice a day. Patient's surgical cultures were reviewed, revealing Enterococcus faecalis that is sensitive to ampicillin and gentamicin. Patient was to continue with a foam boot to offload her heel. Patient can bear weight on her right foot and use a pivot disc to help assist ambulation with pivoting. Her questions are answered.
[2019-10-11] MEDS ORDERED: MEROPENEM INJ 1 GM in IV 1 EA IV SCH (18:00)
--- NOTE | 2019-10-11 18:55 | IPN ---
DATE: 10/11/2019 Dalila seems to be doing better. She states her diarrhea has improved. She had some diarrhea overnight but not during the day. Her appetite is fair. She has no nausea or vomiting. No abdominal pain. I did not examine her right foot today as it was dressed by Dr. Baeza. On review of his note, no swelling of the right foot, lower extremity. Drain was removed. The wound edges are viable. Erythema present around the first metatarsal shaft has resolved. Left leg stump also was not examined. IMPRESSION: 1. Acute osteomyelitis of the right foot with culture positive for Enterococcus faecalis, Corynebacterium species and anaerobic cocci. Patient on meropenem and linezolid. Linezolid will be switched from intravenous (IV) to oral (p.o.) and meropenem will be discontinued. 2. Clostridium difficile (C difficile) colitis. Patient on vancomycin 125 mg every 6 hours, improving. 3. Left stump wound. Will discuss with vascular surgery whether she will be a candidate for skin graft. She is getting angioplasty done by later this month. She used to follow up with Dr. Estrella but will make a referral to Dr. Powell. PLAN: Discontinue (DC) IV meropenem, IV linezolid, switch to oral Zyvox 600 mg twice a day. Continue vancomycin 125 mg every 6 hours. LABORATORY: White count 13.4 down from 20.2, hemoglobin 9.5, hematocrit 31.9, platelets 124. Sodium 137, potassium 3.6, chloride 98, bicarbonate 31, BUN 25, creatinine 3.74, glucose 99, calcium 7.4, magnesium 1.8. MTDD
--- NOTE | 2019-10-11 19:48 | IPNPDOC ---
Date Seen The patient was seen on 10/11/19. Progress Note SUBJECTIVE: 68-year-old female with past medical history of end-stage renal disease on dialysis, cirrhosis, diabetes mellitus, hypertension, hypothyroidism, peripheral artery disease, chronic hypotension, was admitted for bilateral lower extremity and sacral wounds. She underwent a partial amputation at Dr. Osorio's office yesterday, who then sent her to the hospital for further evaluation. She reports having worsening wounds noted. The past few months, underwent an angioplasty of the right lower extremity at one week ago by interventional radiology. Otherwise, she is currently comfortable and without any complaints, reports mild pain/discomfort in her wounds. She denies any shortness of breath, chest pain, nausea, vomiting, abdominal pain or diarrhea. She usually gets weekly paracentesis on , has 5-6 L drained on average, scheduled for paracentesis today by IR. 10/08/2019 Patient seen in dialysis unit, undergoing dialysis, received 150 g of albumin during dialysis to augment removal of fluid. She reports feeling fatigued, continues to have diarrhea, pain at her wounds, reports increased abdominal distention from baseline. She denies any chest pain, nausea, vomiting or significant abdominal pain. 10/09/2019 Patient seen in her room, continues to report abdominal distention with abdominal pain, reports right hip/leg pain as well, no additional complaints. She denies any shortness of breath, nausea, vomiting or headache. She continues to have diarrhea. 10/10/2019 Patient underwent paracentesis yesterday with removal of more than 9 L, underwent hemodialysis today with IV albumin to support intravascular volume. Patient continues to have bilateral lower extremity pain, significant improvement in abdominal pain, no other complaints. Patient hypoglycemic in the morning, received 14 units of Levemir overnight. 10/11/2019 Patient seen in her room, remains fatigued, having bilateral lower extremity pain, no other complaints. She denies any short of breath, chest pain, nausea, vomiting or abdominal pain. Continues having diarrhea. 10 point review of system was negative except for above PHYSICAL EXAMINATION: VITAL SIGNS: Please see below. GENERAL: No distress HEENT: Normocephalic, atraumatic, moist mucous membranes NECK: Supple CARDIOVASCULAR EXAMINATION: S1, S2, systolic murmur appreciated RESPIRATORY EXAMINATION: Scattered rhonchi, no wheezing ABDOMINAL EXAMINATION: Soft, mildly distended, positive bowel sounds, significant flank edema. EXTREMITIES: Left upper extremity AV fistula, status post left lower extremity BKA, right hip/thigh with mild tenderness to palpation, diffuse lower extremity edema. SKIN: Bilateral lower extremity wounds with dressing in place, clean, dry and intact. NEUROLOGICAL EXAMINATION: Alert and oriented 3, no focal deficits PSYCHIATRIC EXAMINATION: Calm and cooperative LABORATORY DATA, IMAGING STUDIES, MICROBIOLOGY: Please see below. DVT prophylaxis ordered?: Yes ASSESSMENT AND PLAN: 68-year-old female with past medical history of end-stage renal disease, cirrhosis, hypertension, hypothyroidism, peripheral artery disease, diabetes mellitus and chronic hypertension is admitted for multiple wounds. PROBLEMS: 1. Multiple lower extremity and sacral wounds: Was following with Dr. Osorio in wound clinic, underwent partial amputation of wet gangrene prior to admission, status post ray amputation of right foot big toe. OR cultures growing enterococcus, Corynebacterium and anaerobes, continue Zyvox by mouth, discontinued Merrem. Stool PCR positive for C. difficile, continue oral vancomycin. ID following 2. End-stage renal disease. Usually gets hemodialysis Tuesday, Tuesday, Tuesday, compliance is an issue. HD per nephrology. Continue Patiromer, Aransep and calcium carbonate. 2. Cirrhosis: Gets weekly paracentesis, status post paracentesis on Tuesday, will monitor for need of further paracentesis. 3. Chronic hypotension: Continue Midodrine 5 mg 3 times a day 4. Diabetes mellitus Changed Levemir to 10 units at bedtime. Sliding scale insulin with fingersticks before every meal see and at bedtime 5. Hypothyroidism. Continue levothyroxine. 6. Peripheral artery disease. Status post right lower extremity angioplasty one week ago by interventional radiology. 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 GI prophylaxis: Pepcid VS, I&O, 24H, Fishbone Vital Signs/I&O Vital Signs Date Time Temp Pulse Resp B/P (MAP) Pulse Ox O2 Delivery O2 Flow Rate FiO2 10/11/19 17:29 16 Room Air 10/11/19 10:15 87 89/49 (62) 100 10/11/19 08:23 96.6 10/10/19 12:10 2.0 I&O- Last 24 Hours up to 6 AM 10/11/19 06:00 Intake Total 1050.0 ml Output Total 1000 ml Balance 50.0 ml Laboratory Data 24H LABS Laboratory Tests 2 10/10/19 21:37: Bedside Glucose (Misc Panel) 200H 10/11/19 08:04: Nucleated Red Blood Cells % (auto) 0.1H, Anion Gap 8, Glomerular Filtration Rate 12.7L, Calcium Level 7.4L, Phosphorus Level 5.3#H, Magnesium Level 1.8, C-Reac tive Protein, Quantitative 8.60H 10/11/19 12:18: Bedside Glucose (Misc Panel) 141H 10/11/19 17:12: Bedside Glucose (Misc Panel) 153H CBC/BMP Laboratory Tests 10/11/19 08:04 Microbiology Microbiology 10/07/19 Wound Culture - Final, Complete 10/05/19 Wound Culture - Final, Complete Enterococcus Faecalis Corynebacterium Species 10/05/19 Anaerobic Culture - Final, Complete Anaerobic Cocci 10/03/19 Blood Culture - Final, Complete Corynebacterium Sp. Not Jk 10/03/19 Blood Culture - Final, Complete NO GROWTH AFTER 5 DAYS MERLENE GAMEZ MD Oct 11, 2019 19:48
[2019-10-11] MEDS: NYSTATIN 100,000 UNITS/GM TOPICAL PWD 15 GM TOP PRN (21:24)
[2019-10-11] MEDS: LEVEMIR (INSULIN DETEMIR) 1 UNITS/0.01ML SC SCH (21:45)
[2019-10-11] MEDS: SIMVASTATIN 20 MG TAB PO SCH (21:46)
[2019-10-11] MEDS: GABAPENTIN 300 MG CAP PO SCH (21:46)
[2019-10-11] MEDS: LINEZOLID 600MG TABLET (ZYVOX) PO SCH (21:46)
[2019-10-11] MEDS: traZODone 100 MG TAB PO SCH (21:46)
[2019-10-11] MEDS: MORPHINE 2 MG/ML 1ML VIAL (J2270) IV PRN (21:50)
[2019-10-12] VITALS (10 sets, daily range): BP systolic 73–96; BP diastolic 35–59
[2019-10-12] MEDS: VANCOMYCIN ORAL SOL 250MG/5ML ORAL SYRINGE PO SCH ×4 (03:47→21:33)
[2019-10-12 06:52] LABS: HEMATOCRIT 31.2 % (36.0-47.0); HEMOGLOBIN 9.3 g/dl (12.0-15.5); MEAN CORPUSCULAR HEMOGLOBIN 28.9 pg (27.0-33.0); MEAN CORPUSCULAR HGB CONC 29.8 g/dl (32.0-36.5); MEAN CORPUSCULAR VOLUME 96.9 fl (80.0-96.0); PLATELET COUNT, AUTOMATED 122 10^3/uL (150-450); RED BLOOD COUNT 3.22 10^6/uL (4.00-5.40); WHITE BLOOD COUNT 14.7 10^3/uL (4.0-10.0)
[2019-10-12] MEDS: FAMOTIDINE 20 MG TAB PO SCH (07:01)
[2019-10-12] MEDS: DULoxetine 30 MG CAP (CYMBALTA) PO SCH (07:01)
[2019-10-12] MEDS: LEVOTHYROXINE 125MCG TABLET (0.125MG) PO SCH (07:01)
[2019-10-12] MEDS: rOPINIRole 2MG TAB PO SCH ×2 (07:01→21:36)
[2019-10-12] MEDS: CALCITRIOL 0.25 MCG CAP (S0169) PO SCH (07:01)
[2019-10-12] MEDS: LINEZOLID 600MG TABLET (ZYVOX) PO SCH ×2 (07:01→21:36)
[2019-10-12] MEDS: MIDODRINE 5 MG TAB PO SCH ×3 (07:02→15:53)
[2019-10-12] MEDS: GENTAMICIN SULFATE 0.1% OINT 15 GM TOP SCH ×3 (07:03→09:00)
[2019-10-12 07:17] LABS: C REACTIVE PROTEIN QUANTITATIV 8.37 MG/DL (0.00-0.30); CALCIUM LEVEL 7.1 MG/DL (8.8-10.2); CREATININE FOR GFR 4.72 MG/DL (0.55-1.30); GLOMERULAR FILTRATION RATE 9.7 (>39)
[2019-10-12] MEDS: HumaLOG INSULIN (NovoLOG) PER UNIT SC SCH ×4 (07:30→21:00)
[2019-10-12] MEDS: CALCIUM CARBONATE 500 MG CHEW U/D PO SCH ×3 (08:14→21:36)
[2019-10-12] MEDS: oxyCODONE 5MG TAB PO PRN (12:18)
--- NOTE | 2019-10-12 12:51 | CR.PDOC ---
General Date of Consultation: Oct 12, 2019 Consultation Consultation Vascular Surgery Dr Powell HPI: The pt is a 68yoF status post Left BKA 04/06/19, S/P Left stump wound debridements and chronic non healing left stump wound as well as RLE chronc foot wounds. The pt is S/P angiogram with Dr Henriquez 09/27/19 with no intervention necessary and 2 vessel runoff noted to the Rt foot. The pt s apparently rescheduled as outpt next week for repeat LLE angiogram with Dr Henriquez. Vascular surgery is consulted re non healing Left BKA Stump Denies any fevers, chills, weakness, fatigue, Headache, Chest Pain, Shortness of breath, cough, palpitations, abdominal pain, changes bladder habits. PAST MEDICAL HISTORY: 1. End-stage renal disease on hemodialysis (MWF) 2. End-stage liver disease on paracentesis every two weeks, recent increase in frequency (last paracentesis: 06/05 and 05/24) 3. Type 2 diabetes, Insulin Dependent 4. Chronic anemia due to chronic kidney disease. 5. Peripheral vascular disease status post left BKA. 6. Coronary artery disease status post stenting. 7. Liver cirrhosis with recurrent ascites 8. HFpEF 9. Hypothyroidism 10. HTN 11. DLP 12. Depression/anxiety PAST SURGICAL HISTORY: 1. Left BKA. 2. Left arteriovascular (AV) fistula. 3. Appendectomy. 4. Hysterectomy. 5. Cataract surgery. SOCIAL HISTORY: Marital status: Children: Daughter who she lives with Tobacco use: Denies FAMILY HISTORY: No pertinent family medical history. ROS: As noted in HPI, otherwise 11pt ROS of systems reviewed and unremarkable. PE: GEN: 68yoF, appears chronically ill. HEENT: Normocephalic, atraumatic. Moist mucous membranes. CHEST: Regular rate and rhythm, +S1, +S2 LUNGS: Clear to auscultation bilaterally. No wheezes, rales, or rhonchi. Breathing appears symmetric and easy. ABD: Round, non-tender, mildly distended distended. +Bowel sounds throughout. No rebound or guarding. EXT: Rt foot wrapped in bandage, Lt BKA with open wound on distal aspect, pink granulation tissue, no drainage or bleeding. No surrounding erythema. SKIN: No rashes. NEURO: Alert and oriented x 3. Cranial nerves III-XII are intact. No focal deficits appreciated. A&P: 1. Left BKA 04/06/19, wth non healing Left Stump wound. The pt has been reviewed and examined as per Dr Powell. The pt's wound was examined by Dr Powell and bandage re applied. Lengthy discussion with the pt discussing multiple options. One would be to continue with current course and monitor, continue wound care. Another would be to proceed with skin graft. And lastly, above knee amputation. The pt is teary with discussing further surgery. Will continue to follow along and discuss with pt how she wishes to proceed. Vital Signs/I&O Vital Signs Date Time Temp Pulse Resp B/P (MAP) Pulse Ox O2 Delivery O2 Flow Rate FiO2 10/12/19 12:18 18 10/12/19 09:25 96.7 80 86/51 Room Air 10/12/19 07:03 98 10/10/19 12:10 2.0 I&O- Last 24 Hours up to 6 AM 10/12/19 05:59 Intake Total 1040 ml Output Total 0 ml Balance 1040 ml Laboratory Data Labs 24H Laboratory Tests 2 10/11/19 17:12: Bedside Glucose (Misc Panel) 153H 10/11/19 21:16: Bedside Glucose (Misc Panel) 142H 10/12/19 06:27: Nucleated Red Blood Cells % (auto) 0.2H, Anion Gap 11, Glomerular Filtration Rate 9.7L, Calcium Level 7.1L, C-Reactive Protein, Quantitative 8.37H 10/12/19 12:25: Bedside Glucose (Misc Panel) 146H CBC/BMP Laboratory Tests 10/12/19 06:27 Microbiology Microbiology 10/07/19 Wound Culture - Final, Complete 10/05/19 Wound Culture - Final, Complete Enterococcus Faecalis Corynebacterium Species 10/05/19 Anaerobic Culture - Final, Complete Anaerobic Cocci 10/03/19 Blood Culture - Final, Complete Corynebacterium Sp. Not Jk 10/03/19 Blood Culture - Final, Complete NO GROWTH AFTER 5 DAYS Allergies Coded Allergies: heparin (Verified Adverse Reaction, Intermediate, Thrombocytopenia, 08/13/19) HIT Ab + 08/10/19 pregabalin (Verified Adverse Reaction, Intermediate, "feeling weird", SI thoughts., 06/07/19) vancomycin (Verified Adverse Reaction, Mild, DIARRHEA, 06/07/19) Home Medications Scheduled Calcium Carbonate (Oyster Shell Calcium) 500 Mg Tablet, 500 MG PO DAILY, (Reported) Duloxetine Hcl (Duloxetine HCl) 30 Mg Cap, 30 MG PO DAILY, (Reported) Gabapentin (Gabapentin) 100 Mg Capsule, 300 MG PO QHS, (Reported) Insulin Detemir (Levemir) 100 Unit/1 Ml Vial, 10 UNITS SC BID, (Reported) Insulin Lispro (Humalog) 100 Unit/Ml Inj, 1 DOSE SC AC, (Reported) PER SLIDING SCALE Levothyroxine Sodium (Synthroid) 125 Mcg Tab, 125 MCG PO DAILY, (Reported) Midodrine HCl (Midodrine HCl) 5 Mg Tablet, 5 MG PO TID, (Reported) Mineral Oil/Petrolatum,White (Hydrocerin Cream) 113 Gm Cream..g., 1 DOSE TOP DAILY, (Reported) APPLIES TO RIGHT LOWER EXTREMITIES Pantoprazole Sodium (Pantoprazole Sodium) 40 Mg Tab, 40 MG PO DAILY, (Reported) Ropinirole HCl (Ropinirole HCl) 2 Mg Tab, 6 MG PO BID, (Reported) Silver Sulfadiazine (Ssd) 50 Gm Cream..g., 1 DOSE EXT DAILY, (Reported) USED ON BIG TOE OF RIGHT FOOT Simvastatin (Simvastatin) 20 Mg Tab, 20 MG PO QHS, (Reported) Trazodone HCl (Trazodone HCl) 100 Mg Tablet, 200 MG PO QHS, (Reported) Scheduled PRN Calcium Carbonate (Tums) 500 Mg Chw, 1,000 MG PO PC PRN for HEARTBURN/INDIGESTION, (Reported) Diphenhydramine HCl (Diphenhydramine HCl) 25 Mg Capsule, 25 MG PO Q4H PRN for ITCHING, #30 (Reported) Oxycodone HCl (Oxycodone HCl) 5 Mg Tablet, 2.5 MG PO Q12H PRN for PAIN, (Reported) Patiromer Calcium Sorbitex (Veltassa) 8.4 Gm Pow, 8.4 GM PO ASDIRECTED PRN for MISSING DIALYSIS, (Reported) Trini Vieira Oct 12, 2019 12:51
--- NOTE | 2019-10-12 13:23 | IPN ---
DATE: 10/12/2019 CHIEF COMPLAINT: Complains of pain in her foot as well as her decubitus ulcer. She is still having diarrhea, but no nausea or vomiting. Her appetite is fair. LABORATORY DATA: White count 14.7, hemoglobin 9.3, hematocrit 31.2, platelets 122. Sodium 134, potassium 4, chloride 97, bicarb 26, BUN 38, creatinine 4.72, glucose 94, calcium 7.1, CRP 8.37. Wound culture of the right toe had Enterococcus faecalis, Corynebacterium and anaerobic cocci. Stool for Clostridium diff was positive. PHYSICAL EXAMINATION: Temperature is 96.7, pulse 80, respirations 16, blood pressure 86/51, O2 sat 98% on room air. Heart: Normal S1 and S2. Lungs: Clear. No wheezes, rales or rhonchi. Abdomen: Ascites. Mildly tender in the lower quadrant. +1 pitting edema with tenderness. No cellulitis. Left below knee amputation (BKA) with yellowish discharge, but no evidence of cellulitis or infection. There is hypergranulation tissue. Left leg with no cellulitis. Right ray amputation of the big toe with sutures in place, no purulent discharge. Decubitus ulcer measures 2 x 2 cm with a black base which is felt to be due to silver nitrate as it could be removed with forceful debridement with gauze. There is surrounding erythema about 1-2 cm margin and tenderness. IMPRESSION: 1. Left stump nonhealing since March 2019. Will be getting angioplasty by Dr. Henriquez later this month. Will discuss with Dr. Powell whether the patient would benefit from skin graft. 2. Sacral decubitus looks infected with surrounding cellulitis. Currently the patient is only on by mouth Zyvox. 3. Clostridium difficile colitis on by mouth vancomycin 125 mg every 6 hours. PLAN: Continue same antibiotics. Consult with Dr. Powell regarding left stump, whether a skin graft at some point would be an option after angioplasty is done.
[2019-10-12] MEDS ORDERED: HEPARIN 1,000 UNITS/ML 10ML VIAL (FOR RADIOLOGY& DIALYSIS ONLY) IV ONE (14:15)
--- NOTE | 2019-10-12 15:13 | IPNPDOC ---
Date Seen The patient was seen on 10/12/19. Progress Note Patient seen and examined at the request of Dr. Fontanez regarding nonhealing left below-knee amputation. Please see Trini FISHER consult note for full consultation. The patient underwent below-knee amputation in March with Dr. Estrella, and has since had a long course of wound care due to failure to heal, initially exposed bone, and infection. Currently, she has granulation tissue over the entire distal stump, no exposed bone, no signs of infection, no swelling, no erythema or induration. The area of granulation is large, and I think there is little chance of primary healing from epithelialization, but she would have a chance of healing with a skin graft, but this is a difficult area to graft and get a graft to take. The patient that she is scheduled for an arteriogram with Dr. Henriquez for the left lower extremity. I looked back through her vascular studies. The patient had an arteriogram of the left lower extremity with Dr. Estrella in March prior to her amputation that showed excellent inflow through the iliac and common femoral artery, a widely patent profunda, some very mild ectasia in the SFA but otherwise widely patent vessel, widely patent popliteal artery, good outflow th rough the peroneal and posterior tibial artery, and occlusion of the anterior tibial artery 10 cm from its origin. Based on this imaging, and the patient's recent CTA with runoff 09/06/2019 that was consistent with the findings from the arteriogram mentioned above, I do not think she has significant arterial flow limitations in the left lower extremity contributing to poor wound healing. Unfortunately, with below-knee amputations, if they do not heal well at the initial time of surgery, it is extremely difficult to get them to heal, especially if there is a large dehiscence of the flap or significant infection. In her case, the entire distal aspect of the stump is granulation tissue, and this is a large area to try to epithelialize and a difficult area to graft. I discussed with the patient an option for a left above-knee amputation, and she is tearful thinking about doing any additional surgery, whether it be an AKA or a skin graft or any type of revision. She is exhausted, overwhelmed with all of her medical issues, and she asked me if she is going to live long enough to make any of this surgery worthwhile. I think that is a legitimate question, unfortunately I don't know the answer to that, but I told her there is no urgency to any intervention at this time. Her wound is completely stable, it has been well cared for at the wound care center, and it is granulated and does not appear infected or unstable. Therefore, we can see how she feels and proceed with any additional intervention she decide she is ready for. Alternatively, we can continue with local wound care indefinitely. Regarding the right lower extremity, I reviewed her imaging for this as well. The patient had a CTA on 09/06/2019 that showed widely patent flow through the iliofemoral system, popliteal artery and 2 vessel runoff through the anterior tibial and posterior tibial artery to the foot. The same findings were also seen on Dr. Henriquez's subsequent angiogram 09/27/2019. I do not think further v ascular intervention is required for the right lower extremity. After discussion with the patient, I thoroughly cleaned her stump, and redressed it according to the wound care orders given to the nurse. She tolerated this well. I discussed my thoughts with Dr. Fontanez and we'll continue to follow along as needed. VS, I&O, 24H, Fishbone Vital Signs/I&O Vital Signs Date Time Temp Pulse Resp B/P (MAP) Pulse Ox O2 Delivery O2 Flow Rate FiO2 10/12/19 12:58 20 Room Air 10/12/19 09:25 96.7 80 86/51 10/12/19 07:03 98 10/10/19 12:10 2.0 I&O- Last 24 Hours up to 6 AM 10/12/19 06:00 Intake Total 1115 ml Output Total 0 ml Balance 1115 ml Laboratory Data 24H LABS Laboratory Tests 2 10/11/19 17:12: Bedside Glucose (Misc Panel) 153H 10/11/19 21:16: Bedside Glucose (Misc Panel) 142H 10/12/19 06:27: Nucleated Red Blood Cells % (auto) 0.2H, Anion Gap 11, Glomerular Filtration Rate 9.7L, Calcium Level 7.1L, C-Reactive Protein, Quantitative 8.37H 10/12/19 12:25: Bedside Glucose (Misc Panel) 146H CBC/BMP Laboratory Tests 10/12/19 06:27 Microbiology Microbiology 10/07/19 Wound Culture - Final, Complete 10/05/19 Wound Culture - Final, Complete Enterococcus Faecalis Corynebacterium Species 10/05/19 Anaerobic Culture - Final, Complete Anaerobic Cocci 10/03/19 Blood Culture - Final, Complete Corynebacterium Sp. Not Jk 10/03/19 Blood Culture - Final, Complete NO GROWTH AFTER 5 DAYS SURAJ HERNANDEZ MD Oct 12, 2019 15:13
--- NOTE | 2019-10-12 18:04 | IPNPDOC ---
Date Seen The patient was seen on 10/12/19. Progress Note SUBJECTIVE: 68-year-old female with past medical history of end-stage renal disease on dialysis, cirrhosis, diabetes mellitus, hypertension, hypothyroidism, peripheral artery disease, chronic hypotension, was admitted for bilateral lower extremity and sacral wounds. She underwent a partial amputation at Dr. Osorio's office yesterday, who then sent her to the hospital for further evaluation. She reports having worsening wounds noted. The past few months, underwent an angioplasty of the right lower extremity at one week ago by interventional radiology. Otherwise, she is currently comfortable and without any complaints, reports mild pain/discomfort in her wounds. She denies any shortness of breath, chest pain, nausea, vomiting, abdominal pain or diarrhea. She usually gets weekly paracentesis on , has 5-6 L drained on average, scheduled for paracentesis today by IR. 10/08/2019 Patient seen in dialysis unit, undergoing dialysis, received 150 g of albumin during dialysis to augment removal of fluid. She reports feeling fatigued, continues to have diarrhea, pain at her wounds, reports increased abdominal distention from baseline. She denies any chest pain, nausea, vomiting or significant abdominal pain. 10/09/2019 Patient seen in her room, continues to report abdominal distention with abdominal pain, reports right hip/leg pain as well, no additional complaints. She denies any shortness of breath, nausea, vomiting or headache. She continues to have diarrhea. 10/10/2019 Patient underwent paracentesis yesterday with removal of more than 9 L, underwent hemodialysis today with IV albumin to support intravascular volume. Patient continues to have bilateral lower extremity pain, significant improvement in abdominal pain, no other complaints. Patient hypoglycemic in the morning, received 14 units of Levemir overnight. 10/11/2019 Patient seen in her room, remains fatigued, having bilateral lower extremity pain, no other complaints. She denies any short of breath, chest pain, nausea, vomiting or abdominal pain. Continues having diarrhea. 10/12/2019 Patient seen during dialysis, reports improvement compared to yesterday, still having lower extremity pain, improved from yesterday. Continues to have diarrhea 10 point review of system was negative except for above PHYSICAL EXAMINATION: VITAL SIGNS: Please see below. GENERAL: No distress HEENT: Normocephalic, atraumatic, moist mucous membranes NECK: Supple CARDIOVASCULAR EXAMINATION: S1, S2, systolic murmur appreciated RESPIRATORY EXAMINATION: Scattered rhonchi, no wheezing ABDOMINAL EXAMINATION: Soft, distended, positive bowel sounds, significant flank edema. EXTREMITIES: Left upper extremity AV fistula, status post left lower extremity BKA, right hip/thigh with mild tenderness to palpation, diffuse lower extremity edema. SKIN: Bilateral lower extremity wounds with dressing in place, clean, dry and intact. NEUROLOGICAL EXAMINATION: Alert and oriented 3, no focal deficits PSYCHIATRIC EXAMINATION: Calm and cooperative LABORATORY DATA, IMAGING STUDIES, MICROBIOLOGY: Please see below. DVT prophylaxis ordered?: Yes ASSESSMENT AND PLAN: 68-year-old female with past medical history of end-stage renal disease, cirrhosis, hypertension, hypothyroidism, peripheral artery disease, diabetes mellitus and chronic hypertension is admitted for multiple wounds. PROBLEMS: 1. Multiple lower extremity and sacral wounds: Right foot Osteomyelitis, status post ray amputation of first digit in the right foot. OR cultures grew enterococcus, Corynebacterium and anaerobes, continue Zyvox by mouth, discontinued Merrem. C. difficile, continue oral vancomycin. Evaluated by vascular surgery, patient may benefit from surgical intervention [place] [facility] [place], but patient is not happy about the idea of another surgery given her overall prognosis. Patient is scheduled for left lower extremity angiogram by IR later this month. ID following 2. End-stage renal disease. Usually gets hemodialysis Tuesday, Tuesday, Tuesday, compliance is an issue. HD per nephrology. Continue Patiromer, Aransep and calcium carbonate. 2. Cirrhosis: Gets weekly paracentesis, status post paracentesis on Tuesday, will monitor for need of further paracentesis. 3. Chronic hypotension: Continue Midodrine 5 mg 3 times a day 4. Diabetes mellitus Continue Levemir to 10 units at bedtime. Sliding scale insulin with fingersticks before every meal see and at bedtime 5. Hypothyroidism. Continue levothyroxine. 6. Peripheral artery disease. Status post right lower extremity angioplasty one week ago by interventional radiology. 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 GI prophylaxis: Pepcid VS, I&O, 24H, Fishbone Vital Signs/I&O Vital Signs Date Time Temp Pulse Resp B/P (MAP) Pulse Ox O2 Delivery O2 Flow Rate FiO2 10/12/19 14:00 98.9 79 15 89/35 (53) 97 Room Air 10/10/19 12:10 2.0 I&O- Last 24 Hours up to 6 AM 10/12/19 06:00 Intake Total 1115 ml Output Total 0 ml Balance 1115 ml Laboratory Data 24H LABS Laboratory Tests 2 10/11/19 21:16: Bedside Glucose (Misc Panel) 142H 10/12/19 06:27: Nucleated Red Blood Cells % (auto) 0.2H, Anion Gap 11, Glomerular Filtration Rate 9.7L, Calcium Level 7.1L, C-Reactive Protein, Quantitative 8.37H 10/12/19 12:25: Bedside Glucose (Misc Panel) 146H 10/12/19 17:13: Bedside Glucose (Misc Panel) 160H CBC/BMP Laboratory Tests 10/12/19 06:27 Microbiology Microbiology 10/07/19 Wound Culture - Final, Complete 10/05/19 Wound Culture - Final, Complete Enterococcus Faecalis Corynebacterium Species 10/05/19 Anaerobic Culture - Final, Complete Anaerobic Cocci 10/03/19 Blood Culture - Final, Complete Corynebacterium Sp. Not Jk 10/03/19 Blood Culture - Final, Complete NO GROWTH AFTER 5 DAYS MERLENE GAMEZ MD Oct 12, 2019 18:04
--- NOTE | 2019-10-12 18:19 | IPN ---
DATE: 10/12/2019 SUBJECTIVE: Patient is seen and examined this morning in dialysis. She reports no acute events overnight but states that she does feel like her belly is feeling quite full again. She continues to complain of pain in her foot. OBJECTIVE: Vital signs: Temperature 96.7, pulse 80, respiratory rate of 16, blood pressure 86/51, saturating 98% on room air. Patient had a liter removed today at dialysis. PHYSICAL EXAMINATION: GENERAL: Patient is awake, alert, oriented in no acute distress, resting in bed. She continues to appear chronically ill. HEENT: Extraocular muscles intact (EOMI). Pupils equal, round, and reactive to light. Mucous membranes moist. Mild elevation of jugular venous distention (JVD). CARDIAC: Regular rate and rhythm. Normal S1 and S2. Systolic murmur. Pitting edema 1+, bilateral lower extremities. LUNGS: Diminished breath sounds bilaterally with no wheezes, crackles, rhonchi. ABDOMEN: Continues to be acetic fluid reaccumulation. Her bowel sounds are present. Her belly is soft and is moderately distended. EXTREMITIES: Left upper extremity fistula is patent and functioning well. Left lower extremity has below-knee amputation with dressing on the stump. Right foot is in waffle boot and has dressing applied. NEUROLOGIC: She is alert and oriented times three with no focal neurologic deficits. LABORATORY REVIEW: White blood cell count of 14.7, hemoglobin of 9.3, hematocrit of 31.2, platelet count of 122. Sodium 134, potassium 4, chloride 97, bicarbonate 26, BUN 38, creatinine 4.72, glucose 94, calcium 7.1. ASSESSMENT AND PLAN: 1. End-stage renal disease, on hemodialysis Tuesday, Tuesday, Tuesday. Patient continues to be chronically volume overloaded. She is noncompliant with dialysis and fluid restriction as an outpatient. Due to her hypotension, it has been difficult to remove more fluid at hemodialysis during her hemodialysis sessions. She is on midodrine and continues to receive albumin support with dialysis to allow for some fluid to be removed. She still was only able to remove 1 liter with dialysis today because of her low blood pressures. 2. Decompensated cirrhosis with recurrent ascites. Patient gets weekly paracentesis. This week 9.4 liters were removed. We will continue with albumin with dialysis to help with hypotension of hemodialysis. 3. Decompensated diastolic congestive heart failure. She is chronically volume overloaded. We will continue with fluid removal during dialysis sessions as tolerated by her blood pressure. Continue with midodrine and with albumin with hemodialysis. 4. Secondary hyperparathyroidism of renal origin. Her corrected calcium is acceptable. We will continue with calcitriol and calcium carbonate. Her parathyroid hormone level is optimized for her end-stage renal disease. 5. Anemia of chronic kidney disease related to an ulcer related to cirrhosis, iron deficiency, and chronic inflammatory state. We will continue with Aranesp with dialysis. Her hemoglobin continues to be stable. 6. Chronic hypotension. Continue with midodrine three times daily. 7. Protein calorie malnutrition, poor healing wounds. Continue to encourage protein intake and Nepro. She continues with albumin with dialysis as well.
[2019-10-12] MEDS: traZODone 100 MG TAB PO SCH (21:32)
[2019-10-12] MEDS: SIMVASTATIN 20 MG TAB PO SCH (21:36)
[2019-10-12] MEDS: GABAPENTIN 300 MG CAP PO SCH (21:36)
[2019-10-12] MEDS: LEVEMIR (INSULIN DETEMIR) 1 UNITS/0.01ML SC SCH (21:36)
[2019-10-12] MEDS: NYSTATIN 100,000 UNITS/GM TOPICAL PWD 15 GM TOP PRN (21:50)
[2019-10-13 02:00] VITALS: BP 92/51
[2019-10-13] MEDS: VANCOMYCIN ORAL SOL 250MG/5ML ORAL SYRINGE PO SCH ×5 (03:56→22:14)
[2019-10-13] MEDS: GENTAMICIN SULFATE 0.1% OINT 15 GM TOP SCH ×4 (03:56→22:15)
[2019-10-13 06:00] VITALS: BP 88/40
[2019-10-13] MEDS: LEVOTHYROXINE 125MCG TABLET (0.125MG) PO SCH (06:53)
[2019-10-13 07:26] LABS: HEMATOCRIT 30.3 % (36.0-47.0); HEMOGLOBIN 8.7 g/dl (12.0-15.5); MEAN CORPUSCULAR HEMOGLOBIN 28.5 pg (27.0-33.0); MEAN CORPUSCULAR HGB CONC 28.7 g/dl (32.0-36.5); MEAN CORPUSCULAR VOLUME 99.3 fl (80.0-96.0); PLATELET COUNT, AUTOMATED 103 10^3/uL (150-450); RED BLOOD COUNT 3.05 10^6/uL (4.00-5.40); WHITE BLOOD COUNT 10.6 10^3/uL (4.0-10.0)
[2019-10-13 07:47] LABS: C REACTIVE PROTEIN QUANTITATIV 7.54 MG/DL (0.00-0.30); CALCIUM LEVEL 7.4 MG/DL (8.8-10.2); CREATININE FOR GFR 3.78 MG/DL (0.55-1.30); GLOMERULAR FILTRATION RATE 12.6 (>39); POTASSIUM SERUM 3.9 MEQ/L (3.5-5.1)
[2019-10-13] MEDS: rOPINIRole 2MG TAB PO SCH ×2 (08:00→22:15)
[2019-10-13] MEDS: DULoxetine 30 MG CAP (CYMBALTA) PO SCH (08:01)
[2019-10-13] MEDS: FAMOTIDINE 20 MG TAB PO SCH (08:01)
[2019-10-13] MEDS: CALCIUM CARBONATE 500 MG CHEW U/D PO SCH ×4 (08:01→22:14)
[2019-10-13] MEDS: HumaLOG INSULIN (NovoLOG) PER UNIT SC SCH ×4 (08:01→21:00)
[2019-10-13] MEDS: LINEZOLID 600MG TABLET (ZYVOX) PO SCH ×2 (08:01→22:14)
[2019-10-13] MEDS: MIDODRINE 5 MG TAB PO SCH ×3 (08:02→15:56)
[2019-10-13] MEDS: CALCITRIOL 0.25 MCG CAP (S0169) PO SCH (08:02)
[2019-10-13 10:00] VITALS: BP 98/45
[2019-10-13] MEDS: oxyCODONE 5MG TAB PO PRN (10:24)
[2019-10-13] MEDS: MORPHINE 2 MG/ML 1ML VIAL (J2270) IV PRN (13:55)
[2019-10-13 14:00] VITALS: BP 119/61
[2019-10-13] MEDS: ONDANSETRON 4MG/2ML VIAL (J2405) IV PRN (16:02)
[2019-10-13] MEDS ORDERED: MORPHINE 2 MG/ML 1ML VIAL (J2270) IV ONE (16:30)
--- NOTE | 2019-10-13 16:41 | IPNPDOC ---
Date Seen The patient was seen on 10/13/19. Progress Note SUBJECTIVE: 68-year-old female with past medical history of end-stage renal disease on dialysis, cirrhosis, diabetes mellitus, hypertension, hypothyroidism, peripheral artery disease, chronic hypotension, was admitted for bilateral lower extremity and sacral wounds. She underwent a partial amputation at Dr. Osorio's office yesterday, who then sent her to the hospital for further evaluation. She reports having worsening wounds noted. The past few months, underwent an angioplasty of the right lower extremity at one week ago by interventional radiology. Otherwise, she is currently comfortable and without any complaints, reports mild pain/discomfort in her wounds. She denies any shortness of breath, chest pain, nausea, vomiting, abdominal pain or diarrhea. She usually gets weekly paracentesis on , has 5-6 L drained on average, scheduled for paracentesis today by IR. 10/08/2019 Patient seen in dialysis unit, undergoing dialysis, received 150 g of albumin during dialysis to augment removal of fluid. She reports feeling fatigued, continues to have diarrhea, pain at her wounds, reports increased abdominal distention from baseline. She denies any chest pain, nausea, vomiting or significant abdominal pain. 10/09/2019 Patient seen in her room, continues to report abdominal distention with abdominal pain, reports right hip/leg pain as well, no additional complaints. She denies any shortness of breath, nausea, vomiting or headache. She continues to have diarrhea. 10/10/2019 Patient underwent paracentesis yesterday with removal of more than 9 L, underwent hemodialysis today with IV albumin to support intravascular volume. Patient continues to have bilateral lower extremity pain, significant improvement in abdominal pain, no other complaints. Patient hypoglycemic in the morning, received 14 units of Levemir overnight. 10/11/2019 Patient seen in her room, remains fatigued, having bilateral lower extremity pain, no other complaints. She denies any short of breath, chest pain, nausea, vomiting or abdominal pain. Continues having diarrhea. 10/12/2019 Patient seen during dialysis, reports improvement compared to yesterday, still having lower extremity pain, improved from yesterday. Continues to have diarrhea. 10/13/2019 Patient seen home, continues to have lower extremity pain, otherwise, reports improvement in diarrhea and nausea/abdominal pain. Denies shortness of breath, chest pain or headaches. 10 point review of system was negative except for above PHYSICAL EXAMINATION: VITAL SIGNS: Please see below. GENERAL: No distress HEENT: Normocephalic, atraumatic, moist mucous membranes NECK: Supple CARDIOVASCULAR EXAMINATION: S1, S2, systolic murmur appreciated RESPIRATORY EXAMINATION: Scattered rhonchi, no wheezing ABDOMINAL EXAMINATION: Soft, distended, positive bowel sounds, significant flank edema. EXTREMITIES: Left upper extremity AV fistula, status post left lower extremity BKA SKIN: Bilateral lower extremity wounds with dressing in place, clean, dry and intact. NEUROLOGICAL EXAMINATION: Alert and oriented 3, no focal deficits PSYCHIATRIC EXAMINATION: Calm and cooperative LABORATORY DATA, IMAGING STUDIES, MICROBIOLOGY: Please see below. DVT prophylaxis ordered?: No ASSESSMENT AND PLAN: 68-year-old female with past medical history of end-stage renal disease, cirrhosis, hypertension, hypothyroidism, peripheral artery disease, diabetes mellitus and chronic hypertension is admitted for multiple wounds. PROBLEMS: 1. Multiple lower extremity and sacral wounds: Right foot Osteomyelitis, status post ray amputation of first digit in the right foot. OR cultures grew enterococcus, Corynebacterium and anaerobes, continue Zyvox by mouth, discontinued Merrem. C. difficile, continue oral vancomycin. Evaluated by vascular surgery, patient may benefit from surgical intervention on stump to improve wound healing, but patient is not happy about the idea of another surgery given her overall prognosis. Patient is scheduled for left lower extremity angiogram by IR later this month. ID following 2. End-stage renal disease. Usually gets hemodialysis Tuesday, Tuesday, Tuesday, compliance is an issue. HD per nephrology. Continue Patiromer, Aransep and calcium carbonate. 2. Cirrhosis: Gets weekly paracentesis, status post paracentesis on Tuesday, will monitor for need of further paracentesis. 3. Chronic hypotension: Continue Midodrine 5 mg 3 times a day 4. Diabetes mellitus Continue Levemir to 10 units at bedtime. Sliding scale insulin with fingersticks before every meal see and at bedtime 5. Hypothyroidism. Continue levothyroxine. 6. Peripheral artery disease. Status post right lower extremity angioplasty one week ago by interventional radiology. 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 GI prophylaxis: Pepcid VS, I&O, 24H, Fishbone Vital Signs/I&O Vital Signs Date Time Temp Pulse Resp B/P (MAP) Pulse Ox O2 Delivery O2 Flow Rate FiO2 10/13/19 16:21 16 10/13/19 14:17 Room Air 10/13/19 14:00 98.7 87 119/61 (80) 99 10/10/19 12:10 2.0 I&O- Last 24 Hours up to 6 AM 10/13/19 06:00 Intake Total 1010.0 ml Output Total 1000 ml Balance 10.0 ml Laboratory Data 24H LABS Laboratory Tests 2 10/12/19 17:13: Bedside Glucose (Misc Panel) 160H 10/12/19 20:32: Bedside Glucose (Misc Panel) 151H 10/13/19 06:56: Nucleated Red Blood Cells % (auto) 0.3H, Anion Gap 9, Glomerular Filtration Rate 12.6L, Calcium Level 7.4L, C-Reactive Protein, Quantitative 7.54H 10/13/19 11:35: Bedside Glucose (Misc Panel) 143H 10/13/19 16:20: Bedside Glucose (Misc Panel) 223H CBC/BMP Laboratory Tests 10/13/19 06:56 Microbiology Microbiology 10/07/19 Wound Culture - Final, Complete 10/05/19 Wound Culture - Final, Complete Enterococcus Faecalis Corynebacterium Species 10/05/19 Anaerobic Culture - Final, Complete Anaerobic Cocci 10/03/19 Blood Culture - Final, Complete Corynebacterium Sp. Not Jk 10/03/19 Blood Culture - Final, Complete NO GROWTH AFTER 5 DAYS MERLENE GAMEZ MD Oct 13, 2019 16:41
--- NOTE | 2019-10-13 17:17 | IPN ---
DATE: 10/13/2019 SUBJECTIVE: Patient is seen and examined this morning at bedside and reports she is doing okay. She feels like she is still having some pain in her lower extremities but only when she works with physical therapy, and it improves when she is at rest. Her abdomen continues to be quite swollen, and that is causing her some mild difficulties with breathing and with some just generalized discomfort. OBJECTIVE: Vital signs: Temperature 98.3, pulse 75, respiratory rate 18, blood pressure 98/45, saturating 100% on room air. Patient had a liter of fluid out of dialysis yesterday. PHYSICAL EXAMINATION: GENERAL: Patient is awake, alert, oriented in no acute distress, resting comfortably in bed. HEENT: Head is Normocephalic, atraumatic. Extraocular muscles intact (EOMI). Pupils equal, round, and reactive to light. Mucous membranes moist. No jugular venous distention (JVD). CARDIOVASCULAR: Regular rate and rhythm. Normal S1 and S2. Systolic murmur. RESPIRATORY: Diminished breath sounds bilaterally with no wheezes, crackles, rhonchi. ABDOMEN: Quite distended with ascitic fluid reaccumulation. Bowel sounds are present. Her belly is soft and moderately distended. EXTREMITIES: Left upper extremity fistula is patent with thrill palpable and functioning well. Left lower extremity has below-knee amputation (BKA) with dressing on the stump. Right foot has dressing applied as well. She has 1+ pitting edema in her bilateral lower extremities. NEUROLOGIC: She is alert and oriented times three with no focal neurologic deficits. LABORATORY REVIEW: White blood cell count of 10.6, hemoglobin 8.7, hematocrit 30.3, platelet count of 103. Sodium 139, potassium 3.9, chloride 102, bicarbonate 28, BUN 30, creatinine 3.78, glucose 103, calcium 7.4, CRP of 7.54. ASSESSMENT AND PLAN: 1. End-stage renal disease, on hemodialysis Tuesday, Tuesday, Tuesday. Patient's pressures have continued to be low. She is being dialyzed and as much fluid as can be tolerated is being taken off, but it is, once again, limited by her low blood pressure. She is continued on midodrine and received albumin support with dialysis to allow more fluid to be removed. She will receive her next paracentesis on Tuesday. She had 9 liters taken out this [place], and fluid seems to reaccumulate more with each visit. 2. Decompensated cirrhosis with recurrent ascites. Patient gets weekly paracenteses. As stated above, she previously had 9.4 liters removed and will have a repeat paracentesis on Tuesday. Continue with albumin with dialysis to help with low blood pressure. 3. Decompensated diastolic congestive heart failure. She is chronically volume overloaded. Will continue with fluid removal during dialysis sessions as tolerated by her blood pressure as well as with midodrine and albumin during hemodialysis. 4. Secondary hyperparathyroidism of renal origin. Calcium is acceptable. We will continue with Calcitriol and calcium carbonate. Her parathyroid hormone level is optimized for her. 5. Anemia of chronic kidney disease and also related to cirrhosis, iron deficiency, and chronic inflammatory state. We will continue with Aranesp with dialysis as hemoglobin continues to be stable. 6. Chronic hypotension. Patient is continued on midodrine three times daily. 7. Protein calorie malnutrition. Poor healing wounds. Will continue to encourage protein intake and Nepro.
[2019-10-13 18:00] VITALS: BP 84/32
[2019-10-13 22:00] VITALS: BP 105/55
[2019-10-13] MEDS: GABAPENTIN 300 MG CAP PO SCH (22:14)
[2019-10-13] MEDS: traZODone 100 MG TAB PO SCH (22:14)
[2019-10-13] MEDS: SIMVASTATIN 20 MG TAB PO SCH (22:14)
[2019-10-13] MEDS: LEVEMIR (INSULIN DETEMIR) 1 UNITS/0.01ML SC SCH (22:15)
[2019-10-13] MEDS: NYSTATIN 100,000 UNITS/GM TOPICAL PWD 15 GM TOP PRN (22:15)
[2019-10-14] VITALS (7 sets, daily range): BP systolic 88–99; BP diastolic 44–52
[2019-10-14] MEDS: VANCOMYCIN ORAL SOL 250MG/5ML ORAL SYRINGE PO SCH ×4 (02:10→21:00)
[2019-10-14] MEDS: LEVOTHYROXINE 125MCG TABLET (0.125MG) PO SCH (05:54)
[2019-10-14] MEDS: GENTAMICIN SULFATE 0.1% OINT 15 GM TOP SCH ×2 (05:55→21:01)
[2019-10-14 07:02] LABS: HEMATOCRIT 32.9 % (36.0-47.0); HEMOGLOBIN 9.7 g/dl (12.0-15.5); MEAN CORPUSCULAR HEMOGLOBIN 28.5 pg (27.0-33.0); MEAN CORPUSCULAR HGB CONC 29.5 g/dl (32.0-36.5); MEAN CORPUSCULAR VOLUME 96.8 fl (80.0-96.0); PLATELET COUNT, AUTOMATED 113 10^3/uL (150-450); WHITE BLOOD COUNT 10.9 10^3/uL (4.0-10.0)
[2019-10-14] MEDS: HumaLOG INSULIN (NovoLOG) PER UNIT SC SCH ×4 (07:30→21:00)
[2019-10-14] MEDS: rOPINIRole 2MG TAB PO SCH ×2 (07:34→20:59)
[2019-10-14] MEDS: CALCITRIOL 0.25 MCG CAP (S0169) PO SCH (07:36)
[2019-10-14] MEDS: CALCIUM CARBONATE 500 MG CHEW U/D PO SCH ×3 (07:36→20:59)
[2019-10-14] MEDS: FAMOTIDINE 20 MG TAB PO SCH (07:36)
[2019-10-14] MEDS: oxyCODONE 5MG TAB PO PRN ×2 (07:36→16:32)
[2019-10-14] MEDS: DULoxetine 30 MG CAP (CYMBALTA) PO SCH (07:36)
[2019-10-14] MEDS: MIDODRINE 5 MG TAB PO SCH ×3 (07:36→16:26)
[2019-10-14] MEDS: LINEZOLID 600MG TABLET (ZYVOX) PO SCH ×2 (07:37→20:59)
--- NOTE | 2019-10-14 20:10 | IPN ---
DATE: 10/14/2019 Mrs. Hernandez is seen this morning on her bedside. She is feeling slightly better compared to yesterday. She has a large abdominal ascites and does feel bloated. She denies any nausea or vomiting. She has no dyspnea or chest pain. She is dialyzed on Tuesday, Tuesday and Tuesday schedule and was last dialyzed on Tuesday. The patient is also getting weekly paracentesis and 9.4 liters of fluid was removed just last week. On physical exam, temperature 97.9 degrees Fahrenheit, heart rate 77 per minute and respiratory rate 18 per minute. Blood pressure 95/50 mmHg and oxygen saturation 97% on room air. Head is atraumatic. She is chronically ill looking and has significant muscle wasting. Neck is supple and without JVD or thyroid enlargement. Heart sounds irregular in rhythm and lungs with slightly diminished breath sounds at bases. Abdomen markedly distended with large amount of ascites which is nontender. Extremities without any cyanosis or clubbing. Her left leg stump and right foot wound are both wrapped in dressings. Neurologically she is awake, alert and at her baseline mentation. Today's labs show WBC count 10.9, hemoglobin 9.7 and hematocrit 32.9. Platelets 113. Sodium 139 and potassium 3.9. Her chemistry was done yesterday and no chemistry done today. BUN was 30 and creatinine 3.78. C-reactive protein was down to 7.54. PROBLEMS: 1. End-stage renal disease. The patient is regularly dialyzed on Tuesday, Tuesday and Tuesday schedule and we will try to dialyze her tomorrow unless she gets her paracentesis tomorrow. In case of paracentesis we will plan on dialyzing her on Tuesday. Her volume status and electrolytes have been stable and there is no emergent need for dialysis today. Her labs should also be repeated tomorrow. 2. Cirrhosis of liver with recurrent ascites. The patient is hoping to get TIPS procedure done for her recurrent ascites. In the meantime she gets weekly paracentesis and is likely to have it done again tomorrow or Tuesday. She should be given IV albumin at the time of her paracentesis. 3. Anemia. Her anemia has been stable and does not need any urgent intervention. 4. Infected wounds on left leg stump and right foot. The patient has significant peripheral vascular disease and wounds are not healing due to that. She continues with wound care and antibiotics. 5. Congestive heart failure. This is a chronic issue due to fluid noncompliance and hypotension. We are unable to remove too much fluid with dialysis and also she gets recurrent ascites which makes it difficult to draw fluid due to her hepatic failure. Her long-term prognosis remains at least guarded. 6. Hypotension. She has chronic hypotension and remains on midodrine which will be continued.
[2019-10-14] MEDS: traZODone 100 MG TAB PO SCH (20:59)
[2019-10-14] MEDS: GABAPENTIN 300 MG CAP PO SCH (20:59)
[2019-10-14] MEDS: LEVEMIR (INSULIN DETEMIR) 1 UNITS/0.01ML SC SCH (20:59)
[2019-10-14] MEDS: SIMVASTATIN 20 MG TAB PO SCH (20:59)
[2019-10-15 02:00] VITALS: BP 95/44
[2019-10-15] MEDS: VANCOMYCIN ORAL SOL 250MG/5ML ORAL SYRINGE PO SCH ×4 (03:09→21:27)
[2019-10-15 06:00] VITALS: BP 94/48
[2019-10-15] MEDS: HumaLOG INSULIN (NovoLOG) PER UNIT SC SCH ×4 (07:30→21:00)
[2019-10-15] MEDS: CALCIUM CARBONATE 500 MG CHEW U/D PO SCH ×3 (09:37→21:27)
[2019-10-15] MEDS: LINEZOLID 600MG TABLET (ZYVOX) PO SCH ×2 (09:38→21:27)
[2019-10-15] MEDS: MIDODRINE 5 MG TAB PO SCH ×3 (09:38→16:51)
[2019-10-15] MEDS: rOPINIRole 2MG TAB PO SCH ×2 (09:38→21:27)
[2019-10-15] MEDS: FAMOTIDINE 20 MG TAB PO SCH (09:38)
[2019-10-15] MEDS: CALCITRIOL 0.25 MCG CAP (S0169) PO SCH (09:38)
[2019-10-15] MEDS: DULoxetine 30 MG CAP (CYMBALTA) PO SCH (09:38)
[2019-10-15] MEDS: GENTAMICIN SULFATE 0.1% OINT 15 GM TOP SCH ×2 (09:40→21:28)
[2019-10-15] MEDS: LEVOTHYROXINE 125MCG TABLET (0.125MG) PO SCH (09:44)
[2019-10-15] MEDS: MORPHINE 2 MG/ML 1ML VIAL (J2270) IV PRN (09:45)
--- NOTE | 2019-10-15 13:50 | IPNPDOC ---
Text Note Date of Service The patient was seen on 10/14/19. NOTE SUBJECTIVE: 68-year-old female with past medical history of end-stage renal disease on dialysis, cirrhosis, diabetes mellitus, hypertension, hypothyroidism, peripheral artery disease, chronic hypotension, was admitted for bilateral lower extremity and sacral wounds. She underwent a partial amputation at Dr. Osorio's office yesterday, who then sent her to the hospital for further ev aluation. She reports having worsening wounds noted. The past few months, underwent an angioplasty of the right lower extremity at one week ago by interventional radiology. Otherwise, she is currently comfortable and without any complaints, reports mild pain/discomfort in her wounds. She denies any shortness of breath, chest pain, nausea, vomiting, abdominal pain or diarrhea. She usually gets weekly paracentesis on , has 5-6 L drained on average, scheduled for paracentesis today by IR. PHYSICAL EXAMINATION: VITAL SIGNS: Please see below. GENERAL: No distress HEENT: Normocephalic, atraumatic, moist mucous membranes NECK: Supple CARDIOVASCULAR EXAMINATION: S1, S2, systolic murmur appreciated RESPIRATORY EXAMINATION: Scattered rhonchi, no wheezing ABDOMINAL EXAMINATION: Soft, distended, positive bowel sounds, significant flank edema. EXTREMITIES: LUE AV fistula, s/p left BKA SKIN: B/L LE wounds with dressing in place, C/D/I LABORATORY DATA, IMAGING STUDIES, MICROBIOLOGY: Please see below. A/P: 68-year-old female with past medical history of end-stage renal disease, cirrhosis, hypertension, hypothyroidism, peripheral artery disease, diabetes mellitus and chronic hypertension is admitted for multiple wounds. # Multiple lower extremity and sacral wounds: Right foot Osteomyelitis, status post ray amputation of first digit in the right foot. OR cultures grew enterococcus, Corynebacterium and anaerobes, continue Zyvox by mouth, discontinued Merrem. C. difficile, continue oral vancomycin. Evaluated by vascular surgery, patient may benefit from surgical intervention on stump to improve wound healing, but patient is not happy about the idea of another surgery given her overall prognosis. Patient is scheduled for left lower extremity angiogram by IR later this month. ID following # ESRD Usually gets hemodialysis Tuesday, Tuesday, Tuesday, compliance is an issue. HD per nephrology. Continue Patiromer, Aransep and calcium carbonate. # Cirrhosis: Gets weekly paracentesis, status post paracentesis on Tuesday, will monitor for need of further paracentesis. # Chronic hypotension: Continue Midodrine 5 mg 3 times a day # Diabetes mellitus Continue Levemir to 10 units at bedtime. Sliding scale insulin with fingersticks before every meal see and at bedtime # Hypothyroidism. Continue levothyroxine. # Peripheral artery disease. Status post right lower extremity angioplasty one week ago by interventional radiology. 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
--- NOTE | 2019-10-15 13:51 | IPNPDOC ---
Text Note Date of Service The patient was seen on 10/15/19. NOTE SUBJECTIVE: 68-year-old female with past medical history of end-stage renal disease on dialysis, cirrhosis, diabetes mellitus, hypertension, hypothyroidism, peripheral artery disease, chronic hypotension, was admitted for bilateral lower extremity and sacral wounds. She underwent a partial amputation at Dr. Osorio's office yesterday, who then sent her to the hospital for further ev aluation. She reports having worsening wounds noted. The past few months, underwent an angioplasty of the right lower extremity at one week ago by interventional radiology. Otherwise, she is currently comfortable and without any complaints, reports mild pain/discomfort in her wounds. She denies any shortness of breath, chest pain, nausea, vomiting, abdominal pain or diarrhea. She usually gets weekly paracentesis on , has 5-6 L drained on average, scheduled for paracentesis today. PHYSICAL EXAMINATION: VITAL SIGNS: Please see below. GENERAL: No distress HEENT: Normocephalic, atraumatic, moist mucous membranes NECK: Supple CARDIOVASCULAR EXAMINATION: S1, S2, systolic murmur appreciated RESPIRATORY EXAMINATION: Scattered rhonchi, no wheezing ABDOMINAL EXAMINATION: Soft, distended, positive bowel sounds, significant flank edema. EXTREMITIES: LUE AV fistula, s/p left BKA SKIN: B/L LE wounds with dressing in place, C/D/I LABORATORY DATA, IMAGING STUDIES, MICROBIOLOGY: Please see below. A/P: 68-year-old female with past medical history of end-stage renal disease, cirrhosis, hypertension, hypothyroidism, peripheral artery disease, diabetes mellitus and chronic hypertension is admitted for multiple wounds. # Multiple LE and sacral wounds: Right foot Osteomyelitis, status post ray amputation of first digit in the right foot. OR cultures grew enterococcus, Corynebacterium and anaerobes, continue Zyvox by mouth, discontinued Merrem. C. difficile, continue oral vancomycin. Evaluated by vascular surgery, patient may benefit from surgical intervention on stump to improve wound healing, but patient is not happy about the idea of another surgery given her overall prognosis. Patient is scheduled for left lower extremity angiogram by IR later this month. ID following # ESRD Usually gets hemodialysis Tuesday, Tuesday, Tuesday, compliance is an issue. HD per nephrology - assistance appreciated Continue Patiromer, Aransep and calcium carbonate. # Cirrhosis - plan for therapeutic paracentesis today # Chronic hypotension - Continue Midodrine 5 mg 3 times a day # Diabetes mellitus Continue Levemir to 10 units at bedtime. Sliding scale insulin with fingersticks before every meal see and at bedtime # Hypothyroidism. Continue levothyroxine. # Peripheral artery disease. 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
--- NOTE | 2019-10-15 14:23 | IPN ---
DATE: 10/15/2019 Mrs. Hernandez is seen this morning on her bedside. She is not feeling well today and reports nausea and vomiting. She is waiting for paracentesis today. She has large amount of ascites and has been uncomfortable. She has no fever or chills. PHYSICAL EXAMINATION: Temperature 98.5 degrees Fahrenheit, heart rate 82 per minute and respiratory rate 20 per minute. Blood pressure 94/48 mmHg, which is about her baseline. Oxygen saturation 94% on room air. Head is atraumatic. Neck: Supple and without any abnormal jugular venous distention (JVD). Lungs: Sound clear to auscultation. Abdomen is obese with large amount of ascites and bowel sounds are present. Extremities: Have no cyanosis or clubbing. She has a left [id number]-[id number] amputation with her left leg stump wrapped in dressing. She also has a dressing on her right foot where there is a wound. The patient did not have any new labs today. PROBLEMS: 1. End-stage renal disease. The patient is due for hemodialysis today and we will plan to dialyze her later this afternoon. Her blood pressure has been low and we will not remove any fluid. She is also likely to have a paracentesis done today, which will prohibit any further fluid removal. 2. Cirrhosis of liver with recurrent ascites. The patient has large amount of ascites accumulated once again and is anticipating a paracentesis today. 3. Anemia. Her anemia has been stable and does not need any intervention. She will get another CBC within the next day or so.
[2019-10-15] MEDS: oxyCODONE 5MG TAB PO PRN (14:37)
[2019-10-15 16:28] LABS: APPEARANCE, BODY FLUID HAZY (CLEAR); PERITONEAL FL COLOR YELLOW (COLORLESS); SOURCE, BODY FLUID PERITONEAL
[2019-10-15 16:45] LABS: SOURCE, BODY FLUID GLUCOSE PERITONEAL
[2019-10-15] MEDS: LEVEMIR (INSULIN DETEMIR) 1 UNITS/0.01ML SC SCH (21:00)
[2019-10-15] MEDS: SIMVASTATIN 20 MG TAB PO SCH (21:27)
[2019-10-15] MEDS: GABAPENTIN 300 MG CAP PO SCH (21:27)
[2019-10-15] MEDS: traZODone 100 MG TAB PO SCH (21:27)
[2019-10-15 22:00] VITALS: BP 97/44
[2019-10-16 02:00] VITALS: BP 86/40
[2019-10-16] MEDS: VANCOMYCIN ORAL SOL 250MG/5ML ORAL SYRINGE PO SCH ×4 (02:36→21:34)
[2019-10-16] MEDS: LEVOTHYROXINE 125MCG TABLET (0.125MG) PO SCH (05:54)
[2019-10-16] MEDS: MIDODRINE 5 MG TAB PO SCH ×3 (05:54→15:45)
[2019-10-16] MEDS: FAMOTIDINE 20 MG TAB PO SCH (05:54)
[2019-10-16] MEDS: CALCITRIOL 0.25 MCG CAP (S0169) PO SCH (05:54)
[2019-10-16] MEDS: DULoxetine 30 MG CAP (CYMBALTA) PO SCH (05:54)
[2019-10-16] MEDS: rOPINIRole 2MG TAB PO SCH ×2 (05:54→21:33)
[2019-10-16 06:00] VITALS: BP 87/40
[2019-10-16] MEDS: HumaLOG INSULIN (NovoLOG) PER UNIT SC SCH ×4 (07:30→21:00)
[2019-10-16 08:19] LABS: HEMATOCRIT 31.4 % (36.0-47.0); HEMOGLOBIN 9.5 g/dl (12.0-15.5); MEAN CORPUSCULAR HEMOGLOBIN 28.8 pg (27.0-33.0); MEAN CORPUSCULAR HGB CONC 30.3 g/dl (32.0-36.5); MEAN CORPUSCULAR VOLUME 95.2 fl (80.0-96.0); PLATELET COUNT, AUTOMATED 115 10^3/uL (150-450); WHITE BLOOD COUNT 18.3 10^3/uL (4.0-10.0)
[2019-10-16 08:46] LABS: ALBUMIN 1.9 GM/DL (3.2-5.2); CALCIUM LEVEL 7.4 MG/DL (8.8-10.2); CREATININE FOR GFR 6.65 MG/DL (0.55-1.30); GLOMERULAR FILTRATION RATE 6.6 (>39); PHOSPHORUS LEVEL 9.3 MG/DL (2.5-4.9); POTASSIUM SERUM 4.7 MEQ/L (3.5-5.1)
[2019-10-16] MEDS: GENTAMICIN SULFATE 0.1% OINT 15 GM TOP SCH ×2 (09:00→21:36)
[2019-10-16] MEDS: CALCIUM CARBONATE 500 MG CHEW U/D PO SCH ×3 (09:00→21:33)
[2019-10-16] MEDS ORDERED: HEPARIN 1,000 UNITS/ML 10ML VIAL (FOR RADIOLOGY& DIALYSIS ONLY) IV ONE (11:00)
[2019-10-16] MEDS: LINEZOLID 600MG TABLET (ZYVOX) PO SCH ×2 (13:28→21:33)
[2019-10-16] MEDS: oxyCODONE 5MG TAB PO PRN (13:29)
--- NOTE | 2019-10-16 14:08 | IPN ---
DATE OF VISIT: 10/16/2019 Mrs. Hernandez seen this morning on her bedside during hemodialysis. She has had paracentesis done yesterday and 10.4 liters fluid was removed. She is feeling much better and her abdominal distension has improved. She is questioning her fluid restriction and I have explained to her the rational for fluid restriction. She has no dyspnea, chest pain, nausea or vomiting. She does not like to drink Nepro and is requesting some supplement with strawberry fever. On physical exam, temperature 97.7 degrees Fahrenheit, heart rate 88 per minute and respiratory rate 16 per minute. Blood pressure 87/40 mmHg and oxygen saturation 97% on room air. She is chronically ill looking but not in any acute distress. Neck is supple and without jugular venous distention (JVD) or thyroid enlargement. Heart sounds are regular and lungs clear to auscultation. Abdomen is soft and minimally distended now as ascites has been drained. Bowel sounds are present. Extremities have no cyanosis or clubbing. She has a left tekcw-ymf-rmwz amputation and stump is wrapped in dressing. She also has a dressing on her right foot where she has an infected wound. Today's labs show sodium 134, potassium 4.7, CO2 20, BUN 56 and creatinine 6.65. Calcium 7.4 and phosphorus 9.3. Albumin level is only 1.9. WBC count is up to 18.3, hemoglobin 9.5 and hematocrit 31.4. PROBLEMS: 1. End-stage renal disease. Patient is being dialyzed today and will complete her dialysis treatment. No fluid is being removed as she had paracentesis and 10.4 liters fluid was removed just yesterday. 2. Hyponatremia. This is mild and related to her liver and kidney disease. No intervention is indicated and it is likely to improve with dialysis today. 3. Protein calorie malnutrition. She does not like to drink Nepro and I am going to switch her to Ensure strawberry favor as she likes to drink strawberry flavor, and we will encourage her to drink 1 can at least twice a day. Hypoalbuminemia is related to her advanced liver disease. 4. Anemia. Her anemia is stable and will continue with Aranesp treatment once a week. 5. Infected wound left leg stump and right foot. Patient continues with wound care and dressing changes. She is also on Zyvox 600 mg twice a day. 6. Cirrhosis of liver with recurrent ascites. This is a chronic issue and patient gets paracentesis once a week. She had a paracentesis done just yesterday. She is scheduled for transjugular intrahepatic portosystemic shunt (TIPS) procedure in October.
[2019-10-16 15:16] VITALS: BP 77/42
[2019-10-16 18:00] VITALS: BP 99/46
--- NOTE | 2019-10-16 19:27 | IPNPDOC ---
Date Seen The patient was seen on 10/16/19. Progress Note SUBJECTIVE: 68-year-old female with past medical history of end-stage renal disease on dialysis, cirrhosis, diabetes mellitus, hypertension, hypothyroidism, peripheral artery disease, chronic hypotension, was admitted for bilateral lower extremity and sacral wounds, status post ray amputation of right foot first digit. OR cultures grew Corynebacterium, patient on Zyvox. Hospitalization was competent by C. difficile, currently being treated with oral vancomycin. Patient usually gets weekly paracentesis, status post 2 paracenteses so far during hospitalization, removal of 10 L during yesterday's paracentesis. Patient evaluated during dialysis today, reports lower extremity pain, no other complaints at this time. She reports improvement in diarrhea. 10 point review of system was negative except for above PHYSICAL EXAMINATION: VITAL SIGNS: Please see below. GENERAL: No distress HEENT: Normocephalic, atraumatic, moist mucous membranes NECK: Supple CARDIOVASCULAR EXAMINATION: S1, S2, systolic murmur appreciated RESPIRATORY EXAMINATION: Scattered rhonchi, no wheezing ABDOMINAL EXAMINATION: Soft, non-distended, positive bowel sounds EXTREMITIES: Left upper extremity AV fistula, status post left lower extremity BKA SKIN: Bilateral lower extremity wounds with dressing in place, clean, dry and intact. NEUROLOGICAL EXAMINATION: Alert and oriented 3, no focal deficits PSYCHIATRIC EXAMINATION: Calm and cooperative LABORATORY DATA, IMAGING STUDIES, MICROBIOLOGY: Please see below. DVT prophylaxis ordered?: No ASSESSMENT AND PLAN: 68-year-old female with past medical history of end-stage renal disease, cirrhosis, hypertension, hypothyroidism, peripheral artery disease, diabetes mellitus and chronic hypertension is admitted for multiple wounds. PROBLEMS: 1. Multiple lower extremity and sacral wounds: Right foot Osteomyelitis, status post ray amputation of first digit in the right foot. OR cultures grew enterococcus, Corynebacterium and anaerobes, continue Zyvox by mouth, discontinued Merrem. C. difficile, continue oral vancomycin. No plan for further surgical intervention at this time, scheduled for left lower extremity angiogram later this month by IR. EVAN velez appreciated, recommended rehabilitation placement, social worker delinquency prevention arranging. ID following 2. End-stage renal disease. Usually gets hemodialysis Tuesday, Tuesday, Tuesday, compliance is an issue. HD per nephrology. Continue Patiromer, Aransep and calcium carbonate. 2. Cirrhosis: Gets weekly paracentesis, status post paracentesis on Tuesday. 3. Chronic hypotension: Continue Midodrine 5 mg 3 times a day 4. Diabetes mellitus Sliding scale insulin with fingersticks before every meal see and at bedtime 5. Hypothyroidism. Continue levothyroxine. 6. Peripheral artery disease. 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 GI prophylaxis: Pepcid VS, I&O, 24H, Fishbone Vital Signs/I&O Vital Signs Date Time Temp Pulse Resp B/P (MAP) Pulse Ox O2 Delivery O2 Flow Rate FiO2 10/16/19 18:00 99/46 (63) 10/16/19 15:16 98.6 83 18 94 Room Air 10/10/19 12:10 2.0 I&O- Last 24 Hours up to 6 AM 10/16/19 06:00 Intake Total 600 ml Output Total 0 ml Balance 600 ml Laboratory Data 24H LABS Laboratory Tests 2 10/15/19 21:20: Bedside Glucose (Misc Panel) 144H 10/16/19 07:08: Bedside Glucose (Misc Panel) 105 10/16/19 08:05: Nucleated Red Blood Cells % (auto) 0.2H, Anion Gap 14, Glomerular Filtration Rate 6.6L, Calcium Level 7.4L, Phosphorus Level 9.3H, Albumin 1.9L 10/16/19 12:42: Bedside Glucose (Misc Panel) 122H 10/16/19 17:07: Bedside Glucose (Misc Panel) 182H CBC/BMP Laboratory Tests 10/16/19 08:05 Microbiology Microbiology 10/07/19 Wound Culture - Final, Complete MERLENE GAMEZ MD Oct 16, 2019 19:27
--- NOTE | 2019-10-16 20:45 | REP ---
Ultrasound-guided paracentesis The procedure was performed by ANTONIO Sierra, under the direct supervision of Dr. Rivas. The risks and benefits of the procedure were explained to the patient and informed consent was obtained both verbally and written. Directly prior to the start of the procedure, a formal timeout was completed in the procedure room. Under ultrasound guidance, the largest pocket of fluid in the left flank was localized and skin was marked. The skin was then prepped and draped in a sterile fashion. 10 ml of 1% lidocaine was used as a local anesthetic. Using ultrasound guidance, an 8-Danish multi side-hole catheter was inserted using trocar technique. 10,650 mL of yellow colored fluid was withdrawn and discarded. The patient tolerated the procedure well and there were no immediate complications. After the appropriate monitored convalescence the patient was discharged from the department. Reviewed by ANTONIO Song 10/15/2019 04:17 P Electronically Signed by Aureliano Rivas MD 10/16/2019 08:36 P
[2019-10-16] MEDS: traZODone 100 MG TAB PO SCH (21:34)
[2019-10-16] MEDS: SIMVASTATIN 20 MG TAB PO SCH (21:34)
[2019-10-16] MEDS: GABAPENTIN 300 MG CAP PO SCH (21:34)
[2019-10-16 22:00] VITALS: BP 79/39
[2019-10-17 02:00] VITALS: BP 80/39
[2019-10-17] MEDS: VANCOMYCIN ORAL SOL 250MG/5ML ORAL SYRINGE PO SCH ×4 (03:19→23:05)
[2019-10-17] MEDS: LEVOTHYROXINE 125MCG TABLET (0.125MG) PO SCH (05:33)
[2019-10-17 06:00] VITALS: BP 104/56
[2019-10-17] MEDS: HumaLOG INSULIN (NovoLOG) PER UNIT SC SCH ×4 (08:08→22:46)
[2019-10-17] MEDS: oxyCODONE 5MG TAB PO PRN ×2 (08:09→17:31)
[2019-10-17] MEDS: MIDODRINE 5 MG TAB PO SCH ×3 (08:09→17:31)
[2019-10-17 08:58] VITALS: BP 74/42
[2019-10-17] MEDS: FAMOTIDINE 20 MG TAB PO SCH (10:12)
[2019-10-17] MEDS: CALCIUM CARBONATE 500 MG CHEW U/D PO SCH ×3 (10:13→23:05)
[2019-10-17] MEDS: DULoxetine 30 MG CAP (CYMBALTA) PO SCH (10:13)
[2019-10-17] MEDS: LINEZOLID 600MG TABLET (ZYVOX) PO SCH ×2 (10:15→23:05)
[2019-10-17] MEDS: CALCITRIOL 0.25 MCG CAP (S0169) PO SCH (10:16)
[2019-10-17] MEDS: rOPINIRole 2MG TAB PO SCH ×2 (10:17→23:06)
[2019-10-17] MEDS: GENTAMICIN SULFATE 0.1% OINT 15 GM TOP SCH ×2 (10:27→23:06)
[2019-10-17] MEDS ORDERED: MORPHINE 2 MG/ML 1ML VIAL (J2270) IV ONE (10:30)
[2019-10-17] MEDS ORDERED: HEPARIN 1,000 UNITS/ML 10ML VIAL (FOR RADIOLOGY& DIALYSIS ONLY) IV ONE ×2 (11:30)
[2019-10-17 13:21] VITALS: BP 88/46
[2019-10-17 13:30] VITALS: BP 77/42
--- NOTE | 2019-10-17 19:22 | IPNPDOC ---
Date Seen The patient was seen on 10/17/19. Progress Note SUBJECTIVE: 68-year-old female with past medical history of end-stage renal disease on dialysis, cirrhosis, diabetes mellitus, hypertension, hypothyroidism, peripheral artery disease, chronic hypotension, was admitted for bilateral lower extremity and sacral wounds, status post ray amputation of right foot first digit. OR cultures grew Corynebacterium, patient on Zyvox. Hospitalization was competent by C. difficile, currently being treated with oral vancomycin. Patient usually gets weekly paracentesis, status post 2 paracenteses so far during hospitalization, removal of 10 L during yesterday's paracentesis. Patient evaluated during dialysis today, reports lower extremity pain, no other complaints at this time. She reports improvement in diarrhea. 10/17/2019 Patient reports worsening lower extremity pain, more severe on the left side compared to the right. Supposedly, patient is scheduled for a TIPS procedure tomorrow, as per nurse. 10 point review of system was negative except for above PHYSICAL EXAMINATION: VITAL SIGNS: Please see below. GENERAL: No distress HEENT: Normocephalic, atraumatic, moist mucous membranes NECK: Supple CARDIOVASCULAR EXAMINATION: S1, S2, systolic murmur appreciated RESPIRATORY EXAMINATION: Scattered rhonchi, no wheezing ABDOMINAL EXAMINATION: Soft, non-distended, positive bowel sounds EXTREMITIES: Left upper extremity AV fistula, status post left lower extremity BKA SKIN: Bilateral lower extremity wounds with dressing in place, clean, dry and intact, left inner thigh very sensitive to touch, moderate to severe tenderness with minimal palpation. NEUROLOGICAL EXAMINATION: Alert and oriented 3, no focal deficits PSYCHIATRIC EXAMINATION: Calm and cooperative LABORATORY DATA, IMAGING STUDIES, MICROBIOLOGY: Please see below. DVT prophylaxis ordered?: No ASSESSMENT AND PLAN: 68-year-old female with past medical history of end-stage renal disease, cirrhosis, hypertension, hypothyroidism, peripheral artery disease, diabetes mellitus and chronic hypertension is admitted for multiple wounds. PROBLEMS: 1. Multiple lower extremity and sacral wounds: Right foot Osteomyelitis, status post ray amputation of first digit in the right foot. OR cultures grew enterococcus, Corynebacterium and anaerobes, continue Zyvox by mouth, discontinued Merrem. C. difficile s/p vancomycin for 10 days PT eval appreciated, recommended rehabilitation placement, social services specialist arranging. ID following 2. End-stage renal disease. Usually gets hemodialysis Tuesday, Tuesday, Tuesday, compliance is an issue. HD per nephrology. Continue Patiromer, Aransep and calcium carbonate. 2. Cirrhosis: Gets weekly paracentesis, status post paracentesis on Tuesday. Q uestionable TIPS procedure, will discuss with IR. 3. Chronic hypotension: Continue Midodrine 5 mg 3 times a day 4. Diabetes mellitus Sliding scale insulin with fingersticks before every meal see and at bedtime 5. Hypothyroidism. Continue levothyroxine. 6. Peripheral artery disease. 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 GI prophylaxis: Pepcid VS, I&O, 24H, Fishbone Vital Signs/I&O Vital Signs Date Time Temp Pulse Resp B/P (MAP) Pulse Ox O2 Delivery O2 Flow Rate FiO2 10/17/19 18:01 18 10/17/19 17:31 Room Air 10/17/19 13:30 96.8 80 77/42 10/17/19 08:58 100 I&O- Last 24 Hours up to 6 AM 10/17/19 05:59 Intake Total 1060 ml Output Total 150 ml Balance 910 ml Laboratory Data 24H LABS Laboratory Tests 2 10/16/19 20:02: Bedside Glucose (Misc Panel) 172H 10/17/19 06:55: Bedside Glucose (Misc Panel) 113H 10/17/19 11:30: Bedside Glucose (Misc Panel) 180H 10/17/19 16:55: Bedside Glucose (Misc Panel) 129H Microbiology Microbiology 10/07/19 Wound Culture - Final, Complete MERLENE GAMEZ MD Oct 17, 2019 19:22
--- NOTE | 2019-10-17 19:24 | IPN ---
DATE: 10/17/2019 Mrs. Hernandez seen this morning on her bedside. She is complaining of pain in her left thigh from groin down to the stump. She has infected left leg stump for which she is receiving wound care. She is chronically nauseated but denies any vomiting today. She has no dyspnea or chest pain. She had hemodialysis yesterday because she missed dialysis on Tuesday due to paracentesis. She had 10.4 liters fluid removed on Tuesday. PHYSICAL EXAMINATION: Temperature 98.2 degrees Fahrenheit, heart rate 72 per minute and respiratory rate 18 per minute. Blood pressure this morning 104/56 mmHg and now it is 74/42 mmHg with oxygen saturation 100%. She has chronic hypotension for which she has been on midodrine. Her head is atraumatic. Neck is supple and without jugular venous distention (JVD) or thyroid enlargement. Heart sounds are regular. Lungs sound clear to auscultation. Abdomen has mild ascites and bowel sounds are normal. Extremities without any cyanosis or clubbing. She has a left [id number]-[id number] amputation and stump is wrapped in dressing. She also has dressing on her right foot. Neurologically, she is awake, alert and oriented times three. She did not have any new laboratories done today and her fingerstick blood sugar was 113 this morning. Yesterday, her labs were reviewed which were appropriate for end-stage renal disease and chronic anemia. PROBLEMS: 1. End-stage renal disease. The patient is regularly dialyzed on Tuesday, Tuesday and Tuesday schedule. She was dialyzed yesterday due to missed dialysis on Tuesday. We plan to dialyze her again this afternoon. We are not removing any fluid with dialysis due to chronic hypotension. She also had a large amount of paracentesis done on Tuesday due to which no fluid removal was done yesterday. 2. Anemia. Her anemia is stable and she will continue to receive Aranesp once a week with dialysis. 3. Cirrhosis of liver with recurrent ascites. The patient has been requiring frequent paracentesis and is going to have transjugular intrahepatic portosystemic shunt (TIPS) procedure done tomorrow by interventional radiology. Initially, this was scheduled for October 2019. However, it has been now changed to 10/18/2019 due to her worsening condition and rapid development and accumulation of ascites. With all of her chronic medical problems, she is currently optimized for any surgical intervention. I would recommend to give her IV albumin prior to procedure, 25 grams to prevent any anesthesia-related hypotension.
[2019-10-17] MEDS ORDERED: MORPHINE 10 MG/ML 1ML VIAL (J2270) IV ONE (21:00)
[2019-10-17 21:05] VITALS: BP 87/35
[2019-10-17] MEDS: GABAPENTIN 300 MG CAP PO SCH (23:05)
[2019-10-17] MEDS: traZODone 100 MG TAB PO SCH (23:06)
[2019-10-17] MEDS: SIMVASTATIN 20 MG TAB PO SCH (23:06)
--- NOTE | 2019-10-17 23:11 | REPVR ---
PROCEDURE INFORMATION: Exam: MR Left Lower Extremity Without Contrast, Femur Exam date and time: 10/17/2019 10:27 PM Age: 68 years old Clinical history: Pain; Other: Groin to stump; Prior surgery; Surgery date: 6+ months; Surgery type: Left leg amuptation; Additional info: Lle pain TECHNIQUE: Imaging protocol: MR of the Left femur without intravenous contrast. COMPARISON: MRI TIBIA WITHOUT CONTRAST 07/31/2019 2:04 PM FINDINGS: Bones/joints: Small knee joint effusion. No fracture or destructive changes in the femur. No bone marrow edema. Normal alignment. Soft tissues: Diffuse subcutaneous edema is noted throughout the leg. Generalized muscular atrophy. There is generalized intramuscular edema in the leg, more severely involving the quadriceps. No intramuscular abscess or mass is identified. No drainable subcutaneous fluid collection is seen. IMPRESSION: 1. Intramuscular edema in the leg maybe secondary to denervation, neuropathy, or myositis. No intramuscular abscess or mass is identified. 2. No fracture or signs of osteomyelitis. 3. Generalized subcutaneous edema may be seen in the setting of cellulitis, venous insufficiency, or other causes of systemic edema. Electronically signed by: Benjie Howe On 10/17/2019 23:11:15 PM
[2019-10-18] VITALS (12 sets, daily range): BP systolic 87–127; BP diastolic 46–78
[2019-10-18] MEDS: LEVOTHYROXINE 125MCG TABLET (0.125MG) PO SCH (05:56)
[2019-10-18] MEDS: oxyCODONE 5MG TAB PO PRN ×3 (05:57→21:58)
[2019-10-18] MEDS: HumaLOG INSULIN (NovoLOG) PER UNIT SC SCH ×4 (07:30→20:05)
[2019-10-18 07:49] LABS: HEMOGLOBIN 8.7 g/dl (12.0-15.5); MEAN CORPUSCULAR HEMOGLOBIN 28.7 pg (27.0-33.0); RED BLOOD COUNT 3.03 10^6/uL (4.00-5.40); WHITE BLOOD COUNT 10.7 10^3/uL (4.0-10.0)
[2019-10-18 07:50] LABS: PLATELET COUNT, AUTOMATED 83 10^3/uL (150-450)
[2019-10-18] MEDS: MIDODRINE 5 MG TAB PO SCH ×3 (08:00→17:39)
[2019-10-18 08:07] LABS: CALCIUM LEVEL 7.8 MG/DL (8.8-10.2); CREATININE FOR GFR 4.04 MG/DL (0.55-1.30); GLOMERULAR FILTRATION RATE 11.6 (>39); POTASSIUM SERUM 4.2 MEQ/L (3.5-5.1)
[2019-10-18] MEDS: DULoxetine 30 MG CAP (CYMBALTA) PO SCH (09:08)
[2019-10-18] MEDS: CALCITRIOL 0.25 MCG CAP (S0169) PO SCH (09:08)
[2019-10-18] MEDS: LINEZOLID 600MG TABLET (ZYVOX) PO SCH ×2 (09:08→21:58)
[2019-10-18] MEDS: rOPINIRole 2MG TAB PO SCH ×2 (09:09→20:06)
[2019-10-18] MEDS: FAMOTIDINE 20 MG TAB PO SCH (09:09)
[2019-10-18] MEDS: CALCIUM CARBONATE 500 MG CHEW U/D PO SCH ×3 (09:09→20:06)
[2019-10-18] MEDS: GENTAMICIN SULFATE 0.1% OINT 15 GM TOP SCH ×2 (09:43→21:58)
--- NOTE | 2019-10-18 14:29 | POST-OPPD ---
Postoperative Procedure Note Date Of Procedure: Oct 18, 2019 Time Of Procedure: 14:27 PREOPERATIVE DIAGNOSIS: ESLD. Refractory ascites POSTOPERATIVE DIAGNOSIS: same FINDINGS: ascites PROCEDURE: paracentesis 4 L removed. followed by TIPS procedure. see full report under imaging tab SURGEON: reed ANESTHESIA: general ESTIMATED BLOOD LOSS: < 15 ml COMPLICATIONS: none POSTOPERATIVE CONDITION: stable AMANDA HICKEY MD Oct 18, 2019 14:28
[2019-10-18] MEDS ORDERED: ONDANSETRON 4MG/2ML VIAL (J2405) IV PRN (14:30)
[2019-10-18] MEDS ORDERED: fentaNYL 100 MCG/2 ML INJECTION (J3010) IV PRN (14:30)
[2019-10-18] MEDS ORDERED: LR 1,000 ML IV SCH (14:30)
[2019-10-18] MEDS: ONDANSETRON 4MG/2ML VIAL (J2405) IV PRN (16:44)
--- NOTE | 2019-10-18 17:45 | REP ---
IR TIPS. IR Transjugular intrahepatic portosystemic shunt placement. IR Hepatic venous and wedge hepatic pressure measurement. IR Right neck ultrasound. IR Right groin ultrasound. IR Ultrasound-guided right femoral venous access per anesthesia request for venous access. Poor peripheral access. IR ultrasound guided right internal jugular vein access. IR CO2 portal venography. Indication : End stage liver disease, with refractory ascites. Physician: Dr. Henriquez. Procedure: The patient was advised of the benefits, risks and alternatives of the procedure and informed consent was obtained. The time-out was performed with verification of the patient's name, MRN, site and type of procedure to be performed. The patient was positioned in the supine position on the angiographic table. Ultrasound of the right upper quadrant was performed and demonstrates moderate ascites. Pre-procedure paracentesis was performed. Ultrasound was used to collins the site for paracentesis. The site was prepped and draped in the usual sterile fashion. A 5-Emirati paracentesis needle was used to access the right peritoneal space, yellow fluid was aspirated and the sheath was advanced over the needle into the peritoneal space. 4 liters of ascitic fluid was removed from the abdomen prior to the procedure. The sheath was removed at the end of the procedure , pressure held and hemostasis achieved. Anesthesia requested central venous access due to poor peripheral access. Therefore, ultrasound was used to evaluate the right common femoral vein. Ultrasound demonstrates patent and compressible right common femoral vein. The right groin was prepped and draped in the usual sterile fashion. The right common femoral vein was accessed under ultrasound guidance with a micropuncture kit. An 018 wire was advanced into the vein, the needle was removed over the wire. The micro sheath was advanced over the wire into the vein and the micro wire exchanged for an 035 wire. The micro sheath was exchanged for a stable 5 [place] vascular sheath. Anesthesia utilized this venous access for the duration of the procedure and in recovery. The right internal jugular vein access site for TIPS procedure was prepped and draped in the usual sterile fashion. Preliminary ultrasound of the right neck was performed demonstrating a patent and compressible right internal jugular vein. Local anesthesia using lidocaine was administered. Under ultrasound guidance, the right internal jugular vein was accessed with a micro introducer system. A cope wire was advanced into the vein and the needle was exchanged for a micro sheath. An Amplatz wire was advanced into the inferior vena cava , the micro sheath was removed over the wire. The tract was serially dilated under fluoroscopy guidance and a 10-Emirati sheath was advanced over the wire under fluoroscopy guidance into the inferior vena cava. Pressure measurements in the right atrium and IVC were obtained. Right atrial and IVC pressure 6 mmHg. Access was obtained into the second order branch of the right hepatic vein with a multipurpose catheter, under fluoroscopy guidance. A free hepatic venogram was performed demonstrating a normal appearing right hepatic vein. The hepatic pressure measured at 18 mmHg. The catheter was exchanged for a [place] balloon catheter. The balloon was inflated and the wedge hepatic pressure was obtained. Wedge hepatic pressure measurement 23 mmHg. The portosystemic pressure gradient or corrected sinusoidal pressure was 17 mmHg indicating portal hypertension. With the balloon inflated in the hepatic vein, a wedge hepatic CO2 portal venogram was performed and this demonstrates patent branches of the portal vein and portal venous anatomy. The balloon was deflated and the Estrellita balloon catheter was removed over the wire. The TIPS cannula and sheath were advanced over the wire under fluoroscopy guidance into the right hepatic vein. The tips needle was then advanced through the tip sheath into the right portal vein. Contrast was injected confirming location within the portal vein. A Bentson wire was then advanced through the TIPS cannula into the portal vein and then into the mesenteric vein. The 4-Emirati catheter was advanced over the wire into the portal vein. The tips sheath was then advanced over the wire under fluoroscopy guidance into the portal vein. Contrast was injected through the sheath confirming location within the portal vein. A Glidewire was manipulated through the portal vein into the splenic vein. A marking pigtail catheter was advanced over the wire into the splenic vein. The sheath was retracted. A venogram was performed which demonstrates patent splenic vein, main portal vein, left and right portal veins. No large gastric varices. Portal venous pressure was measured at 37 mmHg. The sheath was advanced over the wire and catheter into the main portal vein and the pigtail catheter was removed over the wire. An 8 -10 mm diameter 7 cm length controlled expansion [place] TIPS stent was advanced through the sheath and deployed under fluoroscopy guidance, extending from the proximal right portal vein to the distal hepatic vein. The deployment device was removed over the wire and subsequent angioplasty with a 10 mm [place] balloon was performed under fluoroscopy guidance through the stent. The balloon was deflated and removed over the wire. The pigtail catheter was advanced over the wire into the splenic vein. Post TIPS portal venography was performed and this demonstrates good flow through the TIPS stent all the way back to the heart. No filling of varices. Post stent placement, portal venous pressure was reduced to 7 mmHg. The pigtail catheter was retracted to the right atrium. Right atrial pressure 3 mmHg. T The post TIPS portosystemic pressure gradient or corrected sinusoidal pressure is 4 mmHg. The catheter and sheath were then removed, manual pressure held and hemostasis achieved. The patient tolerated the procedure well and was returned to the recovery in stable condition. EBL: Less than 15 ml. Complications: None. Impression: 1. Successful TIPS placement with reduction of mean portasystemic gradient from 31 to 4 mmHg. 2. Patient to start on lactulose and Rifaxamine if necessary. Patient to follow up in IR clinic in 3 months with ultrasound imaging. Thank you this referral. Electronically Signed by Juli Henriquez MD 10/18/2019 05:43 P
--- NOTE | 2019-10-18 18:23 | IPNPDOC ---
Date Seen The patient was seen on 10/18/19. Progress Note SUBJECTIVE: 68-year-old female with past medical history of end-stage renal disease on dialysis, cirrhosis, diabetes mellitus, hypertension, hypothyroidism, peripheral artery disease, chronic hypotension, was admitted for bilateral lower extremity and sacral wounds, status post ray amputation of right foot first digit. OR cultures grew Corynebacterium, patient on Zyvox. Hospitalization was competent by C. difficile, currently being treated with oral vancomycin. Patient usually gets weekly paracentesis, status post 2 paracenteses so far during hospitalization, removal of 10 L during yesterday's paracentesis. Patient evaluated during dialysis today, reports lower extremity pain, no other complaints at this time. She reports improvement in diarrhea. 10/17/2019 Patient reports worsening lower extremity pain, more severe on the left side compared to the right. Supposedly, patient is scheduled for a TIPS procedure tomorrow, as per nurse. 10/18/2019 Patient underwent TIPS procedure today, seen in PACU, no new complaints. She will be transferred to ICU for further monitoring. 10 point review of system was negative except for above PHYSICAL EXAMINATION: VITAL SIGNS: Please see below. GENERAL: No distress HEENT: Normocephalic, atraumatic, moist mucous membranes NECK: Supple CARDIOVASCULAR EXAMINATION: S1, S2, systolic murmur appreciated RESPIRATORY EXAMINATION: Scattered rhonchi, no wheezing ABDOMINAL EXAMINATION: Soft, non-distended, positive bowel sounds EXTREMITIES: Left upper extremity AV fistula, status post left lower extremity BKA SKIN: Bilateral lower extremity wounds with dressing in place, clean, dry and intact NEUROLOGICAL EXAMINATION: Alert and oriented 3, no focal deficits PSYCHIATRIC EXAMINATION: Calm and cooperative LABORATORY DATA, IMAGING STUDIES, MICROBIOLOGY: Please see below. DVT prophylaxis ordered?: No ASSESSMENT AND PLAN: 68-year-old female with past medical history of end-stage renal disease, cirrhosis, hypertension, hypothyroidism, peripheral artery disease, diabetes mellitus and chronic hypertension is admitted for multiple wounds. PROBLEMS: 1. Multiple lower extremity and sacral wounds: Right foot Osteomyelitis, status post ray amputation of first digit in the right foot. OR cultures grew enterococcus, Corynebacterium and anaerobes, continue Zyvox by mouth, discontinued Merrem. C. difficile, s/p vancomycin oral for 10 days PT eval appreciated, recommended rehabilitation placement, social insurance adviser arranging. ID following 2. End-stage renal disease. Usually gets hemodialysis Tuesday, Tuesday, Tuesday, compliance is an issue. HD per nephrology. Continue Patiromer, Aransep and calcium carbonate. 2. Cirrhosis: Status post TIPS procedure today, tolerated well, will monitor in ICU setting. 3. Chronic hypotension: Continue Midodrine 5 mg 3 times a day 4. Diabetes mellitus Sliding scale insulin with fingersticks before every meal see and at bedtime 5. Hypothyroidism. Continue levothyroxine. 6. Peripheral artery disease. 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 GI prophylaxis: Pepcid VS, I&O, 24H, Fishbone Vital Signs/I&O Vital Signs Date Time Temp Pulse Resp B/P (MAP) Pulse Ox O2 Delivery O2 Flow Rate FiO2 10/18/19 17:34 79 17 112/55 (74) 99 Room Air 10/18/19 15:47 97.8 10/18/19 14:45 2 I&O- Last 24 Hours up to 6 AM 10/18/19 06:00 Intake Total 660.0 ml Output Total 100 ml Balance 560.0 ml Laboratory Data 24H LABS Laboratory Tests 2 10/17/19 21:05: Bedside Glucose (Misc Panel) 173H 10/18/19 07:25: Nucleated Red Blood Cells % (auto) 0.2H, Immature Platelet Fraction 3.3, Anion Gap 8, Glomerular Filtration Rate 11.6L, Calcium Level 7.8L CBC/BMP Laboratory Tests 10/18/19 07:25 MERLENE GAMEZ MD Oct 18, 2019 18:23
[2019-10-18] MEDS: traZODone 100 MG TAB PO SCH (20:06)
[2019-10-18] MEDS: LACTULOSE 20 GM/30 ML SYRUP UD PO SCH (20:06)
[2019-10-18] MEDS: GABAPENTIN 300 MG CAP PO SCH (20:06)
[2019-10-18] MEDS: SIMVASTATIN 20 MG TAB PO SCH (20:06)
[2019-10-19] VITALS (30 sets, daily range): BP systolic 60–102; BP diastolic 33–56
[2019-10-19] MEDS ORDERED: ONDANSETRON 4 MG TAB (S0181) PO PRN (00:45)
[2019-10-19 05:23] LABS: ALBUMIN 2.2 GM/DL (3.2-5.2); BILIRUBIN,TOTAL 0.4 MG/DL (0.2-1.0); CALCIUM LEVEL 7.4 MG/DL (8.8-10.2); CREATININE FOR GFR 4.91 MG/DL (0.55-1.30); GLOMERULAR FILTRATION RATE 9.3 (>39); PHOSPHORUS LEVEL 8.3 MG/DL (2.5-4.9); TOTAL PROTEIN 4.8 GM/DL (6.4-8.2)
[2019-10-19 05:37] LABS: HEMATOCRIT 27.7 % (36.0-47.0); HEMOGLOBIN 7.9 g/dl (12.0-15.5); MEAN CORPUSCULAR HEMOGLOBIN 28.6 pg (27.0-33.0); MEAN CORPUSCULAR HGB CONC 28.5 g/dl (32.0-36.5); MEAN CORPUSCULAR VOLUME 100.4 fl (80.0-96.0); RED BLOOD COUNT 2.76 10^6/uL (4.00-5.40)
[2019-10-19 05:52] LABS: PLATELET COUNT, AUTOMATED 79 10^3/uL (150-450)
[2019-10-19 05:54] LABS: WHITE BLOOD COUNT 47.1 10^3/uL (4.0-10.0)
[2019-10-19] MEDS: DULoxetine 30 MG CAP (CYMBALTA) PO SCH (06:14)
[2019-10-19] MEDS: MIDODRINE 5 MG TAB PO SCH ×3 (06:14→16:23)
[2019-10-19] MEDS: LEVOTHYROXINE 125MCG TABLET (0.125MG) PO SCH (06:14)
[2019-10-19] MEDS: CALCIUM CARBONATE 500 MG CHEW U/D PO SCH ×3 (06:14→20:07)
[2019-10-19] MEDS: LINEZOLID 600MG TABLET (ZYVOX) PO SCH ×2 (06:14→20:06)
[2019-10-19] MEDS: FAMOTIDINE 20 MG TAB PO SCH (06:14)
[2019-10-19] MEDS: CALCITRIOL 0.25 MCG CAP (S0169) PO SCH (06:14)
[2019-10-19] MEDS: rOPINIRole 2MG TAB PO SCH ×2 (06:15→20:06)
[2019-10-19] MEDS: oxyCODONE 5MG TAB PO PRN (06:36)
[2019-10-19 06:40] LABS: HEMATOCRIT 28.7 % (36.0-47.0); HEMOGLOBIN 8.2 g/dl (12.0-15.5); MEAN CORPUSCULAR HEMOGLOBIN 28.7 pg (27.0-33.0); MEAN CORPUSCULAR HGB CONC 28.6 g/dl (32.0-36.5); MEAN CORPUSCULAR VOLUME 100.3 fl (80.0-96.0); RED BLOOD COUNT 2.86 10^6/uL (4.00-5.40)
[2019-10-19 06:51] LABS: PLATELET COUNT, AUTOMATED 81 10^3/uL (150-450); WHITE BLOOD COUNT 47.8 10^3/uL (4.0-10.0)
[2019-10-19 07:14] LABS: LYMPHOCYTES 7 % (16-44); MONOCYTES 2 % (0-5); NEUTROPHILS 89 % (28-66)
[2019-10-19 07:15] LABS: ANISOCYTOSIS 1+; HYPOCHROMASIA 1+; PLATELET ESTIMATE DECREASED (NORMAL)
[2019-10-19 07:16] LABS: POIKILOCYTOSIS 1+
[2019-10-19 07:17] LABS: TOXIC VACUOLATION 1+
[2019-10-19] MEDS: LACTULOSE 20 GM/30 ML SYRUP UD PO SCH ×3 (09:00→20:06)
[2019-10-19] MEDS ORDERED: MIDODRINE 5 MG TAB PO ONE (09:00)
[2019-10-19] MEDS: HumaLOG INSULIN (NovoLOG) PER UNIT SC SCH ×4 (10:32→20:08)
[2019-10-19 10:55] LABS: ABG BASE EXCESS -11.7 (-2.0-2.0); ABG HCO3 14.4 MEQ/L (22.0-26.0); ABG O2 SATURATION 96.2 % (95.0-99.0); ABG PARTIAL PRESSURE CO2 33.4 mmHg (35.0-45.0); ABG PARTIAL PRESSURE O2 97.8 mmHg (75.0-100.0); ABG TOTAL CO2 15.4 MEQ/L (23.0-31.0); ABG pH (ARTERIAL) 7.253 UNITS (7.350-7.450)
[2019-10-19] MEDS ORDERED: MEROPENEM INJ 500 MG in IV 1 EA IV ONE (11:00)
[2019-10-19 11:12] LABS: HEMATOCRIT 27.6 % (36.0-47.0); HEMOGLOBIN 8.1 g/dl (12.0-15.5); MEAN CORPUSCULAR HEMOGLOBIN 29.1 pg (27.0-33.0); MEAN CORPUSCULAR HGB CONC 29.3 g/dl (32.0-36.5); MEAN CORPUSCULAR VOLUME 99.3 fl (80.0-96.0); RED BLOOD COUNT 2.78 10^6/uL (4.00-5.40)
[2019-10-19 11:15] LABS: PLATELET COUNT, AUTOMATED 81 10^3/uL (150-450)
--- NOTE | 2019-10-19 11:19 | REP ---
KUB: Portable supine film. History: Status post TIPSS. Findings: There is a vascular stent projecting in the right upper quadrant. The bowel gas pattern is normal. Vascular calcification is noted. Impression: TIPSS stent seen in the right upper quadrant. Normal bowel gas pattern. Electronically Signed by Vel Martinez MD 10/19/2019 11:10 A
[2019-10-19] MEDS: VANCOMYCIN ORAL SOL 250MG/5ML ORAL SYRINGE PO SCH ×2 (12:07→18:06)
--- NOTE | 2019-10-19 12:19 | REP ---
PORTABLE CHEST X-RAY: SINGLE VIEW. HISTORY: Difficulty breathing. COMPARISON CHEST X-RAY: October 03, 2019 FINDINGS: The patient is rotated somewhat to the right for the current exposure. There are increased markings in the right upper lobe suggestive of pneumonia. Pleural angles are sharp. Cardiomediastinal silhouette is unremarkable. No bony abnormalities seen. IMPRESSION: Increased density right upper lobe consistent with pneumonia. Mildly prominent heart again noted. Otherwise no acute disease. Electronically Signed by Vel Martinez MD 10/19/2019 02:10 P
[2019-10-19] MEDS: GENTAMICIN SULFATE 0.1% OINT 15 GM TOP SCH ×2 (12:22→20:09)
--- NOTE | 2019-10-19 13:02 | REP ---
CT ABDOMEN AND PELVIS WITHOUT IV OR ORAL CONTRAST: HISTORY: Ascites. COMPARISON: CT study September 06, 2019. June 26, [address] study is also reviewed. CT FINDINGS: Preliminary digital [employer] professional [employer] radiograph shows an unremarkable bowel gas pattern. There are patchy alveolar opacities in the lung bases bilaterally, question pulmonary edema. There is a healing rib fracture on the left. Mild cardiomegaly is observed. A TIPS shunt is noted in place. There is mild diffuse abdominal ascites present, slightly improved from the June 16, 2019 study but somewhat more prominent than on September 06, 2019. There is diffuse extra-abdominal dermal thickening and subcutaneous edema, but this is significantly improved from both prior CT studies. There is mild diffuse edema in the mesenteric fat, which is improved. No free intraperitoneal air is observed. There are granulomatous calcifications in the spleen. Atrophic kidneys are observed bilaterally, as before. There is opaque material layering in the dependent portion of the gallbladder, unchanged, consistent with gallbladder calculi. IMPRESSION: TIPS shunt is seen in place in the liver. Mild to moderate diffuse abdominal ascites. Subcutaneous extra-abdominal edema and mesenteric fat edema are improved. Cholelithiasis and bilateral renal atrophy are noted. Electronically Signed by Vel Martinez MD 10/19/2019 02:11 P
--- NOTE | 2019-10-19 13:23 | IPNPDOC ---
Date Seen The patient was seen on 10/19/19. Progress Note SUBJECTIVE: 68-year-old female with past medical history of end-stage renal disease on dialysis, cirrhosis, diabetes mellitus, hypertension, hypothyroidism, peripheral artery disease, chronic hypotension, was admitted for bilateral lower extremity and sacral wounds, status post ray amputation of right foot first digit. OR cultures grew Corynebacterium, patient on Zyvox. Hospitalization was competent by C. difficile, currently being treated with oral vancomycin. Patient usually gets weekly paracentesis, status post 2 paracenteses so far during hospitalization, removal of 10 L during yesterday's paracentesis. Patient evaluated during dialysis today, reports lower extremity pain, no other complaints at this time. She reports improvement in diarrhea. 10/17/2019 Patient reports worsening lower extremity pain, more severe on the left side compared to the right. Supposedly, patient is scheduled for a TIPS procedure tomorrow, as per nurse. 10/18/2019 Patient underwent TIPS procedure today, seen in PACU, no new complaints. She will be transferred to ICU for further monitoring. 10/19/2019 Patient seen in the ICU, more lethargic today, reports dyspnea and lack of appetite. Blood pressure remains borderline low, normal for the patient but has been worse over the past 24 hours. 10 point review of system was negative except for above PHYSICAL EXAMINATION: VITAL SIGNS: Please see below. GENERAL: No distress HEENT: Normocephalic, atraumatic, moist mucous membranes NECK: Supple CARDIOVASCULAR EXAMINATION: S1, S2, systolic murmur appreciated RESPIRATORY EXAMINATION: Scattered rhonchi, no wheezing ABDOMINAL EXAMINATION: Soft, nontender, non-distended, positive bowel sounds EXTREMITIES: Left upper extremity AV fistula, status post left lower extremity BKA SKIN: Bilateral lower extremity wounds with dressing in place, clean, dry and intact NEUROLOGICAL EXAMINATION: Alert and oriented 3, no focal deficits PSYCHIATRIC EXAMINATION: Calm and cooperative LABORATORY DATA, IMAGING STUDIES, MICROBIOLOGY: Please see below. DVT prophylaxis ordered?: No ASSESSMENT AND PLAN: 68-year-old female with past medical history of end-stage renal disease, cirrhosis, hypertension, hypothyroidism, peripheral artery disease, diabetes mellitus and chronic hypertension is admitted for multiple wounds. PROBLEMS: 1. Multiple lower extremity and sacral wounds: Right foot Osteomyelitis, status post ray amputation of first digit in the right foot. OR cultures grew enterococcus, Corynebacterium and anaerobes, continue Zyvox by mouth, restarted Merrem due to increase in white count, lactate, patient presentation. Although clinically I believe this is all related to the TIPS procedure and not a new/worsening infectious process, we'll cover empirically for now. C. difficile, continue oral vancomycin. PT agustin appreciated, recommended rehabilitation placement, forensic social worker arranging. ID following 2. End-stage renal disease. Usually gets hemodialysis Tuesday, Tuesday, Tuesday, compliance is an issue. HD per nephrology. Continue Patiromer, Aransep and calcium carbonate. 2. Cirrhosis: Status post TIPS procedure yesterday, significant changes noted in patient's lab including elevated white count and lactate, significant changes in patient's mentation, more lethargic and dyspneic today. Symptoms and lab abnormalities are likely related to tips, restarted empiric antibiotics, will monitor over the next 24-[address] abdomen and pelvis today without any acute pathology. Had a discussion with the patient and her daughter regarding CODE STATUS and they're both adamant that patient remain full code for now. 3. Chronic hypotension: Continue Midodrine 5 mg 3 times a day 4. Diabetes mellitus Sliding scale insulin with fingersticks before every meal see and at bedtime 5. Hypothyroidism. Continue levothyroxine. 6. Peripheral artery disease. 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 GI prophylaxis: Pepcid VS, I&O, 24H, Fishbone Vital Signs/I&O Vital Signs Date Time Temp Pulse Resp B/P (MAP) Pulse Ox O2 Delivery O2 Flow Rate FiO2 10/19/19 12:00 98.0 83 22 60/33 (42) 96 Nasal Cannula 1.0 I&O- Last 24 Hours up to 6 AM 10/19/19 05:59 Intake Total 300 ml Output Total 0 ml Balance 300 ml Laboratory Data 24H LABS Laboratory Tests 2 10/19/19 03:53: Bedside Glucose (Misc Panel) 129H 10/19/19 04:50: Nucleated Red Blood Cells % (auto) 0.0, Anion Gap 13, Glomerular Filtration Rate 9.3L, Calcium Level 7.4L, Phosphorus Level 8.3H, Magnesium Level 2.0, Total Bilirubin 0.4, Aspartate Amino Transf (AST/SGOT) 106H, Alanine Aminotransferase (ALT/SGPT) 48, Alkaline Phosphatase 245H, Ammonia 11, Total Protein 4.8L, Albumin 2.2L, Albumin/Globulin Ratio 0.85L 10/19/19 06:30: Nucleated Red Blood Cells % (auto) 0.1H, Neutrophils # (Auto) , Neutrophils 89H, Band Neutrophils 2, Lymphocytes (Manual) 7L, Monocytes (Manual) 2, Hypochromasia 1+, Poikilocytosis 1+, Anisocytosis 1+, Toxic Vacuolation 1+, Platelet Estimate DECREASED, Lactic Acid Level 9.4*H, C-Reactive Protein, Quantitative 12.30H 10/19/19 10:35: Blood Gas Bicarbonate Standard 15.0L, Arterial Blood pH 7.253L, Arterial Blood Partial Pressure CO2 33.4L, Arterial Blood Partial Pressure O2 97.8, Arterial Blood Total CO2 15.4L, Arterial Blood HCO3 14.4L, Arterial Blood Base Excess - 11.7L, Arterial Blood Oxygen Saturation 96.2 10/19/19 10:55: Nucleated Red Blood Cells % (auto) 0.1H, Immature Platelet Fraction 5.9, Lactic Acid Followup at 4 Hours 11.2*H CBC/BMP Laboratory Tests 10/19/19 04:50 10/19/19 06:30 10/19/19 10:55 Microbiology Microbiology 10/19/19 Blood Culture, Received Pending 10/19/19 Blood Culture, Received Pending MERLENE GAMEZ MD Oct 19, 2019 13:23
--- NOTE | 2019-10-19 15:36 | IRPN ---
[facility] IR Progress Note IR Progress Note DATE: Oct 19, 2019 FOLLOW-UP: 1 day status post TIPS placement. Patient denies abdominal pain. Is on lactulose. Complains of shortness of breath. ON EXAMINATION: Abdomen soft non tender. non distended. Imaging: I personally reviewed today's CT abdomen/pelvis and CXR. There are increased reticular marking on chest radiograph and patchy ground glass opacities suggesting edema. TIPS in place. Minimal ascites in the abdomen. IMPRESSION: Day 1 post TIPS placement, in mild pulmonary edema. Will require close monitoring, diuresis and/or dialysis as appropriate for changes in fluid balance post TIPS. Right atrial pressure was not significantly increased pre or post TIPS. Continue lactulose. Will continue to follow. Please call [phone] with any questions or updates. Allergies Coded Allergies: heparin (Verified Adverse Reaction, Intermediate, Thrombocytopenia, 08/13/19) HIT Ab + 08/10/19 pregabalin (Verified Adverse Reaction, Intermediate, "feeling weird", SI thoughts., 06/07/19) vancomycin (Verified Adverse Reaction, Mild, DIARRHEA, 06/07/19) Current Medications Current Medications Medications (Trade) Dose Ordered Sig/Yvonne Route PRN Reason Start Time Stop Time Status Last Admin Dose Admin Calcitriol (Rocaltrol) 0.25 mcg DAILY PO 10/08/19 09:00 10/19/19 06:14 Calcium Carbonate (Oscal) 500 mg DAILY PO 10/03/19 09:00 10/03/19 19:17 DC Calcium Carbonate (Tums) 500 mg AC PO 10/04/19 07:30 10/06/19 10:26 DC 10/06/19 08:12 Calcium Carbonate (Tums) 500 mg TID PO 10/06/19 09:00 10/19/19 06:14 Calcium Carbonate (Tums) 1,000 mg PC PRN PO HEARTBURN/INDIGESTION 10/03/19 13:15 10/03/19 19:17 DC Ceftaroline Fosamil 200 mg/ Dextrose 50 ml @ 50 mls/hr Q12H IV 10/03/19 15:00 Cancel Ceftaroline Fosamil 200 mg/ Dextrose 50 ml @ 50 mls/hr Q12H IV 10/03/19 18:00 10/04/19 18:30 DC 10/04/19 17:29 Ceftaroline Fosamil 300 mg/ Dextrose 50 ml @ 50 mls/hr Q24H IV 10/03/19 13:15 10/03/19 13:44 DC Darbepoetin Yordan (Aranesp (Dialysis Use)) 200 mcg HD IV 10/03/19 19:30 Dextrose (Dextrose 50%) 25 ml ASDIRECTED PRN IV SEE LABEL COMMENTS 10/03/19 13:15 Diphenhydramine HCl (Benadryl) 25 mg Q4H PRN PO ITCHING 10/03/19 13:15 10/14/19 16:32 Duloxetine HCl (Cymbalta) 30 mg DAILY PO 10/03/19 09:00 10/19/19 06:14 Famotidine (Pepcid) 20 mg DAILY PO 10/09/19 09:00 10/19/19 06:14 Fentanyl Citrate (Sublimaze) 25 mcg Q5MP PRN IV PAIN LEVEL 5-10 10/18/19 14:30 10/18/19 15:30 DC Fentanyl Citrate (Sublimaze) 25 mcg Q5MP PRN IV PAIN LEVEL 5-10 10/05/19 12:30 10/05/19 13:30 DC Gabapentin (Neurontin) 300 mg QHS PO 10/03/19 21:00 10/18/19 20:06 Gentamicin Sulfate (Garamycin 0.1% Topical Ointment) To RT great toe wound BID TOP 10/10/19 09:00 10/19/19 12:22 Glucagon (Glucagon) 1 mg ASDIRECTED PRN SC SEE LABEL COMMENTS 10/03/19 13:15 10/10/19 06:39 Glucose (Glucose) 16 GM ASDIRECTED PRN PO SEE LABEL COMMENTS 10/03/19 13:15 Home Med (Med Rec Complete!) ASDIRECTED XX 10/03/19 13:00 10/03/19 13:19 DC Hydromorphone HCl (Dilaudid) 0.2 mg Q5MP PRN IV PAIN LEVEL 4-7 10/05/19 12:30 10/05/19 13:30 DC Insulin Detemir (Levemir Insulin) 10 units BID SC 10/03/19 21:00 10/06/19 08:18 DC 10/06/19 08:13 Insulin Detemir (Levemir Insulin) 10 units QHS SC 10/10/19 21:00 10/16/19 08:48 DC 10/13/19 22:15 Insulin Detemir (Levemir Insulin) 12 units BID SC 10/06/19 21:00 10/07/19 14:41 DC 10/07/19 07:56 Insulin Detemir (Levemir Insulin) 14 units BID SC 10/07/19 21:00 10/10/19 19:44 DC 10/09/19 22:14 Insulin Human Lispro (HumaLOG INSULIN) SEE PROTOCOL TABLE AC SC 10/03/19 17:30 10/18/19 17:46 Insulin Human Lispro (HumaLOG INSULIN) SEE PROTOCOL TABLE QHS MS 10/03/19 21:00 10/03/19 20:26 Lactated Ringer's 1,000 ml @ 75 mls/hr [id number] IV 10/18/19 14:30 10/18/19 15:30 DC Lactated Ringer's 1,000 ml @ 100 mls/hr Q10H IV 10/05/19 12:30 10/05/19 13:30 DC 10/05/19 12:59 Lactulose (Cephulac) 15 ml TID PO 10/18/19 18:45 10/18/19 20:06 Levothyroxine Sodium (Synthroid) 125 mcg DAILY@0600 PO 10/03/19 06:00 10/19/19 06:14 Linezolid (Zyvox) 600 mg BID PO 10/11/19 21:00 10/19/19 06:14 Linezolid 600 mg/ IV Miscellaneous Supplies 300 ml @ 150 mls/hr Q12H IV 10/04/19 22:00 10/11/19 18:48 DC 10/11/19 10:43 Meropenem 1 gm/IV Miscellaneous Supplies 50 ml @ 100 mls/hr Q24H IV 10/11/19 18:00 10/11/19 18:48 DC 10/11/19 17:03 Meropenem 1 gm/IV Miscellaneous Supplies 50 ml @ 100 mls/hr QHS IV 10/04/19 21:00 10/09/19 07:56 DC 10/08/19 21:22 Meropenem 2 gm/ Sodium Chloride 100 ml @ 200 mls/hr QHS IV 10/04/19 21:00 Cancel Meropenem 500 mg/ IV Miscellaneous Supplies 50 ml @ 100 mls/hr Q24H IV 10/19/19 16:00 Cancel Meropenem 500 mg/ IV Miscellaneous Supplies 50 ml @ 100 mls/hr Q24H IV 10/20/19 16:00 Midodrine (Proamatine) 5 mg TID@08,12,16 PO 10/03/19 16:00 10/19/19 12:08 Miscellaneous (Unresolved Clarification Entry) SEE LABEL COMMENTS DAILY XX 10/16/19 09:00 10/16/19 10:37 DC Miscellaneous (Unresolved Clarification Entry) SEE LABEL COMMENTS DAILY XX 10/18/19 09:00 10/18/19 18:45 DC Morphine Sulfate (Morphine Sulfate Inj) 2 mg Q8HP PRN IV MODERATE PAIN (PS 5-7) 10/08/19 16:45 10/15/19 16:44 DC 10/15/19 09:45 Nystatin (Mycostatin Powder, Nystop) 1 dose BIDP PRN TOP RASH 10/05/19 06:30 10/13/19 22:15 Ondansetron HCl (ZOFRAN INJection) 4 mg Q4HP PRN IV NAUSEA OR VOMITING 10/18/19 14:30 10/18/19 15:30 DC Ondansetron HCl (ZOFRAN INJection) 4 mg Q4HP PRN IV NAUSEA OR VOMITING 10/05/19 12:30 10/05/19 13:30 DC Ondansetron HCl (ZOFRAN INJection) 4 mg Q8HP PRN IV NAUSEA OR VOMITING 10/05/19 04:15 10/19/19 00:39 DC 10/18/19 16:44 Ondansetron HCl (Zofran) 4 mg Q8HP PRN PO NAUSEA OR VOMITING 10/19/19 00:45 Oxycodone HCl (Roxicodone, Oxyir) 2.5 mg Q12H PRN PO PAIN 10/03/19 13:15 10/04/19 17:04 DC 10/04/19 09:16 Oxycodone HCl (Roxicodone, Oxyir) 2.5 mg Q6H PRN PO PAIN 10/04/19 17:15 10/19/19 06:36 Pantoprazole Sodium (Protonix) 40 mg DAILY PO 10/03/19 09:00 10/08/19 10:38 DC 10/08/19 05:16 Patiromer (Veltassa) 8.4 gm ASDIRECTED PRN PO MISSING DIALYSIS 10/03/19 13:15 Ropinirole HCl (Requip) 6 mg BID PO 10/03/19 21:00 10/19/19 06:15 Simvastatin (Zocor) 20 mg QHS PO 10/03/19 21:00 10/18/19 20:06 Trazodone HCl (Desyrel) 200 mg QHS PO 10/03/19 21:00 10/18/19 20:06 Vancomycin HCl (First-Vancomycin 50(Firvanq)- 250mg/5ml) 125 mg Q6H PO 10/07/19 09:00 10/17/19 23:59 DC 10/17/19 23:05 Vancomycin HCl (First-Vancomycin 50(Firvanq)- 250mg/5ml) 125 mg Q6H PO 10/19/19 12:00 10/19/19 12:07 VS,Hannah, I+O VS, Edwinbone, I+O Laboratory Tests 10/19/19 04:50 10/19/19 06:30 10/19/19 10:55 Vital Signs Date Time Temp Pulse Resp B/P (MAP) Pulse Ox O2 Delivery O2 Flow Rate FiO2 10/19/19 12:00 98.0 83 22 60/33 (42) 96 Nasal Cannula 1.0 I&O- Last 24 Hours up to 6 AM 10/19/19 06:00 Intake Total 660 ml Output Total 0 ml Balance 660 ml AMANDA HICKEY MD Oct 19, 2019 15:36
[2019-10-19] MEDS ORDERED: MEROPENEM INJ 500 MG in IV 1 EA IV SCH (16:00)
[2019-10-19] MEDS: DEXTROSE 50% 50 ML SYRINGE IV PRN (19:57)
[2019-10-19] MEDS: traZODone 100 MG TAB PO SCH (20:06)
[2019-10-19] MEDS: GABAPENTIN 300 MG CAP PO SCH (20:06)
[2019-10-19] MEDS: SIMVASTATIN 20 MG TAB PO SCH (20:08)
[2019-10-20] VITALS (95 sets, daily range): BP systolic 70–125; BP diastolic 35–59; O2SAT 96–100
[2019-10-20] MEDS: VANCOMYCIN ORAL SOL 250MG/5ML ORAL SYRINGE PO SCH ×5 (00:06→23:10)
[2019-10-20] MEDS ORDERED: DEXTROSE 50% 50 ML SYRINGE IV ONE (03:15)
[2019-10-20 05:40] LABS: HEMATOCRIT 26.6 % (36.0-47.0); HEMOGLOBIN 7.4 g/dl (12.0-15.5); MEAN CORPUSCULAR HGB CONC 27.8 g/dl (32.0-36.5); MEAN CORPUSCULAR VOLUME 104.3 fl (80.0-96.0); RED BLOOD COUNT 2.55 10^6/uL (4.00-5.40)
[2019-10-20] MEDS: MIDODRINE 5 MG TAB PO SCH (05:44)
[2019-10-20] MEDS: FAMOTIDINE 20 MG TAB PO SCH (05:44)
[2019-10-20] MEDS: DULoxetine 30 MG CAP (CYMBALTA) PO SCH (05:44)
[2019-10-20] MEDS: LEVOTHYROXINE 125MCG TABLET (0.125MG) PO SCH (05:44)
[2019-10-20] MEDS: CALCITRIOL 0.25 MCG CAP (S0169) PO SCH (05:44)
[2019-10-20] MEDS: GENTAMICIN SULFATE 0.1% OINT 15 GM TOP SCH ×3 (05:45→20:12)
[2019-10-20 05:46] LABS: WHITE BLOOD COUNT 64.4 10^3/uL (4.0-10.0)
[2019-10-20 05:47] LABS: PLATELET COUNT, AUTOMATED 82 10^3/uL (150-450)
[2019-10-20] MEDS: CALCIUM CARBONATE 500 MG CHEW U/D PO SCH (05:56)
[2019-10-20] MEDS: LINEZOLID 600MG TABLET (ZYVOX) PO SCH (05:56)
[2019-10-20] MEDS: rOPINIRole 2MG TAB PO SCH (05:56)
[2019-10-20] MEDS: LACTULOSE 20 GM/30 ML SYRUP UD PO SCH ×3 (05:56→20:11)
[2019-10-20 06:42] LABS: ALBUMIN 2.2 GM/DL (3.2-5.2); BILIRUBIN,TOTAL 0.5 MG/DL (0.2-1.0); C REACTIVE PROTEIN QUANTITATIV 18.2 MG/DL (0.00-0.30); CREATININE FOR GFR 6.5 MG/DL (0.55-1.30); GLOMERULAR FILTRATION RATE 6.7 (>39); MAGNESIUM LEVEL 2.4 MG/DL (1.8-2.4); PHOSPHORUS LEVEL 11.9 MG/DL (2.5-4.9); TOTAL PROTEIN 5.3 GM/DL (6.4-8.2)
[2019-10-20] MEDS: HumaLOG INSULIN (NovoLOG) PER UNIT SC SCH (07:30)
[2019-10-20] MEDS ORDERED: SODIUM BICARBONATE 8.4% INJ 50 ML SYRINGE IV STA ×5 (08:00→12:12)
[2019-10-20] MEDS ORDERED: SODIUM BICARBONATE 8.4% INJ 50 ML SYRINGE As Ordered ONE (08:01)
[2019-10-20 08:09] LABS: ABG BASE EXCESS -23.4 (-2.0-2.0); ABG HCO3 6.4 MEQ/L (22.0-26.0); ABG O2 SATURATION 96.7 % (95.0-99.0); ABG PARTIAL PRESSURE CO2 27.6 mmHg (35.0-45.0); ABG TOTAL CO2 7.3 MEQ/L (23.0-31.0)
[2019-10-20 08:11] LABS: ABG pH (ARTERIAL) 6.984 UNITS (7.350-7.450)
--- NOTE | 2019-10-20 08:21 | IPN ---
DATE: 10/19/2019 Mrs. Hernandez is seen this morning in the intensive care unit. She underwent TIPS procedure yesterday due to her cirrhosis of liver and recurrent ascites. Interventional radiology felt that the procedure was a success. This morning the patient feels very tired. She is also slightly nauseated but no fever or chills. She denies any dyspnea or chest pain. PHYSICAL EXAMINATION Temperature 98.6 degrees Fahrenheit, heart rate 82 per minute and respiratory rate 24 per minute. Blood pressure 82/48 mmHg and oxygen saturation 96%. She is not using oxygen at present. Head is atraumatic. Neck: Supple and jugular venous distention (JVD) difficult to be assessed. She has a dressing on right side of her neck where she had access for her TIPS procedure. Her heart sounds are regular and lungs seem clear to auscultation. Abdomen is soft, distended with ascites and bowel sounds are normal. Extremities: Without any cyanosis or clubbing. She has a prior left [id number] amputation and stump is wrapped in dressing. Her right foot is also wrapped in dressing. Neurologically she is somewhat lethargic but able to have a conversation. She keeps repeating that she is very tired. Today's labs show WBC count 47.1, hemoglobin 7.9 and hematocrit 27.7. Yesterday her WBC count was only 10.7. A repeat CBC showed a WBC count 47.8, hemoglobin 8.2 and hematocrit 28.7. Differential showed 89% neutrophils. A blood gas that has been done now recently showed a pH of 7.25, pCO2 33.4, pO2 97.8 and bicarb of 15. Her chemistry this morning showed sodium level 138, potassium 5.0, CO2 22, BUN 40 and creatinine 4.91. Glucose is 127 and a lactic acid level 9.4. Calcium 7.4 and phosphorus 8.3. C-reactive protein is 12.3 and ammonia level is only 11. PROBLEMS 1. End-stage renal disease. The patient is regularly dialyzed on Tuesday, Tuesday and Tuesday schedule. We had a plan to dialyze her, however, with her severe leukocytosis and feeling weak and tired I am going to hold off on dialysis as she could be septic and will have risk for further worsening of her hypotension and going into shock. She is not very stable for dialysis at present and her electrolytes are stable so urgent dialysis is not indicated. 2. Leukocytosis and lactic acidosis. Differential would include infection versus procedure related issue. I am not sure if this is all the result of TIPS procedure. She already had blood cultures drawn this morning and she has been placed on antibiotics by the hospitalist. She has been on oral vancomycin already due to her history of C diff and meropenem has been resumed pending blood cultures. She has also been on Zyvox 600 mg twice a day. 3. Hypotension. Blood pressure is still at about baseline and she remains on midodrine. She has not required any pressors so far. 4. Metabolic acidosis most likely this is result of lactic acidosis and probably related to her TIPS procedure. I am not sure if dialysis will be helpful. She is not very stable for dialysis at present and we will wait until tomorrow for dialysis. 5. Anemia. Her anemia is stable at about baseline. No urgent indication for a transfusion at present. 6. Infected left leg stump and right foot wound. The patient remains on oral Zyvox 600 mg twice a day and meropenem has also been added today.
[2019-10-20] MEDS: NOREPINEPHRINE BITARTRATE 16 MG in D5W 484 ML IV SCH ×2 (09:00→20:22)
--- NOTE | 2019-10-20 09:02 | IPN ---
DATE: 10/19/2019 Dalila is not doing well today. She has a transjugular intrahepatic portosystemic shunt (TIPS) procedure done yesterday and today she complains of shortness of breath. She is very uncomfortable. She is not able to express what is her discomfort other than shortness of breath. She has no cough and no significant abdominal pain. She had two soft bowel movement today but not watery. She was restarted on IV meropenem she is still on oral Zyvox and oral vancomycin. She is afebrile but has been hypotensive. Temperature is 98, pulse 83, respirations 22, blood pressure 60/33, O2 sat 96 on 1 liter nasal cannula. Heart: Normal S1,S2. No murmurs appreciated. Lungs: Diminished breath sounds. Abdomen is soft, nontender. Bowel sounds present. Extremities: No edema. Left stump with granulation tissue. Minimal yellowish discharge on the Endoform dressing and there is a Hydrofera BLUE and Optifoam. The wound looks great. She has mild tenderness in the middle thigh. Right foot amputation site of the first toe is healing well. Sutures are still in place. There is no redness or tenderness. Neurologic exam: The patient moves all extremities but is lethargic and at some point confused. LABS: White count 52, hemoglobin 8.1, hematocrit 27.6, platelets 81. Sodium 138, potassium 5, chloride 103, bicarb 22, BUN 40, creatinine 4.91, glucose 127, lactic acid 11.2, calcium 7.4, phosphorus 8.3, magnesium 2, CRP 12.3. Blood cultures have been ordered, two sets are pending. CT abdomen and pelvis showed mild to moderate ascites, subcutaneous edema and mesenteric fat edema have improved. Cholelithiasis with bilateral renal atrophy. Chest x-ray shows increased density right upper lobe consistent with pneumonia, mild prominent heart cardiomegaly. IMPRESSION: 1. Severe sepsis with hypotension and lactic acidosis status post TIPS procedure possibly related to new pneumonia. The patient currently on meropenem and Zyvox. Chest x-ray Showed increased density in the right upper lobe. 2. Liver cirrhosis with ascites status post TIPS procedure. I would recommend obtaining a paracentesis to send fluid for analysis to rule out peritonitis. 3. C difficile colitis on oral vancomycin. The patient has soft stools. Diarrhea does not seem to be the major problem at this point. Lactulose is being held. 4. Multiple open wounds, including the left leg stump. Right lower extremity status post right amputation and sacral decubitus all seem to be doing fairly well without being in obvious source of infection at this time. PLAN: Continue meropenem, linezolid and oral vancomycin for C difficile. Consider obtaining a paracentesis to rule out peritonitis. Case has been discussed with Dr. Henriquez. Also recommend using an incentive spirometer.
[2019-10-20] MEDS ORDERED: NOREPINEPHRINE 4 MG/4 ML AMP As Ordered ONE (09:04)
[2019-10-20] MEDS ORDERED: ETOMIDATE INJ 20MG/10ML VIAL As Ordered ONE (09:11)
[2019-10-20] MEDS ORDERED: MIDAZOLAM INJ 2 MG/2 ML VIAL (J2250) As Ordered ONE (09:12)
[2019-10-20] MEDS ORDERED: ETOMIDATE INJ 20MG/10ML VIAL IV STA (09:17)
[2019-10-20] MEDS ORDERED: MIDAZOLAM INJ 2 MG/2 ML VIAL (J2250) IV STA ×2 (09:17→09:21)
[2019-10-20] MEDS ORDERED: REFRIGERATOR IV KEYS XX PRN (09:45)
[2019-10-20] MEDS ORDERED: MIDAZOLAM INJ 2 MG/2 ML VIAL (J2250) IV PRN (09:45)
[2019-10-20] MEDS ORDERED: MIDAZOLAM HCL 100 MG in D5W 80 ML IV SCH (10:00)
--- NOTE | 2019-10-20 10:30 | REP ---
REASON: Status post line placement. COMPARISON: Yesterday. The technique utilized in obtaining the radiograph has magnified the cardiac silhouette and accentuated the interstitial markings. Since the last examination, a nasogastric tube has been placed. The tube is seen coursing the esophagus and the tip is beneath the diaphragmatic surface of the left lung outside of the view of the radiograph, probably within the stomach antral region. There is an endotracheal tube in place, the tip of which is in satisfactory position at the level of the aortic knob. There is a right-sided internal jugular central venous catheter the tip of which is at the superior vena cava/right atrial junction. The lung multani are unchanged. The osseous structures are unchanged. The cardiomediastinal silhouette is unchanged. The cardiac silhouette is magnified by technique. Mild cardiomegaly cannot be ruled out. IMPRESSION: 1. Tubes and lines as described above. 2. Lung multani unchanged. Electronically Signed by Gómez Saleh DO 10/20/2019 12:22 P
[2019-10-20 10:37] LABS: ABG BASE EXCESS -20.4 (-2.0-2.0); ABG HCO3 7.7 MEQ/L (22.0-26.0); ABG O2 SATURATION 94.2 % (95.0-99.0); ABG PARTIAL PRESSURE CO2 25.5 mmHg (35.0-45.0); ABG PARTIAL PRESSURE O2 93.3 mmHg (75.0-100.0); ABG TOTAL CO2 8.5 MEQ/L (23.0-31.0)
[2019-10-20 10:39] LABS: ABG pH (ARTERIAL) 7.096 UNITS (7.350-7.450)
[2019-10-20] MEDS ORDERED: HEPARIN 1,000 UNITS/ML 10ML VIAL (FOR RADIOLOGY& DIALYSIS ONLY) IV ONE (11:00)
[2019-10-20 11:57] LABS: ABG BASE EXCESS -22.1 (-2.0-2.0); ABG HCO3 6.6 MEQ/L (22.0-26.0); ABG O2 SATURATION 92.9 % (95.0-99.0); ABG PARTIAL PRESSURE CO2 24.5 mmHg (35.0-45.0); ABG PARTIAL PRESSURE O2 92.1 mmHg (75.0-100.0); ABG STANDARD HCO3 7.8 MEQ/L (22.0-26.0); ABG TOTAL CO2 7.4 MEQ/L (23.0-31.0)
[2019-10-20 12:01] LABS: ABG pH (ARTERIAL) 7.051 UNITS (7.350-7.450)
--- NOTE | 2019-10-20 12:24 | IPNPDOC ---
Date Seen The patient was seen on 10/20/19. Progress Note SUBJECTIVE: 68-year-old female with past medical history of end-stage renal disease on dialysis, cirrhosis, diabetes mellitus, hypertension, hypothyroidism, peripheral artery disease, chronic hypotension, was admitted for bilateral lower extremity and sacral wounds, status post ray amputation of right foot first digit. OR cultures grew Corynebacterium, patient on Zyvox. Hospitalization was competent by C. difficile, currently being treated with oral vancomycin. Patient usually gets weekly paracentesis, status post 2 paracenteses so far during hospitalization, removal of 10 L during yesterday's paracentesis. Patient evaluated during dialysis today, reports lower extremity pain, no other complaints at this time. She reports improvement in diarrhea. 10/17/2019 Patient reports worsening lower extremity pain, more severe on the left side compared to the right. Supposedly, patient is scheduled for a TIPS procedure tomorrow, as per nurse. 10/18/2019 Patient underwent TIPS procedure today, seen in PACU, no new complaints. She will be transferred to ICU for further monitoring. 10/19/2019 Patient seen in the ICU, more lethargic today, reports dyspnea and lack of appetite. Blood pressure remains borderline low, normal for the patient but has been worse over the past 24 hours. 10/20/2019 Patient seen in the morning, obtunded, minimally responsive, unable to follow commands, only opened her eyes once, does not appear uncomfortable. 10 point review of system was negative except for above PHYSICAL EXAMINATION: VITAL SIGNS: Please see below. GENERAL: Obtunded HEENT: Normocephalic, atraumatic, moist mucous membranes NECK: Supple CARDIOVASCULAR EXAMINATION: S1, S2, systolic murmur appreciated RESPIRATORY EXAMINATION: Scattered rhonchi, no wheezing ABDOMINAL EXAMINATION: Soft, nontender, non-distended, positive bowel sounds EXTREMITIES: Left upper extremity AV fistula, status post left lower extremity BKA SKIN: Bilateral lower extremity wounds with dressing in place, clean, dry and intact NEUROLOGICAL EXAMINATION: Alert and oriented 3, no focal deficits PSYCHIATRIC EXAMINATION: Calm and cooperative LABORATORY DATA, IMAGING STUDIES, MICROBIOLOGY: Please see below. DVT prophylaxis ordered?: No ASSESSMENT AND PLAN: 68-year-old female with past medical history of end-stage renal disease, cirrhosis, hypertension, hypothyroidism, peripheral artery disease, diabetes mellitus and chronic hypertension is admitted for multiple wounds. PROBLEMS: 1. Septic shock Presumed, given severe decline in patient's condition over the past 48 hours, WBC count continues rising, patient more hypotensive compared to her baseline, Leonel on Zyvox and Merrem along with oral vancomycin for C. difficile. Buffer Nickel was consulted, plan for intubation, central line placement and vasopressors. Had a long discussion with her daughter, who is now at bedside, she had goals of care discussion with the patient yesterday who relayed to her that she wishes to remain full code. Discussed patient's progressive decline over the past 48 hours with an extensive medical history and very poor prognosis with the daughter, all questions answered. Daughter wishes to pursue current treatment for now, patient's 2 other daughters are on their way to visit her later today. 2. End-stage renal disease. Usually gets hemodialysis Tuesday, Tuesday, Tuesday, compliance is an issue. Severely acidotic due to lactic acidosis, discussed case with colors custodian, plan for hemodialysis today with use of vasopressors if needed. Continue Patiromer, Aransep and calcium carbonate. 3. Cirrhosis: Status post TIPS procedure 48 hours ago, progressively declining since then, worsening lactic acidosis and hypoglycemia likely due to poor liver function, severe infectious process is a possibility as well, repeat blood cultures negative to date, on empiric antibiotics. 4. Chronic hypotension: Continue Midodrine 5 mg 3 times a day 5. Diabetes mellitus Sliding scale insulin with fingersticks before every meal see and at bedtime 6. Hypothyroidism. Continue levothyroxine. 7. Peripheral artery disease. 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 GI prophylaxis: Pepcid VS, I&O, 24H, Fishbone Vital Signs/I&O Vital Signs Date Time Temp Pulse Resp B/P (MAP) Pulse Ox O2 Delivery O2 Flow Rate FiO2 10/20/19 11:30 87 27 86/47 (62) 100 Ventilator 30 10/20/19 09:24 1.0 10/20/19 08:00 97.8 I&O- Last 24 Hours up to 6 AM 10/20/19 06:00 Intake Total 265.0 ml Output Total 0 ml Balance 265.0 ml Laboratory Data 24H LABS Laboratory Tests 2 10/19/19 19:53: Bedside Glucose (Misc Panel) 33*L 10/19/19 20:12: Bedside Glucose (Misc Panel) 103 10/20/19 00:11: Bedside Glucose (Misc Panel) 63L 10/20/19 02:38: Bedside Glucose (Misc Panel) 61L 10/20/19 05:29: Nucleated Red Blood Cells % (auto) 0.0, Anion Gap 27H, Glomerular Filtration Rate 6.7L, Calcium Level 8.0L, Phosphorus Level 11.9#H, Magnesium Level 2.4, Total Bilirubin 0.5, Aspartate Amino Transf (AST/SGOT) 546H, Alanine Aminotransferase (ALT/SGPT) 251H, Alkaline Phosphatase 229H, C-Reactive Protein, Quantitative 18.20H, Total Protein 5.3L, Albumin 2.2L, Albumin/Globulin Ratio 0.71L 10/20/19 06:22: Bedside Glucose (Misc Panel) 114H 10/20/19 07:56: Blood Gas Bicarbonate Standard 7.0L, Arterial Blood pH 6.984*L, Arterial Blood Partial Pressure CO2 27.6L, Arterial Blood Partial Pressure O2 129.0H, Arterial Blood Total CO2 7.3L, Arterial Blood HCO3 6.4L, Arterial Blood Base Excess - 23.4L, Arterial Blood Oxygen Saturation 96.7 10/20/19 07:59: Bedside Glucose (Misc Panel) 105 10/20/19 08:20: Ammonia 33H 10/20/19 09:58: Bedside Glucose (Misc Panel) 80L 10/20/19 10:25: Blood Gas Bicarbonate Standard 9.0L, Arterial Blood pH 7.096*L, Arterial Blood Partial Pressure CO2 25.5L, Arterial Blood Partial Pressure O2 93.3, Arterial Blood Total CO2 8.5L, Arterial Blood HCO3 7.7L, Arterial Blood Base Excess - 20.4L, Arterial Blood Oxygen Saturation 94.2L 10/20/19 11:44: Blood Gas Bicarbonate Standard 7.8L, Arterial Blood pH 7.051*L, Arterial Blood Partial Pressure CO2 24.5L, Arterial Blood Partial Pressure O2 92.1, Arterial Blood Total CO2 7.4L, Arterial Blood HCO3 6.6L, Arterial Blood Base Excess -22.1 L, Arterial Blood Oxygen Saturation 92.9L CBC/BMP Laboratory Tests 10/20/19 05:29 Microbiology Microbiology 10/19/19 Blood Culture - Preliminary, Resulted No growth after 24 hours . All specim... 11/22/19 Blood Culture - Preliminary, Resulted No growth after 24 hours . All specim... MERLENE GAMEZ MD Oct 20, 2019 12:24
[2019-10-20] MEDS: CHLORHEXIDINE GLUCONATE 0.12 % 15ML UDC (PERIDEX ORAL RINSE) MT SCH ×2 (12:40→20:11)
--- NOTE | 2019-10-20 12:45 | IPN ---
DATE: 10/20/2019 SUBJECTIVE The patient was seen and examined at the bedside today morning in the ICU. I got a call from the hospitalist team Dr. Clinton Moy today morning. The patient has been further decompensated. She is very encephalopathic. She has metabolic acidosis including lactic acidosis requiring IV bicarbonate injection pushes. She is getting worsening leukocytosis and because of worsening sepsis and hypotension they have called the pulmonary team involved as well. Transmissions Systems Operator was also present at the bedside when I saw the patient and they are planning to get the central line placed and start the patient on pressors and also intubate the patient because of severe metabolic acidosis with incomplete respiratory compensation. The patient is unable to provide any reliable review of systems. She is very obtunded and wakes up to painful stimuli and she is encephalopathic. OBJECTIVE Vital signs: Temperature is 97.8 degrees Fahrenheit. Blood pressure 71/37, pulse is 79, respiratory rate of 24, saturating 100% on nasal cannula at 1 liter. Intake and output: There is no urine output recorded. Weight in the bed scale is 65.4. PHYSICAL EXAMINATION General: The patient is encephalopathic, obtunded, moves to painful stimuli, laying in the bed. Head and neck examination: Pupils are equally round and reactive to light. Mucous membranes are moist. Neck is supple. There is mildly elevated JVD. Cardiovascular: S1, S2, trace to 1+ edema of the right lower extremity. Respiratory: Decreased breath sounds at the bases, otherwise no active rales or rhonchi. Abdomen: Soft, positive bowel sounds. Very mild amount of ascites in the flanks with tenderness to palpation in the suprapubic region. Musculoskeletal: She has a left below-knee amputation. Right foot is a covered with a dressing. AV acess: She has a left forearm AV fistula with thrill and bruit. 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 She randomly moves upper extremities. Hardly follows any commands and opens eyes to painful stimuli. LABORATORY REVIEW CBC showed WBC of 64.4, hemoglobin is 7.4, platelets are 82. INR has not been done. I will add on to today morning labs. ABG done today morning showed pH of 6.9, pCO2 27.6, pO2 129, bicarb is 6.4, oxygen sat is 96.7%. BMP done today morning showed sodium 139, potassium is 6, chloride 102, bicarb is 10, BUN 57, creatinine is 6.5, lactic acid was 11.2 last night, phosphorus 11.9, calcium is 8, AST 546, ALT 251. Alk phos is 229, ammonia 33, C-reactive protein is 18.2, albumin is 2.2. Microbiology: Repeat blood cultures sent yesterday. They are negative so far. Imaging: CT scan of the abdomen and pelvis was done yesterday, which showed TIPS shunt in place in the liver. [id number] diffuse abdominal ascites. Cholelithiasis, bilateral renal atrophy. CURRENT INPATIENT MEDICATIONS The patient's medications were all reviewed by myself. I have changed the Zyvox to 600 mg IV every 12 hourly. She was started on meropenem 500 mg IV daily starting last night. I have stopped the calcitriol. I am stopping the Tums tablet. She continues to be on Aranesp 200 mcg IV with dialysis once a week. I am stopping Benadryl and stopping Cymbalta. Famotidine has been stopped. Gabapentin is being stopped because of encephalopathy. Insulin sliding scale has been stopped. She continues to be on lactulose 15 mL by mouth (p.o.) three times a day. I have stopped the oral Levothyroxine and changed it to levothyroxine 62.5 mcg IV daily. She is being started on Versed after intubation. Midodrine 5 mg by mouth three times a day is being stopped because Levophed is being started. Requip is being stopped. Simvastatin is being stopped because of elevated liver enzymes. She has received 3 ampules of IV bicarb so far. She continues to be on vancomycin 125 mg by mouth every 6 hourly. ASSESSMENT/PLAN 1. End-stage renal disease. The patient's regular dialysis days are Tuesday, Tuesday, Tuesday. However, because of severe metabolic acidosis and hyperkalemia the patient will be dialyzed at the bedside today after she is started on Levophed infusion. 2. Hyperkalemia. It is secondary to renal failure and severe metabolic acidosis. She will be dialyzed with a two K bath and potassium level is expected to improve after that. 3. Severe metabolic acidosis with incomplete respiratory compensation. The patient has high anion gap acidosis secondary to lactic acidosis and sepsis. She will be dialyzed at the bedside to help improve the acidosis. Sepsis management is as mentioned below. 4. Septic shock. The patient has worsening lactic acidosis. She has already been started on appropriate antibiotic including the Zyvox and meropenem. Cultures are pending. Possible sources pneumonia for spontaneous bacterial peritonitis (SBP). She needs diagnostic tap to rule out SBP, however, she is already on appropriate antibiotic. Rest of the management is as per infectious disease recommendations and critical care team. 5. Anemia in end-stage renal disease. Hemoglobin level has further dropped to 7.4. Two units of PRBC transfusions have been ordered to help with the volume support and hypotension. This would also help us to dialyze her better. 6. Chronic hypotension. The patient's hypotension has worsened because of sepsis. Midodrine is being stopped. She is being started on Levophed. MAP goal will be 60. 7. Secondary hyperparathyroidism. Because of severe sickness calcitriol is being stopped. 8. Hyperphosphatemia. The patient is nothing by mouth (npo) at this time. Phosphorus binders are being stopped. 9. History of depression. Home dose of Cymbalta and trazodone is being stopped because the patient is encephalopathic. 10. Hepatic encephalopathy. It is secondary to sepsis. History of cirrhosis and recent TIPS procedure. Continue the lactulose at this time. 11. C diff colitis. Patient is already on oral vancomycin. 12. Diabetes mellitus type 2. The patient is hypoglycemic. Insulin sliding scale is being. 13. History of hypothyroidism. Oral levothyroxine is being stopped. The patient has been started on levothyroxine 62.5 mcg IV daily. PROGNOSIS The patient overall has a poor prognosis because of severe septic shock, multiorgan failure. Family members still want to continue aggressive treatment. The patient will be dialyzed at the bedside. Total critical care time spent in the management of this patient today morning in the ICU was 1 hour that does not include any procedures.
--- NOTE | 2019-10-20 13:50 | RO ---
DATE OF PROCEDURE: 10/20/2019 INDICATION: Respiratory failure. PREPROCEDURE DIAGNOSIS: Septic shock and metabolic acidosis. POSTPROCEDURE DIAGNOSIS: Septic shock and metabolic acidosis PROCEDURE: Endotracheal intubation procedure. ATTENDING: Dr. Rosalia Brown. ANESTHESIA: 20 mg of etomidate for induction and 2 mg of Versed for sedation CONSENT: The procedure was performed emergently and due to the emergent nature of procedure consent was implied. DESCRIPTION OF PROCEDURE: Time-out was performed. The patient was placed on a pvc monitor including continuous pulse oximetry. The patient was given 20 mg of etomidate for induction and 2 mg of Versed for sedation. Cricoid pressure was maintained during the procedure. Using a #3 MAC laryngoscope and a size 7.5 endotracheal tube with stylet, the patient was intubated on the first pass attempt. The stylet was removed and the cuff balloon was inflated. Appropriate endotracheal tube position was confirmed by direct visualization of vocal cord passage, fogging of the tube, CO2 colorimetric indicator and symmetric breath sounds. The tube was secured at 22 cm at the lips. Post-intubation chest x-ray showed ET tube in satisfactory position. [facility]
--- NOTE | 2019-10-20 13:57 | RO ---
DATE OF PROCEDURE: 10/20/2019 INDICATIONS: Vasopressor administration. PREPROCEDURE DIAGNOSIS: Septic shock. POSTPROCEDURE DIAGNOSIS: Septic shock. PROCEDURE: Internal jugular central line placement. SURGEON: Dr. Rosalia Brown. ANESTHESIA: 1% lidocaine. CONSENT: The procedure was performed emergently and consent was implied due to the emergent nature of the procedure. DESCRIPTION OF PROCEDURE: A central line insertion practice form was completed by independent observer starting with the first hand wash prior to starting sterile technique. A time-out was performed. Full sterile technique was maintained throughout procedure including surgical cap, mask with protective eyewear, full gown and sterile gloves. The patient was placed in Trendelenburg position. The right neck region was prepped using chlorhexidine scrub and draped in sterile fashion using a fenestrated drape and sterile probe cover employed. The right internal jugular vein was identified using ultrasound. Anesthesia was achieved over vein using 1% lidocaine. Using real-time [id number] guidance, the introducer needle was inserted into the right internal jugular vein under direct ultrasound visualization. Venous blood was drawn. The syringe was removed and a guidewire was advanced into the introducer needle. The introducer needle was removed over the guidewire. A small incision was made at skin surface with a scalpel and the dilator was exchanged over the guidewire. After appropriate dilation was obtained, the dilator was exchanged over wire for a triple lumen central venous catheter. The wire was removed and the catheter was sutured in place. A sterile chlorhexidine impregnated dressing was placed over the catheter insertion site. The patient tolerated procedure without any hemodynamic compromise. At time of procedure completion, all ports aspirated and flushed properly. Postprocedure chest x-ray showed no evidence of pneumothorax and the right internal jugular (IJ) line with the tip in the junction of the superior vena cava (SVC)/right atrium. MTDD
--- NOTE | 2019-10-20 15:52 | CR ---
DATE OF CONSULTATION: 10/20/2019 HISTORY OF PRESENT ILLNESS The patient is a 68-year-old female with a complicated medical history including end stage renal disease on dialysis, end stage liver disease with a history of decompensated cirrhosis and ascites, insulin dependent diabetes, peripheral vascular disease status post left below the knee amputation with a history of nonhealing left stump wound, coronary artery disease status post stent, hypothyroidism who was has been admitted since beginning with gangrenous toe, which was status post amputation on the right foot. The patient was also found to have a nonhealing left stump and sacral decubitus with surrounding cellulitis. Her hospital course was further complicated by Clostridium (C.) difficile colitis. The patient has had multiple procedures during her admission, including the toe amputation, as well as repeated paracenteses for her recurrent ascites. The patient is usually receiving paracentesis once a week. She chronically also has a hypotension and requires midodrine and albumin for her chronic hypotension. The patient has been on antibiotics with Zyvox additionally since her admission as her wound cultures grew Corynebacterium. She is also on oral vancomycin for her C diff and was recently started on meropenem as she was noted to have increasing leukocytosis. The patient had a TIPS procedure performed on 10/18/2019 given her frequent paracentesis. Since the procedure, she has noted to have more persistent hypotension as well as being more lethargic and less responsive. This morning the patient had an ABG performed, which shows metabolic acidosis with poor respiratory compensation. She was also noted have increasing lactic acid and hyperkalemia. The patient was given bicarbonate pushes for her acidosis. Given her worsening mental status and worsening acidosis with inappropriate respiratory acidosis, she was intubated this morning and placed on mechanical ventilation. The patient also had a central line placed for administration of vasopressors with Levophed. She was also planned to have dialysis to help with her lactic acidosis. PAST MEDICAL HISTORY/PAST SURGICAL HISTORY: 1. ESRD on hemodialysis. 2. End stage liver disease with decompensated ascites requiring paracentesis. 3. Insulin dependent diabetes. 4. Chronic anemia. 5. Peripheral vascular disease status post left below knee amputation and right toe amputation. 6. Coronary artery disease status post stent. 7. Heart failure with preserved ejection fraction. 8. Hypothyroidism. 9. Hypertension. 10. Depression / anxiety. 11. Chronic hypotension. 12. Left below the knee amputation. 13. Left AV fistula. 14. Appendectomy. 15. Hysterectomy. 16. Cataract surgery. 17. TIPS procedure. SOCIAL HISTORY: Denies previous history of smoking or alcohol use. FAMILY HISTORY: Mother from diabetic complications. Father from an accidental . REVIEW OF SYSTEMS: Unable to be obtained as the patient is obtunded and unable to provide a history. ALLERGIES: HEPARIN, LYRICA. Questionable allergy to VANCOMYCIN IV CURRENT MEDICATIONS: - Synthroid - linezolid - meropenem - Levophed - vancomycin orally - Zofran as needed - lactulose - gentamicin topical - calcitriol - calcium carbonate - gabapentin - oxycodone as needed - nystatin as needed - ropinirole - simvastatin - trazodone - Aranesp - insulin sliding scale - midodrine - Benadryl as needed - famotidine PHYSICAL EXAMINATION: Temperature 97.8, pulse 76, respirations 20, blood pressure 71/41, oxygen saturation was 100% on 2 liters nasal cannula. Input 625 mL out documented at 0. General: The patient is lying in bed, appears lethargic. Is not responsive to verbal stimuli and unable to answer any questions. She is minimally responsive to painful stimuli. HEENT: Normocephalic, atraumatic. Moist mucous membranes. Neck is supple. Trachea is midline. No palpable adenopathy. Cardiovascular: Regular rate and rhythm. Normal S1, S2. Systolic murmur auscultated. Respiratory: Coarse breath sounds with a few occasional scattered rhonchi. No significant wheezing noted. Abdomen: Soft, appears mildly distended but is nontender. Extremities: No lower extremity edema in the right lower extremity. Left leg is status post below knee amputation. Left upper extremity has AV fistula with a mild thrill noted. Bilateral lower extremity wounds have dressings in place which are clean, dry and intact. LABORATORY DATA: WBC 64.4, hemoglobin 7.4, platelets 82. Chemistry: Sodium is 139, potassium 6.0, chloride is 102, bicarbonate is 10, BUN 57, creatinine is 6.50, glucose is 109, lactic acid increasing at 11.2, phosphorus 11.9, AST and ALT increasing to 546 and 251, alkaline phosphatase 229, bilirubin is normal. Ammonia level increased to 33, albumin is 2.2. ABG this morning: pH 6.984, pCO2 of 27.6, pCO2 of 129. Microbiology: Blood culture from 10/19/2019 showed no growth to date. IMAGING STUDIES: CT abdomen and pelvis 10/19/[address] in the liver. There is mild to moderate abdominal ascites noted. There is some improvement in the previously noted subcutaneous edema. There is cholelithiasis and renal atrophy. In the lungs, there is some patchy alveolar opacities in the bilateral lungs. ASSESSMENT: Mrs. Hernandez a 68-year-old female with a complicated past medical history including end stage renal disease on dialysis, peripheral vascular disease status post left below the knee amputation, insulin dependent diabetes, end-stage liver disease who presented initially with a gangrenous toe on her right foot, which was amputated. The patient has had a prolonged hospital course requiring recurrent paracenteses for her ascites, as well as on antibiotics for her Corynebacterium in the wound and later with development of Clostridium (C.) difficile colitis. The patient was noted to have increasing leukocytosis and was started on meropenem for additional broad-spectrum antibiotics. She also had a TIPS procedure placed given her recurrent ascites and was noted postprocedure to have increasing lethargy and obtundation. She was also noted to be more hypotensive and this morning the patient was found to have severe metabolic acidosis secondary to a lactic acidosis likely from septic shock. She was intubated and started on mechanical ventilation. She had a central line placed as well and was started on Levophed for vasopressor support. Neurologic: History of anxiety and depression. Metabolic encephalopathy due to metabolic acidosis and component hepatic encephalopathy. - The patient is now intubated and is sedated with Versed drip with as needed Versed for agitation. - We will continue with sedation to target a Liv score of 2 to 3 with daily sedation vacation if appropriate - The patient's oral medications are on hold currently for her depression / anxiety and for her neuropathy. Cardiovascular: History of heart failure with preserved ejection fraction and chronic hypotension now in the setting of her end-stage liver disease. The patient has previously been on midodrine and also requiring albumin periodically for her hypotension. She was now noted to have increasing lactic acidosis and hypotension likely due to septic shock. Given her end-stage renal and liver disease, she was not given additional fluid boluses but was transfused two units of PRBC. She was started on vasopressor support with Levophed through a right IJ triple lumen, which was placed 10/20/2019. - We will continue Levophed to target a MAP above 65. - We will followup repeat lactic acid. Pulmonary: The patient was intubated for acute respiratory failure in the setting of her severe metabolic acidosis and septic shock. She was started on mechanical ventilation initially with a higher respiratory rate to help with some respiratory compensation for her acidosis, which she was doing ineffectively previously. - The patient's chest x-ray was showing some increased opacity in the right lung, possible pneumonia. - She is currently on PRVC with settings of 380 / 27 / 50% FIO2 and a PEEP of 5. We will repeat ABG after intubation, and she will need daily ABGs while intubated. - We will order chest x-rays daily while intubated. - We will start vent bundle care, including head of bed elevation and chlorhexidine mouthwash. Infectious disease: The patient initially presented with infected gangrenous right toe, as well as with a sacral wound and possible cellulitis. She had wound cultures positive for Corynebacterium and was initially on Zyvox. She then developed C diff colitis and was started on oral vancomycin. The patient was noted have increasing leukocytosis and antibiotics were broadened to meropenem. The patient's chest x-ray shows possible infiltrate and there is question of pneumonia. - The patient's blood cultures yesterday were no growth to date. We will check a sputum culture today and continue with broad-spectrum antibiotics with the Zyvox, meropenem. Continue oral vancomycin for C diff colitis. - will add levaquin for double pseudomonal coverage given septic shock. if no improvement, consider adding antifungal coverage. - We will check a procalcitonin and continue to trend. Infectious disease has been consulted and appreciate their recommendations. Gastrointestinal: History of end-stage liver disease with recurrent ascites requiring paracentesis in the past and now status post TIPS procedure 10/18/2019. The patient with worsening mental status likely in the setting of her metabolic acidosis, as well as possibly from hepatic encephalopathy given her recent TIPS procedure. The patient's ammonia level has been increasing. - Continue with lactulose for possible hepatic encephalopathy. - The patient's last CT abdomen and pelvis showed some mild to moderate ascites but improvement in her subcutaneous edema in the abdomen. - The patient was noted to have transaminitis likely in the setting of shock liver. She also has lactic acidosis, which continues to increase likely initially from her septic shock and then compounded by her liver failure, as well as renal failure. - The patient has some mild hypoglycemia, likely in the setting of sepsis, as well as from her end-stage liver disease. - We will continue to monitor liver function tests. She does not have any evidence of increased bilirubin and while she does have gallstones, there was no evidence of acute cholecystitis on her recent imaging. Renal. The patient has a history of ESRD on hemodialysis via the left upper arm AV fistula. Patient has worsening metabolic acidosis secondary to lactic acidosis, which is compounded by her end-stage liver and renal disease. Appreciate nephrology consult and recommendations. She will be planned for hemodialysis today if her blood pressure tolerates while on the Levophed. - The patient was hyperkalemic which should improve with dialysis. We will followup repeat chemistry after dialysis. - The patient was getting as needed bicarbonate for her severe acidosis. We will continue to monitor her ABG post dialysis for her acid base status. - She does have secondary hyperparathyroidism. Her calcitriol will be discontinued for now. She does also have hyperphosphatemia but her phosphorus binders are being discontinued for now. - The patient has hypothyroidism. Her oral levothyroxine is being changed IV levothyroxine as per renal. - She also has diabetes and has been hypoglycemic. We will continue to monitor her fingerstick glucose and she may need initiation of D5 fluids for her glucose Hematology: History of chronic thrombocytopenia likely in the setting of her end-stage liver disease. History of chronic anemia likely due to her end-stage renal disease. The patient's hemoglobin has been trending down slowly and she was ordered for 2 units of packed red blood cells as per renal today. - We will continue to monitor her platelets. She does not appear to have any active bleeding at this time and so would hold off on any platelet transfusion unless signs of active bleeding or platelets absolute count below 20,000. Deep vein thrombosis (DVT) prophylaxis: Thromboembolic compression stockings (TEDS) and SCDs. CODE STATUS: FULL CODE. The patient's daughter has been informed of her poor prognosis given her multiple significant medical comorbidities and septic shock. The patient's family wishes to continue with aggressive measures at this time. Total critical care time spent, not including any procedures, approximately 2 hours and 45 minutes. MTDD
[2019-10-20 15:55] LABS: HEMATOCRIT 42.9 % (36.0-47.0); MEAN CORPUSCULAR HEMOGLOBIN 28.6 pg (27.0-33.0); MEAN CORPUSCULAR HGB CONC 29.8 g/dl (32.0-36.5); MEAN CORPUSCULAR VOLUME 95.8 fl (80.0-96.0); PLATELET COUNT, AUTOMATED 131 10^3/uL (150-450); RED BLOOD COUNT 4.48 10^6/uL (4.00-5.40)
[2019-10-20] MEDS ORDERED: MEROPENEM INJ 500 MG in IV 1 EA IV SCH (16:00)
[2019-10-20 16:05] LABS: HEMOGLOBIN 12.8 g/dl (12.0-15.5); WHITE BLOOD COUNT 82.9 10^3/uL (4.0-10.0)
[2019-10-20 16:28] LABS: CALCIUM LEVEL 8.4 MG/DL (8.8-10.2); CREATININE FOR GFR 1.79 MG/DL (0.55-1.30); GLOMERULAR FILTRATION RATE 29.8 (>39); POTASSIUM SERUM 2.8 MEQ/L (3.5-5.1)
[2019-10-20] MEDS: DEXTROSE 50% 50 ML SYRINGE IV PRN (18:25)
[2019-10-20] MEDS: LINEZOLID 600 MG in IV 1 EA IV SCH (18:29)
[2019-10-20 18:59] LABS: CALCIUM LEVEL 7.8 MG/DL (8.8-10.2); CREATININE FOR GFR 5.6 MG/DL (0.55-1.30)
[2019-10-20] MEDS ORDERED: LevoFLOXacin IV 750 MG in IV 1 EA IV ONE (19:00)
[2019-10-20] MEDS ORDERED: D5W 1,000 ML IV SCH (19:00)
[2019-10-20 19:18] LABS: VENOUS BASE EXCESS -26.4 (-2.0-2.0); VENOUS HCO3 4.4 MEQ/L (23.0-27.0); VENOUS O2 SATURATION 91.6 % (60.0-80.0); VENOUS PARTIAL PRESSURE CO2 21.4 mmHg (38.0-50.0); VENOUS PARTIAL PRESSURE O2 88.8 mmHg (30.0-50.0); VENOUS PH 6.935 UNITS (7.330-7.430); VENOUS STANDARD HCO3 5.8 MEQ/L; VENOUS TOTAL CO2 5.1 MEQ/L (24.0-28.0)
[2019-10-20 19:33] LABS: ALBUMIN 2.5 GM/DL (3.2-5.2); BILIRUBIN,DIRECT 0.4 MG/DL (0.0-0.2); BILIRUBIN,TOTAL 0.8 MG/DL (0.2-1.0); TOTAL PROTEIN 5.5 GM/DL (6.4-8.2)
[2019-10-20] MEDS: oxyCODONE 5MG TAB PO PRN (23:49)
[2019-10-21] VITALS (28 sets, daily range): BP systolic 69–115; BP diastolic 44–58
[2019-10-21 04:05] LABS: HEMATOCRIT 35.5 % (36.0-47.0); MEAN CORPUSCULAR HEMOGLOBIN 28.6 pg (27.0-33.0); MEAN CORPUSCULAR HGB CONC 26.8 g/dl (32.0-36.5); MEAN CORPUSCULAR VOLUME 106.9 fl (80.0-96.0); PLATELET COUNT, AUTOMATED 106 10^3/uL (150-450); RED BLOOD COUNT 3.32 10^6/uL (4.00-5.40)
[2019-10-21 04:07] LABS: WHITE BLOOD COUNT 69.8 10^3/uL (4.0-10.0)
[2019-10-21 04:09] LABS: HEMOGLOBIN 9.5 g/dl (12.0-15.5)
[2019-10-21 05:01] LABS: ALBUMIN 2.2 GM/DL (3.2-5.2); BILIRUBIN,TOTAL 0.6 MG/DL (0.2-1.0); CALCIUM LEVEL 7.6 MG/DL (8.8-10.2); CREATININE FOR GFR 6.27 MG/DL (0.55-1.30); MAGNESIUM LEVEL 2.6 MG/DL (1.8-2.4); PHOSPHORUS LEVEL 13.7 MG/DL (2.5-4.9); POTASSIUM SERUM 5.8 MEQ/L (3.5-5.1); TOTAL PROTEIN 5.6 GM/DL (6.4-8.2)
[2019-10-21] MEDS: VANCOMYCIN ORAL SOL 250MG/5ML ORAL SYRINGE PO SCH (05:13)
[2019-10-21] MEDS: LINEZOLID 600 MG in IV 1 EA IV SCH (05:13)
[2019-10-21 05:53] LABS: ABG BASE EXCESS -32.9 (-2.0-2.0); ABG HCO3 2.1 MEQ/L (22.0-26.0); ABG O2 SATURATION 96.7 % (95.0-99.0); ABG PARTIAL PRESSURE O2 143.6 mmHg (75.0-100.0); ABG STANDARD HCO3 2.4 MEQ/L (22.0-26.0); ABG TOTAL CO2 2.7 MEQ/L (23.0-31.0)
[2019-10-21 05:55] LABS: ABG pH (ARTERIAL) 6.702 UNITS (7.350-7.450)
[2019-10-21 05:56] LABS: ABG PARTIAL PRESSURE CO2 17.5 mmHg (35.0-45.0)
[2019-10-21] MEDS ORDERED: LEVOTHYROXINE 100 MCG (0.1MG) VIAL IV SCH (06:00)
[2019-10-21] MEDS ORDERED: SODIUM BICARBONATE 8.4% INJ 50 ML SYRINGE IV STA (06:02)
[2019-10-21] MEDS ORDERED: SODIUM BICARBONATE 150 MEQ in D5W 1,000 ML IV SCH (06:15)
[2019-10-21 07:26] LABS: ABG BASE EXCESS -29.5 (-2.0-2.0); ABG HCO3 3.5 MEQ/L (22.0-26.0); ABG O2 SATURATION 99.5 % (95.0-99.0); ABG PARTIAL PRESSURE CO2 22.1 mmHg (35.0-45.0); ABG PARTIAL PRESSURE O2 335.6 mmHg (75.0-100.0); ABG TOTAL CO2 4.1 MEQ/L (23.0-31.0)
[2019-10-21 07:29] LABS: ABG pH (ARTERIAL) 6.812 UNITS (7.350-7.450)
[2019-10-21 07:49] LABS: BILIRUBIN,TOTAL 0.7 MG/DL (0.2-1.0); CALCIUM LEVEL 7.6 MG/DL (8.8-10.2); CREATININE FOR GFR 6.29 MG/DL (0.55-1.30); MAGNESIUM LEVEL 2.7 MG/DL (1.8-2.4); POTASSIUM SERUM 5.7 MEQ/L (3.5-5.1)
--- NOTE | 2019-10-21 10:21 | REP ---
REASON: Followup. COMPARISON: Multiple, the latest 10/20/2019. The tubes and lines are unchanged. The technique utilized in obtaining the radiograph has magnified the cardiac silhouette and accentuated the interstitial markings. The cardiomediastinal silhouette is unchanged. The cardiac silhouette is again magnified by technique. Mild cardiomegaly cannot be ruled out and, in fact, is suspected. There are no new abnormal lung field opacities. There is no change in the osseous structures. IMPRESSION: No change. Electronically Signed by Gómez Saleh DO 10/21/2019 11:42 A
[2019-10-21] MEDS ORDERED: MORPHINE 2 MG/ML 1ML VIAL (J2270) As Ordered ONE (10:36)
[2019-10-21] MEDS: MORPHINE 2 MG/ML 1ML VIAL (J2270) IV PRN ×2 (10:49→13:24)
[2019-10-21] MEDS ORDERED: ATROPINE SULF 1MG/10ML SYRINGE (J0461) ONE (11:34)
[2019-10-21] MEDS ORDERED: SODIUM BICARBONATE 8.4% INJ 50MEQ 50 ML VIAL ONE (11:34)
[2019-10-21] MEDS ORDERED: EPINEPHrine 1MG/10ML SYRINGE 1.5IN ONE (11:34)
--- NOTE | 2019-10-21 13:03 | CCN ---
DATE: 10/21/2019 The patient is seen and examined this morning during bedside rounds. This morning, the patient was noted to be more acidotic on her labs and her repeat ABG. She was given 2 amps IV of bicarbonate and started on a bicarb drip. The patient was then noted earlier this morning before 07:00 a.m. to go into pulseless electrical activity arrest. The patient had CPR initiated and received 1 ampule of bicarbonate, as well as one epi during resuscitation attempts. She had return of spontaneous circulation (ROSC) achieved after approximately 10 minutes. The patient was still on Levophed during this. She had been weaned down to 7 mcg/kg per minute from yesterday when she was up to approximately 17 mcg/kg per minute. Since the arrest, the patient's bicarb infusion was increased and her Levophed requirements have also increased. She is minimally responsive currently but is overbreathing on the ventilator. The patient's daughters were here at bedside early in the morning. There was discussion with the daughters and the hospitalist about goals of care. The patient was made DO NOT RESUSCITATE with some potential discussion of comfort measures only once the rest of the extended family has arrived. PHYSICAL EXAMINATION: Temperature 98.8, pulse was 146, now 110s, respiration in the 30s, blood pressure is 95/53, oxygen sat 100%. General: The patient is lying in bed, is minimally responsive to any painful stimuli. HEENT: Normocephalic, atraumatic. Pupils are nonresponsive. Moist mucous membranes. Neck is supple. Trachea is midline. No palpable adenopathy. Cardiovascular: Tachycardiac, regular rate and rhythm. Normal S1, S2. Systolic murmur auscultated. Respiratory: Coarse breath sounds noted bilaterally with scattered rhonchi. No wheezing. Abdomen is soft, mildly distended. Extremities: There is no lower extremity edema in the right lower extremity. Left leg is status post below knee amputation. Left upper extremity has AV fistula. LABORATORY DATA: WBC 69.8, hemoglobin 9.5, platelets 106. Chemistry: Sodium is 140, potassium 5.7, chloride 92, bicarb 6, BUN 56, creatinine 6.29, glucose is 234. AST and ALT increasing to 1330 and 486, alkaline phosphatase 307, lactic acid increasing to 29, was 7 yesterday. ABG: pH 6.702, pCO2 of 70.5, pO2 of 111. Microbiology: Sputum culture positive for yeast like organisms. IMAGING STUDIES: Chest x-ray shows ET tube in position, right IJ triple lumen line in place in satisfactory position. Increased infiltrate in the right lung and suggestion of rib fractures now in the ribs bilaterally. ASSESSMENT AND PLAN: Ms. 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 She has had a prolonged hospital course requiring recurrent paracentesis for ascites, as well as being on broad-spectrum antibiotics for Corynebacterium in the wound and later with development of Clostridium (C.) difficile colitis. The patient is also status post TIPS procedure during this admission for her recurrent ascites. Postprocedure, she was noted have increasing lethargy and obtundation. She was also noted to be hypotensive with increasing metabolic acidosis secondary to lactic acidosis from septic shock. The patient was intubated on 10/20 and started on mechanical ventilation. She also had a central line placed and was started on Levophed for vasopressor support. This morning, the patient was noted to have worsening acidosis after her hemodialysis session yesterday. She had a cardiac arrest with ROSC achieved after approximately 10 minutes. Neurologic: Metabolic encephalopathy due to her metabolic acidosis with a component of likely hepatic encephalopathy. - The patient, post arrest, is less responsive and pupils are also non responsive. She does appear to be overbreathing on the ventilator, however. She is still sedated currently with a Versed drip and with Versed as needed. - Continue sedation to tolerate a Liv of 3. Cardiovascular: History of heart failure with preserved emergency room and chronic hypertension in the setting of her end-stage liver disease. - The patient was noted have increasing lactic acidosis and hypotension likely due to septic shock. Given her end-stage renal and liver disease, she was not given additional fluid boluses but was transfused 2 units of packed red blood cells to help with her blood pressure, as well as with her anemia. She is on Levophed through a right IJ triple lumen which is placed on 10/20/2019. - The patient was requiring less Levophed yesterday and her lactic acid had improved post dialysis. However, she was developing increasing lactic acidosis and again her lactic acid this morning was 29. - The patient also had a cardiac arrest earlier this morning with ROSC achieved after approximately 10 minutes. She is still on Levophed and since her arrest has required higher doses of Levophed to maintain a MAP above 65. - We will continue with Levophed to target a MAP above 65. Suspect her lactic acidosis is still high from her severe sepsis and also in the setting of her renal failure and worsening liver failure. Pulmonary: The patient was intubated for acute respiratory failure in the setting of her severe metabolic acidosis and septic shock. She was started on mechanical ventilation. - The patient's chest x-ray this morning does show some increased infiltrate in the right lung, possibly pneumonia. - Continue the patient on ventilator with PRVC with settings of 380 / 25 / 100% and 5. We will continue wean down her FIO2 as tolerated. - The patient's ABG continues to show severe metabolic acidosis, which we are attempting to help compensate respiratory [place]; however, with increasing respiratory rate the patient is breath stacking and she is already overbreathing on the ventilator. - Continue with chest x-rays daily while intubated. - Continue with daily ABGs. - Continue vent bundle care with head of bed elevation and chlorhexidine mouthwash. Infectious disease: The patient initially presented with infected gangrenous right toe as well with the sacral wound and possible cellulitis. She is status post right toe amputation and she had wound cultures positive initially for Corynebacterium. She was on Zyvox for antibiotics and then developed Clostridium (C.) difficile colitis and was started on oral vancomycin. She continued to have increasing leukocytosis and her antibiotics were broadened to meropenem. - The patient was started on Levaquin for possible double pseudomonal coverage given her septic shock. Her sputum culture today did show some yeast organisms and there was consideration of adding antifungal coverage. However, given her poor prognosis and with some concern for comfort measures only, which is planned for later today after the rest of her family arrives, we will hold off on the antifungal coverage. Her leukocytosis is slowly trending down now. - Continue with the current antibiotics with the Zyvox, meropenem and oral vancomycin. - We will followup her procalcitonin. Gastrointestinal: History of end-stage liver disease with recurrent ascites now status post TIPS procedure on 10/18/2019. The patient is noted to have increasing transaminitis, likely shock liver. She also has increasing lactic acidosis secondary to her septic shock compounded by her liver failure and renal failure. - The patient was started on trophic tube feeds yesterday. The tube feeds were held after her cardiac arrest. - The patient was also noted to be hypoglycemic early in the morning and was started on D5. The D5 has been on hold as her fingerstick glucose has been increasing. - Continue with fingerstick glucose checks every 2 hours. - The patient continues to have increasing transaminitis from her shock liver. Her bilirubin is still within normal limits and while she does have gallstones, there is no evidence of acute cholecystitis on her recent imaging. Renal: The patient has history of end stage renal disease on hemodialysis via the left upper arm AV fistula. She was noted to have worsening metabolic acidosis secondary to lactic acidosis compounded by her liver and renal disease. The patient received a session of hemodialysis yesterday, which did improve her metabolic acidosis and improve her lactic acidosis. However, after dialysis, she was noted have increasing lactic acidosis again and metabolic acidosis. - The patient was started on bicarbonate drip with 150 mEq, which is increased to 100 mL per hour after her cardiac arrest. - The patient is requiring increasing amounts of Levophed and dialysis is on hold. She was also noted to be hyperkalemic secondary likely to her acidosis and renal disease. - The patient has hypothyroidism and is on IV Synthroid. - The patient has a history of diabetes and was started on D5W yesterday for hypoglycemia. Her D5W is on hold as she has been hyperglycemic this morning. Hematology: History of chronic thrombocytopenia likely in the setting of her end-stage liver disease. History of chronic anemia likely due to her end-stage renal disease. The patient was status post 2 units of PRBCs yesterday with the appropriate response. The patient has not required any platelet transfusion as her platelets have remained above 20,000 and there are no signs of active bleeding currently. Deep vein thrombosis (DVT) prophylaxis with TEDs and sequential compression device (SCD). CODE STATUS: DO NOT RESUSCITATE. The patient's family has been informed of her extremely poor prognosis given her worsening septic shock and metabolic acidosis with the inability to dialyze her at this time. She also had a recent cardiac arrest this morning and they are aware that her prognosis has worsened even further. They have changed her code status to DNR and they are planning comfort measures only with palliative extubation once the rest of her extended family has arrived today. Total critical care time spent, not including procedures, approximately 45 minutes. SHAAN
--- NOTE | 2019-10-21 16:25 | ECGEPIP ---
[facility] Test Date: 2019-10-21 Pat Name: GUI JEAN Department: Room: [place] [address] Gender: Female Awning Finisher: ANDRES : 1950 Requested By: SHAILA LICEA Order Number: [id number] Reading MD: Enrrique Saini Measurements Intervals [place] Rate: 103 P: DE: 0 QRS: 111 QRSD: 157 T: -53 QT: 335 QTc: 439 Interpretive Statements Ectopic atrial rhythm with Frequent blocked PACs first-degree AV block, Episodic QRS aberrancy. RIGHT BUNDLE BRANCH BLOCK LEFT POSTERIOR FASCICULAR BLOCK SEPTAL MYOCARDIAL INFARCTION, OF INDETERMINATE AGE MODERATE T-WAVE ABNORMALITY, CONSIDER INFERIOR ISCHEMIA Electronically Signed on 10-21-2019 16:25:32 EST by Enrrique Saini
--- NOTE | 2019-10-21 19:34 | DS.PDOC ---
Discharge Summary General Date of Admission Oct 03, 2019 at 12:49 Date of Discharge 10/21/2019 Attending Physician: MERLENE GAMEZ MD Discharge Summary PROCEDURES PERFORMED DURING STAY: None. ADMITTING DIAGNOSES: 1. Right foot osteomyelitis. DISCHARGE DIAGNOSES: 1. Right foot osteomyelitis, cirrhosis, end-stage renal disease, C. difficile, TIPS procedure. COMPLICATIONS/CHIEF COMPLAINT: Gangrenous Toe. HISTORY OF PRESENT ILLNESS: 68-year-old female with an extensive medical history including end-stage renal disease on hemodialysis, cirrhosis, multiple wounds was admitted for right foot osteomyelitis and lower back wound. She underwent reamputation of the first toe on right foot by podiatry, operating room cultures grew Corynebacterium, she was treated with Zyvox. She subsequently developed C. difficile, treated with oral vancomycin. During her hospitalization. She un derwent hemodialysis as per nephrology, required multiple paracentesis with removal of 9+ liters of fluid. She underwent TIPS procedure a few days ago, monitored in the ICU setting with subsequent decline in her overall health afterwards. She developed significant lactic acidosis, hypotension and altered mentation requiring mechanical ventilation and vasopressor use for adequate perfusion. Her overall health continued to decline despite these measures, lactic acid level continued to rise as high as 40 despite undergoing hemodialysis, pH down to 6.8 despite hemodialysis, bicarbonate pushes and drip. Long discussion was had with the family, all 3 daughters at bedside, who eventually decided to make the patient comfort measures only. Patient's norepinephrine and bicarbonate drips were discontinued, she was extubated and she passed a few hours later. HOSPITAL COURSE: As above. DISPOSITION: . TIME SPENT ON DISCHARGE: Greater than 35 minutes. Vital Signs/I&Os Vital Signs Date Time Temp Pulse Resp B/P (MAP) Pulse Ox O2 Delivery O2 Flow Rate FiO2 10/21/19 14:30 0 10/21/19 13:24 High Flow Cannula 10/21/19 12:00 3.0 10/21/19 12:00 100 10/21/19 10:20 34 94/54 (71) 100 10/21/19 04:00 98.8 I&O- Last 24 Hours up to 6 AM 10/21/19 06:00 Intake Total 2385.6 ml Output Total 1350 ml Balance 1035.6 ml Laboratory Data Labs 24H Laboratory Tests 2 10/20/19 19:55: Bedside Glucose (Misc Panel) 130H 10/20/19 21:57: Bedside Glucose (Misc Panel) 171H 10/20/19 23:54: Bedside Glucose (Misc Panel) 197H 10/21/19 01:52: Bedside Glucose (Misc Panel) 185H 10/21/19 04:00: Nucleated Red Blood Cells % (auto) 0.2H, Bedside Glucose (Misc Panel) 179H, Anion Gap 42H, Glomerular Filtration Rate 7.0L, Calcium Level 7.6L, Phosphorus Level 13.7H, Magnesium Level 2.6H, Total Bilirubin 0.6, Aspartate Amino Transf (AST/SGOT) 939H, Alanine Aminotransferase (ALT/SGPT) 406H, Alkaline Phosphatase 331H, Total Protein 5.6L, Albumin 2.2L, Albumin/Globulin Ratio 0.65L 10/21/19 05:34: Blood Gas Bicarbonate Standard 2.4L, Arterial Blood pH 6.702*L, Arterial Blood Partial Pressure CO2 17.5*L, Arterial Blood Partial Pressure O2 143.6H, Arterial Blood Total CO2 2.7L, Arterial Blood HCO3 2.1L, Arterial Blood Base Excess - 32.9L, Arterial Blood Oxygen Saturation 96.7 10/21/19 05:56: Bedside Glucose (Misc Panel) 223H 10/21/19 06:10: Lactic Acid Level 29.0*H 10/21/19 07:12: Anion Gap 42H, Glomerular Filtration Rate 7.0L, Calcium Level 7.6L, Magnesium Level 2.7H, Total Bilirubin 0.7, Aspartate Amino Transf (AST/SGOT) 1330H, Alanine Aminotransferase (ALT/SGPT) 486H, Alkaline Phosphatase 307H, Total Protein 5.0L, Albumin 2.0L, Albumin/Globulin Ratio 0.67L 10/21/19 07:20: Blood Gas Bicarbonate Standard 4.0L, Arterial Blood pH 6.812*L, Arterial Blood Partial Pressure CO2 22.1L, Arterial Blood Partial Pressure O2 335.6H, Arterial Blood Total CO2 4.1L, Arterial Blood HCO3 3.5L, Arterial Blood Base Excess - 29.5L, Arterial Blood Oxygen Saturation 99.5H 10/21/19 10:03: Bedside Glucose (Misc Panel) 240H CBC/BMP Laboratory Tests 10/21/19 04:00 10/21/19 07:12 FSBS Laboratory Tests Test 10/20/19 19:55 10/20/19 21:57 10/20/19 23:54 10/21/19 01:52 Range/Units Bedside Glucose (Misc Panel) 130 171 197 185 83-110 MG/DL Test 10/21/19 04:00 10/21/19 05:56 10/21/19 10:03 Range/Units Bedside Glucose (Misc Panel) 179 223 240 83-110 MG/DL Microbiology Microbiology 10/20/19 Gram Stain - Final, Resulted 10/20/19 Sputum Culture - Preliminary, Resulted Yeast Like Organism 10/19/19 Blood Culture - Preliminary, Resulted No Growth after 48 hours. All Specime... 10/19/19 Blood Culture - Preliminary, Resulted No Growth after 48 hours. All Specime... Discharge Medications Scheduled Calcium Carbonate (Oyster Shell Calcium) 500 Mg Tablet, 500 MG PO DAILY, (Reported) Duloxetine Hcl (Duloxetine HCl) 30 Mg Cap, 30 MG PO DAILY, (Reported) Gabapentin (Gabapentin) 100 Mg Capsule, 300 MG PO QHS, (Reported) Insulin Detemir (Levemir) 100 Unit/1 Ml Vial, 10 UNITS SC BID, (Reported) Insulin Lispro (Humalog) 100 Unit/Ml Inj, 1 DOSE SC AC, (Reported) PER SLIDING SCALE Levothyroxine Sodium (Synthroid) 125 Mcg Tab, 125 MCG PO DAILY, (Reported) Midodrine HCl (Midodrine HCl) 5 Mg Tablet, 5 MG PO TID, (Reported) Mineral Oil/Petrolatum,White (Hydrocerin Cream) 113 Gm Cream..g., 1 DOSE TOP DAILY, (Reported) APPLIES TO RIGHT LOWER EXTREMITIES Pantoprazole Sodium (Pantoprazole Sodium) 40 Mg Tab, 40 MG PO DAILY, (Reported) Ropinirole HCl (Ropinirole HCl) 2 Mg Tab, 6 MG PO BID, (Reported) Silver Sulfadiazine (Ssd) 50 Gm Cream..g., 1 DOSE EXT DAILY, (Reported) USED ON BIG TOE OF RIGHT FOOT Simvastatin (Simvastatin) 20 Mg Tab, 20 MG PO QHS, (Reported) Trazodone HCl (Trazodone HCl) 100 Mg Tablet, 200 MG PO QHS, (Reported) Scheduled PRN Calcium Carbonate (Tums) 500 Mg Chw, 1,000 MG PO PC PRN for HEARTBURN/INDIGESTION, (Reported) Diphenhydramine HCl (Diphenhydramine HCl) 25 Mg Capsule, 25 MG PO Q4H PRN for ITCHING, (Reported) Oxycodone HCl (Oxycodone HCl) 5 Mg Tablet, 2.5 MG PO Q12H PRN for PAIN, (Report ed) Patiromer Calcium Sorbitex (Veltassa) 8.4 Gm Pow, 8.4 GM PO ASDIRECTED PRN for MISSING DIALYSIS, (Reported) Allergies Coded Allergies: heparin (Verified Adverse Reaction, Intermediate, Thrombocytopenia, 08/13/19) HIT Ab + 08/10/19 pregabalin (Verified Adverse Reaction, Intermediate, "feeling weird", SI thoughts., 06/07/19) vancomycin (Verified Adverse Reaction, Mild, DIARRHEA, 06/07/19) MERLENE GAMEZ MD Oct 21, 2019 19:34
--- NOTE | 2019-10-21 21:35 | IPN ---
DATE: 10/21/2019 SUBJECTIVE: The patient was seen and examined at the bedside today morning in the intensive care unit (ICU). Last 24-hour events were noted. The patient was dialyzed at the bedside yesterday. She was also given blood during the hemodialysis. She tolerated the dialysis procedure. However, the patient continues to be hypotensive and in shock requiring pressors. She is currently on Levophed at 15 mcg. She is also extremely acidotic and her acidosis did not improve with dialysis yesterday. She continues to have serum pH less than 7 persistently, very severe lactic acidosis with a lactate of 29 on the labs done today morning. She has been started on bicarb drip by the primary team. She continues to be intubated and sedated. The patient had episode of cardiac arrest today morning after bradycardia. One amp of epinephrine was done. She was tachycardiac after return of spontaneous circulation; and after discussion with the family members, ICU team made the patient DO NOT RESUSCITATE only, but with continuation of care. All the family members were present at the bedside. OBJECTIVE: Vital signs: Temperature is 98.8 degrees Fahrenheit, blood pressure is 95/53, pulse 93, respiratory of 33, saturating 100% on the vent with 30% FiO2. Intake and output: Ultrafiltration with hemodialysis yesterday was 1 liter. Gastric drainage was 300 mL. Weight in the bed scale is stable at 65.1 kg. PHYSICAL EXAMINATION: General: The patient is intubated, sedated, breathing over the vent at this time. Head and neck exam: Eyes are closed, very sluggish and minimal response to light in the pupils. She has an OGT and an endotracheal tube neck is supple. There is no JVD. Cardiovascular S1-S2, tachycardia, 1+ edema of the right lower extremity. Respiratory: Transmitted breath sounds from the vent, otherwise no active rales or rhonchi bilaterally. Abdomen: Soft, positive bowel sounds. Nontender. Minimal amount of ascites with dullness to percussion in the flank. Genitourinary: Bladder is not palpable. Musculoskeletal: She has left below-knee amputation site covered with a dressing and right foot is covered with a dressing. RACING MANAGER: The patient is sedated, eyes closed, pupils minimally responsive. I could not appreciate doll's eye reflex. LABORATORY REVIEW: Complete blood count (CBC) showed a WBC of 69.8, hemoglobin is 9.5, platelets of 106. Arterial blood gas (ABG) done today morning showed a pH of 6.8, pCO2 of 22, pO2 of 335, bicarb is 3.5. O2 saturation is 99.5%. Basic metabolic panel (BMP) done today morning showed sodium 140, potassium 5.7, chloride 92, bicarb is 6, anion gap is 42, BUN 56, creatinine is 6.2, lactic acid was 29, calcium 7.6, magnesium 2.7, AST is 1330, ALT is 486, alkaline phosphatase is 307, total bilirubin is 0.7, albumin is 2. Microbiology: Sputum showed a yeastlike organism. Blood cultures from October 19 are negative so far Imaging: A chest x-ray was done today morning, which showed mild cardiomegaly. No new abnormal lung field opacities and no change from yesterday. CURRENT INPATIENT MEDICATIONS: The patient's medications were all reviewed by me. She is being sedated with Versed. She is on Levophed. She is also on sodium bicarbonate infusion at 100 mL an hour. She was given a dose of Levaquin 750 mg IV yesterday. She continues to be on Zyvox and meropenem and she was given sodium bicarbonate IV one ampule at night time and 2 ampules in the morning. ASSESSMENT: 68-year-old female with history of end-stage renal disease on hemodialysis, history of cirrhosis with recurrent ascites, s/p TIPS Procedure this admission,chronic failure to thrive, history of left below-knee amputation admitted to ICU with septic shock, multiorgan failure, vent dependent respiratory failure. ASSESSMENT: 1. End-stage renal disease. 2. Septic shock and multiorgan failure. 3. High anion gap metabolic acidosis and lactic acidosis. 4. Hyperkalemia. 5. Shock liver. 6. Hepatic encephalopathy. 7.Respiratory Failure PLAN: I discussed the patient's current medical status, including multiple comorbidities as mentioned above and I explained to the patient's three daughters at the bedside today morning that at this point further medical care is futile, is imminent. The patient's leukocytosis, lactic acidosis is getting worse. The patient's daughters finally agreed to make the patient comfort measures only. I discussed the plan of care with the hospitalist, Dr. Clinton Moy and with the critical care attending, Dr. Rosalia Kevin. Comfort measures only was signed by the patient's daughter. The form was placed in the chart. The patient will not get any more hemodialysis. All the medications will be stopped. The patient will be extubated. She will be given morphine for comfort as needed. Nephrology service is going to sign off at this moment. SHAAN
[2019-10-22] MEDS ORDERED: LevoFLOXacin IV 500 MG in IV 1 EA IV SCH (21:00)
== END 2019-10-21 17:05 | disposition expired | DRG 270 ==
LOC: M ED 10:50 → EDBD 10:50 → M ED INP 12:49 → M MS5PR 18:19 → M ICU 10-18 14:19
PROVIDERS: ADMIT Family Medicine; ATTEND Internal Medicine
PROC: 0W9J3ZZ Drainage of Pelvic Cavity, Percutaneous Approach (ICD-10-PCS; 2019-10-04)
PROC: 0Y6M0Z4 Detachment at Right Foot, Complete 1st Ray, Open Approach (ICD-10-PCS; 2019-10-05)
PROC: 5A1D70Z Performance of Urinary Filtration, Intermittent, Less than 6 Hours Per Day (ICD-10-PCS; 2019-10-10)
PROC: 0W9J3ZZ Drainage of Pelvic Cavity, Percutaneous Approach (ICD-10-PCS; 2019-10-15)
PROC: 06183J4 Bypass Portal Vein to Hepatic Vein with Synthetic Substitute, Percutaneous Approach (ICD-10-PCS; principal; 2019-10-18 10:00)
PROC: 5A1945Z Respiratory Ventilation, 24-96 Consecutive Hours (ICD-10-PCS; 2019-10-20)
PROC: 30233N1 Transfusion of Nonautologous Red Blood Cells into Peripheral Vein, Percutaneous Approach (ICD-10-PCS; 2019-10-20)
DX: E11.52 Type 2 diabetes mellitus with diabetic peripheral angiopathy with gangrene (principal); N18.6 End stage renal disease; I50.33 Acute on chronic diastolic (congestive) heart failure; A41.9 Sepsis, unspecified organism; R65.21 Severe sepsis with septic shock; G93.41 Metabolic encephalopathy; J18.9 Pneumonia, unspecified organism; I50.23 Acute on chronic systolic (congestive) heart failure; K72.00 Acute and subacute hepatic failure without coma; T87.44 Infection of amputation stump, left lower extremity; R18.8 Other ascites; E87.1 Hypo-osmolality and hyponatremia; K76.6 Portal hypertension; E87.2 Acidosis; M86.171 Other acute osteomyelitis, right ankle and foot; I13.2 Hypertensive heart and chronic kidney disease with heart failure and with stage 5 chronic kidney disease, or end stage renal disease; E46 Unspecified protein-calorie malnutrition; N25.81 Secondary hyperparathyroidism of renal origin; A04.72 Enterocolitis due to Clostridium difficile, not specified as recurrent; L03.312 Cellulitis of back [any part except buttock and flank]; E11.621 Type 2 diabetes mellitus with foot ulcer; E11.21 Type 2 diabetes mellitus with diabetic nephropathy; E87.5 Hyperkalemia; K74.69 Other cirrhosis of liver; Z51.5 Encounter for palliative care; Z79.4 Long term (current) use of insulin; Z79.899 Other long term (current) drug therapy; Z88.8 Allergy status to other drugs, medicaments and biological substances; G90.1 Familial dysautonomia [Riley-Day]; E03.9 Hypothyroidism, unspecified; E78.5 Hyperlipidemia, unspecified; I70.25 Atherosclerosis of native arteries of other extremities with ulceration; F32.9 Major depressive disorder, single episode, unspecified; G25.81 Restless legs syndrome; D63.1 Anemia in chronic kidney disease; Z91.19 Patient's noncompliance with other medical treatment and regimen; I95.9 Hypotension, unspecified; E83.51 Hypocalcemia; L89.159 Pressure ulcer of sacral region, unspecified stage; F41.9 Anxiety disorder, unspecified; D72.829 Elevated white blood cell count, unspecified

== ENCOUNTER → 2019-10-03 | Outpatient (REF) | payer MEDICARE | LOC: M SFHCPLAZ 17:23 | PROVIDERS: ATTEND Surgery | DX: L97.514 Non-pressure chronic ulcer of other part of right foot with necrosis of bone (principal) ==